=== PATIENT | male | born 1985 | race Caucasian/White ===

== ENCOUNTER 2020-06-11 21:10 | Inpatient (IN) | payer MEDICAID, SELFPAY ==
[2020-06-21 03:15] VITALS: BMI 19.9
[2020-06-21] MEDS: Enoxaparin Sodium 60 MG/0.6 ML SYRINGE SUBCUT (23:00)
[2020-06-22] VITALS (8 sets, daily range): BP systolic 121–166; BP diastolic 60–81; PULSE 9–114; RESP 18–93; TEMP 36.7–37; O2SAT 96–98
[2020-06-22] MEDS: ceFAZolin Sodium/Dextrose,Iso 2 GM/50 ML PIGGYBACK IV ×3 (05:10→21:46)
[2020-06-22] MEDS: Omeprazole 20 MG CAPSULE.DR PO ×2 (05:10→16:18)
[2020-06-22] MEDS: 0.9 % Sodium Chloride Flush 3 ML SYRINGE 2 ML IVFLUSH ×4 (05:12→20:26)
[2020-06-22] MEDS: Nicotine Polacrilex 2 MG GUM BUCCAL ×5 (05:20→20:17)
[2020-06-22] MEDS: traMADoL HCL 50 MG TABLET PO ×4 (05:20→22:28)
[2020-06-22 06:41] LABS: MANUAL DIFF FLAG NO
[2020-06-22 06:49] LABS: Basophils Percent Auto 0.3 % (0-2); Eosinophils Percent Auto 0.3 % (0-4); Hematocrit 33.4 % (42-52); Hemoglobin 10.7 g/dl (14.0-18.0); Imm Gran Abs Auto 0.07 X10*3/uL (0.00-0.03); Imm Gran Pct Auto 0.6 % (0.0-0.4); Lymphocytes Absolute Auto 1.7 X10*3/uL (1.2-4.9); Lymphocytes Percent Auto 14.4 % (20-40); Mean Corpuscular Hemoglobin 27.6 pg (27.0-33.0); Mean Corpuscular Volume 86.1 fL (80-98); Mean Platelet Volume 8.8 fL (9.4-12.4); Monocytes Absolute Auto 0.9 X10*3/uL (0.1-1.2); Monocytes Percent Auto 7.2 % (2-11); Neutrophils Absolute Auto 9.1 X10*3/uL (2.0-8.3); Neutrophils Percent Auto 77.2 % (45-73); Platelet Count 531 X10*3/uL (160-400); Red Blood Count 3.88 X10*6/uL (4.60-5.80); Red Cell Distribution Width 13.5 % (11.0-16.0); White Blood Count 11.7 X10*3/uL (4.8-10.8)
[2020-06-22] MEDS: Buprenorphine/Naloxone 8/2 mg FILM 1 FILM SUBLINGUAL ×2 (08:08→16:18)
[2020-06-22] MEDS: Amphetamine Mixed Salts 20 MG TABLET PO ×2 (08:08→12:35)
[2020-06-22] MEDS: buPROPion HCl XL 150 MG TAB.ER.24H PO (08:08)
[2020-06-22] MEDS: Lidocaine 4 % Patch ADH..PATCH 1 PATCH TRANSDERMA (08:08)
[2020-06-22] MEDS: Docusate Sodium 100 MG CAPSULE PO (08:08)
[2020-06-22] MEDS: Gabapentin 600 MG TABLET PO ×3 (08:08→20:17)
[2020-06-22] MEDS: Ketorolac Tromethamine 30 MG/ML VIAL IVPUSH (10:26)
[2020-06-22] MEDS: Enoxaparin Sodium 60 MG/0.6 ML SYRINGE SUBCUT ×2 (12:34→22:31)
--- NOTE | 2020-06-22 13:16 | HO.POSTANES ---
Post Anesthesia Evaluation Post Anesthesia Evaluation Vital Signs: Vital Signs Temp Pulse Resp BP Pulse Ox 06/22/20 12:00 98.2 F 97 18 136/76 97 06/22/20 08:00 98.0 F 107 H 20 134/81 96 06/22/20 04:00 98.1 F 106 H 18 121/77 96 Anesthesia: General LMA Mental Status: Awake Pain Control: Satisfactory Nausea/Vomiting: None Hydration: Adequate Anesthesia-Related Issues: No Anes. Related Issues
--- NOTE | 2020-06-22 15:07 | HO.PM.IMPN ---
Subjective Subjective Date of Service: 06/22/20 Interval History: patient seen and examined at bedside patient reported knee pain Constitutional Constitutional: Reports weakness Respiratory Respiratory: Reports no additional respiratory complaints Neurologic Neurologic: Reports weakness Physical Exam Vital Signs and I&O and Narrative: Vital Signs and I&O: Vital Signs Temp 98.2 F 06/22/20 12:00 Pulse 97 06/22/20 12:00 Resp 18 06/22/20 12:00 BP 136/76 06/22/20 12:00 Pulse Ox 97 06/22/20 12:00 Intake & Output 06/21/20 06/22/20 06/22/20 18:59 06:59 18:59 Intake Total 50 / 50 1200 / 1200 Output Total 200 / 200 2400 / 2400 Balance -150 / -150 -1200 / -1200 Urine Output (Aver age ml/kg/hr) 0.28 3.37 Intake: Intake, Oral [place] unt 1200 / 1200 Intake, IV Amoun t 50 / 50 0 / 0 ceFAZolin Sodi um/Dextrose,Iso 2 50 / 50 0 / 0 gm In 50 ml @ 100 mls/hr IV Q8H ERNA Rx#:[id number] Output: Output, Urine Am ount 200 / 200 2400 / 2400 Other: Breakfast % Eate n 100% Lunch % Eaten 100% Evening Snack % Eaten 100 Body Mass Index 19.9 Objective Data Current Medications Generic Name Dose Route Start Last Admin Trade Name Freq PRN Reason Stop Dose Admin Acetaminophen 650 mg 06/22/20 00:00 Acetaminophen 325 Mg Tablet PO Q8H PRN Pain, Moderate (Pain Scale 4-6 Amphetamine/Dextroamphetamine 20 mg 06/22/20 08:00 06/22/20 12:35 Amphetamine Mixed Salts 20 Mg Tablet PO 20 mg BID@0800,1400 ERNA Administration Buprenorphine/Naloxone 1 film 06/22/20 08:00 06/22/20 08:08 Buprenorphine/Naloxone 8/2 Mg Film SUBLINGUAL 1 film BID@0800,1700 ERNA Administration Bupropion HCl 150 mg 06/22/20 09:00 06/22/20 08:08 Bupropion Hcl Xl 150 Mg Tab.Er.24h PO 150 mg DAILY ERNA Administration Clonidine HCl 0.1 mg 06/22/20 21:00 Clonidine Hcl 0.1 Mg Tablet PO BEDTIME ERNA Docusate Sodium 100 mg 06/22/20 09:00 06/22/20 08:08 Docusate Sodium 100 Mg Capsule PO 100 mg DAILY ERNA Administration Enoxaparin Sodium 60 mg 06/22/20 00:00 06/22/20 12:34 Enoxaparin Sodium 60 Mg/0.6 Ml Syringe SUBCUT 60 mg Q12H ERNA Administration Gabapentin 600 mg 06/22/20 09:00 06/22/20 14:36 Gabapentin 600 Mg Tablet PO 600 mg TID [facility] Administration Cefazolin Sodium/Dextrose 2 gm in 50 mls @ 100 mls/hr 06/22/20 04:00 06/22/20 14:49 Ancef IV 100 mls/hr Q8H [facility] Infusion Lidocaine 1 patch 06/22/20 09:00 06/22/20 08:08 Lidocaine 4 % Patch Adh..Patch TRANSDERMA 1 patch DAILY ERNA Administration Protocol Magnesium Hydroxide 30 ml 06/22/20 00:00 Milk Of Magnesia 30 Ml Oral.Susp PO DAILY PRN Constipation Nicotine Polacrilex 2 mg 06/22/20 00:00 06/22/20 12:44 Nicotine Polacrilex 2 Mg Gum BUCCAL 2 mg Q2H PRN Administration Nicotine Cravings Omeprazole 20 mg 06/22/20 06:30 06/22/20 05:10 Omeprazole 20 Mg Capsule.Dr PO 20 mg BID@0630,1630 [facility] Administration Polyethylene Glycol 17 gm 06/22/20 09:00 06/22/20 10:25 Polyethylene Glycol 3350 17 Gm Powd.Pack PO Not Given DAILY [facility] Quetiapine Fumarate 200 mg 06/22/20 21:00 Quetiapine Fumarate 200 Mg Tablet PO BEDTIME [facility] Sodium Chloride 2 ml 06/22/20 00:00 06/22/20 14:36 0.9 % Sodium Chloride Flush 3 Ml Syringe IVFLUSH 2 ml QSHIFT [facility] Administration Tramadol HCl 50 mg 06/22/20 00:00 06/22/20 10:29 Tramadol Hcl 50 Mg Tablet PO 50 mg Q6H PRN Administration Pain, Moderate (Pain Scale 4-6 Labs CBC & Chem 7: 06/22/20 06:00 06/21/20 08:15 Labs: Laboratory Results - last 24 hr 06/19/20 06/19/20 06/21/20 05:52 05:52 08:15 MCV 86.2 MCH 27.0 MCHC 31.4 RDW RDW Coeff of [place] 14.2 Plt Count 567 H D MPV 8.3 L Immature Gran % (Auto) Neut % (Auto) Lymph % (Auto) [place] % (Auto) Eos % (Auto) Baso % (Auto) Neut # (Auto) Lymph # (Auto) [place] # (Auto) Eos # (Auto) Baso # (Auto) Abs Immat Gran (auto) Absolute Lymphs (auto) Absolute Monos (auto) Absolute Eos (auto) Absolute Basos (auto) Absolute Nucleated RBC 0.000 Nucleated RBC % (auto) 0.0 Absolute Neutrophils Smear Tech's Comments Bicarbonate 26 24 Anion Gap 11 L 13 Estimated Creat Clear 151.2 138.7 Est GFR (Non-Af Amer) > 60 > 60 Random Glucose 90 119 H Calcium 8.6 D 06/21/20 06/22/20 06/22/20 08:15 05:43 06:00 MCV 86.2 86.1 Not Rcvd MCH 27.6 27.6 Not Rcvd MCHC 32.0 32.0 Not Rcvd RDW 13.5 RDW Coeff of [place] 13.8 Not Rcvd Plt Count 609 H 531 H Not Rcvd MPV 8.6 L 8.8 L Not Rcvd Immature Gran % (Auto) 1.1 H 0.6 H Not Rcvd Neut % (Auto) 88.0 H 77.2 H Not Rcvd Lymph % (Auto) 6.5 L 14.4 L Not Rcvd [place] % (Auto) 3.9 7.2 Not Rcvd Eos % (Auto) 0.3 0.3 Not Rcvd Baso % (Auto) 0.2 0.3 Not Rcvd Neut # (Auto) 9.1 H Lymph # (Auto) 1.7 [place] # (Auto) 0.9 Eos # (Auto) 0.0 Baso # (Auto) 0.0 Abs Immat Gran (auto) 0.26 H 0.07 H Not Rcvd Absolute Lymphs (auto) 1.6 Not Rcvd Absolute Monos (auto) 1.0 Not Rcvd Absolute Eos (auto) 0.1 Not Rcvd Absolute Basos (auto) 0.1 Not Rcvd Absolute Nucleated RBC 0.000 0.000 Not Rcvd Nucleated RBC % (auto) 0.0 0.0 Not Rcvd Absolute Neutrophils 21.7 H Smear Tech's Comments VERIFIED Bicarbonate Anion Gap Estimated Creat Clear Est GFR (Non-Af Amer) Random Glucose Calcium
[2020-06-22] MEDS: Acetaminophen 325 MG TABLET 650 MG PO (16:16)
[2020-06-22] MEDS: cloNIDine HCL 0.1 MG TABLET PO (20:15)
[2020-06-22] MEDS: QUEtiapine Fumarate 200 MG TABLET PO (20:17)
[2020-06-22] MEDS: Ketorolac Tromethamine 15 MG/ML VIAL IV (21:45)
--- NOTE | 2020-06-22 21:59 | PM.PNORT ---
Subjective Subjective Interval history: patient seen and examined at bedside with Dr Cortez. patient reported knee pain, states he has been attempting to get out of bed to ambulate to the bathroom with walker but has diff with applying weight to the lower ext. and has diff lifting or bending the knee. <Lise Cisneros PA-C Last Filed: 06/22/20 22:04> Physical Exam Vital Signs and I&O and Narrative: Vital Signs and I&O: Vital Signs Temp 98.2 F 06/22/20 20:00 Pulse 94 06/22/20 20:15 Resp 20 06/22/20 20:00 BP 134/78 06/22/20 20:15 Pulse Ox 98 06/22/20 20:00 Intake & Output 06/22/20 06/22/20 06/23/20 06:59 18:59 06:59 Intake Total 50 / 50 1930 / 1930 Output Total 200 / 200 2900 / 2900 Balance -150 / -150 -970 / -970 Urine Output (Aver age ml/kg/hr) 0.28 4.07 Intake: Intake, Oral [place] unt 1879 / 1879 Intake, IV Amoun t 50 / 50 50 / 50 ceFAZolin Sodi um/Dextrose,Iso 2 50 / 50 50 / 50 gm In 50 ml @ 100 mls/hr IV Q8H [facility] Rx#:[id number] Output: Output, Urine Am ount 200 / 200 2900 / 2900 Other: Breakfast % Eate n 100% Lunch % Eaten 100% Evening Snack % Eaten 100 Urine Color Yellow Body Mass Index 19.9 <Lise iCsneros PA-C Last Filed: 06/22/20 22:04> Resp: Effort & Inspection: normal respiratory effort and able to speak in complete sentences <Lise Cisneros PA-C Last Filed: 06/22/20 22:04> Cardio: Peripheral pulses: Peripheral pulses 2+ throughout <Lise Cisneros PA-C Last Filed: 06/22/20 22:04> GI: Palpation (GI): Soft to palpation <Lise Cisneros PA-C Last Filed: 06/22/20 22:04> Extrem: Other: Left knee sutures intact. Minimal swelling no purulance. No warmth or erythema. PROM intact, diff with AROM. Calf supple non tender. <RoberJulianCarin Cisneros PA-C - Last Filed: 06/22/20 22:04> Progress Note: A&P Assessment and plan (1) Effusion, left knee: Status: Acute <RoberDhavalalexander Cisneros PA-C - Last Filed: 06/22/20 22:04> Assessment and Plan: Cont working on ROM of the knee, PT eval in place Cultures negative Dispo-planning per medical status <RoberJulianCarin Cisneros PA-C - Last Filed: 06/22/20 22:04> Fall Risk Details Current Medications: Current Medications Generic Name Dose Route Start Last Admin Trade Name Freq PRN Reason Stop Dose Admin Acetaminophen 650 mg 06/22/20 00:00 06/22/20 16:16 Acetaminophen 325 Mg Tablet PO 650 mg Q8H PRN Administration Pain, Moderate (Pain Scale 4-6 Amphetamine/Dextroamphetamine 20 mg 06/22/20 08:00 06/22/20 12:35 Amphetamine Mixed Salts 20 Mg Tablet PO 20 mg BID@0800,1400 ERNA Administration Buprenorphine/Naloxone 1 film 06/22/20 08:00 06/22/20 16:18 Buprenorphine/Naloxone 8/2 Mg Film SUBLINGUAL 1 film BID@0800,1700 E[facility] Administration Bupropion HCl 150 mg 06/22/20 09:00 06/22/20 08:08 Bupropion Hcl Xl 150 Mg Tab.Er.24h PO 150 mg DAILY E[facility] Administration Clonidine HCl 0.1 mg 06/22/20 21:00 06/22/20 20:15 Clonidine Hcl 0.1 Mg Tablet PO 0.1 mg BEDTIME [facility] Administration Docusate Sodium 100 mg 06/22/20 09:00 06/22/20 08:08 Docusate Sodium 100 Mg Capsule PO 100 mg DAILY E[facility] Administration Enoxaparin Sodium 60 mg 06/22/20 00:00 06/22/20 12:34 Enoxaparin Sodium 60 Mg/0.6 Ml Syringe SUBCUT 60 mg Q12H ERNA Administration Gabapentin 600 mg 06/22/20 09:00 06/22/20 20:17 Gabapentin 600 Mg Tablet PO 600 mg TID ERNA Administration Cefazolin Sodium/Dextrose 2 gm in 50 mls @ 100 mls/hr 06/22/20 04:00 06/22/20 21:46 Ancef IV 100 mls/hr Q8H E[facility] Administration Ketorolac Tromethamine 15 mg 06/22/20 20:00 06/22/20 21:45 Ketorolac Tromethamine 15 Mg/Ml Vial IV 15 mg Q6H [facility] Administration Lidocaine 1 patch 06/22/20 09:00 06/22/20 08:08 Lidocaine 4 % Patch Adh..Patch TRANSDERMA 1 patch DAILY [facility] Administration Protocol Magnesium Hydroxide 30 ml 06/22/20 00:00 Milk Of Magnesia 30 Ml Oral.Susp PO DAILY PRN Constipation Nicotine Polacrilex 2 mg 06/22/20 00:00 06/22/20 20:17 Nicotine Polacrilex 2 Mg Gum BUCCAL 2 mg Q2H PRN Administration Nicotine Cravings Omeprazole 20 mg 06/22/20 06:30 06/22/20 16:18 Omeprazole 20 Mg Capsule.Dr PO 20 mg BID@0630,1630 ERNA Administration Polyethylene Glycol 17 gm 06/22/20 09:00 06/22/20 10:25 Polyethylene Glycol 3350 17 Gm Powd.Pack PO Not Given DAILY [facility] Quetiapine Fumarate 200 mg 06/22/20 21:00 06/22/20 20:17 Quetiapine Fumarate 200 Mg Tablet PO 200 mg BEDTIME [facility] Administration Sodium Chloride 2 ml 06/22/20 00:00 06/22/20 20:26 0.9 % Sodium Chloride Flush 3 Ml Syringe IVFLUSH 2 ml QSHIFT [facility] Administration Tramadol HCl 50 mg 06/22/20 00:00 06/22/20 17:13 Tramadol Hcl 50 Mg Tablet PO 50 mg Q6H PRN Administration Pain, Moderate (Pain Scale 4-6 <Lise Cisneros PA-C - Last Filed: 06/22/20 22:04> Time Spent With Patient Time: Total time spent is greater than 50% in coordination of care (as documented) at patient's floor/unit and/or counseling patient: <SUSAN Schneider Last Filed: 06/22/20 22:04> Time with patient: 15 - 24 minutes <SUSAN Schneider Last Filed: 06/22/20 22:04> Progress Note: Quality VTE Deep Vein Thrombosis/Pulmonary Embolism Present on Admission: No <Lise Cisneros PA-C - Last Filed: 06/22/20 22:04>
[2020-06-22] MEDS: Morphine Sulfate 4 MG/ML CARTRIDGE IVPUSH (22:53)
[2020-06-23] VITALS (7 sets, daily range): BP systolic 133–158; BP diastolic 70–97; PULSE 97–120; RESP 18–25; TEMP 35.6–37.3; O2SAT 95–99
--- NOTE | 2020-06-23 | MR_ITS ---
EXAMINATION: MR KNEE WITHOUT CONTRAST, LEFT CLINICAL INFORMATION: Left knee effusion. COMPARISON: None TECHNIQUE: MRI of the knee without contrast was performed using routine sequences on a high-field scanner. There is motion artifact on multiple sequences. FINDINGS: MENISCI: Medial Meniscus: Difficult to evaluate due to motion artifact. Possible subtle inner margin undersurface tear of the posterior horn. Lateral Meniscus: Intact LIGAMENTS: Cruciate: Intact Collateral: The medial and lateral collateral ligaments are intact. There is a small defect in the lateral patellofemoral retinacular complex. There is some focal edema in the proximal lateral head of the gastrocnemius muscle and the popliteus muscle which may be reactive or mild strains. EXTENSOR MECHANISM: Intact ARTICULAR CARTILAGE/BONE: Patellofemoral Compartment: The cartilage is grossly intact. Medial Compartment: There is patchy mild cartilage irregularity and thinning in the weightbearing medial compartment. Lateral Compartment: The cartilage is grossly intact. JOINT FLUID AND BURSAE: There is diffuse distention of the joint with a severe synovial process. There is lobulated heterogeneous signal intensity demonstrating areas of low and high T1 and T2-weighted signal intensity. The regions of high T2 signal intensity, particularly identified on the T1-weighted images, may represent hemorrhage. There is focal extension of this process in the lateral subcutaneous tissues through the small defect in the lateral patellofemoral retinaculum. There is moderate diffuse subcutaneous edema, particularly anteriorly. IMPRESSION: 1. Diffuse severe synovial process which may be related to synovial hyperplasia from an underlying inflammatory arthropathy or a synovial neoplasm. There is some focal extension of this process through a small defect in the lateral patellofemoral retinaculum. High T1 and T2 signal intensity regions may represent hemorrhage. 2. Difficult evaluation due to motion artifact but there may be a subtle inner margin undersurface tear of the posterior horn of the medial meniscus. 3. Mild arthrosis in the weightbearing medial compartment.
--- NOTE | 2020-06-23 00:38 | PC.NURSE ---
Pt c/o 10/10 knife like pain to left knee with swelling and tingling of the toes. He reports that his swelling is worsening. Pt able to move toes and had positive equal pedal and posterior tibial pulses bilaterally. Hospitalist notified and 4mg Morphine Sulfate ordered/given. Hospitalist at bedside for evaluation. Surgeon contacted with photo of knee provided via [employer] connect. No new orders at this time. Pt now sleeping after morphine admin and in general appears more comfortable. Knee girth measured at 41.5cm.
[2020-06-23] MEDS: Ketorolac Tromethamine 15 MG/ML VIAL IV ×2 (03:02→07:30)
[2020-06-23] MEDS: ceFAZolin Sodium/Dextrose,Iso 2 GM/50 ML PIGGYBACK IV ×3 (03:03→19:40)
[2020-06-23] MEDS: Nicotine Polacrilex 2 MG GUM BUCCAL ×6 (03:05→22:14)
[2020-06-23] MEDS: traMADoL HCL 50 MG TABLET PO (03:05)
[2020-06-23] MEDS: polyethylene glycoL 3350 17 GM POWD.PACK PO (07:41)
[2020-06-23] MEDS: Docusate Sodium 100 MG CAPSULE PO (07:42)
[2020-06-23] MEDS: Amphetamine Mixed Salts 20 MG TABLET PO ×2 (07:42→13:32)
[2020-06-23] MEDS: Gabapentin 600 MG TABLET PO ×3 (07:42→21:25)
[2020-06-23] MEDS: buPROPion HCl XL 150 MG TAB.ER.24H PO (07:42)
[2020-06-23] MEDS: Lidocaine 4 % Patch ADH..PATCH 1 PATCH TRANSDERMA (07:53)
--- NOTE | 2020-06-23 08:29 | PM.PNORT ---
Subjective Subjective Interval history: patient seen and examined, he is sitting in chair, states he worked with PT yesterday and then he had increased pain at night. He continues to perseverate on pain. Denies cp, sob, palpitations. Physical Exam Vital Signs and I&O and Narrative: Vital Signs and I&O: Vital Signs Temp 96.1 F L 06/23/20 07:29 Pulse 109 H 06/23/20 07:29 Resp 18 06/23/20 07:29 BP 138/84 06/23/20 07:29 Pulse Ox 97 06/23/20 07:29 Intake & Output 06/22/20 06/23/20 06/23/20 18:59 06:59 18:59 Intake Total 193 / 2029 100 / 2030 Output Total 2900 / 3650 750 / 3650 Balance -970 / -1620 -650 / -1620 Urine Output (Aver age ml/kg/hr) 4.07 1.05 Intake: Intake, Oral [place] unt 1879 / 1879 Intake, IV Amoun t 50 / 150 100 / 150 ceFAZolin Sodi um/Dextrose,Iso 2 50 / 150 100 / 150 gm In 50 ml @ 100 mls/hr IV Q8H [facility] Rx#:[id number] Output: Output, Urine Am ount 2900 / 3650 750 / 3650 Other: Meal Refused No NPO No Breakfast % Eate n 100% Lunch % Eaten 100% Dinner % Eaten 75% Evening Snack % Eaten 100 Urine Urinal Urine Color Yellow Body Mass Index 19.9 Extrem: Other: sutures intact, no erythema or warmth, mild edema. calf supple non tender. Progress Note: A&P Assessment and plan (1) Effusion, left knee: Status: Acute Assessment and Plan: Continue with PT, ROM and quad strength, gait training Fall Risk Details Current Medications: Current Medications Generic Name Dose Route Start Last Admin Trade Name Freq PRN Reason Stop Dose Admin Acetaminophen 650 mg 06/22/20 00:00 06/22/20 16:16 Acetaminophen 325 Mg Tablet PO 650 mg Q8H PRN Administration Pain, Moderate (Pain Scale 4-6 Amphetamine/Dextroamphetamine 20 mg 06/22/20 08:00 06/23/20 07:42 Amphetamine Mixed Salts 20 Mg Tablet PO 20 mg BID@0800,1400 ERNA Administration Buprenorphine/Naloxone 1 film 06/22/20 08:00 06/23/20 07:48 Buprenorphine/Naloxone 8/2 Mg Film SUBLINGUAL Not Given BID@0800,1700 ERNA Bupropion HCl 150 mg 06/22/20 09:00 06/23/20 07:42 Bupropion Hcl Xl 150 Mg Tab.Er.24h PO 150 mg DAILY E[facility] Administration Clonidine HCl 0.1 mg 06/22/20 21:00 06/22/20 20:15 Clonidine Hcl 0.1 Mg Tablet PO 0.1 mg BEDTIME [facility] Administration Docusate Sodium 100 mg 06/22/20 09:00 06/23/20 07:42 Docusate Sodium 100 Mg Capsule PO 100 mg DAILY ERNA Administration Enoxaparin Sodium 60 mg 06/22/20 00:00 06/22/20 22:31 Enoxaparin Sodium 60 Mg/0.6 Ml Syringe SUBCUT 60 mg Q12H [facility] Administration Gabapentin 600 mg 06/22/20 09:00 06/23/20 07:42 Gabapentin 600 Mg Tablet PO 600 mg TID ERNA Administration Cefazolin Sodium/Dextrose 2 gm in 50 mls @ 100 mls/hr 06/22/20 04:00 06/23/20 03:40 Ancef IV Infused Q8H [facility] Infusion Ketorolac Tromethamine 15 mg 06/22/20 20:00 06/23/20 03:02 Ketorolac Tromethamine 15 Mg/Ml Vial IV 15 mg Q6H [facility] Administration Lidocaine 1 patch 06/22/20 09:00 06/23/20 07:53 Lidocaine 4 % Patch Adh..Patch TRANSDERMA 1 patch DAILY E[facility] Administration Protocol Magnesium Hydroxide 30 ml 06/22/20 00:00 Milk Of Magnesia 30 Ml Oral.Susp PO DAILY PRN Constipation Nicotine Polacrilex 2 mg 06/22/20 00:00 06/23/20 03:05 Nicotine Polacrilex 2 Mg Gum BUCCAL 2 mg Q2H PRN Administration Nicotine Cravings Omeprazole 20 mg 06/22/20 06:30 06/23/20 06:31 Omeprazole 20 Mg Capsule.Dr PO Not Given BID@0630,1630 ERNA Polyethylene Glycol 17 gm 06/22/20 09:00 06/23/20 07:41 Polyethylene Glycol 3350 17 Gm Powd.Pack PO 17 gm DAILY [facility] Administration Quetiapine Fumarate 200 mg 06/22/20 21:00 06/22/20 20:17 Quetiapine Fumarate 200 Mg Tablet PO 200 mg BEDTIME [facility] Administration Sodium Chloride 2 ml 06/22/20 00:00 06/22/20 20:26 0.9 % Sodium Chloride Flush 3 Ml Syringe IVFLUSH 2 ml QSHIFT [facility] Administration Tramadol HCl 50 mg 06/22/20 00:00 06/23/20 03:05 Tramadol Hcl 50 Mg Tablet PO 50 mg Q6H PRN Administration Pain, Moderate (Pain Scale 4-6 Time Spent With Patient Time: Total time spent is greater than 50% in coordination of care (as documented) at patient's floor/unit and/or counseling patient: Time with patient: 15 - 24 minutes Progress Note: Quality VTE Deep Vein Thrombosis/Pulmonary Embolism Present on Admission: No
[2020-06-23 09:54] LABS: MANUAL DIFF FLAG NO
[2020-06-23 10:04] LABS: Basophils Percent Auto 0.3 % (0-2); Eosinophils Percent Auto 0.3 % (0-4); Hematocrit 32.8 % (42-52); Hemoglobin 10.6 g/dl (14.0-18.0); Imm Gran Abs Auto 0.06 X10*3/uL (0.00-0.03); Imm Gran Pct Auto 0.5 % (0.0-0.4); Lymphocytes Absolute Auto 1.2 X10*3/uL (1.2-4.9); Lymphocytes Percent Auto 10.3 % (20-40); Mean Corpuscular HGB Conc 32.3 g/dl (31.0-36.0); Mean Corpuscular Hemoglobin 27.7 pg (27.0-33.0); Mean Corpuscular Volume 85.9 fL (80-98); Monocytes Absolute Auto 0.9 X10*3/uL (0.1-1.2); Monocytes Percent Auto 7.5 % (2-11); Neutrophils Absolute Auto 9.4 X10*3/uL (2.0-8.3); Neutrophils Percent Auto 81.1 % (45-73); Platelet Count 582 X10*3/uL (160-400); Red Blood Count 3.82 X10*6/uL (4.60-5.80); Red Cell Distribution Width 13.2 % (11.0-16.0); White Blood Count 11.5 X10*3/uL (4.8-10.8)
[2020-06-23] MEDS: 0.9 % Sodium Chloride Flush 3 ML SYRINGE 2 ML IVFLUSH ×2 (10:34→15:31)
[2020-06-23 10:39] LABS: Alanine Aminotransferase 21 U/L (0-40); Albumin Level 2.8 g/dL (3.5-5.0); Alkaline Phosphatase 97 U/L (39-117); Anion Gap 10 (12-20); Aspartate Amino Transferase 24 U/L (5-37); Bilirubin Total 0.2 mg/dL (0.0-1.0); Calcium 8.6 mg/dL (8.4-10.2); Carbon Dioxide 29 mmol/L (22-29); Chloride 98 mmol/L (96-108); Estimated Glomerular Filt Rate > 60; Glucose Random 110 mg/dL (60-115); Potassium 4.4 mmol/l (3.3-5.1); Sodium 133 mmol/L (135-145); Total Protein 8.2 g/dL (6.5-8.0)
[2020-06-23 10:40] LABS: Blood Urea Nitrogen 18 mg/dL (9-16)
[2020-06-23] MEDS: HYDROmorphone HCl 0.5 MG/0.5 ML SYRINGE IVPUSH ×2 (10:52→14:44)
[2020-06-23] MEDS: oxyCODONE HCl Immed Release 5 MG TABLET PO ×2 (12:17→20:07)
[2020-06-23] MEDS: Enoxaparin Sodium 60 MG/0.6 ML SYRINGE SUBCUT (12:21)
--- NOTE | 2020-06-23 14:31 | P.PNIM_ITS ---
Subjective Subjective Date of Service: 06/22/20 Interval History: patient seen and examined at bedside patient still reporting significant knee pain and swelling pain not controlled Constitutional Constitutional: Reports weakness Respiratory Respiratory: Reports no additional respiratory complaints Neurologic Neurologic: Reports weakness Physical Exam Vital Signs and I&O and Narrative: Vital Signs and I&O: Vital Signs Temp 98.2 F 06/23/20 11:53 Pulse 106 H 06/23/20 11:53 Resp 18 06/23/20 11:53 BP 149/81 H 06/23/20 11:53 Pulse Ox 95 06/23/20 11:53 Intake & Output 06/22/20 06/23/20 06/23/20 18:59 06:59 18:59 Intake Total 193 / 2029 100 / 2030 290 / 290 Output Total 2900 / 3650 750 / 3650 400 / 400 Balance -970 / -1620 -650 / -1620 -110 / -110 Urine Output (Aver age ml/kg/hr) 4.07 1.05 0.56 Intake: Intake, Oral [place] unt 1879 / 1879 240 / 240 Intake, IV Amoun t 50 / 150 100 / 150 50 / 50 ceFAZolin Sodi um/Dextrose,Iso 2 50 / 150 100 / 150 50 / 50 gm In 50 ml @ 100 mls/hr IV Q8H [facility] Rx#:[id number] Output: Output, Urine Am ount 2900 / 3650 750 / 3650 400 / 400 Other: Meal Refused No No NPO No No Breakfast % Eate n 100% 100% Lunch % Eaten 100% Dinner % Eaten 75% Evening Snack % Eaten 100 Urine Urinal Urinal Urine Color Yellow Yellow Body Mass Index 19.9 Objective Data Current Medications Generic Name Dose Route Start Last Admin Trade Name Freq PRN Reason Stop Dose Admin Acetaminophen 650 mg 06/22/20 00:00 06/22/20 16:16 Acetaminophen 325 Mg Tablet PO 650 mg Q8H PRN Administration Pain, Moderate (Pain Scale 4-6 Amphetamine/Dextroamphetamine 20 mg 06/22/20 08:00 06/23/20 13:32 Amphetamine Mixed Salts 20 Mg Tablet PO 20 mg BID@0800,1400 ERNA Administration Bupropion HCl 150 mg 06/22/20 09:00 06/23/20 07:42 Bupropion Hcl Xl 150 Mg Tab.Er.24h PO 150 mg DAILY ERNA Administration Clonidine HCl 0.1 mg 06/22/20 21:00 06/22/20 20:15 Clonidine Hcl 0.1 Mg Tablet PO 0.1 mg BEDTIME [facility] Administration Docusate Sodium 100 mg 06/22/20 09:00 06/23/20 07:42 Docusate Sodium 100 Mg Capsule PO 100 mg DAILY E[facility] Administration Enoxaparin Sodium 60 mg 06/22/20 00:00 06/23/20 12:21 Enoxaparin Sodium 60 Mg/0.6 Ml Syringe SUBCUT 60 mg Q12H E[facility] Administration Gabapentin 600 mg 06/22/20 09:00 06/23/20 13:32 Gabapentin 600 Mg Tablet PO 600 mg TID ERNA Administration Hydromorphone HCl 0.5 mg 06/23/20 10:41 06/23/20 10:52 Hydromorphone Hcl 0.5 Mg/0.5 Ml Syringe IVPUSH 0.5 mg Q4H PRN Administration Pain, Severe (Pain Scale 7-10) Cefazolin Sodium/Dextrose 2 gm in 50 mls @ 100 mls/hr 06/22/20 04:00 06/23/20 13:57 Ancef IV Infused Q8H [facility] Infusion Lidocaine 1 patch 06/22/20 09:00 06/23/20 07:53 Lidocaine 4 % Patch Adh..Patch TRANSDERMA 1 patch DAILY [facility] Administration Protocol Magnesium Hydroxide 30 ml 06/22/20 00:00 Milk Of Magnesia 30 Ml Oral.Susp PO DAILY PRN Constipation Nicotine Polacrilex 2 mg 06/22/20 00:00 06/23/20 13:32 Nicotine Polacrilex 2 Mg Gum BUCCAL 2 mg Q2H PRN Administration Nicotine Cravings Omeprazole 20 mg 06/22/20 06:30 06/23/20 06:31 Omeprazole 20 Mg Capsule.Dr PO Not Given BID@0630,1630 ERNA Oxycodone HCl 5 mg 06/23/20 10:42 06/23/20 12:17 Oxycodone Hcl Immed Release 5 Mg Tablet PO 5 mg Q4H PRN Administration Pain, Moderate (Pain Scale 4-6 Polyethylene Glycol 17 gm 06/22/20 09:00 06/23/20 07:41 Polyethylene Glycol 3350 17 Gm Powd.Pack PO 17 gm DAILY E[facility] Administration Quetiapine Fumarate 200 mg 06/22/20 21:00 06/22/20 20:17 Quetiapine Fumarate 200 Mg Tablet PO 200 mg BEDTIME E[facility] Administration Sodium Chloride 2 ml 06/22/20 00:00 06/23/20 10:34 0.9 % Sodium Chloride Flush 3 Ml Syringe IVFLUSH 2 ml QSHIFT E[facility] Administration Labs CBC & Chem 7: 06/23/20 09:35 06/23/20 09:35 Labs: Laboratory Results - last 24 hr 06/23/20 06/23/20 09:35 09:35 MCV 85.9 MCH 27.7 MCHC 32.3 RDW 13.2 Plt Count 582 H MPV 8.0 L Immature Gran % (Auto) 0.5 H Neut % (Auto) 81.1 H Lymph % (Auto) 10.3 L [place] % (Auto) 7.5 Eos % (Auto) 0.3 Baso % (Auto) 0.3 Neut # (Auto) 9.4 H Lymph # (Auto) 1.2 [place] # (Auto) 0.9 Eos # (Auto) 0.0 Baso # (Auto) 0.0 Abs Immat Gran (auto) 0.06 H Absolute Nucleated RBC 0.000 Nucleated RBC % (auto) 0.0 Anion Gap 10 L Estim Creat Clear Calc 142.0 Estimated GFR > 60 Random Glucose 110 Calcium 8.6 Total Bilirubin 0.2 AST 24 ALT 21 Alkaline Phosphatase 97 Total Protein 8.2 H Albumin 2.8 L Quality VTE Deep Vein Thrombosis/Pulmonary Embolism Present on Admission: No Assessment and Plan (1) Sepsis: Status: Acute (2) Septic pulmonary embolism: Status: Acute (3) Septic arthritis of knee: Status: Acute (4) Streptococcal bacteremia: Status: Acute Assessment and Plan: Sepsis secondary to strep bacteremia with IV drug use with septic arthritis and septic pulmonary emboli continue IV Kefzol D11 total duration 6 weeks id and orthopedic following following septic arthritis knee status post arthroscopic lavage on 06/20 Still significant knee pain and swelling plan for arthrocentesis again today continue IV antibiotics ortho following still complaining of knee pain and stiffness pain not controlled will start IV Dilaudid given significant pain and not able to participate in physical therapy will stop Toradol encouraged to work with PT IV drug abuse on suboxone discussed with Daphney colón to give Suboxone and continue IV narcotics for pain medication given significant pain and not controlled upper extremity DVT continue Lovenox DVT prophylaxis with Lovenox
--- NOTE | 2020-06-23 14:32 | MHC.CM.PN ---
JESSICA Alfaro for LT IV ABX via BLS
--- NOTE | 2020-06-23 14:32 | PC.NURSE ---
Pain management very difficult. knee pain 10/10 medicated with dilaudid and oxycodone. pt feels that he is going to withdraw from suboxone. Dr Gaviria made aware. Dr Harris also tried to reassure and educate pt.
[2020-06-23] MEDS: HYDROmorphone HCl 1 MG/ML SYRINGE IVPUSH ×2 (15:27→19:36)
[2020-06-23] MEDS: LORazepam 2 MG/ML VIAL 0.25 MG IVPUSH (15:42)
--- NOTE | 2020-06-23 16:43 | PM.PSYCN ---
History of Present Illness Chief Complaint: Severe Sepsis Secondary To Suspected Endocarditis Reason for Consult: Follow up addiction consult Requesting physician: Alfonso Gaviria Discussed with referring provider: Yes Sources of Information: patient interviewed and chart reviewed HPI Narrative: Pt seen in follow up. Previosuly seen by this physician underwriter for OUD and buprenorphine restarted to treat OUD as pt presented in withdrawal. re-eval requested as patient has been experiencing increasing pain related to recurrent fluid in his left knee thathas been drained several times. Morning dose of bup was held and patient was given Dilaudid. Past Psychiatric History: please see original consult note Medical Evaluation Reviewed: Yes Review of Systems Constitutional: Reports difficulty sleeping Comments: left knee pain Psychiatric: Reports anxiety Diagnostics Vital Signs (24Hr): Vital Signs - 24 hr 06/22/20 20:00 06/22/20 20:15 06/22/20 22:53 Temperature 98.6 F Pulse Rate 106 H 94 Respiratory Rate 18 20 Blood Pressure 136/70 134/78 Pulse Oximetry 97 06/23/20 00:00 06/23/20 03:17 06/23/20 07:29 Temperature 98.6 F 98.4 F 96.1 F L Pulse Rate 106 H 97 109 H Respiratory Rate 18 20 18 Blood Pressure 136/70 144/83 H 138/84 Pulse Oximetry 96 97 06/23/20 08:00 06/23/20 11:53 06/23/20 16:00 Temperature 96.1 F L 98.2 F 98.9 F Pulse Rate 109 H 106 H 110 H Respiratory Rate 18 18 22 H Blood Pressure 138/84 149/81 H 158/89 H Pulse Oximetry 96 95 99 Body Mass Index 19.9 Labs Results: 06/23/20 09:35 06/23/20 09:35 Labs: Laboratory Results - last 48 hr 06/19/20 06/19/20 06/21/20 05:52 05:52 08:15 WBC 11.1 H RBC 4.29 L Hgb 11.6 L Hct 37.0 L MCV 86.2 MCH 27.0 MCHC 31.4 RDW RDW Coeff of [place] 14.2 Plt Count 567 H D MPV 8.3 L Immature Gran % (Auto) Neut % (Auto) Lymph % (Auto) [place] % (Auto) Eos % (Auto) Baso % (Auto) Neut # (Auto) Lymph # (Auto) [place] # (Auto) Eos # (Auto) Baso # (Auto) Abs Immat Gran (auto) Absolute Lymphs (auto) Absolute Monos (auto) Absolute Eos (auto) Absolute Basos (auto) Absolute Nucleated RBC 0.000 Nucleated RBC % (auto) 0.0 Absolute Neutrophils Smear Tech's Comments Sodium 133 L 132 L Potassium 4.5 4.4 Chloride 101 99 Carbon Dioxide Bicarbonate 26 24 Anion Gap 11 L 13 BUN 11 15 Creatinine 0.57 0.64 Estimated Creat Clear 151.2 138.7 Estim Creat Clear Calc Estimated GFR Est GFR (Non-Af Amer) > 60 > 60 Random Glucose 90 119 H Calcium 8.6 D Total Bilirubin AST ALT Alkaline Phosphatase Total Protein Albumin 06/21/20 06/22/20 06/22/20 08:15 05:43 06:00 WBC 24.7 H 11.7 H Not Rcvd RBC 4.20 L 3.88 L Not Rcvd Hgb 11.6 L 10.7 L Not Rcvd Hct 36.2 L 33.4 L Not Rcvd MCV 86.2 86.1 Not Rcvd MCH 27.6 27.6 Not Rcvd MCHC 32.0 32.0 Not Rcvd RDW 13.5 RDW Coeff of [place] 13.8 Not Rcvd Plt Count 609 H 531 H Not Rcvd MPV 8.6 L 8.8 L Not Rcvd Immature Gran % (Auto) 1.1 H 0.6 H Not Rcvd Neut % (Auto) 88.0 H 77.2 H Not Rcvd Lymph % (Auto) 6.5 L 14.4 L Not Rcvd [place] % (Auto) 3.9 7.2 Not Rcvd Eos % (Auto) 0.3 0.3 Not Rcvd Baso % (Auto) 0.2 0.3 Not Rcvd Neut # (Auto) 9.1 H Lymph # (Auto) 1.7 [place] # (Auto) 0.9 Eos # (Auto) 0.0 Baso # (Auto) 0.0 Abs Immat Gran (auto) 0.26 H 0.07 H Not Rcvd Absolute Lymphs (auto) 1.6 Not Rcvd Absolute Monos (auto) 1.0 Not Rcvd Absolute Eos (auto) 0.1 Not Rcvd Absolute Basos (auto) 0.1 Not Rcvd Absolute Nucleated RBC 0.000 0.000 Not Rcvd Nucleated RBC % (auto) 0.0 0.0 Not Rcvd Absolute Neutrophils 21.7 H Smear Tech's Comments VERIFIED Sodium Potassium Chloride Carbon Dioxide Bicarbonate Anion Gap BUN Creatinine Estimated Creat Clear Estim Creat Clear Calc Estimated GFR Est GFR (Non-Af Amer) Random Glucose Calcium Total Bilirubin AST ALT Alkaline Phosphatase Total Protein Albumin 06/23/20 06/23/20 09:35 09:35 WBC 11.5 H RBC 3.82 L Hgb 10.6 L Hct 32.8 L MCV 85.9 MCH 27.7 MCHC 32.3 RDW 13.2 RDW Coeff of [place] Plt Count 582 H MPV 8.0 L Immature Gran % (Auto) 0.5 H Neut % (Auto) 81.1 H Lymph % (Auto) 10.3 L [place] % (Auto) 7.5 Eos % (Auto) 0.3 Baso % (Auto) 0.3 Neut # (Auto) 9.4 H Lymph # (Auto) 1.2 [place] # (Auto) 0.9 Eos # (Auto) 0.0 Baso # (Auto) 0.0 Abs Immat Gran (auto) 0.06 H Absolute Lymphs (auto) Absolute Monos (auto) Absolute Eos (auto) Absolute Basos (auto) Absolute Nucleated RBC 0.000 Nucleated RBC % (auto) 0.0 Absolute Neutrophils Smear Tech's Comments Sodium 133 L Potassium 4.4 Chloride 98 Carbon Dioxide 29 Bicarbonate Anion Gap 10 L BUN 18 H Creatinine 0.61 Estimated Creat Clear Estim Creat Clear Calc 142.0 Estimated GFR > 60 Est GFR (Non-Af Amer) Random Glucose 110 Calcium 8.6 Total Bilirubin 0.2 AST 24 ALT 21 Alkaline Phosphatase 97 Total Protein 8.2 H Albumin 2.8 L Mental Status Exam Mental Status Exam Patient Appearance: Appropriate Patient Orientation: Person, Place, Time and Situation Level of Consciousness: Awake, Appropriate and Alert Patient Behavior: Appropriate and Anxious Mood Description: Anxious Affect Description: Anxious Speech Pattern: Clear Thought Process: Intact and Goal Oriented Thought Content: positive for Intact and positive for Goal Oriented Judgement: Good Medications Medications Current Medications Generic Name Dose Route Start Last Admin Trade Name Freq PRN Reason Stop Dose Admin Acetaminophen 650 mg 06/22/20 00:00 06/22/20 16:16 Acetaminophen 325 Mg Tablet PO 650 mg Q8H PRN Administration Pain, Moderate (Pain Scale 4-6 Amphetamine/Dextroamphetamine 20 mg 06/22/20 08:00 06/23/20 13:32 Amphetamine Mixed Salts 20 Mg Tablet PO 20 mg BID@0800,1400 ERNA Administration Buprenorphine/Naloxone 1 film 06/23/20 21:00 Buprenorphine/Naloxone 8/2 Mg Film SUBLINGUAL BID ERNA Bupropion HCl 150 mg 06/22/20 09:00 06/23/20 07:42 Bupropion Hcl Xl 150 Mg Tab.Er.24h PO 150 mg DAILY ERNA Administration Clonidine HCl 0.1 mg 06/22/20 21:00 06/22/20 20:15 Clonidine Hcl 0.1 Mg Tablet PO 0.1 mg BEDTIME ERNA Administration Docusate Sodium 100 mg 06/22/20 09:00 06/23/20 07:42 Docusate Sodium 100 Mg Capsule PO 100 mg DAILY ERNA Administration Enoxaparin Sodium 60 mg 06/22/20 00:00 06/23/20 12:21 Enoxaparin Sodium 60 Mg/0.6 Ml Syringe SUBCUT 60 mg Q12H ERNA Administration Gabapentin 600 mg 06/22/20 09:00 06/23/20 13:32 Gabapentin 600 Mg Tablet PO 600 mg TID [facility] Administration Hydromorphone HCl 1 mg 06/23/20 14:53 06/23/20 15:27 Hydromorphone Hcl 1 Mg/Ml Syringe IVPUSH 1 mg Q4H PRN Administration Pain, Severe (Pain Scale 7-10) Cefazolin Sodium/Dextrose 2 gm in 50 mls @ 100 mls/hr 06/22/20 04:00 06/23/20 13:57 Ancef IV Infused Q8H [facility] Infusion Lidocaine 1 patch 06/22/20 09:00 06/23/20 07:53 Lidocaine 4 % Patch Adh..Patch TRANSDERMA 1 patch DAILY [facility] Administration Protocol Magnesium Hydroxide 30 ml 06/22/20 00:00 Milk Of Magnesia 30 Ml Oral.Susp PO DAILY PRN Constipation Nicotine Polacrilex 2 mg 06/22/20 00:00 06/23/20 15:44 Nicotine Polacrilex 2 Mg Gum BUCCAL 2 mg Q2H PRN Administration Nicotine Cravings Omeprazole 20 mg 06/22/20 06:30 06/23/20 06:31 Omeprazole 20 Mg Capsule.Dr PO Not Given BID@0630,1630 [facility] Oxycodone HCl 5 mg 06/23/20 10:42 06/23/20 12:17 Oxycodone Hcl Immed Release 5 Mg Tablet PO 5 mg Q4H PRN Administration Pain, Moderate (Pain Scale 4-6 Polyethylene Glycol 17 gm 06/22/20 09:00 06/23/20 07:41 Polyethylene Glycol 3350 17 Gm Powd.Pack PO 17 gm DAILY ERAN Administration Quetiapine Fumarate 200 mg 06/22/20 21:00 06/22/20 20:17 Quetiapine Fumarate 200 Mg Tablet PO 200 mg BEDTIME ERNA Administration Sodium Chloride 2 ml 06/22/20 00:00 06/23/20 15:31 0.9 % Sodium Chloride Flush 3 Ml Syringe IVFLUSH 2 ml QSHIFT ERNA Administration Allergies Allergies Allergy/AdvReac Type Severity Reaction Status Date / Time haloperidol [From HALDOL] Allergy Intermediate LOCK JAW Unverified 06/08/20 16:32 olanzapine [From ZYPREXA] AdvReac Unknown PT REPORTS Unverified 06/08/20 16:32 FEELS LIKE I AM ON AN ACID TRIP Assessment & Plan Assessment & Plan (1) Opioid use disorder: Status: Acute Code(s): F11.99 - Opioid use, unspecified with unspecified opioid-induced disorder Recommendations: Pt reluctant to restart suboxone after having missed this morning's dose and already receiving pain meds, attempted to reassure regarding low risk of precipitated withdrawal, but unsuccessful Can restart suboxone once he no longer requires opioid pain medications Please note that due to patient's existing opioid dependance he will likely require scheduled opioids and possibly higher doses based on baseline tolerance Greater than 50% of the session was spent on counseling and/or coordination of care Patient educated on: medication risk/benefits and therapeutic strategies
[2020-06-23] MEDS: Omeprazole 20 MG CAPSULE.DR PO (17:47)
[2020-06-23] MEDS: Milk of Magnesia 30 ML ORAL.SUSP PO (19:39)
[2020-06-23] MEDS: QUEtiapine Fumarate 200 MG TABLET PO (21:25)
[2020-06-23] MEDS: cloNIDine HCL 0.1 MG TABLET PO (21:25)
[2020-06-23] MEDS: HYDROmorphone HCl 2 MG/ML VIAL IVPUSH (22:01)
[2020-06-23] MEDS: LORazepam 2 MG/ML VIAL 0.5 MG IVPUSH (22:02)
[2020-06-24] VITALS (15 sets, daily range): BP systolic 128–152; BP diastolic 64–91; PULSE 110–151; RESP 17–20; TEMP 36.9–38.1; O2SAT 95–98
[2020-06-24] MEDS: 0.9 % Sodium Chloride Flush 3 ML SYRINGE 2 ML IVFLUSH ×4 (00:17→23:43)
[2020-06-24] MEDS: Nicotine Polacrilex 2 MG GUM BUCCAL ×5 (00:18→21:12)
[2020-06-24] MEDS: Enoxaparin Sodium 60 MG/0.6 ML SYRINGE SUBCUT ×3 (00:19→23:44)
[2020-06-24] MEDS: HYDROmorphone HCl 1 MG/ML SYRINGE IVPUSH ×5 (00:21→23:57)
[2020-06-24] MEDS: ceFAZolin Sodium/Dextrose,Iso 2 GM/50 ML PIGGYBACK IV ×3 (03:14→20:49)
[2020-06-24] MEDS: oxyCODONE HCl Immed Release 5 MG TABLET PO ×2 (03:15→11:18)
[2020-06-24] MEDS: Omeprazole 20 MG CAPSULE.DR PO ×2 (05:19→16:21)
[2020-06-24] MEDS: Amphetamine Mixed Salts 20 MG TABLET PO ×2 (09:09→12:31)
[2020-06-24] MEDS: buPROPion HCl XL 150 MG TAB.ER.24H PO (09:09)
[2020-06-24] MEDS: Lidocaine 4 % Patch ADH..PATCH 1 PATCH TRANSDERMA (09:09)
[2020-06-24] MEDS: Docusate Sodium 100 MG CAPSULE PO (09:09)
[2020-06-24] MEDS: polyethylene glycoL 3350 17 GM POWD.PACK PO (09:09)
[2020-06-24] MEDS: Gabapentin 600 MG TABLET PO ×3 (09:09→20:50)
[2020-06-24 10:26] LABS: Anion Gap 11 (12-20); Blood Urea Nitrogen 11 mg/dL (9-16); Calcium 8.4 mg/dL (8.4-10.2); Carbon Dioxide 27 mmol/L (22-29); Chloride 98 mmol/L (96-108); Creatinine Clr Calc Pharmacy 139.7; Estimated Glomerular Filt Rate > 60; Glucose Random 129 mg/dL (60-115); Potassium 4.4 mmol/l (3.3-5.1); Sodium 132 mmol/L (135-145)
--- NOTE | 2020-06-24 10:42 | P.PNOP_ITS ---
Subjective Subjective Interval history: patient seen and examined at bedside patient still reporting significant knee pain and swelling pain Physical Exam Vital Signs and I&O and Narrative: Vital Signs and I&O: Vital Signs Temp 98.4 F 06/24/20 08:00 Pulse 115 H 06/24/20 08:00 Resp 18 06/24/20 09:17 BP 134/75 06/24/20 08:00 Pulse Ox 97 06/24/20 08:00 Intake & Output 06/23/20 06/24/20 06/24/20 18:59 06:59 18:59 Intake Total 290 / 1100 810 / 1100 Output Total 400 / 2700 2300 / 2700 Balance -110 / -1600 -1490 / -1600 Urine Output (Aver age ml/kg/hr) 0.56 3.23 3.23 Intake: Intake, Oral Zackary unt 240 / 950 710 / 950 Intake, IV Amoun t 50 / 150 100 / 150 ceFAZolin Sodi um/Dextrose,Iso 2 50 / 150 100 / 150 gm In 50 ml @ 100 mls/hr IV Q8H [facility] Rx#:[id number] Output: Output, Urine Am ount 400 / 2700 2300 / 2700 Other: Meal Refused No NPO No Breakfast % Eate n 100% 100% Urine Urinal Urinal Urine Color Yellow Yellow Body Mass Index 19.9 Const: General: cooperative, healthy appearing and no acute distress Resp: Effort & Inspection: normal respiratory effort and able to speak in complete sentences Cardio: Rate: regular rate Peripheral pulses: Peripheral pulses 2+ throughout GI: Inspection: Yes normal to inspection Palpation (GI): Soft to palpation Skin: General skin exam: no rashes or lesions noted Extrem: Other: Left knee effusion noted with tenderness. extension intact with diff SLR. Progress Note: A&P Assessment and plan (1) Effusion, left knee: Status: Acute Assessment and Plan: cont PT pain mgmnt MRI done-no quad injury Fall Risk Details Current Medications: Current Medications Generic Name Dose Route Start Last Admin Trade Name Freq PRN Reason Stop Dose Admin Acetaminophen 650 mg 06/22/20 00:00 06/22/20 16:16 Acetaminophen 325 Mg Tablet PO 650 mg Q8H PRN Administration Pain, Moderate (Pain Scale 4-6 Amphetamine/Dextroamphetamine 20 mg 06/22/20 08:00 10/03/20 09:09 Amphetamine Mixed Salts 20 Mg Tablet PO 20 mg BID@0800,1400 ERNA Administration Bupropion HCl 150 mg 06/22/20 09:00 06/24/20 09:09 Bupropion Hcl Xl 150 Mg Tab.Er.24h PO 150 mg DAILY ERNA Administration Clonidine HCl 0.1 mg 06/22/20 21:00 06/23/20 21:25 Clonidine Hcl 0.1 Mg Tablet PO 0.1 mg BEDTIME ERNA Administration Docusate Sodium 100 mg 06/22/20 09:00 06/24/20 09:09 Docusate Sodium 100 Mg Capsule PO 100 mg DAILY ERNA Administration Enoxaparin Sodium 60 mg 06/22/20 00:00 06/24/20 00:19 Enoxaparin Sodium 60 Mg/0.6 Ml Syringe SUBCUT 60 mg Q12H ERNA Administration Gabapentin 600 mg 06/22/20 09:00 06/24/20 09:09 Gabapentin 600 Mg Tablet PO 600 mg TID ERNA Administration Hydromorphone HCl 1 mg 06/23/20 14:53 06/24/20 09:17 Hydromorphone Hcl 1 Mg/Ml Syringe IVPUSH 1 mg Q4H PRN Administration Pain, Severe (Pain Scale 7-10) Cefazolin Sodium/Dextrose 2 gm in 50 mls @ 100 mls/hr 06/22/20 04:00 06/24/20 03:51 Ancef IV Infused Q8H [facility] Infusion Lidocaine 1 patch 06/22/20 09:00 06/24/20 09:09 Lidocaine 4 % Patch Adh..Patch TRANSDERMA 1 patch DAILY ERNA Administration Protocol Magnesium Hydroxide 30 ml 06/22/20 00:00 06/23/20 19:39 Milk Of Magnesia 30 Ml Oral.Susp PO 30 ml DAILY PRN Administration Constipation Nicotine Polacrilex 2 mg 06/22/20 00:00 06/24/20 09:17 Nicotine Polacrilex 2 Mg Gum BUCCAL 2 mg Q2H PRN Administration Nicotine Cravings Omeprazole 20 mg 06/22/20 06:30 06/24/20 05:19 Omeprazole 20 Mg Capsule.Dr PO 20 mg BID@0630,1630 ERNA Administration Oxycodone HCl 5 mg 06/23/20 10:42 06/24/20 03:15 Oxycodone Hcl Immed Release 5 Mg Tablet PO 5 mg Q4H PRN Administration Pain, Moderate (Pain Scale 4-6 Polyethylene Glycol 17 gm 06/22/20 09:00 06/24/20 09:09 Polyethylene Glycol 3350 17 Gm Powd.Pack PO 17 gm DAILY ERNA Administration Quetiapine Fumarate 200 mg 06/22/20 21:00 06/23/20 21:25 Quetiapine Fumarate 200 Mg Tablet PO 200 mg BEDTIME ERNA Administration Sodium Chloride 2 ml 06/22/20 00:00 06/24/20 09:17 0.9 % Sodium Chloride Flush 3 Ml Syringe IVFLUSH 2 ml QSHIFT ERNA Administration Time Spent With Patient Time: Total time spent is greater than 50% in coordination of care (as documented) at patient's floor/unit and/or counseling patient: Time with patient: less than 15 minutes Progress Note: Quality VTE Deep Vein Thrombosis/Pulmonary Embolism Present on Admission: No
[2020-06-24] MEDS: LORazepam 2 MG/ML VIAL 0.5 MG IVPUSH ×2 (12:31→23:56)
--- NOTE | 2020-06-24 14:28 | HO.PM.IMPN ---
Subjective Subjective Date of Service: 06/22/20 Interval History: patient seen and examined at bedside patient still reporting knee pain with some improvement Constitutional Constitutional: Reports weakness Respiratory Respiratory: Reports no additional respiratory complaints Neurologic Neurologic: Reports weakness Physical Exam Vital Signs and I&O and Narrative: Vital Signs and I&O: Vital Signs Temp 98.9 F 06/24/20 11:34 Pulse 114 H 06/24/20 11:34 Resp 20 06/24/20 11:34 BP 135/91 H 06/24/20 11:34 Pulse Ox 96 06/24/20 11:34 Intake & Output 06/23/20 06/24/20 06/24/20 18:59 06:59 18:59 Intake Total 290 / 1100 810 / 1100 50 / 50 Output Total 400 / 2700 2300 / 2700 700 / 700 Balance -110 / -1600 -1490 / -1600 -650 / -650 Urine Output (Aver age ml/kg/hr) 0.56 3.23 0.98 Intake: Intake, Oral Zackary unt 240 / 950 710 / 950 Intake, IV Amoun t 50 / 150 100 / 150 50 / 50 ceFAZolin Sodi um/Dextrose,Iso 2 50 / 150 100 / 150 50 / 50 gm In 50 ml @ 100 mls/hr IV Q8H ERNA Rx#:[id number] Output: Output, Urine Am ount 400 / 2700 2300 / 2700 700 / 700 Other: Meal Refused No NPO No Breakfast % Eate n 100% 100% Lunch % Eaten 100% Urine Urinal Urinal Urine Color Yellow Yellow Body Mass Index 19.9 Const: General: cooperative Resp: Effort & Inspection: normal respiratory effort Cardio: Jugular venous distension: no JVD GI: Inspection: Yes normal to inspection Skin: Other: left knee swelling and erythema Objective Data Current Medications Generic Name Dose Route Start Last Admin Trade Name Freq PRN Reason Stop Dose Admin Acetaminophen 650 mg 06/22/20 00:00 06/22/20 16:16 Acetaminophen 325 Mg Tablet PO 650 mg Q8H PRN Administration Pain, Moderate (Pain Scale 4-6 Amphetamine/Dextroamphetamine 20 mg 06/22/20 08:00 06/24/20 12:31 Amphetamine Mixed Salts 20 Mg Tablet PO 20 mg BID@0800,1400 ERNA Administration Bupropion HCl 150 mg 06/22/20 09:00 06/24/20 09:09 Bupropion Hcl Xl 150 Mg Tab.Er.24h PO 150 mg DAILY ERNA Administration Clonidine HCl 0.1 mg 06/22/20 21:00 06/23/20 21:25 Clonidine Hcl 0.1 Mg Tablet PO 0.1 mg BEDTIME ERNA Administration Docusate Sodium 100 mg 06/22/20 09:00 06/24/20 09:09 Docusate Sodium 100 Mg Capsule PO 100 mg DAILY ERNA Administration Enoxaparin Sodium 60 mg 06/22/20 00:00 06/24/20 11:19 Enoxaparin Sodium 60 Mg/0.6 Ml Syringe SUBCUT 60 mg Q12H ERNA Administration Gabapentin 600 mg 06/22/20 09:00 06/24/20 12:31 Gabapentin 600 Mg Tablet PO 600 mg TID ERNA Administration Hydromorphone HCl 1 mg 06/23/20 14:53 06/24/20 09:17 Hydromorphone Hcl 1 Mg/Ml Syringe IVPUSH 1 mg Q4H PRN Administration Pain, Severe (Pain Scale 7-10) Cefazolin Sodium/Dextrose 2 gm in 50 mls @ 100 mls/hr 06/22/20 04:00 06/24/20 11:55 Ancef IV Infused Q8H [facility] Infusion Lidocaine 1 patch 06/22/20 09:00 06/24/20 09:09 Lidocaine 4 % Patch Adh..Patch TRANSDERMA 1 patch DAILY ERNA Administration Protocol Lorazepam 0.5 mg 06/24/20 11:39 Lorazepam 0.5 Mg Tablet PO Q6H PRN anxiety/restlessness Lorazepam 0.5 mg 06/24/20 11:40 06/24/20 12:31 Lorazepam 2 Mg/Ml Vial IVPUSH 0.5 mg Q6H PRN Administration Anxiety Magnesium Hydroxide 30 ml 06/22/20 00:00 06/23/20 19:39 Milk Of Magnesia 30 Ml Oral.Susp PO 30 ml DAILY PRN Administration Constipation Nicotine Polacrilex 2 mg 06/22/20 00:00 06/24/20 12:31 Nicotine Polacrilex 2 Mg Gum BUCCAL 2 mg Q2H PRN Administration Nicotine Cravings Omeprazole 20 mg 06/22/20 06:30 06/24/20 05:19 Omeprazole 20 Mg Capsule.Dr PO 20 mg BID@0630,1630 ERNA Administration Oxycodone HCl 10 mg 06/24/20 11:35 Oxycodone Hcl Immed Release 5 Mg Tablet PO Q4H PRN Pain, Moderate (Pain Scale 4-6 Polyethylene Glycol 17 gm 06/22/20 09:00 06/24/20 09:09 Polyethylene Glycol 3350 17 Gm Powd.Pack PO 17 gm DAILY ERNA Administration Quetiapine Fumarate 200 mg 06/22/20 21:00 06/23/20 21:25 Quetiapine Fumarate 200 Mg Tablet PO 200 mg BEDTIME ERNA Administration Sodium Chloride 2 ml 06/22/20 00:00 06/24/20 09:17 0.9 % Sodium Chloride Flush 3 Ml Syringe IVFLUSH 2 ml QSHIFT ERNA Administration Labs CBC & Chem 7: 06/23/20 09:35 06/24/20 09:13 Labs: Laboratory Results - last 24 hr 06/24/20 09:13 Anion Gap 11 L Estim Creat Clear Calc 139.7 Estimated GFR > 60 Random Glucose 129 H Calcium 8.4 Quality VTE Deep Vein Thrombosis/Pulmonary Embolism Present on Admission: No Assessment and Plan (1) Sepsis: Status: Acute (2) Septic pulmonary embolism: Status: Acute (3) Septic arthritis of knee: Status: Acute (4) Streptococcal bacteremia: Status: Acute Assessment and Plan: 34-year-old male with significant IV drug use admitted with sepsis found to have pulmonary septic emboli and left knee effusion, blood culture grew strep bacteremia, id recommended 6 weeks of Kefzol, hospital course was complicated by recurrent left knee effusion patient underwent arthrocentesis and arthroscopic lavage, currently requiring pain management Sepsis secondary to strep bacteremia with IV drug use with septic arthritis and septic pulmonary emboli 1 out of 2 1st set of blood culture grew strep pyogenes group a continue IV Kefzol D12 total duration 6 weeks id and orthopedic following following repeat blood culture negative for [address] PICC line before discharge septic arthritis knee status post arthrocentesis x3 status post arthroscopic lavage on 06/20 Still significant knee pain and swelling continue IV antibiotics ortho following continue IV Dilaudid will increase oxycodone encouraged to work with PT IV drug abuse was on suboxone discussed with Daphney colón to give Suboxone and continue IV narcotics for pain medication given significant pain and not controlled, but patient is refusing to take Suboxone with IV pain medication so will hold Suboxone and will restart once we were able to wean off pain medication upper extremity DVT continue Lovenox DVT prophylaxis with Lovenox
[2020-06-24] MEDS: oxyCODONE HCl Immed Release 5 MG TABLET 10 MG PO ×2 (15:34→21:10)
[2020-06-24] MEDS: QUEtiapine Fumarate 200 MG TABLET PO (20:50)
[2020-06-24] MEDS: cloNIDine HCL 0.1 MG TABLET PO (20:50)
[2020-06-25] VITALS (8 sets, daily range): BP systolic 127–150; BP diastolic 69–89; PULSE 75–121; RESP 16–20; TEMP 36.8–37.1; O2SAT 96–98
[2020-06-25] MEDS: ceFAZolin Sodium/Dextrose,Iso 2 GM/50 ML PIGGYBACK IV ×3 (03:33→20:29)
[2020-06-25] MEDS: Omeprazole 20 MG CAPSULE.DR PO ×2 (06:01→15:55)
[2020-06-25] MEDS: LORazepam 2 MG/ML VIAL 0.5 MG IVPUSH ×3 (06:02→17:59)
[2020-06-25] MEDS: HYDROmorphone HCl 1 MG/ML SYRINGE IVPUSH ×2 (06:02→13:02)
[2020-06-25 06:51] LABS: MANUAL DIFF FLAG NO
[2020-06-25 07:01] LABS: Basophils Percent Auto 0.2 % (0-2); Eosinophils Absolute Auto 0.1 X10*3/uL (0.0-0.4); Eosinophils Percent Auto 0.7 % (0-4); Hematocrit 29.8 % (42-52); Hemoglobin 9.7 g/dl (14.0-18.0); Imm Gran Abs Auto 0.04 X10*3/uL (0.00-0.03); Imm Gran Pct Auto 0.4 % (0.0-0.4); Lymphocytes Percent Auto 22.2 % (20-40); Mean Corpuscular HGB Conc 32.6 g/dl (31.0-36.0); Mean Corpuscular Hemoglobin 27.6 pg (27.0-33.0); Mean Corpuscular Volume 84.9 fL (80-98); Mean Platelet Volume 8.1 fL (9.4-12.4); Monocytes Percent Auto 10.5 % (2-11); Neutrophils Absolute Auto 6.1 X10*3/uL (2.0-8.3); Platelet Count 485 X10*3/uL (160-400); Red Blood Count 3.51 X10*6/uL (4.60-5.80); Red Cell Distribution Width 13.2 % (11.0-16.0); White Blood Count 9.2 X10*3/uL (4.8-10.8)
[2020-06-25 07:21] LABS: Anion Gap 11 (12-20); Blood Urea Nitrogen 12 mg/dL (9-16); Calcium 8.5 mg/dL (8.4-10.2); Carbon Dioxide 27 mmol/L (22-29); Chloride 98 mmol/L (96-108); Creatinine Clr Calc Pharmacy 139.7; Estimated Glomerular Filt Rate > 60; Glucose Random 119 mg/dL (60-115); Potassium 3.9 mmol/l (3.3-5.1); Sodium 132 mmol/L (135-145)
[2020-06-25] MEDS: 0.9 % Sodium Chloride Flush 3 ML SYRINGE 2 ML IVFLUSH ×3 (09:25→20:56)
[2020-06-25] MEDS: polyethylene glycoL 3350 17 GM POWD.PACK PO (09:26)
[2020-06-25] MEDS: Lidocaine 4 % Patch ADH..PATCH 1 PATCH TRANSDERMA (09:26)
[2020-06-25] MEDS: Amphetamine Mixed Salts 20 MG TABLET PO ×2 (09:27→13:01)
[2020-06-25] MEDS: Gabapentin 600 MG TABLET PO ×3 (09:27→20:30)
[2020-06-25] MEDS: buPROPion HCl XL 150 MG TAB.ER.24H PO (09:27)
[2020-06-25] MEDS: Docusate Sodium 100 MG CAPSULE PO ×3 (09:27→20:30)
[2020-06-25] MEDS: Nicotine Polacrilex 2 MG GUM BUCCAL ×4 (13:01→21:27)
[2020-06-25] MEDS: Enoxaparin Sodium 60 MG/0.6 ML SYRINGE SUBCUT ×2 (13:02→22:18)
--- NOTE | 2020-06-25 15:07 | P.PNIM_ITS ---
Subjective Subjective Interval History: patient seen and examined at bedside patient still reporting knee pain with some improvement Physical Exam Vital Signs and I&O and Narrative: Vital Signs and I&O: Vital Signs Temp 98.6 F 06/25/20 11:44 Pulse 75 06/25/20 11:44 Resp 20 06/25/20 13:02 BP 145/88 H 06/25/20 11:44 Pulse Ox 98 06/25/20 11:44 Intake & Output 06/24/20 06/25/20 06/25/20 18:59 06:59 18:59 Intake Total 290 / 1540 1250 / 1540 450 / 450 Output Total / 2003 1304 / 2003 800 / 800 Balance -410 / -464 -54 / -464 -350 / -350 Urine Output (Aver age ml/kg/hr) 0.98 1.82 1.12 Intake: Intake, Oral [place] unt 240 / 1390 1150 / 1390 400 / 400 Intake, IV Amoun t 50 / 150 100 / 150 50 / 50 ceFAZolin Sodi um/Dextrose,Iso 2 50 / 150 100 / 150 50 / 50 gm In 50 ml @ 100 mls/hr IV Q8H [facility] Rx#:[id number] Output: Output, Urine Am ount 700 / 2000 1300 / 2000 800 / 800 Output, Post Voi d Residual 4 / 4 Amount Other: Meal Refused No NPO No Breakfast % Eate n 100% 100% Lunch % Eaten 100% 100% Dinner % Eaten 100% Urine Urinal Urinal Urine Color Yellow Body Mass Index 19.9 Const: General: cooperative Resp: Effort & Inspection: normal respiratory effort Cardio: Jugular venous distension: no JVD GI: Inspection: Yes normal to inspection Skin: Other: left knee swelling and erythema Objective Data Current Medications Generic Name Dose Route Start Last Admin Trade Name Freq PRN Reason Stop Dose Admin Acetaminophen 650 mg 06/22/20 00:00 06/22/20 16:16 Acetaminophen 325 Mg Tablet PO 650 mg Q8H PRN Administration Pain, Moderate (Pain Scale 4-6 Amphetamine/Dextroamphetamine 20 mg 06/22/20 08:00 06/25/20 13:01 Amphetamine Mixed Salts 20 Mg Tablet PO 20 mg BID@0800,1400 ERNA Administration Bupropion HCl 150 mg 06/22/20 09:00 06/25/20 09:27 Bupropion Hcl Xl 150 Mg Tab.Er.24h PO 150 mg DAILY ERNA Administration Clonidine HCl 0.1 mg 06/22/20 21:00 06/24/20 20:50 Clonidine Hcl 0.1 Mg Tablet PO 0.1 mg BEDTIME ERNA Administration Docusate Sodium 100 mg 06/25/20 09:00 06/25/20 09:27 Docusate Sodium 100 Mg Capsule PO 100 mg BID ERNA Administration Enoxaparin Sodium 60 mg 06/22/20 00:00 06/25/20 13:02 Enoxaparin Sodium 60 Mg/0.6 Ml Syringe SUBCUT 60 mg Q12H [facility] Administration Gabapentin 600 mg 06/22/20 09:00 06/25/20 09:27 Gabapentin 600 Mg Tablet PO 600 mg TID ERNA Administration Hydromorphone HCl 1 mg 06/23/20 14:53 06/25/20 13:02 Hydromorphone Hcl 1 Mg/Ml Syringe IVPUSH 1 mg Q4H PRN Administration Pain, Severe (Pain Scale 7-10) Cefazolin Sodium/Dextrose 2 gm in 50 mls @ 100 mls/hr 06/22/20 04:00 06/25/20 13:36 Ancef IV Infused Q8H [facility] Infusion Lidocaine 1 patch 06/22/20 09:00 06/25/20 09:26 Lidocaine 4 % Patch Adh..Patch TRANSDERMA 1 patch DAILY E[facility] Administration Protocol Lorazepam 0.5 mg 06/24/20 11:39 Lorazepam 0.5 Mg Tablet PO Q6H PRN anxiety/restlessness Lorazepam 0.5 mg 06/24/20 11:40 06/25/20 13:03 Lorazepam 2 Mg/Ml Vial IVPUSH 0.5 mg Q6H PRN Administration Anxiety Magnesium Hydroxide 30 ml 06/22/20 00:00 06/23/20 19:39 Milk Of Magnesia 30 Ml Oral.Susp PO 30 ml DAILY PRN Administration Constipation Nicotine Polacrilex 2 mg 06/22/20 00:00 06/25/20 13:01 Nicotine Polacrilex 2 Mg Gum BUCCAL 2 mg Q2H PRN Administration Nicotine Cravings Omeprazole 20 mg 06/22/20 06:30 06/25/20 06:01 Omeprazole 20 Mg Capsule.Dr PO 20 mg BID@0630,1630 ERNA Administration Oxycodone HCl 10 mg 06/24/20 11:35 06/24/20 21:10 Oxycodone Hcl Immed Release 5 Mg Tablet PO 10 mg Q4H PRN Administration Pain, Moderate (Pain Scale 4-6 Polyethylene Glycol 17 gm 06/22/20 09:00 06/25/20 09:26 Polyethylene Glycol 3350 17 Gm Powd.Pack PO 17 gm DAILY ERNA Administration Quetiapine Fumarate 200 mg 06/22/20 21:00 06/24/20 20:50 Quetiapine Fumarate 200 Mg Tablet PO 200 mg BEDTIME ERNA Administration Sodium Chloride 2 ml 06/22/20 00:00 06/25/20 09:25 0.9 % Sodium Chloride Flush 3 Ml Syringe IVFLUSH 2 ml QSHIFT ERNA Administration Labs CBC & Chem 7: 06/25/20 06:17 06/25/20 06:17 Labs: Laboratory Results - last 24 hr 06/25/20 06/25/20 06:17 06:17 MCV 84.9 MCH 27.6 MCHC 32.6 RDW 13.2 Plt Count 485 H MPV 8.1 L Immature Gran % (Auto) 0.4 Neut % (Auto) 66.0 Lymph % (Auto) 22.2 [place] % (Auto) 10.5 Eos % (Auto) 0.7 Baso % (Auto) 0.2 Neut # (Auto) 6.1 Lymph # (Auto) 2.0 [place] # (Auto) 1.0 Eos # (Auto) 0.1 Baso # (Auto) 0.0 Abs Immat Gran (auto) 0.04 H Absolute Nucleated RBC 0.000 Nucleated RBC % (auto) 0.0 Anion Gap 11 L Estim Creat Clear Calc 139.7 Estimated GFR > 60 Random Glucose 119 H Calcium 8.5 Quality VTE Deep Vein Thrombosis/Pulmonary Embolism Present on Admission: No Assessment and Plan (1) Sepsis: Status: Acute (2) Septic pulmonary embolism: Status: Acute (3) Septic arthritis of knee: Status: Acute (4) Streptococcal bacteremia: Status: Acute Assessment and Plan: 34-year-old male with significant IV drug use admitted with sepsis found to have pulmonary septic emboli and left knee effusion, blood culture grew strep bacteremia, id recommended 6 weeks of Kefzol, hospital course was complicated by recurrent left knee effusion patient underwent arthrocentesis and arthroscopic lavage, currently requiring pain management Sepsis secondary to strep bacteremia with IV drug use with septic arthritis and septic pulmonary emboli 1 out of 2 1st set of blood culture grew strep pyogenes group a continue IV Kefzol D13 total duration 6 weeks id and orthopedic following following repeat blood culture negative for [address] PICC line before discharge septic arthritis knee status post arthrocentesis x3 status post arthroscopic lavage on 06/20 Still significant knee pain and swelling continue IV antibiotics ortho following continue IV Dilaudid oxycodone dose increased encouraged to work with PT orthopedic following , may need a follow-up with ortho if knee pain and swelling worsens further IV drug abuse was on suboxone discussed with Daphney colón to give Suboxone and continue IV narcotics for pain medication given significant pain and not controlled, but patient is refusing to take Suboxone with IV pain medication so will hold Suboxone and will restart once we were able to wean off pain medication upper extremity DVT continue Lovenox DVT prophylaxis with Lovenox plan for discharge to rehab with IV antibiotic once knee pain controlled ,
[2020-06-25] MEDS: oxyCODONE HCl Immed Release 5 MG TABLET 10 MG PO (16:27)
[2020-06-25] MEDS: Artificial Tears 15 ML DROPS 1 DROP EYE-BOTH (17:59)
[2020-06-25] MEDS: Milk of Magnesia 30 ML ORAL.SUSP PO (17:59)
[2020-06-25] MEDS: HYDROmorphone HCl 1 MG/ML SYRINGE 2 MG IVPUSH ×2 (18:00→22:16)
--- NOTE | 2020-06-25 18:21 | PM.PNORT ---
Subjective Subjective Interval history: patient seen and examined at bedside patient still reporting knee pain he is sitting up at the side of the bed Physical Exam Vital Signs and I&O and Narrative: Vital Signs and I&O: Vital Signs Temp 98.6 F 06/25/20 16:00 Pulse 119 H 06/25/20 16:00 Resp 18 06/25/20 16:00 BP 144/76 H 06/25/20 16:00 Pulse Ox 96 06/25/20 16:00 Intake & Output 06/24/20 06/25/20 06/25/20 18:59 06:59 18:59 Intake Total 290 / 1540 1250 / 1540 450 / 450 Output Total / 2003 1304 / 2003 1400 / 1400 Balance -410 / -464 -54 / -464 -950 / -950 Urine Output (Aver age ml/kg/hr) 0.98 1.82 1.96 Intake: Intake, Oral [place] unt 240 / 1390 1150 / 1390 400 / 400 Intake, IV Amoun t 50 / 150 100 / 150 50 / 50 ceFAZolin Sodi um/Dextrose,Iso 2 50 / 150 100 / 150 50 / 50 gm In 50 ml @ 100 mls/hr IV Q8H [facility] Rx#:[id number] Output: Output, Urine Am ount 700 / 1999 1300 / 2000 1400 / 1400 Output, Post Voi d Residual 4 / 4 Amount Other: Meal Refused No NPO No Breakfast % Eate n 100% 100% Lunch % Eaten 100% 100% Dinner % Eaten 100% 100% Urine Urinal Urinal Urine Color Yellow Body Mass Index 19.9 Const: General: cooperative, healthy appearing and no acute distress Resp: Effort & Inspection: normal respiratory effort and able to speak in complete sentences Cardio: Rate: regular rate Peripheral pulses: Peripheral pulses 2+ throughout GI: Inspection: Yes normal to inspection Palpation (GI): Soft to palpation Skin: General skin exam: no rashes or lesions noted Extrem: Other: Left knee , sutures intact. Mild effusion, no erythema. tenderness around the knee joint. ROm 0-30 Progress Note: A&P Assessment and plan (1) Effusion, left knee: Status: Acute Assessment and Plan: cont PT MRi neg for quad injury. Fall Risk Details Current Medications: Current Medications Generic Name Dose Route Start Last Admin Trade Name Freq PRN Reason Stop Dose Admin Acetaminophen 650 mg 06/22/20 00:00 06/22/20 16:16 Acetaminophen 325 Mg Tablet PO 650 mg Q8H PRN Administration Pain, Moderate (Pain Scale 4-6 Amphetamine/Dextroamphetamine 20 mg 06/22/20 08:00 06/25/20 13:01 Amphetamine Mixed Salts 20 Mg Tablet PO 20 mg BID@0800,1400 ERNA Administration Artificial Tears 1 drop 06/25/20 16:31 06/25/20 17:59 Artificial Tears 15 Ml Drops EYE-BOTH 1 drop Q4H PRN Administration Dry Eyes Bupropion HCl 150 mg 06/22/20 09:00 06/25/20 09:27 Bupropion Hcl Xl 150 Mg Tab.Er.24h PO 150 mg DAILY ERNA Administration Clonidine HCl 0.1 mg 06/22/20 21:00 06/24/20 20:50 Clonidine Hcl 0.1 Mg Tablet PO 0.1 mg BEDTIME ERNA Administration Docusate Sodium 100 mg 06/25/20 09:00 06/25/20 09:27 Docusate Sodium 100 Mg Capsule PO 100 mg BID ERNA Administration Enoxaparin Sodium 60 mg 06/22/20 00:00 06/25/20 13:02 Enoxaparin Sodium 60 Mg/0.6 Ml Syringe SUBCUT 60 mg Q12H ERNA Administration Gabapentin 600 mg 06/22/20 09:00 06/25/20 15:55 Gabapentin 600 Mg Tablet PO 600 mg TID ERNA Administration Hydromorphone HCl 2 mg 06/25/20 16:31 06/25/20 18:00 Hydromorphone Hcl 1 Mg/Ml Syringe IVPUSH 2 mg Q4H PRN Administration Pain, Severe (Pain Scale 7-10) Cefazolin Sodium/Dextrose 2 gm in 50 mls @ 100 mls/hr 06/22/20 04:00 06/25/20 13:36 Ancef IV Infused Q8H ERNA Infusion Lidocaine 1 patch 06/22/20 09:00 06/25/20 09:26 Lidocaine 4 % Patch Adh..Patch TRANSDERMA 1 patch DAILY ERNA Administration Protocol Lorazepam 0.5 mg 06/24/20 11:40 06/25/20 17:59 Lorazepam 2 Mg/Ml Vial IVPUSH 0.5 mg Q6H PRN Administration Anxiety Lorazepam 1 mg 06/25/20 16:30 Lorazepam 0.5 Mg Tablet PO Q6H PRN anxiety/restlessness Magnesium Hydroxide 30 ml 06/22/20 00:00 06/25/20 17:59 Milk Of Magnesia 30 Ml Oral.Susp PO 30 ml DAILY PRN Administration Constipation Nicotine Polacrilex 2 mg 06/22/20 00:00 06/25/20 16:27 Nicotine Polacrilex 2 Mg Gum BUCCAL 2 mg Q2H PRN Administration Nicotine Cravings Omeprazole 20 mg 06/22/20 06:30 06/25/20 15:55 Omeprazole 20 Mg Capsule. PO 20 mg BID@0630,1630 ERNA Administration Oxycodone HCl 10 mg 06/24/20 11:35 06/25/20 16:27 Oxycodone Hcl Immed Release 5 Mg Tablet PO 10 mg Q4H PRN Administration Pain, Moderate (Pain Scale 4-6 Polyethylene Glycol 17 gm 06/22/20 09:00 06/25/20 09:26 Polyethylene Glycol 3350 17 Gm Powd.Pack PO 17 gm DAILY ERNA Administration Quetiapine Fumarate 200 mg 06/22/20 21:00 06/24/20 20:50 Quetiapine Fumarate 200 Mg Tablet PO 200 mg BEDTIME ERNA Administration Sodium Chloride 2 ml 06/22/20 00:00 06/25/20 15:57 0.9 % Sodium Chloride Flush 3 Ml Syringe IVFLUSH 2 ml QSHIFT ERNA Administration Time Spent With Patient Time: Total time spent is greater than 50% in coordination of care (as documented) at patient's floor/unit and/or counseling patient: Time with patient: less than 15 minutes Progress Note: Quality VTE Deep Vein Thrombosis/Pulmonary Embolism Present on Admission: No
[2020-06-25] MEDS: Acetaminophen 325 MG TABLET 650 MG PO (20:28)
[2020-06-25] MEDS: QUEtiapine Fumarate 200 MG TABLET PO (20:30)
[2020-06-25] MEDS: cloNIDine HCL 0.1 MG TABLET PO (20:30)
[2020-06-25] MEDS: LORazepam 0.5 MG TABLET 1 MG PO (22:18)
[2020-06-26] VITALS (8 sets, daily range): BP systolic 115–133; BP diastolic 58–89; PULSE 106–115; RESP 12–19; TEMP 36.4–37.4; O2SAT 92–98
[2020-06-26] MEDS: HYDROmorphone HCl 1 MG/ML SYRINGE 2 MG IVPUSH ×4 (04:09→19:13)
[2020-06-26] MEDS: ceFAZolin Sodium/Dextrose,Iso 2 GM/50 ML PIGGYBACK IV ×3 (04:21→19:22)
[2020-06-26] MEDS: Nicotine Polacrilex 2 MG GUM BUCCAL ×6 (06:13→19:22)
[2020-06-26] MEDS: LORazepam 0.5 MG TABLET 1 MG PO ×3 (06:13→20:43)
[2020-06-26] MEDS: oxyCODONE HCl Immed Release 5 MG TABLET 10 MG PO ×4 (06:14→20:42)
--- NOTE | 2020-06-26 08:36 | PM.PNORT ---
Subjective Subjective Interval history: patient seen and examined at bedside patient still reporting knee pain although down to a 6. sleeping is improved. MRI obtained over weekend. showed large effusion with hematoma Physical Exam Vital Signs and I&O and Narrative: Vital Signs and I&O: Vital Signs Temp 98.3 F 06/26/20 08:07 Pulse 107 H 06/26/20 08:07 Resp 18 06/26/20 08:07 BP 125/78 06/26/20 08:07 Pulse Ox 98 06/26/20 08:07 Intake & Output 06/25/20 06/26/20 06/26/20 18:59 06:59 18:59 Intake Total 450 / 1150 700 / 1150 Output Total 1400 / 3100 1700 / 3100 Balance -950 / -1950 -1000 / -1950 Urine Output (Aver age ml/kg/hr) 1.96 2.38 Intake: Intake, Oral [place] unt 400 / 1000 600 / 1000 Intake, IV Amoun t 50 / 150 100 / 150 ceFAZolin Sodi um/Dextrose,Iso 2 50 / 150 100 / 150 gm In 50 ml @ 100 mls/hr IV Q8H [facility] Rx#:[id number] Output: Output, Urine Am ount 1400 / 3100 1700 / 3100 Other: Meal Refused No NPO No Breakfast % Eate n 100% Lunch % Eaten 100% Dinner % Eaten 100% Evening Snack % Eaten 100 Urine Urinal Urinal Urine Color Yellow Body Mass Index 19.9 Extrem: Other: left knee with large effusion. no erythema or discharge Progress Note: A&P Assessment and plan (1) Effusion, left knee: Status: Acute Assessment and Plan: Pain improved now that he is off suboxone. patient has persistent effusion with hematoma. I could not aspirate anything from it likely due to hematoma clotting. MRI without surpises. On last washout cartilage surface appeared healthy and no evidence of septic arthritis. I discussed another washout however just due to the large effusion and his history. I will discuss with medicine re blood thinners and likely OR tomorrow for arthroscopic lavage. Fall Risk Details Current Medications: Current Medications Generic Name Dose Route Start Last Admin Trade Name Freq PRN Reason Stop Dose Admin Acetaminophen 650 mg 06/22/20 00:00 06/25/20 20:28 Acetaminophen 325 Mg Tablet PO 650 mg Q8H PRN Administration Pain, Moderate (Pain Scale 4-6 Amphetamine/Dextroamphetamine 20 mg 06/22/20 08:00 06/25/20 13:01 Amphetamine Mixed Salts 20 Mg Tablet PO 20 mg BID@0800,1400 ERNA Administration Artificial Tears 1 drop 06/25/20 16:31 06/25/20 17:59 Artificial Tears 15 Ml Drops EYE-BOTH 1 drop Q4H PRN Administration Dry Eyes Bupropion HCl 150 mg 06/22/20 09:00 06/25/20 09:27 Bupropion Hcl Xl 150 Mg Tab.Er.24h PO 150 mg DAILY ERNA Administration Clonidine HCl 0.1 mg 06/22/20 21:00 06/25/20 20:30 Clonidine Hcl 0.1 Mg Tablet PO 0.1 mg BEDTIME ERNA Administration Docusate Sodium 100 mg 06/25/20 09:00 06/25/20 20:30 Docusate Sodium 100 Mg Capsule PO 100 mg BID ERNA Administration Enoxaparin Sodium 60 mg 06/22/20 00:00 06/25/20 22:18 Enoxaparin Sodium 60 Mg/0.6 Ml Syringe SUBCUT 60 mg Q12H ERNA Administration Gabapentin 600 mg 06/22/20 09:00 06/25/20 20:30 Gabapentin 600 Mg Tablet PO 600 mg TID ERNA Administration Hydromorphone HCl 2 mg 06/25/20 16:31 06/26/20 04:09 Hydromorphone Hcl 1 Mg/Ml Syringe IVPUSH 2 mg Q4H PRN Administration Pain, Severe (Pain Scale 7-10) Cefazolin Sodium/Dextrose 2 gm in 50 mls @ 100 mls/hr 06/22/20 04:00 06/26/20 04:55 Ancef IV Infused Q8H ERNA Infusion Lidocaine 1 patch 06/22/20 09:00 06/25/20 09:26 Lidocaine 4 % Patch Adh..Patch TRANSDERMA 1 patch DAILY ERNA Administration Protocol Lorazepam 0.5 mg 06/24/20 11:40 06/25/20 17:59 Lorazepam 2 Mg/Ml Vial IVPUSH 0.5 mg Q6H PRN Administration Anxiety Lorazepam 1 mg 06/25/20 16:30 06/26/20 06:13 Lorazepam 0.5 Mg Tablet PO 1 mg Q6H PRN Administration anxiety/restlessness Magnesium Hydroxide 30 ml 06/22/20 00:00 06/25/20 17:59 Milk Of Magnesia 30 Ml Oral.Susp PO 30 ml DAILY PRN Administration Constipation Nicotine Polacrilex 2 mg 06/22/20 00:00 06/26/20 06:13 Nicotine Polacrilex 2 Mg Gum BUCCAL 2 mg Q2H PRN Administration Nicotine Cravings Omeprazole 20 mg 06/22/20 06:30 06/26/20 05:54 Omeprazole 20 Mg Capsule.Dr PO Not Given BID@0630,1630 ERNA Oxycodone HCl 10 mg 06/24/20 11:35 06/26/20 06:14 Oxycodone Hcl Immed Release 5 Mg Tablet PO 10 mg Q4H PRN Administration Pain, Moderate (Pain Scale 4-6 Polyethylene Glycol 17 gm 06/22/20 09:00 06/25/20 09:26 Polyethylene Glycol 3350 17 Gm Powd.Pack PO 17 gm DAILY ERNA Administration Quetiapine Fumarate 200 mg 06/22/20 21:00 06/25/20 20:30 Quetiapine Fumarate 200 Mg Tablet PO 200 mg BEDTIME ERNA Administration Sodium Chloride 2 ml 06/22/20 00:00 06/25/20 20:56 0.9 % Sodium Chloride Flush 3 Ml Syringe IVFLUSH 2 ml QSHIFT ERNA Administration Time Spent With Patient Time: Total time spent is greater than 50% in coordination of care (as documented) at patient's floor/unit and/or counseling patient: Time with patient: less than 15 minutes Progress Note: Quality VTE Deep Vein Thrombosis/Pulmonary Embolism Present on Admission: No
[2020-06-26] MEDS: 0.9 % Sodium Chloride Flush 3 ML SYRINGE 2 ML IVFLUSH ×3 (08:47→20:45)
[2020-06-26] MEDS: Docusate Sodium 100 MG CAPSULE PO ×2 (08:47→20:42)
[2020-06-26] MEDS: Gabapentin 600 MG TABLET PO ×3 (08:48→20:42)
[2020-06-26] MEDS: Amphetamine Mixed Salts 20 MG TABLET PO ×2 (08:48→13:39)
[2020-06-26] MEDS: Lidocaine 4 % Patch ADH..PATCH 1 PATCH TRANSDERMA (08:48)
[2020-06-26] MEDS: buPROPion HCl XL 150 MG TAB.ER.24H PO (08:48)
[2020-06-26 10:04] LABS: MANUAL DIFF FLAG NO
[2020-06-26 10:15] LABS: Basophils Percent Auto 0.5 % (0-2); Eosinophils Absolute Auto 0.1 X10*3/uL (0.0-0.4); Eosinophils Percent Auto 0.7 % (0-4); Hematocrit 27.9 % (42-52); Hemoglobin 8.8 g/dl (14.0-18.0); Imm Gran Abs Auto 0.04 X10*3/uL (0.00-0.03); Imm Gran Pct Auto 0.5 % (0.0-0.4); Lymphocytes Absolute Auto 1.3 X10*3/uL (1.2-4.9); Lymphocytes Percent Auto 14.6 % (20-40); Mean Corpuscular HGB Conc 31.5 g/dl (31.0-36.0); Mean Corpuscular Hemoglobin 27.1 pg (27.0-33.0); Mean Corpuscular Volume 85.8 fL (80-98); Mean Platelet Volume 8.1 fL (9.4-12.4); Monocytes Absolute Auto 0.9 X10*3/uL (0.1-1.2); Monocytes Percent Auto 9.8 % (2-11); Neutrophils Absolute Auto 6.6 X10*3/uL (2.0-8.3); Neutrophils Percent Auto 73.9 % (45-73); Platelet Count 405 X10*3/uL (160-400); Red Blood Count 3.25 X10*6/uL (4.60-5.80); Red Cell Distribution Width 13.1 % (11.0-16.0); White Blood Count 8.9 X10*3/uL (4.8-10.8)
[2020-06-26 10:43] LABS: Anion Gap 11 (12-20); Blood Urea Nitrogen 13 mg/dL (9-16); Calcium 8.2 mg/dL (8.4-10.2); Carbon Dioxide 27 mmol/L (22-29); Chloride 98 mmol/L (96-108); Creatinine Clr Calc Pharmacy 137.5; Estimated Glomerular Filt Rate > 60; Glucose Fasting 99 mg/dL (60-99); Potassium 4.3 mmol/l (3.3-5.1); Sodium 132 mmol/L (135-145)
[2020-06-26] MEDS: Enoxaparin Sodium 60 MG/0.6 ML SYRINGE SUBCUT (11:11)
--- NOTE | 2020-06-26 11:38 | MHC.CM.PN ---
Patient will be going to the OR tomorrow for another wash out to Left knee. Patient is on IV Cefazolin, IV Dilaudid and IV ativan. 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 CM will continue to follow patient for discharge needs.
--- NOTE | 2020-06-26 12:02 | PM.IMPN ---
Subjective Subjective Date of Service: 06/26/20 Interval History: Seen and examined Knee pain but otherwise okay Constitutional Constitutional: Reports chills and Reports fever(s) Cardiovascular Cardiovascular: Denies chest pain and Denies dyspnea Respiratory Respiratory: Denies cough and Denies dyspnea Gastrointestinal Gastrointestinal: Denies abdominal pain, Denies diarrhea, Denies nausea and Denies vomiting Musculoskeletal Musculoskeletal: Reports arthralgias (knee, L) Physical Exam Vital Signs and I&O and Narrative: Vital Signs and I&O: Vital Signs Temp 98.6 F 06/26/20 11:50 Pulse 106 H 06/26/20 11:50 Resp 18 06/26/20 11:50 BP 115/70 06/26/20 11:50 Pulse Ox 97 06/26/20 11:50 Intake & Output 06/25/20 06/26/20 06/26/20 18:59 06:59 18:59 Intake Total 450 / 1150 700 / 1150 Output Total 1400 / 3100 1700 / 3100 Balance -950 / -1950 -1000 / -1950 Urine Output (Aver age ml/kg/hr) 1.96 2.38 Intake: Intake, Oral [place] unt 400 / 1000 600 / 1000 Intake, IV Amoun t 50 / 150 100 / 150 ceFAZolin Sodi um/Dextrose,Iso 2 50 / 150 100 / 150 gm In 50 ml @ 100 mls/hr IV Q8H COUNTS INCLUDE 234 BEDS AT [facility] Rx#:[id number] Output: Output, Urine Am ount 1400 / 3100 1700 / 3100 Other: Meal Refused No NPO No Breakfast % Eate n 100% Lunch % Eaten 100% Dinner % Eaten 100% Evening Snack % Eaten 100 Urine Urinal Urinal Urine Color Yellow Body Mass Index 19.9 Const: General: cooperative, healthy appearing and no acute distress Eyes: Pupils: Equal, round and reactive pupils present Neck: Neck: Yes supple Chest: Chest palpation & inspection: normal inspection of the chest Resp: Effort & Inspection: normal respiratory effort and able to speak in complete sentences Auscultation: clear to auscultation bilaterally Cardio: Jugular venous distension: no JVD Rhythm: regular rhythm Heart sounds: S1 normal heart sound present and S2 normal heart sound present GI: Inspection: Yes normal to inspection Palpation (GI): Soft to palpation Auscultation: normal bowel sounds Skin: General skin exam: no rashes or lesions noted Neuro: Cranial nerves: Yes Equal, round and reactive pupils present Motor exam (neuro): Other motor observations present ( no motor deficit) Extrem: Other: LLE -- Knee with swelling and tenderness Objective Data Current Medications Generic Name Dose Route Start Last Admin Trade Name Ericksonq PRN Reason Stop Dose Admin Acetaminophen 650 mg 06/22/20 00:00 06/25/20 20:28 Acetaminophen 325 Mg Tablet PO 650 mg Q8H PRN Administration Pain, Moderate (Pain Scale 4-6 Amphetamine/Dextroamphetamine 20 mg 06/22/20 08:00 06/26/20 08:48 Amphetamine Mixed Salts 20 Mg Tablet PO 20 mg BID@0800,1400 ERNA Administration Artificial Tears 1 drop 06/25/20 16:31 06/25/20 17:59 Artificial Tears 15 Ml Drops EYE-BOTH 1 drop Q4H PRN Administration Dry Eyes Bupropion HCl 150 mg 06/22/20 09:00 06/26/20 08:48 Bupropion Hcl Xl 150 Mg Tab.Er.24h PO 150 mg DAILY ERNA Administration Clonidine HCl 0.1 mg 06/22/20 21:00 06/25/20 20:30 Clonidine Hcl 0.1 Mg Tablet PO 0.1 mg BEDTIME ERNA Administration Docusate Sodium 100 mg 06/25/20 09:00 06/26/20 08:47 Docusate Sodium 100 Mg Capsule PO 100 mg BID ERNA Administration Gabapentin 600 mg 06/22/20 09:00 06/26/20 08:48 Gabapentin 600 Mg Tablet PO 600 mg TID ERNA Administration Hydromorphone HCl 2 mg 06/25/20 16:31 06/26/20 08:59 Hydromorphone Hcl 1 Mg/Ml Syringe IVPUSH 2 mg Q4H PRN Administration Pain, Severe (Pain Scale 7-10) Cefazolin Sodium/Dextrose 2 gm in 50 mls @ 100 mls/hr 06/22/20 04:00 06/26/20 11:13 Ancef IV 100 mls/hr Q8H ERNA Administration Lidocaine 1 patch 06/22/20 09:00 06/26/20 08:48 Lidocaine 4 % Patch Adh..Patch TRANSDERMA 1 patch DAILY ERNA Administration Protocol Lorazepam 0.5 mg 06/24/20 11:40 06/25/20 17:59 Lorazepam 2 Mg/Ml Vial IVPUSH 0.5 mg Q6H PRN Administration Anxiety Lorazepam 1 mg 06/25/20 16:30 06/26/20 06:13 Lorazepam 0.5 Mg Tablet PO 1 mg Q6H PRN Administration anxiety/restlessness Magnesium Hydroxide 30 ml 06/22/20 00:00 06/25/20 17:59 Milk Of Magnesia 30 Ml Oral.Susp PO 30 ml DAILY PRN Administration Constipation Nicotine Polacrilex 2 mg 06/22/20 00:00 06/26/20 11:29 Nicotine Polacrilex 2 Mg Gum BUCCAL 2 mg Q2H PRN Administration Nicotine Cravings Omeprazole 20 mg 06/22/20 06:30 06/26/20 05:54 Omeprazole 20 Mg Capsule.Dr PO Not Given BID@0630,1630 COUNTS INCLUDE 234 BEDS AT [facility] Oxycodone HCl 10 mg 06/24/20 11:35 06/26/20 11:28 Oxycodone Hcl Immed Release 5 Mg Tablet PO 10 mg Q4H PRN Administration Pain, Moderate (Pain Scale 4-6 Polyethylene Glycol 17 gm 06/22/20 09:00 06/26/20 08:48 Polyethylene Glycol 3350 17 Gm Powd.Pack PO Not Given DAILY COUNTS INCLUDE 234 BEDS AT [facility] Quetiapine Fumarate 200 mg 06/22/20 21:00 06/25/20 20:30 Quetiapine Fumarate 200 Mg Tablet PO 200 mg BEDTIME ERNA Administration Sodium Chloride 2 ml 06/22/20 00:00 06/26/20 08:47 0.9 % Sodium Chloride Flush 3 Ml Syringe IVFLUSH 2 ml QSHIFT ERNA Administration Labs CBC & Chem 7: 06/26/20 12:10 06/26/20 09:45 Labs: Laboratory Results - last 24 hr 06/26/20 06/26/20 09:45 09:45 MCV 85.8 MCH 27.1 MCHC 31.5 RDW 13.1 Plt Count 405 H MPV 8.1 L Immature Gran % (Auto) 0.5 H Neut % (Auto) 73.9 H Lymph % (Auto) 14.6 L [place] % (Auto) 9.8 Eos % (Auto) 0.7 Baso % (Auto) 0.5 Neut # (Auto) 6.6 Lymph # (Auto) 1.3 [place] # (Auto) 0.9 Eos # (Auto) 0.1 Baso # (Auto) 0.0 Abs Immat Gran (auto) 0.04 H Absolute Nucleated RBC 0.000 Nucleated RBC % (auto) 0.0 Anion Gap 11 L Estim Creat Clear Calc 137.5 Estimated GFR > 60 Fasting Glucose 99 Calcium 8.2 L Progress Note: A&P (1) Opioid use disorder: Status: Acute (2) Streptococcal bacteremia: Status: Acute (3) Septic arthritis of knee: Status: Acute (4) Septic pulmonary embolism: Status: Acute (5) Sepsis: Status: Acute (6) Effusion, left knee: Status: Acute Assessment and Plan: This is a 34-year-old male with a past medical history of IV substance abuse who presented to the hospital On 06/11/2020 and was admitted for severe sepsis secondary to bacteremia from intravenous drug use. His hospital course has been further complicated by left knee effusion with multiple arthrocentesis/washouts. He has undergone an MRI of the left knee on 06/23/2020 which shows possible hemarthrosis. 1. severe sepsis secondary to group a strep bacteremia repeat Blood cultures drawn on 06/13/2020 have been negative, plan is for antibiotics for 6 weeks ( end date 07/25/2020). continue IV Kefzol PICC closer to discharge Echo done on 06/13/2020 -- no mention of vegetations 2. left knee effusion Question infectious versus inflammatory Now appears to have developed possible hemarthrosis and plan is for washout tomorrow. Hold Lovenox this evening 3. left upper extremity DVT ultrasound completed on 06/15/2020. On Lovenox, received this morning dose. Will hold this evening dose in preparation for OR tomorrow. CTA done on admission poor quality but no large PE in the main, left or right pulmonary arteries. 4. Acute Anemia ? blood loss vs secondary to on going medical issues repeat h/h stable hold off on prbc tranfusion transfuse below 7 5. Hep C + outpatient f/u and treatment 6. Chronic opiate use was previously on suboxone, which has been stopped in the hospital (pt was refusing it secondary to his uncontrolled pain from L knee effusion) hold suboxone for now continue current narcotic regiment restart suboxone either upon d/c vs once pain control improved Full Code DVT pptx, lovenox Quality VTE Deep Vein Thrombosis/Pulmonary Embolism Present on Admission: No
[2020-06-26 12:34] LABS: Hemoglobin 9.5 g/dl (14.0-18.0)
--- NOTE | 2020-06-26 13:52 | PM.HEMONCCN ---
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 Subsequently he was diagnosed with sepsis secondary to Streptococcus pyogenes bacteremia related to his IV drug abuse. During his hospitalization he developed swelling and pain in his left knee, he was worked up for septic arthritis, which appears to be negative. He also developed cellulitis, abscess of left arm, subsequently diagnosed with DVT diagnosed on 06/15/2020, Doppler revealed thrombus in left axillary and basilic veins. He has a history of hepatitis-C related to IV drug abuse, he has not been treated for this thus far. On admission his hemoglobin was around 12.6 gram/dL, this has gradually come down to below 10 gram/dL. His abdominal pain has actually improved, he denies any hematemesis, hematochezia or melena. He also had leukocytosis and thrombocytosis which is gradually resolving. Review of Systems - Neurologic Reports weakness [facility] Medical History: Medical History (Last Updated 06/26/20 @ 14:08 by Umm Schmitz MD) Eye contusion Hepatitis C IV drug abuse Left upper extremity deep vein thrombosis Home Medications and Allergies Current Medications: Current Medications Generic Name Dose Route Start Last Admin Trade Name Freq PRN Reason Stop Dose Admin Acetaminophen 650 mg 06/22/20 00:00 06/25/20 20:28 Acetaminophen 325 Mg Tablet PO 650 mg Q8H PRN Administration Pain, Moderate (Pain Scale 4-6 Amphetamine/Dextroamphetamine 20 mg 06/22/20 08:00 06/26/20 13:39 Amphetamine Mixed Salts 20 Mg Tablet PO 20 mg BID@0800,1400 ERNA Administration Artificial Tears 1 drop 06/25/20 16:31 06/25/20 17:59 Artificial Tears 15 Ml Drops EYE-BOTH 1 drop Q4H PRN Administration Dry Eyes Bupropion HCl 150 mg 06/22/20 09:00 06/26/20 08:48 Bupropion Hcl Xl 150 Mg Tab.Er.24h PO 150 mg DAILY ERNA Administration Clonidine HCl 0.1 mg 06/22/20 21:00 06/25/20 20:30 Clonidine Hcl 0.1 Mg Tablet PO 0.1 mg BEDTIME ERNA Administration Docusate Sodium 100 mg 06/25/20 09:00 06/26/20 08:47 Docusate Sodium 100 Mg Capsule PO 100 mg BID ERNA Administration Gabapentin 600 mg 06/22/20 09:00 06/26/20 08:48 Gabapentin 600 Mg Tablet PO 600 mg TID ERNA Administration Hydromorphone HCl 2 mg 06/25/20 16:31 06/26/20 13:40 Hydromorphone Hcl 1 Mg/Ml Syringe IVPUSH 2 mg Q4H PRN Administration Pain, Severe (Pain Scale 7-10) Cefazolin Sodium/Dextrose 2 gm in 50 mls @ 100 mls/hr 06/22/20 04:00 06/26/20 12:07 Ancef IV Infused Q8H [facility] Infusion Lidocaine 1 patch 06/22/20 09:00 06/26/20 08:48 Lidocaine 4 % Patch Adh..Patch TRANSDERMA 1 patch DAILY ERNA Administration Protocol Lorazepam 0.5 mg 06/24/20 11:40 06/25/20 17:59 Lorazepam 2 Mg/Ml Vial IVPUSH 0.5 mg Q6H PRN Administration Anxiety Lorazepam 1 mg 06/25/20 16:30 06/26/20 13:39 Lorazepam 0.5 Mg Tablet PO 1 mg Q6H PRN Administration anxiety/restlessness Magnesium Hydroxide 30 ml 06/22/20 00:00 06/25/20 17:59 Milk Of Magnesia 30 Ml Oral.Susp PO 30 ml DAILY PRN Administration Constipation Nicotine Polacrilex 2 mg 06/22/20 00:00 06/26/20 11:29 Nicotine Polacrilex 2 Mg Gum BUCCAL 2 mg Q2H PRN Administration Nicotine Cravings Omeprazole 20 mg 06/22/20 06:30 06/26/20 05:54 Omeprazole 20 Mg Capsule.Dr PO Not Given BID@0630,1630 [facility] Oxycodone HCl 10 mg 06/24/20 11:35 06/26/20 11:28 Oxycodone Hcl Immed Release 5 Mg Tablet PO 10 mg Q4H PRN Administration Pain, Moderate (Pain Scale 4-6 Polyethylene Glycol 17 gm 06/22/20 09:00 06/26/20 08:48 Polyethylene Glycol 3350 17 Gm Powd.Pack PO Not Given DAILY ERNA Quetiapine Fumarate 200 mg 06/22/20 21:00 06/25/20 20:30 Quetiapine Fumarate 200 Mg Tablet PO 200 mg BEDTIME ERNA Administration Sodium Chloride 2 ml 06/22/20 00:00 06/26/20 08:47 0.9 % Sodium Chloride Flush 3 Ml Syringe IVFLUSH 2 ml QSHIFT ERNA Administration Home Medications Medication Instructions Recorded Confirmed Type amphetamine sulfate 20 mg PO BID@0800,1400 06/21/20 06/21/20 History buprenorphine-naloxone 1 film SUBLINGUAL DAILY 06/21/20 06/21/20 History bupropion HCl 150 mg PO QAM 06/21/20 06/21/20 History clonidine HCl 0.1 mg PO BEDTIME 06/21/20 06/21/20 History gabapentin 600 mg PO TID 06/21/20 06/21/20 History quetiapine 200 mg PO BEDTIME 06/21/20 06/21/20 History Allergies Allergy/AdvReac Type Severity Reaction Status Date / Time haloperidol [From HALDOL] Allergy Intermediate LOCK JAW Verified 06/26/20 00:43 olanzapine [From ZYPREXA] AdvReac Unknown PT REPORTS Verified 06/26/20 00:43 FEELS LIKE I AM ON AN ACID TRIP Physical Exam Vital signs: Vital Signs Temp 98.6 F 06/26/20 11:50 Pulse 106 H 06/26/20 11:50 Resp 18 06/26/20 11:50 BP 115/70 06/26/20 11:50 Pulse Ox 97 06/26/20 11:50 Intake & Output 06/25/20 06/26/20 06/26/20 18:59 06:59 18:59 Intake Total 450 / 1150 700 / 1150 50 / 50 Output Total 1400 / 3100 1700 / 3100 Balance -950 / -1950 -1000 / -1950 50 / 50 Urine Output (Average ml/kg/hr) 1.96 2.38 2.38 Intake: Intake, Oral Amount 400 / 1000 600 / 1000 Intake, IV Amount 50 / 150 100 / 150 50 / 50 ceFAZolin Sodium/Dextrose,Iso 2 50 / 150 100 / 150 50 / 50 gm In 50 ml @ 100 mls/hr IV Q8H ERNA Rx#:[id number] Output: Output, Urine Amount 1400 / 3100 1700 / 3100 Other: Meal Refused No NPO No Breakfast % Eaten 100% Lunch % Eaten 100% Dinner % Eaten 100% Evening Snack % Eaten 100 Urine Urinal Urinal Urine Color Yellow Weight 59.421 kg - Constitutional Present: no acute distress - Routine HEENT Exam Head: Present: normal inspection Eye: Present: conjunctival injection - Routine Respiratory Exam Absent: respiratory distress, rhonchi - Routine Cardiovascular Exam Cardiovascular: Present: S1, S2 - Routine Abdominal Exam Present: soft. Absent: organomegaly - Routine Extremities Exam Present: joint swelling, tenderness. Absent: calf tenderness - Detailed Lower Extremity Exam Hip: Left deformity, Left swelling, Left tenderness Hem/Onc Consult Result - Labs CBC & Chem 7: 06/26/20 12:10 06/26/20 09:45 Labs: Short CBC 06/26/20 06/26/20 Range/Units 09:45 12:10 WBC 8.9 (4.8-10.8) X10*3/uL Hgb 8.8 L 9.5 L (14.0-18.0) g/dl Hct 27.9 L (42-52) % Plt Count 405 H (160-400) X10*3/uL BMP 06/26/20 09:45 Sodium 132 L Potassium 4.3 Chloride 98 Carbon Dioxide 27 BUN 13 Creatinine 0.63 Calcium 8.2 L Assessment and Plan (1) Anemia Status: Acute (2) DVT (deep venous thrombosis) Status: Acute Qualifiers: DVT location: upper extremity This is a pleasant 34-year-old male with history of IV drug abuse, left upper extremity DVT diagnosed on in the setting of bacteremia. He has developed left knee swelling, septic arthritis ruled out, appears to have a hematoma. He has gradually worsening anemia which is probably related to chronic inflammation and underlying disease. He may have mild blood loss from hematoma but no obvious gastrointestinal blood losses. Hepatitis-C can also be associated with anemia, immune mediated hemolysis, hypersplenism can cause anemia/cytopenias. Submit iron studies, retic count, vitamin B12 and folic acid levels, liver function tests. He will require anticoagulation for 3 months for his upper extremity DVT which has occurred in the provoked setting. He does not need thrombophilia workup. Lovenox can be held today prior to his surgical procedure which is planned tomorrow. I thank you very much for this consultation.
[2020-06-26 14:59] LABS: Immature Retic Fraction 8.7 % (2.3-13.4); Retic HGB Equivalent 25.9 pg (30.0-35.0); Reticulocyte Percent 1.4 % (0.5-1.8); Reticulocytes Absolute 0.044 X10*6/uL (0.026-0.095)
[2020-06-26 15:19] LABS: Iron 12 mcg/dL (45-160); Percent Iron Saturation 6 % (15-50); Total Iron Binding Capacity 214 mcg/dL (228-428); Unsaturated Iron Binding 202 ug/dL
[2020-06-26 16:01] LABS: Folate 7.8 ng/mL (> or = 4.0); Vitamin B12 315 pg/mL (200-900)
[2020-06-26] MEDS: Omeprazole 20 MG CAPSULE.DR PO (16:13)
--- NOTE | 2020-06-26 20:22 | PC.NURSE ---
At 1900 pt reported to this RN he fell in the bathroom, fall unwitnessed. Pt stated he did not hit his head and fell on his side, pt now in bed. Dr Martinez notified. VSS. High fall risk measures put in place. Pt states he will now use call wild before ambulation.
[2020-06-26] MEDS: QUEtiapine Fumarate 200 MG TABLET PO (20:42)
[2020-06-26] MEDS: cloNIDine HCL 0.1 MG TABLET PO (20:43)
[2020-06-27] VITALS (31 sets, daily range): BP systolic 114–148; BP diastolic 60–87; PULSE 86–118; RESP 16–20; TEMP 36.1–38.1; O2SAT 96–100
[2020-06-27] MEDS: HYDROmorphone HCl 1 MG/ML SYRINGE 2 MG IVPUSH ×4 (01:20→19:50)
[2020-06-27] MEDS: Nicotine Polacrilex 2 MG GUM BUCCAL ×4 (01:32→22:11)
[2020-06-27] MEDS: ceFAZolin Sodium/Dextrose,Iso 2 GM/50 ML PIGGYBACK IV ×3 (03:07→22:01)
[2020-06-27 06:34] LABS: MANUAL DIFF FLAG NO
[2020-06-27 06:53] LABS: Basophils Percent Auto 0.5 % (0-2); Eosinophils Absolute Auto 0.1 X10*3/uL (0.0-0.4); Eosinophils Percent Auto 1.2 % (0-4); Hemoglobin 8.8 g/dl (14.0-18.0); Imm Gran Abs Auto 0.03 X10*3/uL (0.00-0.03); Imm Gran Pct Auto 0.4 % (0.0-0.4); Lymphocytes Absolute Auto 1.7 X10*3/uL (1.2-4.9); Lymphocytes Percent Auto 21.9 % (20-40); Mean Corpuscular HGB Conc 32.6 g/dl (31.0-36.0); Mean Corpuscular Hemoglobin 27.8 pg (27.0-33.0); Mean Corpuscular Volume 85.2 fL (80-98); Mean Platelet Volume 8.2 fL (9.4-12.4); Monocytes Absolute Auto 0.8 X10*3/uL (0.1-1.2); Monocytes Percent Auto 10.1 % (2-11); Neutrophils Percent Auto 65.9 % (45-73); Platelet Count 434 X10*3/uL (160-400); Red Blood Count 3.17 X10*6/uL (4.60-5.80); Red Cell Distribution Width 13.2 % (11.0-16.0); White Blood Count 7.6 X10*3/uL (4.8-10.8)
[2020-06-27 07:24] LABS: Anion Gap 10 (12-20); Blood Urea Nitrogen 12 mg/dL (9-16); Calcium 8.3 mg/dL (8.4-10.2); Carbon Dioxide 29 mmol/L (22-29); Chloride 99 mmol/L (96-108); Creatinine Clr Calc Pharmacy 154.7; Estimated Glomerular Filt Rate > 60; Glucose Fasting 93 mg/dL (60-99); Potassium 4.1 mmol/l (3.3-5.1); Sodium 134 mmol/L (135-145)
[2020-06-27] MEDS: 0.9 % Sodium Chloride Flush 3 ML SYRINGE 2 ML IVFLUSH ×3 (09:13→19:53)
--- NOTE | 2020-06-27 11:31 | HO.ANESPROP2 ---
HPI - Anesthesia Eval Consult details Narrative: 35 m for knee i&d PMFSH Past Medical History Medical History Eye contusion Hepatitis C IV drug abuse Left upper extremity deep vein thrombosis Social History Social History Smoking Status: Former smoker Smoked in Last 30 Days: No Use of substances other than those prescribed or required for medical reasons: Yes Substance Use Type Other:: pcp Substance Use Frequency: Daily Currently Displaying Signs/Symptoms of Drug Intoxication Withdrawal: No Advance Directives: No Advance Directives Information Provided: No Do you have thoughts of harming others: None Do you have a plan to hurt others: No Plan Meds Allergies Allergy/AdvReac Type Severity Reaction Status Date / Time haloperidol [From HALDOL] AdvReac Intermediate LOCK JAW Verified 06/26/20 17:37 olanzapine [From ZYPREXA] AdvReac Unknown PT REPORTS Verified 06/26/20 00:43 FEELS LIKE I AM ON AN ACID TRIP Home Medications Medication Instructions Recorded Confirmed Type amphetamine sulfate 20 mg PO BID@0800,1400 06/21/20 06/21/20 History buprenorphine-naloxone 1 film SUBLINGUAL DAILY 06/21/20 06/21/20 History bupropion HCl 150 mg PO QAM 06/21/20 06/21/20 History clonidine HCl 0.1 mg PO BEDTIME 06/21/20 06/21/20 History gabapentin 600 mg PO TID 06/21/20 06/21/20 History quetiapine 200 mg PO BEDTIME 06/21/20 06/21/20 History Exam Exam Date and Time: June 27, 2020 1131 Height,Weight and Vital Signs: Height 5 ft 8 in Weight 59.421 kg Last Vital Signs Temp 99.3 F 06/27/20 10:48 Pulse 99 06/27/20 10:48 Resp 16 06/27/20 10:48 BP 127/78 06/27/20 10:48 Pulse Ox 96 06/27/20 10:48 Pertinent Lab Results Pertinent Lab Results: Laboratory Tests 06/11/20 06/11/20 06/11/20 15:51 15:51 15:51 WBC RBC Hgb Hct MCV MCH MCHC RDW RDW Coeff of [place] Plt Count MPV Immature Gran % (Auto) Neut % (Auto) Lymph % (Auto) [place] % (Auto) Eos % (Auto) Baso % (Auto) Neut # (Auto) Lymph # (Auto) [place] # (Auto) Eos # (Auto) Baso # (Auto) Abs Immat Gran (auto) Absolute Lymphs (auto) Absolute Monos (auto) Absolute Eos (auto) Absolute Basos (auto) Absolute Nucleated RBC Nucleated RBC % (auto) Absolute Neutrophils Smear Tech's Comments Absolute Retic Percent Retic Immature Retic Fraction Retic Hgb Equivalent PT INR APTT PTT (Heparin Protocol) D-Dimer Hold Blue Top Sodium 135 Potassium 3.5 Chloride 92 L Carbon Dioxide Bicarbonate 29 Anion Gap 18 BUN 27 H D Creatinine 0.85 Estimated Creat Clear 101.3 Estim Creat Clear Calc Estimated GFR Est GFR (Non-Af Amer) > 60 Random Glucose 114 Fasting Glucose Lactic Acid Calcium Magnesium 2.6 Iron TIBC % Saturation Unsat Iron Binding Ferritin 551 H Total Bilirubin 0.6 Direct Bilirubin 0.4 AST 37 D ALT 48 H Alkaline Phosphatase 107 Creatine Kinase Troponin I High Sens < 3.5 C-Reactive Protein 41.85 H B-Natriuretic Peptide 24 Total Protein 9.1 H Albumin 4.2 Lipase 15 Vitamin B12 Folate Procalcitonin 3.17 Urine Color Urine Appearance Urine pH Ur Specific [place] Urine Protein Urine Glucose (UA) Urine Ketones Urine Blood Urine Nitrite Urine WBC (Auto) Urine RBC Urine WBC Ur Epithelial Cells Urine Bacteria Urine Casts Synovial Source Synovial WBC Synovial RBC Synovial Neutrophils Synovial Monocytes Stool Occult Blood Vancomycin Trough Urine Opiates Screen Ur Barbiturates Screen Phencyclidine Screen Ur Amphetamines Screen U Benzodiazepines Scrn Urine Cocaine Screen U Cannabinoids Screen Ethyl Alcohol Respiratory Panel [place] Adenovirus (PCR) B.pert (TEM-PCR) B.parapertussis DNA PCR C. pneumoniae DNA (PCR) Coronavirus (PCR) Coronavirus OC43 (PCR) Coronavirus HKU1 (PCR) Coronavirus 229E (PCR) Coronavirus NL63 (PCR) Hepatitis C Ab (EIA) Hep C Viral Load HIV 1&2 Antigen & Ab Human Metapneumovir PCR Influenza A (RT-PCR) Influenza B (RT-PCR) M. pneumoniae (PCR) Parainfluenza 1 (PCR) Parainfluenza 2 (PCR) Parainfluenza 3 (PCR) Parainfluenza 4 (PCR) RSV (RT-PCR) Entero/Rhino (PCR) SARS Virus RNA (RT-PCR) 06/11/20 06/11/20 06/11/20 15:51 15:51 15:51 WBC 32.0 H* RBC 5.78 Hgb 15.9 Hct 48.5 MCV 83.9 MCH 27.5 MCHC 32.8 RDW RDW Coeff of [place] 13.8 Plt Count 362 MPV 9.9 Immature Gran % (Auto) 0.8 H Neut % (Auto) 89.7 H Lymph % (Auto) 1.9 L [place] % (Auto) 6.9 Eos % (Auto) 0.3 Baso % (Auto) 0.4 Neut # (Auto) Lymph # (Auto) [place] # (Auto) Eos # (Auto) Baso # (Auto) Abs Immat Gran (auto) 0.24 H Absolute Lymphs (auto) 0.6 L Absolute Monos (auto) 2.2 H Absolute Eos (auto) 0.1 Absolute Basos (auto) 0.1 Absolute Nucleated RBC 0.000 Nucleated RBC % (auto) 0.0 Absolute Neutrophils 28.7 H Smear Tech's Comments VERIFIED Absolute Retic Percent Retic Immature Retic Fraction Retic Hgb Equivalent PT 16.5 H D INR 1.4 H APTT 39.2 H PTT (Heparin Protocol) D-Dimer 2650 Hold Blue Top SEE NOTE Sodium Potassium Chloride Carbon Dioxide Bicarbonate Anion Gap BUN Creatinine Estimated Creat Clear Estim Creat Clear Calc Estimated GFR Est GFR (Non-Af Amer) Random Glucose Fasting Glucose Lactic Acid Calcium Magnesium Iron TIBC % Saturation Unsat Iron Binding Ferritin Total Bilirubin Direct Bilirubin AST ALT Alkaline Phosphatase Creatine Kinase 263 H Troponin I High Sens C-Reactive Protein B-Natriuretic Peptide Total Protein Albumin Lipase Vitamin B12 Folate Procalcitonin Urine Color Urine Appearance Urine pH Ur Specific [place] Urine Protein Urine Glucose (UA) Urine Ketones Urine Blood Urine Nitrite Urine WBC (Auto) Urine RBC Urine WBC Ur Epithelial Cells Urine Bacteria Urine Casts Synovial Source Synovial WBC Synovial RBC Synovial Neutrophils Synovial Monocytes Stool Occult Blood Vancomycin Trough Urine Opiates Screen Ur Barbiturates Screen Phencyclidine Screen Ur Amphetamines Screen U Benzodiazepines Scrn Urine Cocaine Screen U Cannabinoids Screen Ethyl Alcohol Respiratory Panel [place] Adenovirus (PCR) B.pert (TEM-PCR) B.parapertussis DNA PCR C. pneumoniae DNA (PCR) Coronavirus (PCR) Coronavirus OC43 (PCR) Coronavirus HKU1 (PCR) Coronavirus 229E (PCR) Coronavirus NL63 (PCR) Hepatitis C Ab (EIA) Hep C Viral Load HIV 1&2 Antigen & Ab Human Metapneumovir PCR Influenza A (RT-PCR) Influenza B (RT-PCR) M. pneumoniae (PCR) Parainfluenza 1 (PCR) Parainfluenza 2 (PCR) Parainfluenza 3 (PCR) Parainfluenza 4 (PCR) RSV (RT-PCR) Entero/Rhino (PCR) SARS Virus RNA (RT-PCR) 06/11/20 06/11/20 06/11/20 15:51 16:42 16:50 WBC RBC Hgb Hct MCV MCH MCHC RDW RDW Coeff of [place] Plt Count MPV Immature Gran % (Auto) Neut % (Auto) Lymph % (Auto) [place] % (Auto) Eos % (Auto) Baso % (Auto) Neut # (Auto) Lymph # (Auto) [place] # (Auto) Eos # (Auto) Baso # (Auto) Abs Immat Gran (auto) Absolute Lymphs (auto) Absolute Monos (auto) Absolute Eos (auto) Absolute Basos (auto) Absolute Nucleated RBC Nucleated RBC % (auto) Absolute Neutrophils Smear Tech's Comments Absolute Retic Percent Retic Immature Retic Fraction Retic Hgb Equivalent PT INR APTT PTT (Heparin Protocol) D-Dimer Hold Blue Top Sodium Potassium Chloride Carbon Dioxide Bicarbonate Anion Gap BUN Creatinine Estimated Creat Clear Estim Creat Clear Calc Estimated GFR Est GFR (Non-Af Amer) Random Glucose Fasting Glucose Lactic Acid Cancelled 2.2 H* Calcium Magnesium Iron TIBC % Saturation Unsat Iron Binding Ferritin Total Bilirubin Direct Bilirubin AST ALT Alkaline Phosphatase Creatine Kinase Troponin I High Sens C-Reactive Protein B-Natriuretic Peptide Total Protein Albumin Lipase Vitamin B12 Folate Procalcitonin Urine Color Urine Appearance Urine pH Ur Specific [place] Urine Protein Urine Glucose (UA) Urine Ketones Urine Blood Urine Nitrite Urine WBC (Auto) Urine RBC Urine WBC Ur Epithelial Cells Urine Bacteria Urine Casts Synovial Source Synovial WBC Synovial RBC Synovial Neutrophils Synovial Monocytes Stool Occult Blood Vancomycin Trough Urine Opiates Screen Ur Barbiturates Screen Phencyclidine Screen Ur Amphetamines Screen U Benzodiazepines Scrn Urine Cocaine Screen U Cannabinoids Screen Ethyl Alcohol < 10 Respiratory Panel [place] Adenovirus (PCR) B.pert (TEM-PCR) B.parapertussis DNA PCR C. pneumoniae DNA (PCR) Coronavirus (PCR) Coronavirus OC43 (PCR) Coronavirus HKU1 (PCR) Coronavirus 229E (PCR) Coronavirus NL63 (PCR) Hepatitis C Ab (EIA) Hep C Viral Load HIV 1&2 Antigen & Ab Human Metapneumovir PCR Influenza A (RT-PCR) Influenza B (RT-PCR) M. pneumoniae (PCR) Parainfluenza 1 (PCR) Parainfluenza 2 (PCR) Parainfluenza 3 (PCR) Parainfluenza 4 (PCR) RSV (RT-PCR) Entero/Rhino (PCR) SARS Virus RNA (RT-PCR) 06/11/20 06/11/20 06/11/20 19:02 19:02 19:02 WBC RBC Hgb Hct MCV MCH MCHC RDW RDW Coeff of [place] Plt Count MPV Immature Gran % (Auto) Neut % (Auto) Lymph % (Auto) [place] % (Auto) Eos % (Auto) Baso % (Auto) Neut # (Auto) Lymph # (Auto) [place] # (Auto) Eos # (Auto) Baso # (Auto) Abs Immat Gran (auto) Absolute Lymphs (auto) Absolute Monos (auto) Absolute Eos (auto) Absolute Basos (auto) Absolute Nucleated RBC Nucleated RBC % (auto) Absolute Neutrophils Smear Tech's Comments Absolute Retic Percent Retic Immature Retic Fraction Retic Hgb Equivalent PT INR APTT PTT (Heparin Protocol) D-Dimer Hold Blue Top Sodium Potassium Chloride Carbon Dioxide Bicarbonate Anion Gap BUN Creatinine Estimated Creat Clear Estim Creat Clear Calc Estimated GFR Est GFR (Non-Af Amer) Random Glucose Fasting Glucose Lactic Acid 2.1 H* Calcium Magnesium Iron TIBC % Saturation Unsat Iron Binding Ferritin Total Bilirubin Direct Bilirubin AST ALT Alkaline Phosphatase Creatine Kinase Troponin I High Sens C-Reactive Protein B-Natriuretic Peptide Total Protein Albumin Lipase Vitamin B12 Folate Procalcitonin Urine Color YELLOW Urine Appearance CLEAR Urine pH 5.5 Ur Specific [place] 1.020 Urine Protein 2+ H Urine Glucose (UA) NEG Urine Ketones NEG Urine Blood 1+ H Urine Nitrite NEG Urine WBC (Auto) NEG Urine RBC 5-9 H Urine WBC 1-4 Ur Epithelial Cells NONE Urine Bacteria TRACE Urine Casts HYALINE 5-9 Synovial Source Synovial WBC Synovial RBC Synovial Neutrophils Synovial Monocytes Stool Occult Blood Vancomycin Trough Urine Opiates Screen POSITIVE H Ur Barbiturates Screen NOT DETECTED Phencyclidine Screen NOT DETECTED Ur Amphetamines Screen NOT DETECTED U Benzodiazepines Scrn NOT DETECTED Urine Cocaine Screen POSITIVE H U Cannabinoids Screen POSITIVE H Ethyl Alcohol Respiratory Panel [place] Adenovirus (PCR) B.pert (TEM-PCR) B.parapertussis DNA PCR C. pneumoniae DNA (PCR) Coronavirus (PCR) Coronavirus OC43 (PCR) Coronavirus HKU1 (PCR) Coronavirus 229E (PCR) Coronavirus NL63 (PCR) Hepatitis C Ab (EIA) Hep C Viral Load HIV 1&2 Antigen & Ab Human Metapneumovir PCR Influenza A (RT-PCR) Influenza B (RT-PCR) M. pneumoniae (PCR) Parainfluenza 1 (PCR) Parainfluenza 2 (PCR) Parainfluenza 3 (PCR) Parainfluenza 4 (PCR) RSV (RT-PCR) Entero/Rhino (PCR) SARS Virus RNA (RT-PCR) 06/11/20 06/11/20 06/12/20 19:02 21:59 06:09 WBC RBC Hgb Hct MCV MCH MCHC RDW RDW Coeff of [place] Plt Count MPV Immature Gran % (Auto) Neut % (Auto) Lymph % (Auto) [place] % (Auto) Eos % (Auto) Baso % (Auto) Neut # (Auto) Lymph # (Auto) [place] # (Auto) Eos # (Auto) Baso # (Auto) Abs Immat Gran (auto) Absolute Lymphs (auto) Absolute Monos (auto) Absolute Eos (auto) Absolute Basos (auto) Absolute Nucleated RBC Nucleated RBC % (auto) Absolute Neutrophils Smear Tech's Comments Absolute Retic Percent Retic Immature Retic Fraction Retic Hgb Equivalent PT INR APTT PTT (Heparin Protocol) D-Dimer Hold Blue Top Sodium 134 L Potassium 3.3 Chloride 100 Carbon Dioxide Bicarbonate 23 Anion Gap 14 BUN 20 H Creatinine 0.65 Estimated Creat Clear 132.2 Estim Creat Clear Calc Estimated GFR Est GFR (Non-Af Amer) > 60 Random Glucose Fasting Glucose 115 H D Lactic Acid 1.9 Calcium 8.2 L Magnesium Iron TIBC % Saturation Unsat Iron Binding Ferritin Total Bilirubin Direct Bilirubin AST ALT Alkaline Phosphatase Creatine Kinase Troponin I High Sens C-Reactive Protein B-Natriuretic Peptide Total Protein Albumin Lipase Vitamin B12 Folate Procalcitonin Urine Color Urine Appearance Urine pH Ur Specific [place] Urine Protein Urine Glucose (UA) Urine Ketones Urine Blood Urine Nitrite Urine WBC (Auto) Urine RBC Urine WBC Ur Epithelial Cells Urine Bacteria Urine Casts Synovial Source Synovial WBC Synovial RBC Synovial Neutrophils Synovial Monocytes Stool Occult Blood Vancomycin Trough Urine Opiates Screen Ur Barbiturates Screen Phencyclidine Screen Ur Amphetamines Screen U Benzodiazepines Scrn Urine Cocaine Screen U Cannabinoids Screen Ethyl Alcohol Respiratory Panel [place] Adenovirus (PCR) B.pert (TEM-PCR) B.parapertussis DNA PCR C. pneumoniae DNA (PCR) Coronavirus (PCR) Not Detected Coronavirus OC43 (PCR) Coronavirus HKU1 (PCR) Coronavirus 229E (PCR) Coronavirus NL63 (PCR) Hepatitis C Ab (EIA) Hep C Viral Load HIV 1&2 Antigen & Ab Human Metapneumovir PCR Influenza A (RT-PCR) Influenza B (RT-PCR) M. pneumoniae (PCR) Parainfluenza 1 (PCR) Parainfluenza 2 (PCR) Parainfluenza 3 (PCR) Parainfluenza 4 (PCR) RSV (RT-PCR) Entero/Rhino (PCR) SARS Virus RNA (RT-PCR) 06/12/20 06/12/20 06/12/20 06:09 06:09 07:20 WBC 27.7 H RBC 4.42 L D Hgb 12.6 L D Hct 37.3 L D MCV 84.4 MCH 28.5 MCHC 33.8 RDW RDW Coeff of [place] 13.7 Plt Count 325 MPV 9.4 Immature Gran % (Auto) 0.9 H Neut % (Auto) 89.0 H Lymph % (Auto) 3.4 L [place] % (Auto) 6.5 Eos % (Auto) 0.0 Baso % (Auto) 0.2 Neut # (Auto) Lymph # (Auto) [place] # (Auto) Eos # (Auto) Baso # (Auto) Abs Immat Gran (auto) 0.25 H Absolute Lymphs (auto) 0.9 L Absolute Monos (auto) 1.8 H Absolute Eos (auto) 0.0 Absolute Basos (auto) 0.1 Absolute Nucleated RBC 0.000 Nucleated RBC % (auto) 0.0 Absolute Neutrophils 24.7 H Smear Tech's Comments VERIFIED Absolute Retic Percent Retic Immature Retic Fraction Retic Hgb Equivalent PT INR APTT PTT (Heparin Protocol) D-Dimer Hold Blue Top Sodium Potassium Chloride Carbon Dioxide Bicarbonate Anion Gap BUN Creatinine Estimated Creat Clear Estim Creat Clear Calc Estimated GFR Est GFR (Non-Af Amer) Random Glucose Fasting Glucose Lactic Acid Calcium Magnesium Iron TIBC % Saturation Unsat Iron Binding Ferritin Total Bilirubin Direct Bilirubin AST ALT Alkaline Phosphatase Creatine Kinase Troponin I High Sens C-Reactive Protein B-Natriuretic Peptide Total Protein Albumin Lipase Vitamin B12 Folate Procalcitonin Urine Color Urine Appearance Urine pH Ur Specific [place] Urine Protein Urine Glucose (UA) Urine Ketones Urine Blood Urine Nitrite Urine WBC (Auto) Urine RBC Urine WBC Ur Epithelial Cells Urine Bacteria Urine Casts Synovial Source Synovial WBC Synovial RBC Synovial Neutrophils Synovial Monocytes Stool Occult Blood Vancomycin Trough Urine Opiates Screen Ur Barbiturates Screen Phencyclidine Screen Ur Amphetamines Screen U Benzodiazepines Scrn Urine Cocaine Screen U Cannabinoids Screen Ethyl Alcohol Respiratory Panel [place] SEE NOTE Adenovirus (PCR) NOT DETECTED B.pert (TEM-PCR) NOT DETECTED B.parapertussis DNA PCR NOT DETECTED C. pneumoniae DNA (PCR) NOT DETECTED Coronavirus (PCR) Coronavirus OC43 (PCR) NOT DETECTED Coronavirus HKU1 (PCR) NOT DETECTED Coronavirus 229E (PCR) NOT DETECTED Coronavirus NL63 (PCR) NOT DETECTED Hepatitis C Ab (EIA) REACTIVE H Hep C Viral Load HIV 1&2 Antigen & Ab NONREACTIVE Human Metapneumovir PCR NOT DETECTED Influenza A (RT-PCR) NOT DETECTED Influenza B (RT-PCR) NOT DETECTED M. pneumoniae (PCR) NOT DETECTED Parainfluenza 1 (PCR) NOT DETECTED Parainfluenza 2 (PCR) NOT DETECTED Parainfluenza 3 (PCR) NOT DETECTED Parainfluenza 4 (PCR) NOT DETECTED RSV (RT-PCR) NOT DETECTED Entero/Rhino (PCR) NOT DETECTED SARS Virus RNA (RT-PCR) NOT DETECTED 06/12/20 06/12/20 06/13/20 16:35 18:50 04:54 WBC RBC Hgb Hct MCV MCH MCHC RDW RDW Coeff of [place] Plt Count MPV Immature Gran % (Auto) Neut % (Auto) Lymph % (Auto) [place] % (Auto) Eos % (Auto) Baso % (Auto) Neut # (Auto) Lymph # (Auto) [place] # (Auto) Eos # (Auto) Baso # (Auto) Abs Immat Gran (auto) Absolute Lymphs (auto) Absolute Monos (auto) Absolute Eos (auto) Absolute Basos (auto) Absolute Nucleated RBC Nucleated RBC % (auto) Absolute Neutrophils Smear Tech's Comments Absolute Retic Percent Retic Immature Retic Fraction Retic Hgb Equivalent PT INR APTT PTT (Heparin Protocol) D-Dimer Hold Blue Top Sodium Potassium Chloride Carbon Dioxide Bicarbonate Anion Gap BUN Creatinine Estimated Creat Clear Estim Creat Clear Calc Estimated GFR Est GFR (Non-Af Amer) Random Glucose Fasting Glucose Lactic Acid Calcium Magnesium Iron TIBC % Saturation Unsat Iron Binding Ferritin Total Bilirubin Direct Bilirubin AST ALT Alkaline Phosphatase Creatine Kinase Troponin I High Sens C-Reactive Protein B-Natriuretic Peptide Total Protein Albumin Lipase Vitamin B12 Folate Procalcitonin Urine Color Urine Appearance Urine pH Ur Specific [place] Urine Protein Urine Glucose (UA) Urine Ketones Urine Blood Urine Nitrite Urine WBC (Auto) Urine RBC Urine WBC Ur Epithelial Cells Urine Bacteria Urine Casts Synovial Source Synovial WBC Synovial RBC Synovial Neutrophils Synovial Monocytes Stool Occult Blood POS H Vancomycin Trough 20.2 H Urine Opiates Screen Ur Barbiturates Screen Phencyclidine Screen Ur Amphetamines Screen U Benzodiazepines Scrn Urine Cocaine Screen U Cannabinoids Screen Ethyl Alcohol Respiratory Panel [place] Adenovirus (PCR) B.pert (TEM-PCR) B.parapertussis DNA PCR C. pneumoniae DNA (PCR) Coronavirus (PCR) Coronavirus OC43 (PCR) Coronavirus HKU1 (PCR) Coronavirus 229E (PCR) Coronavirus NL63 (PCR) Hepatitis C Ab (EIA) Hep C Viral Load 6.39 H HIV 1&2 Antigen & Ab Human Metapneumovir PCR Influenza A (RT-PCR) Influenza B (RT-PCR) M. pneumoniae (PCR) Parainfluenza 1 (PCR) Parainfluenza 2 (PCR) Parainfluenza 3 (PCR) Parainfluenza 4 (PCR) RSV (RT-PCR) Entero/Rhino (PCR) SARS Virus RNA (RT-PCR) 06/13/20 06/13/20 06/13/20 04:54 04:54 15:15 WBC 17.5 H RBC 4.25 L Hgb 11.7 L Hct 36.1 L MCV 84.9 MCH 27.5 MCHC 32.4 RDW RDW Coeff of [place] 14.0 Plt Count 192 D MPV 10.7 Immature Gran % (Auto) Neut % (Auto) Lymph % (Auto) [place] % (Auto) Eos % (Auto) Baso % (Auto) Neut # (Auto) Lymph # (Auto) [place] # (Auto) Eos # (Auto) Baso # (Auto) Abs Immat Gran (auto) Absolute Lymphs (auto) Absolute Monos (auto) Absolute Eos (auto) Absolute Basos (auto) Absolute Nucleated RBC 0.000 Nucleated RBC % (auto) 0.0 Absolute Neutrophils Smear Tech's Comments Absolute Retic Percent Retic Immature Retic Fraction Retic Hgb Equivalent PT INR APTT PTT (Heparin Protocol) D-Dimer Hold Blue Top Sodium 133 L Potassium 3.0 L Chloride 102 Carbon Dioxide Bicarbonate 22 Anion Gap 12 BUN 14 Creatinine 0.56 Estimated Creat Clear 153.5 Estim Creat Clear Calc Estimated GFR Est GFR (Non-Af Amer) > 60 Random Glucose Fasting Glucose 120 H Lactic Acid Calcium 8.0 L Magnesium Iron TIBC % Saturation Unsat Iron Binding Ferritin Total Bilirubin Direct Bilirubin AST ALT Alkaline Phosphatase Creatine Kinase Troponin I High Sens C-Reactive Protein B-Natriuretic Peptide Total Protein Albumin Lipase Vitamin B12 Folate Procalcitonin Urine Color Urine Appearance Urine pH Ur Specific [place] Urine Protein Urine Glucose (UA) Urine Ketones Urine Blood Urine Nitrite Urine WBC (Auto) Urine RBC Urine WBC Ur Epithelial Cells Urine Bacteria Urine Casts Synovial Source . Synovial WBC 19200.000 Synovial RBC < 0.002 Synovial Neutrophils 89 Synovial Monocytes 11 Stool Occult Blood Vancomycin Trough Urine Opiates Screen Ur Barbiturates Screen Phencyclidine Screen Ur Amphetamines Screen U Benzodiazepines Scrn Urine Cocaine Screen U Cannabinoids Screen Ethyl Alcohol Respiratory Panel [place] Adenovirus (PCR) B.pert (TEM-PCR) B.parapertussis DNA PCR C. pneumoniae DNA (PCR) Coronavirus (PCR) Coronavirus OC43 (PCR) Coronavirus HKU1 (PCR) Coronavirus 229E (PCR) Coronavirus NL63 (PCR) Hepatitis C Ab (EIA) Hep C Viral Load HIV 1&2 Antigen & Ab Human Metapneumovir PCR Influenza A (RT-PCR) Influenza B (RT-PCR) M. pneumoniae (PCR) Parainfluenza 1 (PCR) Parainfluenza 2 (PCR) Parainfluenza 3 (PCR) Parainfluenza 4 (PCR) RSV (RT-PCR) Entero/Rhino (PCR) SARS Virus RNA (RT-PCR) 06/14/20 06/14/20 06/15/20 05:56 05:56 05:30 WBC 11.9 H RBC 4.22 L Hgb 11.8 L Hct 36.5 L MCV 86.5 MCH 28.0 MCHC 32.3 RDW RDW Coeff of [place] 14.2 Plt Count 323 D MPV 9.4 Immature Gran % (Auto) Neut % (Auto) Lymph % (Auto) [place] % (Auto) Eos % (Auto) Baso % (Auto) Neut # (Auto) Lymph # (Auto) [place] # (Auto) Eos # (Auto) Baso # (Auto) Abs Immat Gran (auto) Absolute Lymphs (auto) Absolute Monos (auto) Absolute Eos (auto) Absolute Basos (auto) Absolute Nucleated RBC 0.000 Nucleated RBC % (auto) 0.0 Absolute Neutrophils Smear Tech's Comments Absolute Retic Percent Retic Immature Retic Fraction Retic Hgb Equivalent PT INR APTT PTT (Heparin Protocol) D-Dimer Hold Blue Top Sodium 138 137 Potassium 3.6 3.5 Chloride 109 H 107 Carbon Dioxide Bicarbonate 21 L 23 Anion Gap 12 11 L BUN 12 7 L Creatinine 0.53 0.55 Estimated Creat Clear 162.2 156.3 Estim Creat Clear Calc Estimated GFR Est GFR (Non-Af Amer) > 60 > 60 Random Glucose 89 Fasting Glucose 77 D Lactic Acid Calcium 7.9 L Magnesium Iron TIBC % Saturation Unsat Iron Binding Ferritin Total Bilirubin Direct Bilirubin AST ALT Alkaline Phosphatase Creatine Kinase Troponin I High Sens C-Reactive Protein B-Natriuretic Peptide Total Protein Albumin Lipase Vitamin B12 Folate Procalcitonin Urine Color Urine Appearance Urine pH Ur Specific [place] Urine Protein Urine Glucose (UA) Urine Ketones Urine Blood Urine Nitrite Urine WBC (Auto) Urine RBC Urine WBC Ur Epithelial Cells Urine Bacteria Urine Casts Synovial Source Synovial WBC Synovial RBC Synovial Neutrophils Synovial Monocytes Stool Occult Blood Vancomycin Trough Urine Opiates Screen Ur Barbiturates Screen Phencyclidine Screen Ur Amphetamines Screen U Benzodiazepines Scrn Urine Cocaine Screen U Cannabinoids Screen Ethyl Alcohol Respiratory Panel [place] Adenovirus (PCR) B.pert (TEM-PCR) B.parapertussis DNA PCR C. pneumoniae DNA (PCR) Coronavirus (PCR) Coronavirus OC43 (PCR) Coronavirus HKU1 (PCR) Coronavirus 229E (PCR) Coronavirus NL63 (PCR) Hepatitis C Ab (EIA) Hep C Viral Load HIV 1&2 Antigen & Ab Human Metapneumovir PCR Influenza A (RT-PCR) Influenza B (RT-PCR) M. pneumoniae (PCR) Parainfluenza 1 (PCR) Parainfluenza 2 (PCR) Parainfluenza 3 (PCR) Parainfluenza 4 (PCR) RSV (RT-PCR) Entero/Rhino (PCR) SARS Virus RNA (RT-PCR) 06/15/20 06/15/20 06/15/20 15:01 15:01 22:27 WBC RBC Hgb Hct MCV MCH MCHC RDW RDW Coeff of [place] Plt Count MPV Immature Gran % (Auto) Neut % (Auto) Lymph % (Auto) [place] % (Auto) Eos % (Auto) Baso % (Auto) Neut # (Auto) Lymph # (Auto) [place] # (Auto) Eos # (Auto) Baso # (Auto) Abs Immat Gran (auto) Absolute Lymphs (auto) Absolute Monos (auto) Absolute Eos (auto) Absolute Basos (auto) Absolute Nucleated RBC Nucleated RBC % (auto) Absolute Neutrophils Smear Tech's Comments Absolute Retic Percent Retic Immature Retic Fraction Retic Hgb Equivalent PT 14.9 H INR 1.3 H APTT 35.1 PTT (Heparin Protocol) 36.5 L D-Dimer Hold Blue Top Sodium Potassium Chloride Carbon Dioxide Bicarbonate Anion Gap BUN Creatinine Estimated Creat Clear Estim Creat Clear Calc Estimated GFR Est GFR (Non-Af Amer) Random Glucose Fasting Glucose Lactic Acid Calcium Magnesium Iron TIBC % Saturation Unsat Iron Binding Ferritin Total Bilirubin Direct Bilirubin AST ALT Alkaline Phosphatase Creatine Kinase Troponin I High Sens C-Reactive Protein B-Natriuretic Peptide Total Protein Albumin Lipase Vitamin B12 Folate Procalcitonin Urine Color Urine Appearance Urine pH Ur Specific [place] Urine Protein Urine Glucose (UA) Urine Ketones Urine Blood Urine Nitrite Urine WBC (Auto) Urine RBC Urine WBC Ur Epithelial Cells Urine Bacteria Urine Casts Synovial Source Synovial WBC Synovial RBC Synovial Neutrophils Synovial Monocytes Stool Occult Blood Vancomycin Trough Urine Opiates Screen Ur Barbiturates Screen Phencyclidine Screen Ur Amphetamines Screen U Benzodiazepines Scrn Urine Cocaine Screen U Cannabinoids Screen Ethyl Alcohol Respiratory Panel [place] Adenovirus (PCR) B.pert (TEM-PCR) B.parapertussis DNA PCR C. pneumoniae DNA (PCR) Coronavirus (PCR) Coronavirus OC43 (PCR) Coronavirus HKU1 (PCR) Coronavirus 229E (PCR) Coronavirus NL63 (PCR) Hepatitis C Ab (EIA) Hep C Viral Load HIV 1&2 Antigen & Ab Human Metapneumovir PCR Influenza A (RT-PCR) Influenza B (RT-PCR) M. pneumoniae (PCR) Parainfluenza 1 (PCR) Parainfluenza 2 (PCR) Parainfluenza 3 (PCR) Parainfluenza 4 (PCR) RSV (RT-PCR) Entero/Rhino (PCR) SARS Virus RNA (RT-PCR) 06/16/20 06/16/20 06/16/20 04:55 06:58 14:20 WBC RBC Hgb Hct MCV MCH MCHC RDW RDW Coeff of [place] Plt Count MPV Immature Gran % (Auto) Neut % (Auto) Lymph % (Auto) [place] % (Auto) Eos % (Auto) Baso % (Auto) Neut # (Auto) Lymph # (Auto) [place] # (Auto) Eos # (Auto) Baso # (Auto) Abs Immat Gran (auto) Absolute Lymphs (auto) Absolute Monos (auto) Absolute Eos (auto) Absolute Basos (auto) Absolute Nucleated RBC Nucleated RBC % (auto) Absolute Neutrophils Smear Tech's Comments Absolute Retic Percent Retic Immature Retic Fraction Retic Hgb Equivalent PT INR APTT PTT (Heparin Protocol) 39.5 L 38.3 L 37.9 L D-Dimer Hold Blue Top Sodium Potassium Chloride Carbon Dioxide Bicarbonate Anion Gap BUN Creatinine Estimated Creat Clear Estim Creat Clear Calc Estimated GFR Est GFR (Non-Af Amer) Random Glucose Fasting Glucose Lactic Acid Calcium Magnesium Iron TIBC % Saturation Unsat Iron Binding Ferritin Total Bilirubin Direct Bilirubin AST ALT Alkaline Phosphatase Creatine Kinase Troponin I High Sens C-Reactive Protein B-Natriuretic Peptide Total Protein Albumin Lipase Vitamin B12 Folate Procalcitonin Urine Color Urine Appearance Urine pH Ur Specific [place] Urine Protein Urine Glucose (UA) Urine Ketones Urine Blood Urine Nitrite Urine WBC (Auto) Urine RBC Urine WBC Ur Epithelial Cells Urine Bacteria Urine Casts Synovial Source Synovial WBC Synovial RBC Synovial Neutrophils Synovial Monocytes Stool Occult Blood Vancomycin Trough Urine Opiates Screen Ur Barbiturates Screen Phencyclidine Screen Ur Amphetamines Screen U Benzodiazepines Scrn Urine Cocaine Screen U Cannabinoids Screen Ethyl Alcohol Respiratory Panel [place] Adenovirus (PCR) B.pert (TEM-PCR) B.parapertussis DNA PCR C. pneumoniae DNA (PCR) Coronavirus (PCR) Coronavirus OC43 (PCR) Coronavirus HKU1 (PCR) Coronavirus 229E (PCR) Coronavirus NL63 (PCR) Hepatitis C Ab (EIA) Hep C Viral Load HIV 1&2 Antigen & Ab Human Metapneumovir PCR Influenza A (RT-PCR) Influenza B (RT-PCR) M. pneumoniae (PCR) Parainfluenza 1 (PCR) Parainfluenza 2 (PCR) Parainfluenza 3 (PCR) Parainfluenza 4 (PCR) RSV (RT-PCR) Entero/Rhino (PCR) SARS Virus RNA (RT-PCR) 06/16/20 06/17/20 06/17/20 21:05 03:52 03:52 WBC RBC Hgb Hct MCV MCH MCHC RDW RDW Coeff of [place] Plt Count MPV Immature Gran % (Auto) Neut % (Auto) Lymph % (Auto) [place] % (Auto) Eos % (Auto) Baso % (Auto) Neut # (Auto) Lymph # (Auto) [place] # (Auto) Eos # (Auto) Baso # (Auto) Abs Immat Gran (auto) Absolute Lymphs (auto) Absolute Monos (auto) Absolute Eos (auto) Absolute Basos (auto) Absolute Nucleated RBC Nucleated RBC % (auto) Absolute Neutrophils Smear Tech's Comments Absolute Retic Percent Retic Immature Retic Fraction Retic Hgb Equivalent PT INR APTT PTT (Heparin Protocol) 39.1 L 59.5 D D-Dimer Hold Blue Top Sodium 136 Potassium 3.8 Chloride 103 Carbon Dioxide Bicarbonate 25 Anion Gap 12 BUN 10 Creatinine 0.58 Estimated Creat Clear 157.6 Estim Creat Clear Calc Estimated GFR Est GFR (Non-Af Amer) > 60 Random Glucose 100 Fasting Glucose Lactic Acid Calcium Magnesium Iron TIBC % Saturation Unsat Iron Binding Ferritin Total Bilirubin Direct Bilirubin AST ALT Alkaline Phosphatase Creatine Kinase Troponin I High Sens C-Reactive Protein B-Natriuretic Peptide Total Protein Albumin Lipase Vitamin B12 Folate Procalcitonin Urine Color Urine Appearance Urine pH Ur Specific [place] Urine Protein Urine Glucose (UA) Urine Ketones Urine Blood Urine Nitrite Urine WBC (Auto) Urine RBC Urine WBC Ur Epithelial Cells Urine Bacteria Urine Casts Synovial Source Synovial WBC Synovial RBC Synovial Neutrophils Synovial Monocytes Stool Occult Blood Vancomycin Trough Urine Opiates Screen Ur Barbiturates Screen Phencyclidine Screen Ur Amphetamines Screen U Benzodiazepines Scrn Urine Cocaine Screen U Cannabinoids Screen Ethyl Alcohol Respiratory Panel [place] Adenovirus (PCR) B.pert (TEM-PCR) B.parapertussis DNA PCR C. pneumoniae DNA (PCR) Coronavirus (PCR) Coronavirus OC43 (PCR) Coronavirus HKU1 (PCR) Coronavirus 229E (PCR) Coronavirus NL63 (PCR) Hepatitis C Ab (EIA) Hep C Viral Load HIV 1&2 Antigen & Ab Human Metapneumovir PCR Influenza A (RT-PCR) Influenza B (RT-PCR) M. pneumoniae (PCR) Parainfluenza 1 (PCR) Parainfluenza 2 (PCR) Parainfluenza 3 (PCR) Parainfluenza 4 (PCR) RSV (RT-PCR) Entero/Rhino (PCR) SARS Virus RNA (RT-PCR) 06/17/20 06/18/20 06/19/20 10:37 07:46 05:52 WBC RBC Hgb 12.0 L Hct 37.3 L MCV MCH MCHC RDW RDW Coeff of [place] Plt Count MPV Immature Gran % (Auto) Neut % (Auto) Lymph % (Auto) [place] % (Auto) Eos % (Auto) Baso % (Auto) Neut # (Auto) Lymph # (Auto) [place] # (Auto) Eos # (Auto) Baso # (Auto) Abs Immat Gran (auto) Absolute Lymphs (auto) Absolute Monos (auto) Absolute Eos (auto) Absolute Basos (auto) Absolute Nucleated RBC Nucleated RBC % (auto) Absolute Neutrophils Smear Tech's Comments Absolute Retic Percent Retic Immature Retic Fraction Retic Hgb Equivalent PT INR APTT PTT (Heparin Protocol) 60.5 D-Dimer Hold Blue Top Sodium 133 L Potassium 4.5 Chloride 101 Carbon Dioxide Bicarbonate 26 Anion Gap 11 L BUN 11 Creatinine 0.57 Estimated Creat Clear 151.2 Estim Creat Clear Calc Estimated GFR Est GFR (Non-Af Amer) > 60 Random Glucose 90 Fasting Glucose Lactic Acid Calcium Magnesium Iron TIBC % Saturation Unsat Iron Binding Ferritin Total Bilirubin Direct Bilirubin AST ALT Alkaline Phosphatase Creatine Kinase Troponin I High Sens C-Reactive Protein B-Natriuretic Peptide Total Protein Albumin Lipase Vitamin B12 Folate Procalcitonin Urine Color Urine Appearance Urine pH Ur Specific [place] Urine Protein Urine Glucose (UA) Urine Ketones Urine Blood Urine Nitrite Urine WBC (Auto) Urine RBC Urine WBC Ur Epithelial Cells Urine Bacteria Urine Casts Synovial Source Synovial WBC Synovial RBC Synovial Neutrophils Synovial Monocytes Stool Occult Blood Vancomycin Trough Urine Opiates Screen Ur Barbiturates Screen Phencyclidine Screen Ur Amphetamines Screen U Benzodiazepines Scrn Urine Cocaine Screen U Cannabinoids Screen Ethyl Alcohol Respiratory Panel [place] Adenovirus (PCR) B.pert (TEM-PCR) B.parapertussis DNA PCR C. pneumoniae DNA (PCR) Coronavirus (PCR) Coronavirus OC43 (PCR) Coronavirus HKU1 (PCR) Coronavirus 229E (PCR) Coronavirus NL63 (PCR) Hepatitis C Ab (EIA) Hep C Viral Load HIV 1&2 Antigen & Ab Human Metapneumovir PCR Influenza A (RT-PCR) Influenza B (RT-PCR) M. pneumoniae (PCR) Parainfluenza 1 (PCR) Parainfluenza 2 (PCR) Parainfluenza 3 (PCR) Parainfluenza 4 (PCR) RSV (RT-PCR) Entero/Rhino (PCR) SARS Virus RNA (RT-PCR) 06/19/20 06/21/20 06/21/20 05:52 08:15 08:15 WBC 11.1 H 24.7 H RBC 4.29 L 4.20 L Hgb 11.6 L 11.6 L Hct 37.0 L 36.2 L MCV 86.2 86.2 MCH 27.0 27.6 MCHC 31.4 32.0 RDW RDW Coeff of [place] 14.2 13.8 Plt Count 567 H D 609 H MPV 8.3 L 8.6 L Immature Gran % (Auto) 1.1 H Neut % (Auto) 88.0 H Lymph % (Auto) 6.5 L [place] % (Auto) 3.9 Eos % (Auto) 0.3 Baso % (Auto) 0.2 Neut # (Auto) Lymph # (Auto) [place] # (Auto) Eos # (Auto) Baso # (Auto) Abs Immat Gran (auto) 0.26 H Absolute Lymphs (auto) 1.6 Absolute Monos (auto) 1.0 Absolute Eos (auto) 0.1 Absolute Basos (auto) 0.1 Absolute Nucleated RBC 0.000 0.000 Nucleated RBC % (auto) 0.0 0.0 Absolute Neutrophils 21.7 H Smear Tech's Comments VERIFIED Absolute Retic Percent Retic Immature Retic Fraction Retic Hgb Equivalent PT INR APTT PTT (Heparin Protocol) D-Dimer Hold Blue Top Sodium 132 L Potassium 4.4 Chloride 99 Carbon Dioxide Bicarbonate 24 Anion Gap 13 BUN 15 Creatinine 0.64 Estimated Creat Clear 138.7 Estim Creat Clear Calc Estimated GFR Est GFR (Non-Af Amer) > 60 Random Glucose 119 H Fasting Glucose Lactic Acid Calcium 8.6 D Magnesium Iron TIBC % Saturation Unsat Iron Binding Ferritin Total Bilirubin Direct Bilirubin AST ALT Alkaline Phosphatase Creatine Kinase Troponin I High Sens C-Reactive Protein B-Natriuretic Peptide Total Protein Albumin Lipase Vitamin B12 Folate Procalcitonin Urine Color Urine Appearance Urine pH Ur Specific [place] Urine Protein Urine Glucose (UA) Urine Ketones Urine Blood Urine Nitrite Urine WBC (Auto) Urine RBC Urine WBC Ur Epithelial Cells Urine Bacteria Urine Casts Synovial Source Synovial WBC Synovial RBC Synovial Neutrophils Synovial Monocytes Stool Occult Blood Vancomycin Trough Urine Opiates Screen Ur Barbiturates Screen Phencyclidine Screen Ur Amphetamines Screen U Benzodiazepines Scrn Urine Cocaine Screen U Cannabinoids Screen Ethyl Alcohol Respiratory Panel [place] Adenovirus (PCR) B.pert (TEM-PCR) B.parapertussis DNA PCR C. pneumoniae DNA (PCR) Coronavirus (PCR) Coronavirus OC43 (PCR) Coronavirus HKU1 (PCR) Coronavirus 229E (PCR) Coronavirus NL63 (PCR) Hepatitis C Ab (EIA) Hep C Viral Load HIV 1&2 Antigen & Ab Human Metapneumovir PCR Influenza A (RT-PCR) Influenza B (RT-PCR) M. pneumoniae (PCR) Parainfluenza 1 (PCR) Parainfluenza 2 (PCR) Parainfluenza 3 (PCR) Parainfluenza 4 (PCR) RSV (RT-PCR) Entero/Rhino (PCR) SARS Virus RNA (RT-PCR) 06/22/20 06/22/20 06/23/20 05:43 06:00 09:35 WBC 11.7 H Not Rcvd 11.5 H RBC 3.88 L Not Rcvd 3.82 L Hgb 10.7 L Not Rcvd 10.6 L Hct 33.4 L Not Rcvd 32.8 L MCV 86.1 Not Rcvd 85.9 MCH 27.6 Not Rcvd 27.7 MCHC 32.0 Not Rcvd 32.3 RDW 13.5 13.2 RDW Coeff of [place] Not Rcvd Plt Count 531 H Not Rcvd 582 H MPV 8.8 L Not Rcvd 8.0 L Immature Gran % (Auto) 0.6 H Not Rcvd 0.5 H Neut % (Auto) 77.2 H Not Rcvd 81.1 H Lymph % (Auto) 14.4 L Not Rcvd 10.3 L [place] % (Auto) 7.2 Not Rcvd 7.5 Eos % (Auto) 0.3 Not Rcvd 0.3 Baso % (Auto) 0.3 Not Rcvd 0.3 Neut # (Auto) 9.1 H 9.4 H Lymph # (Auto) 1.7 1.2 [place] # (Auto) 0.9 0.9 Eos # (Auto) 0.0 0.0 Baso # (Auto) 0.0 0.0 Abs Immat Gran (auto) 0.07 H Not Rcvd 0.06 H Absolute Lymphs (auto) Not Rcvd Absolute Monos (auto) Not Rcvd Absolute Eos (auto) Not Rcvd Absolute Basos (auto) Not Rcvd Absolute Nucleated RBC 0.000 Not Rcvd 0.000 Nucleated RBC % (auto) 0.0 Not Rcvd 0.0 Absolute Neutrophils Smear Tech's Comments Absolute Retic Percent Retic Immature Retic Fraction Retic Hgb Equivalent PT INR APTT PTT (Heparin Protocol) D-Dimer Hold Blue Top Sodium Potassium Chloride Carbon Dioxide Bicarbonate Anion Gap BUN Creatinine Estimated Creat Clear Estim Creat Clear Calc Estimated GFR Est GFR (Non-Af Amer) Random Glucose Fasting Glucose Lactic Acid Calcium Magnesium Iron TIBC % Saturation Unsat Iron Binding Ferritin Total Bilirubin Direct Bilirubin AST ALT Alkaline Phosphatase Creatine Kinase Troponin I High Sens C-Reactive Protein B-Natriuretic Peptide Total Protein Albumin Lipase Vitamin B12 Folate Procalcitonin Urine Color Urine Appearance Urine pH Ur Specific [place] Urine Protein Urine Glucose (UA) Urine Ketones Urine Blood Urine Nitrite Urine WBC (Auto) Urine RBC Urine WBC Ur Epithelial Cells Urine Bacteria Urine Casts Synovial Source Synovial WBC Synovial RBC Synovial Neutrophils Synovial Monocytes Stool Occult Blood Vancomycin Trough Urine Opiates Screen Ur Barbiturates Screen Phencyclidine Screen Ur Amphetamines Screen U Benzodiazepines Scrn Urine Cocaine Screen U Cannabinoids Screen Ethyl Alcohol Respiratory Panel [place] Adenovirus (PCR) B.pert (TEM-PCR) B.parapertussis DNA PCR C. pneumoniae DNA (PCR) Coronavirus (PCR) Coronavirus OC43 (PCR) Coronavirus HKU1 (PCR) Coronavirus 229E (PCR) Coronavirus NL63 (PCR) Hepatitis C Ab (EIA) Hep C Viral Load HIV 1&2 Antigen & Ab Human Metapneumovir PCR Influenza A (RT-PCR) Influenza B (RT-PCR) M. pneumoniae (PCR) Parainfluenza 1 (PCR) Parainfluenza 2 (PCR) Parainfluenza 3 (PCR) Parainfluenza 4 (PCR) RSV (RT-PCR) Entero/Rhino (PCR) SARS Virus RNA (RT-PCR) 06/23/20 06/24/20 06/25/20 09:35 09:13 06:17 WBC 9.2 RBC 3.51 L Hgb 9.7 L Hct 29.8 L MCV 84.9 MCH 27.6 MCHC 32.6 RDW 13.2 RDW Coeff of [place] Plt Count 485 H MPV 8.1 L Immature Gran % (Auto) 0.4 Neut % (Auto) 66.0 Lymph % (Auto) 22.2 [place] % (Auto) 10.5 Eos % (Auto) 0.7 Baso % (Auto) 0.2 Neut # (Auto) 6.1 Lymph # (Auto) 2.0 [place] # (Auto) 1.0 Eos # (Auto) 0.1 Baso # (Auto) 0.0 Abs Immat Gran (auto) 0.04 H Absolute Lymphs (auto) Absolute Monos (auto) Absolute Eos (auto) Absolute Basos (auto) Absolute Nucleated RBC 0.000 Nucleated RBC % (auto) 0.0 Absolute Neutrophils Smear Tech's Comments Absolute Retic Percent Retic Immature Retic Fraction Retic Hgb Equivalent PT INR APTT PTT (Heparin Protocol) D-Dimer Hold Blue Top Sodium 133 L 132 L Potassium 4.4 4.4 Chloride 98 98 Carbon Dioxide 29 27 Bicarbonate Anion Gap 10 L 11 L BUN 18 H 11 Creatinine 0.61 0.62 Estimated Creat Clear Estim Creat Clear Calc 142.0 139.7 Estimated GFR > 60 > 60 Est GFR (Non-Af Amer) Random Glucose 110 129 H Fasting Glucose Lactic Acid Calcium 8.6 8.4 Magnesium Iron TIBC % Saturation Unsat Iron Binding Ferritin Total Bilirubin 0.2 Direct Bilirubin AST 24 ALT 21 Alkaline Phosphatase 97 Creatine Kinase Troponin I High Sens C-Reactive Protein B-Natriuretic Peptide Total Protein 8.2 H Albumin 2.8 L Lipase Vitamin B12 Folate Procalcitonin Urine Color Urine Appearance Urine pH Ur Specific [place] Urine Protein Urine Glucose (UA) Urine Ketones Urine Blood Urine Nitrite Urine WBC (Auto) Urine RBC Urine WBC Ur Epithelial Cells Urine Bacteria Urine Casts Synovial Source Synovial WBC Synovial RBC Synovial Neutrophils Synovial Monocytes Stool Occult Blood Vancomycin Trough Urine Opiates Screen Ur Barbiturates Screen Phencyclidine Screen Ur Amphetamines Screen U Benzodiazepines Scrn Urine Cocaine Screen U Cannabinoids Screen Ethyl Alcohol Respiratory Panel [place] Adenovirus (PCR) B.pert (TEM-PCR) B.parapertussis DNA PCR C. pneumoniae DNA (PCR) Coronavirus (PCR) Coronavirus OC43 (PCR) Coronavirus HKU1 (PCR) Coronavirus 229E (PCR) Coronavirus NL63 (PCR) Hepatitis C Ab (EIA) Hep C Viral Load HIV 1&2 Antigen & Ab Human Metapneumovir PCR Influenza A (RT-PCR) Influenza B (RT-PCR) M. pneumoniae (PCR) Parainfluenza 1 (PCR) Parainfluenza 2 (PCR) Parainfluenza 3 (PCR) Parainfluenza 4 (PCR) RSV (RT-PCR) Entero/Rhino (PCR) SARS Virus RNA (RT-PCR) 06/25/20 06/26/20 06/26/20 06:17 08:57 08:57 WBC RBC Hgb Hct MCV MCH MCHC RDW RDW Coeff of [place] Plt Count MPV Immature Gran % (Auto) Neut % (Auto) Lymph % (Auto) [place] % (Auto) Eos % (Auto) Baso % (Auto) Neut # (Auto) Lymph # (Auto) [place] # (Auto) Eos # (Auto) Baso # (Auto) Abs Immat Gran (auto) Absolute Lymphs (auto) Absolute Monos (auto) Absolute Eos (auto) Absolute Basos (auto) Absolute Nucleated RBC Nucleated RBC % (auto) Absolute Neutrophils Smear Tech's Comments Absolute Retic 0.044 Percent Retic 1.4 Immature Retic Fraction 8.7 Retic Hgb Equivalent 25.9 L PT INR APTT PTT (Heparin Protocol) D-Dimer Hold Blue Top Sodium 132 L Potassium 3.9 Chloride 98 Carbon Dioxide 27 Bicarbonate Anion Gap 11 L BUN 12 Creatinine 0.62 Estimated Creat Clear Estim Creat Clear Calc 139.7 Estimated GFR > 60 Est GFR (Non-Af Amer) Random Glucose 119 H Fasting Glucose Lactic Acid Calcium 8.5 Magnesium Iron TIBC % Saturation Unsat Iron Binding Ferritin Total Bilirubin Direct Bilirubin AST ALT Alkaline Phosphatase Creatine Kinase Troponin I High Sens C-Reactive Protein B-Natriuretic Peptide Total Protein Albumin Lipase Vitamin B12 315 Folate 7.8 Procalcitonin Urine Color Urine Appearance Urine pH Ur Specific [place] Urine Protein Urine Glucose (UA) Urine Ketones Urine Blood Urine Nitrite Urine WBC (Auto) Urine RBC Urine WBC Ur Epithelial Cells Urine Bacteria Urine Casts Synovial Source Synovial WBC Synovial RBC Synovial Neutrophils Synovial Monocytes Stool Occult Blood Vancomycin Trough Urine Opiates Screen Ur Barbiturates Screen Phencyclidine Screen Ur Amphetamines Screen U Benzodiazepines Scrn Urine Cocaine Screen U Cannabinoids Screen Ethyl Alcohol Respiratory Panel [place] Adenovirus (PCR) B.pert (TEM-PCR) B.parapertussis DNA PCR C. pneumoniae DNA (PCR) Coronavirus (PCR) Coronavirus OC43 (PCR) Coronavirus HKU1 (PCR) Coronavirus 229E (PCR) Coronavirus NL63 (PCR) Hepatitis C Ab (EIA) Hep C Viral Load HIV 1&2 Antigen & Ab Human Metapneumovir PCR Influenza A (RT-PCR) Influenza B (RT-PCR) M. pneumoniae (PCR) Parainfluenza 1 (PCR) Parainfluenza 2 (PCR) Parainfluenza 3 (PCR) Parainfluenza 4 (PCR) RSV (RT-PCR) Entero/Rhino (PCR) SARS Virus RNA (RT-PCR) 06/26/20 06/26/20 06/26/20 08:57 09:45 09:45 WBC 8.9 RBC 3.25 L Hgb 8.8 L Hct 27.9 L MCV 85.8 MCH 27.1 MCHC 31.5 RDW 13.1 RDW Coeff of [place] Plt Count 405 H MPV 8.1 L Immature Gran % (Auto) 0.5 H Neut % (Auto) 73.9 H Lymph % (Auto) 14.6 L [place] % (Auto) 9.8 Eos % (Auto) 0.7 Baso % (Auto) 0.5 Neut # (Auto) 6.6 Lymph # (Auto) 1.3 [place] # (Auto) 0.9 Eos # (Auto) 0.1 Baso # (Auto) 0.0 Abs Immat Gran (auto) 0.04 H Absolute Lymphs (auto) Absolute Monos (auto) Absolute Eos (auto) Absolute Basos (auto) Absolute Nucleated RBC 0.000 Nucleated RBC % (auto) 0.0 Absolute Neutrophils Smear Tech's Comments Absolute Retic Percent Retic Immature Retic Fraction Retic Hgb Equivalent PT INR APTT PTT (Heparin Protocol) D-Dimer Hold Blue Top Sodium 132 L Potassium 4.3 Chloride 98 Carbon Dioxide 27 Bicarbonate Anion Gap 11 L BUN 13 Creatinine 0.63 Estimated Creat Clear Estim Creat Clear Calc 137.5 Estimated GFR > 60 Est GFR (Non-Af Amer) Random Glucose Fasting Glucose 99 Lactic Acid Calcium 8.2 L Magnesium Iron 12 L TIBC 214 L % Saturation 6 L Unsat Iron Binding 202 Ferritin Total Bilirubin Direct Bilirubin AST ALT Alkaline Phosphatase Creatine Kinase Troponin I High Sens C-Reactive Protein B-Natriuretic Peptide Total Protein Albumin Lipase Vitamin B12 Folate Procalcitonin Urine Color Urine Appearance Urine pH Ur Specific [place] Urine Protein Urine Glucose (UA) Urine Ketones Urine Blood Urine Nitrite Urine WBC (Auto) Urine RBC Urine WBC Ur Epithelial Cells Urine Bacteria Urine Casts Synovial Source Synovial WBC Synovial RBC Synovial Neutrophils Synovial Monocytes Stool Occult Blood Vancomycin Trough Urine Opiates Screen Ur Barbiturates Screen Phencyclidine Screen Ur Amphetamines Screen U Benzodiazepines Scrn Urine Cocaine Screen U Cannabinoids Screen Ethyl Alcohol Respiratory Panel [place] Adenovirus (PCR) B.pert (TEM-PCR) B.parapertussis DNA PCR C. pneumoniae DNA (PCR) Coronavirus (PCR) Coronavirus OC43 (PCR) Coronavirus HKU1 (PCR) Coronavirus 229E (PCR) Coronavirus NL63 (PCR) Hepatitis C Ab (EIA) Hep C Viral Load HIV 1&2 Antigen & Ab Human Metapneumovir PCR Influenza A (RT-PCR) Influenza B (RT-PCR) M. pneumoniae (PCR) Parainfluenza 1 (PCR) Parainfluenza 2 (PCR) Parainfluenza 3 (PCR) Parainfluenza 4 (PCR) RSV (RT-PCR) Entero/Rhino (PCR) SARS Virus RNA (RT-PCR) 06/26/20 06/27/20 06/27/20 12:10 05:39 05:39 WBC 7.6 RBC 3.17 L Hgb 9.5 L 8.8 L Hct 27.0 L MCV 85.2 MCH 27.8 MCHC 32.6 RDW 13.2 RDW Coeff of [place] Plt Count 434 H MPV 8.2 L Immature Gran % (Auto) 0.4 Neut % (Auto) 65.9 Lymph % (Auto) 21.9 [place] % (Auto) 10.1 Eos % (Auto) 1.2 Baso % (Auto) 0.5 Neut # (Auto) 5.0 Lymph # (Auto) 1.7 [place] # (Auto) 0.8 Eos # (Auto) 0.1 Baso # (Auto) 0.0 Abs Immat Gran (auto) 0.03 Absolute Lymphs (auto) Absolute Monos (auto) Absolute Eos (auto) Absolute Basos (auto) Absolute Nucleated RBC 0.000 Nucleated RBC % (auto) 0.0 Absolute Neutrophils Smear Tech's Comments Absolute Retic Percent Retic Immature Retic Fraction Retic Hgb Equivalent PT INR APTT PTT (Heparin Protocol) D-Dimer Hold Blue Top Sodium 134 L Potassium 4.1 Chloride 99 Carbon Dioxide 29 Bicarbonate Anion Gap 10 L BUN 12 Creatinine 0.56 Estimated Creat Clear Estim Creat Clear Calc 154.7 Estimated GFR > 60 Est GFR (Non-Af Amer) Random Glucose Fasting Glucose 93 Lactic Acid Calcium 8.3 L Magnesium Iron TIBC % Saturation Unsat Iron Binding Ferritin Total Bilirubin Direct Bilirubin AST ALT Alkaline Phosphatase Creatine Kinase Troponin I High Sens C-Reactive Protein B-Natriuretic Peptide Total Protein Albumin Lipase Vitamin B12 Folate Procalcitonin Urine Color Urine Appearance Urine pH Ur Specific [place] Urine Protein Urine Glucose (UA) Urine Ketones Urine Blood Urine Nitrite Urine WBC (Auto) Urine RBC Urine WBC Ur Epithelial Cells Urine Bacteria Urine Casts Synovial Source Synovial WBC Synovial RBC Synovial Neutrophils Synovial Monocytes Stool Occult Blood Vancomycin Trough Urine Opiates Screen Ur Barbiturates Screen Phencyclidine Screen Ur Amphetamines Screen U Benzodiazepines Scrn Urine Cocaine Screen U Cannabinoids Screen Ethyl Alcohol Respiratory Panel [place] Adenovirus (PCR) B.pert (TEM-PCR) B.parapertussis DNA PCR C. pneumoniae DNA (PCR) Coronavirus (PCR) Coronavirus OC43 (PCR) Coronavirus HKU1 (PCR) Coronavirus 229E (PCR) Coronavirus NL63 (PCR) Hepatitis C Ab (EIA) Hep C Viral Load HIV 1&2 Antigen & Ab Human Metapneumovir PCR Influenza A (RT-PCR) Influenza B (RT-PCR) M. pneumoniae (PCR) Parainfluenza 1 (PCR) Parainfluenza 2 (PCR) Parainfluenza 3 (PCR) Parainfluenza 4 (PCR) RSV (RT-PCR) Entero/Rhino (PCR) SARS Virus RNA (RT-PCR) Airway Mallampati Class: I TM Dist: >3cm Neck ROM: Full Loose/Missing/Broken Teeth: No Heart: rrr Lungs: no Assessment and Plan Assessment Anesthesia Assessment: Anesthesia Plan Discussed and Chart Reviewed Final Anesthetic Review NPO: Yes ASA Class: III Final Preanesthetic Review: No Changes in Pt Med Stat, Meds/Allgs Chart Reviewed, Consent Obtained/Reviewed and Anes Risks/Benef Reviewed Patient Risk: Low Procedure Risk: Low Anesthetic Plan Anesthetic Plan: GA Disposition: Standard PACU
--- NOTE | 2020-06-27 11:34 | MHC.SHP ---
Pre-Procedural Eval Section A The patient is an INPATIENT: Yes Changes since office visit: No Cold of Flu in the past 2 weeks, No New Medical Problems, No Changes in Medication and No Patient answered all questions The History & Physical has been completed within 30 days and I have reviewed it.: Yes Section B Chief Complaint: Severe Sepsis Secondary To Suspected Endocarditis Allergies: Allergies Allergy/AdvReac Type Severity Reaction Status Date / Time haloperidol [From HALDOL] AdvReac Intermediate LOCK JAW Verified 06/26/20 17:37 olanzapine [From ZYPREXA] AdvReac Unknown PT REPORTS Verified 06/26/20 00:43 FEELS LIKE I AM ON AN ACID TRIP Plan Patient has been examined and remains a candidate for the planned procedure
[2020-06-27] MEDS: Lactated Ringers 1,000 ML 50 ML IVCONT (11:47)
--- NOTE | 2020-06-27 13:09 | PM.OP ---
Brief Operative Note Date of procedure: 06/27/20 Pre-op diagnosis: left knee hematoma Post-op diagnosis: same Procedure: arthroscopic lavage left knee Implants: none Anesthesia: GETA and local Surgeon: Ricardo Cortez Estimated blood loss (mL): 0 Tourniquet time (min): 41 IV fluids (mL): 600 Urine output (mL): 0 Pathology: none sent Condition: stable Disposition: PACU
[2020-06-27] MEDS: HYDROmorphone HCl 0.5 MG/0.5 ML SYRINGE 1 MG IVPUSH ×2 (13:35→14:01)
--- NOTE | 2020-06-27 14:28 | P.PNIM_ITS ---
Subjective Subjective Interval History: Seen and examined Knee pain but otherwise okay Physical Exam Vital Signs and I&O and Narrative: Vital Signs and I&O: Vital Signs Temp 97 F 06/27/20 13:18 Pulse 97 06/27/20 13:28 Resp 18 06/27/20 14:01 BP 128/80 06/27/20 13:28 Pulse Ox 100 06/27/20 13:23 Intake & Output 06/26/20 06/27/20 06/27/20 18:59 06:59 18:59 Intake Total 890 / 1230 340 / 1230 Output Total 1200 / 1200 0 / 0 Balance 890 / 30 -860 / 30 0 / 0 Urine Output (Aver age ml/kg/hr) 1.68 0.00 Intake: Intake, Oral [place]ack[place] unt 840 / 1080 240 / 1080 Intake, IV Amoun t 50 / 150 100 / 150 ceFAZolin Sodi um/Dextrose,Iso 2 50 / 150 100 / 150 gm In 50 ml @ 100 mls/hr IV Q8H [facility] Rx#:[id number] Output: Output, Urine Am ount 1200 / 1200 0 / 0 Other: NPO Yes Yes Breakfast % Eate n 100% Lunch % Eaten 100% Dinner % Eaten 75% Urine Bathroom Urinal Urine Color Yellow Yellow Body Mass Index 19.9 Const: General: cooperative, healthy appearing and no acute distress Eyes: Pupils: Equal, round and reactive pupils present Neck: Neck: Yes supple Chest: Chest palpation & inspection: normal inspection of the chest Resp: Effort & Inspection: normal respiratory effort and able to speak in complete sentences Auscultation: clear to auscultation bilaterally Cardio: Jugular venous distension: no JVD Rhythm: regular rhythm Heart sounds: S1 normal heart sound present and S2 normal heart sound present GI: Inspection: Yes normal to inspection Palpation (GI): Soft to palpation Auscultation: normal bowel sounds Skin: General skin exam: no rashes or lesions noted Neuro: Cranial nerves: Yes Equal, round and reactive pupils present Motor exam (neuro): Other motor observations present ( no motor deficit) Extrem: Other: LLE -- Knee with swelling and tenderness Objective Data Current Medications Generic Name Dose Route Start Last Admin Trade Name Freq PRN Reason Stop Dose Admin Acetaminophen 650 mg 06/22/20 00:00 06/25/20 20:28 Acetaminophen 325 Mg Tablet PO 650 mg Q8H PRN Administration Pain, Moderate (Pain Scale 4-6 Amphetamine/Dextroamphetamine 20 mg 06/22/20 08:00 06/27/20 09:13 Amphetamine Mixed Salts 20 Mg Tablet PO Not Given BID@0800,1400 ERNA Artificial Tears 1 drop 06/25/20 16:31 06/25/20 17:59 Artificial Tears 15 Ml Drops EYE-BOTH 1 drop Q4H PRN Administration Dry Eyes Bupropion HCl 150 mg 06/22/20 09:00 06/27/20 09:13 Bupropion Hcl Xl 150 Mg Tab.Er.24h PO Not Given DAILY ERNA Clonidine HCl 0.1 mg 06/22/20 21:00 06/26/20 20:43 Clonidine Hcl 0.1 Mg Tablet PO 0.1 mg BEDTIME ERNA Administration Docusate Sodium 100 mg 06/25/20 09:00 06/27/20 09:13 Docusate Sodium 100 Mg Capsule PO Not Given BID ERNA Ferrous Sulfate 324 mg 06/27/20 08:00 06/27/20 09:13 Ferrous Sulfate 324 Mg Tablet.Dr PO Not Given BIDWM ERNA Gabapentin 600 mg 06/22/20 09:00 06/27/20 09:13 Gabapentin 600 Mg Tablet PO Not Given TID ERNA Hydromorphone HCl 2 mg 06/25/20 16:31 06/27/20 10:09 Hydromorphone Hcl 1 Mg/Ml Syringe IVPUSH 2 mg Q4H PRN Administration Pain, Severe (Pain Scale 7-10) Hydromorphone HCl 1 mg 06/27/20 13:04 06/27/20 14:01 Hydromorphone Hcl 0.5 Mg/0.5 Ml Syringe IVPUSH 1 mg Q10M PRN Administration Pain, Severe (Pain Scale 7-10) Cefazolin Sodium/Dextrose 2 gm in 50 mls @ 100 mls/hr 06/22/20 04:00 06/27/20 11:42 Ancef IV 100 mls/hr Q8H ERNA Administration Lactated Ringer's 1,000 mls @ 50 mls/hr 06/27/20 11:45 06/27/20 11:47 Lr IVCONT 50 mls/hr .Q20H ERNA Administration Lidocaine 1 patch 06/22/20 09:00 06/27/20 09:13 Lidocaine 4 % Patch Adh..Patch TRANSDERMA Not Given DAILY [facility] Protocol Lorazepam 0.5 mg 06/24/20 11:40 06/25/20 17:59 Lorazepam 2 Mg/Ml Vial IVPUSH 0.5 mg Q6H PRN Administration Anxiety Lorazepam 1 mg 06/25/20 16:30 06/26/20 20:43 Lorazepam 0.5 Mg Tablet PO 1 mg Q6H PRN Administration anxiety/restlessness Magnesium Hydroxide 30 ml 06/22/20 00:00 06/25/20 17:59 Milk Of Magnesia 30 Ml Oral.Susp PO 30 ml DAILY PRN Administration Constipation Nicotine Polacrilex 2 mg 06/22/20 00:00 06/27/20 01:32 Nicotine Polacrilex 2 Mg Gum BUCCAL 2 mg Q2H PRN Administration Nicotine Cravings Omeprazole 20 mg 06/22/20 06:30 06/27/20 05:17 Omeprazole 20 Mg Capsule.Dr PO Not Given BID@0630,1630 [facility] Oxycodone HCl 10 mg 06/24/20 11:35 06/26/20 20:42 Oxycodone Hcl Immed Release 5 Mg Tablet PO 10 mg Q4H PRN Administration Pain, Moderate (Pain Scale 4-6 Polyethylene Glycol 17 gm 06/22/20 09:00 06/27/20 09:13 Polyethylene Glycol 3350 17 Gm Powd.Pack PO Not Given DAILY [facility] Quetiapine Fumarate 200 mg 06/22/20 21:00 06/26/20 20:42 Quetiapine Fumarate 200 Mg Tablet PO 200 mg BEDTIME ERNA Administration Sodium Chloride 2 ml 06/22/20 00:00 06/27/20 09:13 0.9 % Sodium Chloride Flush 3 Ml Syringe IVFLUSH 2 ml QSHIFT ERNA Administration Labs CBC & Chem 7: 06/27/20 05:39 06/27/20 05:39 Labs: Laboratory Results - last 24 hr 06/26/20 06/26/20 06/26/20 08:57 08:57 08:57 MCV MCH MCHC RDW Plt Count MPV Immature Gran % (Auto) Neut % (Auto) Lymph % (Auto) [place] % (Auto) Eos % (Auto) Baso % (Auto) Neut # (Auto) Lymph # (Auto) [place] # (Auto) Eos # (Auto) Baso # (Auto) Abs Immat Gran (auto) Absolute Nucleated RBC Nucleated RBC % (auto) Absolute Retic 0.044 Percent Retic 1.4 Immature Retic Fraction 8.7 Retic Hgb Equivalent 25.9 L Anion Gap Estim Creat Clear Calc Estimated GFR Fasting Glucose Calcium Iron 12 L TIBC 214 L % Saturation 6 L Unsat Iron Binding 202 Vitamin B12 315 Folate 7.8 06/27/20 06/27/20 05:39 05:39 MCV 85.2 MCH 27.8 MCHC 32.6 RDW 13.2 Plt Count 434 H MPV 8.2 L Immature Gran % (Auto) 0.4 Neut % (Auto) 65.9 Lymph % (Auto) 21.9 [place] % (Auto) 10.1 Eos % (Auto) 1.2 Baso % (Auto) 0.5 Neut # (Auto) 5.0 Lymph # (Auto) 1.7 [place] # (Auto) 0.8 Eos # (Auto) 0.1 Baso # (Auto) 0.0 Abs Immat Gran (auto) 0.03 Absolute Nucleated RBC 0.000 Nucleated RBC % (auto) 0.0 Absolute Retic Percent Retic Immature Retic Fraction Retic Hgb Equivalent Anion Gap 10 L Estim Creat Clear Calc 154.7 Estimated GFR > 60 Fasting Glucose 93 Calcium 8.3 L Iron TIBC % Saturation Unsat Iron Binding Vitamin B12 Folate Progress Note: A&P (1) Opioid use disorder: Status: Acute (2) Streptococcal bacteremia: Status: Acute (3) Septic arthritis of knee: Status: Acute (4) Septic pulmonary embolism: Status: Acute (5) Sepsis: Status: Acute (6) Effusion, left knee: Status: Acute Assessment and Plan: This is a 34-year-old male with a past medical history of IV substance abuse who presented to the hospital On 06/11/2020 and was admitted for severe sepsis seco ndary to bacteremia from intravenous drug use. His hospital course has been further complicated by left knee effusion with multiple arthrocentesis/washouts. He has undergone an MRI of the left knee on 06/23/2020 which shows possible hemarthrosis. 1. severe sepsis secondary to group a strep bacteremia sepsis resolved repeat Blood cultures drawn on 06/13/2020 have been negative, plan is for ant ibiotics for 6 weeks ( end date 07/25/2020). continue IV Kefzol PICC closer to discharge Echo done on 06/13/2020 -- no mention of vegetations 2. left knee effusion Question infectious versus inflammatory s/p washout today -- 06/27/2020 3. left upper extremity DVT ultrasound completed on 06/15/2020. d/w ortho -- resume lovenox in about 24 hours post-op 4. Acute Anemia DELROY+chronic inflammation repeat h/h stable 5. Hep C + outpatient f/u and treatment 6. Chronic opiate use was previously on suboxone, which has been stopped in the hospital (pt was refusing it secondary to his uncontrolled pain from L knee effusion) hold suboxone for now continue current narcotic regiment restart suboxone either upon d/c vs once pain control improved Full Code DVT pptx, lovenox Quality VTE Deep Vein Thrombosis/Pulmonary Embolism Present on Admission: No
--- NOTE | 2020-06-27 15:01 | PC.NURSE ---
ORDERS RECEIVED FOR PATIENT TO BE TRANSFERRED OUT OF IMC TO MED SURG. REPORT GIVEN TO MEDSURG RN, NIDIA. BELONGINGS BROUGHT TO ROOM [id number] MEDR.
[2020-06-27] MEDS: oxyCODONE HCl Immed Release 5 MG TABLET 10 MG PO ×2 (16:58→21:59)
[2020-06-27] MEDS: Omeprazole 20 MG CAPSULE.DR PO (16:58)
[2020-06-27] MEDS: Gabapentin 600 MG TABLET PO ×2 (16:58→22:13)
[2020-06-27] MEDS: Ferrous Sulfate 324 MG TABLET.DR PO (16:59)
[2020-06-27] MEDS: LORazepam 0.5 MG TABLET 1 MG PO ×2 (17:05→23:06)
[2020-06-27] MEDS: QUEtiapine Fumarate 200 MG TABLET PO (21:58)
[2020-06-27] MEDS: cloNIDine HCL 0.1 MG TABLET PO (21:58)
[2020-06-27] MEDS: Docusate Sodium 100 MG CAPSULE PO (21:58)
[2020-06-28 03:55] VITALS: BP 125/66; PULSE 100; RESP 16; TEMP 37.3; O2SAT 96
[2020-06-28] MEDS: Omeprazole 20 MG CAPSULE.DR PO ×2 (05:40→16:07)
[2020-06-28] MEDS: ceFAZolin Sodium/Dextrose,Iso 2 GM/50 ML PIGGYBACK IV ×3 (05:40→19:16)
[2020-06-28 07:53] VITALS: BP 123/75; PULSE 94; RESP 18; TEMP 37.2; O2SAT 96
[2020-06-28] MEDS: Ferrous Sulfate 324 MG TABLET.DR PO ×2 (08:00→16:08)
[2020-06-28] MEDS: polyethylene glycoL 3350 17 GM POWD.PACK PO (08:00)
[2020-06-28] MEDS: oxyCODONE HCl Immed Release 5 MG TABLET 10 MG PO ×2 (08:00→13:00)
[2020-06-28] MEDS: Amphetamine Mixed Salts 20 MG TABLET PO ×2 (08:00→13:58)
[2020-06-28] MEDS: buPROPion HCl XL 150 MG TAB.ER.24H PO (08:00)
[2020-06-28] MEDS: Gabapentin 600 MG TABLET PO ×3 (08:01→20:42)
[2020-06-28] MEDS: LORazepam 0.5 MG TABLET 1 MG PO ×3 (08:01→23:31)
[2020-06-28] MEDS: Docusate Sodium 100 MG CAPSULE PO ×2 (08:01→20:42)
[2020-06-28] MEDS: 0.9 % Sodium Chloride Flush 3 ML SYRINGE 2 ML IVFLUSH ×3 (08:01→21:28)
[2020-06-28 08:35] LABS: MANUAL DIFF FLAG NO
[2020-06-28 08:51] LABS: Basophils Percent Auto 0.4 % (0-2); Eosinophils Absolute Auto 0.2 X10*3/uL (0.0-0.4); Eosinophils Percent Auto 2.3 % (0-4); Hematocrit 30.2 % (42-52); Hemoglobin 9.6 g/dl (14.0-18.0); Imm Gran Abs Auto 0.03 X10*3/uL (0.00-0.03); Imm Gran Pct Auto 0.4 % (0.0-0.4); Lymphocytes Absolute Auto 1.6 X10*3/uL (1.2-4.9); Lymphocytes Percent Auto 22.2 % (20-40); Mean Corpuscular HGB Conc 31.8 g/dl (31.0-36.0); Mean Corpuscular Volume 85.1 fL (80-98); Mean Platelet Volume 8.1 fL (9.4-12.4); Monocytes Absolute Auto 0.7 X10*3/uL (0.1-1.2); Monocytes Percent Auto 10.2 % (2-11); Neutrophils Absolute Auto 4.5 X10*3/uL (2.0-8.3); Neutrophils Percent Auto 64.5 % (45-73); Platelet Count 458 X10*3/uL (160-400); Red Blood Count 3.55 X10*6/uL (4.60-5.80); Red Cell Distribution Width 12.8 % (11.0-16.0)
--- NOTE | 2020-06-28 09:14 | MHC.CM.PN ---
dc plan is to [facility] for lt iv abx. ref . has been made. cm to cont. to follow.
[2020-06-28] MEDS: HYDROmorphone HCl 1 MG/ML SYRINGE 2 MG IVPUSH ×3 (09:31→23:31)
[2020-06-28] MEDS: Nicotine Polacrilex 2 MG GUM BUCCAL ×5 (09:36→23:31)
[2020-06-28 11:14] VITALS: BP 144/70; PULSE 118; RESP 18; TEMP 37.1; O2SAT 100
--- NOTE | 2020-06-28 13:34 | PM.IMPN ---
Subjective Subjective Date of Service: 06/28/20 Interval History: Seen and examined Knee pain slightly improved no fevers or chills Review of Systems General - no fevers or chills Cardiovascular - no chest pain Respiratory - no shortness of breath or cough Abdominal- no abdominal pain, nausea, vomiting, diarrhea Physical Exam Vital Signs and I&O and Narrative: Vital Signs and I&O: Vital Signs Temp 98.8 F 06/28/20 11:14 Pulse 118 H 06/28/20 11:14 Resp 18 06/28/20 11:14 BP 144/70 H 06/28/20 11:14 Pulse Ox 100 06/28/20 11:14 Intake & Output 06/27/20 06/28/20 06/28/20 18:59 06:59 18:59 Intake Total 50 / 750 700 / 750 530 / 530 Output Total 0 / 1800 1800 / 1800 450 / 450 Balance 50 / -1050 -1100 / -1050 80 / 80 Urine Output (Aver age ml/kg/hr) 0.00 2.52 0.63 Intake: Intake, Oral [place] unt 600 / 600 480 / 480 Intake, IV Amoun t 50 / 150 100 / 150 50 / 50 ceFAZolin Sodi um/Dextrose,Iso 2 50 / 150 100 / 150 50 / 50 gm In 50 ml @ 100 mls/hr IV Q8H [facility] Rx#:[id number] Lactated Ringe rs 1,000 ml @ 50 0 / 0 mls/hr IVCONT .Q20H [facility] Rx#: [id number] Output: Output, Urine Am ount 0 / 1800 1800 / 1800 450 / 450 Other: NPO Yes Breakfast % Eate n 100% Evening Snack % Eaten yes Number of Unmeas ured Voids 1 Urine Urinal Urine Color Yellow Body Mass Index 19.9 General - no acute distress, appears comfortable Cardiovascular - regular rate and rhythm, S1-S2 Lungs - normal respiratory effort, clear to auscultation bilaterally, no wheezing Abdomen - soft, nontender, no rebound regarding Extremities - L knee with compression dressing Neuro - awake and alert, no focal deficits Objective Data Current Medications Generic Name Dose Route Start Last Admin Trade Name Freq PRN Reason Stop Dose Admin Acetaminophen 650 mg 06/22/20 00:00 06/25/20 20:28 Acetaminophen 325 Mg Tablet PO 650 mg Q8H PRN Administration Pain, Moderate (Pain Scale 4-6 Amphetamine/Dextroamphetamine 20 mg 06/22/20 08:00 06/28/20 08:00 Amphetamine Mixed Salts 20 Mg Tablet PO 20 mg BID@0800,1400 ERNA Administration Artificial Tears 1 drop 06/25/20 16:31 06/25/20 17:59 Artificial Tears 15 Ml Drops EYE-BOTH 1 drop Q4H PRN Administration Dry Eyes Bupropion HCl 150 mg 06/22/20 09:00 06/28/20 08:00 Bupropion Hcl Xl 150 Mg Tab.Er.24h PO 150 mg DAILY ERNA Administration Clonidine HCl 0.1 mg 06/22/20 21:00 06/27/20 21:58 Clonidine Hcl 0.1 Mg Tablet PO 0.1 mg BEDTIME ERNA Administration Docusate Sodium 100 mg 06/25/20 09:00 06/28/20 08:01 Docusate Sodium 100 Mg Capsule PO 100 mg BID ERNA Administration Ferrous Sulfate 324 mg 06/27/20 08:00 06/28/20 08:00 Ferrous Sulfate 324 Mg Tablet. PO 324 mg BIDWM ERNA Administration Gabapentin 600 mg 06/22/20 09:00 06/28/20 08:01 Gabapentin 600 Mg Tablet PO 600 mg TID ERNA Administration Hydromorphone HCl 2 mg 06/25/20 16:31 06/28/20 09:31 Hydromorphone Hcl 1 Mg/Ml Syringe IVPUSH 2 mg Q4H PRN Administration Pain, Severe (Pain Scale 7-10) Cefazolin Sodium/Dextrose 2 gm in 50 mls @ 100 mls/hr 06/22/20 04:00 06/28/20 12:08 Ancef IV Infused Q8H ERNA Infusion Lidocaine 1 patch 06/22/20 09:00 06/28/20 08:01 Lidocaine 4 % Patch Adh..Patch TRANSDERMA Not Given DAILY [facility] Protocol Lorazepam 1 mg 06/25/20 16:30 06/28/20 08:01 Lorazepam 0.5 Mg Tablet PO 1 mg Q6H PRN Administration anxiety/restlessness Magnesium Hydroxide 30 ml 06/22/20 00:00 06/25/20 17:59 Milk Of Magnesia 30 Ml Oral.Susp PO 30 ml DAILY PRN Administration Constipation Nicotine Polacrilex 2 mg 06/22/20 00:00 06/28/20 13:00 Nicotine Polacrilex 2 Mg Gum BUCCAL 2 mg Q2H PRN Administration Nicotine Cravings Omeprazole 20 mg 06/22/20 06:30 06/28/20 05:40 Omeprazole 20 Mg Capsule. PO 20 mg BID@0630,6390 ERNA Administration Oxycodone HCl 10 mg 06/24/20 11:35 06/28/20 13:00 Oxycodone Hcl Immed Release 5 Mg Tablet PO 10 mg Q4H PRN Administration Pain, Moderate (Pain Scale 4-6 Polyethylene Glycol 17 gm 06/22/20 09:00 06/28/20 08:00 Polyethylene Glycol 3350 17 Gm Powd.Pack PO 17 gm DAILY ERNA Administration Quetiapine Fumarate 200 mg 06/22/20 21:00 06/27/20 21:58 Quetiapine Fumarate 200 Mg Tablet PO 200 mg BEDTIME ERNA Administration Sodium Chloride 2 ml 06/22/20 00:00 06/28/20 08:01 0.9 % Sodium Chloride Flush 3 Ml Syringe IVFLUSH 2 ml QSHIFT ERNA Administration Labs CBC & Chem 7: 06/28/20 08:30 06/27/20 05:39 Labs: Laboratory Results - last 24 hr 06/28/20 08:30 MCV 85.1 MCH 27.0 MCHC 31.8 RDW 12.8 Plt Count 458 H MPV 8.1 L Immature Gran % (Auto) 0.4 Neut % (Auto) 64.5 Lymph % (Auto) 22.2 [place] % (Auto) 10.2 Eos % (Auto) 2.3 Baso % (Auto) 0.4 Neut # (Auto) 4.5 Lymph # (Auto) 1.6 [place] # (Auto) 0.7 Eos # (Auto) 0.2 Baso # (Auto) 0.0 Abs Immat Gran (auto) 0.03 Absolute Nucleated RBC 0.000 Nucleated RBC % (auto) 0.0 Progress Note: A&P (1) Opioid use disorder: Status: Acute (2) Streptococcal bacteremia: Status: Acute (3) Septic arthritis of knee: Status: Acute (4) Septic pulmonary embolism: Status: Acute (5) Sepsis: Status: Acute (6) Effusion, left knee: Status: Acute Assessment and Plan: This is a 34-year-old male with a past medical history of IV substance abuse who presented to the hospital On 06/11/2020 and was admitted for severe sepsis secondary to bacteremia from intravenous drug use. His hospital course has been further complicated by left knee effusion with multiple arthrocentesis/washouts. He has undergone an MRI of the left knee on 06/23/2020 which shows possible hemarthrosis. 1. severe sepsis secondary to group a strep bacteremia sepsis resolved repeat Blood cultures drawn on 06/13/2020 have been negative, plan is for antibiotics for 6 weeks ( end date 07/25/2020). continue IV Kefzol PICC closer to discharge Echo done on 06/13/2020 -- no mention of vegetations 2. left knee effusion s/p washout (hematoma) ortho input appreciated 3. left upper extremity DVT restart lovenox 4. Acute blood loss anemia DELROY+chronic inflammation+hematoma h/h stable iron supplementation 5. Hep C + outpatient f/u and treatment 6. Chronic opiate use was previously on suboxone, which has been stopped in the hospital (pt was refusing it secondary to his uncontrolled pain from L knee effusion) hold suboxone for now continue current narcotic regimen -- taper IV dilaudid, use PO oxycodone Full Code DVT pptx, lovenox Quality VTE Deep Vein Thrombosis/Pulmonary Embolism Present on Admission: No
[2020-06-28 15:50] VITALS: BP 114/59; PULSE 110; RESP 16; TEMP 36.6; O2SAT 98
--- NOTE | 2020-06-28 16:06 | OP_ITS ---
SURGEON: Ricardo Cortez MD INDICATIONS: This is a 34-year-old gentleman, who had an arthroscopic lavage for large knee effusion, who developed swelling again after the surgery. Aspiration was negative and it was felt to be a large hematoma, but given his septic history, an arthroscopic lavage was indicated and he was taken to the OR to undergo the said procedure. PREOPERATIVE DIAGNOSIS: Left knee hematoma. POSTOPERATIVE DIAGNOSIS: Left knee hematoma. PROCEDURE PERFORMED: Arthroscopic lavage of left knee. ESTIMATED BLOOD LOSS: None. COMPLICATIONS: ANESTHESIA: General and local. ASSISTANTS: None. SPECIMENS: FLUIDS: 600. PROCEDURE IN DETAIL: The patient was brought to the operating room, placed supine on the arthroscopic table and prepped and draped in standard sterile fashion. Time-out was called to identify proper site, proper procedure, proper surgeon. IV antibiotics per weight was administered. I again tried to aspirate, there was nothing, but scant coagulated blood. I placed the tourniquet to 300 mmHg and then used the same portals from prior to initially place my blunt trocar into the patellofemoral joint. I then through the knee, trying to remove the hematoma and get some visualization. Once I was able to visualize, I placed a shaver through the superolateral portal and removed copious amounts of clot. Cautery was used to try to maintain some hemostasis and then I did the same in the medial and lateral compartments. The cartilage was in good shape. There was no evidence of abscess or unusual appearing cartilage surfaces or fluid collections. The only notable finding was florid hematoma. Once this was all removed, the knee was much less full and I removed the instrumentation. Closed with nylon and injected 20 mL of Marcaine with epinephrine in the soft tissues and in the knee joint itself. Once this was done, I placed an Alfred wrap around the knee and the patient was awakened from anesthesia, brought to recovery room in stable condition. There were no known complications. MD RACQUEL Rivera/ANGELO / [id number]
[2020-06-28] MEDS: Enoxaparin Sodium 60 MG/0.6 ML SYRINGE SUBCUT (16:08)
--- NOTE | 2020-06-28 17:16 | PC.NURSE ---
PT IS REFUSING BED ALARM , AND CAMERA , OUTREACH COORDINATOR AWARE .
[2020-06-28 19:30] VITALS: BP 152/72; PULSE 112; RESP 18; TEMP 37.1; O2SAT 100
[2020-06-28] MEDS: cloNIDine HCL 0.1 MG TABLET PO (20:42)
[2020-06-28] MEDS: QUEtiapine Fumarate 200 MG TABLET PO (20:42)
[2020-06-28 23:17] VITALS: BP 122/63; PULSE 114; RESP 20; TEMP 37; O2SAT 98
[2020-06-29] MEDS: ceFAZolin Sodium/Dextrose,Iso 2 GM/50 ML PIGGYBACK IV ×3 (03:45→19:38)
[2020-06-29 04:00] VITALS: BP 117/57; PULSE 103; RESP 19; TEMP 36.7; O2SAT 99
[2020-06-29] MEDS: Omeprazole 20 MG CAPSULE.DR PO ×2 (05:34→15:54)
[2020-06-29] MEDS: Gabapentin 600 MG TABLET PO ×3 (07:44→22:04)
[2020-06-29] MEDS: HYDROmorphone HCl 1 MG/ML SYRINGE 2 MG IVPUSH ×4 (07:44→22:05)
[2020-06-29] MEDS: Amphetamine Mixed Salts 20 MG TABLET PO ×2 (07:44→15:12)
[2020-06-29] MEDS: polyethylene glycoL 3350 17 GM POWD.PACK PO (07:45)
[2020-06-29] MEDS: Enoxaparin Sodium 60 MG/0.6 ML SYRINGE SUBCUT ×2 (07:45→17:43)
[2020-06-29] MEDS: Ferrous Sulfate 324 MG TABLET.DR PO ×2 (07:45→15:54)
[2020-06-29] MEDS: Docusate Sodium 100 MG CAPSULE PO ×2 (07:45→22:04)
[2020-06-29] MEDS: buPROPion HCl XL 150 MG TAB.ER.24H PO (07:45)
[2020-06-29] MEDS: 0.9 % Sodium Chloride Flush 3 ML SYRINGE 2 ML IVFLUSH ×3 (07:52→22:06)
[2020-06-29 08:00] VITALS: BP 122/62; PULSE 96; RESP 18; TEMP 36.8; O2SAT 97
[2020-06-29 08:49] LABS: MANUAL DIFF FLAG NO
[2020-06-29 08:55] LABS: Basophils Absolute Auto 0.1 X10*3/uL (0.0-0.2); Basophils Percent Auto 0.7 % (0-2); Eosinophils Absolute Auto 0.3 X10*3/uL (0.0-0.4); Eosinophils Percent Auto 3.7 % (0-4); Hematocrit 32.8 % (42-52); Hemoglobin 10.1 g/dl (14.0-18.0); Imm Gran Abs Auto 0.02 X10*3/uL (0.00-0.03); Imm Gran Pct Auto 0.3 % (0.0-0.4); Lymphocytes Absolute Auto 1.9 X10*3/uL (1.2-4.9); Lymphocytes Percent Auto 28.3 % (20-40); Mean Corpuscular HGB Conc 30.8 g/dl (31.0-36.0); Mean Corpuscular Hemoglobin 26.8 pg (27.0-33.0); Mean Platelet Volume 8.2 fL (9.4-12.4); Monocytes Absolute Auto 0.7 X10*3/uL (0.1-1.2); Monocytes Percent Auto 10.4 % (2-11); Neutrophils Absolute Auto 3.8 X10*3/uL (2.0-8.3); Neutrophils Percent Auto 56.6 % (45-73); Platelet Count 502 X10*3/uL (160-400); Red Blood Count 3.77 X10*6/uL (4.60-5.80); White Blood Count 6.7 X10*3/uL (4.8-10.8)
[2020-06-29] MEDS: Nicotine Polacrilex 2 MG GUM BUCCAL ×5 (09:17→22:05)
[2020-06-29] MEDS: LORazepam 0.5 MG TABLET 1 MG PO ×2 (09:18→19:39)
--- NOTE | 2020-06-29 09:22 | P.PNIM_ITS ---
Subjective Subjective Date of Service: 06/29/20 Interval History: seen and examined reports pain overall improved, but unhappy with current Regiment asking if he could be instead on his suboxone Review of Systems General - no fevers or chills Cardiovascular - no chest pain Respiratory - no shortness of breath or cough Abdominal- no abdominal pain, nausea, vomiting, diarrhea knee pain -- uncontrolled Physical Exam Vital Signs and I&O and Narrative: Vital Signs and I&O: Vital Signs Temp 98.2 F 06/29/20 08:00 Pulse 96 06/29/20 08:00 Resp 18 06/29/20 08:00 BP 122/62 06/29/20 08:00 Pulse Ox 97 06/29/20 08:00 Intake & Output 06/28/20 06/29/20 06/29/20 18:59 06:59 18:59 Intake Total 1690 / 1790 100 / 1790 Output Total 850 / 1750 900 / 1750 Balance 840 / 40 -800 / 40 Urine Output (Aver age ml/kg/hr) 1.19 1.26 Intake: Intake, Oral [place] unt 1640 / 1640 Intake, IV Amoun t 50 / 150 100 / 150 ceFAZolin Sodi um/Dextrose,Iso 2 50 / 150 100 / 150 gm In 50 ml @ 100 mls/hr IV Q8H [facility] Rx#:[id number] Output: Output, Urine Am ount 850 / 1750 900 / 1750 Other: Breakfast % Eate n 100% Lunch % Eaten 100% Dinner % Eaten 100% Number of Incont inent Voids 650 Urine Urinal Body Mass Index 19.9 General - no acute distress, appears comfortable Cardiovascular - regular rate and rhythm, S1-S2 Lungs - normal respiratory effort, clear to auscultation bilaterally, no wheezing Abdomen - soft, nontender, no rebound regarding Extremities - L knee with compression dressing Neuro - awake and alert, no focal deficits Eyes: Pupils: Equal, round and reactive pupils present Neuro: Cranial nerves: Yes Equal, round and reactive pupils present Motor exam (neuro): Other motor observations present ( no motor deficit) Objective Data Current Medications Generic Name Dose Route Start Last Admin Trade Name Freq PRN Reason Stop Dose Admin Acetaminophen 650 mg 06/22/20 00:00 06/25/20 20:28 Acetaminophen 325 Mg Tablet PO 650 mg Q8H PRN Administration Pain, Moderate (Pain Scale 4-6 Amphetamine/Dextroamphetamine 20 mg 06/22/20 08:00 06/29/20 07:44 Amphetamine Mixed Salts 20 Mg Tablet PO 20 mg BID@0800,1400 ERNA Administration Artificial Tears 1 drop 06/25/20 16:31 06/25/20 17:59 Artificial Tears 15 Ml Drops EYE-BOTH 1 drop Q4H PRN Administration Dry Eyes Bupropion HCl 150 mg 06/22/20 09:00 06/29/20 07:45 Bupropion Hcl Xl 150 Mg Tab.Er.24h PO 150 mg DAILY [facility] Administration Clonidine HCl 0.1 mg 06/22/20 21:00 06/28/20 20:42 Clonidine Hcl 0.1 Mg Tablet PO 0.1 mg BEDTIME ERNA Administration Docusate Sodium 100 mg 06/25/20 09:00 06/29/20 07:45 Docusate Sodium 100 Mg Capsule PO 100 mg BID ERNA Administration Enoxaparin Sodium 60 mg 06/28/20 18:00 06/29/20 07:45 Enoxaparin Sodium 60 Mg/0.6 Ml Syringe 1 mg/kg (60 mg) 60 mg SUBCUT Administration Q12H [facility] Ferrous Sulfate 324 mg 06/27/20 08:00 06/29/20 07:45 Ferrous Sulfate 324 Mg Tablet.Dr PO 324 mg BIDWM [facility] Administration Gabapentin 600 mg 06/22/20 09:00 06/29/20 07:44 Gabapentin 600 Mg Tablet PO 600 mg TID [facility] Administration Hydromorphone HCl 4 mg 06/28/20 16:00 06/29/20 09:18 Hydromorphone Hcl 4 Mg Tablet PO 4 mg Q6H [facility] Administration Hydromorphone HCl 2 mg 06/29/20 09:15 Hydromorphone Hcl 1 Mg/Ml Syringe IVPUSH Q4H PRN Pain, Severe (Pain Scale 7-10) Cefazolin Sodium/Dextrose 2 gm in 50 mls @ 100 mls/hr 06/22/20 04:00 06/29/20 04:28 Ancef IV Infused Q8H [facility] Infusion Lidocaine 1 patch 06/22/20 09:00 06/29/20 07:52 Lidocaine 4 % Patch Adh..Patch TRANSDERMA Not Given DAILY [facility] Protocol Lorazepam 1 mg 06/25/20 16:30 06/29/20 09:18 Lorazepam 0.5 Mg Tablet PO 1 mg Q6H PRN Administration anxiety/restlessness Magnesium Hydroxide 30 ml 06/22/20 00:00 06/25/20 17:59 Milk Of Magnesia 30 Ml Oral.Susp PO 30 ml DAILY PRN Administration Constipation Nicotine Polacrilex 2 mg 06/22/20 00:00 06/29/20 09:17 Nicotine Polacrilex 2 Mg Gum BUCCAL 2 mg Q2H PRN Administration Nicotine Cravings Omeprazole 20 mg 06/22/20 06:30 06/29/20 05:34 Omeprazole 20 Mg Capsule. PO 20 mg BID@0630,5500 ERNA Administration Polyethylene Glycol 17 gm 06/22/20 09:00 06/29/20 07:45 Polyethylene Glycol 3350 17 Gm Powd.Pack PO 17 gm DAILY ERNA Administration Quetiapine Fumarate 200 mg 06/22/20 21:00 06/28/20 20:42 Quetiapine Fumarate 200 Mg Tablet PO 200 mg BEDTIME ERNA Administration Sodium Chloride 2 ml 06/22/20 00:00 06/29/20 07:52 0.9 % Sodium Chloride Flush 3 Ml Syringe IVFLUSH 2 ml QSHIFT ERNA Administration Labs CBC & Chem 7: 06/29/20 08:40 06/27/20 05:39 Labs: Laboratory Results - last 24 hr 06/29/20 08:40 MCV 87.0 MCH 26.8 L MCHC 30.8 L RDW 13.0 Plt Count 502 H MPV 8.2 L Immature Gran % (Auto) 0.3 Neut % (Auto) 56.6 Lymph % (Auto) 28.3 [place] % (Auto) 10.4 Eos % (Auto) 3.7 Baso % (Auto) 0.7 Lymph # (Auto) 1.9 [place] # (Auto) 0.7 Eos # (Auto) 0.3 Baso # (Auto) 0.1 Abs Immat Gran (auto) 0.02 Absolute Neuts (auto) 3.8 Absolute Nucleated RBC 0.000 Nucleated RBC % (auto) 0.0 Progress Note: A&P (1) Opioid use disorder: Status: Acute (2) Streptococcal bacteremia: Status: Acute (3) Septic arthritis of knee: Status: Acute (4) Septic pulmonary embolism: Status: Acute (5) Sepsis: Status: Acute (6) Effusion, left knee: Status: Acute Assessment and Plan: This is a 34-year-old male with a past medical history of IV substance abuse who presented to the hospital On 06/11/2020 and was admitted for severe sepsis seco ndary to bacteremia from intravenous drug use. His hospital course has been further complicated by left knee effusion with multiple arthrocentesis/washouts. He has undergone an MRI of the left knee on 06/23/2020 which shows possible hemarthrosis. 1. severe sepsis secondary to group a strep bacteremia sepsis resolved repeat Blood cultures drawn on 06/13/2020 have been negative, plan is for ant ibiotics for 6 weeks ( end date 07/25/2020). continue IV Kefzol PICC closer to discharge Echo done on 06/13/2020 -- no mention of vegetations 2. left knee effusion s/p washout (hematoma) / drainage multiple times, last wash out 06/28/2020 ortho input appreciated pain remains uncontrolled -- will ask addiction medicine for input 3. left upper extremity DVT lovenox hematology input appreciated -- 3 months of OAC (diagnosed 06/15/2020) 4. Acute blood loss anemia DELROY+chronic inflammation+hematoma h/h stable iron supplementation 5. Hep C + outpatient f/u and treatment 6. Chronic opiate use was previously on suboxone, which has been stopped in the hospital (pt was refusing it secondary to his uncontrolled pain from L knee effusion) hold suboxone for now -- addiction medicine to see today continue current narcotic regimen -- taper IV dilaudid, use PO dilaudid Full Code DVT pptx, lovenox Quality VTE Deep Vein Thrombosis/Pulmonary Embolism Present on Admission: No
--- NOTE | 2020-06-29 13:03 | P.PICC_ITS ---
PICC Line Insertion NPICC Diagnosis: SEPSIS Indication: ASSISTED IV ANTIBIOTICS Pertinent Labs: REVIEWED Technique: Following informed consent including risks, benefits and alternatives and using sterile technique including cap and mask, sterile gown, glove and drape, the RIGHT arm was prepped and draped in the usual sterile fashion of full barrier technique with CHG. Following completion of [place] Protocol the skin and soft tissues were anesthetized with 1% Lidocaine plain. Using ultrasound guidance, BASILIC vein access was obtained BY THIS RN WITH SINGLE ATTEMPT, AFTER PRIOR RN ATTEMPTED TWICE BUT UNABLE TO ADVANCE GUIDE WIRE. Over an 0.018 wire through peel-away sheath, a SINGLE LUMEN 4 POLISH PICC line was positioned. Catheter length is 37 CM internal length, 0 CM (AT HUB) external length, for a total trimmed length of 37 CM. The procedure was performed in SPECIAL PROCEDURES ROOM 7. Tip verification was performed by Rajiv Hickey with Sherlock 3CG. Tip located in SVC. Ultrasound was used to document vein patency and for needle entry. A formal ultrasound picture and cardiac rhythm strip was recorded. Vascular Boiler/Chiller Operator has released the line for use and it is currently dressed with a StatLock, Tegaderm, and CHG disc. Verification has been performed for blood return and line patency. Arm Circumference: 26 CM Equipment: [employer] POWER PICC SOLO Catheter Type: SINGLE LUMEN 4 POLISH PICC Lot #: [id number]
[2020-06-29 13:07] VITALS: BP 129/79; PULSE 105; RESP 18; TEMP 36.9
[2020-06-29] MEDS: 0.9 % Sodium Chloride Flush 10 ML SYRINGE 5 ML IVFLUSH ×2 (15:14→22:10)
[2020-06-29 15:49] VITALS: BP 153/73; PULSE 110; RESP 22; TEMP 36.7; O2SAT 98
--- NOTE | 2020-06-29 16:37 | MHC.CM.PN ---
DC PLANNING PT COMPLETED A HCP TODAY NAMING HIS COUSIN, JANNA CARLSON ([phone]) HIS AGENT. PTS HCP AND CLINICAL UPDATES WERE SENT TO [facility]. [facility] ALSO NOTIFIED OF PLAN TO HAVE PICC PLACED TODAY AND LIKELY DC TOMORROW.
--- NOTE | 2020-06-29 17:51 | P.EN_ITS ---
Event Note Event Note: Addiction consult follow up: Pt reporting that he would like to transition back to suboxone from current pain meds, especially since he is [facility]. Supportive listening offered as patient quite anxious. QUesitons answered and collaborated on a plan: * No additional doses of Dilaudid after midnight. 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
--- NOTE | 2020-06-29 17:51 | PM.EVENT ---
Event Note Event Note: Addiction consult follow up: Pt reporting that he would like to transition back to suboxone from current pain meds, especially since he is likely [facility] the [facility]. Supportive listening offered as patient quite anxious. QUesitons answered and collaborated on a plan: No additional doses of Dilaudid after midnight. 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
[2020-06-29 19:32] VITALS: BP 144/69; PULSE 115; RESP 18; TEMP 36.8; O2SAT 99
[2020-06-29] MEDS: cloNIDine HCL 0.1 MG TABLET PO (22:03)
[2020-06-29] MEDS: QUEtiapine Fumarate 200 MG TABLET PO (22:04)
[2020-06-30] VITALS (11 sets, daily range): BP systolic 105–141; BP diastolic 57–83; PULSE 92–112; RESP 16–20; TEMP 36.1–36.7; O2SAT 96–100
[2020-06-30] MEDS: ceFAZolin Sodium/Dextrose,Iso 2 GM/50 ML PIGGYBACK IV ×3 (04:06→19:52)
[2020-06-30] MEDS: Enoxaparin Sodium 60 MG/0.6 ML SYRINGE SUBCUT ×2 (05:34→17:24)
[2020-06-30] MEDS: Omeprazole 20 MG CAPSULE.DR PO ×2 (05:34→15:43)
--- NOTE | 2020-06-30 08:17 | PM.PNORT ---
Subjective Subjective Interval history: left knee s/p irrigation and lavage improving with ROM Still has pain Physical Exam Vital Signs and I&O and Narrative: Vital Signs and I&O: Vital Signs Temp 97.9 F 06/30/20 08:00 Pulse 97 06/30/20 08:00 Resp 17 06/30/20 08:00 BP 119/69 06/30/20 08:00 Pulse Ox 98 06/30/20 08:00 Intake & Output 06/29/20 06/30/20 06/30/20 18:59 06:59 18:59 Intake Total 1250 / 1350 100 / 1350 Output Total 200 / 200 Balance 1250 / 1150 -100 / 1150 Urine Output (Aver age ml/kg/hr) 0.28 Intake: Intake, Oral [place] unt 1200 / 1200 Intake, IV Amoun t 50 / 150 100 / 150 ceFAZolin Sodi um/Dextrose,Iso 2 50 / 150 100 / 150 gm In 50 ml @ 100 mls/hr IV Q8H ERNA Rx#:[id number] Output: Output, Urine Am ount 200 / 200 Other: Breakfast % Eate n 100% Lunch % Eaten 100% Dinner % Eaten 100% Number of Unmeas ured Voids 3 Urine Urinal Urine Color Pale Yellow Body Mass Index 19.9 Extrem: Other: left knee no erythema, mild edema, ROM 0-30. He is able to initiate quad functon . calf supple non tender Progress Note: A&P Assessment and plan (1) Effusion, left knee: Status: Acute Assessment and Plan: continue PT Fall Risk Details Current Medications: Current Medications Generic Name Dose Route Start Last Admin Trade Name Juanjo PRN Reason Stop Dose Admin Acetaminophen 650 mg 06/22/20 00:00 06/25/20 20:28 Acetaminophen 325 Mg Tablet PO 650 mg Q8H PRN Administration Pain, Moderate (Pain Scale 4-6 Amphetamine/Dextroamphetamine 20 mg 06/22/20 08:00 06/29/20 15:12 Amphetamine Mixed Salts 20 Mg Tablet PO 20 mg BID@0800,1400 ERNA Administration Artificial Tears 1 drop 06/25/20 16:31 06/25/20 17:59 Artificial Tears 15 Ml Drops EYE-BOTH 1 drop Q4H PRN Administration Dry Eyes Bupropion HCl 150 mg 06/22/20 09:00 06/29/20 07:45 Bupropion Hcl Xl 150 Mg Tab.Er.24h PO 150 mg DAILY ERNA Administration Clonidine HCl 0.1 mg 06/22/20 21:00 06/29/20 22:03 Clonidine Hcl 0.1 Mg Tablet PO 0.1 mg BEDTIME ERNA Administration Docusate Sodium 100 mg 06/25/20 09:00 06/29/20 22:04 Docusate Sodium 100 Mg Capsule PO 100 mg BID ERNA Administration Enoxaparin Sodium 60 mg 06/28/20 18:00 06/30/20 05:34 Enoxaparin Sodium 60 Mg/0.6 Ml Syringe 1 mg/kg (60 mg) 60 mg SUBCUT Administration Q12H [facility] Ferrous Sulfate 324 mg 06/27/20 08:00 06/29/20 15:54 Ferrous Sulfate 324 Mg Tablet. PO 324 mg BIDWM ERNA Administration Gabapentin 600 mg 06/22/20 09:00 06/29/20 22:04 Gabapentin 600 Mg Tablet PO 600 mg TID ERNA Administration Cefazolin Sodium/Dextrose 2 gm in 50 mls @ 100 mls/hr 06/22/20 04:00 06/30/20 04:45 Ancef IV Infused Q8H [facility] Infusion Lidocaine 1 patch 06/22/20 09:00 06/29/20 07:52 Lidocaine 4 % Patch Adh..Patch TRANSDERMA Not Given DAILY [facility] Protocol Lorazepam 1 mg 06/25/20 16:30 06/29/20 19:39 Lorazepam 0.5 Mg Tablet PO 1 mg Q6H PRN Administration anxiety/restlessness Magnesium Hydroxide 30 ml 06/22/20 00:00 06/25/20 17:59 Milk Of Magnesia 30 Ml Oral.Susp PO 30 ml DAILY PRN Administration Constipation Nicotine Polacrilex 2 mg 06/22/20 00:00 06/29/20 22:05 Nicotine Polacrilex 2 Mg Gum BUCCAL 2 mg Q2H PRN Administration Nicotine Cravings Omeprazole 20 mg 06/22/20 06:30 06/30/20 05:34 Omeprazole 20 Mg Capsule. PO 20 mg BID@0630,1630 ERNA Administration Polyethylene Glycol 17 gm 06/22/20 09:00 06/29/20 07:45 Polyethylene Glycol 3350 17 Gm Powd.Pack PO 17 gm DAILY ERNA Administration Quetiapine Fumarate 200 mg 06/22/20 21:00 06/29/20 22:04 Quetiapine Fumarate 200 Mg Tablet PO 200 mg BEDTIME ERNA Administration Sodium Chloride 2 ml 06/22/20 00:00 06/29/20 22:06 0.9 % Sodium Chloride Flush 3 Ml Syringe IVFLUSH 2 ml QSHIFT ERNA Administration Sodium Chloride 5 ml 06/29/20 15:15 06/29/20 22:10 0.9 % Sodium Chloride Flush 10 Ml Syringe IVFLUSH 5 ml TID ERNA Administration Time Spent With Patient Time: Total time spent is greater than 50% in coordination of care (as documented) at patient's floor/unit and/or counseling patient: Time with patient: less than 15 minutes Progress Note: Quality VTE Deep Vein Thrombosis/Pulmonary Embolism Present on Admission: No
[2020-06-30 08:57] LABS: Hemoglobin 9.5 g/dl (14.0-18.0); Mean Corpuscular HGB Conc 31.7 g/dl (31.0-36.0); Mean Corpuscular Hemoglobin 27.1 pg (27.0-33.0); Mean Corpuscular Volume 85.5 fL (80-98); Mean Platelet Volume 8.1 fL (9.4-12.4); Platelet Count 513 X10*3/uL (160-400); Red Blood Count 3.51 X10*6/uL (4.60-5.80); Red Cell Distribution Width 12.9 % (11.0-16.0); White Blood Count 6.9 X10*3/uL (4.8-10.8)
[2020-06-30] MEDS: Ferrous Sulfate 324 MG TABLET.DR PO ×2 (09:44→17:24)
[2020-06-30] MEDS: Docusate Sodium 100 MG CAPSULE PO ×2 (09:44→20:27)
[2020-06-30] MEDS: buPROPion HCl XL 150 MG TAB.ER.24H PO (09:44)
[2020-06-30] MEDS: Amphetamine Mixed Salts 20 MG TABLET PO ×2 (09:45→14:49)
[2020-06-30] MEDS: Gabapentin 600 MG TABLET PO ×3 (09:45→20:27)
[2020-06-30] MEDS: 0.9 % Sodium Chloride Flush 3 ML SYRINGE 2 ML IVFLUSH ×2 (09:45→15:42)
[2020-06-30] MEDS: 0.9 % Sodium Chloride Flush 10 ML SYRINGE 5 ML IVFLUSH ×3 (09:46→20:27)
[2020-06-30] MEDS: polyethylene glycoL 3350 17 GM POWD.PACK PO (09:47)
[2020-06-30] MEDS: Buprenorphine/Naloxone 4/1 mg FILM 1 FILM SUBLINGUAL (11:40)
[2020-06-30] MEDS: Nicotine Polacrilex 2 MG GUM BUCCAL ×4 (12:30→20:27)
[2020-06-30] MEDS: LORazepam 0.5 MG TABLET 1 MG PO ×2 (12:30→19:02)
[2020-06-30] MEDS: Acetaminophen 325 MG TABLET 650 MG PO (12:33)
--- NOTE | 2020-06-30 13:44 | P.PNIM_ITS ---
Subjective Subjective Date of Service: 06/30/20 Interval History: seen and examined this morning. no Dilaudid since midnight, was ready for Suboxone Took a dose of Suboxone and by this afternoon felt that his pain was not controlled and as such requested to go back on his Dilaudid. Doing well otherwise Review of Systems General - no fevers or chills Cardiovascular - no chest pain Respiratory - no shortness of breath or cough Abdominal- no abdominal pain, nausea, vomiting, diarrhea knee pain+ Physical Exam Vital Signs and I&O and Narrative: Vital Signs and I&O: Vital Signs Temp 97.7 F 06/30/20 11:25 Pulse 105 H 06/30/20 11:25 Resp 19 06/30/20 11:25 BP 117/74 06/30/20 11:25 Pulse Ox 100 06/30/20 11:25 Intake & Output 06/29/20 06/30/20 06/30/20 18:59 06:59 18:59 Intake Total 1250 / 1350 100 / 1350 50 / 50 Output Total 200 / 200 Balance 1250 / 1150 -100 / 1150 50 / 50 Urine Output (Aver age ml/kg/hr) 0.28 0.28 Intake: Intake, Oral [place] unt 1200 / 1200 Intake, IV Amoun t 50 / 150 100 / 150 50 / 50 ceFAZolin Sodi um/Dextrose,Iso 2 50 / 150 100 / 150 50 / 50 gm In 50 ml @ 100 mls/hr IV Q8H [facility] Rx#:[id number] Output: Output, Urine Am ount 200 / 200 Other: Breakfast % Eate n 100% Lunch % Eaten 100% Dinner % Eaten 100% Number of Unmeas ured Voids 3 Urine Urinal Urine Color Pale Yellow Body Mass Index 19.9 General - no acute distress, appears comfortable Cardiovascular - regular rate and rhythm, S1-S2 Lungs - normal respiratory effort, clear to auscultation bilaterally, no wheezing Abdomen - soft, nontender, no rebound regarding Extremities - L knee with compression dressing Neuro - awake and alert, no focal deficits Objective Data Current Medications Generic Name Dose Route Start Last Admin Trade Name Freq PRN Reason Stop Dose Admin Acetaminophen 650 mg 06/22/20 00:00 06/30/20 12:33 Acetaminophen 325 Mg Tablet PO 650 mg Q8H PRN Administration Pain, Moderate (Pain Scale 4-6 Amphetamine/Dextroamphetamine 20 mg 06/22/20 08:00 06/30/20 09:45 Amphetamine Mixed Salts 20 Mg Tablet PO 20 mg BID@0800,1400 ERNA Administration Artificial Tears 1 drop 06/25/20 16:31 06/25/20 17:59 Artificial Tears 15 Ml Drops EYE-BOTH 1 drop Q4H PRN Administration Dry Eyes Bupropion HCl 150 mg 06/22/20 09:00 06/30/20 09:44 Bupropion Hcl Xl 150 Mg Tab.Er.24h PO 150 mg DAILY ERNA Administration Clonidine HCl 0.1 mg 06/22/20 21:00 06/29/20 22:03 Clonidine Hcl 0.1 Mg Tablet PO 0.1 mg BEDTIME ERNA Administration Docusate Sodium 100 mg 06/25/20 09:00 06/30/20 09:44 Docusate Sodium 100 Mg Capsule PO 100 mg BID ERNA Administration Enoxaparin Sodium 60 mg 06/28/20 18:00 06/30/20 05:34 Enoxaparin Sodium 60 Mg/0.6 Ml Syringe 1 mg/kg (60 mg) 60 mg SUBCUT Administration Q12H [facility] Ferrous Sulfate 324 mg 06/27/20 08:00 06/30/20 09:44 Ferrous Sulfate 324 Mg Tablet.Dr PO 324 mg BIDWM [facility] Administration Gabapentin 600 mg 06/22/20 09:00 06/30/20 09:45 Gabapentin 600 Mg Tablet PO 600 mg TID [facility] Administration Cefazolin Sodium/Dextrose 2 gm in 50 mls @ 100 mls/hr 06/22/20 04:00 06/30/20 12:45 Ancef IV Infused Q8H [facility] Infusion Lidocaine 1 patch 06/22/20 09:00 06/30/20 09:49 Lidocaine 4 % Patch Adh..Patch TRANSDERMA Not Given DAILY [facility] Protocol Lorazepam 1 mg 06/25/20 16:30 06/30/20 12:30 Lorazepam 0.5 Mg Tablet PO 1 mg Q6H PRN Administration anxiety/restlessness Magnesium Hydroxide 30 ml 06/22/20 00:00 06/25/20 17:59 Milk Of Magnesia 30 Ml Oral.Susp PO 30 ml DAILY PRN Administration Constipation Nicotine Polacrilex 2 mg 06/22/20 00:00 06/30/20 12:30 Nicotine Polacrilex 2 Mg Gum BUCCAL 2 mg Q2H PRN Administration Nicotine Cravings Omeprazole 20 mg 06/22/20 06:30 06/30/20 05:34 Omeprazole 20 Mg Capsule. PO 20 mg BID@0630,1630 ERNA Administration Polyethylene Glycol 17 gm 06/22/20 09:00 06/30/20 09:47 Polyethylene Glycol 3350 17 Gm Powd.Pack PO 17 gm DAILY E[facility] Administration Quetiapine Fumarate 200 mg 06/22/20 21:00 06/29/20 22:04 Quetiapine Fumarate 200 Mg Tablet PO 200 mg BEDTIME ERNA Administration Sodium Chloride 2 ml 06/22/20 00:00 06/30/20 09:45 0.9 % Sodium Chloride Flush 3 Ml Syringe IVFLUSH 2 ml QSHIFT ERNA Administration Sodium Chloride 5 ml 06/29/20 15:15 06/30/20 09:46 0.9 % Sodium Chloride Flush 10 Ml Syringe IVFLUSH 5 ml TID ERNA Administration Labs CBC & Chem 7: 06/30/20 08:28 06/27/20 05:39 Labs: Laboratory Results - last 24 hr 06/30/20 08:28 MCV 85.5 MCH 27.1 MCHC 31.7 RDW 12.9 Plt Count 513 H MPV 8.1 L Absolute Nucleated RBC 0.000 Nucleated RBC % (auto) 0.0 Progress Note: A&P (1) Opioid use disorder: Status: Acute (2) Streptococcal bacteremia: Status: Acute (3) Septic arthritis of knee: Status: Acute (4) Septic pulmonary embolism: Status: Acute (5) Sepsis: Status: Acute (6) Effusion, left knee: Status: Acute Assessment and Plan: This is a 34-year-old male with a past medical history of IV substance abuse who presented to the hospital On 06/11/2020 and was admitted for severe sepsis secondary to bacteremia from intravenous drug use. His hospital course has been further complicated by left knee effusion with multiple arthrocentesis/washouts. He has undergone an MRI of the left knee on 06/23/2020 which shows possible hemarthrosis. 1. severe sepsis secondary to group a strep bacteremia sepsis resolved repeat Blood cultures drawn on 06/13/2020 have been negative, plan is for antibiotics for 6 weeks ( end date 07/25/2020). continue IV Kefzol PICC closer to discharge Echo done on 06/13/2020 -- no mention of vegetations 2. left knee effusion s/p washout (hematoma) / drainage multiple times, last wash out 06/28/2020 ortho input appreciated trial of suboxone failed -- switched back to po dilaudid 3. left upper extremity DVT lovenox hematology input appreciated -- 3 months of OAC (diagnosed 06/15/2020) 4. Acute blood loss anemia DELROY+chronic inflammation+hematoma h/h stable iron supplementation 5. Hep C + outpatient f/u and treatment 6. Chronic opiate use on dilaudid for pain, will continue Full Code DVT pptx, lovenox dispo: to SNF, once pain controlled, racquel ready by tomorrow Quality VTE Deep Vein Thrombosis/Pulmonary Embolism Present on Admission: No
--- NOTE | 2020-06-30 15:06 | P.EN_ITS ---
Event Note Event Note: Addiction follow up: Pt started on suboxone this morning, recieved one 4mg dose. Declined additional dosing. Reporting worsening pain in his knee and fear that suboxone will not be enough to control the pain. This functional tester typewriters spoke to patient who was extremely anxious, but redirectable and open to discussion. Acknowledged patient's concern regarding pain control, attempted to educate regarding possibility of improved pain management once appropriate dose of suboxone was reached, but he declined and expressed desire to return to schedule pain medications as he previously had been receiving. Discussed with hospitalist. Suboxone rx to be d/c
--- NOTE | 2020-06-30 15:32 | MHC.CM.PN ---
[facility]. MESSAGE LEFT FOR [place], COVERING LIAISON AT [phone] [facility] IS REPORTEDLY ACCEPTING PATIENTS WHO ARE PRESCRIBED SUBOXONE AND METHADONE. REFERRAL PLACED FOR POSSIBLE BED OFFER PER CONVERSATION WITH HOSPITALIST, PATIENT WILL NOW NOT BE ON SUBOXONE. CASE MANAGEMENT FOLLOWING
[2020-06-30] MEDS: HYDROmorphone HCl 2 MG/ML VIAL IVPUSH (15:43)
--- NOTE | 2020-06-30 16:14 | MHC.CM.PN ---
PATIENT AWARE THAT [facility] HAS NNOT RESPONDED TO REQUESTS FOR CONFIRMATION OF BED OFFER. HE PREFERS TO GO TO [facility], FAMILY IS NEARBY HE UNDERSTANDS THAT THIS MAY NOT BE AN OPTION, AND A REFERRAL IS NOW PLACED TO [facility]. LIAISON FOR FACILITY IS REVIEWING. IF [facility] DOES OFFER, THIS IS PATIENT'S FIRST CHOICE.
[2020-06-30] MEDS: QUEtiapine Fumarate 200 MG TABLET PO (20:27)
[2020-06-30] MEDS: cloNIDine HCL 0.1 MG TABLET PO (20:27)
[2020-07-01] VITALS (9 sets, daily range): BP systolic 95–137; BP diastolic 48–75; PULSE 96–113; RESP 16–19; TEMP 35.9–36.8; O2SAT 98–99
[2020-07-01] MEDS: Nicotine Polacrilex 2 MG GUM BUCCAL ×4 (00:31→20:41)
[2020-07-01] MEDS: LORazepam 0.5 MG TABLET 1 MG PO ×3 (00:32→20:11)
[2020-07-01] MEDS: Omeprazole 20 MG CAPSULE.DR PO ×2 (04:43→17:08)
[2020-07-01] MEDS: Enoxaparin Sodium 60 MG/0.6 ML SYRINGE SUBCUT ×2 (04:43→17:08)
[2020-07-01] MEDS: ceFAZolin Sodium/Dextrose,Iso 2 GM/50 ML PIGGYBACK IV ×3 (04:44→20:08)
[2020-07-01] MEDS: Gabapentin 600 MG TABLET PO ×3 (09:03→20:11)
[2020-07-01] MEDS: Docusate Sodium 100 MG CAPSULE PO ×2 (09:03→20:11)
[2020-07-01] MEDS: buPROPion HCl XL 150 MG TAB.ER.24H PO (09:03)
[2020-07-01] MEDS: polyethylene glycoL 3350 17 GM POWD.PACK PO (09:03)
[2020-07-01] MEDS: Lidocaine 4 % Patch ADH..PATCH 1 PATCH TRANSDERMA (09:03)
[2020-07-01] MEDS: Ferrous Sulfate 324 MG TABLET.DR PO ×2 (09:03→17:08)
[2020-07-01] MEDS: Amphetamine Mixed Salts 20 MG TABLET PO ×2 (09:04→14:32)
[2020-07-01] MEDS: 0.9 % Sodium Chloride Flush 10 ML SYRINGE 5 ML IVFLUSH ×3 (09:04→20:41)
[2020-07-01 11:29] LABS: Hematocrit 29.2 % (42-52); Hemoglobin 9.1 g/dl (14.0-18.0); Mean Corpuscular HGB Conc 31.2 g/dl (31.0-36.0); Mean Corpuscular Hemoglobin 27.1 pg (27.0-33.0); Mean Corpuscular Volume 86.9 fL (80-98); Mean Platelet Volume 8.1 fL (9.4-12.4); Platelet Count 503 X10*3/uL (160-400); Red Blood Count 3.36 X10*6/uL (4.60-5.80); White Blood Count 7.8 X10*3/uL (4.8-10.8)
--- NOTE | 2020-07-01 15:20 | MHC.CM.PN ---
CM unable to reach [facility] since 06/27/20 regarding this pts admission. CM contacted building and off duty liaison December this morning and received a return message from Karine this afternoon. She reports they can take the pt today as long as he has a suboxone RX. CM referred her to the event note attached to the referral indicating the pt will not be on suboxone at DC. Pt will DC on pain meds and per CM notes, his PCP will follow up with him at the facility regarding any MAT. CM informed pt that [facility] was offering a bed. Pt requested he stay until tomorrow so that he could see the orthopedic surgeon. CM assured pt any necessary follow up would occur outpatient and that the facility would ensure he get to his appts. CM currently awaiting confirmation from [facility] that they can take the pt this evening now that they are aware he will not DC on suboxone.
--- NOTE | 2020-07-01 16:11 | MHC.CM.PN ---
CM again has left several messages for [facility] electronic funds transfer coordinator with no response. Tiki at [facility] still holding a bed where pt can DC to tomorrow if [facility] is still unavailable
--- NOTE | 2020-07-01 16:13 | MHC.CM.PN ---
CONG attempted to contact [facility] admissions liaison multiple times to coordinate a DC time. This far she has not responded. Pt likely unable to DC today as no bed is confirmed. If CM can reach [facility] liaison tomorrow, his preference would be to go there. If [facility] is still unresponsive, [facility] liaison indicated they have a bed as long as pts pain appears in control. CONG will follow up first thing Friday morning
[2020-07-01] MEDS: 0.9 % Sodium Chloride Flush 3 ML SYRINGE 2 ML IVFLUSH (17:07)
--- NOTE | 2020-07-01 17:38 | HO.PM.IMPN ---
Subjective Subjective Date of Service: 07/01/20 Interval History: seen and examined pain control okay this AM no other complaints Review of Systems General - no fevers or chills Cardiovascular - no chest pain Respiratory - no shortness of breath or cough Abdominal- no abdominal pain, nausea, vomiting, diarrhea Physical Exam Vital Signs: Vital Signs: Vital Signs Temp Pulse Resp BP Pulse Ox 07/01/20 15:19 97.8 F 111 H 18 114/67 99 07/01/20 11:17 98.2 F 102 H 133/66 99 07/01/20 07:56 96.7 F L 98 19 119/59 L 98 07/01/20 03:57 97 F 98 16 95/48 L 98 06/30/20 23:30 97.1 F 95 18 105/57 L 98 06/30/20 20:27 105 H 118/62 06/30/20 19:50 98 F 105 H 118/62 100 Body Mass Index 19.9 General - no acute distress, appears comfortable Cardiovascular - regular rate and rhythm, S1-S2 Lungs - normal respiratory effort, clear to auscultation bilaterally, no wheezing Abdomen - soft, nontender, no rebound regarding Extremities - L knee with compression dressing Neuro - awake and alert, no focal deficits Objective Data Current Medications Generic Name Dose Route Start Last Admin Trade Name Freq PRN Reason Stop Dose Admin Acetaminophen 650 mg 06/22/20 00:00 06/30/20 12:33 Acetaminophen 325 Mg Tablet PO 650 mg Q8H PRN Administration Pain, Moderate (Pain Scale 4-6 Amphetamine/Dextroamphetamine 20 mg 06/22/20 08:00 07/01/20 14:32 Amphetamine Mixed Salts 20 Mg Tablet PO 20 mg BID@0800,1400 ERNA Administration Artificial Tears 1 drop 06/25/20 16:31 06/25/20 17:59 Artificial Tears 15 Ml Drops EYE-BOTH 1 drop Q4H PRN Administration Dry Eyes Bupropion HCl 150 mg 06/22/20 09:00 07/01/20 09:03 Bupropion Hcl Xl 150 Mg Tab.Er.24h PO 150 mg DAILY ERNA Administration Clonidine HCl 0.1 mg 06/22/20 21:00 06/30/20 20:27 Clonidine Hcl 0.1 Mg Tablet PO 0.1 mg BEDTIME ERNA Administration Docusate Sodium 100 mg 06/25/20 09:00 07/01/20 09:03 Docusate Sodium 100 Mg Capsule PO 100 mg BID ERNA Administration Enoxaparin Sodium 60 mg 06/28/20 18:00 07/01/20 17:08 Enoxaparin Sodium 60 Mg/0.6 Ml Syringe 1 mg/kg (60 mg) 60 mg SUBCUT Administration Q12H [facility] Ferrous Sulfate 324 mg 06/27/20 08:00 07/01/20 17:08 Ferrous Sulfate 324 Mg Tablet. PO 324 mg BIDWM ERNA Administration Gabapentin 600 mg 06/22/20 09:00 07/01/20 14:31 Gabapentin 600 Mg Tablet PO 600 mg TID ERNA Administration Hydromorphone HCl 4 mg 06/30/20 20:00 07/01/20 17:07 Hydromorphone Hcl 4 Mg Tablet PO 4 mg Q4H [facility] Administration Cefazolin Sodium/Dextrose 2 gm in 50 mls @ 100 mls/hr 06/22/20 04:00 07/01/20 14:01 Ancef IV Infused Q8H [facility] Infusion Lidocaine 1 patch 06/22/20 09:00 07/01/20 09:03 Lidocaine 4 % Patch Adh..Patch TRANSDERMA 1 patch DAILY ERNA Administration Protocol Lorazepam 1 mg 06/25/20 16:30 07/01/20 11:53 Lorazepam 0.5 Mg Tablet PO 1 mg Q6H PRN Administration anxiety/restlessness Magnesium Hydroxide 30 ml 06/22/20 00:00 06/25/20 17:59 Milk Of Magnesia 30 Ml Oral.Susp PO 30 ml DAILY PRN Administration Constipation Nicotine Polacrilex 2 mg 06/22/20 00:00 07/01/20 17:08 Nicotine Polacrilex 2 Mg Gum BUCCAL 2 mg Q2H PRN Administration Nicotine Cravings Omeprazole 20 mg 06/22/20 06:30 07/01/20 17:08 Omeprazole 20 Mg Capsule. PO 20 mg BID@0630,1630 ERAN Administration Polyethylene Glycol 17 gm 06/22/20 09:00 07/01/20 09:03 Polyethylene Glycol 3350 17 Gm Powd.Pack PO 17 gm DAILY ERNA Administration Quetiapine Fumarate 200 mg 06/22/20 21:00 06/30/20 20:27 Quetiapine Fumarate 200 Mg Tablet PO 200 mg BEDTIME ERNA Administration Sodium Chloride 2 ml 06/22/20 00:00 07/01/20 17:07 0.9 % Sodium Chloride Flush 3 Ml Syringe IVFLUSH 2 ml QSHIFT ERNA Administration Sodium Chloride 5 ml 06/29/20 15:15 07/01/20 14:32 0.9 % Sodium Chloride Flush 10 Ml Syringe IVFLUSH 5 ml TID ERNA Administration Labs CBC & Chem 7: 07/01/20 11:17 06/27/20 05:39 Quality VTE Deep Vein Thrombosis/Pulmonary Embolism Present on Admission: No Assessment and Plan (1) Opioid use disorder: Status: Acute (2) Streptococcal bacteremia: Status: Acute (3) Septic arthritis of knee: Status: Acute (4) Septic pulmonary embolism: Status: Acute (5) Sepsis: Status: Acute (6) Effusion, left knee: Status: Acute Assessment and Plan: This is a 34-year-old male with a past medical history of IV substance abuse who presented to the hospital On 06/11/2020 and was admitted for severe sepsis secondary to bacteremia from intravenous drug use. His hospital course has been further complicated by left knee effusion with multiple arthrocentesis/washouts. He has undergone an MRI of the left knee on 06/23/2020 which shows possible hemarthrosis. 1. severe sepsis secondary to group a strep bacteremia sepsis resolved repeat Blood cultures drawn on 06/13/2020 have been negative, plan is for antibiotics for 6 weeks ( end date 07/25/2020). continue IV Kefzol PICC closer to discharge Echo done on 06/13/2020 -- no mention of vegetations 2. left knee effusion s/p washout (hematoma) / drainage multiple times, last wash out 06/28/2020 ortho input appreciated -- okay for discharge from ortho perspective 3. left upper extremity DVT lovenox hematology input appreciated -- 3 months of OAC (diagnosed 06/15/2020) 4. Acute blood loss anemia DELROY+chronic inflammation+hematoma h/h stable iron supplementation 5. Hep C + outpatient f/u and treatment 6. Chronic opiate use on dilaudid for pain, will continue Full Code DVT pptx, victor m dispo:to SNF once bed available
[2020-07-01] MEDS: cloNIDine HCL 0.1 MG TABLET PO (20:11)
[2020-07-01] MEDS: QUEtiapine Fumarate 200 MG TABLET PO (20:11)
[2020-07-02 04:00] VITALS: BP 118/56; PULSE 98; RESP 18; TEMP 36.4; O2SAT 98
[2020-07-02] MEDS: Omeprazole 20 MG CAPSULE.DR PO (05:09)
[2020-07-02] MEDS: ceFAZolin Sodium/Dextrose,Iso 2 GM/50 ML PIGGYBACK IV ×2 (05:10→11:45)
[2020-07-02] MEDS: Enoxaparin Sodium 60 MG/0.6 ML SYRINGE SUBCUT (05:10)
[2020-07-02] MEDS: Nicotine Polacrilex 2 MG GUM BUCCAL ×2 (05:17→10:39)
[2020-07-02] MEDS: LORazepam 0.5 MG TABLET 1 MG PO ×2 (05:17→11:45)
[2020-07-02 07:01] VITALS: BP 131/68; PULSE 105; RESP 18; TEMP 36.6; O2SAT 99
[2020-07-02] MEDS: Gabapentin 600 MG TABLET PO (08:21)
[2020-07-02] MEDS: Lidocaine 4 % Patch ADH..PATCH 1 PATCH TRANSDERMA (08:21)
[2020-07-02] MEDS: Amphetamine Mixed Salts 20 MG TABLET PO (08:21)
[2020-07-02] MEDS: Docusate Sodium 100 MG CAPSULE PO (08:22)
[2020-07-02] MEDS: Ferrous Sulfate 324 MG TABLET.DR PO (08:22)
[2020-07-02] MEDS: buPROPion HCl XL 150 MG TAB.ER.24H PO (08:22)
--- NOTE | 2020-07-02 08:52 | MHC.CM.PN ---
PATIENT WILL TRANSPORT TO [facility] FOR 11:00 [facility]IA [facility]. RN AND UNIT AWARE OF PLAN.
[2020-07-02 11:13] VITALS: BP 149/87; PULSE 95; RESP 18; TEMP 36.6; O2SAT 100
--- NOTE | 2020-07-02 11:47 | PM.DS ---
DS: Providers Provider Date of admission: 06/11/20 21:10 Primary care physician: Unknown Physician DS: Diagnosis Discharge Diagnosis (1) Severe sepsis: Status: Inactive (2) Streptococcal bacteremia: Status: Acute (3) Septic arthritis of knee: Status: Acute (4) Effusion, left knee: Status: Acute (5) Septic pulmonary embolism: Status: Acute (6) Opioid use disorder: Status: Acute (7) DVT (deep venous thrombosis): Status: Acute DS: Summary Hospital Course Hospital Course: From the admission HPI: 34 y/o male with strong hx of IVDA who presented from home c/o malaise per 2 days. Per history provided by the patient, for the past 2 days has been having generalized pain, chills, cough, difficulty breathing and has felt unwell . On presentation to the ED patient is found to be tachycardic, tachypneic, afebrile, saturating well on room air, lactate of 2.2, Utox positive for cocaine, opiates and cannabinoids, WBC Of 32, BUN elevated to 27, Ferritin of 551, CRP of 41.85. CTA chest/abdomen nondiagnostic for PE per radiologist report but lobar or segmental PE are not excluded, bilateral patchy opacities with associated cavitation concerning for septic emboli. Moderate dilation of stomach and small duodenum which might represent SMA vs ileus. No evidence of obstruction is evident and patient is able to tolerate PO at present per ED. Patient was given a total of 3 liter os NS, as well as Vancomycin and Zosyn for broadcoverage. Decision for admission given. Patient seen and examined at the bedside, laying down in bed in no acute distress. ROS as above otherwise negative. Physical exam positive for cachectic young male, anxious, rest of the exam unremarkable. Patient reports having poor appetite in the past days but is able to take anything PO at present. Hospital Course Patient presented with sepsis due to bacteremia from IVDU. He was initially initiated on broad spectrum IV anbitiocs which were ultimately tailored to IV Kefzol once his blood cultures finalized to group A Strep. Infectious disease consultation was sought and they recommended 6 weeks of IV Kefzol after the 1st negative cultures, end date of 07/25/2020. Patient's hospital course was further complicated by left knee swelling which required multiple drainages and to washout in the OR. Cultures from this fluid were negative and fluid analysis was inflammatory versus infectious. This left knee swelling was further complicated by hemarthrosis Which was secondary to patient being on Lovenox ( See reason for Lovenox below). Patient needs to follow-up with the orthopedic department at [facility] in about 1 week. patient also was diagnosed with with an upper extremity DVT presumed secondary to substance abuse. He was initiated on Lovenox and hematology was consulted who recommended At least 3 months of anticoagulation. ( DVT diagnosed 06/15/2020). lastly, patient's hospitalization was even further complicated by pain. Complicating matters was the fact that patient was on Suboxone for chronic opiate dependence. Initially, IV and oral narcotics in combination with Suboxone were attempted but this resulted in inadequate pain control. His Suboxone was discontinued and instead he was treated with IV Dilaudid / p.o. Dilaudid. fortunately as his clinical course is improved, his pain improved as well and he will be discharged on p.o. Dilaudid. as his pain further improves, this can be tapered and his Suboxone be initiated ( his primary care provider can be involved in this process.) patient has been educated and strongly encouraged complete cessation of his substance abuse. Time Spent with Patient Time attestation: Total time spent providing and/or coordinating discharge services: Quality: VTE Deep Vein Thrombosis/Pulmonary Embolism Present on Admission: No Physical Exam Vital Signs: Vital Signs: Vital Signs Temp Pulse Resp BP Pulse Ox 07/02/20 11:13 97.8 F 132 H 18 149/87 H 100 07/02/20 07:01 98 F 105 H 18 131/68 99 07/02/20 04:00 97.5 F 98 18 118/56 L 98 07/01/20 23:56 96.8 F 96 16 122/49 L 98 07/01/20 20:11 113 H 137/75 07/01/20 19:22 113 H 18 137/75 99 07/01/20 15:19 97.8 F 111 H 18 114/67 99 Body Mass Index 19.9 Discharge Plan Discharge Patient Disposition: er SNF Referrals: [facility] [Outside] Lise Cisneros PA-C [Physician Steno Typist] - (follow up with orthopedics in 1 week) Physician,Unknown [Primary Care Provider] - Discharge Medications: New lidocaine [Lidocaine Pain Relief] 4 % Adhesive Patch,Medicated 1 patch transdermal DAILY Qty: 1 RF: 0 polyethylene glycol 3350 17 gram Powder In Packet 17 g PO DAILY Qty: 1 RF: 0 nicotine (polacrilex) 2 mg Gum 2 mg buccal Q2H PRN (Reason: Nicotine Cravings) Qty: 1 RF: 0 lorazepam 0.5 mg Tablet 1 mg PO Q6H PRN (Reason: Anxiety/Restlessness) Qty: 30 RF: 0 docusate sodium 100 mg Capsule 100 mg PO BID Qty: 1 RF: 0 omeprazole 20 mg Capsule,Delayed Release(Dr/Ec) 20 mg PO BID@0630,1630 Qty: 1 RF: 0 hydromorphone 4 mg Tablet 4 mg PO Q4H PRN (Reason: Pain (Scale Score 7-10)) Qty: 30 RF: 0 enoxaparin 60 mg/0.6 mL Syringe 60 mg subcut Q12H Qty: 1 RF: 0 ferrous sulfate 324 mg (65 mg iron) Tablet,Delayed Release (Dr/Ec) 324 mg PO BIDWM Qty: 1 RF: 0 cefazolin in dextrose (iso-os) 2 gram/50 mL Piggyback 2 g IV Q8H Qty: 1 RF: 0 Continued clonidine HCl 0.1 mg Tablet 0.1 mg PO BEDTIME RF: 0 gabapentin 600 mg Tablet 600 mg PO TID RF: 0 quetiapine 200 mg Tablet 200 mg PO BEDTIME RF: 0 bupropion HCl 150 mg Tablet Extended Release 24 Hr 150 mg PO QAM RF: 0 amphetamine sulfate 20 mg Tablet,Disintegrating 20 mg PO BID@0800,1400 Qty: 10 RF: 0 Discontinued buprenorphine-naloxone 8-2 mg Film 1 film SUBLINGUAL DAILY RF: 0 Discharge Orders: Discharge Order (Routine); Ordered 07/02/20 Ordered By: Javed Cooper Diet: advance to your usual diet Activity on Discharge: As tolerated Activity Restrictions/Additional Instructions: WBAT left lower extremity Physical Therapy ROM, quad strength, Isometric quad exercises, SLR Follow up with Orthopedics in 1 week for suture removal Visit Report Forms: Patient Portal Discharge page Care Plan Goals: Finish antibiotics Follow up with orthopedics on 1 week Health Concerns: bacteremia knee effusion substance abuse Plan of Treatment: Go to rehab and finish antibiotic course. Work on physical therapy
--- NOTE | 2020-07-02 14:47 | PC.NURSE ---
patient states he does not want to go to rehab, states his wish to leave [facility]. md in to see patient. patient states that he understands risks of leaving [facility]. picc to be removed by nursing pot lining supervisor.
--- NOTE | 2020-07-02 14:57 | PC.NURSE ---
picc removed from right upper arm. length 37 cm. patient tolerated. sat 100% no sob. no bleeding. observed by jake pimentel ground operations supervisor.
--- NOTE | 2020-07-02 14:57 | MHC.CM.PN ---
CHANGE OF PLANS. PATIENT VERBALIZES DISCONTENT THAT HE HAS NOT HAD ANOTHER COVID SWAB. MD AGREED TO ORDER. PATIENT MADE AWARE THAT HE WILL BE ON ISOLATION FOR 2 WEEKS AT [facility] WITH NO FACE TO FACE VISITORS. PATIENT ASKED IF HE IS ABLE TO GO OUTSIDE ONCE AT FACILITY, TO WHICH THE ANSWER IS NO, DUE TO COVID REGULATIONS AND PRECAUTIONS. PATIENT STATES THAT HIS BROTHER AND FAMILY HAVE VISITED IN THE PAST, AND HE NOW EXPRESSES A DESIRE TO LEAVE AMA DESPITE MULTIPLE RN, PROVIDER, AND CASE MANAGEMENT ATTEMPTS, PATIENT IS REFUSING TO DISCHARGE TO [facility] AND SIGNED OUT AMA. RN, UNIT. [facility], AND [facility] MADE AWARE.
--- NOTE | 2020-07-02 19:21 | P.EN_ITS ---
Event Note Event Note: informed by executive secretary social welfare and nursing staff that the patient wanted to leave against medical advice. Patient seen and examined bedside. The plan was for the patient to go to [facility] facility to complete his course of antibiotics for his bacteremia. He reported that he wanted to leave AMA. Informed him that leaving AMA could lead to worsening infection, worsening of his DVT to potentially pulmonary embolism, worsening of his knee effusion and even loss of limb, worsening of his infection and ultimately . patient is competant. AAOx3 and fully understands and accepts the risks. still decides to sign out AMA
== END 2020-07-02 15:04 | disposition left against medical advice (07) | DRG 720 ==
LOC: HO.IMC 06-27 11:30 → HO.S3 06-27 14:17
PROVIDERS: Internal Medicine; Orthopaedic Surgery; Admitting Provider Internal Medicine; Emergency Provider Nurse Practitioner Family; Visit Provider Family Medicine
PROC: 3E1U48Z Irrigation of Joints using Irrigating Substance, Percutaneous Endoscopic Approach (ICD-10-PCS; CPT 29870; principal; 2020-06-27 11:30)
DX: A40.0 Sepsis due to streptococcus, group A (principal); I26.90 Septic pulmonary embolism without acute cor pulmonale; R65.20 Severe sepsis without septic shock; K55.8 Other vascular disorders of intestine; I82.622 Acute embolism and thrombosis of deep veins of left upper extremity; F20.9 Schizophrenia, unspecified; R45.851 Suicidal ideations; M25.462 Effusion, left knee; D62 Acute posthemorrhagic anemia; B19.20 Unspecified viral hepatitis C without hepatic coma; F11.23 Opioid dependence with withdrawal; Z20.828 Contact with and (suspected) exposure to other viral communicable diseases; Z59.0 Homelessness; M25.062 Hemarthrosis, left knee; T45.515A Adverse effect of anticoagulants, initial encounter; Y92.239 Unspecified place in hospital as the place of occurrence of the external cause; Z79.899 Other long term (current) drug therapy
CPT/HCPCS: 0202U; 36415; 36573; 51701; 51798; 71045; 71250; 71275; 72148; 73560; 73721; 74176; 76705; 80048; 80051; 80053; 80076; 80202; 80307; 80320; 81001; 82272; 82550; 82565; 82607; 82728; 82746; 82947; 83540; 83605; 83690; 83735; 83880; 84145; 84484; 84520; 85014; 85018; 85025; 85027; 85045; 85379; 85610; 85730; 86140; 86803; 87040; 87070; 87186; 87205; 87389; 87522; 89051; 89060; 93005; 93306; 93971; 94640; 96361; 96374; 96375; 97110; 97162; 97530; 99285; C1751; C1894; J0571; J0573; J0574; J0690; J0696; J1170; J1200; J1650; J1885; J2060; J2250; J2270; J2405; J2543; J2765; J3010; J3370; Q9967; U0003

== ENCOUNTER 2020-07-02 22:05 | Emergency (ER) | payer MEDICAID, SELFPAY ==
[2020-07-02 22:28] VITALS: BP 118/70; PULSE 115; RESP 22; TEMP 37.1; O2SAT 99; BMI 22.8
[2020-07-02 22:51] VITALS: BP 127/79; PULSE 115; RESP 19; TEMP 37.1; O2SAT 100
--- NOTE | 2020-07-02 22:53 | ED_ITS ---
HPI - General Adult General Chief complaint: General Medical Stated complaint: KNEE SWELLING Time Seen by Provider: 07/02/20 22:39 Source: patient Mode of arrival: EMS Limitations: no limitations History of Present Illness HPI narrative: 19-year-old male requesting IV antibiotics. Patient left AMA from this hospital this morning after being diagnosed with septic pulmonary embolism, bacteremia to be transferred to rehab for long-term antibiotics. Patient states got an argument with the staff and decided to leave. Patient returning now because he knows if he does not get IV antibiotics he can get worse. Patient states since leaving the hospital he has had no fevers no chills no trauma denies new pain Onset (ago): day(s) ( 1 day) Related Data Home Medications Medication Instructions Recorded Confirmed bupropion HCl 150 mg PO QAM 06/21/20 07/03/20 clonidine HCl 0.1 mg PO BEDTIME 06/21/20 07/03/20 gabapentin 600 mg PO TID 06/21/20 07/03/20 quetiapine 200 mg PO BEDTIME 06/21/20 07/03/20 Previous Rx's Medication Instructions Recorded amphetamine sulfate 20 mg PO BID@0800,1400 #10 tab 07/02/20 docusate sodium 100 mg PO BID #1 cap 07/02/20 ferrous sulfate 324 mg PO BIDWM #1 tab 07/02/20 lorazepam 1 mg PO Q6H PRN #30 tab 07/02/20 nicotine (polacrilex) 2 mg BUCCAL Q2H PRN #1 ea 07/02/20 omeprazole 20 mg PO BID@0630,1630 #1 cap 07/02/20 polyethylene glycol 3350 17 g PO DAILY #1 ea 07/02/20 Allergies Allergy/AdvReac Type Severity Reaction Status Date / Time haloperidol [From HALDOL] AdvReac Intermediate LOCK JAW Verified 06/26/20 17:37 olanzapine [From ZYPREXA] AdvReac Unknown PT REPORTS Verified 06/26/20 00:43 FEELS LIKE I AM ON AN ACID TRIP Review of Systems Review of Systems: Constitutional : No Weight loss, No Fever, No Chills, No Night Sweats, No Fatigue, No Malaise ENT/Mouth : No Hearing loss, No Ear Pain, No Nasal Congestion, No Sinus Pain, No Hoarseness, No sore throat, No Rhinorrhea, No Swallowing Difficulty Eyes: No Eye Pain, No Swelling, No Redness, No Foreign Body, No Discharge, No Vision Changes Cardiovascular : No Chest Pain, No SOB, No Dyspnea on Exertion, No Orthopnea, No Edema, No Palpitations Respiratory : No Cough, No Sputum, No Wheezing, No Smoke Exposure, No Dyspnea Gastrointestinal : No Nausea, No Vomiting, No Diarrhea, No Constipation, No abdominal Pain, No Hematochezia, No Melena Genitourinary : no irregular bleeding, No Dysuria, No Urinary Frequency, No Hematuria, No Urinary Incontinence, No Urgency, No Flank Pain, No Urinary Flow Changes, No Hesitancy Musculoskeletal : mild left knee pain Skin : No Skin Lesions, No rash Neuro : No Weakness, No Numbness, No Paresthesias, No Loss of Consciousness, No Dizziness, No Headache Psych : No Anxiety/Panic, No Depression, No SI/HI/AH/VH, No Social Issues, Heme/Lymph: No Bruising, No Bleeding,No Lymphadenopathy Endocrine : No Polyuria, No Polydipsia, No Temperature Intolerance [facility] Past Medical History Medical History (Updated 07/02/20 @ 22:57 by Luisito Martinez DO) DVT (deep venous thrombosis) Eye contusion Hepatitis C IV drug abuse Left upper extremity deep vein thrombosis Severe sepsis Surgical History (Updated 07/02/20 @ 22:55 by Luisito Martinez DO) History of left knee surgery Social History Social History Alcohol intake: current Alcohol intake frequency: 3 or more drinks per day Alcohol type: beer Smoking Status: Current every day smoker Use of substances other than those prescribed or required for medical reasons: Yes Substance Use Type: Crack/Cocaine, Marijuana and Unknown Last Used Substance: Hours (ago) Any prior treatment program specific to substance use: No Advance Directives: No Advance Directives Information Provided: No Physical Exam Vital Signs: Vital Signs: Vital Signs Temp Pulse Resp BP Pulse Ox 07/03/20 06:00 97.9 F 91 18 121/72 98 07/03/20 04:00 89 18 125/69 98 07/03/20 02:50 105 H 16 129/72 98 07/02/20 22:51 98.8 F 115 H 19 127/79 100 07/02/20 22:28 98.8 F 115 H 22 H 118/70 99 Body Mass Index 22.8 vital signs noted Appearance: Alert. Oriented X3. No acute distress. Eyes: Pupils equal, round and reactive to light. ENT: Pharynx normal. Neck: Normal inspection. Neck supple. No lymph nodes noted. No crepitus CVS: Normal heart rate and rhythm. Pulses normal. Normal S1 and S2 Respiratory: No respiratory distress. Breath sounds normal. No Wheezing. No rales Abdomen: Soft and nontender. No rigidity. No distention. good BS x4 Skin: Skin warm and dry. Normal skin color. Normal skin turgor. Extremities: mild left lower extremity edema. Neurovascular intact to all extremities. No Lacerations. No Rash Neuro: Oriented X 3. No motor deficit. No sensory deficit. Moving all extermities. No slurred speech. Medical Decision Making Medical Records Medical records reviewed: Yes I reviewed the patient's medical records. Medical records narrative: patient left AMA this morning in which was to be transferred to rehab secondary to septic pulmonary emboli bacteremia. Was on 2 g cefazolin Q 8 hours, and Lovenox 60 mg q.12. will give those now patient will need to stay in the emergency department to see case management for disposition Lab Data Result diagrams: 07/02/20 23:56 07/02/20 23:56 Labs: Lab Results 07/02/20 07/02/20 07/02/20 Range/Units 23:56 23:56 23:56 WBC 9.6 (4.8-10.8) X10*3/uL RBC 3.47 L (4.60-5.80) X10*6/uL Hgb 9.4 L (14.0-18.0) g/dl Hct 29.4 L (42-52) % MCV 84.7 (80-98) fL MCH 27.1 (27.0-33.0) pg MCHC 32.0 (31.0-36.0) g/dl RDW 12.9 (11.0-16.0) % Plt Count 591 H (160-400) X10*3/uL MPV 7.9 L (9.4-12.4) fL Immature Gran % (Auto) 0.7 H (0.0-0.4) % Neut % (Auto) 69.4 (45-73) % Lymph % (Auto) 19.1 L (20-40) % [place] % (Auto) 8.6 (2-11) % Eos % (Auto) 1.9 (0-4) % Baso % (Auto) 0.3 (0-2) % Lymph # (Auto) 1.8 (1.2-4.9) X10*3/uL [place] # (Auto) 0.8 (0.1-1.2) X10*3/uL Eos # (Auto) 0.2 (0.0-0.4) X10*3/uL Baso # (Auto) 0.0 (0.0-0.2) X10*3/uL Abs Immat Gran (auto) 0.07 H (0.00-0.03) X10*3/uL Absolute Neuts (auto) 6.7 (2.0-8.3) X10*3/uL Absolute Nucleated RBC 0.000 (0.0-0.012) X10*3/uL Nucleated RBC % (auto) 0.0 (0.0-0.2) /100WBC Sodium 134 L (135-145) mmol/L Potassium 4.2 (3.3-5.1) mmol/l Chloride 99 (96-108) mmol/L Carbon Dioxide 29 (22-29) mmol/L Anion Gap 10 L (12-20) BUN 12 (9-16) mg/dL Creatinine 0.58 (0.5-1.4) mg/dL Estim Creat Clear Calc 171.0 Estimated GFR > 60 Random Glucose 90 (60-115) mg/dL Lactic Acid 0.6 (0.5-2.0) mmol/L Calcium 9.2 (8.4-10.2) mg/dL Discharge Plan Discharge Clinical Impression: Bacteremia Chronic septic pulmonary embolism Qualifiers: Acute cor pulmonale presence: unspecified Qualified Code(s): I26.90 - Septic pulmonary embolism without acute cor pulmonale Prescriptions: No Action clonidine HCl 0.1 mg Tablet 0.1 mg PO BEDTIME RF: 0 gabapentin 600 mg Tablet 600 mg PO TID RF: 0 quetiapine 200 mg Tablet 200 mg PO BEDTIME RF: 0 bupropion HCl 150 mg Tablet Extended Release 24 Hr 150 mg PO QAM RF: 0 polyethylene glycol 3350 17 gram Powder In Packet 17 g PO DAILY Qty: 1 RF: 0 nicotine (polacrilex) 2 mg Gum 2 mg buccal Q2H PRN (Reason: Nicotine Cravings) Qty: 1 RF: 0 lorazepam 0.5 mg Tablet 1 mg PO Q6H PRN (Reason: Anxiety/Restlessness) Qty: 30 RF: 0 docusate sodium 100 mg Capsule 100 mg PO BID Qty: 1 RF: 0 omeprazole 20 mg Capsule,Delayed Release(Dr/Ec) 20 mg PO BID@0630,1630 Qty: 1 RF: 0 ferrous sulfate 324 mg (65 mg iron) Tablet,Delayed Release (Dr/Ec) 324 mg PO BIDWM Qty: 1 RF: 0 amphetamine sulfate 20 mg Tablet,Disintegrating 20 mg PO BID@0800,1400 Qty: 10 RF: 0
[2020-07-03] VITALS (8 sets, daily range): BP systolic 114–134; BP diastolic 54–72; PULSE 89–105; RESP 16–18; TEMP 36.6–36.8; O2SAT 96–98
[2020-07-03 00:09] LABS: Basophils Percent Auto 0.3 % (0-2); Eosinophils Absolute Auto 0.2 X10*3/uL (0.0-0.4); Eosinophils Percent Auto 1.9 % (0-4); Hematocrit 29.4 % (42-52); Hemoglobin 9.4 g/dl (14.0-18.0); Imm Gran Abs Auto 0.07 X10*3/uL (0.00-0.03); Imm Gran Pct Auto 0.7 % (0.0-0.4); Lymphocytes Absolute Auto 1.8 X10*3/uL (1.2-4.9); Lymphocytes Percent Auto 19.1 % (20-40); MANUAL DIFF FLAG NO; Mean Corpuscular Hemoglobin 27.1 pg (27.0-33.0); Mean Corpuscular Volume 84.7 fL (80-98); Mean Platelet Volume 7.9 fL (9.4-12.4); Monocytes Absolute Auto 0.8 X10*3/uL (0.1-1.2); Monocytes Percent Auto 8.6 % (2-11); Neutrophils Absolute Auto 6.7 X10*3/uL (2.0-8.3); Neutrophils Percent Auto 69.4 % (45-73); Platelet Count 591 X10*3/uL (160-400); Red Blood Count 3.47 X10*6/uL (4.60-5.80); Red Cell Distribution Width 12.9 % (11.0-16.0); White Blood Count 9.6 X10*3/uL (4.8-10.8)
[2020-07-03 00:33] LABS: Lactic Acid 0.6 mmol/L (0.5-2.0)
[2020-07-03] MEDS: ceFAZolin Sodium/Dextrose,Iso 2 GM/50 ML PIGGYBACK IV ×3 (00:35→17:55)
[2020-07-03] MEDS: Enoxaparin Sodium 60 MG/0.6 ML SYRINGE SUBCUT ×3 (00:35→20:12)
[2020-07-03 00:36] LABS: Anion Gap 10 (12-20); Blood Urea Nitrogen 12 mg/dL (9-16); Calcium 9.2 mg/dL (8.4-10.2); Carbon Dioxide 29 mmol/L (22-29); Chloride 99 mmol/L (96-108); Estimated Glomerular Filt Rate > 60; Glucose Random 90 mg/dL (60-115); Potassium 4.2 mmol/l (3.3-5.1); Sodium 134 mmol/L (135-145)
[2020-07-03] MEDS: oxyCODONE HCl Immed Release 5 MG TABLET PO ×3 (02:58→16:58)
[2020-07-03] MEDS: LORazepam 1 MG TABLET PO (02:58)
--- NOTE | 2020-07-03 11:37 | PC.NURSE ---
patient a&ox3, pt c/o lt knee pain 05/01, pt requesting extra pillow to raise lt knee, will continue to monitor.
--- NOTE | 2020-07-03 14:38 | PC.NURSE ---
report given to [facility] to reinier
--- NOTE | 2020-07-03 14:58 | MHC.CM.ED ---
Received case management consult overnight. Patient was supposed to go to [facility]. Patient decided to leave AMA. PICC was pulled last night. Patient returned to ER for IV antibiotics. Nhung of Case Management spoke with patient. Patient agreeable to going to [facility]. [facility] was willing to accept patient. However, PICC is unable to be placed today. Anticipate patient will stay in ER overnight. When PICC can be placed on Friday, patient will then discharge to [facility]. Continue to monitor for d/c needs.
--- NOTE | 2020-07-03 16:37 | PC.NURSE ---
patient states he still has 8/10 pain, patient states he feels as if hes withdrawing, vitals are stable, pt requesting additional pain meds as he isnt due for the oxycodone also would like ativan for anxiety, will notify provider, pt also asking for a regular hospital bed as he is uncomfortable in the stretcher.
--- NOTE | 2020-07-03 18:23 | PC.NURSE ---
patient a&ox3, patients bed was swapped from stretcher to hospital bed for comfort, iv antibotics started per order, pt currently eating dinner will do vitals when done and continue to monitor.
[2020-07-03] MEDS: LORazepam 1 MG TABLET 2 MG PO (20:12)
[2020-07-03] MEDS: Gabapentin 600 MG TABLET PO (20:27)
[2020-07-03] MEDS: cloNIDine HCL 0.1 MG TABLET PO (20:27)
[2020-07-03] MEDS: Omeprazole 20 MG CAPSULE.DR PO (20:27)
--- NOTE | 2020-07-03 20:29 | PC.NURSE ---
patient medicated per orders, also given some food as he was hungry
--- NOTE | 2020-07-04 00:13 | PC.NURSE ---
pt sleeping and repositions self
[2020-07-04 00:46] VITALS: BP 136/75; PULSE 86; RESP 16; O2SAT 98
[2020-07-04] MEDS: ceFAZolin Sodium/Dextrose,Iso 2 GM/50 ML PIGGYBACK IV ×2 (01:02→12:08)
[2020-07-04] MEDS: oxyCODONE HCl Immed Release 5 MG TABLET PO ×3 (01:02→14:10)
[2020-07-04 02:00] VITALS: BP 134/76; PULSE 86; RESP 16; O2SAT 99
[2020-07-04 02:07] VITALS: BP 134/76; PULSE 84; RESP 16
[2020-07-04 08:17] VITALS: BP 83/65; PULSE 95; RESP 18; TEMP 36.7; O2SAT 96
[2020-07-04] MEDS: 0.9 % Sodium Chloride 2,041.17 ML 2041.17 ML IVCONT (08:36)
[2020-07-04 08:49] VITALS: BP 121/73; PULSE 89; RESP 16; TEMP 36.9; O2SAT 98
--- NOTE | 2020-07-04 08:57 | PC.NURSE ---
Laxmi from IR called and spoke with this RN. Laxmi stated that IR does not want to place a new PICC line in this pt because he got upset and pulled his last one out . Laxmi further stated that the patient asked two of our nurses what would happen if I used drugs through it . This RN spoke with Dr. Osborn about IR's concerns. Dr. Osborn sts she is more than happy to get involved but the patient needs the PICC line. Laxmi sts she will have to speak with her director before they can proceed with the procedure. MD sylvester.
--- NOTE | 2020-07-04 09:45 | PC.NURSE ---
kitchen called for breakfast
--- NOTE | 2020-07-04 09:53 | MHC.CM.ED ---
IR RN CALLED AND ASKED FOR ED RN. PATIENT WILL BE TRANSPORTED FOR PICC SHORTLY. CASE MANAGEMENT FOLLOWING FOR POSSIBLE TRANSFER TO [facility]
--- NOTE | 2020-07-04 09:54 | PC.NURSE ---
PT VOIDED/EMPTIED 900ML OF YELLOW URINE IN URINAL
--- NOTE | 2020-07-04 09:57 | PC.NURSE ---
PT to IR room 7 for PICC line per Sophie in IR
--- NOTE | 2020-07-04 12:04 | PC.NURSE ---
Pt returned from IR.
[2020-07-04 12:06] VITALS: BP 105/61; PULSE 96; RESP 16; TEMP 36.8
[2020-07-04] MEDS: Enoxaparin Sodium 60 MG/0.6 ML SYRINGE SUBCUT (12:13)
--- NOTE | 2020-07-04 12:27 | PC.NURSE ---
per Laxmi in IR. IR was unable to place PICC line. MD sylvester
--- NOTE | 2020-07-04 12:33 | HO.PICC ---
PICC Line Insertion NPICC-ABORT PICC LINE Diagnosis: [SEPTIC KNEE] Indication: [FDC ANTIBX] Pertinent Labs: [REVIEWED] Technique: Following informed consent including risks, benefits and alternatives and using sterile technique including cap and mask, sterile gown, glove and drape, the [RIGHT ARM] arm was prepped and draped in the usual sterile fashion of full barrier technique with CHG. Following completion of [place] Protocol the skin and soft tissues were anesthetized with 1% Lidocaine plain. Using ultrasound guidance, [RIGHT BASILIC] vein access was obtained mutiple times by Laxmi Arreola RN and was unable to wire the picc line Marnie Chris URRUTIA accessed once but pt moved and pt stated I'm done with this and rehab can put in a peripheral IV . Arm Circumference: [28.5cm] Equipment: [BARD POWER PICC SOLO] Catheter Type: [4FR SINGLE LUMEN PICC] Lot #: [[id number]]
--- NOTE | 2020-07-04 13:33 | PC.NURSE ---
This RN spoke w/Rudy in the kitchen. Lunch tray is ordered for pt
--- NOTE | 2020-07-04 13:48 | PC.NURSE ---
pt eating lunch .Per CM pt going to [employer] at 1500 today. Pt made aware.
--- NOTE | 2020-07-04 14:31 | MHC.CM.ED ---
PATIENT TO TRANSFER TO [facility] FOR 15:00 VIA [facility] TRANSPORT. [facility] REPORTS BEING ABLE TO ACCOMMODATE PATIENT ON PERIPHERAL, AND PATIENT REFUSED PICC INSERTION DURING PROCEDURE. RN, UNIT, AND PATIENT AWARE OF PLAN. WANG FAXED TO [facility] @ [phone] PER CONVERSATION WITH [facility] SCREEN UNIT
[2020-07-05 16:03] LABS: SARS COV2 PCR INHOUSE NEGATIVE (Negative)
== END 2020-07-05 05:54 | disposition skilled nursing facility (03) ==
PROVIDERS: Physician Assistant; Emergency Provider Emergency Medicine
DX: I26.90 Septic pulmonary embolism without acute cor pulmonale (principal); R60.0 Localized edema; Z20.828 Contact with and (suspected) exposure to other viral communicable diseases; Z86.718 Personal history of other venous thrombosis and embolism; B19.20 Unspecified viral hepatitis C without hepatic coma; F17.200 Nicotine dependence, unspecified, uncomplicated; F14.90 Cocaine use, unspecified, uncomplicated; F12.90 Cannabis use, unspecified, uncomplicated; Z79.899 Other long term (current) drug therapy
CPT/HCPCS: 36415; 36573; 80048; 83605; 85025; 87040; 87635; 96361; 96365; 96372; 99284; 99285; C1751; J0690; J1650

== ENCOUNTER 2020-07-04 18:32 | Emergency (ER) | payer MEDICAID, SELFPAY ==
--- NOTE | 2020-07-04 19:25 | ED.GENADULT ---
HPI - General Adult General Chief complaint: General Medical Stated complaint: IV Insertation Time Seen by Provider: 07/04/20 19:12 Source: patient Mode of arrival: EMS Limitations: no limitations History of Present Illness HPI narrative: patient with IVDA heroin use with septic arthritis with strep pyogenes bacteremia supposed to continue IV 6 weeks of Kefzol left AMAOn 07/02 came back to the ER and sent to half-way today to [facility] around 03:00 pm and sent him back because they do not have any IV access and they cannot draw the blood patient need IV Kefzol till 07/25 per ID for bacteremia Related Data Home Medications Medication Instructions Recorded Confirmed bupropion HCl 150 mg PO QAM 06/21/20 07/04/20 clonidine HCl 0.1 mg PO BEDTIME 06/21/20 07/04/20 gabapentin 600 mg PO TID 06/21/20 07/04/20 quetiapine 200 mg PO BEDTIME 06/21/20 07/04/20 cefazolin in dextrose (iso-os) 100 ml IV Q8H 07/04/20 07/04/20 enoxaparin 60 mg SUBCUT Q12H 07/04/20 07/04/20 hydromorphone 4 mg PO Q4H PRN 07/04/20 07/04/20 lidocaine 1 patch TOPICAL DAILY 07/04/20 07/04/20 Previous Rx's Medication Instructions Recorded amphetamine sulfate 20 mg PO BID@0800,1400 #10 tab 07/02/20 docusate sodium 100 mg PO BID #1 cap 07/02/20 ferrous sulfate 324 mg PO BIDWM #1 tab 07/02/20 lorazepam 1 mg PO Q6H PRN #30 tab 07/02/20 nicotine (polacrilex) 2 mg BUCCAL Q2H PRN #1 ea 07/02/20 omeprazole 20 mg PO BID@0630,1630 #1 cap 07/02/20 polyethylene glycol 3350 17 g PO DAILY #1 ea 07/02/20 Allergies Allergy/AdvReac Type Severity Reaction Status Date / Time haloperidol [From HALDOL] AdvReac Intermediate LOCK JAW Verified 06/26/20 17:37 olanzapine [From ZYPREXA] AdvReac Unknown PT REPORTS Verified 06/26/20 00:43 FEELS LIKE I AM ON AN ACID TRIP Review of Systems Review of Systems: REVIEW OF SYSTEMS: Pertinent positives and negatives are stated above in the history. GEN: no fevers, chills, fatigue HEENT: no nasal congestion, sore throat, ear pain NEURO: no headache, dizziness, focal weakness PULM: no cough, shortness of breath CV: no chest pain, palpitations, LE edema ABD: no abdominal pain, nausea, vomiting, diarrhea : no dysuria, urgency, frequency SKIN: no rash ROS otherwise negative x 10 [facility] Past Medical History Medical History DVT (deep venous thrombosis) Eye contusion Hepatitis C IV drug abuse Left upper extremity deep vein thrombosis Severe sepsis Surgical History History of left knee surgery Social History Social History Alcohol intake: current Alcohol intake frequency: 3 or more drinks per day Alcohol type: hard liquor Smoking Status: Current every day smoker Use of substances other than those prescribed or required for medical reasons: Yes Substance Use Type: Crack/Cocaine, Heroin and Opiates Substance Use Frequency: Chronic Longstanding Last Used Substance: Weeks (ago) Any prior treatment program specific to substance use: No Advance Directives: No Advance Directives Information Provided: Yes Physical Exam Vital Signs: Vital Signs: Vital Signs Temp Pulse Resp BP Pulse Ox 07/05/20 00:18 84 123/84 07/04/20 20:13 15 07/04/20 20:00 98 F 88 15 116/62 99 07/04/20 19:28 98 F 88 18 118/62 99 Body Mass Index 22.8 Appearance: Alert. Oriented X3. No acute distress. anxious Eyes: Pupils equal, round and reactive to light. ENT: Pharynx normal. Neck: Normal inspection. Neck supple. CVS: Normal heart rate and rhythm. Pulses normal. Respiratory: No respiratory distress. Breath sounds normal. Abdomen: Soft and nontender. Skin: Skin warm and dry. Normal skin color. Normal skin turgor. Extremities: No lower extremity edema. Good range of movement left knee tender with Alfred wrap Neuro: Oriented X 3. No motor deficit. No sensory deficit. Course Course Course Narrative: patient with bacteremia strep pathogen ease with septic left knee needs Kefzol 2 g every 8 hours for 6 weeks ending on 07/25. Patient unable to get PICC line yesterday and in the half-way they were unable to place IV or blood draw. Will get transition social worker consult again tomorrow for placement where he can have IV access with IV antibiotics patient cannot get PICC line on the left arm because of DVT and right arm they tried and were not successful Reevaluation(s) Reevaluation #1: patient signed out to Dr. Flores Medical Decision Making Lab Data Result diagrams: 07/04/20 19:51 07/04/20 19:51 Labs: Lab Results 07/04/20 07/04/20 Range/Units 19:51 19:51 WBC 10.3 (4.8-10.8) X10*3/uL RBC 3.88 L (4.60-5.80) X10*6/uL Hgb 10.5 L (14.0-18.0) g/dl Hct 33.3 L (42-52) % MCV 85.8 (80-98) fL MCH 27.1 (27.0-33.0) pg MCHC 31.5 (31.0-36.0) g/dl RDW 13.2 (11.0-16.0) % Plt Count 740 H D (160-400) X10*3/uL MPV 7.9 L (9.4-12.4) fL Immature Gran % (Auto) 0.5 H (0.0-0.4) % Neut % (Auto) 67.2 (45-73) % Lymph % (Auto) 19.9 L (20-40) % [place] % (Auto) 10.4 (2-11) % Eos % (Auto) 1.8 (0-4) % Baso % (Auto) 0.2 (0-2) % Lymph # (Auto) 2.0 (1.2-4.9) X10*3/uL [place] # (Auto) 1.1 (0.1-1.2) X10*3/uL Eos # (Auto) 0.2 (0.0-0.4) X10*3/uL Baso # (Auto) 0.0 (0.0-0.2) X10*3/uL Abs Immat Gran (auto) 0.05 H (0.00-0.03) X10*3/uL Absolute Neuts (auto) 6.9 (2.0-8.3) X10*3/uL Absolute Nucleated RBC 0.000 (0.0-0.012) X10*3/uL Nucleated RBC % (auto) 0.0 (0.0-0.2) /100WBC Sodium 134 L (135-145) mmol/L Potassium 4.0 (3.3-5.1) mmol/l Chloride 101 (96-108) mmol/L Carbon Dioxide 26 (22-29) mmol/L Anion Gap 11 L (12-20) BUN 11 (9-16) mg/dL Creatinine 0.60 (0.5-1.4) mg/dL Estim Creat Clear Calc 166.1 Estimated GFR > 60 Random Glucose 95 (60-115) mg/dL Calcium 8.5 (8.4-10.2) mg/dL Discharge Plan Discharge Prescriptions: No Action clonidine HCl 0.1 mg Tablet 0.1 mg PO BEDTIME RF: 0 gabapentin 600 mg Tablet 600 mg PO TID RF: 0 quetiapine 200 mg Tablet 200 mg PO BEDTIME RF: 0 bupropion HCl 150 mg Tablet Extended Release 24 Hr 150 mg PO QAM RF: 0 polyethylene glycol 3350 17 gram Powder In Packet 17 g PO DAILY Qty: 1 RF: 0 nicotine (polacrilex) 2 mg Gum 2 mg buccal Q2H PRN (Reason: Nicotine Cravings) Qty: 1 RF: 0 lorazepam 0.5 mg Tablet 1 mg PO Q6H PRN (Reason: Anxiety/Restlessness) Qty: 30 RF: 0 docusate sodium 100 mg Capsule 100 mg PO BID Qty: 1 RF: 0 omeprazole 20 mg Capsule,Delayed Release(Dr/Ec) 20 mg PO BID@0630,1630 Qty: 1 RF: 0 ferrous sulfate 324 mg (65 mg iron) Tablet,Delayed Release (Dr/Ec) 324 mg PO BIDWM Qty: 1 RF: 0 amphetamine sulfate 20 mg Tablet,Disintegrating 20 mg PO BID@0800,1400 Qty: 10 RF: 0 lidocaine 4 % Adhesive Patch,Medicated 1 patch TOPICAL DAILY RF: 0 hydromorphone 4 mg Tablet 4 mg PO Q4H PRN (Reason: Pain (Scale Score 7-10)) RF: 0 enoxaparin 60 mg/0.6 mL Syringe 60 mg SUBCUT Q12H RF: 0 cefazolin in dextrose (iso-os) 2 gram/100 mL Piggyback 100 ml IV Q8H RF: 0
[2020-07-04 19:28] VITALS: BP 118/62; PULSE 88; RESP 18; TEMP 36.6; O2SAT 99; BMI 22.8
[2020-07-04] MEDS: LORazepam 1 MG TABLET PO (19:56)
[2020-07-04 20:00] VITALS: BP 116/62; PULSE 88; RESP 15; TEMP 36.6; O2SAT 99
[2020-07-04 20:01] LABS: MANUAL DIFF FLAG NO
[2020-07-04 20:03] LABS: Basophils Percent Auto 0.2 % (0-2); Eosinophils Absolute Auto 0.2 X10*3/uL (0.0-0.4); Eosinophils Percent Auto 1.8 % (0-4); Hematocrit 33.3 % (42-52); Hemoglobin 10.5 g/dl (14.0-18.0); Imm Gran Abs Auto 0.05 X10*3/uL (0.00-0.03); Imm Gran Pct Auto 0.5 % (0.0-0.4); Lymphocytes Percent Auto 19.9 % (20-40); Mean Corpuscular HGB Conc 31.5 g/dl (31.0-36.0); Mean Corpuscular Hemoglobin 27.1 pg (27.0-33.0); Mean Corpuscular Volume 85.8 fL (80-98); Mean Platelet Volume 7.9 fL (9.4-12.4); Monocytes Absolute Auto 1.1 X10*3/uL (0.1-1.2); Monocytes Percent Auto 10.4 % (2-11); Neutrophils Absolute Auto 6.9 X10*3/uL (2.0-8.3); Neutrophils Percent Auto 67.2 % (45-73); Platelet Count 740 X10*3/uL (160-400); Red Blood Count 3.88 X10*6/uL (4.60-5.80); Red Cell Distribution Width 13.2 % (11.0-16.0); White Blood Count 10.3 X10*3/uL (4.8-10.8)
[2020-07-04 20:13] VITALS: RESP 15
[2020-07-04] MEDS: HYDROmorphone HCl 1 MG/ML SYRINGE IVPUSH (20:13)
[2020-07-04] MEDS: ceFAZolin Sodium 2 GM in 0.9 % Sodium Chloride 100 ML IV (20:14)
[2020-07-04 20:23] LABS: Anion Gap 11 (12-20); Blood Urea Nitrogen 11 mg/dL (9-16); Calcium 8.5 mg/dL (8.4-10.2); Carbon Dioxide 26 mmol/L (22-29); Chloride 101 mmol/L (96-108); Creatinine Clr Calc Pharmacy 166.1; Estimated Glomerular Filt Rate > 60; Glucose Random 95 mg/dL (60-115); Sodium 134 mmol/L (135-145)
[2020-07-05] VITALS: RESP 15
[2020-07-05] MEDS: Enoxaparin Sodium 60 MG/0.6 ML SYRINGE SUBCUT ×2 (00:17→14:02)
[2020-07-05 00:18] VITALS: BP 123/84; PULSE 84
[2020-07-05] MEDS: Docusate Sodium 100 MG CAPSULE PO ×2 (00:18→09:44)
[2020-07-05] MEDS: cloNIDine HCL 0.1 MG TABLET PO (00:18)
[2020-07-05] MEDS: buPROPion HCl XL 150 MG TAB.ER.24H PO ×2 (00:19→09:45)
[2020-07-05] MEDS: Gabapentin 600 MG TABLET PO ×2 (00:19→09:43)
[2020-07-05] MEDS: HYDROmorphone HCl 2 MG/ML VIAL IVPUSH (00:20)
[2020-07-05] MEDS: QUEtiapine Fumarate 200 MG TABLET PO (00:20)
[2020-07-05] MEDS: ceFAZolin Sodium 2 GM in 0.9 % Sodium Chloride 100 ML IV (03:45)
[2020-07-05 04:00] VITALS: RESP 15
[2020-07-05] MEDS: polyethylene glycoL 3350 17 GM POWD.PACK PO (09:43)
[2020-07-05] MEDS: Ferrous Sulfate 324 MG TABLET.DR PO (09:43)
[2020-07-05 10:08] VITALS: BP 130/71; PULSE 90; RESP 18; TEMP 36.7; O2SAT 98
--- NOTE | 2020-07-05 10:31 | MHC.CM.ED ---
Received case management consult overnight. Patient was discharged to [facility] last night with a peripheral IV. Nurse at the facility removed the IV, not knowing patient needed it for IV antibiotics. Patient returned to ER for IV placement. Referral made to [facility] to see if they can accept patient again. [facility] liaison is going to discuss with the building. Continue to monitor for d/c needs.
--- NOTE | 2020-07-05 12:30 | PC.NURSE ---
PT AT INTERVENTIONAL RADIOLOGY FOR INSERTION OF MIDLINE
[2020-07-05 12:50] VITALS: BP 123/74; PULSE 82; RESP 14; TEMP 36.5; O2SAT 98
[2020-07-05] MEDS: Amphetamine Mixed Salts 20 MG TABLET PO (12:55)
--- NOTE | 2020-07-05 13:06 | HO.MIDLINE_ITS ---
PICC Line Insertion MIDLINE INSERTION Diagnosis: septic arthritis Indication: remote computer terminal operator antibiotics Pertinent Labs: reviewed Technique: Following informed consent including risks, benefits and alternatives and using sterile technique including cap and mask, sterile gown, glove and drape, the RIGHT arm was prepped and draped in the usual sterile fashion with CHG. Using ultrasound guidance, RIGHT BASILIC vein access was obtained IN SINGLE ATTEMPT BY THIS RN. A 20G, 10 CM SINGLE LUMEN NON-PASV POWERGLIDE PRO MIDLINE catheter was positioned. The procedure was performed in IR ULTRASOUND ROOM. Vascular Preparer Making Department has released the line for use and it is currently dressed with a StatLock, Tegaderm, and CHG BIOPATCH disc. Verification has been performed for blood return and line patency. Arm Circumference: 26.5 CM Equipment: BARD POWERGLIDE PRO MIDLINE CATHETER Catheter Type: 20G, 10CM POWERGLIDE PRO MIDLINE SINGLE LUMEN Lot #: [id number]
--- NOTE | 2020-07-05 13:07 | MHC.CM.ED ---
Midline has been inserted by interventional radiology. [facility] is not able to offer a bed. Referral broadcasted to all facilities within 20 miles that are able to distribute Suboxone. [facility] are not able to offer a bed. [facility] is reviewing to see if they can offer a bed. Continue to monitor for d/c needs.
[2020-07-05] MEDS: Nicotine Polacrilex 2 MG GUM BUCCAL (13:59)
[2020-07-05] MEDS: LORazepam 0.5 MG TABLET 1 MG PO (13:59)
--- NOTE | 2020-07-05 14:12 | MHC.CM.ED ---
[facility] is able to offer a bed. Patient can leave here at 330pm. Patient feels [facility] is a little far, but understands [facility] will not accept him back. [facility] booked for 330pm. [facility] with chart. T/w spoke with Ning at [facility] in regards to MDS. [facility] is pending. Continue to monitor for d/c needs.
--- NOTE | 2020-07-05 15:17 | PC.NURSE ---
attempted to call [employer] for nurse to nurse report; sent to nurses station by hair blender, placed on hold and no pecan picker by rn x 5 minutes.
== END 2020-07-05 16:11 | disposition skilled nursing facility (03) ==
PROVIDERS: Emergency Provider Internal Medicine; PCP Family Medicine
DX: R78.81 Bacteremia (principal); A40.0 Sepsis due to streptococcus, group A; M17.12 Unilateral primary osteoarthritis, left knee; F11.10 Opioid abuse, uncomplicated; Z86.718 Personal history of other venous thrombosis and embolism; Z79.899 Other long term (current) drug therapy
CPT/HCPCS: 36410; 36415; 80048; 85025; 87635; 96365; 96366; 96372; 96375; 96376; 99284; 99285; J1170; J1650

== ENCOUNTER → 2020-07-14 10:05 | Outpatient (BNVA) | payer OTHER, SELFPAY | PROVIDERS: PCP Family Medicine; Visit Provider Physician Assistant | DX: M25.462 Effusion, left knee (principal); Z96.652 Presence of left artificial knee joint | CPT/HCPCS: 99202; 99212 ==

== ENCOUNTER 2020-12-12 00:10 | Emergency (ER) | payer MEDICAID, SELFPAY ==
--- NOTE | ~2020-12-12 | XR_ITS ---
EXAMINATION: LEFT KNEE 3 VIEWS CLINICAL INFORMATION: Left knee pain. COMPARISON: 06/23/2020. TECHNIQUE: AP, lateral, oblique views of the left knee were obtained. FINDINGS: There are no fractures or dislocations. There is a moderate to large knee joint effusion. There is no significant soft tissue swelling. XR/XR knee LT 4V IMPRESSION: Moderate to large knee joint effusion. No demonstrable fracture.
[2020-12-12 00:13] VITALS: BP 139/70; PULSE 107; RESP 18; TEMP 36.8; O2SAT 96; BMI 22.8
--- NOTE | 2020-12-12 01:48 | ED.LOWEXIN ---
HPI - Extremity Injury (Lower) General Chief Complaint: Extremity Injury, Lower Stated Complaint: Knee pain Time Seen by Provider: 12/12/20 00:28 Source: patient Mode of arrival: ambulatory Limitations: no limitations History of Present Illness HPI Narrative: Patient presents to ED for left knee pain. Patient states this morning he got up this morning to use the bathroom and his left knee gave out & heard a click which caused him to fall to the ground and onto his left knees. Patient denies any fever, chills, chest pain or shortness of breath. Related Data Home Medications Medication Instructions Recorded Confirmed bupropion HCl 150 mg PO QAM 06/21/20 07/04/20 clonidine HCl 0.1 mg PO BEDTIME 06/21/20 07/04/20 gabapentin 600 mg PO TID 06/21/20 07/04/20 quetiapine 200 mg PO BEDTIME 06/21/20 07/04/20 cefazolin in dextrose (iso-os) 100 ml IV Q8H 07/04/20 07/04/20 enoxaparin 60 mg SUBCUT Q12H 07/04/20 07/04/20 hydromorphone 4 mg PO Q4H PRN 07/04/20 07/04/20 lidocaine 1 patch TOPICAL DAILY 07/04/20 07/04/20 Previous Rx's Medication Instructions Recorded amphetamine sulfate 20 mg PO BID@0800,1400 #10 tab 07/02/20 docusate sodium 100 mg PO BID #1 cap 07/02/20 ferrous sulfate 324 mg PO BIDWM #1 tab 07/02/20 lorazepam 1 mg PO Q6H PRN #30 tab 07/02/20 nicotine (polacrilex) 2 mg BUCCAL Q2H PRN #1 ea 07/02/20 omeprazole 20 mg PO BID@0630,1630 #1 cap 07/02/20 polyethylene glycol 3350 17 g PO DAILY #1 ea 07/02/20 naproxen 500 mg PO BID PRN #20 tab 12/12/20 Allergies Allergy/AdvReac Type Severity Reaction Status Date / Time haloperidol [From HALDOL] AdvReac Intermediate LOCK JAW Verified 12/12/20 00:18 olanzapine [From ZYPREXA] AdvReac Unknown PT REPORTS Verified 12/12/20 00:18 FEELS LIKE I AM ON AN ACID TRIP Review of Systems Review of Systems: Yes all other systems are reviewed and are negative Constitutional: Constitutional: Reports as per HPI, Reports no additional constitutional complaints and Reports anorexia Eyes: Eyes: Reports as per HPI and Reports no additional eye complaints ENT: Reports system reviewed and no additional complaints, except as documented and Reports as per HPI Cardiovascular: Cardiovascular: Reports as per HPI and Reports no additional cardiovascular complaints Respiratory: Respiratory: Reports as per HPI and Reports no additional respiratory complaints Gastrointestinal: Gastrointestinal: Reports as per HPI and Reports no additional gastrointestinal complaints Genitourinary: Genitourinary: Reports no additional male genitourinary complaints and Reports as per HPI Musculoskeletal: Musculoskeletal: Reports no additional musculoskeletal complaints and Reports as per HPI Comments: Left knee pain Neurologic: Reports system reviewed and no additional complaints, except as documented and Reports as per HPI Psychiatric: Psychiatric: Reports no additional psychiatric complaints and Reports as per HPI [facility] Past Medical History Medical History (Updated 12/12/20 @ 02:01 by KORI Yin) DVT (deep venous thrombosis) Endocarditis Eye contusion Hepatitis C IV drug abuse Left upper extremity deep vein thrombosis Severe sepsis Surgical History History of left knee surgery Social History Social History Alcohol intake: current Alcohol intake frequency: 3 or more drinks per day Alcohol type: hard liquor Smoking Status: Current every day smoker Substance Use Type: Crack/Cocaine, Heroin and Opiates Advance Directives: No Advance Directives Information Provided: No Physical Exam Vital Signs: Vital Signs: Last Vital Signs Temp 98.3 F 12/12/20 00:13 Pulse 107 H 12/12/20 00:13 Resp 18 12/12/20 00:13 BP 139/70 12/12/20 00:13 Pulse Ox 96 12/12/20 00:13 Body Mass Index 22.8 Const: General: cooperative, healthy appearing, comfortable, no acute distress, well developed, alert, awake and Physically active Orientation/consciousness: patient oriented x3 HENMT: Head: Yes normal to inspection, Yes No palpable skull fracture present, Yes normocephalic, Yes atraumatic and No abrasion Eyes: General: appearance normal, both eyes and all related structures Neck: Neck: Yes normal visual inspection, Yes full ROM, Yes no lymphadenopathy, Yes no meningeal signs, Yes trachea midline, Yes supple and No tender Chest: Chest palpation & inspection: normal inspection of the chest and normal palpation of entire chest wall Resp: Effort & Inspection: normal respiratory effort and able to speak in complete sentences Auscultation: clear to auscultation bilaterally Cardio: Jugular venous distension: no JVD Heart sounds: S1 normal heart sound present GI: Inspection: Yes normal to inspection and No abdominal wall ecchymosis Palpation (GI): Soft to palpation, not firm, nontender, no guarding and not rigid : General: No CVA tenderness and Yes no CVA tenderness Back/Spine/Pelvis: Back: no CVA tenderness, No CVA tenderness and No back tenderness Skin: General skin exam: no rashes or lesions noted and elasticity normal Neuro: General: patient oriented x3, no meningeal signs and CN's II-XI intact bilaterally Cranial nerves: Yes CN's II-XII intact bilaterally Extrem: Other: Left knee; positive for swelling. Negative for redness. Negative for warmth. Patient has complete range of motion of knee. Patient able to ambulate on his own without any help and ambulates on his own and able to bear weight. Rest of lower extremity negative for any redness, swelling, or deformity. I observed patient walking to the bathroom on his own without any aid Psych: Appearance: grossly normal, well kempt and not disheveled Course Course Course Narrative: History physical exam does not indicate septic knee. Patient does not have a fever. Physical exam does not indicate septic knee. This swelling knee effusion sounds trauma induced. Will discuss case with attending, Dr. Lopez Reevaluation(s) Reevaluation #1: Case was discussed with Dr. Flores due to patient's history of septic emboli. Patient was admitted last June and developed knee swelling which was drained by orthopedic and patient was found to have left knee hematoma as cause of swelling of knee. The cultures were negative for bacteria at that time. Patient states he has had knee swelling after that ever since and resolves with conservative treatment. Dr. Flores agrees patient presently not presenting as septic be and arthrocentesis not indicated. Patient will have conservative management such as Alfred wrap and pain meds. Patient informed if he has fever, chills, redness, warmth of the knee, decrease mobility or increased swelling should come to the ED for arthrocentesis to rule out septic joint. Patient does not need crutches, but he asked for them due to patient stated he has a long walk home. MDM - Extremity Injury (Lower) MDM Narrative Medical decision making narrative: Left knee Discharge Plan Discharge Clinical Impression: Effusion, left knee, Left knee sprain Patient Disposition: Home, Self-Care Instructions: Knee Sprain (ED), Swollen Knee Joint (ED) Additional Instructions: Return to the ED immediately for increased knee swelling, redness, warmth, inability to bend knee, inability to walk, fever, chills, chest pain, shortness of breath, or any other concerning symptoms. Prescriptions: New naproxen 500 mg tablet 500 mg PO BID PRN (Reason: pain) Qty: 20 RF: 0 No Action clonidine HCl 0.1 mg Tablet 0.1 mg PO BEDTIME RF: 0 gabapentin 600 mg Tablet 600 mg PO TID RF: 0 quetiapine 200 mg Tablet 200 mg PO BEDTIME RF: 0 bupropion HCl 150 mg Tablet Extended Release 24 Hr 150 mg PO QAM RF: 0 polyethylene glycol 3350 17 gram Powder In Packet 17 g PO DAILY Qty: 1 RF: 0 nicotine (polacrilex) 2 mg Gum 2 mg buccal Q2H PRN (Reason: Nicotine Cravings) Qty: 1 RF: 0 lorazepam 0.5 mg Tablet 1 mg PO Q6H PRN (Reason: Anxiety/Restlessness) Qty: 30 RF: 0 docusate sodium 100 mg Capsule 100 mg PO BID Qty: 1 RF: 0 omeprazole 20 mg Capsule,Delayed Release(Dr/Ec) 20 mg PO BID@0630,1630 Qty: 1 RF: 0 ferrous sulfate 324 mg (65 mg iron) Tablet,Delayed Release (Dr/Ec) 324 mg PO BIDWM Qty: 1 RF: 0 amphetamine sulfate 20 mg Tablet,Disintegrating 20 mg PO BID@0800,1400 Qty: 10 RF: 0 lidocaine 4 % Adhesive Patch,Medicated 1 patch TOPICAL DAILY RF: 0 hydromorphone 4 mg Tablet 4 mg PO Q4H PRN (Reason: Pain (Scale Score 7-10)) RF: 0 enoxaparin 60 mg/0.6 mL Syringe 60 mg SUBCUT Q12H RF: 0 cefazolin in dextrose (iso-os) 2 gram/100 mL Piggyback 100 ml IV Q8H RF: 0 Referrals: Ricardo Cortez MD [Physician] - 2 days (Left knee effusion. Knee sprain) Interventions: ED Discharge Assessment Last Done: 12/12/20 02:21 Print Language: Icelandic
[2020-12-12] MEDS: Ibuprofen 800 MG TABLET PO (03:07)
== END 2020-12-12 03:09 | disposition home or self-care (01) ==
PROVIDERS: Emergency Provider Internal Medicine; PCP Family Medicine
DX: S83.92XA Sprain of unspecified site of left knee, initial encounter (principal); M25.562 Pain in left knee; M25.462 Effusion, left knee; F11.90 Opioid use, unspecified, uncomplicated; F14.90 Cocaine use, unspecified, uncomplicated; W01.0XXA Fall on same level from slipping, tripping and stumbling without subsequent striking against object, initial encounter; Y93.9 Activity, unspecified; Y92.002 Bathroom of unspecified non-institutional (private) residence as the place of occurrence of the external cause; F17.200 Nicotine dependence, unspecified, uncomplicated; Z71.6 Tobacco abuse counseling; Z79.899 Other long term (current) drug therapy
CPT/HCPCS: 73564; 99283

== ENCOUNTER 2021-01-28 15:17 | Emergency (ER) | payer MEDICAID, SELFPAY ==
[2021-01-28 15:24] VITALS: BP 121/78; BP 131/76; PULSE 101; RESP 20; TEMP 36.2; O2SAT 95; O2SAT 97; BMI 22.7
--- NOTE | 2021-01-28 15:37 | PC.NURSE ---
belongings taken by security to [facility] room.
[2021-01-28 16:00] VITALS: RESP 18
[2021-01-28] MEDS: Albuterol Sulfate 90 MCG 8 GM INHALER 1 PUFF INHALE (16:09)
--- NOTE | 2021-01-28 16:16 | ED_ITS ---
HPI - Alcohol General Chief Complaint: ETOH/Substance Use Stated Complaint: ETOH Time Seen by Provider: 01/28/21 15:33 Source: patient and EMS Mode of arrival: EMS Limitations: no limitations History of Present Illness HPI narrative: Patient comes to emergency room, states that he does not remember how he got here. According to EMS, police department found the patient, called EMS, heroin back for visible at the patient's side. Patient reports that he used marijuana, heroin, speed ball, PCP, alcohol throughout the day today. Patient states he feels jittery, also complaining of shortness of breath secondary to his asthma acting up. Patient states that he has been using his pump every 4 hours, seems that the weather and the pollen worsen his symptoms. Patient requesting albuterol Related Data Home Medications Medication Instructions Recorded Confirmed bupropion HCl 150 mg PO QAM 06/21/20 07/04/20 clonidine HCl 0.1 mg PO BEDTIME 06/21/20 07/04/20 gabapentin 600 mg PO TID 06/21/20 07/04/20 quetiapine 200 mg PO BEDTIME 06/21/20 07/04/20 cefazolin in dextrose (iso-os) 100 ml IV Q8H 07/04/20 07/04/20 enoxaparin 60 mg SUBCUT Q12H 07/04/20 07/04/20 hydromorphone 4 mg PO Q4H PRN 07/04/20 07/04/20 lidocaine 1 patch TOPICAL DAILY 07/04/20 07/04/20 Previous Rx's Medication Instructions Recorded amphetamine sulfate 20 mg PO BID@0800,1400 #10 tab 07/02/20 docusate sodium 100 mg PO BID #1 cap 07/02/20 ferrous sulfate 324 mg PO BIDWM #1 tab 07/02/20 lorazepam 1 mg PO Q6H PRN #30 tab 07/02/20 nicotine (polacrilex) 2 mg BUCCAL Q2H PRN #1 ea 07/02/20 omeprazole 20 mg PO BID@0630,1630 #1 cap 07/02/20 polyethylene glycol 3350 17 g PO DAILY #1 ea 07/02/20 naproxen 500 mg PO BID PRN #20 tab 12/12/20 prednisone 50 mg PO DAILY #4 tab 01/28/21 Allergies Allergy/AdvReac Type Severity Reaction Status Date / Time haloperidol [From HALDOL] AdvReac Intermediate LOCK JAW Verified 12/12/20 00:18 olanzapine [From ZYPREXA] AdvReac Unknown PT REPORTS Verified 12/12/20 00:18 FEELS LIKE I AM ON AN ACID TRIP Review of Systems Review of Systems: Constitutional : No Weight loss, No Fever, No Chills, No Night Sweats, No Fatigue, No Malaise ENT/Mouth : No Hearing loss, No Ear Pain, No Nasal Congestion, No Sinus Pain, No Hoarseness, No sore throat, No Rhinorrhea, No Swallowing Difficulty Eyes: No Eye Pain, No Swelling, itchiness in both eyes, No Redness, No Foreign Body, No Discharge, No Vision Changes Cardiovascular : No Chest Pain, No SOB, No Dyspnea on Exertion, No Orthopnea, No Edema, No Palpitations Respiratory : No Cough, No Sputum, feeling short of breath secondary to asthma, No Smoke Exposure, No Dyspnea Gastrointestinal : No Nausea, No Vomiting, No Diarrhea, No Constipation, No abdominal Pain, No Hematochezia, No Melena Genitourinary : no irregular bleeding, No Dysuria, No Urinary Frequency, No Hematuria, No Urinary Incontinence, No Urgency, No Flank Pain, No Urinary Flow Changes, No Hesitancy Musculoskeletal : No joint pain, No Myalgias, No Joint Swelling Skin : No Skin Lesions, No rash Neuro : No Weakness, No Numbness, No Paresthesias, No Loss of Consciousness, No Dizziness, No Headache Psych : Feeling anxious, No Depression, No SI/HI/AH/VH, No Social Issues, Heme/Lymph: No Bruising, No Bleeding,No Lymphadenopathy Endocrine : No Polyuria, No Polydipsia, No Temperature Intolerance FOR[facility], [facility] Past Medical History Medical History DVT (deep venous thrombosis) Endocarditis Eye contusion Hepatitis C IV drug abuse Left upper extremity deep vein thrombosis Severe sepsis Surgical History History of left knee surgery Social History Social History Alcohol intake: current Alcohol intake frequency: 0-2 drinks per day Alcohol type: hard liquor Smoking Status: Current every day smoker Smoked in Last 30 Days: Yes Use of substances other than those prescribed or required for medical reasons: Yes Substance Use Type: Amphetamines, Crack/Cocaine, Heroin, IV Drugs, Marijuana, Other and Prescription Drugs Substance Use Frequency: Chronic Longstanding Advance Directives: No Advance Directives Information Provided: No Physical Exam Vital Signs: Vital Signs: Last Vital Signs Temp 97.2 F 01/28/21 15:24 Pulse 101 H 01/28/21 15:24 Resp 18 01/28/21 16:00 BP 131/76 01/28/21 15:24 Pulse Ox 95 01/28/21 15:24 Body Mass Index 22.7 Appearance: Alert. Oriented X3. No acute distress. Anxious, rapid speech, unable to sit still, pacing around the hallway Eyes: Pupils equal, round and reactive to light. ENT: Pharynx normal. Neck: Normal inspection. Neck supple. No lymph nodes noted. No crepitus CVS: Normal heart rate and rhythm. Pulses normal. Normal S1 and S2 Respiratory: No respiratory distress. Breath sounds normal. Occasional bilateral Wheezing, good air movement, speaking in full sentences. No rales Abdomen: Soft and nontender. No rigidity. No distention. good BS x4 Skin: Skin warm and dry. Normal skin color. Normal skin turgor. Extremities: No lower extremity edema. No lower extremity edema. No Lacerations. No Rash Neuro: Oriented X 3. No motor deficit. No sensory deficit. Moving all extermities. No slurred speech. Course Course Course Narrative: Patient refused EKG, patient refused any further blood work or imaging. I discussed with the patient that I am concerned that he has history septic pulmonary embolisms, DVTs. Patient states that after his inhaler he does not feel short of breath anymore. Patient declined any further workup. Patient states that he feels well. Discharge Plan Discharge Clinical Impression: Substance abuse Asthma Qualifiers: Asthma severity: unspecified severity Asthma persistence: unspecified Asthma complication type: unspecified Qualified Code(s): J45.909 - Unspecified asthma, uncomplicated Patient Disposition: Home, Self-Care Instructions: Asthma (ED), Polysubstance Abuse (ED) Additional Instructions: Please follow-up with your primary care physician tomorrow. If you have any worsening or new symptoms, please return to the emergency room or call 911 Prescriptions: New prednisone 50 mg tablet 50 mg PO DAILY Qty: 4 RF: 0 No Action clonidine HCl 0.1 mg Tablet 0.1 mg PO BEDTIME RF: 0 gabapentin 600 mg Tablet 600 mg PO TID RF: 0 quetiapine 200 mg Tablet 200 mg PO BEDTIME RF: 0 bupropion HCl 150 mg Tablet Extended Release 24 Hr 150 mg PO QAM RF: 0 polyethylene glycol 3350 17 gram Powder In Packet 17 g PO DAILY Qty: 1 RF: 0 nicotine (polacrilex) 2 mg Gum 2 mg buccal Q2H PRN (Reason: Nicotine Cravings) Qty: 1 RF: 0 lorazepam 0.5 mg Tablet 1 mg PO Q6H PRN (Reason: Anxiety/Restlessness) Qty: 30 RF: 0 docusate sodium 100 mg Capsule 100 mg PO BID Qty: 1 RF: 0 omeprazole 20 mg Capsule,Delayed Release(Dr/Ec) 20 mg PO BID@0630,1630 Qty: 1 RF: 0 ferrous sulfate 324 mg (65 mg iron) Tablet,Delayed Release (Dr/Ec) 324 mg PO BIDWM Qty: 1 RF: 0 amphetamine sulfate 20 mg Tablet,Disintegrating 20 mg PO BID@0800,1400 Qty: 10 RF: 0 lidocaine 4 % Adhesive Patch,Medicated 1 patch TOPICAL DAILY RF: 0 hydromorphone 4 mg Tablet 4 mg PO Q4H PRN (Reason: Pain (Scale Score 7-10)) RF: 0 enoxaparin 60 mg/0.6 mL Syringe 60 mg SUBCUT Q12H RF: 0 cefazolin in dextrose (iso-os) 2 gram/100 mL Piggyback 100 ml IV Q8H RF: 0 naproxen 500 mg tablet 500 mg PO BID PRN (Reason: pain) Qty: 20 RF: 0
[2021-01-28] MEDS: predniSONE 20 MG TABLET 60 MG PO (16:30)
--- NOTE | 2021-01-28 16:33 | PC.NURSE ---
pt has been observed walking to different bathrooms to take what appears to be baths. Pt is notified that he must wait for staff to escort him to and from the rest room. Pt is hyper animated in conversation and requesting detox and support services at this time. Pt reports improvement in sob after prednisone and albuterol inhaler. monitoring at this time.
--- NOTE | 2021-01-28 16:43 | MHC.RECOVSUP ---
Recovery Support note: Patient is a 35 year old Polish speaking male who presented to [facility] ED after police found him under the influence and called EMS. Patient reports to have used multiple substances including heroin, cocaine and PCP. This underwriter met with patient to discuss substance use and treatment options. Patient was hyperverbal however remained engaged in consultation. Patient reports this is a tough time of year for him as it is around the time of his mother's birthday and she two days before he was released [facility] [place] [facility]. Patient reports he has been staying with his brother in [place] and that his brother is sober. Patient reports he was previously at a [facility] however left to see his father. Patient reports his father that night and that he was the one to discover the body. Patient reports he section 35'd himself and spent 90 days at [facility] and found it helpful. Patient was previously on Suboxone however required knee surgery and was put on dilaudid. Patient reports he started using the dilaudid more than it was prescribed and that he started using heroin again. Patient reports he uses heroin due to his knee pain and that he has plans to get on methadone. Patient reports he has a primary care doctor who is supportive and is helping him get established with a methadone clinic. Patient reports he was going to go to the clinic in [place] for an intake tomorrow however he states they would start dosing him the following week. Discussed the [facility] in [place] and how they may be able to start dosing patient sooner and that they accept walk-ins. Patient reports this would be more convenient for him and that he would rather go there. Provided patient with information regarding walk-in times and the address for that clinic. Patient reports he has a [employer] and has been in contact with him. Encouraged patient to continue to reach out for support. Provided patient with the contact information for this underwriter in the event that he has additional questions or concerns. Patient declines detox referrals at this time. Patient reports he is already a member at [facility].
--- NOTE | 2021-01-28 16:53 | PC.NURSE ---
pt remains hyper animated in conversation. pt has spilled multiple drinks and continues to ambulate in hallway. Per patient FUCK you guys, i hate that you're all so disrespectful I want to leave. Pt educated that he must be medically cleared.
--- NOTE | 2021-01-28 17:02 | PC.NURSE ---
Pt continuing refuse ekg. Pt educated to purpose. elma had too many in my life. I don't care .
--- NOTE | 2021-01-28 17:06 | PC.NURSE ---
pt reports improvement in sob. Pt requesting to go home. Md notified and will reevaluate.
== END 2021-01-28 17:27 | disposition home or self-care (01) ==
PROVIDERS: Emergency Provider Emergency Medicine; PCP Family Medicine
DX: J45.909 Unspecified asthma, uncomplicated (principal); F11.10 Opioid abuse, uncomplicated; F12.10 Cannabis abuse, uncomplicated; F14.10 Cocaine abuse, uncomplicated; F17.200 Nicotine dependence, unspecified, uncomplicated; Z71.51 Drug abuse counseling and surveillance of drug abuser; Z71.6 Tobacco abuse counseling; Z79.899 Other long term (current) drug therapy
CPT/HCPCS: 99285

== ENCOUNTER 2021-02-28 04:34 | Inpatient (IN) | payer OTHER, MEDICAID, SELFPAY ==
[2021-02-28] VITALS (7 sets, daily range): BP systolic 119–129; BP diastolic 79–83; PULSE 77–85; RESP 16–20; TEMP 36.5; O2SAT 97–100; BMI 21.2
--- NOTE | 2021-02-28 06:22 | ED.PSYCH ---
HPI - Psych General Chief Complaint: Psychiatric Symptoms Time Seen by Provider: 02/28/21 06:22 History of Present Illness HPI Narrative: PLEASE SEE THE DOWN TIME NOTE Related Data Home Medications Medication Instructions Recorded Confirmed bupropion HCl 150 mg PO QAM 06/21/20 07/04/20 clonidine HCl 0.1 mg PO BEDTIME 06/21/20 07/04/20 gabapentin 600 mg PO TID 06/21/20 07/04/20 quetiapine 200 mg PO BEDTIME 06/21/20 07/04/20 cefazolin in dextrose (iso-os) 100 ml IV Q8H 07/04/20 07/04/20 enoxaparin 60 mg SUBCUT Q12H 07/04/20 07/04/20 hydromorphone 4 mg PO Q4H PRN 07/04/20 07/04/20 lidocaine 1 patch TOPICAL DAILY 07/04/20 07/04/20 bupropion HCl 100 mg tablet,12 hr 100 mg PO BEDTIME 07/14/20 sustained-release clonidine (PF) 5,000 mcg/10 mL EPIDURAL 07/14/20 epidural solution dextroamphetamine-amphetamine 5 mg 5 mg PO DAILY 07/14/20 tablet gabapentin 100 mg capsule 100 mg PO BEDTIME 07/14/20 hydromorphone 2 mg tablet 2 mg PO Q6H 07/14/20 lorazepam 1 mg tablet 1 mg PO BEDTIME PRN 07/14/20 quetiapine 25 mg tablet 25 mg PO BEDTIME 07/14/20 Previous Rx's Medication Instructions Recorded amphetamine sulfate 20 mg PO BID@0800,1400 #10 tab 07/02/20 docusate sodium 100 mg PO BID #1 cap 07/02/20 ferrous sulfate 324 mg PO BIDWM #1 tab 07/02/20 lorazepam 1 mg PO Q6H PRN #30 tab 07/02/20 nicotine (polacrilex) 2 mg BUCCAL Q2H PRN #1 ea 07/02/20 omeprazole 20 mg PO BID@0630,1630 #1 cap 07/02/20 polyethylene glycol 3350 17 g PO DAILY #1 ea 07/02/20 naproxen 500 mg PO BID PRN #20 tab 12/12/20 prednisone 50 mg PO DAILY #4 tab 01/28/21 Allergies Allergy/AdvReac Type Severity Reaction Status Date / Time haloperidol [From HALDOL] AdvReac Intermediate LOCK JAW Verified 02/07/21 14:42 olanzapine [From ZYPREXA] AdvReac Unknown PT REPORTS Verified 02/07/21 14:42 FEELS LIKE I AM ON AN ACID TRIP PMFSH Past Medical History Medical History DVT (deep venous thrombosis) Endocarditis Eye contusion Hepatitis C IV drug abuse Left upper extremity deep vein thrombosis Severe sepsis Surgical History History of left knee surgery Social History Social History (System 02/07/21 @ 14:42 by Rosa Isela Khan) Alcohol intake: never Patient Tobacco Use Status: Current everyday Tobacco user Smoked in Last 30 Days: Yes Use of substances other than those prescribed or required for medical reasons: Yes Substance Use Type: Crack/Cocaine Advance Directives: No Advance Directives Information Provided: No Physical Exam Vital Signs: Vital Signs: Last Vital Signs Resp 16 02/28/21 06:00 Discharge Plan Discharge Prescriptions: No Action clonidine HCl 0.1 mg Tablet 0.1 mg PO BEDTIME RF: 0 gabapentin 600 mg Tablet 600 mg PO TID RF: 0 quetiapine 200 mg Tablet 200 mg PO BEDTIME RF: 0 bupropion HCl 150 mg Tablet Extended Release 24 Hr 150 mg PO QAM RF: 0 polyethylene glycol 3350 17 gram Powder In Packet 17 g PO DAILY Qty: 1 RF: 0 nicotine (polacrilex) 2 mg Gum 2 mg buccal Q2H PRN (Reason: Nicotine Cravings) Qty: 1 RF: 0 lorazepam 0.5 mg Tablet 1 mg PO Q6H PRN (Reason: Anxiety/Restlessness) Qty: 30 RF: 0 docusate sodium 100 mg Capsule 100 mg PO BID Qty: 1 RF: 0 omeprazole 20 mg Capsule,Delayed Release(Dr/Ec) 20 mg PO BID@0630,1630 Qty: 1 RF: 0 ferrous sulfate 324 mg (65 mg iron) Tablet,Delayed Release (Dr/Ec) 324 mg PO BIDWM Qty: 1 RF: 0 amphetamine sulfate 20 mg Tablet,Disintegrating 20 mg PO BID@0800,1400 Qty: 10 RF: 0 lidocaine 4 % Adhesive Patch,Medicated 1 patch TOPICAL DAILY RF: 0 hydromorphone 4 mg Tablet 4 mg PO Q4H PRN (Reason: Pain (Scale Score 7-10)) RF: 0 enoxaparin 60 mg/0.6 mL Syringe 60 mg SUBCUT Q12H RF: 0 cefazolin in dextrose (iso-os) 2 gram/100 mL Piggyback 100 ml IV Q8H RF: 0 naproxen 500 mg tablet 500 mg PO BID PRN (Reason: pain) Qty: 20 RF: 0 prednisone 50 mg tablet 50 mg PO DAILY Qty: 4 RF: 0
--- NOTE | 2021-02-28 06:29 | PC.NURSE ---
TRIAGE COMPLETED DURING DOWN TIME. PATIENT IS COMING TO THE ER TODAY FOR DEPRESSION AND SI. VAGUE PLAN I DON'T KNOW, ANY WAY I COULD STATING THAT HE DID NOT ACT IN ANYWAY TO HURT HIMSELF TONIGHT IF I DID THAN I WOULD NOT BE HERE . PATIENT SEEN BY PROVIDER DAVID. LAB SENT FOR KENDRICK. PLAN OF CARE FOR BHN CONSULT. PATIENT RESTING COMFORTABLY ON BED, NO DISTRESS NOTED.
[2021-02-28 06:35] LABS: Barbiturates, Urine Not Detected (Not Detect); Opiate Screen Urine Not Detected (Not Detect)
[2021-02-28 06:36] LABS: Amphetamine Screen Urine Not Detected (Not Detect); Benzodiazepines Screen Urine Not Detected (Not Detect); Cannabinoid Screen Urine POSITIVE (Not Detect); Cocaine Screen Urine POSITIVE (Not Detect); Phencyclidine Screen Urine Not Detected (Not Detect)
--- NOTE | 2021-02-28 07:23 | PC.NURSE ---
info sent to [facility]
[2021-02-28] MEDS: LORazepam 1 MG TABLET PO (09:59)
--- NOTE | 2021-02-28 10:00 | PC.NURSE ---
pt medicated with 1mg ativan for anxiety. pt was hitting his head on the desk. easily redirectable.
--- NOTE | 2021-02-28 10:12 | PC.NURSE ---
plan for td from care team to eval pt.
[2021-02-28] MEDS: Nicotine Polacrilex 2 MG GUM BUCCAL ×4 (11:56→21:00)
[2021-02-28] MEDS: buPROPion HCl XL 150 MG TAB.ER.24H PO (11:56)
[2021-02-28] MEDS: Lidocaine 4 % Patch ADH..PATCH 1 PATCH TRANSDERMA (11:56)
[2021-02-28] MEDS: cloNIDine HCL 0.1 MG TABLET PO ×2 (15:17→21:00)
[2021-02-28] MEDS: Gabapentin 600 MG TABLET PO ×2 (15:18→21:07)
[2021-02-28] MEDS: Amphetamine Mixed Salts 10 MG TABLET 30 MG PO (15:18)
--- NOTE | 2021-02-28 20:02 | PC.NURSE ---
pt requesting Ativan for increased anxiety. Pt also requesting Toradol for knee pain. Pt has PO Toradol pending in MAR with note that says PT OWN MEDS pt states he did not bring in any of his own meds. Pharmacy contacted regarding Toradol order. Per Pharmacy hospital does not stock PO Toradol and stated an alternative med or IM Toradol would need to be ordered. MLP ([place]) notified.
[2021-02-28] MEDS: QUEtiapine Fumarate 200 MG TABLET PO (20:59)
[2021-03-01 06:31] VITALS: BP 131/84; PULSE 72; RESP 16; TEMP 36.8; O2SAT 99
--- NOTE | 2021-03-01 07:21 | PC.NURSE ---
ATE BKFST. SLEEPING AT PRESENT
[2021-03-01 08:24] VITALS: BP 157/74; PULSE 89; RESP 18; TEMP 36.9; O2SAT 99
[2021-03-01] MEDS: buPROPion HCl XL 150 MG TAB.ER.24H PO (08:27)
[2021-03-01] MEDS: Gabapentin 600 MG TABLET PO ×3 (08:27→21:14)
[2021-03-01] MEDS: Lidocaine 4 % Patch ADH..PATCH 1 PATCH TRANSDERMA (08:27)
[2021-03-01] MEDS: QUEtiapine Fumarate 50 MG TABLET PO (08:27)
[2021-03-01 08:28] VITALS: BP 157/74; PULSE 89
[2021-03-01] MEDS: cloNIDine HCL 0.1 MG TABLET PO ×2 (08:28→21:14)
[2021-03-01] MEDS: Amphetamine Mixed Salts 10 MG TABLET 30 MG PO ×2 (08:35→14:14)
--- NOTE | 2021-03-01 09:08 | ECG_ITS ---
Test Reason : MED CLEARNCE Blood Pressure : / mmHG Vent. Rate : 081 BPM Atrial Rate : 081 BPM P-R Int : 130 ms QRS Dur : 086 ms QT Int : 384 ms P-R-T Axes : 028 011 023 degrees QTc Int : 446 ms Normal sinus rhythm Nonspecific T wave abnormality Abnormal ECG When compared with ECG of 11-JUN-2020 15:45, T wave inversion no longer evident in Lateral leads Referred By: Evita Tamayo Electronically Signed By:JONES HURST MD
[2021-03-01] MEDS: Nicotine Polacrilex 2 MG GUM BUCCAL (09:23)
[2021-03-01 10:12] LABS: MANUAL DIFF FLAG NO
[2021-03-01 10:13] LABS: Basophils Percent Auto 0.5 % (0-2); Eosinophils Absolute Auto 0.1 X10*3/uL (0.0-0.4); Eosinophils Percent Auto 0.9 % (0-4); Hematocrit 44.7 % (42-52); Hemoglobin 14.5 g/dl (14.0-18.0); Imm Gran Abs Auto 0.02 X10*3/uL (0.00-0.03); Imm Gran Pct Auto 0.3 % (0.0-0.4); Lymphocytes Absolute Auto 1.6 X10*3/uL (1.2-4.9); Lymphocytes Percent Auto 20.8 % (20-40); Mean Corpuscular HGB Conc 32.4 g/dl (31.0-36.0); Mean Corpuscular Hemoglobin 27.9 pg (27.0-33.0); Mean Corpuscular Volume 86.1 fL (80-98); Mean Platelet Volume 8.5 fL (9.4-12.4); Monocytes Absolute Auto 0.6 X10*3/uL (0.1-1.2); Monocytes Percent Auto 8.1 % (2-11); Neutrophils Absolute Auto 5.3 X10*3/uL (2.0-8.3); Neutrophils Percent Auto 69.4 % (45-73); Platelet Count 367 X10*3/uL (160-400); Red Blood Count 5.19 X10*6/uL (4.60-5.80); Red Cell Distribution Width 13.6 % (11.0-16.0); White Blood Count 7.6 X10*3/uL (4.8-10.8)
[2021-03-01 10:20] LABS: INTERNATIONAL NORM RATIO 0.9 (0.9-1.1); Prothrombin Time 11.2 SEC (10.8-13.0)
[2021-03-01 10:31] LABS: Ethanol < 10 mg/dL
[2021-03-01 10:35] LABS: Alanine Aminotransferase 8 U/L (0-40); Albumin Level 4.1 g/dL (3.5-5.0); Alkaline Phosphatase 111 U/L (39-117); Anion Gap 12 (12-20); Aspartate Amino Transferase 12 U/L (5-37); Bilirubin Total 0.2 mg/dL (0.0-1.0); Blood Urea Nitrogen 17 mg/dL (9-16); Calcium 9.9 mg/dL (8.4-10.2); Carbon Dioxide 23 mmol/L (22-29); Chloride 108 mmol/L (96-108); Creatinine Clr Calc Pharmacy 118.1; Estimated Glomerular Filt Rate > 60; Glucose Random 86 mg/dL (60-115); Potassium 3.6 mmol/L (3.3-5.1); Sodium 139 mmol/L (135-145); Total Protein 7.6 g/dL (6.5-8.0)
[2021-03-01 10:36] LABS: COVID-19 Test Negative (Negative); IDNOW Serial# 08D9AD1C
--- NOTE | 2021-03-01 10:52 | PC.NURSE ---
VISITED WITH SISTER. REMAINS A BEDSEARCH. CALM AND COOPERATIVE
[2021-03-01] MEDS: Nicotine Polacrilex 2 MG GUM 4 MG BUCCAL ×3 (12:20→19:18)
[2021-03-01] MEDS: LORazepam 1 MG TABLET PO (12:44)
[2021-03-01 18:35] VITALS: BP 139/77; PULSE 98; TEMP 36.8
[2021-03-01 18:40] VITALS: BMI 20.9
[2021-03-01] MEDS: LORazepam 1 MG TABLET 2 MG PO (19:18)
[2021-03-01 21:14] VITALS: BP 137/83; PULSE 107
[2021-03-01] MEDS: QUEtiapine Fumarate 200 MG TABLET PO (21:16)
[2021-03-02] MEDS: buPROPion HCl XL 150 MG TAB.ER.24H PO (08:34)
[2021-03-02] MEDS: Folic Acid 1 MG TABLET PO (08:35)
[2021-03-02] MEDS: Thiamine HCL 100 MG TABLET PO (08:35)
[2021-03-02] MEDS: Gabapentin 600 MG TABLET PO ×3 (08:35→21:09)
[2021-03-02 09:05] LABS: Estimated Average Glucose 105 mg/dL; Hemoglobin A1c % 5.3 %
[2021-03-02] MEDS: Amphetamine Mixed Salts 10 MG TABLET 30 MG PO ×2 (09:16→14:20)
[2021-03-02 09:18] LABS: Cholesterol 137 mg/dL; HDL Cholesterol 53 mg/dL; LDL Cholesterol Calculated 73 mg/dl; Magnesium 1.9 mg/dL (1.6-2.6); Triglycerides 58 mg/dL
[2021-03-02] MEDS: Nicotine Polacrilex 2 MG GUM 4 MG BUCCAL ×4 (09:41→21:12)
[2021-03-02 09:48] LABS: Folate 6.8 ng/mL (> or = 4.0); Vitamin B12 333 pg/mL (200-900)
[2021-03-02 09:56] VITALS: PULSE 101
[2021-03-02] MEDS: NaPROXEN 500 MG TABLET PO (10:01)
[2021-03-02] MEDS: LORazepam 1 MG TABLET PO ×2 (10:04→18:57)
[2021-03-02] MEDS: Lidocaine 4 % Patch ADH..PATCH 1 PATCH TRANSDERMA (10:07)
[2021-03-02] MEDS: Fluticasone Propionate 250 MCG BLST.W.DEV 2 PUFF INHALE (13:00)
[2021-03-02] MEDS: Albuterol Sulfate 90 MCG 8 GM INHALER 2 PUFF INHALE ×2 (13:03→18:50)
[2021-03-02 16:00] VITALS: PULSE 107
--- NOTE | 2021-03-02 16:24 | P.HPPS_ITS ---
HPI Chief Complaint: SI Sources of Information: patient interviewed, chart reviewed and crisis/core team assessment reviewed HPI Subjective Notes: Steward Warning and Conditional Voluntary Healthcare Proxy: No Guardianship: No Medical Problems Affecting Mental Status: No Narrative: 35 yo male, hx of opioid and cocaine use disorders, ADHD, Bipolar Disorder-depressed with psychotic features, presents with SI, increase in depressive sx and anxiety. Pt reports he is homeless after a recent dispute with his brother. He had a relapse on heroin approx 8 weeks ago and stopped med regime on 02/23. He reports having a Vivitrol injection on 02/22 and felt as if he was detoxing after the injection as he had used days prior and believes Fentanyl was still in his system. Pt asks for re-establishing medications and admission to [facility]. 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 Parents are . Mom in 2011 a few days before pt was relased from incarceration. Pt found his father in 2019. Substance History: Long hx-ETOH began age 14, Heroin at 26, IV use for the past 2 months. Hx Sect XXXV and >10 treatment interventions. DOC-Heroin, Cocaine. Vivitrol given 02/22/21. Trauma History: Found his father after his in 2019. Diagnostics Vital Signs (24Hr): Vital Signs - 24 hr 03/01/21 18:35 03/01/21 21:14 Temperature 98.3 F Pulse Rate 98 107 H Blood Pressure 139/77 137/83 Body Mass Index 20.9 Labs Results: 03/01/21 10:07 03/01/21 10:06 Labs: Laboratory Results - last 48 hr 03/01/21 03/01/21 03/01/21 10:06 10:06 10:06 WBC RBC Hgb Hct MCV MCH MCHC RDW Plt Count MPV Immature Gran % (Auto) Neut % (Auto) Lymph % (Auto) [place] % (Auto) Eos % (Auto) Baso % (Auto) Lymph # (Auto) [place] # (Auto) Eos # (Auto) Baso # (Auto) Abs Immat Gran (auto) Absolute Neuts (auto) Absolute Nucleated RBC Nucleated RBC % (auto) PT INR Sodium 139 Potassium 3.6 Chloride 108 Carbon Dioxide 23 Anion Gap 12 BUN 17 H D Creatinine 0.75 Estim Creat Clear Calc 118.1 Estimated GFR > 60 Random Glucose 86 Estimat Average Glucose Hemoglobin A1c % Calcium 9.9 D Magnesium Total Bilirubin 0.2 AST 12 D ALT 8 Alkaline Phosphatase 111 Total Protein 7.6 Albumin 4.1 D Triglycerides Cholesterol LDL Cholesterol, Calc HDL Cholesterol Vitamin B12 Folate TSH Free T4 Ethyl Alcohol < 10 COVID-19 (MARILYN) Negative COVID-19 Clin Com See Note 03/01/21 03/01/21 03/02/21 10:07 10:07 07:59 WBC 7.6 RBC 5.19 D Hgb 14.5 D Hct 44.7 D MCV 86.1 MCH 27.9 MCHC 32.4 RDW 13.6 Plt Count 367 D MPV 8.5 L Immature Gran % (Auto) 0.3 Neut % (Auto) 69.4 Lymph % (Auto) 20.8 [place] % (Auto) 8.1 Eos % (Auto) 0.9 Baso % (Auto) 0.5 Lymph # (Auto) 1.6 [place] # (Auto) 0.6 Eos # (Auto) 0.1 Baso # (Auto) 0.0 Abs Immat Gran (auto) 0.02 Absolute Neuts (auto) 5.3 Absolute Nucleated RBC 0.000 Nucleated RBC % (auto) 0.0 PT 11.2 INR 0.9 Sodium Potassium Chloride Carbon Dioxide Anion Gap BUN Creatinine Estim Creat Clear Calc Estimated GFR Random Glucose Estimat Average Glucose 105 Hemoglobin A1c % 5.3 Calcium Magnesium Total Bilirubin AST ALT Alkaline Phosphatase Total Protein Albumin Triglycerides Cholesterol LDL Cholesterol, Calc HDL Cholesterol Vitamin B12 Folate TSH Free T4 Ethyl Alcohol COVID-19 (MARILYN) COVID-19 Clin Com 03/02/21 03/02/21 07:59 07:59 WBC RBC Hgb Hct MCV MCH MCHC RDW Plt Count MPV Immature Gran % (Auto) Neut % (Auto) Lymph % (Auto) [place] % (Auto) Eos % (Auto) Baso % (Auto) Lymph # (Auto) [place] # (Auto) Eos # (Auto) Baso # (Auto) Abs Immat Gran (auto) Absolute Neuts (auto) Absolute Nucleated RBC Nucleated RBC % (auto) PT INR Sodium Potassium Chloride Carbon Dioxide Anion Gap BUN Creatinine Estim Creat Clear Calc Estimated GFR Random Glucose Estimat Average Glucose Hemoglobin A1c % Calcium Magnesium 1.9 Total Bilirubin AST ALT Alkaline Phosphatase Total Protein Albumin Triglycerides 58 Cholesterol 137 LDL Cholesterol, Calc 73 HDL Cholesterol 53 Vitamin B12 333 Folate 6.8 TSH 1.00 Free T4 1.00 Ethyl Alcohol COVID-19 (MARILYN) COVID-19 Clin Com Meds/Allergies Meds Home Medications Acetaminophen (Acetaminophen 325 Mg Tablet) 650 mg PO Q6H PRN PRN Reason: Headache/Pain Mild Scale (1-3) Al Hydroxide/Mg Hydroxide (Magnesium Hydrox/Alum Hydrox 30 Ml Oral.Susp) 30 ml PO Q6H PRN PRN Reason: Heartburn/Nausea Albuterol Sulfate (Albuterol Sulfate 90 Mcg 8 Gm Inhaler) 2 puff INHALE RQID [facility] Last Admin: 03/02/21 13:03 Dose: 2 puff Documented by: Amphetamine/Dextroamphetamine (Amphetamine Mixed Salts 10 Mg Tablet) 30 mg PO BID@08,14 [facility] Last Admin: 03/02/21 14:20 Dose: 30 mg Documented by: Bupropion HCl (Bupropion Hcl Xl 300 Mg Tab.Er.24h) 300 mg PO DAILY [facility] Clonidine HCl (Clonidine Hcl 0.1 Mg Tablet) 0.1 mg PO TID [facility]; Protocol Last Admin: 03/02/21 14:22 Dose: Not Given Documented by: Clonidine HCl (Clonidine Hcl 0.1 Mg Tablet) 0.1 mg PO TID PRN; Protocol PRN Reason: Opiate Withdrawal Fluticasone Propionate (Fluticasone Propionate 250 Mcg Blst.W.Dev) 2 puff INHALE RBID [facility] Last Admin: 03/02/21 13:00 Dose: 2 puff Documented by: Folic Acid (Folic Acid 1 Mg Tablet) 1 mg PO DAILY [facility] Stop: 03/05/21 08:59 Last Admin: 03/02/21 08:35 Dose: 1 mg Documented by: Gabapentin (Gabapentin 600 Mg Tablet) 600 mg PO TID [facility] Last Admin: 03/02/21 14:20 Dose: 600 mg Documented by: Hydroxyzine HCl (Hydroxyzine Hcl 25 Mg Tablet) 25 mg PO BEDTIME PRN PRN Reason: Anxiety Lidocaine (Lidocaine 4 % Patch Adh..Patch) 1 patch TRANSDERMA DAILY [facility]; Protocol Last Admin: 03/02/21 10:07 Dose: 1 patch Documented by: Lorazepam (Lorazepam 1 Mg Tablet) 1 mg PO Q4H PRN PRN Reason: Breakthrough alcohol withdrawa Stop: 03/05/21 18:51 Last Admin: 03/02/21 10:04 Dose: 1 mg Documented by: Magnesium Hydroxide (Milk Of Magnesia 30 Ml Oral.Susp) 30 ml PO DAILY PRN PRN Reason: Constipation Naproxen (Naproxen 500 Mg Tablet) 500 mg PO Q12H PRN PRN Reason: pain Last Admin: 03/02/21 10:01 Dose: 500 mg Documented by: Nicotine Polacrilex (Nicotine Polacrilex 2 Mg Gum) 4 mg BUCCAL Q2H PRN PRN Reason: Nicotine Cravings Last Admin: 03/02/21 13:02 Dose: 4 mg Documented by: Quetiapine Fumarate (Quetiapine Fumarate 50 Mg Tablet) 50 mg PO DAILY [facility] Last Admin: 03/02/21 09:17 Dose: Not Given Documented by: Quetiapine Fumarate (Quetiapine Fumarate 100 Mg Tablet) 100 mg PO BEDTIME ERNA Thiamine HCl (Thiamine Hcl 100 Mg Tablet) 100 mg PO DAILY ERNA Stop: 03/05/21 08:59 Last Admin: 03/02/21 08:35 Dose: 100 mg Documented by: Trazodone HCl (Trazodone Hcl 50 Mg Tablet) 50 mg PO BEDTIME PRN PRN Reason: Insomnia Allergies Allergies Allergy/AdvReac Type Severity Reaction Status Date / Time haloperidol [From HALDOL] AdvReac Intermediate LOCK JAW Verified 02/07/21 14:42 olanzapine [From ZYPREXA] AdvReac Unknown PT REPORTS Verified 02/07/21 14:42 FEELS LIKE I AM ON AN ACID TRIP Mental Status Exam Mental Status Exam Patient Appearance: Fatigued and Appropriate Patient Orientation: Person, Place, Time and Situation Level of Consciousness: Awake and Alert Patient Behavior: Appropriate, Talkative and Cooperative Mood Description: Labile Affect Description: Labile Patient Cognition Impaired: No Ability to Follow Directions: Good Speech Pattern: Spontaneous Speech Memory Description: Episodic Impaired Hallucinations: None Delusions: Not Present Thought Process: Distracted and Rumination Thought Content: positive for Perseveration and positive for Suicidal Ideation Depressive Symptoms: Increased Anxiety, Insomnia, Diff. Making Decisions, Increased Irritability, Feelings of Worthlessness, Hopelessness, Feelings of Guilt, Unhappiness, Increased Fatigue, Thoughts of /Suicide, Loss of Energy and Difficulty Concentrating Judgement: Fair Assessment & Plan Assessment & Plan (1) Opioid use disorder: Status: Acute Code(s): F11.99 - Opioid use, unspecified with unspecified opioid-induced disorder (2) ADHD: Status: Acute Code(s): F90.9 - Attention-deficit hyperactivity disorder, unspecified type (3) Mood disorder: Status: Acute Code(s): F39 - Unspecified mood [affective] disorder Assessment and Plan: 35 yo male presents with depression, irritability, SI. Off medications for appr ox 6 days. Hx of lability, substance use. Plan: Re-Establish regime Increase Wellbutrin to 300 mg daily Decrease Seroquel to 100 mg hs. Titrate as tolerated back to 200 mg hs. Collateral Contacts Pt is interested in [facility] admission upon discharge Patient educated on: therapeutic strategies Informed Consent: further education needed Reason for continued inpatient stay Substantial Risk for: harm to self, inability to function and rapid decompensation
[2021-03-02 18:50] VITALS: BP 152/94; PULSE 107; TEMP 37.1
[2021-03-02] MEDS: QUEtiapine Fumarate 100 MG TABLET PO (21:09)
[2021-03-02] MEDS: Loperamide HCl 2 MG CAPSULE 4 MG PO (21:09)
[2021-03-03 06:00] VITALS: BP 156/91; PULSE 98; RESP 16; TEMP 36.6; O2SAT 97
[2021-03-03 08:00] VITALS: PULSE 88
[2021-03-03] MEDS: QUEtiapine Fumarate 50 MG TABLET PO (08:49)
[2021-03-03] MEDS: Amphetamine Mixed Salts 10 MG TABLET 30 MG PO ×2 (08:51→14:05)
[2021-03-03] MEDS: Lidocaine 4 % Patch ADH..PATCH 1 PATCH TRANSDERMA (08:51)
[2021-03-03] MEDS: LORazepam 1 MG TABLET PO (08:53)
[2021-03-03] MEDS: Thiamine HCL 100 MG TABLET PO (08:55)
[2021-03-03] MEDS: Folic Acid 1 MG TABLET PO (08:55)
[2021-03-03] MEDS: buPROPion HCl XL 300 MG TAB.ER.24H PO (08:56)
[2021-03-03] MEDS: Gabapentin 600 MG TABLET PO ×3 (08:59→20:25)
--- NOTE | 2021-03-03 09:26 | HO.PSYCHPN ---
Subjective Subjective Date of Service: 03/03/21 Reason For Visit: SI Interim History: pt reports he's alright. denies any SI; says he continues to deal with anxiety, but does not want medication changes other than to to make seroquel and clonidine into prns. Pt shared that he struggles with emotional reactivity, getting easily angered by things, which he soon did after talking when his lunch tray had the wrong food; to this end however, pt did not want to talk about medication options but said he'd work through it on his own. pt did mention that he used to be on Gabapentin 800mg tid (currently on 600mg TID) but agrees to discuss with primary provider on friday Mental Status Exam Mental Status Exam Narrative: Patient Appearance: tank top, neatly groomed Patient Orientation: Person, Place, Time and Situation Level of Consciousness: Awake and Alert Patient Behavior: Appropriate, Talkative and Cooperative Mood Description: anxious, irritable Affect Description: Labile Patient Cognition Impaired: No Ability to Follow Directions: Good Speech Pattern: Spontaneous Speech Memory Description: Episodic Impaired Hallucinations: None Delusions: Not Present Thought Process: linear and goal oriented Thought Content: denies any SI or HI. Depressive Symptoms: Increased Anxiety, Insomnia, Diff. Making Decisions, Increased Irritability, Feelings of Worthlessness, Hopelessness, Feelings of Guilt, Unhappiness, Increased Fatigue, Thoughts of /Suicide, Loss of Energy and Difficulty Concentrating Judgement: Fair Diagnostics Vital Signs (24Hr): Vital Signs - 24 hr 03/02/21 18:50 03/03/21 06:00 Temperature 98.7 F 98 F Pulse Rate 107 H 98 Respiratory Rate 16 Blood Pressure 152/94 H 156/91 H Pulse Oximetry 97 Body Mass Index 20.9 Labs Results: 03/01/21 10:07 03/01/21 10:06 Labs: Laboratory Results - last 48 hr 03/01/21 03/01/21 03/01/21 10:06 10:06 10:06 WBC RBC Hgb Hct MCV MCH MCHC RDW Plt Count MPV Immature Gran % (Auto) Neut % (Auto) Lymph % (Auto) [place] % (Auto) Eos % (Auto) Baso % (Auto) Lymph # (Auto) [place] # (Auto) Eos # (Auto) Baso # (Auto) Abs Immat Gran (auto) Absolute Neuts (auto) Absolute Nucleated RBC Nucleated RBC % (auto) PT INR Sodium 139 Potassium 3.6 Chloride 108 Carbon Dioxide 23 Anion Gap 12 BUN 17 H D Creatinine 0.75 Estim Creat Clear Calc 118.1 Estimated GFR > 60 Random Glucose 86 Estimat Average Glucose Hemoglobin A1c % Calcium 9.9 D Magnesium Total Bilirubin 0.2 AST 12 D ALT 8 Alkaline Phosphatase 111 Total Protein 7.6 Albumin 4.1 D Triglycerides Cholesterol LDL Cholesterol, Calc HDL Cholesterol Vitamin B12 Folate TSH Free T4 Ethyl Alcohol < 10 COVID-19 ([facility]) Negative COVID-19 Clin Com See Note 03/01/21 03/01/21 03/02/21 10:07 10:07 07:59 WBC 7.6 RBC 5.19 D Hgb 14.5 D Hct 44.7 D MCV 86.1 MCH 27.9 MCHC 32.4 RDW 13.6 Plt Count 367 D MPV 8.5 L Immature Gran % (Auto) 0.3 Neut % (Auto) 69.4 Lymph % (Auto) 20.8 [place] % (Auto) 8.1 Eos % (Auto) 0.9 Baso % (Auto) 0.5 Lymph # (Auto) 1.6 [place] # (Auto) 0.6 Eos # (Auto) 0.1 Baso # (Auto) 0.0 Abs Immat Gran (auto) 0.02 Absolute Neuts (auto) 5.3 Absolute Nucleated RBC 0.000 Nucleated RBC % (auto) 0.0 PT 11.2 INR 0.9 Sodium Potassium Chloride Carbon Dioxide Anion Gap BUN Creatinine Estim Creat Clear Calc Estimated GFR Random Glucose Estimat Average Glucose 105 Hemoglobin A1c % 5.3 Calcium Magnesium Total Bilirubin AST ALT Alkaline Phosphatase Total Protein Albumin Triglycerides Cholesterol LDL Cholesterol, Calc HDL Cholesterol Vitamin B12 Folate TSH Free T4 Ethyl Alcohol COVID-19 (MARILYN) COVID-19 [place] 03/02/21 03/02/21 07:59 07:59 WBC RBC Hgb Hct MCV MCH MCHC RDW Plt Count MPV Immature Gran % (Auto) Neut % (Auto) Lymph % (Auto) [place] % (Auto) Eos % (Auto) Baso % (Auto) Lymph # (Auto) [place] # (Auto) Eos # (Auto) Baso # (Auto) Abs Immat Gran (auto) Absolute Neuts (auto) Absolute Nucleated RBC Nucleated RBC % (auto) PT INR Sodium Potassium Chloride Carbon Dioxide Anion Gap BUN Creatinine Estim Creat Clear Calc Estimated GFR Random Glucose Estimat Average Glucose Hemoglobin A1c % Calcium Magnesium 1.9 Total Bilirubin AST ALT Alkaline Phosphatase Total Protein Albumin Triglycerides 58 Cholesterol 137 LDL Cholesterol, Calc 73 HDL Cholesterol 53 Vitamin B12 333 Folate 6.8 TSH 1.00 Free T4 1.00 Ethyl Alcohol COVID-19 ([facility]ILY[facility]) COVID-19 Clin Com Medications Medications Current Medications Generic Name Dose Route Start Last Admin Trade Name Freq PRN Reason Stop Dose Admin Acetaminophen 650 mg 03/01/21 15:51 Acetaminophen 325 Mg Tablet PO Q6H PRN Headache/Pain Mild Scale (1-3) Al Hydroxide/Mg Hydroxide 30 ml 03/01/21 15:51 Magnesium Hydrox/Alum Hydrox 30 Ml Oral.Susp PO Q6H PRN Heartburn/Nausea Albuterol Sulfate 2 puff 03/01/21 17:00 03/03/21 08:56 Albuterol Sulfate 90 Mcg 8 Gm Inhaler INHALE Not Given RQID ERNA Amphetamine/Dextroamphetamine 30 mg 03/02/21 08:00 03/03/21 08:51 Amphetamine Mixed Salts 10 Mg Tablet PO 30 mg BID@08,14 ERNA Administration Bupropion HCl 300 mg 03/03/21 09:00 03/03/21 08:56 Bupropion Hcl Xl 300 Mg Tab.Er.24h PO 300 mg DAILY ERNA Administration Clonidine HCl 0.1 mg 02/28/21 15:00 03/03/21 08:58 Clonidine Hcl 0.1 Mg Tablet PO Not Given TID ERNA Protocol Clonidine HCl 0.1 mg 03/01/21 18:52 Clonidine Hcl 0.1 Mg Tablet PO TID PRN Opiate Withdrawal Protocol Fluticasone Propionate 2 puff 03/01/21 20:00 03/03/21 08:56 Fluticasone Propionate 250 Mcg Blst.W.Dev INHALE Not Given RBID ERNA Folic Acid 1 mg 03/02/21 09:00 03/03/21 08:55 Folic Acid 1 Mg Tablet PO 03/05/21 08:59 1 mg DAILY ERNA Administration Gabapentin 600 mg 02/28/21 15:00 03/03/21 08:59 Gabapentin 600 Mg Tablet PO 600 mg TID ERNA Administration Hydroxyzine HCl 25 mg 03/01/21 15:51 Hydroxyzine Hcl 25 Mg Tablet PO BEDTIME PRN Anxiety Lidocaine 1 patch 02/28/21 11:45 03/03/21 08:51 Lidocaine 4 % Patch Adh..Patch TRANSDERMA 1 patch DAILY ERNA Administration Protocol Loperamide HCl 2 mg 03/02/21 19:46 Loperamide Hcl 2 Mg Capsule PO Q4H PRN Diarrhea Lorazepam 1 mg 03/01/21 18:52 03/03/21 08:53 Lorazepam 1 Mg Tablet PO 03/05/21 18:51 1 mg Q4H PRN Administration Breakthrough alcohol withdrawa Magnesium Hydroxide 30 ml 03/01/21 15:51 Milk Of Magnesia 30 Ml Oral.Susp PO DAILY PRN Constipation Naproxen 500 mg 03/01/21 08:54 03/02/21 10:01 Naproxen 500 Mg Tablet PO 500 mg Q12H PRN Administration pain Nicotine Polacrilex 4 mg 03/01/21 12:16 03/02/21 21:12 Nicotine Polacrilex 2 Mg Gum BUCCAL 4 mg Q2H PRN Administration Nicotine Cravings Quetiapine Fumarate 50 mg 02/28/21 11:45 03/03/21 08:49 Quetiapine Fumarate 50 Mg Tablet PO 50 mg DAILY ERNA Administration Quetiapine Fumarate 100 mg 03/02/21 21:00 03/02/21 21:09 Quetiapine Fumarate 100 Mg Tablet PO 100 mg BEDTIME ERNA Administration Thiamine HCl 100 mg 03/02/21 09:00 03/03/21 08:55 Thiamine Hcl 100 Mg Tablet PO 03/05/21 08:59 100 mg DAILY RENA Administration Trazodone HCl 50 mg 03/01/21 15:51 Trazodone Hcl 50 Mg Tablet PO BEDTIME PRN Insomnia Allergies Allergies Allergy/AdvReac Type Severity Reaction Status Date / Time haloperidol [From HALDOL] AdvReac Intermediate LOCK JAW Verified 02/07/21 14:42 olanzapine [From ZYPREXA] AdvReac Unknown PT REPORTS Verified 02/07/21 14:42 FEELS LIKE I AM ON AN ACID TRIP Assessment & Plan Assessment & Plan (1) Opioid use disorder: Status: Acute Code(s): F11.99 - Opioid use, unspecified with unspecified opioid-induced disorder (2) ADHD: Status: Acute Code(s): F90.9 - Attention-deficit hyperactivity disorder, unspecified type (3) Mood disorder: Status: Acute Code(s): F39 - Unspecified mood [affective] disorder Assessment and Plan: 35 yo male presents with depression, irritability, SI. Off medications for approx 6 days. Hx of lability, substance use. Plan: Over weekend: -made daytime seroquel prn -made clonidine into a prn Re-Establish regime Increase Wellbutrin to 300 mg daily Decrease Seroquel to 100 mg hs. Titrate as tolerated back to 200 mg hs. Collateral Contacts Pt is interested in [facility] admission upon discharge Greater than 50% of the session was spent on counseling and/or coordination of care Reason for contiued inpatient stay Substantial Risk for: med/psych decompensation
[2021-03-03] MEDS: Albuterol Sulfate 90 MCG 8 GM INHALER 2 PUFF INHALE ×2 (12:53→17:37)
[2021-03-03 13:54] VITALS: BMI 21.9
[2021-03-03] MEDS: Nicotine Polacrilex 2 MG GUM 4 MG BUCCAL ×3 (14:00→19:06)
--- NOTE | 2021-03-03 15:53 | PM.IMCN ---
History of Present Illness Data of Consult Service Date: 03/03/21 Primary Care Provider: Raquel Gao MD HPI Reason for consult: dysuria 35M c/o dysuria, had sexual encounter with woman who's other partner reported testing positive for chlamydia. patient has no discharge, but does have burning. Review of Systems Review of Systems: Yes all other systems are reviewed and are negative PMFSH Medical History ADHD DVT (deep venous thrombosis) Endocarditis Eye contusion Hepatitis C IV drug abuse Left upper extremity deep vein thrombosis Mood disorder Severe sepsis Family history: reviewed and not pertinent Surgical History History of left knee surgery S/P left knee arthroscopy Social History Household Members: None Housing: Homeless Do you presently have visiting nurse or other home services: No Alcohol intake: never Patient Tobacco Use Status: Current everyday Tobacco user Tobacco use type: Cigarette Cigarette Packs Per Day: 1.5 Cigarettes Per Day: 30.0 Smoked in Last 30 Days: Yes e-Cigarette/Vaping Use: Never Used Patient Interested in Nicotine Replacement: Yes Patient Given Instructions on How to Stop Smoking: No Second Hand Smoke Exposure: Yes Use of substances other than those prescribed or required for medical reasons: Yes Substance Use Type: Crack/Cocaine, Heroin and Marijuana Substance Use Frequency: Chronic Longstanding Last Used Substance: Just Prior to Admission Currently Displaying Signs/Symptoms of Drug Intoxication Withdrawal: No Any prior treatment program specific to substance use: Yes Have you been hit, kicked, punched, or otherwise hurt by someone within the past year? If so, by whom?: No Do you feel safe in your current relationship?: No Current Relationship Is there a partner from a previous relationship who is making you feel unsafe now?: No Are you made to feel afraid or neglected: No Spiritual Healthcare Practices: none noted Adventist Healthcare Practices: none noted Cultural Healthcare Practices: none noted Advance Directives: No Advance Directives Information Provided: No Healthcare Proxy: No Guardian: No Do you have thoughts of harming others: None Do you have a plan to hurt others: No Plan Recently lost weight without trying: Yes How much weight loss: 34pounds or more Eating poorly because of decreased appetite: Yes Nutrition screen score: 7 Nutrition Risks: No Nutritional Risk Poor oral hygiene: No service: No Sexual orientation: Straight/Heterosexual Meds Allergies Allergy/AdvReac Type Severity Reaction Status Date / Time haloperidol [From HALDOL] AdvReac Intermediate LOCK JAW Verified 02/07/21 14:42 olanzapine [From ZYPREXA] AdvReac Unknown PT REPORTS Verified 02/07/21 14:42 FEELS LIKE I AM ON AN ACID TRIP Active Medications: Current Medications Generic Name Dose Route Start Last Admin Trade Name Freq PRN Reason Stop Dose Admin Acetaminophen 650 mg 03/01/21 15:51 Acetaminophen 325 Mg Tablet PO Q6H PRN Headache/Pain Mild Scale (1-3) Al Hydroxide/Mg Hydroxide 30 ml 03/01/21 15:51 Magnesium Hydrox/Alum Hydrox 30 Ml Oral.Susp PO Q6H PRN Heartburn/Nausea Albuterol Sulfate 2 puff 03/01/21 17:00 03/03/21 12:53 Albuterol Sulfate 90 Mcg 8 Gm Inhaler INHALE 2 puff RQID ERNA Administration Amphetamine/Dextroamphetamine 30 mg 03/02/21 08:00 03/03/21 14:05 Amphetamine Mixed Salts 10 Mg Tablet PO 30 mg BID@08,14 ERNA Administration Bupropion HCl 300 mg 03/03/21 09:00 03/03/21 08:56 Bupropion Hcl Xl 300 Mg Tab.Er.24h PO 300 mg DAILY ERNA Administration Clonidine HCl 0.1 mg 03/03/21 09:35 Clonidine Hcl 0.1 Mg Tablet PO TID PRN mild anxiety Protocol Fluticasone Propionate 2 puff 03/01/21 20:00 03/03/21 08:56 Fluticasone Propionate 250 Mcg Blst.W.Dev INHALE Not Given RBID ERNA Folic Acid 1 mg 03/02/21 09:00 03/03/21 08:55 Folic Acid 1 Mg Tablet PO 03/05/21 08:59 1 mg DAILY ERNA Administration Gabapentin 600 mg 02/28/21 15:00 03/03/21 14:05 Gabapentin 600 Mg Tablet PO 600 mg TID ERNA Administration Hydroxyzine HCl 25 mg 03/01/21 15:51 Hydroxyzine Hcl 25 Mg Tablet PO BEDTIME PRN Anxiety Lidocaine 1 patch 02/28/21 11:45 03/03/21 08:51 Lidocaine 4 % Patch Adh..Patch TRANSDERMA 1 patch DAILY ERNA Administration Protocol Loperamide HCl 2 mg 03/02/21 19:46 Loperamide Hcl 2 Mg Capsule PO Q4H PRN Diarrhea Magnesium Hydroxide 30 ml 03/01/21 15:51 Milk Of Magnesia 30 Ml Oral.Susp PO DAILY PRN Constipation Nicotine Polacrilex 4 mg 03/01/21 12:16 03/03/21 14:00 Nicotine Polacrilex 2 Mg Gum BUCCAL 4 mg Q2H PRN Administration Nicotine Cravings Quetiapine Fumarate 100 mg 03/02/21 21:00 03/02/21 21:09 Quetiapine Fumarate 100 Mg Tablet PO 100 mg BEDTIME ERNA Administration Thiamine HCl 100 mg 03/02/21 09:00 03/03/21 08:55 Thiamine Hcl 100 Mg Tablet PO 03/05/21 08:59 100 mg DAILY ERNA Administration Trazodone HCl 50 mg 03/01/21 15:51 Trazodone Hcl 50 Mg Tablet PO BEDTIME PRN Insomnia Home Medications Medication Instructions Recorded Confirmed Last Taken Type bupropion HCl 150 mg PO QAM 06/21/20 02/28/21 Unknown History clonidine HCl 0.1 mg PO TID 06/21/20 02/28/21 Unknown History gabapentin 600 mg PO TID 06/21/20 02/28/21 Unknown History quetiapine 200 mg PO BEDTIME 06/21/20 02/28/21 Unknown History lidocaine 1 patch TOPICAL DAILY 07/04/20 02/28/21 Unknown History lorazepam 1 mg tablet 1 mg PO Q6H PRN 07/14/20 02/28/21 Unknown History dextroamphetamine-amphetamine 30 mg PO BID@08,14 02/28/21 02/28/21 Unknown History ketorolac 10 mg PO TID PRN 02/28/21 02/28/21 Unknown History quetiapine 1 tab PO DAILY 02/28/21 02/28/21 Unknown History albuterol sulfate [ProAir HFA] 2 puff INHALATION QID 03/01/21 03/01/21 Unknown History fluticasone propionate [Flovent 2 puff INHALATION BID 03/01/21 03/01/21 Unknown History HFA] Physical Exam Vital Signs and Narrative: Vital Signs: Last Vital Signs Temp 98 F 03/03/21 06:00 Pulse 98 03/03/21 06:00 Resp 16 03/03/21 06:00 BP 156/91 H 03/03/21 06:00 Pulse Ox 97 03/03/21 06:00 Body Mass Index 21.9 General: AO X 3, no acute distress Resp: CTA bilateral CVS: S1,S2,RRR GI: soft, non tender, non distended Neuro: motor grossly intact Psych: appropriate affect Results Labs CBC and Chem 7: 03/01/21 10:07 03/01/21 10:06 Assessment and Plan (1) Dysuria: Status: Acute 35M concerned about chlamydia exposure dysuria with chlamydia exposure check urine GC and chlamydia urine PCR
[2021-03-03 16:00] VITALS: PULSE 93
[2021-03-03 16:30] VITALS: BP 144/73; PULSE 93; TEMP 37.1
[2021-03-03] MEDS: Ketorolac Tromethamine 30 MG/ML VIAL IM (16:42)
[2021-03-03] MEDS: hydrOXYzine HCL 25 MG TABLET PO (19:06)
[2021-03-03] MEDS: QUEtiapine Fumarate 100 MG TABLET PO (20:25)
[2021-03-04 06:10] VITALS: BP 138/74; PULSE 85; RESP 18; TEMP 36.6; O2SAT 98
[2021-03-04 08:00] VITALS: PULSE 85
[2021-03-04] MEDS: Amphetamine Mixed Salts 10 MG TABLET 30 MG PO ×2 (08:12→14:56)
[2021-03-04] MEDS: Nicotine Polacrilex 2 MG GUM 4 MG BUCCAL ×6 (08:12→20:32)
[2021-03-04] MEDS: Folic Acid 1 MG TABLET PO (08:12)
[2021-03-04] MEDS: buPROPion HCl XL 300 MG TAB.ER.24H PO (08:12)
[2021-03-04] MEDS: Lidocaine 4 % Patch ADH..PATCH 1 PATCH TRANSDERMA (08:14)
[2021-03-04] MEDS: Albuterol Sulfate 90 MCG 8 GM INHALER 2 PUFF INHALE ×2 (08:34→12:52)
[2021-03-04] MEDS: Gabapentin 600 MG TABLET PO ×3 (08:35→20:31)
[2021-03-04] MEDS: Thiamine HCL 100 MG TABLET PO (08:35)
--- NOTE | 2021-03-04 10:09 | P.PNPSI_ITS ---
Subjective Subjective Date of Service: 03/04/21 Reason For Visit: SI Interim History: says grace pierre reports depression and anxiety have mostly resolved and that he's back on track. denies SI pt reports that his left knee is hurting from chronic knee pain and ticket writer gave dose of toradol; will repeat today at patients request. Pt says he'll follow up with PCP. reports sleeping good Mental Status Exam Mental Status Exam Narrative: Patient Appearance: tank top, neatly groomed Patient Orientation: Person, Place, Time and Situation Level of Consciousness: Awake and Alert Patient Behavior: Appropriate, Talkative and Cooperative Mood Description: anxious, irritable Affect Description: Labile Patient Cognition Impaired: No Ability to Follow Directions: Good Speech Pattern: Spontaneous Speech Memory Description: Episodic Impaired Hallucinations: None Delusions: Not Present Thought Process: linear and goal oriented Thought Content: denies any SI or HI. Judgement: Fair Diagnostics Vital Signs (24Hr): Vital Signs - 24 hr 03/03/21 16:30 03/04/21 06:10 Temperature 98.7 F 98 F Pulse Rate 93 85 Respiratory Rate 18 Blood Pressure 144/73 H 138/74 Pulse Oximetry 98 Body Mass Index 21.9 Labs Results: 03/01/21 10:07 03/01/21 10:06 Medications Medications Current Medications Generic Name Dose Route Start Last Admin Trade Name Juanjo PRN Reason Stop Dose Admin Acetaminophen 650 mg 03/01/21 15:51 Acetaminophen 325 Mg Tablet PO Q6H PRN Headache/Pain Mild Scale (1-3) Al Hydroxide/Mg Hydroxide 30 ml 03/01/21 15:51 Magnesium Hydrox/Alum Hydrox 30 Ml Oral.Susp PO Q6H PRN Heartburn/Nausea Albuterol Sulfate 2 puff 03/01/21 17:00 03/04/21 08:34 Albuterol Sulfate 90 Mcg 8 Gm Inhaler INHALE 2 puff RQID ERNA Administration Amphetamine/Dextroamphetamine 30 mg 03/02/21 08:00 03/04/21 08:12 Amphetamine Mixed Salts 10 Mg Tablet PO 30 mg BID@08,14 ERNA Administration Bupropion HCl 300 mg 03/03/21 09:00 03/04/21 08:12 Bupropion Hcl Xl 300 Mg Tab.Er.24h PO 300 mg DAILY ERNA Administration Clonidine HCl 0.1 mg 03/03/21 09:35 Clonidine Hcl 0.1 Mg Tablet PO TID PRN mild anxiety Protocol Fluticasone Propionate 2 puff 03/01/21 20:00 03/04/21 08:34 Fluticasone Propionate 250 Mcg Blst.W.Dev INHALE Not Given RBID ERNA Folic Acid 1 mg 03/02/21 09:00 03/04/21 08:12 Folic Acid 1 Mg Tablet PO 03/05/21 08:59 1 mg DAILY ERNA Administration Gabapentin 600 mg 02/28/21 15:00 03/04/21 08:35 Gabapentin 600 Mg Tablet PO 600 mg TID ERNA Administration Hydroxyzine HCl 25 mg 03/01/21 15:51 03/03/21 19:06 Hydroxyzine Hcl 25 Mg Tablet PO 25 mg BEDTIME PRN Administration Anxiety Lidocaine 1 patch 02/28/21 11:45 03/04/21 08:14 Lidocaine 4 % Patch Adh..Patch TRANSDERMA 1 patch DAILY ERNA Administration Protocol Loperamide HCl 2 mg 03/02/21 19:46 Loperamide Hcl 2 Mg Capsule PO Q4H PRN Diarrhea Magnesium Hydroxide 30 ml 03/01/21 15:51 Milk Of Magnesia 30 Ml Oral.Susp PO DAILY PRN Constipation Multi-Ingred Cream/Lotion/Oil/Oint 1 appl 03/03/21 23:25 Mineral Oil/Petrolatum,White 106 Gm Tube TOPICAL TID PRN dry skin Nicotine Polacrilex 4 mg 03/01/21 12:16 03/04/21 08:12 Nicotine Polacrilex 2 Mg Gum BUCCAL 4 mg Q2H PRN Administration Nicotine Cravings Quetiapine Fumarate 100 mg 03/02/21 21:00 03/03/21 20:25 Quetiapine Fumarate 100 Mg Tablet PO 100 mg BEDTIME ERNA Administration Thiamine HCl 100 mg 03/02/21 09:00 03/04/21 08:35 Thiamine Hcl 100 Mg Tablet PO 03/05/21 08:59 100 mg DAILY ERNA Administration Trazodone HCl 50 mg 03/01/21 15:51 Trazodone Hcl 50 Mg Tablet PO BEDTIME PRN Insomnia Allergies Allergies Allergy/AdvReac Type Severity Reaction Status Date / Time haloperidol [From HALDOL] AdvReac Intermediate LOCK JAW Verified 02/07/21 14:42 olanzapine [From ZYPREXA] AdvReac Unknown PT REPORTS Verified 02/07/21 14:42 FEELS LIKE I AM ON AN ACID TRIP Assessment & Plan Assessment & Plan (1) Opioid use disorder: Status: Acute Code(s): F11.99 - Opioid use, unspecified with unspecified opioid-induced disorder (2) ADHD: Status: Acute Code(s): F90.9 - Attention-deficit hyperactivity disorder, unspecified type (3) Mood disorder: Status: Acute Code(s): F39 - Unspecified mood [affective] disorder Assessment and Plan: 35 yo male presents with depression, irritability, SI. Off medications for approx 6 days. Hx of lability, substance use. Plan: Over weekend: -made daytime seroquel prn -made clonidine into a prn -reports depression/si resolved -wants Gabapentin increased to home dose to 800mg TID (currently at 600mg); defer to primary team Re-Establish regime Increased Wellbutrin to 300 mg daily Decrease Seroquel to 100 mg hs. Titrate as tolerated back to 200 mg hs. Collateral Contacts Pt is interested in [facility] admission upon discharge Greater than 50% of the session was spent on counseling and/or coordination of care Reason for contiued inpatient stay Substantial Risk for: stable for discharge
[2021-03-04 13:21] LABS: CT PCR NOT DETECTED (Not Detect.); NG PCR NOT DETECTED (Not Detect.)
[2021-03-04] MEDS: Ketorolac Tromethamine 30 MG/ML VIAL IM (16:06)
[2021-03-04 16:10] VITALS: BP 141/84; PULSE 98; TEMP 36.6
[2021-03-04] MEDS: Loperamide HCl 2 MG CAPSULE PO (16:22)
[2021-03-04] MEDS: hydrOXYzine HCL 25 MG TABLET PO (19:29)
[2021-03-04] MEDS: QUEtiapine Fumarate 100 MG TABLET PO (20:31)
[2021-03-05 06:00] VITALS: BP 128/72; PULSE 79; RESP 18; TEMP 36.6; O2SAT 98
[2021-03-05] MEDS: Gabapentin 600 MG TABLET PO (09:09)
[2021-03-05] MEDS: buPROPion HCl XL 300 MG TAB.ER.24H PO (09:09)
[2021-03-05] MEDS: Amphetamine Mixed Salts 10 MG TABLET 30 MG PO ×2 (09:09→14:11)
[2021-03-05] MEDS: Lidocaine 4 % Patch ADH..PATCH 1 PATCH TRANSDERMA (09:24)
[2021-03-05] MEDS: Nicotine Polacrilex 2 MG GUM 4 MG BUCCAL ×4 (09:36→22:01)
[2021-03-05] MEDS: Gabapentin 400 MG CAPSULE 800 MG PO ×2 (14:11→21:57)
[2021-03-05] MEDS: hydrOXYzine HCL 25 MG TABLET PO ×2 (14:11→21:57)
--- NOTE | 2021-03-05 14:35 | MHC.RECOVRN ---
35 year old male presented to [facility] ED on 02/28 due to depression and SI with vague plan. Pt subsequently admitted to .? T/w met with pt in 508 after consult placed to Addiction Medicine to discuss methadone treatment. Pt reports receiving Vivitrol on 02/22 after having used opiates on 02/21. Pt states within 15 minutes or so I felt awful. Chills, restless legs. It made me depressed. Since pt was feeling withdrawal?symptoms, pt used 1 bundle heroin, IV, as well as cocaine, IV, on 02/22. Pt reports current withdrawal symptoms, including hot/cold and waking up in the morning drenched in sweat. Pt would like to transition to methadone, however, pt is aware that Vivitrol works as an opioid gabe. Pt reports withdrawal symptoms have improved since the first few days after receiving the injection.? Pt reports that while at [facility], Ativan has helped symptoms but it is no longer being prescribed.?Pt does have clonidine and hydroxyzine ordered prn.? Pt is looking to be placed at the [facility] after dc from . Pt reports calling this morning and leaving a message with Selina, however, could not provide return call information.? Case discussed with Daphney Mcgovern APRN, as well as Liat Rinaldi NP.?
--- NOTE | 2021-03-05 16:22 | PM.EVENT ---
Event Note Date of Service: 03/05/21 Event Note: Discussed case with provider, Leonor Crook. Made the following suggestions: If patient is asking for methadone, could do either the following: Check recent ECG for QTC. The Vivitrol was administered approximately 10 days ago. It will continue to cause an opioid blockade for at least 10 more days. The concern is Would need to overcome the blockade, which would require daily monitoring. One option would be to give a taper of methadone, such as 30mg day 1, 20mg day 2, and 10mg day 3. This would offer at least some relief of ongoing withdrawal symptoms. Another option would be to initiate methadone at a low dose, such as 30mg, and continue daily. Once he is outpatient and connected with a clinic, they could continue to titrate up or down the methadone as needed, as the effects of Vivitrol wane down. Thanks, Liat Harrell, [employer]
--- NOTE | 2021-03-05 16:57 | P.PNPSI_ITS ---
Subjective Subjective Date of Service: 03/05/21 Reason For Visit: SI Subjective Notes: Conditional Voluntary Healthcare Proxy: No Guardianship: No Medical Problems Affecting Mental Status: No Interim History: Pt reporting knee pain-received Toradol IM x 2 over the weekend (recommendation is no more that 5 doses/5 days). Gabapentin increase to 800 mg tid as previously taken, seroquel decreased, cloniding is prn. Addiction consult completed and appreciated. Pt wanting to return to Methadone. Recommendations are for repeat EKG, pt has 10 days of Vivitrol efficacy to complete and suggestion is for [facility] to begin dosing as pt may need loading then tapering to work with Vivitrol washout. Pt continues to look for CSS, hoping for admit to [facility]. Believes medications are back on track. Denies SI,HI. No sx psychosis, Depressive sx -12/30. Discussed conflict with brother and broth er's use of opiates. Pt wishing brother would enter into treatment with him. Medication Compliance: Yes Side effects from medications: No Attending Groups: Yes Review of Systems Musculoskeletal: Reports other (knee pain) Psychiatric: Reports anxiety, Reports depression, Reports irritability and Reports suicidal ideation (denies) Mental Status Exam Mental Status Exam Patient Appearance: Appropriate Patient Orientation: Person, Place, Time and Situation Level of Consciousness: Awake, Appropriate and Alert Patient Behavior: Appropriate, Talkative and Cooperative Mood Description: Constricted Affect Description: Constricted Patient Cognition Impaired: No Ability to Follow Directions: Good Speech Pattern: Clear, Appropriate, Spontaneous Speech and Coherent Memory Description: Episodic Impaired Hallucinations: None Delusions: Not Present Thought Process: Intact and Goal Oriented Thought Content: positive for Intact and positive for Logical Depressive Symptoms: Increased Anxiety and Thoughts of /Suicide (denies) Judgement: Fair Diagnostics Vital Signs (24Hr): Vital Signs - 24 hr 03/05/21 06:00 Temperature 97.8 F Pulse Rate 79 Respiratory Rate 18 Blood Pressure 128/72 Pulse Oximetry 98 Body Mass Index 21.9 Labs Results: 03/01/21 10:07 03/01/21 10:06 Labs: Laboratory Results - last 48 hr 03/03/21 20:30 Chlam trachomat DNA PCR NOT DETECTED N.gonorrhoeae DNA (PCR) NOT DETECTED Medications Medications Current Medications Generic Name Dose Route Start Last Admin Trade Name Freq PRN Reason Stop Dose Admin Acetaminophen 650 mg 03/01/21 15:51 Acetaminophen 325 Mg Tablet PO Q6H PRN Headache/Pain Mild Scale (1-3) Al Hydroxide/Mg Hydroxide 30 ml 03/01/21 15:51 Magnesium Hydrox/Alum Hydrox 30 Ml Oral.Susp PO Q6H PRN Heartburn/Nausea Albuterol Sulfate 2 puff 03/01/21 17:00 03/05/21 12:24 Albuterol Sulfate 90 Mcg 8 Gm Inhaler INHALE Not Given RQID [facility] Amphetamine/Dextroamphetamine 30 mg 03/02/21 08:00 03/05/21 14:11 Amphetamine Mixed Salts 10 Mg Tablet PO 30 mg BID@08,14 ERNA Administration Bupropion HCl 300 mg 03/03/21 09:00 03/05/21 09:09 Bupropion Hcl Xl 300 Mg Tab.Er.24h PO 300 mg DAILY ERNA Administration Clonidine HCl 0.1 mg 03/03/21 09:35 Clonidine Hcl 0.1 Mg Tablet PO TID PRN mild anxiety Protocol Fluticasone Propionate 2 puff 03/01/21 20:00 03/05/21 09:08 Fluticasone Propionate 250 Mcg Blst.W.Dev INHALE Not Given RBID [facility] Gabapentin 800 mg 03/05/21 15:00 03/05/21 14:11 Gabapentin 400 Mg Capsule PO 800 mg TID [facility] Administration Hydroxyzine HCl 25 mg 03/05/21 11:31 03/05/21 14:11 Hydroxyzine Hcl 25 Mg Tablet PO 25 mg BID PRN Administration Anxiety Lidocaine 1 patch 02/28/21 11:45 03/05/21 09:24 Lidocaine 4 % Patch Adh..Patch TRANSDERMA 1 patch DAILY ERNA Administration Protocol Loperamide HCl 2 mg 03/02/21 19:46 03/04/21 16:22 Loperamide Hcl 2 Mg Capsule PO 2 mg Q4H PRN Administration Diarrhea Magnesium Hydroxide 30 ml 03/01/21 15:51 Milk Of Magnesia 30 Ml Oral.Susp PO DAILY PRN Constipation Multi-Ingred Cream/Lotion/Oil/Oint 1 appl 03/03/21 23:25 Mineral Oil/Petrolatum,White 106 Gm Tube TOPICAL TID PRN dry skin Nicotine Polacrilex 4 mg 03/01/21 12:16 03/05/21 14:14 Nicotine Polacrilex 2 Mg Gum BUCCAL 4 mg Q2H PRN Administration Nicotine Cravings Quetiapine Fumarate 100 mg 03/02/21 21:00 03/04/21 20:31 Quetiapine Fumarate 100 Mg Tablet PO 100 mg BEDTIME ERNA Administration Trazodone HCl 50 mg 03/01/21 15:51 Trazodone Hcl 50 Mg Tablet PO BEDTIME PRN Insomnia Allergies Allergies Allergy/AdvReac Type Severity Reaction Status Date / Time haloperidol [From HALDOL] AdvReac Intermediate LOCK JAW Verified 02/07/21 14:42 olanzapine [From ZYPREXA] AdvReac Unknown PT REPORTS Verified 02/07/21 14:42 FEELS LIKE I AM ON AN ACID TRIP Assessment & Plan Assessment & Plan (1) Opioid use disorder: Status: Acute Code(s): F11.99 - Opioid use, unspecified with unspecified opioid-induced disorder (2) ADHD: Status: Acute Code(s): F90.9 - Attention-deficit hyperactivity disorder, unspecified type (3) Mood disorder: Status: Acute Code(s): F39 - Unspecified mood [affective] disorder Assessment and Plan: 35 yo male presents with depression, irritability, SI. Off medications for approx 6 days. Hx of lability, substance use. Plan: -reports depression/si resolved Gabapentin increased to home dose to 800mg TID (currently at 600mg); defer to primary team Pt is interested in [facility] admission upon discharge Addiction consult completed. Pt would like to return to Methadone. Has 10 days of Vivitrol left. Greater than 50% of the session was spent on counseling and/or coordination of care Reason for contiued inpatient stay Substantial Risk for: harm to self, inability to function, rapid decompensation and med/psych decompensation
[2021-03-05 17:00] VITALS: BP 135/75; PULSE 98; TEMP 36.8
[2021-03-05] MEDS: QUEtiapine Fumarate 100 MG TABLET PO (21:57)
[2021-03-06 06:00] VITALS: BP 122/72; PULSE 80; RESP 18; TEMP 36.3; O2SAT 98
[2021-03-06] MEDS: Mineral Oil/Petrolatum,White 106 GM Tube 1 APPL TOPICAL (09:24)
[2021-03-06] MEDS: Gabapentin 400 MG CAPSULE 800 MG PO ×2 (09:24→14:37)
[2021-03-06] MEDS: buPROPion HCl XL 300 MG TAB.ER.24H PO (09:24)
[2021-03-06] MEDS: Lidocaine 4 % Patch ADH..PATCH 1 PATCH TRANSDERMA (09:25)
[2021-03-06] MEDS: Amphetamine Mixed Salts 10 MG TABLET 30 MG PO ×2 (09:29→14:36)
[2021-03-06] MEDS: hydrOXYzine HCL 25 MG TABLET PO (11:05)
[2021-03-06] MEDS: Nicotine Polacrilex 2 MG GUM 4 MG BUCCAL ×2 (11:05→16:26)
--- NOTE | 2021-03-06 19:09 | HO.PSYCHPN ---
Subjective Subjective Date of Service: 03/06/21 Reason For Visit: SI Subjective Notes: 3 Day Healthcare Proxy: No Guardianship: No Medical Problems Affecting Mental Status: No Interim History: Pt is tolerating medications and feels prepared for discharge. Will meet with [facility] and Dr. Gao on 03/08. Three day notice to Medication Compliance: Yes Side effects from medications: No Attending Groups: Intermittent Review of Systems Psychiatric: Reports no additional psychiatric complaints Mental Status Exam Mental Status Exam Patient Appearance: Appropriate Patient Orientation: Person, Place, Time and Situation Level of Consciousness: Alert Patient Behavior: Appropriate Mood Description: Constricted Affect Description: Constricted Patient Cognition Impaired: No Ability to Follow Directions: Good Speech Pattern: Spontaneous Speech Memory Description: Intact Hallucinations: None Delusions: Not Present Thought Process: Intact Thought Content: positive for Intact Judgement: Good Diagnostics Vital Signs (24Hr): Vital Signs - 24 hr 03/06/21 06:00 Temperature 97.4 F Pulse Rate 80 Respiratory Rate 18 Blood Pressure 122/72 Pulse Oximetry 98 Body Mass Index 21.9 Labs Results: 03/01/21 10:07 03/01/21 10:06 Medications Allergies Allergies Allergy/AdvReac Type Severity Reaction Status Date / Time haloperidol [From HALDOL] AdvReac Intermediate LOCK JAW Verified 02/07/21 14:42 olanzapine [From ZYPREXA] AdvReac Unknown PT REPORTS Verified 02/07/21 14:42 FEELS LIKE I AM ON AN ACID TRIP Assessment & Plan Assessment & Plan (1) Opioid use disorder: Status: Acute Code(s): F11.99 - Opioid use, unspecified with unspecified opioid-induced disorder (2) ADHD: Status: Acute Code(s): F90.9 - Attention-deficit hyperactivity disorder, unspecified type (3) Mood disorder: Status: Acute Code(s): F39 - Unspecified mood [affective] disorder Assessment and Plan: 35 yo male presents with depression, irritability, SI. Off medications for approx 6 days. Hx of lability, substance use. Plan: -reports depression/si resolved. Discharge today. Gabapentin increased to home dose to 800mg TID (currently at 600mg); defer to primary team. Addiction consult completed. Pt would like to return to Methadone. Has 10 days of Vivitrol left. He will discuss this with Dr. Gao in their appt on 03/08/21. Greater than 50% of the session was spent on counseling and/or coordination of care Reason for contiued inpatient stay Substantial Risk for: stable for discharge
--- NOTE | 2021-03-07 08:46 | P.DS_ITS ---
DS: Providers Provider Date of Service: 03/06/21 <Kaylynn Crook TRAVELING CRANE OPERATOR - Last Filed: 03/26/21 09:13> Date of admission: 03/01/21 15:48 <Kaylynn Crook TRAVELING CRANE OPERATOR - Last Filed: 03/26/21 09:13> Date of discharge: 03/06/21 <Kaylynn Crook, TRAVELING CRANE OPERATOR - Last Filed: 03/26/21 09:13> Primary care physician: Raquel Gao MD <Kaylynn Crook, TRAVELING CRANE OPERATOR - Last Filed: 03/26/21 09:13> Admitting clinician: Kaylynn Croko <Kalyynn Crook, TRAVELING CRANE OPERATOR - Last Filed: 03/26/21 09:13> Attending physician on admission: Jeff Brewer <Kaylynn Crook, TRAVELING CRANE OPERATOR - Last Filed: 03/26/21 09:13> Consults: 03/02/21 18:03 Consult to Hospitalist Routine Consulting Provider: Hospitalist Reason For Exam: STD evaluation 03/05/21 12:23 Addiction Medicine Routine Consulting Provider: Daphney Mcgovern Reason for consultation: Pt would like to discuss methadone treatment. Has provider been notified: Yes <Kaylynn Crook, TRAVELING CRANE OPERATOR - Last Filed: 03/26/21 09:13> Attending physician on discharge: Jeff Brewer <Kaylynn Crook, TRAVELING CRANE OPERATOR - Last Filed: 03/26/21 09:13> Discharging clinician: Kaylynn Crook <Kaylynn Crook, TRAVELING CRANE OPERATOR - Last Filed: 03/26/21 09:13> DS: Diagnosis Discharge Diagnosis (1) Opioid use disorder: Status: Acute <Kaylynn Crook APRN - Last Filed: 03/26/21 09:13> Problem details: Heroin relapse ~8 weeks. Vivitrol Injection last week, he believes precipitating withdrawal sx. <Kaylynn Crook TRAVELING CRANE OPERATOR - Last Filed: 03/26/21 09:13> (2) ADHD: Status: Acute <Kaylynn Sola, TRAVELING CRANE OPERATOR - Last Filed: 03/26/21 09:13> (3) Mood disorder: Status: Acute <Kaylynn M EULALIO Crook - Last Filed: 03/26/21 09:13> Problem details: 35 yo male, recently homeless after a dispute with his brother, had a relapse on heroin ~8 weeks ago and stopped med regime ~6 days ago (02/23). Pt reports an increase in depressive sx with SI. He believes he is experiencing detox sx as he had a Vivitrol injection after using ~8days ago (believes Fentanyl is still in his system) <Kaylynn Crook APRN - Last Filed: 03/26/21 09:13> DS: Medications Discharge Medications Home Medications: Previous Rx's Medication Instructions Recorded albuterol sulfate [Ventolin HFA] 2 puff INHALATION RQID #1 g 03/06/21 bupropion HCl 300 mg PO DAILY #7 tab 03/06/21 dextroamphetamine-amphetamine 30 mg PO BID #14 tab 03/06/21 fluticasone propionate [Flovent 2 puff INHALATION RBID #1 ea 03/06/21 Diskus] gabapentin 800 mg PO TID #21 cap 03/06/21 hydroxyzine HCl 25 mg PO BID PRN #14 tab 03/06/21 lidocaine [Lidocaine Pain Relief] 1 patch TRANSDERMAL DAILY #7 ea 03/06/21 quetiapine 100 mg PO BEDTIME #7 tab 03/06/21 trazodone 50 mg PO BEDTIME PRN #7 tab 03/06/21 <Kaylynn Crook APRN - Last Filed: 03/26/21 09:13> Discharge Plan Discharge Anticipated Discharge Date/Time: 03/06/21 18:42 <Kaylynn Crook APRN - Last Filed: 03/26/21 09:13> Patient Disposition: Xfer Other <Kaylynn Crook APRN - Last Filed: 03/26/21 09:13> Discharge Diagnosis: Opiate Use Disorder Mood Disorder ADHD Recurrent Major Depression with hx of psychosis <Kaylynn Crook APRN - Last Filed: 07/05/21 09:13> Opiate Use Disorder Mood Disorder ADHD Recurrent Major Depression with hx of psychosis <Jeff Brewer MD - Last Filed: 03/29/21 17:49> Referrals: Raquel Gao MD [Primary Care Provider] - 1 Week (, March 08, 2021 11:15 a.m. Pt will follow up with PCP and will make own appointment. ) <Kaylynn Crook APRN - Last Filed: 03/26/21 09:13> Discharge Medications: New lidocaine [Lidocaine Pain Relief] 4 % Adhesive Patch,Medicated 1 patch transdermal DAILY Qty: 7 RF: 0 trazodone 50 mg Tablet 50 mg PO BEDTIME PRN (Reason: Insomnia) Qty: 7 RF: 0 gabapentin 400 mg Capsule 800 mg PO TID Qty: 21 RF: 0 quetiapine 100 mg Tablet 100 mg PO BEDTIME Qty: 7 RF: 0 hydroxyzine HCl 25 mg Tablet 25 mg PO BID PRN (Reason: Anxiety) Qty: 14 RF: 0 albuterol sulfate [Ventolin HFA] 90 mcg/actuation Hfa Aerosol Inhaler 2 puff inhalation RQID Qty: 1 RF: 0 Flovent Diskus 250 mcg/actuation Blister With Device 2 puff inhalation RBID Qty: 1 RF: 0 bupropion HCl 300 mg Tablet Extended Release 24 Hr 300 mg PO DAILY Qty: 7 RF: 0 dextroamphetamine-amphetamine 30 mg tablet 30 mg PO BID Qty: 14 RF: 0 Discontinued clonidine HCl 0.1 mg Tablet 0.1 mg PO TID RF: 0 gabapentin 600 mg Tablet 600 mg PO TID RF: 0 quetiapine 200 mg Tablet 200 mg PO BEDTIME RF: 0 bupropion HCl 150 mg Tablet Extended Release 24 Hr 150 mg PO QAM RF: 0 nicotine (polacrilex) 2 mg Gum 2 mg buccal Q2H PRN (Reason: Nicotine Cravings) Qty: 1 RF: 0 lidocaine 4 % Adhesive Patch,Medicated 1 patch TOPICAL DAILY RF: 0 dextroamphetamine-amphetamine 30 mg tablet 30 mg PO BID@08,14 RF: 0 quetiapine 50 mg tablet 1 tab PO DAILY RF: 0 ketorolac 10 mg Tablet 10 mg PO TID PRN (Reason: Pain, Moderate) RF: 0 Flovent HFA 220 mcg/actuation HFA aerosol inhaler 2 puff inhalation BID RF: 0 albuterol sulfate [ProAir HFA] 90 mcg/actuation HFA aerosol inhaler 2 puff inhalation QID RF: 0 lorazepam [Ativan] 1 mg tablet 1 mg PO Q6H PRN (Reason: Anxiety) RF: 0 <Kaylynn Crook APRN - Last Filed: 03/26/21 09:13> Discharge Orders: Discharge Order (Routine); Ordered 03/06/21 Ordered By: Kaylynn Crook <Kaylynn Crook APRN - Last Filed: 03/26/21 09:13> Diet: advance to usual diet <Kaylynn Crook APRN - Last Filed: 03/26/21 09:13> advance to usual diet <Jeff Brewer MD - Last Filed: 03/29/21 17:49> Activity on Discharge: As tolerated <Kaylynn Crook APRN - Last Filed: 03/26/21 09:13> As tolerated <Jeff Brewer MD - Last Filed: 03/29/21 17:49> Stand Alone Forms: Patient Portal Discharge page, Community Support <Kaylynn Crook APRN - Last Filed: 03/26/21 09:13> Care Plan Goals: Mood Stabilization Remain sober <Kaylynn Crook APRN - Last Filed: 03/26/21 09:13> Health Concerns: Mood Disorder Opiate Use Disorder Depression <Kaylynn Crook APRN - Last Filed: 03/26/21 09:13> Plan of Treatment: Attend appt with [facility] on February at 11:15 am. [facility]. Take medications as directed. We have re-established your regime with some dosing changes you have requested. You have signed a three day notice of intent to leave. You have declined referrals to psychiatry and therapy and will follow up with [facility] You report you will live with your sister, Griselda and look for a Sober House from there. You provided her contact number as [phone] however she is not answering this number. <Kaylynn Crook APRN Last Filed: 03/26/21 09:13> Assessment: alert, oriented, non psychotic, mood and affect are calm. Denies SI, HI. <Kaylynn Crook APRN Last Filed: 03/26/21 09:13> Discharge Date/Time: 03/06/21 18:19 [facility] Last Filed: 03/26/21 09:13> Mental Status Exam Mental Status Exam Patient Appearance: Appropriate <[facility] Last Filed: 03/26/21 09:13> Patient Orientation: Person, Place, Time and Situation <Kaylynn Crook APRN Last Filed: 03/26/21 09:13> Level of Consciousness: Alert <[facility] Last Filed: 03/26/21 09:13> Patient Behavior: Appropriate <[facility] Last Filed: 03/26/21 09:13> Mood Description: Constricted <[facility] Last Filed: 03/26/21 09:13> Affect Description: Constricted <Kalyynn Crook APRN Last Filed: 03/26/21 09:13> Patient Cognition Impaired: No <[facility] Last Filed: 03/26/21 09:13> Ability to Follow Directions: Good <Kaylynn Crook APRN Last Filed: 03/26/21 09:13> Speech Pattern: Spontaneous Speech <[facility] Last Filed: 03/26/21 09:13> Memory Description: Intact <Kaylynn Crook TRAVELING CRANE OPERATOR - Last Filed: 03/26/21 09:13> Hallucinations: None <[facility] Last Filed: 03/26/21 09:13> Delusions: Not Present <Kaylynn Solalexander TRAVELING CRANE OPERATOR - Last Filed: 03/26/21 09:13> Thought Process: Intact <Kaylynn Crook, TRAVELING CRANE OPERATOR - Last Filed: 03/26/21 09:13> Thought Content: positive for Intact <Kaylynn Crook, TRAVELING CRANE OPERATOR - Last Filed: 03/26/21 09:13> Judgement: Good <Kaylynn Crook, TRAVELING CRANE OPERATOR - Last Filed: 03/26/21 09:13> Data Data Completed and Pending Completed studies during hospitalization [Text1]: 03/01/21 03/01/21 03/01/21 10:06 10:06 10:06 WBC RBC Hgb Hct MCV MCH MCHC RDW Plt Count MPV Immature Gran % (Auto) Neut % (Auto) Lymph % (Auto) Coles % (Auto) Eos % (Auto) Baso % (Auto) Lymph # (Auto) Coles # (Auto) Eos # (Auto) Baso # (Auto) Abs Immat Gran (auto) Absolute Neuts (auto) Absolute Nucleated RBC Nucleated RBC % (auto) PT INR Sodium 139 Potassium 3.6 Chloride 108 Carbon Dioxide 23 Anion Gap 12 BUN 17 H D Creatinine 0.75 Estim Creat Clear Calc 118.1 Estimated GFR > 60 Random Glucose 86 Estimat Average Glucose Hemoglobin A1c % Calcium 9.9 D Magnesium Total Bilirubin 0.2 AST 12 D ALT 8 Alkaline Phosphatase 111 Total Protein 7.6 Albumin 4.1 D Triglycerides Cholesterol LDL Cholesterol, Calc HDL Cholesterol Vitamin B12 Folate TSH Free T4 Ethyl Alcohol < 10 Chlam trachomat DNA PCR COVID-19 ([facility]) Negative COVID-19 Clin Com See Note N.gonorrhoeae DNA (PCR) 03/01/21 03/01/21 03/02/21 10:07 10:07 07:59 WBC 7.6 RBC 5.19 D Hgb 14.5 D Hct 44.7 D MCV 86.1 MCH 27.9 MCHC 32.4 RDW 13.6 Plt Count 367 D MPV 8.5 L Immature Gran % (Auto) 0.3 Neut % (Auto) 69.4 Lymph % (Auto) 20.8 Coles % (Auto) 8.1 Eos % (Auto) 0.9 Baso % (Auto) 0.5 Lymph # (Auto) 1.6 Coles # (Auto) 0.6 Eos # (Auto) 0.1 Baso # (Auto) 0.0 Abs Immat Gran (auto) 0.02 Absolute Neuts (auto) 5.3 Absolute Nucleated RBC 0.000 Nucleated RBC % (auto) 0.0 PT 11.2 INR 0.9 Sodium Potassium Chloride Carbon Dioxide Anion Gap BUN Creatinine Estim Creat Clear Calc Estimated GFR Random Glucose Estimat Average Glucose 105 Hemoglobin A1c % 5.3 Calcium Magnesium Total Bilirubin AST ALT Alkaline Phosphatase Total Protein Albumin Triglycerides Cholesterol LDL Cholesterol, Calc HDL Cholesterol Vitamin B12 Folate TSH Free T4 Ethyl Alcohol Chlam trachomat DNA PCR COVID-19 ([facility]) COVID-19 Clin Com N.gonorrhoeae DNA (PCR) 03/02/21 03/02/21 03/03/21 07:59 07:59 20:30 WBC RBC Hgb Hct MCV MCH MCHC RDW Plt Count MPV Immature Gran % (Auto) Neut % (Auto) Lymph % (Auto) Coles % (Auto) Eos % (Auto) Baso % (Auto) Lymph # (Auto) Coles # (Auto) Eos # (Auto) Baso # (Auto) Abs Immat Gran (auto) Absolute Neuts (auto) Absolute Nucleated RBC Nucleated RBC % (auto) PT INR Sodium Potassium Chloride Carbon Dioxide Anion Gap BUN Creatinine Estim Creat Clear Calc Estimated GFR Random Glucose Estimat Average Glucose Hemoglobin A1c % Calcium Magnesium 1.9 Total Bilirubin AST ALT Alkaline Phosphatase Total Protein Albumin Triglycerides 58 Cholesterol 137 LDL Cholesterol, Calc 73 HDL Cholesterol 53 Vitamin B12 333 Folate 6.8 TSH 1.00 Free T4 1.00 Ethyl Alcohol Chlam trachomat DNA PCR NOT DETECTED COVID-19 ([facility]) COVID-19 Clin Com N.gonorrhoeae DNA (PCR) NOT DETECTED <Kaylynn Crook, TRAVELING CRANE OPERATOR - Last Filed: 03/26/21 09:13> DS: Summary Hospital Course Hospital Course: Pt admitted on a conditional voluntary status. He was discharged on a three day notice. Medication regime prior to admission was re-established. Seroquel was decreased as previous dosage levels were too sedating. Symptoms resolved when previous regime was re-established. Pt received a Vivitrol injection prior to admit on 02/22 which he believes precipitated withdrawal. He requested Methadone transition, however, a ten day period still needed to be observed before pt could tolerate Methadone due to Vivitrol mechanism of action, as a result we were not able to transition. Pt made arrangements to live with his sister, Griselda upon discharge. He declined psychiatric referrals, stating he would work with [facility] team beginning with his appointment on 03/08 with his primary care physician Dr. Nguyen. <Kaylynn Crook APRN - Last Filed: 03/26/21 09:13> Time spent discussing smoking cessation with patient: 3 to 10 minutes <Kaylynn Crook APRN - Last Filed: 03/26/21 09:13> Status at Discharge Cognitive/behavioral status at discharge: alert, non-suicidal, non-homicidal, non-psychotic, mood constricted. <Kaylynn Crook APRN - Last Filed: 03/26/21 09:13> Functional status at discharge: independent ambulation <Kaylynn Crook APRN - Last Filed: 03/26/21 09:13> Overall status at discharge: patient is back to baseline <Kaylynn Crook APRN - Last Filed: 03/26/21 09:13> Time Spent with Patient Time attestation: Total time spent providing and/or coordinating discharge services:35 <Kaylynn Crook APRN - Last Filed: 03/26/21 09:13>
== END 2021-03-06 18:19 | disposition other institution (70) | DRG 753 ==
LOC: HO.ED 11:01 → HO.PM5 03-01 15:52
PROVIDERS: Internal Medicine; Physician Assistant Medical; Admitting Provider Clinical Nurse Specialist Psychiatric/Mental Health, Adult; Emergency Provider Student in an Organized Health Care Education/Training Program; PCP Family Medicine; Visit Provider Clinical Nurse Specialist Psychiatric/Mental Health, Adult
DX: F39 Unspecified mood [affective] disorder (principal); R45.851 Suicidal ideations; F11.10 Opioid abuse, uncomplicated; F17.210 Nicotine dependence, cigarettes, uncomplicated; F90.9 Attention-deficit hyperactivity disorder, unspecified type; Z71.6 Tobacco abuse counseling; Z20.822 Contact with and (suspected) exposure to COVID-19; Z59.0 Homelessness; Z79.51 Long term (current) use of inhaled steroids; Z79.899 Other long term (current) drug therapy
CPT/HCPCS: 36415; 80053; 80061; 80307; 82077; 82607; 82746; 83036; 83735; 84439; 84443; 85025; 85610; 87491; 87591; 87635; 93005; 99285; J1885

== ENCOUNTER 2021-04-02 19:17 | Emergency (ER) | payer MEDICAID, SELFPAY ==
[2021-04-02 20:04] VITALS: BP 117/61; PULSE 61; RESP 20; TEMP 36.5; O2SAT 100; BMI 22.8
== END 2021-04-02 21:01 | disposition left against medical advice (07) ==
PROVIDERS: Emergency Provider Emergency Medicine; PCP Family Medicine
DX: M79.601 Pain in right arm (principal)
CPT/HCPCS: 99282

== ENCOUNTER 2021-04-29 18:31 | Emergency (ER) | payer MEDICAID, SELFPAY ==
[2021-04-29 18:59] VITALS: BP 129/77; PULSE 71; RESP 16; TEMP 36.9; O2SAT 95; BMI 26.5
--- NOTE | 2021-04-29 19:07 | ED_ITS ---
HPI - Psych General Chief Complaint: Psychiatric Symptoms Stated Complaint: depression Time Seen by Provider: 04/30/21 00:13 Source: patient Mode of arrival: ambulatory Limitations: no limitations History of Present Illness HPI Narrative: 35-year-old male with past medical history of opioid abuse disorder, anemia, DVT, ADHD, and major depression with psychotic features presents for crisis evaluation. Stated that he tried overdose on heroin earlier today but a bystander gave him Narcan. Has not been on his medications for about 5 weeks, and states that he is unable to handle his emotions. Patient is suicidal with a plan to overdose. MD complaint: suicidal ideation, feels depressed and substance abuse Onset (ago): week(s) Duration: constant History of same: Yes Relieving factors: none Exacerbating factors: drug use Context: recent drug abuse, not taking psychiatric medications and significant life stressor Associated psychiatric symptoms: depression and suicidal ideation Associated symptoms: denies other symptoms Treatments prior to arrival: none If self harm: admits thoughts of self harm, has plan and intentional overdose Related Data Previous Rx's Medication Instructions Recorded albuterol sulfate 90 mcg/actuation 2 puff INHALATION RQID #1 g 03/06/21 aerosol inhaler (Ventolin HFA) bupropion HCl 300 mg 24 hr tablet, 300 mg PO DAILY #7 tab 03/06/21 extended release dextroamphetamine-amphetamine 30 30 mg PO BID #14 tab 03/06/21 mg tablet fluticasone propionate 250 2 puff INHALATION RBID #1 ea 03/06/21 mcg/actuation blister powder for inhalation (Flovent Diskus) gabapentin 400 mg capsule 800 mg PO TID #21 cap 03/06/21 hydroxyzine HCl 25 mg tablet 25 mg PO BID PRN #14 tab 03/06/21 lidocaine 4 % topical patch 1 patch TRANSDERMAL DAILY #7 ea 03/06/21 (Lidocaine Pain Relief) quetiapine 100 mg tablet 100 mg PO BEDTIME #7 tab 03/06/21 trazodone 50 mg tablet 50 mg PO BEDTIME PRN #7 tab 03/06/21 Allergies Allergy/AdvReac Type Severity Reaction Status Date / Time haloperidol [From HALDOL] AdvReac Intermediate LOCK JAW Verified 02/07/21 14:42 olanzapine [From ZYPREXA] AdvReac Unknown PT REPORTS Verified 02/07/21 14:42 FEELS LIKE I AM ON AN ACID TRIP Review of Systems Review of Systems: Constitutional: No Fever, No Chills ENT/Mouth: No Ear Pain, No Nasal Congestion, No sore throat Eyes: No Eye Pain, No Swelling, No Redness Cardiovascular: No Chest Pain, No SOB Respiratory: No Cough, No Sputum, No Dyspnea Gastrointestinal: No Nausea, No Vomiting, No Diarrhea, No Hematochezia, No Melena Genitourinary: No Dysuria, No Urinary Frequency, No Hematuria Musculoskeletal: No Myalgias Skin: No Skin Lesions, No rash Neuro: No Weakness, No Numbness, No Paresthesias, No Dizziness, No Headache Psych: positive Anxiety, positive Depression, positive SI with plan, positive overdose attempt, positive substance abuse Heme/Lymph: No Lymphadenopathy Endocrine: No Polyuria, No Polydipsia Yes all other systems are reviewed and are negative [facility] Past Medical History Attestation statement: The following information was validated with the patient. Source: old records reviewed Medical History ADHD DVT (deep venous thrombosis) Endocarditis Eye contusion Hepatitis C IV drug abuse Left upper extremity deep vein thrombosis Mood disorder Severe sepsis Surgical History History of left knee surgery S/P left knee arthroscopy Social History Social History Household Members: None Housing: Homeless Do you presently have visiting nurse or other home services: No Alcohol intake: never Patient Tobacco Use Status: Current everyday Tobacco user Tobacco use type: Cigarette Cigarette Packs Per Day: 1.5 Cigarettes Per Day: 30.0 e-Cigarette/Vaping Use: Never Used Second Hand Smoke Exposure: Yes Use of substances other than those prescribed or required for medical reasons: Yes Substance Use Type: Heroin Advance Directives: No Advance Directives Information Provided: No service: No Sexual orientation: Straight/Heterosexual Physical Exam Vital Signs: Vital Signs: Last Vital Signs Temp 98.4 F 04/29/21 18:59 Pulse 71 04/29/21 18:59 Resp 16 04/29/21 18:59 BP 129/77 04/29/21 18:59 Pulse Ox 95 04/29/21 18:59 Body Mass Index 26.5 Appearance: Alert. Oriented X3. Moderate emotional and psychiatric distress. Eyes: Pupils equal, round and reactive to light. Sclera nonicteric ENT: Pharynx normal. Moist mucous membranes Neck: Normal inspection. Neck supple. CVS: Normal heart rate and rhythm. Pulses normal. Respiratory: No respiratory distress. Breath sounds normal. Abdomen: Soft and nontender. Skin: Skin warm and dry. Normal skin color. Normal skin turgor. Extremities: No lower extremity edema. Moves all extremities against resistance. Neuro: No motor deficit. No sensory deficit. Cranial nerves 2-12 intact. Course Course Course Narrative: 35-year-old male presents for suicidal ideation and intent to overdose. Patient intentionally took too much heroin and stated that there was a bystander I gave him Narcan which resuscitated him. Patient is asking for help, states that all he thinks about his dying, and is unable to cope. Plan care is for labs, KENDRICK, urinalysis, psychiatric evaluation and BHN consult. Patient will be Section 12. Physician observation started at this time. MDM - Psych Differential Diagnosis Differential diagnosis: Likely acute psychosis, suicidal ideation, depression, drug-induced psychotic disorder, acute anxiety and substance abuse Medical Records Attestation: I reviewed the patient's medical records. Lab Data Attestation: I reviewed the patient's lab results. Result diagrams: 04/29/21 19:25 Labs: Lab Results 04/29/21 04/29/21 04/29/21 Range/Units 19:25 19:25 20:03 WBC 7.6 (4.8-10.8) X10*3/uL RBC 4.50 L (4.60-5.80) X10*6/uL Hgb 12.4 L (14.0-18.0) g/dl Hct 38.5 L (42-52) % MCV 85.6 (80-98) fL MCH 27.6 (27.0-33.0) pg MCHC 32.2 (31.0-36.0) g/dl RDW 12.7 (11.0-16.0) % Plt Count 313 (160-400) X10*3/uL MPV 8.3 L (9.4-12.4) fL Immature Gran % (Auto) 0.3 (0.0-0.4) % Neut % (Auto) 76.7 H (45-73) % Lymph % (Auto) 14.0 L (20-40) % [place] % (Auto) 6.9 (2-11) % Eos % (Auto) 1.4 (0-4) % Baso % (Auto) 0.7 (0-2) % Lymph # (Auto) 1.1 L (1.2-4.9) X10*3/uL [place] # (Auto) 0.5 (0.1-1.2) X10*3/uL Eos # (Auto) 0.1 (0.0-0.4) X10*3/uL Baso # (Auto) 0.1 (0.0-0.2) X10*3/uL Abs Immat Gran (auto) 0.02 (0.00-0.03) X10*3/uL Absolute Neuts (auto) 5.9 (2.0-8.3) X10*3/uL Absolute Nucleated RBC 0.000 (0.0-0.012) X10*3/uL Nucleated RBC % (auto) 0.0 (0.0-0.2) /100WBC Ethyl Alcohol < 10 mg/dL Coronavirus (PCR) NEGATIVE (Negative) Influenza Type A (PCR) NEGATIVE (Negative) Influenza Type B (PCR) NEGATIVE (Negative) RSV RNA Qual (PCR) NEGATIVE (Negative) Discharge Plan Discharge Clinical Impression: Major depression with psychotic features, Opioid use disorder, Suicidal ideation Prescriptions: No Action lidocaine [Lidocaine Pain Relief] 4 % Adhesive Patch,Medicated 1 patch transdermal DAILY Qty: 7 RF: 0 trazodone 50 mg Tablet 50 mg PO BEDTIME PRN (Reason: Insomnia) Qty: 7 RF: 0 gabapentin 400 mg Capsule 800 mg PO TID Qty: 21 RF: 0 quetiapine 100 mg Tablet 100 mg PO BEDTIME Qty: 7 RF: 0 hydroxyzine HCl 25 mg Tablet 25 mg PO BID PRN (Reason: Anxiety) Qty: 14 RF: 0 albuterol sulfate [Ventolin HFA] 90 mcg/actuation Hfa Aerosol Inhaler 2 puff inhalation RQID Qty: 1 RF: 0 Flovent Diskus 250 mcg/actuation Blister With Device 2 puff inhalation RBID Qty: 1 RF: 0 bupropion HCl 300 mg Tablet Extended Release 24 Hr 300 mg PO DAILY Qty: 7 RF: 0 dextroamphetamine-amphetamine 30 mg tablet 30 mg PO BID Qty: 14 RF: 0
[2021-04-29 19:29] LABS: MANUAL DIFF FLAG NO
[2021-04-29 19:32] LABS: Basophils Absolute Auto 0.1 X10*3/uL (0.0-0.2); Basophils Percent Auto 0.7 % (0-2); Eosinophils Absolute Auto 0.1 X10*3/uL (0.0-0.4); Eosinophils Percent Auto 1.4 % (0-4); Hematocrit 38.5 % (42-52); Hemoglobin 12.4 g/dl (14.0-18.0); Imm Gran Abs Auto 0.02 X10*3/uL (0.00-0.03); Imm Gran Pct Auto 0.3 % (0.0-0.4); Lymphocytes Absolute Auto 1.1 X10*3/uL (1.2-4.9); Mean Corpuscular HGB Conc 32.2 g/dl (31.0-36.0); Mean Corpuscular Hemoglobin 27.6 pg (27.0-33.0); Mean Corpuscular Volume 85.6 fL (80-98); Mean Platelet Volume 8.3 fL (9.4-12.4); Monocytes Absolute Auto 0.5 X10*3/uL (0.1-1.2); Monocytes Percent Auto 6.9 % (2-11); Neutrophils Absolute Auto 5.9 X10*3/uL (2.0-8.3); Neutrophils Percent Auto 76.7 % (45-73); Platelet Count 313 X10*3/uL (160-400); Red Cell Distribution Width 12.7 % (11.0-16.0); White Blood Count 7.6 X10*3/uL (4.8-10.8)
[2021-04-29 19:59] LABS: Ethanol < 10 mg/dL
[2021-04-29 20:53] LABS: Influenza A PCR NEGATIVE (Negative); Influenza B PCR NEGATIVE (Negative); Resp Syncy Virus RNA Qual PCR NEGATIVE (Negative); SARS COV2 PCR INHOUSE NEGATIVE (Negative)
--- NOTE | 2021-04-30 00:45 | PC.NURSE ---
Patient just woke up, provided urine sample, N referral completed via smart-sheet, Shari overnight BHN nutrient management specialist confirmed receipt of referral, no distress observed/reported, will continue to monitor.
[2021-04-30 01:12] LABS: Amphetamine Screen Urine Not Detected (Not Detect); Barbiturates, Urine Not Detected (Not Detect); Benzodiazepines Screen Urine Not Detected (Not Detect); Cannabinoid Screen Urine Not Detected (Not Detect); Cocaine Screen Urine POSITIVE (Not Detect); Opiate Screen Urine POSITIVE (Not Detect); Phencyclidine Screen Urine Not Detected (Not Detect)
--- NOTE | 2021-04-30 02:31 | PC.NURSE ---
Patient just got assessed by the N, disposition is section 12 inpatient bed search, no distress observed/reported, will continue to monitor.
--- NOTE | 2021-04-30 06:14 | PC.NURSE ---
Patient slept through the night, no distress observed/reported, behavior appropriate, asymptomatic of withdrawal at this time, disposition is section 12 inpatient bed search, appetite good, VSS, will continue to monitor.
[2021-04-30 06:23] VITALS: BP 119/71; PULSE 58; RESP 15; TEMP 37.1; O2SAT 97
--- NOTE | 2021-04-30 07:26 | PC.NURSE ---
patient appears at rest at present, respirations even and unlabored, appears in no distress
[2021-04-30 08:48] VITALS: BP 132/86; PULSE 62; RESP 17; TEMP 37.2; O2SAT 97
--- NOTE | 2021-04-30 09:27 | ECG_ITS ---
Test Reason : MED CLEARANCE Blood Pressure : / mmHG Vent. Rate : 060 BPM Atrial Rate : 060 BPM P-R Int : 134 ms QRS Dur : 082 ms QT Int : 408 ms P-R-T Axes : -05 015 024 degrees QTc Int : 408 ms Normal sinus rhythm with intermittent Unusual P axis, possible ectopic atrial rhythm Borderline ECG When compared with ECG of 01-MAR-2021 11:30, Unusual P axis, possible ectopic atrial rhythm is new Referred By: Evita Tamayo Electronically Signed By:JONES HURST MD
[2021-04-30 10:27] LABS: Alanine Aminotransferase 78 U/L (0-40); Alkaline Phosphatase 87 U/L (39-117); Anion Gap 12 (12-20); Aspartate Amino Transferase 68 U/L (5-37); Bilirubin Total 0.4 mg/dL (0.0-1.0); Blood Urea Nitrogen 10 mg/dL (9-16); Calcium 9.6 mg/dL (8.4-10.2); Carbon Dioxide 28 mmol/L (22-29); Chloride 102 mmol/L (96-108); Creatinine Clr Calc Pharmacy 106.7; Estimated Glomerular Filt Rate > 60; Glucose Random 100 mg/dL (60-115); Magnesium 2.1 mg/dL (1.6-2.6); Potassium 4.7 mmol/L (3.3-5.1); Sodium 137 mmol/L (135-145); Total Protein 7.8 g/dL (6.5-8.0)
[2021-04-30 12:04] LABS: Appearance Urine CLEAR; Color Urine YELLOW; Glucose Urine UA NEG (NEG); Leukocyte Esterase Urine NEG (NEG); Nitrite Urine NEG (NEG); PH 6.5 (5.0-8.0); Specific Gravity - Urine <= 1.005 (1.005-1.025); Urine Blood NEG (NEG); Urine Ketones NEG (NEG); Urine Protein NEG (NEG-TRACE)
[2021-04-30 13:34] VITALS: BP 126/68; PULSE 61; RESP 16
[2021-04-30 14:58] VITALS: BP 126/68; PULSE 61
[2021-04-30] MEDS: cloNIDine HCL 0.2 MG TABLET PO (14:58)
[2021-04-30] MEDS: Cyclobenzaprine HCl 10 MG TABLET PO (14:58)
--- NOTE | 2021-04-30 17:20 | PM.PSYCN ---
History of Present Illness Date of Service: 04/30/21 Chief Complaint: depression Reason for Consult: recommend medications Requesting physician: Evita Tamayo Discussed with referring provider: Yes HPI Narrative: expert medical writer asked to make medication recommendations. Currently patient does not want to take home psychiatric medications. Will thus not restart at this time. 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 Parents are . Mom in 2011 a few days before pt was relased from incarceration. Pt found his father in 2019. Trauma History: Found his father after his in 2019. Diagnostics Vital Signs (24Hr): Vital Signs - 24 hr 04/29/21 18:59 04/30/21 06:23 04/30/21 08:48 Temperature 98.4 F 98.8 F 98.9 F Pulse Rate 71 58 62 Respiratory Rate 16 15 17 Blood Pressure 129/77 119/71 132/86 Pulse Oximetry 95 97 97 04/30/21 13:34 04/30/21 14:58 Temperature Pulse Rate 61 61 Respiratory Rate 16 Blood Pressure 126/68 126/68 Pulse Oximetry Body Mass Index 26.5 Labs Results: 04/29/21 19:25 04/30/21 09:57 Labs: Laboratory Results - last 48 hr 04/29/21 04/29/21 04/29/21 19:25 19:25 20:03 WBC 7.6 RBC 4.50 L Hgb 12.4 L Hct 38.5 L MCV 85.6 MCH 27.6 MCHC 32.2 RDW 12.7 Plt Count 313 MPV 8.3 L Immature Gran % (Auto) 0.3 Neut % (Auto) 76.7 H Lymph % (Auto) 14.0 L [place] % (Auto) 6.9 Eos % (Auto) 1.4 Baso % (Auto) 0.7 Lymph # (Auto) 1.1 L [place] # (Auto) 0.5 Eos # (Auto) 0.1 Baso # (Auto) 0.1 Abs Immat Gran (auto) 0.02 Absolute Neuts (auto) 5.9 Absolute Nucleated RBC 0.000 Nucleated RBC % (auto) 0.0 Sodium Potassium Chloride Carbon Dioxide Anion Gap BUN Creatinine Estim Creat Clear Calc Estimated GFR Random Glucose Calcium Magnesium Total Bilirubin AST ALT Alkaline Phosphatase Total Protein Albumin Urine Color Urine Appearance Urine pH Ur Specific [place] Urine Protein Urine Glucose (UA) Urine Ketones Urine Blood Urine Nitrite Ur Leukocyte Esterase Urine Opiates Screen Ur Barbiturates Screen Ur Phencyclidine Scrn Ur Amphetamines Screen U Benzodiazepines Scrn Urine Cocaine Screen U Marijuana (THC) Screen Ethyl Alcohol < 10 Coronavirus (PCR) NEGATIVE Influenza Type A (PCR) NEGATIVE Influenza Type B (PCR) NEGATIVE RSV RNA Qual (PCR) NEGATIVE 04/30/21 04/30/21 04/30/21 00:28 00:36 09:57 WBC RBC Hgb Hct MCV MCH MCHC RDW Plt Count MPV Immature Gran % (Auto) Neut % (Auto) Lymph % (Auto) [place] % (Auto) Eos % (Auto) Baso % (Auto) Lymph # (Auto) [place] # (Auto) Eos # (Auto) Baso # (Auto) Abs Immat Gran (auto) Absolute Neuts (auto) Absolute Nucleated RBC Nucleated RBC % (auto) Sodium 137 Potassium 4.7 D Chloride 102 Carbon Dioxide 28 Anion Gap 12 BUN 10 Creatinine 0.77 Estim Creat Clear Calc 106.7 Estimated GFR > 60 Random Glucose 100 Calcium 9.6 Magnesium 2.1 Total Bilirubin 0.4 AST 68 H ALT 78 H Alkaline Phosphatase 87 D Total Protein 7.8 Albumin 4.0 Urine Color YELLOW Urine Appearance CLEAR Urine pH 6.5 Ur Specific [place] <= 1.005 Urine Protein NEG Urine Glucose (UA) NEG Urine Ketones NEG Urine Blood NEG Urine Nitrite NEG Ur Leukocyte Esterase NEG Urine Opiates Screen POSITIVE H Ur Barbiturates Screen Not Detected Ur Phencyclidine Scrn Not Detected Ur Amphetamines Screen Not Detected U Benzodiazepines Scrn Not Detected Urine Cocaine Screen POSITIVE H U Marijuana (THC) Screen Not Detected Ethyl Alcohol Coronavirus (PCR) Influenza Type A (PCR) Influenza Type B (PCR) RSV RNA Qual (PCR) Medications Allergies Allergies Allergy/AdvReac Type Severity Reaction Status Date / Time haloperidol [From HALDOL] AdvReac Intermediate LOCK JAW Verified 02/07/21 14:42 olanzapine [From ZYPREXA] AdvReac Unknown PT REPORTS Verified 02/07/21 14:42 FEELS LIKE I AM ON AN ACID TRIP Assessment & Plan Greater than 50% of the session was spent on counseling and/or coordination of care
== END 2021-04-30 16:34 ==
PROVIDERS: Nurse Practitioner Family; Physician Assistant Medical; Emergency Provider Internal Medicine; PCP Family Medicine
DX: F32.3 Major depressive disorder, single episode, severe with psychotic features (principal); F11.20 Opioid dependence, uncomplicated; R45.851 Suicidal ideations; F19.10 Other psychoactive substance abuse, uncomplicated; F41.9 Anxiety disorder, unspecified; F17.210 Nicotine dependence, cigarettes, uncomplicated; Z91.14 Patient's other noncompliance with medication regimen; Z91.5 Personal history of self-harm; Z20.822 Contact with and (suspected) exposure to COVID-19
CPT/HCPCS: 0241U; 36415; 80053; 80307; 81003; 82077; 83735; 85025; 93005; 99285

== ENCOUNTER 2021-07-19 21:18 | Inpatient (IN) | payer MEDICAID, OTHER, SELFPAY ==
--- NOTE | ~2021-07-19 | CT_ITS ---
EXAMINATION: NONCONTRAST HEAD CT NONCONTRAST MAXILLOFACIAL CT NONCONTRAST CERVICAL SPINE CT INDICATION INFORMATION: Fall COMPARISON: 12/23/2017 TECHNIQUE: Separate noncontrast CT examinations of the head, maxillofacial bones, and cervical spine were performed. Coronal and sagittal images were created for each examination at the technologist workstation. DOSE LOWERING TECHNIQUES: This CT examination was performed using dose optimization techniques as appropriate, variously including the following: - Automated exposure control - Adjustment of mA and/or kV according to patient size (this includes techniques or standardized protocols for targeted exams were dose is matched to indication/reason for exam; i.e. extremities or head) - Use of iterative reconstruction technique DLP: 1510 mGy-cm FINDINGS: Partially limited evaluation throughout the exam due to motion artifact. Head: There is no evidence of acute intracranial hemorrhage or territorial infarction. No abnormal mass-effect or midline shift is seen. Diez to white matter differentiation is well preserved. No extra-axial fluid collections are identified. The ventricles are normal in size. There is no abnormal attenuation within the brain parenchyma. The osseous structures and soft tissues are normal. The mastoid air cells are well aerated. Maxillofacial: No acute maxillofacial fractures are seen. Right-sided supraorbital soft tissue swelling is noted. The frontal, maxillary, ethmoid, and sphenoid sinuses are well aerated. The mandibular condyles are well-seated in the condylar fossa. The orbits demonstrate a normal appearance bilaterally. The globes are intact, and there are no suspicious findings to suggest retrobulbar hemorrhage. Cervical spine: There is anatomic alignment of the vertebral bodies and posterior elements. There is degenerative change at the atlantodens articulation. Vertebral body heights are maintained. There is redemonstrated fusion of cervical vertebrae C5-C7. Additional fused vertebrae are seen in the partially visualized upper thoracic spine. There is bilateral facet arthropathy, left-sided greater than right. No evidence of acute fracture. No prevertebral soft tissue swelling. Visualized portions of the lung apices are unremarkable. The thyroid gland is unremarkable. CT/CT cervical spine wo con IMPRESSION: 1. Limited evaluation in some regions due to patient motion artifact. 2. No acute intracranial findings identified. 3. No facial fracture identified. Right supraorbital soft tissue swelling. 4. No acute findings identified in the cervical spine. Chronic and degenerative changes as noted above.
--- NOTE | ~2021-07-19 | XR_ITS ---
EXAMINATION: XR CHEST CLINICAL INFORMATION: Overdose. Vomiting. COMPARISON: CT chest dated 06/21/2020. TECHNIQUE: Frontal view of the chest was obtained. FINDINGS: Possible trace right-sided pleural effusion versus pleural thickening. No airspace consolidation. No pneumothorax. Unremarkable cardiomediastinal silhouette. XR/XR chest 1V IMPRESSION: 1. Trace right-sided pleural effusion versus pleural thickening. 2. No focal airspace consolidation.
[2021-07-19 21:27] VITALS: BP 144/79; PULSE 92; RESP 20; TEMP 36.8; O2SAT 97; BMI 25.0
--- NOTE | 2021-07-19 21:28 | ECG_ITS ---
Test Reason : OVERDOSE Blood Pressure : / mmHG Vent. Rate : 082 BPM Atrial Rate : 082 BPM P-R Int : 142 ms QRS Dur : 082 ms QT Int : 394 ms P-R-T Axes : 026 003 006 degrees QTc Int : 460 ms Normal sinus rhythm Minimal voltage criteria for LVH, may be normal variant ( R in aVL ) Nonspecific T wave abnormality Anterior leads Abnormal ECG T wave inversion now evident in Anterior leads p-waves is no longer inverted Inferior leads Referred By: Jennifer Osborn Electronically Signed By:LEODAN GANN MD
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
--- NOTE | 2021-07-19 21:45 | PC.NURSE ---
PT TO ROOM #8 WITH S/I WITH A PLAN TO OD ON HEROIN TONIGHT. PT STATES I FELL PT HAS MULTIPLE LACERATIONS AND SCRATCHES ON FACE. NO ACTIVE BLEEDING AT THIS TIME. PT ALERT, RESPIRATIONS EASY, N/L. SKIN W/D. AT BEDSIDE WITH PT.
[2021-07-19] MEDS: ondansetron HCL 4 MG/2 ML VIAL IVPUSH (21:47)
[2021-07-19] MEDS: LORazepam 2 MG/ML VIAL 1 MG IVPUSH (21:48)
[2021-07-19] MEDS: Diphth,Pertus(ACell),Tet Adult 0.5 ML SYRINGE IM (21:49)
[2021-07-19] MEDS: 0.9 % Sodium Chloride 1,000 ML 999 ML IVCONT (21:50)
[2021-07-19 22:45] LABS: MANUAL DIFF FLAG NO
[2021-07-19 22:46] LABS: Basophils Percent Auto 0.6 % (0-2); Eosinophils Absolute Auto 0.1 X10*3/uL (0.0-0.4); Hematocrit 37.6 % (42-52); Hemoglobin 12.6 g/dl (14.0-18.0); Imm Gran Abs Auto 0.01 X10*3/uL (0.00-0.03); Imm Gran Pct Auto 0.1 % (0.0-0.4); Lymphocytes Absolute Auto 1.2 X10*3/uL (1.2-4.9); Lymphocytes Percent Auto 16.6 % (20-40); Mean Corpuscular HGB Conc 33.5 g/dl (31.0-36.0); Mean Corpuscular Hemoglobin 28.5 pg (27.0-33.0); Mean Corpuscular Volume 85.1 fL (80-98); Mean Platelet Volume 8.6 fL (9.4-12.4); Monocytes Absolute Auto 0.8 X10*3/uL (0.1-1.2); Neutrophils Absolute Auto 4.9 X10*3/uL (2.0-8.3); Neutrophils Percent Auto 70.7 % (45-73); Platelet Count 221 X10*3/uL (160-400); Red Blood Count 4.42 X10*6/uL (4.60-5.80); Red Cell Distribution Width 13.6 % (11.0-16.0)
[2021-07-19 22:48] LABS: COVID-19 Test Negative (Negative); IDNOW Serial# 9DD0AD1C
[2021-07-19 23:00] LABS: Ethanol < 10 mg/dL
[2021-07-19 23:11] LABS: Alanine Aminotransferase 93 U/L (0-40); Albumin Level 4.1 g/dL (3.5-5.0); Alkaline Phosphatase 74 U/L (39-117); Anion Gap 13 (12-20); Aspartate Amino Transferase 70 U/L (5-37); Bilirubin Direct 0.2 mg/dL (0.0-0.5); Bilirubin Total 0.4 mg/dL (0.0-1.0); Blood Urea Nitrogen 10 mg/dL (9-16); Carbon Dioxide 25 mmol/L (22-29); Chloride 105 mmol/L (96-108); Creatinine Clr Calc Pharmacy 122.4; Estimated Glomerular Filt Rate > 60; Glucose Random 90 mg/dL (60-115); Magnesium 1.8 mg/dL (1.6-2.6); Potassium 3.3 mmol/L (3.3-5.1); Sodium 140 mmol/L (135-145); Total Protein 7.3 g/dL (6.5-8.0)
--- NOTE | 2021-07-19 23:18 | PC.NURSE ---
PT SLEEPING, WAKES TO VOICE. RESPIRATIONS EASY, N/L.
[2021-07-19 23:19] VITALS: BP 108/53; PULSE 95; RESP 16; O2SAT 97
[2021-07-19 23:24] LABS: Acetaminophen LAB < 1 mcg/mL (<30); Salicylate < 5.0 mg/dL (15-30)
[2021-07-19] MEDS: 0.9 % Sodium Chloride 1,000 ML 999 ML IV (23:48)
[2021-07-20] VITALS (7 sets, daily range): BP systolic 125–139; BP diastolic 70–83; PULSE 63–86; RESP 15–18; TEMP 36.6–37.2; O2SAT 93–98
--- NOTE | 2021-07-20 02:34 | PC.NURSE ---
pt remains on 1:1 obs with sitter at bedside with pt. pt wakes to voice, respirations easy, n/l. skin w/d.
[2021-07-20] MEDS: Ibuprofen 600 MG TABLET PO (03:55)
--- NOTE | 2021-07-20 04:06 | PC.NURSE ---
pt requesting facial pain rating 10/10. pt refusing ice pack. MD aware and ordered Motrin PO for pain. will continue to monitor pt.
--- NOTE | 2021-07-20 04:13 | PC.NURSE ---
ice pack given to pt.
--- NOTE | 2021-07-20 04:29 | PC.NURSE ---
Ice pack to face, pt's right eye bruised and swollen shut. Pt states my parents and I have no kids and no one to live for pt states im either going to climb up a tree with a rope and jump off or i will continue to use Heroin and hopefully I will OD on Heroin, Kimber OD on Heroin 36 times before today. pt tearful at this time. pt denies wanting food to eat but drinking ice water at this time. Pt denies nausea/vomiting. NS x 2L infused w/o difficulty. site intact. Pt requesting HL to be removed. pt awaiting for further orders.
[2021-07-20 05:21] LABS: Amphetamine Screen Urine Not Detected (Not Detect); Barbiturates, Urine Not Detected (Not Detect); Benzodiazepines Screen Urine Not Detected (Not Detect); Cannabinoid Screen Urine POSITIVE (Not Detect); Cocaine Screen Urine POSITIVE (Not Detect); Fentanyl, urine POSITIVE (Not Detect); Opiate Screen Urine POSITIVE (Not Detect); Phencyclidine Screen Urine Not Detected (Not Detect)
--- NOTE | 2021-07-20 05:32 | PC.NURSE ---
Patient just transferred from main ED, ambulated indecently, medically cleared after OD heroin, got narcaned in the field by EMS, right eye bruised from fall per patient, patient was recently d/c after completing his [address] order, VSS, behavior non concerning, will continue to monitor.
--- NOTE | 2021-07-20 07:55 | PC.NURSE ---
This sign writer letterer or painter called pharmacy regarding pt's meds, per pharmacy the provider needs to order meds. Provider KORI Blue was notified by this sign writer letterer or painter. Awaiting provider to order pt's meds. Pt alert and oriented, pt given breakfast. pt currently laying in bed with his eyes closed. Will continue to monitor.
[2021-07-20] MEDS: Gabapentin 400 MG CAPSULE 800 MG PO ×3 (08:24→19:53)
--- NOTE | 2021-07-20 08:27 | PC.NURSE ---
Meds given as documented, pt took meds without difficulty, vss. Claire from Care Team in with pt.
--- NOTE | 2021-07-20 08:42 | PC.NURSE ---
pt up to restroom, used phone, back to room laying in bed with eyes closed, will continue to monitor.
[2021-07-20] MEDS: buPROPion HCL 100 MG TABLET PO (10:00)
--- NOTE | 2021-07-20 10:13 | PC.NURSE ---
med given as documented. pt denies pain, no complaints. pt laying in bed with eyes closed. Dakotah from Care Team recommended inpatient bed for pt. will continue to monitor.
--- NOTE | 2021-07-20 13:35 | PC.NURSE ---
Pt out of room to use restroom, he requested crayons and remote to change the tv channel in his room. Lunch given. No complaints. No incidents noted/reported. Will continue to monitor.
[2021-07-20] MEDS: Acetaminophen 325 MG TABLET 650 MG PO (15:18)
--- NOTE | 2021-07-20 15:30 | PC.NURSE ---
pt c/o headache 05/01, Tylenol given as documented. pt in room laying in bed with eyes closed. Will continue to monitor.
--- NOTE | 2021-07-20 16:50 | PC.NURSE ---
[place], staff pharmacist hospital Nurse on M5 called for [id number] report. Pt to be transported to unit between 1730 and 1800. Pt aware.
--- NOTE | 2021-07-20 17:46 | PC.NURSE ---
pt transported to by RENAN Dickey and security. pt alert and oriented, vss.
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
[2021-07-20] MEDS: Nicotine Polacrilex 2 MG GUM 4 MG BUCCAL (19:54)
[2021-07-20] MEDS: QUEtiapine Fumarate 200 MG TABLET PO (20:11)
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
[2021-07-21 06:00] VITALS: BP 136/72; PULSE 56; RESP 18; TEMP 37; O2SAT 98
[2021-07-21] MEDS: buPROPion HCl XL 300 MG TAB.ER.24H PO (08:35)
[2021-07-21] MEDS: Gabapentin 400 MG CAPSULE 800 MG PO ×3 (08:36→20:14)
--- NOTE | 2021-07-21 09:44 | P.PNPSI_ITS ---
Subjective Subjective Date of Service: 07/21/21 Reason For Visit: mdd psychotic features Interim History: Depressed. Minimizes facial injuries I fell down . High risk using behaviors. Agrees to Suboxone induction. Review of Systems Review of Systems CVS: No c/o chest pain, palpitations, no SOB DIETETIC ASSISTANT: He c/o headache, was given motrin and tylenol. No dizziness. GI: At this time, no c/o Nausea, Vomiting, diarrhea, constipation or heartburn- will add zofran PRN in case. Mental Status Exam Mental Status Exam Narrative: A&O. In hospital attire, facial lacerations, R eye hematoma, R ear bandaged. Good eye contact, attentive. No Tics or Tremors. No abnormal involuntary movements. Calm, cooperative, engaged. Non-pressured speech, spontaneous with regular rate and rhythm, normal volume and prosody. No prolonged speech latency or dysarthria. Mood is ?depressed,? affect is dysphoric. Endorses SI but currently denies plan or intent. Denies SIB/HI upon inquiry. Denies A/VH or delusional thought content. Thoughts are coherent, organized. No known cognitive or memory impairment. Insight/ Judgment fair and adequate. Diagnostics Vital Signs (24Hr): Vital Signs - 24 hr 07/20/21 17:28 07/20/21 18:00 07/21/21 06:00 Temperature 98 F 98.9 F 98.6 F Pulse Rate 72 63 56 Respiratory Rate 15 18 Blood Pressure 134/76 139/83 136/72 Pulse Oximetry 96 98 Body Mass Index 25.0 Labs Results: 07/19/21 22:38 07/19/21 22:38 Labs: Laboratory Results - last 48 hr 07/19/21 07/19/21 07/19/21 22:29 22:38 22:38 WBC 7.0 RBC 4.42 L Hgb 12.6 L Hct 37.6 L MCV 85.1 MCH 28.5 MCHC 33.5 RDW 13.6 Plt Count 221 D MPV 8.6 L Immature Gran % (Auto) 0.1 Neut % (Auto) 70.7 Lymph % (Auto) 16.6 L Sandoval % (Auto) 11.0 Eos % (Auto) 1.0 Baso % (Auto) 0.6 Lymph # (Auto) 1.2 Sandoval # (Auto) 0.8 Eos # (Auto) 0.1 Baso # (Auto) 0.0 Abs Immat Gran (auto) 0.01 Absolute Neuts (auto) 4.9 Absolute Nucleated RBC 0.000 Nucleated RBC % (auto) 0.0 Sodium 140 Potassium 3.3 D Chloride 105 Carbon Dioxide 25 Anion Gap 13 BUN 10 Creatinine 0.78 Estim Creat Clear Calc 122.4 Estimated GFR > 60 Random Glucose 90 Calcium 9.0 D Magnesium 1.8 Total Bilirubin 0.4 Direct Bilirubin 0.2 AST 70 H ALT 93 H Alkaline Phosphatase 74 Total Creatine Kinase 973 H Total Protein 7.3 Albumin 4.1 Salicylates < 5.0 L Urine Opiates Screen Urine Fentanyl Screen Acetaminophen < 1 Ur Barbiturates Screen Ur Phencyclidine Scrn Ur Amphetamines Screen U Benzodiazepines Scrn Urine Cocaine Screen U Marijuana (THC) Screen Ethyl Alcohol COVID-19 (MARILYN) Negative COVID-19 Clin Com See Note 07/19/21 07/20/21 22:38 04:55 WBC RBC Hgb Hct MCV MCH MCHC RDW Plt Count MPV Immature Gran % (Auto) Neut % (Auto) Lymph % (Auto) Sandoval % (Auto) Eos % (Auto) Baso % (Auto) Lymph # (Auto) Sandoval # (Auto) Eos # (Auto) Baso # (Auto) Abs Immat Gran (auto) Absolute Neuts (auto) Absolute Nucleated RBC Nucleated RBC % (auto) Sodium Potassium Chloride Carbon Dioxide Anion Gap BUN Creatinine Estim Creat Clear Calc Estimated GFR Random Glucose Calcium Magnesium Total Bilirubin Direct Bilirubin AST ALT Alkaline Phosphatase Total Creatine Kinase Total Protein Albumin Salicylates Urine Opiates Screen POSITIVE H Urine Fentanyl Screen POSITIVE H Acetaminophen Ur Barbiturates Screen Not Detected Ur Phencyclidine Scrn Not Detected Ur Amphetamines Screen Not Detected U Benzodiazepines Scrn Not Detected Urine Cocaine Screen POSITIVE H U Marijuana (THC) Screen POSITIVE H Ethyl Alcohol < 10 COVID-19 (MARILYN) COVID-19 Clin Com Imaging Radiology Impressions: ITS Impressions Face CT 07/19/21 21:27 IMPRESSION: 1. Limited evaluation in some regions due to patient motion artifact. 2. No acute intracranial findings identified. 3. No facial fracture identified. Right supraorbital soft tissue swelling. 4. No acute findings identified in the cervical spine. Chronic and degenerative changes as noted above. Cervical Spine CT 07/19/21 21:28 IMPRESSION: 1. Limited evaluation in some regions due to patient motion artifact. 2. No acute intracranial findings identified. 3. No facial fracture identified. Right supraorbital soft tissue swelling. 4. No acute findings identified in the cervical spine. Chronic and degenerative changes as noted above. Head CT 07/19/21 21:28 IMPRESSION: 1. Limited evaluation in some regions due to patient motion artifact. 2. No acute intracranial findings identified. 3. No facial fracture identified. Right supraorbital soft tissue swelling. 4. No acute findings identified in the cervical spine. Chronic and degenerative changes as noted above. Chest X-Ray 07/19/21 21:29 IMPRESSION: 1. Trace right-sided pleural effusion versus pleural thickening. 2. No focal airspace consolidation. Medications Medications Current Medications Acetaminophen (Acetaminophen 325 Mg Tablet) 650 mg PO Q6H PRN PRN Reason: Headache/Pain Mild Scale (1-3) Al Hydroxide/Mg Hydroxide (Magnesium Hydrox/Alum Hydrox 30 Ml Oral.Susp) 30 ml PO Q6H PRN PRN Reason: Heartburn/Nausea Albuterol Sulfate (Albuterol Sulfate 90 Mcg 8 Gm Inhaler) 2 puff INHALE RQ6H PRN PRN Reason: asthma Bupropion HCl (Bupropion Hcl Xl 300 Mg Tab.Er.24h) 300 mg PO DAILY [facility] Last Admin: 07/21/21 08:35 Dose: 300 mg Documented by: Clonidine HCl (Clonidine Hcl 0.1 Mg Tablet) 0.1 mg PO TID PRN; Protocol PRN Reason: hyperarousal, withdrawal Fluticasone Propionate (Fluticasone Propionate 250 Mcg Blst.W.Dev) 2 puff INHALE RBID [facility] Last Admin: 07/21/21 09:18 Dose: Not Given Documented by: Gabapentin (Gabapentin 400 Mg Capsule) 800 mg PO TID [facility] Last Admin: 07/21/21 08:36 Dose: 800 mg Documented by: Hydroxyzine HCl (Hydroxyzine Hcl 25 Mg Tablet) 25 mg PO BID PRN PRN Reason: Anxiety Ibuprofen (Ibuprofen 800 Mg Tablet) 800 mg PO Q8H PRN PRN Reason: mod-severe pain Magnesium Hydroxide (Milk Of Magnesia 30 Ml Oral.Susp) 30 ml PO DAILY PRN PRN Reason: Constipation Nicotine Polacrilex (Nicotine Polacrilex 2 Mg Gum) 4 mg BUCCAL Q2H PRN PRN Reason: Nicotine Cravings Last Admin: 07/20/21 19:54 Dose: 4 mg Documented by: Ondansetron HCl (Ondansetron Odt 4 Mg Tab.Rapdis) 4 mg TRANSLINGU Q8H PRN PRN Reason: nausea Quetiapine Fumarate (Quetiapine Fumarate 200 Mg Tablet) 200 mg PO BEDTIME [facility] Last Admin: 07/20/21 20:11 Dose: 200 mg Documented by: Allergies Allergies Allergy/AdvReac Type Severity Reaction Status Date / Time haloperidol [From HALDOL] AdvReac Intermediate LOCK JAW Verified 07/19/21 21:31 olanzapine [From ZYPREXA] AdvReac Unknown PT REPORTS Verified 07/19/21 21:31 FEELS LIKE I AM ON AN ACID TRIP Assessment & Plan Assessment & Plan (1) MDD (major depressive disorder), recurrent episode, moderate: Status: Acute Code(s): F33.1 - Major depressive disorder, recurrent, moderate (2) ADHD (attention deficit hyperactivity disorder): Status: Acute Code(s): F90.9 - Attention-deficit hyperactivity disorder, unspecified type (3) Opioid use disorder, severe, dependence: Status: Acute Code(s): F11.20 - Opioid dependence, uncomplicated Assessment and Plan: Moses is a 35 yo male who carries a dx of ADHD, Opioid Use DO, and MDD recurrent. He arrived to [facility] ED on 07/19/21 after being found unresponsive outside with facial trauma, intentionally OD on heroin as a suicide attempt. No current MAT, would like to restart suboxone. He is not quite in withdrawal yet, says he is starting to get the yawns. Plan: Pt reports positive benefit on med regimen from [facility] on M5 in 02/2021. He was recently discharged from section 35 but has had difficulty filling script for suboxone and adderall. States has been adherent on gabapentin 800 mg TID, bupropion XL 300 mg daily, seroquel 200 mg QHS, and hydroxyzine 25 mg BID, will continue. Pt reports he does not want to take trazodone, does not like the effect. Asks to restart adderall 30 mg BID, will defer to primary treatment t eam. Will start comfort meds of clonidine 0.1 mg TID PRN, zofran PRN. Monitor response to medications. Monitor for safety in the milieu. Discharge on stabilization. Patient seen. Chart reviewed. Discussed with team. Obtain collateral contact info?as needed 07/21: Add suboxone and Adderall. COWS noted I spent minutes with the patient and/or on the patient floor today, greater than?50% of which was spent counseling/coordinating care. Reason for contiued inpatient stay Substantial Risk for: harm to self and med/psych decompensation
[2021-07-21 11:21] VITALS: PULSE 75
[2021-07-21] MEDS: Buprenorphine/Naloxone 4/1 mg FILM 1 FILM SUBLINGUAL ×2 (12:17→13:34)
[2021-07-21] MEDS: Dextroamphetamine Sulfate 5 MG TABLET 20 MG PO (13:33)
[2021-07-21] MEDS: Acetaminophen 325 MG TABLET 650 MG PO ×2 (13:33→20:14)
[2021-07-21] MEDS: Nicotine 21 MG PATCH.TD24 TRANSDERMA (13:33)
[2021-07-21 14:15] VITALS: PULSE 92
[2021-07-21] MEDS: Nicotine Polacrilex 2 MG GUM 4 MG BUCCAL ×3 (14:33→19:34)
[2021-07-21] MEDS: Ibuprofen 800 MG TABLET PO (16:54)
[2021-07-21] MEDS: hydrOXYzine HCL 25 MG TABLET PO ×2 (16:54→22:27)
[2021-07-21 20:00] VITALS: BP 135/86; PULSE 91; TEMP 36.9
[2021-07-21] MEDS: Fluticasone Propionate 250 MCG BLST.W.DEV 2 PUFF INHALE (20:06)
[2021-07-21] MEDS: QUEtiapine Fumarate 200 MG TABLET PO (20:14)
[2021-07-22] MEDS: Nicotine Polacrilex 2 MG GUM 4 MG BUCCAL ×5 (05:32→19:59)
[2021-07-22 06:00] VITALS: BP 133/88; PULSE 81; TEMP 36.2; O2SAT 100
[2021-07-22] MEDS: buPROPion HCl XL 300 MG TAB.ER.24H PO (07:58)
[2021-07-22] MEDS: Gabapentin 400 MG CAPSULE 800 MG PO ×3 (07:58→20:00)
[2021-07-22] MEDS: Dextroamphetamine Sulfate 5 MG TABLET 20 MG PO ×2 (07:58→13:38)
[2021-07-22] MEDS: Nicotine 21 MG PATCH.TD24 TRANSDERMA (07:58)
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
[2021-07-22] MEDS: Buprenorphine/Naloxone 8/2 mg FILM 1 FILM SUBLINGUAL (09:28)
[2021-07-22 16:10] VITALS: BP 135/76; PULSE 74; TEMP 36.9
[2021-07-22] MEDS: Ibuprofen 800 MG TABLET PO (16:48)
[2021-07-22 16:57] VITALS: BP 135/76; PULSE 74
[2021-07-22] MEDS: cloNIDine HCL 0.1 MG TABLET PO (16:57)
[2021-07-22] MEDS: Acetaminophen 325 MG TABLET 650 MG PO (20:00)
[2021-07-22] MEDS: QUEtiapine Fumarate 200 MG TABLET PO (20:01)
[2021-07-22] MEDS: Fluticasone Propionate 250 MCG BLST.W.DEV 2 PUFF INHALE (20:59)
[2021-07-23 06:00] VITALS: BP 117/71; PULSE 52; RESP 18; TEMP 36.3; O2SAT 98
[2021-07-23] MEDS: Nicotine 21 MG PATCH.TD24 TRANSDERMA (08:24)
[2021-07-23] MEDS: Dextroamphetamine Sulfate 5 MG TABLET 20 MG PO ×2 (08:25→13:05)
[2021-07-23] MEDS: Gabapentin 400 MG CAPSULE 800 MG PO ×3 (08:25→21:41)
[2021-07-23] MEDS: buPROPion HCl XL 300 MG TAB.ER.24H PO (08:26)
[2021-07-23] MEDS: Fluticasone Propionate 250 MCG BLST.W.DEV 2 PUFF INHALE (08:38)
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
[2021-07-23] MEDS: Buprenorphine/Naloxone 8/2 mg FILM 1 FILM SUBLINGUAL (09:29)
[2021-07-23] MEDS: Nicotine Polacrilex 2 MG GUM 4 MG BUCCAL ×5 (10:42→21:42)
--- NOTE | 2021-07-23 12:00 | MHC.RECOVRN ---
Met with pt to f/u after consult placed to Addiction Medicine for pt to restart Suboxone. Pt has already been ordered 8/2mg film in the morning and 4/1 mg film in the afternoon. Pt reports having been on bup while [facility] (pt [facility] self). Pt dc on 07/12 and facility did not send Suboxone script to pharmacy. Pt states I went a couple days but then I started using. Prior to arrival at [facility], pt reports injecting 20 bags which resulted in overdose. Pt initially inquired about methadone while inpatient at [facility] but was told [facility] didn't do that. Pt was agreeable to restart Suboxone. Pt has hx of methadone, 85 mg at [facility], and is contemplating returning to methadone due to chronic knee pain as well as OUD. Pt reports feeling w/d symptoms in the evening, including hot/cold flashes. Discussed MOUD and educated pt regarding ability to transition to methadone or adjust Suboxone dose while inpatient. Pt would like time to decide. Pt provided with information and resources. Will f/u later today. Discussed with Daphney Mcgovern APRN.
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
[2021-07-23] MEDS: Ferrous Sulfate 324 MG TABLET.DR PO (13:23)
[2021-07-23] MEDS: Buprenorphine/Naloxone 4/1 mg FILM 1 FILM SUBLINGUAL (13:23)
[2021-07-23] MEDS: Acetaminophen 325 MG TABLET 650 MG PO (15:20)
[2021-07-23] MEDS: Hydrocortisone 1 % Cream 28.35 GM TUBE 1 APPL TOPICAL (16:51)
[2021-07-23 18:00] VITALS: BP 155/86; PULSE 77; TEMP 35.9; O2SAT 100
--- NOTE | 2021-07-23 20:42 | P.EN_ITS ---
Event Note Date of Service: 07/23/21 Event Note: Addiction Brief note: Patient seen by recovery support RN earlier and reported he wanted to transition from suboxone to methadone Currently at 12mg Suboxone QD. Previously on methadone outpatient Interview brief as patient somewhat irritable Plan: -patient undecided regarding transition. Advised him that if he decided he wanted to transition to methadone, then he could decline AM suboxone dose and this job specification writer will follow up and start methadone shortly after.
[2021-07-23] MEDS: QUEtiapine Fumarate 300 MG TABLET PO (21:42)
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
[2021-07-24 06:00] VITALS: BP 123/69; PULSE 118; TEMP 36; O2SAT 99
[2021-07-24] MEDS: Gabapentin 400 MG CAPSULE 800 MG PO ×3 (08:07→20:18)
[2021-07-24] MEDS: Nicotine 21 MG PATCH.TD24 TRANSDERMA (08:07)
[2021-07-24] MEDS: Buprenorphine/Naloxone 8/2 mg FILM 1 FILM SUBLINGUAL ×2 (08:07→16:34)
[2021-07-24] MEDS: Multivitamin TABLET 1 TAB PO (08:07)
[2021-07-24] MEDS: buPROPion HCl XL 300 MG TAB.ER.24H PO (08:07)
[2021-07-24] MEDS: Ferrous Sulfate 324 MG TABLET.DR PO (08:07)
[2021-07-24] MEDS: Hydrocortisone 1 % Cream 28.35 GM TUBE 1 APPL TOPICAL (08:09)
[2021-07-24 08:57] LABS: Cholesterol 147 mg/dL; HDL Cholesterol 43 mg/dL; LDL Cholesterol Calculated 55 mg/dl; Triglycerides 245 mg/dL
[2021-07-24] MEDS: Dextroamphetamine Sulfate 5 MG TABLET 20 MG PO (08:58)
[2021-07-24] MEDS: Nicotine Polacrilex 2 MG GUM 4 MG BUCCAL ×3 (09:01→17:43)
[2021-07-24 09:18] LABS: Thyroid Stimulating Hormone 1.94 uIU/mL (0.32-4.0)
[2021-07-24 09:27] LABS: Estimated Average Glucose 103 mg/dL; Hemoglobin A1c % 5.2 %
[2021-07-24 09:32] LABS: Folate 12.8 ng/mL (> or = 4.0); Vitamin B12 635 pg/mL (200-900)
[2021-07-24] MEDS: Dextroamphetamine Sulfate 5 MG TABLET 30 MG PO (13:52)
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
[2021-07-24] MEDS: QUEtiapine Fumarate 300 MG TABLET PO (20:18)
[2021-07-24] MEDS: Fluticasone Propionate 250 MCG BLST.W.DEV 2 PUFF INHALE (20:25)
[2021-07-25] MEDS: Nicotine 21 MG PATCH.TD24 TRANSDERMA (08:34)
[2021-07-25] MEDS: buPROPion HCl XL 300 MG TAB.ER.24H PO (08:35)
[2021-07-25] MEDS: Multivitamin TABLET 1 TAB PO (08:35)
[2021-07-25] MEDS: Ferrous Sulfate 324 MG TABLET.DR PO (08:35)
[2021-07-25] MEDS: Gabapentin 400 MG CAPSULE 800 MG PO ×3 (08:35→21:11)
[2021-07-25 09:14] VITALS: BP 111/68; PULSE 65; TEMP 36.4; O2SAT 96
[2021-07-25] MEDS: Dextroamphetamine Sulfate 5 MG TABLET 30 MG PO ×2 (09:39→13:22)
[2021-07-25] MEDS: Buprenorphine/Naloxone 8/2 mg FILM 1 FILM SUBLINGUAL ×2 (09:39→16:21)
[2021-07-25] MEDS: Nicotine Polacrilex 2 MG GUM 4 MG BUCCAL ×5 (10:18→23:21)
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
[2021-07-25] MEDS: QUEtiapine Fumarate 300 MG TABLET PO (21:09)
[2021-07-25 21:10] VITALS: BP 138/82; PULSE 105; TEMP 36.9
[2021-07-25] MEDS: Prazosin HCL 1 MG CAPSULE PO (21:10)
[2021-07-25] MEDS: Albuterol Sulfate 90 MCG 8 GM INHALER 2 PUFF INHALE (21:14)
[2021-07-26 06:00] VITALS: BP 114/66; PULSE 76; RESP 18; TEMP 37.1; O2SAT 97
[2021-07-26] MEDS: buPROPion HCl XL 150 MG TAB.ER.24H PO (09:42)
[2021-07-26] MEDS: Nicotine 21 MG PATCH.TD24 TRANSDERMA (09:42)
[2021-07-26] MEDS: Multivitamin TABLET 1 TAB PO (09:42)
[2021-07-26] MEDS: Gabapentin 400 MG CAPSULE 800 MG PO ×3 (09:42→20:36)
[2021-07-26] MEDS: Ferrous Sulfate 324 MG TABLET.DR PO (09:42)
[2021-07-26] MEDS: Dextroamphetamine Sulfate 5 MG TABLET 30 MG PO ×2 (09:52→13:52)
[2021-07-26] MEDS: Buprenorphine/Naloxone 8/2 mg FILM 1 FILM SUBLINGUAL ×2 (09:57→16:13)
[2021-07-26] MEDS: Nicotine Polacrilex 2 MG GUM 4 MG BUCCAL ×4 (13:53→22:33)
[2021-07-26 16:10] VITALS: BP 124/76; PULSE 104; TEMP 36.6
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
[2021-07-26] MEDS: QUEtiapine Fumarate 300 MG TABLET PO (20:41)
[2021-07-26 20:42] VITALS: BP 139/79; PULSE 106
[2021-07-26] MEDS: Prazosin HCL 1 MG CAPSULE PO (20:42)
[2021-07-27 06:00] VITALS: BP 120/59; PULSE 76; RESP 18; TEMP 36.7; O2SAT 97
[2021-07-27] MEDS: Ferrous Sulfate 324 MG TABLET.DR PO (09:56)
[2021-07-27] MEDS: Multivitamin TABLET 1 TAB PO (09:56)
[2021-07-27] MEDS: buPROPion HCl XL 150 MG TAB.ER.24H PO (09:57)
[2021-07-27] MEDS: Gabapentin 400 MG CAPSULE 800 MG PO ×3 (09:57→19:58)
[2021-07-27] MEDS: Nicotine 21 MG PATCH.TD24 TRANSDERMA (09:57)
[2021-07-27] MEDS: Dextroamphetamine Sulfate 5 MG TABLET 30 MG PO ×2 (10:27→13:33)
[2021-07-27] MEDS: Buprenorphine/Naloxone 8/2 mg FILM 1 FILM SUBLINGUAL ×2 (10:28→17:07)
[2021-07-27] MEDS: Nicotine Polacrilex 2 MG GUM 4 MG BUCCAL ×3 (12:04→18:29)
[2021-07-27 18:00] VITALS: BP 135/82; PULSE 91; RESP 16; TEMP 35.9; O2SAT 99
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
[2021-07-27 19:57] VITALS: BP 109/86; PULSE 78
[2021-07-27] MEDS: Prazosin HCL 1 MG CAPSULE PO (19:57)
[2021-07-27] MEDS: QUEtiapine Fumarate 300 MG TABLET PO (19:58)
[2021-07-27] MEDS: Fluticasone Propionate 250 MCG BLST.W.DEV 2 PUFF INHALE (20:19)
[2021-07-28 06:00] VITALS: BP 113/59; PULSE 81; RESP 18; TEMP 36.3; O2SAT 97
[2021-07-28] MEDS: buPROPion HCl XL 150 MG TAB.ER.24H PO (09:25)
[2021-07-28] MEDS: Dextroamphetamine Sulfate 5 MG TABLET 30 MG PO ×2 (09:25→13:20)
[2021-07-28] MEDS: Gabapentin 400 MG CAPSULE 800 MG PO ×3 (09:25→20:18)
[2021-07-28] MEDS: Multivitamin TABLET 1 TAB PO (09:25)
[2021-07-28] MEDS: Nicotine 21 MG PATCH.TD24 TRANSDERMA (09:25)
[2021-07-28] MEDS: Ferrous Sulfate 324 MG TABLET.DR PO (09:25)
[2021-07-28] MEDS: Buprenorphine/Naloxone 8/2 mg FILM 1 FILM SUBLINGUAL ×2 (09:26→16:43)
[2021-07-28] MEDS: Nicotine Polacrilex 2 MG GUM 4 MG BUCCAL ×4 (12:26→21:21)
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
[2021-07-28] MEDS: hydrOXYzine HCL 25 MG TABLET PO (19:58)
[2021-07-28] MEDS: Fluticasone Propionate 250 MCG BLST.W.DEV 2 PUFF INHALE (20:12)
[2021-07-28 20:19] VITALS: BP 126/86; PULSE 96
[2021-07-28] MEDS: QUEtiapine Fumarate 300 MG TABLET PO (20:19)
[2021-07-28] MEDS: Prazosin HCL 1 MG CAPSULE PO (20:19)
[2021-07-29 06:00] VITALS: BP 115/63; PULSE 73; RESP 18; TEMP 36.6; O2SAT 97
[2021-07-29] MEDS: Dextroamphetamine Sulfate 5 MG TABLET 30 MG PO ×2 (09:00→13:24)
[2021-07-29] MEDS: Multivitamin TABLET 1 TAB PO (09:01)
[2021-07-29] MEDS: Gabapentin 400 MG CAPSULE 800 MG PO ×3 (09:01→20:49)
[2021-07-29] MEDS: Nicotine 21 MG PATCH.TD24 TRANSDERMA (09:01)
[2021-07-29] MEDS: Ferrous Sulfate 324 MG TABLET.DR PO (09:01)
[2021-07-29] MEDS: buPROPion HCl XL 150 MG TAB.ER.24H PO (09:22)
[2021-07-29] MEDS: Buprenorphine/Naloxone 8/2 mg FILM 1 FILM SUBLINGUAL ×2 (09:46→15:59)
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
[2021-07-29] MEDS: Nicotine Polacrilex 2 MG GUM 4 MG BUCCAL ×4 (13:24→20:49)
[2021-07-29 16:41] VITALS: BP 136/77; PULSE 90; RESP 16; TEMP 36.6; O2SAT 100
[2021-07-29] MEDS: Fluticasone Propionate 250 MCG BLST.W.DEV 2 PUFF INHALE (20:44)
[2021-07-29 20:47] VITALS: BP 127/77; PULSE 85
[2021-07-29 20:49] VITALS: BP 127/77; PULSE 85
[2021-07-29] MEDS: Prazosin HCL 1 MG CAPSULE PO (20:49)
[2021-07-29] MEDS: QUEtiapine Fumarate 300 MG TABLET PO (20:49)
[2021-07-30 06:00] VITALS: BP 112/56; PULSE 83; RESP 18; TEMP 36.2; O2SAT 98
[2021-07-30] MEDS: Fluticasone Propionate 250 MCG BLST.W.DEV 2 PUFF INHALE ×2 (09:55→21:45)
[2021-07-30] MEDS: Dextroamphetamine Sulfate 5 MG TABLET 30 MG PO ×2 (09:56→14:13)
[2021-07-30] MEDS: Gabapentin 400 MG CAPSULE 800 MG PO ×3 (09:58→20:37)
[2021-07-30] MEDS: buPROPion HCl XL 150 MG TAB.ER.24H PO (09:58)
[2021-07-30] MEDS: Multivitamin TABLET 1 TAB PO (09:59)
[2021-07-30] MEDS: Ferrous Sulfate 324 MG TABLET.DR PO (09:59)
[2021-07-30] MEDS: Nicotine 21 MG PATCH.TD24 TRANSDERMA (10:00)
[2021-07-30] MEDS: Buprenorphine/Naloxone 8/2 mg FILM 1 FILM SUBLINGUAL ×2 (10:49→16:00)
[2021-07-30] MEDS: Nicotine Polacrilex 2 MG GUM 4 MG BUCCAL ×4 (11:34→20:40)
[2021-07-30 16:00] VITALS: BP 145/65; PULSE 94; TEMP 36.5
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
[2021-07-30 20:35] VITALS: BP 135/80; PULSE 87
[2021-07-30 20:37] VITALS: BP 135/80; PULSE 87
[2021-07-30] MEDS: QUEtiapine Fumarate 300 MG TABLET PO (20:37)
[2021-07-30] MEDS: Prazosin HCL 1 MG CAPSULE PO (20:37)
[2021-07-30] MEDS: hydrOXYzine HCL 25 MG TABLET PO (20:37)
[2021-07-31 06:00] VITALS: BP 115/57; PULSE 69; RESP 18; TEMP 36.2; O2SAT 95
[2021-07-31] MEDS: buPROPion HCl XL 150 MG TAB.ER.24H PO (09:07)
[2021-07-31] MEDS: Multivitamin TABLET 1 TAB PO (09:07)
[2021-07-31] MEDS: Dextroamphetamine Sulfate 5 MG TABLET 30 MG PO ×2 (09:07→13:06)
[2021-07-31] MEDS: Ferrous Sulfate 324 MG TABLET.DR PO (09:07)
[2021-07-31] MEDS: Nicotine 21 MG PATCH.TD24 TRANSDERMA (09:08)
[2021-07-31] MEDS: Gabapentin 400 MG CAPSULE 800 MG PO (09:08)
[2021-07-31] MEDS: Nicotine Polacrilex 2 MG GUM 4 MG BUCCAL ×2 (10:18→13:06)
[2021-07-31] MEDS: Buprenorphine/Naloxone 8/2 mg FILM 1 FILM SUBLINGUAL (10:18)
--- NOTE | 2021-07-31 20:45 | PM.PSYDC ---
DS: Providers Provider Date of Service: 07/31/21 Date of admission: 07/20/21 17:03 Date of discharge: 07/31/21 Primary care physician: Unknown Physician Admitting clinician: Mariela Ulloa Attending physician on admission: Jeff Brewer Consults: 07/20/21 19:32 Addiction Medicine Routine Consulting Provider: Daphney Mcgovern Reason for consultation: re-start suboxone, used 07/19 20:00 07/23/21 10:17 Consult to Hospitalist Routine Consulting Provider: Hospitalist Reason For Exam: R ear 07/23/21 10:49 Consult to General Surgery Routine Consulting Provider: Junior Carpenter Reason for consultation: R Ear Attending physician on discharge: Jeff Brewer Discharging clinician: Kaylynn Crook DS: Diagnosis Discharge Diagnosis (1) MDD (major depressive disorder), recurrent episode, moderate: Status: Acute (2) ADHD (attention deficit hyperactivity disorder): Status: Acute (3) Opioid use disorder, severe, dependence: Status: Acute DS: Medications Discharge Medications Home Medications: Previous Rx's Medication Instructions Recorded albuterol sulfate 90 mcg/actuation 2 puff INHALATION RQ6H PRN #10 g 07/31/21 aerosol inhaler (Ventolin HFA) buprenorphine 8 mg-naloxone 2 mg 1 film BUCCAL 0900,1600 #7 ea 07/31/21 sublingual film (Suboxone) buprenorphine 8 mg-naloxone 2 mg 1 film SUBLINGUAL 0900,1600 #7 ea 07/31/21 sublingual film (Suboxone) bupropion HCl 100 mg tablet,12 hr 1 tab PO QAM #14 tab 07/31/21 sustained-release dextroamphetamine 30 mg tablet 30 mg PO BID #28 tab 07/31/21 (Zenzedi) ferrous sulfate 324 mg (65 mg 324 mg PO DAILY #30 tab 07/31/21 iron) tablet,delayed release fluticasone propionate 250 2 puff INHALATION RBID #1 ea 07/31/21 mcg/actuation blister powder for inhalation (Flovent Diskus) gabapentin 400 mg capsule 800 mg PO TID #42 cap 07/31/21 multivitamin (Daily-Grecia) 1 tab PO DAILY #30 tab 07/31/21 nicotine 21 mg/24 hr daily 21 mg TRANSDERMAL DAILY #30 ea 07/31/21 transdermal patch polyvinyl alcohol 1.4 % eye drops 2 drp OPHTHALMIC (EYE) Q4H PRN #10 07/31/21 (Artificial Tears (polyvinyl ml alcohol)) prazosin 1 mg capsule 1 mg PO BEDTIME #14 cap 07/31/21 quetiapine 300 mg tablet 300 mg PO BEDTIME #7 tab 07/31/21 Mental Status Exam Mental Status Exam Patient Appearance: Appropriate Patient Orientation: Person, Place, Time and Situation Level of Consciousness: Alert Patient Behavior: Talkative and Good Eye Contact Mood Description: Constricted Affect Description: Constricted Patient Cognition Impaired: No Ability to Follow Directions: Good Speech Pattern: Spontaneous Speech Memory Description: Episodic Impaired Hallucinations: None Delusions: Not Present Thought Process: Distracted Thought Content: positive for [place] and positive for Suicidal Ideation (denies) Depressive Symptoms: Increased Irritability and Thoughts of /Suicide (denies) Judgement: Fair Data Imaging Diagnostic Imaging Impressions Face CT 07/19/21 21:27 IMPRESSION: 1. Limited evaluation in some regions due to patient motion artifact. 2. No acute intracranial findings identified. 3. No facial fracture identified. Right supraorbital soft tissue swelling. 4. No acute findings identified in the cervical spine. Chronic and degenerative changes as noted above. Cervical Spine CT 07/19/21 21:28 IMPRESSION: 1. Limited evaluation in some regions due to patient motion artifact. 2. No acute intracranial findings identified. 3. No facial fracture identified. Right supraorbital soft tissue swelling. 4. No acute findings identified in the cervical spine. Chronic and degenerative changes as noted above. Head CT 07/19/21 21:28 IMPRESSION: 1. Limited evaluation in some regions due to patient motion artifact. 2. No acute intracranial findings identified. 3. No facial fracture identified. Right supraorbital soft tissue swelling. 4. No acute findings identified in the cervical spine. Chronic and degenerative changes as noted above. Chest X-Ray 07/19/21 21:29 IMPRESSION: 1. Trace right-sided pleural effusion versus pleural thickening. 2. No focal airspace consolidation. DS: Summary Hospital Course Hospital Course: Admission to adult psychiatry to address symptoms of recurrent severe major depression, and opiate use disorder-severe, currently on Suboxone. Pt reports this is OD# [id number], requiring Narcan [employer]. Pt reports recent discharge after Section XXX[place]. Reports upon discharge from incarceration he was unable to get prescriptions so attempted to use substances to self medicate. Regime re-established during hospitalization. Pt had wanted admit to [facility] however was rejected due to suicidality-being told he needs 30-60 days of stability prior to an admission. Care plan, medication regime and out patient plan of care prior to admission were reviewed. Education was provided regarding management of symptoms, medications and side effects. Nursing and social services manager worked extensively with patient on collateral contacts, plan of care, education regarding management of symptoms, medications and discharge planning. Time spent discussing smoking cessation with patient: 3 to 10 minutes Status at Discharge Cognitive/behavioral status at discharge: non-psychotic, non-suicidal Functional status at discharge: independent ambulation Overall status at discharge: patient is progressing back to baseline Time Spent with Patient Time attestation: Total time spent providing and/or coordinating discharge services: 35 Time spent: Greater than 30 minutes Discharge Plan Discharge Patient Disposition: Home, Self-Care Discharge Diagnosis: Recurrent Major Depression-Severe ADHD Opiate Use Disorder-Severe, Dependence. Suboxone Prescribed Referrals: [facility] [Other] - 08/07/21 10:00 am Raquel Gao MD [Physician] - 1 Week Discharge Medications: New prazosin 1 mg Capsule 1 mg PO BEDTIME Qty: 14 RF: 0 nicotine 21 mg/24 hr Patch 24 Hour 21 mg transdermal DAILY Qty: 30 RF: 0 albuterol sulfate [Ventolin HFA] 90 mcg/actuation Hfa Aerosol Inhaler 2 puff inhalation RQ6H PRN (Reason: asthma) Qty: 10 RF: 0 ferrous sulfate 324 mg (65 mg iron) Tablet,Delayed Release (Dr/Ec) 324 mg PO DAILY Qty: 30 RF: 0 multivitamin [Daily-Grecia] Tablet 1 tab PO DAILY Qty: 30 RF: 0 quetiapine 300 mg Tablet 300 mg PO BEDTIME Qty: 7 RF: 1 polyvinyl alcohol [Artificial Tears (polyvin alc)] 1.4 % Drops 2 drp ophthalmic (eye) Q4H PRN (Reason: Dry Eyes) Qty: 10 RF: 0 Flovent Diskus 250 mcg/actuation Blister With Device 2 puff inhalation RBID Qty: 1 RF: 0 dextroamphetamine [Zenzedi] 30 mg tablet 30 mg PO BID Qty: 28 RF: 0 Continued gabapentin 400 mg Capsule 800 mg PO TID Qty: 42 RF: 1 bupropion HCl 100 mg tablet sustained-release 12 hr 1 tab PO QAM Qty: 14 RF: 0 Discontinued hydroxyzine HCl 25 mg Tablet 25 mg PO BID PRN (Reason: Anxiety) Qty: 14 RF: 0 quetiapine 100 mg tablet 1 tab PO BEDTIME RF: 0 No Action buprenorphine-naloxone [Suboxone] 8-2 mg Film 1 film sublingual 0900,1600 Qty: 3 RF: 0 Discharge Orders: Discharge Order (Routine); Ordered 07/31/21 Ordered By: Kaylynn Crook Diet: advance to usual diet Activity on Discharge: As tolerated Stand Alone Forms: Patient Portal Discharge page Care Plan Goals: Mood Stabilization Sobriety Health Concerns: Recurrent Major Depression ADHD Opiate Use Asdjkxab-Moozgiwrgw-Rnfyaebv prescribed Plan of Treatment: Attend all appointments Take medications as directed Suboxone will be sent to [facility] on 07/31/21 and 08/03/21 prior to your appointment with [facility] on 08/07/21. Refills for meds will be at [facility]. prior to your appointment with Dr. Nguyen. If you have problems or questions with medications please call [phone]. Dr. Nguyen will meet with you in the [place] Office on 08/14/21 at 11:30 a.m. Assessment: Alert, non-suicidal, non-psychotic. Discussed discharge with pt's sister Griselda, , who reports she will provide housing for Moses until he is assigned public housing which has been arranged with [facility]. Discharge Date/Time: 07/31/21 14:35
--- NOTE | 2021-08-01 17:43 | P.EN_ITS ---
Event Note Date of Service: 08/01/21 Event Note: Team reports pt came to the unit today to report that he was unable to fill Suboxone Rx. Call to [facility] pharmacy who report pt did not bring his prescription into be filled, however, electronic Rx for Adderall requires [facility]. This was completed today and sent to [facility]. Messages left for pt at [phone] and [phone] to discuss details of the problem so a resolution could be obtained. No return call by [id number].
--- NOTE | 2021-08-01 17:43 | PM.EVENT ---
Event Note Date of Service: 08/01/21 Event Note: Team reports pt came to the unit today to report that he was unable to fill Suboxone Rx. Call to [facility] pharmacy who report pt did not bring his prescription into be filled, however, electronic Rx for Adderall requires [facility]. This was completed today and sent to [facility]. Messages left for pt at [phone] and [phone] to discuss details of the problem so a resolution could be obtained. No return call by [id number].
== END 2021-07-31 14:35 | disposition home or self-care (01) | DRG 751 ==
LOC: HO.ED 07-20 04:39 → HO.PM5 07-20 17:09
PROVIDERS: Clinical Nurse Specialist Psychiatric/Mental Health, Adult; Admitting Provider Registered Nurse; Emergency Provider Emergency Medicine; Visit Provider Registered Nurse
DX: F33.1 Major depressive disorder, recurrent, moderate (principal); R45.851 Suicidal ideations; F11.20 Opioid dependence, uncomplicated; F17.210 Nicotine dependence, cigarettes, uncomplicated; F90.9 Attention-deficit hyperactivity disorder, unspecified type; S00.411A Abrasion of right ear, initial encounter; S00.81XA Abrasion of other part of head, initial encounter; X58.XXXA Exposure to other specified factors, initial encounter; Y92.9 Unspecified place or not applicable; Y99.9 Unspecified external cause status; Z91.51 Personal history of suicidal behavior; Z20.822 Contact with and (suspected) exposure to COVID-19; Z71.6 Tobacco abuse counseling; Z79.51 Long term (current) use of inhaled steroids; Z79.899 Other long term (current) drug therapy
CPT/HCPCS: 36415; 70450; 70486; 71045; 72125; 80048; 80061; 80076; 80143; 80179; 80307; 82077; 82550; 82607; 82746; 83036; 83735; 84443; 85025; 87635; 90471; 90715; 93005; 96361; 96374; 96375; 99285; 99291; J2060; J2405

== ENCOUNTER 2021-08-04 14:16 | Emergency (ER) | payer MEDICAID, SELFPAY ==
[2021-08-04 15:01] VITALS: BP 109/67; PULSE 89; RESP 18; TEMP 36.8; O2SAT 95; BMI 25.8
--- NOTE | 2021-08-04 16:13 | ED_ITS ---
HPI - General Adult General Chief complaint: General Medical Stated complaint: MEDICATION Time Seen by Provider: 08/04/21 14:23 Source: patient Mode of arrival: ambulatory Limitations: no limitations History of Present Illness HPI narrative: Patient is here today inquiring refill on his Suboxone and his Adderall. Patient was recently [facility] from [facility] and does not have a appointment with his psychiatrist told the of this month. Patient reports that he was supposed to get amphetamines sulfate 30 mg twice a day and he got a different prescription. He was supposed to also get Suboxone 04/23 does to take i t 1 film twice a day. Patient denies any SI or HI. Patient denies any other concerning symptoms. Will send him home with 10 day supply. Patient will follow-up with her psychiatrist next week. If he will have trouble feeling his script. Related Data Previous Rx's Medication Instructions Recorded albuterol sulfate 90 mcg/actuation 2 puff INHALATION RQ6H PRN #10 g 07/31/21 aerosol inhaler (Ventolin HFA) buprenorphine 8 mg-naloxone 2 mg 1 film BUCCAL 0900,1600 #7 ea 07/31/21 sublingual film (Suboxone) buprenorphine 8 mg-naloxone 2 mg 1 film SUBLINGUAL 0900,1600 #7 ea 07/31/21 sublingual film (Suboxone) bupropion HCl 100 mg tablet,12 hr 1 tab PO QAM #14 tab 07/31/21 sustained-release dextroamphetamine 30 mg tablet 30 mg PO BID #28 tab 07/31/21 (Zenzedi) ferrous sulfate 324 mg (65 mg 324 mg PO DAILY #30 tab 07/31/21 iron) tablet,delayed release fluticasone propionate 250 2 puff INHALATION RBID #1 ea 07/31/21 mcg/actuation blister powder for inhalation (Flovent Diskus) gabapentin 400 mg capsule 800 mg PO TID #42 cap 07/31/21 multivitamin (Daily-Grecia) 1 tab PO DAILY #30 tab 07/31/21 nicotine 21 mg/24 hr daily 21 mg TRANSDERMAL DAILY #30 ea 07/31/21 transdermal patch polyvinyl alcohol 1.4 % eye drops 2 drp OPHTHALMIC (EYE) Q4H PRN #10 07/31/21 (Artificial Tears (polyvinyl ml alcohol)) prazosin 1 mg capsule 1 mg PO BEDTIME #14 cap 07/31/21 quetiapine 300 mg tablet 300 mg PO BEDTIME #7 tab 07/31/21 amphetamine sulfate 10 mg tablet 30 mg PO BID #60 tab 08/04/21 amphetamine sulfate 15 mg 15 mg PO BID #40 tab 08/04/21 disintegrating tablet buprenorphine 8 mg-naloxone 2 mg 1 film BUCCAL BID@0900,1700 #20 ea 08/04/21 sublingual film (Suboxone) buprenorphine 8 mg-naloxone 2 mg 1 film BUCCAL BID@0900,1700 #30 ea 08/04/21 sublingual film (Suboxone) Allergies Allergy/AdvReac Type Severity Reaction Status Date / Time haloperidol [From HALDOL] AdvReac Intermediate LOCK JAW Verified 08/04/21 15:01 olanzapine [From ZYPREXA] AdvReac Unknown PT REPORTS Verified 08/04/21 15:01 FEELS LIKE I AM ON AN ACID TRIP Review of Systems Review of Systems: Constitutional : No Weight loss, No Fever, No Chills, No Night Sweats, No Fatigue, No Malaise ENT/Mouth : No Hearing loss, No Ear Pain, No Nasal Congestion, No Sinus Pain, No Hoarseness, No sore throat, No Rhinorrhea, No Swallowing Difficulty Eyes: No Eye Pain, No Swelling, No Redness, No Foreign Body, No Discharge, No Vision Changes Cardiovascular : No Chest Pain, No SOB, No Dyspnea on Exertion, No Orthopnea, No Edema, No Palpitations Respiratory : No Cough, No Sputum, No Wheezing, No Smoke Exposure, No Dyspnea Gastrointestinal : No Nausea, No Vomiting, No Diarrhea, No Constipation, No abdominal Pain, No Hematochezia, No Melena Genitourinary : no irregular bleeding, No Dysuria, No Urinary Frequency, No Hematuria, No Urinary Incontinence, No Urgency, No Flank Pain, No Urinary Flow Changes, No Hesitancy Musculoskeletal : No joint pain, No Myalgias, No Joint Swelling Skin : No Skin Lesions, No rash Neuro : No Weakness, No Numbness, No Paresthesias, No Loss of Consciousness, No Dizziness, No Headache Psych : No Anxiety/Panic, No Depression, No SI/HI/AH/VH, No Social Issues, Yes all other systems are reviewed and are negative [facility] Past Medical History Medical History (Updated 08/04/21 @ 16:27 by ASAF Castillo-BC) ADHD DVT (deep venous thrombosis) Endocarditis Eye contusion Hepatitis C IV drug abuse Left upper extremity deep vein thrombosis Mood disorder Multiple abrasions Opiate abuse, continuous Severe sepsis Surgical History History of left knee surgery S/P left knee arthroscopy Social History Social History Household Members: None Housing: House Do you presently have visiting nurse or other home services: No Alcohol intake: never Patient Tobacco Use Status: Current everyday Tobacco user Tobacco use type: Cigarette Cigarette Packs Per Day: 1 Cigarettes Per Day: 20.0 Years Smoked: 15 e-Cigarette/Vaping Use: Never Used Second Hand Smoke Exposure: Yes Substance Use Type: Crack/Cocaine, Marijuana and Opiates Advance Directives: No Advance Directives Information Provided: No service: No Sexual orientation: Straight/Heterosexual Physical Exam Vital Signs: Vital Signs: Last Vital Signs Temp 98.3 F 08/04/21 15:01 Pulse 89 08/04/21 15:01 Resp 18 08/04/21 15:01 BP 109/67 08/04/21 15:01 Pulse Ox 95 08/04/21 15:01 Body Mass Index 25.8 Const: General: healthy appearing, no acute distress and well developed Nutritional Appearance: well nourished Orientation/consciousness: patient oriented x3 HENMT: Head: Yes normal to inspection, Yes normocephalic and Yes atraumatic Face and sinus: Yes normal facial exam Mouth: Normal oral and palatal mucosa present Throat: Yes posterior oropharynx normal, Yes tonsils normal and Yes uvula midline Eyes: General: appearance normal, both eyes and all related structures Neck: Neck: Yes normal visual inspection, Yes full ROM and Yes trachea midline Thyroid: Thyroid normal Resp: Effort & Inspection: normal respiratory effort, able to speak in complete sentences, no tracheal deviation and symmetric chest movement Auscultation: clear to auscultation bilaterally Cardio: Jugular venous distension: no JVD Rate: regular rate Rhythm: regular rhythm Heart sounds: S1 normal heart sound present, S2 normal heart sound present, no gallops and no murmurs GI: Inspection: Yes normal to inspection and No distended Palpation (GI): Soft to palpation, not firm, nontender and No hepatosplenomegaly present Auscultation: normal bowel sounds : General: Yes no CVA tenderness Back/Spine/Pelvis: Back: no CVA tenderness Skin: General skin exam: elasticity normal, turgor normal and dry skin Neuro: General: patient oriented x3 Psych: Appearance: grossly normal Mental Status: mental status grossly normal Speech and movement: Normal speech and movement present Affect: normal affect Attitude: cooperative Thought process: Normal thought pr ocess present Thought content: Normal thought content present Insight: Good insight present (Psych) Judgement: Good judgement present (Psych) Discharge Plan Discharge Clinical Impression: Medication refill Patient Disposition: Home, Self-Care Instructions: Medicine Refill (ED) Additional Instructions: You were given scripts for your Adderall and your Suboxone. Please follow-up with your psychiatrist who prescribes that medications to you. Please return to emergency department if you have any concerning symptoms. Prescriptions: New buprenorphine-naloxone [Suboxone] 8-2 mg film 1 film buccal BID@0900,1700 Qty: 30 RF: 0 amphetamine sulfate 15 mg tablet,disintegrating 15 mg PO BID Qty: 40 RF: 0 buprenorphine-naloxone [Suboxone] 8-2 mg film 1 film buccal BID@0900,1700 Qty: 20 RF: 0 amphetamine sulfate 10 mg tablet 30 mg PO BID Qty: 60 RF: 0 No Action prazosin 1 mg Capsule 1 mg PO BEDTIME Qty: 14 RF: 0 nicotine 21 mg/24 hr Patch 24 Hour 21 mg transdermal DAILY Qty: 30 RF: 0 albuterol sulfate [Ventolin HFA] 90 mcg/actuation Hfa Aerosol Inhaler 2 puff inhalation RQ6H PRN (Reason: asthma) Qty: 10 RF: 0 ferrous sulfate 324 mg (65 mg iron) Tablet,Delayed Release (Dr/Ec) 324 mg PO DAILY Qty: 30 RF: 0 buprenorphine-naloxone [Suboxone] 8-2 mg Film 1 film sublingual 0900,1600 Qty: 7 RF: 0 multivitamin [Daily-Grecia] Tablet 1 tab PO DAILY Qty: 30 RF: 0 quetiapine 300 mg Tablet 300 mg PO BEDTIME Qty: 7 RF: 1 polyvinyl alcohol [Artificial Tears (polyvin alc)] 1.4 % Drops 2 drp ophthalmic (eye) Q4H PRN (Reason: Dry Eyes) Qty: 10 RF: 0 Flovent Diskus 250 mcg/actuation Blister With Device 2 puff inhalation RBID Qty: 1 RF: 0 dextroamphetamine [Zenzedi] 30 mg tablet 30 mg PO BID Qty: 28 RF: 0 gabapentin 400 mg Capsule 800 mg PO TID Qty: 42 RF: 1 bupropion HCl 100 mg tablet sustained-release 12 hr 1 tab PO QAM Qty: 14 RF: 0 buprenorphine-naloxone [Suboxone] 8-2 mg film 1 film buccal 0900,1600 Qty: 7 RF: 0 Interventions: ED Discharge Assessment Last Done: 08/04/21 16:28 Discharge Date/Time: 08/04/21 16:29
== END 2021-08-04 16:29 | disposition home or self-care (01) ==
PROVIDERS: Emergency Provider Internal Medicine; PCP Family Medicine
DX: Z76.0 Encounter for issue of repeat prescription (principal); F17.210 Nicotine dependence, cigarettes, uncomplicated; Z71.6 Tobacco abuse counseling; Z79.899 Other long term (current) drug therapy
CPT/HCPCS: 99283

== ENCOUNTER 2021-08-06 21:12 | Emergency (ER) | payer MEDICAID, SELFPAY ==
--- NOTE | 2021-08-06 21:17 | PC.NURSE ---
called pt to triage- he didnt answer, went to bathroom and called pt and he was in the bathroom.
[2021-08-06 21:28] VITALS: BP 138/81; PULSE 95; RESP 18; TEMP 36.8; O2SAT 95; BMI 24.3
--- NOTE | 2021-08-06 21:41 | ED_ITS ---
HPI - Psych General Chief Complaint: Psychiatric Symptoms Stated Complaint: SI Time Seen by Provider: 08/06/21 21:40 Source: patient Mode of arrival: ambulatory Limitations: no limitations History of Present Illness MD complaint: suicidal ideation, feels depressed and substance abuse Onset (ago): day(s) (3) Duration: constant and getting worse History of same: Yes Relieving factors: none Exacerbating factors: drug use Context: recent drug abuse and other (states he cannot get his suboxone filled and he's now using and now one is helping him) Associated psychiatric symptoms: depression and suicidal ideation Associated symptoms: denies other symptoms Treatments prior to arrival: none If self harm: admits thoughts of self harm Related Data Previous Rx's Medication Instructions Recorded albuterol sulfate 90 mcg/actuation 2 puff INHALATION RQ6H PRN #10 g 07/31/21 aerosol inhaler (Ventolin HFA) bupropion HCl 100 mg tablet,12 hr 1 tab PO QAM #14 tab 07/31/21 sustained-release dextroamphetamine 30 mg tablet 30 mg PO BID #28 tab 07/31/21 (Zenzedi) ferrous sulfate 324 mg (65 mg 324 mg PO DAILY #30 tab 07/31/21 iron) tablet,delayed release fluticasone propionate 250 2 puff INHALATION RBID #1 ea 07/31/21 mcg/actuation blister powder for inhalation (Flovent Diskus) gabapentin 400 mg capsule 800 mg PO TID #42 cap 07/31/21 multivitamin (Daily-Grecia) 1 tab PO DAILY #30 tab 07/31/21 nicotine 21 mg/24 hr daily 21 mg TRANSDERMAL DAILY #30 ea 07/31/21 transdermal patch polyvinyl alcohol 1.4 % eye drops 2 drp OPHTHALMIC (EYE) Q4H PRN #10 07/31/21 (Artificial Tears (polyvinyl ml alcohol)) prazosin 1 mg capsule 1 mg PO BEDTIME #14 cap 07/31/21 quetiapine 300 mg tablet 300 mg PO BEDTIME #7 tab 07/31/21 buprenorphine 8 mg-naloxone 2 mg 1 film SUBLINGUAL 0900,1600 #3 ea 08/06/21 sublingual film (Suboxone) Allergies Allergy/AdvReac Type Severity Reaction Status Date / Time haloperidol [From HALDOL] AdvReac Intermediate LOCK JAW Verified 08/06/21 21:28 olanzapine [From ZYPREXA] AdvReac Unknown PT REPORTS Verified 08/06/21 21:28 FEELS LIKE I AM ON AN ACID TRIP Review of Systems Review of Systems: Constitutional : No Fever, No Chills ENT/Mouth : No Ear Pain, No Nasal Congestion, No sore throat Eyes: No Eye Pain, No Swelling, No Redness Cardiovascular : No Chest Pain, No SOB Respiratory : No Cough, No Sputum, No Dyspnea Gastrointestinal : No Nausea, No Vomiting, No Diarrhea, No Hematochezia, No Melena Genitourinary : No Dysuria, No Urinary Frequency, No Hematuria Musculoskeletal : No Myalgias Skin : No Skin Lesions, No rash Neuro : No Weakness, No Numbness, No Paresthesias, No Dizziness, No Headache Psych : positive Anxiety, positive Depression, positive SI no HI Heme/Lymph: No Lymphadenopathy Endocrine : No Polyuria, No Polydipsia All other systems reviewed and are negative [facility] Past Medical History Medical History (Updated 08/06/21 @ 22:28 by Jennifer Osborn DO) ADHD DVT (deep venous thrombosis) Endocarditis Eye contusion Hepatitis C IV drug abuse Left upper extremity deep vein thrombosis Mood disorder Multiple abrasions Opiate abuse, continuous Severe sepsis Surgical History History of left knee surgery S/P left knee arthroscopy Social History Social History Household Members: None Housing: House Do you presently have visiting nurse or other home services: No Alcohol intake: never Patient Tobacco Use Status: Current everyday Tobacco user Tobacco use type: Cigarette Cigarette Packs Per Day: 1 Cigarettes Per Day: 20.0 Years Smoked: 15 e-Cigarette/Vaping Use: Never Used Second Hand Smoke Exposure: Yes Substance Use Type: Crack/Cocaine, Marijuana and Opiates Advance Directives: No Advance Directives Information Provided: Yes service: No Sexual orientation: Straight/Heterosexual Physical Exam Vital Signs: Vital Signs: Last Vital Signs Temp 98.2 F 08/06/21 21:28 Pulse 95 08/06/21 21:28 Resp 18 08/06/21 21:28 BP 138/81 08/06/21 21:28 Pulse Ox 95 08/06/21 21:28 Body Mass Index 24.3 Appearance: Alert. Oriented X3. No acute distress. Eyes: Pupils equal, round and reactive to light. ENT: Pharynx normal. Neck: Normal inspection. Neck supple. CVS: Normal heart rate and rhythm. Pulses normal. Respiratory: No respiratory distress. Breath sounds normal. Abdomen: Soft and nontender. Skin: Skin warm and dry. Normal skin color. Normal skin turgor. Extremities: No lower extremity edema. No calf ttp Neuro: Oriented X 3. No motor deficit. No sensory deficit. Cn 2-12 intact Psych: agitated, depressed, upset Course Course Course Narrative: Physician observation started at 1027pm. Patient placed in physician observation because he needed for time for recovery team and possibly CARE team to help with assistance prior to his suboxone clinic appointment tomorrow. At the time observation was started the patient's vitals were stable, patient is alert and oriented but slightly agitated, Neuro: nonfocal, CV RRR, Lungs clear MDM - Psych MDM Narrative Medical decision making narrative: 35 yo male with mental health and substance abuse issues here with c/o SI and substance abuse due to issues with not getting his suboxone Rx - care team notes he has intake appointment in clinic tomorrow and that he can be held here if possible until appointment in the suboxone clinic Lab Data Labs: Lab Results 08/06/21 Range/Units 21:54 COVID-19 (MARILYN) Negative (Negative) COVID-19 Clin Com See Note Discharge Plan Discharge Clinical Impression: Opiate abuse, continuous Instructions: Opioid Use Disorder (ED) Prescriptions: No Action prazosin 1 mg Capsule 1 mg PO BEDTIME Qty: 14 RF: 0 nicotine 21 mg/24 hr Patch 24 Hour 21 mg transdermal DAILY Qty: 30 RF: 0 albuterol sulfate [Ventolin HFA] 90 mcg/actuation Hfa Aerosol Inhaler 2 puff inhalation RQ6H PRN (Reason: asthma) Qty: 10 RF: 0 ferrous sulfate 324 mg (65 mg iron) Tablet,Delayed Release (Dr/Ec) 324 mg PO DAILY Qty: 30 RF: 0 multivitamin [Daily-Grecia] Tablet 1 tab PO DAILY Qty: 30 RF: 0 quetiapine 300 mg Tablet 300 mg PO BEDTIME Qty: 7 RF: 1 polyvinyl alcohol [Artificial Tears (polyvin alc)] 1.4 % Drops 2 drp ophthalmic (eye) Q4H PRN (Reason: Dry Eyes) Qty: 10 RF: 0 Flovent Diskus 250 mcg/actuation Blister With Device 2 puff inhalation RBID Qty: 1 RF: 0 dextroamphetamine [Zenzedi] 30 mg tablet 30 mg PO BID Qty: 28 RF: 0 gabapentin 400 mg Capsule 800 mg PO TID Qty: 42 RF: 1 bupropion HCl 100 mg tablet sustained-release 12 hr 1 tab PO QAM Qty: 14 RF: 0 buprenorphine-naloxone [Suboxone] 8-2 mg Film 1 film sublingual 0900,1600 Qty: 3 RF: 0
[2021-08-06 22:15] LABS: COVID-19 Test Negative (Negative)
--- NOTE | 2021-08-06 22:38 | MHC.CARE ---
Pt will not be referred to [facility] for crisis eval. He was discharged from last week, stabilized, and he reported that when he went to fill his suboxone script that he was told that the paper script he had wasn't valid. He relapsed and used heroin in response to this and presented to the ED this evening stating that he wants a . Pt has an appointment with the hospital's suboxone clinic ([facility]) at 10am on Tuesday 08/07. He used just prior to ED arrival so this marketing underwriter will meet with him later tonight for a risk assessment with tentative plan that for discharge from ED to his appointment in the morning.
[2021-08-06 23:13] LABS: Amphetamine Screen Urine Not Detected (Not Detect); Barbiturates, Urine Not Detected (Not Detect); Benzodiazepines Screen Urine Not Detected (Not Detect); Cannabinoid Screen Urine POSITIVE (Not Detect); Cocaine Screen Urine POSITIVE (Not Detect); Fentanyl, urine POSITIVE (Not Detect); Opiate Screen Urine POSITIVE (Not Detect); Phencyclidine Screen Urine Not Detected (Not Detect)
[2021-08-06 23:25] VITALS: BP 141/75; PULSE 84; RESP 17; TEMP 36.7; O2SAT 98
[2021-08-06] MEDS: QUEtiapine Fumarate 300 MG TABLET PO (23:27)
[2021-08-06] MEDS: Nicotine Polacrilex 2 MG GUM BUCCAL (23:27)
--- NOTE | 2021-08-06 23:53 | HO.SUDE ---
CARE team met with pt to complete SUDE. Tox screen positive for opiates, fentanyl, cocaine, and marijuana. Pt reported that he hadn't use heroin since his intentional overdose prior to his inpt psych admission on 07/20/21, but used just before he came to the ED tonight after several days of struggling to fill his suboxone script. He has also been unable to fill his adderall script. He reported that he has hardly slept in 5 days and had been feeling terrible, and after running around to several pharmacies trying to fill his adderall script today, unsuccessfully, he asked his sister to drop him off at the ED and he used a bundle of heroin before walking in. He said part of me hoped I was going to overdose, I'm just so done with this when speaking about his frustration with being unable to access the treatment and care he needs to sustain recovery. He has a long history of opiate and cocaine use and has served two Section 35 commitments, most recently this fall and in 2017. He has been admitted to detox numerous times and has been on both methadone and suboxone maintenance programs. Prior to his recent psych discharge he had hoped to be accepted to the [facility] CSS program, however he stated that he was denied because of his recent suicide attempt (this is per pt report- unsure if accurate). At this time pt is asking for detox placement, preferably [facility] in [place]. He's hoping to complete detox and then transfer to a CSS from there. CARE/recovery team will work on detox placement in the morning.
--- NOTE | 2021-08-07 05:32 | PC.NURSE ---
Patient slept through the night, no distress observed/reported, behavior appropriate, medication compliant, patient was evaluated by care team, disposition is detox bed search, VSS, will continue to monitor.
--- NOTE | 2021-08-07 07:21 | PC.NURSE ---
patient appears to remain asleep at present respirations are even and unabored patient appears in no distress
--- NOTE | 2021-08-07 11:08 | MHC.CARE ---
Pt is a 35 y/o Faroese speaking, male who is previously known to the CARE Team through prior admissions and assessments.? Today, pt is being screened by the CARE Team for crisis prior to a bed search being conducted for a Detox bed. Pt is alert and oriented x4 and is assessed for crisis in his room in the behavioral health pod of the ED.? Pt is dressed in hospital attire, appears neat, and appears his stated age.? He is engaged in the assessment and is help seeking, wanting a detox program for his substance use.? His speech and eye contact are within normal limits.? Appetite and sleep reported as ?good?.? His affect is variable.? Pt comments on his mood as needing detox.? He denies AVH, SI, HI, , and self-harm urges.? He does not appear to be delusional or experiencing symptoms of psychosis. Insight, judgement, memory, concentration, impulse control all appear uncompromised. Pt appears safe to go to detox.
--- NOTE | 2021-08-07 11:48 | PC.NURSE ---
t/w attempted to have client sign dc paperwork wheres my meds t/w stated to patient he should approach regular provider about meds. you guys have to give me my meds seemingly made self harming threats in response to not his preferred reponse. conveyed information to care team who attmepted to assist me since patient had raised his voice to my response.
--- NOTE | 2021-08-07 12:18 | MHC.RECOVSUP ---
? Reason for consult:Recovery Support o Current location:ED1 o Identified substance use concern: Heroine - Withdrawal - Seeking ATS (detox) - Support ? Intervention: o ATS bed search started/completed/in process o Harm reduction discussion ? Plan: o Bed search in progress to o Patient to follow up with [facility] after discharge ? Additional information:Patient was agreeable to ANYWHERE in the state. I was able to obtain a BED at [facility]. When patient was notified, he refused to go there. he stated: he needed his meds and that he had to go home first. I notified the nurse and the provider. Patient was upset. Patient was discharged.
--- NOTE | 2021-08-07 13:13 | MHC.CARE ---
Pt presented to ED after not being able to fill MAT scripts.? Pt had been referred to the [facility] [place] and an appointment was established for 10:00AM today to secure suboxone.? Pt refused the appointment. Recovery Team met with pt and secured a detox bed.? CARE Team screened pt for risk (See Note) and it was determined there was none.? Recovery team met with pt to make him aware of the bed that was secured at detox.? Pt refused to go.? CARE Team made aware. CARE Team meets with pt to discuss the reasons why he declined detox after requesting it.? Pt stated that he has no medications as his prescriptions were not filled.? CARE Team contacts [facility] who stated that pt?s insurance would no longer cover his Aderol.? Pt does have prescriptions at the pharmacy waiting for him for suboxone.? CARE Team returns to pt?s room and attempts to engage in problem solving with the pt who stated that he is now feeling unsafe.? CARE Team inquires as to why pt is now feeling unsafe when he recently expressed he felt safe.? Pt stated he always feels unsafe, but would not answer why he stated he felt safe when asked earlier, prior to going to detox.? CARE Team again attempts to engage pt in trouble shooting, suggesting the possibility of getting suboxone at this facility, contacting his insurance company to determine the reasons for his aderol being discontinued.? Pt stated that he has none of his belongings, they are at his sister?s house and he has no access to the home when she is not there.? It was suggested that his belongings could be dropped off with him after she returns.? Pt declined to participate further. All information was presented to CARE seo coordinator Elaina COTTO and ED provider Mariana Duran.? Pt will be discharged. CARE Team, discusses disposition with pt.? Pt offered a ride to the Living Room and later a ride to his sister?s house.? Pt declined.? Pt was advised he could remain in the waiting area of the ED and CARE Team would provide a ride to his sister?s house after 4:00PM (When she is home from work).? Pt declined.? Pt offered the [facility] [place] again, pt declined.?
== END 2021-08-07 12:16 | disposition home or self-care (01) ==
PROVIDERS: Emergency Provider Emergency Medicine
DX: F11.20 Opioid dependence, uncomplicated (principal); Z20.822 Contact with and (suspected) exposure to COVID-19
CPT/HCPCS: 36415; 80307; 87635; 99284

== ENCOUNTER 2021-08-11 18:41 | Emergency (ER) | payer MEDICAID, SELFPAY ==
[2021-08-11 18:48] VITALS: PULSE 93; RESP 20; O2SAT 100; BMI 24.2
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
[2021-08-11] MEDS: 0.9 % Sodium Chloride 1,000 ML 999 ML IV (20:13)
[2021-08-11] MEDS: ondansetron HCL 4 MG/2 ML VIAL IVPUSH (20:16)
[2021-08-11 20:17] LABS: Basophils Percent Auto 0.3 % (0-2); Eosinophils Absolute Auto 0.1 X10*3/uL (0.0-0.4); Eosinophils Percent Auto 1.1 % (0-4); Hematocrit 37.6 % (42.0-52.0); Hemoglobin 12.7 g/dl (14.0-18.0); Imm Gran Abs Auto 0.02 X10*3/uL (0.00-0.03); Imm Gran Pct Auto 0.2 % (0.0-0.4); Lymphocytes Absolute Auto 1.1 X10*3/uL (1.2-4.9); Lymphocytes Percent Auto 12.3 % (20-40); MANUAL DIFF FLAG NO; Mean Corpuscular HGB Conc 33.8 g/dl (31.0-36.0); Mean Corpuscular Hemoglobin 28.9 pg (27.0-33.0); Mean Corpuscular Volume 85.6 fL (80.0-98.0); Mean Platelet Volume 8.8 fL (9.4-12.4); Monocytes Absolute Auto 0.8 X10*3/uL (0.1-1.2); Monocytes Percent Auto 8.9 % (2-11); Neutrophils Absolute Auto 7.1 x10*3/uL (2.0-8.3); Neutrophils Percent Auto 77.2 % (45-73); Platelet Count 244 X10*3/uL (160-400); Red Blood Count 4.39 X10*6/uL (4.60-5.80); Red Cell Distribution Width 13.8 % (11.0-16.0); White Blood Count 9.2 X10*3/uL (4.8-10.8)
--- NOTE | 2021-08-11 20:19 | PC.NURSE ---
iv placed to right hand, labs drawn to lab. NS up and running w/o difficulty. site intact.
[2021-08-11 20:34] LABS: Ethanol < 10 mg/dL
[2021-08-11 20:39] LABS: Alanine Aminotransferase 42 U/L (0-40); Albumin Level 4.1 g/dL (3.5-5.0); Alkaline Phosphatase 73 U/L (39-117); Anion Gap 12 (12-20); Aspartate Amino Transferase 35 U/L (5-37); Bilirubin Total 0.4 mg/dL (0.0-1.0); Blood Urea Nitrogen 11 mg/dL (9-16); Calcium 9.2 mg/dL (8.4-10.2); Carbon Dioxide 27 mmol/L (22-29); Chloride 104 mmol/L (96-108); Creatinine Clr Calc Pharmacy 115.1; Estimated Glomerular Filt Rate > 60; Glucose Random 105 mg/dL (60-115); Potassium 3.4 mmol/L (3.3-5.1); Sodium 140 mmol/L (135-145); Total Protein 7.4 g/dL (6.5-8.0)
[2021-08-12] VITALS: RESP 16
[2021-08-12 02:00] VITALS: RESP 18; O2SAT 97
--- NOTE | 2021-08-12 03:25 | PC.NURSE ---
SMARTSHEET DONE AT THIS TIME. NS INFUSED W/O DIFFICULTY. PT REMAINS SLEEPING, WAKES TO VOICE. RESPIRATIONS EASY, N/L. PT AWAITING DISPO. WILL CONTINUE TO MONITOR PT.
--- NOTE | 2021-08-12 03:46 | PC.NURSE ---
SPOKE WITH [facility] AND THEY WILL COME HERE TO EVAL PT AROUND 1000 AM TODAY.
[2021-08-12 04:00] VITALS: PULSE 80; RESP 18; O2SAT 98
[2021-08-12 06:00] VITALS: BP 119/74; PULSE 84; RESP 18; TEMP 36.9; O2SAT 97
--- NOTE | 2021-08-12 06:06 | PC.NURSE ---
pt woke up concerned about his belongings. pt given sandwich and boris shanae to drink. Pt awaiting BHN for eval. pt remains calm and cooperative in ED.
--- NOTE | 2021-08-12 09:02 | PC.NURSE ---
BHN at bedside
--- NOTE | 2021-08-12 10:13 | PC.NURSE ---
section 12 bedsearch
[2021-08-12 11:28] VITALS: RESP 17
--- NOTE | 2021-08-12 13:06 | PC.NURSE ---
patient currently sleeping, rr 18, will continue to monitor.
--- NOTE | 2021-08-12 14:23 | PC.NURSE ---
report called to pod
[2021-08-13 00:51] VITALS: RESP 18
[2021-08-13 00:54] LABS: COVID-19 Test Negative (Negative); IDNOW Serial# 9DD0AD1C
[2021-08-13 01:27] LABS: Appearance Urine HAZY; Color Urine YELLOW; Glucose Urine UA NEG (NEG); Leukocyte Esterase Urine NEG (NEG); Nitrite Urine NEG (NEG); Specific Gravity - Urine 1.015 (1.005-1.025); Urine Blood NEG (NEG); Urine Ketones NEG (NEG); Urine Protein NEG (NEG-TRACE)
[2021-08-13 01:28] LABS: Bacteria Urine 1+ /LPF; Squamous Epithelial Cell Urine 1+ /LPF
[2021-08-13 01:29] LABS: Amorphous Sediment Urine 2+ /LPF
[2021-08-13 01:37] LABS: Amphetamine Screen Urine Not Detected (Not Detect); Barbiturates, Urine Not Detected (Not Detect); Benzodiazepines Screen Urine Not Detected (Not Detect); Cannabinoid Screen Urine POSITIVE (Not Detect); Cocaine Screen Urine POSITIVE (Not Detect); Fentanyl, urine POSITIVE (Not Detect); Opiate Screen Urine Not Detected (Not Detect); Phencyclidine Screen Urine Not Detected (Not Detect)
--- NOTE | 2021-08-13 05:43 | PC.NURSE ---
Patient slept through the night, no distress observed/reported, patient reported that he doesn't want to go inpatient, he wants help with detox, patient disposition is section 12 inpatient bed search, VSS, behavior appropriate, med rec completed/pending provider's approval, will continue to monitor.
[2021-08-13 06:18] VITALS: BP 128/65; PULSE 64; RESP 18; TEMP 36.7; O2SAT 92
--- NOTE | 2021-08-13 07:58 | PC.NURSE ---
patient appears to remain at rest at present respirations are even and unlabored patient appears in no distress
--- NOTE | 2021-08-13 13:32 | MHC.CARE ---
CARE Team meets with pt at Pod RN's request. Pt presented to the ED after a fetanyl overdose, and was subsequently seen by [facility] crisis after endorsing that this overdose was intentional. Initial disposition was for IPLOC. Pt known to the CARE Team, and was d/c last week with recommendation that pt admit to an ATS program. Today, pt is alert and oriented. He states that he is feeling much better and would like to be discharged to his sister's home in [place], [place]. Pt states that the overdose was not intentional and denies remembering stating that it was. He reports that he did not use more then usual, and was trying to get high. he stated if I was trying to kill myself, I would have used all of the bags I had and goes on to report that he only used a couple of bags and had several bags left over. CARE Team offers to support pt in connecting with MAT, however, pt states that he can do this on his own with his PCP who prescribes his suboxone. Pt denies wanting support connecting with substance use treatment today. CARE Team speaks with Dr. Nayak, who agrees that pt can be discharged to his sister's home. CARE Team recommends that pt be given narcan at discharge. CARE Team speaks with Nicholas, head of security who reports that there are no substances in pt's belongings.
== END 2021-08-13 13:24 | disposition home or self-care (01) ==
PROVIDERS: Emergency Provider Emergency Medicine
DX: T40.2X2A Poisoning by other opioids, intentional self-harm, initial encounter (principal); F11.10 Opioid abuse, uncomplicated; Y92.488 Other paved roadways as the place of occurrence of the external cause; Z20.822 Contact with and (suspected) exposure to COVID-19
CPT/HCPCS: 36415; 80053; 80307; 81001; 82077; 85025; 87635; 96361; 96374; 99284; J2405

== ENCOUNTER 2021-11-12 20:53 | Inpatient (IN) | payer MEDICAID, OTHER, SELFPAY ==
--- NOTE | ~2021-11-12 | CT_ITS ---
EXAMINATION: NONCONTRAST HEAD CT NONCONTRAST CERVICAL SPINE CT INDICATION INFORMATION: Fall. Head injury. COMPARISON: 07/19/2021 TECHNIQUE: Separate noncontrast CT examinations of the head and cervical spine were performed. Coronal and sagittal images were created for each examination at the technologist workstation. This CT examination was performed using dose optimization techniques as appropriate, variously including the following: *Automated exposure control *Adjustment of mA and/or kV according to patient size (this includes techniques or standardized protocols for targeted exams where dose is matched to indication/reason for exam; i.e. extremities or head) *Use of iterative reconstruction technique DLP: 1023 mGy-cm FINDINGS: Head: There is no evidence of acute intracranial hemorrhage or territorial infarction. No abnormal mass effect or midline shift is seen. Diez to white matter differentiation is well preserved. No extra-axial fluid collections are identified. No hydrocephalus. No significant volume loss. There is no abnormal attenuation within the brain parenchyma. No acute osseous or soft tissue abnormality. The mastoid air cells and visualized portions of the paranasal sinuses are well aerated. 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 There is also fused appearance of T1 and T2. This results in levoscoliosis centered at C7-T1.. The atlantoaxial and atlantooccipital articulations are intact. Vertebral body heights are maintained. Mild facet arthropathy at the upper cervical spine. Small endplate osteophytes as well. No evidence of acute fracture. No prevertebral soft tissue swelling. Visualized portions of the lung apices are unremarkable. The thyroid gland is unremarkable. CT/CT cervical spine wo con IMPRESSION: 1. No acute intracranial finding. 2. No fracture or malalignment of the cervical spine. 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
--- NOTE | ~2021-11-12 | XR_ITS ---
EXAMINATION: XR HIP, LEFT CLINICAL INFORMATION: Fall with hip pain COMPARISON: None TECHNIQUE: Two views of the left hip. Frontal view of the pelvis. FINDINGS: No fracture or dislocation. The hips are well aligned. Joint spaces are maintained. The pelvic rim is intact. The sacroiliac joints and pubic symphysis are intact. Normal bowel gas pattern. XR/XR hip LT 1V IMPRESSION: Unremarkable appearance of the left hip/pelvis.
[2021-11-12 20:59] VITALS: BP 129/76; PULSE 120; RESP 20; TEMP 36.8; O2SAT 97; BMI 23.5
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
[2021-11-12 23:06] LABS: COVID-19 Test Negative (Negative); IDNOW Serial# 55D5AD1C
[2021-11-12 23:11] LABS: Ethanol < 10 mg/dL
--- NOTE | 2021-11-13 | ECG_ITS ---
Test Reason : MEDCLEARANCE Blood Pressure : / mmHG Vent. Rate : 054 BPM Atrial Rate : 054 BPM P-R Int : 132 ms QRS Dur : 088 ms QT Int : 462 ms P-R-T Axes : -29 004 013 degrees QTc Int : 438 ms Sinus bradycardia Minimal voltage criteria for LVH, may be normal variant ( Sokolow-Lee ) T wave abnormality, consider anterior ischemia Abnormal ECG When compared with ECG of 19-JUL-2021 21:49, Vent. rate has decreased BY 28 BPM Inverted T waves have replaced nonspecific T wave abnormality in Anterior leads Referred By: Mary Deshpande Electronically Signed By:MIHIR PAGAN
[2021-11-13 00:38] VITALS: BP 99/45; PULSE 61; RESP 16; O2SAT 97
--- NOTE | 2021-11-13 08:22 | PHA.MEDREC ---
MED REC COMPLETE, Patient has been without his medications for a few days Pharmacy Consult ? Medication Reconciliation Pharmacy has completed the medication reconciliation.
[2021-11-13 09:33] VITALS: BP 115/58; PULSE 79; RESP 16; O2SAT 98
[2021-11-13 13:23] LABS: Amphetamine Screen Urine Not Detected (Not Detect); Barbiturates, Urine Not Detected (Not Detect); Benzodiazepines Screen Urine Not Detected (Not Detect); Cannabinoid Screen Urine POSITIVE (Not Detect); Cocaine Screen Urine POSITIVE (Not Detect); Fentanyl, urine POSITIVE (Not Detect); Opiate Screen Urine Not Detected (Not Detect); Phencyclidine Screen Urine Not Detected (Not Detect)
[2021-11-13 17:58] VITALS: BP 128/83; PULSE 74; RESP 16; O2SAT 97
[2021-11-13 19:10] VITALS: BP 125/67; PULSE 73; RESP 19; O2SAT 96
--- NOTE | 2021-11-13 19:15 | PC.NURSE ---
Tech notified this RN that pt is requesting meds. This RN to bedside. Pt aaox4, resting calmly on stretcher, states I need my suboxone. Pt VS assessed, stable on RA. Pt COWs assessed as charted, indicates mild withdrawal sx. During assessment, pt begins moaning, states I can't do this man. Pt begins pacing around room. Pt then returns to stretcher and rests quietly. This RN informs pt that assessment findings and pt's requests will be relayed to provider. While this RN at bedside assessing pt, MHA from pod arrives and states that pt is going to be transferred to pod. Pt transferred to pod with security and tech.
[2021-11-13] MEDS: Magnesium Hydrox/Alum Hydrox 30 ML ORAL.SUSP PO (23:12)
[2021-11-13] MEDS: hydrOXYzine HCL 25 MG TABLET PO (23:12)
[2021-11-13 23:20] VITALS: BP 140/71; PULSE 51; RESP 17; TEMP 36.8; O2SAT 98
[2021-11-13 23:25] VITALS: BMI 21.9
--- NOTE | 2021-11-13 23:27 | PC.ADMIT ---
Pt. admitted to M3 from [facility] ED on 11/13/2021 at 2255 due to SI and opioid use disorder. Pt. signed a CV. He presented with an anxious mood and affect. Tox screen positive for fentanyl, cocaine and marijuana. Pt. reports feeling nauseous. No vomiting. Medicated with hydroxyzine 25mg for anxiety and maalox 30ml for nausea at 2312. Admission VS: 140/71, HR51, RR17, 98% on RA, T98.2. C/o back pain 03/31. Pt. requesting suboxone, but is aware that he will not be receiving it tonight. EKG obtained in ED showed sinus tonny 54bpm, T wave abnormality. Pt. refused to complete admission assessments and safety tool. Pt. refused to sign legals. He was polite, but reported, I can't right now. I feel like I'm going to throw up and I just need to rest. Pt. denied SI at this time. He also denied HI, AH and VH. Pt. reports feeling safe and contracts for safety.
[2021-11-14 10:57] VITALS: RESP 18
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
[2021-11-14] MEDS: Ondansetron ODT 4 MG TAB.RAPDIS TRANSLINGU (13:04)
[2021-11-14] MEDS: methADONE HCl 20 MG/2 ML ORAL.CONC 30 MG PO (13:49)
[2021-11-14] MEDS: LORazepam 1 MG TABLET PO ×2 (16:29→20:52)
[2021-11-14] MEDS: Cyclobenzaprine HCl 10 MG TABLET PO ×2 (16:29→22:32)
[2021-11-14] MEDS: Famotidine 20 MG TABLET PO ×2 (16:29→20:52)
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
[2021-11-14] MEDS: Promethazine HCL 25 MG TABLET PO (17:58)
[2021-11-14] MEDS: hydrOXYzine HCL 25 MG TABLET PO (20:52)
[2021-11-14] MEDS: Ondansetron ODT 4 MG TAB.RAPDIS 8 MG TRANSLINGU (20:52)
[2021-11-14 22:29] VITALS: BP 127/89; PULSE 88; TEMP 36.7; O2SAT 97
[2021-11-14] MEDS: cloNIDine HCL 0.1 MG TABLET PO (22:32)
[2021-11-14] MEDS: QUEtiapine Fumarate 50 MG TABLET PO (22:32)
[2021-11-15 07:00] VITALS: BMI 19.7
[2021-11-15 09:20] VITALS: BP 130/81; PULSE 107; RESP 18; TEMP 36.9; O2SAT 97
[2021-11-15] MEDS: LORazepam 1 MG TABLET PO ×3 (09:26→22:02)
[2021-11-15] MEDS: Ondansetron ODT 4 MG TAB.RAPDIS 8 MG TRANSLINGU ×2 (09:26→15:26)
[2021-11-15] MEDS: methADONE HCl 20 MG/2 ML ORAL.CONC 30 MG PO (09:52)
[2021-11-15] MEDS: lamoTRIgine 100 MG TABLET PO (10:47)
[2021-11-15] MEDS: Gabapentin 600 MG TABLET PO ×3 (10:47→22:03)
[2021-11-15] MEDS: Cyclobenzaprine HCl 10 MG TABLET PO ×2 (11:37→22:02)
[2021-11-15] MEDS: Promethazine HCL 25 MG TABLET PO (11:37)
[2021-11-15 12:08] VITALS: BP 131/86; PULSE 94; RESP 18; O2SAT 96
--- NOTE | 2021-11-15 13:21 | PC.NURSE ---
On arrival, patient recently vomited, reported generalized aching, nausea. Given Zofran, ativan for persistent N/V. Patient reported no further vomiting, given methadone as ordered. At this time, no further report of vomiting, continues with nausea.
[2021-11-15 14:08] VITALS: PULSE 119
[2021-11-15 14:15] VITALS: BP 123/86; PULSE 119; RESP 18; O2SAT 96
--- NOTE | 2021-11-15 15:02 | P.PNADD_ITS ---
Subjective Subjective Date of Service: 11/15/21 Reason For Visit: si Guardianship: No Medical Problems Affecting Mental Status: No Interim History: Patient continues to display symptoms of opioid withdrawals, including generalized body aches, chills, diaphoresis, restless legs, with c/o N&V. EKG dated 11/13/2021 shows QTC of 483. Patient was lying in bed wrapped up in covers, shivering when I approached him. He was alert and oriented, reports that he continues to experience withdrawal symptoms. Reports that he has been up unable to eat almost anything in the past several days as well. Cows score of 11 earlier this afternoon by RN, but appears to possibly be higher at this time. Medication Compliance: Yes Side effects from medications: No Review of Systems Medical Review of Systems: unchanged Mental Status Exam Mental Status Exam Patient Appearance: Disheveled and Unkempt Patient Orientation: Person, Place, Time and Situation Level of Consciousness: Awake, Appropriate and Alert Patient Behavior: Appropriate and Cooperative Mood Description: Appropriate Affect Description: Appropriate and Anxious Diagnostics Vital Signs (24Hr): Vital Signs - 24 hr 11/14/21 22:29 11/15/21 09:20 11/15/21 12:08 Temperature 98.0 F 98.4 F Pulse Rate 88 107 H 94 Respiratory Rate 18 18 Blood Pressure 127/89 130/81 131/86 Pulse Oximetry 97 97 96 11/15/21 14:15 Temperature Pulse Rate 119 H Respiratory Rate 18 Blood Pressure 123/86 Pulse Oximetry 96 BMI result Body Mass Index 19.7 Medications Medications Current Medications Acetaminophen (Acetaminophen 325 Mg Tablet) 650 mg PO Q6H PRN PRN Reason: Headache/Pain Mild Scale (1-3) Al Hydroxide/Mg Hydroxide (Magnesium Hydrox/Alum Hydrox 30 Ml Oral.Susp) 30 ml PO Q6H PRN PRN Reason: Heartburn/Nausea Last Admin: 11/13/21 23:12 Dose: 30 ml Documented by: Bupropion HCl (Bupropion Hcl Xl 150 Mg Tab.Er.24h) 150 mg PO DAILY ERNA Last Admin: 11/15/21 11:24 Dose: Not Given Documented by: Clonidine HCl (Clonidine Hcl 0.1 Mg Tablet) 0.1 mg PO Q6H PRN; Protocol PRN Reason: opioid withdrawal/anxiety Last Admin: 11/14/21 22:32 Dose: 0.1 mg Documented by: Cyclobenzaprine HCl (Cyclobenzaprine Hcl 10 Mg Tablet) 10 mg PO Q6H PRN PRN Reason: Muscle Spasm Last Admin: 11/15/21 11:37 Dose: 10 mg Documented by: Famotidine (Famotidine 20 Mg Tablet) 20 mg PO BID [facility] Last Admin: 11/15/21 11:24 Dose: Not Given Documented by: Gabapentin (Gabapentin 600 Mg Tablet) 600 mg PO TID [facility] Last Admin: 11/15/21 14:14 Dose: 600 mg Documented by: Hydroxyzine HCl (Hydroxyzine Hcl 25 Mg Tablet) 25 mg PO Q6H PRN PRN Reason: Anxiety Last Admin: 11/14/21 20:52 Dose: 25 mg Documented by: Lamotrigine (Lamotrigine 100 Mg Tablet) 100 mg PO DAILY [facility] Last Admin: 11/15/21 10:47 Dose: 100 mg Documented by: Loperamide HCl (Loperamide Hcl 2 Mg Capsule) 2 mg PO Q6H PRN PRN Reason: loose stools Lorazepam (Lorazepam 1 Mg Tablet) 1 mg PO Q4H PRN PRN Reason: Anxiety Last Admin: 11/15/21 14:14 Dose: 1 mg Documented by: Magnesium Hydroxide (Milk Of Magnesia 30 Ml Oral.Susp) 30 ml PO DAILY PRN PRN Reason: Constipation Ondansetron HCl (Ondansetron Odt 4 Mg Tab.Rapdis) 8 mg TRANSLINGU Q6H PRN PRN Reason: Nausea Last Admin: 11/15/21 09:26 Dose: 8 mg Documented by: Prazosin HCl (Prazosin Hcl 1 Mg Capsule) 1 mg PO BEDTIME [facility]; Protocol Last Admin: 11/14/21 23:15 Dose: Not Given Documented by: Promethazine HCl (Promethazine Hcl 25 Mg Tablet) 25 mg PO Q4H PRN PRN Reason: Vomiting Last Admin: 11/15/21 11:37 Dose: 25 mg Documented by: Quetiapine Fumarate (Quetiapine Fumarate 50 Mg Tablet) 50 mg PO Q6H PRN PRN Reason: anxiety/agitation Last Admin: 11/14/21 22:32 Dose: 50 mg Documented by: Quetiapine Fumarate (Quetiapine Fumarate 50 Mg Tablet) 50 mg PO BEDTIME [facility] Last Admin: 11/14/21 23:15 Dose: Not Given Documented by: Trazodone HCl (Trazodone Hcl 50 Mg Tablet) 50 mg PO BEDTIME PRN PRN Reason: Insomnia Allergies Allergies Allergy/AdvReac Type Severity Reaction Status Date / Time haloperidol [From HALDOL] AdvReac Intermediate LOCK JAW Verified 11/12/21 20:59 olanzapine [From ZYPREXA] AdvReac Unknown PT REPORTS Verified 11/12/21 20:59 FEELS LIKE I AM ON AN ACID TRIP Assessment & Plan Assessment & Plan (1) Opioid use disorder, severe, dependence: Status: Acute Code(s): F11.20 - Opioid dependence, uncomplicated Assessment and Plan: Continues with opioid withdrawal symptoms present, including body aches, chills, diaphoresis, restless legs, nausea and vomiting. Plan 11/15/2021: 1. Add methadone 5mg one time dose, now. 2. Increase methadone to 35 mg daily, start tomorrow a.m.. 3. Continue to of assess for opioid withdrawal symptoms. 1. Start methadone 30 mg today. 2. Start loperamide 2 mg q.6 hours p.r.n. for loose stools. 3. Continue other comfort/withdrawal medications as prescribed. 4. Addiction service will follow this patient along with you. This information has been conveyed to provider Marii Ward NP, via secure electronic messaging system. Thank you for this consultation. I spent minutes with the patient and/or on the patient floor today, greater than?50% of which was spent counseling/coordinating care.
[2021-11-15] MEDS: methADONE HCl 20 MG/2 ML ORAL.CONC 5 MG PO (15:17)
--- NOTE | 2021-11-15 15:37 | P.PNPSI_ITS ---
Subjective Subjective Date of Service: 11/15/21 Reason For Visit: si Interim History: Patient seen and discussed with team. Per cruise staff member, pt has been vomiting, in withdrawal, continues on COWs and received methadone increase, restless, laying down in bed. Patient evaluated this today and upon interview he is too sedated to participate fully in interview, says he has withdrawal sx of feeling achy, hot, cold, nauseous. Was seen by digital imaging specialist today to continue titrating metha done.? Medication Compliance: Yes Side effects from medications: No Attending Groups: No Review of Systems Acute medical concerns: No Medical Review of Systems: unchanged Mental Status Exam Mental Status Exam Narrative: Thin male, in NAD. Ambulated about room, gait slow/steady. No abnormal movements, no tics/tremors, no overt signs of opioid withdrawals noted. Patient Appearance:?Disheveled and Appropriate Patient Orientation:?Person, Place, Time and Situation Level of Consciousness:?Appropriate Patient Behavior:?Appropriate and Cooperative Mood Description:?Appropriate Affect Description:?Depressed and Anxious Patient Cognition Impaired:?No Ability to Follow Directions:?Good Speech Pattern:?Clear, Appropriate and Coherent Memory Description:?Intact Hallucinations:?None Delusions:?Not Present Thought Process:?Intact Thought Content:?positive for Intact Depressive Symptoms:?Increased Anxiety Judgement:?Fair Diagnostics Vital Signs (24Hr): Vital Signs - 24 hr 11/14/21 22:29 11/15/21 09:20 11/15/21 12:08 Temperature 98.0 F 98.4 F Pulse Rate 88 107 H 94 Respiratory Rate 18 18 Blood Pressure 127/89 130/81 131/86 Pulse Oximetry 97 97 96 11/15/21 14:15 Temperature Pulse Rate 119 H Respiratory Rate 18 Blood Pressure 123/86 Pulse Oximetry 96 BMI result Body Mass Index 19.7 Labs Results: 11/16/21 01:52 11/17/21 08:23 Medications Medications Current Medications Acetaminophen (Acetaminophen 325 Mg Tablet) 650 mg PO Q6H PRN PRN Reason: Headache/Pain Mild Scale (1-3) Al Hydroxide/Mg Hydroxide (Magnesium Hydrox/Alum Hydrox 30 Ml Oral.Susp) 30 ml PO Q6H PRN PRN Reason: Heartburn/Nausea Last Admin: 11/13/21 23:12 Dose: 30 ml Documented by: Bupropion HCl (Bupropion Hcl Xl 150 Mg Tab.Er.24h) 150 mg PO DAILY [facility] Last Admin: 11/15/21 11:24 Dose: Not Given Documented by: Clonidine HCl (Clonidine Hcl 0.1 Mg Tablet) 0.1 mg PO Q6H PRN; Protocol PRN Reason: opioid withdrawal/anxiety Last Admin: 11/14/21 22:32 Dose: 0.1 mg Documented by: Cyclobenzaprine HCl (Cyclobenzaprine Hcl 10 Mg Tablet) 10 mg PO Q6H PRN PRN Reason: Muscle Spasm Last Admin: 11/15/21 11:37 Dose: 10 mg Documented by: Famotidine (Famotidine 20 Mg Tablet) 20 mg PO BID [facility] Last Admin: 11/15/21 11:24 Dose: Not Given Documented by: Gabapentin (Gabapentin 600 Mg Tablet) 600 mg PO TID [facility] Last Admin: 11/15/21 14:14 Dose: 600 mg Documented by: Hydroxyzine HCl (Hydroxyzine Hcl 25 Mg Tablet) 25 mg PO Q6H PRN PRN Reason: Anxiety Last Admin: 11/14/21 20:52 Dose: 25 mg Documented by: Lamotrigine (Lamotrigine 100 Mg Tablet) 100 mg PO DAILY [facility] Last Admin: 11/15/21 10:47 Dose: 100 mg Documented by: Loperamide HCl (Loperamide Hcl 2 Mg Capsule) 2 mg PO Q6H PRN PRN Reason: loose stools Lorazepam (Lorazepam 1 Mg Tablet) 1 mg PO Q4H PRN PRN Reason: Anxiety Last Admin: 11/15/21 14:14 Dose: 1 mg Documented by: Magnesium Hydroxide (Milk Of Magnesia 30 Ml Oral.Susp) 30 ml PO DAILY PRN PRN Reason: Constipation Methadone HCl (Methadone Hcl 20 Mg/2 Ml Oral.Conc) 35 mg PO DAILY [facility] Ondansetron HCl (Ondansetron Odt 4 Mg Tab.Rapdis) 8 mg TRANSLINGU Q6H PRN PRN Reason: Nausea Last Admin: 11/15/21 15:26 Dose: 8 mg Documented by: Prazosin HCl (Prazosin Hcl 1 Mg Capsule) 1 mg PO BEDTIME [facility]; Protocol Last Admin: 11/14/21 23:15 Dose: Not Given Documented by: Promethazine HCl (Promethazine Hcl 25 Mg Tablet) 25 mg PO Q4H PRN PRN Reason: Vomiting Last Admin: 11/15/21 11:37 Dose: 25 mg Documented by: Quetiapine Fumarate (Quetiapine Fumarate 50 Mg Tablet) 50 mg PO Q6H PRN PRN Reason: anxiety/agitation Last Admin: 11/14/21 22:32 Dose: 50 mg Documented by: Quetiapine Fumarate (Quetiapine Fumarate 50 Mg Tablet) 50 mg PO BEDTIME [facility] Last Admin: 11/14/21 23:15 Dose: Not Given Documented by: Trazodone HCl (Trazodone Hcl 50 Mg Tablet) 50 mg PO BEDTIME PRN PRN Reason: Insomnia Allergies Allergies Allergy/AdvReac Type Severity Reaction Status Date / Time haloperidol [From HALDOL] AdvReac Intermediate LOCK JAW Verified 11/12/21 20:59 olanzapine [From ZYPREXA] AdvReac Unknown PT REPORTS Verified 11/12/21 20:59 FEELS LIKE I AM ON AN ACID TRIP Assessment & Plan Assessment & Plan (1) Opioid use disorder, severe, dependence: Status: Acute Code(s): F11.20 - Opioid dependence, uncomplicated Assessment and Plan: Continues with opioid withdrawal symptoms present, including body aches, chills, diaphoresis, restless legs, nausea and vomiting. Plan Mr. Howard is a 35 year-old male with extensive hx of opioid use disorder, MDD, who self presented to [facility] ED reporting increase depression, suicidal thoughts with plan to hand himself. Pt positive for opiods/fentanyl. He reports he wants to start methadone MAT. We discussed risks, benefits and alternative treatment options. Pt reports wellbutrin was beneficial for mood and would like to restart it. PLAN 1. admit to [facility]3, CV 15 minutes checks 2. start wellbutrin XR 150mg po daily 3. addiction consult to start methadone as MAT or taper 4. comfort meds for opioid withdrawal 5. Aftercare planning. 11/16: Pt was seen by digital imaging specialist for comfort meds, methadone titration. In active withdrawal, encourage fluids. I spent minutes with the patient and/or on the patient floor today, greater than?50% of which was spent counseling/coordinating care. Patient educated on: substance abuse Reason for contiued inpatient stay Substantial Risk for: rapid decompensation and med/psych decompensation
--- NOTE | 2021-11-15 19:08 | PC.NURSE ---
Patient reporting AH and VH- reports this is not something he typically experiences. Provider Artemio sylvester. Patient offered seroquel, but declined it at this time.
[2021-11-15 21:54] VITALS: BP 115/69; PULSE 103; TEMP 37.1; O2SAT 95
[2021-11-15] MEDS: hydrOXYzine HCL 25 MG TABLET PO (22:02)
[2021-11-15] MEDS: QUEtiapine Fumarate 50 MG TABLET PO (22:02)
[2021-11-15] MEDS: Famotidine 20 MG TABLET PO (22:02)
[2021-11-15] MEDS: Prazosin HCL 1 MG CAPSULE PO (22:03)
[2021-11-15] MEDS: Nicotine Polacrilex 2 MG GUM 4 MG BUCCAL (22:23)
[2021-11-16 00:53] LABS: Glucose, Whole Blood 139 mg/dL (60-115)
--- NOTE | 2021-11-16 01:19 | P.EN_ITS ---
Event Note Date of Service: 11/16/21 Event Note: A rapid response was called on the patient as he had a fall in the bathroom. Patient was standing, urinating when all of a sudden he lost consciousness and slammed to the floor hitting his face. His roommate called for help. On my arrival patient is lying on his back, with clear laceration of the bridge of his nose, some bleeding from the nose, awake alert, reports that he lost consciousness for few seconds and was not confused and regaining his consciousne ss. He denies any chest pain, no palpitations, but feels dizzy. Patient reports that because he is heavily withdrawing from opioids he has not been eating or drinking well and has been vomiting. At this time will obtain CT head and cervical spine, will obtain orthostatic vitals, if positive will transfuse with IV fluids. syncope likely vasovagal due to dehydration.
[2021-11-16 01:57] LABS: MANUAL DIFF FLAG NO
[2021-11-16 01:58] LABS: Basophils Absolute Auto 0.1 X10*3/uL (0.0-0.2); Basophils Percent Auto 0.5 % (0-2); Eosinophils Absolute Auto 0.1 X10*3/uL (0.0-0.4); Eosinophils Percent Auto 0.8 % (0-4); Hematocrit 48.2 % (42.0-52.0); Imm Gran Abs Auto 0.02 X10*3/uL (0.00-0.03); Imm Gran Pct Auto 0.2 % (0.0-0.4); Lymphocytes Absolute Auto 2.3 X10*3/uL (1.2-4.9); Lymphocytes Percent Auto 21.2 % (20-40); Mean Corpuscular HGB Conc 33.2 g/dl (31.0-36.0); Mean Corpuscular Hemoglobin 27.1 pg (27.0-33.0); Mean Corpuscular Volume 81.7 fL (80.0-98.0); Monocytes Absolute Auto 1.2 X10*3/uL (0.1-1.2); Monocytes Percent Auto 11.6 % (2-11); Neutrophils Percent Auto 65.7 % (45-73); Platelet Count 323 X10*3/uL (160-400); Red Cell Distribution Width 13.6 % (11.0-16.0); White Blood Count 10.7 X10*3/uL (4.8-10.8)
[2021-11-16 02:15] LABS: Lactic Acid 1.9 mmol/L (0.5-2.0)
[2021-11-16] MEDS: Lactated Ringers 1,000 ML 1000 ML IV ×2 (02:15→03:28)
[2021-11-16 02:18] LABS: Anion Gap 20 (12-20); Blood Urea Nitrogen 55 mg/dL (9-16); Calcium 9.6 mg/dL (8.4-10.2); Carbon Dioxide 26 mmol/L (22-29); Chloride 87 mmol/L (96-108); Estimated Glomerular Filt Rate 34; Glucose Random 139 mg/dL (60-115); Potassium 3.3 mmol/L (3.3-5.1); Sodium 130 mmol/L (135-145)
[2021-11-16 02:26] LABS: Troponin-I High Sensitivity 32.8 ng/L (<3.5-35.0)
[2021-11-16 05:25] VITALS: BP 84/53; PULSE 116; RESP 18; TEMP 36.7; O2SAT 98
[2021-11-16 06:22] VITALS: BP 116/70; PULSE 72; TEMP 36.6; O2SAT 97
--- NOTE | 2021-11-16 07:18 | PC.NURSE ---
At approximately 2345, Pt in 326-2 came to the Nurse's station stating my roommate fell in the bathroom . Upon this writers arrival, pt was on the bathroom on the floor on his left side, pt stated he went to urinate and did not know what happened. Pt was Ox4, Seemed to hallucinate at times. VS were 98.7T, 100%, 109HR, 108/61BP,18RR and a blood glucose of 139. Pt was oriented to person, place and time. Stated that his left hip was hurting and his left side of head. Upon assessment of face, blood was on the left side of nose and left sabianism area. Rapid Response was called. Pt was taken to have Head CT and cervical spine CT scan which came back negative as well as an xray of the left hip that also came back negative. Doctor and Psychiatrist are aware of event. Upon return from xray, Orthostats were done @ 0130 and were as follows; lying - 89/52, HR94 / sitting - 84/53, HR116 / Standing - unable to obtain due to pt increasing agitation. Labs were drawn and pt was ordered 2000mls of LR to be given over 2 hours. Pt IV access was removed per doctor. During this process of removing, he pushed this writer editor away and kneeled at the foot of the bed and urinated a SIGNIFICANT amount onto the floor. ES called to clean. Monitored for rest of morning resting comfortably, VS was placed on 1:1 d/t IV and unsteady gate. VS now WNL @ 0616.
[2021-11-16] MEDS: methADONE HCl 20 MG/2 ML ORAL.CONC 35 MG PO (09:36)
[2021-11-16] MEDS: Famotidine 20 MG TABLET PO ×2 (09:37→20:21)
[2021-11-16] MEDS: Gabapentin 600 MG TABLET PO ×3 (09:37→20:22)
[2021-11-16] MEDS: buPROPion HCl XL 150 MG TAB.ER.24H PO (09:37)
[2021-11-16] MEDS: LORazepam 1 MG TABLET PO ×3 (10:56→20:22)
--- NOTE | 2021-11-16 13:34 | P.PNPSI_ITS ---
Subjective Subjective Date of Service: 11/16/21 Reason For Visit: si Subjective Notes: Conditional Voluntary Interim History: Pt had unwitnessed fall, roommate called RN, pt on the floor. CMP- showed KEVIN, low Sodium, d/t dehydration. He received IV Fluid. Pt today more alert. Pt reports feeling better physically\. He denies nausea, vomiting. Pt reports neuropathic pain. Sweating. On methadone which he wants to continue as MAT. Pt asks for adderall which was prescribed by PCP- we discussed risks/benefit of misuse/abuse as pt continues to work on recovery. Pt reports her PCP from [facility] working on housing. He declines referrals for CSS, hopes he can find apartment soon and transition there. CMP follow up scheduled for tomorrow. Medication Compliance: Yes Side effects from medications: No Review of Systems Review of Systems A full review of systems was completed and was negative with the exception of pertinent positives noted in history of the presenting illness (HPI). Constitutional: Reports no additional constitutional complaints Diagnostics Vital Signs (24Hr): Vital Signs - 24 hr 11/15/21 21:54 11/16/21 05:25 11/16/21 06:22 Temperature 98.7 F 98.1 F 97.9 F Pulse Rate 103 H 116 H 72 Respiratory Rate 18 Blood Pressure 115/69 84/53 L 116/70 Pulse Oximetry 95 98 97 BMI result Body Mass Index 19.7 Labs Results: 11/16/21 01:52 11/16/21 01:53 Labs: Laboratory Results - last 48 hr 11/16/21 11/16/21 11/16/21 00:07 01:52 01:53 WBC 10.7 RBC 5.90 H D Hgb 16.0 D Hct 48.2 D MCV 81.7 MCH 27.1 MCHC 33.2 RDW 13.6 Plt Count 323 D MPV 9.0 L Immature Gran % (Auto) 0.2 Neut % (Auto) 65.7 Lymph % (Auto) 21.2 [place] % (Auto) 11.6 H Eos % (Auto) 0.8 Baso % (Auto) 0.5 Lymph # (Auto) 2.3 [place] # (Auto) 1.2 Eos # (Auto) 0.1 Baso # (Auto) 0.1 Abs Immat Gran (auto) 0.02 Absolute Neuts (auto) 7.0 Absolute Nucleated RBC 0.000 Nucleated RBC % (auto) 0.0 Sodium 130 L Potassium 3.3 Chloride 87 L Carbon Dioxide 26 Anion Gap 20 BUN 55 H Creatinine 2.23 H Estim Creat Clear Calc 37.0 Estimated GFR 34 POC Glucose 139 H Random Glucose 139 H Lactic Acid Calcium 9.6 Troponin I High Sens 11/16/21 11/16/21 01:53 01:53 WBC RBC Hgb Hct MCV MCH MCHC RDW Plt Count MPV Immature Gran % (Auto) Neut % (Auto) Lymph % (Auto) [place] % (Auto) Eos % (Auto) Baso % (Auto) Lymph # (Auto) [place] # (Auto) Eos # (Auto) Baso # (Auto) Abs Immat Gran (auto) Absolute Neuts (auto) Absolute Nucleated RBC Nucleated RBC % (auto) Sodium Potassium Chloride Carbon Dioxide Anion Gap BUN Creatinine Estim Creat Clear Calc Estimated GFR POC Glucose Random Glucose Lactic Acid 1.9 Calcium Troponin I High Sens 32.8 Imaging Radiology Impressions: ITS Impressions Cervical Spine CT 11/16/21 00:30 IMPRESSION: 1. No acute intracranial finding. 2. No fracture or malalignment of the cervical spine. 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 Head CT 11/16/21 00:30 IMPRESSION: 1. No acute intracranial finding. 2. No fracture or malalignment of the cervical spine. 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 Hip X-Ray 11/16/21 01:15 IMPRESSION: Unremarkable appearance of the left hip/pelvis. Medications Medications Current Medications Acetaminophen (Acetaminophen 325 Mg Tablet) 650 mg PO Q6H PRN PRN Reason: Headache/Pain Mild Scale (1-3) Al Hydroxide/Mg Hydroxide (Magnesium Hydrox/Alum Hydrox 30 Ml Oral.Susp) 30 ml PO Q6H PRN PRN Reason: Heartburn/Nausea Last Admin: 11/13/21 23:12 Dose: 30 ml Documented by: Bupropion HCl (Bupropion Hcl Xl 150 Mg Tab.Er.24h) 150 mg PO DAILY [facility] Last Admin: 11/16/21 09:37 Dose: 150 mg Documented by: Clonidine HCl (Clonidine Hcl 0.1 Mg Tablet) 0.1 mg PO Q6H PRN; Protocol PRN Reason: opioid withdrawal/anxiety Last Admin: 11/14/21 22:32 Dose: 0.1 mg Documented by: Cyclobenzaprine HCl (Cyclobenzaprine Hcl 10 Mg Tablet) 10 mg PO Q6H PRN PRN Reason: Muscle Spasm Last Admin: 11/15/21 22:02 Dose: 10 mg Documented by: Famotidine (Famotidine 20 Mg Tablet) 20 mg PO BID [facility] Last Admin: 11/16/21 09:37 Dose: 20 mg Documented by: Gabapentin (Gabapentin 600 Mg Tablet) 600 mg PO TID [facility] Last Admin: 11/16/21 14:45 Dose: 600 mg Documented by: Hydroxyzine HCl (Hydroxyzine Hcl 25 Mg Tablet) 25 mg PO Q6H PRN PRN Reason: Anxiety Last Admin: 11/15/21 22:02 Dose: 25 mg Documented by: Lamotrigine (Lamotrigine 100 Mg Tablet) 100 mg PO DAILY [facility] Last Admin: 11/16/21 09:46 Dose: Not Given Documented by: Loperamide HCl (Loperamide Hcl 2 Mg Capsule) 2 mg PO Q6H PRN PRN Reason: loose stools Lorazepam (Lorazepam 1 Mg Tablet) 1 mg PO Q4H PRN PRN Reason: Anxiety Last Admin: 11/16/21 14:45 Dose: 1 mg Documented by: Magnesium Hydroxide (Milk Of Magnesia 30 Ml Oral.Susp) 30 ml PO DAILY PRN PRN Reason: Constipation Methadone HCl (Methadone Hcl 20 Mg/2 Ml Oral.Conc) 35 mg PO DAILY [facility] Last Admin: 11/16/21 09:36 Dose: 35 mg Documented by: Nicotine Polacrilex (Nicotine Polacrilex 2 Mg Gum) 4 mg BUCCAL Q2H PRN PRN Reason: smoking cravings Last Admin: 11/16/21 14:51 Dose: 4 mg Documented by: Ondansetron HCl (Ondansetron Odt 4 Mg Tab.Rapdis) 8 mg TRANSLINGU Q6H PRN PRN Reason: Nausea Last Admin: 11/15/21 15:26 Dose: 8 mg Documented by: Prazosin HCl (Prazosin Hcl 1 Mg Capsule) 1 mg PO BEDTIME [facility]; Protocol Last Admin: 11/15/21 22:03 Dose: 1 mg Documented by: Promethazine HCl (Promethazine Hcl 25 Mg Tablet) 25 mg PO Q4H PRN PRN Reason: Vomiting Last Admin: 11/15/21 11:37 Dose: 25 mg Documented by: Quetiapine Fumarate (Quetiapine Fumarate 50 Mg Tablet) 50 mg PO Q6H PRN PRN Reason: anxiety/agitation Last Admin: 11/14/21 22:32 Dose: 50 mg Documented by: Quetiapine Fumarate (Quetiapine Fumarate 50 Mg Tablet) 50 mg PO BEDTIME [facility] Last Admin: 11/15/21 22:02 Dose: 50 mg Documented by: Trazodone HCl (Trazodone Hcl 50 Mg Tablet) 50 mg PO BEDTIME PRN PRN Reason: Insomnia Allergies Allergies Allergy/AdvReac Type Severity Reaction Status Date / Time haloperidol [From HALDOL] AdvReac Intermediate LOCK JAW Verified 11/12/21 20:59 olanzapine [From ZYPREXA] AdvReac Unknown PT REPORTS Verified 11/12/21 20:59 FEELS LIKE I AM ON AN ACID TRIP Assessment & Plan Assessment & Plan (1) Opioid use disorder, severe, dependence: Status: Acute Code(s): F11.20 - Opioid dependence, uncomplicated Assessment and Plan: Continues with opioid withdrawal symptoms present, including body aches, chills, diaphoresis, restless legs, nausea and vomiting. Plan PLAN: CV, 15 minutes checks for safety. Continue current medications KEVIN- dehydration, follow up CMP for 11/17/21 Less opioid withdrawal s/s We discussed no adderall given risk of misuse/abuse of medication as pt continued to work on recovery. 1. continue methadone 35 mg today. 2. Continue other comfort/withdrawal medications as prescribed. 3. Addiction service will follow this patient along. I spent minutes with the patient and/or on the patient floor today, greater than?50% of which was spent counseling/coordinating care. Reason for contiued inpatient stay Substantial Risk for: harm to self and inability to function
[2021-11-16] MEDS: Nicotine Polacrilex 2 MG GUM 4 MG BUCCAL ×3 (14:51→20:25)
--- NOTE | 2021-11-16 16:27 | P.PNADD_ITS ---
Subjective Subjective Date of Service: 11/16/21 Reason For Visit: si Guardianship: No Medical Problems Affecting Mental Status: No Interim History: Horace continues with active opioid withdrawal symptoms, including hot/cold flashes, N&V, generalized body aches. He had fallen last night, and received 2000ml LR. He reports he has only today been able to start eating or drink fluids, without vomiting. He is willing to work with recovery / addiction team, and would like to continue with upwards titration of methadone in order to manage withdrawals and cravings. Medication Compliance: Yes Side effects from medications: No Review of Systems Acute medical concerns: No Medical Review of Systems: unchanged Review of Systems Review of Systems Yes all other systems are reviewed and are negative Constitutional: Reports no additional constitutional complaints Mental Status Exam Mental Status Exam Narrative: Continues with opioid withdrawal symptoms, including restlessness, runny nose, watery eyes, yawning. Patient Appearance: Fatigued, Disheveled and Unkempt Patient Orientation: Person, Place, Time and Situation Level of Consciousness: Appropriate Patient Behavior: Appropriate and Cooperative Mood Description: Anxious Affect Description: Anxious Diagnostics Vital Signs (24Hr): Vital Signs - 24 hr 11/15/21 21:54 11/16/21 05:25 11/16/21 06:22 Temperature 98.7 F 98.1 F 97.9 F Pulse Rate 103 H 116 H 72 Respiratory Rate 18 Blood Pressure 115/69 84/53 L 116/70 Pulse Oximetry 95 98 97 BMI result Body Mass Index 19.7 Labs Results: 11/16/21 01:52 11/16/21 01:53 Labs: Laboratory Results - last 48 hr 11/16/21 11/16/21 11/16/21 00:07 01:52 01:53 WBC 10.7 RBC 5.90 H D Hgb 16.0 D Hct 48.2 D MCV 81.7 MCH 27.1 MCHC 33.2 RDW 13.6 Plt Count 323 D MPV 9.0 L Immature Gran % (Auto) 0.2 Neut % (Auto) 65.7 Lymph % (Auto) 21.2 [place] % (Auto) 11.6 H Eos % (Auto) 0.8 Baso % (Auto) 0.5 Lymph # (Auto) 2.3 [place] # (Auto) 1.2 Eos # (Auto) 0.1 Baso # (Auto) 0.1 Abs Immat Gran (auto) 0.02 Absolute Neuts (auto) 7.0 Absolute Nucleated RBC 0.000 Nucleated RBC % (auto) 0.0 Sodium 130 L Potassium 3.3 Chloride 87 L Carbon Dioxide 26 Anion Gap 20 BUN 55 H Creatinine 2.23 H Estim Creat Clear Calc 37.0 Estimated GFR 34 POC Glucose 139 H Random Glucose 139 H Lactic Acid Calcium 9.6 Troponin I High Sens 11/16/21 11/16/21 01:53 01:53 WBC RBC Hgb Hct MCV MCH MCHC RDW Plt Count MPV Immature Gran % (Auto) Neut % (Auto) Lymph % (Auto) [place] % (Auto) Eos % (Auto) Baso % (Auto) Lymph # (Auto) [place] # (Auto) Eos # (Auto) Baso # (Auto) Abs Immat Gran (auto) Absolute Neuts (auto) Absolute Nucleated RBC Nucleated RBC % (auto) Sodium Potassium Chloride Carbon Dioxide Anion Gap BUN Creatinine Estim Creat Clear Calc Estimated GFR POC Glucose Random Glucose Lactic Acid 1.9 Calcium Troponin I High Sens 32.8 Imaging Radiology Impressions: ITS Impressions Cervical Spine CT 11/16/21 00:30 IMPRESSION: 1. No acute intracranial finding. 2. No fracture or malalignment of the cervical spine. 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 Head CT 11/16/21 00:30 IMPRESSION: 1. No acute intracranial finding. 2. No fracture or malalignment of the cervical spine. 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 Hip X-Ray 11/16/21 01:15 IMPRESSION: Unremarkable appearance of the left hip/pelvis. Medications Medications Current Medications Acetaminophen (Acetaminophen 325 Mg Tablet) 650 mg PO Q6H PRN PRN Reason: Headache/Pain Mild Scale (1-3) Al Hydroxide/Mg Hydroxide (Magnesium Hydrox/Alum Hydrox 30 Ml Oral.Susp) 30 ml PO Q6H PRN PRN Reason: Heartburn/Nausea Last Admin: 11/13/21 23:12 Dose: 30 ml Documented by: Bupropion HCl (Bupropion Hcl Xl 150 Mg Tab.Er.24h) 150 mg PO DAILY [facility] Last Admin: 11/16/21 09:37 Dose: 150 mg Documented by: Clonidine HCl (Clonidine Hcl 0.1 Mg Tablet) 0.1 mg PO Q6H PRN; Protocol PRN Reason: opioid withdrawal/anxiety Last Admin: 11/14/21 22:32 Dose: 0.1 mg Documented by: Cyclobenzaprine HCl (Cyclobenzaprine Hcl 10 Mg Tablet) 10 mg PO Q6H PRN PRN Reason: Muscle Spasm Last Admin: 11/15/21 22:02 Dose: 10 mg Documented by: Famotidine (Famotidine 20 Mg Tablet) 20 mg PO BID [facility] Last Admin: 11/16/21 09:37 Dose: 20 mg Documented by: Gabapentin (Gabapentin 600 Mg Tablet) 600 mg PO TID [facility] Last Admin: 11/16/21 14:45 Dose: 600 mg Documented by: Hydroxyzine HCl (Hydroxyzine Hcl 25 Mg Tablet) 25 mg PO Q6H PRN PRN Reason: Anxiety Last Admin: 11/15/21 22:02 Dose: 25 mg Documented by: Lamotrigine (Lamotrigine 100 Mg Tablet) 100 mg PO DAILY [facility] Last Admin: 11/16/21 09:46 Dose: Not Given Documented by: Loperamide HCl (Loperamide Hcl 2 Mg Capsule) 2 mg PO Q6H PRN PRN Reason: loose stools Lorazepam (Lorazepam 1 Mg Tablet) 1 mg PO Q4H PRN PRN Reason: Anxiety Last Admin: 11/16/21 14:45 Dose: 1 mg Documented by: Magnesium Hydroxide (Milk Of Magnesia 30 Ml Oral.Susp) 30 ml PO DAILY PRN PRN Reason: Constipation Methadone HCl (Methadone Hcl 20 Mg/2 Ml Oral.Conc) 35 mg PO DAILY [facility] Last Admin: 11/16/21 09:36 Dose: 35 mg Documented by: Methadone HCl (Methadone Hcl 20 Mg/2 Ml Oral.Conc) 5 mg PO ONCE PRN PRN Reason: Opiate Withdrawal Nicotine Polacrilex (Nicotine Polacrilex 2 Mg Gum) 4 mg BUCCAL Q2H PRN PRN Reason: smoking cravings Last Admin: 11/16/21 14:51 Dose: 4 mg Documented by: Ondansetron HCl (Ondansetron Odt 4 Mg Tab.Rapdis) 8 mg TRANSLINGU Q6H PRN PRN Reason: Nausea Last Admin: 11/15/21 15:26 Dose: 8 mg Documented by: Prazosin HCl (Prazosin Hcl 1 Mg Capsule) 1 mg PO BEDTIME [facility]; Protocol Last Admin: 11/15/21 22:03 Dose: 1 mg Documented by: Promethazine HCl (Promethazine Hcl 25 Mg Tablet) 25 mg PO Q4H PRN PRN Reason: Vomiting Last Admin: 11/15/21 11:37 Dose: 25 mg Documented by: Quetiapine Fumarate (Quetiapine Fumarate 50 Mg Tablet) 50 mg PO Q6H PRN PRN Reason: anxiety/agitation Last Admin: 11/14/21 22:32 Dose: 50 mg Documented by: Quetiapine Fumarate (Quetiapine Fumarate 50 Mg Tablet) 50 mg PO BEDTIME [facility] Last Admin: 11/15/21 22:02 Dose: 50 mg Documented by: Trazodone HCl (Trazodone Hcl 50 Mg Tablet) 50 mg PO BEDTIME PRN PRN Reason: Insomnia Allergies Allergies Allergy/AdvReac Type Severity Reaction Status Date / Time haloperidol [From HALDOL] AdvReac Intermediate LOCK JAW Verified 11/12/21 20:59 olanzapine [From ZYPREXA] AdvReac Unknown PT REPORTS Verified 11/12/21 20:59 FEELS LIKE I AM ON AN ACID TRIP Assessment & Plan Assessment & Plan (1) Opioid use disorder, severe, dependence: Status: Acute Code(s): F11.20 - Opioid dependence, uncomplicated Assessment and Plan: Continues with opioid withdrawals and cravings, although reports symptoms are starting to lessen, states he has been able to eat today without as much N&V. Plan Addiction service plan: 1. add one methadone 5mg dose this evening, as a prn, for withdrawal management. 2. Follow-up with patient over weekend to assess withdrawals. PLAN: CV, 15 minutes checks for safety. Continue current medications KEVIN- dehydration, follow up CMP for 11/17/21 Less opioid withdrawal s/s We discussed no adderall given risk of misuse/abuse of medication as pt continued to work on recovery. 1. continue methadone 35 mg today. 2. Continue other comfort/withdrawal medications as prescribed. 3. Addiction service will follow this patient along. I spent minutes with the patient and/or on the patient floor today, greater than?50% of which was spent counseling/coordinating care.
[2021-11-16] MEDS: methADONE HCl 20 MG/2 ML ORAL.CONC 5 MG PO (16:37)
[2021-11-16] MEDS: Cyclobenzaprine HCl 10 MG TABLET PO (16:37)
[2021-11-16] MEDS: hydrOXYzine HCL 25 MG TABLET PO (18:22)
[2021-11-16] MEDS: QUEtiapine Fumarate 50 MG TABLET PO (20:21)
[2021-11-16] MEDS: Prazosin HCL 1 MG CAPSULE PO (20:22)
[2021-11-16 21:46] VITALS: BP 129/67; PULSE 99; RESP 18; TEMP 36.8; O2SAT 98
[2021-11-17 06:00] VITALS: BP 112/75; PULSE 86; RESP 16; TEMP 37
[2021-11-17] MEDS: methADONE HCl 20 MG/2 ML ORAL.CONC 35 MG PO (08:16)
[2021-11-17] MEDS: buPROPion HCl XL 150 MG TAB.ER.24H PO (08:17)
[2021-11-17] MEDS: Gabapentin 600 MG TABLET PO ×3 (08:17→21:34)
[2021-11-17] MEDS: Famotidine 20 MG TABLET PO ×2 (08:18→21:35)
[2021-11-17] MEDS: lamoTRIgine 100 MG TABLET PO (08:18)
[2021-11-17] MEDS: Nicotine Polacrilex 2 MG GUM 4 MG BUCCAL ×4 (08:25→21:35)
[2021-11-17] MEDS: LORazepam 1 MG TABLET PO ×2 (08:25→21:35)
[2021-11-17 09:14] LABS: Alanine Aminotransferase 158 U/L (0-40); Albumin Level 3.8 g/dL (3.5-5.0); Alkaline Phosphatase 110 U/L (39-117); Anion Gap 10 (12-20); Aspartate Amino Transferase 96 U/L (5-37); Bilirubin Total 0.4 mg/dL (0.0-1.0); Blood Urea Nitrogen 16 mg/dL (9-16); Calcium 9.2 mg/dL (8.4-10.2); Carbon Dioxide 30 mmol/L (22-29); Chloride 97 mmol/L (96-108); Creatinine Clr Calc Pharmacy 121.4; Estimated Glomerular Filt Rate > 60; Glucose Random 84 mg/dL (60-115); Potassium 3.2 mmol/L (3.3-5.1); Sodium 134 mmol/L (135-145); Total Protein 7.3 g/dL (6.5-8.0)
--- NOTE | 2021-11-17 10:27 | P.PNPSI_ITS ---
Subjective Subjective Date of Service: 11/17/21 Reason For Visit: si Subjective Notes: Conditional Voluntary Medical Problems Affecting Mental Status: No Interim History: Patient was seen and discussed in rounds today. He has been having some unsteady gait and fell 2 nights ago. He states that his Adderall was not started. He has been on 30 mg b.i.d. which was verified at [facility] [place]. He denies any other complaints or side effects. Eating and sleeping adequately. No SI. The staff had mentioned that he may have access to guns which is something that may need to be verified before discharge. Adderall was put in place. No other changes were made Medication Compliance: Yes Review of Systems Review of Systems Yes all other systems are reviewed and are negative Mental Status Exam Mental Status Exam Narrative: Patient was seen today. He is alert, oriented and pleasant. Normal speech. Good eye contact. Affect is appropriate and varied. No signs of psychosis. No SI. Cognitively intact. Judgment is intact Diagnostics Vital Signs (24Hr): Vital Signs - 24 hr 11/16/21 21:46 11/17/21 06:00 Temperature 98.3 F 98.6 F Pulse Rate 99 86 Respiratory Rate 18 16 Blood Pressure 129/67 112/75 Pulse Oximetry 98 BMI result Body Mass Index 19.7 Labs Results: 11/16/21 01:52 11/17/21 08:23 Labs: Laboratory Results - last 48 hr 11/16/21 11/16/21 11/16/21 00:07 01:52 01:53 WBC 10.7 RBC 5.90 H D Hgb 16.0 D Hct 48.2 D MCV 81.7 MCH 27.1 MCHC 33.2 RDW 13.6 Plt Count 323 D MPV 9.0 L Immature Gran % (Auto) 0.2 Neut % (Auto) 65.7 Lymph % (Auto) 21.2 [place] % (Auto) 11.6 H Eos % (Auto) 0.8 Baso % (Auto) 0.5 Lymph # (Auto) 2.3 [place] # (Auto) 1.2 Eos # (Auto) 0.1 Baso # (Auto) 0.1 Abs Immat Gran (auto) 0.02 Absolute Neuts (auto) 7.0 Absolute Nucleated RBC 0.000 Nucleated RBC % (auto) 0.0 Sodium 130 L Potassium 3.3 Chloride 87 L Carbon Dioxide 26 Anion Gap 20 BUN 55 H Creatinine 2.23 H Estim Creat Clear Calc 37.0 Estimated GFR 34 POC Glucose 139 H Random Glucose 139 H Lactic Acid Calcium 9.6 Total Bilirubin AST ALT Alkaline Phosphatase Troponin I High Sens Total Protein Albumin 11/16/21 11/16/21 11/17/21 01:53 01:53 08:23 WBC RBC Hgb Hct MCV MCH MCHC RDW Plt Count MPV Immature Gran % (Auto) Neut % (Auto) Lymph % (Auto) [place] % (Auto) Eos % (Auto) Baso % (Auto) Lymph # (Auto) [place] # (Auto) Eos # (Auto) Baso # (Auto) Abs Immat Gran (auto) Absolute Neuts (auto) Absolute Nucleated RBC Nucleated RBC % (auto) Sodium 134 L Potassium 3.2 L Chloride 97 Carbon Dioxide 30 H Anion Gap 10 L BUN 16 D Creatinine 0.68 Estim Creat Clear Calc 121.4 Estimated GFR > 60 POC Glucose Random Glucose 84 D Lactic Acid 1.9 Calcium 9.2 Total Bilirubin 0.4 AST 96 H ALT 158 H Alkaline Phosphatase 110 D Troponin I High Sens 32.8 Total Protein 7.3 Albumin 3.8 Imaging Radiology Impressions: ITS Impressions Cervical Spine CT 11/16/21 00:30 IMPRESSION: 1. No acute intracranial finding. 2. No fracture or malalignment of the cervical spine. 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 Head CT 11/16/21 00:30 IMPRESSION: 1. No acute intracranial finding. 2. No fracture or malalignment of the cervical spine. 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 Hip X-Ray 11/16/21 01:15 IMPRESSION: Unremarkable appearance of the left hip/pelvis. Medications Medications Current Medications Acetaminophen (Acetaminophen 325 Mg Tablet) 650 mg PO Q6H PRN PRN Reason: Headache/Pain Mild Scale (1-3) Al Hydroxide/Mg Hydroxide (Magnesium Hydrox/Alum Hydrox 30 Ml Oral.Susp) 30 ml PO Q6H PRN PRN Reason: Heartburn/Nausea Last Admin: 11/13/21 23:12 Dose: 30 ml Documented by: Bupropion HCl (Bupropion Hcl Xl 150 Mg Tab.Er.24h) 150 mg PO DAILY ERNA Last Admin: 11/17/21 08:17 Dose: 150 mg Documented by: Clonidine HCl (Clonidine Hcl 0.1 Mg Tablet) 0.1 mg PO Q6H PRN; Protocol PRN Reason: opioid withdrawal/anxiety Last Admin: 11/14/21 22:32 Dose: 0.1 mg Documented by: Cyclobenzaprine HCl (Cyclobenzaprine Hcl 10 Mg Tablet) 10 mg PO Q6H PRN PRN Reason: Muscle Spasm Last Admin: 11/16/21 16:37 Dose: 10 mg Documented by: Famotidine (Famotidine 20 Mg Tablet) 20 mg PO BID [facility] Last Admin: 11/17/21 08:18 Dose: 20 mg Documented by: Gabapentin (Gabapentin 600 Mg Tablet) 600 mg PO TID [facility] Last Admin: 11/17/21 08:17 Dose: 600 mg Documented by: Hydroxyzine HCl (Hydroxyzine Hcl 25 Mg Tablet) 25 mg PO Q6H PRN PRN Reason: Anxiety Last Admin: 11/16/21 18:22 Dose: 25 mg Documented by: Lamotrigine (Lamotrigine 100 Mg Tablet) 100 mg PO DAILY [facility] Last Admin: 11/17/21 08:18 Dose: 100 mg Documented by: Loperamide HCl (Loperamide Hcl 2 Mg Capsule) 2 mg PO Q6H PRN PRN Reason: loose stools Lorazepam (Lorazepam 1 Mg Tablet) 1 mg PO Q4H PRN PRN Reason: Anxiety Last Admin: 11/17/21 08:25 Dose: 1 mg Documented by: Magnesium Hydroxide (Milk Of Magnesia 30 Ml Oral.Susp) 30 ml PO DAILY PRN PRN Reason: Constipation Methadone HCl (Methadone Hcl 20 Mg/2 Ml Oral.Conc) 35 mg PO DAILY [facility] Last Admin: 11/17/21 08:16 Dose: 35 mg Documented by: Methadone HCl (Methadone Hcl 20 Mg/2 Ml Oral.Conc) 5 mg PO ONCE PRN PRN Reason: Opiate Withdrawal Last Admin: 11/16/21 16:37 Dose: 5 mg Documented by: Nicotine Polacrilex (Nicotine Polacrilex 2 Mg Gum) 4 mg BUCCAL Q2H PRN PRN Reason: smoking cravings Last Admin: 11/17/21 08:25 Dose: 4 mg Documented by: Ondansetron HCl (Ondansetron Odt 4 Mg Tab.Rapdis) 8 mg TRANSLINGU Q6H PRN PRN Reason: Nausea Last Admin: 02/24/22 15:26 Dose: 8 mg Documented by: Prazosin HCl (Prazosin Hcl 1 Mg Capsule) 1 mg PO BEDTIME ERNA; Protocol Last Admin: 11/16/21 20:22 Dose: 1 mg Documented by: Promethazine HCl (Promethazine Hcl 25 Mg Tablet) 25 mg PO Q4H PRN PRN Reason: Vomiting Last Admin: 11/15/21 11:37 Dose: 25 mg Documented by: Quetiapine Fumarate (Quetiapine Fumarate 50 Mg Tablet) 50 mg PO Q6H PRN PRN Reason: anxiety/agitation Last Admin: 11/14/21 22:32 Dose: 50 mg Documented by: Quetiapine Fumarate (Quetiapine Fumarate 50 Mg Tablet) 50 mg PO BEDTIME ERNA Last Admin: 11/16/21 20:21 Dose: 50 mg Documented by: Trazodone HCl (Trazodone Hcl 50 Mg Tablet) 50 mg PO BEDTIME PRN PRN Reason: Insomnia Allergies Allergies Allergy/AdvReac Type Severity Reaction Status Date / Time haloperidol [From HALDOL] AdvReac Intermediate LOCK JAW Verified 11/12/21 20:59 olanzapine [From ZYPREXA] AdvReac Unknown PT REPORTS Verified 11/12/21 20:59 FEELS LIKE I AM ON AN ACID TRIP Assessment & Plan Assessment & Plan (1) Opioid use disorder, severe, dependence: Status: Acute Code(s): F11.20 - Opioid dependence, uncomplicated Assessment and Plan: Continues with opioid withdrawals and cravings, although reports symptoms are starting to lessen, states he has been able to eat today without as much N&V. Plan Addiction service plan: 1. add one methadone 5mg dose this evening, as a prn, for withdrawal management. 2. Follow-up with patient over weekend to assess withdrawals. PLAN: CV, 15 minutes checks for safety. Continue current medications KEVIN- dehydration, follow up CMP for 11/17/21 Less opioid withdrawal s/s We discussed no adderall given risk of misuse/abuse of medication as pt continued to work on recovery. 1. continue methadone 35 mg today. 2. Continue other comfort/withdrawal medications as prescribed. 3. Addiction service will follow this patient along. 11/17: Continue current regimen and plan. Adderall 30 mg b.i.d. was put in place I spent minutes with the patient and/or on the patient floor today, greater than?50% of which was spent counseling/coordinating care. Patient educated on: medication risk/benefits Reason for contiued inpatient stay Substantial Risk for: other
[2021-11-17] MEDS: methADONE HCl 20 MG/2 ML ORAL.CONC 5 MG PO (12:08)
[2021-11-17] MEDS: hydrOXYzine HCL 25 MG TABLET PO (12:08)
[2021-11-17] MEDS: Amphetamine Mixed Salts 20 MG TABLET 30 MG PO (15:38)
[2021-11-17 18:00] VITALS: BP 135/83; PULSE 101; RESP 14; TEMP 36.4; O2SAT 96
[2021-11-17] MEDS: Prazosin HCL 1 MG CAPSULE PO (21:34)
[2021-11-17] MEDS: QUEtiapine Fumarate 50 MG TABLET PO (21:34)
[2021-11-17] MEDS: Cyclobenzaprine HCl 10 MG TABLET PO (21:35)
[2021-11-17] MEDS: Albuterol Sulfate 90 MCG 8 GM INHALER 2 PUFF INHALE (23:42)
[2021-11-17] MEDS: Artificial Tears 15 ML DROPS 2 DROP EYE-BOTH (23:42)
[2021-11-18 06:00] VITALS: BP 123/77; PULSE 77; RESP 16; TEMP 36.4; O2SAT 99
--- NOTE | 2021-11-18 08:33 | P.PNPSI_ITS ---
Subjective Subjective Date of Service: 11/18/21 Reason For Visit: si Subjective Notes: Conditional Voluntary Medical Problems Affecting Mental Status: Yes (fall risk) Interim History: Patient was seen and discussed in rounds today. He is on 5 minute checks put so we took him off one-to-one level observation last night because he is doing much better. He is eating and sleeping adequately. No episodes of dizziness. He is talkative, restless at times. No complaints or side effects. No changes were made today. Is happy that his Adderall was put in place Medication Compliance: Yes Side effects from medications: No Review of Systems Review of Systems Yes all other systems are reviewed and are negative Mental Status Exam Mental Status Exam Narrative: Patient was seen today. He is alert, oriented and pleasant. Normal speech. Good eye contact. Affect is appropriate and varied. No signs of psychosis. No SI. Cognitively intact. Judgment is intact Diagnostics Vital Signs (24Hr): Vital Signs - 24 hr 11/17/21 18:00 Temperature 97.6 F Pulse Rate 101 H Respiratory Rate 14 Blood Pressure 135/83 Pulse Oximetry 96 BMI result Body Mass Index 19.7 Labs Results: 11/16/21 01:52 11/17/21 08:23 Labs: Laboratory Results - last 48 hr 11/17/21 08:23 Sodium 134 L Potassium 3.2 L Chloride 97 Carbon Dioxide 30 H Anion Gap 10 L BUN 16 D Creatinine 0.68 Estim Creat Clear Calc 121.4 Estimated GFR > 60 Random Glucose 84 D Calcium 9.2 Total Bilirubin 0.4 AST 96 H ALT 158 H Alkaline Phosphatase 110 D Total Protein 7.3 Albumin 3.8 Imaging Radiology Impressions: ITS Impressions Cervical Spine CT 11/16/21 00:30 IMPRESSION: 1. No acute intracranial finding. 2. No fracture or malalignment of the cervical spine. 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 Head CT 11/16/21 00:30 IMPRESSION: 1. No acute intracranial finding. 2. No fracture or malalignment of the cervical spine. 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 Hip X-Ray 11/16/21 01:15 IMPRESSION: Unremarkable appearance of the left hip/pelvis. Medications Medications Current Medications Acetaminophen (Acetaminophen 325 Mg Tablet) 650 mg PO Q6H PRN PRN Reason: Headache/Pain Mild Scale (1-3) Al Hydroxide/Mg Hydroxide (Magnesium Hydrox/Alum Hydrox 30 Ml Oral.Susp) 30 ml PO Q6H PRN PRN Reason: Heartburn/Nausea Last Admin: 11/13/21 23:12 Dose: 30 ml Documented by: Albuterol Sulfate (Albuterol Sulfate 90 Mcg 8 Gm Inhaler) 2 puff INHALE Q2H PRN PRN Reason: Shortness of Breath Last Admin: 11/17/21 23:42 Dose: 2 puff Documented by: Amphetamine/Dextroamphetamine (Amphetamine Mixed Salts 20 Mg Tablet) 30 mg PO BID@0900,1400 [facility] Last Admin: 11/17/21 15:38 Dose: 30 mg Documented by: Artificial Tears (Artificial Tears 15 Ml Drops) 2 drop EYE-BOTH Q4H PRN PRN Reason: Dry Eyes Last Admin: 11/17/21 23:42 Dose: 2 drop Documented by: Bupropion HCl (Bupropion Hcl Xl 150 Mg Tab.Er.24h) 150 mg PO DAILY [facility] Last Admin: 11/17/21 08:17 Dose: 150 mg Documented by: Clonidine HCl (Clonidine Hcl 0.1 Mg Tablet) 0.1 mg PO Q6H PRN; Protocol PRN Reason: opioid withdrawal/anxiety Last Admin: 11/14/21 22:32 Dose: 0.1 mg Documented by: Cyclobenzaprine HCl (Cyclobenzaprine Hcl 10 Mg Tablet) 10 mg PO Q6H PRN PRN Reason: Muscle Spasm Last Admin: 11/17/21 21:35 Dose: 10 mg Documented by: Famotidine (Famotidine 20 Mg Tablet) 20 mg PO BID [facility] Last Admin: 11/17/21 21:35 Dose: 20 mg Documented by: Gabapentin (Gabapentin 600 Mg Tablet) 600 mg PO TID [facility] Last Admin: 11/17/21 21:34 Dose: 600 mg Documented by: Hydroxyzine HCl (Hydroxyzine Hcl 25 Mg Tablet) 25 mg PO Q6H PRN PRN Reason: Anxiety Last Admin: 11/17/21 12:08 Dose: 25 mg Documented by: Lamotrigine (Lamotrigine 100 Mg Tablet) 100 mg PO DAILY [facility] Last Admin: 11/17/21 08:18 Dose: 100 mg Documented by: Loperamide HCl (Loperamide Hcl 2 Mg Capsule) 2 mg PO Q6H PRN PRN Reason: loose stools Lorazepam (Lorazepam 1 Mg Tablet) 1 mg PO Q4H PRN PRN Reason: Anxiety Last Admin: 11/17/21 21:35 Dose: 1 mg Documented by: Magnesium Hydroxide (Milk Of Magnesia 30 Ml Oral.Susp) 30 ml PO DAILY PRN PRN Reason: Constipation Methadone HCl (Methadone Hcl 20 Mg/2 Ml Oral.Conc) 35 mg PO DAILY ERNA Last Admin: 11/17/21 08:16 Dose: 35 mg Documented by: Methadone HCl (Methadone Hcl 20 Mg/2 Ml Oral.Conc) 5 mg PO DAILY PRN PRN Reason: Opiate Withdrawal Last Admin: 11/17/21 12:08 Dose: 5 mg Documented by: Nicotine Polacrilex (Nicotine Polacrilex 2 Mg Gum) 4 mg BUCCAL Q2H PRN PRN Reason: smoking cravings Last Admin: 11/17/21 21:35 Dose: 4 mg Documented by: Ondansetron HCl (Ondansetron Odt 4 Mg Tab.Rapdis) 8 mg TRANSLINGU Q6H PRN PRN Reason: Nausea Last Admin: 11/15/21 15:26 Dose: 8 mg Documented by: Prazosin HCl (Prazosin Hcl 1 Mg Capsule) 1 mg PO BEDTIME ERNA; Protocol Last Admin: 11/17/21 21:34 Dose: 1 mg Documented by: Promethazine HCl (Promethazine Hcl 25 Mg Tablet) 25 mg PO Q4H PRN PRN Reason: Vomiting Last Admin: 11/15/21 11:37 Dose: 25 mg Documented by: Quetiapine Fumarate (Quetiapine Fumarate 50 Mg Tablet) 50 mg PO Q6H PRN PRN Reason: anxiety/agitation Last Admin: 11/14/21 22:32 Dose: 50 mg Documented by: Quetiapine Fumarate (Quetiapine Fumarate 50 Mg Tablet) 50 mg PO BEDTIME ERNA Last Admin: 11/17/21 21:34 Dose: 50 mg Documented by: Trazodone HCl (Trazodone Hcl 50 Mg Tablet) 50 mg PO BEDTIME PRN PRN Reason: Insomnia Allergies Allergies Allergy/AdvReac Type Severity Reaction Status Date / Time haloperidol [From HALDOL] AdvReac Intermediate LOCK JAW Verified 11/12/21 20:59 olanzapine [From ZYPREXA] AdvReac Unknown PT REPORTS Verified 11/12/21 20:59 FEELS LIKE I AM ON AN ACID TRIP Assessment & Plan Assessment & Plan (1) Opioid use disorder, severe, dependence: Status: Acute Code(s): F11.20 - Opioid dependence, uncomplicated Assessment and Plan: Continues with opioid withdrawals and cravings, although reports symptoms are starting to lessen, states he has been able to eat today without as much N&V. Plan Addiction service plan: 1. add one methadone 5mg dose this evening, as a prn, for withdrawal management. 2. Follow-up with patient over weekend to assess withdrawals. PLAN: CV, 15 minutes checks for safety. Continue current medications KEVIN- dehydration, follow up CMP for 11/17/21 Less opioid withdrawal s/s We discussed no adderall given risk of misuse/abuse of medication as pt continued to work on recovery. 1. continue methadone 35 mg today. 2. Continue other comfort/withdrawal medications as prescribed. 3. Addiction service will follow this patient along. 11/17: Continue current regimen and plan. Adderall 30 mg b.i.d. was put in place 11/18: Continue current regimen and plans I spent minutes with the patient and/or on the patient floor today, greater than?50% of which was spent counseling/coordinating care. Reason for contiued inpatient stay Substantial Risk for: other
[2021-11-18] MEDS: Amphetamine Mixed Salts 20 MG TABLET 30 MG PO ×2 (09:30→14:18)
[2021-11-18] MEDS: buPROPion HCl XL 150 MG TAB.ER.24H PO (09:31)
[2021-11-18] MEDS: Gabapentin 600 MG TABLET PO ×3 (09:32→21:27)
[2021-11-18] MEDS: Famotidine 20 MG TABLET PO ×2 (09:32→21:27)
[2021-11-18] MEDS: lamoTRIgine 100 MG TABLET PO (09:32)
[2021-11-18] MEDS: methADONE HCl 20 MG/2 ML ORAL.CONC 5 MG PO ×2 (09:45→14:16)
[2021-11-18] MEDS: methADONE HCl 20 MG/2 ML ORAL.CONC 35 MG PO (09:45)
[2021-11-18] MEDS: Nicotine Polacrilex 2 MG GUM 4 MG BUCCAL ×4 (10:22→23:02)
--- NOTE | 2021-11-18 13:09 | HO.ADDICTPRO ---
Subjective Subjective Date of Service: 11/17/21 Reason For Visit: si Subjective Notes: Conditional Voluntary Guardianship: No Medical Problems Affecting Mental Status: Yes (fall risk) Interim History: Met with patient to discuss withdrawal and craving symptom management, including methadone dose titration, as well as follow-up plans regarding methadone clinic referral once he nears discharge. He would prefer to be referred to clinic in [place], as that is where he plans to live upon discharge. He has received methadone 80mg as a stable dose while engaged in clinic in the past. Withdrawals currently managed, continues with some cravings. Asking for small dose increase to help prevent relapse upon discharge. Review of Systems Review of Systems Yes all other systems are reviewed and are negative Constitutional: Reports no additional constitutional complaints Mental Status Exam Mental Status Exam Narrative: Thin male, in NAD. Ambulated about room, gait slow/steady. No abnormal movements, no tics/tremors, no overt signs of opioid withdrawals noted. Patient Appearance: Disheveled and Appropriate Patient Orientation: Person, Place, Time and Situation Level of Consciousness: Appropriate Patient Behavior: Appropriate and Cooperative Mood Description: Appropriate Affect Description: Depressed and Anxious Patient Cognition Impaired: No Ability to Follow Directions: Good Speech Pattern: Clear, Appropriate and Coherent Memory Description: Intact Hallucinations: None Delusions: Not Present Thought Process: Intact Thought Content: positive for Intact Depressive Symptoms: Increased Anxiety Judgement: Fair Diagnostics Vital Signs (24Hr): Vital Signs - 24 hr 11/17/21 18:00 11/18/21 06:00 Temperature 97.6 F 97.5 F Pulse Rate 101 H 77 Respiratory Rate 14 16 Blood Pressure 135/83 123/77 Pulse Oximetry 96 99 BMI result Body Mass Index 19.7 Labs Results: 11/16/21 01:52 11/17/21 08:23 Labs: Laboratory Results - last 48 hr 11/17/21 08:23 Sodium 134 L Potassium 3.2 L Chloride 97 Carbon Dioxide 30 H Anion Gap 10 L BUN 16 D Creatinine 0.68 Estim Creat Clear Calc 121.4 Estimated GFR > 60 Random Glucose 84 D Calcium 9.2 Total Bilirubin 0.4 AST 96 H ALT 158 H Alkaline Phosphatase 110 D Total Protein 7.3 Albumin 3.8 Imaging Radiology Impressions: ITS Impressions Cervical Spine CT 11/16/21 00:30 IMPRESSION: 1. No acute intracranial finding. 2. No fracture or malalignment of the cervical spine. 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 Head CT 11/16/21 00:30 IMPRESSION: 1. No acute intracranial finding. 2. No fracture or malalignment of the cervical spine. 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 Hip X-Ray 11/16/21 01:15 IMPRESSION: Unremarkable appearance of the left hip/pelvis. Medications Medications Current Medications Acetaminophen (Acetaminophen 325 Mg Tablet) 650 mg PO Q6H PRN PRN Reason: Headache/Pain Mild Scale (1-3) Al Hydroxide/Mg Hydroxide (Magnesium Hydrox/Alum Hydrox 30 Ml Oral.Susp) 30 ml PO Q6H PRN PRN Reason: Heartburn/Nausea Last Admin: 11/13/21 23:12 Dose: 30 ml Documented by: Albuterol Sulfate (Albuterol Sulfate 90 Mcg 8 Gm Inhaler) 2 puff INHALE Q2H PRN PRN Reason: Shortness of Breath Last Admin: 11/17/21 23:42 Dose: 2 puff Documented by: Amphetamine/Dextroamphetamine (Amphetamine Mixed Salts 20 Mg Tablet) 30 mg PO BID@0900,1400 [facility] Last Admin: 11/18/21 09:30 Dose: 30 mg Documented by: Artificial Tears (Artificial Tears 15 Ml Drops) 2 drop EYE-BOTH Q4H PRN PRN Reason: Dry Eyes Last Admin: 11/17/21 23:42 Dose: 2 drop Documented by: Bupropion HCl (Bupropion Hcl Xl 150 Mg Tab.Er.24h) 150 mg PO DAILY [facility] Last Admin: 11/18/21 09:31 Dose: 150 mg Documented by: Clonidine HCl (Clonidine Hcl 0.1 Mg Tablet) 0.1 mg PO Q6H PRN; Protocol PRN Reason: opioid withdrawal/anxiety Last Admin: 11/14/21 22:32 Dose: 0.1 mg Documented by: Cyclobenzaprine HCl (Cyclobenzaprine Hcl 10 Mg Tablet) 10 mg PO Q6H PRN PRN Reason: Muscle Spasm Last Admin: 11/17/21 21:35 Dose: 10 mg Documented by: Famotidine (Famotidine 20 Mg Tablet) 20 mg PO BID [facility] Last Admin: 11/18/21 09:32 Dose: 20 mg Documented by: Gabapentin (Gabapentin 600 Mg Tablet) 600 mg PO TID [facility] Last Admin: 11/18/21 09:32 Dose: 600 mg Documented by: Hydroxyzine HCl (Hydroxyzine Hcl 25 Mg Tablet) 25 mg PO Q6H PRN PRN Reason: Anxiety Last Admin: 11/17/21 12:08 Dose: 25 mg Documented by: Lamotrigine (Lamotrigine 100 Mg Tablet) 100 mg PO DAILY [facility] Last Admin: 11/18/21 09:32 Dose: 100 mg Documented by: Loperamide HCl (Loperamide Hcl 2 Mg Capsule) 2 mg PO Q6H PRN PRN Reason: loose stools Lorazepam (Lorazepam 1 Mg Tablet) 1 mg PO Q4H PRN PRN Reason: Anxiety Last Admin: 11/17/21 21:35 Dose: 1 mg Documented by: Magnesium Hydroxide (Milk Of Magnesia 30 Ml Oral.Susp) 30 ml PO DAILY PRN PRN Reason: Constipation Methadone HCl (Methadone Hcl 20 Mg/2 Ml Oral.Conc) 35 mg PO DAILY [facility] Last Admin: 11/18/21 09:45 Dose: 35 mg Documented by: Methadone HCl (Methadone Hcl 20 Mg/2 Ml Oral.Conc) 5 mg PO DAILY PRN PRN Reason: Opiate Withdrawal Last Admin: 11/18/21 09:45 Dose: 5 mg Documented by: Nicotine Polacrilex (Nicotine Polacrilex 2 Mg Gum) 4 mg BUCCAL Q2H PRN PRN Reason: smoking cravings Last Admin: 11/18/21 10:22 Dose: 4 mg Documented by: Ondansetron HCl (Ondansetron Odt 4 Mg Tab.Rapdis) 8 mg TRANSLINGU Q6H PRN PRN Reason: Nausea Last Admin: 11/15/21 15:26 Dose: 8 mg Documented by: Prazosin HCl (Prazosin Hcl 1 Mg Capsule) 1 mg PO BEDTIME [facility]; Protocol Last Admin: 11/17/21 21:34 Dose: 1 mg Documented by: Promethazine HCl (Promethazine Hcl 25 Mg Tablet) 25 mg PO Q4H PRN PRN Reason: Vomiting Last Admin: 11/15/21 11:37 Dose: 25 mg Documented by: Quetiapine Fumarate (Quetiapine Fumarate 50 Mg Tablet) 50 mg PO Q6H PRN PRN Reason: anxiety/agitation Last Admin: 11/14/21 22:32 Dose: 50 mg Documented by: Quetiapine Fumarate (Quetiapine Fumarate 50 Mg Tablet) 50 mg PO BEDTIME [facility] Last Admin: 11/17/21 21:34 Dose: 50 mg Documented by: Trazodone HCl (Trazodone Hcl 50 Mg Tablet) 50 mg PO BEDTIME PRN PRN Reason: Insomnia Allergies Allergies Allergy/AdvReac Type Severity Reaction Status Date / Time haloperidol [From HALDOL] AdvReac Intermediate LOCK JAW Verified 11/12/21 20:59 olanzapine [From ZYPREXA] AdvReac Unknown PT REPORTS Verified 11/12/21 20:59 FEELS LIKE I AM ON AN ACID TRIP Assessment & Plan Assessment & Plan (1) Opioid use disorder, severe, dependence: Status: Acute Code(s): F11.20 - Opioid dependence, uncomplicated Assessment and Plan: Met with patient to discuss withdrawal and craving symptom management, including methadone dose titration, as well as follow-up plans regarding methadone clinic referral once he nears discharge. He would prefer to be referred to clinic in [place], as that is where he plans to live upon discharge. He has received methadone 80mg as a stable dose while engaged in clinic in the past. Withdrawals currently managed, continues with some cravings. Asking for small dose increase to help prevent relapse upon discharge. Plan Addiction service plan 11/17/27 - 11/18/27: 1. Add methadone 5mg one time dose this evening prn. 2. D/c daily methadone prn dose. 3. Increase methadone daily dose to 45mg, start 11/19/21. 4. Addiction team staff to meet with patient regarding referral to methadone clinic, [facility]. Friday11/16/21 Addiction service plan: 1. add one methadone 5mg dose this evening, as a prn, for withdrawal management. 2. Follow-up with patient over weekend to assess withdrawals. PLAN: CV, 15 minutes checks for safety. Continue current medications KEVIN- dehydration, follow up CMP for 11/17/21 Less opioid withdrawal s/s We discussed no adderall given risk of misuse/abuse of medication as pt continued to work on recovery. 1. continue methadone 35 mg today. 2. Continue other comfort/withdrawal medications as prescribed. 3. Addiction service will follow this patient along. 11/17: Continue current regimen and plan. Adderall 30 mg b.i.d. was put in place 11/18: Continue current regimen and plans I spent minutes with the patient and/or on the patient floor today, greater than?50% of which was spent counseling/coordinating care. Education Patient educated on: diagnosis, medication risk/benefits, substance abuse and therapeutic strategies Informed Consent: understands
[2021-11-18] MEDS: Cyclobenzaprine HCl 10 MG TABLET PO (14:17)
[2021-11-18] MEDS: LORazepam 1 MG TABLET PO ×2 (14:17→19:45)
--- NOTE | 2021-11-18 14:50 | MHC.RECOVSUP ---
Recovery Support note: This junior copywriter met with patient to discuss withdrawal symptoms and recovery support. Patient reports he feels crampy and achy but that the methadone has been helping to minimize his withdrawal symptoms. Patient reports he has not had any cravings or dreams of using since he started methadone. Patient reports he has done well with methadone in the past and discussed issues he has had with Suboxone. Patient is optimistic that he will receive section 8 housing in the near future. Patient stated I'm sick of using. Patient reported to this junior copywriter that his sister needs his license number and he asked that I reach out to her to provide it. Patient only has DTA ID scanned into the medical record. Message left for sister (Griselda [phone]). Discussed case with Denise COUCH.
[2021-11-18 21:18] VITALS: BP 134/92; PULSE 98; RESP 16; TEMP 36.7; O2SAT 99
[2021-11-18] MEDS: Prazosin HCL 1 MG CAPSULE PO (21:27)
[2021-11-18] MEDS: QUEtiapine Fumarate 50 MG TABLET PO (21:27)
[2021-11-19 09:27] VITALS: BP 118/65; PULSE 110; RESP 18; TEMP 36.7; O2SAT 98
[2021-11-19] MEDS: methADONE HCl 20 MG/2 ML ORAL.CONC 45 MG PO (10:36)
[2021-11-19] MEDS: Amphetamine Mixed Salts 20 MG TABLET 30 MG PO ×2 (10:37→14:13)
[2021-11-19] MEDS: Gabapentin 600 MG TABLET PO ×3 (10:38→21:33)
[2021-11-19] MEDS: Famotidine 20 MG TABLET PO ×2 (10:39→21:33)
[2021-11-19] MEDS: buPROPion HCl XL 150 MG TAB.ER.24H PO (10:39)
[2021-11-19] MEDS: lamoTRIgine 100 MG TABLET PO (10:39)
--- NOTE | 2021-11-19 11:13 | P.PNPSI_ITS ---
Subjective Subjective Date of Service: 11/19/21 Reason For Visit: si Subjective Notes: Conditional Voluntary Interim History: Pt reports feeling better physically, no episodes of nausea or vomiting over the weekend, Pt reports eating better. CMP- improved kidney function and hyponatremia. Pt reports sleeping better too. He reports mood is better, less depressed, hopeful. He denies SI/HI. He hopes to get apartment through his PCP. Pt declines CSS at this moment if apartment is available. Per nursing, no behavioral concerns. Medication Compliance: Yes Side effects from medications: No Review of Systems Review of Systems A full review of systems was completed and was negative with the exception of pertinent positives noted in history of the presenting illness (HPI). Yes all other systems are reviewed and are negative Constitutional: Reports no additional constitutional complaints Mental Status Exam Mental Status Exam Narrative: Appearance: thin, casually groomed, good hygiene in NAD Behavior: cooperative Psychomotor: no agitation or retardation noted Speech: clear, normal rate/rhythm/volume, spontaneous TP: linear TC: no signs of psychosis, future oriented looking forward to find own housing. Mood: better Affect: brighter, non labile AH/VH: none HI/SI: denies Insight/judgment: fair x 2. Memory/cog: alert, oriented x 3. grossly intact to conversational testing. Diagnostics Vital Signs (24Hr): Vital Signs - 24 hr 11/18/21 21:18 11/19/21 09:27 Temperature 98.0 F 98.0 F Pulse Rate 98 110 H Respiratory Rate 16 18 Blood Pressure 134/92 H 118/65 Pulse Oximetry 99 98 BMI result Body Mass Index 19.7 Labs Results: 11/16/21 01:52 11/17/21 08:23 Imaging Radiology Impressions: ITS Impressions Cervical Spine CT 11/16/21 00:30 IMPRESSION: 1. No acute intracranial finding. 2. No fracture or malalignment of the cervical spine. 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 Head CT 11/16/21 00:30 IMPRESSION: 1. No acute intracranial finding. 2. No fracture or malalignment of the cervical spine. 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 Hip X-Ray 11/16/21 01:15 IMPRESSION: Unremarkable appearance of the left hip/pelvis. Medications Medications Current Medications Acetaminophen (Acetaminophen 325 Mg Tablet) 650 mg PO Q6H PRN PRN Reason: Headache/Pain Mild Scale (1-3) Al Hydroxide/Mg Hydroxide (Magnesium Hydrox/Alum Hydrox 30 Ml Oral.Susp) 30 ml PO Q6H PRN PRN Reason: Heartburn/Nausea Last Admin: 11/13/21 23:12 Dose: 30 ml Documented by: Albuterol Sulfate (Albuterol Sulfate 90 Mcg 8 Gm Inhaler) 2 puff INHALE Q2H PRN PRN Reason: Shortness of Breath Last Admin: 11/17/21 23:42 Dose: 2 puff Documented by: Amphetamine/Dextroamphetamine (Amphetamine Mixed Salts 20 Mg Tablet) 30 mg PO BID@0900,1400 [facility] Last Admin: 11/19/21 10:37 Dose: 30 mg Documented by: Artificial Tears (Artificial Tears 15 Ml Drops) 2 drop EYE-BOTH Q4H PRN PRN Reason: Dry Eyes Last Admin: 11/17/21 23:42 Dose: 2 drop Documented by: Bupropion HCl (Bupropion Hcl Xl 150 Mg Tab.Er.24h) 150 mg PO DAILY [facility] Last Admin: 11/19/21 10:39 Dose: 150 mg Documented by: Clonidine HCl (Clonidine Hcl 0.1 Mg Tablet) 0.1 mg PO Q6H PRN; Protocol PRN Reason: opioid withdrawal/anxiety Last Admin: 11/14/21 22:32 Dose: 0.1 mg Documented by: Cyclobenzaprine HCl (Cyclobenzaprine Hcl 10 Mg Tablet) 10 mg PO Q6H PRN PRN Reason: Muscle Spasm Last Admin: 11/18/21 14:17 Dose: 10 mg Documented by: Famotidine (Famotidine 20 Mg Tablet) 20 mg PO BID [facility] Last Admin: 11/19/21 10:39 Dose: 20 mg Documented by: Gabapentin (Gabapentin 600 Mg Tablet) 600 mg PO TID [facility] Last Admin: 11/19/21 10:38 Dose: 600 mg Documented by: Hydroxyzine HCl (Hydroxyzine Hcl 25 Mg Tablet) 25 mg PO Q6H PRN PRN Reason: Anxiety Last Admin: 11/17/21 12:08 Dose: 25 mg Documented by: Lamotrigine (Lamotrigine 100 Mg Tablet) 100 mg PO DAILY [facility] Last Admin: 11/19/21 10:39 Dose: 100 mg Documented by: Loperamide HCl (Loperamide Hcl 2 Mg Capsule) 2 mg PO Q6H PRN PRN Reason: loose stools Lorazepam (Lorazepam 1 Mg Tablet) 1 mg PO Q4H PRN PRN Reason: Anxiety Last Admin: 11/18/21 19:45 Dose: 1 mg Documented by: Magnesium Hydroxide (Milk Of Magnesia 30 Ml Oral.Susp) 30 ml PO DAILY PRN PRN Reason: Constipation Methadone HCl (Methadone Hcl 20 Mg/2 Ml Oral.Conc) 45 mg PO DAILY [facility] Last Admin: 11/19/21 10:36 Dose: 45 mg Documented by: Methadone HCl (Methadone Hcl 20 Mg/2 Ml Oral.Conc) 5 mg PO ONCE PRN PRN Reason: withdrawals.cravings Last Admin: 11/18/21 14:16 Dose: 5 mg Documented by: Nicotine Polacrilex (Nicotine Polacrilex 2 Mg Gum) 4 mg BUCCAL Q2H PRN PRN Reason: smoking cravings Last Admin: 11/18/21 23:02 Dose: 4 mg Documented by: Ondansetron HCl (Ondansetron Odt 4 Mg Tab.Rapdis) 8 mg TRANSLINGU Q6H PRN PRN Reason: Nausea Last Admin: 11/15/21 15:26 Dose: 8 mg Documented by: Prazosin HCl (Prazosin Hcl 1 Mg Capsule) 1 mg PO BEDTIME ERNA; Protocol Last Admin: 11/18/21 21:27 Dose: 1 mg Documented by: Promethazine HCl (Promethazine Hcl 25 Mg Tablet) 25 mg PO Q4H PRN PRN Reason: Vomiting Last Admin: 11/15/21 11:37 Dose: 25 mg Documented by: Quetiapine Fumarate (Quetiapine Fumarate 50 Mg Tablet) 50 mg PO Q6H PRN PRN Reason: anxiety/agitation Last Admin: 11/14/21 22:32 Dose: 50 mg Documented by: Quetiapine Fumarate (Quetiapine Fumarate 50 Mg Tablet) 50 mg PO BEDTIME ERNA Last Admin: 11/18/21 21:27 Dose: 50 mg Documented by: Trazodone HCl (Trazodone Hcl 50 Mg Tablet) 50 mg PO BEDTIME PRN PRN Reason: Insomnia Allergies Allergies Allergy/AdvReac Type Severity Reaction Status Date / Time haloperidol [From HALDOL] AdvReac Intermediate LOCK JAW Verified 11/12/21 20:59 olanzapine [From ZYPREXA] AdvReac Unknown PT REPORTS Verified 11/12/21 20:59 FEELS LIKE I AM ON AN ACID TRIP Assessment & Plan Assessment & Plan (1) Opioid use disorder, severe, dependence: Status: Acute Code(s): F11.20 - Opioid dependence, uncomplicated Assessment and Plan: Continues with opioid withdrawal symptoms present, including body aches, chills, diaphoresis, restless legs, nausea and vomiting. Plan Mr. Howard is a 35 year-old male with extensive hx of opioid use disorder, MDD, who self presented to [facility] ED reporting increase depression, suicidal thoughts with plan to hand himself. Pt positive for opiods/fentanyl. He reports he wants to start methadone MAT. We discussed risks, benefits and alternative treatment options. Pt reports wellbutrin was beneficial for mood and would like to restart it. PLAN 1. admit to M3, CV 15 minutes checks 2. increase wellbutrin XR 300mg po daily on 11/19 3. addiction consult to start methadone as MAT or taper 4. comfort meds for opioid withdrawal- much improved 5. Aftercare planning. 11/16: Pt was seen by employee communications specialist for comfort meds, methadone titration. In active withdrawal, encourage fluids. I spent minutes with the patient and/or on the patient floor today, greater than?50% of which was spent counseling/coordinating care. Reason for contiued inpatient stay Substantial Risk for: harm to self
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
[2021-11-19] MEDS: LORazepam 1 MG TABLET PO ×2 (13:04→21:33)
[2021-11-19] MEDS: Cyclobenzaprine HCl 10 MG TABLET PO ×2 (13:05→21:33)
[2021-11-19] MEDS: Nicotine Polacrilex 2 MG GUM 4 MG BUCCAL ×4 (13:07→21:33)
[2021-11-19 21:31] VITALS: BP 134/82; PULSE 99; TEMP 36.9; O2SAT 100
[2021-11-19] MEDS: Prazosin HCL 1 MG CAPSULE PO (21:32)
[2021-11-19] MEDS: QUEtiapine Fumarate 50 MG TABLET PO (21:32)
[2021-11-20 08:50] VITALS: BP 114/56; PULSE 85; RESP 20; TEMP 36.8; O2SAT 97
--- NOTE | 2021-11-20 08:53 | PM.PSYDC ---
DS: Providers Provider Date of Service: 11/20/21 Date of admission: 11/13/21 20:17 Primary care physician: Unknown Physician DS: Diagnosis Discharge Diagnosis (1) MDD (major depressive disorder), recurrent episode, moderate: Status: Acute (2) Opioid use disorder, severe, dependence: Status: Acute DS: Medications Discharge Medications Home Medications: Home Medications Medication Instructions Recorded Confirmed albuterol sulfate 90 mcg/actuation 2 puff INHALATION Q4H PRN 11/13/21 11/13/21 aerosol inhaler gabapentin 600 mg tablet 600 mg PO TID 11/13/21 11/13/21 lamotrigine 100 mg tablet 100 mg PO DAILY 11/13/21 11/13/21 prazosin 1 mg capsule 1 mg PO BEDTIME 11/13/21 11/13/21 quetiapine 50 mg tablet (Seroquel) 50 mg PO BEDTIME 11/13/21 11/13/21 Previous Rx's Medication Instructions Recorded bupropion HCl 150 mg 24 hr tablet, 150 mg PO DAILY #0 tab 11/20/21 extended release famotidine 20 mg tablet 20 mg PO BID #30 tab 11/20/21 methadone 10 mg/mL oral 50 mg (5 mL) PO DAILY #0 ml 11/20/21 concentrate (Methadose) Mental Status Exam Mental Status Exam Narrative: Appearance: thin, casually groomed, good hygiene in NAD Behavior: cooperative Psychomotor: no agitation or retardation noted Speech: clear, normal rate/rhythm/volume, spontaneous TP: linear TC: no signs of psychosis, future oriented looking forward to find own housing. Mood: better Affect: brighter, non labile AH/VH: none HI/SI: denies Insight/judgment: fair x 2. Memory/cog: alert, oriented x 3. grossly intact to conversational testing. Data Data Completed and Pending Completed studies during hospitalization [Text1]: 11/13/21 11/16/21 11/16/21 13:03 00:07 01:52 WBC 10.7 RBC 5.90 H D Hgb 16.0 D Hct 48.2 D MCV 81.7 MCH 27.1 MCHC 33.2 RDW 13.6 Plt Count 323 D MPV 9.0 L Immature Gran % (Auto) 0.2 Neut % (Auto) 65.7 Lymph % (Auto) 21.2 [place] % (Auto) 11.6 H Eos % (Auto) 0.8 Baso % (Auto) 0.5 Lymph # (Auto) 2.3 [place] # (Auto) 1.2 Eos # (Auto) 0.1 Baso # (Auto) 0.1 Abs Immat Gran (auto) 0.02 Absolute Neuts (auto) 7.0 Absolute Nucleated RBC 0.000 Nucleated RBC % (auto) 0.0 Sodium Potassium Chloride Carbon Dioxide Anion Gap BUN Creatinine Estim Creat Clear Calc Estimated GFR POC Glucose 139 H Random Glucose Lactic Acid Calcium Total Bilirubin AST ALT Alkaline Phosphatase Troponin I High Sens Total Protein Albumin Urine Opiates Screen Not Detected Urine Fentanyl Screen POSITIVE H Ur Barbiturates Screen Not Detected Ur Phencyclidine Scrn Not Detected Ur Amphetamines Screen Not Detected U Benzodiazepines Scrn Not Detected Urine Cocaine Screen POSITIVE H U Marijuana (THC) Screen POSITIVE H 11/16/21 11/16/21 11/16/21 01:53 01:53 01:53 WBC RBC Hgb Hct MCV MCH MCHC RDW Plt Count MPV Immature Gran % (Auto) Neut % (Auto) Lymph % (Auto) [place] % (Auto) Eos % (Auto) Baso % (Auto) Lymph # (Auto) [place] # (Auto) Eos # (Auto) Baso # (Auto) Abs Immat Gran (auto) Absolute Neuts (auto) Absolute Nucleated RBC Nucleated RBC % (auto) Sodium 130 L Potassium 3.3 Chloride 87 L Carbon Dioxide 26 Anion Gap 20 BUN 55 H Creatinine 2.23 H Estim Creat Clear Calc 37.0 Estimated GFR 34 POC Glucose Random Glucose 139 H Lactic Acid 1.9 Calcium 9.6 Total Bilirubin AST ALT Alkaline Phosphatase Troponin I High Sens 32.8 Total Protein Albumin Urine Opiates Screen Urine Fentanyl Screen Ur Barbiturates Screen Ur Phencyclidine Scrn Ur Amphetamines Screen U Benzodiazepines Scrn Urine Cocaine Screen U Marijuana (THC) Screen 11/17/21 08:23 WBC RBC Hgb Hct MCV MCH MCHC RDW Plt Count MPV Immature Gran % (Auto) Neut % (Auto) Lymph % (Auto) [place] % (Auto) Eos % (Auto) Baso % (Auto) Lymph # (Auto) [place] # (Auto) Eos # (Auto) Baso # (Auto) Abs Immat Gran (auto) Absolute Neuts (auto) Absolute Nucleated RBC Nucleated RBC % (auto) Sodium 134 L Potassium 3.2 L Chloride 97 Carbon Dioxide 30 H Anion Gap 10 L BUN 16 D Creatinine 0.68 Estim Creat Clear Calc 121.4 Estimated GFR > 60 POC Glucose Random Glucose 84 D Lactic Acid Calcium 9.2 Total Bilirubin 0.4 AST 96 H ALT 158 H Alkaline Phosphatase 110 D Troponin I High Sens Total Protein 7.3 Albumin 3.8 Urine Opiates Screen Urine Fentanyl Screen Ur Barbiturates Screen Ur Phencyclidine Scrn Ur Amphetamines Screen U Benzodiazepines Scrn Urine Cocaine Screen U Marijuana (THC) Screen Imaging Diagnostic Imaging Impressions Cervical Spine CT 11/16/21 00:30 IMPRESSION: 1. No acute intracranial finding. 2. No fracture or malalignment of the cervical spine. 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 Head CT 11/16/21 00:30 IMPRESSION: 1. No acute intracranial finding. 2. No fracture or malalignment of the cervical spine. 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 Hip X-Ray 11/16/21 01:15 IMPRESSION: Unremarkable appearance of the left hip/pelvis. DS: Summary Hospital Course Hospital Course: Mr. Howard is a 35 year-old male with hx of opioid use disorder who self presented [place] [facility] [place] reporting increased depressed mood, suicidal ideation with plan to hang himself. In the ED his utox is positive for fentanyl, opioid, cocaine. On the unit, Mr. Howard presents with physiological symptoms of opioid withdrawal including nausea, vomiting, sweating, abdominal cramps, muscle cramps. Pt given combination of comfort meds including zofran, loperamide, tylenol. Pt asks to be started on methadone. He states he does not want to be on suboxone anyone. He endorses depressed mood, anhedonia. He reports feeling overwhelmed with multiple stressors including lack of stable housing and limited social supports. He denies VH/AH. He reports his PCP through [facility] has been prescribing some of his psych medications including adderall. Pt reports using about one bag daily of fentanyl/heroin. He denies drinking alcohol. Past Psychiatric History: -Pt has an extensive hx of inpt hospitalizations, ATS, EATS, CSS, CCS, CSP, Recovery programs, and was section 35 on 09/01/17 and recently discharged from a section 35. He has a hx of multiple overdoses (over 30x).? -Psych prescriber is Dr. Rqauel Gao - of in 2013 by hanging Past med trials: Haloperidol (adverse rxn), Olanzapine (adverse rxn) Medical Evaluation Reviewed: Yes HOSPITAL COURSE On the unit, Mr. Howard was admitted on a CV and placed on 15 minutes checks for safety. Pt had difficult opioid withdrawal symptoms with significant GI symptoms, excessive vomiting that cause dehydration, dizziness and almost syncope and pt needed IV fluids. However, once s/s of withdrawal resolved, pt presented with brighter affect. He reported being motivated to continue treatment for both substance use and psychiatric treatment. After discussing risks, benefits and alternative treatment option, pt was continued on wellbutrin which pt reports has been helpful for depression. Pt reports he has been prescribed by his PCP Adderall, we discussed risks of misuse or abuse as pt continues working on recovery. Mr. Howard's affect gradually presented brighter. He reported less symptoms of depression. He denied SI/HI throughout this admission. He was sleeping and eating better once vomiting subsided. He was attending assigned groups. He stepped down to long term secured by [facility]. He works closely with staff from [facility] who are helping pt find housing and continue dual dx treatment. There were no incidences of disruptive behaviors nor use of restraints. Status at Discharge Cognitive/behavioral status at discharge: Mr. Howard presents with bright, non labile affect. Future oriented in that he is looking forward to continue OP psych and substance use treatment. He did not appear internally preoccupied. No VH/AH. No delusions reported or noted. No signs of aggression towards self or others. Pt was given narcan at time of discharge. Functional status at discharge: independent ambulation Overall status at discharge: patient is progressing back to baseline Time Spent with Patient Time attestation: Total time spent providing and/or coordinating discharge services: Time spent: Greater than 30 minutes Discharge Plan Discharge Patient Disposition: Home, Self-Care Discharge Diagnosis: Mdd, recurrent, moderate OPioid Use disorder [facility]) [Other] - 11/21/21 7:00 am (Bring last dose letter) [facility]quel Gao [Other] - 11/20/21 (PCP will prescribe medications and assist with long term placement) [facility] [Physician] - 1 Week Discharge Medications: New famotidine 20 mg Tablet 20 mg PO BID Qty: 30 0RF methadone [Methadose] 10 mg/mL Concentrate 50 mg PO DAILY Qty: 0 0RF bupropion HCl 150 mg Tablet Extended Release 24 Hr 150 mg PO DAILY Qty: 0 0RF Continued gabapentin 600 mg Tablet 600 mg PO TID 0RF prazosin 1 mg Capsule 1 mg PO BEDTIME 0RF lamotrigine 100 mg Tablet 100 mg PO DAILY 0RF quetiapine [Seroquel] 50 mg Tablet 50 mg PO BEDTIME 0RF albuterol sulfate 90 mcg/actuation Hfa Aerosol Inhaler 2 puff INHALATION Q4H PRN (Reason: Respiratory Distress) 0RF Discontinued buprenorphine-naloxone [Suboxone] 8-2 mg Film 1 film sublingual BID 0RF dextroamphetamine-amphetamine 30 mg tablet 1 tab PO BID 0RF bupropion HCl 150 mg Tablet Sustained-Release 12 Hr 150 mg PO DAILY 0RF Discharge Orders: Discharge Order (Routine); Ordered 11/20/21 Ordered By: Marii Ward Diet: advance to usual diet Activity on Discharge: As tolerated Stand Alone Forms: Patient Portal Discharge page, Community Support Care Plan Goals: Maintain mood No SI/HI Harm reduction: given narcan to take home Health Concerns: Follow up with PCP Plan of Treatment: 1. take medications as prescribed 2. Go to nearest ED or call 911 in event of emergency Assessment: Pt with bright affect, non labile. No signs of psychosis. No signs of aggression towards self or others. Future oriented in that he is looking forward to continue treatment through PCP office. No signs of psychosis. Given Narcan on discharge. Discharge Date/Time: 11/20/21 13:06
[2021-11-20] MEDS: methADONE HCl 20 MG/2 ML ORAL.CONC 50 MG PO (09:11)
[2021-11-20] MEDS: Famotidine 20 MG TABLET PO (09:12)
[2021-11-20] MEDS: lamoTRIgine 100 MG TABLET PO (09:12)
[2021-11-20] MEDS: Gabapentin 600 MG TABLET PO (09:12)
[2021-11-20] MEDS: buPROPion HCl XL 150 MG TAB.ER.24H PO (09:12)
--- NOTE | 2021-11-20 09:12 | MHC.RECOVRN ---
Pt has been accepted to [facility] in [place] and is requested to present at 7AM on 11/21. BRITNI and RN aware.
[2021-11-20] MEDS: Naloxone HCl Nasal TAKE HOME 4 MG SPRAY NOSTRILALT (09:13)
[2021-11-20] MEDS: Amphetamine Mixed Salts 20 MG TABLET 30 MG PO (09:35)
[2021-11-20] MEDS: Nicotine Polacrilex 2 MG GUM 4 MG BUCCAL (10:21)
--- NOTE | 2021-11-20 10:31 | PC.NURSE ---
Met w/ patient w/ discharge information. Patient appeared anxious, irritable. Stated he could not have medications faxed to [place]. Provider notified and met w/ patient. Patient discharge canceled, patient reports he is not yet ready to leave.
--- NOTE | 2021-11-20 12:26 | PC.NURSE ---
Late entry: plan reviewed w/ SW and provider - patient to be discharged today, pt's PCP has arranged for aftercare and will meet w/ pt today. Patient aware, states he is safe to be discharged.
== END 2021-11-20 13:06 | disposition home or self-care (01) | DRG 751 ==
LOC: HO.ED 11-13 19:13 → HO.PADLT16 11-13 22:22
PROVIDERS: Internal Medicine; Admitting Provider Social Worker; Emergency Provider Student in an Organized Health Care Education/Training Program; Visit Provider Social Worker
DX: F33.1 Major depressive disorder, recurrent, moderate (principal); N17.9 Acute kidney failure, unspecified; E86.0 Dehydration; R45.851 Suicidal ideations; F11.23 Opioid dependence with withdrawal; F17.210 Nicotine dependence, cigarettes, uncomplicated; Z20.822 Contact with and (suspected) exposure to COVID-19; Z71.6 Tobacco abuse counseling; Z79.899 Other long term (current) drug therapy
CPT/HCPCS: 36415; 70450; 72125; 73501; 80048; 80053; 80307; 82077; 82947; 83605; 84484; 85025; 87635; 93005; 99285

== ENCOUNTER 2022-07-09 18:37 | Inpatient (IN) | payer MEDICAID, SELFPAY ==
--- NOTE | ~2022-07-09 | CT_ITS ---
EXAMINATION: CT ANKLE, RIGHT WITH CONTRAST CLINICAL INFORMATION: Swelling, pain, fever. COMPARISON: Radiograph 07/09/2022 TECHNIQUE: Multidetector volumetric imaging of the right ankle performed after administration of 85 mL of Omnipaque 350 IV contrast. Coronal and sagittal reformatted images are obtained and reviewed. This CT examination was performed using dose optimization techniques as appropriate, variously including the following: *Automated exposure control *Adjustment of mA and/or kV according to patient size (this includes techniques or standardized protocols for targeted exams where dose is matched to indication/reason for exam; i.e. extremities or head) *Use of iterative reconstruction technique DLP: 178 mGy-cm FINDINGS: No fracture. Appropriate alignment at the ankle mortise. Degenerative changes along the mortise with osteophyte formation. There are no osseous erosions. There is diffuse soft tissue swelling circumferentially at the ankle. Fluid is noted tracking along the tibialis posterior and flexor digitorum longus tendons. There is also some calcification along the flexor digitorum within the tendon sheath. Thickening of the tibialis posterior tendon. There is also thickening of the flexor hallucis longus tendon focally. The extensor tendons are unremarkable. The peroneal tendons are unremarkable. There is no drainable fluid collection. CT/CT ankle RT w IV con IMPRESSION: 1. Diffuse soft tissue swelling of the ankle. No drainable fluid collection. 2. Thickening of the tibialis posterior and flexor digitorum longus tendons with fluid tracking along the tendon sheaths. This could be associated with tenosynovitis. There is also thickening of the flexor hallucis longus tendon focally. This could be tendinosis. 3. Degenerative changes of the ankle mortise.
--- NOTE | ~2022-07-09 | XR_ITS ---
EXAMINATION: XR CHEST CLINICAL INFORMATION: Chest pain and leg pain COMPARISON: 07/19/2021 TECHNIQUE: 2 views of the chest were obtained. FINDINGS: The heart and pulmonary vessels appear normal. No CHF or consolidations are seen. Slight deformity of the right hemidiaphragm with blunting laterally is unchanged when compared to the prior and represents probable chronic pleural thickening but a trace pleural effusion cannot be excluded. XR/XR chest 2V IMPRESSION: No acute intrathoracic disease.
--- NOTE | ~2022-07-09 | XR_ITS ---
EXAMINATION: XR ANKLE, RIGHT CLINICAL INFORMATION: Swelling and pain COMPARISON: None TECHNIQUE: AP, lateral, and mortise views of the right ankle. FINDINGS: No acute fracture or dislocation. Soft tissue swelling about the ankle most pronounced overlying the lateral malleolus. Ankle joint space is maintained. Small marginal osteophytes consistent with mild osteoarthritis. Small well-corticated bone fragment adjacent to the lateral talar process consistent with remote injury. Similar finding adjacent to the medial malleolus. XR/XR ankle RT 2V IMPRESSION: 1. No acute fracture or dislocation. 2. Soft tissue swelling about the ankle. 3. Mild tibiotalar joint osteoarthritis.
--- NOTE | ~2022-07-09 | NM_ITS ---
PULMONARY PERFUSION ONLY STUDY: CLINICAL INDICATION: Chest pain. PROCEDURE: Following the intravenous administration of 4.0 millicuries technetium 99m MAA, images of the chest were obtained in multiple projections using a gamma scintiphotographic camera. The radiotracer was injected through left hand superficial vein. COMPARISON: Chest radiograph done on 07/09/2022. FINDINGS: Chest radiograph shows bilateral clear lung bermudez. PERFUSION IMAGES: No segmental perfusion defects or other perfusion abnormalities are noted. NM/NM pul perfusion IMPRESSION: Based on perfusion only modified PIOPED 2 criteria, pulmonary thromboembolism is considered absent.
--- NOTE | ~2022-07-09 | CT_ITS ---
EXAMINATION: CT ANGIOGRAM OF THE CHEST WITH AND WITHOUT CONTRAST (CT PULMONARY ANGIOGRAM FOR PE) CLINICAL INFORMATION: Pleuritic chest pain. IV drug abuser COMPARISON: Chest radiograph earlier today and CT chest 06/11/2020 TECHNIQUE: Prior to contrast administration, noncontrast localization images were obtained. Subsequently, multidetector volumetric imaging was performed from the thoracic inlet to below the diaphragms following the administration of 65 mL Omnipaque 350 intravenous contrast. No contrast reaction reported Sagittal, coronal, and MIP oblique sagittal reformatted images were obtained on the CT workstation, uploaded to PACS, and reviewed. This CT examination was performed using dose optimization techniques as appropriate, variously including the following: *Automated exposure control *Adjustment of mA and/or kV according to patient size (this includes techniques or standardized protocols for targeted exams where dose is matched to indication/reason for exam; i.e. extremities or head) *Use of iterative reconstruction technique Total exam dose-length product 238 mGy-cm FINDINGS: QUALITY OF STUDY/CONTRAST BOLUS: Suboptimal. PULMONARY ARTERIES: No central or large segmental pulmonary emboli. Because of the quality of the bolus, the exam is limited. THORACIC AORTA: No aneurysm or dissection. LUNG: No focal consolidation, nodules or masses. PLEURA: No pleural effusion or pneumothorax. MEDIASTINUM: Normal heart size. No pericardial effusion. No hilar or mediastinal lymphadenopathy. No evidence of septal bowing or right heart strain. CHEST WALL/AXILLA: No axillary or internal mammary lymphadenopathy. OSSEOUS STRUCTURES: No acute or suspicious osseous abnormality. UPPER ABDOMEN: Spleen is enlarged measuring at least 16 cm in greatest dimension. I suspect that the liver is enlarged as well No reflux of contrast into the hepatic veins to suggest elevated right heart pressures. CT/CT angio chest PE protocol IMPRESSION: No evidence of pulmonary emboli in this limited study secondary to poor bolus. Incidentally noted splenomegaly. VTE: Negative but limited
--- NOTE | ~2022-07-09 | US_ITS ---
EXAMINATION: US VENOUS ULTRASOUND WITH DOPPLER LOWER EXTREMITY, BILATERAL CLINICAL INFORMATION: Bilateral lower extremity swelling COMPARISON: None TECHNIQUE: Ultrasound of the deep veins is performed from the hip to the calf with compression sonography and color and pulse Doppler assessment. Spectral analysis with color-flow imaging is performed. FINDINGS: RIGHT: There is normal venous compression and respiratory variation and augmented flow. The visualized common femoral vein, superficial femoral vein, profunda femoral vein, popliteal vein, and the trifurcation region shows no evidence of deep venous thrombosis. There is no significant popliteal fossa cyst. LEFT: There is normal venous compression and respiratory variation and augmented flow. The visualized common femoral vein, superficial femoral vein, profunda femoral vein, popliteal vein, and the trifurcation region shows no evidence of deep venous thrombosis. There is no significant popliteal fossa cyst. Bilateral benign-appearing lymph nodes. If the patient's symptoms persist, followup ultrasound in 5 days 7 days might be of value to exclude proximal propagation from a non-visualized calf vein. US/US venous duplex LE BI IMPRESSION: No DVT demonstrated in the bilateral lower extremities.
[2022-07-09 20:26] VITALS: BP 138/67; PULSE 94; RESP 16; TEMP 39.4; O2SAT 98; BMI 21.1
--- NOTE | 2022-07-09 20:32 | ECG_ITS ---
Test Reason : PAIN WITH INSPIRATION Blood Pressure : / mmHG Vent. Rate : 086 BPM Atrial Rate : 086 BPM P-R Int : 126 ms QRS Dur : 074 ms QT Int : 324 ms P-R-T Axes : 014 011 -01 degrees QTc Int : 387 ms Normal sinus rhythm Minimal voltage criteria for LVH, may be normal variant ( Sokolow-Lee ) T wave abnormality, consider anterior ischemia Abnormal ECG When compared with ECG of 13-NOV-2021 22:39, Vent. rate has increased BY 32 BPM Nonspecific T wave abnormality, worse in Lateral leads T wave amplitude has decreased in Inferior leads Referred By: Generic ED Physician Electronically Signed By:LEODAN GANN MD
[2022-07-09 20:58] LABS: Basophils Percent Auto 0.1 % (0-2); Eosinophils Percent Auto 0.1 % (0-4); Hematocrit 38.6 % (42.0-52.0); Hemoglobin 12.5 g/dl (14.0-18.0); Imm Gran Abs Auto 0.08 X10*3/uL (0.00-0.03); Imm Gran Pct Auto 0.4 % (0.0-0.4); Lymphocytes Absolute Auto 0.6 X10*3/uL (1.2-4.9); Lymphocytes Percent Auto 2.7 % (20-40); MANUAL DIFF FLAG SCAN; Mean Corpuscular HGB Conc 32.4 g/dl (31.0-36.0); Mean Corpuscular Hemoglobin 26.9 pg (27.0-33.0); Mean Corpuscular Volume 83.2 fL (80.0-98.0); Mean Platelet Volume 8.7 fL (9.4-12.4); Monocytes Absolute Auto 1.5 X10*3/uL (0.1-1.2); Monocytes Percent Auto 7.1 % (2-11); Neutrophils Absolute Auto 19.1 x10*3/uL (2.0-8.3); Neutrophils Percent Auto 89.6 % (45-73); Platelet Count 266 X10*3/uL (160-400); Red Blood Count 4.64 X10*6/uL (4.60-5.80); Red Cell Distribution Width 13.7 % (11.0-16.0); SCAN SMEAR FLAG 1; White Blood Count 21.3 X10*3/uL (4.8-10.8)
--- NOTE | 2022-07-09 20:58 | ED.FEVER ---
HPI - Fever General Chief Complaint: Extremity Problem Stated Complaint: swollen ankle (cellulitis ?) Time Seen by Provider: 07/09/22 20:45 Source: patient Mode of arrival: ambulatory Limitations: no limitations History of Present Illness HPI Narrative: 36 yo male with history of IVDA who has had endocarditis/bacteremia in the past, ADHD, mood disorder who presents with complaints of right-sided pleuritic chest pain with fever x 2 days no palpitations, cough, shortness of breath. Patient also reporting pain to the right and left calf and the right ankle with swelling, redness. Patient is using IV heroin and cocaine daily-1 bundle. Patient has been injecting in his legs. Patient also reports suicidal ideation and reports he intentionally OD'd 3 days ago. Feeling depressed Related Data Home Medications Medication Instructions Recorded Confirmed albuterol sulfate 90 mcg/actuation 2 puff inhalation Q4H PRN 11/13/21 07/09/22 aerosol inhaler Respiratory Distress prazosin 1 mg capsule 2 mg PO BEDTIME 11/13/21 07/09/22 cariprazine 3 mg capsule (Vraylar) 3 mg PO DAILY 07/09/22 07/09/22 clonidine HCl 0.1 mg tablet 0.1 mg PO DAILY 07/09/22 07/09/22 dextroamphetamine-amphetamine 30 1 tab PO BID 07/09/22 07/09/22 mg tablet gabapentin 800 mg tablet 800 mg PO TID 07/09/22 07/09/22 Allergies Allergy/AdvReac Type Severity Reaction Status Date / Time haloperidol [From HALDOL] AdvReac Intermediate LOCK JAW Verified 11/12/21 20:59 olanzapine [From ZYPREXA] AdvReac Unknown PT REPORTS Verified 11/12/21 20:59 FEELS LIKE I AM ON AN ACID TRIP Review of Systems Review of Systems: Yes all other systems are reviewed and are negative Constitutional: Constitutional: Reports no additional constitutional complaints, Denies body ache(s), Denies chills, Reports fever(s), Denies headache(s) and Denies weakness Eyes: Eyes: Reports no additional eye complaints and Denies change in vision ENT: Reports system reviewed and no additional complaints, except as documented, Denies dizziness, Denies headache(s), Denies nasal congestion, Denies nasal discharge and Denies neck pain Cardiovascular: Cardiovascular: Reports no additional cardiovascular complaints, Reports chest pain, Reports leg edema and Denies dyspnea Respiratory: Respiratory: Reports no additional respiratory complaints, Denies cough and Denies dyspnea Gastrointestinal: Gastrointestinal: Reports no additional gastrointestinal complaints, Denies abdominal pain, Denies diarrhea, Denies nausea and Denies vomiting Genitourinary: Genitourinary: Denies urinary incontinence Musculoskeletal: Musculoskeletal: Reports no additional musculoskeletal complaints, Denies back pain, Denies arthralgias, Denies joint swelling, Denies neck pain, Denies numbness and Denies tingling Integumentary/Breasts: Skin/Breast: Reports system reviewed and no additional complaints, except as docu, Reports swelling, Reports erythema and Denies rash Neurologic: Reports system reviewed and no additional complaints, except as documented, Denies Abnormal speech present, Denies dizziness, Denies headache(s), Denies numbness, Denies tingling and Denies weakness PMFSH Past Medical History Attestation statement: The following information was validated with the patient. Source: old records reviewed and nursing notes reviewed Medical History Abrasion of face ADHD DVT (deep venous thrombosis) Endocarditis Eye contusion Head injury Hepatitis C Heroin overdose IV drug abuse Left upper extremity deep vein thrombosis Mood disorder Multiple abrasions Opiate abuse, continuous Severe sepsis Suicide attempt Surgical History History of left knee surgery S/P left knee arthroscopy Social History Social History Household Members: None Housing: Homeless Do you presently have visiting nurse or other home services: No Alcohol intake: never Patient Tobacco Use Status: Current everyday Tobacco user Tobacco use type: Cigarette Cigarette Packs Per Day: 1 Cigarettes Per Day: 20.0 Years Smoked: 15 e-Cigarette/Vaping Use: Never Used Second Hand Smoke Exposure: No Substance Use Type: Crack/Cocaine, Heroin and Opiates Advance Directives: No Advance Directives Information Provided: No service: No Sexual orientation: Straight/Heterosexual Physical Exam Vital Signs: Vital Signs: Last Vital Signs Temp 98.1 F 07/09/22 23:04 Pulse 76 07/09/22 23:04 Resp 14 07/09/22 23:04 BP 127/81 07/09/22 23:04 Pulse Ox 99 07/09/22 23:04 O2 Del Method 07/09/22 23:04 BMI result Body Mass Index 21.1 Const: General: alert and poor hygiene Nutritional Appearance: thin Orientation/consciousness: patient oriented x3 Limitations: no limitations HEENT: Head: Yes normal to inspection Ears: hearing grossly normal bilaterally General nose exam: Normal external nose present Face and sinus: Yes normal facial exam Mouth: Normal oral and palatal mucosa present Throat: Yes posterior oropharynx normal Eyes: General: appearance normal, both eyes and all related structures Pupils: Equal, round and reactive pupils present Neck: Neck: Yes normal visual inspection, Yes full ROM, Yes no lymphadenopathy and Yes no meningeal signs Chest: Chest palpation & inspection: normal inspection of the chest Resp: Effort & Inspection: normal respiratory effort Auscultation: clear to auscultation bilaterally Cardio: Rate: regular rate Rhythm: regular rhythm Peripheral pulses: Peripheral pulses 2+ throughout GI: Inspection: Yes normal to inspection Palpation (GI): Soft to palpation and nontender Auscultation: normal bowel sounds Back/Spine/Pelvis: Thoracic/Lumbar Spine: thoracic and lumbar spine normal to inspection Skin: General skin exam: no rashes or lesions noted Neuro: General: patient oriented x3, no meningeal signs, no focal motor deficits and normal sensation to monofilament Cranial nerves: Yes Equal, round and reactive pupils present Cognition (Neuro): normal cognition Speech: No Abnormal speech present Gait exam (Neuro): Normal gait present Motor exam (neuro): 5/5 motor strength present throughout Extrem: Other: To the left calf there is redness, swelling and discomfort. Neurovascular intact distally. To the right calf there is some tenderness. There is no swelling or redness. There are some injection sites noted along the medial knee with some local phlebitis. To the right ankle there is swelling and warmth. There is no redness. Patient is able to flex and extend the foot although it is painful. Palpable pulses General: Yes normal to inspection Course Course Course Narrative: 0000-spoke to Dr. Carrillo from Medicine who accepted admission pending CTA of chest. She did evaluate the patient. She was concerned that the patient may have a septic right ankle or underlying abscess due to the swelling and discomfort the patient is having. Bilateral venous ultrasounds are negative. X-ray of the right ankle shows no acute fracture dislocation with soft tissue swelling around the ankle. On physical exam patient does have swelling and tenderness. He does have range of motion although it is quite painful. +warmth. There is no redness. Doubt septic joint. However, after further discussion with medicine they would like a CT of the ankle with contrast. Patient did receive contrast for a CTA and after further discussion plan is for patient to receive IV fluids and to have the CT in the morning during admission. Reevaluation(s) Reevaluation #1: 0050-CTA of chest negative for pulmonary embolism, or pneumonia. ? Ankle as source of fever. Also considered endocarditis, bacteremia. No back pain to suggest epidural abscess. No headache, neck pain, meningeal signs suggest meningitis. Medicine will accept patient MDM - Fever MDM Narrative Medical decision making narrative: 36 yo male with history of IVDA here with complaints of pleuritic CP, fever, bilateral calf pain, right ankle swelling and pain. On arrival patient has fever 103. Concern for septic emboli, PNA, endocarditis, DVT, septic joint, cellulitis. Will need labs including blood cultures and lactic acid, EKG, CTA of chest, bilateral venous ultrasound, right ankle x-ray, COVID screen. At this time infection is suspected. Antibiotics ordered. Of note, patient is also suicidal. Section 12 signed and placed on chart. Nursing and charge nurse aware. Placed on 1;1 Medical Records Attestation: I reviewed the patient's medical records. Lab Data Attestation: I reviewed the patient's lab results. Result diagrams: 07/09/22 20:41 07/09/22 20:41 Labs: Lab Results 07/09/22 07/09/22 07/09/22 Range/Units 20:41 20:41 20:41 WBC 21.3 H (4.8-10.8) X10*3/uL RBC 4.64 D (4.60-5.80) X10*6/uL Hgb 12.5 L D (14.0-18.0) g/dl Hct 38.6 L (42.0-52.0) % MCV 83.2 (80.0-98.0) fL MCH 26.9 L (27.0-33.0) pg MCHC 32.4 (31.0-36.0) g/dl RDW 13.7 (11.0-16.0) % Plt Count 266 (160-400) X10*3/uL MPV 8.7 L (9.4-12.4) fL Immature Gran % (Auto) 0.4 (0.0-0.4) % Neut % (Auto) 89.6 H (45-73) % Lymph % (Auto) 2.7 L (20-40) % [place] % (Auto) 7.1 (2-11) % Eos % (Auto) 0.1 (0-4) % Baso % (Auto) 0.1 (0-2) % Lymph # (Auto) 0.6 L (1.2-4.9) X10*3/uL [place] # (Auto) 1.5 H (0.1-1.2) X10*3/uL Eos # (Auto) 0.0 (0.0-0.4) X10*3/uL Baso # (Auto) 0.0 (0.0-0.2) X10*3/uL Abs Immat Gran (auto) 0.08 H (0.00-0.03) X10*3/uL Absolute Neuts (auto) 19.1 H (2.0-8.3) x10*3/uL Absolute Nucleated RBC 0.000 (0.0-0.012) X10*3/uL Nucleated RBC % (auto) 0.0 (0.0-0.2) /100WBC Smear Tech's Comments VERIFIED ESR (0-15) MM/HR PT (10.0-13.1) SEC INR (0.9-1.1) D-Dimer High Sensitivty NG/ML Sodium 130 L (135-145) mmol/L Potassium 3.8 (3.3-5.1) mmol/L Chloride 93 L (96-108) mmol/L Carbon Dioxide 23 (22-29) mmol/L Anion Gap 18 (12-20) BUN 9 (9-16) mg/dL Creatinine 0.77 (0.5-1.4) mg/dL Estim Creat Clear Calc 113.7 Estimated GFR > 60 Random Glucose 100 (60-115) mg/dL Lactic Acid 0.9 (0.5-2.0) mmol/L Calcium 9.5 (8.4-10.2) mg/dL Magnesium (1.6-2.6) mg/dL Total Bilirubin 1.4 H (0.0-1.0) mg/dL Direct Bilirubin 0.5 (0.0-0.5) mg/dL AST 39 H D (5-37) U/L ALT 46 H (0-40) U/L Alkaline Phosphatase 94 (39-117) U/L Troponin I High Sens (<3.5-35.0) ng/L C-Reactive Protein (< or = 0.50) mg/dL Total Protein 8.6 H (6.5-8.0) g/dL Albumin 4.2 (3.5-5.0) g/dL Ethyl Alcohol mg/dL COVID-19 (MARILYN) (Negative) COVID-19 Clin Com 07/09/22 07/09/22 07/09/22 Range/Units 21:51 21:51 21:51 WBC (4.8-10.8) X10*3/uL RBC (4.60-5.80) X10*6/uL Hgb (14.0-18.0) g/dl Hct (42.0-52.0) % MCV (80.0-98.0) fL MCH (27.0-33.0) pg MCHC (31.0-36.0) g/dl RDW (11.0-16.0) % Plt Count (160-400) X10*3/uL MPV (9.4-12.4) fL Immature Gran % (Auto) (0.0-0.4) % Neut % (Auto) (45-73) % Lymph % (Auto) (20-40) % [place] % (Auto) (2-11) % Eos % (Auto) (0-4) % Baso % (Auto) (0-2) % Lymph # (Auto) (1.2-4.9) X10*3/uL [place] # (Auto) (0.1-1.2) X10*3/uL Eos # (Auto) (0.0-0.4) X10*3/uL Baso # (Auto) (0.0-0.2) X10*3/uL Abs Immat Gran (auto) (0.00-0.03) X10*3/uL Absolute Neuts (auto) (2.0-8.3) x10*3/uL Absolute Nucleated RBC (0.0-0.012) X10*3/uL Nucleated RBC % (auto) (0.0-0.2) /100WBC Smear Tech's Comments ESR 28 H (0-15) MM/HR PT (10.0-13.1) SEC INR (0.9-1.1) D-Dimer High Sensitivty NG/ML Sodium (135-145) mmol/L Potassium (3.3-5.1) mmol/L Chloride (96-108) mmol/L Carbon Dioxide (22-29) mmol/L Anion Gap (12-20) BUN (9-16) mg/dL Creatinine (0.5-1.4) mg/dL Estim Creat Clear Calc Estimated GFR Random Glucose (60-115) mg/dL Lactic Acid (0.5-2.0) mmol/L Calcium (8.4-10.2) mg/dL Magnesium 1.5 L (1.6-2.6) mg/dL Total Bilirubin (0.0-1.0) mg/dL Direct Bilirubin (0.0-0.5) mg/dL AST (5-37) U/L ALT (0-40) U/L Alkaline Phosphatase (39-117) U/L Troponin I High Sens < 3.5 D (<3.5-35.0) ng/L C-Reactive Protein 13.16 H (< or = 0.50) mg/dL Total Protein (6.5-8.0) g/dL Albumin (3.5-5.0) g/dL Ethyl Alcohol mg/dL COVID-19 (MARILYN) (Negative) COVID-19 Clin Com 07/09/22 07/09/22 07/09/22 Range/Units 21:51 21:51 21:52 WBC (4.8-10.8) X10*3/uL RBC (4.60-5.80) X10*6/uL Hgb (14.0-18.0) g/dl Hct (42.0-52.0) % MCV (80.0-98.0) fL MCH (27.0-33.0) pg MCHC (31.0-36.0) g/dl RDW (11.0-16.0) % Plt Count (160-400) X10*3/uL MPV (9.4-12.4) fL Immature Gran % (Auto) (0.0-0.4) % Neut % (Auto) (45-73) % Lymph % (Auto) (20-40) % [place] % (Auto) (2-11) % Eos % (Auto) (0-4) % Baso % (Auto) (0-2) % Lymph # (Auto) (1.2-4.9) X10*3/uL [place] # (Auto) (0.1-1.2) X10*3/uL Eos # (Auto) (0.0-0.4) X10*3/uL Baso # (Auto) (0.0-0.2) X10*3/uL Abs Immat Gran (auto) (0.00-0.03) X10*3/uL Absolute Neuts (auto) (2.0-8.3) x10*3/uL Absolute Nucleated RBC (0.0-0.012) X10*3/uL Nucleated RBC % (auto) (0.0-0.2) /100WBC Smear Tech's Comments ESR (0-15) MM/HR PT 16.7 H (10.0-13.1) SEC INR 1.4 H (0.9-1.1) D-Dimer High Sensitivty 533 NG/ML Sodium (135-145) mmol/L Potassium (3.3-5.1) mmol/L Chloride (96-108) mmol/L Carbon Dioxide (22-29) mmol/L Anion Gap (12-20) BUN (9-16) mg/dL Creatinine (0.5-1.4) mg/dL Estim Creat Clear Calc Estimated GFR Random Glucose (60-115) mg/dL Lactic Acid (0.5-2.0) mmol/L Calcium (8.4-10.2) mg/dL Magnesium (1.6-2.6) mg/dL Total Bilirubin (0.0-1.0) mg/dL Direct Bilirubin (0.0-0.5) mg/dL AST (5-37) U/L ALT (0-40) U/L Alkaline Phosphatase (39-117) U/L Troponin I High Sens (<3.5-35.0) ng/L C-Reactive Protein (< or = 0.50) mg/dL Total Protein (6.5-8.0) g/dL Albumin (3.5-5.0) g/dL Ethyl Alcohol < 10 mg/dL COVID-19 (MARILYN) Negative (Negative) COVID-19 Clin Com See Note Imaging Data ankle x-ray: Attestation: I personally reviewed and interpreted this imaging study as follows: Radiologist's impression: welling and pain? COMPARISON: None? TECHNIQUE: AP, lateral, and mortise views of the right ankle. FINDINGS: No acute fracture or dislocation. Soft tissue swelling about the ankle most pronounced overlying the lateral malleolus. Ankle joint space is maintained. Small marginal osteophytes consistent with mild osteoarthritis. Small well-corticated bone fragment adjacent to the lateral talar process consistent with remote injury. Similar finding adjacent to the medial malleolus.? XR/XR ankle RT 2V IMPRESSION: 1.? No acute fracture or dislocation. 2.? Soft tissue swelling about the ankle. 3.? Mild tibiotalar joint osteoarthritis. ? Venous US: Attestation: I personally reviewed and interpreted this imaging study as follows: Radiologist's impression: [place] [address] Ultrasound Report Signed Patient: Moses Howard MR#: [id number] : 1985 Acct:[id number] Age/Sex: 36 / M ADM Date: 07/09/22 Loc: HO.ED Attending Dr: Ordering Physician: Lisy Aponte NP Date of Service: 07/09/22 Procedure(s): US venous duplex LE BI Accession Number(s): [id number] cc: Lisy Aponte NP~ EXAMINATION:? US VENOUS ULTRASOUND WITH DOPPLER LOWER EXTREMITY, BILATERAL CLINICAL INFORMATION:? Bilateral lower extremity swelling COMPARISON:? None TECHNIQUE: Ultrasound of the deep veins is performed from the hip to the calf with compression sonography and color and pulse Doppler assessment. Spectral analysis with color-flow imaging is performed. FINDINGS: RIGHT: There is normal venous compression and respiratory variation and augmented flow. The visualized common femoral vein, superficial femoral vein, profunda femoral vein, popliteal vein, and the trifurcation region shows no evidence of deep venous thrombosis. ? There is no significant popliteal fossa cyst. LEFT: There is normal venous compression and respiratory variation and augmented flow. The visualized common femoral vein, superficial femoral vein, profunda femoral vein, popliteal vein, and the trifurcation region shows no evidence of deep venous thrombosis. ? There is no significant popliteal fossa cyst. Bilateral benign-appearing lymph nodes. If the patient's symptoms persist, followup ultrasound in 5 days 7 days might be of value to exclude proximal propagation from a non-visualized calf vein. US/US venous duplex LE BI IMPRESSION: No DVT demonstrated in the bilateral lower extremities. CT scan - chest: Attestation: I personally reviewed and interpreted this imaging study as follows: Radiologist's impression: [address] [address] [address] Scan Report Signed Patient: Moses Howard MR#: [id number] : 1985 Acct:[id number] Age/Sex: 36 / M ADM Date: 07/09/22 Loc: .ED Attending Dr: Ordering Physician: Lisy Aponte NP Date of Service: 07/09/22 Procedure(s): CT angio chest PE protocol Accession Number(s): [id number] cc: Lisy Aponte NP~ EXAMINATION: CT ANGIOGRAM OF THE CHEST WITH AND WITHOUT CONTRAST (CT PULMONARY ANGIOGRAM FOR PE) CLINICAL INFORMATION: Pleuritic chest pain. IV drug abuser COMPARISON: Chest radiograph earlier today and CT chest 06/11/2020? TECHNIQUE: Prior to contrast administration, noncontrast localization images were obtained. ? Subsequently, multidetector volumetric imaging was performed from the thoracic inlet to below the diaphragms following the administration of 65 mL Omnipaque 350 intravenous contrast. No contrast reaction reported Sagittal, coronal, and MIP oblique sagittal reformatted images were obtained on the CT workstation, uploaded to PACS, and reviewed. This CT examination was performed using dose optimization techniques as appropriate, variously including the following: *Automated exposure control *Adjustment of mA and/or kV according to patient size (this includes techniques or standardized protocols for targeted exams where dose is matched to indication/reason for exam; i.e. extremities or head) *Use of iterative reconstruction technique Total exam dose-length product 238 mGy-cm FINDINGS: QUALITY OF STUDY/CONTRAST BOLUS: Suboptimal. PULMONARY ARTERIES: No central or large segmental pulmonary emboli. Because of the quality of the bolus, the exam is limited. THORACIC AORTA: No aneurysm or dissection. LUNG: No focal consolidation, nodules or masses. PLEURA: No pleural effusion or pneumothorax. MEDIASTINUM: Normal heart size.? No pericardial effusion.? No hilar or mediastinal lymphadenopathy.? No evidence of septal bowing or right heart strain. CHEST WALL/AXILLA: No axillary or internal mammary lymphadenopathy. OSSEOUS STRUCTURES: No acute or suspicious osseous abnormality.? UPPER ABDOMEN: Spleen is enlarged measuring at least 16 cm in greatest dimension. I suspect that the liver is enlarged as well? No reflux of contrast into the hepatic veins to suggest elevated right heart pressures. CT/CT angio chest PE protocol IMPRESSION: No evidence of pulmonary emboli in this limited study secondary to poor bolus. Incidentally noted splenomegaly. ? VTE: Negative but limited ECG Data ECG #1: Attestation: I personally reviewed and interpreted this ECG as follows: ECG interpretation date: 07/09/22 ECG interpretation time: 20:39 Interpretation: Normal sinus rhythm with a rate 86, normal DC, normal QRS, T-wave inversions in leads V3 and V4. Discharge Plan Discharge Clinical Impression: Fever, Leukocytosis, Acute hyponatremia, Hypomagnesemia, Chest pain, Right ankle swelling Patient Disposition: Admitted As Inpatient
[2022-07-09 21:02] VITALS: BP 158/80; PULSE 100; RESP 21; TEMP 38.1; O2SAT 99
[2022-07-09 21:13] LABS: Lactic Acid 0.9 mmol/L (0.5-2.0)
[2022-07-09] MEDS: Ketorolac Tromethamine 30 MG/ML VIAL IVPUSH (21:15)
[2022-07-09] MEDS: Acetaminophen 325 MG TABLET 975 MG PO (21:15)
[2022-07-09] MEDS: Piperacillin Sodium/Tazobactam 3.375 GM in 0.9 % Sodium Chloride 50 ML IV (21:15)
[2022-07-09 21:17] LABS: Anion Gap 18 (12-20); Blood Urea Nitrogen 9 mg/dL (9-16); Calcium 9.5 mg/dL (8.4-10.2); Carbon Dioxide 23 mmol/L (22-29); Chloride 93 mmol/L (96-108); Creatinine Clr Calc Pharmacy 113.7; Estimated Glomerular Filt Rate > 60; Glucose Random 100 mg/dL (60-115); Potassium 3.8 mmol/L (3.3-5.1); Sodium 130 mmol/L (135-145)
--- NOTE | 2022-07-09 21:21 | PHA.MEDREC ---
PATIENT HAS BEEN OFF ALL MEDS FOR ABOUT A MONTH, WAS PREVIOUSLY ON METHADONE Pharmacy Consult ? Medication Reconciliation Pharmacy has completed the medication reconciliation.
[2022-07-09 21:23] LABS: SLIDE REVIEW VERIFIED
[2022-07-09] MEDS: 0.9 % Sodium Chloride 1,000 ML 999 ML IV (21:35)
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
--- OUTSIDE RECORDS SUMMARY | 2022-07-09 21:52 | XMS_ITS | Continuity of Care Document ---
:1985 Author Organization [employer] Address [address] [place] [address]- Care Team Providers Name Role Phone Murray TAFOYA, Raquel Dillard Primary [facility] Phys[id number] Date(s): 04/21/20 - 04/22/[address] [address]- [facility] Discharge Disposition: A-D/C Home Attending Physician: Jovany Joy MD Admitting Physician: Jovany Joy MD Referring Physician: Not on Staff, Referring MD Allergies, Adverse Reactions, Alerts Substance Reaction Severity Status NKA Active Immunizations Not Given Vaccine Date Status Refusal Reason pneumococcal 23-valent vaccine 07/12/16 Not Given P atient Refuses Medications amphetamine-dextroamphetamine 20 mg oral tablet 1 tablet = 20 mg, By Mouth, 2 times a day, PRN as needed Start Date: 04/21/20 Status: OrderedbuPROPion 200 mg/12 hours (SR) oral tablet, extended [...] Print Requisition Start Date: 09/01/17 Status: Orderedgabapentin 600 mg oral tablet 1 tablet = 600 mg, By Mouth, 3 times a day, Maintenance, 04/21/20 17:40:00 EDT, Tablet Start Date: 04/21/20 Status: OrderedhydrOXYzine pamoate 25 mg oral capsule 1 capsule = 25 mg, By Mouth, Daily at bedtime Start Date: 04/21/20 Status: OrderedQUEtiapine 300 mg oral tablet 1 tablet = 300 mg, By Mouth, Daily in AM Start Date: 04/21/20 Status: OrderedQUEtiapine 50 mg oral tablet 1 tablet = 50 mg, By Mouth, Daily at bedtime Start Date: 04/21/20 Status: OrderedSuboxone 8 mg-2 mg sublingual film DISSOLVE 1 FILM UNDER THE TONGUE TWICE DAILY Start Date: 04/21/20 Status: OrderedZofran ODT 4 mg oral tablet, [...] 2011, many Active fights/LOC)(Confirmed) Hep C(Confirmed) Active Results Radiology Reports Exam Date Time Procedure Performing Provider Status 04/21/20 8:54 AM Chest 2 Views Frontal and Lat Mayte Nj; Geovany (Verified) Notes:(Chest 2 Views Frontal and Lat) Reason For Exam: sobRESULT: Chest 2 Views Frontal and Lat Chest 2 Views Frontal and Lat Refer to EMR; Reason: sob; Clinical Question(s): Other:; Hx of Present Illness: Pt states for the past year he relapsed, with multiple ODs some intentional, this A.M. PT injected 20 bags of heroin, 1 gram of cocaine, and consumed 6 alcoholic beverages, he states that this past Friday he intentionally overdosed and was narcanned; COMPARISON: Multiple prior chest radiographs, most recently October 09, 2016, and prior chest CT dated September 11, 2012. FINDINGS: LINES AND TUBES: None. LUNGS AND PLEURA: Clear lungs. Normal pulmonary vascularity. No pleural effusion. No pneumothorax. HEART, MEDIASTINUM AND MICHAEL: Heart is normal in size. Normal mediastinal and hilar contour. BONES AND SOFT TISSUES: No acute abnormality. 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 IMPRESSION: No acute abnormality. WSN: [id number] Ordering Physician: Claudia Craft Dictated By: Kin Edwards MD Dictated Date/Time: 04/21/20 8:59 am Reviewed By: Kin Edwards MD Signed By: Kin Edwards MD Signed Date/Time: 04/21/20 8:59 am Transcribed By: VINEET Transcribed Date/Time: 04/21/20 8:55 am Vital Signs Most recent to oldest 1 2 3 [Reference Range]: Oxygen Saturation [94-100 %] 100 % 100 % 99 % (04/22/20 6:59 AM) (04/21/20 10:52 PM) (04/21/20 3:4 0 PM) Pulse Rate [55-90 bpm] 54 bpm 58 bpm 63 bpm *L* (04/21/20 10:52 PM) (04/21/20 3:40 PM) (04/22/20 6:59 AM) Blood Pressure [90-138/55-84 mm 119/60 mm Hg 113/60 mm Hg 116/56 mm Hg Hg] (04/22/20 6:59 AM) (04/21/20 10:52 PM) (04/21/20 3:4 0 PM) Respiratory Rate [16-30 br/min] 16 br/min 16 br/min 16 br/min (04/22/20 6:59 AM) (04/21/20 10:52 PM) (04/21/20 3:4 0 PM) Temperature [96.8-100.4 DegF] 97.6 DegF 97.6 DegF 98 .3 DegF (04/22/20 6:59 AM) (04/21/20 10:52 PM) (04/21/20 3:4 0 PM) Mode of Delivery (Oxygen) Room air Room air Room a ir (04/22/20 6:59 AM) (04/21/20 10:52 PM) (04/21/20 3:4 0 PM) Blood pressure sites Arm, right Arm, right Arm, right (04/22/20 6:59 AM) (04/21/20 10:52 PM) (04/21/20 3:4 0 PM) Temperature Route Oral Oral Oral (04/22/20 6:59 AM) (04/21/20 10:52 PM) (04/21/20 3:4 0 PM) Social History Social History Type Response Smoking Status Current every day smoker entered on: 07/07/18 Sex
[2022-07-09] MEDS: vancomycin HCL 1,500 MG in 0.9 % Sodium Chloride 500 ML 333.33 MG IV (22:01)
[2022-07-09 22:15] LABS: Ethanol < 10 mg/dL
[2022-07-09 22:17] LABS: C Reactive Protein 13.16 mg/dL (< or = 0.50); Magnesium 1.5 mg/dL (1.6-2.6)
[2022-07-09 22:20] LABS: INTERNATIONAL NORM RATIO 1.4 (0.9-1.1); Prothrombin Time 16.7 SEC (10.0-13.1)
[2022-07-09 22:21] LABS: Troponin-I High Sensitivity < 3.5 ng/L (<3.5-35.0)
[2022-07-09 22:22] LABS: D Dimer High Sensitivity 533 NG/ML
[2022-07-09 22:26] LABS: COVID-19 Test Negative (Negative); IDNOW Serial# 55D5AD1C
[2022-07-09 22:59] LABS: Erythrocyte Sedimentation Rate 28 MM/HR (0-15)
[2022-07-09 23:04] VITALS: BP 127/81; PULSE 76; RESP 14; TEMP 36.7; O2SAT 99
[2022-07-09 23:29] LABS: Alanine Aminotransferase 46 U/L (0-40); Albumin Level 4.2 g/dL (3.5-5.0); Alkaline Phosphatase 94 U/L (39-117); Aspartate Amino Transferase 39 U/L (5-37); Bilirubin Direct 0.5 mg/dL (0.0-0.5); Bilirubin Total 1.4 mg/dL (0.0-1.0); Total Protein 8.6 g/dL (6.5-8.0)
[2022-07-09] MEDS: Magnesium Sulfate/H2O 2 GM/50 ML PIGGYBACK IV (23:56)
[2022-07-10] VITALS (7 sets, daily range): BP systolic 97–143; BP diastolic 51–78; PULSE 68–90; RESP 13–18; TEMP 36.9–37.6; O2SAT 96–99
[2022-07-10] MEDS: iohexoL 350 MG/ML 100 ML INFUS..BTL 65 ML IV (00:08)
--- NOTE | 2022-07-10 01:03 | PM.IMHP ---
History of Present Illness Date of Service: 07/10/22 Chief Complaint: leg pain, fever 36-year-old male with past medical history of IV drug use, history of endocarditis, history of septic pulmonary embolism, history of septic arthritis of the knee, history of DVT, depression, ADHD, presents to the hospital with complaints of significant pain in legs, as well as swelling of his right ankle for the past 2 days. Patient reports that he has had poor oral intake, nausea, chills for the past 1 week. He reports his symptoms worsening, up until last night when he tried to go to the bathroom but he had significant pain in his leg and therefore his legs almost gave out under him. He reports low appetite, a fever of 103 at home, has significant diaphoresis, and pleuritic chest pain in the right lower chest. Nonradiating. The pain in the ankle is 9/10, going of his right leg, he has track perez along the medial calf area of both lower legs, he is also complaining of pain in his left calf region. She is also complaining of being suicidal and having suicidal thoughts. All other review of systems negative except as mentioned On arrival to the ED patient's vitals are significant for a temperature of 103 degrees, heart rate of 100, respiratory rate of 21 Labs are significant for the VC count of 21, hemoglobin 12.5, hematocrit 38.6, PT of 16.7, INR of 1.4, sodium 130, magnesium of 1.5, total bili of 1.4, AST of the 39, ALT of 46, CRP of 13.16, ESR of 28, UA negative, UDS positive for opioids and fentanyl as well as cocaine Venous duplex of both lower extremities shows no DVT demonstrated in the bilateral lower extremities Chest CT angiogram shows no evidence of pulmonary emboli in this limited study secondary to poor bolus Right ankle x-ray shows no acute fracture dislocation And chest x-ray shows no acute intrathoracic disease Patient started on IV antibiotics will be admitted for further management Review of Systems Review of Systems: Yes all other systems are reviewed and are negative [facility] Medical History Abrasion of face ADHD DVT (deep venous thrombosis) Endocarditis Eye contusion Head injury Hepatitis C Heroin overdose IV drug abuse Left upper extremity deep vein thrombosis Mood disorder Multiple abrasions Opiate abuse, continuous Severe sepsis Suicide attempt Surgical History History of left knee surgery S/P left knee arthroscopy Social History Household Members: None Housing: Homeless Do you presently have visiting nurse or other home services: No Alcohol intake: never Patient Tobacco Use Status: Current everyday Tobacco user Tobacco use type: Cigarette Cigarette Packs Per Day: 1 Cigarettes Per Day: 20.0 Years Smoked: 15 e-Cigarette/Vaping Use: Never Used Second Hand Smoke Exposure: No Substance Use Type: Crack/Cocaine, Heroin and Opiates Advance Directives: No Advance Directives Information Provided: No service: No Sexual orientation: Straight/Heterosexual Meds Allergies Allergy/AdvReac Type Severity Reaction Status Date / Time haloperidol [From HALDOL] AdvReac Intermediate LOCK JAW Verified 11/12/21 20:59 olanzapine [From ZYPREXA] AdvReac Unknown PT REPORTS Verified 11/12/21 20:59 FEELS LIKE I AM ON AN ACID TRIP Active Medications: Current Medications Pharmacy Consult (Consult Rx Perform Med Rec) 1 each MISCELLANE ONCE PRN PRN Reason: Consult order Home Medications Medication Instructions Recorded Confirmed Last Taken Type albuterol sulfate 90 mcg/actuation 2 puff inhalation Q4H PRN 11/13/21 07/09/22 Unknown History aerosol inhaler Respiratory Distress prazosin 1 mg capsule 2 mg PO BEDTIME 11/13/21 07/09/22 Unknown History cariprazine 3 mg capsule (Vraylar) 3 mg PO DAILY 07/09/22 07/09/22 Unknown History clonidine HCl 0.1 mg tablet 0.1 mg PO DAILY 07/09/22 07/09/22 Unknown History dextroamphetamine-amphetamine 30 1 tab PO BID 07/09/22 07/09/22 Unknown History mg tablet gabapentin 800 mg tablet 800 mg PO TID 07/09/22 07/09/22 Unknown History Physical Exam Vital Signs and Narrative: Vital Signs: Last Vital Signs Temp 98.1 F 07/09/22 23:04 Pulse 76 07/09/22 23:04 Resp 14 07/09/22 23:04 BP 127/81 07/09/22 23:04 Pulse Ox 99 07/09/22 23:04 O2 Del Method 07/09/22 23:04 BMI result Body Mass Index 21.1 Const: General: cooperative and no acute distress Orientation/consciousness: patient oriented x3 Eyes: General: appearance normal, both eyes and all related structures Resp: Effort & Inspection: normal respiratory effort Auscultation: clear to auscultation bilaterally Cardio: Rate: regular rate Rhythm: regular rhythm GI: Palpation (GI): Soft to palpation Auscultation: normal bowel sounds Skin: Other: Has multiple track perez along the lower extremities, no evidence of cellulitis at this time Neuro: General: patient oriented x3 Cognition (Neuro): normal cognition Extrem: Other: There is evidence right lateral malleolus swelling, very tender to touch, no warmth, no erythema noted Results Labs CBC and Chem 7: 07/09/22 20:41 07/09/22 20:41 Labs: Laboratory Results - last 24 hr 07/09/22 07/09/22 07/09/22 20:41 20:41 20:41 MCV 83.2 MCH 26.9 L MCHC 32.4 RDW 13.7 Plt Count 266 MPV 8.7 L Immature Gran % (Auto) 0.4 Neut % (Auto) 89.6 H Lymph % (Auto) 2.7 L Dewitt % (Auto) 7.1 Eos % (Auto) 0.1 Baso % (Auto) 0.1 Lymph # (Auto) 0.6 L Dewitt # (Auto) 1.5 H Eos # (Auto) 0.0 Baso # (Auto) 0.0 Abs Immat Gran (auto) 0.08 H Absolute Neuts (auto) 19.1 H Absolute Nucleated RBC 0.000 Nucleated RBC % (auto) 0.0 Smear Tech's Comments VERIFIED ESR PT INR D-Dimer High Sensitivty Anion Gap 18 Estim Creat Clear Calc 113.7 Estimated GFR > 60 Random Glucose 100 Lactic Acid 0.9 Calcium 9.5 Magnesium Total Bilirubin 1.4 H Direct Bilirubin 0.5 AST 39 H D ALT 46 H Alkaline Phosphatase 94 Troponin I High Sens C-Reactive Protein Total Protein 8.6 H Albumin 4.2 Ethyl Alcohol COVID-19 (MARILYN) COVID-19 Clin Com 07/09/22 07/09/22 07/09/22 21:51 21:51 21:51 MCV MCH MCHC RDW Plt Count MPV Immature Gran % (Auto) Neut % (Auto) Lymph % (Auto) Dewitt % (Auto) Eos % (Auto) Baso % (Auto) Lymph # (Auto) Dewitt # (Auto) Eos # (Auto) Baso # (Auto) Abs Immat Gran (auto) Absolute Neuts (auto) Absolute Nucleated RBC Nucleated RBC % (auto) Smear Tech's Comments ESR 28 H PT INR D-Dimer High Sensitivty Anion Gap Estim Creat Clear Calc Estimated GFR Random Glucose Lactic Acid Calcium Magnesium 1.5 L Total Bilirubin Direct Bilirubin AST ALT Alkaline Phosphatase Troponin I High Sens < 3.5 D C-Reactive Protein 13.16 H Total Protein Albumin Ethyl Alcohol COVID-19 (MARILYN) COVID-19 Clin Com 07/09/22 07/09/22 07/09/22 21:51 21:51 21:52 MCV MCH MCHC RDW Plt Count MPV Immature Gran % (Auto) Neut % (Auto) Lymph % (Auto) Dewitt % (Auto) Eos % (Auto) Baso % (Auto) Lymph # (Auto) Dewitt # (Auto) Eos # (Auto) Baso # (Auto) Abs Immat Gran (auto) Absolute Neuts (auto) Absolute Nucleated RBC Nucleated RBC % (auto) Smear Tech's Comments ESR PT 16.7 H INR 1.4 H D-Dimer High Sensitivty 533 Anion Gap Estim Creat Clear Calc Estimated GFR Random Glucose Lactic Acid Calcium Magnesium Total Bilirubin Direct Bilirubin AST ALT Alkaline Phosphatase Troponin I High Sens C-Reactive Protein Total Protein Albumin Ethyl Alcohol < 10 COVID-19 (MARILYN) Negative COVID-19 Clin Com See Note Imaging Radiologist's Impressions: Impressions Chest X-Ray 07/09/22 21:30 IMPRESSION: No acute intrathoracic disease. Ankle X-Ray 07/09/22 21:33 IMPRESSION: 1. No acute fracture or dislocation. 2. Soft tissue swelling about the ankle. 3. Mild tibiotalar joint osteoarthritis. Venous Duplex 07/09/22 22:15 IMPRESSION: No DVT demonstrated in the bilateral lower extremities. Chest CTA 07/10/22 00:05 IMPRESSION: No evidence of pulmonary emboli in this limited study secondary to poor bolus. Incidentally noted splenomegaly. VTE: Negative but limited Assessment and Plan (1) Sepsis: Status: Acute (2) Pleuritic chest pain: Status: Acute (3) Suicidal ideation: Status: Acute (4) Right ankle swelling: Status: Acute (5) Fever: Status: Acute (6) Leukocytosis: Status: Acute (7) Acute hyponatremia: Status: Acute (8) Hypomagnesemia: Status: Acute Plan 36-year-old male with past medical history of IV drug use presents to the hospital with right ankle pain, and various symptoms including fever, chills, nausea, poor oral intake found to have sepsis # Sepsis - possibly septic arthritis versus endocarditis versus septic emboli - has fever, leukocytosis - no definite source at this time - CT angiogram of the chest showed no evidence of embolic disease although very poor study, therefore will obtain V/Q scan - has a significant swelling of the right ankle with a history of septic arthritis of the knee - at this time will treat with IV antibiotics - cultures obtained - infectious disease consulted # swollen right ankle - possibly septic arthritis - has elevated ESR and CRP - x-ray negative - pending CT scan - orthopedic consulted # pleuritic chest pain - possibly secondary to septic emboli - CT angiogram poor study - V/Q scan ordered - will monitor on telemetry # acute hyponatremia - unclear etiology at this time, patient appears euvolemic - sodium of 130 - will treat with IV fluid NS - follow sodium # suicidal ideation - sitter at bedside - psychiatry consulted # IV drug use - care team consulted # hypomagnesemia, - repleted - follow Mag level # depression, ADHD - continue home medications DVT prophylaxis: Lovenox Pt will require a minimum 2 night hospital stay for management of sepsis with IV antibiotics Quality Stroke Does the patient have a stroke diagnosis?: No VTE Prior VTE?: No VTE Risk Level:: Medical - moderate - high VTE Device Contraindication: Treatment Not Indicated VTE Drug Contraindication: N/A - Med Ordered
[2022-07-10] MEDS: Enoxaparin Sodium 40 MG/0.4 ML SYRINGE SUBCUT (01:35)
[2022-07-10] MEDS: 0.9 % Sodium Chloride 1,000 ML 100 ML IVCONT ×2 (01:35→11:08)
[2022-07-10 03:49] LABS: Appearance Urine Clear; Color Urine Yellow; Glucose Urine UA Negative (Negative); Leukocyte Esterase Urine Negative (Negative); Nitrite Urine Negative (Negative); PH 5.5 (5.0-9.0); Specific Gravity - Urine 1.015 (1.005-1.025); UMIC TRIGGER UACC YES; Urine Blood Trace (Negative); Urine Ketones Negative (Negative); Urine Protein Negative (Neg-Trace)
[2022-07-10 03:51] LABS: Bacteria Urine None Seen (None Seen); Hyaline Casts Urine 0-2 /LPF (0-2); RBC Urine 0-2 /HPF (0-2); Squamous Epithelial Cell Urine 0-2 /HPF (0-2); WBC Urine 0-5 /HPF (0-5)
[2022-07-10 03:59] LABS: Amphetamine Screen Urine Not Detected (Not Detect); Barbiturates, Urine Not Detected (Not Detect); Benzodiazepines Screen Urine Not Detected (Not Detect); Cannabinoid Screen Urine Not Detected (Not Detect); Cocaine Screen Urine POSITIVE (Not Detect); Fentanyl, urine POSITIVE (Not Detect); Opiate Screen Urine POSITIVE (Not Detect); Phencyclidine Screen Urine Not Detected (Not Detect)
[2022-07-10] MEDS: Piperacillin Sodium/Tazobactam 3.375 GM in 0.9 % Sodium Chloride 50 ML IV ×3 (05:43→18:19)
[2022-07-10] MEDS: Morphine Sulfate 4 MG/ML CARTRIDGE IVPUSH ×2 (05:44→10:21)
[2022-07-10 06:59] LABS: MANUAL DIFF FLAG NO
[2022-07-10 07:02] LABS: Basophils Percent Auto 0.1 % (0-2); Hematocrit 35.1 % (42.0-52.0); Hemoglobin 11.3 g/dl (14.0-18.0); Imm Gran Abs Auto 0.05 X10*3/uL (0.00-0.03); Imm Gran Pct Auto 0.3 % (0.0-0.4); Lymphocytes Absolute Auto 0.7 X10*3/uL (1.2-4.9); Mean Corpuscular HGB Conc 32.2 g/dl (31.0-36.0); Mean Corpuscular Volume 83.8 fL (80.0-98.0); Mean Platelet Volume 9.9 fL (9.4-12.4); Monocytes Absolute Auto 1.4 X10*3/uL (0.1-1.2); Monocytes Percent Auto 9.8 % (2-11); Neutrophils Absolute Auto 12.1 x10*3/uL (2.0-8.3); Neutrophils Percent Auto 84.8 % (45-73); Platelet Count 203 X10*3/uL (160-400); Red Blood Count 4.19 X10*6/uL (4.60-5.80); Red Cell Distribution Width 13.8 % (11.0-16.0); White Blood Count 14.3 X10*3/uL (4.8-10.8)
[2022-07-10 07:31] LABS: Anion Gap 14 (12-20); Blood Urea Nitrogen 15 mg/dL (9-16); Calcium 8.7 mg/dL (8.4-10.2); Carbon Dioxide 23 mmol/L (22-29); Chloride 105 mmol/L (96-108); Estimated Glomerular Filt Rate > 60; Glucose Random 106 mg/dL (60-115); Magnesium 2.1 mg/dL (1.6-2.6); Potassium 3.7 mmol/L (3.3-5.1); Sodium 138 mmol/L (135-145)
--- NOTE | 2022-07-10 07:52 | PM.CNOR ---
History of Present Illness HPI Consult date: 07/10/22 Chief complaint: Sepsis, IVDU, ECG changes. Narrative: 36-year-old male with past medical history of IV drug use, history of endocarditis, history of septic pulmonary embolism, history of DVT, depression, ADHD, presents to the hospital with complaints of significant pain in the left calf and the right ankle with right ankle swelling for the past 2 days.? He reports his symptoms worsening and last night he attempted to ambulate to the the bathroom but he had significant pain in his left calf and right ankle causing him to fall. The pain in the ankle is 9/10, going of his right leg, he has track perez along the medial calf area of both lower legs extending to the medial aspect of the thighs bilaterally. Review of Systems Review of Systems: Yes all other systems are reviewed and are negative PMFSH Past Medical History Medical History (Updated 07/13/22 @ 18:05 by Kashmir Dennis MD) Abrasion of face ADHD DVT (deep venous thrombosis) Endocarditis Eye contusion Head injury Hepatitis C Heroin overdose IV drug abuse Left upper extremity deep vein thrombosis Mood disorder Multiple abrasions Opiate abuse, continuous Pulmonary emboli Severe sepsis Suicide attempt Surgical History Surgical History History of left knee surgery Hx of eye surgery S/P left knee arthroscopy Social History Social History Household Members: None Housing: Other Housing Other:: hotel everyday Do you presently have visiting nurse or other home services: No Alcohol intake: never Patient Tobacco Use Status: Current everyday Tobacco user Tobacco use type: Cigarette Cigarette Packs Per Day: 1 Cigarettes Per Day: 30 Years Smoked: 15 e-Cigarette/Vaping Use: Never Used Second Hand Smoke Exposure: No Substance Use Type: Crack/Cocaine and IV Drugs service: No Current occupational status: unemployed Sexual orientation: Straight/Heterosexual Meds Allergies Allergy/AdvReac Type Severity Reaction Status Date / Time haloperidol [From HALDOL] AdvReac Intermediate LOCK JAW Verified 07/11/22 11:54 olanzapine [From ZYPREXA] AdvReac Unknown PT REPORTS Verified 07/11/22 11:54 FEELS LIKE I AM ON AN ACID TRIP Active Medications: Current Medications Acetaminophen (Acetaminophen 325 Mg Tablet) 650 mg PO Q6H PRN PRN Reason: Pain, Mild (Pain Scale 1-3) Albuterol Sulfate (Albuterol Sulfate 90 Mcg 8 Gm Inhaler) 2 puff INHALE Q4H PRN PRN Reason: Respiratory Distress Amphetamine/Dextroamphetamine (Amphetamine Mixed Salts 10 Mg Tablet) 30 mg PO BID [facility] Cariprazine (Cariprazine Hcl 3 Mg Capsule) 3 mg PO DAILY [facility] Clonidine HCl (Clonidine Hcl 0.1 Mg Tablet) 0.1 mg PO DAILY [facility]; Protocol Docusate Sodium (Docusate Sodium 100 Mg Capsule) 100 mg PO DAILY PRN PRN Reason: Constipation Enoxaparin Sodium (Enoxaparin Sodium 40 Mg/0.4 Ml Syringe) 40 mg SUBCUT Q24H [facility] Last Admin: 07/10/22 01:35 Dose: 40 mg Gabapentin (Gabapentin 400 Mg Capsule) 800 mg PO TID [facility] Piperacillin Sod/Tazobactam (Sod 3.375 gm/ Sodium Chloride) 50 mls @ 100 mls/hr IV Q6H [facility] Last Infusion: 07/10/22 06:17 Dose: Infused Sodium Chloride (Ns) 1,000 mls @ 100 mls/hr IVCONT .Q10H [facility] Last Admin: 07/10/22 01:35 Dose: 100 mls/hr Vancomycin HCl 1,250 mg/ (Sodium Chloride) 250 mls @ 166.667 mls/hr IV Q12H [facility] Morphine Sulfate (Morphine Sulfate 4 Mg/Ml Cartridge) 4 mg IVPUSH Q4H PRN; Protocol PRN Reason: Pain, Severe (Pain Scale 7-10) Last Admin: 07/10/22 05:44 Dose: 4 mg Ondansetron HCl (Ondansetron Hcl 4 Mg/2 Ml Vial) 4 mg IVPUSH Q8H PRN PRN Reason: Nausea and Vomiting Pharmacy Consult (Consult Rx Perform Med Rec) 1 each MISCELLANE ONCE PRN PRN Reason: Consult order Pharmacy Consult (Consult Rx Vancomycin Dosing) 1 each MISCELLANE DAILY PRN PRN Reason: Consult order Prazosin HCl (Prazosin Hcl 1 Mg Capsule) 2 mg PO BEDTIME [facility]; Protocol Sodium Chloride (0.9 % Sodium Chloride Flush 3 Ml Syringe) 3 ml IVFLUSH QSHIFT [facility] Home Medications Medication Instructions Recorded Confirmed Last Taken Type albuterol sulfate 90 mcg/actuation 2 puff inhalation Q4H PRN 11/13/21 07/09/22 Unknown History aerosol inhaler Respiratory Distress prazosin 1 mg capsule 2 mg PO BEDTIME 11/13/21 07/09/22 Unknown History cariprazine 3 mg capsule (Vraylar) 3 mg PO DAILY 07/09/22 07/09/22 Unknown History clonidine HCl 0.1 mg tablet 0.1 mg PO DAILY 07/09/22 07/09/22 Unknown History dextroamphetamine-amphetamine 30 1 tab PO BID 07/09/22 07/09/22 Unknown History mg tablet gabapentin 800 mg tablet 800 mg PO TID 07/09/22 07/09/22 Unknown History Physical Exam Vital Signs: Vital Signs: Last Vital Signs Temp 98.4 F 07/10/22 05:27 Pulse 87 07/10/22 05:27 Resp 14 07/10/22 05:27 BP 143/78 H 07/10/22 05:27 Pulse Ox 99 07/10/22 05:27 O2 Del Method 07/10/22 05:27 BMI result Body Mass Index 21.1 Const: General: cooperative, healthy appearing and no acute distress Resp: Effort & Inspection: normal respiratory effort and able to speak in complete sentences Cardio: Rate: regular rate Peripheral pulses: Peripheral pulses 2+ throughout GI: Palpation (GI): Soft to palpation Skin: Lesions: no lesions Rashes: no rashes Extrem: Other: Right ankle lateral malleolar edema. No erythema, warmth, or ecchymosis. Able to slightly dorsiflex and plantarflex but is quite limited due to pain. Sensation reportedly intact. Pedal pulse intact. Track eprez noted bilateral lower extremities extending from the calves to the medial aspect of the thighs bilaterally. Results Labs Result Diagrams: 07/14/22 06:44 07/16/22 06:10 Labs: Abnormal lab results 07/09/22 07/09/22 07/09/22 Range/Units 20:41 20:41 21:51 WBC 21.3 H (4.8-10.8) X10*3/uL RBC (4.60-5.80) X10*6/uL Hgb 12.5 L D (14.0-18.0) g/dl Hct 38.6 L (42.0-52.0) % MCH 26.9 L (27.0-33.0) pg MPV 8.7 L (9.4-12.4) fL Neut % (Auto) 89.6 H (45-73) % Lymph % (Auto) 2.7 L (20-40) % Lymph # (Auto) 0.6 L (1.2-4.9) X10*3/uL [place] # (Auto) 1.5 H (0.1-1.2) X10*3/uL Abs Immat Gran (auto) 0.08 H (0.00-0.03) X10*3/uL Absolute Neuts (auto) 19.1 H (2.0-8.3) x10*3/uL ESR 28 H (0-15) MM/HR PT (10.0-13.1) SEC INR (0.9-1.1) Sodium 130 L (135-145) mmol/L Chloride 93 L (96-108) mmol/L Magnesium (1.6-2.6) mg/dL Total Bilirubin 1.4 H (0.0-1.0) mg/dL AST 39 H D (5-37) U/L ALT 46 H (0-40) U/L C-Reactive Protein (< or = 0.50) mg/dL Total Protein 8.6 H (6.5-8.0) g/dL Urine Blood (Negative) Urine Opiates Screen (Not Detect) Urine Fentanyl Screen (Not Detect) Urine Cocaine Screen (Not Detect) 07/09/22 07/09/22 07/10/22 Range/Units 21:51 21:51 03:36 WBC (4.8-10.8) X10*3/uL RBC (4.60-5.80) X10*6/uL Hgb (14.0-18.0) g/dl Hct (42.0-52.0) % MCH (27.0-33.0) pg MPV (9.4-12.4) fL Neut % (Auto) (45-73) % Lymph % (Auto) (20-40) % Lymph # (Auto) (1.2-4.9) X10*3/uL [place] # (Auto) (0.1-1.2) X10*3/uL Abs Immat Gran (auto) (0.00-0.03) X10*3/uL Absolute Neuts (auto) (2.0-8.3) x10*3/uL ESR (0-15) MM/HR PT 16.7 H (10.0-13.1) SEC INR 1.4 H (0.9-1.1) Sodium (135-145) mmol/L Chloride (96-108) mmol/L Magnesium 1.5 L (1.6-2.6) mg/dL Total Bilirubin (0.0-1.0) mg/dL AST (5-37) U/L ALT (0-40) U/L C-Reactive Protein 13.16 H (< or = 0.50) mg/dL Total Protein (6.5-8.0) g/dL Urine Blood Trace H (Negative) Urine Opiates Screen (Not Detect) Urine Fentanyl Screen (Not Detect) Urine Cocaine Screen (Not Detect) 07/10/22 07/10/22 Range/Units 03:36 06:37 WBC 14.3 H (4.8-10.8) X10*3/uL RBC 4.19 L (4.60-5.80) X10*6/uL Hgb 11.3 L (14.0-18.0) g/dl Hct 35.1 L (42.0-52.0) % MCH (27.0-33.0) pg MPV (9.4-12.4) fL Neut % (Auto) 84.8 H (45-73) % Lymph % (Auto) 5.0 L (20-40) % Lymph # (Auto) 0.7 L (1.2-4.9) X10*3/uL [place] # (Auto) 1.4 H (0.1-1.2) X10*3/uL Abs Immat Gran (auto) 0.05 H (0.00-0.03) X10*3/uL Absolute Neuts (auto) 12.1 H (2.0-8.3) x10*3/uL ESR (0-15) MM/HR PT (10.0-13.1) SEC INR (0.9-1.1) Sodium (135-145) mmol/L Chloride (96-108) mmol/L Magnesium (1.6-2.6) mg/dL Total Bilirubin (0.0-1.0) mg/dL AST (5-37) U/L ALT (0-40) U/L C-Reactive Protein (< or = 0.50) mg/dL Total Protein (6.5-8.0) g/dL Urine Blood (Negative) Urine Opiates Screen POSITIVE H (Not Detect) Urine Fentanyl Screen POSITIVE H (Not Detect) Urine Cocaine Screen POSITIVE H (Not Detect) H & H 07/09/22 07/10/22 Range/Units 20:41 06:37 Hgb 12.5 L D 11.3 L (14.0-18.0) g/dl Hct 38.6 L 35.1 L (42.0-52.0) % Coagulation 07/09/22 Range/Units 21:51 INR 1.4 H (0.9-1.1) All other labs normal. Assessment and Plan (1) Right ankle effusion: Status: Acute Case discussed with Dr. Cortez who was also available to see the patient with me Bedside Right ankle aspiration performed About 3cc of cloudy aspirate was obtained and sent to the lab for analysis. X-rays reviewed of the right ankle are negative for any acute fracture or dislocation Continue IV abx per medicine Pending joint fluid analysis Procedures Date of Service Date of Service: 07/10/22
--- NOTE | 2022-07-10 07:57 | PC.NURSE ---
Pt to [facility]
[2022-07-10] MEDS: Amphetamine Mixed Salts 10 MG TABLET 30 MG PO ×2 (08:34→16:04)
[2022-07-10] MEDS: cloNIDine HCL 0.1 MG TABLET PO (08:34)
[2022-07-10] MEDS: Gabapentin 400 MG CAPSULE 800 MG PO ×3 (08:35→22:34)
[2022-07-10] MEDS: Cariprazine HCl 3 MG CAPSULE PO (08:36)
[2022-07-10] MEDS: vancomycin HCL 1,250 MG in 0.9 % Sodium Chloride 250 ML 166.67 MG IV ×2 (10:20→22:35)
[2022-07-10] MEDS: Acetaminophen 325 MG TABLET 650 MG PO ×2 (10:21→20:14)
--- NOTE | 2022-07-10 10:25 | PHA.PROG ---
Admission Date/Time: July 10, 2022 01:01 Indication:Sepsis Weight in k.235 kg Adjusted body weight in K.15 kg [place] body weight in K.1 kg Obesity Dosing Indication % IBW: N/A Serum Creatinine - Last 168 Hours 07/09/22 07/10/22 07/10/22 20:41 06:36 06:37 Creatinine 0.77 0.73 Cancelled Estimated CrCl and GFR - Last 168 Hours 07/09/22 07/10/22 07/10/22 20:41 06:36 06:37 Estim Creat Clear Calc 113.7 120.0 Cancelled Estimated GFR > 60 > 60 Cancelled Vancomycin Loading Dose: 1500 mg (24.49 mg/kg) Current Vancomycin Dosing Regimen: 1250 mg Q12H Date and Time for next Vancomycin Level to be drawn: 07/11 @ 0800 Pharmacist Comments on Vancomycin Plan: Patient received vanco 1500 mg loading dose in the ED 07/09 @ 2200. Maintenance dose vancomycin 1250 mg Q12H is scheduled to start 07/10 @ 1000. Expected AUC 556 with a trough of 15.8. Trough is schedule for prior to the 4th dose Pharmacy to monitor renal function daily Vancomycin dosing will take advantage of [employer] as a clinical decision support tool that uses Bayesian modeling to calculate individual patient's pharmacokinetic parameters and forecast the patient's drug concentration time course with the target goal AUC 24 range of 400 - 600 mg/L/hr.
[2022-07-10] MEDS: HYDROmorphone HCl 1 MG/ML SYRINGE IVPUSH ×3 (10:48→20:16)
--- NOTE | 2022-07-10 11:43 | MHC.RECOVRN ---
This senior medical writer met w/ pt, pt alert, laying in bed. Pt reports was on Suboxone approximately one month ago. Pt expressed interest in starting Methadone. Pt reports last use, last night, 3 bags heroin IV. Pt reports is starting to feel withdrawal symptoms, hot/cold sweats, goose flesh. Provider aware. Pt request to f/u later due to not sleeping in 3 days, pt states is really tired.
[2022-07-10] MEDS: iohexoL 350 MG/ML 100 ML INFUS..BTL IV (11:50)
[2022-07-10] MEDS: methADONE HCl 20 MG/2 ML ORAL.CONC PO (12:09)
--- NOTE | 2022-07-10 12:28 | PM.EVENT ---
Event Note Date of Service: 07/10/22 Event Note: Day team follow up S Seen and examined. Reports he was clean but started using 1 month ago after issues obtaining is suboxone. Now wishes to get clean again, requesting addiction medicine consult for methadone. reports current dose of morphine is not controlling his ankle pain O vitals -- last documented and statble gen - appears ill; sweating cvs - s1s2 lungs - clear abd - soft nt ext - RLE TTP and edema; ROM limited secondary to pain a/p 36 yo M who was clean up until 1 month ago and started using IV now presenting with stigmata of IVDU including bacteremia and possible septic arthritis of the R ankle continue antibiotics, escalate pain control to IV dilaudid, ortho f/u appreciated -- joint aspirated and sent for studies addiction medicine consult for OUD -- appears to be withdrawing despite IV opiates for pain control remainder per H&P documented this AM
[2022-07-10 12:31] LABS: MN% 15.7 %; PMN% 84.3 %
[2022-07-10 12:33] LABS: RBC Synovial Fluid 0.023 X10*6/uL
[2022-07-10 12:43] LABS: Lymphocytes Synovial Fluid 2 %; Monocytes Synovial Fluid 12 %; Neutrophils Synovial Fluid 86 %
[2022-07-10 12:44] LABS: BF Shift QC OK YES; Man Diluent Bkgrd OK YES
--- NOTE | 2022-07-10 13:19 | MHC.CM.PN ---
Patient is homeless and has a history of IVDA. Per ROUNDS discussion, stated it is likely Patient will need LT IVABT in a SNF. CM will follow. PCP is Dr. Raquel Gao.
[2022-07-10] MEDS: Lactated Ringers 1,000 ML 100 ML IVCONT ×2 (13:25→22:36)
--- NOTE | 2022-07-10 15:29 | PC.NURSE ---
skyla w jomar SHEIKH pt ate 100% of his lunch at approx 1300 per gear technician.
[2022-07-10] MEDS: ceFAZolin Sodium/Dextrose,Iso 2 GM/50 ML PIGGYBACK IV (16:06)
--- NOTE | 2022-07-10 18:24 | PC.NURSE ---
pt a&ox3, vss, medicated per provider order, LR running at 100ml/hr, pt reports increased tolerance of pain w dilaudid. pt NPO at midnight.
--- NOTE | 2022-07-10 19:45 | PC.NURSE ---
RN-RN report called into [facility]. RN looking into sitter and will communicate when they are ready for pt.
[2022-07-10] MEDS: methADONE HCl 20 MG/2 ML ORAL.CONC 10 MG PO (20:15)
--- NOTE | 2022-07-10 21:35 | P.PNADD_ITS ---
Subjective Subjective Date of Service: 07/10/22 Reason For Visit: Sepsis, IVDU Interim History: Patient with history of OUD, known to this show card writer via previous admissions, currently medically admitted with sepsis. Reporting withdrawal sx. Most recently on subxone, however recurrence of use and has been using 2-3 bundles heroin/fentnayl daily. Requesting to start methadone. Administered 20mg earlier in the day with good effect. Patient reporting chills, body aches and nausea. Appearing ill and tired when seen by this show card writer. Requesting to continue titrating methadone dose. Review of Systems Acute medical concerns: Yes Medical Review of Systems: unchanged Mental Status Exam Mental Status Exam Patient Appearance: Fatigued Patient Orientation: Person, Place, Time and Situation Level of Consciousness: Awake, Appropriate and Lethargic Patient Behavior: Appropriate and Cooperative Mood Description: Calm Affect Description: Calm Diagnostics Vital Signs (24Hr): Vital Signs - 24 hr 07/09/22 23:04 07/10/22 01:37 07/10/22 05:27 Temperature 98.1 F 98.6 F 98.4 F Pulse Rate 76 68 87 Respiratory Rate 14 14 14 Blood Pressure 127/81 97/51 L 143/78 H Pulse Oximetry 99 97 99 Oxygen Delivery Method Room Air Room Air Room Air 07/10/22 09:40 07/10/22 13:40 07/10/22 18:15 Temperature 98.5 F 99.2 F Pulse Rate 82 70 79 Respiratory Rate 13 17 18 Blood Pressure 110/58 L 119/62 127/76 Pulse Oximetry 98 99 99 Oxygen Delivery Method Room Air Room Air Room Air BMI result Body Mass Index 21.1 Labs Results: 07/10/22 06:37 07/10/22 06:36 Labs: Laboratory Results - last 48 hr 07/09/22 07/09/22 07/09/22 20:41 20:41 20:41 WBC 21.3 H RBC 4.64 D Hgb 12.5 L D Hct 38.6 L MCV 83.2 MCH 26.9 L MCHC 32.4 RDW 13.7 Plt Count 266 MPV 8.7 L Immature Gran % (Auto) 0.4 Neut % (Auto) 89.6 H Lymph % (Auto) 2.7 L [place] % (Auto) 7.1 Eos % (Auto) 0.1 Baso % (Auto) 0.1 Lymph # (Auto) 0.6 L [place] # (Auto) 1.5 H Eos # (Auto) 0.0 Baso # (Auto) 0.0 Abs Immat Gran (auto) 0.08 H Absolute Neuts (auto) 19.1 H Absolute Nucleated RBC 0.000 Nucleated RBC % (auto) 0.0 Smear Tech's Comments VERIFIED ESR PT INR D-Dimer High Sensitivty Sodium 130 L Potassium 3.8 Chloride 93 L Carbon Dioxide 23 Anion Gap 18 BUN 9 Creatinine 0.77 Estim Creat Clear Calc 113.7 Estimated GFR > 60 Random Glucose 100 Lactic Acid 0.9 Calcium 9.5 Magnesium Total Bilirubin 1.4 H Direct Bilirubin 0.5 AST 39 H D ALT 46 H Alkaline Phosphatase 94 Troponin I High Sens C-Reactive Protein Total Protein 8.6 H Albumin 4.2 Urine Color Urine Appearance Urine pH Ur Specific [place] Urine Protein Urine Glucose (UA) Urine Ketones Urine Blood Urine Nitrite Ur Leukocyte Esterase Urine RBC Urine WBC Ur Squamous Epith Cells Urine Bacteria Hyaline Casts Synovial Source Synovial WBC Synovial RBC Synovial Neutrophils Synovial Lymphocytes Synovial Monocytes Urine Opiates Screen Urine Fentanyl Screen Ur Barbiturates Screen Ur Phencyclidine Scrn Ur Amphetamines Screen U Benzodiazepines Scrn Urine Cocaine Screen U Marijuana (THC) Screen Ethyl Alcohol COVID-19 (MARILY[facility]) COVID-19 Clin Com 07/09/22 07/09/22 07/09/22 21:51 21:51 21:51 WBC RBC Hgb Hct MCV MCH MCHC RDW Plt Count MPV Immature Gran % (Auto) Neut % (Auto) Lymph % (Auto) [place] % (Auto) Eos % (Auto) Baso % (Auto) Lymph # (Auto) [place] # (Auto) Eos # (Auto) Baso # (Auto) Abs Immat Gran (auto) Absolute Neuts (auto) Absolute Nucleated RBC Nucleated RBC % (auto) Smear Tech's Comments ESR 28 H PT INR D-Dimer High Sensitivty Sodium Potassium Chloride Carbon Dioxide Anion Gap BUN Creatinine Estim Creat Clear Calc Estimated GFR Random Glucose Lactic Acid Calcium Magnesium 1.5 L Total Bilirubin Direct Bilirubin AST ALT Alkaline Phosphatase Troponin I High Sens < 3.5 D C-Reactive Protein 13.16 H Total Protein Albumin Urine Color Urine Appearance Urine pH Ur Specific [place] Urine Protein Urine Glucose (UA) Urine Ketones Urine Blood Urine Nitrite Ur Leukocyte Esterase Urine RBC Urine WBC Ur Squamous Epith Cells Urine Bacteria Hyaline Casts Synovial Source Synovial WBC Synovial RBC Synovial Neutrophils Synovial Lymphocytes Synovial Monocytes Urine Opiates Screen Urine Fentanyl Screen Ur Barbiturates Screen Ur Phencyclidine Scrn Ur Amphetamines Screen U Benzodiazepines Scrn Urine Cocaine Screen U Marijuana (THC) Screen Ethyl Alcohol COVID-19 (MARILYN) COVID-19 Clin Com 07/09/22 07/09/22 07/09/22 21:51 21:51 21:52 WBC RBC Hgb Hct MCV MCH MCHC RDW Plt Count MPV Immature Gran % (Auto) Neut % (Auto) Lymph % (Auto) [place] % (Auto) Eos % (Auto) Baso % (Auto) Lymph # (Auto) [place] # (Auto) Eos # (Auto) Baso # (Auto) Abs Immat Gran (auto) Absolute Neuts (auto) Absolute Nucleated RBC Nucleated RBC % (auto) Smear Tech's Comments ESR PT 16.7 H INR 1.4 H D-Dimer High Sensitivty 533 Sodium Potassium Chloride Carbon Dioxide Anion Gap BUN Creatinine Estim Creat Clear Calc Estimated GFR Random Glucose Lactic Acid Calcium Magnesium Total Bilirubin Direct Bilirubin AST ALT Alkaline Phosphatase Troponin I High Sens C-Reactive Protein Total Protein Albumin Urine Color Urine Appearance Urine pH Ur Specific [place] Urine Protein Urine Glucose (UA) Urine Ketones Urine Blood Urine Nitrite Ur Leukocyte Esterase Urine RBC Urine WBC Ur Squamous Epith Cells Urine Bacteria Hyaline Casts Synovial Source Synovial WBC Synovial RBC Synovial Neutrophils Synovial Lymphocytes Synovial Monocytes Urine Opiates Screen Urine Fentanyl Screen Ur Barbiturates Screen Ur Phencyclidine Scrn Ur Amphetamines Screen U Benzodiazepines Scrn Urine Cocaine Screen U Marijuana (THC) Screen Ethyl Alcohol < 10 COVID-19 (MARILYN) Negative COVID-19 Clin Com See Note 07/10/22 07/10/22 07/10/22 03:36 03:36 06:36 WBC RBC Hgb Hct MCV MCH MCHC RDW Plt Count MPV Immature Gran % (Auto) Neut % (Auto) Lymph % (Auto) [place] % (Auto) Eos % (Auto) Baso % (Auto) Lymph # (Auto) [place] # (Auto) Eos # (Auto) Baso # (Auto) Abs Immat Gran (auto) Absolute Neuts (auto) Absolute Nucleated RBC Nucleated RBC % (auto) Smear Tech's Comments ESR PT INR D-Dimer High Sensitivty Sodium 138 Potassium 3.7 Chloride 105 Carbon Dioxide 23 Anion Gap 14 BUN 15 D Creatinine 0.73 Estim Creat Clear Calc 120.0 Estimated GFR > 60 Random Glucose 106 Lactic Acid Calcium 8.7 D Magnesium 2.1 Total Bilirubin Direct Bilirubin AST ALT Alkaline Phosphatase Troponin I High Sens C-Reactive Protein Total Protein Albumin Urine Color Yellow Urine Appearance Clear Urine pH 5.5 Ur Specific [place] 1.015 Urine Protein Negative Urine Glucose (UA) Negative Urine Ketones Negative Urine Blood Trace H Urine Nitrite Negative Ur Leukocyte Esterase Negative Urine RBC 0-2 Urine WBC 0-5 Ur Squamous Epith Cells 0-2 Urine Bacteria None Seen Hyaline Casts 0-2 Synovial Source Synovial WBC Synovial RBC Synovial Neutrophils Synovial Lymphocytes Synovial Monocytes Urine Opiates Screen POSITIVE H Urine Fentanyl Screen POSITIVE H Ur Barbiturates Screen Not Detected Ur Phencyclidine Scrn Not Detected Ur Amphetamines Screen Not Detected U Benzodiazepines Scrn Not Detected Urine Cocaine Screen POSITIVE H U Marijuana (THC) Screen Not Detected Ethyl Alcohol COVID-19 (MARILYN) COVID-19 Clin Com 07/10/22 07/10/22 07/10/22 06:37 06:37 11:05 WBC 14.3 H RBC 4.19 L Hgb 11.3 L Hct 35.1 L MCV 83.8 MCH 27.0 MCHC 32.2 RDW 13.8 Plt Count 203 MPV 9.9 Immature Gran % (Auto) 0.3 Neut % (Auto) 84.8 H Lymph % (Auto) 5.0 L [place] % (Auto) 9.8 Eos % (Auto) 0.0 Baso % (Auto) 0.1 Lymph # (Auto) 0.7 L [place] # (Auto) 1.4 H Eos # (Auto) 0.0 Baso # (Auto) 0.0 Abs Immat Gran (auto) 0.05 H Absolute Neuts (auto) 12.1 H Absolute Nucleated RBC 0.000 Nucleated RBC % (auto) 0.0 Smear Tech's Comments ESR PT INR D-Dimer High Sensitivty Sodium Cancelled Potassium Cancelled Chloride Cancelled Carbon Dioxide Cancelled Anion Gap Cancelled BUN Cancelled Creatinine Cancelled Estim Creat Clear Calc Cancelled Estimated GFR Cancelled Random Glucose Cancelled Lactic Acid Calcium Cancelled Magnesium Total Bilirubin Direct Bilirubin AST ALT Alkaline Phosphatase Troponin I High Sens C-Reactive Protein Total Protein Albumin Urine Color Urine Appearance Urine pH Ur Specific [place] Urine Protein Urine Glucose (UA) Urine Ketones Urine Blood Urine Nitrite Ur Leukocyte Esterase Urine RBC Urine WBC Ur Squamous Epith Cells Urine Bacteria Hyaline Casts Synovial Source ankle Synovial WBC 234.880 Synovial RBC 0.023 Synovial Neutrophils 86 Synovial Lymphocytes 2 Synovial Monocytes 12 Urine Opiates Screen Urine Fentanyl Screen Ur Barbiturates Screen Ur Phencyclidine Scrn Ur Amphetamines Screen U Benzodiazepines Scrn Urine Cocaine Screen U Marijuana (THC) Screen Ethyl Alcohol COVID-19 (MARILYN) COVID-19 Clin Com Imaging Radiology Impressions: ITS Impressions Chest X-Ray 07/09/22 21:30 IMPRESSION: No acute intrathoracic disease. Ankle X-Ray 07/09/22 21:33 IMPRESSION: 1. No acute fracture or dislocation. 2. Soft tissue swelling about the ankle. 3. Mild tibiotalar joint osteoarthritis. Venous Duplex 07/09/22 22:15 IMPRESSION: No DVT demonstrated in the bilateral lower extremities. Chest CTA 07/10/22 00:05 IMPRESSION: No evidence of pulmonary emboli in this limited study secondary to poor bolus. Incidentally noted splenomegaly. VTE: Negative but limited Pulmonary Perfusion Imaging 07/10/22 08:23 IMPRESSION: Based on perfusion only modified PIOPED 2 criteria, pulmonary thromboembolism is considered absent. Ankle CT 07/10/22 12:02 IMPRESSION: 1. Diffuse soft tissue swelling of the ankle. No drainable fluid collection. 2. Thickening of the tibialis posterior and flexor digitorum longus tendons with fluid tracking along the tendon sheaths. This could be associated with tenosynovitis. There is also thickening of the flexor hallucis longus tendon focally. This could be tendinosis. 3. Degenerative changes of the ankle mortise. Medications Medications Current Medications Acetaminophen (Acetaminophen 325 Mg Tablet) 650 mg PO Q6H PRN PRN Reason: Pain, Mild (Pain Scale 1-3) Last Admin: 07/10/22 20:14 Dose: 650 mg Albuterol Sulfate (Albuterol Sulfate 90 Mcg 8 Gm Inhaler) 2 puff INHALE Q4H PRN PRN Reason: Respiratory Distress Amphetamine/Dextroamphetamine (Amphetamine Mixed Salts 10 Mg Tablet) 30 mg PO BID@0800,1400 [facility] Last Admin: 07/10/22 16:04 Dose: 30 mg Cariprazine (Cariprazine Hcl 3 Mg Capsule) 3 mg PO DAILY [facility] Last Admin: 07/10/22 08:36 Dose: 3 mg Clonidine HCl (Clonidine Hcl 0.1 Mg Tablet) 0.1 mg PO DAILY [facility]; Protocol Last Admin: 07/10/22 08:34 Dose: 0.1 mg Docusate Sodium (Docusate Sodium 100 Mg Capsule) 100 mg PO DAILY PRN PRN Reason: Constipation Enoxaparin Sodium (Enoxaparin Sodium 40 Mg/0.4 Ml Syringe) 40 mg SUBCUT Q24H [facility] Last Admin: 07/10/22 01:35 Dose: 40 mg Gabapentin (Gabapentin 400 Mg Capsule) 800 mg PO TID [facility] Last Admin: 07/10/22 15:38 Dose: 800 mg Hydromorphone HCl (Hydromorphone Hcl 1 Mg/Ml Syringe) 1 mg IVPUSH Q4H PRN; Protocol PRN Reason: Pain, Severe (Pain Scale 7-10) Last Admin: 07/10/22 20:16 Dose: 1 mg Piperacillin Sod/Tazobactam (Sod 3.375 gm/ Sodium Chloride) 50 mls @ 100 mls/hr IV Q6H [facility] Last Infusion: 07/10/22 19:12 Dose: Infused Vancomycin HCl 1,250 mg/ (Sodium Chloride) 250 mls @ 166.667 mls/hr IV Q12H [facility] Last Infusion: 07/10/22 11:37 Dose: Infused Lactated Ringer's (Lr) 1,000 mls @ 100 mls/hr IVCONT .Q10H [facility] Stop: 07/11/22 08:44 Last Admin: 07/10/22 13:25 Dose: 100 mls/hr Methadone HCl (Methadone Hcl 20 Mg/2 Ml Oral.Conc) 40 mg PO DAILY [facility] Ondansetron HCl (Ondansetron Hcl 4 Mg/2 Ml Vial) 4 mg IVPUSH Q8H PRN PRN Reason: Nausea and Vomiting Pharmacy Consult (Consult Rx Perform Med Rec) 1 each MISCELLANE ONCE PRN PRN Reason: Consult order Pharmacy Consult (Consult Rx Vancomycin Dosing) 1 each MISCELLANE DAILY PRN PRN Reason: Consult order Prazosin HCl (Prazosin Hcl 1 Mg Capsule) 2 mg PO BEDTIME [facility]; Protocol Sodium Chloride (0.9 % Sodium Chloride Flush 3 Ml Syringe) 3 ml IVFLUSH QSHIFT [facility] Last Admin: 07/10/22 15:39 Dose: Not Given Allergies Allergies Allergy/AdvReac Type Severity Reaction Status Date / Time haloperidol [From HALDOL] AdvReac Intermediate LOCK JAW Verified 11/12/21 20:59 olanzapine [From ZYPREXA] AdvReac Unknown PT REPORTS Verified 11/12/21 20:59 FEELS LIKE I AM ON AN ACID TRIP Assessment & Plan Assessment & Plan (1) Opioid use disorder, severe, dependence: Status: Acute Code(s): F11.20 - Opioid dependence, uncomplicated Assessment and Plan: * methadone 10mg this evening --total of 30mg * methadone 40mg in AM * will continue to follow I spent __20____ minutes with the patient and/or on the patient floor today, greater than?50% of which was spent counseling/coordinating care.
[2022-07-10] MEDS: Prazosin HCL 1 MG CAPSULE 2 MG PO (22:34)
[2022-07-11] VITALS (19 sets, daily range): BP systolic 100–139; BP diastolic 58–76; PULSE 55–89; RESP 14–20; TEMP 36.7–37.9; O2SAT 96–98
[2022-07-11] MEDS: HYDROmorphone HCl 1 MG/ML SYRINGE IVPUSH ×7 (00:26→21:03)
[2022-07-11] MEDS: Enoxaparin Sodium 40 MG/0.4 ML SYRINGE SUBCUT (00:27)
[2022-07-11] MEDS: Piperacillin Sodium/Tazobactam 3.375 GM in 0.9 % Sodium Chloride 50 ML IV ×4 (00:28→17:49)
[2022-07-11] MEDS: Acetaminophen 325 MG TABLET 650 MG PO (06:53)
--- NOTE | 2022-07-11 07:00 | CA_ITS ---
Transthoracic Echocardiogram Patient (Last, First, Middle): Moses Howard Tyler Gender: Male Date of : 1985 Age: 36 Procedure Date: 07/11/2022 Procedure Type: Transthoracic Echocardiogram Location: [facility] [place] Height: 170.18 cm Weight: 61.24 kg BSA: 1.71 m2 Heart Rate: 61 bpm BP: 143 / 78 mmHg Distribution Associate: SB Referring MD: Bairon Carrillo MD Symptoms: IVDU, febrile Study Quality: Adequate ECG Rhythm: Sinus Conclusions: - Normal biventricular function. - No obvious vegetation noted on the visualized valves. Findings Left Ventricle Normal left ventricular size, thickness, systolic function, and wall motion. The visually estimated ejection fraction is between 60-65%. Diastolic function is normal for age. Right Ventricle Normal right ventricular cavity size and systolic function. Atria The left atrium is normal in size. The right atrium is likely dilated. Aortic Valve Normal aortic valve structure and function. There is no aortic valve stenosis. There is no aortic valve regurgitation. Mitral Valve The mitral valve appears normal. There is trace mitral valve regurgitation. There is no mitral valve stenosis. Pulmonic Valve The pulmonic valve is likely normal. Tricuspid Valve Normal tricuspid valve structure. There is trace tricuspid valve regurgitation. Normal right atrial pressure. There is no evidence of pulmonary hypertension. Great Vessels All visible segments of the aorta are normal in size. The visualized portions of the pulmonary artery and branches are normal. Venous The inferior vena cava is normal in size and collapses greater than 50% with inspiration. Pericardium/Pleural There is no evidence of pericardial effusion. Prior Study Comparison No significant change compared to prior study dated: 06/13/2020. Recommendations, Care & Conclusions Consider a NETTIE if clinically appropriate. Measurements 2D Linear Measurements IVSd: 0.85 0.6-0.9/0.6-1.0 cm LVIDd: 4.94 3.9-5.3/4.2-5.9 cm LVIDd Index: 2.89 2.4-3.2/2.2-3.1 cm/m2 LVIDs: 3.46 2.0-3.6 cm LVPWd: 1.06 0.7-1.1 cm LA Diam: 3.80 2.7-3.8/3.0-4.0 cm LAIDs Index: 2.22 1.5-2.3 cm/m2 LV Mass: 208.46 67-162/88-224 g LV Mass Index: 121.91 43-95/49-115 g/m2 LVOT Diam: 2.20 3.0+(-)1.3 cm 2D Systolic Function EF 4C: 69.80 >55% EF 2C: 66.20 >55% EF BiP: 66.10 >55% Mitral Valve MV Pk E: 0.84 MV PK A: 0.51 MV Decel Time: 244.00 E/A: 1.60 E'Lateral: 10.20 E'Medial: 8.92 E/E' Med: 9.40 E/E' Lat: 8.20 PHT: 71.00 MVA PHT: 3.10 Decel [place]: 3.44 Aortic Valve AoV Pk Jerrod: 1.53 AoV Pk Grad: 9.00 LVOT LVOT Pk Jerrod: 1.37 LVOT Mn Jerrod: 0.98 LVOT VTI: 0.29 LVOT Pk Grad: 8.00 LVOT Mn Grad: 4.00 LVOT Diam: 2.20 LVOT Area: 3.80 Diastolic Function MV Pk E: 0.84 MV Pk A: 0.51 E/A: 1.60 E'Medial: 8.92 E/E' Med: 9.40 E' Laterial: 10.20 E/E' Lat: 8.20 Right Ventricle TAPSE (mm): 21.20 TVS' Jerrod: 14.10 Tricuspid Valve TR Pk Jerrod: 1.63 TR Pk Grad: 11.00 RA Press: 15.00 RVSP: 26.00 Great Vessels Aorta Sinus of Valsalva: 3.30 2.0-3.5 cm Ao Asc: 2.90 2.1-3.4 cm Pulmonary Veins Pulm Vein S/D 1.20 Pulmonary Valve PV Pk Jerrod: 1.04 Peak PV Grad: 4.00 Updated in Other Vendor System with Status of Final Kashmir Dennis MD electronically signed on 07/11/2022 10:15:59 PM with status of Final
[2022-07-11] MEDS: Amphetamine Mixed Salts 10 MG TABLET 30 MG PO ×2 (08:23→15:10)
[2022-07-11] MEDS: methADONE HCl 20 MG/2 ML ORAL.CONC 40 MG PO (08:23)
[2022-07-11] MEDS: Gabapentin 400 MG CAPSULE 800 MG PO ×3 (08:24→21:02)
[2022-07-11] MEDS: cloNIDine HCL 0.1 MG TABLET PO (08:24)
[2022-07-11] MEDS: Cariprazine HCl 3 MG CAPSULE PO (08:24)
[2022-07-11] MEDS: 0.9 % Sodium Chloride Flush 3 ML SYRINGE IVFLUSH ×2 (08:25→15:12)
[2022-07-11 10:11] LABS: Hematocrit 31.9 % (42.0-52.0); Hemoglobin 10.2 g/dl (14.0-18.0); Mean Corpuscular Hemoglobin 26.8 pg (27.0-33.0); Mean Corpuscular Volume 83.9 fL (80.0-98.0); Mean Platelet Volume 9.4 fL (9.4-12.4); Platelet Count 211 X10*3/uL (160-400); Red Cell Distribution Width 13.7 % (11.0-16.0); White Blood Count 11.3 X10*3/uL (4.8-10.8)
[2022-07-11 10:27] LABS: Anion Gap 14 (12-20); Blood Urea Nitrogen 9 mg/dL (9-16); Calcium 8.8 mg/dL (8.4-10.2); Carbon Dioxide 23 mmol/L (22-29); Chloride 103 mmol/L (96-108); Creatinine Clr Calc Pharmacy 128.8; Estimated Glomerular Filt Rate > 60; Glucose Random 97 mg/dL (60-115); Potassium 3.7 mmol/L (3.3-5.1); Sodium 136 mmol/L (135-145)
[2022-07-11 10:29] LABS: Creatinine Clr Calc Pharmacy 130.7; Estimated Glomerular Filt Rate > 60
[2022-07-11 10:36] LABS: Vancomycin Trough 4.9 mcg/mL (10.0-20.0)
--- NOTE | 2022-07-11 11:15 | HE.PHANOTE ---
Based on trough of 4.9 and SCr 0.68 dose adjusted to 1250 q8, next trough 07/12 at 1000 with expected auc 537 and trough 13
[2022-07-11] MEDS: vancomycin HCL 1,250 MG in 0.9 % Sodium Chloride 250 ML 166.67 MG IV ×2 (11:31→21:04)
--- NOTE | 2022-07-11 12:01 | HO.PM.IMPN ---
Subjective Subjective Date of Service: 07/11/22 Interval History: seen and examined this morning follow up for bacteremia, septic ankle joint reporting pain in right ankle, feeling feverish Review of Systems Review of Systems: Yes all other systems are reviewed and are negative Constitutional Constitutional: Denies chills and Reports fever(s) Cardiovascular Cardiovascular: Denies chest pain, Denies palpitations and Denies dyspnea Respiratory Respiratory: Denies cough and Denies dyspnea Gastrointestinal Gastrointestinal: Denies abdominal pain, Denies nausea and Denies vomiting Endocrine Endocrine: Denies palpitations Physical Exam Vital Signs: Vital Signs: Last Vital Signs Temp 99.0 F 07/11/22 11:13 Pulse 72 07/11/22 11:13 Resp 20 07/11/22 11:13 BP 116/66 07/11/22 11:13 Pulse Ox 98 07/11/22 11:13 O2 Del Method 07/11/22 11:13 BMI result Body Mass Index 21.1 Const: General: alert and awake Nutritional Appearance: thin Orientation/consciousness: patient oriented x3 Resp: Effort & Inspection: normal respiratory effort and able to speak in complete sentences Cardio: Rate: regular rate Heart sounds: S1 normal heart sound present and S2 normal heart sound present GI: Inspection: No distended Palpation (GI): Soft to palpation Skin: Other: right ankle erythema, swelling, tenderness to palpation; decreased ROM at ankle joint Neuro: General: patient oriented x3 and CN's II-XI intact bilaterally Objective Data Active Medications Acetaminophen (Acetaminophen 325 Mg Tablet) 650 mg PO Q6H PRN PRN Reason: Pain, Mild (Pain Scale 1-3) Last Admin: 07/11/22 06:53 Dose: 650 mg Documented By: MAVERICK Albuterol Sulfate (Albuterol Sulfate 90 Mcg 8 Gm Inhaler) 2 puff INHALE Q4H PRN PRN Reason: Respiratory Distress Amphetamine/Dextroamphetamine (Amphetamine Mixed Salts 10 Mg Tablet) 30 mg PO BID@0800,1400 [facility] Last Admin: 07/11/22 08:23 Dose: 30 mg Documented By: AFSANEH Cariprazine (Cariprazine Hcl 3 Mg Capsule) 3 mg PO DAILY [facility] Last Admin: 07/11/22 08:24 Dose: 3 mg Documented By: AFSANEH Clonidine HCl (Clonidine Hcl 0.1 Mg Tablet) 0.1 mg PO DAILY [facility]; Protocol Last Admin: 07/11/22 08:24 Dose: 0.1 mg Documented By: AFSANEH Docusate Sodium (Docusate Sodium 100 Mg Capsule) 100 mg PO DAILY PRN PRN Reason: Constipation Enoxaparin Sodium (Enoxaparin Sodium 40 Mg/0.4 Ml Syringe) 40 mg SUBCUT Q24H [facility] Last Admin: 07/11/22 00:27 Dose: 40 mg Documented By: MAVERICK Gabapentin (Gabapentin 400 Mg Capsule) 800 mg PO TID [facility] Last Admin: 07/11/22 08:24 Dose: 800 mg Documented By: AFSANEH Hydromorphone HCl (Hydromorphone Hcl 1 Mg/Ml Syringe) 1 mg IVPUSH Q4H PRN; Protocol PRN Reason: Pain, Severe (Pain Scale 7-10) Last Admin: 07/11/22 08:37 Dose: 1 mg Documented By: AFSANEH Piperacillin Sod/Tazobactam (Sod 3.375 gm/ Sodium Chloride) 50 mls @ 100 mls/hr IV Q6H [facility] Last Infusion: 07/11/22 11:44 Dose: 0 mls/hr Documented By: AFSANEH Vancomycin HCl 1,250 mg/ (Sodium Chloride) 250 mls @ 166.667 mls/hr IV Q8H [facility] Last Admin: 07/11/22 11:31 Dose: 166.67 mls/hr Documented By: AFSANEH Methadone HCl (Methadone Hcl 20 Mg/2 Ml Oral.Conc) 40 mg PO DAILY [facility] Last Admin: 07/11/22 08:23 Dose: 40 mg Documented By: AFSANEH Ondansetron HCl (Ondansetron Hcl 4 Mg/2 Ml Vial) 4 mg IVPUSH Q8H PRN PRN Reason: Nausea and Vomiting Pharmacy Consult (Consult Rx Perform Med Rec) 1 each MISCELLANE ONCE PRN PRN Reason: Consult order Pharmacy Consult (Consult Rx Vancomycin Dosing) 1 each MISCELLANE DAILY PRN PRN Reason: Consult order Prazosin HCl (Prazosin Hcl 1 Mg Capsule) 2 mg PO BEDTIME [facility]; Protocol Last Admin: 07/10/22 22:34 Dose: 2 mg Documented By: MAVERICK Sodium Chloride (0.9 % Sodium Chloride Flush 3 Ml Syringe) 3 ml IVFLUSH QSHIFT [facility] Last Admin: 07/11/22 08:25 Dose: 3 ml Documented By: AFSANEH Labs CBC & Chem 7: 07/11/22 09:22 07/11/22 09:22 Labs: Laboratory Results - last 24 hr 07/10/22 07/11/22 07/11/22 11:05 09:15 09:22 MCV MCH MCHC RDW Plt Count MPV Absolute Nucleated RBC Nucleated RBC % (auto) Anion Gap Estim Creat Clear Calc 130.7 Estimated GFR > 60 Random Glucose Calcium Synovial WBC 234.880 Synovial RBC 0.023 Synovial Neutrophils 86 Synovial Lymphocytes 2 Synovial Monocytes 12 Vancomycin Trough 4.9 L 07/11/22 07/11/22 09:22 09:22 MCV 83.9 MCH 26.8 L MCHC 32.0 RDW 13.7 Plt Count 211 MPV 9.4 Absolute Nucleated RBC 0.000 Nucleated RBC % (auto) 0.0 Anion Gap 14 Estim Creat Clear Calc 128.8 Estimated GFR > 60 Random Glucose 97 Calcium 8.8 Synovial WBC Synovial RBC Synovial Neutrophils Synovial Lymphocytes Synovial Monocytes Vancomycin Trough Microbiology Microbiology Results: Microbiology 07/10/22 11:05 Gram Stain - Final Ankle Aspirate - Aspirate Anaerobic Culture - Preliminary Culture in progress. Gross Specimen Examination - Final Fluid Crystals - Final Joint Fluid Culture - Preliminary Culture in progress. 07/09/22 21:18 Blood Culture - Preliminary Blood - Venous Streptococcus pyogenes (Grp A) 07/09/22 20:41 Blood Culture - Preliminary Blood - Venous Streptococcus pyogenes (Grp A) Assessment and Plan (1) Right ankle effusion: Status: Acute (2) Streptococcal bacteremia: Status: Acute Plan 36-year-old male with past medical history of IV drug use presents to the hospital with right ankle pain, and various symptoms including fever, chills, nausea, poor oral intake found to have sepsis Sepsis secondary to right ankle septic arthritis s/p joint aspiration by ortho - plan for wash out today leukocytosis trending down, still with intermittent low grade fever -continue IV abx - infectious disease consulted - ortho following Strep pyogenes bacteremia Likely secondary to septic arthritis -follow sensitivites, continue IV vanco/zosyn -repeat blood cultures pending -ID consult pending -echo pending pleuritic chest pain CT angiogram poor study; V/Q negative trop negative acute hyponatremia Resolved suicidal ideation - sitter at bedside - psychiatry consulted OUD Addiction medicine following, has been started on methadone hypomagnesemia, - repleted - follow Mag level depression, ADHD - continue home medications DVT prophylaxis: Sonia attending - dr. ohara Patient requires ongoing inpatient hospitalization for management of bacteremia/septic joint Quality Stroke Does the patient have a stroke diagnosis?: No VTE Prior VTE?: No VTE Risk Level:: Medical - moderate - high VTE Device Contraindication: Treatment Not Indicated VTE Drug Contraindication: N/A - Med Ordered
--- NOTE | 2022-07-11 12:15 | PC.NURSE ---
Report received from overnight RN. Pt reports some relief from pain medication but still experiencing 8/10 pain in R ankle. 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 Pt brought down for procedure today at 1145. Report called to RENAN.
--- NOTE | 2022-07-11 12:29 | P.CONAN_ITS ---
[facility] Active Problems Active Problems: All Active Problems (Updated 07/11/22 @ 11:54 by Berenice Muñiz RN) Septic pulmonary embolism (Acute) Septic arthritis of knee (Acute) Streptococcal bacteremia (Acute) Effusion, left knee (Acute) Anemia (Acute) DVT (deep venous thrombosis) (Acute) Effusion, left knee (Acute) Major depression with psychotic features (Acute) MDD (major depressive disorder), recurrent episode, moderate (Acute) ADHD (attention deficit hyperactivity disorder) (Acute) Opioid use disorder, severe, dependence (Acute) Suicidal ideation (Acute) Fever (Acute) Leukocytosis (Acute) Acute hyponatremia (Acute) Hypomagnesemia (Acute) Chest pain (Acute) Right ankle swelling (Acute) Sepsis (Acute) Pleuritic chest pain (Acute) Right ankle effusion (Acute) Mood disorder (Acute) ADHD (Acute) Past Medical History Medical History (Updated 07/11/22 @ 11:54 by Berenice Muñiz RN) Abrasion of face ADHD DVT (deep venous thrombosis) Endocarditis Eye contusion Head injury Hepatitis C Heroin overdose IV drug abuse Left upper extremity deep vein thrombosis Mood disorder Multiple abrasions Opiate abuse, continuous Pulmonary emboli Severe sepsis Suicide attempt Family History Family history of problems with anesthesia: No Surgical History Surgical History (Updated 07/11/22 @ 11:54 by Berenice Muñiz RN) History of left knee surgery Hx of eye surgery S/P left knee arthroscopy History of Problems with Anesthesia: No Social History Social History Household Members: None Housing: Other Housing Other:: hotel everyday Do you presently have visiting nurse or other home services: No Alcohol intake: never Patient Tobacco Use Status: Current everyday Tobacco user Tobacco use type: Cigarette Cigarette Packs Per Day: 1 Cigarettes Per Day: 30 Years Smoked: 15 e-Cigarette/Vaping Use: Never Used Second Hand Smoke Exposure: No Substance Use Type: Crack/Cocaine and IV Drugs service: No Current occupational status: unemployed Sexual orientation: Straight/Heterosexual Meds Allergies Allergy/AdvReac Type Severity Reaction Status Date / Time haloperidol [From HALDOL] AdvReac Intermediate LOCK JAW Verified 07/11/22 11:54 olanzapine [From ZYPREXA] AdvReac Unknown PT REPORTS Verified 07/11/22 11:54 FEELS LIKE I AM ON AN ACID TRIP Active Medications: Current Medications Acetaminophen (Acetaminophen 325 Mg Tablet) 650 mg PO Q6H PRN PRN Reason: Pain, Mild (Pain Scale 1-3) Last Admin: 07/11/22 06:53 Dose: 650 mg Albuterol Sulfate (Albuterol Sulfate 90 Mcg 8 Gm Inhaler) 2 puff INHALE Q4H PRN PRN Reason: Respiratory Distress Amphetamine/Dextroamphetamine (Amphetamine Mixed Salts 10 Mg Tablet) 30 mg PO BID@0800,1400 [facility] Last Admin: 07/11/22 08:23 Dose: 30 mg Cariprazine (Cariprazine Hcl 3 Mg Capsule) 3 mg PO DAILY [facility] Last Admin: 07/11/22 08:24 Dose: 3 mg Clonidine HCl (Clonidine Hcl 0.1 Mg Tablet) 0.1 mg PO DAILY [facility]; Protocol Last Admin: 07/11/22 08:24 Dose: 0.1 mg Docusate Sodium (Docusate Sodium 100 Mg Capsule) 100 mg PO DAILY PRN PRN Reason: Constipation Enoxaparin Sodium (Enoxaparin Sodium 40 Mg/0.4 Ml Syringe) 40 mg SUBCUT Q24H [facility] Last Admin: 07/11/22 00:27 Dose: 40 mg Gabapentin (Gabapentin 400 Mg Capsule) 800 mg PO TID [facility] Last Admin: 07/11/22 08:24 Dose: 800 mg Hydromorphone HCl (Hydromorphone Hcl 1 Mg/Ml Syringe) 1 mg IVPUSH Q4H PRN; Protocol PRN Reason: Pain, Severe (Pain Scale 7-10) Last Admin: 07/11/22 08:37 Dose: 1 mg Piperacillin Sod/Tazobactam (Sod 3.375 gm/ Sodium Chloride) 50 mls @ 100 mls/hr IV Q6H [facility] Last Infusion: 07/11/22 11:44 Dose: Infused Vancomycin HCl 1,250 mg/ (Sodium Chloride) 250 mls @ 166.667 mls/hr IV Q8H [facility] Last Admin: 07/11/22 11:31 Dose: 166.67 mls/hr Methadone HCl (Methadone Hcl 20 Mg/2 Ml Oral.Conc) 40 mg PO DAILY [facility] Last Admin: 07/11/22 08:23 Dose: 40 mg Ondansetron HCl (Ondansetron Hcl 4 Mg/2 Ml Vial) 4 mg IVPUSH Q8H PRN PRN Reason: Nausea and Vomiting Pharmacy Consult (Consult Rx Perform Med Rec) 1 each MISCELLANE ONCE PRN PRN Reason: Consult order Pharmacy Consult (Consult Rx Vancomycin Dosing) 1 each MISCELLANE DAILY PRN PRN Reason: Consult order Prazosin HCl (Prazosin Hcl 1 Mg Capsule) 2 mg PO BEDTIME [facility]; Protocol Last Admin: 07/10/22 22:34 Dose: 2 mg Sodium Chloride (0.9 % Sodium Chloride Flush 3 Ml Syringe) 3 ml IVFLUSH QSHIFT [facility] Last Admin: 07/11/22 08:25 Dose: 3 ml Home Medications Medication Instructions Recorded Confirmed Last Taken Type albuterol sulfate 90 mcg/actuation 2 puff inhalation Q4H PRN 11/13/21 07/09/22 Unknown History aerosol inhaler Respiratory Distress prazosin 1 mg capsule 2 mg PO BEDTIME 11/13/21 07/09/22 Unknown History cariprazine 3 mg capsule (Vraylar) 3 mg PO DAILY 07/09/22 07/09/22 Unknown History clonidine HCl 0.1 mg tablet 0.1 mg PO DAILY 07/09/22 07/09/22 Unknown History dextroamphetamine-amphetamine 30 1 tab PO BID 07/09/22 07/09/22 Unknown History mg tablet gabapentin 800 mg tablet 800 mg PO TID 07/09/22 07/09/22 Unknown History Exam Exam Date and Time: July 11, 2022 1229 Height,Weight and Vital Signs: Height 5 ft 7 in Weight 61.235 kg Last Vital Signs Temp 99.1 F 07/11/22 12:00 Pulse 62 07/11/22 12:00 Resp 15 07/11/22 12:00 BP 112/64 07/11/22 12:00 Pulse Ox 98 07/11/22 12:00 O2 Del Method 07/11/22 12:00 Pertinent Lab Results Pertinent Lab Results: Laboratory Tests 07/09/22 07/09/22 07/09/22 20:41 20:41 20:41 WBC 21.3 H RBC 4.64 D Hgb 12.5 L D Hct 38.6 L MCV 83.2 MCH 26.9 L MCHC 32.4 RDW 13.7 Plt Count 266 MPV 8.7 L Immature Gran % (Auto) 0.4 Neut % (Auto) 89.6 H Lymph % (Auto) 2.7 L [place] % (Auto) 7.1 Eos % (Auto) 0.1 Baso % (Auto) 0.1 Lymph # (Auto) 0.6 L [place] # (Auto) 1.5 H Eos # (Auto) 0.0 Baso # (Auto) 0.0 Abs Immat Gran (auto) 0.08 H Absolute Neuts (auto) 19.1 H Absolute Nucleated RBC 0.000 Nucleated RBC % (auto) 0.0 Smear Tech's Comments VERIFIED ESR PT INR D-Dimer High Sensitivty Sodium 130 L Potassium 3.8 Chloride 93 L Carbon Dioxide 23 Anion Gap 18 BUN 9 Creatinine 0.77 Estim Creat Clear Calc 113.7 Estimated GFR > 60 Random Glucose 100 Lactic Acid 0.9 Calcium 9.5 Magnesium Total Bilirubin 1.4 H Direct Bilirubin 0.5 AST 39 H D ALT 46 H Alkaline Phosphatase 94 Troponin I High Sens C-Reactive Protein Total Protein 8.6 H Albumin 4.2 Urine Color Urine Appearance Urine pH Ur Specific [place] Urine Protein Urine Glucose (UA) Urine Ketones Urine Blood Urine Nitrite Ur Leukocyte Esterase Urine RBC Urine WBC Ur Squamous Epith Cells Urine Bacteria Hyaline Casts Synovial Source Synovial WBC Synovial RBC Synovial Neutrophils Synovial Lymphocytes Synovial Monocytes Vancomycin Trough Urine Opiates Screen Urine Fentanyl Screen Ur Barbiturates Screen Ur Phencyclidine Scrn Ur Amphetamines Screen U Benzodiazepines Scrn Urine Cocaine Screen U Marijuana (THC) Screen Ethyl Alcohol COVID-19 ([facility]) COVID-19 Clin Com 07/09/22 07/09/22 07/09/22 21:51 21:51 21:51 WBC RBC Hgb Hct MCV MCH MCHC RDW Plt Count MPV Immature Gran % (Auto) Neut % (Auto) Lymph % (Auto) [place] % (Auto) Eos % (Auto) Baso % (Auto) Lymph # (Auto) [place] # (Auto) Eos # (Auto) Baso # (Auto) Abs Immat Gran (auto) Absolute Neuts (auto) Absolute Nucleated RBC Nucleated RBC % (auto) Smear Tech's Comments ESR 28 H PT INR D-Dimer High Sensitivty Sodium Potassium Chloride Carbon Dioxide Anion Gap BUN Creatinine Estim Creat Clear Calc Estimated GFR Random Glucose Lactic Acid Calcium Magnesium 1.5 L Total Bilirubin Direct Bilirubin AST ALT Alkaline Phosphatase Troponin I High Sens < 3.5 D C-Reactive Protein 13.16 H Total Protein Albumin Urine Color Urine Appearance Urine pH Ur Specific [place] Urine Protein Urine Glucose (UA) Urine Ketones Urine Blood Urine Nitrite Ur Leukocyte Esterase Urine RBC Urine WBC Ur Squamous Epith Cells Urine Bacteria Hyaline Casts Synovial Source Synovial WBC Synovial RBC Synovial Neutrophils Synovial Lymphocytes Synovial Monocytes Vancomycin Trough Urine Opiates Screen Urine Fentanyl Screen Ur Barbiturates Screen Ur Phencyclidine Scrn Ur Amphetamines Screen U Benzodiazepines Scrn Urine Cocaine Screen U Marijuana (THC) Screen Ethyl Alcohol COVID-19 ([facility]) COVID-19 Clin Com 07/09/22 07/09/22 07/09/22 21:51 21:51 21:52 WBC RBC Hgb Hct MCV MCH MCHC RDW Plt Count MPV Immature Gran % (Auto) Neut % (Auto) Lymph % (Auto) [place] % (Auto) Eos % (Auto) Baso % (Auto) Lymph # (Auto) [place] # (Auto) Eos # (Auto) Baso # (Auto) Abs Immat Gran (auto) Absolute Neuts (auto) Absolute Nucleated RBC Nucleated RBC % (auto) Smear Tech's Comments ESR PT 16.7 H INR 1.4 H D-Dimer High Sensitivty 533 Sodium Potassium Chloride Carbon Dioxide Anion Gap BUN Creatinine Estim Creat Clear Calc Estimated GFR Random Glucose Lactic Acid Calcium Magnesium Total Bilirubin Direct Bilirubin AST ALT Alkaline Phosphatase Troponin I High Sens C-Reactive Protein Total Protein Albumin Urine Color Urine Appearance Urine pH Ur Specific [place] Urine Protein Urine Glucose (UA) Urine Ketones Urine Blood Urine Nitrite Ur Leukocyte Esterase Urine RBC Urine WBC Ur Squamous Epith Cells Urine Bacteria Hyaline Casts Synovial Source Synovial WBC Synovial RBC Synovial Neutrophils Synovial Lymphocytes Synovial Monocytes Vancomycin Trough Urine Opiates Screen Urine Fentanyl Screen Ur Barbiturates Screen Ur Phencyclidine Scrn Ur Amphetamines Screen U Benzodiazepines Scrn Urine Cocaine Screen U Marijuana (THC) Screen Ethyl Alcohol < 10 COVID-19 ([facility]) Negative COVID-19 Clin Com See Note 07/10/22 07/10/22 07/10/22 03:36 03:36 06:36 WBC RBC Hgb Hct MCV MCH MCHC RDW Plt Count MPV Immature Gran % (Auto) Neut % (Auto) Lymph % (Auto) [place] % (Auto) Eos % (Auto) Baso % (Auto) Lymph # (Auto) [place] # (Auto) Eos # (Auto) Baso # (Auto) Abs Immat Gran (auto) Absolute Neuts (auto) Absolute Nucleated RBC Nucleated RBC % (auto) Smear Tech's Comments ESR PT INR D-Dimer High Sensitivty Sodium 138 Potassium 3.7 Chloride 105 Carbon Dioxide 23 Anion Gap 14 BUN 15 D Creatinine 0.73 Estim Creat Clear Calc 120.0 Estimated GFR > 60 Random Glucose 106 Lactic Acid Calcium 8.7 D Magnesium 2.1 Total Bilirubin Direct Bilirubin AST ALT Alkaline Phosphatase Troponin I High Sens C-Reactive Protein Total Protein Albumin Urine Color Yellow Urine Appearance Clear Urine pH 5.5 Ur Specific [place] 1.015 Urine Protein Negative Urine Glucose (UA) Negative Urine Ketones Negative Urine Blood Trace H Urine Nitrite Negative Ur Leukocyte Esterase Negative Urine RBC 0-2 Urine WBC 0-5 Ur Squamous Epith Cells 0-2 Urine Bacteria None Seen Hyaline Casts 0-2 Synovial Source Synovial WBC Synovial RBC Synovial Neutrophils Synovial Lymphocytes Synovial Monocytes Vancomycin Trough Urine Opiates Screen POSITIVE H Urine Fentanyl Screen POSITIVE H Ur Barbiturates Screen Not Detected Ur Phencyclidine Scrn Not Detected Ur Amphetamines Screen Not Detected U Benzodiazepines Scrn Not Detected Urine Cocaine Screen POSITIVE H U Marijuana (THC) Screen Not Detected Ethyl Alcohol COVID-19 ([facility]) COVID-19 Clin Com 07/10/22 07/10/22 07/10/22 06:37 06:37 11:05 WBC 14.3 H RBC 4.19 L Hgb 11.3 L Hct 35.1 L MCV 83.8 MCH 27.0 MCHC 32.2 RDW 13.8 Plt Count 203 MPV 9.9 Immature Gran % (Auto) 0.3 Neut % (Auto) 84.8 H Lymph % (Auto) 5.0 L [place] % (Auto) 9.8 Eos % (Auto) 0.0 Baso % (Auto) 0.1 Lymph # (Auto) 0.7 L [place] # (Auto) 1.4 H Eos # (Auto) 0.0 Baso # (Auto) 0.0 Abs Immat Gran (auto) 0.05 H Absolute Neuts (auto) 12.1 H Absolute Nucleated RBC 0.000 Nucleated RBC % (auto) 0.0 Smear Tech's Comments ESR PT INR D-Dimer High Sensitivty Sodium Cancelled Potassium Cancelled Chloride Cancelled Carbon Dioxide Cancelled Anion Gap Cancelled BUN Cancelled Creatinine Cancelled Estim Creat Clear Calc Cancelled Estimated GFR Cancelled Random Glucose Cancelled Lactic Acid Calcium Cancelled Magnesium Total Bilirubin Direct Bilirubin AST ALT Alkaline Phosphatase Troponin I High Sens C-Reactive Protein Total Protein Albumin Urine Color Urine Appearance Urine pH Ur Specific [place] Urine Protein Urine Glucose (UA) Urine Ketones Urine Blood Urine Nitrite Ur Leukocyte Esterase Urine RBC Urine WBC Ur Squamous Epith Cells Urine Bacteria Hyaline Casts Synovial Source ankle Synovial WBC 234.880 Synovial RBC 0.023 Synovial Neutrophils 86 Synovial Lymphocytes 2 Synovial Monocytes 12 Vancomycin Trough Urine Opiates Screen Urine Fentanyl Screen Ur Barbiturates Screen Ur Phencyclidine Scrn Ur Amphetamines Screen U Benzodiazepines Scrn Urine Cocaine Screen U Marijuana (THC) Screen Ethyl Alcohol COVID-19 ([facility]) COVID-19 [place] 07/11/22 07/11/22 07/11/22 09:15 09:22 09:22 WBC 11.3 H RBC 3.80 L Hgb 10.2 L Hct 31.9 L MCV 83.9 MCH 26.8 L MCHC 32.0 RDW 13.7 Plt Count 211 MPV 9.4 Immature Gran % (Auto) Neut % (Auto) Lymph % (Auto) [place] % (Auto) Eos % (Auto) Baso % (Auto) Lymph # (Auto) [place] # (Auto) Eos # (Auto) Baso # (Auto) Abs Immat Gran (auto) Absolute Neuts (auto) Absolute Nucleated RBC 0.000 Nucleated RBC % (auto) 0.0 Smear Tech's Comments ESR PT INR D-Dimer High Sensitivty Sodium Potassium Chloride Carbon Dioxide Anion Gap BUN Creatinine 0.67 Estim Creat Clear Calc 130.7 Estimated GFR > 60 Random Glucose Lactic Acid Calcium Magnesium Total Bilirubin Direct Bilirubin AST ALT Alkaline Phosphatase Troponin I High Sens C-Reactive Protein Total Protein Albumin Urine Color Urine Appearance Urine pH Ur Specific [place] Urine Protein Urine Glucose (UA) Urine Ketones Urine Blood Urine Nitrite Ur Leukocyte Esterase Urine RBC Urine WBC Ur Squamous Epith Cells Urine Bacteria Hyaline Casts Synovial Source Synovial WBC Synovial RBC Synovial Neutrophils Synovial Lymphocytes Synovial Monocytes Vancomycin Trough 4.9 L Urine Opiates Screen Urine Fentanyl Screen Ur Barbiturates Screen Ur Phencyclidine Scrn Ur Amphetamines Screen U Benzodiazepines Scrn Urine Cocaine Screen U Marijuana (THC) Screen Ethyl Alcohol COVID-19 ([facility]) COVID-[employer] Com 07/11/22 09:22 WBC RBC Hgb Hct MCV MCH MCHC RDW Plt Count MPV Immature Gran % (Auto) Neut % (Auto) Lymph % (Auto) [place] % (Auto) Eos % (Auto) Baso % (Auto) Lymph # (Auto) [place] # (Auto) Eos # (Auto) Baso # (Auto) Abs Immat Gran (auto) Absolute Neuts (auto) Absolute Nucleated RBC Nucleated RBC % (auto) Smear Tech's Comments ESR PT INR D-Dimer High Sensitivty Sodium 136 Potassium 3.7 Chloride 103 Carbon Dioxide 23 Anion Gap 14 BUN 9 Creatinine 0.68 Estim Creat Clear Calc 128.8 Estimated GFR > 60 Random Glucose 97 Lactic Acid Calcium 8.8 Magnesium Total Bilirubin Direct Bilirubin AST ALT Alkaline Phosphatase Troponin I High Sens C-Reactive Protein Total Protein Albumin Urine Color Urine Appearance Urine pH Ur Specific [place] Urine Protein Urine Glucose (UA) Urine Ketones Urine Blood Urine Nitrite Ur Leukocyte Esterase Urine RBC Urine WBC Ur Squamous Epith Cells Urine Bacteria Hyaline Casts Synovial Source Synovial WBC Synovial RBC Synovial Neutrophils Synovial Lymphocytes Synovial Monocytes Vancomycin Trough Urine Opiates Screen Urine Fentanyl Screen Ur Barbiturates Screen Ur Phencyclidine Scrn Ur Amphetamines Screen U Benzodiazepines Scrn Urine Cocaine Screen U Marijuana (THC) Screen Ethyl Alcohol COVID-19 ([facility]) COVID-19 Clin Com Airway Mallampati Class: II TM Dist: >3cm Neck ROM: Full Assessment and Plan Assessment Anesthesia Assessment: Anesthesia Plan Discussed and Chart Reviewed Final Anesthetic Review Family History of Problems with Anesthesia: No History of Problems with Anesthesia: No NPO: Yes ASA Class: III and Emergency Final Preanesthetic Review: No Changes in Pt Med Stat, Meds/Allgs Chart Reviewed, Consent Obtained/Reviewed and Anes Risks/Benef Reviewed Patient Risk: Intermediate Procedure Risk: Intermediate Anesthetic Plan Anesthetic Plan: GA Disposition: Standard PACU
--- NOTE | 2022-07-11 12:37 | PC.NURSE ---
md gonzáles aware of the patients positive cocaine urine
--- NOTE | 2022-07-11 13:13 | MHC.CLN ---
PT REPORTS 34# WT LOSS ON NURSING ADMISSION ASSESSMENT CURRENT WT 61.2KG PREVIOUS WT HX REVEALS: 63.5KG (11/13/21) 4% NON-SIGNIFICANT WT LOSS X 6 MONTHS 72.6KG (07/19/21) -16% NON-SIGNIFICANT WT LOSS X 1 YEAR PT WITH IVDA AND MAY BE CONTRIBUTOR TO WT FLUCTUATIONS PT IS CURRENTLY NPO WHEN DIET TO ADVANCE; RECOMMEND ADDING ENSURE BID TO INCREASE KCALS SUPP TO PROVIDE 700KCALS, 40G PROTEIN MONITOR PO INTAKE CLOSELY
--- NOTE | 2022-07-11 14:13 | P.BOP_ITS ---
Brief Operative Note Date of Service: 07/11/22 Pre-op diagnosis: septic right ankle Post-op diagnosis: same Procedure: incision and drainage right ankle Surgeon: Ricardo Cortez MD Anesthesia: GETA and regional Was an [employer] Applications Developer used for this Procedure?: Yes [employer] Applications Developer: Ricardo Cortez Estimated blood loss (mL): 5 Tourniquet time (min): 40 IV fluids (mL): 800 Pathology: none sent Condition: stable Disposition: PACU
--- NOTE | 2022-07-11 16:35 | P.PNADD_ITS ---
Subjective Subjective Date of Service: 07/11/22 Reason For Visit: Sepsis, IVDU Interim History: Patient seen in follow up. Awake, alert, engaged in interview. Tolerating methadone dose. Would like to continue titrating. Mild withdrawal sx reported Has surgery on ankle today--soreness/throbbing. Review of Systems Constitutional: Reports as per HPI and Reports no additional constitutional complaints Mental Status Exam Mental Status Exam Patient Appearance: Appropriate Patient Orientation: Person, Place, Time and Situation Level of Consciousness: Awake and Appropriate Patient Behavior: Appropriate and Cooperative Mood Description: Calm Judgement: Fair Diagnostics Vital Signs (24Hr): Vital Signs - 24 hr 07/10/22 18:15 07/10/22 20:00 07/10/22 23:49 Temperature 99.2 F 99.7 F 98.6 F Pulse Rate 79 77 90 Respiratory Rate 18 18 18 Blood Pressure 127/76 130/72 131/73 Pulse Oximetry 99 98 96 Oxygen Delivery Method Room Air Room Air Room Air Oxygen Flow Rate 07/11/22 02:34 07/11/22 03:21 07/11/22 04:25 Temperature 100.2 F Pulse Rate 85 Respiratory Rate 20 20 20 Blood Pressure 133/73 Pulse Oximetry 96 Oxygen Delivery Method Room Air Oxygen Flow Rate 07/11/22 07:16 07/11/22 08:00 07/11/22 09:22 Temperature 98.5 F Pulse Rate 89 Respiratory Rate 18 20 19 Blood Pressure 139/68 Pulse Oximetry 96 Oxygen Delivery Method Room Air Oxygen Flow Rate 07/11/22 11:13 07/11/22 12:00 07/11/22 14:09 Temperature 99.0 F 99.1 F 98.7 F Pulse Rate 72 62 61 Respiratory Rate 20 15 16 Blood Pressure 116/66 112/64 100/58 L Pulse Oximetry 98 98 98 Oxygen Delivery Method Room Air Room Air Nasal Cannula Oxygen Flow Rate 2 07/11/22 14:14 07/11/22 14:19 07/11/22 14:24 Temperature Pulse Rate 61 58 59 Respiratory Rate 14 15 15 Blood Pressure 103/63 105/62 104/62 Pulse Oximetry 97 98 97 Oxygen Delivery Method Nasal Cannula Nasal Cannula Nasal Cannula Oxygen Flow Rate 2 2 2 07/11/22 14:39 07/11/22 14:47 07/11/22 15:00 Temperature 98.2 F 98.3 F Pulse Rate 66 59 55 Respiratory Rate 16 16 18 Blood Pressure 114/73 122/76 117/66 Pulse Oximetry 97 96 96 Oxygen Delivery Method Room Air Room Air Room Air Oxygen Flow Rate BMI result Body Mass Index 21.1 Labs Results: 07/11/22 09:22 07/11/22 09:22 Labs: Laboratory Results - last 48 hr 07/09/22 07/09/22 07/09/22 20:41 20:41 20:41 WBC 21.3 H RBC 4.64 D Hgb 12.5 L D Hct 38.6 L MCV 83.2 MCH 26.9 L MCHC 32.4 RDW 13.7 Plt Count 266 MPV 8.7 L Immature Gran % (Auto) 0.4 Neut % (Auto) 89.6 H Lymph % (Auto) 2.7 L Noble % (Auto) 7.1 Eos % (Auto) 0.1 Baso % (Auto) 0.1 Lymph # (Auto) 0.6 L Noble # (Auto) 1.5 H Eos # (Auto) 0.0 Baso # (Auto) 0.0 Abs Immat Gran (auto) 0.08 H Absolute Neuts (auto) 19.1 H Absolute Nucleated RBC 0.000 Nucleated RBC % (auto) 0.0 Smear Tech's Comments VERIFIED ESR PT INR D-Dimer High Sensitivty Sodium 130 L Potassium 3.8 Chloride 93 L Carbon Dioxide 23 Anion Gap 18 BUN 9 Creatinine 0.77 Estim Creat Clear Calc 113.7 Estimated GFR > 60 Random Glucose 100 Lactic Acid 0.9 Calcium 9.5 Magnesium Total Bilirubin 1.4 H Direct Bilirubin 0.5 AST 39 H D ALT 46 H Alkaline Phosphatase 94 Troponin I High Sens C-Reactive Protein Total Protein 8.6 H Albumin 4.2 Urine Color Urine Appearance Urine pH Ur Specific Otis Urine Protein Urine Glucose (UA) Urine Ketones Urine Blood Urine Nitrite Ur Leukocyte Esterase Urine RBC Urine WBC Ur Squamous Epith Cells Urine Bacteria Hyaline Casts Synovial Source Synovial WBC Synovial RBC Synovial Neutrophils Synovial Lymphocytes Synovial Monocytes Vancomycin Trough Urine Opiates Screen Urine Fentanyl Screen Ur Barbiturates Screen Ur Phencyclidine Scrn Ur Amphetamines Screen U Benzodiazepines Scrn Urine Cocaine Screen U Marijuana (THC) Screen Ethyl Alcohol COVID-19 ([facility]) COVID-19 Clin Com 07/09/22 07/09/22 07/09/22 21:51 21:51 21:51 WBC RBC Hgb Hct MCV MCH MCHC RDW Plt Count MPV Immature Gran % (Auto) Neut % (Auto) Lymph % (Auto) Noble % (Auto) Eos % (Auto) Baso % (Auto) Lymph # (Auto) Noble # (Auto) Eos # (Auto) Baso # (Auto) Abs Immat Gran (auto) Absolute Neuts (auto) Absolute Nucleated RBC Nucleated RBC % (auto) Smear Tech's Comments ESR 28 H PT INR D-Dimer High Sensitivty Sodium Potassium Chloride Carbon Dioxide Anion Gap BUN Creatinine Estim Creat Clear Calc Estimated GFR Random Glucose Lactic Acid Calcium Magnesium 1.5 L Total Bilirubin Direct Bilirubin AST ALT Alkaline Phosphatase Troponin I High Sens < 3.5 D C-Reactive Protein 13.16 H Total Protein Albumin Urine Color Urine Appearance Urine pH Ur Specific Otis Urine Protein Urine Glucose (UA) Urine Ketones Urine Blood Urine Nitrite Ur Leukocyte Esterase Urine RBC Urine WBC Ur Squamous Epith Cells Urine Bacteria Hyaline Casts Synovial Source Synovial WBC Synovial RBC Synovial Neutrophils Synovial Lymphocytes Synovial Monocytes Vancomycin Trough Urine Opiates Screen Urine Fentanyl Screen Ur Barbiturates Screen Ur Phencyclidine Scrn Ur Amphetamines Screen U Benzodiazepines Scrn Urine Cocaine Screen U Marijuana (THC) Screen Ethyl Alcohol COVID-19 ([facility]) COVID-19 Clin Com 07/09/22 07/09/22 07/09/22 21:51 21:51 21:52 WBC RBC Hgb Hct MCV MCH MCHC RDW Plt Count MPV Immature Gran % (Auto) Neut % (Auto) Lymph % (Auto) Noble % (Auto) Eos % (Auto) Baso % (Auto) Lymph # (Auto) Noble # (Auto) Eos # (Auto) Baso # (Auto) Abs Immat Gran (auto) Absolute Neuts (auto) Absolute Nucleated RBC Nucleated RBC % (auto) Smear Tech's Comments ESR PT 16.7 H INR 1.4 H D-Dimer High Sensitivty 533 Sodium Potassium Chloride Carbon Dioxide Anion Gap BUN Creatinine Estim Creat Clear Calc Estimated GFR Random Glucose Lactic Acid Calcium Magnesium Total Bilirubin Direct Bilirubin AST ALT Alkaline Phosphatase Troponin I High Sens C-Reactive Protein Total Protein Albumin Urine Color Urine Appearance Urine pH Ur Specific Otis Urine Protein Urine Glucose (UA) Urine Ketones Urine Blood Urine Nitrite Ur Leukocyte Esterase Urine RBC Urine WBC Ur Squamous Epith Cells Urine Bacteria Hyaline Casts Synovial Source Synovial WBC Synovial RBC Synovial Neutrophils Synovial Lymphocytes Synovial Monocytes Vancomycin Trough Urine Opiates Screen Urine Fentanyl Screen Ur Barbiturates Screen Ur Phencyclidine Scrn Ur Amphetamines Screen U Benzodiazepines Scrn Urine Cocaine Screen U Marijuana (THC) Screen Ethyl Alcohol < 10 COVID-19 ([facility]) Negative COVID-19 Clin Com See Note 07/10/22 07/10/22 07/10/22 03:36 03:36 06:36 WBC RBC Hgb Hct MCV MCH MCHC RDW Plt Count MPV Immature Gran % (Auto) Neut % (Auto) Lymph % (Auto) Noble % (Auto) Eos % (Auto) Baso % (Auto) Lymph # (Auto) Noble # (Auto) Eos # (Auto) Baso # (Auto) Abs Immat Gran (auto) Absolute Neuts (auto) Absolute Nucleated RBC Nucleated RBC % (auto) Smear Tech's Comments ESR PT INR D-Dimer High Sensitivty Sodium 138 Potassium 3.7 Chloride 105 Carbon Dioxide 23 Anion Gap 14 BUN 15 D Creatinine 0.73 Estim Creat Clear Calc 120.0 Estimated GFR > 60 Random Glucose 106 Lactic Acid Calcium 8.7 D Magnesium 2.1 Total Bilirubin Direct Bilirubin AST ALT Alkaline Phosphatase Troponin I High Sens C-Reactive Protein Total Protein Albumin Urine Color Yellow Urine Appearance Clear Urine pH 5.5 Ur Specific Otis 1.015 Urine Protein Negative Urine Glucose (UA) Negative Urine Ketones Negative Urine Blood Trace H Urine Nitrite Negative Ur Leukocyte Esterase Negative Urine RBC 0-2 Urine WBC 0-5 Ur Squamous Epith Cells 0-2 Urine Bacteria None Seen Hyaline Casts 0-2 Synovial Source Synovial WBC Synovial RBC Synovial Neutrophils Synovial Lymphocytes Synovial Monocytes Vancomycin Trough Urine Opiates Screen POSITIVE H Urine Fentanyl Screen POSITIVE H Ur Barbiturates Screen Not Detected Ur Phencyclidine Scrn Not Detected Ur Amphetamines Screen Not Detected U Benzodiazepines Scrn Not Detected Urine Cocaine Screen POSITIVE H U Marijuana (THC) Screen Not Detected Ethyl Alcohol COVID-19 ([facility]) COVID-19 [employer] Com 07/10/22 07/10/22 07/10/22 06:37 06:37 11:05 WBC 14.3 H RBC 4.19 L Hgb 11.3 L Hct 35.1 L MCV 83.8 MCH 27.0 MCHC 32.2 RDW 13.8 Plt Count 203 MPV 9.9 Immature Gran % (Auto) 0.3 Neut % (Auto) 84.8 H Lymph % (Auto) 5.0 L Noble % (Auto) 9.8 Eos % (Auto) 0.0 Baso % (Auto) 0.1 Lymph # (Auto) 0.7 L Noble # (Auto) 1.4 H Eos # (Auto) 0.0 Baso # (Auto) 0.0 Abs Immat Gran (auto) 0.05 H Absolute Neuts (auto) 12.1 H Absolute Nucleated RBC 0.000 Nucleated RBC % (auto) 0.0 Smear Tech's Comments ESR PT INR D-Dimer High Sensitivty Sodium Cancelled Potassium Cancelled Chloride Cancelled Carbon Dioxide Cancelled Anion Gap Cancelled BUN Cancelled Creatinine Cancelled Estim Creat Clear Calc Cancelled Estimated GFR Cancelled Random Glucose Cancelled Lactic Acid Calcium Cancelled Magnesium Total Bilirubin Direct Bilirubin AST ALT Alkaline Phosphatase Troponin I High Sens C-Reactive Protein Total Protein Albumin Urine Color Urine Appearance Urine pH Ur Specific Otis Urine Protein Urine Glucose (UA) Urine Ketones Urine Blood Urine Nitrite Ur Leukocyte Esterase Urine RBC Urine WBC Ur Squamous Epith Cells Urine Bacteria Hyaline Casts Synovial Source ankle Synovial WBC 234.880 Synovial RBC 0.023 Synovial Neutrophils 86 Synovial Lymphocytes 2 Synovial Monocytes 12 Vancomycin Trough Urine Opiates Screen Urine Fentanyl Screen Ur Barbiturates Screen Ur Phencyclidine Scrn Ur Amphetamines Screen U Benzodiazepines Scrn Urine Cocaine Screen U Marijuana (THC) Screen Ethyl Alcohol COVID-19 ([facility]) COVID-19 Clin Com 07/11/22 07/11/22 07/11/22 09:15 09:22 09:22 WBC 11.3 H RBC 3.80 L Hgb 10.2 L Hct 31.9 L MCV 83.9 MCH 26.8 L MCHC 32.0 RDW 13.7 Plt Count 211 MPV 9.4 Immature Gran % (Auto) Neut % (Auto) Lymph % (Auto) Noble % (Auto) Eos % (Auto) Baso % (Auto) Lymph # (Auto) Noble # (Auto) Eos # (Auto) Baso # (Auto) Abs Immat Gran (auto) Absolute Neuts (auto) Absolute Nucleated RBC 0.000 Nucleated RBC % (auto) 0.0 Smear Tech's Comments ESR PT INR D-Dimer High Sensitivty Sodium Potassium Chloride Carbon Dioxide Anion Gap BUN Creatinine 0.67 Estim Creat Clear Calc 130.7 Estimated GFR > 60 Random Glucose Lactic Acid Calcium Magnesium Total Bilirubin Direct Bilirubin AST ALT Alkaline Phosphatase Troponin I High Sens C-Reactive Protein Total Protein Albumin Urine Color Urine Appearance Urine pH Ur Specific Ot[place] Urine Protein Urine Glucose (UA) Urine Ketones Urine Blood Urine Nitrite Ur Leukocyte Esterase Urine RBC Urine WBC Ur Squamous Epith Cells Urine Bacteria Hyaline Casts Synovial Source Synovial WBC Synovial RBC Synovial Neutrophils Synovial Lymphocytes Synovial Monocytes Vancomycin Trough 4.9 L Urine Opiates Screen Urine Fentanyl Screen Ur Barbiturates Screen Ur Phencyclidine Scrn Ur Amphetamines Screen U Benzodiazepines Scrn Urine Cocaine Screen U Marijuana (THC) Screen Ethyl Alcohol COVID-19 ([facility]) COVID-19 Clin Com 07/11/22 09:22 WBC RBC Hgb Hct MCV MCH MCHC RDW Plt Count MPV Immature Gran % (Auto) Neut % (Auto) Lymph % (Auto) Noble % (Auto) Eos % (Auto) Baso % (Auto) Lymph # (Auto) Noble # (Auto) Eos # (Auto) Baso # (Auto) Abs Immat Gran (auto) Absolute Neuts (auto) Absolute Nucleated RBC Nucleated RBC % (auto) Smear Tech's Comments ESR PT INR D-Dimer High Sensitivty Sodium 136 Potassium 3.7 Chloride 103 Carbon Dioxide 23 Anion Gap 14 BUN 9 Creatinine 0.68 Estim Creat Clear Calc 128.8 Estimated GFR > 60 Random Glucose 97 Lactic Acid Calcium 8.8 Magnesium Total Bilirubin Direct Bilirubin AST ALT Alkaline Phosphatase Troponin I High Sens C-Reactive Protein Total Protein Albumin Urine Color Urine Appearance Urine pH Ur Specific Ot[place] Urine Protein Urine Glucose (UA) Urine Ketones Urine Blood Urine Nitrite Ur Leukocyte Esterase Urine RBC Urine WBC Ur Squamous Epith Cells Urine Bacteria Hyaline Casts Synovial Source Synovial WBC Synovial RBC Synovial Neutrophils Synovial Lymphocytes Synovial Monocytes Vancomycin Trough Urine Opiates Screen Urine Fentanyl Screen Ur Barbiturates Screen Ur Phencyclidine Scrn Ur Amphetamines Screen U Benzodiazepines Scrn Urine Cocaine Screen U Marijuana (THC) Screen Ethyl Alcohol COVID-19 ([facility]) COVID-19 Clin Com Imaging Radiology Impressions: ITS Impressions Chest X-Ray 07/09/22 21:30 IMPRESSION: No acute intrathoracic disease. Ankle X-Ray 07/09/22 21:33 IMPRESSION: 1. No acute fracture or dislocation. 2. Soft tissue swelling about the ankle. 3. Mild tibiotalar joint osteoarthritis. Venous Duplex 07/09/22 22:15 IMPRESSION: No DVT demonstrated in the bilateral lower extremities. Chest CTA 07/10/22 00:05 IMPRESSION: No evidence of pulmonary emboli in this limited study secondary to poor bolus. Incidentally noted splenomegaly. VTE: Negative but limited Pulmonary Perfusion Imaging 07/10/22 08:23 IMPRESSION: Based on perfusion only modified PIOPED 2 criteria, pulmonary thromboembolism is considered absent. Ankle CT 07/10/22 12:02 IMPRESSION: 1. Diffuse soft tissue swelling of the ankle. No drainable fluid collection. 2. Thickening of the tibialis posterior and flexor digitorum longus tendons with fluid tracking along the tendon sheaths. This could be associated with tenosynovitis. There is also thickening of the flexor hallucis longus tendon focally. This could be tendinosis. 3. Degenerative changes of the ankle mortise. Medications Medications Current Medications Acetaminophen (Acetaminophen 325 Mg Tablet) 650 mg PO Q6H PRN PRN Reason: Pain, Mild (Pain Scale 1-3) Last Admin: 07/11/22 06:53 Dose: 650 mg Albuterol Sulfate (Albuterol Sulfate 90 Mcg 8 Gm Inhaler) 2 puff INHALE Q4H PRN PRN Reason: Respiratory Distress Amphetamine/Dextroamphetamine (Amphetamine Mixed Salts 10 Mg Tablet) 30 mg PO BID@0800,1400 [facility] Last Admin: 07/11/22 15:10 Dose: 30 mg Cariprazine (Cariprazine Hcl 3 Mg Capsule) 3 mg PO DAILY [facility] Last Admin: 07/11/22 08:24 Dose: 3 mg Clonidine HCl (Clonidine Hcl 0.1 Mg Tablet) 0.1 mg PO DAILY [facility]; Protocol Last Admin: 07/11/22 08:24 Dose: 0.1 mg Docusate Sodium (Docusate Sodium 100 Mg Capsule) 100 mg PO DAILY PRN PRN Reason: Constipation Enoxaparin Sodium (Enoxaparin Sodium 40 Mg/0.4 Ml Syringe) 40 mg SUBCUT Q24H [facility] Last Admin: 07/11/22 00:27 Dose: 40 mg Gabapentin (Gabapentin 400 Mg Capsule) 800 mg PO TID [facility] Last Admin: 07/11/22 15:10 Dose: 800 mg Hydromorphone HCl (Hydromorphone Hcl 1 Mg/Ml Syringe) 1 mg IVPUSH Q4H PRN; Protocol PRN Reason: Pain, Severe (Pain Scale 7-10) Last Admin: 07/11/22 08:37 Dose: 1 mg Hydromorphone HCl (Hydromorphone Hcl 0.5 Mg/0.5 Ml Syringe) 0.5 mg IVPUSH Q5M PRN; Protocol PRN Reason: Pain, Severe (Pain Scale 7-10) Piperacillin Sod/Tazobactam (Sod 3.375 gm/ Sodium Chloride) 50 mls @ 100 mls/hr IV Q6H [facility] Last Infusion: 07/11/22 11:44 Dose: Infused Vancomycin HCl 1,250 mg/ (Sodium Chloride) 250 mls @ 166.667 mls/hr IV Q8H [facility] Last Infusion: 07/11/22 15:13 Dose: Infused Methadone HCl (Methadone Hcl 20 Mg/2 Ml Oral.Conc) 40 mg PO DAILY [facility] Last Admin: 07/11/22 08:23 Dose: 40 mg Ondansetron HCl (Ondansetron Hcl 4 Mg/2 Ml Vial) 4 mg IVPUSH Q8H PRN PRN Reason: Nausea and Vomiting Ondansetron HCl (Ondansetron Hcl 4 Mg/2 Ml Vial) 4 mg IVPUSH ONCE PRN PRN Reason: Nausea and Vomiting Oxycodone HCl (Oxycodone Hcl Immed Release 5 Mg Tablet) 10 mg PO ONCE PRN PRN Reason: Pain, Severe (Pain Scale 7-10) Pharmacy Consult (Consult Rx Perform Med Rec) 1 each MISCELLANE ONCE PRN PRN Reason: Consult order Pharmacy Consult (Consult Rx Vancomycin Dosing) 1 each MISCELLANE DAILY PRN PRN Reason: Consult order Prazosin HCl (Prazosin Hcl 1 Mg Capsule) 2 mg PO BEDTIME [facility]; Protocol Last Admin: 07/10/22 22:34 Dose: 2 mg Sodium Chloride (0.9 % Sodium Chloride Flush 3 Ml Syringe) 3 ml IVFLUSH QSHIFT [facility] Last Admin: 07/11/22 15:12 Dose: 3 ml Allergies Allergies Allergy/AdvReac Type Severity Reaction Status Date / Time haloperidol [From HALDOL] AdvReac Intermediate LOCK [place]AW Verified 07/11/22 11:54 olanzapine [From ZYPREXA] AdvReac Unknown PT REPORTS Verified 07/11/22 11:54 FEELS LIKE I AM ON AN ACID TRIP Assessment & Plan Assessment & Plan (1) Opioid use disorder, severe, dependence: Status: Acute Code(s): F11.20 - Opioid dependence, uncomplicated Assessment and Plan: * methadone 50mgtomorrow * will continue to follow I spent ___20___ minutes with the patient and/or on the patient floor today, greater than?50% of which was spent counseling/coordinating care.
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
[2022-07-11] MEDS: Nicotine 21 MG PATCH.TD24 TRANSDERMA (17:48)
[2022-07-11] MEDS: Prazosin HCL 1 MG CAPSULE 2 MG PO (21:00)
[2022-07-11] MEDS: busPIRone HCl 5 MG TABLET 15 MG PO (21:01)
[2022-07-11] MEDS: QUEtiapine Fumarate 300 MG TABLET PO (21:03)
[2022-07-12] VITALS (7 sets, daily range): BP systolic 125–149; BP diastolic 63–85; PULSE 72–102; RESP 16–22; TEMP 37.1–37.4; O2SAT 98–99
--- NOTE | 2022-07-12 | ECG_ITS ---
Test Reason : check qt Blood Pressure : / mmHG Vent. Rate : 076 BPM Atrial Rate : 076 BPM P-R Int : 124 ms QRS Dur : 086 ms QT Int : 416 ms P-R-T Axes : 029 -03 023 degrees QTc Int : 468 ms Normal sinus rhythm Minimal voltage criteria for LVH, may be normal variant ( R in aVL ) T wave abnormality, consider anterolateral ischemia Abnormal ECG When compared with ECG of 09-JUL-2022 20:39, T wave inversion more evident in Anterior leads Referred By: Pamela Das Electronically Signed By:LEODAN GANN MD
[2022-07-12] MEDS: Piperacillin Sodium/Tazobactam 3.375 GM in 0.9 % Sodium Chloride 50 ML IV ×3 (00:19→11:09)
[2022-07-12] MEDS: Enoxaparin Sodium 40 MG/0.4 ML SYRINGE SUBCUT (00:19)
[2022-07-12] MEDS: HYDROmorphone HCl 1 MG/ML SYRINGE IVPUSH ×4 (02:46→20:29)
[2022-07-12] MEDS: vancomycin HCL 1,250 MG in 0.9 % Sodium Chloride 250 ML 166.67 MG IV (03:32)
[2022-07-12 06:55] LABS: Hematocrit 33.3 % (42.0-52.0); Hemoglobin 10.7 g/dl (14.0-18.0); Mean Corpuscular HGB Conc 32.1 g/dl (31.0-36.0); Mean Corpuscular Hemoglobin 27.2 pg (27.0-33.0); Mean Corpuscular Volume 84.7 fL (80.0-98.0); Mean Platelet Volume 9.1 fL (9.4-12.4); Platelet Count 282 X10*3/uL (160-400); Red Blood Count 3.93 X10*6/uL (4.60-5.80); Red Cell Distribution Width 13.5 % (11.0-16.0); White Blood Count 14.4 X10*3/uL (4.8-10.8)
[2022-07-12 07:32] LABS: Anion Gap 15 (12-20); Blood Urea Nitrogen 13 mg/dL (9-16); Calcium 8.6 mg/dL (8.4-10.2); Carbon Dioxide 22 mmol/L (22-29); Chloride 108 mmol/L (96-108); Creatinine Clr Calc Pharmacy 128.8; Estimated Glomerular Filt Rate > 60; Glucose Random 166 mg/dL (60-115); Potassium 3.6 mmol/L (3.3-5.1); Sodium 141 mmol/L (135-145)
--- NOTE | 2022-07-12 08:23 | PM.PNORT ---
Subjective Subjective Date of Service: 07/12/22 Interval history: POD1 s/p right ankle irrigation and debridement. Patient is resting comfortably in bed. Pain appears to be well managed. No overnight events. No additional complaints. Physical Exam Vital Signs: Vital Signs: Last Vital Signs Temp 99.2 F 07/12/22 07:58 Pulse 72 07/12/22 07:58 Resp 18 07/12/22 07:58 BP 125/71 07/12/22 07:58 Pulse Ox 98 07/12/22 07:58 O2 Del Method 07/12/22 07:58 O2 Flow Rate 2 07/11/22 14:24 BMI result Body Mass Index 21.1 Const: General: cooperative, healthy appearing and no acute distress Resp: Effort & Inspection: normal respiratory effort and able to speak in complete sentences Cardio: Rate: regular rate Peripheral pulses: Peripheral pulses 2+ throughout GI: Palpation (GI): Soft to palpation Skin: Lesions: no lesions Rashes: no rashes Extrem: Other: Right ankle splint is c/d/i. Drain intact with no drainage in the bulb. Able to move all digits. Sensation intact. Procedures Date of Service Date of Service: 07/12/22 Progress Note: A&P Assessment and plan (1) Opioid use disorder, severe, dependence: Status: Acute (2) Right ankle swelling: Status: Acute (3) Sepsis: Status: Acute (4) Right ankle effusion: Status: Acute (5) Septic arthritis of right ankle: Status: Acute Assessment and Plan: Continue pain mgmnt Keep right ankle splint clean, dry, and intact Do not empty the drain bulb Elevate right ankle WBAT IV abx per medicine/ID recommendation Plan for drain pull later today/tomorrow morning Dispo planning-Pain mgmnt Time Spent With Patient Time: Total time spent is greater than 50% in coordination of care (as documented) at patient's floor/unit and/or counseling patient: Quality Stroke Does the patient have a stroke diagnosis?: No VTE Prior VTE?: No VTE Risk Level:: Medical - moderate - high VTE Device Contraindication: Treatment Not Indicated VTE Drug Contraindication: N/A - Med Ordered
[2022-07-12] MEDS: Amphetamine Mixed Salts 10 MG TABLET 30 MG PO ×2 (09:33→13:59)
[2022-07-12] MEDS: busPIRone HCl 5 MG TABLET 15 MG PO ×2 (09:33→20:27)
[2022-07-12] MEDS: methADONE HCl 20 MG/2 ML ORAL.CONC 50 MG PO (09:33)
[2022-07-12] MEDS: Cariprazine HCl 3 MG CAPSULE PO (09:33)
[2022-07-12] MEDS: Gabapentin 400 MG CAPSULE 800 MG PO ×3 (09:33→20:27)
[2022-07-12] MEDS: Nicotine 21 MG PATCH.TD24 TRANSDERMA (09:34)
[2022-07-12] MEDS: cloNIDine HCL 0.1 MG TABLET PO (09:34)
[2022-07-12] MEDS: 0.9 % Sodium Chloride Flush 3 ML SYRINGE IVFLUSH ×3 (09:39→20:30)
[2022-07-12 10:33] LABS: Vancomycin Trough 12.2 mcg/mL (10.0-20.0)
--- NOTE | 2022-07-12 10:51 | HE.PHANOTE ---
RACIEL SPAIN CONTINUE CURRENT DOSE; NEXT TROUGH 07/13 @1000
--- NOTE | 2022-07-12 11:08 | MHC.CM.PN ---
Per CARE TEAM/EM, If Patient does not go to SNF for LT IVABT, he is interested in CSS. CM will follow
--- NOTE | 2022-07-12 11:55 | P.PNIM_ITS ---
Subjective Subjective Date of Service: 07/12/22 Interval History: Seen and examined this morning Follow-up for bacteremia, septic arthritis of right ankle Status post irrigation and debridement in the OR 07/12 still with pain in the right ankle no fever or chills Review of Systems Review of Systems: Yes all other systems are reviewed and are negative Constitutional Constitutional: Denies chills and Denies fever(s) Cardiovascular Cardiovascular: Denies palpitations and Denies dyspnea Respiratory Respiratory: Denies cough, Reports pain on inspiration and Denies dyspnea Endocrine Endocrine: Denies palpitations Physical Exam Vital Signs: Vital Signs: Last Vital Signs Temp 99.2 F 07/12/22 07:58 Pulse 72 07/12/22 07:58 Resp 22 H 07/12/22 11:05 BP 125/71 07/12/22 07:58 Pulse Ox 98 07/12/22 07:58 O2 Del Method 07/12/22 07:58 O2 Flow Rate 2 07/11/22 14:24 BMI result Body Mass Index 21.1 Const: General: alert and awake Nutritional Appearance: thin Orientation/consciousness: patient oriented x3 Resp: Effort & Inspection: normal respiratory effort and able to speak in complete sentences Cardio: Rate: regular rate Heart sounds: S1 normal heart sound present and S2 normal heart sound present GI: Inspection: No distended Palpation (GI): Soft to palpation Skin: Other: right ankle erythema, swelling, tenderness to palpation; decreased ROM at ankle joint Neuro: General: patient oriented x3 and CN's II-XI intact bilaterally Extrem: Other: right foot/leg splinted; LEAH drain with no output Objective Data Active Medications Acetaminophen (Acetaminophen 325 Mg Tablet) 650 mg PO Q6H PRN PRN Reason: Pain, Mild (Pain Scale 1-3) Last Admin: 07/11/22 06:53 Dose: 650 mg Documented By: MAVERICK Albuterol Sulfate (Albuterol Sulfate 90 Mcg 8 Gm Inhaler) 2 puff INHALE Q4H PRN PRN Reason: Respiratory Distress Amphetamine/Dextroamphetamine (Amphetamine Mixed Salts 10 Mg Tablet) 30 mg PO BID@0800,1400 [facility] Last Admin: 07/12/22 09:33 Dose: 30 mg Documented By: YAMILET Buspirone HCl (Buspirone Hcl 5 Mg Tablet) 15 mg PO BID [facility] Last Admin: 07/12/22 09:33 Dose: 15 mg Documented By: YAMILET Buspirone HCl (Buspirone Hcl 5 Mg Tablet) 15 mg PO DAILY PRN PRN Reason: anxiety Cariprazine (Cariprazine Hcl 3 Mg Capsule) 3 mg PO DAILY [facility] Last Admin: 07/12/22 09:33 Dose: 3 mg Documented By: YAMILET Clonidine HCl (Clonidine Hcl 0.1 Mg Tablet) 0.1 mg PO DAILY [facility]; Protocol Last Admin: 07/12/22 09:34 Dose: 0.1 mg Documented By: YAMILET Docusate Sodium (Docusate Sodium 100 Mg Capsule) 100 mg PO DAILY PRN PRN Reason: Constipation Enoxaparin Sodium (Enoxaparin Sodium 40 Mg/0.4 Ml Syringe) 40 mg SUBCUT Q24H [facility] Last Admin: 07/12/22 00:19 Dose: 40 mg Documented By: MAVERICK Gabapentin (Gabapentin 400 Mg Capsule) 800 mg PO TID [facility] Last Admin: 07/12/22 09:33 Dose: 800 mg Documented By: YAMILET Hydromorphone HCl (Hydromorphone Hcl 1 Mg/Ml Syringe) 1 mg IVPUSH Q4H PRN; Protocol PRN Reason: Pain, Severe (Pain Scale 7-10) Last Admin: 07/12/22 11:05 Dose: 1 mg Documented By: YAMILET Piperacillin Sod/Tazobactam (Sod 3.375 gm/ Sodium Chloride) 50 mls @ 100 mls/hr IV Q6H [facility] Last Admin: 07/12/22 11:09 Dose: 100 mls/hr Documented By: YAMILET Vancomycin HCl 1,250 mg/ (Sodium Chloride) 250 mls @ 166.667 mls/hr IV Q8H [facility] Last Infusion: 07/12/22 05:22 Dose: 0 mls/hr Documented By: MAVERICK Methadone HCl (Methadone Hcl 20 Mg/2 Ml Oral.Conc) 50 mg PO DAILY [facility] Last Admin: 07/12/22 09:33 Dose: 50 mg Documented By: YAMILET Nicotine (Nicotine 21 Mg Patch.Td24) 21 mg TRANSDERMA DAILY [facility] Last Admin: 07/12/22 09:34 Dose: 21 mg Documented By: YAMILET Nicotine Polacrilex (Nicotine Polacrilex 2 Mg Gum) 2 mg BUCCAL Q2H PRN PRN Reason: Nicotine Cravings Ondansetron HCl (Ondansetron Hcl 4 Mg/2 Ml Vial) 4 mg IVPUSH Q8H PRN PRN Reason: Nausea and Vomiting Ondansetron HCl (Ondansetron Hcl 4 Mg/2 Ml Vial) 4 mg IVPUSH ONCE PRN PRN Reason: Nausea and Vomiting Oxycodone HCl (Oxycodone Hcl Immed Release 5 Mg Tablet) 10 mg PO ONCE PRN PRN Reason: Pain, Severe (Pain Scale 7-10) Oxycodone HCl (Oxycodone Hcl Immed Release 5 Mg Tablet) 5 mg PO Q6H PRN PRN Reason: Pain, Moderate (Pain Scale 4-6 Pharmacy Consult (Consult Rx Perform Med Rec) 1 each MISCELLANE ONCE PRN PRN Reason: Consult order Pharmacy Consult (Consult Rx Vancomycin Dosing) 1 each MISCELLANE DAILY PRN PRN Reason: Consult order Prazosin HCl (Prazosin Hcl 1 Mg Capsule) 2 mg PO BEDTIME [facility]; Protocol Last Admin: 07/11/22 21:00 Dose: 2 mg Documented By: MAVERICK Quetiapine Fumarate (Quetiapine Fumarate 300 Mg Tablet) 300 mg PO BEDTIME [facility] Last Admin: 07/11/22 21:03 Dose: 300 mg Documented By: MAVERICK Sodium Chloride (0.9 % Sodium Chloride Flush 3 Ml Syringe) 3 ml IVFLUSH QSHIFT [facility] Last Admin: 07/12/22 09:39 Dose: 3 ml Documented By: YAMILET Labs CBC & Chem 7: 07/12/22 06:26 07/12/22 06:26 Labs: Laboratory Results - last 24 hr 07/12/22 07/12/22 07/12/22 06:26 06:26 09:59 MCV 84.7 MCH 27.2 MCHC 32.1 RDW 13.5 Plt Count 282 D MPV 9.1 L Absolute Nucleated RBC 0.000 Nucleated RBC % (auto) 0.0 Anion Gap 15 Estim Creat Clear Calc 128.8 Estimated GFR > 60 Random Glucose 166 H D Calcium 8.6 Vancomycin Trough 12.2 Microbiology Microbiology Results: Microbiology 07/10/22 11:05 Gram Stain - Final Ankle Aspirate - Aspirate Anaerobic Culture - Preliminary Culture in progress. Gross Specimen Examination - Final Fluid Crystals - Final Joint Fluid Culture - Preliminary Streptococcus pyogenes (Grp A) 07/09/22 21:18 Blood Culture - Final Blood - Venous Streptococcus pyogenes (Grp A) 07/09/22 20:41 Blood Culture - Final Blood - Venous Streptococcus pyogenes (Grp A) Assessment and Plan (1) Septic arthritis of right ankle: Status: Acute (2) Streptococcal bacteremia: Status: Acute Plan 36-year-old male with past medical history of IV drug use presents to the hospital with right ankle pain, and various symptoms including fever, chills, nausea, poor oral intake found to have sepsis Sepsis secondary to septic arthritis of right ankle s/p joint aspiration by ortho - aspirate growing strep pyogenes s/p I&D in OR 07/11 increase in leukocytosis likely reactive from surgery - will change to IV ceftriaxone - infectious disease consulted - ortho following Strep pyogenes bacteremia Likely secondary to septic arthritis echo done 07/11 negative for vegetation -will transition from Vanc/zosyn to IV ceftraixone -repeat blood cultures pending -ID consult pending pleuritic chest pain CT angiogram poor study; V/Q negative for PE trop negative ekg with some twave inversions - appears on previous EKG, but more prominent on repeat -cardiology consult pending acute hyponatremia Resolved suicidal ideation psychiatry consulted - meets criteria for inpatient psych at this time, will need Care Team Eval when medically cleared for now continue 1:1 sitter for safety -was started on seroquel, buspirone and on vraylar at baseline - will discuss with psych as QT increasing, still under 500 at this time OUD Addiction medicine following, has been started on methadone QTC increasing - will discuss with psych about possible med adjustment hypomagnesemia improved with replacement - follow Mag level depression, ADHD - continue home medications Tobacco dependence smoking cessation advised -NRT DVT prophylaxis: Sonia attending - dr. ohara Patient requires ongoing inpatient hospitalization for management of bacterem ia/septic joint Quality Stroke Does the patient have a stroke diagnosis?: No VTE Prior VTE?: No VTE Risk Level:: Medical - moderate - high VTE Device Contraindication: Treatment Not Indicated VTE Drug Contraindication: N/A - Med Ordered
--- NOTE | 2022-07-12 12:42 | PM.EVENT ---
Event Note Date of Service: 07/12/22 Event Note: No drainage in the bulb. Incision site is clean, dry, and intact. No drainage. Able to move all digits. Drain pulled at bedside. Patient tolerated the procedure well. Incision site dressed. Alfred wrap applied. Splint applied to assist with immobilization. Encouraged to come out of the splint to work on ankle ROM.
[2022-07-12] MEDS: cefTRIAXone sodium 2 GM in 0.9 % Sodium Chloride 50 ML IV (13:17)
--- NOTE | 2022-07-12 13:39 | MHC.RECOVRN ---
This ticket writer met w/ pt, pt alert, laying in bed. Pt reports is feeling withdrawal symptoms, runny nose, cold/hot sweats, restless legs. Will f/u w/ Provider.
[2022-07-12] MEDS: Magnesium Sulfate/H2O 2 GM/50 ML PIGGYBACK IV (13:56)
--- NOTE | 2022-07-12 14:04 | HO.POSTANES ---
Post Anesthesia Evaluation Post Anesthesia Evaluation Vital Signs: Vital Signs Temp Pulse Resp BP Pulse Ox O2 Del Method 07/12/22 12:00 99.4 F 95 18 131/69 99 Room Air 07/12/22 11:05 22 H 07/12/22 07:58 99.2 F 72 18 125/71 98 Room Air 07/12/22 02:46 20 Anesthesia: General Mental Status: Awake Pain Control: Satisfactory Nausea/Vomiting: None Hydration: Adequate Anesthesia-Related Issues: No Anes. Related Issues
[2022-07-12] MEDS: methADONE HCl 20 MG/2 ML ORAL.CONC 5 MG PO (15:50)
--- NOTE | 2022-07-12 16:53 | ECG_ITS ---
Test Reason : check qtc Blood Pressure : / mmHG Vent. Rate : 062 BPM Atrial Rate : 069 BPM P-R Int : 136 ms QRS Dur : 092 ms QT Int : 422 ms P-R-T Axes : 000 002 005 degrees QTc Int : 428 ms Sinus rhythm with marked sinus arrhythmia Minimal voltage criteria for LVH, may be normal variant ( R in aVL ) T wave abnormality, consider anterior ischemia Abnormal ECG When compared with ECG of 12-JUL-2022 10:41, Sinus Arrhythmia is new Referred By: Pamela Das Electronically Signed By:LEODAN GANN MD
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
[2022-07-12] MEDS: Prazosin HCL 1 MG CAPSULE 2 MG PO (20:28)
[2022-07-12] MEDS: oxyCODONE HCl Immed Release 5 MG TABLET PO (22:49)
[2022-07-13] VITALS (9 sets, daily range): BP systolic 116–138; BP diastolic 64–80; PULSE 63–93; RESP 12–20; TEMP 36.3–37.1; O2SAT 94–100
[2022-07-13] MEDS: Enoxaparin Sodium 40 MG/0.4 ML SYRINGE SUBCUT (01:01)
[2022-07-13] MEDS: HYDROmorphone HCl 1 MG/ML SYRINGE IVPUSH ×3 (01:02→17:37)
[2022-07-13 07:13] LABS: Hematocrit 32.9 % (42.0-52.0); Hemoglobin 10.2 g/dl (14.0-18.0); Mean Corpuscular Hemoglobin 26.8 pg (27.0-33.0); Mean Corpuscular Volume 86.4 fL (80.0-98.0); Mean Platelet Volume 11.6 fL (9.4-12.4); Platelet Count 138 X10*3/uL (160-400); Red Blood Count 3.81 X10*6/uL (4.60-5.80); Red Cell Distribution Width 13.9 % (11.0-16.0); White Blood Count 8.5 X10*3/uL (4.8-10.8)
[2022-07-13 08:23] LABS: Anion Gap 15 (12-20); Blood Urea Nitrogen 15 mg/dL (9-16); Calcium 8.7 mg/dL (8.4-10.2); Carbon Dioxide 23 mmol/L (22-29); Chloride 107 mmol/L (96-108); Estimated Glomerular Filt Rate > 60; Glucose Random 82 mg/dL (60-115); Sodium 141 mmol/L (135-145)
--- NOTE | 2022-07-13 08:44 | ECG_ITS ---
Test Reason : check qtc Blood Pressure : / mmHG Vent. Rate : 071 BPM Atrial Rate : 071 BPM P-R Int : 136 ms QRS Dur : 084 ms QT Int : 386 ms P-R-T Axes : 087 056 055 degrees QTc Int : 419 ms Normal sinus rhythm ST & T wave abnormality, consider anterior ischemia Abnormal ECG When compared with ECG of 12-JUL-2022 17:15, Nonspecific T wave abnormality no longer evident in Inferior leads Referred By: Pamela Das Electronically Signed By:LEODAN GANN MD
[2022-07-13 08:46] LABS: Potassium 4.4 mmol/L (3.3-5.1)
[2022-07-13 09:05] LABS: Magnesium 1.6 mg/dL (1.6-2.6)
[2022-07-13] MEDS: Gabapentin 400 MG CAPSULE 800 MG PO ×3 (10:07→21:00)
[2022-07-13] MEDS: cloNIDine HCL 0.1 MG TABLET PO (10:07)
[2022-07-13] MEDS: methADONE HCl 20 MG/2 ML ORAL.CONC 50 MG PO (10:07)
[2022-07-13] MEDS: Nicotine 21 MG PATCH.TD24 TRANSDERMA (10:08)
[2022-07-13] MEDS: busPIRone HCl 5 MG TABLET 15 MG PO ×2 (10:08→21:03)
[2022-07-13] MEDS: 0.9 % Sodium Chloride Flush 3 ML SYRINGE IVFLUSH ×3 (10:09→21:04)
[2022-07-13 10:44] LABS: Vancomycin Random < 3.0 mcg/mL (15-20)
[2022-07-13] MEDS: cefTRIAXone sodium 2 GM in 0.9 % Sodium Chloride 50 ML IV (12:05)
[2022-07-13] MEDS: oxyCODONE HCl Immed Release 5 MG TABLET PO (12:10)
--- NOTE | 2022-07-13 15:27 | PM.CNCAR ---
History of Present Illness History of Present Illness Date of Service: 07/13/22 Requesting physician: Pamela Das Chief complaint: Sepsis, IVDU, ECG changes. Narrative: 36-year-old gentleman with polysubstance abuse presenting with septic arthritis of the right ankle. He is positive for multiple drugs including cocaine. He has no chest pain or shortness of breath. Previously his EKG had nonspecific T-wave changes. EKG on this admission showing precordial T-wave inversions. He underwent echocardiography did not show any wall motion abnormalities. He is not giving any clinical story consistent with ischemia. He was started on methadone which led to QT prolongation. So far he is completely asymptomatic with these ECG changes. [facility] Past Medical History Medical History (Updated 07/13/22 @ 18:05 by Kashmir Dennis MD) Abrasion of face ADHD DVT (deep venous thrombosis) Endocarditis Eye contusion Head injury Hepatitis C Heroin overdose IV drug abuse Left upper extremity deep vein thrombosis Mood disorder Multiple abrasions Opiate abuse, continuous Pulmonary emboli Severe sepsis Suicide attempt Surgical History Surgical History History of left knee surgery Hx of eye surgery S/P left knee arthroscopy Social History Social History Household Members: None Housing: Other Housing Other:: hotel everyday Do you presently have visiting nurse or other home services: No Alcohol intake: never Patient Tobacco Use Status: Current everyday Tobacco user Tobacco use type: Cigarette Cigarette Packs Per Day: 1 Cigarettes Per Day: 30 Years Smoked: 15 e-Cigarette/Vaping Use: Never Used Second Hand Smoke Exposure: No Substance Use Type: Crack/Cocaine and IV Drugs service: No Current occupational status: unemployed Sexual orientation: Straight/Heterosexual Meds Allergies Allergy/AdvReac Type Severity Reaction Status Date / Time haloperidol [From HALDOL] AdvReac Intermediate LOCK JAW Verified 07/11/22 11:54 olanzapine [From ZYPREXA] AdvReac Unknown PT REPORTS Verified 07/11/22 11:54 FEELS LIKE I AM ON AN ACID TRIP Active Medications: Current Medications Acetaminophen (Acetaminophen 325 Mg Tablet) 650 mg PO Q6H PRN PRN Reason: Pain, Mild (Pain Scale 1-3) Last Admin: 07/11/22 06:53 Dose: 650 mg Albuterol Sulfate (Albuterol Sulfate 90 Mcg 8 Gm Inhaler) 2 puff INHALE Q4H PRN PRN Reason: Respiratory Distress Amphetamine/Dextroamphetamine (Amphetamine Mixed Salts 10 Mg Tablet) 30 mg PO BID@0800,1400 [facility] Last Admin: 07/13/22 10:15 Dose: Not Given Buspirone HCl (Buspirone Hcl 5 Mg Tablet) 15 mg PO BID [facility] Last Admin: 07/13/22 10:08 Dose: 15 mg Buspirone HCl (Buspirone Hcl 5 Mg Tablet) 15 mg PO DAILY PRN PRN Reason: anxiety Clonidine HCl (Clonidine Hcl 0.1 Mg Tablet) 0.1 mg PO DAILY [facility]; Protocol Last Admin: 07/13/22 10:07 Dose: 0.1 mg Docusate Sodium (Docusate Sodium 100 Mg Capsule) 100 mg PO DAILY PRN PRN Reason: Constipation Enoxaparin Sodium (Enoxaparin Sodium 40 Mg/0.4 Ml Syringe) 40 mg SUBCUT Q24H [facility] Last Admin: 07/13/22 01:01 Dose: 40 mg Gabapentin (Gabapentin 400 Mg Capsule) 800 mg PO TID [facility] Last Admin: 07/13/22 10:07 Dose: 800 mg Hydromorphone HCl (Hydromorphone Hcl 1 Mg/Ml Syringe) 1 mg IVPUSH Q4H PRN; Protocol PRN Reason: Pain, Severe (Pain Scale 7-10) Last Admin: 07/13/22 10:06 Dose: 1 mg Ceftriaxone Sodium 2 gm/ (Sodium Chloride) 50 mls @ 100 mls/hr IV Q24H [facility] Last Infusion: 07/13/22 13:34 Dose: Infused Methadone HCl (Methadone Hcl 20 Mg/2 Ml Oral.Conc) 50 mg PO DAILY [facility] Last Admin: 07/13/22 10:07 Dose: 50 mg Nicotine (Nicotine 21 Mg Patch.Td24) 21 mg TRANSDERMA DAILY [facility] Last Admin: 07/13/22 10:08 Dose: 21 mg Nicotine Polacrilex (Nicotine Polacrilex 2 Mg Gum) 2 mg BUCCAL Q2H PRN PRN Reason: Nicotine Cravings Ondansetron HCl (Ondansetron Hcl 4 Mg/2 Ml Vial) 4 mg IVPUSH Q8H PRN PRN Reason: Nausea and Vomiting Ondansetron HCl (Ondansetron Hcl 4 Mg/2 Ml Vial) 4 mg IVPUSH ONCE PRN PRN Reason: Nausea and Vomiting Oxycodone HCl (Oxycodone Hcl Immed Release 5 Mg Tablet) 10 mg PO ONCE PRN PRN Reason: Pain, Severe (Pain Scale 7-10) Oxycodone HCl (Oxycodone Hcl Immed Release 5 Mg Tablet) 10 mg PO Q6H PRN PRN Reason: Pain, Moderate (Pain Scale 4-6 Pharmacy Consult (Consult Rx Perform Med Rec) 1 each MISCELLANE ONCE PRN PRN Reason: Consult order Pharmacy Consult (Consult Rx Vancomycin Dosing) 1 each MISCELLANE DAILY PRN PRN Reason: Consult order Prazosin HCl (Prazosin Hcl 1 Mg Capsule) 2 mg PO BEDTIME [facility]; Protocol Last Admin: 07/12/22 20:28 Dose: 2 mg Quetiapine Fumarate (Quetiapine Fumarate 300 Mg Tablet) 300 mg PO BEDTIME [facility] Last Admin: 07/11/22 21:03 Dose: 300 mg Sodium Chloride (0.9 % Sodium Chloride Flush 3 Ml Syringe) 3 ml IVFLUSH QSHIFT [facility] Last Admin: 07/13/22 10:09 Dose: 3 ml Home Medications Medication Instructions Recorded Confirmed Last Taken Type albuterol sulfate 90 mcg/actuation 2 puff inhalation Q4H PRN 11/13/21 07/09/22 Unknown History aerosol inhaler Respiratory Distress prazosin 1 mg capsule 2 mg PO BEDTIME 11/13/21 07/09/22 Unknown History cariprazine 3 mg capsule (Vraylar) 3 mg PO DAILY 07/09/22 07/09/22 Unknown History clonidine HCl 0.1 mg tablet 0.1 mg PO DAILY 07/09/22 07/09/22 Unknown History dextroamphetamine-amphetamine 30 1 tab PO BID 07/09/22 07/09/22 Unknown History mg tablet gabapentin 800 mg tablet 800 mg PO TID 07/09/22 07/09/22 Unknown History Physical Exam Vital Signs: Vital Signs: Last Vital Signs Temp 97.4 F 07/13/22 15:03 Pulse 93 07/13/22 15:03 Resp 18 07/13/22 15:03 BP 123/78 07/13/22 15:03 Pulse Ox 100 07/13/22 15:03 O2 Del Method 07/13/22 15:03 O2 Flow Rate 2 07/11/22 14:24 BMI result Body Mass Index 21.1 GENERAL APPEARANCE: in no acute distress, pleasant. NECK: no carotid bruit, no jugular venous distention. SKIN: no suspicious lesions, warm and dry. HEART: no murmurs, regular rate and rhythm. LUNGS: clear to auscultation bilaterally. ABDOMEN: soft, nontender. EXTREMITIES: no edema. Ankle in crepe bandage. PERIPHERAL PULSES: equal. NEUROLOGIC: No gross deficits, AAO X 3 Objective Labs and Meds Result diagrams: 07/13/22 06:54 07/13/22 06:54 Lab results: Laboratory Results - last 24 hr 07/13/22 07/13/22 07/13/22 06:54 06:54 10:08 WBC 8.5 RBC 3.81 L Hgb 10.2 L Hct 32.9 L MCV 86.4 MCH 26.8 L MCHC 31.0 RDW 13.9 Plt Count 138 L D MPV 11.6 Absolute Nucleated RBC 0.000 Nucleated RBC % (auto) 0.0 Sodium 141 Potassium 4.4 D Chloride 107 Carbon Dioxide 23 Anion Gap 15 BUN 15 Creatinine 0.60 Estim Creat Clear Calc 146.0 Estimated GFR > 60 Random Glucose 82 D Calcium 8.7 Magnesium 1.6 Random Vancomycin < 3.0 L Assessment and Plan (1) Anterior T wave inversion: Status: Acute Plan [age] year gentleman with anterior T-wave inversions. He has no chest discomfort shortness of breath. Differential include ischemia which is very unlikely. Pulmonary embolism has been ruled out. I do not think the changes are consistent with ARVD. I think these changes have evolved slowly over long time because his T-waves were abnormal even on previous EKGs. I think currently does not need any further workup for this. If he has any chest discomfort shortness of breath then we will do further workup. Monitor QT interval closely specially if he is going to receive medications like Seroquel. Monitor electrolytes closely 2. Thank you for allowing me to participate in the care of your patient. Please feel free to contact me if you have any questions. Procedures Date of Service Date of Service: 07/13/22
--- NOTE | 2022-07-13 16:01 | P.PNIM_ITS ---
Subjective Subjective Date of Service: 07/13/22 Interval History: Seen and examined this morning Follow-up for bacteremia, right ankle septic arthritis Still complaining of constant throbbing pain at right ankle. No fever, no chills Review of Systems Review of Systems: Yes all other systems are reviewed and are negative Constitutional Constitutional: Denies chills and Denies fever(s) Cardiovascular Cardiovascular: Denies chest pain, Denies palpitations and Denies dyspnea Respiratory Respiratory: Denies cough and Denies dyspnea Endocrine Endocrine: Denies palpitations Physical Exam Vital Signs: Vital Signs: Last Vital Signs Temp 97.4 F 07/13/22 15:03 Pulse 93 07/13/22 15:03 Resp 18 07/13/22 15:03 BP 123/78 07/13/22 15:03 Pulse Ox 100 07/13/22 15:03 O2 Del Method 07/13/22 15:03 O2 Flow Rate 2 07/11/22 14:24 BMI result Body Mass Index 21.1 Const: General: alert and awake Nutritional Appearance: thin Orientation/consciousness: patient oriented x3 Resp: Effort & Inspection: normal respiratory effort and able to speak in c omplete sentences Cardio: Rate: regular rate Heart sounds: S1 normal heart sound present and S2 normal heart sound present GI: Inspection: No distended Palpation (GI): Soft to palpation Skin: Other: right ankle erythema, swelling, tenderness to palpation; decreased ROM at ankle joint Neuro: General: patient oriented x3 and CN's II-XI intact bilaterally Extrem: Other: right foot/leg splinted; LEAH drain with no output Objective Data Active Medications Acetaminophen (Acetaminophen 325 Mg Tablet) 650 mg PO Q6H PRN PRN Reason: Pain, Mild (Pain Scale 1-3) Last Admin: 07/11/22 06:53 Dose: 650 mg Documented By: MAVERICK Albuterol Sulfate (Albuterol Sulfate 90 Mcg 8 Gm Inhaler) 2 puff INHALE Q4H PRN PRN Reason: Respiratory Distress Amphetamine/Dextroamphetamine (Amphetamine Mixed Salts 10 Mg Tablet) 30 mg PO BID@0800,1400 [facility] Last Admin: 07/13/22 10:15 Dose: Not Given Documented By: JENNIFER Non-Admin Reason: Patient Refused Buspirone HCl (Buspirone Hcl 5 Mg Tablet) 15 mg PO BID [facility] Last Admin: 07/13/22 10:08 Dose: 15 mg Documented By: JENNIFER Buspirone HCl (Buspirone Hcl 5 Mg Tablet) 15 mg PO DAILY PRN PRN Reason: anxiety Clonidine HCl (Clonidine Hcl 0.1 Mg Tablet) 0.1 mg PO DAILY [facility]; Protocol Last Admin: 07/13/22 10:07 Dose: 0.1 mg Documented By: JENNIFER Docusate Sodium (Docusate Sodium 100 Mg Capsule) 100 mg PO DAILY PRN PRN Reason: Constipation Enoxaparin Sodium (Enoxaparin Sodium 40 Mg/0.4 Ml Syringe) 40 mg SUBCUT Q24H [facility] Last Admin: 07/13/22 01:01 Dose: 40 mg Documented By: SILVINA Gabapentin (Gabapentin 400 Mg Capsule) 800 mg PO TID [facility] Last Admin: 07/13/22 10:07 Dose: 800 mg Documented By: JENNIFER Hydromorphone HCl (Hydromorphone Hcl 1 Mg/Ml Syringe) 1 mg IVPUSH Q4H PRN; Protocol PRN Reason: Pain, Severe (Pain Scale 7-10) Last Admin: 07/13/22 10:06 Dose: 1 mg Documented By: JENNIFER Ceftriaxone Sodium 2 gm/ (Sodium Chloride) 50 mls @ 100 mls/hr IV Q24H [facility] Last Infusion: 07/13/22 13:34 Dose: 0 mls/hr Documented By: JENNIFER Methadone HCl (Methadone Hcl 20 Mg/2 Ml Oral.Conc) 50 mg PO DAILY [facility] Last Admin: 07/13/22 10:07 Dose: 50 mg Documented By: JENNIFER Nicotine (Nicotine 21 Mg Patch.Td24) 21 mg TRANSDERMA DAILY [facility] Last Admin: 07/13/22 10:08 Dose: 21 mg Documented By: EJNNIFER Nicotine Polacrilex (Nicotine Polacrilex 2 Mg Gum) 2 mg BUCCAL Q2H PRN PRN Reason: Nicotine Cravings Ondansetron HCl (Ondansetron Hcl 4 Mg/2 Ml Vial) 4 mg IVPUSH Q8H PRN PRN Reason: Nausea and Vomiting Ondansetron HCl (Ondansetron Hcl 4 Mg/2 Ml Vial) 4 mg IVPUSH ONCE PRN PRN Reason: Nausea and Vomiting Oxycodone HCl (Oxycodone Hcl Immed Release 5 Mg Tablet) 10 mg PO ONCE PRN PRN Reason: Pain, Severe (Pain Scale 7-10) Oxycodone HCl (Oxycodone Hcl Immed Release 5 Mg Tablet) 10 mg PO Q6H PRN PRN Reason: Pain, Moderate (Pain Scale 4-6 Pharmacy Consult (Consult Rx Perform Med Rec) 1 each MISCELLANE ONCE PRN PRN Reason: Consult order Pharmacy Consult (Consult Rx Vancomycin Dosing) 1 each MISCELLANE DAILY PRN PRN Reason: Consult order Prazosin HCl (Prazosin Hcl 1 Mg Capsule) 2 mg PO BEDTIME [facility]; Protocol Last Admin: 07/12/22 20:28 Dose: 2 mg Documented By: SILVINA Quetiapine Fumarate (Quetiapine Fumarate 300 Mg Tablet) 300 mg PO BEDTIME [facility] Last Admin: 07/11/22 21:03 Dose: 300 mg Documented By: MAVERICK Sodium Chloride (0.9 % Sodium Chloride Flush 3 Ml Syringe) 3 ml IVFLUSH QSHIFT [facility] Last Admin: 07/13/22 10:09 Dose: 3 ml Documented By: JENNIFER Labs CBC & Chem 7: 07/13/22 06:54 07/13/22 06:54 Labs: Laboratory Results - last 24 hr 07/13/22 07/13/22 07/13/22 06:54 06:54 10:08 MCV 86.4 MCH 26.8 L MCHC 31.0 RDW 13.9 Plt Count 138 L D MPV 11.6 Absolute Nucleated RBC 0.000 Nucleated RBC % (auto) 0.0 Anion Gap 15 Estim Creat Clear Calc 146.0 Estimated GFR > 60 Random Glucose 82 D Calcium 8.7 Magnesium 1.6 Random Vancomycin < 3.0 L Microbiology Microbiology Results: Microbiology 07/11/22 09:22 Blood Culture - Preliminary Blood - Venous No growth after 48 hours. 07/11/22 09:15 Blood Culture - Preliminary Blood - Venous No growth after 48 hours. 07/10/22 11:05 Gram Stain - Final Ankle Aspirate - Aspirate Anaerobic Culture - Preliminary Culture in progress. Gross Specimen Examination - Final Fluid Crystals - Final Joint Fluid Culture - Final Streptococcus pyogenes (Grp A) Assessment and Plan (1) Septic arthritis of right ankle: Status: Acute (2) Streptococcal bacteremia: Status: Acute Plan 36-year-old male with past medical history of IV drug use presents to the hospital with right ankle pain, and various symptoms including fever, chills, nausea, poor oral intake found to have sepsis Sepsis secondary to septic arthritis of right ankle s/p joint aspiration by ortho - aspirate growing strep pyogenes s/p I&D in [place] 07/11 Leukocytosis resolved - continue IV ceftriaxone - infectious disease consulted - ortho following Strep pyogenes bacteremia Likely secondary to septic arthritis echo done 07/11 negative for vegetation -will transition from Vanc/zosyn to IV ceftraixone -repeat blood cultures negative -ID consult pending pleuritic chest pain CT angiogram poor study; V/Q negative for PE trop negative ekg with some twave inversions - appears on previous EKG, but more prominent on repeat -seen by Cardiology, recommends daily EKGs to monitor QTC but no further workup indicated acute hyponatremia Resolved suicidal ideation psychiatry consulted - will need Care Team Eval when medically cleared for now continue 1:1 sitter for safety -christine d/c per psych OUD Addiction medicine following, has been started on methadone repeat EKG shows Qtc under 500 hypomagnesemia improved with replacement - follow Mag level depression, ADHD - continue home medications Tobacco dependence smoking cessation advised -NRT DVT prophylaxis: Sonia attending - dr. Kramer Patient requires ongoing inpatient hospitalization for management of bacteremia/septic joint Quality Stroke Does the patient have a stroke diagnosis?: No VTE Prior VTE?: No VTE Risk Level:: Medical - moderate - high VTE Device Contraindication: Treatment Not Indicated VTE Drug Contraindication: N/A - Med Ordered
--- NOTE | 2022-07-13 16:33 | MHC.RECOVSUP ---
Recovery Support note: This automobile and property underwriter met with patient to discuss withdrawal symptoms. Patient was sleeping but woke easily. Patient reported a poor night sleep and that he is trying to rest and that he feels pretty shitty in regards to withdrawal symptoms. Patient appeared sweaty and congested. Updated Denise COUCH.
[2022-07-13] MEDS: Amphetamine Mixed Salts 10 MG TABLET 30 MG PO (17:38)
[2022-07-13] MEDS: Prazosin HCL 1 MG CAPSULE 2 MG PO (21:00)
[2022-07-13] MEDS: QUEtiapine Fumarate 300 MG TABLET PO (21:03)
[2022-07-13] MEDS: oxyCODONE HCl Immed Release 5 MG TABLET 10 MG PO (21:03)
[2022-07-14] MEDS: Enoxaparin Sodium 40 MG/0.4 ML SYRINGE SUBCUT (01:51)
[2022-07-14 02:57] VITALS: BP 116/57; PULSE 97; RESP 18; TEMP 36.8; O2SAT 97
[2022-07-14] MEDS: HYDROmorphone HCl 1 MG/ML SYRINGE IVPUSH ×4 (02:59→22:29)
--- NOTE | 2022-07-14 07:00 | ECG_ITS ---
Test Reason : QTC Blood Pressure : / mmHG Vent. Rate : 086 BPM Atrial Rate : 086 BPM P-R Int : 132 ms QRS Dur : 074 ms QT Int : 334 ms P-R-T Axes : -21 003 010 degrees QTc Int : 399 ms Normal sinus rhythm Minimal voltage criteria for LVH, may be normal variant ( R in aVL ) Nonspecific T wave abnormality Abnormal ECG Nonspecific T wave abnormality now evident in Inferior leads T wave inversion no longer evident in Anterior leads Referred By: Pamela Das Electronically Signed By:LEODAN GANN MD
[2022-07-14 07:23] LABS: Hematocrit 36.3 % (42.0-52.0); Hemoglobin 11.4 g/dl (14.0-18.0); Mean Corpuscular HGB Conc 31.4 g/dl (31.0-36.0); Mean Corpuscular Hemoglobin 26.6 pg (27.0-33.0); Mean Corpuscular Volume 84.6 fL (80.0-98.0); Mean Platelet Volume 8.5 fL (9.4-12.4); Platelet Count 366 X10*3/uL (160-400); Red Blood Count 4.29 X10*6/uL (4.60-5.80); Red Cell Distribution Width 13.9 % (11.0-16.0); White Blood Count 8.1 X10*3/uL (4.8-10.8)
[2022-07-14 07:31] VITALS: BP 120/62; PULSE 86; RESP 20; O2SAT 97
[2022-07-14 07:42] LABS: Anion Gap 16 (12-20); Blood Urea Nitrogen 16 mg/dL (9-16); Carbon Dioxide 25 mmol/L (22-29); Chloride 102 mmol/L (96-108); Creatinine Clr Calc Pharmacy 132.7; Estimated Glomerular Filt Rate > 60; Glucose Random 79 mg/dL (60-115); Potassium 4.4 mmol/L (3.3-5.1); Sodium 139 mmol/L (135-145)
[2022-07-14] MEDS: oxyCODONE HCl Immed Release 5 MG TABLET 10 MG PO ×2 (09:28→16:13)
[2022-07-14] MEDS: methADONE HCl 20 MG/2 ML ORAL.CONC 50 MG PO (09:29)
[2022-07-14] MEDS: Amphetamine Mixed Salts 10 MG TABLET 30 MG PO ×2 (09:30→15:04)
[2022-07-14] MEDS: 0.9 % Sodium Chloride Flush 3 ML SYRINGE IVFLUSH ×3 (09:30→20:54)
[2022-07-14] MEDS: busPIRone HCl 5 MG TABLET 15 MG PO ×2 (09:30→20:54)
[2022-07-14] MEDS: Nicotine 21 MG PATCH.TD24 TRANSDERMA (09:31)
[2022-07-14] MEDS: cloNIDine HCL 0.1 MG TABLET PO (09:31)
[2022-07-14] MEDS: Gabapentin 400 MG CAPSULE 800 MG PO ×3 (09:31→20:53)
[2022-07-14 10:44] VITALS: BP 127/66; PULSE 98; RESP 20; TEMP 36.6; O2SAT 98
--- NOTE | 2022-07-14 11:15 | HO.PM.IMPN ---
Subjective Subjective Date of Service: 07/14/22 Interval History: seen and examined this morning follow up for bacteremia, right ankle septic arthritis having right ankle pain no fever, no chills Review of Systems Review of Systems: Yes all other systems are reviewed and are negative Constitutional Constitutional: Denies chills and Denies fever(s) Cardiovascular Cardiovascular: Denies chest pain, Denies palpitations and Denies dyspnea Respiratory Respiratory: Denies cough and Denies dyspnea Gastrointestinal Gastrointestinal: Denies abdominal pain, Denies nausea and Denies vomiting Endocrine Endocrine: Denies palpitations Physical Exam Vital Signs: Vital Signs: Last Vital Signs Temp 97.9 F 07/14/22 10:44 Pulse 98 07/14/22 10:44 Resp 20 07/14/22 10:44 BP 127/66 07/14/22 10:44 Pulse Ox 98 07/14/22 10:44 O2 Del Method 07/14/22 10:44 O2 Flow Rate 2 07/11/22 14:24 BMI result Body Mass Index 21.1 Const: General: alert and awake Nutritional Appearance: thin Orientation/consciousness: patient oriented x3 Resp: Effort & Inspection: normal respiratory effort and able to speak in complete sentences Auscultation: clear to auscultation bilaterally Cardio: Rate: regular rate Heart sounds: S1 normal heart sound present and S2 normal heart sound present GI: Inspection: No distended Palpation (GI): Soft to palpation and nontender Neuro: General: patient oriented x3 and CN's II-XI intact bilaterally Extrem: Other: right foot/leg splinted; LEAH drain removed; toes warm/well purfused Objective Data Active Medications Acetaminophen (Acetaminophen 325 Mg Tablet) 650 mg PO Q6H PRN PRN Reason: Pain, Mild (Pain Scale 1-3) Last Admin: 07/11/22 06:53 Dose: 650 mg Documented By: MAVERICK Albuterol Sulfate (Albuterol Sulfate 90 Mcg 8 Gm Inhaler) 2 puff INHALE Q4H PRN PRN Reason: Respiratory Distress Amphetamine/Dextroamphetamine (Amphetamine Mixed Salts 10 Mg Tablet) 30 mg PO BID@0800,1400 [facility] Last Admin: 07/14/22 09:30 Dose: 30 mg Documented By: GEETA Buspirone HCl (Buspirone Hcl 5 Mg Tablet) 15 mg PO BID [facility] Last Admin: 07/14/22 09:30 Dose: 15 mg Documented By: GEETA Buspirone HCl (Buspirone Hcl 5 Mg Tablet) 15 mg PO DAILY PRN PRN Reason: anxiety Clonidine HCl (Clonidine Hcl 0.1 Mg Tablet) 0.1 mg PO DAILY [facility]; Protocol Last Admin: 07/14/22 09:31 Dose: 0.1 mg Documented By: GEETA Docusate Sodium (Docusate Sodium 100 Mg Capsule) 100 mg PO DAILY PRN PRN Reason: Constipation Enoxaparin Sodium (Enoxaparin Sodium 40 Mg/0.4 Ml Syringe) 40 mg SUBCUT Q24H [facility] Last Admin: 07/14/22 01:51 Dose: 40 mg Documented By: SILVINA Gabapentin (Gabapentin 400 Mg Capsule) 800 mg PO TID [facility] Last Admin: 07/14/22 09:31 Dose: 800 mg Documented By: GEETA Hydromorphone HCl (Hydromorphone Hcl 1 Mg/Ml Syringe) 1 mg IVPUSH Q4H PRN; Protocol PRN Reason: Pain, Severe (Pain Scale 7-10) Last Admin: 07/14/22 09:29 Dose: 1 mg Documented By: GEETA Ceftriaxone Sodium 2 gm/ (Sodium Chloride) 50 mls @ 100 mls/hr IV Q24H [facility] Last Infusion: 07/13/22 13:34 Dose: 0 mls/hr Documented By: JENNIFER Methadone HCl (Methadone Hcl 20 Mg/2 Ml Oral.Conc) 50 mg PO DAILY [facility] Last Admin: 07/14/22 09:29 Dose: 50 mg Documented By: GEETA Nicotine (Nicotine 21 Mg Patch.Td24) 21 mg TRANSDERMA DAILY [facility] Last Admin: 07/14/22 09:31 Dose: 21 mg Documented By: GEETA Nicotine Polacrilex (Nicotine Polacrilex 2 Mg Gum) 2 mg BUCCAL Q2H PRN PRN Reason: Nicotine Cravings Ondansetron HCl (Ondansetron Hcl 4 Mg/2 Ml Vial) 4 mg IVPUSH Q8H PRN PRN Reason: Nausea and Vomiting Ondansetron HCl (Ondansetron Hcl 4 Mg/2 Ml Vial) 4 mg IVPUSH ONCE PRN PRN Reason: Nausea and Vomiting Oxycodone HCl (Oxycodone Hcl Immed Release 5 Mg Tablet) 10 mg PO ONCE PRN PRN Reason: Pain, Severe (Pain Scale 7-10) Oxycodone HCl (Oxycodone Hcl Immed Release 5 Mg Tablet) 10 mg PO Q6H PRN PRN Reason: Pain, Moderate (Pain Scale 4-6 Last Admin: 07/14/22 09:28 Dose: 10 mg Documented By: GEETA Pharmacy Consult (Consult Rx Perform Med Rec) 1 each MISCELLANE ONCE PRN PRN Reason: Consult order Pharmacy Consult (Consult Rx Vancomycin Dosing) 1 each MISCELLANE DAILY PRN PRN Reason: Consult order Prazosin HCl (Prazosin Hcl 1 Mg Capsule) 2 mg PO BEDTIME [facility]; Protocol Last Admin: 07/13/22 21:00 Dose: 2 mg Documented By: SILVINA Quetiapine Fumarate (Quetiapine Fumarate 300 Mg Tablet) 300 mg PO BEDTIME [facility] Last Admin: 07/13/22 21:03 Dose: 300 mg Documented By: SILVINA Sodium Chloride (0.9 % Sodium Chloride Flush 3 Ml Syringe) 3 ml IVFLUSH QSHIFT [facility] Last Admin: 07/14/22 09:30 Dose: 3 ml Documented By: GEETA Labs CBC & Chem 7: 07/14/22 06:44 07/14/22 06:44 Labs: Laboratory Results - last 24 hr 07/14/22 07/14/22 06:44 06:44 MCV 84.6 MCH 26.6 L MCHC 31.4 RDW 13.9 Plt Count 366 D MPV 8.5 L Absolute Nucleated RBC 0.000 Nucleated RBC % (auto) 0.0 Anion Gap 16 Estim Creat Clear Calc 132.7 Estimated GFR > 60 Random Glucose 79 Calcium 9.0 Microbiology Microbiology Results: Microbiology 07/11/22 09:22 Blood Culture - Preliminary Blood - Venous No growth after 48 hours. 07/11/22 09:15 Blood Culture - Preliminary Blood - Venous No growth after 48 hours. 07/10/22 11:05 Gram Stain - Final Ankle Aspirate - Aspirate Anaerobic Culture - Preliminary Culture in progress. Gross Specimen Examination - Final Fluid Crystals - Final Joint Fluid Culture - Final Streptococcus pyogenes (Grp A) Assessment and Plan (1) Anterior T wave inversion: Status: Acute (2) Septic arthritis of right ankle: Status: Acute (3) Streptococcal bacteremia: Status: Acute Plan 36-year-old male with past medical history of IV drug use presents to the hospital with right ankle pain, and various symptoms including fever, chills, nausea, poor oral intake found to have sepsis Sepsis secondary to septic arthritis of right ankle s/p joint aspiration by ortho - aspirate growing strep pyogenes s/p I&D in [place] 07/11 Leukocytosis resolved - continue IV ceftriaxone - infectious disease consulted - per verbal discussion plan for 14 days abx, can transition to po ceftin 500 bid upon discharge. if any osteo wound need longer course of IV abx (none seen on imaging) - ortho following Strep pyogenes bacteremia Likely secondary to septic arthritis echo done 07/11 negative for vegetation -will transition from Vanc/zosyn to IV ceftraixone, day 5 of antibiotics -repeat blood cultures negative to date -ID consult pending pleuritic chest pain CT angiogram poor study; V/Q negative for PE trop negative ekg with some twave inversions - appears on previous EKG, but more prominent on repeat echo showed no WMA -seen by Cardiology, recommends daily EKGs to monitor QTC but no further workup indicated acute hyponatremia Resolved suicidal ideation psychiatry consulted - will need Care Team Eval when medically cleared for now continue 1:1 sitter for safety -christine d/c per psych OUD Addiction medicine following, has been started on methadone repeat EKG shows Qtc under 500 hypomagnesemia improved with replacement - follow Mag level depression, ADHD - continue home medications Tobacco dependence smoking cessation advised -NRT DVT prophylaxis: Lovenox attending - dr. Oreilly Patient requires ongoing inpatient hospitalization for management of bacteremia/septic joint, SI Quality Stroke Does the patient have a stroke diagnosis?: No VTE Prior VTE?: No VTE Risk Level:: Medical - moderate - high VTE Device Contraindication: Treatment Not Indicated VTE Drug Contraindication: N/A - Med Ordered
[2022-07-14] MEDS: Magnesium Sulfate/H2O 2 GM/50 ML PIGGYBACK IV (12:23)
[2022-07-14] MEDS: cefTRIAXone sodium 2 GM in 0.9 % Sodium Chloride 50 ML IV (15:04)
[2022-07-14 15:31] VITALS: BP 120/60; PULSE 82; RESP 18; TEMP 36.7; O2SAT 98
[2022-07-14 19:22] VITALS: BP 113/59; PULSE 87; RESP 18; TEMP 36.4; O2SAT 98
[2022-07-14] MEDS: Prazosin HCL 1 MG CAPSULE 2 MG PO (20:53)
[2022-07-14] MEDS: QUEtiapine Fumarate 300 MG TABLET PO (20:53)
[2022-07-15] VITALS: BP 107/59; PULSE 94; RESP 18; TEMP 36.7; O2SAT 96
[2022-07-15] MEDS: Enoxaparin Sodium 40 MG/0.4 ML SYRINGE SUBCUT ×2 (00:29→23:18)
[2022-07-15 03:43] VITALS: BP 144/85; PULSE 101; RESP 20; TEMP 36.9; O2SAT 96
[2022-07-15] MEDS: oxyCODONE HCl Immed Release 5 MG TABLET 10 MG PO ×4 (03:54→21:43)
[2022-07-15 06:36] LABS: Anion Gap 17 (12-20); Blood Urea Nitrogen 17 mg/dL (9-16); Calcium 9.1 mg/dL (8.4-10.2); Carbon Dioxide 24 mmol/L (22-29); Chloride 100 mmol/L (96-108); Creatinine Clr Calc Pharmacy 130.7; Estimated Glomerular Filt Rate > 60; Glucose Random 93 mg/dL (60-115); Magnesium 2.3 mg/dL (1.6-2.6); Potassium 4.7 mmol/L (3.3-5.1); Sodium 136 mmol/L (135-145)
--- NOTE | 2022-07-15 07:30 | PM.PNORT ---
Subjective Subjective Date of Service: 07/15/22 Interval history: POD4 s/p right ankle irrigation and debridement. Patient is resting comfortably in bed. Pain appears to be well managed. No overnight events. No additional complaints. Physical Exam Vital Signs: Vital Signs: Last Vital Signs Temp 98.5 F 07/15/22 03:43 Pulse 101 H 07/15/22 03:43 Resp 20 07/15/22 03:43 BP 144/85 H 07/15/22 03:43 Pulse Ox 96 07/15/22 03:43 O2 Del Method 07/15/22 03:43 O2 Flow Rate 2 07/11/22 14:24 BMI result Body Mass Index 21.1 Const: General: cooperative, healthy appearing and no acute distress Resp: Effort & Inspection: normal respiratory effort and able to speak in complete sentences Cardio: Rate: regular rate Peripheral pulses: Peripheral pulses 2+ throughout GI: Palpation (GI): Soft to palpation Skin: Lesions: no lesions Rashes: no rashes Extrem: Other: Right ankle splint is c/d/i. Incision site is c/d/i. Sutures intact. Able to move all digits. Able to dorsiflex and plantarflex with pain. Sensation intact. Pedal pulse intact. Procedures Date of Service Date of Service: 07/15/22 Progress Note: A&P Assessment and plan (1) Opioid use disorder, severe, dependence: Status: Acute (2) Right ankle swelling: Status: Acute (3) Sepsis: Status: Acute (4) Right ankle effusion: Status: Acute (5) Septic arthritis of right ankle: Status: Acute Assessment and Plan: Continue pain mgmnt Elevate right ankle Continue P.T. - ROM, WBAT IV abx per medicine/ID recommendation Dispo planning-Pain mgmnt awaiting ID consult Time Spent With Patient Time: Total time spent is greater than 50% in coordination of care (as documented) at patient's floor/unit and/or counseling patient: Quality Stroke Does the patient have a stroke diagnosis?: No VTE Prior VTE?: No VTE Risk Level:: Medical - moderate - high VTE Device Contraindication: Treatment Not Indicated VTE Drug Contraindication: N/A - Med Ordered
[2022-07-15] MEDS: 0.9 % Sodium Chloride Flush 3 ML SYRINGE IVFLUSH (08:51)
[2022-07-15] MEDS: HYDROmorphone HCl 1 MG/ML SYRINGE IVPUSH ×2 (08:51→18:38)
[2022-07-15] MEDS: busPIRone HCl 5 MG TABLET 15 MG PO ×2 (08:52→21:44)
[2022-07-15] MEDS: Gabapentin 400 MG CAPSULE 800 MG PO ×3 (08:52→21:44)
[2022-07-15] MEDS: Amphetamine Mixed Salts 10 MG TABLET 30 MG PO ×2 (08:52→13:54)
[2022-07-15] MEDS: cloNIDine HCL 0.1 MG TABLET PO (08:53)
[2022-07-15] MEDS: Nicotine 21 MG PATCH.TD24 TRANSDERMA (08:53)
[2022-07-15] MEDS: methADONE HCl 20 MG/2 ML ORAL.CONC 50 MG PO (09:01)
--- NOTE | 2022-07-15 10:49 | P.PNIM_ITS ---
Subjective Subjective Date of Service: 07/15/22 Interval History: Follow up for bacteremia, right ankle septic arthritis having right ankle pain still no fever, no chills Review of Systems Review of Systems: Yes all other systems are reviewed and are negative Constitutional Constitutional: Denies chills and Denies fever(s) Cardiovascular Cardiovascular: Denies chest pain, Denies palpitations and Denies dyspnea Respiratory Respiratory: Denies cough and Denies dyspnea Gastrointestinal Gastrointestinal: Denies abdominal pain, Denies nausea and Denies vomiting Endocrine Endocrine: Denies palpitations Physical Exam Vital Signs: Vital Signs: Last Vital Signs Temp 98.5 F 07/15/22 03:43 Pulse 101 H 07/15/22 03:43 Resp 20 07/15/22 03:43 BP 144/85 H 07/15/22 03:43 Pulse Ox 96 07/15/22 03:43 O2 Del Method 07/15/22 03:43 O2 Flow Rate 2 07/11/22 14:24 BMI result Body Mass Index 21.1 Appearing in no acute distress lung sounds are clear to auscultation heart regular rate rhythm, clear S1, S2 positive bowel sounds, abdomen is soft, nontender neuro patient is alert x3, no focal deficits Objective Data Active Medications Acetaminophen (Acetaminophen 325 Mg Tablet) 650 mg PO Q6H PRN PRN Reason: Pain, Mild (Pain Scale 1-3) Last Admin: 07/11/22 06:53 Dose: 650 mg Documented By: MAVERICK Albuterol Sulfate (Albuterol Sulfate 90 Mcg 8 Gm Inhaler) 2 puff INHALE Q4H PRN PRN Reason: Respiratory Distress Amphetamine/Dextroamphetamine (Amphetamine Mixed Salts 10 Mg Tablet) 30 mg PO BID@0800,1400 [facility] Last Admin: 07/15/22 08:52 Dose: 30 mg Documented By: CHIKIS Buspirone HCl (Buspirone Hcl 5 Mg Tablet) 15 mg PO BID [facility] Last Admin: 07/15/22 08:52 Dose: 15 mg Documented By: CHIKIS Buspirone HCl (Buspirone Hcl 5 Mg Tablet) 15 mg PO DAILY PRN PRN Reason: anxiety Clonidine HCl (Clonidine Hcl 0.1 Mg Tablet) 0.1 mg PO DAILY [facility]; Protocol Last Admin: 07/15/22 08:53 Dose: 0.1 mg Documented By: CHIKIS Docusate Sodium (Docusate Sodium 100 Mg Capsule) 100 mg PO DAILY PRN PRN Reason: Constipation Enoxaparin Sodium (Enoxaparin Sodium 40 Mg/0.4 Ml Syringe) 40 mg SUBCUT Q24H [facility] Last Admin: 07/15/22 00:29 Dose: 40 mg Documented By: JUAN Gabapentin (Gabapentin 400 Mg Capsule) 800 mg PO TID [facility] Last Admin: 07/15/22 08:52 Dose: 800 mg Documented By: CHIKIS Ceftriaxone Sodium 2 gm/ (Sodium Chloride) 50 mls @ 100 mls/hr IV Q24H [facility] Last Infusion: 07/14/22 16:09 Dose: 0 mls/hr Documented By: GEETA Methadone HCl (Methadone Hcl 20 Mg/2 Ml Oral.Conc) 50 mg PO DAILY [facility] Last Admin: 07/15/22 09:01 Dose: 50 mg Documented By: CHIKIS Nicotine (Nicotine 21 Mg Patch.Td24) 21 mg TRANSDERMA DAILY [facility] Last Admin: 07/15/22 08:53 Dose: 21 mg Documented By: CHIKIS Nicotine Polacrilex (Nicotine Polacrilex 2 Mg Gum) 2 mg BUCCAL Q2H PRN PRN Reason: Nicotine Cravings Ondansetron HCl (Ondansetron Hcl 4 Mg/2 Ml Vial) 4 mg IVPUSH Q8H PRN PRN Reason: Nausea and Vomiting Ondansetron HCl (Ondansetron Hcl 4 Mg/2 Ml Vial) 4 mg IVPUSH ONCE PRN PRN Reason: Nausea and Vomiting Oxycodone HCl (Oxycodone Hcl Immed Release 5 Mg Tablet) 10 mg PO ONCE PRN PRN Reason: Pain, Severe (Pain Scale 7-10) Oxycodone HCl (Oxycodone Hcl Immed Release 5 Mg Tablet) 10 mg PO Q6H PRN PRN Reason: Pain, Moderate (Pain Scale 4-6 Last Admin: 07/15/22 10:46 Dose: 10 mg Documented By: CHIKIS Pharmacy Consult (Consult Rx Perform Med Rec) 1 each MISCELLANE ONCE PRN PRN Reason: Consult order Pharmacy Consult (Consult Rx Vancomycin Dosing) 1 each MISCELLANE DAILY PRN PRN Reason: Consult order Prazosin HCl (Prazosin Hcl 1 Mg Capsule) 2 mg PO BEDTIME [facility]; Protocol Last Admin: 07/14/22 20:53 Dose: 2 mg Documented By: JUAN Quetiapine Fumarate (Quetiapine Fumarate 300 Mg Tablet) 300 mg PO BEDTIME [facility] Last Admin: 07/14/22 20:53 Dose: 300 mg Documented By: JUAN Sodium Chloride (0.9 % Sodium Chloride Flush 3 Ml Syringe) 3 ml IVFLUSH QSHIFT [facility] Last Admin: 07/15/22 08:51 Dose: 3 ml Documented By: CHIKIS Labs CBC & Chem 7: 07/14/22 06:44 07/15/22 06:12 Labs: Laboratory Results - last 24 hr 07/15/22 06:12 Anion Gap 17 Estim Creat Clear Calc 130.7 Estimated GFR > 60 Random Glucose 93 Calcium 9.1 Magnesium 2.3 Microbiology Microbiology Results: Microbiology 07/10/22 11:05 Gram Stain - Final Ankle Aspirate - Aspirate Anaerobic Culture - Final Gross Specimen Examination - Final Fluid Crystals - Final Joint Fluid Culture - Final Streptococcus pyogenes (Grp A) Assessment and Plan (1) Anterior T wave inversion: Status: Acute (2) Septic arthritis of right ankle: Status: Acute (3) Streptococcal bacteremia: Status: Acute Plan 36-year-old male with past medical history of IV drug use presents to the hospital with right ankle pain, and various symptoms including fever, chills, nausea, poor oral intake found to have sepsis Sepsis secondary to septic arthritis of right ankle s/p joint aspiration by ortho - aspirate growing strep pyogenes s/p I&D in OR 07/11 Leukocytosis resolved continue IV ceftriaxone per ID plan for 14 days abx, can transition to po ceftin 500 bid upon discharge. if any osteo wound need longer course of IV abx (none seen on imaging) ortho following Strep pyogenes bacteremia Likely secondary to septic arthritis echo done 07/11 negative for vegetation Transitioned from vanco and Zosyn to Rocephin repeat blood cultures negative to date ID consult pending pleuritic chest pain CT angiogram poor study; V/Q negative for PE trop negative ekg with some twave inversions - appears on previous EKG, but more prominent on repeat echo showed no WMA seen by Cardiology, recommends daily EKGs to monitor QTC but no further workup indicated acute hyponatremia Resolved suicidal ideation psychiatry consulted - will need Care Team Eval when medically cleared for now continue 1:1 sitter for safety OUD Addiction medicine following, has been started on methadone repeat EKG shows Qtc under 500 hypomagnesemia improved with replacement follow Mag level depression, ADHD continue home medications Tobacco dependence smoking cessation advised NRT DVT prophylaxis: Sonia attending - dr. Cooper Patient requires ongoing inpatient hospitalization for management of bacteremia/septic joint, SI Quality Stroke Does the patient have a stroke diagnosis?: No VTE Prior VTE?: No VTE Risk Level:: Medical - moderate - high VTE Device Contraindication: Treatment Not Indicated VTE Drug Contraindication: N/A - Med Ordered
[2022-07-15] MEDS: cefTRIAXone sodium 2 GM in 0.9 % Sodium Chloride 50 ML IV (10:52)
--- NOTE | 2022-07-15 11:36 | MHC.CM.PN ---
Per ROUNDS discussion, Patient is not yet medically cleared for dc (ID Consult pending, Ortho input needed, Pain in (R) Ankle); CM will follow for dc planning pending ID recs.
[2022-07-15] MEDS: methADONE HCl 20 MG/2 ML ORAL.CONC 5 MG PO (15:21)
[2022-07-15 15:57] VITALS: BP 123/66; PULSE 90; RESP 16; TEMP 36.4; O2SAT 99
--- NOTE | 2022-07-15 15:58 | MHC.RECOVRN ---
This mortgage underwriter met w/ pt, pt alert, sitting up in bed, watching t.v. Pt reporting cold sweats, really intense sweats. Pt states sweats were so intense, pt had to change the sheets on the bed. Pt reports every evening between 5-7pm, pt has hot/cold sweats, gooseflesh. Pt states was receiving 8mg BUP from Dr. Nguyen. Pt reports was doing well for a while, stable on Suboxone. Pt reports there was an issue at pharmacy w/ Suboxone refill for 5 days, pt then used after the 5 days without Suboxone. Pt reports reoccurrence for past 3 weeks up until being hospitalized. Pt reports heroin use daily 3 bundles. T/W and pt discussed Sublocade injection education. Provider aware of pts withdrawal symptoms, ordered 5mg PRN MTD dose for today.
[2022-07-15 19:56] VITALS: BP 122/66; PULSE 93; RESP 16; TEMP 36; O2SAT 98
[2022-07-15] MEDS: QUEtiapine Fumarate 300 MG TABLET PO (21:43)
[2022-07-15] MEDS: Prazosin HCL 1 MG CAPSULE 2 MG PO (21:43)
[2022-07-15 23:53] VITALS: BP 135/61; PULSE 102; RESP 14; TEMP 36.9; O2SAT 96
[2022-07-16] MEDS: 0.9 % Sodium Chloride Flush 3 ML SYRINGE IVFLUSH ×2 (00:41→08:26)
[2022-07-16 02:57] VITALS: BP 125/61; PULSE 87; RESP 14; TEMP 37.1; O2SAT 98
[2022-07-16] MEDS: HYDROmorphone HCl 1 MG/ML SYRINGE IVPUSH ×4 (03:00→20:44)
[2022-07-16 07:32] LABS: Creatinine Clr Calc Pharmacy 134.7; Estimated Glomerular Filt Rate > 60
[2022-07-16 08:00] VITALS: BP 112/60; PULSE 87; RESP 20; TEMP 36.9; O2SAT 97
[2022-07-16] MEDS: methADONE HCl 20 MG/2 ML ORAL.CONC 50 MG PO (08:26)
[2022-07-16] MEDS: Amphetamine Mixed Salts 10 MG TABLET 30 MG PO ×2 (08:27→14:28)
[2022-07-16] MEDS: cloNIDine HCL 0.1 MG TABLET PO (08:27)
[2022-07-16] MEDS: busPIRone HCl 5 MG TABLET 15 MG PO ×2 (08:27→20:43)
[2022-07-16] MEDS: Nicotine 21 MG PATCH.TD24 TRANSDERMA (08:28)
[2022-07-16] MEDS: Gabapentin 400 MG CAPSULE 800 MG PO ×3 (08:28→20:43)
[2022-07-16] MEDS: cefTRIAXone sodium 2 GM in 0.9 % Sodium Chloride 50 ML IV (11:12)
[2022-07-16] MEDS: methADONE HCl 20 MG/2 ML ORAL.CONC 10 MG PO (11:12)
[2022-07-16] MEDS: oxyCODONE HCl Immed Release 5 MG TABLET 10 MG PO ×2 (11:12→18:09)
[2022-07-16 11:24] VITALS: BP 112/64; PULSE 94; RESP 20; TEMP 36.4; O2SAT 97
--- NOTE | 2022-07-16 12:32 | MHC.RECOVRN ---
Met with pt in 459 to follow up regarding methadone titration and discharge plans. Pt laying in bed, lights off, awake, alert, easily engages in conversation. Pt familiar with t/w from previous consultations. Pt appears uncomfortable, diaphoretic, restless. Pt requesting methadone dose increase, reports additional 5 mg on 07/15 wasn't enough. Pt states When I was on 100 mg I was good. Pt reports pain in right ankle and stated it took 16 hours for it to get this bad prior to admission. In regards to dc planning, pt declines STR if needed as well as CSS placement. Pt states I just want to go home. Discussed with Daphney Mcgovern APRN.
--- NOTE | 2022-07-16 12:48 | P.CNID_ITS ---
History of Present Illness Data of Consult Service Date: 07/15/22 Requesting physician: Temitope Malik Primary Care Provider: Raquel Gao MD HPI Reason for consult: sepsis ,septic joint Group A strep He presents with right ankle discomfort and swelling. He feels chilled. 07/09 Group A strep blood and ankle. Bacteremia has cleared. Review of Systems Review of Systems: Yes all other systems are reviewed and are negative PMFSH Past Medical History Medical History Abrasion of face ADHD DVT (deep venous thrombosis) Endocarditis Eye contusion Head injury Hepatitis C Heroin overdose IV drug abuse Left upper extremity deep vein thrombosis Mood disorder Multiple abrasions Opiate abuse, continuous Pulmonary emboli Severe sepsis Suicide attempt Family History Family history: reviewed and not pertinent Surgical History Surgical History History of left knee surgery Hx of eye surgery S/P left knee arthroscopy Social History Social History Household Members: None Housing: Other Housing Other:: hotel everyday Do you presently have visiting nurse or other home services: No Alcohol intake: never Patient Tobacco Use Status: Current everyday Tobacco user Tobacco use type: Cigarette Cigarette Packs Per Day: 1 Cigarettes Per Day: 30 Years Smoked: 15 e-Cigarette/Vaping Use: Never Used Second Hand Smoke Exposure: No Substance Use Type: Crack/Cocaine and IV Drugs service: No Current occupational status: unemployed Sexual orientation: Straight/Heterosexual Meds Allergies Allergy/AdvReac Type Severity Reaction Status Date / Time haloperidol [From HALDOL] AdvReac Intermediate LOCK JAW Verified 07/11/22 11:54 olanzapine [From ZYPREXA] AdvReac Unknown PT REPORTS Verified 07/11/22 11:54 FEELS LIKE I AM ON AN ACID TRIP Active Medications: Current Medications Acetaminophen (Acetaminophen 325 Mg Tablet) 650 mg PO Q6H PRN PRN Reason: Pain, Mild (Pain Scale 1-3) Last Admin: 07/11/22 06:53 Dose: 650 mg Albuterol Sulfate (Albuterol Sulfate 90 Mcg 8 Gm Inhaler) 2 puff INHALE Q4H PRN PRN Reason: Respiratory Distress Amphetamine/Dextroamphetamine (Amphetamine Mixed Salts 10 Mg Tablet) 30 mg PO BID@0800,1400 [facility] Last Admin: 07/16/22 08:27 Dose: 30 mg Buspirone HCl (Buspirone Hcl 5 Mg Tablet) 15 mg PO BID [facility] Last Admin: 07/16/22 08:27 Dose: 15 mg Buspirone HCl (Buspirone Hcl 5 Mg Tablet) 15 mg PO DAILY PRN PRN Reason: anxiety Clonidine HCl (Clonidine Hcl 0.1 Mg Tablet) 0.1 mg PO DAILY [facility]; Protocol Last Admin: 07/16/22 08:27 Dose: 0.1 mg Docusate Sodium (Docusate Sodium 100 Mg Capsule) 100 mg PO DAILY PRN PRN Reason: Constipation Enoxaparin Sodium (Enoxaparin Sodium 40 Mg/0.4 Ml Syringe) 40 mg SUBCUT Q24H [facility] Last Admin: 07/15/22 23:18 Dose: 40 mg Gabapentin (Gabapentin 400 Mg Capsule) 800 mg PO TID [facility] Last Admin: 07/16/22 08:28 Dose: 800 mg Hydromorphone HCl (Hydromorphone Hcl 1 Mg/Ml Syringe) 1 mg IVPUSH Q4H PRN; Protocol PRN Reason: Pain, Severe (Pain Scale 7-10) Last Admin: 07/16/22 08:26 Dose: 1 mg Ceftriaxone Sodium 2 gm/ (Sodium Chloride) 50 mls @ 100 mls/hr IV Q24H [facility] Last Infusion: 07/16/22 11:59 Dose: Infused Methadone HCl (Methadone Hcl 20 Mg/2 Ml Oral.Conc) 65 mg PO DAILY [facility] Nicotine (Nicotine 21 Mg Patch.Td24) 21 mg TRANSDERMA DAILY [facility] Last Admin: 07/16/22 08:28 Dose: 21 mg Nicotine Polacrilex (Nicotine Polacrilex 2 Mg Gum) 2 mg BUCCAL Q2H PRN PRN Reason: Nicotine Cravings Ondansetron HCl (Ondansetron Hcl 4 Mg/2 Ml Vial) 4 mg IVPUSH Q8H PRN PRN Reason: Nausea and Vomiting Ondansetron HCl (Ondansetron Hcl 4 Mg/2 Ml Vial) 4 mg IVPUSH ONCE PRN PRN Reason: Nausea and Vomiting Oxycodone HCl (Oxycodone Hcl Immed Release 5 Mg Tablet) 10 mg PO Q6H PRN PRN Reason: Pain, Moderate (Pain Scale 4-6 Last Admin: 07/16/22 11:12 Dose: 10 mg Pharmacy Consult (Consult Rx Perform Med Rec) 1 each MISCELLANE ONCE PRN PRN Reason: Consult order Pharmacy Consult (Consult Rx Vancomycin Dosing) 1 each MISCELLANE DAILY PRN PRN Reason: Consult order Prazosin HCl (Prazosin Hcl 1 Mg Capsule) 2 mg PO BEDTIME [facility]; Protocol Last Admin: 07/15/22 21:43 Dose: 2 mg Quetiapine Fumarate (Quetiapine Fumarate 300 Mg Tablet) 300 mg PO BEDTIME [facility] Last Admin: 07/15/22 21:43 Dose: 300 mg Sodium Chloride (0.9 % Sodium Chloride Flush 3 Ml Syringe) 3 ml IVFLUSH QSHIFT [facility] Last Admin: 07/16/22 08:26 Dose: 3 ml Home Medications Medication Instructions Recorded Confirmed Last Taken Type albuterol sulfate 90 mcg/actuation 2 puff inhalation Q4H PRN 11/13/21 07/09/22 Unknown History aerosol inhaler Respiratory Distress prazosin 1 mg capsule 2 mg PO BEDTIME 11/13/21 07/09/22 Unknown History cariprazine 3 mg capsule (Vraylar) 3 mg PO DAILY 07/09/22 07/09/22 Unknown History clonidine HCl 0.1 mg tablet 0.1 mg PO DAILY 07/09/22 07/09/22 Unknown History dextroamphetamine-amphetamine 30 1 tab PO BID 07/09/22 07/09/22 Unknown History mg tablet gabapentin 800 mg tablet 800 mg PO TID 07/09/22 07/09/22 Unknown History Physical Exam Vital Signs: Vital Signs: Last Vital Signs Temp 97.6 F 07/16/22 11:24 Pulse 94 07/16/22 11:24 Resp 20 07/16/22 11:24 BP 112/64 07/16/22 11:24 Pulse Ox 97 07/16/22 11:24 O2 Del Method 07/16/22 11:24 O2 Flow Rate 2 07/11/22 14:24 BMI result Body Mass Index 21.1 Const: General: cooperative HEENT: Head: Yes normal to inspection Face and sinus: Yes normal facial exam Mouth: Normal oral and palatal mucosa present Teeth and gingiva: dentition normal Eyes: General: appearance normal, both eyes and all related structures Pu pils: Equal, round and reactive pupils present Resp: Effort & Inspection: normal respiratory effort Cardio: Rate: regular rate Rhythm: regular rhythm GI: Palpation (GI): Soft to palpation and nontender : General: Yes no CVA tenderness Back/Spine/Pelvis: Back: no CVA tenderness Skin: General skin exam: no rashes or lesions noted Neuro: General: moves all extremities Cranial nerves: Yes Equal, round and reactive pupils present Extrem: Other: some mild swelling ankle Psych: Appearance: grossly normal Results Labs CBC & Chem 7: 07/14/22 06:44 07/16/22 06:10 Labs: BMP 07/16/22 06:10 Creatinine 0.65 Microbiology Microbiology Results: Microbiology 07/11/22 09:15 Blood - Venous Blood Culture - Final No growth after 5 days. 07/11/22 09: Blood - Venous Blood Culture - Final No growth after 5 days. 07/10/22 11:05 Ankle Aspirate - Aspirate Gram Stain - Final 07/10/22 11:05 Ankle Aspirate - Aspirate Anaerobic Culture - Final 07/10/22 11:05 Ankle Aspirate - Aspirate Gross Specimen Examination - Final 07/10/22 11:05 Ankle Aspirate - Aspirate Fluid Crystals - Final 07/10/22 11:05 Ankle Aspirate - Aspirate Joint Fluid Culture - Final Streptococcus pyogenes (Grp A) 07/09/22 21:18 Blood - Venous Blood Culture - Final Streptococcus pyogenes (Grp A) 07/09/22 20:41 Blood - Venous Blood Culture - Final Streptococcus pyogenes (Grp A) Assessment and Plan (1) Septic arthritis of right ankle: Status: Acute He is feeling better and has received 8 days IV antibiotics and is now on Ceftriaxone Plan May switch to po Amoxicillin 500 mg po tid for three weeks Alternatively could give IV Ceftriaxone daily and restart IV daily Adherence with either above regimen concerning due to IVDU and needs close followup PCP as outpatient or me.
--- NOTE | 2022-07-16 13:16 | W.PM.OPN ---
Operative Note Operative Note Date of Service: 07/11/22 Narrative: Date of Service: 07/11/22 Pre-op diagnosis: septic right ankle Post-op diagnosis: same Procedure: incision and drainage right ankle Surgeon: Ricardo Cortez MD Anesthesia: GETA and regional Was an Passenger Service Representative used for this Procedure?: Yes Passenger Service Representative: Ricardo Cortez Estimated blood loss (mL): 5 Tourniquet time (min): 40 IV fluids (mL): 800 Pathology: none sent Condition: stable Disposition: PACU Procedure in detail: Patient was brought to the operating room and placed supine on the operative table. All bony prominences were well padded and a time-out was called to identify proper site proper procedure proper surgeon. IV antibiotics per weight were administered. I began by insufflating the tourniquet without exsanguination to 300 mm Hg. I then made a anteriorl incision over the fibula. The superficial peropneal n. was identified and then the EHL and medial extensors were identified. The tibial artery was retracted medially with the EHL and TA and a retinacular salima incision was made exposing the distal tibia. Periosteal elevation was taken down to the ankle joint and a longitudinal incision was made over the joint. About 5 ml of purulent fluid was expressed. I was able to visualize the joint and I irrigated with 6 liters of warm saline and used a rongeur and currette to remove and synovial tissue. the cartilage appeared grossly intact and healthy. Once I had irrigated copiously I placed a small drain and closed the skin with a running nylon.
--- NOTE | 2022-07-16 15:33 | P.PNIM_ITS ---
Subjective Subjective Date of Service: 07/16/22 Interval History: Follow up for bacteremia, right ankle septic arthritis having right ankle pain no fever, no chills Review of Systems Review of Systems: Yes all other systems are reviewed and are negative Constitutional Constitutional: Denies chills and Denies fever(s) Cardiovascular Cardiovascular: Denies chest pain, Denies palpitations and Denies dyspnea Respiratory Respiratory: Denies cough and Denies dyspnea Gastrointestinal Gastrointestinal: Denies abdominal pain, Denies nausea and Denies vomiting Endocrine Endocrine: Denies palpitations Physical Exam Vital Signs: Vital Signs: Last Vital Signs Temp 97.6 F 07/16/22 11:24 Pulse 94 07/16/22 11:24 Resp 20 07/16/22 11:24 BP 112/64 07/16/22 11:24 Pulse Ox 97 07/16/22 11:24 O2 Del Method 07/16/22 11:24 O2 Flow Rate 2 07/11/22 14:24 BMI result Body Mass Index 21.1 Appearing in no acute distress lung sounds are clear to auscultation heart regular rate rhythm, clear S1, S2 positive bowel sounds, abdomen is soft, nontender neuro patient is alert x3, no focal deficits Objective Data Active Medications Acetaminophen (Acetaminophen 325 Mg Tablet) 650 mg PO Q6H PRN PRN Reason: Pain, Mild (Pain Scale 1-3) Last Admin: 07/11/22 06:53 Dose: 650 mg Documented By: MAVERICK Albuterol Sulfate (Albuterol Sulfate 90 Mcg 8 Gm Inhaler) 2 puff INHALE Q4H PRN PRN Reason: Respiratory Distress Amphetamine/Dextroamphetamine (Amphetamine Mixed Salts 10 Mg Tablet) 30 mg PO BID@0800,1400 [facility] Last Admin: 07/16/22 14:28 Dose: 30 mg Documented By: CHIKIS Buspirone HCl (Buspirone Hcl 5 Mg Tablet) 15 mg PO BID [facility] Last Admin: 07/16/22 08:27 Dose: 15 mg Documented By: CHIKIS Buspirone HCl (Buspirone Hcl 5 Mg Tablet) 15 mg PO DAILY PRN PRN Reason: anxiety Clonidine HCl (Clonidine Hcl 0.1 Mg Tablet) 0.1 mg PO DAILY [facility]; Protocol Last Admin: 07/16/22 08:27 Dose: 0.1 mg Documented By: CHIKIS Docusate Sodium (Docusate Sodium 100 Mg Capsule) 100 mg PO DAILY PRN PRN Reason: Constipation Enoxaparin Sodium (Enoxaparin Sodium 40 Mg/0.4 Ml Syringe) 40 mg SUBCUT Q24H [facility] Last Admin: 07/15/22 23:18 Dose: 40 mg Documented By: LUIS MIGUEL Gabapentin (Gabapentin 400 Mg Capsule) 800 mg PO TID [facility] Last Admin: 07/16/22 14:28 Dose: 800 mg Documented By: CHIKIS Hydromorphone HCl (Hydromorphone Hcl 1 Mg/Ml Syringe) 1 mg IVPUSH Q4H PRN; Protocol PRN Reason: Pain, Severe (Pain Scale 7-10) Last Admin: 07/16/22 14:27 Dose: 1 mg Documented By: CHIKIS Ceftriaxone Sodium 2 gm/ (Sodium Chloride) 50 mls @ 100 mls/hr IV Q24H [facility] Last Infusion: 07/16/22 11:59 Dose: 0 mls/hr Documented By: CHIKIS Methadone HCl (Methadone Hcl 20 Mg/2 Ml Oral.Conc) 65 mg PO DAILY [facility] Nicotine (Nicotine 21 Mg Patch.Td24) 21 mg TRANSDERMA DAILY [facility] Last Admin: 07/16/22 08:28 Dose: 21 mg Documented By: CHIKIS Nicotine Polacrilex (Nicotine Polacrilex 2 Mg Gum) 2 mg BUCCAL Q2H PRN PRN Reason: Nicotine Cravings Ondansetron HCl (Ondansetron Hcl 4 Mg/2 Ml Vial) 4 mg IVPUSH Q8H PRN PRN Reason: Nausea and Vomiting Ondansetron HCl (Ondansetron Hcl 4 Mg/2 Ml Vial) 4 mg IVPUSH ONCE PRN PRN Reason: Nausea and Vomiting Oxycodone HCl (Oxycodone Hcl Immed Release 5 Mg Tablet) 10 mg PO Q6H PRN PRN Reason: Pain, Moderate (Pain Scale 4-6 Last Admin: 07/16/22 11:12 Dose: 10 mg Documented By: CHIKIS Pharmacy Consult (Consult Rx Perform Med Rec) 1 each MISCELLANE ONCE PRN PRN Reason: Consult order Pharmacy Consult (Consult Rx Vancomycin Dosing) 1 each MISCELLANE DAILY PRN PRN Reason: Consult order Prazosin HCl (Prazosin Hcl 1 Mg Capsule) 2 mg PO BEDTIME [facility]; Protocol Last Admin: 07/15/22 21:43 Dose: 2 mg Documented By: LUIS MIGUEL Quetiapine Fumarate (Quetiapine Fumarate 300 Mg Tablet) 300 mg PO BEDTIME [facility] Last Admin: 07/15/22 21:43 Dose: 300 mg Documented By: LUIS MIGUEL Sodium Chloride (0.9 % Sodium Chloride Flush 3 Ml Syringe) 3 ml IVFLUSH QSHIFT [facility] Last Admin: 07/16/22 08:26 Dose: 3 ml Documented By: CHIKIS Labs CBC & Chem 7: 07/14/22 06:44 07/16/22 06:10 Labs: Laboratory Results - last 24 hr 07/16/22 06:10 Estim Creat Clear Calc 134.7 Estimated GFR > 60 Microbiology Microbiology Results: Microbiology 07/11/22 09:15 Blood Culture - Final Blood - Venous No growth after 5 days. 07/11/22 09:22 Blood Culture - Final Blood - Venous No growth after 5 days. Assessment and Plan (1) Anterior T wave inversion: Status: Acute (2) Septic arthritis of right ankle: Status: Acute (3) Streptococcal bacteremia: Status: Acute Plan 36-year-old male with past medical history of IV drug use presents to the hospital with right ankle pain, and various symptoms including fever, chills, nausea, poor oral intake found to have sepsis Sepsis secondary to septic arthritis of right ankle s/p joint aspiration by ortho - aspirate growing strep pyogenes s/p I&D in OR 07/11 Leukocytosis resolved continue IV ceftriaxone per ID plan for transition to amoxicillin 500 bid for 3 weeks upon discharge s/p OR for I&D today by ortho Strep pyogenes bacteremia Likely secondary to septic arthritis echo done 07/11 negative for vegetation Transitioned from vanco and Zosyn to Rocephin repeat blood cultures negative to date ID following pleuritic chest pain CT angiogram poor study; V/Q negative for PE trop negative ekg with some twave inversions - appears on previous EKG, but more prominent on repeat echo showed no WMA seen by Cardiology, recommends daily EKGs to monitor QTC but no further workup indicated acute hyponatremia Resolved suicidal ideation. No longer present sitter dc'd continue camera psychiatry consulted - will need Care Team Eval when medically cleared OUD Addiction medicine following, has been started on methadone repeat EKG shows Qtc under 500 hypomagnesemia improved with replacement follow Mag level depression, ADHD continue home medications Tobacco dependence smoking cessation advised NRT DVT prophylaxis: Lovenox attending - dr. Kenneth CAL[facility]ILLO [facility] Patient requires ongoing inpatient hospitalization for management of bacteremia /septic joint, SI Quality Stroke Does the patient have a stroke diagnosis?: No VTE Prior VTE?: No VTE Risk Level:: Medical - moderate - high VTE Device Contraindication: Treatment Not Indicated VTE Drug Contraindication: N/A - Med Ordered
[2022-07-16 16:00] VITALS: BP 116/58; PULSE 87; RESP 16; TEMP 36.7; O2SAT 98
--- NOTE | 2022-07-16 18:01 | PM.PNORT ---
Subjective Subjective Date of Service: 07/16/22 Interval history: POD4 5 s/p right ankle irrigation and debridement. Patient is resting comfortably in bed. Pain appears to be well managed. No overnight events. No additional complaints. Physical Exam Vital Signs: Vital Signs: Last Vital Signs Temp 98.1 F 07/16/22 16:00 Pulse 87 07/16/22 16:00 Resp 16 07/16/22 16:00 BP 116/58 L 07/16/22 16:00 Pulse Ox 98 07/16/22 16:00 O2 Del Method 07/16/22 16:00 O2 Flow Rate 2 07/11/22 14:24 BMI result Body Mass Index 21.1 Const: General: cooperative, healthy appearing and no acute distress Resp: Effort & Inspection: normal respiratory effort and able to speak in complete sentences Cardio: Rate: regular rate Peripheral pulses: Peripheral pulses 2+ throughout GI: Palpation (GI): Soft to palpation Skin: Lesions: no lesions Rashes: no rashes Extrem: Other: Right ankle splint is c/d/i. Incision site is c/d/i. Sutures intact. Able to move all digits. Able to dorsiflex and plantarflex with pain. Sensation intact. Pedal pulse intact. Procedures Date of Service Date of Service: 07/16/22 Progress Note: A&P Assessment and plan (1) Opioid use disorder, severe, dependence: Status: Acute (2) Right ankle swelling: Status: Acute (3) Sepsis: Status: Acute (4) Right ankle effusion: Status: Acute (5) Septic arthritis of right ankle: Status: Acute Assessment and Plan: Continue pain mgmnt Elevate right ankle Continue P.T. - ROM, WBAT IV abx per medicine/ID recommendation Dispo planning-Pain mgmnt Follow up with ortho 7-10 days post op for suture removal ID recs: May switch to po Amoxicillin 500 mg po tid for three weeks Alternatively could give IV Ceftriaxone daily and restart IV daily Adherence with either above regimen concerning due to IVDU and needs close followup PCP as outpatient or me. Time Spent With Patient Time: Total time spent is greater than 50% in coordination of care (as documented) at patient's floor/unit and/or counseling patient: Quality Stroke Does the patient have a stroke diagnosis?: No VTE Prior VTE?: No VTE Risk Level:: Medical - moderate - high VTE Device Contraindication: Treatment Not Indicated VTE Drug Contraindication: N/A - Med Ordered
[2022-07-16 19:37] VITALS: BP 116/64; PULSE 91; RESP 16; TEMP 36.9; O2SAT 97
[2022-07-16] MEDS: QUEtiapine Fumarate 300 MG TABLET PO (20:44)
[2022-07-16] MEDS: Prazosin HCL 1 MG CAPSULE 2 MG PO (20:44)
[2022-07-16 23:22] VITALS: BP 113/57; PULSE 89; RESP 18; TEMP 36.7; O2SAT 100
[2022-07-17] MEDS: HYDROmorphone HCl 1 MG/ML SYRINGE IVPUSH ×2 (00:54→09:51)
[2022-07-17] MEDS: Enoxaparin Sodium 40 MG/0.4 ML SYRINGE SUBCUT (00:54)
[2022-07-17 03:27] VITALS: BP 125/77; PULSE 94; RESP 18; TEMP 36.4; O2SAT 98
[2022-07-17] MEDS: 0.9 % Sodium Chloride Flush 3 ML SYRINGE IVFLUSH ×4 (04:06→20:32)
[2022-07-17 07:55] VITALS: BP 129/70; PULSE 94; RESP 18; TEMP 36.9; O2SAT 97
[2022-07-17 08:19] LABS: Anion Gap 16 (12-20); Blood Urea Nitrogen 20 mg/dL (9-16); Calcium 9.1 mg/dL (8.4-10.2); Carbon Dioxide 26 mmol/L (22-29); Chloride 101 mmol/L (96-108); Creatinine Clr Calc Pharmacy 143.6; Estimated Glomerular Filt Rate > 60; Glucose Random 85 mg/dL (60-115); Potassium 4.6 mmol/L (3.3-5.1); Sodium 138 mmol/L (135-145)
[2022-07-17 08:21] LABS: Creatinine Clr Calc Pharmacy 141.2; Estimated Glomerular Filt Rate > 60
[2022-07-17 09:30] VITALS: BP 129/70; PULSE 94; O2SAT 97
[2022-07-17] MEDS: busPIRone HCl 5 MG TABLET 15 MG PO ×2 (09:50→20:31)
[2022-07-17] MEDS: Amphetamine Mixed Salts 10 MG TABLET 30 MG PO ×2 (09:50→14:56)
[2022-07-17] MEDS: Gabapentin 400 MG CAPSULE 800 MG PO ×3 (09:51→20:31)
[2022-07-17] MEDS: methADONE HCl 20 MG/2 ML ORAL.CONC 65 MG PO (09:51)
[2022-07-17] MEDS: Nicotine 21 MG PATCH.TD24 TRANSDERMA (09:51)
[2022-07-17] MEDS: cloNIDine HCL 0.1 MG TABLET PO (09:51)
[2022-07-17 11:27] VITALS: BP 118/60; PULSE 87; RESP 18; TEMP 36.7; O2SAT 98
[2022-07-17] MEDS: cefTRIAXone sodium 2 GM in 0.9 % Sodium Chloride 50 ML IV (12:42)
--- NOTE | 2022-07-17 14:48 | MHC.RECOVRN ---
Met with pt to check in. Upon entering room, pt sitting in bed, awake, alert, watching TV. Reports feeling better with methadone dose increase, still reports diaphoresis. Per CM, pt to discharge tomorrow. Pt states I'm ready to go but I can't walk. Continues to report ankle pain. Pt plans to return to [facility] and continue methadone with [facility]. Pt must receive last dose letter at discharge. Denies questions or conerns at this time. Discussed with Daphney Mcgovern APRN.
[2022-07-17] MEDS: oxyCODONE HCl Immed Release 5 MG TABLET 10 MG PO (14:55)
--- NOTE | 2022-07-17 15:49 | MHC.CM.PN ---
per rounds pt to return to [place] [id number] and will get his methadone from [facility]
[2022-07-17 16:00] VITALS: BP 115/60; PULSE 88; RESP 16; TEMP 37.2; O2SAT 98
--- NOTE | 2022-07-17 17:36 | P.PNIM_ITS ---
Subjective Subjective Date of Service: 07/18/22 Interval History: Complaining of right ankle pain with difficulty in ambulation, denies fever chills, denies headache dizziness, no diarrhea, requesting for pain medications on oxycodone, IV Dilaudid and methadone. Review of Systems CVS no chest pain Respiratory no shortness of breath no chest pain GI no nausea, no vomiting, no diarrhea. Review of Systems: Yes all other systems are reviewed and are negative Physical Exam Vital Signs: Vital Signs: Last Vital Signs Temp 98.9 F 07/17/22 16:00 Pulse 88 07/17/22 16:00 Resp 16 07/17/22 16:00 BP 115/60 07/17/22 16:00 Pulse Ox 98 07/17/22 16:00 O2 Del Method 07/17/22 16:00 O2 Flow Rate 2 07/11/22 14:24 BMI result Body Mass Index 21.1 Const: Other: General awake alert, diaphoretic, in no acute distress. Neck supple no JVD. CVS regular rate rhythm, Respiratory lungs clear to auscultation, no respiratory distress, no wheeze, no rhonchi. Gastrointestinal abdomen soft, nontender, bowel sounds audible, no guarding , no rigidity. Extremities right ankle incision dry and clean surrounding erythema, swelling and tenderness to palpation able to do flexion extension limited due to pain Neuro nonfocal , speech clear. Psych appropriate affect Objective Data Active Medications Acetaminophen (Acetaminophen 325 Mg Tablet) 650 mg PO Q6H PRN PRN Reason: Pain, Mild (Pain Scale 1-3) Last Admin: 07/11/22 06:53 Dose: 650 mg Documented By: MAVERICK Albuterol Sulfate (Albuterol Sulfate 90 Mcg 8 Gm Inhaler) 2 puff INHALE Q4H PRN PRN Reason: Respiratory Distress Amphetamine/Dextroamphetamine (Amphetamine Mixed Salts 10 Mg Tablet) 30 mg PO BID@0800,1400 [facility] Last Admin: 07/17/22 14:56 Dose: 30 mg Documented By: JENNIFER Buspirone HCl (Buspirone Hcl 5 Mg Tablet) 15 mg PO BID [facility] Last Admin: 07/17/22 09:50 Dose: 15 mg Documented By: JENNIFER Buspirone HCl (Buspirone Hcl 5 Mg Tablet) 15 mg PO DAILY PRN PRN Reason: anxiety Clonidine HCl (Clonidine Hcl 0.1 Mg Tablet) 0.1 mg PO DAILY [facility]; Protocol Last Admin: 07/17/22 09:51 Dose: 0.1 mg Documented By: JENNIFER Docusate Sodium (Docusate Sodium 100 Mg Capsule) 100 mg PO DAILY PRN PRN Reason: Constipation Enoxaparin Sodium (Enoxaparin Sodium 40 Mg/0.4 Ml Syringe) 40 mg SUBCUT Q24H [facility] Last Admin: 07/17/22 00:54 Dose: 40 mg Documented By: LUIS MIGUEL Gabapentin (Gabapentin 400 Mg Capsule) 800 mg PO TID [facility] Last Admin: 07/17/22 14:55 Dose: 800 mg Documented By: JENNIFER Hydromorphone HCl (Hydromorphone Hcl 1 Mg/Ml Syringe) 1 mg IVPUSH Q4H PRN; Protocol PRN Reason: Pain, Severe (Pain Scale 7-10) Last Admin: 07/17/22 09:51 Dose: 1 mg Documented By: JENNIFER Ceftriaxone Sodium 2 gm/ (Sodium Chloride) 50 mls @ 100 mls/hr IV Q24H [facility] Last Infusion: 07/17/22 14:03 Dose: 0 mls/hr Documented By: JENNIFER Methadone HCl (Methadone Hcl 20 Mg/2 Ml Oral.Conc) 65 mg PO DAILY [facility] Last Admin: 07/17/22 09:51 Dose: 65 mg Documented By: JENNIFER Nicotine (Nicotine 21 Mg Patch.Td24) 21 mg TRANSDERMA DAILY [facility] Last Admin: 07/17/22 09:51 Dose: 21 mg Documented By: JENNIFER Nicotine Polacrilex (Nicotine Polacrilex 2 Mg Gum) 2 mg BUCCAL Q2H PRN PRN Reason: Nicotine Cravings Ondansetron HCl (Ondansetron Hcl 4 Mg/2 Ml Vial) 4 mg IVPUSH Q8H PRN PRN Reason: Nausea and Vomiting Ondansetron HCl (Ondansetron Hcl 4 Mg/2 Ml Vial) 4 mg IVPUSH ONCE PRN PRN Reason: Nausea and Vomiting Oxycodone HCl (Oxycodone Hcl Immed Release 5 Mg Tablet) 10 mg PO Q6H PRN PRN Reason: Pain, Moderate (Pain Scale 4-6 Last Admin: 07/17/22 14:55 Dose: 10 mg Documented By: JENNIFER Pharmacy Consult (Consult Rx Perform Med Rec) 1 each MISCELLANE ONCE PRN PRN Reason: Consult order Pharmacy Consult (Consult Rx Vancomycin Dosing) 1 each MISCELLANE DAILY PRN PRN Reason: Consult order Prazosin HCl (Prazosin Hcl 1 Mg Capsule) 2 mg PO BEDTIME [facility]; Protocol Last Admin: 07/16/22 20:44 Dose: 2 mg Documented By: LUIS MIGUEL Quetiapine Fumarate (Quetiapine Fumarate 300 Mg Tablet) 300 mg PO BEDTIME [facility] Last Admin: 07/16/22 20:44 Dose: 300 mg Documented By: LUIS MIGUEL Sodium Chloride (0.9 % Sodium Chloride Flush 3 Ml Syringe) 3 ml IVFLUSH QSHIFT [facility] Last Admin: 07/17/22 14:57 Dose: 3 ml Documented By: JENNIFER Labs CBC & Chem 7: 07/14/22 06:44 07/17/22 06:45 Labs: Laboratory Results - last 24 hr 07/17/22 07/17/22 06:45 06:45 Anion Gap 16 Estim Creat Clear Calc 143.6 141.2 Estimated GFR > 60 > 60 Random Glucose 85 Calcium 9.1 Assessment and Plan (1) Anterior T wave inversion: Status: Acute (2) Streptococcal bacteremia: Status: Acute Plan 36-year-old male with past medical history of IV drug use presents to the hospital with right ankle pain, and various symptoms including fever, chills, nausea, poor oral intake found to have sepsis Sepsis secondary to septic arthritis of right ankle s/p joint aspiration by ortho - aspirate grew strep pyogenes s/p I&D in OR 07/11 Leukocytosis resolved on IV ceftriaxone per ID plan for transition to amoxicillin 500 bid for 3 weeks upon discharge On high-dose narcotics continue to gradually wean Strep pyogenes bacteremia Likely secondary to septic arthritis echo done 07/11 negative for vegetation Transitioned from vanco and Zosyn to Rocephin repeat blood cultures negative to date pleuritic chest pain CT angiogram poor study; V/Q negative for PE trop negative ekg with some t wave inversions - appears on previous EKG, but more prominent on repeat echo showed no WMA seen by Cardiology, recommends daily EKGs to monitor QTC , QTC normalized no further workup indicated acute hyponatremia Resolved suicidal ideation. No longer present rosanne [facility]ton psychiatry consulted - will need Care Team Eval when medically cleared OUD Addiction medicine following, has been started on methadone repeat EKG shows is stable Qtc hypomagnesemia improved with replacement depression, ADHD Seen by Psychiatry placed on Seroquel 300 mg at bedtime and BuSpar b.i.d. and as needed Tobacco dependence smoking cessation advised NRT DVT prophylaxis: Lovenox DISPO discharged home PT recommends forward wheel walker Patient requires ongoing inpatient hospitalization for management of bacteremia/septic joint, SI Quality Stroke Does the patient have a stroke diagnosis?: No VTE Prior VTE?: No VTE Risk Level:: Medical - moderate - high VTE Device Contraindication: Treatment Not Indicated VTE Drug Contraindication: N/A - Med Ordered
[2022-07-17 19:17] VITALS: BP 115/58; PULSE 96; RESP 16; TEMP 36.2; O2SAT 97
[2022-07-17] MEDS: Prazosin HCL 1 MG CAPSULE 2 MG PO (20:30)
[2022-07-17] MEDS: QUEtiapine Fumarate 300 MG TABLET PO (20:31)
[2022-07-17] MEDS: HYDROmorphone HCl 1 MG/ML SYRINGE 0.5 MG IVPUSH (20:32)
[2022-07-18] VITALS: BP 116/58; PULSE 84; RESP 18; TEMP 36.4; O2SAT 95
[2022-07-18] MEDS: HYDROmorphone HCl 1 MG/ML SYRINGE 0.5 MG IVPUSH (01:17)
[2022-07-18] MEDS: Enoxaparin Sodium 40 MG/0.4 ML SYRINGE SUBCUT (01:17)
[2022-07-18 04:00] VITALS: BP 104/57; PULSE 95; RESP 18; TEMP 36.4; O2SAT 98
[2022-07-18 07:50] VITALS: BP 120/61; PULSE 85; RESP 18; TEMP 36.9; O2SAT 97
[2022-07-18] MEDS: Amphetamine Mixed Salts 10 MG TABLET 30 MG PO ×2 (08:13→13:58)
[2022-07-18] MEDS: methADONE HCl 20 MG/2 ML ORAL.CONC 65 MG PO (08:14)
[2022-07-18] MEDS: cloNIDine HCL 0.1 MG TABLET PO (08:14)
[2022-07-18] MEDS: busPIRone HCl 5 MG TABLET 15 MG PO (08:14)
[2022-07-18] MEDS: 0.9 % Sodium Chloride Flush 3 ML SYRINGE IVFLUSH (08:14)
[2022-07-18] MEDS: Gabapentin 400 MG CAPSULE 800 MG PO ×2 (08:14→14:00)
[2022-07-18] MEDS: Nicotine 21 MG PATCH.TD24 TRANSDERMA (08:16)
--- NOTE | 2022-07-18 11:55 | MHC.CM.PN ---
Per ROUNDS discussion, Patient will be medically cleared for dc to home today self care. CM met with Patient at bedside and per Patient's request, CM provided Patient with 2 bus passes (Patient states that he has his own place in [place]).
[2022-07-18] MEDS: Amoxicillin 500 MG CAPSULE PO (11:58)
[2022-07-18] MEDS: Acetaminophen 325 MG TABLET 650 MG PO (12:06)
--- NOTE | 2022-07-18 12:44 | MHC.RECOVSUP ---
Recovery Support note: Last dose letter provided to patient At the request of CARE Team, this lead technical writer discussed with patient the circumstances that led up to his relapse. Education provided regarding methadone maintenance and withdrawal symptoms. Patient reports no questions at this time. Recovery Support Team available as needed.
--- NOTE | 2022-07-18 12:49 | MHC.CARE ---
Pt is a 36 y/o Estonian speaking, single, male who is previously known to the CARE Team through prior ED visits and inpatient stays.? On 07/09/22, pt presented to the ED with complaints of chest pain and fever for 2 days, cough, shortness of breath, ??Right ankle and left calf pain, recent relapse on heroin, SI, and an intentional overdose on or around 07/06/22.? Patient reports using IV heroin and cocaine daily, approximately 1 bundle.? Patient has been injecting in his legs. PT was admitted to the medical floors for medical concerns related to his foot. Pt has been medically cleared and is being assessed by the CARE Team to determine appropriate treatment recommendations. Pt has a hx of inpt hospitalizations, substance use, substance use treatment, SI and attempts.? Past documented hx of Bipolar I disorder, Opioid use disorder, substance use, and suicide attempts. Pt is alert and oriented x4 and is assessed in his room on the Intermediate Care Unit. He is lying in his bed, dressed in hospital attire, and is observed having an immobilized right foot.? He appears his stated age.?? His eye contact and speech are unremarkable.? He is engaged in the assessment, and demonstrates a broad affect.? He is forward thinking, discusses his plans, and is optimistic about his future,, discussing a desire to get a stable job after he secures permanent housing.? Pt denies SI, HI, and self-harm urges.? He reports that there was a mix up with his suboxone and he was off it for approximately 4 ore 5 days during which time he grew increasingly sick.? He stated he ?Tried to tough it out? but could not endure being sick any longer and used.? He stated he used not to get high but to stop being sick.? After using (He reports being clean for approximately a month), he felt bad, fell into a depression and began to develop suicidal thoughts.? He reports an intentional overdose days before he presented to the ED and stated someone had administered Narcan.? He denies AVH and does not appear to be delusional or experiencing sx of psychosis.? He reports being on methadone now and feeling ?Good?. Pt does not appear to be at risk at this time.? This case was discussed with Care Dehairer Elaina Cronin [facility]. Dr. Fallon was advised of the outcome of the Risk assessment. Recovery Team was asked to provide education regarding options should pt run out of his MAT medications again.
--- NOTE | 2022-07-18 13:11 | MHC.RECOVRN ---
Met with pt to follow up regarding recovery resources and supports. Pt plans to see sister after discharge, return to [place] [id number], and present to [facility] tomorrow morning. Provided with last dose letter. Pt declines other services at this time.
--- NOTE | 2022-07-18 13:57 | PM.DS ---
DS: Providers Provider Date of Service: 07/18/22 Date of admission: 07/10/22 01:01 Primary care physician: Raquel Gao MD Consults: 07/10/22 00:59 Consult to Infectious Diseases Routine Consulting Provider: Mable Tapia Reason for consultation: IVDU, sepsis Has provider been notified: No Consult to Orthopedics Routine Consulting Provider: Ricardo Cortez Reason for consultation: swollen ankle Has provider been notified: No 07/10/22 06:31 Consult to Psychiatry Routine Consulting Provider: Psych Covering Reason for consultation: Suicidal Has provider been notified: No 07/10/22 10:28 Addiction Medicine Stat Consulting Provider: Daphney Mcgovern Reason for consultation: OUD -- requesting methadone, known to you from previous admission 07/12/22 12:00 Consult to Cardiology Routine Consulting Provider: Kashmir Dennis Reason for consultation: abnormal EKG Has provider been notified: No 07/18/22 11:07 Consult to Care Team Stat Comment: Reason for consultation: stable for dc DS: Diagnosis Discharge Diagnosis (1) Anterior T wave inversion: Status: Acute (2) Streptococcal bacteremia: Status: Acute DS: Summary Hospital Course Hospital Course: History of presenting illness Date of Service: 07/10/22 Chief Complaint: leg pain, fever 36-year-old male with past medical history of IV drug use, history of endocarditis, history of septic pulmonary embolism, history of septic arthritis of the knee, history of DVT, depression, ADHD, presents to the hospital with complaints of significant pain in legs, as well as swelling of his right ankle for the past 2 days.? Patient reports that he has had poor oral intake, nausea, chills for the past 1 week.? He reports his symptoms worsening, up until last night when he tried to go to the bathroom but he had significant pain in his leg and therefore his legs almost gave out under him.? He reports low appetite, a fever of 103 at home, has significant diaphoresis, and pleuritic chest pain in the right lower chest.? Nonradiating.? The pain in the ankle is 9/10, going of his right leg, he has track perez along the medial calf area of both lower legs, he is also complaining of pain in his left calf region.? She is also complaining of being suicidal and having suicidal thoughts. All other review of systems negative except as mentioned On arrival to the ED patient's vitals are significant for a temperature of 103 degrees, heart rate of 100, respiratory rate of 21 Labs are significant for the VC count of 21, hemoglobin 12.5, hematocrit 38.6, PT of 16.7, INR of 1.4, sodium 130, magnesium of 1.5, total bili of 1.4, AST of the 39, ALT of 46, CRP of 13.16, ESR of 28, UA negative, UDS positive for opioids and fentanyl as well as cocaine Venous duplex of both lower extremities shows no DVT demonstrated in the bilateral lower extremities Chest CT angiogram shows no evidence of pulmonary emboli in this limited study secondary to poor bolus Right ankle x-ray shows no acute fracture dislocation And chest x-ray shows no acute intrathoracic disease Patient started on IV antibiotics will be admitted for further management. Hospital course 36-year-old male with past medical history of IV drug use presents to the hospital with right ankle pain, and various symptoms including fever, chills, nausea, poor oral intake found to have sepsis Sepsis secondary to septic arthritis of right ankle, patient underwent joint aspiration by ortho on 07/11 aspirate grew strep pyogenes, patient treated with IV ceftriaxone, repeat blood cultures normalized patient seen by infectious disease she recommended amoxicillin 500 mg t.i.d. for 3 weeks, leukocytosis resolved patient is now being discharged home with outpatient follow-up with Orthopedic surgery Strep pyogenes bacteremia Likely secondary to septic arthritis, echo done 07/11 negative for vegetation, repeat blood cultures are negative antibiotic as above pleuritic chest pain resolved patient underwent extensive workup CT angiogram poor study; V/Q negative for PE, trop negative,ekg with some t wave inversions - appears on previous EKG, but more prominent on repeat echo showed no WMA, seen by Cardiology, they recommended no further workup acute hyponatremia Resolved suicidal ideation depression, ADHD. Seen by Psychiatry placed on Seroquel 300 mg at bedtime and BuSpar b.i.d. and as needed, seen by care team they cleared patient for discharge OUD Seen by Addiction Team been started on methadone and is recommended outpatient follow-up at methadone clinic hypomagnesemia repleted and improved Tobacco dependence smoking cessation advised recommend to continue nicotine patch Time Spent with Patient Time attestation: Total time spent providing and/or coordinating discharge services: Discharge coordination time: Greater than 30 minutes Quality: Safe Use of Opioids Does Pt have an Active Cancer Diagnosis on the Problem List?: No Quality: Stroke Does the patient have a stroke diagnosis?: No Physical Exam Vital Signs: Vital Signs: Last Vital Signs Temp 98.5 F 07/18/22 07:50 Pulse 85 07/18/22 07:50 Resp 18 07/18/22 07:50 BP 120/61 07/18/22 07:50 Pulse Ox 97 07/18/22 07:50 O2 Del Method 07/18/22 07:50 O2 Flow Rate 2 07/11/22 14:24 BMI result Body Mass Index 21.1 Const: Other: General awake alert, diaphoretic, in no acute distress.? Neck supple no JVD. CVS? regular rate rhythm, Respiratory lungs clear to auscultation, no respiratory distress, no wheeze, no rhonchi. Gastrointestinal abdomen soft, nontender, bowel sounds audible, no guarding , no rigidity. Extremities right ankle incision dry and clean surrounding erythema, swelling and tenderness to palpation able to do flexion extension limited due to pain Neuro nonfocal , speech clear. Psych appropriate affect DS: Data Data Completed and Pending Completed studies during hospitalization [Text1]: Procedures Detoxification Services for Substance Abuse Treatment (11/13/21) Drainage of Left Knee Joint, Percutaneous Approach (06/11/20) Insertion of Infusion Device into Superior Vena Cava, Percutaneous Approach (06/11/20) Irrigation of Joints using Irrigating Substance, Percutaneous Endoscopic Approach (06/11/20) Ultrasonography of Superior Vena Cava, Guidance (06/11/20) Discharge Plan Discharge Anticipated Discharge Date/Time: 07/18/22 11:00 Patient Disposition: Home, Self-Care Discharge Diagnosis: Sepsis secondary to right ankle septic arthritis strep pyogenes bacteremia Hyponatremia Substance abuse Referrals: Raquel Gao MD [Primary Care Provider] - 1 Week Discharge Medications: New nicotine 21 mg/24 hr Patch 24 Hour 21 mg transdermal DAILY Qty: 30 0RF amoxicillin 500 mg Capsule 500 mg PO Q8H Qty: 62 0RF buspirone 5 mg Tablet 15 mg PO BID Qty: 60 0RF quetiapine 300 mg Tablet 300 mg PO BEDTIME Qty: 30 0RF oxycodone 5 mg tablet 5 mg PO Q6H PRN (Reason: pain, severe) Qty: 30 0RF Rx Instructions: Partial Fill upon patient request. (DME) walker Misc See Rx Instructions .Route Qty: 1 0RF Rx Instructions: As directed Continued prazosin 1 mg Capsule 2 mg PO BEDTIME albuterol sulfate 90 mcg/actuation Hfa Aerosol Inhaler 2 puff INHALATION Q4H PRN (Reason: Respiratory Distress) dextroamphetamine-amphetamine 30 mg tablet 1 tab PO BID gabapentin 800 mg Tablet 800 mg PO TID clonidine HCl 0.1 mg Tablet 0.1 mg PO DAILY Discontinued Vraylar 3 mg Capsule 3 mg PO DAILY Discharge Orders: Discharge Order (Routine); Ordered 07/18/22 Ordered By: Wilbert Fallon Diet: Advance to usual diet Activity on Discharge: walker Stand Alone Forms: Patient Portal Discharge page Care Plan Goals: Right ankle septic arthritis/bacteremia take by mouth amoxicillin 1 tablet 3 times a day for 3 weeks take oxycodone as needed for severe pain Follow-up at methadone clinic Health Concerns: Continue all medications as prescribed continue outpatient follow-up with primary psychiatrist and primary care physician Plan of Treatment: Outpatient follow-up with orthopedic surgeon Dr. Cortez call for appointment in 7-10 days for suture removal, use walker for ambulation weight-bearing as tolerated Assessment: As above Discharge Date/Time: 07/18/22 15:19
== END 2022-07-18 15:19 | disposition home or self-care (01) | DRG 710 ==
LOC: HO.ED 07-10 00:51 → HO.EDOVER 07-10 01:05 → HO.IMC 07-10 16:58
PROVIDERS: Emergency Medicine; Nurse Practitioner Acute Care; Nurse Practitioner Family; Orthopaedic Surgery; Physician Assistant Medical; Admitting Provider Internal Medicine; Emergency Provider Internal Medicine; PCP Family Medicine; Visit Provider Hospitalist
PROC: 0S9F0ZZ Drainage of Right Ankle Joint, Open Approach (ICD-10-PCS; principal; 2022-07-11 12:30)
DX: A41.9 Sepsis, unspecified organism (principal); M00.271 Other streptococcal arthritis, right ankle and foot; R45.851 Suicidal ideations; E87.1 Hypo-osmolality and hyponatremia; F33.1 Major depressive disorder, recurrent, moderate; F17.210 Nicotine dependence, cigarettes, uncomplicated; F90.9 Attention-deficit hyperactivity disorder, unspecified type; E83.42 Hypomagnesemia; F11.20 Opioid dependence, uncomplicated; R78.81 Bacteremia; B95.0 Streptococcus, group A, as the cause of diseases classified elsewhere; Z20.822 Contact with and (suspected) exposure to COVID-19; Z71.6 Tobacco abuse counseling; Z86.718 Personal history of other venous thrombosis and embolism; Z86.711 Personal history of pulmonary embolism; Z59.01 Sheltered homelessness; Z91.51 Personal history of suicidal behavior; Z88.8 Allergy status to other drugs, medicaments and biological substances; Z79.899 Other long term (current) drug therapy
CPT/HCPCS: 36415; 71046; 71275; 73600; 73701; 78580; 80048; 80076; 80202; 80307; 81001; 82077; 82565; 83605; 83735; 84484; 85025; 85027; 85379; 85610; 85652; 86140; 87040; 87070; 87073; 87077; 87147; 87186; 87205; 87635; 89051; 89060; 93005; 93306; 93970; 97116; 97161; 99285; A9540; J0690; J0696; J1100; J1170; J1650; J1885; J2250; J2270; J2405; J2543; J2795; J3010; J3370; J3475; Q9967

== ENCOUNTER 2022-07-31 00:44 | Inpatient (IN) | payer MEDICAID, SELFPAY ==
--- NOTE | ~2022-07-31 | MR_ITS ---
EXAMINATION: MR ANKLE WITHOUT AND WITH CONTRAST, RIGHT CLINICAL INFORMATION: Osteomyelitis. COMPARISON: Most recent right ankle radiographs dated 07/31/[address] dated 07/10/2022. TECHNIQUE: MRI of the ankle was performed before and after the intravenous administration of 6 mL gadolinium on a high-field scanner. FINDINGS: BONE AND ARTICULAR CARTILAGE: Patchy increased T2 and decreased T1 signal within the distal tibia, talus, and calcaneus adjacent to the tibiotalar and posterior subtalar joints. These areas demonstrate postcontrast enhancement with periosteal reaction and adjacent soft tissue edema. No talar osteochondral lesion. No concerning lytic or blastic osseous lesion. Small plantar calcaneal spur. ACHILLES TENDON: Intact. OTHER TENDONS: Fluid within the peroneal longus, peroneal brevis, posterior tibialis, and flexor digitorum longus tendon sheaths consistent with mild tenosynovitis. No transverse tendon tear or tendon retraction. LIGAMENTS: Attenuation of the anterior talofibular ligament consistent with a remote injury. No evidence of acute ligament injury. JOINT FLUID AND SOFT TISSUES: Moderate tibiotalar and posterior subtalar joint effusions with prominent synovial enhancement and adjacent soft tissue edema. Circumferential subcutaneous edema. PLANTAR FASCIA: Intact. SINUS TARSI AND TARSAL TUNNEL: Patent. MR/MR ankle RT wo/w con IMPRESSION: 1. Patchy marrow edema within the distal tibia, talus, and calcaneus adjacent to the tibiotalar and posterior subtalar joints with associated joint effusions and prominent synovial enhancement. Findings are concerning for an acute infectious or inflammatory arthropathy. Septic arthritis could be considered in the appropriate clinical setting. 2. Circumferential subcutaneous edema. 3. Mild tenosynovitis of the peroneal longus, peroneal brevis, posterior tibialis, and flexor digitorum longus tendons. No transverse tendon tear or tendon retraction. 4. Remote anterior talofibular ligament injury. No evidence of acute ligament injury.
--- NOTE | ~2022-07-31 | XR_ITS ---
EXAMINATION: XR ANKLE, RIGHT CLINICAL INFORMATION: Pain. Evaluate for infection. COMPARISON: CT right ankle 07/10/2022. X-ray right ankle 07/09/2022. TECHNIQUE: AP, lateral, and mortise views of the right ankle. FINDINGS: No acute fracture or subluxation. Small marginal osteophytes are noted consistent with mild osteoarthritis. Small well-corticated bone fragment adjacent to the lateral talar process consistent with remote injury. Similar findings adjacent to the medial malleolus. Query minimal developing osteopenia and cortical irregularity on the distal fibula. Increase soft tissue thickening circumferentially around the ankle when compared to 07/09/2022. XR/XR ankle RT min 3V IMPRESSION: 1. Query minimal developing osteopenia and cortical irregularity on the distal fibula, raising the possibility of early osteomyelitis. If indicated, consider further evaluation with an MR of the right ankle. 2. Increase soft tissue thickening around the ankle when compared to 07/09/2022.
[2022-07-31 01:09] VITALS: BP 130/75; PULSE 102; RESP 18; TEMP 36.8; O2SAT 98; BMI 20.3
--- NOTE | 2022-07-31 01:53 | PC.NURSE ---
In talking with RN patient states if it wasn't for his family he would blow my brains out Patient expressing that he just doesn't care anymore. [employer] tech assisted in changing patient over to scrubs. belongings placed in locker in POD. Right foot, red, swollen, hot, painful, skin taught. old sutures in place. Pt walks but does so with a limp and clearly uncomfortable.
[2022-07-31 02:23] LABS: COVID-19 Test Negative (Negative)
[2022-07-31 02:27] LABS: Amphetamine Screen Urine Not Detected (Not Detect); Barbiturates, Urine Not Detected (Not Detect); Benzodiazepines Screen Urine Not Detected (Not Detect); Cannabinoid Screen Urine POSITIVE (Not Detect); Cocaine Screen Urine POSITIVE (Not Detect); Fentanyl, urine POSITIVE (Not Detect); Opiate Screen Urine POSITIVE (Not Detect); Phencyclidine Screen Urine Not Detected (Not Detect)
[2022-07-31 03:01] LABS: Basophils Percent Auto 0.5 % (0-2); Eosinophils Absolute Auto 0.1 X10*3/uL (0.0-0.4); Eosinophils Percent Auto 1.7 % (0-4); Hematocrit 34.3 % (42.0-52.0); Hemoglobin 10.8 g/dl (14.0-18.0); Imm Gran Abs Auto 0.01 X10*3/uL (0.00-0.03); Imm Gran Pct Auto 0.2 % (0.0-0.4); Lymphocytes Absolute Auto 0.9 X10*3/uL (1.2-4.9); Lymphocytes Percent Auto 13.4 % (20-40); MANUAL DIFF FLAG NO; Mean Corpuscular HGB Conc 31.5 g/dl (31.0-36.0); Mean Corpuscular Hemoglobin 26.4 pg (27.0-33.0); Mean Corpuscular Volume 83.9 fL (80.0-98.0); Mean Platelet Volume 8.1 fL (9.4-12.4); Monocytes Absolute Auto 0.5 X10*3/uL (0.1-1.2); Neutrophils Absolute Auto 5.1 x10*3/uL (2.0-8.3); Neutrophils Percent Auto 77.2 % (45-73); Platelet Count 282 X10*3/uL (160-400); Red Blood Count 4.09 X10*6/uL (4.60-5.80); Red Cell Distribution Width 13.2 % (11.0-16.0); White Blood Count 6.6 X10*3/uL (4.8-10.8)
[2022-07-31 03:19] LABS: Anion Gap 13 (12-20); Blood Urea Nitrogen 15 mg/dL (9-16); Calcium 8.9 mg/dL (8.4-10.2); Carbon Dioxide 26 mmol/L (22-29); Chloride 102 mmol/L (96-108); Estimated Glomerular Filt Rate > 60; Glucose Random 75 mg/dL (60-115); Potassium 3.9 mmol/L (3.3-5.1); Sodium 137 mmol/L (135-145)
--- NOTE | 2022-07-31 04:04 | ED.GENADULT ---
HPI - General Adult General Chief complaint: Psychiatric Symptoms Stated complaint: ?Personal Time Seen by Provider: 07/31/22 02:18 Source: patient Mode of arrival: ambulatory Limitations: no limitations History of Present Illness HPI narrative: 36-year-old male history of IV drug abuse complicated with endocarditis and septic arthritis due to self IV shooting, 2 weeks ago patient injected himself in the right ankle area presented with right ankle infection that required orthopedic I&D for septic arthritis patient was hospitalized and discharged on amoxicillin stated that it was delayed taking outpatient amoxicillin, returned today for increased swelling of the right ankle with more pain and redness but no discharge, no fever, no chills. Patient is living in the [facility]. Related Data Home Medications Medication Instructions Recorded Confirmed albuterol sulfate 90 mcg/actuation 2 puff inhalation Q4H PRN 11/13/21 07/09/22 aerosol inhaler Respiratory Distress prazosin 1 mg capsule 2 mg PO BEDTIME 11/13/21 07/09/22 clonidine HCl 0.1 mg tablet 0.1 mg PO DAILY 07/09/22 07/09/22 dextroamphetamine-amphetamine 30 1 tab PO BID 07/09/22 07/09/22 mg tablet gabapentin 800 mg tablet 800 mg PO TID 07/09/22 07/09/22 Previous Rx's Medication Instructions Recorded amoxicillin 500 mg capsule 500 mg PO Q8H #62 caps 07/18/22 buspirone 5 mg tablet 15 mg PO BID #60 tabs 07/18/22 nicotine 21 mg/24 hr daily 21 mg transdermal DAILY #30 ea 07/18/22 transdermal patch oxycodone 5 mg tablet 5 mg PO Q6H PRN pain, severe #30 07/18/22 tabs quetiapine 300 mg tablet 300 mg PO BEDTIME #30 tabs 07/18/22 walker #1 ea 07/18/22 Allergies Allergy/AdvReac Type Severity Reaction Status Date / Time haloperidol [From HALDOL] AdvReac Intermediate LOCK JAW Verified 07/31/22 01:56 olanzapine [From ZYPREXA] AdvReac Unknown PT REPORTS Verified 07/31/22 01:56 FEELS LIKE I AM ON AN ACID TRIP Review of Systems Review of Systems: All other systems are reviewed and are negative Constitutional: Reports as per HPI and Reports no additional constitutional complaints Eyes: Reports as per HPI and Reports no additional eye complaints Reports system reviewed and no additional complaints, except as documented Cardiovascular: Reports as per HPI and Reports no additional cardiovascular complaints Respiratory: Reports as per HPI and Reports no additional respiratory complaints Gastrointestinal: Reports as per HPI and Reports no additional gastrointestinal complaints Genitourinary: Reports no additional female genitourinary complaints Musculoskeletal: Reports no additional musculoskeletal complaints Skin/Breast: Reports system reviewed and no additional complaints, except as docu Psychiatric: Reports no additional psychiatric complaints Endocrine: Reports no additional endocrine complaints Hematologic/Lymphatic: Reports no additional hematologic/lymphatic complaints Allergic/Immunologic: Reports no additional allergic/immunologic complaints Reports system reviewed and no additional complaints, except as documented and Reports Abnormal speech present PMFSH Past Medical History Medical History Abrasion of face ADHD ADHD (attention deficit hyperactivity disorder) Anterior T wave inversion DVT (deep venous thrombosis) Endocarditis Eye contusion Head injury Hepatitis C Heroin overdose IV drug abuse Left upper extremity deep vein thrombosis MDD (major depressive disorder), recurrent episode, moderate Mood disorder Multiple abrasions Opiate abuse, continuous Pulmonary emboli Severe sepsis Suicide attempt Surgical History History of left knee surgery Hx of eye surgery S/P left knee arthroscopy Social History Social History Household Members: None Housing: Other Housing Other:: hotel everyday Do you presently have visiting nurse or other home services: No Alcohol intake: never Patient Tobacco Use Status: Current everyday Tobacco user Tobacco use type: Cigarette Cigarette Packs Per Day: 1 Cigarettes Per Day: 30 Years Smoked: 15 e-Cigarette/Vaping Use: Never Used Second Hand Smoke Exposure: No Substance Use Type: Crack/Cocaine and IV Drugs Advance Directives: No Advance Directives Information Provided: No service: No Current occupational status: unemployed Sexual orientation: Straight/Heterosexual Physical Exam ED Vital Signs: Vital Signs - 24 hr 07/31/22 01:09 Temperature 98.2 F Pulse Rate 102 H Respiratory Rate 18 Blood Pressure 130/75 Pulse Oximetry 98 Oxygen Delivery Method Room Air BMI result Body Mass Index 20.3 vital signs have been reviewed as appeared to be correct. Blood pressure normal. Heart rate elevated. Respiration rate normal. Temperature normal. Oxygen saturation normal. Appearance: Alert. Oriented X3. No acute distress. Head: Normal external exam. Normocephalic. Atraumatic. No Browning signs noted. No raccoon eyes noted Eyes: PERRLA. EOMI. Conjunctiva and sclera normal. Eyelids normal. ENT: TM's Normal. Pharynx normal. Uvula midline. Moist mucous membranes. No trismus noted. No drooling noted. No muffled voice noted. Neck: Normal inspection. Neck supple. FROM. No adenopathy. Thyroid Normal. No meningeal signs. No neck mass noted. CVS: Normal heart rate and rhythm. Heart sound normal. No murmurs noted. Pulses normal throughout. Respiratory: No respiratory distress. Painless inspiration. Breath sounds normal. No wheezes/rales/rhonchi noted. Chest nontender. No accessory muscle usage noted or decreased air movement noted. Abdomen: Soft and nontender. Bowel sounds normal in all 4 quadrants. No distention noted. No organomegaly noted. No visible injury noted. Back: No CVA tenderness. Full range of motion noted. Skin: Skin warm and dry. Normal skin color. Normal skin turgor. No rashes/lesions/lacerations noted. Extremities: right ankle exam: Slight redness and hotness on the right ankle with swelling, surgical incision was erythema around the incision, suture is intact, no drainage from the incision. Neuro: Oriented X 3. Cranial nerve exam: II-XII are grossly intact No motor deficit. No sensory deficit. Reflexes normal. Course Course Course Narrative: 36-year-old male with history of IV drug abuse recently hospitalized for right ankle I and D for septic arthritis of the right ankle, patient was discharged on amoxicillin patient was not compliant with the medication as an outpatient ( patient live in [facility] has no transportation with delayed to pharmacy picking tech his medication from pharmacy ) return today for worsening of the right ankle pain and swelling, x-ray is suspicion for osteomyelitis. Will admit the patient, IV vancomycin and Zosyn, will need inpatient MRI. Medical Decision Making Lab Data Lab results reviewed: Yes I reviewed the patient's lab results. Result diagrams: 07/31/22 02:57 07/31/22 02:57 Labs: Lab Results 07/31/22 07/31/22 07/31/22 Range/Units 02:06 02:06 02:57 WBC 6.6 (4.8-10.8) X10*3/uL RBC 4.09 L (4.60-5.80) X10*6/uL Hgb 10.8 L (14.0-18.0) g/dl Hct 34.3 L (42.0-52.0) % MCV 83.9 (80.0-98.0) fL MCH 26.4 L (27.0-33.0) pg MCHC 31.5 (31.0-36.0) g/dl RDW 13.2 (11.0-16.0) % Plt Count 282 (160-400) X10*3/uL MPV 8.1 L (9.4-12.4) fL Immature Gran % (Auto) 0.2 (0.0-0.4) % Neut % (Auto) 77.2 H (45-73) % Lymph % (Auto) 13.4 L (20-40) % Jessamine % (Auto) 7.0 (2-11) % Eos % (Auto) 1.7 (0-4) % Baso % (Auto) 0.5 (0-2) % Lymph # (Auto) 0.9 L (1.2-4.9) X10*3/uL Jess[place] # (Auto) 0.5 (0.1-1.2) X10*3/uL Eos # (Auto) 0.1 (0.0-0.4) X10*3/uL Baso # (Auto) 0.0 (0.0-0.2) X10*3/uL Abs Immat Gran (auto) 0.01 (0.00-0.03) X10*3/uL Absolute Neuts (auto) 5.1 (2.0-8.3) x10*3/uL Absolute Nucleated RBC 0.000 (0.0-0.012) X10*3/uL Nucleated RBC % (auto) 0.0 (0.0-0.2) /100WBC Sodium (135-145) mmol/L Potassium (3.3-5.1) mmol/L Chloride (96-108) mmol/L Carbon Dioxide (22-29) mmol/L Anion Gap (12-20) BUN (9-16) mg/dL Creatinine (0.5-1.4) mg/dL Estim Creat Clear Calc Estimated GFR Random Glucose (60-115) mg/dL Calcium (8.4-10.2) mg/dL Urine Opiates Screen POSITIVE H (Not Detect) Urine Fentanyl Screen POSITIVE H (Not Detect) Ur Barbiturates Screen Not Detected (Not Detect) Ur Phencyclidine Scrn Not Detected (Not Detect) Ur Amphetamines Screen Not Detected (Not Detect) U Benzodiazepines Scrn Not Detected (Not Detect) Urine Cocaine Screen POSITIVE H (Not Detect) U Marijuana (THC) Screen POSITIVE H (Not Detect) COVID-19 (MARILY[facility]) Negative (Negative) COVID-19 Clin Com See Note 07/31/22 Range/Units 02:57 WBC (4.8-10.8) X10*3/uL RBC (4.60-5.80) X10*6/uL Hgb (14.0-18.0) g/dl Hct (42.0-52.0) % MCV (80.0-98.0) fL MCH (27.0-33.0) pg MCHC (31.0-36.0) g/dl RDW (11.0-16.0) % Plt Count (160-400) X10*3/uL MPV (9.4-12.4) fL Immature Gran % (Auto) (0.0-0.4) % Neut % (Auto) (45-73) % Lymph % (Auto) (20-40) % Jessamine % (Auto) (2-11) % Eos % (Auto) (0-4) % Baso % (Auto) (0-2) % Lymph # (Auto) (1.2-4.9) X10*3/uL Jessamine # (Auto) (0.1-1.2) X10*3/uL Eos # (Auto) (0.0-0.4) X10*3/uL Baso # (Auto) (0.0-0.2) X10*3/uL Abs Immat Gran (auto) (0.00-0.03) X10*3/uL Absolute Neuts (auto) (2.0-8.3) x10*3/uL Absolute Nucleated RBC (0.0-0.012) X10*3/uL Nucleated RBC % (auto) (0.0-0.2) /100WBC Sodium 137 (135-145) mmol/L Potassium 3.9 (3.3-5.1) mmol/L Chloride 102 (96-108) mmol/L Carbon Dioxide 26 (22-29) mmol/L Anion Gap 13 (12-20) BUN 15 (9-16) mg/dL Creatinine 0.68 (0.5-1.4) mg/dL Estim Creat Clear Calc 124.0 Estimated GFR > 60 Random Glucose 75 (60-115) mg/dL Calcium 8.9 (8.4-10.2) mg/dL Urine Opiates Screen (Not Detect) Urine Fentanyl Screen (Not Detect) Ur Barbiturates Screen (Not Detect) Ur Phencyclidine Scrn (Not Detect) Ur Amphetamines Screen (Not Detect) U Benzodiazepines Scrn (Not Detect) Urine Cocaine Screen (Not Detect) U Marijuana (THC) Screen (Not Detect) COVID-19 ([facility]ILY[facility]) (Negative) COVID-19 Clin Com Imaging Data Right ankle x-ray: Attestation: I personally reviewed and interpreted this imaging study as follows: Radiologist's impression: 1.? Query minimal developing osteopenia and cortical irregularity on the distal fibula, raising the possibility of early osteomyelitis. If indicated, consider further evaluation with an MR of the right ankle. 2.? Increase soft tissue thickening around the ankle when compared to 07/09/2022. ? Discharge Plan Discharge Clinical Impression: Ankle osteomyelitis, right Patient Disposition: Admitted As Inpatient
--- NOTE | 2022-07-31 04:37 | P.HPHOSP_ITS ---
History of Present Illness Date of Service: 07/31/22 Chief Complaint: Ankle pain and swelling This is a 36-year-old with pertinent history of IV drug use, history of endocarditis and septic pulmonary embolism, history of septic arthritis of the knee, history of mood disorder with ADHD and depression who presents to the emergency department for evaluation of right ankle pain and swelling. Patient was recently admitted and discharged on 07/18 with septic arthritis of the right ankle. He underwent joint aspiration by Ortho on 07/11 and was discharged on p.o. antibiotics. Patient states he did not take his p.o. antibiotic for 4-5 days after discharge due to limited transportation as he could not get to the pharmacy. Patient states since discharge, he has had worsening right ankle pain which has been constant, progressive and without any relieving factors. Also associated swelling, redness and tenderness. He denies fever, chills, nausea, vomiting, chest discomfort, palpitations, shortness of breath, abdominal pain, changes in urinary or bowel habits. in the emergency department, ankle x-ray was concerning for osteomyelitis Review of Systems Constitutional: Constitutional: Reports chills Cardiovascular: Cardiovascular: Reports no additional cardiovascular complaints Respiratory: Respiratory: Reports no additional respiratory complaints Gastrointestinal: Gastrointestinal: Reports no additional gastrointestinal complaints Genitourinary: Genitourinary: Reports no additional male genitourinary complaints Musculoskeletal: Musculoskeletal: Reports arthralgias and Reports joint swelling [facility] Medical History Abrasion of face ADHD ADHD (attention deficit hyperactivity disorder) Anterior T wave inversion DVT (deep venous thrombosis) Endocarditis Eye contusion Head injury Hepatitis C Heroin overdose IV drug abuse Left upper extremity deep vein thrombosis MDD (major depressive disorder), recurrent episode, moderate Mood disorder Multiple abrasions Opiate abuse, continuous Pulmonary emboli Severe sepsis Suicide attempt Surgical History History of left knee surgery Hx of eye surgery S/P left knee arthroscopy Social History Household Members: None Housing: Other Housing Other:: hotel everyday Do you presently have visiting nurse or other home services: No Alcohol intake: never Patient Tobacco Use Status: Current everyday Tobacco user Tobacco use type: Cigarette Cigarette Packs Per Day: 1 Cigarettes Per Day: 30 Years Smoked: 15 e-Cigarette/Vaping Use: Never Used Second Hand Smoke Exposure: No Substance Use Type: Crack/Cocaine and IV Drugs Advance Directives: No Advance Directives Information Provided: No service: No Current occupational status: unemployed Sexual orientation: Straight/Heterosexual Meds Allergies Allergy/AdvReac Type Severity Reaction Status Date / Time haloperidol [From HALDOL] AdvReac Intermediate LOCK JAW Verified 07/31/22 01:56 olanzapine [From ZYPREXA] AdvReac Unknown PT REPORTS Verified 07/31/22 01:56 FEELS LIKE I AM ON AN ACID TRIP Active Medications: Current Medications Acetaminophen (Acetaminophen 325 Mg Tablet) 650 mg PO Q6H PRN PRN Reason: Pain, Mild (Pain Scale 1-3) Vancomycin HCl 1,000 mg/ (Sodium Chloride) 270 mls @ 270 mls/hr IV ONCE ONE Stop: 07/31/22 04:55 Melatonin (Melatonin 3 Mg Tablet) 6 mg PO BEDTIME PRN PRN Reason: Insomnia Morphine Sulfate (Morphine Sulfate 4 Mg/Ml Cartridge) 4 mg IVPUSH Q4H PRN; Protocol PRN Reason: Pain, Severe (Pain Scale 7-10) Ondansetron HCl (Ondansetron Hcl 4 Mg/2 Ml Vial) 4 mg IVPUSH Q8H PRN PRN Reason: Nausea and Vomiting Pharmacy Consult (Consult Rx Vancomycin Dosing) 1 each MISCELLANE DAILY PRN PRN Reason: Consult order Pharmacy Consult (Consult Rx Perform Med Rec) 1 each MISCELLANE ONCE PRN PRN Reason: Consult order Sodium Chloride (0.9 % Sodium Chloride Flush 3 Ml Syringe) 3 ml IVFLUSH [facility] Medications Medication Instructions Recorded Confirmed Last Taken Type albuterol sulfate 90 mcg/actuation 2 puff inhalation Q4H PRN 11/13/21 07/09/22 Unknown History aerosol inhaler Respiratory Distress prazosin 1 mg capsule 2 mg PO BEDTIME 11/13/21 07/09/22 Unknown History clonidine HCl 0.1 mg tablet 0.1 mg PO DAILY 07/09/22 07/09/22 Unknown History dextroamphetamine-amphetamine 30 1 tab PO BID 07/09/22 07/09/22 Unknown History mg tablet gabapentin 800 mg tablet 800 mg PO TID 07/09/22 07/09/22 Unknown History Physical Exam Vital Signs and Narrative: Vital Signs: Last Vital Signs Temp 98.2 F 07/31/22 01:09 Pulse 102 H 07/31/22 01:09 Resp 18 07/31/22 01:09 BP 130/75 07/31/22 01:09 Pulse Ox 98 07/31/22 01:09 O2 Del Method 07/31/22 01:09 BMI result Body Mass Index 20.3 Middle-aged male lying in bed in no distress Neck supple, no JVD Tachycardic with regular rhythm, S1-S2 heard Regular breath sounds bilaterally, no wheezing or crackles appreciated Abdomen soft nontender, no guarding, no rigidity Patient is awake, alert and oriented to self, place, time and person ; no focal motor deficit Msk: ankle swelling with swelling, tenderness and erythema ; no drainage Psych: Normal mood No pedal edema Results Labs CBC and Chem 7: 07/31/22 02:57 07/31/22 02:57 Labs: Laboratory Results - last 24 hr 07/31/22 07/31/22 07/31/22 02:06 02:06 02:57 MCV 83.9 MCH 26.4 L MCHC 31.5 RDW 13.2 Plt Count 282 MPV 8.1 L Immature Gran % (Auto) 0.2 Neut % (Auto) 77.2 H Lymph % (Auto) 13.4 L [place] % (Auto) 7.0 Eos % (Auto) 1.7 Baso % (Auto) 0.5 Lymph # (Auto) 0.9 L [place] # (Auto) 0.5 Eos # (Auto) 0.1 Baso # (Auto) 0.0 Abs Immat Gran (auto) 0.01 Absolute Neuts (auto) 5.1 Absolute Nucleated RBC 0.000 Nucleated RBC % (auto) 0.0 Anion Gap Estim Creat Clear Calc Estimated GFR Random Glucose Calcium Urine Opiates Screen POSITIVE H Urine Fentanyl Screen POSITIVE H Ur Barbiturates Screen Not Detected Ur Phencyclidine Scrn Not Detected Ur Amphetamines Screen Not Detected U Benzodiazepines Scrn Not Detected Urine Cocaine Screen POSITIVE H U Marijuana (THC) Screen POSITIVE H COVID-19 (MARILYN) Negative COVID-19 Clin Com See Note 07/31/22 02:57 MCV MCH MCHC RDW Plt Count MPV Immature Gran % (Auto) Neut % (Auto) Lymph % (Auto) [place] % (Auto) Eos % (Auto) Baso % (Auto) Lymph # (Auto) [place] # (Auto) Eos # (Auto) Baso # (Auto) Abs Immat Gran (auto) Absolute Neuts (auto) Absolute Nucleated RBC Nucleated RBC % (auto) Anion Gap 13 Estim Creat Clear Calc 124.0 Estimated GFR > 60 Random Glucose 75 Calcium 8.9 Urine Opiates Screen Urine Fentanyl Screen Ur Barbiturates Screen Ur Phencyclidine Scrn Ur Amphetamines Screen U Benzodiazepines Scrn Urine Cocaine Screen U Marijuana (THC) Screen COVID-19 (MARILYN) COVID-19 Clin Com Imaging Radiologist's Impressions: Impressions Ankle X-Ray 07/31/22 02:45 IMPRESSION: 1. Query minimal developing osteopenia and cortical irregularity on the distal fibula, raising the possibility of early osteomyelitis. If indicated, consider further evaluation with an MR of the right ankle. 2. Increase soft tissue thickening around the ankle when compared to 07/09/2022. Assessment and Plan (1) Ankle osteomyelitis, right: Status: Acute (2) Anemia: Status: Acute (3) Opioid use disorder, severe, dependence: Status: Acute (4) Mood disorder: Status: Acute (5) ADHD: Status: Acute (6) Cocaine use: Status: Acute Plan This is a 36-year-old with pertinent history of IV drug use, history of end ocarditis and septic pulmonary embolism, history of septic arthritis of the knee, history of mood disorder with ADHD and depression who presents to the emergency department for evaluation of right ankle pain and swelling. #. Ankle swelling with imaging concerrn for acute right ankle osteomyelitis - patient received broad-spectrum IV antibiotics in the ER. Currently not septic, will hold antibiotics for higher yield bone culture. Consulting orthopedics and Infectious Disease. Obtaining MRI to further delineate the anatomy #. Mood disorder - continue home p.o. medications. No suicidal or homicidal ideation at the time of admission #. cocaine use disorder - monitor for withdrawal. Addiction Team and care team consult placed #. tobacco use disorder - smoking cessation advised. Nicotine patch will be provided in the hospital #. opioid use disorder with severe dependence - addiction team and care team consult as above #. Chronic normocytic anemia -hb above transfusion threshold Med rec pending DVT prophylaxis: Hold anticoagulation until orthopedic surgery evaluation full code NPO until orthopedic surgery evaluation Admit as inpatient and will require two night minimum hospital stay for IV antibiotics. Orthopedic surgery and infectious disease eval pending Quality Stroke Does the patient have a stroke diagnosis?: No VTE Prior VTE?: No VTE Risk Level:: Medical - moderate - high VTE Device Contraindication: Treatment Not Indicated VTE Drug Contraindication: Treatment Not Indicated
[2022-07-31 05:04] LABS: Lactic Acid 0.5 mmol/L (0.5-2.0)
[2022-07-31] MEDS: Piperacillin Sodium/Tazobactam 3.375 GM in 0.9 % Sodium Chloride 50 ML IV ×3 (05:37→19:03)
[2022-07-31] MEDS: vancomycin HCL 1,000 MG in 0.9 % Sodium Chloride 250 ML 270 MG IV (06:10)
[2022-07-31 07:42] VITALS: BP 136/66; PULSE 72; RESP 24; TEMP 36.8; O2SAT 97
--- NOTE | 2022-07-31 07:53 | P.CONOP_ITS ---
History of Present Illness HPI Consult date: 07/31/22 Chief complaint: Ankle pain Narrative: Mr. Howard is a 36-year-old male who presented to the emergency department yesterday evening for increased swelling in the right ankle. Patient status post right ankle I+D on 07/11/[address] Cortez. He was discharged on 07/18/2022 with oral antibiotics however it is unclear the patient is actually taking them as prescribed or not. Reportedly still has sutures in place. Denies any increase in pain. Ambulating in the hallway during rounds. Review of Systems Review of Systems: Yes all other systems are reviewed and are negative [facility] Past Medical History Medical History Abrasion of face ADHD ADHD (attention deficit hyperactivity disorder) Anterior T wave inversion DVT (deep venous thrombosis) Endocarditis Eye contusion Head injury Hepatitis C Heroin overdose IV drug abuse Left upper extremity deep vein thrombosis MDD (major depressive disorder), recurrent episode, moderate Mood disorder Multiple abrasions Opiate abuse, continuous Pulmonary emboli Severe sepsis Suicide attempt Surgical History Surgical History History of left knee surgery Hx of eye surgery S/P left knee arthroscopy Social History Social History Household Members: None Housing: Other Housing Other:: hotel everyday Do you presently have visiting nurse or other home services: No Alcohol intake: never Patient Tobacco Use Status: Current everyday Tobacco user Tobacco use type: Cigarette Cigarette Packs Per Day: 1 Cigarettes Per Day: 30 Years Smoked: 15 e-Cigarette/Vaping Use: Never Used Second Hand Smoke Exposure: No Substance Use Type: Crack/Cocaine and IV Drugs Advance Directives: No Advance Directives Information Provided: No service: No Current occupational status: unemployed Sexual orientation: Straight/Heterosexual Meds Allergies Allergy/AdvReac Type Severity Reaction Status Date / Time haloperidol [From HALDOL] AdvReac Intermediate LOCK JAW Verified 07/31/22 01:56 olanzapine [From ZYPREXA] AdvReac Unknown PT REPORTS Verified 07/31/22 01:56 FEELS LIKE I AM ON AN ACID TRIP Active Medications: Current Medications Acetaminophen (Acetaminophen 325 Mg Tablet) 650 mg PO Q6H PRN PRN Reason: Pain, Mild (Pain Scale 1-3) Melatonin (Melatonin 3 Mg Tablet) 6 mg PO BEDTIME PRN PRN Reason: Insomnia Nicotine (Nicotine 14 Mg Patch.Td24) 14 mg TRANSDERMA DAILY [facility] Last Admin: 07/31/22 05:39 Dose: Not Given Ondansetron HCl (Ondansetron Hcl 4 Mg/2 Ml Vial) 4 mg IVPUSH Q8H PRN PRN Reason: Nausea and Vomiting Pharmacy Consult (Consult Rx Perform Med Rec) 1 each MISCELLANE ONCE PRN PRN Reason: Consult order Sodium Chloride (0.9 % Sodium Chloride Flush 3 Ml Syringe) 3 ml IVFLUSH QSHIFT [facility] Home Medications Medication Instructions Recorded Confirmed Last Taken Type albuterol sulfate 90 mcg/actuation 2 puff inhalation Q4H PRN 11/13/21 07/31/22 Unknown History aerosol inhaler Respiratory Distress prazosin 1 mg capsule 2 mg PO BEDTIME 11/13/21 07/31/22 Unknown History clonidine HCl 0.1 mg tablet 0.1 mg PO DAILY PRN Anxiety 07/09/22 07/31/22 Unknown History dextroamphetamine-amphetamine 30 30 mg PO BID 07/09/22 07/31/22 Unknown History mg tablet gabapentin 800 mg tablet 800 mg PO TID 07/09/22 07/31/22 Unknown History Physical Exam Vital Signs: Vital Signs: Last Vital Signs Temp 98.2 F 07/31/22 07:42 Pulse 72 07/31/22 07:42 Resp 24 H 07/31/22 07:42 BP 136/66 07/31/22 07:42 Pulse Ox 97 07/31/22 07:42 O2 Del Method 07/31/22 07:42 BMI result Body Mass Index 20.3 Const: General: cooperative, healthy appearing and no acute distress Resp: Effort & Inspection: normal respiratory effort and able to speak in complete sentences Cardio: Rate: regular rate Peripheral pulses: Peripheral pulses 2+ throughout GI: Palpation (GI): Soft to palpation Skin: Lesions: no lesions Rashes: no rashes Extrem: Other: Right ankle sutures intact. No erythema. Mild tenderness to palpation of the medial and lateral malleolus. Able to dorsiflex and plantar flex. Sensation intact. No open areas. No areas of drainage. Patient ambulating in the hallway. NVI. Results Labs Result Diagrams: 07/31/22 11:48 07/31/22 11:48 Labs: Abnormal lab results 07/31/22 07/31/22 Range/Units 02:06 02:57 RBC 4.09 L (4.60-5.80) X10*6/uL Hgb 10.8 L (14.0-18.0) g/dl Hct 34.3 L (42.0-52.0) % MCH 26.4 L (27.0-33.0) pg MPV 8.1 L (9.4-12.4) fL Neut % (Auto) 77.2 H (45-73) % Lymph % (Auto) 13.4 L (20-40) % Lymph # (Auto) 0.9 L (1.2-4.9) X10*3/uL Urine Opiates Screen POSITIVE H (Not Detect) Urine Fentanyl Screen POSITIVE H (Not Detect) Urine Cocaine Screen POSITIVE H (Not Detect) U Marijuana (THC) Screen POSITIVE H (Not Detect) H & H 07/31/22 Range/Units 02:57 Hgb 10.8 L (14.0-18.0) g/dl Hct 34.3 L (42.0-52.0) % All other labs normal. Assessment and Plan (1) Septic arthritis of right ankle: Status: Acute - Continue abx - Pain management - Physical therapy for ROM - Patient is ambulating in the ED at the tie of consult - unlikely septic joint at this time. - Dr. Cortez spoke with Dr. Oreilly directly in regards to plan (2) Right ankle swelling: Status: Acute Procedures Date of Service Date of Service: 07/31/22
--- NOTE | 2022-07-31 08:42 | PHA.MEDREC ---
Pharmacy Consult ? Medication Reconciliation Pharmacy has completed the medication reconciliation. SPOKE WITH PT, HE MY LEAVE AMA
--- NOTE | 2022-07-31 10:07 | MHC.CARE ---
Pt is a 36 y/o Occitan speaking, single, male who is previously known to the CARE Team through prior ED visits and inpatient stays.? Today, pt presented to the ED with complaints of for increased swelling of the right ankle with more pain and redness.? Pt was discharged from this facility with a prescription for amoxicillin which he delayed taking.? During a conversation with his ED RN, pt stated that if it wasn't for his family he would blow my brains out .? ?Pt expressed that he no longer cares. ?CARE Team has been requested to consult for risk as pt has expressed he wishes to leave AMA.? ?Pt is being assessed by the CARE Team to determine risk. ?Pt has a hx of inpt hospitalizations, substance use, substance use treatment, SI and attempts.? Past documented hx of Bipolar I disorder, Opioid use disorder, substance use, and suicide attempts. Pt is alert and oriented x4 and is assessed in his room in the Main ED.? He is lying in his bed, dressed in hospital attire, and is observed with a bunched up blanket over his face.? He appears his stated age.?? His eye contact is unremarkable; his speech was soft and barely audible.? He is moderately engaged in the assessment, and appears guarded.? Pt denies SI, HI, and self-harm urges.? He reports feeling poorly about his substance use as he was in recovery prior and had been sober during his hospital stay in June.? Pt could not express why he made the statement he did. He denies AVH and does not appear to be delusional or experiencing sx of psychosis.? Pt does not appear to be at risk at this time.? He expressed an interest in speaking with the Recovery team and the provider caring for him, both were notified.? This case was discussed with Care Excavating Machine Operator Elaina Cronin [facility]. Dr. Oreilly was advised of the outcome of the Risk assessment.
--- NOTE | 2022-07-31 10:21 | MHC.RECOVRN ---
Briefly met with pt in 13H prior to pt being transported to MRI. Pt appears to be in withdrawal, reporting body aches, upset stomach, diaphoresis. Pt had last received 65 mg methadone on 07/18 while admitted here, pt did not continue with methadone at [facility] as planned. Discussed with Daphney Mcgovern APRN.
[2022-07-31] MEDS: Nicotine 14 MG PATCH.TD24 TRANSDERMA (11:10)
[2022-07-31] MEDS: methADONE HCl 20 MG/2 ML ORAL.CONC 40 MG PO (11:10)
[2022-07-31] MEDS: 0.9 % Sodium Chloride Flush 3 ML SYRINGE IVFLUSH ×2 (11:10→23:50)
--- NOTE | 2022-07-31 11:16 | PC.NURSE ---
medicated as ordered, this morning the pt stated he wanted to leave AMA, denies si/hi, seen by CARE team and cleared, pt is now rethinking leaving, wants to eat, NPO at this time but requesting confirmation from hospitalist/ortho, pt has been pleasant and cooperative all morning
[2022-07-31 11:25] VITALS: BP 126/74; PULSE 66; RESP 20; TEMP 36.6; O2SAT 98
--- NOTE | 2022-07-31 11:41 | MHC.CM.PN ---
Attempted to meet with patient in regards to discharge planning. Nursing care being provided by staff. Will attempt to meet again. Continue to monitor for d/c needs.
--- NOTE | 2022-07-31 11:51 | PHA.PROG ---
Admission Date/Time: July 31, 2022 04:32 Indication: Weight in k.967 kg Adjusted body weight in K.247 Bynum body weight in K.1 Obesity Dosing Indication % IBW: Serum Creatinine - Last 168 Hours 07/31/22 02:57 Creatinine 0.68 Estimated CrCl and GFR - Last 168 Hours 07/31/22 02:57 Estim Creat Clear Calc 124.0 Estimated GFR > 60 Vancomycin Loading Dose: 1000 MG Current Vancomycin Dosing Regimen: 1250 MG Q12 Vancomycin Monitoring using AUC goal of 400 - 600 range with trough as surrogate marker: Using dose of 1250 mg q12 based on expected AUC of 540 and previous dosing during last stay here. Date and Time for next Vancomycin Level to be drawn: 08/01 1400 Pharmacist Comments on Vancomycin Plan: Patient was here at the end of June and was therapeutic at 1250 q8. Renal function is good so starting at 1250 q12 and will get trough before 4th dose to reassess. Vancomycin dosing will take advantage of [employer] as a clinical decision support tool that uses Bayesian modeling to calculate individual patient's pharmacokinetic parameters and forecast the patient's drug concentration time course with the target goal AUC 24 range of 400 - 600 mg/L/hr.
[2022-07-31 12:04] LABS: MANUAL DIFF FLAG NO
[2022-07-31 12:05] LABS: Basophils Percent Auto 0.5 % (0-2); Eosinophils Absolute Auto 0.1 X10*3/uL (0.0-0.4); Eosinophils Percent Auto 1.8 % (0-4); Hematocrit 36.1 % (42.0-52.0); Hemoglobin 11.4 g/dl (14.0-18.0); Imm Gran Abs Auto 0.01 X10*3/uL (0.00-0.03); Imm Gran Pct Auto 0.2 % (0.0-0.4); Lymphocytes Absolute Auto 0.9 X10*3/uL (1.2-4.9); Lymphocytes Percent Auto 16.5 % (20-40); Mean Corpuscular HGB Conc 31.6 g/dl (31.0-36.0); Mean Corpuscular Hemoglobin 26.6 pg (27.0-33.0); Mean Corpuscular Volume 84.1 fL (80.0-98.0); Mean Platelet Volume 8.6 fL (9.4-12.4); Monocytes Absolute Auto 0.5 X10*3/uL (0.1-1.2); Monocytes Percent Auto 8.6 % (2-11); Neutrophils Percent Auto 72.4 % (45-73); Platelet Count 308 X10*3/uL (160-400); Red Blood Count 4.29 X10*6/uL (4.60-5.80); Red Cell Distribution Width 13.2 % (11.0-16.0); White Blood Count 5.5 X10*3/uL (4.8-10.8)
--- NOTE | 2022-07-31 12:06 | MHC.CM.PN ---
Received voicemail from [facility] requesting a return telephone call. Left voicemail at [phone] requesting return telephone call.
[2022-07-31 12:36] LABS: Alanine Aminotransferase 49 U/L (0-40); Albumin Level 3.3 g/dL (3.5-5.0); Alkaline Phosphatase 87 U/L (39-117); Anion Gap 14 (12-20); Aspartate Amino Transferase 50 U/L (5-37); Bilirubin Total 0.7 mg/dL (0.0-1.0); Blood Urea Nitrogen 12 mg/dL (9-16); Carbon Dioxide 24 mmol/L (22-29); Chloride 102 mmol/L (96-108); Creatinine Clr Calc Pharmacy 127.8; Estimated Glomerular Filt Rate > 60; Glucose Random 99 mg/dL (60-115); Potassium 3.8 mmol/L (3.3-5.1); Sodium 136 mmol/L (135-145); Total Protein 7.3 g/dL (6.5-8.0)
[2022-07-31] MEDS: vancomycin HCL 1,250 MG in 0.9 % Sodium Chloride 250 ML 166.67 MG IV (13:35)
--- NOTE | 2022-07-31 15:10 | P.PNADD_ITS ---
Subjective Subjective Date of Service: 07/31/22 Reason For Visit: Ankle pain Interim History: Patient currently admitted with question of osteomyelitis to right ankle. Known to this quality analyst/technical writer and ACS via previous admissions. Recently discharged from [facility] – [place]. Started on methadone during last admission and at discharge dose was 65mg. Per patient he did not follow up with OTP, so last dose of methadone was on 07/18. Patient appearing uncomfortable, reporting withdrawal sx. Reporting pain as we ll. Review of Systems Constitutional: Reports as per HPI, Reports chills and Reports malaise Mental Status Exam Mental Status Exam Patient Appearance: Unkempt (thin) Level of Consciousness: Awake and Alert Mood Description: Anxious Affect Description: Anxious Patient Cognition Impaired: No Thought Process: Intact Thought Content: positive for Intact Judgement: Fair Diagnostics Vital Signs (24Hr): Vital Signs - 24 hr 07/31/22 01:09 07/31/22 07:42 07/31/22 11:25 Temperature 98.2 F 98.2 F 97.9 F Pulse Rate 102 H 72 66 Respiratory Rate 18 24 H 20 Blood Pressure 130/75 136/66 126/74 Pulse Oximetry 98 97 98 Oxygen Delivery Method Room Air Room Air Room Air BMI result Body Mass Index 20.3 Labs Results: 07/31/22 11:48 07/31/22 11:48 Labs: Laboratory Results - last 48 hr 07/31/22 07/31/22 07/31/22 02:06 02:06 02:57 WBC 6.6 RBC 4.09 L Hgb 10.8 L Hct 34.3 L MCV 83.9 MCH 26.4 L MCHC 31.5 RDW 13.2 Plt Count 282 MPV 8.1 L Immature Gran % (Auto) 0.2 Neut % (Auto) 77.2 H Lymph % (Auto) 13.4 L [place] % (Auto) 7.0 Eos % (Auto) 1.7 Baso % (Auto) 0.5 Lymph # (Auto) 0.9 L [place] # (Auto) 0.5 Eos # (Auto) 0.1 Baso # (Auto) 0.0 Abs Immat Gran (auto) 0.01 Absolute Neuts (auto) 5.1 Absolute Nucleated RBC 0.000 Nucleated RBC % (auto) 0.0 Sodium Potassium Chloride Carbon Dioxide Anion Gap BUN Creatinine Estim Creat Clear Calc Estimated GFR Random Glucose Lactic Acid Calcium Total Bilirubin AST ALT Alkaline Phosphatase Total Protein Albumin Urine Opiates Screen POSITIVE H Urine Fentanyl Screen POSITIVE H Ur Barbiturates Screen Not Detected Ur Phencyclidine Scrn Not Detected Ur Amphetamines Screen Not Detected U Benzodiazepines Scrn Not Detected Urine Cocaine Screen POSITIVE H U Marijuana (THC) Screen POSITIVE H COVID-19 (MARILYN) Negative COVID-19 Clin Com See Note 07/31/22 07/31/22 07/31/22 02:57 04:37 11:48 WBC 5.5 RBC 4.29 L Hgb 11.4 L Hct 36.1 L MCV 84.1 MCH 26.6 L MCHC 31.6 RDW 13.2 Plt Count 308 MPV 8.6 L Immature Gran % (Auto) 0.2 Neut % (Auto) 72.4 Lymph % (Auto) 16.5 L [place] % (Auto) 8.6 Eos % (Auto) 1.8 Baso % (Auto) 0.5 Lymph # (Auto) 0.9 L [place] # (Auto) 0.5 Eos # (Auto) 0.1 Baso # (Auto) 0.0 Abs Immat Gran (auto) 0.01 Absolute Neuts (auto) 4.0 Absolute Nucleated RBC 0.000 Nucleated RBC % (auto) 0.0 Sodium 137 Potassium 3.9 Chloride 102 Carbon Dioxide 26 Anion Gap 13 BUN 15 Creatinine 0.68 Estim Creat Clear Calc 124.0 Estimated GFR > 60 Random Glucose 75 Lactic Acid 0.5 Calcium 8.9 Total Bilirubin AST ALT Alkaline Phosphatase Total Protein Albumin Urine Opiates Screen Urine Fentanyl Screen Ur Barbiturates Screen Ur Phencyclidine Scrn Ur Amphetamines Screen U Benzodiazepines Scrn Urine Cocaine Screen U Marijuana (THC) Screen COVID-19 (MARILYN) COVID-19 Clin Com 07/31/22 11:48 WBC RBC Hgb Hct MCV MCH MCHC RDW Plt Count MPV Immature Gran % (Auto) Neut % (Auto) Lymph % (Auto) [place] % (Auto) Eos % (Auto) Baso % (Auto) Lymph # (Auto) [place] # (Auto) Eos # (Auto) Baso # (Auto) Abs Immat Gran (auto) Absolute Neuts (auto) Absolute Nucleated RBC Nucleated RBC % (auto) Sodium 136 Potassium 3.8 Chloride 102 Carbon Dioxide 24 Anion Gap 14 BUN 12 Creatinine 0.66 Estim Creat Clear Calc 127.8 Estimated GFR > 60 Random Glucose 99 Lactic Acid Calcium 9.0 Total Bilirubin 0.7 AST 50 H ALT 49 H Alkaline Phosphatase 87 Total Protein 7.3 Albumin 3.3 L Urine Opiates Screen Urine Fentanyl Screen Ur Barbiturates Screen Ur Phencyclidine Scrn Ur Amphetamines Screen U Benzodiazepines Scrn Urine Cocaine Screen U Marijuana (THC) Screen COVID-19 (MARILYN) COVID-19 Clin Com Imaging Radiology Impressions: ITS Impressions Ankle X-Ray 07/31/22 02:45 IMPRESSION: 1. Query minimal developing osteopenia and cortical irregularity on the distal fibula, raising the possibility of early osteomyelitis. If indicated, consider further evaluation with an MR of the right ankle. 2. Increase soft tissue thickening around the ankle when compared to 07/09/2022. Ankle MRI 07/31/22 11:00 IMPRESSION: 1. Patchy marrow edema within the distal tibia, talus, and calcaneus adjacent to the tibiotalar and posterior subtalar joints with associated joint effusions and prominent synovial enhancement. Findings are concerning for an acute infectious or inflammatory arthropathy. Septic arthritis could be considered in the appropriate clinical setting. 2. Circumferential subcutaneous edema. 3. Mild tenosynovitis of the peroneal longus, peroneal brevis, posterior tibialis, and flexor digitorum longus tendons. No transverse tendon tear or tendon retraction. 4. Remote anterior talofibular ligament injury. No evidence of acute ligament injury. Medications Medications Current Medications Acetaminophen (Acetaminophen 325 Mg Tablet) 650 mg PO Q6H PRN PRN Reason: Pain, Mild (Pain Scale 1-3) Piperacillin Sod/Tazobactam (Sod 3.375 gm/ Sodium Chloride) 50 mls @ 100 mls/hr IV Q6H [facility] Last Admin: 07/31/22 11:13 Dose: 100 mls/hr Vancomycin HCl 1,250 mg/ (Sodium Chloride) 250 mls @ 166.667 mls/hr IV Q12H [facility] Last Admin: 07/31/22 13:35 Dose: 166.67 mls/hr Melatonin (Melatonin 3 Mg Tablet) 6 mg PO BEDTIME PRN PRN Reason: Insomnia Methadone HCl (Methadone Hcl 20 Mg/2 Ml Oral.Conc) 40 mg PO DAILY [facility] Last Admin: 07/31/22 11:10 Dose: 40 mg Nicotine (Nicotine 14 Mg Patch.Td24) 14 mg TRANSDERMA DAILY [facility] Last Admin: 07/31/22 11:10 Dose: 14 mg Ondansetron HCl (Ondansetron Hcl 4 Mg/2 Ml Vial) 4 mg IVPUSH Q8H PRN PRN Reason: Nausea and Vomiting Oxycodone HCl (Oxycodone Hcl Immed Release 5 Mg Tablet) 5 mg PO Q4H PRN PRN Reason: Pain, Moderate (Pain Scale 4-6 Pharmacy Consult (Consult Rx Perform Med Rec) 1 each MISCELLANE ONCE PRN PRN Reason: Consult order Pharmacy Consult (Consult Rx Vancomycin Dosing) 1 each MISCELLANE DAILY PRN PRN Reason: Consult order Sodium Chloride (0.9 % Sodium Chloride Flush 3 Ml Syringe) 3 ml IVFLUSH QSHIFT [facility] Last Admin: 07/31/22 11:10 Dose: 3 ml Allergies Allergies Allergy/AdvReac Type Severity Reaction Status Date / Time haloperidol [From HALDOL] AdvReac Intermediate LOCK JAW Verified 07/31/22 01:56 olanzapine [From ZYPREXA] AdvReac Unknown PT REPORTS Verified 07/31/22 01:56 FEELS LIKE I AM ON AN ACID TRIP Assessment & Plan Assessment & Plan (1) Opioid use disorder, severe, dependence: Status: Acute Code(s): F11.20 - Opioid dependence, uncomplicated Assessment and Plan: * methadone 40mg X1 * methadone 50mg tomorrow * will likely require higher doses of pain medications given opioid tolerance * will continue to follow * discussed case with attending provider I spent ___35___ minutes with the patient and/or on the patient floor today, g reater than?50% of which was spent counseling/coordinating care.
--- NOTE | 2022-07-31 15:23 | HO.PM.IMPN ---
Subjective Subjective Date of Service: 07/31/22 Interval History: Initially patient requesting to sign out AMA; history of suicide attempts and ideation in past. Seen by care team ... No SI. Agrees to stay for IV antibiotics. Denies pain with ambulation Review of Systems Denies fever chills Denies shortness of breath Denies nausea vomiting diarrhea Denies chest pain Physical Exam Vital Signs: Vital Signs: Last Vital Signs Temp 97.9 F 07/31/22 11:25 Pulse 66 07/31/22 11:25 Resp 20 07/31/22 11:25 BP 126/74 07/31/22 11:25 Pulse Ox 98 07/31/22 11:25 O2 Del Method 07/31/22 11:25 BMI result Body Mass Index 20.3 Const: Other: No acute distress Resp: Other: No S4; positive S1-S2; no S3 murmurs rubs or gallops Cardio: Other: No S4; positive S1-S2; no S3 murmurs rubs or gallops GI: Other: Soft nontender nondistended normoactive bowel sounds Extrem: Other: Suture line clean dry and intact. Mild pain to bimalleolar palpation. Full movement without pain. Ambulates without discomfort Objective Data Active Medications Acetaminophen (Acetaminophen 325 Mg Tablet) 650 mg PO Q6H PRN PRN Reason: Pain, Mild (Pain Scale 1-3) Piperacillin Sod/Tazobactam (Sod 3.375 gm/ Sodium Chloride) 50 mls @ 100 mls/hr IV Q6H [facility] Last Admin: 07/31/22 11:13 Dose: 100 mls/hr Documented By: NANCI Vancomycin HCl 1,250 mg/ (Sodium Chloride) 250 mls @ 166.667 mls/hr IV Q12H [facility] Last Admin: 07/31/22 13:35 Dose: 166.67 mls/hr Documented By: NANCI Melatonin (Melatonin 3 Mg Tablet) 6 mg PO BEDTIME PRN PRN Reason: Insomnia Methadone HCl (Methadone Hcl 20 Mg/2 Ml Oral.Conc) 40 mg PO DAILY [facility] Last Admin: 07/31/22 11:10 Dose: 40 mg Documented By: NANCI Nicotine (Nicotine 14 Mg Patch.Td24) 14 mg TRANSDERMA DAILY [facility] Last Admin: 07/31/22 11:10 Dose: 14 mg Documented By: NANCI Ondansetron HCl (Ondansetron Hcl 4 Mg/2 Ml Vial) 4 mg IVPUSH Q8H PRN PRN Reason: Nausea and Vomiting Oxycodone HCl (Oxycodone Hcl Immed Release 5 Mg Tablet) 5 mg PO Q4H PRN PRN Reason: Pain, Moderate (Pain Scale 4-6 Pharmacy Consult (Consult Rx Perform Med Rec) 1 each MISCELLANE ONCE PRN PRN Reason: Consult order Pharmacy Consult (Consult Rx Vancomycin Dosing) 1 each MISCELLANE DAILY PRN PRN Reason: Consult order Sodium Chloride (0.9 % Sodium Chloride Flush 3 Ml Syringe) 3 ml IVFLUSH QSHIFT [facility] Last Admin: 07/31/22 11:10 Dose: 3 ml Documented By: NANCI Labs CBC & Chem 7: 07/31/22 11:48 07/31/22 11:48 Labs: Laboratory Results - last 24 hr 07/31/22 07/31/22 07/31/22 02:06 02:06 02:57 MCV 83.9 MCH 26.4 L MCHC 31.5 RDW 13.2 Plt Count 282 MPV 8.1 L Immature Gran % (Auto) 0.2 Neut % (Auto) 77.2 H Lymph % (Auto) 13.4 L [place] % (Auto) 7.0 Eos % (Auto) 1.7 Baso % (Auto) 0.5 Lymph # (Auto) 0.9 L [facility] # (Auto) 0.5 Eos # (Auto) 0.1 Baso # (Auto) 0.0 Abs Immat Gran (auto) 0.01 Absolute Neuts (auto) 5.1 Absolute Nucleated RBC 0.000 Nucleated RBC % (auto) 0.0 Anion Gap Estim Creat Clear Calc Estimated GFR Random Glucose Lactic Acid Calcium Total Bilirubin AST ALT Alkaline Phosphatase Total Protein Albumin Urine Opiates Screen POSITIVE H Urine Fentanyl Screen POSITIVE H Ur Barbiturates Screen Not Detected Ur Phencyclidine Scrn Not Detected Ur Amphetamines Screen Not Detected U Benzodiazepines Scrn Not Detected Urine Cocaine Screen POSITIVE H U Marijuana (THC) Screen POSITIVE H COVID-19 (MARILYN) Negative COVID-19 Clin Com See Note 07/31/22 07/31/22 07/31/22 02:57 04:37 11:48 MCV 84.1 MCH 26.6 L MCHC 31.6 RDW 13.2 Plt Count 308 MPV 8.6 L Immature Gran % (Auto) 0.2 Neut % (Auto) 72.4 Lymph % (Auto) 16.5 L [facility] % (Auto) 8.6 Eos % (Auto) 1.8 Baso % (Auto) 0.5 Lymph # (Auto) 0.9 L [facility] # (Auto) 0.5 Eos # (Auto) 0.1 Baso # (Auto) 0.0 Abs Immat Gran (auto) 0.01 Absolute Neuts (auto) 4.0 Absolute Nucleated RBC 0.000 Nucleated RBC % (auto) 0.0 Anion Gap 13 Estim Creat Clear Calc 124.0 Estimated GFR > 60 Random Glucose 75 Lactic Acid 0.5 Calcium 8.9 Total Bilirubin AST ALT Alkaline Phosphatase Total Protein Albumin Urine Opiates Screen Urine Fentanyl Screen Ur Barbiturates Screen Ur Phencyclidine Scrn Ur Amphetamines Screen U Benzodiazepines Scrn Urine Cocaine Screen U Marijuana (THC) Screen COVID-19 (MARILYN) COVID-19 [place] Com 07/31/22 11:48 MCV MCH MCHC RDW Plt Count MPV Immature Gran % (Auto) Neut % (Auto) Lymph % (Auto) [facility] % (Auto) Eos % (Auto) Baso % (Auto) Lymph # (Auto) [facility] # (Auto) Eos # (Auto) Baso # (Auto) Abs Immat Gran (auto) Absolute Neuts (auto) Absolute Nucleated RBC Nucleated RBC % (auto) Anion Gap 14 Estim Creat Clear Calc 127.8 Estimated GFR > 60 Random Glucose 99 Lactic Acid Calcium 9.0 Total Bilirubin 0.7 AST 50 H ALT 49 H Alkaline Phosphatase 87 Total Protein 7.3 Albumin 3.3 L Urine Opiates Screen Urine Fentanyl Screen Ur Barbiturates Screen Ur Phencyclidine Scrn Ur Amphetamines Screen U Benzodiazepines Scrn Urine Cocaine Screen U Marijuana (THC) Screen COVID-19 (MARILYN) COVID-19 Clin Com Assessment and Plan (1) Septic arthritis of right ankle: Status: Acute (2) Anemia: Status: Acute (3) Opioid use disorder, severe, dependence: Status: Acute Plan This is a 36-year-old with pertinent history of IV drug use, history of endocarditis and septic pulmonary embolism, history of septic arthritis of the knee, history of mood disorder with ADHD and depression who presents to the emergency department for evaluation of right ankle pain and swelling. 1. Septic arthritis right ankle -continue vancomycin/Zosyn -MRI consistent with septic arthritis or inflammatory arthritis; no evidence of osteomyelitis -will discuss with ID 2. Polysubstance abuse -appreciate addiction medicine input -appropriate to increase oxycodone given acute pain 3.Chronic normocytic anemia -follow clinically Lovenox Full code Will require ongoing hospitalization for IV antibiotics to treat a septic right ankle joint Quality Stroke Does the patient have a stroke diagnosis?: No VTE Prior VTE?: No VTE Risk Level:: Medical - moderate - high VTE Device Contraindication: Treatment Not Indicated VTE Drug Contraindication: Treatment Not Indicated
[2022-07-31 16:00] VITALS: BP 110/64; PULSE 60; RESP 16; TEMP 36.9; O2SAT 98
--- NOTE | 2022-07-31 16:38 | PC.NURSE ---
pt sleeping, vss, RR even and unlabored, no new orders at this time.
[2022-07-31] MEDS: oxyCODONE HCl Immed Release 5 MG TABLET PO (19:13)
[2022-07-31] MEDS: Acetaminophen 325 MG TABLET 650 MG PO (19:14)
[2022-07-31 19:49] VITALS: BP 104/55; PULSE 59; RESP 16; TEMP 36.8; O2SAT 87
--- NOTE | 2022-07-31 19:56 | PC.NURSE ---
pt a&ox3, vss, ate 50% of dinner and turkey sandwich, reporting 8/10 pain in R foot, medicated per provider order. no new orders at this time.
--- NOTE | 2022-07-31 22:58 | P.CNID_ITS ---
History of Present Illness Data of Consult Service Date: 07/31/22 Requesting physician: Isidro Oreilly Primary Care Provider: Raquel Gao MD HPI Reason for consult: right osteomyelitis He has right ankle pain for a week and redness and swelling. He had antibiotics in past and foot surgery He is on Vancomycin and Zosyn Review of Systems Review of Systems: Yes all other systems are reviewed and are negative PMFSH Past Medical History Medical History Abrasion of face ADHD ADHD (attention deficit hyperactivity disorder) Anterior T wave inversion DVT (deep venous thrombosis) Endocarditis Eye contusion Head injury Hepatitis C Heroin overdose IV drug abuse Left upper extremity deep vein thrombosis MDD (major depressive disorder), recurrent episode, moderate Mood disorder Multiple abrasions Opiate abuse, continuous Pulmonary emboli Severe sepsis Suicide attempt Family History Family history: reviewed and not pertinent Surgical History Surgical History History of left knee surgery Hx of eye surgery S/P left knee arthroscopy Social History Social History Household Members: None Housing: Other Housing Other:: hotel everyday Do you presently have visiting nurse or other home services: No Alcohol intake: never Patient Tobacco Use Status: Current everyday Tobacco user Tobacco use type: Cigarette Cigarette Packs Per Day: 1 Cigarettes Per Day: 30 Years Smoked: 15 e-Cigarette/Vaping Use: Never Used Second Hand Smoke Exposure: No Substance Use Type: Crack/Cocaine and IV Drugs Advance Directives: No Advance Directives Information Provided: No service: No Current occupational status: unemployed Sexual orientation: Straight/Heterosexual Meds Allergies Allergy/AdvReac Type Severity Reaction Status Date / Time haloperidol [From HALDOL] AdvReac Intermediate LOCK JAW Verified 07/31/22 01:56 olanzapine [From ZYPREXA] AdvReac Unknown PT REPORTS Verified 07/31/22 01:56 FEELS LIKE I AM ON AN ACID TRIP Active Medications: Current Medications Acetaminophen (Acetaminophen 325 Mg Tablet) 650 mg PO Q6H PRN PRN Reason: Pain, Mild (Pain Scale 1-3) Last Admin: 07/31/22 19:14 Dose: 650 mg Piperacillin Sod/Tazobactam (Sod 3.375 gm/ Sodium Chloride) 50 mls @ 100 mls/hr IV Q6H [facility] Last Infusion: 07/31/22 19:55 Dose: Infused Vancomycin HCl 1,250 mg/ (Sodium Chloride) 250 mls @ 166.667 mls/hr IV Q12H [facility] Last Infusion: 07/31/22 19:03 Dose: Infused Melatonin (Melatonin 3 Mg Tablet) 6 mg PO BEDTIME PRN PRN Reason: Insomnia Methadone HCl (Methadone Hcl 20 Mg/2 Ml Oral.Conc) 50 mg PO DAILY [facility] Nicotine (Nicotine 14 Mg Patch.Td24) 14 mg TRANSDERMA DAILY [facility] Last Admin: 07/31/22 11:10 Dose: 14 mg Ondansetron HCl (Ondansetron Hcl 4 Mg/2 Ml Vial) 4 mg IVPUSH Q8H PRN PRN Reason: Nausea and Vomiting Oxycodone HCl (Oxycodone Hcl Immed Release 5 Mg Tablet) 5 mg PO Q4H PRN PRN Reason: Pain, Moderate (Pain Scale 4-6 Last Admin: 07/31/22 19:13 Dose: 5 mg Pharmacy Consult (Consult Rx Perform Med Rec) 1 each MISCELLANE ONCE PRN PRN Reason: Consult order Pharmacy Consult (Consult Rx Vancomycin Dosing) 1 each MISCELLANE DAILY PRN PRN Reason: Consult order Sodium Chloride (0.9 % Sodium Chloride Flush 3 Ml Syringe) 3 ml IVFLUSH QSHIFT [facility] Last Admin: 07/31/22 16:46 Dose: Not Given Home Medications Medication Instructions Recorded Confirmed Last Taken Type albuterol sulfate 90 mcg/actuation 2 puff inhalation Q4H PRN 11/13/21 07/31/22 Unknown History aerosol inhaler Respiratory Distress prazosin 1 mg capsule 2 mg PO BEDTIME 11/13/21 07/31/22 Unknown History clonidine HCl 0.1 mg tablet 0.1 mg PO DAILY PRN Anxiety 07/09/22 07/31/22 Unknown History dextroamphetamine-amphetamine 30 30 mg PO BID 07/09/22 07/31/22 Unknown History mg tablet gabapentin 800 mg tablet 800 mg PO TID 07/09/22 07/31/22 Unknown History Physical Exam Vital Signs: Vital Signs: Last Vital Signs Temp 98.2 F 07/31/22 19:49 Pulse 59 07/31/22 19:49 Resp 16 07/31/22 19:49 BP 104/55 L 07/31/22 19:49 Pulse Ox 87 L 07/31/22 19:49 O2 Del Method 07/31/22 19:49 BMI result Body Mass Index 20.3 Const: General: cooperative HEENT: Head: Yes normal to inspection Face and sinus: Yes normal facial exam Mouth: Normal oral and palatal mucosa present Teeth and gingiva: dentition normal Eyes: General: appearance normal, both eyes and all related structures Pupils: Equal, round and reactive pupils present Resp: Effort & Inspection: normal respiratory effort Cardio: Rate: regular rate Rhythm: regular rhythm GI: Palpation (GI): Soft to palpation and nontender : General: Yes no CVA tenderness Back/Spine/Pelvis: Back: no CVA tenderness Skin: General skin exam: no rashes or lesions noted Neuro: General: moves all extremities Cranial nerves: Yes Equal, round and reactive pupils present Extrem: Other: mild redness on bending ankle lateral malleolus scab and sutures foot clear General: Yes normal to inspection Psych: Appearance: grossly normal Results Labs CBC & Chem 7: 07/31/22 11:48 07/31/22 11:48 Labs: Short CBC 07/31/22 07/31/22 Range/Units 02:57 11:48 WBC 6.6 5.5 (4.8-10.8) X10*3/uL Hgb 10.8 L 11.4 L (14.0-18.0) g/dl Hct 34.3 L 36.1 L (42.0-52.0) % Plt Count 282 308 (160-400) X10*3/uL BMP 07/31/22 07/31/22 02:57 11:48 Sodium 137 136 Potassium 3.9 3.8 Chloride 102 102 Carbon Dioxide 26 24 BUN 15 12 Creatinine 0.68 0.66 Calcium 8.9 9.0 Liver Function 07/31/22 Range/Units 11:48 Total Bilirubin 0.7 (0.0-1.0) mg/dL AST 50 H (5-37) U/L ALT 49 H (0-40) U/L Alkaline Phosphatase 87 (39-117) U/L Albumin 3.3 L (3.5-5.0) g/dL Assessment and Plan (1) Ankle osteomyelitis, right: Status: Acute (2) Septic arthritis of right ankle: Status: Acute He has possible infection ankle joint He has blood cultures pending There is positive staph aureus and gram negative Plan Continue Vancomycin and Zosyn Await cultures especially from ankle joint. May need mcfp IV antiibiotics
[2022-07-31 23:04] VITALS: BP 129/67; PULSE 52; RESP 22; TEMP 36.5; O2SAT 100
[2022-08-01] VITALS (8 sets, daily range): BP systolic 104–131; BP diastolic 49–70; PULSE 52–76; RESP 10–18; TEMP 36.3–36.9; O2SAT 94–99; BMI 21.9
--- NOTE | 2022-08-01 | ECG_ITS ---
Test Reason : bradycardia Blood Pressure : / mmHG Vent. Rate : 061 BPM Atrial Rate : 061 BPM P-R Int : 144 ms QRS Dur : 080 ms QT Int : 454 ms P-R-T Axes : 029 -01 006 degrees QTc Int : 457 ms Normal sinus rhythm Minimal voltage criteria for LVH, may be normal variant ( R in aVL ) Nonspecific T wave abnormality Abnormal ECG When compared with ECG of 14-JUL-2022 08:47, QT has lengthened Referred By: Elijah Vallecillo Electronically Signed By:LEODAN GANN MD
[2022-08-01] MEDS: Piperacillin Sodium/Tazobactam 3.375 GM in 0.9 % Sodium Chloride 50 ML IV ×5 (01:08→22:01)
[2022-08-01] MEDS: busPIRone HCl 5 MG TABLET 15 MG PO ×3 (01:09→19:59)
[2022-08-01] MEDS: QUEtiapine Fumarate 300 MG TABLET PO ×2 (01:09→19:59)
[2022-08-01] MEDS: Gabapentin 400 MG CAPSULE 800 MG PO ×4 (01:10→19:59)
[2022-08-01] MEDS: oxyCODONE HCl Immed Release 5 MG TABLET PO ×2 (01:10→04:13)
--- NOTE | 2022-08-01 01:10 | PC.NURSE ---
Pt resting HR 42. EKG done, MD Vallecillo notified. Pt cleared for night time meds.
--- NOTE | 2022-08-01 03:11 | PC.NURSE ---
This RN notified MD Vallecillo of pt low HR and sent a strip of monitor. Pt BP stable at 124/57 pt reports no new symptoms at this time.
[2022-08-01 04:38] LABS: Anion Gap 13 (12-20); Blood Urea Nitrogen 12 mg/dL (9-16); Calcium 9.2 mg/dL (8.4-10.2); Carbon Dioxide 25 mmol/L (22-29); Chloride 110 mmol/L (96-108); Creatinine Clr Calc Pharmacy 113.9; Estimated Glomerular Filt Rate > 60; Glucose Random 88 mg/dL (60-115); Potassium 4.4 mmol/L (3.3-5.1); Sodium 144 mmol/L (135-145)
[2022-08-01] MEDS: vancomycin HCL 1,250 MG in 0.9 % Sodium Chloride 250 ML 166.7 MG IV (06:01)
--- NOTE | 2022-08-01 06:41 | HE.PHANOTE ---
RE VANCO 3RD DOSE GIVEN LATE DUE TO MAR DOCUMENTING ERROR (BAG WAS STARTED @1400 BUT DIDNT STOP UNTIL 5 HOURS LATER) SO RN STARTED NEXT BAG ABOUT 4 HOURS LATE. RETIMED TROUGH AND NEXT DOSE; LEVEL DUE 08/01 @1600. PIPPA
[2022-08-01 10:00] LABS: Estimated Glomerular Filt Rate > 60
--- NOTE | 2022-08-01 11:11 | PC.NURSE ---
0930- Patient noted to be very drowsy. Awakes to stimuli but falls right back to sleep. AM meds held. Dr. Oreilly made aware. No new orders at this time.
--- NOTE | 2022-08-01 14:57 | P.PNIM_ITS ---
Subjective Subjective Date of Service: 08/01/22 Interval History: No acute issues overnight. Seeking detox Review of Systems Denies fever chills Denies shortness of breath Denies nausea vomiting diarrhea Denies chest pain Physical Exam Vital Signs: Vital Signs: Last Vital Signs Temp 98.4 F 08/01/22 07:08 Pulse 68 08/01/22 07:08 Resp 10 L 08/01/22 07:08 BP 117/68 08/01/22 07:08 Pulse Ox 98 08/01/22 07:08 O2 Del Method 08/01/22 07:08 BMI result Body Mass Index 20.3 Const: Other: No acute distress Resp: Other: No S4; positive S1-S2; no S3 murmurs rubs or gallops Cardio: Other: No S4; positive S1-S2; no S3 murmurs rubs or gallops GI: Other: Soft nontender nondistended normoactive bowel sounds Extrem: Other: Suture line clean dry and intact. Mild pain to bimalleolar palpation. Full movement without pain. Ambulates without discomfort Objective Data Active Medications Acetaminophen (Acetaminophen 325 Mg Tablet) 650 mg PO Q6H PRN PRN Reason: Pain, Mild (Pain Scale 1-3) Last Admin: 07/31/22 19:14 Dose: 650 mg Documented By: AIME Buspirone HCl (Buspirone Hcl 5 Mg Tablet) 15 mg PO BID [facility] Last Admin: 08/01/22 11:53 Dose: 15 mg Documented By: MANE Comments: Pt is awake enough for 0900 meds Gabapentin (Gabapentin 400 Mg Capsule) 800 mg PO TID [facility] Last Admin: 08/01/22 11:53 Dose: 800 mg Documented By: MANE Comments: Pt is awake enough for 0900 meds Piperacillin Sod/Tazobactam (Sod 3.375 gm/ Sodium Chloride) 50 mls @ 100 mls/hr IV Q6H [facility] Last Infusion: 08/01/22 13:32 Dose: 0 mls/hr Documented By: MANE Vancomycin HCl 1,250 mg/ (Sodium Chloride) 250 mls @ 166.667 mls/hr IV Q12H [facility] Melatonin (Melatonin 3 Mg Tablet) 6 mg PO BEDTIME PRN PRN Reason: Insomnia Methadone HCl (Methadone Hcl 20 Mg/2 Ml Oral.Conc) 50 mg PO DAILY [facility] Last Admin: 08/01/22 10:48 Dose: Not Given Documented By: PATRICK Non-Admin Reason: Patient too drowsy Nicotine (Nicotine 14 Mg Patch.Td24) 14 mg TRANSDERMA DAILY [facility] Last Admin: 08/01/22 10:47 Dose: Not Given Documented By: PATRICK Non-Admin Reason: Med Not Available Ondansetron HCl (Ondansetron Hcl 4 Mg/2 Ml Vial) 4 mg IVPUSH Q8H PRN PRN Reason: Nausea and Vomiting Oxycodone HCl (Oxycodone Hcl Immed Release 5 Mg Tablet) 5 mg PO Q4H PRN PRN Reason: Pain, Moderate (Pain Scale 4-6 Last Admin: 08/01/22 04:13 Dose: 5 mg Documented By: KINGA Pharmacy Consult (Consult Rx Perform Med Rec) 1 each MISCELLANE ONCE PRN PRN Reason: Consult order Pharmacy Consult (Consult Rx Vancomycin Dosing) 1 each MISCELLANE DAILY PRN PRN Reason: Consult order Quetiapine Fumarate (Quetiapine Fumarate 300 Mg Tablet) 300 mg PO BEDTIME [facility] Last Admin: 08/01/22 01:09 Dose: 300 mg Documented By: KINGA Sodium Chloride (0.9 % Sodium Chloride Flush 3 Ml Syringe) 3 ml IVFLUSH QSHIFT [facility] Last Admin: 08/01/22 11:25 Dose: Not Given Documented By: MANE Non-Admin Reason: Headache Labs CBC & Chem 7: 07/31/22 11:48 08/01/22 09:16 Labs: Laboratory Results - last 24 hr 08/01/22 08/01/22 04:02 09:16 Anion Gap 13 Estim Creat Clear Calc 113.9 124.0 Estimated GFR > 60 > 60 Random Glucose 88 Calcium 9.2 Microbiology Microbiology Results: Microbiology 07/31/22 04:37 Blood Culture - Preliminary Blood - Venous No growth after 24 hours. 07/31/22 04:37 Blood Culture - Preliminary Blood - Venous No growth after 24 hours. Assessment and Plan (1) Septic arthritis of right ankle: Status: Acute (2) Opioid use disorder, severe, dependence: Status: Acute Plan This is a 36-year-old with pertinent history of IV drug use, history of endocarditis and septic pulmonary embolism, history of septic arthritis of the knee, history of mood disorder with ADHD and depression who presents to the emergency department for evaluation of right ankle pain and swelling. 1. Septic arthritis right ankle -continue vancomycin/Zosyn -MRI consistent with septic arthritis or inflammatory arthritis; no evidence of osteomyelitis -will discuss with ID... Strep pyogenes ease in both blood and ankle culture 2. Polysubstance abuse -appreciate addiction medicine input -appropriate to increase oxycodone given acute pain -seeking detox 3.Chronic normocytic anemia -follow clinically Lovenox Full code Will require ongoing hospitalization for IV antibiotics to treat a septic right ankle joint Quality Stroke Does the patient have a stroke diagnosis?: No VTE Prior VTE?: No VTE Risk Level:: Medical - moderate - high VTE Device Contraindication: Treatment Not Indicated VTE Drug Contraindication: Treatment Not Indicated
[2022-08-01 17:01] LABS: Vancomycin Trough 9.4 mcg/mL (10.0-20.0)
[2022-08-01] MEDS: vancomycin HCL 1,500 MG in 0.9 % Sodium Chloride 500 ML 333.33 MG IV (19:58)
[2022-08-01] MEDS: methADONE HCl 20 MG/2 ML ORAL.CONC 50 MG PO (19:59)
[2022-08-01] MEDS: 0.9 % Sodium Chloride Flush 3 ML SYRINGE IVFLUSH (19:59)
[2022-08-02 02:53] VITALS: BP 109/56; PULSE 57; RESP 16; TEMP 36.3; O2SAT 98
[2022-08-02] MEDS: Piperacillin Sodium/Tazobactam 3.375 GM in 0.9 % Sodium Chloride 50 ML IV ×2 (05:31→11:08)
[2022-08-02 06:11] LABS: MANUAL DIFF FLAG NO
[2022-08-02 06:21] LABS: Basophils Percent Auto 0.8 % (0-2); Eosinophils Absolute Auto 0.1 X10*3/uL (0.0-0.4); Eosinophils Percent Auto 2.5 % (0-4); Hematocrit 38.4 % (42.0-52.0); Hemoglobin 11.7 g/dl (14.0-18.0); Imm Gran Abs Auto 0.01 X10*3/uL (0.00-0.03); Imm Gran Pct Auto 0.2 % (0.0-0.4); Lymphocytes Absolute Auto 1.8 X10*3/uL (1.2-4.9); Lymphocytes Percent Auto 34.4 % (20-40); Mean Corpuscular HGB Conc 30.5 g/dl (31.0-36.0); Mean Corpuscular Hemoglobin 25.9 pg (27.0-33.0); Mean Corpuscular Volume 85.1 fL (80.0-98.0); Mean Platelet Volume 9.4 fL (9.4-12.4); Monocytes Absolute Auto 0.5 X10*3/uL (0.1-1.2); Monocytes Percent Auto 9.5 % (2-11); Neutrophils Absolute Auto 2.8 x10*3/uL (2.0-8.3); Neutrophils Percent Auto 52.6 % (45-73); Platelet Count 294 X10*3/uL (160-400); Red Blood Count 4.51 X10*6/uL (4.60-5.80); Red Cell Distribution Width 13.5 % (11.0-16.0); White Blood Count 5.2 X10*3/uL (4.8-10.8)
[2022-08-02 06:39] LABS: Creatinine Clr Calc Pharmacy 131.6; Estimated Glomerular Filt Rate > 60
[2022-08-02 06:40] LABS: Anion Gap 16 (12-20); Blood Urea Nitrogen 14 mg/dL (9-16); Calcium 9.2 mg/dL (8.4-10.2); Carbon Dioxide 20 mmol/L (22-29); Chloride 108 mmol/L (96-108); Creatinine Clr Calc Pharmacy 126.1; Estimated Glomerular Filt Rate > 60; Glucose Random 80 mg/dL (60-115); Potassium 4.5 mmol/L (3.3-5.1); Sodium 139 mmol/L (135-145)
--- NOTE | 2022-08-02 07:22 | HE.PHANOTE ---
RACIEL SPAIN CONTINUE CURRENT DOSE, NEXT TROUGH DUE 08/03 @0600 PIPPA
--- NOTE | 2022-08-02 07:40 | PM.DS ---
DS: Providers Provider Date of Service: 08/02/22 Date of admission: 07/31/22 04:32 Date of discharge: 08/02/22 Primary care physician: Raquel Gao MD Consults: 07/31/22 04:35 Consult to Infectious Diseases Routine Consulting Provider: Mable Tapia Reason for consultation: ankle osteomyelitis Has provider been notified: No Consult to Orthopedics Routine Consulting Provider: Ricardo Cortez Reason for consultation: ankle osteomyelitis Has provider been notified: No 07/31/22 04:48 Addiction Medicine Routine Consulting Provider: Addiction Covering Reason for consultation: cocaine use Consult to Care Team Routine Comment: Reason for consultation: cocaine use 07/31/22 08:11 Consult to Care Team Stat Comment: Reason for consultation: Hx suicidal ideation...last DS: Diagnosis Discharge Diagnosis (1) Septic arthritis of right ankle: Status: Acute (2) Opioid use disorder, severe, dependence: Status: Acute DS: Summary Hospital Course Hospital Course: 36-year-old with pertinent history of IV drug use, history of endocarditis and septic pulmonary embolism, history of septic arthritis of the knee, history of mood disorder with ADHD and depression who presents to the emergency department for evaluation of right ankle pain and swelling.? Patient was recently admitted and discharged on 07/18 with septic arthritis of the right ankle.? He underwent joint aspiration by Ortho on 07/11 and was discharged on p.o. antibiotics.? Patient states he did not take his p.o. antibiotic for 4-5 days after discharge due to limited transportation as he could not get to the pharmacy.? Patient states since discharge, he has had worsening right ankle pain which has been constant, progressive and without any relieving factors.? Also associated swelling, redness and tenderness. He denies fever, chills, nausea, vomiting, chest discomfort, palpitations, shortness of breath, abdominal pain, changes in urinary or bowel habits. Orthopedics was consulted; fell changes in MRI were due to past aspiration and cleaning of joint on 07/11/2022. They also noted the patient was ambulatory while in the hospital which spoke against a true septic joint. While in the hospital, he received vancomycin and Zosyn pending and ID consult. Id reviewed cultures an MRI and felt Ceftin 500 b.i.d. x3 weeks was adequate based on culture findings. At the time of discharge patient is essentially pain-free and ambulatory on that joint. He was also followed by Addiction Medicine who managed his methadone and who dictated his oxycodone for pain. At this point in time he is medically stable for transfer to [facility] this a.m. Time Spent with Patient Time attestation: Total time spent providing and/or coordinating discharge services: Discharge coordination time: Greater than 30 minutes Quality: Safe Use of Opioids Does Pt have an Active Cancer Diagnosis on the Problem List?: No Quality: Stroke Does the patient have a stroke diagnosis?: No Physical Exam Vital Signs: Vital Signs: Last Vital Signs Temp 97.3 F 08/02/22 02:53 Pulse 57 08/02/22 02:53 Resp 16 08/02/22 02:53 BP 109/56 L 08/02/22 02:53 Pulse Ox 98 08/02/22 02:53 O2 Del Method 08/02/22 02:53 BMI result Body Mass Index 21.9 Const: Other: No acute distress Resp: Other: No S4; positive S1-S2; no S3 murmurs rubs or gallops Cardio: Other: No S4; positive S1-S2; no S3 murmurs rubs or gallops GI: Other: Soft nontender nondistended normoactive bowel sounds Extrem: Other: Suture line clean dry and intact. Mild pain to bimalleolar palpation. Full movement without pain. Ambulates without discomfort DS: Data Data Completed and Pending Completed studies during hospitalization [Text1]: Procedures Detoxification Services for Substance Abuse Treatment (11/13/21) Drainage of Left Knee Joint, Percutaneous Approach (06/11/20) Drainage of Right Ankle Joint, Open Approach (07/10/22) Drainage of Right Ankle Joint, Percutaneous Approach (07/10/22) Excision of Right Ankle Joint, Open Approach (07/10/22) Insertion of Infusion Device into Superior Vena Cava, Percutaneous Approach (06/11/20) Irrigation of Joints using Irrigating Substance, Percutaneous Endoscopic Approach (06/11/20) Ultrasonography of Superior Vena Cava, Guidance (06/11/20) Labs on day of discharge: Laboratory Results - last 24 hr 08/01/22 08/01/22 08/02/22 09:16 16:21 05:23 WBC RBC Hgb Hct MCV MCH MCHC RDW Plt Count MPV Immature Gran % (Auto) Neut % (Auto) Lymph % (Auto) [place] % (Auto) Eos % (Auto) Baso % (Auto) Lymph # (Auto) [place] # (Auto) Eos # (Auto) Baso # (Auto) Abs Immat Gran (auto) Absolute Neuts (auto) Absolute Nucleated RBC Nucleated RBC % (auto) Sodium Potassium Chloride Carbon Dioxide Anion Gap BUN Creatinine 0.68 0.69 Estim Creat Clear Calc 124.0 131.6 Estimated GFR > 60 > 60 Random Glucose Calcium Vancomycin Trough 9.4 L 08/02/22 08/02/22 05:23 05:23 WBC 5.2 RBC 4.51 L Hgb 11.7 L Hct 38.4 L MCV 85.1 MCH 25.9 L MCHC 30.5 L RDW 13.5 Plt Count 294 MPV 9.4 Immature Gran % (Auto) 0.2 Neut % (Auto) 52.6 Lymph % (Auto) 34.4 [place] % (Auto) 9.5 Eos % (Auto) 2.5 Baso % (Auto) 0.8 Lymph # (Auto) 1.8 [place] # (Auto) 0.5 Eos # (Auto) 0.1 Baso # (Auto) 0.0 Abs Immat Gran (auto) 0.01 Absolute Neuts (auto) 2.8 Absolute Nucleated RBC 0.000 Nucleated RBC % (auto) 0.0 Sodium 139 Potassium 4.5 Chloride 108 Carbon Dioxide 20 L Anion Gap 16 BUN 14 Creatinine 0.72 Estim Creat Clear Calc 126.1 Estimated GFR > 60 Random Glucose 80 Calcium 9.2 Vancomycin Trough Preliminary micro results at discharge 07/31/22 04:37 Blood Culture - Preliminary Blood - Venous No growth after 48 hours. 07/31/22 04:37 Blood Culture - Preliminary Blood - Venous No growth after 48 hours. Discharge Plan Discharge Anticipated Discharge Date/Time: 08/02/22 07:31 Patient Disposition: Xfer Inpatient Rehab Fac Discharge Diagnosis: septic arthritis right ankle Referrals: Raquel Gao MD [Primary Care Provider] - 1 Week Discharge Medications: New quetiapine 300 mg Tablet 300 mg PO BEDTIME Qty: 30 0RF oxycodone 5 mg Tablet 5 mg PO Q4H PRN (Reason: Pain, Moderate (Pain Scale 4-6) Qty: 20 0RF Rx Instructions: Partial Fill upon patient request. cefuroxime axetil 500 mg tablet 500 mg PO BID 21 Days Qty: 42 0RF Continued nicotine 21 mg/24 hr Patch 24 Hour 21 mg transdermal DAILY Qty: 30 0RF buspirone 5 mg Tablet 15 mg PO BID Qty: 60 0RF quetiapine 300 mg Tablet 300 mg PO BEDTIME Qty: 30 0RF clonidine HCl 0.1 mg Tablet 0.1 mg PO DAILY PRN (Reason: Anxiety) Qty: 30 0RF prazosin 1 mg Capsule 2 mg PO BEDTIME Qty: 30 0RF dextroamphetamine-amphetamine 30 mg tablet 30 mg PO BID Qty: 60 0RF gabapentin 800 mg Tablet 800 mg PO TID Qty: 90 0RF albuterol sulfate 90 mcg/actuation Hfa Aerosol Inhaler 2 puff INHALATION Q4H PRN (Reason: Respiratory Distress) Qty: 1 0RF Discontinued amoxicillin 500 mg Capsule 500 mg PO Q8H Qty: 62 0RF No Action (DME) salvador Chandra See Rx Instructions .Route Qty: 1 0RF Rx Instructions: As directed Discharge Orders: Discharge Order (Routine); Ordered 08/02/22 Ordered By: Isidro Oreilly Diet: Advance to usual diet Stand Alone Forms: Patient Portal Discharge page Care Plan Goals: Continue Ceftin 500 mg b.i.d. x3 weeks Health Concerns: Continue all meds as ordered Plan of Treatment: As per receiving facility Assessment: See discharge summary
[2022-08-02 07:45] VITALS: BP 110/67; PULSE 48; RESP 15; TEMP 36.6; O2SAT 97
[2022-08-02] MEDS: vancomycin HCL 1,500 MG in 0.9 % Sodium Chloride 500 ML 333.33 MG IV (08:16)
[2022-08-02] MEDS: Nicotine 14 MG PATCH.TD24 TRANSDERMA (08:16)
[2022-08-02] MEDS: 0.9 % Sodium Chloride Flush 3 ML SYRINGE IVFLUSH (08:16)
[2022-08-02] MEDS: methADONE HCl 20 MG/2 ML ORAL.CONC 50 MG PO (08:17)
[2022-08-02] MEDS: busPIRone HCl 5 MG TABLET 15 MG PO (08:17)
[2022-08-02] MEDS: Gabapentin 400 MG CAPSULE 800 MG PO (08:17)
--- NOTE | 2022-08-02 08:21 | PM.PNORT ---
Subjective Subjective Date of Service: 08/02/22 Interval history: POD 17 s/p right ankle irrigation and debridement. Patient is resting comfortably in bed. Pain appears to be well managed. No overnight events. No additional complaints. Physical Exam Vital Signs: Vital Signs: Last Vital Signs Temp 97.8 F 08/02/22 07:45 Pulse 48 L 08/02/22 07:45 Resp 15 08/02/22 07:45 BP 110/67 08/02/22 07:45 Pulse Ox 97 08/02/22 07:45 O2 Del Method 08/02/22 07:45 BMI result Body Mass Index 21.9 Const: General: cooperative, healthy appearing and no acute distress Resp: Effort & Inspection: normal respiratory effort and able to speak in complete sentences Cardio: Rate: regular rate Peripheral pulses: Peripheral pulses 2+ throughout GI: Palpation (GI): Soft to palpation Skin: Lesions: no lesions Rashes: no rashes Extrem: Other: Right ankle sutures intact. No erythema. Mild tenderness to palpation of the medial and lateral malleolus. Able to dorsiflex and plantar flex. Sensation intact. No open areas. No areas of drainage. Patient ambulating in the hallway. NVI. Procedures Date of Service Date of Service: 08/02/22 Progress Note: A&P Assessment and plan (1) Ankle osteomyelitis, right: Status: Acute (2) Septic arthritis of right ankle: Status: Acute Plan Sutures removed today he will continue to work on ROM and increase activities as tolerated follow up with ortho prn . Time Spent With Patient Time: Total time spent is greater than 50% in coordination of care (as documented) at patient's floor/unit and/or counseling patient: Quality Stroke Does the patient have a stroke diagnosis?: No VTE Prior VTE?: No VTE Risk Level:: Medical - moderate - high VTE Device Contraindication: Treatment Not Indicated VTE Drug Contraindication: Treatment Not Indicated
--- NOTE | 2022-08-02 10:09 | MHC.CM.PN ---
PER TRANSPORTATION CONSULTANT, PT WILL BE GOING TO [facility] THIS AFTERNOON VIA [facility]
[2022-08-02 11:33] VITALS: BP 112/60; PULSE 57; RESP 18; TEMP 36.6; O2SAT 98
[2022-08-02] MEDS: oxyCODONE HCl Immed Release 5 MG TABLET PO (12:01)
--- NOTE | 2022-08-02 12:51 | MHC.RECOVRN ---
Met with pt to f/u regarding discharge planning. Pt wishes to continue AMINTA tx at [facility]. Pt has been accepted for a 2:15PM admission time and will be transported via Ly[employer]. Pt informed of the following- [facility] will not dispense oxycodone [facility] will not continue 50 mg methadone. Pt will be put on COWS until an appt can be secured at the [facility]. The pt may be held at 30 mg throughout the weekend. Pt will not receive gabapentin or dextroamphetamine-amphetamine until the prescriptions can be filled at [facility] and delivered, which may not be until Friday. Pt will make follow up with ortho while at [facility]. Pt agreeable to all. Pt denies questions or concerns at this time. Discussed with RN.
== END 2022-08-02 13:26 | DRG 344 ==
LOC: HO.ED 04:04 → HO.EDOVER 04:56 → HO.S3 08-01 18:24
PROVIDERS: Admitting Provider Student in an Organized Health Care Education/Training Program; Emergency Provider Emergency Medicine; PCP Family Medicine; Visit Provider Hospitalist
DX: M00.9 Pyogenic arthritis, unspecified (principal); F33.9 Major depressive disorder, recurrent, unspecified; M86.9 Osteomyelitis, unspecified; D64.9 Anemia, unspecified; F11.20 Opioid dependence, uncomplicated; F90.9 Attention-deficit hyperactivity disorder, unspecified type; F14.10 Cocaine abuse, uncomplicated; F17.210 Nicotine dependence, cigarettes, uncomplicated; Z20.822 Contact with and (suspected) exposure to COVID-19; Z71.6 Tobacco abuse counseling; Z86.711 Personal history of pulmonary embolism; Z91.51 Personal history of suicidal behavior; Z88.8 Allergy status to other drugs, medicaments and biological substances; Z79.899 Other long term (current) drug therapy
CPT/HCPCS: 36415; 73610; 73723; 80048; 80053; 80202; 80307; 82565; 83605; 85025; 87040; 87635; 93005; 97161; 99285; A9585; J2543; J3370

== ENCOUNTER 2022-09-12 15:08 | Inpatient (IN) | payer OTHER, SELFPAY ==
--- NOTE | ~2022-09-12 | XR_ITS ---
EXAMINATION: BILATERAL ANKLE: CLINICAL INFORMATION: Osteomyelitis. COMPARISON: None TECHNIQUE: 3 views each ankle. FINDINGS: Right ankle: There is bimalleolar soft tissue swelling. There are small bone fragment seen at the tip of medial and lateral malleoli likely subacute to old. No acute fracture of dislocation suspected. The ankle mortise and subtalar joints are normal. Left ankle: The ankle mortise and subtalar joints are normal. No visible acute fracture, dislocation or subluxation seen. The soft tissues are normal. XR/XR ankle RT min 3V IMPRESSION: 1. Bimalleolar soft tissue swelling right ankle. There are small bone fragment along the tip of medial and lateral malleoli likely subacute to old. No visible acute fracture or dislocation seen. 2. Unremarkable left ankle exam..
--- NOTE | ~2022-09-12 | XR_ITS ---
EXAMINATION: BILATERAL ANKLE: CLINICAL INFORMATION: Osteomyelitis. COMPARISON: None TECHNIQUE: 3 views each ankle. FINDINGS: Right ankle: There is bimalleolar soft tissue swelling. There are small bone fragment seen at the tip of medial and lateral malleoli likely subacute to old. No acute fracture of dislocation suspected. The ankle mortise and subtalar joints are normal. tissues are normal.
[2022-09-12 15:16] VITALS: BP 144/98; BP 146/82; PULSE 116; PULSE 98; RESP 22; O2SAT 98; BMI 21.9
--- NOTE | 2022-09-12 15:29 | PC.NURSE ---
Pt comes in by ambulance, reports that he was bitten by a rattlesnake in multiple locations after stepping on a rattlesnake nest in [facility]. Pt is acting very erratic, not easily re-directable. Pt reports that he has hx of drug abuse but has not taken anything today. he reports that he started methadone today. VSS, pt is currently resting on stretcher
[2022-09-12 15:53] VITALS: PULSE 110; RESP 19; TEMP 37.1; O2SAT 97
[2022-09-12 17:42] LABS: MANUAL DIFF FLAG NO
[2022-09-12 17:43] LABS: Basophils Percent Auto 0.1 % (0-2); Hematocrit 35.8 % (42.0-52.0); Hemoglobin 11.5 g/dl (14.0-18.0); Imm Gran Abs Auto 0.02 X10*3/uL (0.00-0.03); Imm Gran Pct Auto 0.3 % (0.0-0.4); Lymphocytes Absolute Auto 0.9 X10*3/uL (1.2-4.9); Lymphocytes Percent Auto 12.3 % (20-40); Mean Corpuscular HGB Conc 32.1 g/dl (31.0-36.0); Mean Corpuscular Volume 80.8 fL (80.0-98.0); Mean Platelet Volume 8.8 fL (9.4-12.4); Monocytes Absolute Auto 0.6 X10*3/uL (0.1-1.2); Monocytes Percent Auto 7.7 % (2-11); Neutrophils Percent Auto 79.6 % (45-73); Platelet Count 267 X10*3/uL (160-400); Red Blood Count 4.43 X10*6/uL (4.60-5.80); Red Cell Distribution Width 13.3 % (11.0-16.0); White Blood Count 7.5 X10*3/uL (4.8-10.8)
[2022-09-12 18:19] LABS: Alanine Aminotransferase 38 U/L (0-40); Albumin Level 3.8 g/dL (3.5-5.0); Alkaline Phosphatase 89 U/L (39-117); Anion Gap 16 (12-20); Aspartate Amino Transferase 49 U/L (5-37); Bilirubin Direct 0.2 mg/dL (0.0-0.5); Bilirubin Total 0.3 mg/dL (0.0-1.0); Blood Urea Nitrogen 14 mg/dL (9-16); Carbon Dioxide 25 mmol/L (22-29); Chloride 98 mmol/L (96-108); Creatinine Clr Calc Pharmacy 129.1; Estimated Glomerular Filt Rate > 60; Glucose Random 87 mg/dL (60-115); Magnesium 2.1 mg/dL (1.6-2.6); Potassium 3.7 mmol/L (3.3-5.1); Sodium 135 mmol/L (135-145); Total Protein 7.4 g/dL (6.5-8.0)
--- NOTE | 2022-09-12 18:25 | PC.NURSE ---
[facility] transfer sheet has been sent over
[2022-09-12 18:26] VITALS: PULSE 94; RESP 16; O2SAT 98
--- NOTE | 2022-09-12 18:27 | ED.GENADULT ---
HPI - General Adult General Chief complaint: General Medical Stated complaint: Visual hallucinations per EMS Time Seen by Provider: 09/12/22 15:49 Source: patient and EMS Mode of arrival: EMS Limitations: no limitations History of Present Illness HPI narrative: Patient comes to the emergency room by ambulance. Patient states that he was found on the street, told police department that he got bitten by snakes in multiple locations in his legs. Patient states that he he saws 20+rattle snakes that crawled up his pants and bit him in the ankles. Patient convinced that he was bitten, patient has no bite wounds, erythema or any skin issues. Patient even states that he pulled the snakes out of his pants and choked the rattles snake. Patient keeps saying that he is not mentally ill, that he is not crazy and he is not delusional. Of note, patient known to use cocaine and does have history of mental illness according to EMS Related Data Previous Rx's Medication Instructions Recorded cephalexin 500 mg capsule 500 mg PO TID 7 days #21 caps 02/23/22 doxycycline monohydrate 100 mg 100 mg PO BID 7 days #14 tabs 02/23/22 tablet Allergies Allergy/AdvReac Type Severity Reaction Status Date / Time haloperidol [From Haldol] Allergy Unknown Unknown Verified 02/23/22 01:07 Review of Systems Review of Systems: Constitutional : No Weight loss, No Fever, No Chills, No Night Sweats, No Fatigue, No Malaise ENT/Mouth : No Hearing loss, No Ear Pain, No Nasal Congestion, No Sinus Pain, No Hoarseness, No sore throat, No Rhinorrhea, No Swallowing Difficulty Eyes: No Eye Pain, No Swelling, No Redness, No Foreign Body, No Discharge, No Vision Changes Cardiovascular : No Chest Pain, No SOB, No Dyspnea on Exertion, No Orthopnea, No Edema, No Palpitations Respiratory : No Cough, No Sputum, No Wheezing, No Smoke Exposure, No Dyspnea Gastrointestinal : No Nausea, No Vomiting, No Diarrhea, No Constipation, No abdominal Pain, No Hematochezia, No Melena Genitourinary : no irregular bleeding, No Dysuria, No Urinary Frequency, No Hematuria, No Urinary Incontinence, No Urgency, No Flank Pain, No Urinary Flow Changes, No Hesitancy Musculoskeletal : No joint pain, No Myalgias, No Joint Swelling Skin : Complaining of ?multiple snake bites? to the ankles although there are no visible wounds Neuro : No Weakness, No Numbness, No Paresthesias, No Loss of Consciousness, No Dizziness, No Headache Psych : No Anxiety/Panic, No Depression, No SI/HI/AH/VH, No Social Issues, Heme/Lymph: No Bruising, No Bleeding,No Lymphadenopathy Endocrine : No Polyuria, No Polydipsia, No Temperature Intolerance PMF Past Medical History Medical History Cellulitis Hepatitis C Opiate abuse, continuous Social History Social History Patient Tobacco Use Status: Current someday Tobacco user Substance Use Type: Heroin Advance Directives: No Advance Directives Information Provided: No Physical Exam ED Vital Signs: Vital Signs - 24 hr 09/12/22 15:16 09/12/22 15:53 09/12/22 18:26 Temperature 98.7 F Pulse Rate 116 H 110 H 94 Respiratory Rate 22 H 19 16 Blood Pressure 146/82 H Pulse Oximetry 98 97 98 Oxygen Delivery Method Room Air Room Air Room Air BMI result Body Mass Index 21.9 Const Other: Appearance: Alert. Oriented X3. No acute distress. Eyes: Pupils equal, round and reactive to light. ENT: Pharynx normal. Neck: Normal inspection. Neck supple. No lymph nodes noted. No crepitus CVS: Normal heart rate and rhythm. Pulses normal. Normal S1 and S2 Respiratory: No respiratory distress. Breath sounds normal. No Wheezing. No rales Abdomen: Soft and nontender. No rigidity. No distention. Skin: Skin warm and dry. Normal skin color. Normal skin turgor. Extremities: No lower extremity edema. No Lacerations. No Rash Neuro: Oriented X 3. No motor deficit. No sensory deficit. Moving all extremities. No slurred speech. CN 2 through 12 grossly intact Psych: Anxious, convinced that he got bitten by multiple snakes Course Course Course Narrative: I discussed with the patient that it is approximately 20 degrees outside, and it is unlikely that 20+ rattle snakes were crawaling around [place] Patient's labs do not suggest any hematologic abnormality. Patient is delusional. Behavioral health network consult pending. Physician observation started at 19:40 Pt agreeable to inpatient bedsearch, pt is not on a section 12. Pt was not accepted by respite because of the large amount that pt uses. If patient wants to leave before admission, he may do so, as he is not suicidal or homicidal. Voluntary admission pending Sign-out given to Dr. Rowan Medical Decision Making Lab Data Result Diagrams: 09/12/22 17:36 09/12/22 17:36 Labs: Lab Results 09/12/22 09/12/22 09/12/22 Range/Units 17:36 17:36 18:13 WBC 7.5 (4.8-10.8) X10*3/uL RBC 4.43 L (4.60-5.80) X10*6/uL Hgb 11.5 L (14.0-18.0) g/dl Hct 35.8 L (42.0-52.0) % MCV 80.8 (80.0-98.0) fL MCH 26.0 L (27.0-33.0) pg MCHC 32.1 (31.0-36.0) g/dl RDW 13.3 (11.0-16.0) % Plt Count 267 (160-400) X10*3/uL MPV 8.8 L (9.4-12.4) fL Immature Gran % (Auto) 0.3 (0.0-0.4) % Neut % (Auto) 79.6 H (45-73) % Lymph % (Auto) 12.3 L (20-40) % Gilliam % (Auto) 7.7 (2-11) % Eos % (Auto) 0.0 (0-4) % Baso % (Auto) 0.1 (0-2) % Lymph # (Auto) 0.9 L (1.2-4.9) X10*3/uL Gilliam # (Auto) 0.6 (0.1-1.2) X10*3/uL Eos # (Auto) 0.0 (0.0-0.4) X10*3/uL Baso # (Auto) 0.0 (0.0-0.2) X10*3/uL Abs Immat Gran (auto) 0.02 (0.00-0.03) X10*3/uL Absolute Neuts (auto) 6.0 (2.0-8.3) x10*3/uL Absolute Nucleated RBC 0.000 (0.0-0.012) X10*3/uL Nucleated RBC % (auto) 0.0 (0.0-0.2) /100WBC PT (10.0-13.1) SEC INR (0.9-1.1) Sodium 135 (135-145) mmol/L Potassium 3.7 (3.3-5.1) mmol/L Chloride 98 (96-108) mmol/L Carbon Dioxide 25 (22-29) mmol/L Anion Gap 16 (12-20) BUN 14 (9-16) mg/dL Creatinine 0.71 (0.5-1.4) mg/dL Estim Creat Clear Calc 129.1 Estimated GFR > 60 Random Glucose 87 (60-115) mg/dL Lactic Acid 0.8 (0.5-2.0) mmol/L Calcium 9.0 (8.4-10.2) mg/dL Magnesium 2.1 (1.6-2.6) mg/dL Total Bilirubin 0.3 (0.0-1.0) mg/dL Direct Bilirubin 0.2 (0.0-0.5) mg/dL AST 49 H (5-37) U/L ALT 38 (0-40) U/L Alkaline Phosphatase 89 (39-117) U/L Troponin I High Sens (<3.5-35.0) ng/L Total Protein 7.4 (6.5-8.0) g/dL Albumin 3.8 (3.5-5.0) g/dL Urine Color Urine Appearance Urine pH (5.0-9.0) Ur Specific [place] (1.005-1.025) Urine Protein (Neg-Trace) mg/dL Urine Glucose (UA) (Negative) mg/dL Urine Ketones (Negative) mg/dL Urine Blood (Negative) Urine Nitrite (Negative) Ur Leukocyte Esterase (Negative) Urine RBC (0-2) /HPF Urine WBC (0-5) /HPF Ur Squamous Epith Cells (0-2) /HPF Urine Bacteria (None Seen) Hyaline Casts (0-2) /LPF Urine Opiates Screen (Not Detect) Urine Fentanyl Screen (Not Detect) Ur Barbiturates Screen (Not Detect) Ur Phencyclidine Scrn (Not Detect) Ur Amphetamines Screen (Not Detect) U Benzodiazepines Scrn (Not Detect) Urine Cocaine Screen (Not Detect) U Marijuana (THC) Screen (Not Detect) Ethyl Alcohol mg/dL COVID-19 (MARILYN) (Negative) COVID-19 Clin Com 09/12/22 09/12/22 09/12/22 Range/Units 18:13 18:13 18:14 WBC (4.8-10.8) X10*3/uL RBC (4.60-5.80) X10*6/uL Hgb (14.0-18.0) g/dl Hct (42.0-52.0) % MCV (80.0-98.0) fL MCH (27.0-33.0) pg MCHC (31.0-36.0) g/dl RDW (11.0-16.0) % Plt Count (160-400) X10*3/uL MPV (9.4-12.4) fL Immature Gran % (Auto) (0.0-0.4) % Neut % (Auto) (45-73) % Lymph % (Auto) (20-40) % Gilliam % (Auto) (2-11) % Eos % (Auto) (0-4) % Baso % (Auto) (0-2) % Lymph # (Auto) (1.2-4.9) X10*3/uL Gilliam # (Auto) (0.1-1.2) X10*3/uL Eos # (Auto) (0.0-0.4) X10*3/uL Baso # (Auto) (0.0-0.2) X10*3/uL Abs Immat Gran (auto) (0.00-0.03) X10*3/uL Absolute Neuts (auto) (2.0-8.3) x10*3/uL Absolute Nucleated RBC (0.0-0.012) X10*3/uL Nucleated RBC % (auto) (0.0-0.2) /100WBC PT 12.0 (10.0-13.1) SEC INR 1.0 (0.9-1.1) Sodium (135-145) mmol/L Potassium (3.3-5.1) mmol/L Chloride (96-108) mmol/L Carbon Dioxide (22-29) mmol/L Anion Gap (12-20) BUN (9-16) mg/dL Creatinine (0.5-1.4) mg/dL Estim Creat Clear Calc Estimated GFR Random Glucose (60-115) mg/dL Lactic Acid (0.5-2.0) mmol/L Calcium (8.4-10.2) mg/dL Magnesium (1.6-2.6) mg/dL Total Bilirubin (0.0-1.0) mg/dL Direct Bilirubin (0.0-0.5) mg/dL AST (5-37) U/L ALT (0-40) U/L Alkaline Phosphatase (39-117) U/L Troponin I High Sens < 3.5 (<3.5-35.0) ng/L Total Protein (6.5-8.0) g/dL Albumin (3.5-5.0) g/dL Urine Color Urine Appearance Urine pH (5.0-9.0) Ur Specific [place] (1.005-1.025) Urine Protein (Neg-Trace) mg/dL Urine Glucose (UA) (Negative) mg/dL Urine Ketones (Negative) mg/dL Urine Blood (Negative) Urine Nitrite (Negative) Ur Leukocyte Esterase (Negative) Urine RBC (0-2) /HPF Urine WBC (0-5) /HPF Ur Squamous Epith Cells (0-2) /HPF Urine Bacteria (None Seen) Hyaline Casts (0-2) /LPF Urine Opiates Screen (Not Detect) Urine Fentanyl Screen (Not Detect) Ur Barbiturates Screen (Not Detect) Ur Phencyclidine Scrn (Not Detect) Ur Amphetamines Screen (Not Detect) U Benzodiazepines Scrn (Not Detect) Urine Cocaine Screen (Not Detect) U Marijuana (THC) Screen (Not Detect) Ethyl Alcohol < 10 mg/dL COVID-19 (MARILYN) (Negative) COVID-19 Clin Com 09/12/22 09/12/22 09/12/22 Range/Units 18:14 18:38 18:38 WBC (4.8-10.8) X10*3/uL RBC (4.60-5.80) X10*6/uL Hgb (14.0-18.0) g/dl Hct (42.0-52.0) % MCV (80.0-98.0) fL MCH (27.0-33.0) pg MCHC (31.0-36.0) g/dl RDW (11.0-16.0) % Plt Count (160-400) X10*3/uL MPV (9.4-12.4) fL Immature Gran % (Auto) (0.0-0.4) % Neut % (Auto) (45-73) % Lymph % (Auto) (20-40) % Gilliam % (Auto) (2-11) % Eos % (Auto) (0-4) % Baso % (Auto) (0-2) % Lymph # (Auto) (1.2-4.9) X10*3/uL Gilliam # (Auto) (0.1-1.2) X10*3/uL Eos # (Auto) (0.0-0.4) X10*3/uL Baso # (Auto) (0.0-0.2) X10*3/uL Abs Immat Gran (auto) (0.00-0.03) X10*3/uL Absolute Neuts (auto) (2.0-8.3) x10*3/uL Absolute Nucleated RBC (0.0-0.012) X10*3/uL Nucleated RBC % (auto) (0.0-0.2) /100WBC PT (10.0-13.1) SEC INR (0.9-1.1) Sodium (135-145) mmol/L Potassium (3.3-5.1) mmol/L Chloride (96-108) mmol/L Carbon Dioxide (22-29) mmol/L Anion Gap (12-20) BUN (9-16) mg/dL Creatinine (0.5-1.4) mg/dL Estim Creat Clear Calc Estimated GFR Random Glucose (60-115) mg/dL Lactic Acid (0.5-2.0) mmol/L Calcium (8.4-10.2) mg/dL Magnesium (1.6-2.6) mg/dL Total Bilirubin (0.0-1.0) mg/dL Direct Bilirubin (0.0-0.5) mg/dL AST (5-37) U/L ALT (0-40) U/L Alkaline Phosphatase (39-117) U/L Troponin I High Sens (<3.5-35.0) ng/L Total Protein (6.5-8.0) g/dL Albumin (3.5-5.0) g/dL Urine Color Yellow Urine Appearance Clear Urine pH 6.0 (5.0-9.0) Ur Specific [place] 1.020 (1.005-1.025) Urine Protein 30 (1+) H (Neg-Trace) mg/dL Urine Glucose (UA) Negative (Negative) mg/dL Urine Ketones Trace (Negative) mg/dL Urine Blood Negative (Negative) Urine Nitrite Negative (Negative) Ur Leukocyte Esterase Negative (Negative) Urine RBC 0-2 (0-2) /HPF Urine WBC 0-5 (0-5) /HPF Ur Squamous Epith Cells 3-5 (0-2) /HPF Urine Bacteria None Seen (None Seen) Hyaline Casts 3-5 (0-2) /LPF Urine Opiates Screen POSITIVE H (Not Detect) Urine Fentanyl Screen POSITIVE H (Not Detect) Ur Barbiturates Screen Not Detected (Not Detect) Ur Phencyclidine Scrn Not Detected (Not Detect) Ur Amphetamines Screen Not Detected (Not Detect) U Benzodiazepines Scrn Not Detected (Not Detect) Urine Cocaine Screen POSITIVE H (Not Detect) U Marijuana (THC) Screen POSITIVE H (Not Detect) Ethyl Alcohol mg/dL COVID-19 (MARILYN) Negative (Negative) COVID-19 Clin Com See Note Discharge Plan Discharge Clinical Impression: Delusional disorder, Active substance abuse Patient Disposition: Still a Patient Prescriptions: No Action cephalexin 500 mg capsule 500 mg PO TID 7 Days Qty: 21 0RF doxycycline monohydrate 100 mg tablet 100 mg PO BID 7 Days Qty: 14 0RF
[2022-09-12 18:35] LABS: Lactic Acid 0.8 mmol/L (0.5-2.0)
[2022-09-12 18:37] LABS: Ethanol < 10 mg/dL
[2022-09-12 18:43] LABS: COVID-19 Test Negative (Negative); IDNOW Serial# 55D5AD1C
[2022-09-12 18:46] LABS: Troponin-I High Sensitivity < 3.5 ng/L (<3.5-35.0)
[2022-09-12 18:51] LABS: Appearance Urine Clear; Color Urine Yellow; Glucose Urine UA Negative (Negative); Leukocyte Esterase Urine Negative (Negative); Nitrite Urine Negative (Negative); UMIC TRIGGER UACC YES; Urine Blood Negative (Negative); Urine Ketones Trace mg/dL (Negative); Urine Protein 30 (1+) mg/dL (Neg-Trace)
[2022-09-12 18:56] LABS: Bacteria Urine None Seen (None Seen); RBC Urine 0-2 /HPF (0-2); WBC Urine 0-5 /HPF (0-5)
[2022-09-12 18:58] LABS: Amphetamine Screen Urine Not Detected (Not Detect); Barbiturates, Urine Not Detected (Not Detect); Benzodiazepines Screen Urine Not Detected (Not Detect); Cannabinoid Screen Urine POSITIVE (Not Detect); Cocaine Screen Urine POSITIVE (Not Detect); Fentanyl, urine POSITIVE (Not Detect); Opiate Screen Urine POSITIVE (Not Detect); Phencyclidine Screen Urine Not Detected (Not Detect)
--- NOTE | 2022-09-12 20:08 | PC.NURSE ---
Pt continues to rest on stretcher in hallway. Pt reports 2/10 pain in left ankle. Reports I shot up there recently and now it hurts Dr. Flores aware, no new orders at this time. Pt ate sandwich and drank boris shanae. Awaiting [facility] consult
--- NOTE | 2022-09-12 23:25 | MHC.CARE ---
LUIS en route to see pt
--- NOTE | 2022-09-13 00:39 | PC.NURSE ---
pt was evaluated by [facility], will stay for voluntary admission. Pt agreeable to this plan at this time
[2022-09-13 00:46] VITALS: BP 119/76; PULSE 73; RESP 18; TEMP 36.4; O2SAT 96
--- NOTE | 2022-09-13 06:23 | PC.NURSE ---
Addendum entered by Max Owens RN 09/13/22 06:30: Patient's med rec completed/patient is not on any home medication at this time. Original Note: Patient was transferred to ED POD at 0200, belonging list completed, change management specialist completed, patient had been sleeping since 0200, no distress observed/reported, behavior non concerning, med rec completed/pending provider's approval, disposition per [facility] is voluntary inpatient bed search, if patient seek discharge can be discharged per care team, patient ambulates independently, asymptomatic of withdrawal at this time, vss, will continue to monitor.
[2022-09-13 06:39] VITALS: BP 132/78; PULSE 54; RESP 16; TEMP 37.4; O2SAT 97
--- NOTE | 2022-09-13 10:45 | PC.NURSE ---
Contact made to [facility] in [place] for methadone verfication. per pt he takes 60mg of methadone PO D. [facility] does not have record of patient.
--- NOTE | 2022-09-13 14:01 | MHC.RECOVRN ---
Met with pt in [facility] after request from RN and confusion regarding pts methadone dose. Pt very familiar with t/w from previous consults. Upon arrival to [facility], pt had been registered under brother's name (Giovanni Howard). When RN reached out to [facility], they did not have a record of pt due to the incorrect name. Pt does have [facility] ID in belongings. Pt reports using heroin, 50 bags daily as well as cocaine, last use yesterday [employer]. Pt reports presenting to [facility] yesterday, 09/12, to initiate care. Pt reports receiving 40 mg methadone with the plan to increase to 60 mg today. Message has been left with [facility] after hours mailbox, awaiting return call. Discussed with Daphney Mcgovern APRN, as well as Liat Hahn NP. Plan to order 30 mg methadone now. RN and provider aware.
--- NOTE | 2022-09-13 14:31 | MHC.CARE ---
CARE Team met with Pt on the request of Dr. Garcia regarding disposition. Pt reports he has been off of his medication for the past 2 weeks. Pt endorse current SI and has hx of attempts and gestures. Pt reports he feels he is not able to maintain his safety in lower levels of care and at risk to harm himself if he is discharged. He report he has been complaint with methadone treatment. Pt has a prior admission in October of 2021 at [facility]. CARE Team supports [facility] admission determined by [facility] Crisis. Dr. Garcia notified.
[2022-09-13] MEDS: methADONE HCl 20 MG/2 ML ORAL.CONC 30 MG PO (15:15)
[2022-09-13 18:38] VITALS: BP 130/86; PULSE 72; TEMP 36.7; O2SAT 97
[2022-09-13 21:56] VITALS: BP 131/72; PULSE 63; RESP 18; TEMP 36.6; O2SAT 98
[2022-09-13] MEDS: Prazosin HCL 1 MG CAPSULE 2 MG PO (21:57)
[2022-09-13] MEDS: Gabapentin 400 MG CAPSULE 800 MG PO (21:57)
--- NOTE | 2022-09-14 01:32 | PC.ADMIT ---
Pt is a 36 yo male admitted to the unit after referral from [facility] through [facility]. Pt arrived on unit at 1838. Legal status is CV. Pt denies current medical issues. Pt has a long hx of substance abuse. Utox screening came back positive for opiates, fentanyl, THC and cocaine. Pt is known to [facility], having several [facility] on both behavioral units as well as the medical units d/t substance abuse ad overdoses. Pt was approached by law enforcement officers d/t his erratic behaviors. Pt told [employer] that he stepped on a rattlesnake nest and that they crawled up his pant leg and he had been bitten many times. Pt was brought to [facility] for evaluation. Pt usually presents here with unintentional opioid overdoses, this VH was inconsistent with his historical presentation. Pt denied any life stressors or changes but did report an increase in depressive sx around his chronic drug use. Pt presents on the unit as disheveled but A&O. Pt also reports struggling with his sleep. Provider weatherization field technician Jose notified of admission and orders were obtained. Pt placed on 15 min safety checks and reports that he currently feels safe in the hospital.
[2022-09-14 08:45] VITALS: BP 124/73; PULSE 52; RESP 18; TEMP 36.3; O2SAT 98
--- NOTE | 2022-09-14 08:54 | HE.PHANOTE ---
RE: methadone Received methadone verification form for 40mg daily last dose 09/12/22
[2022-09-14] MEDS: Amphetamine Mixed Salts 10 MG TABLET 30 MG PO ×2 (09:12→14:35)
[2022-09-14] MEDS: Gabapentin 400 MG CAPSULE 800 MG PO ×3 (09:13→20:29)
[2022-09-14] MEDS: Nicotine 21 MG PATCH.TD24 TRANSDERMA (09:14)
--- NOTE | 2022-09-14 11:39 | PC.NURSE ---
Late entry: Verified Methadone dosage with [facility], and provider. Also reviewed current comfort medications w/ provider.
[2022-09-14 11:47] VITALS: BP 144/97; PULSE 101; RESP 18; O2SAT 96
[2022-09-14] MEDS: hydrOXYzine HCL 50 MG TABLET PO (11:53)
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
--- NOTE | 2022-09-14 15:28 | PC.NURSE ---
Report given to RENAN Ziegler
[2022-09-14 17:04] LABS: MANUAL DIFF FLAG NO
[2022-09-14 17:05] LABS: Basophils Percent Auto 0.2 % (0-2); Eosinophils Percent Auto 0.9 % (0-4); Hematocrit 43.6 % (42.0-52.0); Hemoglobin 13.6 g/dl (14.0-18.0); Imm Gran Abs Auto 0.01 X10*3/uL (0.00-0.03); Imm Gran Pct Auto 0.2 % (0.0-0.4); Lymphocytes Absolute Auto 2.2 X10*3/uL (1.2-4.9); Mean Corpuscular HGB Conc 31.2 g/dl (31.0-36.0); Mean Corpuscular Hemoglobin 25.8 pg (27.0-33.0); Mean Corpuscular Volume 82.6 fL (80.0-98.0); Mean Platelet Volume 8.8 fL (9.4-12.4); Monocytes Absolute Auto 0.5 X10*3/uL (0.1-1.2); Monocytes Percent Auto 11.3 % (2-11); Neutrophils Absolute Auto 1.5 x10*3/uL (2.0-8.3); Neutrophils Percent Auto 35.4 % (45-73); Platelet Count 282 X10*3/uL (160-400); Red Blood Count 5.28 X10*6/uL (4.60-5.80); Red Cell Distribution Width 13.9 % (11.0-16.0); SCAN SMEAR FLAG 1; White Blood Count 4.2 X10*3/uL (4.8-10.8)
[2022-09-14 17:25] LABS: C Reactive Protein 1.13 mg/dL (< or = 0.50)
[2022-09-14] MEDS: Nicotine Polacrilex 2 MG GUM 4 MG BUCCAL ×2 (18:40→20:30)
[2022-09-14 18:47] LABS: Erythrocyte Sedimentation Rate 30 MM/HR (0-15)
[2022-09-14] MEDS: polyethylene glycoL 3350 17 GM POWD.PACK PO (20:28)
[2022-09-14] MEDS: Prazosin HCL 1 MG CAPSULE 2 MG PO (20:29)
[2022-09-14] MEDS: busPIRone HCl 5 MG TABLET 15 MG PO (20:29)
[2022-09-14 20:34] VITALS: BP 139/77; PULSE 61; RESP 16; TEMP 36.6; O2SAT 100
--- NOTE | 2022-09-14 20:49 | ECG_ITS ---
Test Reason : cp Blood Pressure : / mmHG Vent. Rate : 048 BPM Atrial Rate : 048 BPM P-R Int : 118 ms QRS Dur : 094 ms QT Int : 464 ms P-R-T Axes : -43 -02 007 degrees QTc Int : 414 ms Unusual P axis, possible ectopic atrial bradycardia Moderate voltage criteria for LVH, may be normal variant ( R in aVL , Sokolow-Lee ) Nonspecific T wave abnormality Abnormal ECG When compared with ECG of 12-SEP-2022 15:52, Ectopic atrial rhythm has replaced Sinus rhythm Vent. rate has decreased BY 55 BPM QT has shortened Referred By: Blake Garcia Electronically Signed By:JONES HURST MD
[2022-09-15] MEDS: Nicotine Polacrilex 2 MG GUM 4 MG BUCCAL ×3 (06:27→14:33)
--- NOTE | 2022-09-15 08:00 | ECG_ITS ---
Test Reason : prolonged qtc, methadone inc Blood Pressure : / mmHG Vent. Rate : 078 BPM Atrial Rate : 078 BPM P-R Int : 136 ms QRS Dur : 078 ms QT Int : 376 ms P-R-T Axes : 031 007 033 degrees QTc Int : 428 ms Normal sinus rhythm Nonspecific T wave abnormality Abnormal ECG No previous ECGs available Referred By: Mariela Ulloa Electronically Signed By:Kashmir Dennis
[2022-09-15 08:16] VITALS: BP 126/77; PULSE 58; TEMP 36.6; O2SAT 97
[2022-09-15] MEDS: Gabapentin 400 MG CAPSULE 800 MG PO ×3 (08:27→20:57)
[2022-09-15] MEDS: Amphetamine Mixed Salts 10 MG TABLET 30 MG PO ×2 (08:28→14:31)
[2022-09-15] MEDS: busPIRone HCl 5 MG TABLET 15 MG PO ×2 (08:28→20:57)
[2022-09-15] MEDS: buPROPion HCl XL 150 MG TAB.ER.24H PO (08:29)
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
[2022-09-15] MEDS: Prazosin HCL 1 MG CAPSULE 2 MG PO (20:57)
[2022-09-15] MEDS: QUEtiapine Fumarate 200 MG TABLET PO (20:58)
[2022-09-15] MEDS: Ibuprofen 600 MG TABLET PO (20:58)
[2022-09-15] MEDS: Cyclobenzaprine HCl 10 MG TABLET PO (20:59)
[2022-09-15 21:02] VITALS: BP 128/66; PULSE 65; RESP 16; TEMP 36.7; O2SAT 99
[2022-09-16 09:45] VITALS: BP 127/72; PULSE 83; TEMP 36.6; O2SAT 100
[2022-09-16] MEDS: Gabapentin 400 MG CAPSULE 800 MG PO ×3 (09:52→21:28)
[2022-09-16] MEDS: Amphetamine Mixed Salts 10 MG TABLET 30 MG PO ×2 (09:52→14:30)
[2022-09-16] MEDS: buPROPion HCl XL 150 MG TAB.ER.24H PO (09:52)
[2022-09-16] MEDS: busPIRone HCl 5 MG TABLET 15 MG PO ×2 (09:52→21:28)
[2022-09-16] MEDS: Cyclobenzaprine HCl 10 MG TABLET PO ×2 (12:34→21:28)
[2022-09-16] MEDS: Nicotine Polacrilex 2 MG GUM 4 MG BUCCAL ×2 (12:35→19:03)
--- NOTE | 2022-09-16 13:22 | HO.PSYCHPN ---
Subjective Subjective Date of Service: 09/16/22 Reason For Visit: VH/SI Interim History: Discussed with team. Spoke with pt, says he thinks he saw a ghost in his room, saw a dark shadow right behind him. Says this is not the first time that's happened. [place] like the whole room got dark. Otherwise, says he is alright. Still complains of sleep but attributes this to his roommate's snoring. Still, he was able to get more than 4 hours on increased seroquel. Has not had EKG yet but will obtain to monitor QTc. Asks for seroquel to be increased to 300 mg HS. Still wants to go up on methadone. Says he is getting cravings and he feels so uncomfortable when he gets those cravings. Feels safe. Mental Status Exam Mental Status Exam Narrative: A&O. Thin, tattooed, unkempt. Good eye contact, attentive. No Tics or Tremors. No abnormal involuntary movements. Calm, cooperative, engaged. Non-pressured speech, spontaneous with regular rate and rhythm, normal volume and prosody. No prolonged speech latency or dysarthria. Mood is ?better,? affect is euthymic. Endorses passive SI without plan or intent. Denies SIB/HI upon inquiry. Denies A/VH or delusional thought content. Thoughts are coherent, organized. No known cognitive or memory impairment. Insight/ Judgment fair and adequate. Diagnostics Vital Signs (24Hr): Vital Signs - 24 hr 09/15/22 21:02 09/16/22 09:45 Temperature 98.1 F 97.9 F Pulse Rate 65 83 Respiratory Rate 16 Blood Pressure 128/66 127/72 Pulse Oximetry 99 100 Oxygen Delivery Method Room Air Room Air BMI result Body Mass Index 21.9 Labs Results: 09/14/22 16:59 09/12/22 17:36 Labs: Laboratory Results - last 48 hr 09/14/22 09/14/22 09/14/22 16:58 16:59 16:59 WBC 4.2 L RBC 5.28 Hgb 13.6 L Hct 43.6 D MCV 82.6 MCH 25.8 L MCHC 31.2 RDW 13.9 Plt Count 282 MPV 8.8 L Immature Gran % (Auto) 0.2 Neut % (Auto) 35.4 L Lymph % (Auto) 52.0 H Archer % (Auto) 11.3 H Eos % (Auto) 0.9 Baso % (Auto) 0.2 Lymph # (Auto) 2.2 Archer # (Auto) 0.5 Eos # (Auto) 0.0 Baso # (Auto) 0.0 Abs Immat Gran (auto) 0.01 Absolute Neuts (auto) 1.5 L Absolute Nucleated RBC 0.000 Nucleated RBC % (auto) 0.0 ESR 30 H C-Reactive Protein 1.13 H Imaging Radiology Impressions: ITS Impressions Chest X-Ray 09/12/22 16:27 IMPRESSION: -Non-specific blunting right lateral costophrenic angle with lateral tenting diaphragm, which may suggest small subpulmonic effusion. -Mild coarsening bronchiolar markings. No hyperinflation. No lobar or segmental airspace consolidation. Ankle X-Ray 09/14/22 16:13 IMPRESSION: 1. Bimalleolar soft tissue swelling right ankle. There are small bone fragment along the tip of medial and lateral malleoli likely subacute to old. No visible acute fracture or dislocation seen. 2. Unremarkable left ankle exam.. Ankle X-Ray 09/14/22 16:13 IMPRESSION: 1. Bimalleolar soft tissue swelling right ankle. There are small bone fragment along the tip of medial and lateral malleoli likely subacute to old. No visible acute fracture or dislocation seen. 2. Unremarkable left ankle exam.. Medications Medications Current Medications Acetaminophen (Acetaminophen 325 Mg Tablet) 650 mg PO Q6H PRN PRN Reason: Headache/Pain Mild Scale (1-3) Al Hydroxide/Mg Hydroxide (Magnesium Hydrox/Alum Hydrox 30 Ml Oral.Susp) 30 ml PO Q6H PRN PRN Reason: Heartburn/Nausea Albuterol Sulfate (Albuterol Sulfate 90 Mcg 8 Gm Inhaler) 2 puff INHALE Q4H PRN PRN Reason: Wheezing Amphetamine/Dextroamphetamine (Amphetamine Mixed Salts 10 Mg Tablet) 30 mg PO BID@0800,1400 [facility] Last Admin: 09/16/22 09:52 Dose: 30 mg Bupropion HCl (Bupropion Hcl Xl 150 Mg Tab.Er.24h) 150 mg PO DAILY [facility] Last Admin: 09/16/22 09:52 Dose: 150 mg Buspirone HCl (Buspirone Hcl 5 Mg Tablet) 15 mg PO BID [facility] Last Admin: 09/16/22 09:52 Dose: 15 mg Clonidine HCl (Clonidine Hcl 0.1 Mg Tablet) 0.1 mg PO TID PRN; Protocol PRN Reason: anxiety Last Admin: 09/14/22 11:52 Dose: 0.1 mg Cyclobenzaprine HCl (Cyclobenzaprine Hcl 10 Mg Tablet) 10 mg PO BID PRN PRN Reason: muscle spasm Last Admin: 09/16/22 12:34 Dose: 10 mg Gabapentin (Gabapentin 400 Mg Capsule) 800 mg PO TID [facility] Last Admin: 09/16/22 09:52 Dose: 800 mg Hydrocortisone (Hydrocortisone 1 % Cream 28.35 Gm Tube) 1 appl TOPICAL BID PRN PRN Reason: eczema Last Admin: 09/14/22 16:59 Dose: 1 appl Hydroxyzine HCl (Hydroxyzine Hcl 50 Mg Tablet) 50 mg PO Q6H PRN PRN Reason: Anxiety Last Admin: 09/14/22 11:53 Dose: 50 mg Ibuprofen (Ibuprofen 600 Mg Tablet) 600 mg PO Q6H PRN PRN Reason: pain, moderate Last Admin: 09/15/22 20:58 Dose: 600 mg Loperamide HCl (Loperamide Hcl 2 Mg Capsule) 4 mg PO Q4H PRN PRN Reason: diarrhea Magnesium Hydroxide (Milk Of Magnesia 30 Ml Oral.Susp) 30 ml PO DAILY PRN PRN Reason: Constipation Methadone HCl (Methadone Hcl 20 Mg/2 Ml Oral.Conc) 55 mg PO DAILY [facility] Last Admin: 09/16/22 09:53 Dose: 55 mg Nicotine (Nicotine 21 Mg Patch.Td24) 21 mg TRANSDERMA DAILY [facility] Last Admin: 09/16/22 09:54 Dose: Not Given Nicotine Polacrilex (Nicotine Polacrilex 2 Mg Gum) 4 mg BUCCAL Q2H PRN PRN Reason: Nicotine Cravings Last Admin: 09/16/22 12:35 Dose: 4 mg Ondansetron HCl (Ondansetron Odt 4 Mg Tab.Rapdis) 4 mg TRANSLINGU Q8H PRN PRN Reason: nausea Polyethylene Glycol (Polyethylene Glycol 3350 17 Gm Powd.Pack) 17 gm PO BID PRN PRN Reason: constipation Last Admin: 09/14/22 20:28 Dose: 17 gm Prazosin HCl (Prazosin Hcl 1 Mg Capsule) 2 mg PO BEDTIME [facility]; Protocol Last Admin: 09/15/22 20:57 Dose: 2 mg Quetiapine Fumarate (Quetiapine Fumarate 200 Mg Tablet) 200 mg PO BEDTIME [facility] Last Admin: 09/15/22 20:58 Dose: 200 mg Allergies Allergies Allergy/AdvReac Type Severity Reaction Status Date / Time haloperidol [From HALDOL] AdvReac Intermediate LOCK JAW Verified 07/31/22 01:56 olanzapine [From ZYPREXA] AdvReac Unknown PT REPORTS Verified 07/31/22 01:56 FEELS LIKE I AM ON AN ACID TRIP Assessment & Plan Assessment & Plan (1) Major depression with psychotic features: Status: Acute Code(s): F32.3 - Major depressive disorder, single episode, severe with psychotic features (2) Opioid use disorder, severe, dependence: Status: Acute Code(s): F11.20 - Opioid dependence, uncomplicated (3) ADHD: Status: Acute Code(s): F90.9 - Attention-deficit hyperactivity disorder, unspecified type Plan Moses is a 36 yo male who carries a dx of ADHD, Opioid Use DO, and MDD recurrent. He arrived to [facility] on 09/12/22 due to being found by [place] PD acting erratically. He told PD and ED providers that he ?stepped on a ratFlexiantsnack nest? and had been bitten repeatedly in the ankles. Per ED note, there are no bite perez, erythema, and skin is intact. Pt has not been sleeping adequately and reported increasing depression in the context of chronic relapsing. Utox positive for opiates, fentanyl, cocaine, and cannabis. He has since cleared of his psychotic sx and endorses sx of worsening depression, passive SI. He is advocating for an increase in his methadone dose. Has long hx of chronic relapsing since adolescence and neglect of self care in the context of polysubstance abuse. He has hx of trauma and incarceration. Plan: 09/14: Pt known to psych service. Will increase methadone to 50 mg, obtain updated EKG, addiction consult placed. Monitor QTc. Will re-start seroquel at 100 mg HS for mood stability, sleep, and anxiety and again monitor QTc. Will re-start buspar 15 mg BID for anxiety. Will re-start wellbutrin XL 150 mg QAM for sx of depression. Added comfort meds, COWs. 09/15: Methadone increased to 55 mg by network operations specialist, will re-check EKG. Increase seroquel to 200 mg HS. 09/16: Increase seroquel to 300 mg HS, recheck EKG. Q15 min safety checks, CV Monitor response to medications. Monitor for safety in the milieu. Discharge on stabilization. Patient seen. Chart reviewed. Discussed with team. Obtain collateral contact info?as needed Patient educated on: medication risk/benefits and therapeutic strategies Reason for contiued inpatient stay Substantial Risk for: med/psych decompensation Time Spent With Patient Time: Total time managing care of this patient today ____ minutes.
[2022-09-16] MEDS: hydrOXYzine HCL 50 MG TABLET PO ×2 (14:31→21:28)
[2022-09-16] MEDS: Acetaminophen 325 MG TABLET 650 MG PO (19:03)
[2022-09-16 20:30] VITALS: BP 126/68; PULSE 88; RESP 16; TEMP 36.8; O2SAT 98
[2022-09-16] MEDS: QUEtiapine Fumarate 300 MG TABLET PO (21:28)
[2022-09-16] MEDS: Prazosin HCL 1 MG CAPSULE 2 MG PO (21:28)
[2022-09-17 09:50] VITALS: BP 127/62; PULSE 88; TEMP 36.7; O2SAT 99
[2022-09-17] MEDS: methADONE HCl 20 MG/2 ML ORAL.CONC 65 MG PO (09:58)
[2022-09-17] MEDS: Gabapentin 400 MG CAPSULE 800 MG PO ×3 (09:59→21:12)
[2022-09-17] MEDS: Amphetamine Mixed Salts 10 MG TABLET 30 MG PO ×2 (09:59→15:09)
[2022-09-17] MEDS: busPIRone HCl 5 MG TABLET 15 MG PO ×2 (10:00→21:13)
[2022-09-17] MEDS: buPROPion HCl XL 150 MG TAB.ER.24H PO (10:00)
[2022-09-17] MEDS: Nicotine Polacrilex 2 MG GUM 4 MG BUCCAL ×3 (12:06→20:10)
--- NOTE | 2022-09-17 13:24 | P.PNPSI_ITS ---
Subjective Subjective Date of Service: 09/17/22 Reason For Visit: VH/SI Interim History: calm, cooperative. feeling not depressed, and OK. able to concentrate, has a level mood. denies SI/VH past couple of days. denies HI. met with BRITNI and , discussed dispo options, reviewed recent Hx. planning to DC in the next coupld of days. Mental Status Exam Mental Status Exam Narrative: A&O. Thin, tattooed, unkempt. Good eye contact, attentive. No Tics or Tremors. No abnormal involuntary movements. Calm, cooperative, engaged. Non-pressured speech, spontaneous with regular rate and rhythm, normal volume and prosody. No prolonged speech latency or dysarthria. Mood is ?not depressed, OK,? affect is euthymic. denies SI/HI/AVH. Thoughts are coherent, organized. No known cognitive or memory impairment. Insight/ Judgment fair and adequate. Diagnostics Vital Signs (24Hr): Vital Signs - 24 hr 09/16/22 20:30 09/17/22 09:50 Temperature 98.3 F 98.1 F Pulse Rate 88 88 Respiratory Rate 16 Blood Pressure 126/68 127/62 Pulse Oximetry 98 99 Oxygen Delivery Method Room Air Room Air BMI result Body Mass Index 21.9 Labs Results: 09/14/22 16:59 09/12/22 17:36 Imaging Radiology Impressions: ITS Impressions Chest X-Ray 09/12/22 16:27 IMPRESSION: -Non-specific blunting right lateral costophrenic angle with lateral tenting diaphragm, which may suggest small subpulmonic effusion. -Mild coarsening bronchiolar markings. No hyperinflation. No lobar or segmental airspace consolidation. Ankle X-Ray 09/14/22 16:13 IMPRESSION: 1. Bimalleolar soft tissue swelling right ankle. There are small bone fragment along the tip of medial and lateral malleoli likely subacute to old. No visible acute fracture or dislocation seen. 2. Unremarkable left ankle exam.. Ankle X-Ray 09/14/22 16:13 IMPRESSION: 1. Bimalleolar soft tissue swelling right ankle. There are small bone fragment along the tip of medial and lateral malleoli likely subacute to old. No visible acute fracture or dislocation seen. 2. Unremarkable left ankle exam.. Medications Medications Current Medications Acetaminophen (Acetaminophen 325 Mg Tablet) 650 mg PO Q6H PRN PRN Reason: Headache/Pain Mild Scale (1-3) Last Admin: 09/16/22 19:03 Dose: 650 mg Al Hydroxide/Mg Hydroxide (Magnesium Hydrox/Alum Hydrox 30 Ml Oral.Susp) 30 ml PO Q6H PRN PRN Reason: Heartburn/Nausea Albuterol Sulfate (Albuterol Sulfate 90 Mcg 8 Gm Inhaler) 2 puff INHALE Q4H PRN PRN Reason: Wheezing Amphetamine/Dextroamphetamine (Amphetamine Mixed Salts 10 Mg Tablet) 30 mg PO BID@0800,1400 [facility] Last Admin: 09/17/22 09:59 Dose: 30 mg Bupropion HCl (Bupropion Hcl Xl 150 Mg Tab.Er.24h) 150 mg PO DAILY [facility] Last Admin: 09/17/22 10:00 Dose: 150 mg Buspirone HCl (Buspirone Hcl 5 Mg Tablet) 15 mg PO BID [facility] Last Admin: 09/17/22 10:00 Dose: 15 mg Clonidine HCl (Clonidine Hcl 0.1 Mg Tablet) 0.1 mg PO TID PRN; Protocol PRN Reason: anxiety Last Admin: 09/14/22 11:52 Dose: 0.1 mg Cyclobenzaprine HCl (Cyclobenzaprine Hcl 10 Mg Tablet) 10 mg PO BID PRN PRN Reason: muscle spasm Last Admin: 09/16/22 21:28 Dose: 10 mg Gabapentin (Gabapentin 400 Mg Capsule) 800 mg PO TID [facility] Last Admin: 09/17/22 09:59 Dose: 800 mg Hydrocortisone (Hydrocortisone 1 % Cream 28.35 Gm Tube) 1 appl TOPICAL BID PRN PRN Reason: eczema Last Admin: 09/14/22 16:59 Dose: 1 appl Hydroxyzine HCl (Hydroxyzine Hcl 50 Mg Tablet) 50 mg PO Q6H PRN PRN Reason: Anxiety Last Admin: 09/16/22 21:28 Dose: 50 mg Ibuprofen (Ibuprofen 600 Mg Tablet) 600 mg PO Q6H PRN PRN Reason: pain, moderate Last Admin: 09/15/22 20:58 Dose: 600 mg Loperamide HCl (Loperamide Hcl 2 Mg Capsule) 4 mg PO Q4H PRN PRN Reason: diarrhea Magnesium Hydroxide (Milk Of Magnesia 30 Ml Oral.Susp) 30 ml PO DAILY PRN PRN Reason: Constipation Methadone HCl (Methadone Hcl 20 Mg/2 Ml Oral.Conc) 65 mg PO DAILY [facility] Last Admin: 09/17/22 09:58 Dose: 65 mg Nicotine (Nicotine 21 Mg Patch.Td24) 21 mg TRANSDERMA DAILY [facility] Last Admin: 09/17/22 10:02 Dose: Not Given Nicotine Polacrilex (Nicotine Polacrilex 2 Mg Gum) 4 mg BUCCAL Q2H PRN PRN Reason: Nicotine Cravings Last Admin: 09/17/22 12:06 Dose: 4 mg Ondansetron HCl (Ondansetron Odt 4 Mg Tab.Rapdis) 4 mg TRANSLINGU Q8H PRN PRN Reason: nausea Polyethylene Glycol (Polyethylene Glycol 3350 17 Gm Powd.Pack) 17 gm PO BID PRN PRN Reason: constipation Last Admin: 09/14/22 20:28 Dose: 17 gm Prazosin HCl (Prazosin Hcl 1 Mg Capsule) 2 mg PO BEDTIME [facility]; Protocol Last Admin: 09/16/22 21:28 Dose: 2 mg Quetiapine Fumarate (Quetiapine Fumarate 300 Mg Tablet) 300 mg PO BEDTIME [facility] Last Admin: 09/16/22 21:28 Dose: 300 mg Allergies Allergies Allergy/AdvReac Type Severity Reaction Status Date / Time haloperidol [From HALDOL] AdvReac Intermediate LOCK JAW Verified 07/31/22 01:56 olanzapine [From ZYPREXA] AdvReac Unknown PT REPORTS Verified 07/31/22 01:56 FEELS LIKE I AM ON AN ACID TRIP Assessment & Plan Assessment & Plan (1) Cocaine use: Status: Acute Code(s): F14.90 - Cocaine use, unspecified, uncomplicated (2) Opioid use disorder, severe, dependence: Status: Acute Code(s): F11.20 - Opioid dependence, uncomplicated (3) ADHD: Status: Acute Code(s): F90.9 - Attention-deficit hyperactivity disorder, unspecified type (4) Mood disorder: Status: Acute Code(s): F39 - Unspecified mood [affective] disorder (5) Brief situational non-psychotic disorder: Status: Acute Code(s): F48.8 - Other specified nonpsychotic mental disorders Plan Moses is a 36 yo male who carries a dx of ADHD, Opioid Use DO, and MDD recurrent. He arrived to [facility] on 09/12/22 due to being found by [place] PD acting erratically. He told PD and ED providers that he ?stepped on a rattlesnack nest? and had been bitten repeatedly in the ankles. Per ED note, there are no bite perez, erythema, and skin is intact. Pt has not been sleeping adequately and reported increasing depression in the context of chronic relapsing. Utox positive for opiates, fentanyl, cocaine, and cannabis. He has since cleared of his psychotic sx and endorses sx of worsening depression, passive SI. He is advocating for an increase in his methadone dose. Has long hx of chronic relapsing since adolescence and neglect of self care in the context of polysubstance abuse. He has hx of trauma and incarceration. Plan: 09/14: Pt known to psych service. Will increase methadone to 50 mg, obtain updated EKG, addiction consult placed. Monitor QTc. Will re-start seroquel at 100 mg HS for mood stability, sleep, and anxiety and again monitor QTc. Will re- start buspar 15 mg BID for anxiety. Will re-start wellbutrin XL 150 mg QAM for sx of depression. Added comfort meds, COWs. 09/15: Methadone increased to 55 mg by financial retirement plan specialist, will re-check EKG. Increase seroquel to 200 mg HS. 09/16: Increase seroquel to 300 mg HS, recheck EKG. 09/17: improved, stable, no changes to Tx plan. planning for DC later this week. Reason for contiued inpatient stay Substantial Risk for: rapid decompensation Time Spent With Patient Time: Total time managing care of this patient today _25___ minutes.
[2022-09-17] MEDS: Cyclobenzaprine HCl 10 MG TABLET PO ×2 (15:11→21:12)
--- NOTE | 2022-09-17 15:40 | P.PNADD_ITS ---
Subjective Subjective Date of Service: 09/17/22 Reason For Visit: VH/SI Interim History: Patient seen in follow up. Well known to this curriculum writer and the [facility] via previous admissions. Started on methadone 30mg on 09/13 and dose titration by this curriculum writer. Today received methadone 65mg Patient seen on M3. Awake, alert, pleasant and engaged in interview. Reports feeling much better than I was . Most withdrawal sx have resolved, still having some chills and piloerection. Review of Systems Constitutional: Reports as per HPI Mental Status Exam Mental Status Exam Patient Appearance: Well Grooomed and Appropriate Level of Consciousness: Awake and Appropriate Patient Behavior: Appropriate, Talkative and Cooperative Diagnostics Vital Signs (24Hr): Vital Signs - 24 hr 09/16/22 20:30 09/17/22 09:50 Temperature 98.3 F 98.1 F Pulse Rate 88 88 Respiratory Rate 16 Blood Pressure 126/68 127/62 Pulse Oximetry 98 99 Oxygen Delivery Method Room Air Room Air BMI result Body Mass Index 21.9 Labs Results: 09/14/22 16:59 09/12/22 17:36 Imaging Radiology Impressions: ITS Impressions Chest X-Ray 09/12/22 16:27 IMPRESSION: -Non-specific blunting right lateral costophrenic angle with lateral tenting diaphragm, which may suggest small subpulmonic effusion. -Mild coarsening bronchiolar markings. No hyperinflation. No lobar or segmental airspace consolidation. Ankle X-Ray 09/14/22 16:13 IMPRESSION: 1. Bimalleolar soft tissue swelling right ankle. There are small bone fragment along the tip of medial and lateral malleoli likely subacute to old. No visible acute fracture or dislocation seen. 2. Unremarkable left ankle exam.. Ankle X-Ray 09/14/22 16:13 IMPRESSION: 1. Bimalleolar soft tissue swelling right ankle. There are small bone fragment along the tip of medial and lateral malleoli likely subacute to old. No visible acute fracture or dislocation seen. 2. Unremarkable left ankle exam.. Medications Medications Current Medications Acetaminophen (Acetaminophen 325 Mg Tablet) 650 mg PO Q6H PRN PRN Reason: Headache/Pain Mild Scale (1-3) Last Admin: 09/16/22 19:03 Dose: 650 mg Al Hydroxide/Mg Hydroxide (Magnesium Hydrox/Alum Hydrox 30 Ml Oral.Susp) 30 ml PO Q6H PRN PRN Reason: Heartburn/Nausea Albuterol Sulfate (Albuterol Sulfate 90 Mcg 8 Gm Inhaler) 2 puff INHALE Q4H PRN PRN Reason: Wheezing Amphetamine/Dextroamphetamine (Amphetamine Mixed Salts 10 Mg Tablet) 30 mg PO BID@0800,1400 [facility] Last Admin: 09/17/22 15:09 Dose: 30 mg Bupropion HCl (Bupropion Hcl Xl 150 Mg Tab.Er.24h) 150 mg PO DAILY [facility] Last Admin: 09/17/22 10:00 Dose: 150 mg Buspirone HCl (Buspirone Hcl 5 Mg Tablet) 15 mg PO BID [facility] Last Admin: 09/17/22 10:00 Dose: 15 mg Clonidine HCl (Clonidine Hcl 0.1 Mg Tablet) 0.1 mg PO TID PRN; Protocol PRN Reason: anxiety Last Admin: 09/14/22 11:52 Dose: 0.1 mg Cyclobenzaprine HCl (Cyclobenzaprine Hcl 10 Mg Tablet) 10 mg PO BID PRN PRN Reason: muscle spasm Last Admin: 09/17/22 15:11 Dose: 10 mg Gabapentin (Gabapentin 400 Mg Capsule) 800 mg PO TID [facility] Last Admin: 09/17/22 15:08 Dose: 800 mg Hydrocortisone (Hydrocortisone 1 % Cream 28.35 Gm Tube) 1 appl TOPICAL BID PRN PRN Reason: eczema Last Admin: 09/14/22 16:59 Dose: 1 appl Hydroxyzine HCl (Hydroxyzine Hcl 50 Mg Tablet) 50 mg PO Q6H PRN PRN Reason: Anxiety Last Admin: 09/16/22 21:28 Dose: 50 mg Ibuprofen (Ibuprofen 600 Mg Tablet) 600 mg PO Q6H PRN PRN Reason: pain, moderate Last Admin: 09/15/22 20:58 Dose: 600 mg Loperamide HCl (Loperamide Hcl 2 Mg Capsule) 4 mg PO Q4H PRN PRN Reason: diarrhea Magnesium Hydroxide (Milk Of Magnesia 30 Ml Oral.Susp) 30 ml PO DAILY PRN PRN Reason: Constipation Methadone HCl (Methadone Hcl 20 Mg/2 Ml Oral.Conc) 65 mg PO DAILY [facility] Last Admin: 09/17/22 09:58 Dose: 65 mg Nicotine (Nicotine 21 Mg Patch.Td24) 21 mg TRANSDERMA DAILY [facility] Last Admin: 09/17/22 10:02 Dose: Not Given Nicotine Polacrilex (Nicotine Polacrilex 2 Mg Gum) 4 mg BUCCAL Q2H PRN PRN Reason: Nicotine Cravings Last Admin: 09/17/22 15:11 Dose: 4 mg Ondansetron HCl (Ondansetron Odt 4 Mg Tab.Rapdis) 4 mg TRANSLINGU Q8H PRN PRN Reason: nausea Polyethylene Glycol (Polyethylene Glycol 3350 17 Gm Powd.Pack) 17 gm PO BID PRN PRN Reason: constipation Last Admin: 09/14/22 20:28 Dose: 17 gm Prazosin HCl (Prazosin Hcl 1 Mg Capsule) 2 mg PO BEDTIME [facility]; Protocol Last Admin: 09/16/22 21:28 Dose: 2 mg Quetiapine Fumarate (Quetiapine Fumarate 300 Mg Tablet) 300 mg PO BEDTIME [facility] Last Admin: 09/16/22 21:28 Dose: 300 mg Allergies Allergies Allergy/AdvReac Type Severity Reaction Status Date / Time haloperidol [From HALDOL] AdvReac Intermediate LOCK JAW Verified 07/31/22 01:56 olanzapine [From ZYPREXA] AdvReac Unknown PT REPORTS Verified 07/31/22 01:56 FEELS LIKE I AM ON AN ACID TRIP Assessment & Plan Assessment & Plan (1) Opioid use disorder, severe, dependence: Status: Acute Code(s): F11.20 - Opioid dependence, uncomplicated Assessment and Plan: * continue suboxone at current dose * increase 09/19 to 70mg Total time managing care of this patient today __20__ minutes.
[2022-09-17 20:15] VITALS: BP 136/74; PULSE 89; RESP 16; TEMP 36.6; O2SAT 99
[2022-09-17] MEDS: QUEtiapine Fumarate 300 MG TABLET PO (21:12)
[2022-09-17] MEDS: Prazosin HCL 1 MG CAPSULE 2 MG PO (21:13)
--- NOTE | 2022-09-17 21:40 | MHC.RECOVSUP ---
? Reason for consult:OPI o? Current location:326-2? o? Identified substance use concern:? -? Support ? Intervention: o? Community resources provided o? Harm reduction discussion ? Plan: o? Follow up tomorrow? ? Additional information:[facility] met with pt and provided him with recovery resources including [facility] contact information. Rc also discussed harm reduction and the benefits of working a program, and having a refinery operator light ends recovery. Please follow up tomorrow.
[2022-09-18 08:45] VITALS: BP 119/68; PULSE 60; RESP 16; TEMP 36.2; O2SAT 98
[2022-09-18] MEDS: busPIRone HCl 5 MG TABLET 15 MG PO ×2 (08:49→20:53)
[2022-09-18] MEDS: methADONE HCl 20 MG/2 ML ORAL.CONC 65 MG PO (08:49)
[2022-09-18] MEDS: Amphetamine Mixed Salts 10 MG TABLET 30 MG PO ×2 (08:49→14:16)
[2022-09-18] MEDS: buPROPion HCl XL 150 MG TAB.ER.24H PO (08:49)
[2022-09-18] MEDS: Gabapentin 400 MG CAPSULE 800 MG PO ×3 (08:49→20:52)
[2022-09-18] MEDS: Nicotine Polacrilex 2 MG GUM 4 MG BUCCAL ×4 (09:43→20:52)
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
--- NOTE | 2022-09-18 16:32 | MHC.RECOVRN ---
This marketing underwriter met w/ pt, pt was resting in bed, lights off. This marketing underwriter f/u w/ patient about methadone. Pt reports cold sweats/chills, pt interested in increase. Provider aware.
[2022-09-18] MEDS: Prazosin HCL 1 MG CAPSULE 2 MG PO (20:52)
[2022-09-18] MEDS: Acetaminophen 325 MG TABLET 650 MG PO (20:52)
[2022-09-18] MEDS: hydrOXYzine HCL 50 MG TABLET PO (20:53)
[2022-09-18] MEDS: Cyclobenzaprine HCl 10 MG TABLET PO (20:53)
[2022-09-18] MEDS: QUEtiapine Fumarate 300 MG TABLET PO (20:55)
[2022-09-18 21:00] VITALS: BP 128/68; PULSE 84; RESP 16; TEMP 36.4; O2SAT 96
[2022-09-19 07:00] VITALS: BMI 23.5
[2022-09-19 09:45] VITALS: BP 134/72; PULSE 93; RESP 18; TEMP 36.6; O2SAT 97
[2022-09-19] MEDS: Gabapentin 400 MG CAPSULE 800 MG PO ×3 (09:51→21:23)
[2022-09-19] MEDS: buPROPion HCl XL 150 MG TAB.ER.24H PO (09:51)
[2022-09-19] MEDS: busPIRone HCl 5 MG TABLET 15 MG PO ×2 (09:51→21:23)
[2022-09-19] MEDS: Amphetamine Mixed Salts 10 MG TABLET 30 MG PO ×2 (09:52→15:16)
[2022-09-19] MEDS: methADONE HCl 20 MG/2 ML ORAL.CONC 65 MG PO (09:53)
[2022-09-19] MEDS: Nicotine 21 MG PATCH.TD24 TRANSDERMA (09:54)
[2022-09-19] MEDS: methADONE HCl 20 MG/2 ML ORAL.CONC 5 MG PO (11:37)
[2022-09-19] MEDS: Nicotine Polacrilex 2 MG GUM 4 MG BUCCAL ×3 (11:37→21:23)
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
[2022-09-19] MEDS: polyethylene glycoL 3350 17 GM POWD.PACK PO (15:39)
--- NOTE | 2022-09-19 16:24 | PC.NURSE ---
RENAN Murillo, assumed care of patient.
[2022-09-19] MEDS: Cyclobenzaprine HCl 10 MG TABLET PO (18:10)
[2022-09-19 21:22] VITALS: BP 138/76; PULSE 91; RESP 16; TEMP 36.6; O2SAT 97
[2022-09-19] MEDS: Prazosin HCL 1 MG CAPSULE 2 MG PO (21:23)
[2022-09-19] MEDS: QUEtiapine Fumarate 300 MG TABLET PO (21:23)
[2022-09-19] MEDS: Ibuprofen 600 MG TABLET PO (21:29)
[2022-09-20] MEDS: busPIRone HCl 5 MG TABLET 15 MG PO (07:54)
[2022-09-20] MEDS: buPROPion HCl XL 150 MG TAB.ER.24H PO (07:54)
[2022-09-20] MEDS: Gabapentin 400 MG CAPSULE 800 MG PO (07:54)
[2022-09-20] MEDS: methADONE HCl 20 MG/2 ML ORAL.CONC 70 MG PO (07:55)
[2022-09-20] MEDS: Amphetamine Mixed Salts 10 MG TABLET 30 MG PO (07:55)
[2022-09-20] MEDS: Nicotine Polacrilex 2 MG GUM 4 MG BUCCAL ×2 (07:59→10:30)
[2022-09-20 08:12] VITALS: BP 116/65; PULSE 79; RESP 20; TEMP 36.4; O2SAT 97
--- NOTE | 2022-09-20 08:22 | PC.NURSE ---
Patient is alert, oriented x3, reports he is ready but 'nervouse' for discharge. Denies any medical concerns, denies SI/HI, denies AH/VH. Patient reports he plans to leave after breakfast to go to court. No belongings on unit to review, patient aware all belongings are in decon.
[2022-09-20] MEDS: Cyclobenzaprine HCl 10 MG TABLET PO (10:29)
--- NOTE | 2022-09-20 10:52 | PC.NURSE ---
Patient alert, oriented, affect even. Lyft ride ordered for pt to transport to court. Patient aware, in agreement w plan. No concerns reported.
== END 2022-09-20 10:53 | disposition home or self-care (01) | DRG 751 ==
LOC: HO.ED 09-13 14:03 → HO.PADLT16 09-13 15:33
PROVIDERS: Registered Nurse; Admitting Provider Psychiatry & Neurology Psychiatry; Emergency Provider Emergency Medicine; PCP Family Medicine; Visit Provider Psychiatry & Neurology Psychiatry
DX: F33.3 Major depressive disorder, recurrent, severe with psychotic symptoms (principal); R45.851 Suicidal ideations; F39 Unspecified mood [affective] disorder; F11.20 Opioid dependence, uncomplicated; F17.210 Nicotine dependence, cigarettes, uncomplicated; F90.9 Attention-deficit hyperactivity disorder, unspecified type; F14.90 Cocaine use, unspecified, uncomplicated; Z91.51 Personal history of suicidal behavior; Z20.822 Contact with and (suspected) exposure to COVID-19; Z88.8 Allergy status to other drugs, medicaments and biological substances; Z79.899 Other long term (current) drug therapy
CPT/HCPCS: 36415; 71045; 73610; 80048; 80076; 80307; 81001; 82077; 83605; 83735; 84484; 85025; 85610; 85652; 86140; 87040; 87635; 93005; 99285

== ENCOUNTER 2023-08-29 17:05 | Inpatient (IN) | payer MEDICAID, OTHER, SELFPAY ==
[2023-08-29 17:17] VITALS: BP 168/102; PULSE 108; O2SAT 96
--- NOTE | 2023-08-29 17:18 | ED_ITS ---
HPI - General Adult General Chief complaint: Psychiatric Symptoms Stated complaint: PSYCH CRISIS, USED COCAINE AND MARAJUANA Time Seen by Provider: 08/29/23 17:18 Source: patient and EMS Mode of arrival: EMS Limitations: no limitations History of Present Illness HPI narrative: Patient is a 37 year old assigned male at with a history of substance abuse and delusional disorder presenting to the emergency department today after using PCP, cocaine, weed, heroin, and feeling delusional. Patient states that he used drugs and feels like he is having worsening delusions. Patient denies any dizziness, lightheadedness, abdominal pain, nausea, vomiting, fever, chills, blurry vision, double vision, loss of vision, chest pain, difficulty breathing, shortness of breath, back pain, night sweats, pain with urination, increased urinary frequency, increased urinary urgency, blood in his urine or stool, syncope or a near syncopal episode, recent trauma or falls, bowel incontinence, bladder incontinence, bowel retention, bladder retention, or any other complaints at this time. Relieving factors: none Exacerbating factors: none Associated symptoms: denies other symptoms Treatments prior to arrival: none Related Data Home Medications Medication Instructions Recorded Confirmed buspirone 30 mg tablet 30 mg PO TID 08/29/23 08/29/23 clonidine HCl 0.1 mg tablet 1 tab PO BID anxiety 08/29/23 08/29/23 quetiapine 25 mg tablet 25 mg PO BID PRN anxiety 08/29/23 08/29/23 quetiapine 300 mg tablet 200 mg PO BEDTIME 08/29/23 08/29/23 zolpidem 10 mg tablet 10 mg PO BEDTIME PRN insomnia 08/29/23 08/29/23 Previous Rx's Medication Instructions Recorded albuterol sulfate 90 mcg/actuation 2 puff inhalation Q4H PRN Wheezing 09/19/22 aerosol inhaler (Ventolin HFA) 30 days #1 inhaler dextroamphetamine-amphetamine 30 1 tab PO BID 30 days #60 tabs 09/19/22 mg tablet gabapentin 800 mg tablet 1 tab PO TID 30 days #90 tabs 09/19/22 methadone 10 mg/mL oral 70 mg (7 mL) PO DAILY #0 mL 09/19/22 concentrate (Methadose) nicotine 21 mg/24 hr daily 1 patch transdermal DAILY 28 days 09/19/22 transdermal patch #28 ea prazosin 1 mg capsule 2 cap PO BEDTIME 30 days #60 caps 09/19/22 Allergies Allergy/AdvReac Type Severity Reaction Status Date / Time haloperidol [From HALDOL] AdvReac Intermediate LOCK JAW Verified 07/31/22 01:56 olanzapine [From ZYPREXA] AdvReac Unknown PT REPORTS Verified 07/31/22 01:56 FEELS LIKE I AM ON AN ACID TRIP Review of Systems 2 Constitutional: Constitutional: Reports no additional constitutional complaints, Denies chills, Denies fever(s) and Denies night sweats Eyes: Eyes: Reports no additional eye complaints, Denies blurry vision, Denies change in vision, Denies diplopia, Denies eye discharge, Denies loss of vision and Denies eye pain ENT: Denies dizziness Cardiovascular: Cardiovascular: Reports no additional cardiovascular complaints, Denies chest pain, Denies lightheadedness, Denies Loss of Consciousness and Denies dyspnea Respiratory: Respiratory: Reports no additional respiratory complaints and Denies dyspnea Gastrointestinal: Gastrointestinal: Reports no additional gastrointestinal complaints, Denies abdominal pain, Denies melena, Denies hematochezia, Denies change in bowel habits and Denies change in stool character Genitourinary: Genitourinary: Reports no additional male genitourinary complaints, Denies hematuria, Denies oliguria, Denies difficulty urinating, Denies dysuria, Denies urinary frequency, Denies urinary hesitancy, Denies urinary incontinence and Denies urinary urgency Musculoskeletal: Musculoskeletal: Reports no additional musculoskeletal complaints, Denies numbness and Denies tingling Neurologic: Denies dizziness, Denies loss of vision, Denies numbness and Denies tingling Psychiatric: Psychiatric: Reports paranoia Endocrine: Endocrine: Reports no additional endocrine complaints Hematologic/Lymphatic: Hematologic/Lymphatic: Reports no additional hematologic/lymphatic complaints Allergic/Immunologic: Allergic/Immunologic: Reports no additional allergic/immunologic complaints PMFSH Past Medical History Attestation statement: The following information was validated with the patient. Source: old records reviewed and nursing notes reviewed Medical History Cellulitis Hepatitis C Opiate abuse, continuous Anterior T wave inversion Pulmonary emboli Multiple abrasions ADHD (attention deficit hyperactivity disorder) MDD (major depressive disorder), recurrent episode, moderate Head injury Suicide attempt Abrasion of face Heroin overdose Opiate abuse, continuous Mood disorder ADHD Major depression with psychotic features Endocarditis DVT (deep venous thrombosis) Severe sepsis Anemia Eye contusion Left upper extremity deep vein thrombosis Hepatitis C IV drug abuse Surgical History Hx of eye surgery S/P left knee arthroscopy History of left knee surgery Social History Social History Household Members: None Housing: Apartment Housing Other:: hotel everyday Do you presently have visiting nurse or other home services: No Unable to assess alcohol history related to: Unknown Alcohol intake: current Alcohol intake frequency: a few times a week Alcohol type: hard liquor Comment: 1:1 sitter Patient Tobacco Use Status: Current everyday Tobacco user Tobacco use type: Cigarette Cigarette Packs Per Day: 0.5 Cigarettes Per Day: 10.0 Years Smoked: 15 Smoked in Last 30 Days: Yes e-Cigarette/Vaping Use: Never Used Second Hand Smoke Exposure: No Use of substances other than those prescribed or required for medical reasons: Yes Substance Use Type: Crack/Cocaine, Heroin, Marijuana and Opiates Advance Directives: No Advance Directives Information Provided: No service: No Current occupational status: unemployed Sexual orientation: Straight/Heterosexual Physical Exam ED Vital Signs: Vital Signs - 24 hr 08/29/23 17:23 Temperature 99 F Pulse Rate 103 H Respiratory Rate 20 Blood Pressure 140/91 H Pulse Oximetry 96 Oxygen Delivery Method Room Air BMI result Body Mass Index 25.8 Const General: cooperative, no acute distress, alert and awake Nutritional Appearance: well nourished Orientation/consciousness: patient oriented x3 Limitations: no limitations HENMT Head: Yes normal to inspection and Yes atraumatic Ears: hearing grossly normal bilaterally and external ears normal General nose exam: Normal external nose present, no nasal discharge noted and no epistaxis Face and sinus: Yes normal facial exam, No abrasion and No laceration Mouth: Normal oral and palatal mucosa present, no drooling and no muffled voice Eyes General: appearance normal, both eyes and all related structures Periorbital: periorbital findings normal Eyelids: Yes eyelids normal Conjunctivae: conjunctivae normal Pupils: Equal, round and reactive pupils present EOM: EOMs intact bilaterally Neck Neck: Yes normal visual inspection, Yes full ROM and Yes no lymphadenopathy Chest Chest palpation & inspection: normal inspection of the chest Resp Effort & Inspection: normal respiratory effort and able to speak in complete sentences GI Inspection: Yes normal to inspection Neuro General: patient oriented x3 and moves all extremities Cranial nerves: Yes Equal, round and reactive pupils present Cognition (Neuro): normal cognition Motor exam (neuro): 5/5 motor strength present throughout Sensory Exam: Normal double simultaneous stimulation for sensation Coordination: [id number] test normal Extrem General: Yes normal to inspection, Yes full ROM and Yes capillary refill normal Psych Thought process: Circumstantial thought process present Thought content: delusions Medical Decision Making Medical Decision Making MDM Narrative: Patient is a 37 year old assigned male at with a history of substance abuse and delusional disorder presenting to the emergency department today after substance use and feeling more delusional. Patient's physical exam was as noted in the physical exam portion of this note. Patient's blood work showed a decreased potassium of 2.9, PO potassium ordered. Patient's urine showed is pending. Patient's EKG is pending. Patient is awaiting CARE team evaluation. Will sign out to evening ADELA. Differential Diagnosis Differential Diagnoses: The differential diagnosis associated with the presentation includes Psychosis Substance use Substance abuse Admission/Observation Consideration of admission/observation: Escalation of care including admission/observation considered Decision to admit patient will be made after labs, UA, EKG and CARE evaluation. Lab Data 08/29/23 17:58 08/29/23 17:58 Labs: Lab Results 08/29/23 Range/Units 17:58 WBC 9.9 (4.8-10.8) X10*3/uL RBC 5.22 (4.60-5.80) X10*6/uL Hgb 13.9 L (14.0-18.0) g/dl Hct 42.7 (42.0-52.0) % MCV 81.8 (80.0-98.0) fL MCH 26.6 L (27.0-33.0) pg MCHC 32.6 (31.0-36.0) g/dl RDW 13.9 (11.0-16.0) % Plt Count 343 (160-400) X10*3/uL MPV 9.3 L (9.4-12.4) fL Immature Gran % (Auto) 0.2 (0.0-0.4) % Neut % (Auto) 78.6 H (45-73) % Lymph % (Auto) 11.8 L (20-40) % [place] % (Auto) 8.5 (2-11) % Eos % (Auto) 0.4 (0-4) % Baso % (Auto) 0.5 (0-2) % Lymph # (Auto) 1.2 (1.2-4.9) X10*3/uL [place] # (Auto) 0.8 (0.1-1.2) X10*3/uL Eos # (Auto) 0.0 (0.0-0.4) X10*3/uL Baso # (Auto) 0.1 (0.0-0.2) X10*3/uL Abs Immat Gran (auto) 0.02 (0.00-0.03) X10*3/uL Absolute Neuts (auto) 7.8 (2.0-8.3) x10*3/uL Absolute Nucleated RBC 0.000 (0.0-0.012) X10*3/uL Nucleated RBC % (auto) 0.0 (0.0-0.2) /100WBC Sodium 142 (135-145) mmol/L Potassium 2.9 L D (3.3-5.1) mmol/L Chloride 102 (96-108) mmol/L Carbon Dioxide 27 (22-29) mmol/L Anion Gap 16 (12-20) BUN 11 (9-16) mg/dL Creatinine 0.92 (0.5-1.4) mg/dL Estim Creat Clear Calc 105.3 Estimated GFR > 60 Random Glucose 78 (60-115) mg/dL Calcium 10.6 H D (8.4-10.2) mg/dL Total Bilirubin 0.5 (0.0-1.0) mg/dL AST 42 H (5-37) U/L ALT 42 H (0-40) U/L Alkaline Phosphatase 110 (39-117) U/L Total Protein 9.0 H (6.5-8.0) g/dL Albumin 4.6 (3.5-5.0) g/dL Salicylates < 5.0 L (15-30) mg/dL Acetaminophen < 3 (<30) mcg/mL Ethyl Alcohol < 10 mg/dL Independent Historian Clinical information obtained from an independent historian. History obtained from or confirmed by: EMS (EMS provided additional history and confirmed the history provided by the patient.) Discharge Plan Discharge Clinical Impression: Delusional disorder, Active substance abuse Patient Disposition: Still a Patient Prescriptions: No Action methadone [Methadose] 10 mg/mL Concentrate 70 mg PO DAILY Qty: 0 0RF Rx Instructions: Partial Fill upon patient request. prazosin 1 mg capsule 2 cap PO BEDTIME 30 Days Qty: 60 0RF dextroamphetamine-amphetamine 30 mg tablet 1 tab PO BID 30 Days Qty: 60 0RF gabapentin 800 mg tablet 1 tab PO TID 30 Days Qty: 90 0RF nicotine 21 mg/24 hr patch 24 hour 1 patch transdermal DAILY 28 Days Qty: 28 0RF albuterol sulfate [Ventolin HFA] 90 mcg/actuation HFA aerosol inhaler 2 puff INHALATION Q4H PRN (Reason: Wheezing) 30 Days Qty: 1 0RF clonidine HCl 0.1 mg tablet 1 tab PO BID buspirone 30 mg tablet 30 mg PO TID quetiapine 25 mg tablet 25 mg PO BID PRN (Reason: anxiety) zolpidem 10 mg tablet 10 mg PO BEDTIME PRN (Reason: insomnia) quetiapine 300 mg tablet 200 mg PO BEDTIME Interventions: [place]-Suicide Risk Severity Scale Last Done: 08/29/23 17:27
[2023-08-29 17:23] VITALS: BP 140/91; PULSE 103; RESP 20; TEMP 37.2; O2SAT 96; BMI 25.8
--- NOTE | 2023-08-29 17:38 | ECG_ITS ---
Test Reason : QT INTERVAL Blood Pressure : / mmHG Vent. Rate : 058 BPM Atrial Rate : 058 BPM P-R Int : 128 ms QRS Dur : 080 ms QT Int : 448 ms P-R-T Axes : 005 009 031 degrees QTc Int : 439 ms Sinus bradycardia Otherwise normal ECG When compared with ECG of 16-SEP-2022 21:00, Nonspecific T wave abnormality no longer evident in Lateral leads Referred By: Ondina Huertas Electronically Signed By:Kashmir Dennis
--- NOTE | 2023-08-29 18:15 | PC.NURSE ---
Meds rec completed with patient, states gets methadone at [facility]
[2023-08-29 18:19] LABS: MANUAL DIFF FLAG NO
[2023-08-29 18:23] LABS: Basophils Absolute Auto 0.1 X10*3/uL (0.0-0.2); Basophils Percent Auto 0.5 % (0-2); Eosinophils Percent Auto 0.4 % (0-4); Hematocrit 42.7 % (42.0-52.0); Hemoglobin 13.9 g/dl (14.0-18.0); Imm Gran Abs Auto 0.02 X10*3/uL (0.00-0.03); Imm Gran Pct Auto 0.2 % (0.0-0.4); Lymphocytes Absolute Auto 1.2 X10*3/uL (1.2-4.9); Lymphocytes Percent Auto 11.8 % (20-40); Mean Corpuscular HGB Conc 32.6 g/dl (31.0-36.0); Mean Corpuscular Hemoglobin 26.6 pg (27.0-33.0); Mean Corpuscular Volume 81.8 fL (80.0-98.0); Mean Platelet Volume 9.3 fL (9.4-12.4); Monocytes Absolute Auto 0.8 X10*3/uL (0.1-1.2); Monocytes Percent Auto 8.5 % (2-11); Neutrophils Absolute Auto 7.8 x10*3/uL (2.0-8.3); Neutrophils Percent Auto 78.6 % (45-73); Platelet Count 343 X10*3/uL (160-400); Red Blood Count 5.22 X10*6/uL (4.60-5.80); Red Cell Distribution Width 13.9 % (11.0-16.0); White Blood Count 9.9 X10*3/uL (4.8-10.8)
[2023-08-29 18:46] LABS: Alanine Aminotransferase 42 U/L (0-40); Albumin Level 4.6 g/dL (3.5-5.0); Alkaline Phosphatase 110 U/L (39-117); Anion Gap 16 (12-20); Aspartate Amino Transferase 42 U/L (5-37); Bilirubin Total 0.5 mg/dL (0.0-1.0); Blood Urea Nitrogen 11 mg/dL (9-16); Calcium 10.6 mg/dL (8.4-10.2); Carbon Dioxide 27 mmol/L (22-29); Chloride 102 mmol/L (96-108); Creatinine Clr Calc Pharmacy 105.3; Estimated Glomerular Filt Rate > 60; Ethanol < 10 mg/dL; Glucose Random 78 mg/dL (60-115); Potassium 2.9 mmol/L (3.3-5.1); Sodium 142 mmol/L (135-145)
[2023-08-29 18:48] LABS: Acetaminophen LAB < 3 mcg/mL (<30); Salicylate < 5.0 mg/dL (15-30)
--- NOTE | 2023-08-29 18:48 | PHA.MEDREC ---
Pharmacy Consult ? Medication Reconciliation Pharmacy has reviewed the medication reconciliation completed by Latia. Nory Millan, Carlos AD
[2023-08-29 19:04] LABS: COVID-19 Test Negative (Negative); IDNOW Serial# 08D9AD1C
--- NOTE | 2023-08-29 19:09 | PC.NURSE ---
patient appears to remain at rest at present respirations are even and unlabored patient appears in no distress
[2023-08-29] MEDS: Potassium Chloride Packet 20 MEQ PACKET 40 MEQ PO (19:49)
[2023-08-29] MEDS: LORazepam 1 MG TABLET PO (23:26)
[2023-08-29] MEDS: cloNIDine HCL 0.1 MG TABLET PO (23:38)
[2023-08-29] MEDS: Gabapentin 400 MG CAPSULE 800 MG PO (23:38)
[2023-08-29] MEDS: QUEtiapine Fumarate 200 MG TABLET PO (23:39)
[2023-08-29] MEDS: Prazosin HCL 1 MG CAPSULE 2 MG PO (23:39)
--- NOTE | 2023-08-30 00:57 | MHC.EDTECH ---
EKG unable to be obtained as pt continued to refuse. when approached about the EKG on multiple occasions the pt responded I don't need that shit, I'm not here for my heart but you should know that. rn made aware.
[2023-08-30 00:59] VITALS: BP 138/89; PULSE 100; RESP 18; TEMP 37.2; O2SAT 97
--- NOTE | 2023-08-30 09:05 | HE.PHANOTE ---
METHADONE DOSE CONFIRMATION LAST DOSE OF 65 MG FROM [facility] ON 08/28
[2023-08-30 10:06] VITALS: BP 126/67; PULSE 75; RESP 17; TEMP 36.9; O2SAT 94
[2023-08-30] MEDS: busPIRone HCl 10 MG TABLET 30 MG PO (14:34)
[2023-08-30] MEDS: methADONE HCl 20 MG/2 ML ORAL.CONC 60 MG PO (14:35)
[2023-08-30] MEDS: Gabapentin 400 MG CAPSULE 800 MG PO (14:35)
--- NOTE | 2023-08-30 15:16 | PC.NURSE ---
Moses was in bed resting this morning and was difficult to wake up. Moses refused an EKG and still has not provided a urine sample despite being asked multiple times. He did use the bathroom once this morning but left the urine cup at his bedside and did not provide a sample. Staff will attempt to collect sample next time he uses the facilities. Morning medications not given and PT appeared very sedated VS WNL. OOB at lunchtime and ate 100% lunch and snacks. Medications given including 60mg Methadone PO. No behavioral concerns. Staff to continue to monitor.
--- NOTE | 2023-08-30 19:09 | PC.NURSE ---
patient appears to remain asleep at present respirations are even and unlabored patient appears in no distress
[2023-08-31 06:27] VITALS: RESP 18
[2023-08-31 12:54] LABS: Appearance Urine Clear; Color Urine Yellow; Glucose Urine UA Negative (Negative); Leukocyte Esterase Urine Trace (Negative); Nitrite Urine Negative (Negative); UMIC TRIGGER UACC YES; Urine Blood Negative (Negative); Urine Ketones Negative (Negative); Urine Protein Negative (Neg-Trace)
[2023-08-31 12:59] LABS: Bacteria Urine None Seen (None Seen); Hyaline Casts Urine 0-2 /LPF (0-2); RBC Urine 0-2 /HPF (0-2); Squamous Epithelial Cell Urine 0-2 /HPF (0-2); WBC Urine 0-5 /HPF (0-5)
[2023-08-31 13:03] LABS: Amphetamine Screen Urine Not Detected (Not Detect); Barbiturates, Urine Not Detected (Not Detect); Benzodiazepines Screen Urine Not Detected (Not Detect); Cannabinoid Screen Urine POSITIVE (Not Detect); Cocaine Screen Urine POSITIVE (Not Detect); Fentanyl, urine POSITIVE (Not Detect); Opiate Screen Urine POSITIVE (Not Detect); Phencyclidine Screen Urine Not Detected (Not Detect)
--- NOTE | 2023-08-31 17:35 | PC.NURSE ---
Moses has been in his bed resting all day. Up only to eat and use the bathroom. No behavioral concerns. No medications given as he did not get up. Urine was finally collected and resulted. Pre accepted for inpatient unit tomorrow.
[2023-08-31 18:43] VITALS: BP 121/71; PULSE 63; TEMP 37.3; O2SAT 99
[2023-08-31] MEDS: methADONE HCl 20 MG/2 ML ORAL.CONC 60 MG PO (19:51)
[2023-08-31] MEDS: busPIRone HCl 10 MG TABLET 30 MG PO (20:02)
[2023-08-31] MEDS: Prazosin HCL 1 MG CAPSULE 2 MG PO (20:02)
[2023-08-31] MEDS: cloNIDine HCL 0.1 MG TABLET PO (20:02)
[2023-08-31] MEDS: Gabapentin 400 MG CAPSULE 800 MG PO (20:02)
[2023-08-31] MEDS: QUEtiapine Fumarate 200 MG TABLET PO (20:02)
--- NOTE | 2023-08-31 20:10 | PC.NURSE ---
Pt resting at the bedside. Calm and cooperative. No apparent distress noted. Denies SI/HI. Denies pain. Medicated as per per MAR. Tolerated well.
[2023-08-31 22:00] VITALS: RESP 14
--- NOTE | 2023-09-01 00:20 | PC.NURSE ---
Pt sleeping at the bedside. No apparent distress noted. Breaths are even regular and unlabored with equal chest rises. Monitoring is ongoing.
[2023-09-01 05:16] VITALS: BP 118/57; PULSE 77; RESP 17; TEMP 36.9; O2SAT 94
--- NOTE | 2023-09-01 07:39 | PC.NURSE ---
PT SLEEPING. AWAITING BED ON PSYCH UNIT.
[2023-09-01] MEDS: Potassium Chloride Packet 20 MEQ PACKET 40 MEQ PO (09:50)
[2023-09-01] MEDS: Gabapentin 400 MG CAPSULE 800 MG PO ×3 (09:51→21:38)
[2023-09-01] MEDS: Nicotine 21 MG PATCH.TD24 TRANSDERMA (09:51)
[2023-09-01] MEDS: busPIRone HCl 10 MG TABLET 30 MG PO ×3 (09:51→21:39)
[2023-09-01] MEDS: cloNIDine HCL 0.1 MG TABLET PO ×2 (09:51→21:39)
--- NOTE | 2023-09-01 09:59 | PC.NURSE ---
pt resting in bed, awake and alert. medicated per nov.
[2023-09-01 10:04] VITALS: BP 110/66; PULSE 56; RESP 18; O2SAT 97
[2023-09-01 14:09] LABS: Anion Gap 12 (12-20); Carbon Dioxide 25 mmol/L (22-29); Chloride 109 mmol/L (96-108); Potassium 4.5 mmol/L (3.3-5.1); Sodium 141 mmol/L (135-145)
[2023-09-01] MEDS: methADONE HCl 20 MG/2 ML ORAL.CONC 60 MG PO (17:28)
[2023-09-01 18:00] VITALS: BP 118/72; PULSE 92; RESP 20; TEMP 36.8; O2SAT 97
[2023-09-01] MEDS: Nicotine Polacrilex 2 MG GUM 4 MG BUCCAL (19:54)
[2023-09-01] MEDS: QUEtiapine Fumarate 200 MG TABLET PO (21:39)
[2023-09-01] MEDS: Zolpidem Tartrate 5 MG TABLET 10 MG PO (21:39)
[2023-09-01] MEDS: Prazosin HCL 1 MG CAPSULE 2 MG PO (21:39)
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
[2023-09-02 08:33] LABS: Estimated Average Glucose 108 mg/dL; Hemoglobin A1C 126.0947 umol/L; Hemoglobin A1c % 5.4 % (<6.0)
[2023-09-02 08:39] LABS: Cholesterol 114 mg/dL (<200); HDL Cholesterol 31 mg/dL (>40); LDL Cholesterol Calculated 71 mg/dL (<100); Triglycerides 63 mg/dL (<150)
[2023-09-02 09:15] VITALS: BP 95/45; PULSE 65; RESP 16; TEMP 36.7; O2SAT 96
[2023-09-02] MEDS: methADONE HCl 20 MG/2 ML ORAL.CONC 60 MG PO (09:22)
[2023-09-02] MEDS: busPIRone HCl 10 MG TABLET 30 MG PO ×3 (09:22→20:52)
[2023-09-02] MEDS: Gabapentin 400 MG CAPSULE 800 MG PO ×3 (09:22→20:52)
[2023-09-02] MEDS: Nicotine 21 MG PATCH.TD24 TRANSDERMA (09:23)
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
[2023-09-02] MEDS: buPROPion HCl XL 150 MG TAB.ER.24H PO (11:21)
[2023-09-02] MEDS: methADONE HCl 20 MG/2 ML ORAL.CONC 5 MG PO (11:24)
[2023-09-02] MEDS: hydrOXYzine HCL 25 MG TABLET PO ×2 (13:19→20:54)
[2023-09-02] MEDS: Nicotine Polacrilex 2 MG GUM 4 MG BUCCAL ×3 (13:19→20:54)
[2023-09-02 18:00] VITALS: BP 110/74; PULSE 66; TEMP 37; O2SAT 100
[2023-09-02] MEDS: Hydrocortisone 1 % Cream 28.35 GM TUBE 1 APPL TOPICAL (20:20)
[2023-09-02] MEDS: QUEtiapine Fumarate 200 MG TABLET PO (20:52)
[2023-09-02] MEDS: Prazosin HCL 1 MG CAPSULE 2 MG PO (20:52)
[2023-09-02] MEDS: cloNIDine HCL 0.1 MG TABLET PO (20:52)
[2023-09-02] MEDS: QUEtiapine Fumarate 25 MG TABLET PO (20:54)
[2023-09-02] MEDS: Zolpidem Tartrate 5 MG TABLET 10 MG PO (20:54)
[2023-09-03] MEDS: Nicotine Polacrilex 2 MG GUM 4 MG BUCCAL ×6 (00:52→23:28)
[2023-09-03] MEDS: methADONE HCl 20 MG/2 ML ORAL.CONC 65 MG PO (07:59)
[2023-09-03] MEDS: Gabapentin 400 MG CAPSULE 800 MG PO ×3 (07:59→20:58)
[2023-09-03] MEDS: buPROPion HCl XL 150 MG TAB.ER.24H PO (08:00)
[2023-09-03] MEDS: cloNIDine HCL 0.1 MG TABLET PO ×2 (08:00→20:59)
[2023-09-03] MEDS: busPIRone HCl 10 MG TABLET 30 MG PO ×3 (08:00→20:58)
[2023-09-03] MEDS: Nicotine 21 MG PATCH.TD24 TRANSDERMA (08:01)
[2023-09-03 08:04] VITALS: BP 107/63; PULSE 63; RESP 16; TEMP 36.1; O2SAT 96
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
[2023-09-03] MEDS: hydrOXYzine HCL 25 MG TABLET PO (13:21)
[2023-09-03 17:10] VITALS: BP 95/63; PULSE 64; RESP 16; TEMP 36.9; O2SAT 100
[2023-09-03] MEDS: Zolpidem Tartrate 5 MG TABLET PO (20:58)
[2023-09-03] MEDS: Prazosin HCL 1 MG CAPSULE 2 MG PO (20:58)
[2023-09-03] MEDS: QUEtiapine Fumarate 50 MG TABLET 250 MG PO (20:58)
[2023-09-03 21:03] VITALS: BP 125/65; PULSE 70; RESP 16; O2SAT 98
[2023-09-04] MEDS: buPROPion HCl XL 150 MG TAB.ER.24H PO (09:20)
[2023-09-04] MEDS: Gabapentin 400 MG CAPSULE 800 MG PO ×3 (09:20→20:32)
[2023-09-04] MEDS: busPIRone HCl 10 MG TABLET 30 MG PO ×3 (09:20→20:33)
[2023-09-04] MEDS: cloNIDine HCL 0.1 MG TABLET PO ×2 (09:20→20:33)
[2023-09-04] MEDS: methADONE HCl 20 MG/2 ML ORAL.CONC 70 MG PO (09:20)
[2023-09-04] MEDS: Nicotine 21 MG PATCH.TD24 TRANSDERMA (09:22)
[2023-09-04 09:25] VITALS: BP 106/57; PULSE 58; RESP 16; TEMP 37.1; O2SAT 96
--- NOTE | 2023-09-04 09:44 | HO.PSYCHPN ---
Subjective Subjective Date of Service: 09/04/23 Reason For Visit: delusions Interim History: met with patient; discussed with team Patient reports feeling better. No SI; he is out in the milieu, in the day room with brighter affect. Patient said he did have trouble sleeping last night with reduced Ambien. Discussed how going forward Ambien is not recommended and he agreed to see if he could find other medications that would help him sleep. Remeron he reports causes restless leg; however he like the idea of again trying amitriptyline, which he said he has been on before and found it helpful. Patient hoping very much to get into a program so he can stay sober Mental Status Exam Mental Status Exam Narrative: Pt is alert and oriented; behavior is cooperative, and calm; patient is not in distress; tattooed; dressed in casual attire, adequate hygiene; mood is described as ok...little better and affect congruent, brighter; eye contact appropriate; Speech is normal rate, volume and prosody and not pressured; some psychomotor retardation present; thought process is organized and goal directed; Thought content is on treatment, aftercare options, sobriety; otherwise pertinent to relevant topics and without any delusional content, paranoid ideations or grandiosity; no SI; no HI. Mood congruent AH resolved. Patients insight and judgment fair. Diagnostics Vital Signs (24Hr): Vital Signs - 24 hr 09/03/23 17:10 09/03/23 21:03 09/04/23 09:25 Temperature 98.4 F 98.7 F Pulse Rate 64 70 58 Respiratory Rate 16 16 16 Blood Pressure 95/63 125/65 106/57 L Pulse Oximetry 100 98 96 Oxygen Delivery Method Room Air Room Air Room Air BMI result Body Mass Index 25.8 Labs 08/29/23 17:58 09/01/23 13:46 Medications Medications Current Medications Acetaminophen (Acetaminophen 325 Mg Tablet) 650 mg PO Q6H PRN PRN Reason: Headache/Pain Mild Scale (1-3) Al Hydroxide/Mg Hydroxide (Magnesium Hydrox/Alum Hydrox 30 Ml Oral.Susp) 30 ml PO Q6H PRN PRN Reason: Heartburn/Nausea Bupropion HCl (Bupropion Hcl Xl 150 Mg Tab.Er.24h) 150 mg PO DAILY [facility] Last Admin: 09/04/23 09:20 Dose: 150 mg Buspirone HCl (Buspirone Hcl 10 Mg Tablet) 30 mg PO TID [facility] Last Admin: 09/04/23 09:20 Dose: 30 mg Clonidine HCl (Clonidine Hcl 0.1 Mg Tablet) 0.1 mg PO BID [facility]; Protocol Last Admin: 09/04/23 09:20 Dose: 0.1 mg Clonidine HCl (Clonidine Hcl 0.1 Mg Tablet) 0.1 mg PO Q4H PRN; Protocol PRN Reason: withdrawal symptoms/anxiety Cyclobenzaprine HCl (Cyclobenzaprine Hcl 10 Mg Tablet) 10 mg PO TID PRN PRN Reason: Muscle cramps Dicyclomine HCl (Dicyclomine Hcl 10 Mg Capsule) 10 mg PO TID PRN PRN Reason: stomach cramps Gabapentin (Gabapentin 400 Mg Capsule) 800 mg PO TID [facility] Last Admin: 09/04/23 09:20 Dose: 800 mg Hydrocortisone (Hydrocortisone 1 % Cream 28.35 Gm Tube) 1 appl TOPICAL BID PRN; Protocol PRN Reason: rash; face Last Admin: 09/02/23 20:20 Dose: 1 appl Hydroxyzine HCl (Hydroxyzine Hcl 25 Mg Tablet) 25 mg PO Q6H PRN PRN Reason: Anxiety Last Admin: 09/03/23 13:21 Dose: 25 mg Loperamide HCl (Loperamide Hcl 2 Mg Capsule) 2 mg PO Q6H PRN PRN Reason: Loose Stool Magnesium Hydroxide (Milk Of Magnesia 30 Ml Oral.Susp) 30 ml PO DAILY PRN PRN Reason: Constipation Methadone HCl (Methadone Hcl 20 Mg/2 Ml Oral.Conc) 70 mg PO DAILY [facility] Last Admin: 09/04/23 09:20 Dose: 70 mg Nicotine (Nicotine 21 Mg Patch.Td24) 21 mg TRANSDERMA DAILY [facility] Last Admin: 09/04/23 09:22 Dose: 21 mg Nicotine Polacrilex (Nicotine Polacrilex 2 Mg Gum) 4 mg BUCCAL Q2H PRN PRN Reason: Nicotine Cravings Last Admin: 09/03/23 23:28 Dose: 4 mg Olanzapine (Olanzapine 5 Mg Tablet) 5 mg PO TID PRN PRN Reason: agitation Prazosin HCl (Prazosin Hcl 1 Mg Capsule) 2 mg PO BEDTIME [facility]; Protocol Last Admin: 09/03/23 20:58 Dose: 2 mg Quetiapine Fumarate (Quetiapine Fumarate 25 Mg Tablet) 25 mg PO BID PRN PRN Reason: anxiety Last Admin: 09/02/23 20:54 Dose: 25 mg Quetiapine Fumarate (Quetiapine Fumarate 50 Mg Tablet) 250 mg PO BEDTIME [facility] Last Admin: 09/03/23 20:58 Dose: 250 mg Zolpidem Tartrate (Zolpidem Tartrate 5 Mg Tablet) 5 mg PO BEDTIME PRN PRN Reason: insomnia Last Admin: 09/03/23 20:58 Dose: 5 mg Allergies Allergies Allergy/AdvReac Type Severity Reaction Status Date / Time haloperidol [From HALDOL] AdvReac Intermediate LOCK JAW Verified 07/31/22 01:56 olanzapine [From ZYPREXA] AdvReac Unknown PT REPORTS Verified 07/31/22 01:56 FEELS LIKE I AM ON AN ACID TRIP Assessment & Plan Assessment & Plan (1) Opioid use disorder, severe, dependence: Status: Acute Code(s): F11.20 - Opioid dependence, uncomplicated (2) MDD (major depressive disorder), recurrent episode, moderate: Status: Acute Code(s): F33.1 - Major depressive disorder, recurrent, moderate (3) ADHD (attention deficit hyperactivity disorder): Status: Acute Code(s): F90.9 - Attention-deficit hyperactivity disorder, unspecified type Plan Pt is a 37 yo male with hx of MDD, IV Opioid dependence and polysubstance abuse, hx of endocarditis, DVT who presents for depression, SI and AH in face of polysubstance abuse and medication non-adherence. Pt reports he was recently discharged from [facility] after 10 day stay; he soon relapsed on opioids and intermittently cocaine/PCP and stopped taking meds. Pt reports he was feeling suicidal; he overdosed 2 times on heroin, saying he was not intended to commit suicide but did not really care if he lived or not. He says he was having AH which he says started only after he up for a few days due to substance abuse and has now resolved. Pt reports other psychosocial stressors contributing to mood decomp, including his friend, boss and roommates 1 month ago. Pt wants to get back on medications including Wellbutrin which was on backorder post recent discharge; he also wants to get into a program to help with sobriety. Currently SI and AVH resolved. Diagnosis: Will diagnosed with MDD with psychotic symptoms since AH only present when he has been abusing substances resulting in him going without sleep and when depressed/stressed; have to further review with patient, only episode of delusional thinking he endorses is specifically while intoxicated. Hospital course: 09/03 Patient reports that he is doing much better and denies withdrawal symptoms. He thinks going up to methadone 70 is probably enough for now. Patient asks if he can get back on Adderall, saying he has been on it for 10 years and it is very helpful for him with impulsivity and focus. Review of [place] [facility] shows that patient has been getting this regularly. He shares some history of trauma when he found his father on the bathroom floor, likely from heart attack and that he had subsequent nightmares from that though prazosin has been very helpful. Shadowgraph Operator asked about worries about being followed and patient said that about 2 days before he was admitted to the ED, he did think people were following him, that there were 20 cars driving by that seemed to be signaling each other; he was then on the street and 2 policemen came up to him and asked him if he had a gun and then took him to the emergency room. On further inquiry Patient denies having any other paranoid delusional concerns, reiterated that it was only these 2 days, during which time while patient was significantly intoxicated on PCP and possibly meth 09/04 Patient reports feeling better. No SI; he is out in the milieu, in the day room with brighter affect. Patient said he did have trouble sleeping last night with reduced Ambien. Discussed how going forward Ambien is not recommended and he agreed to see if he could find other medications that would help him sleep. Remeron he reports causes restless leg; however he like the idea of again trying amitriptyline, which he said he has been on before and found it helpful. Patient hoping very much to get into a program so he can stay sober PLAN: CV Q 15 minute checks Restart Adderal xl 30mg daily; normally he takes an IR in afternoon START amitriptyline 20 mg q.h.s. for both insomnia and anxiety/depression BuSpar 30 mg t.i.d. clonidine 0.1 mg b.i.d. gabapentin 800 mg t.i.d. prazosin 2 mg q.h.s. Wellbutrin XL 150 mg daily Seroquel 200 mg q.h.s. Increased Methadone 70 mg daily; patient was getting this dose prior to coming to the ED; feels he needs to be around 100 mg to stay stable; will titrate per his request Patient is also currently prescribed Ambien 10 mg as an outpatient as well as Adderall; both of these medications are somewhat problematic given substance abuse history, however he has remained on and continues to be prescribed them by outpatient provider Patient educated on: diagnosis, medication risk/benefits and substance abuse Informed Consent: understands Reason for continued inpatient stay Substantial Risk for: stable for discharge Time Spent With Patient Time: Total time managing care of this patient today ____ minutes.
[2023-09-04 10:27] VITALS: BMI 27.5
[2023-09-04] MEDS: Dextroamphetamine/Amphetamine XR 5 MG CAP.ER.24H 15 MG PO (12:01)
[2023-09-04] MEDS: Nicotine Polacrilex 2 MG GUM 4 MG BUCCAL ×5 (12:03→20:39)
[2023-09-04 16:55] VITALS: BP 114/58; PULSE 71; RESP 16; TEMP 36.9; O2SAT 98
[2023-09-04] MEDS: QUEtiapine Fumarate 50 MG TABLET 250 MG PO (20:33)
[2023-09-04] MEDS: Prazosin HCL 1 MG CAPSULE 2 MG PO (20:33)
[2023-09-04] MEDS: Amitriptyline HCl 10 MG TABLET 20 MG PO (20:34)
[2023-09-05] MEDS: cloNIDine HCL 0.1 MG TABLET PO ×2 (08:14→20:32)
[2023-09-05] MEDS: methADONE HCl 20 MG/2 ML ORAL.CONC 70 MG PO (08:14)
[2023-09-05] MEDS: busPIRone HCl 10 MG TABLET 30 MG PO ×3 (08:14→20:31)
[2023-09-05] MEDS: Gabapentin 400 MG CAPSULE 800 MG PO ×3 (08:14→20:29)
[2023-09-05] MEDS: buPROPion HCl XL 150 MG TAB.ER.24H PO (08:14)
[2023-09-05] MEDS: Dextroamphetamine/Amphetamine XR 10 MG CAP.ER.24H 30 MG PO (08:14)
[2023-09-05] MEDS: Nicotine 21 MG PATCH.TD24 TRANSDERMA (08:17)
[2023-09-05 08:20] VITALS: BP 103/56; PULSE 60; RESP 18; TEMP 36.6; O2SAT 97
[2023-09-05] MEDS: Nicotine Polacrilex 2 MG GUM 4 MG BUCCAL ×4 (11:06→20:34)
--- NOTE | 2023-09-05 11:55 | P.PNPSI_ITS ---
Subjective Subjective Date of Service: 09/05/23 Reason For Visit: delusions Interim History: Met with patient; discussed with team Mood is better; no SI and no AVH. Says he actually slept pretty well last night and did not need the Ambien. He agrees to have it removed. Patient is hopeful to get into a program. Feels that the Adderall is very helpful. Out in the milieu much more often and going to groups. He thinks he would be helpful to increase methadone to 75 mg, feeling some anxiety about in the afternoons. Mental Status Exam Mental Status Exam Narrative: Pt is alert and oriented; behavior is cooperative, and calm; patient is not in distress; tattooed; dressed in casual attire, adequate hygiene; mood is described as good and affect congruent, brighter; eye contact avoidant; Speech is normal rate, volume and prosody and not pressured; some psychomotor retardation present; thought process is organized and goal directed; Thought content is on treatment, aftercare options, sobriety; otherwise pertinent to relevant topics and without any delusional content, paranoid ideations or grandiosity; no SI; no HI. Mood congruent AH resolved. Patients insight and judgment fair. Diagnostics Vital Signs (24Hr): Vital Signs - 24 hr 09/04/23 16:55 09/05/23 08:20 Temperature 98.4 F 97.9 F Pulse Rate 71 60 Respiratory Rate 16 18 Blood Pressure 114/58 L 103/56 L Pulse Oximetry 98 97 Oxygen Delivery Method Room Air Room Air BMI result Body Mass Index 27.5 Labs 08/29/23 17:58 09/01/23 13:46 Medications Medications Current Medications Acetaminophen (Acetaminophen 325 Mg Tablet) 650 mg PO Q6H PRN PRN Reason: Headache/Pain Mild Scale (1-3) Al Hydroxide/Mg Hydroxide (Magnesium Hydrox/Alum Hydrox 30 Ml Oral.Susp) 30 ml PO Q6H PRN PRN Reason: Heartburn/Nausea Amitriptyline HCl (Amitriptyline Hcl 10 Mg Tablet) 20 mg PO BEDTIME [facility] Last Admin: 09/04/23 20:34 Dose: 20 mg Amphetamine/Dextroamphetamine (Dextroamphetamine/Amphetamine Xr 10 Mg Cap.Er.24h) 30 mg PO DAILY [facility] Last Admin: 09/05/23 08:14 Dose: 30 mg Bupropion HCl (Bupropion Hcl Xl 150 Mg Tab.Er.24h) 150 mg PO DAILY [facility] Last Admin: 09/05/23 08:14 Dose: 150 mg Buspirone HCl (Buspirone Hcl 10 Mg Tablet) 30 mg PO TID [facility] Last Admin: 09/05/23 08:14 Dose: 30 mg Clonidine HCl (Clonidine Hcl 0.1 Mg Tablet) 0.1 mg PO BID [facility]; Protocol Last Admin: 09/05/23 08:14 Dose: 0.1 mg Clonidine HCl (Clonidine Hcl 0.1 Mg Tablet) 0.1 mg PO Q4H PRN; Protocol PRN Reason: withdrawal symptoms/anxiety Cyclobenzaprine HCl (Cyclobenzaprine Hcl 10 Mg Tablet) 10 mg PO TID PRN PRN Reason: Muscle cramps Dicyclomine HCl (Dicyclomine Hcl 10 Mg Capsule) 10 mg PO TID PRN PRN Reason: stomach cramps Gabapentin (Gabapentin 400 Mg Capsule) 800 mg PO TID [facility] Last Admin: 09/05/23 08:14 Dose: 800 mg Hydrocortisone (Hydrocortisone 1 % Cream 28.35 Gm Tube) 1 appl TOPICAL BID PRN; Protocol PRN Reason: rash; face Last Admin: 09/02/23 20:20 Dose: 1 appl Hydroxyzine HCl (Hydroxyzine Hcl 25 Mg Tablet) 25 mg PO Q6H PRN PRN Reason: Anxiety Last Admin: 09/03/23 13:21 Dose: 25 mg Loperamide HCl (Loperamide Hcl 2 Mg Capsule) 2 mg PO Q6H PRN PRN Reason: Loose Stool Magnesium Hydroxide (Milk Of Magnesia 30 Ml Oral.Susp) 30 ml PO DAILY PRN PRN Reason: Constipation Methadone HCl (Methadone Hcl 20 Mg/2 Ml Oral.Conc) 70 mg PO DAILY [facility] Last Admin: 09/05/23 08:14 Dose: 70 mg Nicotine (Nicotine 21 Mg Patch.Td24) 21 mg TRANSDERMA DAILY [facility] Last Admin: 09/05/23 08:17 Dose: 21 mg Nicotine Polacrilex (Nicotine Polacrilex 2 Mg Gum) 4 mg BUCCAL Q2H PRN PRN Reason: Nicotine Cravings Last Admin: 09/05/23 11:06 Dose: 4 mg Olanzapine (Olanzapine 5 Mg Tablet) 5 mg PO TID PRN PRN Reason: agitation Prazosin HCl (Prazosin Hcl 1 Mg Capsule) 2 mg PO BEDTIME [facility]; Protocol Last Admin: 09/04/23 20:33 Dose: 2 mg Quetiapine Fumarate (Quetiapine Fumarate 25 Mg Tablet) 25 mg PO BID PRN PRN Reason: anxiety Last Admin: 09/02/23 20:54 Dose: 25 mg Quetiapine Fumarate (Quetiapine Fumarate 50 Mg Tablet) 250 mg PO BEDTIME [facility] Last Admin: 09/04/23 20:33 Dose: 250 mg Zolpidem Tartrate (Zolpidem Tartrate 5 Mg Tablet) 5 mg PO BEDTIME PRN PRN Reason: insomnia Last Admin: 09/03/23 20:58 Dose: 5 mg Allergies Allergies Allergy/AdvReac Type Severity Reaction Status Date / Time haloperidol [From HALDOL] AdvReac Intermediate LOCK JAW Verified 07/31/22 01:56 olanzapine [From ZYPREXA] AdvReac Unknown PT REPORTS Verified 07/31/22 01:56 FEELS LIKE I AM ON AN ACID TRIP Assessment & Plan Assessment & Plan (1) Opioid use disorder, severe, dependence: Status: Acute Code(s): F11.20 - Opioid dependence, uncomplicated (2) MDD (major depressive disorder), recurrent episode, moderate: Status: Acute Code(s): F33.1 - Major depressive disorder, recurrent, moderate (3) ADHD (attention deficit hyperactivity disorder): Status: Acute Code(s): F90.9 - Attention-deficit hyperactivity disorder, unspecified type Plan Pt is a 37 yo male with hx of MDD, IV Opioid dependence and polysubstance abuse, hx of endocarditis, DVT who presents for depression, SI and AH in face of polysubstance abuse and medication non-adherence. Pt reports he was recently discharged from [facility] after 10 day stay; he soon relapsed on opioids and intermittently cocaine/PCP and stopped taking meds. Pt reports he was feeling suicidal; he overdosed 2 times on heroin, saying he was not intended to commit suicide but did not really care if he lived or not. He says he was having AH which he says started only after he up for a few days due to substance abuse and has now resolved. Pt reports other psychosocial stressors contributing to mood decomp, including his friend, boss and roommates 1 month ago. Pt wants to get back on medications including Wellbutrin which was on backorder post recent discharge; he also wants to get into a program to help with sobriety. Currently SI and AVH resolved. Diagnosis: Will diagnosed with MDD with psychotic symptoms since AH only present when he has been abusing substances resulting in him going without sleep and when depressed/stressed; have to further review with patient, only episode of delusional thinking he endorses is specifically while intoxicated. Hospital course: 09/03 Patient reports that he is doing much better and denies withdrawal symptoms. He thinks going up to methadone 70 is probably enough for now. Patient asks if he can get back on Adderall, saying he has been on it for 10 years and it is very helpful for him with impulsivity and focus. Review of [place] [facility] shows that patient has been getting this regularly. He shares some history of trauma when he found his father on the bathroom floor, likely from heart attack and that he had subsequent nightmares from that though prazosin has been very helpful. Community Engagement Specialist asked about worries about being followed and patient said that about 2 days before he was admitted to the ED, he did think people were following him, that there were 20 cars driving by that seemed to be signaling each other; he was then on the street and 2 policemen came up to him and asked him if he had a gun and then took him to the emergency room. On further inquiry Patient denies having any other paranoid delusional concerns, reiterated that it was only these 2 days, during which time while patient was significantly intoxicated on PCP and possibly meth 09/04 Patient reports feeling better. No SI; he is out in the milieu, in the day room with brighter affect. Patient said he did have trouble sleeping last night with reduced Ambien. Discussed how going forward Ambien is not recommended and he agreed to see if he could find other medications that would help him sleep. Remeron he reports causes restless leg; however he like the idea of again trying amitriptyline, which he said he has been on before and found it helpful. Patient hoping very much to get into a program so he can stay sober 09/05 patient stabilizing; continue current treatment plan PLAN: CV Q 15 minute checks Continue Adderal xl 30mg daily; normally he takes an IR in afternoon Continue amitriptyline 20 mg q.h.s. for both insomnia and anxiety/depression BuSpar 30 mg t.i.d. clonidine 0.1 mg b.i.d. gabapentin 800 mg t.i.d. prazosin 2 mg q.h.s. Wellbutrin XL 150 mg daily Seroquel 200 mg q.h.s. Increased Methadone 75 mg daily; patient was getting this dose prior to coming to the ED; feels he needs to be around 100 mg to stay stable; will titrate per his request Will BRYANNA Shaw; patient said he is sleeping okay without it Patient educated on: diagnosis, medication risk/benefits and substance abuse Informed Consent: understands Reason for continued inpatient stay Substantial Risk for: stable for discharge Time Spent With Patient Time: Total time managing care of this patient today ____ minutes.
[2023-09-05 16:15] VITALS: BP 110/52; PULSE 90; RESP 20; TEMP 36.8; O2SAT 98
[2023-09-05] MEDS: QUEtiapine Fumarate 50 MG TABLET 250 MG PO (20:28)
[2023-09-05] MEDS: Amitriptyline HCl 10 MG TABLET 20 MG PO (20:31)
[2023-09-05] MEDS: Prazosin HCL 1 MG CAPSULE 2 MG PO (20:31)
[2023-09-06 06:00] VITALS: RESP 18
[2023-09-06] MEDS: buPROPion HCl XL 150 MG TAB.ER.24H PO (08:42)
[2023-09-06] MEDS: busPIRone HCl 10 MG TABLET 30 MG PO ×3 (08:42→21:18)
[2023-09-06] MEDS: Dextroamphetamine/Amphetamine XR 10 MG CAP.ER.24H 30 MG PO (08:42)
[2023-09-06] MEDS: Nicotine 21 MG PATCH.TD24 TRANSDERMA (08:42)
--- NOTE | 2023-09-06 08:42 | P.PNPSI_ITS ---
Subjective Subjective Date of Service: 09/06/23 Reason For Visit: delusions Interim History: met with patient; discussed with team Patient reports that he is still somewhat depressed but his anxiety is significantly better. He remains sleeping well even without zolpidem however is a little irritated about his roommate who was up much of the night and making noise. Discussed this and patient says he is able to tolerate and understands that that is what communal living as like. Patient continues to attend groups and is engaged in treatment. Continues to be with good behavioral and impulse control Mental Status Exam Mental Status Exam Narrative: Pt is alert and oriented; behavior is cooperative, and calm; patient is not in distress; tattooed; dressed in casual attire, adequate hygiene; mood is described as good and affect congruent, brighter; eye contact avoidant; Speech is normal rate, volume and prosody and not pressured; some psychomotor retardation present; thought process is organized and goal directed; Thought content is on treatment, aftercare options, sobriety; otherwise pertinent to relevant topics and without any delusional content, paranoid ideations or grandiosity; no SI; no HI. Mood congruent AH resolved. Patients insight and judgment fair. Diagnostics Vital Signs (24Hr): Vital Signs - 24 hr 09/05/23 16:15 Temperature 98.2 F Pulse Rate 90 Respiratory Rate 20 Blood Pressure 110/52 L Pulse Oximetry 98 Oxygen Delivery Method Room Air BMI result Body Mass Index 27.5 Labs 08/29/23 17:58 09/01/23 13:46 Medications Medications Current Medications Acetaminophen (Acetaminophen 325 Mg Tablet) 650 mg PO Q6H PRN PRN Reason: Headache/Pain Mild Scale (1-3) Al Hydroxide/Mg Hydroxide (Magnesium Hydrox/Alum Hydrox 30 Ml Oral.Susp) 30 ml PO Q6H PRN PRN Reason: Heartburn/Nausea Amitriptyline HCl (Amitriptyline Hcl 10 Mg Tablet) 20 mg PO BEDTIME ERNA Last Admin: 09/05/23 20:31 Dose: 20 mg Amphetamine/Dextroamphetamine (Dextroamphetamine/Amphetamine Xr 10 Mg Cap.Er.24h) 30 mg PO DAILY ERNA Last Admin: 09/05/23 08:14 Dose: 30 mg Bupropion HCl (Bupropion Hcl Xl 150 Mg Tab.Er.24h) 150 mg PO DAILY ERNA Last Admin: 09/05/23 08:14 Dose: 150 mg Buspirone HCl (Buspirone Hcl 10 Mg Tablet) 30 mg PO TID [facility] Last Admin: 09/05/23 20:31 Dose: 30 mg Clonidine HCl (Clonidine Hcl 0.1 Mg Tablet) 0.1 mg PO BID [facility]; Protocol Last Admin: 09/05/23 20:32 Dose: 0.1 mg Clonidine HCl (Clonidine Hcl 0.1 Mg Tablet) 0.1 mg PO Q4H PRN; Protocol PRN Reason: withdrawal symptoms/anxiety Cyclobenzaprine HCl (Cyclobenzaprine Hcl 10 Mg Tablet) 10 mg PO TID PRN PRN Reason: Muscle cramps Dicyclomine HCl (Dicyclomine Hcl 10 Mg Capsule) 10 mg PO TID PRN PRN Reason: stomach cramps Gabapentin (Gabapentin 400 Mg Capsule) 800 mg PO TID [facility] Last Admin: 09/05/23 20:29 Dose: 800 mg Hydrocortisone (Hydrocortisone 1 % Cream 28.35 Gm Tube) 1 appl TOPICAL BID PRN; Protocol PRN Reason: rash; face Last Admin: 09/02/23 20:20 Dose: 1 appl Hydroxyzine HCl (Hydroxyzine Hcl 25 Mg Tablet) 25 mg PO Q6H PRN PRN Reason: Anxiety Last Admin: 09/03/23 13:21 Dose: 25 mg Loperamide HCl (Loperamide Hcl 2 Mg Capsule) 2 mg PO Q6H PRN PRN Reason: Loose Stool Magnesium Hydroxide (Milk Of Magnesia 30 Ml Oral.Susp) 30 ml PO DAILY PRN PRN Reason: Constipation Methadone HCl (Methadone Hcl 20 Mg/2 Ml Oral.Conc) 75 mg PO DAILY [facility] Nicotine (Nicotine 21 Mg Patch.Td24) 21 mg TRANSDERMA DAILY [facility] Last Admin: 09/05/23 08:17 Dose: 21 mg Nicotine Polacrilex (Nicotine Polacrilex 2 Mg Gum) 4 mg BUCCAL Q2H PRN PRN Reason: Nicotine Cravings Last Admin: 09/05/23 20:34 Dose: 4 mg Olanzapine (Olanzapine 5 Mg Tablet) 5 mg PO TID PRN PRN Reason: agitation Prazosin HCl (Prazosin Hcl 1 Mg Capsule) 2 mg PO BEDTIME [facility]; Protocol Last Admin: 09/05/23 20:31 Dose: 2 mg Quetiapine Fumarate (Quetiapine Fumarate 25 Mg Tablet) 25 mg PO BID PRN PRN Reason: anxiety Last Admin: 09/02/23 20:54 Dose: 25 mg Quetiapine Fumarate (Quetiapine Fumarate 50 Mg Tablet) 250 mg PO BEDTIME ERNA Last Admin: 09/05/23 20:28 Dose: 250 mg Allergies Allergies Allergy/AdvReac Type Severity Reaction Status Date / Time haloperidol [From HALDOL] AdvReac Intermediate LOCK JAW Verified 07/31/22 01:56 olanzapine [From ZYPREXA] AdvReac Unknown PT REPORTS Verified 07/31/22 01:56 FEELS LIKE I AM ON AN ACID TRIP Assessment & Plan Assessment & Plan (1) Opioid use disorder, severe, dependence: Status: Acute Code(s): F11.20 - Opioid dependence, uncomplicated (2) MDD (major depressive disorder), recurrent episode, moderate: Status: Acute Code(s): F33.1 - Major depressive disorder, recurrent, moderate (3) ADHD (attention deficit hyperactivity disorder): Status: Acute Code(s): F90.9 - Attention-deficit hyperactivity disorder, unspecified type Plan Pt is a 37 yo male with hx of MDD, IV Opioid dependence and polysubstance abuse, hx of endocarditis, DVT who presents for depression, SI and AH in face of polysubstance abuse and medication non-adherence. Pt reports he was recently discharged from [facility] after 10 day stay; he soon relapsed on opioids and intermittently cocaine/PCP and stopped taking meds. Pt reports he was feeling suicidal; he overdosed 2 times on heroin, saying he was not intended to commit suicide but did not really care if he lived or not. He says he was having AH which he says started only after he up for a few days due to substance abuse and has now resolved. Pt reports other psychosocial stressors contributing to mood decomp, including his friend, boss and roommates 1 month ago. Pt wants to get back on medications including Wellbutrin which was on backorder post recent discharge; he also wants to get into a program to help with sobriety. Currently SI and AVH resolved. Diagnosis: Will diagnosed with MDD with psychotic symptoms since AH only present when he has been abusing substances resulting in him going without sleep and when depressed/stressed; have to further review with patient, only episode of delusional thinking he endorses is specifically while intoxicated. Hospital course: 09/03 Patient reports that he is doing much better and denies withdrawal symptoms. He thinks going up to methadone 70 is probably enough for now. Patient asks if he can get back on Adderall, saying he has been on it for 10 years and it is very helpful for him with impulsivity and focus. Review of [place] [facility] shows that patient has been getting this regularly. He shares some history of trauma when he found his father on the bathroom floor, likely from heart attack and that he had subsequent nightmares from that though prazosin has been very helpful. [employer] Operator asked about worries about being followed and patient said that about 2 days before he was admitted to the ED, he did think people were following him, that there were 20 cars driving by that seemed to be signaling each other; he was then on the street and 2 policemen came up to him and asked him if he had a gun and then took him to the emergency room. On further inquiry Patient denies having any other paranoid delusional concerns, reiterated that it was only these 2 days, during which time while patient was significantly intoxicated on PCP and possibly meth 09/04 Patient reports feeling better. No SI; he is out in the milieu, in the day room with brighter affect. Patient said he did have trouble sleeping last night with reduced Ambien. Discussed how going forward Ambien is not recommended and he agreed to see if he could find other medications that would help him sleep. Remeron he reports causes restless leg; however he like the idea of again trying amitriptyline, which he said he has been on before and found it helpful. Patient hoping very much to get into a program so he can stay sober 09/05 patient stabilizing; continue current treatment plan 09/06 remains in good behavioral and impulse control, attending groups and engage in treatment; continue current plan PLAN: CV Q 15 minute checks Continue Adderal xl 30mg daily; normally he takes an IR in afternoon Continue amitriptyline 20 mg q.h.s. for both insomnia and anxiety/depression BuSpar 30 mg t.i.d. clonidine 0.1 mg b.i.d. gabapentin 800 mg t.i.d. prazosin 2 mg q.h.s. Wellbutrin XL 150 mg daily Seroquel 200 mg q.h.s. Continue Methadone 75 mg daily; patient was getting this dose prior to coming to the ED; feels he needs to be around 100 mg to stay stable; will titrate per his request Will BRYANNA Shaw; patient said he is sleeping okay without it Patient educated on: diagnosis, medication risk/benefits and therapeutic strategies Informed Consent: understands Reason for continued inpatient stay Substantial Risk for: stable for discharge Time Spent With Patient Time: Total time managing care of this patient today ____ minutes.
[2023-09-06] MEDS: methADONE HCl 20 MG/2 ML ORAL.CONC 75 MG PO (08:43)
[2023-09-06] MEDS: Gabapentin 400 MG CAPSULE 800 MG PO ×3 (08:43→21:19)
[2023-09-06] MEDS: Nicotine Polacrilex 2 MG GUM 4 MG BUCCAL ×4 (11:21→19:26)
[2023-09-06 21:00] VITALS: BP 123/67; PULSE 83; TEMP 36.6; O2SAT 98
[2023-09-06] MEDS: Prazosin HCL 1 MG CAPSULE 2 MG PO (21:18)
[2023-09-06] MEDS: cloNIDine HCL 0.1 MG TABLET PO (21:18)
[2023-09-06] MEDS: QUEtiapine Fumarate 50 MG TABLET 250 MG PO (21:19)
[2023-09-06] MEDS: Amitriptyline HCl 10 MG TABLET 20 MG PO (21:20)
[2023-09-07 08:20] VITALS: BP 122/77; PULSE 78; RESP 18; TEMP 36.7; O2SAT 97
[2023-09-07] MEDS: Nicotine 21 MG PATCH.TD24 TRANSDERMA (08:31)
[2023-09-07] MEDS: buPROPion HCl XL 150 MG TAB.ER.24H PO (08:32)
[2023-09-07] MEDS: busPIRone HCl 10 MG TABLET 30 MG PO ×3 (08:32→21:11)
[2023-09-07] MEDS: methADONE HCl 20 MG/2 ML ORAL.CONC 75 MG PO (08:32)
[2023-09-07] MEDS: Gabapentin 400 MG CAPSULE 800 MG PO ×3 (08:32→21:12)
[2023-09-07] MEDS: Dextroamphetamine/Amphetamine XR 10 MG CAP.ER.24H 30 MG PO (08:32)
--- NOTE | 2023-09-07 09:58 | HO.PSYCHPN ---
Subjective Subjective Date of Service: 09/07/23 Reason For Visit: delusions Interim History: met with patient; discussed with team Patient says he is doing well; sleeping well; no complaints no requests. Hoping to get into a program soon Mental Status Exam Mental Status Exam Narrative: Pt is alert and oriented; behavior is cooperative, and calm; patient is not in distress; tattooed; dressed in casual attire, adequate hygiene; mood is described as good and affect congruent, brighter; eye contact avoidant; Speech is normal rate, volume and prosody and not pressured; some psychomotor retardation present; thought process is organized and goal directed; Thought content is on treatment, aftercare options, sobriety; otherwise pertinent to relevant topics and without any delusional content, paranoid ideations or grandiosity; no SI; no HI. Mood congruent AH resolved. Patients insight and judgment fair. Diagnostics Vital Signs (24Hr): Vital Signs - 24 hr 09/06/23 21:00 09/07/23 08:20 Temperature 97.8 F 98.1 F Pulse Rate 83 78 Respiratory Rate 18 Blood Pressure 123/67 122/77 Pulse Oximetry 98 97 Oxygen Delivery Method Room Air Room Air BMI result Body Mass Index 27.5 Labs 08/29/23 17:58 09/01/23 13:46 Medications Medications Current Medications Acetaminophen (Acetaminophen 325 Mg Tablet) 650 mg PO Q6H PRN PRN Reason: Headache/Pain Mild Scale (1-3) Al Hydroxide/Mg Hydroxide (Magnesium Hydrox/Alum Hydrox 30 Ml Oral.Susp) 30 ml PO Q6H PRN PRN Reason: Heartburn/Nausea Amitriptyline HCl (Amitriptyline Hcl 10 Mg Tablet) 20 mg PO BEDTIME [facility] Last Admin: 09/06/23 21:20 Dose: 20 mg Amphetamine/Dextroamphetamine (Dextroamphetamine/Amphetamine Xr 10 Mg Cap.Er.24h) 30 mg PO DAILY [facility] Last Admin: 09/07/23 08:32 Dose: 30 mg Bupropion HCl (Bupropion Hcl Xl 150 Mg Tab.Er.24h) 150 mg PO DAILY [facility] Last Admin: 09/07/23 08:32 Dose: 150 mg Buspirone HCl (Buspirone Hcl 10 Mg Tablet) 30 mg PO TID [facility] Last Admin: 09/07/23 08:32 Dose: 30 mg Clonidine HCl (Clonidine Hcl 0.1 Mg Tablet) 0.1 mg PO BID [facility]; Protocol Last Admin: 09/07/23 08:33 Dose: Not Given Clonidine HCl (Clonidine Hcl 0.1 Mg Tablet) 0.1 mg PO Q4H PRN; Protocol PRN Reason: withdrawal symptoms/anxiety Cyclobenzaprine HCl (Cyclobenzaprine Hcl 10 Mg Tablet) 10 mg PO TID PRN PRN Reason: Muscle cramps Dicyclomine HCl (Dicyclomine Hcl 10 Mg Capsule) 10 mg PO TID PRN PRN Reason: stomach cramps Gabapentin (Gabapentin 400 Mg Capsule) 800 mg PO TID E[facility] Last Admin: 09/07/23 08:32 Dose: 800 mg Hydrocortisone (Hydrocortisone 1 % Cream 28.35 Gm Tube) 1 appl TOPICAL BID PRN; Protocol PRN Reason: rash; face Last Admin: 09/02/23 20:20 Dose: 1 appl Hydroxyzine HCl (Hydroxyzine Hcl 25 Mg Tablet) 25 mg PO Q6H PRN PRN Reason: Anxiety Last Admin: 09/03/23 13:21 Dose: 25 mg Loperamide HCl (Loperamide Hcl 2 Mg Capsule) 2 mg PO Q6H PRN PRN Reason: Loose Stool Magnesium Hydroxide (Milk Of Magnesia 30 Ml Oral.Susp) 30 ml PO DAILY PRN PRN Reason: Constipation Methadone HCl (Methadone Hcl 20 Mg/2 Ml Oral.Conc) 75 mg PO DAILY [facility] Last Admin: 09/07/23 08:32 Dose: 75 mg Nicotine (Nicotine 21 Mg Patch.Td24) 21 mg TRANSDERMA DAILY [facility] Last Admin: 09/07/23 08:31 Dose: 21 mg Nicotine Polacrilex (Nicotine Polacrilex 2 Mg Gum) 4 mg BUCCAL Q2H PRN PRN Reason: Nicotine Cravings Last Admin: 09/06/23 19:26 Dose: 4 mg Olanzapine (Olanzapine 5 Mg Tablet) 5 mg PO TID PRN PRN Reason: agitation Prazosin HCl (Prazosin Hcl 1 Mg Capsule) 2 mg PO BEDTIME [facility]; Protocol Last Admin: 09/06/23 21:18 Dose: 2 mg Quetiapine Fumarate (Quetiapine Fumarate 25 Mg Tablet) 25 mg PO BID PRN PRN Reason: anxiety Last Admin: 09/02/23 20:54 Dose: 25 mg Quetiapine Fumarate (Quetiapine Fumarate 50 Mg Tablet) 250 mg PO BEDTIME [facility] Last Admin: 09/06/23 21:19 Dose: 250 mg Allergies Allergies Allergy/AdvReac Type Severity Reaction Status Date / Time haloperidol [From HALDOL] AdvReac Intermediate LOCK JAW Verified 07/31/22 01:56 olanzapine [From ZYPREXA] AdvReac Unknown PT REPORTS Verified 07/31/22 01:56 FEELS LIKE I AM ON AN ACID TRIP Assessment & Plan Assessment & Plan (1) Opioid use disorder, severe, dependence: Status: Acute Code(s): F11.20 - Opioid dependence, uncomplicated (2) MDD (major depressive disorder), recurrent episode, moderate: Status: Acute Code(s): F33.1 - Major depressive disorder, recurrent, moderate (3) ADHD (attention deficit hyperactivity disorder): Status: Acute Code(s): F90.9 - Attention-deficit hyperactivity disorder, unspecified type Plan Pt is a 37 yo male with hx of MDD, IV Opioid dependence and polysubstance abuse, hx of endocarditis, DVT who presents for depression, SI and AH in face of polysubstance abuse and medication non-adherence. Pt reports he was recently discharged from [facility] after 10 day stay; he soon relapsed on opioids and intermittently cocaine/PCP and stopped taking meds. Pt reports he was feeling suicidal; he overdosed 2 times on heroin, saying he was not intended to commit suicide but did not really care if he lived or not. He says he was having AH which he says started only after he up for a few days due to substance abuse and has now resolved. Pt reports other psychosocial stressors contributing to mood decomp, including his friend, boss and roommates 1 month ago. Pt wants to get back on medications including Wellbutrin which was on backorder post recent discharge; he also wants to get into a program to help with sobriety. Currently SI and AVH resolved. Diagnosis: Will diagnosed with MDD with psychotic symptoms since AH only present when he has been abusing substances resulting in him going without sleep and when depressed/stressed; have to further review with patient, only episode of delusional thinking he endorses is specifically while intoxicated. Hospital course: 09/03 Patient reports that he is doing much better and denies withdrawal symptoms. He thinks going up to methadone 70 is probably enough for now. Patient asks if he can get back on Adderall, saying he has been on it for 10 years and it is very helpful for him with impulsivity and focus. Review of [place] shows that patient has been getting this regularly. He shares some history of trauma when he found his father on the bathroom floor, likely from heart attack and that he had subsequent nightmares from that though prazosin has been very helpful. Channel Worker asked about worries about being followed and patient said that about 2 days before he was admitted to the ED, he did think people were following him, that there were 20 cars driving by that seemed to be signaling each other; he was then on the street and 2 policemen came up to him and asked him if he had a gun and then took him to the emergency room. On further inquiry Patient denies having any other paranoid delusional concerns, reiterated that it was only these 2 days, during which time while patient was significantly intoxicated on PCP and possibly meth 09/04 Patient reports feeling better. No SI; he is out in the milieu, in the day room with brighter affect. Patient said he did have trouble sleeping last night with reduced Ambien. Discussed how going forward Ambien is not recommended and he agreed to see if he could find other medications that would help him sleep. Remeron he reports causes restless leg; however he like the idea of again trying amitriptyline, which he said he has been on before and found it helpful. Patient hoping very much to get into a program so he can stay sober 09/05 patient stabilizing; continue current treatment plan 09/06 remains in good behavioral and impulse control, attending groups and engage in treatment; continue current plan 09/07 remains in good behavioral and impulse control; engaged in treatment; hoping to get into program PLAN: CV Q 15 minute checks Continue Adderal xl 30mg daily; normally he takes an IR in afternoon Continue amitriptyline 20 mg q.h.s. for both insomnia and anxiety/depression BuSpar 30 mg t.i.d. clonidine 0.1 mg b.i.d. gabapentin 800 mg t.i.d. prazosin 2 mg q.h.s. Wellbutrin XL 150 mg daily Seroquel 200 mg q.h.s. Continue Methadone 75 mg daily; patient was getting this dose prior to coming to the ED; feels he needs to be around 100 mg to stay stable; will titrate per his request Will BRYANNA Shaw; patient said he is sleeping okay without it Patient educated on: diagnosis Informed Consent: understands Reason for continued inpatient stay Substantial Risk for: stable for discharge Time Spent With Patient Time: Total time managing care of this patient today ____ minutes.
[2023-09-07] MEDS: Nicotine Polacrilex 2 MG GUM 4 MG BUCCAL ×4 (12:52→21:14)
[2023-09-07 18:00] VITALS: BP 125/73; PULSE 80; RESP 17; TEMP 36.9; O2SAT 99
[2023-09-07] MEDS: hydrOXYzine HCL 25 MG TABLET PO (18:33)
[2023-09-07 21:04] VITALS: BP 124/71; PULSE 86; TEMP 36.4; O2SAT 96
[2023-09-07] MEDS: Amitriptyline HCl 10 MG TABLET 20 MG PO (21:11)
[2023-09-07] MEDS: QUEtiapine Fumarate 50 MG TABLET 250 MG PO (21:12)
[2023-09-07] MEDS: cloNIDine HCL 0.1 MG TABLET PO (21:12)
[2023-09-07] MEDS: Prazosin HCL 1 MG CAPSULE 2 MG PO (21:13)
[2023-09-08 08:05] VITALS: BP 118/67; PULSE 63; RESP 18; TEMP 36.7; O2SAT 98
[2023-09-08] MEDS: busPIRone HCl 10 MG TABLET 30 MG PO ×3 (08:36→21:28)
[2023-09-08] MEDS: methADONE HCl 20 MG/2 ML ORAL.CONC 75 MG PO (08:36)
[2023-09-08] MEDS: Dextroamphetamine/Amphetamine XR 10 MG CAP.ER.24H 30 MG PO (08:36)
[2023-09-08] MEDS: buPROPion HCl XL 150 MG TAB.ER.24H PO (08:36)
[2023-09-08] MEDS: Nicotine 21 MG PATCH.TD24 TRANSDERMA (08:36)
[2023-09-08] MEDS: Gabapentin 400 MG CAPSULE 800 MG PO ×3 (08:36→21:29)
--- NOTE | 2023-09-08 09:27 | P.PNPSI_ITS ---
Subjective Subjective Date of Service: 09/08/23 Reason For Visit: delusions Interim History: met with patient; discussed with team Doing well; no complaints no request. Sleeping. Engage in treatment and with good behavioral and impulse control Mental Status Exam Mental Status Exam Narrative: Pt is alert and oriented; behavior is cooperative, and calm; patient is not in distress; tattooed; dressed in casual attire, adequate hygiene; mood is described as good and affect congruent, brighter; eye contact avoidant; Speech is normal rate, volume and prosody and not pressured; some psychomotor retardation present; thought process is organized and goal directed; Thought content is on treatment, aftercare options, sobriety; otherwise pertinent to relevant topics and without any delusional content, paranoid ideations or grandiosity; no SI; no HI. Mood congruent AH resolved. Patients insight and judgment fair. Diagnostics Vital Signs (24Hr): Vital Signs - 24 hr 09/07/23 18:00 09/07/23 21:04 Temperature 98.4 F 97.6 F Pulse Rate 80 86 Respiratory Rate 17 Blood Pressure 125/73 124/71 Pulse Oximetry 99 96 Oxygen Delivery Method Room Air Room Air BMI result Body Mass Index 27.5 Labs 08/29/23 17:58 09/01/23 13:46 Medications Medications Current Medications Acetaminophen (Acetaminophen 325 Mg Tablet) 650 mg PO Q6H PRN PRN Reason: Headache/Pain Mild Scale (1-3) Al Hydroxide/Mg Hydroxide (Magnesium Hydrox/Alum Hydrox 30 Ml Oral.Susp) 30 ml PO Q6H PRN PRN Reason: Heartburn/Nausea Amitriptyline HCl (Amitriptyline Hcl 10 Mg Tablet) 20 mg PO BEDTIME [facility] Last Admin: 09/07/23 21:11 Dose: 20 mg Amphetamine/Dextroamphetamine (Dextroamphetamine/Amphetamine Xr 10 Mg Cap.Er.24h) 30 mg PO DAILY [facility] Last Admin: 09/08/23 08:36 Dose: 30 mg Bupropion HCl (Bupropion Hcl Xl 150 Mg Tab.Er.24h) 150 mg PO DAILY [facility] Last Admin: 09/08/23 08:36 Dose: 150 mg Buspirone HCl (Buspirone Hcl 10 Mg Tablet) 30 mg PO TID [facility] Last Admin: 09/08/23 08:36 Dose: 30 mg Clonidine HCl (Clonidine Hcl 0.1 Mg Tablet) 0.1 mg PO BID [facility]; Protocol Last Admin: 09/07/23 21:12 Dose: 0.1 mg Clonidine HCl (Clonidine Hcl 0.1 Mg Tablet) 0.1 mg PO Q4H PRN; Protocol PRN Reason: withdrawal symptoms/anxiety Cyclobenzaprine HCl (Cyclobenzaprine Hcl 10 Mg Tablet) 10 mg PO TID PRN PRN Reason: Muscle cramps Dicyclomine HCl (Dicyclomine Hcl 10 Mg Capsule) 10 mg PO TID PRN PRN Reason: stomach cramps Gabapentin (Gabapentin 400 Mg Capsule) 800 mg PO TID [facility] Last Admin: 09/08/23 08:36 Dose: 800 mg Hydrocortisone (Hydrocortisone 1 % Cream 28.35 Gm Tube) 1 appl TOPICAL BID PRN; Protocol PRN Reason: rash; face Last Admin: 09/02/23 20:20 Dose: 1 appl Hydroxyzine HCl (Hydroxyzine Hcl 25 Mg Tablet) 25 mg PO Q6H PRN PRN Reason: Anxiety Last Admin: 09/07/23 18:33 Dose: 25 mg Loperamide HCl (Loperamide Hcl 2 Mg Capsule) 2 mg PO Q6H PRN PRN Reason: Loose Stool Magnesium Hydroxide (Milk Of Magnesia 30 Ml Oral.Susp) 30 ml PO DAILY PRN PRN Reason: Constipation Methadone HCl (Methadone Hcl 20 Mg/2 Ml Oral.Conc) 75 mg PO DAILY [facility] Last Admin: 09/08/23 08:36 Dose: 75 mg Nicotine (Nicotine 21 Mg Patch.Td24) 21 mg TRANSDERMA DAILY [facility] Last Admin: 09/08/23 08:36 Dose: 21 mg Nicotine Polacrilex (Nicotine Polacrilex 2 Mg Gum) 4 mg BUCCAL Q2H PRN PRN Reason: Nicotine Cravings Last Admin: 09/07/23 21:14 Dose: 4 mg Olanzapine (Olanzapine 5 Mg Tablet) 5 mg PO TID PRN PRN Reason: agitation Prazosin HCl (Prazosin Hcl 1 Mg Capsule) 2 mg PO BEDTIME [facility]; Protocol Last Admin: 09/07/23 21:13 Dose: 2 mg Quetiapine Fumarate (Quetiapine Fumarate 25 Mg Tablet) 25 mg PO BID PRN PRN Reason: anxiety Last Admin: 09/02/23 20:54 Dose: 25 mg Quetiapine Fumarate (Quetiapine Fumarate 50 Mg Tablet) 250 mg PO BEDTIME [facility] Last Admin: 09/07/23 21:12 Dose: 250 mg Allergies Allergies Allergy/AdvReac Type Severity Reaction Status Date / Time haloperidol [From HALDOL] AdvReac Intermediate LOCK JAW Verified 07/31/22 01:56 olanzapine [From ZYPREXA] AdvReac Unknown PT REPORTS Verified 07/31/22 01:56 FEELS LIKE I AM ON AN ACID TRIP Assessment & Plan Assessment & Plan (1) Opioid use disorder, severe, dependence: Status: Acute Code(s): F11.20 - Opioid dependence, uncomplicated (2) MDD (major depressive disorder), recurrent episode, moderate: Status: Acute Code(s): F33.1 - Major depressive disorder, recurrent, moderate (3) ADHD (attention deficit hyperactivity disorder): Status: Acute Code(s): F90.9 - Attention-deficit hyperactivity disorder, unspecified type Plan Pt is a 37 yo male with hx of MDD, IV Opioid dependence and polysubstance abuse, hx of endocarditis, DVT who presents for depression, SI and AH in face of polysubstance abuse and medication non-adherence. Pt reports he was recently discharged from [facility] after 10 day stay; he soon relapsed on opioids and intermittently cocaine/PCP and stopped taking meds. Pt reports he was feeling suicidal; he overdosed 2 times on heroin, saying he was not intended to commit suicide but did not really care if he lived or not. He says he was having AH which he says started only after he up for a few days due to substance abuse and has now resolved. Pt reports other psychosocial stressors contributing to mood decomp, including his friend, boss and roommates 1 month ago. Pt wants to get back on medications including Wellbutrin which was on backorder post recent discharge; he also wants to get into a program to help with sobriety. Currently SI and AVH resolved. Diagnosis: Will diagnosed with MDD with psychotic symptoms since AH only present when he has been abusing substances resulting in him going without sleep and when depressed/stressed; have to further review with patient, only episode of delusional thinking he endorses is specifically while intoxicated. Hospital course: 09/03 Patient reports that he is doing much better and denies withdrawal symptoms. He thinks going up to methadone 70 is probably enough for now. Patient asks if he can get back on Adderall, saying he has been on it for 10 years and it is very helpful for him with impulsivity and focus. Review of [place] [facility] shows that patient has been getting this regularly. He shares some history of trauma when he found his father on the bathroom floor, likely from heart attack and that he had subsequent nightmares from that though prazosin has been very helpful. Fireperson asked about worries about being followed and patient said that about 2 days before he was admitted to the ED, he did think people were following him, that there were 20 cars driving by that seemed to be signaling each other; he was then on the street and 2 policemen came up to him and asked him if he had a gun and then took him to the emergency room. On further inquiry Patient denies having any other paranoid delusional concerns, reiterated that it was only these 2 days, during which time while patient was significantly intoxicated on PCP and possibly meth 09/04 Patient reports feeling better. No SI; he is out in the milieu, in the day room with brighter affect. Patient said he did have trouble sleeping last night with reduced Ambien. Discussed how going forward Ambien is not recommended and he agreed to see if he could find other medications that would help him sleep. Remeron he reports causes restless leg; however he like the idea of again trying amitriptyline, which he said he has been on before and found it helpful. Patient hoping very much to get into a program so he can stay sober 09/05 patient stabilizing; continue current treatment plan 09/06 remains in good behavioral and impulse control, attending groups and engage in treatment; continue current plan 09/07 remains in good behavioral and impulse control; engaged in treatment; hoping to get into program PLAN: CV Q 15 minute checks Continue Adderal xl 30mg daily; normally he takes an IR in afternoon Continue amitriptyline 20 mg q.h.s. for both insomnia and anxiety/depression BuSpar 30 mg t.i.d. clonidine 0.1 mg b.i.d. gabapentin 800 mg t.i.d. prazosin 2 mg q.h.s. Wellbutrin XL 150 mg daily Seroquel 200 mg q.h.s. Continue Methadone 75 mg daily; patient was getting this dose prior to coming to the ED; feels he needs to be around 100 mg to stay stable; will titrate per his request Will DC Ambien; patient said he is sleeping okay without it Patient educated on: diagnosis Informed Consent: understands Reason for continued inpatient stay Substantial Risk for: stable for discharge Time Spent With Patient Time: Total time managing care of this patient today ____ minutes.
[2023-09-08] MEDS: Nicotine Polacrilex 2 MG GUM 4 MG BUCCAL ×4 (10:44→22:06)
[2023-09-08 16:25] VITALS: BP 131/65; PULSE 66; RESP 16; TEMP 36.8; O2SAT 96
[2023-09-08 21:15] VITALS: BP 122/58; PULSE 88; RESP 16; TEMP 36.9; O2SAT 97
[2023-09-08] MEDS: Amitriptyline HCl 10 MG TABLET 20 MG PO (21:28)
[2023-09-08] MEDS: cloNIDine HCL 0.1 MG TABLET PO (21:28)
[2023-09-08] MEDS: Prazosin HCL 1 MG CAPSULE 2 MG PO (21:29)
[2023-09-08] MEDS: QUEtiapine Fumarate 50 MG TABLET 250 MG PO (21:30)
[2023-09-09 08:00] VITALS: BP 116/64; PULSE 63; RESP 18; TEMP 36.9; O2SAT 98
[2023-09-09] MEDS: Nicotine 21 MG PATCH.TD24 TRANSDERMA (09:26)
[2023-09-09] MEDS: cloNIDine HCL 0.1 MG TABLET PO ×2 (09:26→21:30)
--- NOTE | 2023-09-09 09:26 | P.PNPSI_ITS ---
Subjective Subjective Date of Service: 09/09/23 Reason For Visit: delusions Interim History: met with patient; discussed with team Patient remains stable, optimistic and grateful he has gotten into a program which starts tomorrow. No complaints, no requests. Feels ready to go and that medications are appropriate. Mental Status Exam Mental Status Exam Narrative: Pt is alert and oriented; behavior is cooperative, and calm; patient is not in distress; tattooed; dressed in casual attire, adequate hygiene; mood is described as good and affect congruent, brighter; eye contact avoidant; Speech is normal rate, volume and prosody and not pressured; some psychomotor retardation present; thought process is organized and goal directed; Thought content is on treatment, aftercare options, sobriety; otherwise pertinent to relevant topics and without any delusional content, paranoid ideations or grandiosity; no SI; no HI. Mood congruent AH resolved. Patients insight and judgment fair. Diagnostics Vital Signs (24Hr): Vital Signs - 24 hr 09/08/23 16:25 09/08/23 21:15 Temperature 98.3 F 98.4 F Pulse Rate 66 88 Respiratory Rate 16 16 Blood Pressure 131/65 122/58 L Pulse Oximetry 96 97 Oxygen Delivery Method Room Air Room Air BMI result Body Mass Index 27.5 Labs 08/29/23 17:58 09/01/23 13:46 Medications Medications Current Medications Acetaminophen (Acetaminophen 325 Mg Tablet) 650 mg PO Q6H PRN PRN Reason: Headache/Pain Mild Scale (1-3) Al Hydroxide/Mg Hydroxide (Magnesium Hydrox/Alum Hydrox 30 Ml Oral.Susp) 30 ml PO Q6H PRN PRN Reason: Heartburn/Nausea Amitriptyline HCl (Amitriptyline Hcl 10 Mg Tablet) 20 mg PO BEDTIME [facility] Last Admin: 09/08/23 21:28 Dose: 20 mg Amphetamine/Dextroamphetamine (Dextroamphetamine/Amphetamine Xr 10 Mg Cap.Er.24h) 30 mg PO DAILY [facility] Last Admin: 09/08/23 08:36 Dose: 30 mg Bupropion HCl (Bupropion Hcl Xl 150 Mg Tab.Er.24h) 150 mg PO DAILY [facility] Last Admin: 09/08/23 08:36 Dose: 150 mg Buspirone HCl (Buspirone Hcl 10 Mg Tablet) 30 mg PO TID [facility] Last Admin: 09/08/23 21:28 Dose: 30 mg Clonidine HCl (Clonidine Hcl 0.1 Mg Tablet) 0.1 mg PO BID [facility]; Protocol Last Admin: 09/08/23 21:28 Dose: 0.1 mg Clonidine HCl (Clonidine Hcl 0.1 Mg Tablet) 0.1 mg PO Q4H PRN; Protocol PRN Reason: withdrawal symptoms/anxiety Cyclobenzaprine HCl (Cyclobenzaprine Hcl 10 Mg Tablet) 10 mg PO TID PRN PRN Reason: Muscle cramps Dicyclomine HCl (Dicyclomine Hcl 10 Mg Capsule) 10 mg PO TID PRN PRN Reason: stomach cramps Gabapentin (Gabapentin 400 Mg Capsule) 800 mg PO TID [facility] Last Admin: 09/08/23 21:29 Dose: 800 mg Hydrocortisone (Hydrocortisone 1 % Cream 28.35 Gm Tube) 1 appl TOPICAL BID PRN; Protocol PRN Reason: rash; face Last Admin: 09/02/23 20:20 Dose: 1 appl Hydroxyzine HCl (Hydroxyzine Hcl 25 Mg Tablet) 25 mg PO Q6H PRN PRN Reason: Anxiety Last Admin: 09/07/23 18:33 Dose: 25 mg Loperamide HCl (Loperamide Hcl 2 Mg Capsule) 2 mg PO Q6H PRN PRN Reason: Loose Stool Magnesium Hydroxide (Milk Of Magnesia 30 Ml Oral.Susp) 30 ml PO DAILY PRN PRN Reason: Constipation Methadone HCl (Methadone Hcl 20 Mg/2 Ml Oral.Conc) 75 mg PO DAILY [facility] Last Admin: 09/08/23 08:36 Dose: 75 mg Nicotine (Nicotine 21 Mg Patch.Td24) 21 mg TRANSDERMA DAILY [facility] Last Admin: 09/08/23 08:36 Dose: 21 mg Nicotine Polacrilex (Nicotine Polacrilex 2 Mg Gum) 4 mg BUCCAL Q2H PRN PRN Reason: Nicotine Cravings Last Admin: 09/08/23 22:06 Dose: 4 mg Olanzapine (Olanzapine 5 Mg Tablet) 5 mg PO TID PRN PRN Reason: agitation Prazosin HCl (Prazosin Hcl 1 Mg Capsule) 2 mg PO BEDTIME [facility]; Protocol Last Admin: 09/08/23 21:29 Dose: 2 mg Quetiapine Fumarate (Quetiapine Fumarate 25 Mg Tablet) 25 mg PO BID PRN PRN Reason: anxiety Last Admin: 09/02/23 20:54 Dose: 25 mg Quetiapine Fumarate (Quetiapine Fumarate 50 Mg Tablet) 250 mg PO BEDTIME [facility] Last Admin: 09/08/23 21:30 Dose: 250 mg Allergies Allergies Allergy/AdvReac Type Severity Reaction Status Date / Time haloperidol [From HALDOL] AdvReac Intermediate LOCK JAW Verified 07/31/22 01:56 olanzapine [From ZYPREXA] AdvReac Unknown PT REPORTS Verified 07/31/22 01:56 FEELS LIKE I AM ON AN ACID TRIP Assessment & Plan Assessment & Plan (1) Opioid use disorder, severe, dependence: Status: Acute Code(s): F11.20 - Opioid dependence, uncomplicated (2) MDD (major depressive disorder), recurrent episode, moderate: Status: Acute Code(s): F33.1 - Major depressive disorder, recurrent, moderate (3) ADHD (attention deficit hyperactivity disorder): Status: Acute Code(s): F90.9 - Attention-deficit hyperactivity disorder, unspecified type Plan Pt is a 37 yo male with hx of MDD, IV Opioid dependence and polysubstance abuse, hx of endocarditis, DVT who presents for depression, SI and AH in face of polysubstance abuse and medication non-adherence. Pt reports he was recently discharged from [facility] after 10 day stay; he soon relapsed on opioids and intermittently cocaine/PCP and stopped taking meds. Pt reports he was feeling suicidal; he overdosed 2 times on heroin, saying he was not intended to commit suicide but did not really care if he lived or not. He says he was having AH which he says started only after he up for a few days due to substance abuse and has now resolved. Pt reports other psychosocial stressors contributing to mood decomp, including his friend, boss and roommates 1 month ago. Pt wants to get back on medications including Wellbutrin which was on backorder post recent discharge; he also wants to get into a program to help with sobriety. Currently SI and AVH resolved. Diagnosis: Will diagnosed with MDD with psychotic symptoms since AH only present when he has been abusing substances resulting in him going without sleep and when depressed/stressed; have to further review with patient, only episode of delusional thinking he endorses is specifically while intoxicated. Hospital course: 09/03 Patient reports that he is doing much better and denies withdrawal symptoms. He thinks going up to methadone 70 is probably enough for now. Patient asks if he can get back on Adderall, saying he has been on it for 10 years and it is very helpful for him with impulsivity and focus. Review of [place] shows that patient has been getting this regularly. He shares some history of trauma when he found his father on the bathroom floor, likely from heart attack and that he had subsequent nightmares from that though prazosin has been very helpful. [employer] Consultant asked about worries about being followed and patient said that about 2 days before he was admitted to the ED, he did think people were following him, that there were 20 cars driving by that seemed to be signaling each other; he was then on the street and 2 policemen came up to him and asked him if he had a gun and then took him to the emergency room. On further inquiry Patient denies having any other paranoid delusional concerns, reiterated that it was only these 2 days, during which time while patient was significantly intoxicated on PCP and possibly meth 09/04 Patient reports feeling better. No SI; he is out in the milieu, in the day room with brighter affect. Patient said he did have trouble sleeping last night with reduced Ambien. Discussed how going forward Ambien is not recommended and he agreed to see if he could find other medications that would help him sleep. Remeron he reports causes restless leg; however he like the idea of again trying amitriptyline, which he said he has been on before and found it helpful. Patient hoping very much to get into a program so he can stay sober 09/05 patient stabilizing; continue current treatment plan 09/06 remains in good behavioral and impulse control, attending groups and engage in treatment; continue current plan 09/07 remains in good behavioral and impulse control; engaged in treatment; hoping to get into program 09/09 remains stable, ready for discharge and looking forward to going to program tomorrow. Patient has returned to baseline and remains without any SI or AVH, eating and sleeping well; he has remained in good behavioral and impulse control throughout his time in the unit. Patient is discharging to a safe, therapeutic environment for continued treatment. He is not in imminent risk for harm to self or others and appropriate to continue treatment in the community. PLAN: CV Q 15 minute checks Continue Adderal xl 30mg daily; normally he takes an IR in afternoon Continue amitriptyline 20 mg q.h.s. for both insomnia and anxiety/depression BuSpar 30 mg t.i.d. clonidine 0.1 mg b.i.d. gabapentin 800 mg t.i.d. prazosin 2 mg q.h.s. Wellbutrin XL 150 mg daily Seroquel 200 mg q.h.s. Continue Methadone 75 mg daily; patient was getting this dose prior to coming to the ED; feels he needs to be around 100 mg to stay stable; will titrate per his request Will BRYANNA Shaw; patient said he is sleeping okay without it Patient educated on: diagnosis, medication risk/benefits and substance abuse Informed Consent: understands Reason for continued inpatient stay Substantial Risk for: stable for discharge Time Spent With Patient Time: Total time managing care of this patient today ____ minutes.
[2023-09-09] MEDS: Dextroamphetamine/Amphetamine XR 10 MG CAP.ER.24H 30 MG PO (09:27)
[2023-09-09] MEDS: Nicotine Polacrilex 2 MG GUM 4 MG BUCCAL ×5 (09:27→21:31)
[2023-09-09] MEDS: methADONE HCl 20 MG/2 ML ORAL.CONC 75 MG PO (09:27)
[2023-09-09] MEDS: buPROPion HCl XL 150 MG TAB.ER.24H PO (09:27)
[2023-09-09] MEDS: Gabapentin 400 MG CAPSULE 800 MG PO ×3 (09:27→21:30)
[2023-09-09] MEDS: busPIRone HCl 10 MG TABLET 30 MG PO ×3 (09:27→21:31)
--- NOTE | 2023-09-09 17:08 | PM.PSYDC ---
DS: Providers Provider Date of Service: 09/10/23 Date of admission: 09/01/23 15:12 Date of discharge: 09/10/23 Primary care physician: Raquel Gao MD Attending physician on admission: Phuc Dougherty Attending physician on discharge: Phuc Dougherty DS: Diagnosis Discharge Diagnosis (1) Opioid use disorder, severe, dependence: Status: Acute (2) MDD (major depressive disorder), recurrent episode, moderate: Status: Acute (3) ADHD (attention deficit hyperactivity disorder): Status: Acute DS: Medications Discharge Medications Home Medications: Previous Rx's Medication Instructions Recorded amitriptyline 25 mg tablet 25 mg PO BEDTIME 30 days #30 tabs 09/09/23 bupropion HCl 150 mg 24 hr tablet, 150 mg PO DAILY 30 days #30 tabs 09/09/23 extended release buspirone 30 mg tablet 30 mg PO TID 30 days #90 tabs 09/09/23 clonidine HCl 0.1 mg tablet 0.1 mg PO BID anxiety 30 days #60 09/09/23 tabs dextroamphetamine-amphetamine ER 30 mg PO DAILY 30 days #30 caps 09/09/23 30 mg 24hr capsule,extend release gabapentin 800 mg tablet 800 mg PO TID 30 days #90 tabs 09/09/23 hydroxyzine HCl 25 mg tablet 25 mg PO Q6H PRN Anxiety 30 days 09/09/23 #90 tabs methadone 10 mg/mL oral 75 mg (7.5 mL) PO DAILY #0 mL 09/09/23 concentrate (Methadose) nicotine (polacrilex) 4 mg gum 4 mg buccal Q2H 30 days #100 ea 09/09/23 nicotine 21 mg/24 hr daily 1 patch transdermal DAILY 28 days 09/09/23 transdermal patch #28 ea prazosin 2 mg capsule 2 mg PO BEDTIME 30 days #30 caps 09/09/23 quetiapine 200 mg tablet 200 mg PO BEDTIME 30 days #30 tabs 09/09/23 quetiapine 25 mg tablet 25 mg PO BID PRN anxiety 30 days 09/09/23 #60 tabs Mental Status Exam Mental Status Exam Narrative: Pt is alert and oriented; behavior is cooperative, and calm; patient is not in distress; tattooed; dressed in casual attire, adequate hygiene; mood is described as good and affect congruent, brighter; eye contact avoidant; Speech is normal rate, volume and prosody and not pressured; some psychomotor retardation present; thought process is organized and goal directed; Thought content is on treatment, aftercare options, sobriety; otherwise pertinent to relevant topics and without any delusional content, paranoid ideations or grandiosity; no SI; no HI. Mood congruent AH resolved. Patients insight and judgment fair. DS: Summary Hospital Course Hospital Course: Pt is a 37 yo male with hx of MDD, IV Opioid dependence and polysubstance abuse, hx of endocarditis, DVT who presents for depression, SI and AH in face of polysubstance abuse and medication non-adherence. Pt reports he was recently discharged from [facility] after 10 day stay; he soon relapsed on opioids and intermittently cocaine/PCP and stopped taking meds. Pt reports he was feeling suicidal; he overdosed 2 times on heroin, saying he was not intended to commit suicide but did not really care if he lived or not. He says he was having AH which he says started only after he up for a few days due to substance abuse and has now resolved. Pt reports other psychosocial stressors contributing to mood decomp, including his friend, boss and roommates 1 month ago. Pt wants to get back on medications including Wellbutrin which was on backorder post recent discharge; he also wants to get into a program to help with sobriety. Currently SI and AVH resolved. Diagnosis: Will diagnosed with MDD with psychotic symptoms since AH only present when he has been abusing substances resulting in him going without sleep and when depressed/stressed; have to further review with patient, only episode of delusional thinking he endorses is specifically while intoxicated. Hospital course: Calm, cooperative on admission; no SI and symptoms subsiding. Wants to continue on home medication regimen. 09/03 Patient reports that he is doing much better and denies withdrawal symptoms. He thinks going up to methadone 70 is probably enough for now. Patient asks if he can get back on Adderall, saying he has been on it for 10 years and it is very helpful for him with impulsivity and focus. Review of [facility] shows that patient has been getting this regularly. He shares some history of trauma when he found his father on the bathroom floor, likely from heart attack and that he had subsequent nightmares from that though prazosin has been very helpful. Cullet Washer asked about worries about being followed and patient said that about 2 days before he was admitted to the ED, he did think people were following him, that there were 20 cars driving by that seemed to be signaling each other; he was then on the street and 2 policemen came up to him and asked him if he had a gun and then took him to the emergency room. On further inquiry Patient denies having any other paranoid delusional concerns, reiterated that it was only these 2 days, during which time while patient was significantly intoxicated on PCP and possibly meth 09/04 Patient reports feeling better. No SI; he is out in the milieu, in the day room with brighter affect. Patient said he did have trouble sleeping last night with reduced Ambien. Discussed how going forward Ambien is not recommended and he agreed to see if he could find other medications that would help him sleep. Remeron he reports causes restless leg; however he like the idea of again trying amitriptyline, which he said he has been on before and found it helpful. Patient hoping very much to get into a program so he can stay sober 09/05 throughout rest of admission: remains in good behavioral and impulse control, attending groups and engage in treatment; continue current plan 09/09 patient accepted into a program and is looking forward to discharging tomorrow. Patient has returned to baseline and remains without any SI or AVH, eating and sleeping well; he has remained in good behavioral and impulse control throughout his time in the unit. Patient is discharging to a safe, therapeutic environment for continued treatment. He is not in imminent risk for harm to self or others and appropriate to continue treatment in the community. Medications: Patient started on amitriptyline q.h.s. to good effect; had been on this before Ambien discontinued as patient was able to sleep without Otherwise home medications continued Time spent discussing smoking cessation with patient: 3 to 10 minutes Status at Discharge Functional status at discharge: independent ambulation Overall status at discharge: patient is back to baseline Time Spent with Patient Time attestation: Total time managing care of this patient today ____ minutes. Time spent: Less than 30 minutes Discharge Plan Discharge Anticipated Discharge Date/Time: 09/10/23 11:00 Patient Disposition: [facility]pc Discharge Diagnosis: MDD, recurrent, severe with psychotic features, in full remission Referrals: Raquel Gao MD [Primary Care Provider] - 10/08/23 10:30 am (in office) Discharge Medications: New nicotine (polacrilex) 4 mg gum 4 mg buccal Q2H 30 Days Qty: 100 0RF bupropion HCl 150 mg Tablet Extended Release 24 Hr 150 mg PO DAILY 30 Days Qty: 30 0RF methadone [Methadose] 10 mg/mL Concentrate 75 mg PO DAILY Qty: 0 0RF Rx Instructions: Partial Fill upon patient request. hydroxyzine HCl 25 mg Tablet 25 mg PO Q6H PRN (Reason: Anxiety) 30 Days Qty: 90 0RF dextroamphetamine-amphetamine 30 mg capsule,extended release 24hr 30 mg PO DAILY 30 Days Qty: 30 0RF Rx Instructions: Partial Fill upon patient request. amitriptyline 25 mg tablet 25 mg PO BEDTIME 30 Days Qty: 30 0RF quetiapine [Seroquel] 300 mg tablet 300 mg PO BEDTIME 30 Days Qty: 30 0RF clonidine HCl 0.1 mg tablet 0.1 mg PO Q4H PRN (Reason: anxiety/insomnia) 30 Days Qty: 90 0RF Continued quetiapine 25 mg tablet 25 mg PO BID PRN (Reason: anxiety) 30 Days Qty: 60 0RF buspirone 30 mg tablet 30 mg PO TID 30 Days Qty: 90 0RF nicotine 21 mg/24 hr patch 24 hour 1 patch transdermal DAILY 28 Days Qty: 28 0RF Changed gabapentin 800 mg tablet 800 mg PO TID 30 Days Qty: 90 0RF prazosin 2 mg capsule 2 mg PO BEDTIME 30 Days Qty: 30 0RF Discontinued clonidine HCl 0.1 mg tablet 1 tab PO BID zolpidem 10 mg tablet 10 mg PO BEDTIME PRN (Reason: insomnia) quetiapine 300 mg tablet 200 mg PO BEDTIME methadone [Methadose] 10 mg/mL concentrate 65 mg PO DAILY Rx Instructions: Last Dose Confirmed at [facility] with Delma Mann. Discharge Orders: Discharge Order (Routine); Ordered 09/10/23 Ordered By: Phuc Dougherty Diet: Regular diet Activity on Discharge: As tolerated Stand Alone Forms: Patient Portal Discharge page, Community Support Care Plan Goals: Maintain mood and safe behaviors Take medications as prescribed Continue to pursue sobriety Practice coping skills Continue with outpatient providers and reach out to them as needed Health Concerns: Mood stability and behaviors Sobriety Plan of Treatment: Follow up with your PCP, psychiatric provider and other outpatient providers regarding above concerns Take medications as prescribed Assessment: Risk assessment at time of discharge:? Patient was interviewed prior to discharge and found to be fully oriented and without any SI or HI. Patient has improved insight and judgment and wants to continue treatment. Patient is not in imminent risk of harm to self or others and has a safety plan that includes presenting to the closest ER or calling 911 if feeling unsafe.? Patient has been observed closely by nursing and unit staff throughout admission; patient has not engaged in any behaviors that suggest dangerousness to self or others and has demonstrated appropriate behaviors and impulse control Discharge Date/Time: 09/10/23 10:36
[2023-09-09 21:26] VITALS: BP 128/70; PULSE 78; RESP 16; TEMP 37; O2SAT 96
[2023-09-09] MEDS: QUEtiapine Fumarate 50 MG TABLET 250 MG PO (21:30)
[2023-09-09] MEDS: Prazosin HCL 1 MG CAPSULE 2 MG PO (21:30)
[2023-09-09] MEDS: hydrOXYzine HCL 25 MG TABLET PO (21:30)
[2023-09-09] MEDS: Amitriptyline HCl 10 MG TABLET 20 MG PO (21:30)
[2023-09-10 08:20] VITALS: BP 109/59; PULSE 77; RESP 18; TEMP 36.4; O2SAT 96
[2023-09-10] MEDS: methADONE HCl 20 MG/2 ML ORAL.CONC 75 MG PO (08:47)
[2023-09-10] MEDS: Dextroamphetamine/Amphetamine XR 10 MG CAP.ER.24H 30 MG PO (08:47)
[2023-09-10] MEDS: cloNIDine HCL 0.1 MG TABLET PO (08:48)
[2023-09-10] MEDS: buPROPion HCl XL 150 MG TAB.ER.24H PO (08:48)
[2023-09-10] MEDS: Gabapentin 400 MG CAPSULE 800 MG PO (08:48)
[2023-09-10] MEDS: busPIRone HCl 10 MG TABLET 30 MG PO (08:48)
[2023-09-10] MEDS: Nicotine 21 MG PATCH.TD24 TRANSDERMA (08:49)
== END 2023-09-10 10:36 | disposition home or self-care (01) | DRG 751 ==
LOC: HO.ED 18:28 → HO.PM5 09-01 16:06
PROVIDERS: Physician Assistant Medical; Admitting Provider Psychiatry & Neurology Psychiatry; Emergency Provider Emergency Medicine; PCP Family Medicine; Visit Provider Psychiatry & Neurology Psychiatry
DX: F33.1 Major depressive disorder, recurrent, moderate (principal); R45.851 Suicidal ideations; Z91.148 Patient's other noncompliance with medication regimen for other reason; F11.20 Opioid dependence, uncomplicated; E87.6 Hypokalemia; F17.210 Nicotine dependence, cigarettes, uncomplicated; F90.9 Attention-deficit hyperactivity disorder, unspecified type; Z20.822 Contact with and (suspected) exposure to COVID-19; Z91.51 Personal history of suicidal behavior; Z59.01 Sheltered homelessness; Z71.6 Tobacco abuse counseling; Z79.899 Other long term (current) drug therapy
CPT/HCPCS: 36415; 80051; 80053; 80061; 80143; 80179; 80307; 81001; 83036; 85025; 87635; 93005; 99285; S9485

== ENCOUNTER → 2023-08-29 17:38 | Outpatient (BNV) | payer OTHER, SELFPAY | PROVIDERS: Emergency Provider Emergency Medicine; PCP Family Medicine; Visit Provider Internal Medicine Cardiovascular Disease | DX: R00.1 Bradycardia, unspecified (principal) | CPT/HCPCS: 93010 ==

== ENCOUNTER → 2023-09-01 15:12 | Outpatient (BNV) | payer OTHER, SELFPAY | PROVIDERS: Admitting Provider Psychiatry & Neurology Psychiatry; Emergency Provider Emergency Medicine; PCP Family Medicine; Visit Provider Psychiatry & Neurology Psychiatry | DX: F33.1 Major depressive disorder, recurrent, moderate (principal); F11.20 Opioid dependence, uncomplicated; F90.9 Attention-deficit hyperactivity disorder, unspecified type | CPT/HCPCS: 99231; 99232 ==

== ENCOUNTER 2023-10-25 07:50 | Inpatient (IN) | payer MEDICAID, SELFPAY ==
[2023-10-25] VITALS (12 sets, daily range): BP systolic 105–152; BP diastolic 63–80; PULSE 71–121; RESP 7–22; TEMP 36.2–38.3; O2SAT 83–98; BMI 34.5
--- NOTE | ~2023-10-25 | CT_ITS ---
EXAMINATION: CT ANGIOGRAM OF THE CHEST WITH AND WITHOUT CONTRAST (CT PULMONARY ANGIOGRAM FOR PE) CLINICAL INFORMATION: Chest pain, hypoxia, tachycardia. Septic pulmonary embolism. COMPARISON: Most recent chest radiograph done earlier the same day and CTA chest dated 07/09/2022. TECHNIQUE: Prior to contrast administration, noncontrast localization images were obtained. Subsequently, multidetector volumetric imaging was performed from the thoracic inlet to below the diaphragms following the administration of 65 mL Omnipaque 350 intravenous contrast. No contrast reaction reported Sagittal, coronal, and MIP oblique sagittal reformatted images were obtained on the CT workstation, uploaded to PACS, and reviewed. This CT examination was performed using dose optimization techniques as appropriate, variously including the following: *Automated exposure control *Adjustment of mA and/or kV according to patient size (this includes techniques or standardized protocols for targeted exams where dose is matched to indication/reason for exam; i.e. extremities or head) *Use of iterative reconstruction technique Total exam dose-length product 359 mGy-cm FINDINGS: QUALITY OF STUDY/CONTRAST BOLUS: Suboptimal. PULMONARY ARTERIES: No large central or segmental pulmonary embolism. Evaluation for a more peripheral embolism somewhat limited secondary to contrast bolus timing. THORACIC AORTA: No thoracic aortic dilatation or dissection. Scattered atherosclerotic calcifications. LUNG: Diffuse, patchy and somewhat nodular ground-glass opacities throughout the entirety of the right lung with a few scattered left lower lobe foci. Findings are new when compared to the CTA chest dated 07/09/2022. No large, confluent consolidation. No large mass or nodule. The central airways are patent. PLEURA: No pleural effusion or pneumothorax. MEDIASTINUM: Normal heart size. No pericardial effusion. No hilar or mediastinal lymphadenopathy. No evidence of septal bowing or right heart strain. CORONARY ARTERY CALCIFICATION: None visualized on this study. CHEST WALL/AXILLA: No axillary or internal mammary lymphadenopathy. OSSEOUS STRUCTURES: No acute osseous abnormality. No concerning lytic or blastic osseous lesion. Redemonstration of multiple vertebral body anomalies. UPPER ABDOMEN: Unremarkable. No reflux of contrast into the hepatic veins to suggest elevated right heart pressures. CT/CT angio chest PE protocol IMPRESSION: 1. No large central or segmental pulmonary embolism. Evaluation for a more peripheral embolism somewhat limited secondary to contrast bolus timing. 2. Diffuse, patchy and somewhat nodular ground-glass opacities throughout the right lung with a few scattered left lower lobe foci. Findings are new when compared to the CT chest dated 07/09/2022. Findings likely represent a multifocal infectious or inflammatory process. No large, confluent consolidation. 3. No significant lymphadenopathy. VTE: Negative.
--- NOTE | ~2023-10-25 | XR_ITS ---
EXAMINATION: XR CHEST CLINICAL INFORMATION: Shortness of breath COMPARISON: CT angiogram chest from 07/09/2022, chest radiograph from 07/09/2022 TECHNIQUE: Frontal view of the chest was obtained. FINDINGS: Patchy radiopacity involving the right mid to lower lung bermudez may reflect developing infectious/inflammatory etiology. Mild bronchial thickening. No pneumothorax. Trachea is midline. Cardiac mediastinal silhouette is not enlarged. No large pleural effusion. Osseous structures are intact. Soft tissues are unremarkable. XR/XR chest 1V IMPRESSION: 1. Patchy radiopacity involving the right mid to lower lung bermudez may reflect developing infectious/inflammatory etiology. 2. Mild bronchial thickening.
--- NOTE | 2023-10-25 08:05 | ECG_ITS ---
Test Reason : SHORTNESS OF BREATH Blood Pressure : / mmHG Vent. Rate : 116 BPM Atrial Rate : 116 BPM P-R Int : 136 ms QRS Dur : 074 ms QT Int : 298 ms P-R-T Axes : 035 -06 019 degrees QTc Int : 414 ms Sinus tachycardia Minimal voltage criteria for LVH, may be normal variant ( R in aVL ) Nonspecific T wave abnormality Abnormal ECG When compared with ECG of 31-AUG-2023 15:03, Vent. rate has increased BY 58 BPM Non-specific change in ST segment in Anterior leads Nonspecific T wave abnormality now evident in Lateral leads Referred By: Generic ED Physician Electronically Signed By:JONES HURST MD
--- NOTE | 2023-10-25 08:15 | ED_ITS ---
HPI - General Adult General Chief complaint: General Medical Stated complaint: FLU LIKE SYMPTOMS Time Seen by Provider: 10/25/23 08:12 Source: patient and RN notes reviewed Mode of arrival: ambulatory Limitations: no limitations History of Present Illness HPI narrative: This is a 37-year-old male, with a history of endocarditis, IVDA last used 2 months ago, eptic pulmonary emboli, and delusional disorder, presenting to the emergency department with complaints of body aches, cough, chills, nausea, and vomiting since last night. Patient reports that he is currently living in a retirement house who have been testing positive for COVID and RSV. Patient states that last night he developed chest tightness, which is intermittent, reports that it lasts for several minutes and resolves on its own. He denies any abdominal pain, nausea, vomiting or diarrhea. Denies any urinary retention or incontinence. He has a former smoker quit 2 months ago, states that he still uses a vape, last vaped yesterday. No other complaints or concerns at this time. MD complaint: Cough, body aches Onset (ago): day(s) Relieving factors: none Exacerbating factors: none Associated symptoms: chest pain, cough, diaphoresis and fever/chills Treatments prior to arrival: none Related Data Previous Rx's Medication Instructions Recorded amitriptyline 25 mg tablet 25 mg PO BEDTIME 30 days #30 tabs 09/09/23 bupropion HCl 150 mg 24 hr tablet, 150 mg PO DAILY 30 days #30 tabs 09/09/23 extended release buspirone 30 mg tablet 30 mg PO TID 30 days #90 tabs 09/09/23 dextroamphetamine-amphetamine ER 30 mg PO DAILY 30 days #30 caps 09/09/23 30 mg 24hr capsule,extend release gabapentin 800 mg tablet 800 mg PO TID 30 days #90 tabs 09/09/23 hydroxyzine HCl 25 mg tablet 25 mg PO Q6H PRN Anxiety 30 days 09/09/23 #90 tabs methadone 10 mg/mL oral 75 mg (7.5 mL) PO DAILY #0 mL 09/09/23 concentrate (Methadose) nicotine (polacrilex) 4 mg gum 4 mg buccal Q2H 30 days #100 ea 09/09/23 nicotine 21 mg/24 hr daily 1 patch transdermal DAILY 28 days 09/09/23 transdermal patch #28 ea prazosin 2 mg capsule 2 mg PO BEDTIME 30 days #30 caps 09/09/23 quetiapine 25 mg tablet 25 mg PO BID PRN anxiety 30 days 09/09/23 #60 tabs clonidine HCl 0.1 mg tablet 0.1 mg PO Q4H PRN anxiety/insomnia 09/10/23 30 days #90 tabs quetiapine 300 mg tablet (Seroquel) 300 mg PO BEDTIME 30 days #30 tabs 09/10/23 Allergies Allergy/AdvReac Type Severity Reaction Status Date / Time haloperidol [From HALDOL] AdvReac Intermediate LOCK JAW Verified 07/31/22 01:56 olanzapine [From ZYPREXA] AdvReac Unknown PT REPORTS Verified 07/31/22 01:56 FEELS LIKE I AM ON AN ACID TRIP Review of Systems 2 Review of Systems: Yes all other systems are reviewed and are negative Constitutional: Constitutional: Reports as per [facility] Past Medical History Attestation statement: The following information was validated with the patient. Medical History Delusional disorder ADHD (attention deficit hyperactivity disorder) MDD (major depressive disorder), recurrent episode, moderate Cellulitis Hepatitis C Opiate abuse, continuous Anterior T wave inversion Pulmonary emboli Multiple abrasions Head injury Suicide attempt Abrasion of face Heroin overdose Opiate abuse, continuous Mood disorder ADHD Major depression with psychotic features Endocarditis DVT (deep venous thrombosis) Severe sepsis Anemia Eye contusion Left upper extremity deep vein thrombosis Hepatitis C IV drug abuse Surgical History Hx of eye surgery S/P left knee arthroscopy History of left knee surgery Social History Social History Household Members: Family Household Members Other:: aunt Housing: House Housing Other:: hotel everyday Do you presently have visiting nurse or other home services: No Unable to assess alcohol history related to: Unknown Alcohol intake: current Alcohol intake frequency: a few times a week Alcohol type: hard liquor Comment: 1:1 sitter Patient Tobacco Use Status: Current everyday Tobacco user Tobacco use type: Cigarette Cigarette Packs Per Day: 1.5 Cigarettes Per Day: 30 Years Smoked: 23 Smoked in Last 30 Days: No e-Cigarette/Vaping Use: Former Use Second Hand Smoke Exposure: No Use of substances other than those prescribed or required for medical reasons: No Substance Use Type: Crack/Cocaine, Heroin and Marijuana Advance Directives: No Advance Directives Information Provided: No service: No Current occupational status: unemployed Sexual orientation: Straight/Heterosexual Physical Exam ED Vital Signs: Vital Signs - 24 hr 10/25/23 08:08 10/25/23 09:25 10/25/23 10:12 Temperature 101 F H 99.0 F Pulse Rate 121 H 103 H 97 Respiratory Rate 22 H 11 L 21 H Blood Pressure 136/65 118/73 Pulse Oximetry 87 L 95 Oxygen Delivery Method Room Air Nasal Cannula Oxygen Flow Rate 2 10/25/23 10:29 10/25/23 10:59 10/25/23 11:16 Temperature 98.9 F 99.1 F 97.4 F Pulse Rate 92 88 92 Respiratory Rate 9 L 7 L 12 Blood Pressure 127/80 128/69 123/68 Pulse Oximetry 92 93 96 Oxygen Delivery Method Nasal Cannula Nasal Cannula Nasal Cannula Oxygen Flow Rate 2 2 3 10/25/23 11:32 10/25/23 14:24 10/25/23 15:18 Temperature 97.4 F 98.4 F Pulse Rate 96 76 Respiratory Rate 12 17 Blood Pressure 126/63 106/67 Pulse Oximetry 94 97 83 L Oxygen Delivery Method Nasal Cannula Nasal Cannula Room Air Oxygen Flow Rate 3 3 BMI result Body Mass Index 34.5 Const General: cooperative, comfortable and no acute distress Orientation/consciousness: patient oriented x3 Limitations: no limitations [facility] Head: Yes normal to inspection, Yes normocephalic and Yes atraumatic Ears: hearing grossly normal bilaterally and TM's normal bilaterally General nose exam: Normal external nose present Face and sinus: Yes normal facial exam Mouth: Normal oral and palatal mucosa present, oropharynx normal and moist mucous membranes Throat: Yes posterior oropharynx normal, Yes tonsils normal and Yes uvula midline Eyes General: appearance normal, both eyes and all related structures Eyelids: Yes eyelids normal Conjunctivae: conjunctivae normal Sclerae: sclerae normal Pupils: Equal, round and reactive pupils present EOM: EOMs intact bilaterally Neck Neck: Yes normal visual inspection, Yes full ROM and Yes no lymphadenopathy Lymphatic: no lymphadenopathy noted Chest Chest palpation & inspection: normal inspection of the chest Resp Other: Lungs with crackles noted at bilateral lung bases, wheeze noted to the left upper lung bermudez. Effort & Inspection: normal respiratory effort and able to speak in complete sentences Cardio Rate: regular rate Rhythm: regular rhythm Heart sounds: S1 normal heart sound present and S2 normal heart sound present GI Other: Abdomen is soft, nontender, nondistended Inspection: Yes normal to inspection Skin General skin exam: no rashes or lesions noted Trauma: no lacerations or abrasions Wounds: no wounds Neuro General: patient oriented x3 and moves all extremities Cranial nerves: Yes Equal, round and reactive pupils present Extrem Other: No lower extremity edema, no calf tenderness General: Yes normal to inspection Right upper extremity: normal to inspection Left upper extremity: normal to inspection Right lower extremity: normal to inspection Left lower extremity: normal to inspection Course Reevaluation(s) Reevaluation #1: Patient with no leukocytosis, normocytic anemia noted at 11.2/34.8 which appears to be chronic for him. Lactic 1.2. BUN slightly elevated at 19. Creatinine 0.73, mild hyperglycemia 124, slight elevation in liver transaminases around his baseline. Patient re-evaluated, Lungs are coarse with expiratory wheeze. I explained to patient that he would benefit from an updraft. He is currently refusing at this time. Chest x-ray returns revealing Patchy radiopacity involving the right mid to lower lung bermudez may reflect developing infectious/inflammatory etiology. Time: 09:27 Reevaluation #2: Given hx of septic pulmonary emboli, pt tachycardia and hypoxia, will obtain CT of the chest for r/o PE. Lungs improved after receiving updraft. Time: 10:08 Reevaluation #3: CTA returns, revealing no evidence of pulmonary embolism however there is diffuse, patchy and somewhat nodular ground-glass opacities throughout the right lung with few scattered left lobe foci. No large confluent consolidation. Likely multifocal infectious or inflammatory process. [facility] full respiratory panel unremarkable. Patient has been on oxygen via nasal cannula. Removed oxygen, patient's saturation dipped to 83% on room air. Given hypoxia, he needs to be admitted to the hospitalist for further evaluation and treatment. Patient will be medicated with Azithromycin and doxycycline. Transfer of care initiated. Medications Administered Discontinued Medications Generic Name Dose Route Start Last Admin Trade Name Freq PRN Reason Stop Dose Admin Acetaminophen 650 mg 10/25/23 08:38 10/25/23 09:01 Acetaminophen 325 Mg Tablet PO 10/25/23 08:39 650 mg ONCE ONE Administration Albuterol/Ipratropium 3 ml 10/25/23 10:09 10/25/23 10:11 Albuterol/Iprat 2.5/0.5mg 3 Ml Ampul.Neb INHALE 10/25/23 10:10 3 ml ONCE ONE Administration Sodium Chloride 1,983 mls @ 1,983 mls/hr 10/25/23 08:25 10/25/23 11:05 Ns IV 10/25/23 09:24 Infused .Q1H STA Infusion Iohexol 100 ml 10/25/23 12:21 10/25/23 12:22 Iohexol 350 Mg/Ml 100 Ml Infus..Btl IV 10/25/23 12:22 65 ml ONCE ONE Administration Medical Decision Making Medical Decision Making [facility] Narrative: This is a 37-year-old male, with a past medical history of presenting to the emergency department for evaluation of body aches, fevers, and cough x2 days. On arrival, patient tachycardic at 121 respiration rate 22, oral temperature 101? orally and oxygen saturation 87% on room air, placed on 2 L nasal cannula, now saturating at 96%. Lungs with rales noted in bilateral lung bermudez. Differential diagnoses include viral syndrome, pneumonia, COVID, bronchitis. Given vital signs presentation, he is meeting SIRS criteria, therefore sepsis alert was placed. I am holding off on antibiotics at this time as I believe that patient's presentation is viral. Nurse at bedside obtaining labs, EKG, blood culture, lactic acid, and starting IV fluids. Differential Diagnosis Differential Diagnoses: The differential diagnosis associated with the presentation includes See above Lab Data [facility] Lab Attestation statement: I reviewed the patient's lab results. 10/25/23 08:30 10/25/23 08:30 Labs: Lab Results 10/25/23 10/25/23 10/25/23 Range/Units 08:30 09:03 11:28 WBC 8.6 (4.8-10.8) X10*3/uL RBC 4.15 L D (4.60-5.80) X10*6/uL Hgb 11.2 L (14.0-18.0) g/dl Hct 34.8 L (42.0-52.0) % MCV 83.9 (80.0-98.0) fL MCH 27.0 (27.0-33.0) pg MCHC 32.2 (31.0-36.0) g/dl RDW 14.3 (11.0-16.0) % Plt Count 213 D (160-400) X10*3/uL MPV 8.7 L (9.4-12.4) fL Immature Gran % (Auto) 0.4 (0.0-0.4) % Neut % (Auto) 84.3 H (45-73) % Lymph % (Auto) 7.1 L (20-40) % [place] % (Auto) 6.7 (2-11) % Eos % (Auto) 1.3 (0-4) % Baso % (Auto) 0.2 (0-2) % Lymph # (Auto) 0.6 L (1.2-4.9) X10*3/uL [place] # (Auto) 0.6 (0.1-1.2) X10*3/uL Eos # (Auto) 0.1 (0.0-0.4) X10*3/uL Baso # (Auto) 0.0 (0.0-0.2) X10*3/uL Abs Immat Gran (auto) 0.03 (0.00-0.03) X10*3/uL Absolute Neuts (auto) 7.2 (2.0-8.3) x10*3/uL Absolute Nucleated RBC 0.000 (0.0-0.012) X10*3/uL Nucleated RBC % (auto) 0.0 (0.0-0.2) /100WBC Sodium 141 (135-145) mmol/L Potassium 3.9 (3.3-5.1) mmol/L Chloride 105 (96-108) mmol/L Carbon Dioxide 28 (22-29) mmol/L Anion Gap 12 (12-20) BUN 19 H (9-16) mg/dL Creatinine 0.73 (0.5-1.4) mg/dL Estim Creat Clear Calc 154.4 Estimated GFR > 60 Random Glucose 124 H (60-115) mg/dL Lactic Acid 1.2 (0.5-2.0) mmol/L Calcium 8.7 D (8.4-10.2) mg/dL Total Bilirubin 0.3 (0.0-1.0) mg/dL Direct Bilirubin 0.2 (0.0-0.5) mg/dL AST 38 H (5-37) U/L ALT 55 H (0-40) U/L Alkaline Phosphatase 101 (39-117) U/L Troponin I High Sens < 2.7 (<3.5-35.0) ng/L Total Protein 7.4 (6.5-8.0) g/dL Albumin 3.7 (3.5-5.0) g/dL Lipase 8 (8-78) U/L Urine Color Yellow Urine Appearance Cloudy Urine pH >= 9.0 (5.0-9.0) Ur Specific [place] 1.015 (1.005-1.025) Urine Protein Negative (Neg-Trace) mg/dL Urine Glucose (UA) Negative (Negative) mg/dL Urine Ketones Negative (Negative) mg/dL Urine Blood Negative (Negative) Urine Nitrite Negative (Negative) Ur Leukocyte Esterase Negative (Negative) Urine Opiates Screen Not Detected (Not Detect) Urine Fentanyl Screen Not Detected (Not Detect) Ur Barbiturates Screen Not Detected (Not Detect) Ur Phencyclidine Scrn Not Detected (Not Detect) Ur Amphetamines Screen POSITIVE H (Not Detect) U Benzodiazepines Scrn Not Detected (Not Detect) Urine Cocaine Screen Not Detected (Not Detect) U Marijuana (THC) Screen Not Detected (Not Detect) Respiratory Panel [place] See Note Adenovirus (Rapid PCR) Not Detected (Not Detect.) B.pert (TEM-PCR) Not Detected (Not Detect.) B.parapertussis DNA PCR Not Detected (Not Detect.) C. pneumoniae DNA (PCR) Not Detected (Not Detect.) Coronavirus OC43 (PCR) Not Detected (Not Detect.) Coronavirus HKU1 (PCR) Not Detected (Not Detect.) Coronavirus 229E (PCR) Not Detected (Not Detect.) COVID-19 (MARILYN) Negative (Negative) COVID-19 Clin Com See Note Coronavirus NL63 (PCR) Not Detected (Not Detect.) Human Metapneumovir PCR Not Detected (Not Detect.) Influenza Type A (MARIIA) Negative (Negative) Influenza A (RT-PCR) Not Detected (Not Detect.) Influenza Type B (MARIIA) Negative (Negative) Influenza B (RT-PCR) Not Detected (Not Detect.) Influenza A & B Note See Note M. pneumoniae (PCR) Not Detected (Not Detect.) Parainfluenza 1 (PCR) Not Detected (Not Detect.) Parainfluenza 2 (PCR) Not Detected (Not Detect.) Parainfluenza 3 (PCR) Not Detected (Not Detect.) Parainfluenza 4 (PCR) Not Detected (Not Detect.) RSV (PCR) Not Detected (Not Detect.) Entero/Rhino (PCR) Not Detected (Not Detect.) SARS-CoV-2 RNA (RT-PCR) Not Detected (Not Detect.) Independent Interpretation I performed an independent interpretation of an: EKG Interpretation: EKG sinus tachycardia at a ventricular rate of 116, AR interval 136, QTC 414, no ST elevation or depression noted. Radiology Impression Discussion of test interpretation with radiology: I have reviewed the radiologist's reading. Radiologist Impression: EXAMINATION: CT ANGIOGRAM OF THE CHEST WITH AND WITHOUT CONTRAST (CT PULMONARY ANGIOGRAM FOR PE) CLINICAL INFORMATION: Chest pain, hypoxia, tachycardia. Septic pulmonary embolism. COMPARISON: Most recent chest radiograph done earlier the same day and CTA chest dated 07/09/2022. TECHNIQUE: Prior to contrast administration, noncontrast localization images were obtained. Subsequently, multidetector volumetric imaging was performed from the thoracic inlet to below the diaphragms following the administration of 65 mL Omnipaque 350 intravenous contrast. No contrast reaction reported Sagittal, coronal, and MIP oblique sagittal reformatted images were obtained on the CT workstation, uploaded to PACS, and reviewed. This CT examination was performed using dose optimization techniques as appropriate, variously including the following: *Automated exposure control *Adjustment of mA and/or kV according to patient size (this includes techniques or standardized protocols for targeted exams where dose is matched to indication/reason for exam; i.e. extremities or head) *Use of iterative reconstruction technique Total exam dose-length product 359 mGy-cm FINDINGS: QUALITY OF STUDY/CONTRAST BOLUS: Suboptimal. PULMONARY ARTERIES: No large central or segmental pulmonary embolism. Evaluation for a more peripheral embolism somewhat limited secondary to contrast bolus timing. THORACIC AORTA: No thoracic aortic dilatation or dissection. Scattered atherosclerotic calcifications. LUNG: Diffuse, patchy and somewhat nodular ground-glass opacities throughout the entirety of the right lung with a few scattered left lower lobe foci. Findings are new when compared to the CTA chest dated 07/09/2022. No large, confluent consolidation. No large mass or nodule. The central airways are patent. PLEURA: No pleural effusion or pneumothorax. MEDIASTINUM: Normal heart size. No pericardial effusion. No hilar or mediastinal lymphadenopathy. No evidence of septal bowing or right heart strain. CORONARY ARTERY CALCIFICATION: None visualized on this study. CHEST WALL/AXILLA: No axillary or internal mammary lymphadenopathy. OSSEOUS STRUCTURES: No acute osseous abnormality. No concerning lytic or blastic osseous lesion. Redemonstration of multiple vertebral body anomalies. UPPER ABDOMEN: Unremarkable. No reflux of contrast into the hepatic veins to suggest elevated right heart pressures. CT/CT angio chest PE protocol IMPRESSION: 1. No large central or segmental pulmonary embolism. Evaluation for a more peripheral embolism somewhat limited secondary to contrast bolus timing. 2. Diffuse, patchy and somewhat nodular ground-glass opacities throughout the right lung with a few scattered left lower lobe foci. Findings are new when compared to the CT chest dated 07/09/2022. Findings likely represent a multifocal infectious or inflammatory process. No large, confluent consolidation. 3. No significant lymphadenopathy. VTE: Negative. Dictated By: Tigre Smith MD EXAMINATION: XR CHEST CLINICAL INFORMATION: Shortness of breath COMPARISON: CT angiogram chest from 07/09/2022, chest radiograph from 07/09/2022 TECHNIQUE: Frontal view of the chest was obtained. FINDINGS: Patchy radiopacity involving the right mid to lower lung bermudez may reflect developing infectious/inflammatory etiology. Mild bronchial thickening. No pneumothorax. Trachea is midline. Cardiac mediastinal silhouette is not enlarged. No large pleural effusion. Osseous structures are intact. Soft tissues are unremarkable. XR/XR chest 1V IMPRESSION: 1. Patchy radiopacity involving the right mid to lower lung bermudez may reflect developing infectious/inflammatory etiology. 2. Mild bronchial thickening. Dictated By: Citlaly Nguyen MD Prescription Management I considered prescription management with: Antiviral and Antibiotic Chronic Conditions Patient?s care impacted by: Other (Septic pulmonary embolism, endocarditis, IV drug abuse) Social Determinants Patient?s care significantly limited by Social Determinants of Health including: Alcoholism and drug addiction in family Critical Care Time Critical Care Time Critical Care Time: Yes Total Critical Care Time: 60 Attestation: I have personally provided critical care time exclusive of time spent on separately billable procedures. Time includes review of lab data, radiology results, discussion with consultants, and monitoring for potential decompensation. Intervention performed as documented. Discharge Plan Discharge Clinical Impression: Hypoxia, Pneumonia Patient Disposition: Admitted As Inpatient
[2023-10-25] MEDS: 0.9 % Sodium Chloride 1,983 ML 1983 ML IV (08:35)
[2023-10-25 08:40] LABS: MANUAL DIFF FLAG NO
[2023-10-25 08:44] LABS: Basophils Percent Auto 0.2 % (0-2); Eosinophils Absolute Auto 0.1 X10*3/uL (0.0-0.4); Eosinophils Percent Auto 1.3 % (0-4); Hematocrit 34.8 % (42.0-52.0); Hemoglobin 11.2 g/dl (14.0-18.0); Imm Gran Abs Auto 0.03 X10*3/uL (0.00-0.03); Imm Gran Pct Auto 0.4 % (0.0-0.4); Lymphocytes Absolute Auto 0.6 X10*3/uL (1.2-4.9); Lymphocytes Percent Auto 7.1 % (20-40); Mean Corpuscular HGB Conc 32.2 g/dl (31.0-36.0); Mean Corpuscular Volume 83.9 fL (80.0-98.0); Mean Platelet Volume 8.7 fL (9.4-12.4); Monocytes Absolute Auto 0.6 X10*3/uL (0.1-1.2); Monocytes Percent Auto 6.7 % (2-11); Neutrophils Absolute Auto 7.2 x10*3/uL (2.0-8.3); Neutrophils Percent Auto 84.3 % (45-73); Platelet Count 213 X10*3/uL (160-400); Red Blood Count 4.15 X10*6/uL (4.60-5.80); Red Cell Distribution Width 14.3 % (11.0-16.0); White Blood Count 8.6 X10*3/uL (4.8-10.8)
[2023-10-25 08:57] LABS: Lactic Acid 1.2 mmol/L (0.5-2.0)
[2023-10-25 08:59] LABS: COVID-19 Test Negative (Negative); IDNOW Serial# 08D9AD1C
[2023-10-25] MEDS: Acetaminophen 325 MG TABLET 650 MG PO (09:01)
[2023-10-25 09:02] LABS: Alanine Aminotransferase 55 U/L (0-40); Albumin Level 3.7 g/dL (3.5-5.0); Alkaline Phosphatase 101 U/L (39-117); Anion Gap 12 (12-20); Aspartate Amino Transferase 38 U/L (5-37); Bilirubin Direct 0.2 mg/dL (0.0-0.5); Bilirubin Total 0.3 mg/dL (0.0-1.0); Blood Urea Nitrogen 19 mg/dL (9-16); Calcium 8.7 mg/dL (8.4-10.2); Carbon Dioxide 28 mmol/L (22-29); Chloride 105 mmol/L (96-108); Creatinine Clr Calc Pharmacy 154.4; Estimated Glomerular Filt Rate > 60; Glucose Random 124 mg/dL (60-115); Lipase 8 U/L (8-78); Potassium 3.9 mmol/L (3.3-5.1); Sodium 141 mmol/L (135-145); Total Protein 7.4 g/dL (6.5-8.0)
[2023-10-25 09:04] LABS: IDNOW Serial# 152EDE1D; Influenza A Negative (Negative); Influenza B2 Negative (Negative)
[2023-10-25 09:10] LABS: Appearance Urine Cloudy; Color Urine Yellow; Glucose Urine UA Negative (Negative); Leukocyte Esterase Urine Negative (Negative); Nitrite Urine Negative (Negative); PH >= 9.0 (5.0-9.0); Specific Gravity - Urine 1.015 (1.005-1.025); Urine Blood Negative (Negative); Urine Ketones Negative (Negative); Urine Protein Negative (Neg-Trace)
[2023-10-25 09:18] LABS: Amphetamine Screen Urine POSITIVE (Not Detect); Barbiturates, Urine Not Detected (Not Detect); Benzodiazepines Screen Urine Not Detected (Not Detect); Cannabinoid Screen Urine Not Detected (Not Detect); Cocaine Screen Urine Not Detected (Not Detect); Fentanyl, urine Not Detected (Not Detect); Opiate Screen Urine Not Detected (Not Detect); Phencyclidine Screen Urine Not Detected (Not Detect)
--- NOTE | 2023-10-25 10:00 | PC.NURSE ---
PT IS A/O X 4 NO SOB/LORENZO NOTED SPEAKS IN FULL SENTENCES. LUNGS - EXP WHEEZING PT REEFUSED NEB TX AT THIS TIME PER MLP (SHERRI). PT STATES THAT HE HAS A HX OF ENDOCARDITIS. PT HAS 2+SWELLING TO R FOOT. MLP (SHERRI) AWARE. WILL CONTINUE TO MONITOR.
[2023-10-25] MEDS: Albuterol/Iprat 2.5/0.5MG 3 ML AMPUL.NEB INHALE (10:11)
[2023-10-25 10:27] LABS: Troponin-I High Sensitivity < 2.7 ng/L (<3.5-35.0)
[2023-10-25] MEDS: iohexoL 350 MG/ML 100 ML INFUS..BTL IV (12:22)
[2023-10-25 12:53] LABS: Adenovirus PCR Not Detected (Not Detect.); Bordetella parapertussis PCR Not Detected (Not Detect.); Bordetella pertussis PCR Not Detected (Not Detect.); Chlamydia pneumoniae PCR Not Detected (Not Detect.); Coronavirus 229E PCR Not Detected (Not Detect.); Coronavirus HKU1 PCR Not Detected (Not Detect.); Coronavirus NL63 PCR Not Detected (Not Detect.); Coronavirus OC43 PCR Not Detected (Not Detect.); Human metapneumovirus PCR Not Detected (Not Detect.); Influenza A PCR Not Detected (Not Detect.); Influenza B PCR Not Detected (Not Detect.); Mycoplasma pneumoniae PCR Not Detected (Not Detect.); Parainfluenza 1 PCR Not Detected (Not Detect.); Parainfluenza 2 PCR Not Detected (Not Detect.); Parainfluenza 3 PCR Not Detected (Not Detect.); Parainfluenza 4 PCR Not Detected (Not Detect.); RSV PCR Not Detected (Not Detect.); Rhino/Enterovirus PCR Not Detected (Not Detect.)
[2023-10-25 13:31] LABS: SARS-CoV-2 PCR Not Detected (Not Detect.)
[2023-10-25] MEDS: Doxycycline Monohydrate 100 MG CAPSULE PO (16:25)
[2023-10-25] MEDS: cefTRIAXone sodium 1 GM in 0.9 % Sodium Chloride 50 ML IV (16:25)
--- NOTE | 2023-10-25 16:28 | P.HPHOSP_ITS ---
History of Present Illness Date of Service: 10/25/23 Attending physician on admission: Janey Christopher Chief Complaint: sob, cough 37 year old male with history of IVDA, opioid dependence on methadone, adhd, mood disorder, hx septic emboli, asthma, hx endocarditis (strep bacteremia 06/2022) presented to the ED from [facility] for evaluation of flu like symptoms. Reports has had sob, stabbing pleuritic chest pain, productive cough with yellow sputum production as well as lightheadedness for several days. Reports sick contacts at the [place] with flu and covid. Reports subjective fevers. No sore throat, congestion, abd pain, n/v/d, syncope, palpitations, or chest pressure. On arrival, febrile to 101, tachycardic to 121, tachypneic to 22 and hypoxic to 83% on RA, placed on 2L supplemental O2 maintaining oximetry 96%. No leukocytosis. Renal function and eletrolytes normal. Lactic acid 1.2. AST 38/ALT 55. Trop below detectable limits, BNP 82. PCT pending. CTA chest negative for PE but shows multifocal groundglass opacities. In the ED given duoneb, ceftriaxone, doxycycline, and tylenol. Review of Systems 2 Review of Systems: General: No fevers, malaise, unintentional weight loss HEENT: No blurred vision, diplopia. No sore throat, nasal congestion, rhinorrhea, sinus pain, ear pain Cardiovascular: +chest pain. No palpitations, or leg edema Respiratory: +sob, +cough. No wheezing GI: No abdominal pain, nausea, vomiting, diarrhea, constipation, melena, hematochezia : No dysuria, hematuria, increased urinary frequency, decreased urinary output MSK: No myalgia, back pain Neuro: No headaches, weakness, paresthesias Skin: No rashes or lesions PMFSH Medical History Delusional disorder ADHD (attention deficit hyperactivity disorder) MDD (major depressive disorder), recurrent episode, moderate Cellulitis Hepatitis C Opiate abuse, continuous Anterior T wave inversion Pulmonary emboli Multiple abrasions Head injury Suicide attempt Abrasion of face Heroin overdose Opiate abuse, continuous Mood disorder ADHD Major depression with psychotic features Endocarditis DVT (deep venous thrombosis) Severe sepsis Anemia Eye contusion Left upper extremity deep vein thrombosis Hepatitis C IV drug abuse Surgical History Hx of eye surgery S/P left knee arthroscopy History of left knee surgery Social History Household Members: Family Household Members Other:: aunt Housing: House Housing Other:: hotel everyday Do you presently have visiting nurse or other home services: No Unable to assess alcohol history related to: Unknown Alcohol intake: current Alcohol intake frequency: a few times a week Alcohol type: hard liquor Comment: 1:1 sitter Patient Tobacco Use Status: Current everyday Tobacco user Tobacco use type: Cigarette Cigarette Packs Per Day: 1.5 Cigarettes Per Day: 30 Years Smoked: 23 Smoked in Last 30 Days: No e-Cigarette/Vaping Use: Former Use Second Hand Smoke Exposure: No Use of substances other than those prescribed or required for medical reasons: No Substance Use Type: Crack/Cocaine, Heroin and Marijuana Advance Directives: No Advance Directives Information Provided: No service: No Current occupational status: unemployed Sexual orientation: Straight/Heterosexual Meds Allergies Allergy/AdvReac Type Severity Reaction Status Date / Time haloperidol [From HALDOL] AdvReac Intermediate LOCK JAW Verified 07/31/22 01:56 olanzapine [From ZYPREXA] AdvReac Unknown PT REPORTS Verified 07/31/22 01:56 FEELS LIKE I AM ON AN ACID TRIP Home Medications Medication Instructions Recorded Confirmed Last Taken Type albuterol sulfate 90 mcg/actuation 2 puff inhalation Q4H PRN 10/25/23 10/25/23 Unknown History aerosol inhaler (Ventolin HFA) Shortness Of Breath Or Wheezing dextroamphetamine-amphetamine 30 1 tab PO DAILY@1400 10/25/23 10/25/23 Unknown History mg tablet dextroamphetamine-amphetamine ER 30 mg PO DAILY@0800 10/25/23 10/25/23 Unknown History 30 mg 24hr capsule,extend release docusate sodium 100 mg capsule 100 mg PO BID PRN Constipation 10/25/23 10/25/23 Unknown History methadone 10 mg/mL oral 85 mg PO DAILY 10/25/23 10/24/23 History concentrate (Methadose) nicotine (polacrilex) 4 mg gum 4 mg buccal Q2H PRN Nicotine 10/25/23 10/25/23 Unknown History Cravings omeprazole 20 mg capsule,delayed 20 mg PO BID heartburn 10/25/23 10/25/23 Unknown History release zolpidem 10 mg tablet 10 mg PO BEDTIME 10/25/23 10/25/23 Unknown History Physical Exam 2 Vital Signs and Narrative: Vital Signs: Last Vital Signs Temp 98.4 F 10/25/23 14:24 Pulse 76 10/25/23 14:24 Resp 17 10/25/23 14:24 BP 106/67 10/25/23 14:24 Pulse Ox 83 L 10/25/23 15:18 O2 Del Method Room Air 10/25/23 15:18 O2 Flow Rate 3 10/25/23 14:24 BMI result Body Mass Index 34.5 Constitutional - Awake and Alert, No apparent distress Eyes - PERRLA, EOMI Cardiovascular - S1S2, RRR, No edema Respiratory - Normal lung expansion, Normal respiratory effort, No respiratory distress on 2L supplemental O2, diminished lower lobes, otherwise cta Gastrointestinal - NT / ND; +BS; No rebound or guarding Extremities - no calf tenderness bilaterally, no swelling Skin - Warm/Dry Neurological - Alert & oriented x3 Psychological - Appropriate affect Results Labs 10/25/23 08:30 10/25/23 08:30 Labs: Laboratory Results - last 24 hr 10/25/23 10/25/23 10/25/23 08:30 09:03 11:28 MCV 83.9 MCH 27.0 MCHC 32.2 RDW 14.3 Plt Count 213 D MPV 8.7 L Immature Gran % (Auto) 0.4 Neut % (Auto) 84.3 H Lymph % (Auto) 7.1 L Carbon % (Auto) 6.7 Eos % (Auto) 1.3 Baso % (Auto) 0.2 Lymph # (Auto) 0.6 L Carbon # (Auto) 0.6 Eos # (Auto) 0.1 Baso # (Auto) 0.0 Abs Immat Gran (auto) 0.03 Absolute Neuts (auto) 7.2 Absolute Nucleated RBC 0.000 Nucleated RBC % (auto) 0.0 Anion Gap 12 Estim Creat Clear Calc 154.4 Estimated GFR > 60 Random Glucose 124 H Lactic Acid 1.2 Calcium 8.7 D Total Bilirubin 0.3 Direct Bilirubin 0.2 AST 38 H ALT 55 H Alkaline Phosphatase 101 Total Protein 7.4 Albumin 3.7 Lipase 8 Urine Color Yellow Urine Appearance Cloudy Urine pH >= 9.0 Ur Specific Van 1.015 Urine Protein Negative Urine Glucose (UA) Negative Urine Ketones Negative Urine Blood Negative Urine Nitrite Negative Ur Leukocyte Esterase Negative Urine Opiates Screen Not Detected Urine Fentanyl Screen Not Detected Ur Barbiturates Screen Not Detected Ur Phencyclidine Scrn Not Detected Ur Amphetamines Screen POSITIVE H U Benzodiazepines Scrn Not Detected Urine Cocaine Screen Not Detected U Marijuana (THC) Screen Not Detected Respiratory Panel Swanson See Note Adenovirus (Rapid PCR) Not Detected B.pert (TEM-PCR) Not Detected B.parapertussis DNA PCR Not Detected C. pneumoniae DNA (PCR) Not Detected Coronavirus OC43 (PCR) Not Detected Coronavirus HKU1 (PCR) Not Detected Coronavirus 229E (PCR) Not Detected COVID-19 (MARILYN) Negative COVID-19 Clin Com See Note Coronavirus NL63 (PCR) Not Detected Human Metapneumovir PCR Not Detected Influenza Type A (MARIIA) Negative Influenza A (RT-PCR) Not Detected Influenza Type B (MARIIA) Negative Influenza B (RT-PCR) Not Detected Influenza A & B Note See Note M. pneumoniae (PCR) Not Detected Parainfluenza 1 (PCR) Not Detected Parainfluenza 2 (PCR) Not Detected Parainfluenza 3 (PCR) Not Detected Parainfluenza 4 (PCR) Not Detected RSV (PCR) Not Detected Entero/Rhino (PCR) Not Detected SARS-CoV-2 RNA (RT-PCR) Not Detected Imaging Radiologist's Impressions: Impressions Chest X-Ray 10/25/23 08:44 IMPRESSION: 1. Patchy radiopacity involving the right mid to lower lung bermudez may reflect developing infectious/inflammatory etiology. 2. Mild bronchial thickening. Chest CTA 10/25/23 12:33 IMPRESSION: 1. No large central or segmental pulmonary embolism. Evaluation for a more peripheral embolism somewhat limited secondary to contrast bolus timing. 2. Diffuse, patchy and somewhat nodular ground-glass opacities throughout the right lung with a few scattered left lower lobe foci. Findings are new when compared to the CT chest dated 07/09/2022. Findings likely represent a multifocal infectious or inflammatory process. No large, confluent consolidation. 3. No significant lymphadenopathy. VTE: Negative. Assessment and Plan (1) Pneumonia: Status: Acute (2) Hypoxia: Status: Acute Plan 37 year old male with history of IVDA, opioid dependence on methadone, adhd, mood disorder, hx septic emboli, asthma, hx endocarditis (strep bacteremia 06/2022) admitted for further management of acute hypoxemic respiratory failure due to multifocal pneumonia. #Acute hypoxemic respiratory failure due to multifocal pneumonia -IV ceftriaxone 1g and IV doxycycline 100mg BID (initiated 10/25) -Strep pneumoni ag, legionella ag, sputum culture, and MRSA nasal swab ordered -Check HIV ab given hx IVDA -symptomatic management -Follow CBC, cultures -continue supplemental O2 to maintain oximetry >92%, wean as tolerated -duonebs prn #Sepsis- resolved on admission -due to above #Transaminitis -chronic mild elevation -check hiv, hep c viral load given recent hx ivda #Mild intermittent asthma -no acute exacerbation -nebs prn as above #Opioid dependence -continue methadone #Unspecified mood disorder -continue home meds #Chronic normocytic anemia -h/h baseline, above transfusion threshold DVt prophylaxis- lovenox Full code Pt requries inpt stay at least 2 midnights for management of acute hypoxemic respiratory failure due to multifocal pneumonia requiring IV abx and supplemental o2 Quality Stroke Does the patient have a stroke diagnosis?: No VTE Prior VTE?: No VTE Risk Level:: Medical - moderate - high VTE Device Contraindication: Treatment Not Indicated VTE Drug Contraindication: N/A - Med Ordered
[2023-10-25 16:31] LABS: B Type Natriuretic Peptide 82 pg/mL (<100)
--- NOTE | 2023-10-25 16:42 | PHA.MEDREC ---
Pharmacy Consult ? Medication Reconciliation Pharmacy has completed the medication reconciliation. Spoke with patient to confirm medications and also confirmed with PDMP. He reports a methadone dose of 85 mg last taken yesterday at [facility].
[2023-10-25] MEDS: guaiFENesin 200 MG/10 ML 10 ML LIQUID PO ×2 (16:45→22:10)
[2023-10-25] MEDS: Enoxaparin Sodium 40 MG/0.4 ML SYRINGE SUBCUT (16:45)
[2023-10-25 17:36] LABS: Procalcitonin 1.09 ng/mL
[2023-10-25] MEDS: Prazosin HCL 1 MG CAPSULE 2 MG PO (22:10)
[2023-10-25] MEDS: Amitriptyline HCl 25 MG TABLET PO (22:10)
[2023-10-25] MEDS: Zolpidem Tartrate 5 MG TABLET 10 MG PO (22:11)
[2023-10-25] MEDS: busPIRone HCl 10 MG TABLET 30 MG PO (22:12)
[2023-10-25] MEDS: Gabapentin 400 MG CAPSULE 800 MG PO (22:12)
[2023-10-25] MEDS: QUEtiapine Fumarate 300 MG TABLET PO (22:13)
[2023-10-25] MEDS: 0.9 % Sodium Chloride Flush 3 ML SYRINGE IVFLUSH (22:14)
[2023-10-26 04:00] VITALS: BP 140/70; PULSE 80; RESP 17; TEMP 36.8; O2SAT 96
[2023-10-26] MEDS: Doxycycline Hyclate 100 MG in 0.9 % Sodium Chloride 250 ML 166.67 MG IV ×2 (05:36→17:10)
[2023-10-26] MEDS: Omeprazole 20 MG CAPSULE.DR PO ×2 (05:37→15:57)
[2023-10-26] MEDS: guaiFENesin 200 MG/10 ML 10 ML LIQUID PO ×4 (05:37→21:51)
--- NOTE | 2023-10-26 05:45 | PC.NURSE ---
Patient has specimen cup for urine and sputum at the bedside for my shift. States this morning that he prefers to urinate in the urinal instead. I explained that he needs to clean with the towlette provided and provide a specimen into the cup which is sterile.
[2023-10-26] MEDS: Albuterol/Iprat 2.5/0.5MG 3 ML AMPUL.NEB INHALE (06:13)
[2023-10-26 06:15] VITALS: PULSE 92; RESP 18; O2SAT 92
[2023-10-26 06:48] LABS: MANUAL DIFF FLAG NO
[2023-10-26 07:09] LABS: Basophils Percent Auto 0.3 % (0-2); Eosinophils Absolute Auto 0.4 X10*3/uL (0.0-0.4); Eosinophils Percent Auto 5.7 % (0-4); Hematocrit 34.6 % (42.0-52.0); Imm Gran Abs Auto 0.02 X10*3/uL (0.00-0.03); Imm Gran Pct Auto 0.3 % (0.0-0.4); Lymphocytes Absolute Auto 1.5 X10*3/uL (1.2-4.9); Lymphocytes Percent Auto 22.8 % (20-40); Mean Corpuscular HGB Conc 31.8 g/dl (31.0-36.0); Mean Corpuscular Hemoglobin 27.6 pg (27.0-33.0); Mean Corpuscular Volume 86.9 fL (80.0-98.0); Monocytes Absolute Auto 0.4 X10*3/uL (0.1-1.2); Monocytes Percent Auto 6.9 % (2-11); Neutrophils Absolute Auto 4.1 x10*3/uL (2.0-8.3); Platelet Count 219 X10*3/uL (160-400); Red Blood Count 3.98 X10*6/uL (4.60-5.80); Red Cell Distribution Width 14.6 % (11.0-16.0); White Blood Count 6.4 X10*3/uL (4.8-10.8)
[2023-10-26 07:17] LABS: Anion Gap 11 (12-20); Blood Urea Nitrogen 11 mg/dL (9-16); Carbon Dioxide 28 mmol/L (22-29); Chloride 106 mmol/L (96-108); Creatinine Clr Calc Pharmacy 161.2; Estimated Glomerular Filt Rate > 60; Glucose Random 92 mg/dL (60-115); Potassium 3.5 mmol/L (3.3-5.1); Sodium 141 mmol/L (135-145)
[2023-10-26 07:55] VITALS: BP 135/74; PULSE 86; RESP 18; TEMP 36.9; O2SAT 90
--- NOTE | 2023-10-26 08:02 | PC.NURSE ---
85mg Methadone, verify from [facility], form faxed to pharmacy, placed in pt chart.
--- NOTE | 2023-10-26 08:05 | HE.PHANOTE ---
re methadone PATIENT GETS 85 MG METHADONE FROM [facility], LAST DOSES WITH 85 MG ON 10/24/23 @836AM
[2023-10-26] MEDS: buPROPion HCl XL 150 MG TAB.ER.24H PO (08:47)
[2023-10-26] MEDS: Dextroamphetamine/Amphetamine XR 10 MG CAP.ER.24H 30 MG PO (08:47)
[2023-10-26] MEDS: Nicotine 21 MG PATCH.TD24 TRANSDERMA (08:47)
[2023-10-26] MEDS: Gabapentin 400 MG CAPSULE 800 MG PO ×3 (08:47→21:51)
[2023-10-26] MEDS: busPIRone HCl 10 MG TABLET 30 MG PO ×3 (08:47→21:51)
[2023-10-26] MEDS: 0.9 % Sodium Chloride Flush 3 ML SYRINGE IVFLUSH ×3 (08:48→21:51)
--- NOTE | 2023-10-26 09:00 | PC.NURSE ---
Pt educated about collecting samples for the lab, states understanding for Sputum and Urine.
[2023-10-26] MEDS: methADONE HCl 20 MG/2 ML ORAL.CONC 85 MG PO (10:06)
[2023-10-26 10:46] LABS: MRSA Nasal PCR POSITIVE (Negative); SA Nasal PCR POSITIVE (Negative)
--- NOTE | 2023-10-26 10:53 | P.PNIM_ITS ---
Subjective Subjective Date of Service: 10/26/23 Interval History: Complaining cough productive of clear phlegm and shortness of breath, tolerating diet refusing to provide sample of sputum and urine, no fevers, no chills, no acute issues overnight.. Review of Systems All other system reviewed and negative. Physical Exam 2 Vital Signs: Vital Signs: Last Vital Signs Temp 98.5 F 10/26/23 07:55 Pulse 86 10/26/23 07:55 Resp 18 10/26/23 07:55 BP 135/74 10/26/23 07:55 Pulse Ox 90 L 10/26/23 07:55 O2 Del Method Room Air 10/26/23 07:55 O2 Flow Rate 3 10/26/23 04:00 BMI result Body Mass Index 34.5 Const: Other: General resting comfortably in no acute distress. Anicteric sclera Neck supple no JVD. CVS regular rate rhythm, Respiratory lungs clear to auscultation, no respiratory distress, no wheeze, no rhonchi. Gastrointestinal abdomen soft, non tender, bowel sounds audible, no guarding , no rigidity. Extremities no edema. Neuro nonfocal , alert oriented x3, speech clear. Skin no rash Psych appropriate affect Objective Data Active Medications Albuterol/Ipratropium (Albuterol/Iprat 2.5/0.5mg 3 Ml Ampul.Neb) 3 ml INHALE RQ4H WHILE AWAKE PRN PRN Reason: Shortness of Breath/Wheezing Last Admin: 10/26/23 06:13 Dose: 3 ml Documented By: BRENDA Amitriptyline HCl (Amitriptyline Hcl 25 Mg Tablet) 25 mg PO BEDTIME [facility] Last Admin: 10/25/23 22:10 Dose: 25 mg Documented By: BEST Amphetamine/Dextroamphetamine (Dextroamphetamine/Amphetamine Xr 10 Mg Cap.Er.24h) 30 mg PO DAILY@0800 [facility] Last Admin: 10/26/23 08:47 Dose: 30 mg Documented By: MIGUELINA Amphetamine/Dextroamphetamine (Amphetamine Mixed Salts 10 Mg Tablet) 30 mg PO DAILY@1400 [facility] Benzonatate (Benzonatate 100 Mg Capsule) 100 mg PO TID PRN PRN Reason: Cough Bupropion HCl (Bupropion Hcl Xl 150 Mg Tab.Er.24h) 150 mg PO DAILY [facility] Last Admin: 10/26/23 08:47 Dose: 150 mg Documented By: MIGUELINA Buspirone HCl (Buspirone Hcl 10 Mg Tablet) 30 mg PO TID [facility] Last Admin: 10/26/23 08:47 Dose: 30 mg Documented By: MIGUELINA Clonidine HCl (Clonidine Hcl 0.1 Mg Tablet) 0.1 mg PO Q4H PRN; Protocol PRN Reason: anxiety/insomnia Docusate Sodium (Docusate Sodium 100 Mg Capsule) 100 mg PO BID PRN PRN Reason: Constipation Enoxaparin Sodium (Enoxaparin Sodium 40 Mg/0.4 Ml Syringe) 40 mg SUBCUT Q24H [facility] Last Admin: 10/25/23 16:45 Dose: 40 mg Documented By: NATALIIA Gabapentin (Gabapentin 400 Mg Capsule) 800 mg PO TID [facility] Last Admin: 10/26/23 08:47 Dose: 800 mg Documented By: MIGUELINA Guaifenesin (Guaifenesin 200 Mg/10 Ml 10 Ml Liquid) 10 ml PO Q6H [facility] Last Admin: 10/26/23 10:06 Dose: 10 ml Documented By: MIGUELINA Hydroxyzine HCl (Hydroxyzine Hcl 25 Mg Tablet) 25 mg PO Q6H PRN PRN Reason: Anxiety Ceftriaxone Sodium 1 gm/ (Sodium Chloride) 50 mls @ 100 mls/hr IV Q24H [facility] Doxycycline Hyclate 100 mg/ (Sodium Chloride) 250 mls @ 166.67 mls/hr IV Q12H [facility] Last Infusion: 10/26/23 07:41 Dose: Infused Documented By: MIGUELINA Methadone HCl (Methadone Hcl 20 Mg/2 Ml Oral.Conc) 85 mg PO DAILY [facility] Last Admin: 10/26/23 10:06 Dose: 85 mg Documented By: MIGUELINA Nicotine (Nicotine 21 Mg Patch.Td24) 21 mg TRANSDERMA DAILY [facility] Last Admin: 10/26/23 08:47 Dose: 21 mg Documented By: MIGUELINA Nicotine Polacrilex (Nicotine Polacrilex 2 Mg Gum) 4 mg BUCCAL Q2H PRN PRN Reason: Nicotine Cravings Omeprazole (Omeprazole 20 Mg Capsule.Dr) 20 mg PO BID@0630,1630 [facility] Last Admin: 10/26/23 05:37 Dose: 20 mg Documented By: HO.MENM Ondansetron HCl (Ondansetron Hcl 4 Mg/2 Ml Vial) 4 mg IVPUSH Q8H PRN PRN Reason: Nausea and Vomiting Prazosin HCl (Prazosin Hcl 1 Mg Capsule) 2 mg PO BEDTIME [facility]; Protocol Last Admin: 10/25/23 22:10 Dose: 2 mg Documented By: BEST Quetiapine Fumarate (Quetiapine Fumarate 25 Mg Tablet) 25 mg PO BID PRN PRN Reason: anxiety Quetiapine Fumarate (Quetiapine Fumarate 300 Mg Tablet) 300 mg PO BEDTIME [facility] Last Admin: 10/25/23 22:13 Dose: 300 mg Documented By: BEST Senna (Sennosides 8.6 Mg Tablet) 17.2 mg PO BEDTIME PRN PRN Reason: Constipation Sodium Chloride (0.9 % Sodium Chloride Flush 3 Ml Syringe) 3 ml IVFLUSH QSHIFT [facility] Last Admin: 10/26/23 08:48 Dose: 3 ml Documented By: MIGUELINA Zolpidem Tartrate (Zolpidem Tartrate 5 Mg Tablet) 10 mg PO BEDTIME [facility] Last Admin: 10/25/23 22:11 Dose: 10 mg Documented By: BEST Comments: Labs 10/26/23 06:05 10/26/23 06:05 Labs: Laboratory Results - last 24 hr 10/25/23 10/25/23 10/25/23 08:30 11:28 16:04 MCV MCH MCHC RDW Plt Count MPV Immature Gran % (Auto) Neut % (Auto) Lymph % (Auto) Kerr % (Auto) Eos % (Auto) Baso % (Auto) Lymph # (Auto) Kerr # (Auto) Eos # (Auto) Baso # (Auto) Abs Immat Gran (auto) Absolute Neuts (auto) Absolute Nucleated RBC Nucleated RBC % (auto) Anion Gap Estim Creat Clear Calc Estimated GFR Random Glucose Calcium B-Natriuretic Peptide 82 Procalcitonin 1.09 Nasal Screen MRSA (PCR) Nasal S. aureus Screen Nasal MRSA/S.aureus Interp Respiratory Panel Swanson See Note Adenovirus (Rapid PCR) Not Detected B.pert (TEM-PCR) Not Detected B.parapertussis DNA PCR Not Detected C. pneumoniae DNA (PCR) Not Detected Coronavirus OC43 (PCR) Not Detected Coronavirus HKU1 (PCR) Not Detected Coronavirus 229E (PCR) Not Detected Coronavirus NL63 (PCR) Not Detected Human Metapneumovir PCR Not Detected Influenza A (RT-PCR) Not Detected Influenza B (RT-PCR) Not Detected M. pneumoniae (PCR) Not Detected Parainfluenza 1 (PCR) Not Detected Parainfluenza 2 (PCR) Not Detected Parainfluenza 3 (PCR) Not Detected Parainfluenza 4 (PCR) Not Detected RSV (PCR) Not Detected Entero/Rhino (PCR) Not Detected SARS-CoV-2 RNA (RT-PCR) Not Detected 10/25/23 10/26/23 22:30 06:05 MCV 86.9 MCH 27.6 MCHC 31.8 RDW 14.6 Plt Count 219 MPV 9.0 L Immature Gran % (Auto) 0.3 Neut % (Auto) 64.0 Lymph % (Auto) 22.8 Kerr % (Auto) 6.9 Eos % (Auto) 5.7 H Baso % (Auto) 0.3 Lymph # (Auto) 1.5 Kerr # (Auto) 0.4 Eos # (Auto) 0.4 Baso # (Auto) 0.0 Abs Immat Gran (auto) 0.02 Absolute Neuts (auto) 4.1 Absolute Nucleated RBC 0.000 Nucleated RBC % (auto) 0.0 Anion Gap 11 L Estim Creat Clear Calc 161.2 Estimated GFR > 60 Random Glucose 92 Calcium 9.0 B-Natriuretic Peptide Procalcitonin Nasal Screen MRSA (PCR) POSITIVE A Nasal S. aureus Screen POSITIVE A Nasal MRSA/S.aureus Interp SEE NOTE Respiratory Panel Swanson Adenovirus (Rapid PCR) B.pert (TEM-PCR) B.parapertussis DNA PCR C. pneumoniae DNA (PCR) Coronavirus OC43 (PCR) Coronavirus HKU1 (PCR) Coronavirus 229E (PCR) Coronavirus NL63 (PCR) Human Metapneumovir PCR Influenza A (RT-PCR) Influenza B (RT-PCR) M. pneumoniae (PCR) Parainfluenza 1 (PCR) Parainfluenza 2 (PCR) Parainfluenza 3 (PCR) Parainfluenza 4 (PCR) RSV (PCR) Entero/Rhino (PCR) SARS-CoV-2 RNA (RT-PCR) Microbiology Microbiology Results: Microbiology 10/25/23 08:30 Blood Culture - Preliminary Blood - Venous No growth after 24 hours. Assessment and Plan (1) Septic arthritis of right ankle: Status: Acute (2) Opioid use disorder, severe, dependence: Status: Acute Plan 37 year old male with history of IVDA, opioid dependence on methadone, adhd, mood disorder, hx septic emboli, asthma, hx endocarditis (strep bacteremia 06/2022) admitted for further management of acute hypoxemic respiratory failure due to multifocal pneumonia. #Acute hypoxemic respiratory failure due to multifocal pneumonia -complaining of persistent shortness of breath and cough -CTA chest showed no PE, showed diffuse patchy/nodular ground-glass opacities throughout right lung with few scattered left lower lobe foci, new since CT chest 07/09/2022. -respiratory viral panel negative -on IV ceftriaxone 1g and IV doxycycline 100mg BID (initiated 10/25) -Strep pneumoni ag, legionella ag, sputum culture ordered but not collected patient refused to provide sputum sample,ch.+ MRSA nasal swab -HIV ab pending -normal WBC, blood cultures pending -continue supplemental O2 to maintain oximetry >92%, wean as tolerated -continue duonebs prn -encourage incentive spirometry, recommend out of bed to chair and ambulation #Sepsis- resolved ,due to above #Transaminitis -chronic mild elevation - hiv, hep c viral load pending #Mild intermittent asthma -no acute exacerbation -nebs prn as above #Opioid dependence -continue methadone #Unspecified mood disorder -continue home meds #Chronic normocytic anemia -h/h baseline, above transfusion threshold DVt prophylaxis- lovenox Full code Pt requries inpt stay for management of acute hypoxemic respiratory failure due to multifocal pneumonia requiring IV abx and supplemental o2 Quality Stroke Does the patient have a stroke diagnosis?: No VTE Prior VTE?: No VTE Risk Level:: Medical - moderate - high VTE Device Contraindication: Treatment Not Indicated VTE Drug Contraindication: N/A - Med Ordered
[2023-10-26] MEDS: Amphetamine Mixed Salts 10 MG TABLET 30 MG PO (15:03)
[2023-10-26 15:34] VITALS: BP 132/74; PULSE 85; RESP 18; TEMP 36.1; O2SAT 97
[2023-10-26] MEDS: Acetaminophen 325 MG TABLET 650 MG PO (15:57)
[2023-10-26] MEDS: cefTRIAXone sodium 1 GM in 0.9 % Sodium Chloride 50 ML IV (15:57)
--- NOTE | 2023-10-26 16:18 | MHC.CM.PN ---
PT REPORTS HE IS CURRENTLY IN A [facility] RUN BY [facility] AT [address] [place] [address] [place] HE REPORTS HE CAN RETURN THERE AT DC HE SAYS HE IS WAITING FOR A BED TO OPEN AT A [facility] [place] PT DECLINES A RESOURCE BOOKLET AND SAYS HE HAS EVERYTHING HE NEEDS PT HAS A HCP ON FILE PCP: RODOLFO BEE DCP: RETURN TO TSS VIA PROGRAM STAFF
[2023-10-26] MEDS: Enoxaparin Sodium 40 MG/0.4 ML SYRINGE SUBCUT (17:00)
[2023-10-26 19:44] VITALS: BP 126/63; PULSE 89; RESP 17; TEMP 37.1; O2SAT 98
[2023-10-26] MEDS: QUEtiapine Fumarate 300 MG TABLET PO (21:51)
[2023-10-26] MEDS: Amitriptyline HCl 25 MG TABLET PO (21:51)
[2023-10-26] MEDS: Zolpidem Tartrate 5 MG TABLET 10 MG PO (21:51)
[2023-10-26] MEDS: Prazosin HCL 1 MG CAPSULE 2 MG PO (21:51)
[2023-10-27 03:22] VITALS: BP 125/64; PULSE 81; RESP 16; TEMP 36; O2SAT 97
[2023-10-27] MEDS: Doxycycline Hyclate 100 MG in 0.9 % Sodium Chloride 250 ML 166.67 MG IV ×2 (05:40→20:35)
[2023-10-27] MEDS: Omeprazole 20 MG CAPSULE.DR PO ×2 (05:40→17:42)
[2023-10-27] MEDS: guaiFENesin 200 MG/10 ML 10 ML LIQUID PO ×4 (05:40→22:37)
[2023-10-27 07:28] VITALS: BP 128/72; PULSE 75; RESP 18; TEMP 36.4; O2SAT 98
[2023-10-27] MEDS: Dextroamphetamine/Amphetamine XR 10 MG CAP.ER.24H 30 MG PO (08:25)
[2023-10-27] MEDS: busPIRone HCl 10 MG TABLET 30 MG PO ×3 (08:25→20:34)
[2023-10-27] MEDS: methADONE HCl 20 MG/2 ML ORAL.CONC 85 MG PO (08:25)
[2023-10-27] MEDS: Gabapentin 400 MG CAPSULE 800 MG PO ×3 (08:25→20:34)
[2023-10-27] MEDS: buPROPion HCl XL 150 MG TAB.ER.24H PO (08:25)
[2023-10-27] MEDS: Nicotine 21 MG PATCH.TD24 TRANSDERMA (08:26)
[2023-10-27] MEDS: 0.9 % Sodium Chloride Flush 3 ML SYRINGE IVFLUSH ×3 (08:26→20:03)
[2023-10-27 08:27] LABS: HIV AB/AG Nonreactive (Nonreactive); HIV Num 1 0.06 S/CO (0.00-0.99)
[2023-10-27] MEDS: hydrOXYzine HCL 25 MG TABLET PO ×2 (08:33→20:35)
--- NOTE | 2023-10-27 12:16 | HO.PM.IMPN ---
Subjective Subjective Date of Service: 10/27/23 Interval History: Feeling better this morning, still complaining of dizziness and shortness of breath with ambulation, coughing up blood tinged sputum, denies fever, no chills. Review of Systems All other system reviewed and negative. Physical Exam Vital Signs: Vital Signs: Last Vital Signs Temp 97.6 F 10/27/23 07:28 Pulse 75 10/27/23 07:28 Resp 18 10/27/23 07:28 BP 128/72 10/27/23 07:28 Pulse Ox 98 10/27/23 07:28 O2 Del Method Nasal Cannula 10/27/23 07:28 O2 Flow Rate 2 10/27/23 07:28 BMI result Body Mass Index 34.5 Const: Other: General resting comfortably in no acute distress. Anicteric sclera Neck supple no JVD. CVS regular rate rhythm, Respiratory lungs coarse BS , no respiratory distress, no wheeze, no rhonchi. Gastrointestinal abdomen soft, non tender, bowel sounds audible, no guarding , no rigidity. Extremities no edema. Neuro nonfocal , alert oriented x3, speech clear. Skin no rash Psych appropriate affect Objective Data Active Medications Acetaminophen (Acetaminophen 325 Mg Tablet) 650 mg PO Q6H PRN PRN Reason: Pain, Mild (Pain Scale 1-3) Last Admin: 10/26/23 15:57 Dose: 650 mg Documented By: MIGUELINA Albuterol/Ipratropium (Albuterol/Iprat 2.5/0.5mg 3 Ml Ampul.Neb) 3 ml INHALE RQ4H WHILE AWAKE PRN PRN Reason: Shortness of Breath/Wheezing Last Admin: 10/26/23 06:13 Dose: 3 ml Documented By: BRENDA Amitriptyline HCl (Amitriptyline Hcl 25 Mg Tablet) 25 mg PO BEDTIME [facility] Last Admin: 10/26/23 21:51 Dose: 25 mg Documented By: MATTHEW Amphetamine/Dextroamphetamine (Dextroamphetamine/Amphetamine Xr 10 Mg Cap.Er.24h) 30 mg PO DAILY@0800 [facility] Last Admin: 10/27/23 08:25 Dose: 30 mg Documented By: FLOYD Amphetamine/Dextroamphetamine (Amphetamine Mixed Salts 10 Mg Tablet) 30 mg PO DAILY@1400 [facility] Last Admin: 10/26/23 15:03 Dose: 30 mg Documented By: MIGUELINA Benzonatate (Benzonatate 100 Mg Capsule) 100 mg PO TID PRN PRN Reason: Cough Bupropion HCl (Bupropion Hcl Xl 150 Mg Tab.Er.24h) 150 mg PO DAILY [facility] Last Admin: 10/27/23 08:25 Dose: 150 mg Documented By: FLOYD Buspirone HCl (Buspirone Hcl 10 Mg Tablet) 30 mg PO TID [facility] Last Admin: 10/27/23 08:25 Dose: 30 mg Documented By: FLOYD Clonidine HCl (Clonidine Hcl 0.1 Mg Tablet) 0.1 mg PO Q4H PRN; Protocol PRN Reason: anxiety/insomnia Docusate Sodium (Docusate Sodium 100 Mg Capsule) 100 mg PO BID PRN PRN Reason: Constipation Enoxaparin Sodium (Enoxaparin Sodium 40 Mg/0.4 Ml Syringe) 40 mg SUBCUT Q24H [facility] Last Admin: 10/26/23 17:00 Dose: 40 mg Documented By: MIGUELINA Gabapentin (Gabapentin 400 Mg Capsule) 800 mg PO TID [facility] Last Admin: 10/27/23 08:25 Dose: 800 mg Documented By: FLOYD Guaifenesin (Guaifenesin 200 Mg/10 Ml 10 Ml Liquid) 10 ml PO Q6H [facility] Last Admin: 10/27/23 11:07 Dose: 10 ml Documented By: FLOYD Hydroxyzine HCl (Hydroxyzine Hcl 25 Mg Tablet) 25 mg PO Q6H PRN PRN Reason: Anxiety Last Admin: 10/27/23 08:33 Dose: 25 mg Documented By: FLOYD Ceftriaxone Sodium 1 gm/ (Sodium Chloride) 50 mls @ 100 mls/hr IV Q24H [facility] Last Infusion: 10/26/23 17:00 Dose: Infused Documented By: MIGUELINA Doxycycline Hyclate 100 mg/ (Sodium Chloride) 250 mls @ 166.67 mls/hr IV Q12H [facility] Last Infusion: 10/27/23 07:10 Dose: Infused Documented By: FLOYD Methadone HCl (Methadone Hcl 20 Mg/2 Ml Oral.Conc) 85 mg PO DAILY [facility] Last Admin: 10/27/23 08:25 Dose: 85 mg Documented By: FLOYD Nicotine (Nicotine 21 Mg Patch.Td24) 21 mg TRANSDERMA DAILY [facility] Last Admin: 10/27/23 08:26 Dose: 21 mg Documented By: FLOYD Nicotine Polacrilex (Nicotine Polacrilex 2 Mg Gum) 4 mg BUCCAL Q2H PRN PRN Reason: Nicotine Cravings Omeprazole (Omeprazole 20 Mg Capsule.) 20 mg PO BID@0630,1630 [facility] Last Admin: 10/27/23 05:40 Dose: 20 mg Documented By: MATTHEW Ondansetron HCl (Ondansetron Hcl 4 Mg/2 Ml Vial) 4 mg IVPUSH Q8H PRN PRN Reason: Nausea and Vomiting Prazosin HCl (Prazosin Hcl 1 Mg Capsule) 2 mg PO BEDTIME [facility]; Protocol Last Admin: 10/26/23 21:51 Dose: 2 mg Documented By: MATTHEW Quetiapine Fumarate (Quetiapine Fumarate 25 Mg Tablet) 25 mg PO BID PRN PRN Reason: anxiety Quetiapine Fumarate (Quetiapine Fumarate 300 Mg Tablet) 300 mg PO BEDTIME [facility] Last Admin: 10/26/23 21:51 Dose: 300 mg Documented By: MATTHEW Senna (Sennosides 8.6 Mg Tablet) 17.2 mg PO BEDTIME PRN PRN Reason: Constipation Sodium Chloride (0.9 % Sodium Chloride Flush 3 Ml Syringe) 3 ml IVFLUSH QSHIFT [facility] Last Admin: 10/27/23 08:26 Dose: 3 ml Documented By: FLOYD Triamcinolone Acetonide (Triamcinolone Acet 0.025 % Cream 15 Gm Tube) 1 appl TOPICAL DAILY [facility]; Protocol Zolpidem Tartrate (Zolpidem Tartrate 5 Mg Tablet) 10 mg PO BEDTIME [facility] Last Admin: 10/26/23 21:51 Dose: 10 mg Documented By: MATTHEW Labs 10/26/23 06:05 10/26/23 06:05 Labs: Laboratory Results - last 24 hr 10/25/23 16:53 HIV 1&2 Ab/P24 Ag 4thGn Nonreactive Microbiology Microbiology Results: Microbiology 10/25/23 08:54 Blood Culture - Preliminary Blood - Venous No growth after 48 hours. 10/25/23 08:30 Blood Culture - Preliminary Blood - Venous No growth after 48 hours. 10/26/23 16:27 Gram Stain - Final Sputum - Expectorated Sputum Culture - Final Assessment and Plan (1) Septic arthritis of right ankle: Status: Acute (2) Opioid use disorder, severe, dependence: Status: Acute Plan 37 year old male with history of IVDA, opioid dependence on methadone, adhd, mood disorder, hx septic emboli, asthma, hx endocarditis (strep bacteremia 06/2022) admitted for further management of acute hypoxemic respiratory failure due to multifocal pneumonia. #Acute hypoxemic respiratory failure due to multifocal pneumonia -overall better but persistent shortness of breath and cough -CTA chest showed no PE, showed diffuse patchy/nodular ground-glass opacities throughout right lung with few scattered left lower lobe foci, new since CT chest 07/09/2022. -respiratory viral panel negative -on IV ceftriaxone 1g and IV doxycycline 100mg BID (initiated 10/25) -sputum culture pending ,ch.+ MRSA nasal swab -HIV ab and hepatitis-C viral load pending -normal WBC, blood cultures negative -continue supplemental O2 to maintain oximetry >92%, wean as tolerated -continue duonebs prn -encourage incentive spirometry, recommend out of bed to chair and ambulation as tolerated #Sepsis- resolved ,due to above #Transaminitis -chronic mild elevation - hiv, hep c viral load pending #Mild intermittent asthma -no acute exacerbation -nebs prn as above #Opioid dependence -continue methadone #Unspecified mood disorder -continue home meds #Chronic normocytic anemia -h/h baseline, above transfusion threshold # facial rash likely dermatitis placed on low potency steroid cream DVt prophylaxis- lovenox Full code Pt requries inpt stay for management of acute hypoxemic respiratory failure due to multifocal pneumonia requiring IV abx and supplemental o2 Quality Stroke Does the patient have a stroke diagnosis?: No VTE Prior VTE?: No VTE Risk Level:: Medical - moderate - high VTE Device Contraindication: Treatment Not Indicated VTE Drug Contraindication: N/A - Med Ordered
[2023-10-27] MEDS: Triamcinolone Acet 0.025 % Cream 15 GM TUBE 1 APPL TOPICAL (12:41)
--- NOTE | 2023-10-27 13:30 | MHC.CM.PN ---
Per MD rounds no discharge today. Patient requires supplemental oxygen and IV ABX. DP return to [facility], Staff will provide transportation.
[2023-10-27] MEDS: Amphetamine Mixed Salts 10 MG TABLET 30 MG PO (14:05)
[2023-10-27 15:27] VITALS: BP 134/73; PULSE 84; RESP 16; TEMP 36.7; O2SAT 98
[2023-10-27] MEDS: Enoxaparin Sodium 40 MG/0.4 ML SYRINGE SUBCUT (17:42)
--- NOTE | 2023-10-27 18:42 | PC.NURSE ---
IV access lost this afternoon; attempts to place additional catheters unsuccessful. Nurse day habilitation supervisor notified; awaiting provider to come to bedside for US guided IV placement
[2023-10-27 19:58] VITALS: BP 125/69; PULSE 86; RESP 18; TEMP 36.7; O2SAT 95
[2023-10-27] MEDS: cefTRIAXone sodium 1 GM in 0.9 % Sodium Chloride 50 ML IV (20:02)
[2023-10-27] MEDS: QUEtiapine Fumarate 300 MG TABLET PO (20:34)
[2023-10-27] MEDS: Amitriptyline HCl 25 MG TABLET PO (20:34)
[2023-10-27] MEDS: Prazosin HCL 1 MG CAPSULE 2 MG PO (20:34)
[2023-10-27] MEDS: Zolpidem Tartrate 5 MG TABLET 10 MG PO (20:34)
[2023-10-27] MEDS: Benzonatate 100 MG CAPSULE PO (20:35)
[2023-10-28 03:42] VITALS: BP 136/82; PULSE 72; RESP 18; TEMP 37; O2SAT 96
[2023-10-28] MEDS: Omeprazole 20 MG CAPSULE.DR PO ×2 (05:40→15:47)
[2023-10-28] MEDS: guaiFENesin 200 MG/10 ML 10 ML LIQUID PO ×4 (05:40→22:06)
[2023-10-28 06:49] VITALS: BP 118/73; PULSE 70; RESP 17; TEMP 36.6; O2SAT 96
[2023-10-28] MEDS: Dextroamphetamine/Amphetamine XR 10 MG CAP.ER.24H 30 MG PO (08:31)
[2023-10-28] MEDS: methADONE HCl 20 MG/2 ML ORAL.CONC 85 MG PO (08:31)
[2023-10-28] MEDS: 0.9 % Sodium Chloride Flush 3 ML SYRINGE IVFLUSH ×3 (08:31→19:54)
[2023-10-28] MEDS: Gabapentin 400 MG CAPSULE 800 MG PO ×3 (08:31→20:30)
[2023-10-28] MEDS: buPROPion HCl XL 150 MG TAB.ER.24H PO (08:31)
[2023-10-28] MEDS: busPIRone HCl 10 MG TABLET 30 MG PO ×3 (08:31→20:30)
[2023-10-28] MEDS: Benzonatate 100 MG CAPSULE PO ×2 (08:31→20:30)
[2023-10-28] MEDS: Nicotine 21 MG PATCH.TD24 TRANSDERMA (08:31)
[2023-10-28] MEDS: Doxycycline Hyclate 100 MG in 0.9 % Sodium Chloride 250 ML 166.67 MG IV ×2 (08:32→20:29)
--- NOTE | 2023-10-28 11:33 | MHC.CM.PN ---
Patient was planned for discharge today. He does not have a bed today. The [facility] will accept the [facility] tomorrow. Staff will provide transportation.
--- NOTE | 2023-10-28 11:43 | MHC.RECOVRN ---
CM notified t/w there was difficulty with pt being accepted back to [facility]. T/w spoke with Sheila Cameron who confirmed pt is able to return to [facility] tomorrow, will be picked up at 11AM. CM and pt aware.
--- NOTE | 2023-10-28 13:08 | P.PNIM_ITS ---
Subjective Subjective Date of Service: 10/28/23 Interval History: Feeling tired this morning did not sleep well last night, shortness of breath and cough is better, denies lightheadedness or dizziness, no fever, no chills, tolerating diet, stable oxygenation. Review of Systems All other system reviewed and negative Physical Exam 2 Vital Signs: Vital Signs: Last Vital Signs Temp 98 F 10/28/23 06:49 Pulse 70 10/28/23 06:49 Resp 17 10/28/23 06:49 BP 118/73 10/28/23 06:49 Pulse Ox 96 10/28/23 06:49 O2 Del Method Room Air 10/28/23 06:49 O2 Flow Rate 2 10/27/23 19:58 BMI result Body Mass Index 34.5 Const: Other: General resting comfortably in no acute distress. Anicteric sclera Neck supple no JVD. CVS regular rate rhythm, Respiratory lungs coarse BS , no respiratory distress, no wheeze, no rhonchi. Gastrointestinal abdomen soft, non tender, bowel sounds audible, no guarding , no rigidity. Extremities no edema. Neuro nonfocal , awake, alert oriented x3, speech clear. Skin no rash Psych appropriate affect Objective Data Active Medications Acetaminophen (Acetaminophen 325 Mg Tablet) 650 mg PO Q6H PRN PRN Reason: Pain, Mild (Pain Scale 1-3) Last Admin: 10/26/23 15:57 Dose: 650 mg Documented By: MIGUELINA Albuterol/Ipratropium (Albuterol/Iprat 2.5/0.5mg 3 Ml Ampul.Neb) 3 ml INHALE RQ4H WHILE AWAKE PRN PRN Reason: Shortness of Breath/Wheezing Last Admin: 10/26/23 06:13 Dose: 3 ml Documented By: BRENDA Amitriptyline HCl (Amitriptyline Hcl 25 Mg Tablet) 25 mg PO BEDTIME [facility] Last Admin: 10/27/23 20:34 Dose: 25 mg Documented By: CASTILM Amphetamine/Dextroamphetamine (Dextroamphetamine/Amphetamine Xr 10 Mg Cap.Er.24h) 30 mg PO DAILY@0800 [facility] Last Admin: 10/28/23 08:31 Dose: 30 mg Documented By: COTEMA Amphetamine/Dextroamphetamine (Amphetamine Mixed Salts 10 Mg Tablet) 30 mg PO DAILY@1400 [facility] Last Admin: 10/27/23 14:05 Dose: 30 mg Documented By: FLOYD Benzonatate (Benzonatate 100 Mg Capsule) 100 mg PO TID PRN PRN Reason: Cough Last Admin: 10/28/23 08:31 Dose: 100 mg Documented By: COTEMA Bupropion HCl (Bupropion Hcl Xl 150 Mg Tab.Er.24h) 150 mg PO DAILY [facility] Last Admin: 10/28/23 08:31 Dose: 150 mg Documented By: COTEMA Buspirone HCl (Buspirone Hcl 10 Mg Tablet) 30 mg PO TID [facility] Last Admin: 10/28/23 08:31 Dose: 30 mg Documented By: COTEMA Clonidine HCl (Clonidine Hcl 0.1 Mg Tablet) 0.1 mg PO Q4H PRN; Protocol PRN Reason: anxiety/insomnia Docusate Sodium (Docusate Sodium 100 Mg Capsule) 100 mg PO BID PRN PRN Reason: Constipation Enoxaparin Sodium (Enoxaparin Sodium 40 Mg/0.4 Ml Syringe) 40 mg SUBCUT Q24H [facility] Last Admin: 10/27/23 17:42 Dose: 40 mg Documented By: FLOYD Gabapentin (Gabapentin 400 Mg Capsule) 800 mg PO TID [facility] Last Admin: 10/28/23 08:31 Dose: 800 mg Documented By: WANDYEMA Guaifenesin (Guaifenesin 200 Mg/10 Ml 10 Ml Liquid) 10 ml PO Q6H [facility] Last Admin: 10/28/23 10:08 Dose: 10 ml Documented By: COTEMA Hydroxyzine HCl (Hydroxyzine Hcl 25 Mg Tablet) 25 mg PO Q6H PRN PRN Reason: Anxiety Last Admin: 10/27/23 20:35 Dose: 25 mg Documented By: CASTILM Ceftriaxone Sodium 1 gm/ (Sodium Chloride) 50 mls @ 100 mls/hr IV Q24H [facility] Last Infusion: 10/27/23 20:48 Dose: Infused Documented By: CASTILM Doxycycline Hyclate 100 mg/ (Sodium Chloride) 250 mls @ 166.67 mls/hr IV Q12H [facility] Last Infusion: 10/28/23 10:08 Dose: Infused Documented By: COTEMA Methadone HCl (Methadone Hcl 20 Mg/2 Ml Oral.Conc) 85 mg PO DAILY [facility] Last Admin: 10/28/23 08:31 Dose: 85 mg Documented By: SUZANNE Nicotine (Nicotine 21 Mg Patch.Td24) 21 mg TRANSDERMA DAILY [facility] Last Admin: 10/28/23 08:31 Dose: 21 mg Documented By: SUZANNE Nicotine Polacrilex (Nicotine Polacrilex 2 Mg Gum) 4 mg BUCCAL Q2H PRN PRN Reason: Nicotine Cravings Omeprazole (Omeprazole 20 Mg Capsule.) 20 mg PO BID@0630,1630 [facility] Last Admin: 10/28/23 05:40 Dose: 20 mg Documented By: TONI Ondansetron HCl (Ondansetron Hcl 4 Mg/2 Ml Vial) 4 mg IVPUSH Q8H PRN PRN Reason: Nausea and Vomiting Prazosin HCl (Prazosin Hcl 1 Mg Capsule) 2 mg PO BEDTIME [facility]; Protocol Last Admin: 10/27/23 20:34 Dose: 2 mg Documented By: TONI Quetiapine Fumarate (Quetiapine Fumarate 25 Mg Tablet) 25 mg PO BID PRN PRN Reason: anxiety Quetiapine Fumarate (Quetiapine Fumarate 300 Mg Tablet) 300 mg PO BEDTIME [facility] Last Admin: 10/27/23 20:34 Dose: 300 mg Documented By: TONI Senna (Sennosides 8.6 Mg Tablet) 17.2 mg PO BEDTIME PRN PRN Reason: Constipation Sodium Chloride (0.9 % Sodium Chloride Flush 3 Ml Syringe) 3 ml IVFLUSH QSHIFT [facility] Last Admin: 10/28/23 08:31 Dose: 3 ml Documented By: SUZANNE Triamcinolone Acetonide (Triamcinolone Acet 0.025 % Cream 15 Gm Tube) 1 appl TOPICAL DAILY [facility]; Protocol Last Admin: 10/28/23 08:52 Dose: Not Given Documented By: COTANNA Non-Admin Reason: Patient Refused Zolpidem Tartrate (Zolpidem Tartrate 5 Mg Tablet) 10 mg PO BEDTIME [facility] Last Admin: 10/27/23 20:34 Dose: 10 mg Documented By: TONI Labs 10/26/23 06:05 10/26/23 06:05 Microbiology Microbiology Results: Microbiology 10/25/23 08:54 Blood Culture - Preliminary Blood - Venous No growth after 48 hours. 10/25/23 08:30 Blood Culture - Preliminary Blood - Venous No growth after 48 hours. 10/26/23 16:27 Gram Stain - Final Sputum - Expectorated Sputum Culture - Final Assessment and Plan (1) Septic arthritis of right ankle: Status: Acute (2) Opioid use disorder, severe, dependence: Status: Acute Plan 37 year old male with history of IVDA, opioid dependence on methadone, adhd, mood disorder, hx septic emboli, asthma, hx endocarditis (strep bacteremia 06/2022) admitted for further management of acute hypoxemic respiratory failure due to multifocal pneumonia. #Acute hypoxemic respiratory failure due to multifocal pneumonia -shortness of breath and cough improving -CTA chest showed no PE, showed diffuse patchy/nodular ground-glass opacities throughout right lung with few scattered left lower lobe foci, new since CT chest 07/09/2022. -respiratory viral panel negative -on IV ceftriaxone 1g and IV doxycycline 100mg BID (initiated 10/25) -sputum culture pending ,ch.+ MRSA nasal swab -HIV nonreactive and hepatitis-C viral load pending -normal WBC, blood cultures negative -oxygenation stable DC oxygen recommend ambulation -continue duonebs prn #Sepsis- resolved ,due to above #Transaminitis -chronic mild elevation - hiv, nonreactive, hep c viral load pending. #Mild intermittent asthma -no acute exacerbation -nebs prn as above #Opioid dependence -continue methadone #Unspecified mood disorder -continue home meds #Chronic normocytic anemia -h/h baseline, above transfusion threshold # facial rash likely dermatitis improved continue low potency steroid cream DVt prophylaxis- lovenox Full code Pt requries inpt stay for management of acute hypoxemic respiratory failure due to multifocal pneumonia requiring IV abx and waiting for safe disposition. Quality Stroke Does the patient have a stroke diagnosis?: No VTE Prior VTE?: No VTE Risk Level:: Medical - moderate - high VTE Device Contraindication: Treatment Not Indicated VTE Drug Contraindication: N/A - Med Ordered
[2023-10-28 15:28] VITALS: BP 151/86; PULSE 68; RESP 18; TEMP 36.6; O2SAT 97
[2023-10-28 15:29] LABS: HCV Log PCR 7.15 Log IU/mL (NOT DETECTED)
[2023-10-28] MEDS: Amphetamine Mixed Salts 10 MG TABLET 30 MG PO (15:46)
[2023-10-28 16:20] VITALS: PULSE 72; RESP 18; O2SAT 98
[2023-10-28] MEDS: Albuterol/Iprat 2.5/0.5MG 3 ML AMPUL.NEB INHALE (16:20)
[2023-10-28] MEDS: Enoxaparin Sodium 40 MG/0.4 ML SYRINGE SUBCUT (17:22)
[2023-10-28 19:28] VITALS: BP 137/76; PULSE 84; RESP 18; TEMP 36.9; O2SAT 93
[2023-10-28] MEDS: cefTRIAXone sodium 1 GM in 0.9 % Sodium Chloride 50 ML IV (19:54)
[2023-10-28] MEDS: Nicotine Polacrilex 2 MG GUM 4 MG BUCCAL ×2 (20:02→23:36)
[2023-10-28] MEDS: Zolpidem Tartrate 5 MG TABLET 10 MG PO (20:30)
[2023-10-28] MEDS: Prazosin HCL 1 MG CAPSULE 2 MG PO (20:30)
[2023-10-28] MEDS: QUEtiapine Fumarate 300 MG TABLET PO (20:31)
[2023-10-28] MEDS: Amitriptyline HCl 25 MG TABLET PO (20:31)
[2023-10-28] MEDS: hydrOXYzine HCL 25 MG TABLET PO (23:36)
[2023-10-29 04:00] VITALS: BP 126/65; PULSE 71; RESP 16; TEMP 36.3; O2SAT 93
[2023-10-29] MEDS: Omeprazole 20 MG CAPSULE.DR PO (05:36)
[2023-10-29] MEDS: guaiFENesin 200 MG/10 ML 10 ML LIQUID PO ×2 (05:36→10:31)
[2023-10-29 06:56] VITALS: BP 127/66; PULSE 78; RESP 17; TEMP 36; O2SAT 96
[2023-10-29] MEDS: Doxycycline Hyclate 100 MG in 0.9 % Sodium Chloride 250 ML 166.67 MG IV (07:43)
[2023-10-29] MEDS: Nicotine 21 MG PATCH.TD24 TRANSDERMA (07:45)
[2023-10-29] MEDS: 0.9 % Sodium Chloride Flush 3 ML SYRINGE IVFLUSH (07:45)
[2023-10-29] MEDS: Nicotine Polacrilex 2 MG GUM 4 MG BUCCAL (07:46)
[2023-10-29] MEDS: methADONE HCl 20 MG/2 ML ORAL.CONC 85 MG PO (07:46)
[2023-10-29] MEDS: Gabapentin 400 MG CAPSULE 800 MG PO (07:47)
[2023-10-29] MEDS: Dextroamphetamine/Amphetamine XR 10 MG CAP.ER.24H 30 MG PO (07:47)
[2023-10-29] MEDS: buPROPion HCl XL 150 MG TAB.ER.24H PO (07:48)
[2023-10-29] MEDS: Benzonatate 100 MG CAPSULE PO (07:48)
[2023-10-29] MEDS: busPIRone HCl 10 MG TABLET 30 MG PO (07:48)
[2023-10-29] MEDS: Doxycycline Monohydrate 100 MG CAPSULE PO (09:13)
[2023-10-29] MEDS: cefuroxime axetiL 500 MG TABLET PO (09:13)
--- NOTE | 2023-10-29 10:19 | P.DS_ITS ---
DS: Providers Provider Date of Service: 10/29/23 Date of admission: 10/25/23 16:24 Primary care physician: Raquel Gao MD DS: Diagnosis Discharge Diagnosis (1) Septic arthritis of right ankle: Status: Acute (2) Opioid use disorder, severe, dependence: Status: Acute DS: Summary Hospital Course Hospital Course: History of presenting illness: Date of Service: 10/25/23 Attending physician on admission: Janey Christopher Chief Complaint: sob, cough 37 year old male with history of IVDA, opioid dependence on methadone, adhd, mood disorder, hx septic emboli, asthma, hx endocarditis (strep bacteremia 06/2022) presented to the ED from [facility] for evaluation of flu like symptoms. Reports has had sob, stabbing pleuritic chest pain, productive cough with yellow sputum production as well as lightheadedness for several days. Reports sick contacts at the house with flu and covid. Reports subjective fevers. No sore throat, congestion, abd pain, n/v/d, syncope, palpitations, or chest pressure. On arrival, febrile to 101, tachycardic to 121, tachypneic to 22 and hypoxic to 83% on RA, placed on 2L supplemental O2 maintaining oximetry 96%. No leukocytosis. Renal function and eletrolytes normal. Lactic acid 1.2. AST 38/ALT 55. Trop below detectable limits, BNP 82. PCT pending. CTA chest negative for PE but shows multifocal groundglass opacities. In the ED given duoneb, ceftriaxone, doxycycline, and tylenol. Hospital course: 37 year old male with history of IVDA, opioid dependence on methadone, adhd, mood disorder, hx septic emboli, asthma, hx endocarditis (strep bacteremia 06/2022) admitted for further management of acute hypoxemic respiratory failure due to multifocal pneumonia. #Acute hypoxemic respiratory failure due to multifocal pneumonia admitted to medical floor CTA chest showed no PE showed diffuse patchy/nodular ground-glass opacities throughout right lung with few scattered left lower lobe foci, new since CT chest 07/09/2022,respiratory viral panel negative, HIV nonreactive, treated with IV ceftriaxone 1g and IV doxycycline updraft treatment and and cough patient responded well to above treatment oxygenation has normalized, blood cultures x2 are negative WBC remains normal therefore being discharged home on by mouth antibiotics recommended to completely abstain from smoking take cough medication as needed. #Sepsis- resolved was due to pneumonia. #Transaminitis noted to have chronic mild elevation HIV is nonreactive, hepatitis viral load is pending needs to be followed by PCP #Mild intermittent asthma -no acute exacerbation noted continue as needed inhalers #Opioid dependence -continue methadone #Unspecified mood disorder -continue home meds #Chronic normocytic anemia -h/h baseline, above transfusion threshold # facial rash likely dermatitis resolved with steroid cream. Time Attestation Discharge coordination time: Greater than 30 minutes Quality: Safe Use of Opioids Does Pt have an Active Cancer Diagnosis on the Problem List?: No Quality: Stroke Does the patient have a stroke diagnosis?: No Physical Exam Vital Signs: Vital Signs: Last Vital Signs Temp 96.8 F 10/29/23 06:56 Pulse 78 10/29/23 06:56 Resp 17 10/29/23 06:56 BP 127/66 10/29/23 06:56 Pulse Ox 96 10/29/23 06:56 O2 Del Method Room Air 10/29/23 06:56 O2 Flow Rate 2 10/27/23 19:58 BMI result Body Mass Index 34.5 Const: Other: General resting comfortably in no acute distress. Anicteric sclera Neck supple no JVD. CVS regular rate rhythm, Respiratory lungs clear to auscultation , no respiratory distress, no wheeze, no rhonchi. Gastrointestinal abdomen soft, non tender, bowel sounds audible, no guarding , no rigidity. Extremities no edema. Neuro nonfocal , awake, alert oriented x3, speech clear. Skin no rash Facial rash resolved Psych appropriate affect DS: Data Data Completed and Pending Completed studies during hospitalization [Text1]: Procedures Detoxification Services for Substance Abuse Treatment (11/13/21) Drainage of Left Knee Joint, Percutaneous Approach (06/11/20) Drainage of Right Ankle Joint, Open Approach (07/10/22) Drainage of Right Ankle Joint, Percutaneous Approach (07/10/22) Excision of Right Ankle Joint, Open Approach (07/10/22) Insertion of Infusion Device into Superior Vena Cava, Percutaneous Approach (06/11/20) Irrigation of Joints using Irrigating Substance, Percutaneous Endoscopic Approach (06/11/20) Ultrasonography of Superior Vena Cava, Guidance (06/11/20) Labs on day of discharge: Laboratory Results - last 24 hr 10/25/23 16:53 Hep C Viral Load [id number] H Hep C Viral Load Log 7.15 H Preliminary micro results at discharge 10/25/23 08:54 Blood Culture - Preliminary Blood - Venous No growth after 48 hours. 10/25/23 08:30 Blood Culture - Preliminary Blood - Venous No growth after 48 hours. Discharge Plan Discharge Anticipated Discharge Date/Time: 10/29/23 10:10 Patient Disposition: Home, Self-Care Discharge Diagnosis: Acute hypoxic respiratory failure due to multifocal pneumonia Sepsis Transaminitis Opioid use disorder Referrals: Raquel Gao MD [Primary Care Provider] - 1 Week Discharge Medications: New nicotine (polacrilex) 2 mg Gum 4 mg buccal Q2H PRN (Reason: Nicotine Cravings) Qty: 100 0RF doxycycline monohydrate 100 mg Capsule 100 mg PO BID Qty: 6 0RF cefuroxime axetil 500 mg Tablet 500 mg PO BID Qty: 6 0RF dextromethorphan-guaifenesin [Robitussin Cough-Chest Benito DM] 5-100 mg/5 mL liquid 10 ml PO Q6H PRN (Reason: cough) Qty: 500 0RF Continued dextroamphetamine-amphetamine 30 mg tablet 1 tab PO DAILY@1400 docusate sodium 100 mg capsule 100 mg PO BID PRN (Reason: Constipation) omeprazole 20 mg capsule,delayed release(DR/EC) 20 mg PO BID zolpidem 10 mg tablet 10 mg PO BEDTIME albuterol sulfate [Ventolin HFA] 90 mcg/actuation HFA aerosol inhaler 2 puff inhalation Q4H PRN (Reason: Shortness Of Breath Or Wheezing) methadone [Methadose] 10 mg/mL concentrate 85 mg PO DAILY Rx Instructions: Partial Fill upon patient request. dextroamphetamine-amphetamine 30 mg capsule,extended release 24hr 30 mg PO DAILY@0800 Rx Instructions: Partial Fill upon patient request. bupropion HCl 150 mg Tablet Extended Release 24 Hr 150 mg PO DAILY 30 Days Qty: 30 0RF hydroxyzine HCl 25 mg Tablet 25 mg PO Q6H PRN (Reason: Anxiety) 30 Days Qty: 90 0RF quetiapine 25 mg tablet 25 mg PO BID PRN (Reason: anxiety) 30 Days Qty: 60 0RF gabapentin 800 mg tablet 800 mg PO TID 30 Days Qty: 90 0RF buspirone 30 mg tablet 30 mg PO TID 30 Days Qty: 90 0RF nicotine 21 mg/24 hr patch 24 hour 1 patch transdermal DAILY 28 Days Qty: 28 0RF prazosin 2 mg capsule 2 mg PO BEDTIME 30 Days Qty: 30 0RF amitriptyline 25 mg tablet 25 mg PO BEDTIME 30 Days Qty: 30 0RF quetiapine [Seroquel] 300 mg tablet 300 mg PO BEDTIME 30 Days Qty: 30 0RF clonidine HCl 0.1 mg tablet 0.1 mg PO Q4H PRN (Reason: anxiety/insomnia) 30 Days Qty: 90 0RF Discontinued nicotine (polacrilex) 4 mg gum 4 mg buccal Q2H PRN (Reason: Nicotine Cravings) Discharge Orders: Discharge Order (Routine); Ordered 10/29/23 Ordered By: Wilbert Fallon Diet: Advance to usual diet Activity on Discharge: As tolerated Stand Alone Forms: Patient Portal Discharge page Care Plan Goals: Take Ceftin and doxycycline 1 tablet twice daily for 3 more days Take cough syrup as needed Use albuterol MDI for shortness of breath and chest tightness Strongly recommend to abstain from smoking , on nicotine patch and Nicorette gum as needed Health Concerns: Continue all home medication Plan of Treatment: Follow-up with primary care physician Assessment: As above
--- NOTE | 2023-10-29 10:44 | MHC.CM.PN ---
Patient is discharged back to [facility]. Staff provides transport home.
== END 2023-10-29 10:45 | disposition home or self-care (01) | DRG 720 ==
LOC: HO.ED 15:49 → HO.EDOVER 16:32 → HO.S3 18:26
PROVIDERS: Physician Assistant Medical; Admitting Provider Physician Assistant; Emergency Provider Student in an Organized Health Care Education/Training Program; PCP Family Medicine; Visit Provider Hospitalist
DX: A41.9 Sepsis, unspecified organism (principal); J96.01 Acute respiratory failure with hypoxia; J18.9 Pneumonia, unspecified organism; F11.20 Opioid dependence, uncomplicated; R04.2 Hemoptysis; J45.20 Mild intermittent asthma, uncomplicated; L30.9 Dermatitis, unspecified; F39 Unspecified mood [affective] disorder; F90.9 Attention-deficit hyperactivity disorder, unspecified type; F17.210 Nicotine dependence, cigarettes, uncomplicated; Z71.6 Tobacco abuse counseling; D64.9 Anemia, unspecified; Z20.822 Contact with and (suspected) exposure to COVID-19; Z79.899 Other long term (current) drug therapy
CPT/HCPCS: 36415; 71045; 71275; 80048; 80076; 80307; 81003; 83605; 83690; 83880; 84145; 84484; 85025; 87040; 87070; 87205; 87389; 87502; 87522; 87633; 87635; 87640; 87641; 93005; 94640; 99285; J0696; J1650; Q9967

== ENCOUNTER → 2023-10-25 08:05 | Outpatient (BNV) | payer MEDICAID, SELFPAY | PROVIDERS: Admitting Provider Physician Assistant; Emergency Provider Student in an Organized Health Care Education/Training Program; PCP Family Medicine; Visit Provider Internal Medicine Cardiovascular Disease | DX: R94.31 Abnormal electrocardiogram [ECG] [EKG] (principal) | CPT/HCPCS: 93010 ==

== ENCOUNTER → 2023-10-25 16:24 | Outpatient (BNV) | payer MEDICAID, SELFPAY | PROVIDERS: Admitting Provider Physician Assistant; Emergency Provider Student in an Organized Health Care Education/Training Program; PCP Family Medicine; Visit Provider Physician Assistant | DX: J96.01 Acute respiratory failure with hypoxia (principal); J18.9 Pneumonia, unspecified organism; M00.9 Pyogenic arthritis, unspecified; F11.20 Opioid dependence, uncomplicated | CPT/HCPCS: 99223; 99233; 99239 ==

== ENCOUNTER 2024-10-09 15:01 | Inpatient (IN) | payer MEDICAID, SELFPAY ==
[2024-10-09] VITALS (8 sets, daily range): BP systolic 120–134; BP diastolic 72–87; PULSE 82–110; RESP 14–18; TEMP 36.6–37.2; O2SAT 92–98; BMI 32.9
--- NOTE | ~2024-10-09 | XR_ITS ---
CLINICAL HISTORY: cough 1 view chest x-ray Comparison: CT/REG/SR - CT ANGIO CHEST PE PROTOCOL - 10/25/23 12:11 EST CR/SR - XR CHEST 1V - 10/25/23 08:36 EST Findings: Lungs are well inflated. Cardiac silhouette is within normal limits. There areas of subtle interstitial prominence within the perihilar and basilar regions bilaterally. No dense area of consolidation. No pleural effusion. Dysmorphic appearance of the left 1st rib as before. IMPRESSION: Subtle areas of interstitial prominence can be seen with bronchitis/bronchiolitis or mild pneumonitis. This document has been electronically signed by: Luc Anderson MD on 10/09/2024 16:13:23
--- NOTE | ~2024-10-09 | CT_ITS ---
CLINICAL HISTORY: tachycardia hx of DVT, dyspnea CT angiography chest with contrast. 3D Postprocessing. Comparison: CT - CT ANGIO CHEST PE PROTOCOL - 10/09/24 20:[address]/REG/SR - CT ANGIO CHEST PE PROTOCOL - 10/25/23 12:11 EST Findings: The heart size is normal. RV/LV ratio is normal. Unremarkable thoracic aorta and great vessels. No aneurysm. No pulmonary artery filling defects. The visualized thyroid and mediastinum are unremarkable. No consolidation or effusion. The upper abdomen is unremarkable. The bones are intact. IMPRESSION: 1. No pulmonary embolus. This document has been electronically signed by: Juan Ramirez MD on 10/09/2024 20:40:30
--- NOTE | 2024-10-09 15:11 | ECG_ITS ---
Test Reason : OVERDOSED/SI Blood Pressure : */* mmHG Vent. Rate : 95 BPM Atrial Rate : 95 BPM P-R Int : 150 ms QRS Dur : 86 ms QT Int : 458 ms P-R-T Axes : 106 -8 0 degrees QTcB Int : 575 ms Normal sinus rhythm Minimal voltage criteria for LVH, may be normal variant ( R in aVL ) Borderline ECG When compared with ECG of 25-Oct-2023 08:09, Nonspecific T wave abnormality no longer evident in Anterolateral leads Referred By: Jeanine Osborn Electronically Signed By: Kashmir Dennis
--- NOTE | 2024-10-09 15:20 | PC.NURSE ---
Pt. changed over and belongings secured per security officers. 1:1 at bedside at this time.
[2024-10-09] MEDS: Albuterol/Iprat 2.5/0.5MG 3 ML AMPUL.NEB INHALE (15:30)
[2024-10-09 15:39] LABS: MANUAL DIFF FLAG NO
[2024-10-09 15:43] LABS: Basophils Absolute Auto 0.1 X10*3/uL (0.0-0.2); Basophils Percent Auto 0.4 % (0-2); Hematocrit 44.4 % (42.0-52.0); Hemoglobin 14.8 g/dl (14.0-18.0); Imm Gran Abs Auto 0.04 X10*3/uL (0.00-0.03); Imm Gran Pct Auto 0.3 % (0.0-0.4); Lymphocytes Absolute Auto 1.1 X10*3/uL (1.2-4.9); Lymphocytes Percent Auto 9.1 % (20-40); Mean Corpuscular HGB Conc 33.3 g/dl (31.0-36.0); Mean Corpuscular Hemoglobin 28.2 pg (27.0-33.0); Mean Corpuscular Volume 84.7 fL (80.0-98.0); Mean Platelet Volume 9.2 fL (9.4-12.4); Monocytes Absolute Auto 0.8 X10*3/uL (0.1-1.2); Monocytes Percent Auto 7.2 % (2-11); Neutrophils Absolute Auto 9.6 x10*3/uL (2.0-8.3); Platelet Count 252 X10*3/uL (160-400); Red Blood Count 5.24 X10*6/uL (4.60-5.80); Red Cell Distribution Width 13.2 % (11.0-16.0); White Blood Count 11.6 X10*3/uL (4.8-10.8)
[2024-10-09 15:53] LABS: Ethanol 10 mg/dL
[2024-10-09 15:58] LABS: Alanine Aminotransferase 113 U/L (0-40); Albumin Level 4.4 g/dL (3.5-5.0); Anion Gap 17 (12-20); Aspartate Amino Transferase 484 U/L (5-37); Bilirubin Direct 0.2 mg/dL (0.0-0.5); Bilirubin Total 0.6 mg/dL (0.0-1.0); Blood Urea Nitrogen 22 mg/dL (9-16); Calcium 9.9 mg/dL (8.4-10.2); Carbon Dioxide 21 mmol/L (22-29); Chloride 104 mmol/L (96-108); Creatinine Clr Calc Pharmacy 141.6; Estimated Glomerular Filt Rate > 60; Glucose Random 89 mg/dL (60-115); Lipase 5 U/L (8-78); Magnesium 2.2 mg/dL (1.6-2.6); Potassium 3.5 mmol/L (3.3-5.1); Sodium 138 mmol/L (135-145)
[2024-10-09 16:01] LABS: B Type Natriuretic Peptide 187 pg/mL (<100)
[2024-10-09 16:03] LABS: Alkaline Phosphatase 97 U/L (39-117)
--- NOTE | 2024-10-09 16:03 | ED_ITS ---
HPI - Psych General Chief Complaint: Psychiatric Symptoms Stated Complaint: SI Time Seen by Provider: 10/09/24 15:07 Source: patient, EMS and old records reviewed Mode of arrival: EMS Limitations: no limitations History of Present Illness ED Provider: ELVA HPI Narrative: 38 yo male with PMH of IVDA, opiate abuse on methadone was not dosed today, mood disorder, septic emboli, asthma, endocarditis strep bacteremia 06/2002, pneumonia, elevated LFTs, who just was let out of [place] skilled nursing yesterday with a program he was suppposed to go in fell through. He became upset and hopeless. He used yesterday. Today he woke up and just wanted it to end and he injected 10 bags of heroin. He was in an alley when this happened. He woke up with a unknown female who told him he received 4 doses of intranasal narcan. He states he still has SI. He denies any chest pain and states his asthma is acting up. He reports SI MD complaint: suicidal ideation, feels depressed and substance abuse Onset (ago): hour(s) (few) Duration: constant History of same: Yes Relieving factors: none Exacerbating factors: drug use Context: recent drug abuse Associated psychiatric symptoms: depression and suicidal ideation Associated symptoms: shortness of breath Treatments prior to arrival: other If self harm: admits thoughts of self harm, has plan, has acted on plan and intentional overdose Related Data Home Medications ?Medication ?Instructions ?Recorded ?Confirmed albuterol sulfate 90 mcg/actuation 2 puff inhalation Q4H PRN 10/25/23 10/25/23 aerosol inhaler (Ventolin HFA) Shortness Of Breath Or Wheezing dextroamphetamine-amphetamine 30 1 tab PO DAILY@1400 10/25/23 10/25/23 mg tablet dextroamphetamine-amphetamine ER 30 mg PO DAILY@0800 10/25/23 10/25/23 30 mg 24hr capsule,extend release docusate sodium 100 mg capsule 100 mg PO BID PRN Constipation 10/25/23 10/25/23 methadone 10 mg/mL oral 85 mg PO DAILY 10/25/23 10/26/23 concentrate (Methadose) omeprazole 20 mg capsule,delayed 20 mg PO BID heartburn 10/25/23 10/25/23 release zolpidem 10 mg tablet 10 mg PO BEDTIME 10/25/23 10/25/23 Previous Rx's ?Medication ?Instructions ?Recorded amitriptyline 25 mg tablet 25 mg PO BEDTIME 30 days #30 tabs 09/09/23 bupropion HCl 150 mg 24 hr tablet, 150 mg PO DAILY 30 days #30 tabs 09/09/23 extended release buspirone 30 mg tablet 30 mg PO TID 30 days #90 tabs 09/09/23 gabapentin 800 mg tablet 800 mg PO TID 30 days #90 tabs 09/09/23 hydroxyzine HCl 25 mg tablet 25 mg PO Q6H PRN Anxiety 30 days 09/09/23 #90 tabs nicotine 21 mg/24 hr daily 1 patch transdermal DAILY 28 days 09/09/23 transdermal patch #28 ea prazosin 2 mg capsule 2 mg PO BEDTIME 30 days #30 caps 09/09/23 quetiapine 25 mg tablet 25 mg PO BID PRN anxiety 30 days 09/09/23 #60 tabs clonidine HCl 0.1 mg tablet 0.1 mg PO Q4H PRN anxiety/insomnia 09/10/23 30 days #90 tabs quetiapine 300 mg tablet (Seroquel) 300 mg PO BEDTIME 30 days #30 tabs 09/10/23 cefuroxime axetil 500 mg tablet 500 mg PO BID #6 tabs 10/29/23 dextromethorphan-guaifenesin 5 10 ml PO Q6H PRN cough #500 mL 10/29/23 mg-100 mg/5 mL oral liquid (Robitussin Cough-Chest Congestion DM) doxycycline monohydrate 100 mg 100 mg PO BID #6 caps 10/29/23 capsule nicotine (polacrilex) 2 mg gum 4 mg buccal Q2H PRN Nicotine 10/29/23 Cravings #100 ea Allergies Allergy/AdvReac Type Severity Reaction Status Date / Time haloperidol [From HALDOL] AdvReac Intermediate LOCK JAW Verified 10/09/24 15:16 olanzapine [From ZYPREXA] AdvReac Unknown PT REPORTS Verified 10/09/24 15:16 FEELS LIKE I AM ON AN ACID TRIP Review of Systems 2 Review of Systems: Constitutional : No Fever, No Chills ENT/Mouth : No Hoarseness, No sore throat, No Rhinorrhea Eyes: No Redness, No Discharge, No Vision Changes Cardiovascular : No Chest Pain, positive SOB, positive Dyspnea on Exertion, No Edema Respiratory : positive Cough, No Sputum, positive Wheezing, Gastrointestinal : No Nausea, No Vomiting, No Diarrhea, No abdominal Pain Genitourinary : No Dysuria, No Hematuria Musculoskeletal : No joint pain, No Myalgias Skin : No rash Neuro : No Weakness, No Numbness, No Headache Psych : pos anxiety, depression, pos SI Heme/Lymph: No Bruising, No Bleeding Endocrine : No Polyuria, No Polydipsia All other systems reviewed and are negative PMFSH Past Medical History Attestation statement: The following information was validated with the patient. Source: old records reviewed Medical History Septic arthritis of right ankle Opioid use disorder, severe, dependence Delusional disorder ADHD (attention deficit hyperactivity disorder) MDD (major depressive disorder), recurrent episode, moderate Cellulitis Hepatitis C Opiate abuse, continuous Anterior T wave inversion Pulmonary emboli Multiple abrasions Head injury Suicide attempt Abrasion of face Heroin overdose Opiate abuse, continuous Mood disorder ADHD Major depression with psychotic features Endocarditis DVT (deep venous thrombosis) Severe sepsis Anemia Eye contusion Left upper extremity deep vein thrombosis Hepatitis C IV drug abuse Surgical History Hx of eye surgery S/P left knee arthroscopy History of left knee surgery Social History Social History Household Members: Other Household Members Other:: aunt Housing: Other Housing Other:: hotel everyday Do you presently have visiting nurse or other home services: No (in program) Unable to assess alcohol history related to: Unknown Alcohol intake: current Alcohol intake frequency: a few times a week Alcohol type: hard liquor Comment: 1:1 sitter Patient Tobacco Use Status: Never used Tobacco Tobacco use type: Cigarette Cigarette Packs Per Day: 1.5 Cigarettes Per Day: 30 Years Smoked: 23 Smoked in Last 30 Days: No e-Cigarette/Vaping Use: Former Use Second Hand Smoke Exposure: No Use of substances other than those prescribed or required for medical reasons: Yes Substance Use Type: Crack/Cocaine and Heroin Substance Use Frequency: Daily Advance Directives: No Advance Directives Information Provided: No Do you have a plan to hurt others: No Plan service: No Current occupational status: unemployed Sexual orientation: Straight/Heterosexual Physical Exam 2 Vital Signs: Vital Signs: Last Vital Signs Temp 97.9 F 10/09/24 17:45 Pulse 82 10/09/24 17:45 Resp 16 10/09/24 17:45 BP 125/80 10/09/24 17:45 Pulse Ox 95 10/09/24 17:45 O2 Del Method Room Air 10/09/24 17:45 BMI result Body Mass Index 32.9 Appearance: Alert. Oriented X3. No acute distress. Eyes: Pupils equal, round and reactive to light. ENT: Pharynx normal. Neck: Normal inspection. Neck supple. CVS: Normal heart rate and rhythm. Pulses normal. Respiratory: No respiratory distress. Breath sounds diminished. Abdomen: Soft and nontender. Skin: Skin warm and dry. Normal skin color. Normal skin turgor. Extremities: No lower extremity edema. No calf ttp Neuro: Oriented X 3. No motor deficit. No sensory deficit. CN2-12 intact Course Course Course Narrative: started on 2L IVF and 200cc/hr CTA pending signed out to [facility] will need admission Reevaluation(s) Reevaluation #1: no signs of compartment syndrome Reevaluation #2: signed out to Dr. Qureshi pending CT scan and admission Medications Administered Generic Name Dose Route Start Last Admin Trade Name Freq PRN Reason Stop Dose Admin Sodium Chloride 1,000 mls @ 999 mls/hr 10/09/24 18:02 10/09/24 18:21 Ns IV 10/09/24 19:02 999 mls/hr .Q1H1M ONE Administration Sodium Chloride 1,000 mls @ 999 mls/hr 10/09/24 18:02 10/09/24 18:21 Ns IV 10/09/24 19:02 999 mls/hr .Q1H1M ONE Administration Discontinued Medications Generic Name Dose Route Start Last Admin Trade Name Freq PRN Reason Stop Dose Admin Albuterol/Ipratropium 3 ml 10/09/24 15:19 10/09/24 15:30 Albuterol/Iprat 2.5/0.5mg 3 Ml Ampul.Neb INHALE 10/09/24 15:20 3 ml ONCE ONE Administration Ceftriaxone Sodium 2 gm 10/09/24 16:18 10/09/24 16:47 Ceftriaxone Sodium 2 Gm Vial IVPUSH 10/09/24 16:19 2 gm ONCE ONE Administration Magnesium Sulfate 2 gm in 50 mls @ 25 mls/hr 10/09/24 16:25 10/09/24 16:47 Magnesium Sulfate/H2o IV 10/09/24 18:24 25 mls/hr ONCE ONE Administration Medical Decision Making Medical Decision Making [facility] Narrative: 38 yo male with PMH of IVDA, opiate abuse on methadone was not dosed today, mood disorder, septic emboli, asthma, endocarditis strep bacteremia 06/2002, pneumonia, elevated LFTs now here post overdose and c/o dyspnea from asthma no CP/SOB prior to his overdose. At this time basic labs, EKG, troponin, BNP, CTA for PE given history and elevated troponin. Obtain labs and cultures - trend troponin given it is likely demand ischemia. Pending workup may need admission. Differential Diagnosis Differential Diagnoses: The differential diagnosis associated with the presentation includes VTE, overdose, trop leak due to hypoxia, IVDA Admission/Observation Consideration of admission/observation: Escalation of care including admission/observation considered given rhabdo needs admission Consult Healthcare Provider Management of the patient was discussed with: Strap Maker Dr. Dennis aware states this is typical of overdose no further meds needed Lab Data [facility] Lab Attestation statement: I reviewed the patient's lab results. 10/09/24 15:34 10/09/24 15:34 Labs: Lab Results 10/09/24 10/09/24 10/09/24 Range/Units 15:34 16:27 17:16 WBC 11.6 H (4.8-10.8) X10*3/uL RBC 5.24 D (4.60-5.80) X10*6/uL Hgb 14.8 D (14.0-18.0) g/dl Hct 44.4 D (42.0-52.0) % MCV 84.7 (80.0-98.0) fL MCH 28.2 (27.0-33.0) pg MCHC 33.3 (31.0-36.0) g/dl RDW 13.2 (11.0-16.0) % Plt Count 252 (160-400) X10*3/uL MPV 9.2 L (9.4-12.4) fL Immature Gran % (Auto) 0.3 (0.0-0.4) % Neut % (Auto) 83.0 H (45-73) % Lymph % (Auto) 9.1 L (20-40) % [place] % (Auto) 7.2 (2-11) % Eos % (Auto) 0.0 (0-4) % Baso % (Auto) 0.4 (0-2) % Lymph # (Auto) 1.1 L (1.2-4.9) X10*3/uL [place] # (Auto) 0.8 (0.1-1.2) X10*3/uL Eos # (Auto) 0.0 (0.0-0.4) X10*3/uL Baso # (Auto) 0.1 (0.0-0.2) X10*3/uL Abs Immat Gran (auto) 0.04 H (0.00-0.03) X10*3/uL Absolute Neuts (auto) 9.6 H (2.0-8.3) x10*3/uL Absolute Nucleated RBC 0.000 (0.0-0.012) X10*3/uL Nucleated RBC % (auto) 0.0 (0.0-0.2) /100WBC Sodium 138 (135-145) mmol/L Potassium 3.5 (3.3-5.1) mmol/L Chloride 104 (96-108) mmol/L Carbon Dioxide 21 L (22-29) mmol/L Anion Gap 17 (12-20) BUN 22 H (9-16) mg/dL Creatinine 0.77 (0.5-1.4) mg/dL Estim Creat Clear Calc 141.6 Estimated GFR > 60 Random Glucose 89 (60-115) mg/dL Lactic Acid 1.4 (0.5-2.0) mmol/L Calcium 9.9 D (8.4-10.2) mg/dL Magnesium 2.2 (1.6-2.6) mg/dL Total Bilirubin 0.6 (0.0-1.0) mg/dL Direct Bilirubin 0.2 (0.0-0.5) mg/dL AST 484 H (5-37) U/L ALT 113 H (0-40) U/L Alkaline Phosphatase 97 (39-117) U/L Total Creatine Kinase 95906 H (38-174) U/L Troponin I High Sens 135.1 H* D 132.7 H* (<3.5-35.0) ng/L B-Natriuretic Peptide 187 H (<100) pg/mL Total Protein 9.0 H (6.5-8.0) g/dL Albumin 4.4 (3.5-5.0) g/dL Lipase 5 L (8-78) U/L Salicylates < 5.0 L (15-30) mg/dL Acetaminophen < 3 (<30) mcg/mL Ethyl Alcohol 10 mg/dL Influenza Type A (PCR) NEGATIVE (Negative) Influenza Type B (PCR) NEGATIVE (Negative) RSV RNA Qual (PCR) NEGATIVE (Negative) SARS-CoV-2 RNA (RT-PCR) NEGATIVE (Negative) Independent Interpretation I performed an independent interpretation of an: EKG, Plain X-Ray (no pneumonia) and CT Scan Interpretation: Rate: 95 Rhythm: NSR [place]: left, LVH Normal P waves. Normal CARMEN. Normal QRS complex. ST T wave : no AG, nonspecific ST T wave changes qTC: 575 prior studies: no acute ischemia The study has been interpreted contemporaneously by me. . Radiology Impression Discussion of test interpretation with radiology: I have reviewed the radiologist's reading. Independent Historian Clinical information obtained from an independent historian. History obtained from or confirmed by: EMS External Record Review External record reviewed: Inpatient record and Outpatient record Procedures Procedure Narrative Procedure Narrative: bedside ECHO done no effusion noted, no obvious GWMA noted apical subxiphoid parasternal views Critical Care Time Critical Care Time Critical Care Time: Yes Total Critical Care Time: 60 Attestation: repeat labs, IVF x 2L, review of records, repeat assessments I attest to this time spent taking care of the patient Discharge Plan Discharge Clinical Impression: Elevated liver function tests, Elevated troponin Intentional overdose Qualifiers: Encounter type: initial encounter Qualified Code(s): T50.902A - Poisoning by unspecified drugs, medicaments and biological substances, intentional self-harm, initial encounter Rhabdomyolysis Qualifiers: Rhabdomyolysis type: non-traumatic Qualified Code(s): M62.82 - Rhabdomyolysis Patient Disposition: Admitted As Inpatient Interventions: [place]-Suicide Risk Severity Scale Last Done: 10/09/24 15:20 Print Language: Serbian
[2024-10-09 16:06] LABS: Troponin-I High Sensitivity 135.1 ng/L (<3.5-35.0)
[2024-10-09 16:22] LABS: Influenza A PCR NEGATIVE (Negative); Influenza B PCR NEGATIVE (Negative); Resp Syncy Virus RNA Qual PCR NEGATIVE (Negative); SARS COV2 PCR INHOUSE NEGATIVE (Negative)
[2024-10-09] MEDS: cefTRIAXone sodium 2 GM VIAL IVPUSH (16:47)
[2024-10-09] MEDS: Magnesium Sulfate/H2O 2 GM/50 ML PIGGYBACK IV (16:47)
[2024-10-09 16:53] LABS: Lactic Acid 1.4 mmol/L (0.5-2.0)
[2024-10-09 17:30] LABS: Acetaminophen LAB < 3 mcg/mL (<30); Salicylate < 5.0 mg/dL (15-30)
[2024-10-09 17:48] LABS: Troponin-I High Sensitivity 132.7 ng/L (<3.5-35.0)
[2024-10-09] MEDS: 0.9 % Sodium Chloride 1,000 ML 999 ML IV ×2 (18:21)
[2024-10-09] MEDS: 0.9 % Sodium Chloride 1,000 ML 200 ML IVCONT (19:42)
--- NOTE | 2024-10-09 19:44 | PC.NURSE ---
this rn assumed care of pt, pt a&ox4, respirations even and unlabored. pt denies pain at this time, iv fluids administering at this time, vss. 1:1 sitter at bedside.
[2024-10-09] MEDS: iohexoL 350 MG/ML 100 ML INFUS..BTL 65 ML IV (20:15)
[2024-10-09 20:37] LABS: Alanine Aminotransferase 83 U/L (0-40); Albumin Level 3.4 g/dL (3.5-5.0); Alkaline Phosphatase 73 U/L (39-117); Aspartate Amino Transferase 341 U/L (5-37); Bilirubin Direct 0.1 mg/dL (0.0-0.5); Bilirubin Total 0.3 mg/dL (0.0-1.0); Total Protein 6.8 g/dL (6.5-8.0)
--- NOTE | 2024-10-09 21:20 | P.HPHOSP_ITS ---
History of Present Illness Date of Service: 10/09/24 Chief Complaint: Overdose This has a 38-year-old male with pertinent history of polysubstance IVDU, history of endocarditis and septic pulmonary embolism, history of septic arthritis of the knee, mood disorder, tobacco use disorder, asthma not on home oxygen who was brought to the emergency department after intentional opiate overdose. Patient was just out of [place] skilled nursing yesterday. States he was supposed to be with the program but that did not go through. He felt depressed, upset and hopeless. Patient states he wanted to end his life on the day of presentation and injected 10 bags of heroin. He woke up in an alley when an unknown female told him that he was given 4 doses of intranasal Narcan. Continues to have suicidal ideation as he feels depressed. No fever, chills, chest pain, palpitations, shortness of breath, abdominal pain, changes in urinary or bowel habits In the emergency department, serum creatinine kinase and troponin found to be elevated. CTA negative for PE Review of Systems 2 Constitutional: Constitutional: Reports fatigue, Reports malaise and Reports weakness Cardiovascular: Cardiovascular: Reports no additional cardiovascular complaints Respiratory: Respiratory: Reports no additional respiratory complaints Gastrointestinal: Gastrointestinal: Reports no additional gastrointestinal complaints Genitourinary: Genitourinary: Reports no additional male genitourinary complaints Neurologic: Reports weakness Psychiatric: Psychiatric: Reports depression and Reports suicidal ideation Endocrine: Endocrine: Reports fatigue PMFSH Medical History Septic arthritis of right ankle Opioid use disorder, severe, dependence Delusional disorder ADHD (attention deficit hyperactivity disorder) MDD (major depressive disorder), recurrent episode, moderate Cellulitis Hepatitis C Opiate abuse, continuous Anterior T wave inversion Pulmonary emboli Multiple abrasions Head injury Suicide attempt Abrasion of face Heroin overdose Opiate abuse, continuous Mood disorder ADHD Major depression with psychotic features Endocarditis DVT (deep venous thrombosis) Severe sepsis Anemia Eye contusion Left upper extremity deep vein thrombosis Hepatitis C IV drug abuse Surgical History Hx of eye surgery S/P left knee arthroscopy History of left knee surgery Social History Household Members: Other Household Members Other:: aunt Housing: Other Housing Other:: hotel everyday Do you presently have visiting nurse or other home services: No (in program) Unable to assess alcohol history related to: Unknown Alcohol intake: current Alcohol intake frequency: a few times a week Alcohol type: hard liquor Comment: 1:1 sitter Patient Tobacco Use Status: Never used Tobacco Tobacco use type: Cigarette Cigarette Packs Per Day: 1.5 Cigarettes Per Day: 30 Years Smoked: 23 Smoked in Last 30 Days: No e-Cigarette/Vaping Use: Former Use Second Hand Smoke Exposure: No Use of substances other than those prescribed or required for medical reasons: Yes Substance Use Type: Crack/Cocaine and Heroin Substance Use Frequency: Daily Advance Directives: No Advance Directives Information Provided: No Do you have a plan to hurt others: No Plan service: No Current occupational status: unemployed Sexual orientation: Straight/Heterosexual Meds Allergies Allergy/AdvReac Type Severity Reaction Status Date / Time haloperidol [From HALDOL] AdvReac Intermediate LOCK JAW Verified 10/09/24 15:16 olanzapine [From ZYPREXA] AdvReac Unknown PT REPORTS Verified 10/09/24 15:16 FEELS LIKE I AM ON AN ACID TRIP Active Medications: Current Medications Sodium Chloride (Ns) 1,000 mls @ 200 mls/hr IVCONT .Q5H ERNA Stop: 10/09/24 23:14 Last Admin: 10/09/24 19:42 Dose: 200 mls/hr Potassium Chloride (Potassium Chloride/H20) 10 meq in 100 mls @ 100 mls/hr IV Q1H ERNA Stop: 10/10/24 01:29 Home Medications ?Medication ?Instructions ?Recorded ?Confirmed ?Last Taken ?Type albuterol sulfate 90 mcg/actuation 2 puff inhalation Q4H PRN 10/25/23 10/25/23 Unknown History aerosol inhaler (Ventolin HFA) Shortness Of Breath Or Wheezing dextroamphetamine-amphetamine 30 1 tab PO DAILY@1400 10/25/23 10/25/23 Unknown History mg tablet dextroamphetamine-amphetamine ER 30 mg PO DAILY@0800 10/25/23 10/25/23 Unknown History 30 mg 24hr capsule,extend release docusate sodium 100 mg capsule 100 mg PO BID PRN Constipation 10/25/23 10/25/23 Unknown History methadone 10 mg/mL oral 85 mg PO DAILY 10/25/23 10/26/23 10/24/23 History concentrate (Methadose) omeprazole 20 mg capsule,delayed 20 mg PO BID heartburn 10/25/23 10/25/23 Unknown History release zolpidem 10 mg tablet 10 mg PO BEDTIME 10/25/23 10/25/23 Unknown History Physical Exam 2 Vital Signs and Narrative: Vital Signs: Last Vital Signs Temp 98.5 F 10/09/24 19:42 Pulse 82 10/09/24 19:42 Resp 17 10/09/24 19:42 BP 134/72 10/09/24 19:42 Pulse Ox 95 10/09/24 19:42 O2 Del Method Room Air 10/09/24 19:42 BMI result Body Mass Index 32.9 Middle-aged male lying in bed in no distress Neck supple, no JVD Regular rate and rhythm, S1-S2 heard Regular breath sounds bilaterally, no wheezing or crackles appreciated Abdomen soft nontender, no guarding, no rigidity Patient is awake, alert and oriented to self, place, time and person ; no focal motor deficit Psych: Normal mood No pedal edema Results Labs 10/09/24 15:34 10/09/24 15:34 Labs: Laboratory Results - last 24 hr 10/09/24 10/09/24 10/09/24 15:34 16:27 17:16 MCV 84.7 MCH 28.2 MCHC 33.3 RDW 13.2 Plt Count 252 MPV 9.2 L Immature Gran % (Auto) 0.3 Neut % (Auto) 83.0 H Lymph % (Auto) 9.1 L [place] % (Auto) 7.2 Eos % (Auto) 0.0 Baso % (Auto) 0.4 Lymph # (Auto) 1.1 L [place] # (Auto) 0.8 Eos # (Auto) 0.0 Baso # (Auto) 0.1 Abs Immat Gran (auto) 0.04 H Absolute Neuts (auto) 9.6 H Absolute Nucleated RBC 0.000 Nucleated RBC % (auto) 0.0 Anion Gap 17 Estim Creat Clear Calc 141.6 Estimated GFR > 60 Random Glucose 89 Lactic Acid 1.4 Calcium 9.9 D Magnesium 2.2 Total Bilirubin 0.6 Direct Bilirubin 0.2 AST 484 H ALT 113 H Alkaline Phosphatase 97 Total Creatine Kinase 97698 H Troponin I High Sens 135.1 H* D 132.7 H* B-Natriuretic Peptide 187 H Total Protein 9.0 H Albumin 4.4 Lipase 5 L Salicylates < 5.0 L Acetaminophen < 3 Ethyl Alcohol 10 Influenza Type A (PCR) NEGATIVE Influenza Type B (PCR) NEGATIVE RSV RNA Qual (PCR) NEGATIVE SARS-CoV-2 RNA (RT-PCR) NEGATIVE 10/09/24 20:18 MCV MCH MCHC RDW Plt Count MPV Immature Gran % (Auto) Neut % (Auto) Lymph % (Auto) [place] % (Auto) Eos % (Auto) Baso % (Auto) Lymph # (Auto) [place] # (Auto) Eos # (Auto) Baso # (Auto) Abs Immat Gran (auto) Absolute Neuts (auto) Absolute Nucleated RBC Nucleated RBC % (auto) Anion Gap Estim Creat Clear Calc Estimated GFR Random Glucose Lactic Acid Calcium Magnesium Total Bilirubin 0.3 Direct Bilirubin 0.1 AST 341 H ALT 83 H Alkaline Phosphatase 73 Total Creatine Kinase Troponin I High Sens B-Natriuretic Peptide Total Protein 6.8 Albumin 3.4 L Lipase Salicylates Acetaminophen Ethyl Alcohol Influenza Type A (PCR) Influenza Type B (PCR) RSV RNA Qual (PCR) SARS-CoV-2 RNA (RT-PCR) Assessment and Plan (1) Rhabdomyolysis: Qualifiers: Rhabdomyolysis type: non-traumatic Qualified Code(s): M62.82 - Rhabdomyolysis Status: Acute (2) Elevated troponin: Status: Acute (3) Intentional overdose: Qualifiers: Encounter type: initial encounter Qualified Code(s): T50.902A - Poisoning by unspecified drugs, medicaments and biological substances, intentional self-harm, initial encounter Status: Acute (4) Suicide attempt: Status: Acute (5) Acute encephalopathy: Status: Acute Plan This has a 38-year-old male with pertinent history of polysubstance IVDU, history of endocarditis and septic pulmonary embolism, history of septic arthritis of the knee, mood disorder, tobacco use disorder, asthma not on home oxygen who was brought to the emergency department after intentional opiate overdose. #. Acute toxic encephalopathy due to intentional overdose of heroin as suicidal attempt: Resolved with intranasal Narcan. Consulted sitter. CARE team once medically clear #. Acute rhabdomyolysis, nontraumatic nonexertional: In the setting of toxins. Will admit patient and continue IV crystalloid resuscitation. Monitor CPK and kidney function closely #. Elevated troponin: Given 1 dose of therapeutic Lovenox in the ER. Trend troponin and consulting Cardiology. #. Prolonged QTC: Giving IV potassium. Repeat EKG in a.m.. Keep potassium above 4 and magnesium above 2 #. Polysubstance use disorder: Monitor for withdrawal. Consulting Addiction Team #. Elevated transaminases in the setting of rhabdo #. Mood disorder: Psych to optimize #. Tobacco use disorder: NRT Med rec pending DVT prophylaxis: Lovenox Full code Admit as inpatient and will require two night minimum hospital stay for management of acute rhabdo, evaluation for elevated troponin, close cardiac monitoring (as above), which is not possible in a lesser acute setting. Specialist consult pending Quality Stroke Does the patient have a stroke diagnosis?: No VTE Prior VTE?: No VTE Risk Level:: Medical - moderate - high VTE Device Contraindication: Treatment Not Indicated VTE Drug Contraindication: N/A - Med Ordered
[2024-10-09] MEDS: Lactated Ringers 1,000 ML 150 ML IVCONT (21:44)
[2024-10-09] MEDS: Potassium Chloride/H20 10 MEQ/100 ML PIGGYBACK 100 MEQ IV ×3 (21:44→23:56)
[2024-10-09] MEDS: Enoxaparin Sodium 100 MG/ML SYRINGE SUBCUT (21:48)
--- NOTE | 2024-10-09 21:59 | PC.NURSE ---
per provider, stop normal saline and start LR at this time. pt denies pain, at bedside.
[2024-10-10] VITALS (10 sets, daily range): BP systolic 113–156; BP diastolic 69–98; PULSE 69–85; RESP 11–20; TEMP 36.4–37; O2SAT 92–98
--- NOTE | 2024-10-10 | PC.NURSE ---
pt voided in urinal at this time, pt urine discarded prior to urine sample obtained. pt reports he is unable to urinate again at this time.
[2024-10-10] MEDS: Potassium Chloride/H20 10 MEQ/100 ML PIGGYBACK 100 MEQ IV (01:28)
[2024-10-10 05:00] LABS: Hematocrit 38.5 % (42.0-52.0); Hemoglobin 12.7 g/dl (14.0-18.0); Mean Corpuscular Hemoglobin 28.6 pg (27.0-33.0); Mean Corpuscular Volume 86.7 fL (80.0-98.0); Mean Platelet Volume 10.9 fL (9.4-12.4); PLT CLUMP 1; Red Blood Count 4.44 X10*6/uL (4.60-5.80); Red Cell Distribution Width 13.2 % (11.0-16.0)
[2024-10-10 05:16] LABS: Platelet Count 128 X10*3/uL (160-400); White Blood Count 6.6 X10*3/uL (4.8-10.8)
[2024-10-10 05:28] LABS: Anion Gap 13 (12-20); Blood Urea Nitrogen 17 mg/dL (9-16); Calcium 8.2 mg/dL (8.4-10.2); Carbon Dioxide 20 mmol/L (22-29); Chloride 108 mmol/L (96-108); Creatinine Clr Calc Pharmacy 175.9; Estimated Glomerular Filt Rate > 60; Glucose Random 72 mg/dL (60-115); Magnesium 2.3 mg/dL (1.6-2.6); Sodium 137 mmol/L (135-145)
--- NOTE | 2024-10-10 06:25 | PC.NURSE ---
pt noted to be throwing up and agitated at this time, pt COWS = 7. dr.vali sylvester.
[2024-10-10] MEDS: LORazepam 2 MG/ML VIAL 1 MG IVPUSH (06:37)
[2024-10-10] MEDS: ondansetron HCL 4 MG/2 ML VIAL IVPUSH (06:37)
--- NOTE | 2024-10-10 06:39 | PC.NURSE ---
pt medicated per mar, pt resting in stretcher.
[2024-10-10] MEDS: Lactated Ringers 1,000 ML 150 ML IVCONT ×3 (07:41→20:42)
--- NOTE | 2024-10-10 07:50 | PC.NURSE ---
assumed care of patient at 0700, patient resting quietly in room ED 8, has sitter for safety. patient has LR running 150ml/hr. patient is awake, alert and oriented x3. patient ate approx 50% of breakfast. resp even and unlabored, skin dry and intact. patient shows no signs of acute distress. noted to be in normal sinus rhythm on tele monitor. patient states he feels less nauseas after zofran admin on prev shift.
--- NOTE | 2024-10-10 08:00 | ECG_ITS ---
Test Reason : QTC Blood Pressure : */* mmHG Vent. Rate : 87 BPM Atrial Rate : 87 BPM P-R Int : 144 ms QRS Dur : 80 ms QT Int : 386 ms P-R-T Axes : 35 -7 8 degrees QTcB Int : 464 ms Normal sinus rhythm Normal ECG Referred By: Frannie Vallecillo Electronically Signed By: Kashmir Dennis
--- NOTE | 2024-10-10 09:15 | HO.PM.IMPN ---
Subjective Subjective Date of Service: 10/10/24 Review of Systems Follow up overdose, Rhabdo no NVD Feeling out of it Physical Exam Vital Signs: Vital Signs: Last Vital Signs Temp 97.6 F 10/10/24 07:39 Pulse 85 10/10/24 07:39 Resp 20 10/10/24 07:39 BP 113/81 10/10/24 07:39 Pulse Ox 93 10/10/24 07:39 O2 Del Method Room Air 10/10/24 07:39 BMI result Body Mass Index 32.9 Appearing in no acute distress lung sounds are clear to auscultation heart regular rate rhythm, clear S1, S2 positive bowel sounds, abdomen is soft, nontender neuro patient is alert x3, no focal deficits Objective Data Active Medications Acetaminophen (Acetaminophen 325 Mg Tablet) 650 mg PO Q6H PRN PRN Reason: Pain, Mild 1-3,fever,headache Albuterol/Ipratropium (Albuterol/Iprat 2.5/0.5mg 3 Ml Ampul.Neb) 3 ml INHALE Q4H PRN PRN Reason: Shortness of Breath/Wheezing Calcium Carbonate (Calcium Carbonate 750 Mg Tab.Chew) 750 mg PO Q4H PRN PRN Reason: Heartburn Enoxaparin Sodium (Enoxaparin Sodium 40 Mg/0.4 Ml Syringe) 40 mg SUBCUT Q24H [facility] Lactated Ringer's (Lr) 1,000 mls @ 150 mls/hr IVCONT .Q6H40M [facility] Last Admin: 10/10/24 07:41 Dose: 150 mls/hr Documented By: ADDISON Magnesium Hydroxide (Milk Of Magnesia 30 Ml Oral.Susp) 30 ml PO DAILY PRN PRN Reason: Constipation Melatonin (Melatonin 3 Mg Tablet) 6 mg PO BEDTIME PRN PRN Reason: Insomnia Nicotine Polacrilex (Nicotine Polacrilex 2 Mg Gum) 2 mg BUCCAL Q2H PRN PRN Reason: Nicotine Cravings Ondansetron HCl (Ondansetron Hcl 4 Mg/2 Ml Vial) 4 mg IVPUSH Q8H PRN PRN Reason: Nausea and Vomiting Last Admin: 10/10/24 06:37 Dose: 4 mg Documented By: HAYLIE Sodium Chloride (0.9 % Sodium Chloride Flush 3 Ml Syringe) 3 ml IVFLUSH QSHIFT [facility] Last Admin: 10/10/24 07:42 Dose: Not Given Documented By: ADDISON Non-Admin Reason: IV Running Labs 10/10/24 04:15 10/10/24 04:15 Labs: Laboratory Results - last 24 hr 10/09/24 10/09/24 10/09/24 15:34 16:27 17:16 MCV 84.7 MCH 28.2 MCHC 33.3 RDW 13.2 Plt Count 252 MPV 9.2 L Immature Gran % (Auto) 0.3 Neut % (Auto) 83.0 H Lymph % (Auto) 9.1 L [place] % (Auto) 7.2 Eos % (Auto) 0.0 Baso % (Auto) 0.4 Lymph # (Auto) 1.1 L [place] # (Auto) 0.8 Eos # (Auto) 0.0 Baso # (Auto) 0.1 Abs Immat Gran (auto) 0.04 H Absolute Neuts (auto) 9.6 H Absolute Nucleated RBC 0.000 Nucleated RBC % (auto) 0.0 Anion Gap 17 Estim Creat Clear Calc 141.6 Estimated GFR > 60 Random Glucose 89 Lactic Acid 1.4 Calcium 9.9 D Magnesium 2.2 Total Bilirubin 0.6 Direct Bilirubin 0.2 AST 484 H ALT 113 H Alkaline Phosphatase 97 Total Creatine Kinase 99437 H Troponin I High Sens 135.1 H* D 132.7 H* B-Natriuretic Peptide 187 H Total Protein 9.0 H Albumin 4.4 Lipase 5 L Salicylates < 5.0 L Acetaminophen < 3 Ethyl Alcohol 10 Influenza Type A (PCR) NEGATIVE Influenza Type B (PCR) NEGATIVE RSV RNA Qual (PCR) NEGATIVE SARS-CoV-2 RNA (RT-PCR) NEGATIVE 10/09/24 10/10/24 20:18 04:15 MCV 86.7 MCH 28.6 MCHC 33.0 RDW 13.2 Plt Count 128 L D MPV 10.9 Immature Gran % (Auto) Neut % (Auto) Lymph % (Auto) [place] % (Auto) Eos % (Auto) Baso % (Auto) Lymph # (Auto) [place] # (Auto) Eos # (Auto) Baso # (Auto) Abs Immat Gran (auto) Absolute Neuts (auto) Absolute Nucleated RBC 0.000 Nucleated RBC % (auto) 0.0 Anion Gap 13 Estim Creat Clear Calc 175.9 Estimated GFR > 60 Random Glucose 72 Lactic Acid Calcium 8.2 L D Magnesium 2.3 Total Bilirubin 0.3 Direct Bilirubin 0.1 AST 341 H ALT 83 H Alkaline Phosphatase 73 Total Creatine Kinase 9865 H Troponin I High Sens B-Natriuretic Peptide Total Protein 6.8 Albumin 3.4 L Lipase Salicylates Acetaminophen Ethyl Alcohol Influenza Type A (PCR) Influenza Type B (PCR) RSV RNA Qual (PCR) SARS-CoV-2 RNA (RT-PCR) Assessment and Plan (1) Suicide attempt: Status: Acute Plan 38-year-old male with pertinent history of polysubstance IVDU, history of endocarditis and septic pulmonary embolism, history of septic arthritis of the knee, mood disorder, tobacco use disorder, asthma not on home oxygen who was brought to the emergency department after intentional opiate overdose. Acute toxic encephalopathy due to intentional overdose of heroin as suicidal attempt Resolved with intranasal Narcan. Consulted sitter. CARE team once medically clear Acute rhabdomyolysis, nontraumatic nonexertional In the setting of toxins. CPK 9865 normal renal function continue IV crystalloid resuscitation. Elevated troponin Given 1 dose of therapeutic Lovenox in the ER. Trend troponin and consulting Cardiology. Prolonged QTC Giving IV potassium. Keep potassium above 4 and magnesium above 2 Polysubstance use disorde Monitor for withdrawal. Consulting Addiction Team Elevated transaminases in the setting of rhabdo Mood disorder Psych to optimize Tobacco use disorder NRT DVT prophylaxis: Sonia Attending Dr. Ash Full code Quality Stroke Does the patient have a stroke diagnosis?: No VTE Prior VTE?: No VTE Risk Level:: Medical - moderate - high VTE Device Contraindication: Treatment Not Indicated VTE Drug Contraindication: N/A - Med Ordered
--- NOTE | 2024-10-10 09:23 | MHC.CM.PN ---
Patient was just released from [facility] on 10/08/2024. Patient is here with an intentional overdose/Suicide attempt and will benefit from a Care Team Consult to assist with disposition. CM has initiated and will follow for dc planning. PCP is Dr. Raquel Gao and HCP is
[2024-10-10 11:58] LABS: Troponin-I High Sensitivity 45.4 ng/L (<3.5-35.0)
--- NOTE | 2024-10-10 11:59 | HE.PHANOTE ---
Re Methadone Received verification from nursing. Pt was receiving methadone from [facility], and was sent to [facility] in [place] afterwards. Last dose was 175mg on 10/08/2024.
--- NOTE | 2024-10-10 13:05 | PHA.MEDREC ---
Addendum entered by Allison Horta RPh 10/10/24 13:43: reviewed by [facility] Original Note: Pharmacy Consult ? Medication Reconciliation Pharmacy has completed the medication reconciliation. Patient reports he was sent home with blister packs from the senior living. Called nurses station at the senior living - . She reports the patient did not have any discharge order for medications from a doctor or mental health program on file. She does not know what he was sent home with. She gave me a list of what he was taking while he was at the facility but a lot of them he regularly refused. She emphasized this list should not determine what the doctor here orders. I only entered on his home list what he normally took based off of what the nurse said, provider is aware. Will have [facility] follow up with [facility] tomorrow morning to see if they have any information on his prescriptions [[id number]]. Refused most of the time: Hydroxyzine 25 mg daily - he did not take Hydroxyzine 100 mg at bedtime - refused all the time Benztropine 1 mg at bedtime - refused Bupropion 150 mg bid - never took Took regularly/sometimes Amitriptyline 25 mg at bedtime - sometimes took Quetiapine 200 mg - took regularly Docusate 100 mg bid - took most of the time (i entered in as prn) Famotidine 20 mg bid - took most of the time Methadone 175 mg daily - always took Prazosin 4 mg at bedtime - always took gabapentin 800 mg tid - always took buspirone 30 mg tid - took most of the time
--- NOTE | 2024-10-10 13:16 | P.CONCA_ITS ---
History of Present Illness History of Present Illness Date of Service: 10/10/24 Requesting physician: Temitope Malik Chief complaint: overdose, + troponin Narrative: 38-year-old with background history of substance abuse presenting with heroin overdose. He got out of [place] [facility] and tried to commit suicide by intentional overdose of heroin. Apparently was in an alley and he was given 3 Narcan and then regained consciousness. He is still suicidal. He has been experiencing sharp stabbing sensation in the left-sided chest for over 2 months. His high sensitive troponin levels were 135, 130-145. CPK is 9865. BNP 187. He is currently pain-free. Other labs EKG and imaging reviewed. [facility] Past Medical History Medical History Septic arthritis of right ankle Opioid use disorder, severe, dependence Delusional disorder ADHD (attention deficit hyperactivity disorder) MDD (major depressive disorder), recurrent episode, moderate Cellulitis Hepatitis C Opiate abuse, continuous Anterior T wave inversion Pulmonary emboli Multiple abrasions Head injury Suicide attempt Abrasion of face Heroin overdose Opiate abuse, continuous Mood disorder ADHD Major depression with psychotic features Endocarditis DVT (deep venous thrombosis) Severe sepsis Anemia Eye contusion Left upper extremity deep vein thrombosis Hepatitis C IV drug abuse Surgical History Surgical History Hx of eye surgery S/P left knee arthroscopy History of left knee surgery Social History Social History Household Members: Other Household Members Other:: aunt Housing: Other Housing Other:: hotel everyday Do you presently have visiting nurse or other home services: No (in program) Unable to assess alcohol history related to: Unknown Alcohol intake: current Alcohol intake frequency: a few times a week Alcohol type: hard liquor Comment: 1:1 sitter Patient Tobacco Use Status: Current everyday Tobacco user Tobacco use type: Cigarette Cigarette Packs Per Day: 1.5 Cigarettes Per Day: 30 Years Smoked: 23 Smoked in Last 30 Days: No e-Cigarette/Vaping Use: Former Use Second Hand Smoke Exposure: No Use of substances other than those prescribed or required for medical reasons: Yes Substance Use Type: Crack/Cocaine and Heroin Substance Use Frequency: Daily Advance Directives: No Advance Directives Information Provided: No Do you have a plan to hurt others: No Plan Nutrition Risks: No Nutritional Risk service: No Current occupational status: unemployed Sexual orientation: Straight/Heterosexual Meds Allergies Allergy/AdvReac Type Severity Reaction Status Date / Time haloperidol [From HALDOL] AdvReac Intermediate LOCK JAW Verified 10/09/24 15:16 olanzapine [From ZYPREXA] AdvReac Unknown PT REPORTS Verified 10/09/24 15:16 FEELS LIKE I AM ON AN ACID TRIP Active Medications: Current Medications Acetaminophen (Acetaminophen 325 Mg Tablet) 650 mg PO Q6H PRN PRN Reason: Pain, Mild 1-3,fever,headache Albuterol/Ipratropium (Albuterol/Iprat 2.5/0.5mg 3 Ml Ampul.Neb) 3 ml INHALE Q4H PRN PRN Reason: Shortness of Breath/Wheezing Calcium Carbonate (Calcium Carbonate 750 Mg Tab.Chew) 750 mg PO Q4H PRN PRN Reason: Heartburn Enoxaparin Sodium (Enoxaparin Sodium 40 Mg/0.4 Ml Syringe) 40 mg SUBCUT Q24H [facility] Lactated Ringer's (Lr) 1,000 mls @ 150 mls/hr IVCONT .Q6H40M [facility] Last Admin: 10/10/24 07:41 Dose: 150 mls/hr Magnesium Hydroxide (Milk Of Magnesia 30 Ml Oral.Susp) 30 ml PO DAILY PRN PRN Reason: Constipation Melatonin (Melatonin 3 Mg Tablet) 6 mg PO BEDTIME PRN PRN Reason: Insomnia Nicotine Polacrilex (Nicotine Polacrilex 2 Mg Gum) 2 mg BUCCAL Q2H PRN PRN Reason: Nicotine Cravings Ondansetron HCl (Ondansetron Hcl 4 Mg/2 Ml Vial) 4 mg IVPUSH Q8H PRN PRN Reason: Nausea and Vomiting Last Admin: 10/10/24 06:37 Dose: 4 mg Sodium Chloride (0.9 % Sodium Chloride Flush 3 Ml Syringe) 3 ml IVFLUSH QSHIFT [facility] Last Admin: 10/10/24 07:42 Dose: Not Given Home Medications ?Medication ?Instructions ?Recorded ?Confirmed ?Last Taken ?Type docusate sodium 100 mg capsule 100 mg PO BID PRN Constipation 10/25/23 10/10/24 Unknown History methadone 10 mg/mL oral 175 mg PO DAILY 10/25/23 10/10/24 10/08/24 History concentrate (Methadose) famotidine 20 mg tablet 20 mg PO BID 10/10/24 10/10/24 Unknown History prazosin 2 mg capsule 4 mg PO BEDTIME 10/10/24 10/10/24 Unknown History quetiapine 200 mg tablet (Seroquel) 200 mg PO BEDTIME 10/10/24 10/10/24 Unknown History Physical Exam 2 Vital Signs: Vital Signs: Last Vital Signs Temp 97.6 F 10/10/24 07:39 Pulse 85 10/10/24 07:39 Resp 20 10/10/24 07:39 BP 113/81 10/10/24 07:39 Pulse Ox 93 10/10/24 07:39 O2 Del Method Room Air 10/10/24 07:39 BMI result Body Mass Index 32.9 GENERAL APPEARANCE: in no acute distress, pleasant. NECK: no carotid bruit, no jugular venous distention. SKIN: no suspicious lesions, warm and dry. HEART: no murmurs, regular rate and rhythm. LUNGS: clear to auscultation bilaterally. ABDOMEN: soft, nontender. EXTREMITIES: no edema. PERIPHERAL PULSES: equal. NEUROLOGIC: No gross deficits, AAO X 3 Objective Labs and Meds 10/10/24 04:15 10/10/24 04:15 Lab results: Laboratory Results - last 24 hr 10/09/24 10/09/24 10/09/24 15:34 16:27 17:16 WBC 11.6 H RBC 5.24 D Hgb 14.8 D Hct 44.4 D MCV 84.7 MCH 28.2 MCHC 33.3 RDW 13.2 Plt Count 252 MPV 9.2 L Immature Gran % (Auto) 0.3 Neut % (Auto) 83.0 H Lymph % (Auto) 9.1 L [place] % (Auto) 7.2 Eos % (Auto) 0.0 Baso % (Auto) 0.4 Lymph # (Auto) 1.1 L [place] # (Auto) 0.8 Eos # (Auto) 0.0 Baso # (Auto) 0.1 Abs Immat Gran (auto) 0.04 H Absolute Neuts (auto) 9.6 H Absolute Nucleated RBC 0.000 Nucleated RBC % (auto) 0.0 Sodium 138 Potassium 3.5 Chloride 104 Carbon Dioxide 21 L Anion Gap 17 BUN 22 H Creatinine 0.77 Estim Creat Clear Calc 141.6 Estimated GFR > 60 Random Glucose 89 Lactic Acid 1.4 Calcium 9.9 D Magnesium 2.2 Total Bilirubin 0.6 Direct Bilirubin 0.2 AST 484 H ALT 113 H Alkaline Phosphatase 97 Total Creatine Kinase 86666 H Troponin I High Sens 135.1 H* D 132.7 H* B-Natriuretic Peptide 187 H Total Protein 9.0 H Albumin 4.4 Lipase 5 L Salicylates < 5.0 L Acetaminophen < 3 Ethyl Alcohol 10 Influenza Type A (PCR) NEGATIVE Influenza Type B (PCR) NEGATIVE RSV RNA Qual (PCR) NEGATIVE SARS-CoV-2 RNA (RT-PCR) NEGATIVE 10/09/24 10/10/24 10/10/24 20:18 04:15 11:17 WBC 6.6 RBC 4.44 L Hgb 12.7 L Hct 38.5 L MCV 86.7 MCH 28.6 MCHC 33.0 RDW 13.2 Plt Count 128 L D MPV 10.9 Immature Gran % (Auto) Neut % (Auto) Lymph % (Auto) [place] % (Auto) Eos % (Auto) Baso % (Auto) Lymph # (Auto) [place] # (Auto) Eos # (Auto) Baso # (Auto) Abs Immat Gran (auto) Absolute Neuts (auto) Absolute Nucleated RBC 0.000 Nucleated RBC % (auto) 0.0 Sodium 137 Potassium 4.0 Chloride 108 Carbon Dioxide 20 L Anion Gap 13 BUN 17 H Creatinine 0.62 Estim Creat Clear Calc 175.9 Estimated GFR > 60 Random Glucose 72 Lactic Acid Calcium 8.2 L D Magnesium 2.3 Total Bilirubin 0.3 Direct Bilirubin 0.1 AST 341 H ALT 83 H Alkaline Phosphatase 73 Total Creatine Kinase 9865 H Troponin I High Sens 45.4 H D B-Natriuretic Peptide Total Protein 6.8 Albumin 3.4 L Lipase Salicylates Acetaminophen Ethyl Alcohol Influenza Type A (PCR) Influenza Type B (PCR) RSV RNA Qual (PCR) SARS-CoV-2 RNA (RT-PCR) Assessment and Plan (1) Intentional overdose: Qualifiers: Encounter type: initial encounter Qualified Code(s): T50.902A - Poisoning by unspecified drugs, medicaments and biological substances, intentional self-harm, initial encounter Status: Acute (2) Elevated troponin: Status: Acute Plan 38-year-old with intentional heroin overdose and suicide ideation. He has mildly elevated troponin levels. He apparently was found in an alley and was given Narcan 3 times. No clear hypoxia here but quite possible that he was hypoxic at that time. He probably had mild type 2 injury. Atypical chest pain history previously. He is actively suicidal and was need psych evaluation. For elevated CPK and mild rhabdomyolysis-hydration and reassess. No further cardiovascular workup is required currently. Do not recommend heparin. Thank you for allowing me to participate in the care of your patient. Please feel free to contact me if you have any questions. Procedures Date of Service Date of Service: 10/10/24
--- NOTE | 2024-10-10 13:30 | PC.NURSE ---
patient has been resting through out the day, resp even and unlabored, patient shows no signs of acute distress. patient is easily arousable, alert and oriented x4. patient has LR running 150ml/hr, patient is normal sinus on tele monitor. sat up and ate half of peanut butter jelly sandwich for lunch, appetite is poor.
--- NOTE | 2024-10-10 13:37 | HO.ADDICT_ITS ---
History of Present Illness Date of Service: 10/10/24 Chief Complaint: overdose, + troponin Reason for Consult: restarting methadone with prolomged QTc Sources of Information: patient interviewed and chart reviewed HPI Narrative: Patient is a 38 year old male who presented to [facility] following reported intentional opiate overdose requiring narcan Patient known to t/w and ACS via previous admissions and consults for active substance use Patient seen in room 8 of main ED. He is medically admitted due to rhabdo Initial QTc 575--methadone held Labs reviewed He is awake, alert, guarded. He reports that he was released from [facility] on Sunday 10/08 and this also when he received his last dose of methadone 175mg This was verified by RN and faxed to pharmacy He states he is starting to feel sick, and would like his dose of methadone Per chart review, patient reported using large amount of fentanyl IV in an attempt to overdose, and woke to someone telling he had 4 doses of narcan administered Unclear how long he was out for or where He presents as well kempt, anxious, with poor eye contact Past Psychiatric History: -Pt has an extensive hx of inpt hospitalizations, ATS, EATS, CSS, CCS, CSP, Recovery programs, and was section 35 on 09/01/17 and recently discharged from a section 35. He has a hx of multiple overdoses (over 30x). -Psych prescriber is Dr. Raquel Gao -Hx of multiple SAs (in 2012 by hanging, hx of intentional OD on heroin) Past med trials: Haloperidol (adverse rxn), Olanzapine (adverse rxn), seroquel 300 mg HS (says he has been on this for yrs with good effect), buspar (beneficial), wellbutrin XL 150 mg (beneficial), vraylar (RLS) -patient reports section 35 and then admission to the [facility] program around Sep 2022, during which time he was sober for 8 months Review of Systems Constitutional: Reports as per HPI Diagnostics Vital Signs (24Hr): Vital Signs - 24 hr 10/09/24 15:15 10/09/24 15:18 10/09/24 15:30 Temperature 98.3 F 98.3 F Pulse Rate 99 99 99 Respiratory Rate 18 14 14 Blood Pressure 120/87 120/87 Pulse Oximetry 94 93 Oxygen Delivery Method Room Air Room Air 10/09/24 15:58 10/09/24 16:54 10/09/24 17:45 Temperature 98.9 F 97.9 F Pulse Rate 92 90 82 Respiratory Rate 15 15 16 Blood Pressure 125/80 120/80 125/80 Pulse Oximetry 95 97 95 Oxygen Delivery Method Room Air Room Air Room Air 10/09/24 19:42 10/10/24 01:54 10/10/24 05:35 Temperature 98.5 F 97.7 F 97.7 F Pulse Rate 82 79 77 Respiratory Rate 17 18 15 Blood Pressure 134/72 156/81 H 132/77 Pulse Oximetry 95 98 95 Oxygen Delivery Method Room Air Room Air Room Air 10/10/24 07:21 10/10/24 07:39 10/10/24 13:29 Temperature 97.6 F 97.8 F Pulse Rate 82 85 80 Respiratory Rate 11 L 20 20 Blood Pressure 148/96 H 113/81 118/85 Pulse Oximetry 96 93 92 Oxygen Delivery Method Room Air Room Air Room Air BMI result Body Mass Index 32.9 Labs 10/10/24 04:15 10/10/24 04:15 Labs: Laboratory Results - last 48 hr 10/09/24 10/09/24 10/09/24 15:34 16:27 17:16 WBC 11.6 H RBC 5.24 D Hgb 14.8 D Hct 44.4 D MCV 84.7 MCH 28.2 MCHC 33.3 RDW 13.2 Plt Count 252 MPV 9.2 L Immature Gran % (Auto) 0.3 Neut % (Auto) 83.0 H Lymph % (Auto) 9.1 L [place] % (Auto) 7.2 Eos % (Auto) 0.0 Baso % (Auto) 0.4 Lymph # (Auto) 1.1 L [place] # (Auto) 0.8 Eos # (Auto) 0.0 Baso # (Auto) 0.1 Abs Immat Gran (auto) 0.04 H Absolute Neuts (auto) 9.6 H Absolute Nucleated RBC 0.000 Nucleated RBC % (auto) 0.0 Sodium 138 Potassium 3.5 Chloride 104 Carbon Dioxide 21 L Anion Gap 17 BUN 22 H Creatinine 0.77 Estim Creat Clear Calc 141.6 Estimated GFR > 60 Random Glucose 89 Lactic Acid 1.4 Calcium 9.9 D Magnesium 2.2 Total Bilirubin 0.6 Direct Bilirubin 0.2 AST 484 H ALT 113 H Alkaline Phosphatase 97 Total Creatine Kinase 54036 H Troponin I High Sens 135.1 H* D 132.7 H* B-Natriuretic Peptide 187 H Total Protein 9.0 H Albumin 4.4 Lipase 5 L Salicylates < 5.0 L Acetaminophen < 3 Ethyl Alcohol 10 Influenza Type A (PCR) NEGATIVE Influenza Type B (PCR) NEGATIVE RSV RNA Qual (PCR) NEGATIVE SARS-CoV-2 RNA (RT-PCR) NEGATIVE 10/09/24 10/10/24 10/10/24 20:18 04:15 11:17 WBC 6.6 RBC 4.44 L Hgb 12.7 L Hct 38.5 L MCV 86.7 MCH 28.6 MCHC 33.0 RDW 13.2 Plt Count 128 L D MPV 10.9 Immature Gran % (Auto) Neut % (Auto) Lymph % (Auto) [place] % (Auto) Eos % (Auto) Baso % (Auto) Lymph # (Auto) [place] # (Auto) Eos # (Auto) Baso # (Auto) Abs Immat Gran (auto) Absolute Neuts (auto) Absolute Nucleated RBC 0.000 Nucleated RBC % (auto) 0.0 Sodium 137 Potassium 4.0 Chloride 108 Carbon Dioxide 20 L Anion Gap 13 BUN 17 H Creatinine 0.62 Estim Creat Clear Calc 175.9 Estimated GFR > 60 Random Glucose 72 Lactic Acid Calcium 8.2 L D Magnesium 2.3 Total Bilirubin 0.3 Direct Bilirubin 0.1 AST 341 H ALT 83 H Alkaline Phosphatase 73 Total Creatine Kinase 9865 H Troponin I High Sens 45.4 H D B-Natriuretic Peptide Total Protein 6.8 Albumin 3.4 L Lipase Salicylates Acetaminophen Ethyl Alcohol Influenza Type A (PCR) Influenza Type B (PCR) RSV RNA Qual (PCR) SARS-CoV-2 RNA (RT-PCR) Mental Status Exam Mental Status Exam Patient Appearance: Well Grooomed Patient Orientation: Person, Place, Time and Situation Level of Consciousness: Awake, Appropriate and Alert Patient Behavior: Guarded Mood Description: Anxious and Blunted Affect Description: Blunted Medications Medications Current Medications Acetaminophen (Acetaminophen 325 Mg Tablet) 650 mg PO Q6H PRN PRN Reason: Pain, Mild 1-3,fever,headache Albuterol/Ipratropium (Albuterol/Iprat 2.5/0.5mg 3 Ml Ampul.Neb) 3 ml INHALE Q4H PRN PRN Reason: Shortness of Breath/Wheezing Calcium Carbonate (Calcium Carbonate 750 Mg Tab.Chew) 750 mg PO Q4H PRN PRN Reason: Heartburn Enoxaparin Sodium (Enoxaparin Sodium 40 Mg/0.4 Ml Syringe) 40 mg SUBCUT Q24H [facility] Lactated Ringer's (Lr) 1,000 mls @ 150 mls/hr IVCONT .Q6H40M [facility] Last Admin: 10/10/24 07:41 Dose: 150 mls/hr Magnesium Hydroxide (Milk Of Magnesia 30 Ml Oral.Susp) 30 ml PO DAILY PRN PRN Reason: Constipation Melatonin (Melatonin 3 Mg Tablet) 6 mg PO BEDTIME PRN PRN Reason: Insomnia Nicotine Polacrilex (Nicotine Polacrilex 2 Mg Gum) 2 mg BUCCAL Q2H PRN PRN Reason: Nicotine Cravings Ondansetron HCl (Ondansetron Hcl 4 Mg/2 Ml Vial) 4 mg IVPUSH Q8H PRN PRN Reason: Nausea and Vomiting Last Admin: 10/10/24 06:37 Dose: 4 mg Sodium Chloride (0.9 % Sodium Chloride Flush 3 Ml Syringe) 3 ml IVFLUSH QSHIFT [facility] Last Admin: 10/10/24 07:42 Dose: Not Given Allergies Allergies Allergy/AdvReac Type Severity Reaction Status Date / Time haloperidol [From HALDOL] AdvReac Intermediate LOCK JAW Verified 10/09/24 15:16 olanzapine [From ZYPREXA] AdvReac Unknown PT REPORTS Verified 10/09/24 15:16 FEELS LIKE I AM ON AN ACID TRIP Assessment & Plan Assessment & Plan (1) Opioid use disorder, severe, dependence: Status: Acute Code(s): F11.20 - Opioid dependence, uncomplicated Assessment and Plan: * QTc has shortened to 464 and mental status WNL * restart methadone at home dose * will follow up as appropriate--patient awaiting medical clearance for CARE consult and dispo Total time managing care of this patient today ____ minutes. PMFSH Past Medical History Medical History Opioid use disorder, severe, dependence Septic arthritis of right ankle Delusional disorder ADHD (attention deficit hyperactivity disorder) MDD (major depressive disorder), recurrent episode, moderate Cellulitis Hepatitis C Opiate abuse, continuous Anterior T wave inversion Pulmonary emboli Multiple abrasions Head injury Suicide attempt Abrasion of face Heroin overdose Opiate abuse, continuous Mood disorder ADHD Major depression with psychotic features Endocarditis DVT (deep venous thrombosis) Severe sepsis Anemia Eye contusion Left upper extremity deep vein thrombosis Hepatitis C IV drug abuse Surgical History Surgical History Hx of eye surgery S/P left knee arthroscopy History of left knee surgery Social History Social History Household Members: Other Household Members Other:: aunt Housing: Other Housing Other:: hotel everyday Do you presently have visiting nurse or other home services: No (in program) Unable to assess alcohol history related to: Unknown Alcohol intake: current Alcohol intake frequency: a few times a week Alcohol type: hard liquor Comment: 1:1 sitter Patient Tobacco Use Status: Current everyday Tobacco user Tobacco use type: Cigarette Cigarette Packs Per Day: 1.5 Cigarettes Per Day: 30 Years Smoked: 23 Smoked in Last 30 Days: No e-Cigarette/Vaping Use: Former Use Second Hand Smoke Exposure: No Use of substances other than those prescribed or required for medical reasons: Yes Substance Use Type: Crack/Cocaine and Heroin Substance Use Frequency: Daily Advance Directives: No Advance Directives Information Provided: No Do you have a plan to hurt others: No Plan Nutrition Risks: No Nutritional Risk service: No Current occupational status: unemployed Sexual orientation: Straight/Heterosexual
[2024-10-10] MEDS: methADONE HCl 20 MG/2 ML ORAL.CONC 175 MG PO (14:55)
[2024-10-10] MEDS: 0.9 % Sodium Chloride Flush 3 ML SYRINGE IVFLUSH (15:01)
--- NOTE | 2024-10-10 17:13 | MHC.EDTECH ---
This pct assumed care of Patient at 1500 ,vitals taken ,Patient urine sample collected and sent to lab ,900 ml urine empty from urinal ,Patient awake ,watching television ,1 :1 sitter at bedside .
[2024-10-10 17:29] LABS: Amphetamine Screen Urine Not Detected (Not Detect); Barbiturates, Urine Not Detected (Not Detect); Benzodiazepines Screen Urine Not Detected (Not Detect); Buprenorphine Scr Not Detected (Not Detect); Cannabinoid Screen Urine Not Detected (Not Detect); Cocaine Screen Urine POSITIVE (Not Detect); Fentanyl, urine POSITIVE (Not Detect); Methadone Screen, Urine Positive (Not Detect); Opiate Screen Urine Not Detected (Not Detect); Oxycodone Screen Urine Not Detected (Not Detect); Phencyclidine Screen Urine Not Detected (Not Detect)
[2024-10-10] MEDS: Enoxaparin Sodium 40 MG/0.4 ML SYRINGE SUBCUT (21:20)
[2024-10-10] MEDS: Calcium Carbonate 750 MG TAB.CHEW PO (23:26)
[2024-10-10] MEDS: busPIRone HCl 10 MG TABLET 30 MG PO (23:57)
[2024-10-10] MEDS: Prazosin HCL 1 MG CAPSULE 4 MG PO (23:57)
[2024-10-10] MEDS: Amitriptyline HCl 25 MG TABLET PO (23:57)
[2024-10-10] MEDS: QUEtiapine Fumarate 200 MG TABLET PO (23:57)
[2024-10-10] MEDS: Gabapentin 400 MG CAPSULE 800 MG PO (23:57)
[2024-10-10] MEDS: Famotidine 20 MG TABLET PO (23:57)
[2024-10-11] VITALS (10 sets, daily range): BP systolic 97–150; BP diastolic 61–84; PULSE 64–81; RESP 10–20; TEMP 36.2–37.1; O2SAT 94–96
[2024-10-11] MEDS: Lactated Ringers 1,000 ML 150 ML IVCONT ×4 (03:25→22:01)
--- NOTE | 2024-10-11 07:00 | CA_ITS ---
Transthoracic Echocardiogram Patient (Last, First, Middle): Moses Howard Tyler Gender: Male Date of : 1985 Age: 38 Procedure Date: 10/11/2024 Procedure Type: Transthoracic Echocardiogram Location: ER Height: 170.18 cm Weight: 95.26 kg BSA: 2.06 m2 Heart Rate: 82 bpm BP: 127 / 74 mmHg Pen Maker: DOROTHY Referring MD: Frannie Vallecillo MD Supervisor Microbiology Technologists: Gamaliel Vera MD Symptoms: elevated troponin Study Quality: Adequate ECG Rhythm: Sinus Conclusions: - Normal study Findings Left Ventricle Normal left ventricular size, thickness, and systolic function. The visually estimated ejection fraction is between 60-65%. Spectral Doppler is indicative of a normal filling pattern. Right Ventricle Normal right ventricular cavity size and systolic function. Atria Both atria are normal in size. There is no evidence of interatrial shunt. Aortic Valve Normal aortic valve structure and function. There is no aortic valve stenosis. There is no aortic valve regurgitation. Mitral Valve Normal mitral valve structure and function. There is trace mitral valve regurgitation. There is no mitral valve stenosis. Pulmonic Valve The pulmonic valve is likely normal. Tricuspid Valve Normal tricuspid valve structure. Tricuspid regurgitation envelope is inadequate for calculation of right ventricular systolic pressure. Normal right atrial pressure. Great Vessels All visible segments of the aorta are normal in size. The pulmonary artery was not well visualized. Venous The inferior vena cava is normal in size and collapses greater than 50% with inspiration. Pericardium/Pleural There is no evidence of pericardial effusion. Measurements 2D Linear Measurements IVSd: 0.86 0.6-0.9/0.6-1.0 cm LVIDd: 5.25 3.9-5.3/4.2-5.9 cm LVIDd Index: 2.55 2.4-3.2/2.2-3.1 cm/m2 LVIDs: 3.73 2.0-3.6 cm LVPWd: 1.08 0.7-1.1 cm LA Diam: 3.80 2.7-3.8/3.0-4.0 cm LAIDs Index: 1.84 1.5-2.3 cm/m2 LV Mass: 235.59 67-162/88-224 g LV Mass Index: 114.36 43-95/49-115 g/m2 LVOT Diam: 2.30 3.0+(-)1.3 cm 2D Systolic Function EF 4C: 67.60 >55% EF 2C: 55.50 >55% EF BiP: 62.50 >55% Mitral Valve MV Pk E: 0.73 MV PK A: 0.63 MV Decel Time: 258.00 E/A: 1.20 E'Lateral: 13.30 E'Medial: 9.03 E/E' Med: 8.10 E/E' Lat: 5.50 PHT: 75.00 MVA PHT: 2.93 Decel [place]: 2.84 Aortic Valve AoV Pk Jerrod: 1.48 AoV Mn Jerrod: 1.02 AoV VTI: 0.27 AoV Pk Grad: 9.00 Aov Mn Grad: 5.00 SONIDO Cont.VTI: 3.37 LVOT LVOT Pk Jerrod: 1.09 LVOT Mn Jerrod: 0.73 LVOT VTI: 0.22 LVOT Pk Grad: 5.00 LVOT Mn Grad: 2.00 LVOT Diam: 2.30 LVOT Area: 4.15 Diastolic Function MV Pk E: 0.73 MV Pk A: 0.63 E/A: 1.20 E'Medial: 9.03 E/E' Med: 8.10 E' Laterial: 13.30 E/E' Lat: 5.50 Right Ventricle TAPSE (mm): 28.20 TVS' Jerrod: 17.10 Tricuspid Valve RA Press: 3.00 Great Vessels Aorta Sinus of Valsalva: 3.57 2.0-3.[address] [place]: 2.97 1.7-3.4 cm Ao Asc: 3.30 2.1-3.4 cm Updated in Other Vendor System with Status of Final Gamaliel Vera MD electronically signed on 10/11/2024 12:31:02 PM with status of Final
[2024-10-11] MEDS: busPIRone HCl 10 MG TABLET 30 MG PO ×3 (08:30→22:05)
[2024-10-11] MEDS: methADONE HCl 20 MG/2 ML ORAL.CONC 175 MG PO (08:31)
[2024-10-11] MEDS: Gabapentin 400 MG CAPSULE 800 MG PO ×3 (08:31→22:05)
[2024-10-11] MEDS: Famotidine 20 MG TABLET PO ×2 (08:31→22:04)
[2024-10-11] MEDS: 0.9 % Sodium Chloride Flush 3 ML SYRINGE IVFLUSH ×2 (08:36→22:13)
--- NOTE | 2024-10-11 09:05 | PC.NURSE ---
this RN resumed care of pt @ 0645. a&ox4. vss and up to date. nsr on the vehicle monitor technician. pt medicated per provider order. pt currently denies any SI/HI - stating, i just feel depressed. updated COWS = 3. pt on RA w/o difficulty. no sob/wob noted. respirations even/unlabored. pt pending bed assignment at this time. 1:1 sitter remains present. plan of care ongoing. call wild placed within reach.
--- NOTE | 2024-10-11 09:39 | PC.NURSE ---
echocardiogram being completed at this time.
--- NOTE | 2024-10-11 14:51 | HO.PM.IMPN ---
Subjective Subjective Date of Service: 10/11/24 Review of Systems Follow up overdose, Rhabdo no NVD Feeling out of it Physical Exam Vital Signs: Vital Signs: Last Vital Signs Temp 97.8 F 10/11/24 13:39 Pulse 77 10/11/24 13:39 Resp 18 10/11/24 13:39 BP 142/83 H 10/11/24 13:39 Pulse Ox 94 10/11/24 13:39 O2 Del Method Room Air 10/11/24 13:39 BMI result Body Mass Index 32.9 Appearing in no acute distress lung sounds are clear to auscultation heart regular rate rhythm, clear S1, S2 positive bowel sounds, abdomen is soft, nontender neuro patient is alert x3, no focal deficits Objective Data Active Medications Acetaminophen (Acetaminophen 325 Mg Tablet) 650 mg PO Q6H PRN PRN Reason: Pain, Mild 1-3,fever,headache Albuterol/Ipratropium (Albuterol/Iprat 2.5/0.5mg 3 Ml Ampul.Neb) 3 ml INHALE Q4H PRN PRN Reason: Shortness of Breath/Wheezing Amitriptyline HCl (Amitriptyline Hcl 25 Mg Tablet) 25 mg PO BEDTIME [facility] Last Admin: 10/10/24 23:57 Dose: 25 mg Documented By: NATHALY Buspirone HCl (Buspirone Hcl 10 Mg Tablet) 30 mg PO TID [facility] Last Admin: 10/11/24 08:30 Dose: 30 mg Documented By: SHANNAN Calcium Carbonate (Calcium Carbonate 750 Mg Tab.Chew) 750 mg PO Q4H PRN PRN Reason: Heartburn Last Admin: 10/10/24 23:26 Dose: 750 mg Documented By: NATHALY Docusate Sodium (Docusate Sodium 100 Mg Capsule) 100 mg PO BID PRN PRN Reason: Constipation Enoxaparin Sodium (Enoxaparin Sodium 40 Mg/0.4 Ml Syringe) 40 mg SUBCUT Q24H [facility] Last Admin: 10/10/24 21:20 Dose: 40 mg Documented By: CAITLYN Famotidine (Famotidine 20 Mg Tablet) 20 mg PO BID [facility] Last Admin: 10/11/24 08:31 Dose: 20 mg Documented By: SHANNAN Gabapentin (Gabapentin 400 Mg Capsule) 800 mg PO TID [facility] Last Admin: 10/11/24 08:31 Dose: 800 mg Documented By: SHANNAN Lactated Ringer's (Lr) 1,000 mls @ 150 mls/hr IVCONT .Q6H40M [facility] Last Admin: 10/11/24 13:42 Dose: 150 mls/hr Documented By: SHANNAN Magnesium Hydroxide (Milk Of Magnesia 30 Ml Oral.Susp) 30 ml PO DAILY PRN PRN Reason: Constipation Melatonin (Melatonin 3 Mg Tablet) 6 mg PO BEDTIME PRN PRN Reason: Insomnia Methadone HCl (Methadone Hcl 20 Mg/2 Ml Oral.Conc) 175 mg PO DAILY@0800 [facility] Last Admin: 10/11/24 08:31 Dose: 175 mg Documented By: SHANNAN Co-signed By: ELÍAS Nicotine Polacrilex (Nicotine Polacrilex 2 Mg Gum) 2 mg BUCCAL Q2H PRN PRN Reason: Nicotine Cravings Ondansetron HCl (Ondansetron Hcl 4 Mg/2 Ml Vial) 4 mg IVPUSH Q8H PRN PRN Reason: Nausea and Vomiting Last Admin: 10/10/24 06:37 Dose: 4 mg Documented By: HAYLIE Prazosin HCl (Prazosin Hcl 1 Mg Capsule) 4 mg PO BEDTIME [facility]; Protocol Last Admin: 10/10/24 23:57 Dose: 4 mg Documented By: NATHALY Quetiapine Fumarate (Quetiapine Fumarate 200 Mg Tablet) 200 mg PO BEDTIME [facility] Last Admin: 10/10/24 23:57 Dose: 200 mg Documented By: NATHALY Sodium Chloride (0.9 % Sodium Chloride Flush 3 Ml Syringe) 3 ml IVFLUSH QSHIFT [facility] Last Admin: 10/11/24 08:36 Dose: 3 ml Documented By: SHANNAN Labs 10/10/24 04:15 10/10/24 04:15 Labs: Laboratory Results - last 24 hr 10/10/24 17:08 Urine Opiates Screen Not Detected Ur Buprenorphine Scrn Not Detected Ur Oxycodone Screen Not Detected Urine Methadone Screen Positive H Urine Fentanyl Screen POSITIVE H Ur Barbiturates Screen Not Detected Ur Phencyclidine Scrn Not Detected Ur Amphetamines Screen Not Detected U Benzodiazepines Scrn Not Detected Urine Cocaine Screen POSITIVE H U Marijuana (THC) Screen Not Detected Microbiology Microbiology Results: Microbiology 10/09/24 16:26 Blood Culture - Preliminary Blood - Venous No growth after 24 hours. 10/09/24 16:28 Blood Culture - Preliminary Blood - Venous No growth after 24 hours. Assessment and Plan (1) Suicide attempt: Status: Acute Plan 38-year-old male with pertinent history of polysubstance IVDU, history of endocarditis and septic pulmonary embolism, history of septic arthritis of the knee, mood disorder, tobacco use disorder, asthma not on home oxygen who was brought to the emergency department after intentional opiate overdose. Acute toxic encephalopathy due to intentional overdose of heroin as suicidal attempt Resolved with intranasal Narcan. Consulted sitter. CARE team once medically clear Acute rhabdomyolysis, nontraumatic nonexertional In the setting of toxins. CPK 9865 normal renal function continue IV crystalloid resuscitation. Elevated troponin Given 1 dose of therapeutic Lovenox in the ER. Trend troponin and consulting Cardiology. Prolonged QTC Giving IV potassium. Keep potassium above 4 and magnesium above 2 Polysubstance use disorde Monitor for withdrawal. Consulting Addiction Team Elevated transaminases in the setting of rhabdo Mood disorder Psych to optimize Tobacco use disorder NRT DVT prophylaxis: Sonia Attending Dr. Cooper Full code Quality Stroke Does the patient have a stroke diagnosis?: No VTE Prior VTE?: No VTE Risk Level:: Medical - moderate - high VTE Device Contraindication: Treatment Not Indicated VTE Drug Contraindication: N/A - Med Ordered
[2024-10-11 16:42] LABS: Anion Gap 10 (12-20); Blood Urea Nitrogen 10 mg/dL (9-16); Calcium 8.8 mg/dL (8.4-10.2); Carbon Dioxide 28 mmol/L (22-29); Chloride 106 mmol/L (96-108); Creatinine Clr Calc Pharmacy 143.5; Estimated Glomerular Filt Rate > 60; Glucose Random 90 mg/dL (60-115); Potassium 3.8 mmol/L (3.3-5.1); Sodium 140 mmol/L (135-145)
[2024-10-11] MEDS: Amitriptyline HCl 25 MG TABLET PO (22:04)
[2024-10-11] MEDS: QUEtiapine Fumarate 200 MG TABLET PO (22:05)
[2024-10-11] MEDS: Prazosin HCL 1 MG CAPSULE 4 MG PO (22:06)
[2024-10-11] MEDS: Enoxaparin Sodium 40 MG/0.4 ML SYRINGE SUBCUT (22:12)
[2024-10-11] MEDS: Nicotine Polacrilex 2 MG GUM BUCCAL (22:19)
[2024-10-11] MEDS: Zolpidem Tartrate 5 MG TABLET 10 MG PO (23:23)
[2024-10-12 04:00] VITALS: BP 128/78; PULSE 70; TEMP 36.6; O2SAT 93
[2024-10-12 07:43] LABS: Anion Gap 10 (12-20); Blood Urea Nitrogen 11 mg/dL (9-16); Carbon Dioxide 29 mmol/L (22-29); Chloride 107 mmol/L (96-108); Creatinine Clr Calc Pharmacy 151.5; Estimated Glomerular Filt Rate > 60; Glucose Random 117 mg/dL (60-115); Potassium 3.8 mmol/L (3.3-5.1); Sodium 142 mmol/L (135-145)
[2024-10-12] MEDS: Gabapentin 400 MG CAPSULE 800 MG PO ×3 (07:46→21:26)
[2024-10-12] MEDS: methADONE HCl 20 MG/2 ML ORAL.CONC 175 MG PO (07:46)
[2024-10-12] MEDS: Famotidine 20 MG TABLET PO ×2 (07:46→21:25)
[2024-10-12] MEDS: busPIRone HCl 10 MG TABLET 30 MG PO ×3 (07:46→21:25)
[2024-10-12] MEDS: 0.9 % Sodium Chloride Flush 3 ML SYRINGE IVFLUSH ×2 (07:47→15:01)
[2024-10-12] MEDS: 0.9 % Sodium Chloride 1,000 ML 125 ML IVCONT ×3 (07:52→23:07)
[2024-10-12 07:55] VITALS: BP 142/77; PULSE 72; RESP 20; TEMP 36.3; O2SAT 97
--- NOTE | 2024-10-12 09:15 | MHC.CARE ---
Pt meets the criteria for IPLOC secondary to an intentional OD on illicit substances. Section 12a will be placed in chart. Provider in agreement.
--- NOTE | 2024-10-12 10:48 | HO.PM.IMPN ---
Subjective Subjective Date of Service: 10/12/24 Review of Systems Follow up overdose, Rhabdo no NVD Feeling out of it Physical Exam Vital Signs: Vital Signs: Last Vital Signs Temp 97.3 F 10/12/24 07:55 Pulse 72 10/12/24 07:55 Resp 20 10/12/24 07:55 BP 142/77 H 10/12/24 07:55 Pulse Ox 97 10/12/24 07:55 O2 Del Method Room Air 10/12/24 07:55 BMI result Body Mass Index 32.9 Appearing in no acute distress lung sounds are clear to auscultation heart regular rate rhythm, clear S1, S2 positive bowel sounds, abdomen is soft, nontender neuro patient is alert x3, no focal deficits Objective Data Active Medications Acetaminophen (Acetaminophen 325 Mg Tablet) 650 mg PO Q6H PRN PRN Reason: Pain, Mild 1-3,fever,headache Albuterol/Ipratropium (Albuterol/Iprat 2.5/0.5mg 3 Ml Ampul.Neb) 3 ml INHALE Q4H PRN PRN Reason: Shortness of Breath/Wheezing Amitriptyline HCl (Amitriptyline Hcl 25 Mg Tablet) 25 mg PO BEDTIME [facility] Last Admin: 10/11/24 22:04 Dose: 25 mg Documented By: RADHA Buspirone HCl (Buspirone Hcl 10 Mg Tablet) 30 mg PO TID [facility] Last Admin: 10/12/24 07:46 Dose: 30 mg Documented By: JUAN MANUEL Calcium Carbonate (Calcium Carbonate 750 Mg Tab.Chew) 750 mg PO Q4H PRN PRN Reason: Heartburn Last Admin: 10/10/24 23:26 Dose: 750 mg Documented By: NATHALY Docusate Sodium (Docusate Sodium 100 Mg Capsule) 100 mg PO BID PRN PRN Reason: Constipation Enoxaparin Sodium (Enoxaparin Sodium 40 Mg/0.4 Ml Syringe) 40 mg SUBCUT Q24H [facility] Last Admin: 10/11/24 22:12 Dose: 40 mg Documented By: RADHA Famotidine (Famotidine 20 Mg Tablet) 20 mg PO BID [facility] Last Admin: 10/12/24 07:46 Dose: 20 mg Documented By: JUAN MANUEL Gabapentin (Gabapentin 400 Mg Capsule) 800 mg PO TID [facility] Last Admin: 10/12/24 07:46 Dose: 800 mg Documented By: JUAN MANUEL Sodium Chloride (Ns) 1,000 mls @ 125 mls/hr IVCONT .Q8H [facility] Last Admin: 10/12/24 07:52 Dose: 125 mls/hr Documented By: JUAN MANUEL Influenza Virus Vaccine (Flu Vacc [id number](6mos Up)/Pf 0.5 Ml Syringe) 0.5 ml IM .ONCE ONE Stop: 10/13/24 08:01 Magnesium Hydroxide (Milk Of Magnesia 30 Ml Oral.Susp) 30 ml PO DAILY PRN PRN Reason: Constipation Melatonin (Melatonin 3 Mg Tablet) 6 mg PO BEDTIME PRN PRN Reason: Insomnia Methadone HCl (Methadone Hcl 20 Mg/2 Ml Oral.Conc) 175 mg PO DAILY@0800 [facility] Last Admin: 10/12/24 07:46 Dose: 175 mg Documented By: JUAN MANUEL Co-signed By: NAOMI Nicotine Polacrilex (Nicotine Polacrilex 2 Mg Gum) 2 mg BUCCAL Q2H PRN PRN Reason: Nicotine Cravings Last Admin: 10/11/24 22:19 Dose: 2 mg Documented By: RADHA Comments: Nicotene gum Ondansetron HCl (Ondansetron Hcl 4 Mg/2 Ml Vial) 4 mg IVPUSH Q8H PRN PRN Reason: Nausea and Vomiting Last Admin: 10/10/24 06:37 Dose: 4 mg Documented By: HAYLIE Prazosin HCl (Prazosin Hcl 1 Mg Capsule) 4 mg PO BEDTIME [facility]; Protocol Last Admin: 10/11/24 22:06 Dose: 4 mg Documented By: RADHA Quetiapine Fumarate (Quetiapine Fumarate 200 Mg Tablet) 200 mg PO BEDTIME [facility] Last Admin: 10/11/24 22:05 Dose: 200 mg Documented By: RADHA Sodium Chloride (0.9 % Sodium Chloride Flush 3 Ml Syringe) 3 ml IVFLUSH QSHIFT [facility] Last Admin: 10/12/24 07:47 Dose: 3 ml Documented By: JUAN MANUEL Zolpidem Tartrate (Zolpidem Tartrate 5 Mg Tablet) 10 mg PO BEDTIME PRN PRN Reason: Insomnia Last Admin: 01/20/25 23:23 Dose: 10 mg Documented By: RADHA Comments: requested for insomnia Labs 10/10/24 04:15 10/12/24 06:37 Labs: Laboratory Results - last 24 hr 10/11/24 10/12/24 15:59 06:37 Hold Purple Top SEE NOTE Anion Gap 10 L 10 L Estim Creat Clear Calc 143.5 151.5 Estimated GFR > 60 > 60 Random Glucose 90 117 H Calcium 8.8 D 9.0 Total Creatine Kinase 2731 H 1755 H Microbiology Microbiology Results: Microbiology 10/09/24 16:28 Blood Culture - Preliminary Blood - Venous No growth after 48 hours. 10/09/24 16:26 Blood Culture - Preliminary Blood - Venous No growth after 48 hours. Assessment and Plan (1) Suicide attempt: Status: Acute Plan 38-year-old male with pertinent history of polysubstance IVDU, history of endocarditis and septic pulmonary embolism, history of septic arthritis of the knee, mood disorder, tobacco use disorder, asthma not on home oxygen who was brought to the emergency department after intentional opiate overdose. Acute toxic encephalopathy due to intentional overdose of heroin as suicidal attempt Resolved with intranasal Narcan. sitter. CARE team> plan for IPLOC Acute rhabdomyolysis, nontraumatic nonexertional. Resolved In the setting of toxins. CPK peaked at 9865 normal renal function s/p IV crystalloid resuscitation. Elevated troponin likely secondary to rhando Given 1 dose of therapeutic Lovenox in the ER. no cardiology intervention needed Prolonged QTC Giving IV potassium. Keep potassium above 4 and magnesium above 2 Polysubstance use disorde Monitor for withdrawal. Consulting Addiction Team Elevated transaminases in the setting of rhabdo Mood disorder Psych to optimize Tobacco use disorder NRT DVT prophylaxis: Lovenox Attending Dr. Cooper Full code Quality Stroke Does the patient have a stroke diagnosis?: No VTE Prior VTE?: No VTE Risk Level:: Medical - moderate - high VTE Device Contraindication: Treatment Not Indicated VTE Drug Contraindication: N/A - Med Ordered
--- NOTE | 2024-10-12 11:16 | HO.SUDE ---
Please see CARE Team assessment for clinical information. Met with pt for recovery follow up. Pt currently receiving 175 mg methadone daily. Pt had been in [facility] x 11 months, released 10/08/24. Pt reports upon release discharge plans did not work out. Pt reports he had been planning to admit to [facility] or an apartment that pt was connected to through PCP. Both of these plans fell through. Pt reports many family stressors with aunt, sister, and brother who is possibly incarcerated (can not get a hold of him). Pt reports a culmination of these events led to a suicide attempt with 10 bags heroin/fentanyl, IV. Pt reports a history of 42 unintentional overdoses, 7 intentional overdoses. Pt has been to many [facility] treatment programs including [facility] admissions x 25, [facility] x 10-15, TSS 4-5, as well as admittance to [facility], [facility], and [facility]. Pt reports strong family history of AMINTA. Last screened for HIV within the year, results negative. Pt unsure of HCV status. Reports he has been treated for it in the past. Currently, pt plans to be admitted inpatient psyhciatrically and continue treatment. Denies questions or concerns for t/w. Discussed with Daphney Mcgovern APRN.
[2024-10-12 11:26] VITALS: BP 138/69; PULSE 73; RESP 20; TEMP 36.8; O2SAT 94
[2024-10-12] MEDS: Nicotine Polacrilex 2 MG GUM BUCCAL ×2 (15:05→19:48)
[2024-10-12 15:12] VITALS: BP 131/78; PULSE 66; RESP 18; TEMP 36.8; O2SAT 94
[2024-10-12 19:45] VITALS: BP 133/85; PULSE 58; RESP 20; TEMP 36.7; O2SAT 95
[2024-10-12] MEDS: Prazosin HCL 1 MG CAPSULE 4 MG PO (21:26)
[2024-10-12] MEDS: Amitriptyline HCl 25 MG TABLET PO (21:26)
[2024-10-12] MEDS: Enoxaparin Sodium 40 MG/0.4 ML SYRINGE SUBCUT (21:26)
[2024-10-12] MEDS: QUEtiapine Fumarate 200 MG TABLET PO (21:26)
[2024-10-12] MEDS: Zolpidem Tartrate 5 MG TABLET 10 MG PO (22:43)
[2024-10-13] VITALS: BP 143/83; PULSE 75; RESP 18; TEMP 36.2; O2SAT 96
[2024-10-13 03:46] VITALS: BP 132/72; PULSE 64; RESP 18; TEMP 36.6; O2SAT 96
[2024-10-13] MEDS: 0.9 % Sodium Chloride 1,000 ML 125 ML IVCONT (06:34)
[2024-10-13 06:53] VITALS: BP 140/79; PULSE 63; RESP 18; TEMP 36.3; O2SAT 95
[2024-10-13] MEDS: 0.9 % Sodium Chloride Flush 3 ML SYRINGE IVFLUSH (07:47)
[2024-10-13] MEDS: busPIRone HCl 10 MG TABLET 30 MG PO ×2 (07:47→15:02)
[2024-10-13] MEDS: Famotidine 20 MG TABLET PO (07:48)
[2024-10-13] MEDS: Gabapentin 400 MG CAPSULE 800 MG PO ×2 (07:48→15:03)
[2024-10-13] MEDS: methADONE HCl 20 MG/2 ML ORAL.CONC 175 MG PO (07:49)
[2024-10-13] MEDS: Nicotine Polacrilex 2 MG GUM BUCCAL (08:30)
--- NOTE | 2024-10-13 08:32 | HO.PM.IMPN ---
Subjective Subjective Date of Service: 10/13/24 Review of Systems Follow up overdose, Rhabdo no NVD Plan for IPLOC Physical Exam Vital Signs: Vital Signs: Last Vital Signs Temp 97.3 F 10/13/24 06:53 Pulse 63 10/13/24 06:53 Resp 18 10/13/24 06:53 BP 140/79 H 10/13/24 06:53 Pulse Ox 95 10/13/24 06:53 O2 Del Method Room Air 10/13/24 06:53 BMI result Body Mass Index 32.9 Appearing in no acute distress lung sounds are clear to auscultation heart regular rate rhythm, clear S1, S2 positive bowel sounds, abdomen is soft, nontender neuro patient is alert x3, no focal deficits Objective Data Active Medications Acetaminophen (Acetaminophen 325 Mg Tablet) 650 mg PO Q6H PRN PRN Reason: Pain, Mild 1-3,fever,headache Albuterol/Ipratropium (Albuterol/Iprat 2.5/0.5mg 3 Ml Ampul.Neb) 3 ml INHALE Q4H PRN PRN Reason: Shortness of Breath/Wheezing Amitriptyline HCl (Amitriptyline Hcl 25 Mg Tablet) 25 mg PO BEDTIME [facility] Last Admin: 10/12/24 21:26 Dose: 25 mg Documented By: TEODORO Buspirone HCl (Buspirone Hcl 10 Mg Tablet) 30 mg PO TID [facility] Last Admin: 10/13/24 07:47 Dose: 30 mg Documented By: NAOMI Calcium Carbonate (Calcium Carbonate 750 Mg Tab.Chew) 750 mg PO Q4H PRN PRN Reason: Heartburn Last Admin: 10/10/24 23:26 Dose: 750 mg Documented By: NATHALY Docusate Sodium (Docusate Sodium 100 Mg Capsule) 100 mg PO BID PRN PRN Reason: Constipation Enoxaparin Sodium (Enoxaparin Sodium 40 Mg/0.4 Ml Syringe) 40 mg SUBCUT Q24H [facility] Last Admin: 10/12/24 21:26 Dose: 40 mg Documented By: TEODORO Famotidine (Famotidine 20 Mg Tablet) 20 mg PO BID [facility] Last Admin: 10/13/24 07:48 Dose: 20 mg Documented By: NAOMI Gabapentin (Gabapentin 400 Mg Capsule) 800 mg PO TID [facility] Last Admin: 10/13/24 07:48 Dose: 800 mg Documented By: NAOMI Sodium Chloride (Ns) 1,000 mls @ 125 mls/hr IVCONT .Q8H [facility] Last Admin: 10/13/24 06:34 Dose: 125 mls/hr Documented By: TEODORO Magnesium Hydroxide (Milk Of Magnesia 30 Ml Oral.Susp) 30 ml PO DAILY PRN PRN Reason: Constipation Melatonin (Melatonin 3 Mg Tablet) 6 mg PO BEDTIME PRN PRN Reason: Insomnia Methadone HCl (Methadone Hcl 20 Mg/2 Ml Oral.Conc) 175 mg PO DAILY@0800 [facility] Last Admin: 10/13/24 07:49 Dose: 175 mg Documented By: NAOMI Co-signed By: ALESIA Nicotine Polacrilex (Nicotine Polacrilex 2 Mg Gum) 2 mg BUCCAL Q2H PRN PRN Reason: Nicotine Cravings Last Admin: 10/12/24 19:48 Dose: 2 mg Documented By: TEODORO Ondansetron HCl (Ondansetron Hcl 4 Mg/2 Ml Vial) 4 mg IVPUSH Q8H PRN PRN Reason: Nausea and Vomiting Last Admin: 10/10/24 06:37 Dose: 4 mg Documented By: HAYLIE Prazosin HCl (Prazosin Hcl 1 Mg Capsule) 4 mg PO BEDTIME [facility]; Protocol Last Admin: 10/12/24 21:26 Dose: 4 mg Documented By: TEODORO Quetiapine Fumarate (Quetiapine Fumarate 200 Mg Tablet) 200 mg PO BEDTIME [facility] Last Admin: 10/12/24 21:26 Dose: 200 mg Documented By: TEODORO Sodium Chloride (0.9 % Sodium Chloride Flush 3 Ml Syringe) 3 ml IVFLUSH QSHIFT [facility] Last Admin: 10/13/24 07:47 Dose: 3 ml Documented By: NAOMI Zolpidem Tartrate (Zolpidem Tartrate 5 Mg Tablet) 10 mg PO BEDTIME PRN PRN Reason: Insomnia Last Admin: 10/12/24 22:43 Dose: 10 mg Documented By: TEODORO Labs 10/10/24 04:15 10/12/24 06:37 Assessment and Plan (1) Suicide attempt: Status: Acute Plan 38-year-old male with pertinent history of polysubstance IVDU, history of endocarditis and septic pulmonary embolism, history of septic arthritis of the knee, mood disorder, tobacco use disorder, asthma not on home oxygen who was brought to the emergency department after intentional opiate overdose. Acute toxic encephalopathy due to intentional overdose of heroin as suicidal attempt Resolved with intranasal Narcan. sitter. CARE team> plan for IPLOC Acute rhabdomyolysis, nontraumatic nonexertional. Resolved In the setting of toxins. CPK peaked at 9865 normal renal function s/p IV crystalloid resuscitation. Elevated troponin likely secondary to rhando Given 1 dose of therapeutic Lovenox in the ER. no cardiology intervention needed Prolonged QTC Giving IV potassium. Keep potassium above 4 and magnesium above 2 Polysubstance use disorde Monitor for withdrawal. Consulting Addiction Team Elevated transaminases in the setting of rhabdo Mood disorder Psych to optimize Tobacco use disorder NRT DVT prophylaxis: Lovenox Attending Dr. Cooper Full code Quality Stroke Does the patient have a stroke diagnosis?: No VTE Prior VTE?: No VTE Risk Level:: Medical - moderate - high VTE Device Contraindication: Treatment Not Indicated VTE Drug Contraindication: N/A - Med Ordered
[2024-10-13 10:52] VITALS: BP 140/83; PULSE 82; RESP 18; TEMP 36.5; O2SAT 95
--- NOTE | 2024-10-13 10:57 | MHC.CM.PN ---
Per ROUNDS discussion, Patient is medically cleared for dc pending the location of an IPLOC bed. CM will follow.
--- NOTE | 2024-10-13 12:41 | P.DS_ITS ---
DS: Providers Provider Date of Service: 10/13/24 Date of admission: 10/09/24 21:19 Date of discharge: 10/13/24 Primary care physician: Raquel Gao MD Consults: 10/09/24 21:24 Consult to Cardiology Routine Consulting Provider: [facility] Reason for consultation: elevated troponin Has provider been notified: Yes 10/09/24 21:26 Addiction Medicine Routine Consulting Provider: Addiction Covering Reason for consultation: Opioid use disorder 10/09/24 21:30 Consult for Sitter Routine Reason for consultation: SI 10/09/24 23:38 Consult to Psychiatry Routine Consulting Provider: [facility] Reason for consultation: Optimize antidepressants, SI 10/12/24 07:47 Consult to Care Team Routine Comment: Reason for consultation: medically clear DS: Diagnosis Discharge Diagnosis (1) Suicide attempt: Status: Acute DS: Summary Hospital Course Hospital Course: History and physical as per admitting provider. This has a 38-year-old male with pertinent history of polysubstance IVDU, history of endocarditis and septic pulmonary embolism, history of septic arthritis of the knee, mood disorder, tobacco use disorder, asthma not on home oxygen who was brought to the emergency department after intentional opiate overdose. Patient was just out of [facility] yesterday. States he was supposed to be with the program but that did not go through. He felt depressed, upset and hopeless. Patient states he wanted to end his life on the day of presentation and injected 10 bags of heroin. He woke up in an alley when an unknown female told him that he was given 4 doses of intranasal Narcan. Continues to have suicidal ideation as he feels depressed. No fever, chills, chest pain, palpitations, shortness of breath, abdominal pain, changes in urinary or bowel habits In the emergency department, serum creatinine kinase and troponin found to be elevated. CTA negative for PE. 38-year-old man admitted for acute toxic encephalopathy secondary to intentional overdose of heroin as suicidal attempt. Resolved with intra and nasal Narcan on seen. Patient was also noted to have acute rhabdomyolysis, CPK peaked at 9865, down to normal limits at this time after IV crystalloid resuscitation. Renal function rib pain normal during the hospitalization. He was noted to have elevated troponin likely secondary to the rhabdomyolysis he was given 1 dose of therapeutic Lovenox in the ER, seen by Cardiology who did not think he required any cardiac intervention. He was noted to have prolonged QTC, he was given IV potassium and potassium has remained normal. The transaminitis was also likely secondary to rhabdomyolysis. At this time plan for patient will be to transfer to for psychiatric care. Polysubstance abuse. No withdrawal during hospitalization Mental health. Psychiatric treatment at discharge. Tobacco use. Nicotine replacement therapy as needed Time Attestation Discharge Coordination Time (in mins): 40 Quality: Safe Use of Opioids Does Pt have an Active Cancer Diagnosis on the Problem List?: No Quality: Stroke Does the patient have a stroke diagnosis?: No Physical Exam Vital Signs: Vital Signs: Last Vital Signs Temp 97.7 F 10/13/24 10:52 Pulse 82 10/13/24 10:52 Resp 18 10/13/24 10:52 BP 140/83 H 10/13/24 10:52 Pulse Ox 95 10/13/24 10:52 O2 Del Method Room Air 10/13/24 10:52 BMI result Body Mass Index 32.9 Appearing in no acute distress head is normocephalic atraumatic eyes pupils are PERRLA sclera is anicteric mouth throat mucous membranes are intact and moist neck is supple no lymphadenopathy, no JVD noted lung sounds are clear to auscultation heart regular rate rhythm, clear S1, S2 positive bowel sounds, abdomen is soft, nontender neuro patient is alert x3, no focal deficits DS: Data Data Completed and Pending Completed studies during hospitalization [Text1]: Procedures Detoxification Services for Substance Abuse Treatment (11/13/21) Drainage of Left Knee Joint, Percutaneous Approach (06/11/20) Drainage of Right Ankle Joint, Open Approach (07/10/22) Drainage of Right Ankle Joint, Percutaneous Approach (07/10/22) Excision of Right Ankle Joint, Open Approach (07/10/22) Insertion of Infusion Device into Superior Vena Cava, Percutaneous Approach (06/11/20) Irrigation of Joints using Irrigating Substance, Percutaneous Endoscopic Approach (06/11/20) Ultrasonography of Superior Vena Cava, Guidance (06/11/20) Labs on day of discharge: Preliminary micro results at discharge 10/09/24 16:28 Blood Culture - Preliminary Blood - Venous No growth after 48 hours. 10/09/24 16:26 Blood Culture - Preliminary Blood - Venous No growth after 48 hours. Discharge Plan Discharge Anticipated Discharge Date/Time: 10/13/24 12:38 Patient Disposition: Xfer Psychiatric Hosp Discharge Diagnosis: Intentional overdose Referrals: Raquel Gao MD [Primary Care Provider] - 1 Week Discharge Medications: Continued docusate sodium 100 mg capsule 100 mg PO BID PRN (Reason: Constipation) methadone [Methadose] 10 mg/mL concentrate 175 mg PO DAILY Rx Instructions: Partial Fill upon patient request. quetiapine [Seroquel] 200 mg Tablet 200 mg PO BEDTIME famotidine 20 mg Tablet 20 mg PO BID prazosin 2 mg Capsule 4 mg PO BEDTIME gabapentin 800 mg tablet 800 mg PO TID 30 Days Qty: 90 0RF buspirone 30 mg tablet 30 mg PO TID 30 Days Qty: 90 0RF amitriptyline 25 mg tablet 25 mg PO BEDTIME 30 Days Qty: 30 0RF Discharge Orders: Discharge Order (Routine); Ordered 10/13/24 Ordered By: Temitope Malik Diet: Advance to usual diet Activity on Discharge: As tolerated Stand Alone Forms: Patient Portal Discharge page Print Language: Frisian Care Plan Goals: Transfer to psychiatric floor for mental health care Health Concerns: Intentional overdose Plan of Treatment: Follow up with primary care provider as needed Assessment: See discharge summary
== END 2024-10-13 15:07 | DRG 817 ==
LOC: HO.ED 18:33 → HO.EDOVER 21:23 → HO.IMC 10-11 14:17
PROVIDERS: Emergency Medicine; Admitting Provider Student in an Organized Health Care Education/Training Program; Emergency Provider Internal Medicine; PCP Family Medicine; Visit Provider Nurse Practitioner Acute Care
DX: T40.1X2A Poisoning by heroin, intentional self-harm, initial encounter (principal); G92.8 Other toxic encephalopathy; M62.82 Rhabdomyolysis; R94.31 Abnormal electrocardiogram [ECG] [EKG]; F19.10 Other psychoactive substance abuse, uncomplicated; F11.20 Opioid dependence, uncomplicated; F17.210 Nicotine dependence, cigarettes, uncomplicated; Z71.6 Tobacco abuse counseling; Z20.822 Contact with and (suspected) exposure to COVID-19; Z79.899 Other long term (current) drug therapy
CPT/HCPCS: 0241U; 36415; 71045; 71275; 80048; 80076; 80143; 80179; 80307; 82550; 83605; 83690; 83735; 83880; 84484; 85025; 85027; 87040; 93005; 93306; 94640; 99285; J0696; J1650; J2060; J2405; J3475; J3480; J7120; Q9957; Q9967; S9485

== ENCOUNTER → 2024-10-09 15:11 | Outpatient (BNV) | payer MEDICAID, SELFPAY | PROVIDERS: Emergency Provider Emergency Medicine; PCP Family Medicine; Visit Provider Radiology Diagnostic Radiology | DX: R00.0 Tachycardia, unspecified (principal); R06.09 Other forms of dyspnea; R05.9 Cough, unspecified | CPT/HCPCS: 71045; 71275 ==

== ENCOUNTER 2024-10-09 21:19 | Outpatient (BNV) | payer MEDICAID, SELFPAY | END 2024-10-11 07:00 | PROVIDERS: Admitting Provider Student in an Organized Health Care Education/Training Program; Emergency Provider Internal Medicine; PCP Family Medicine; Visit Provider Internal Medicine Cardiovascular Disease | DX: I34.0 Nonrheumatic mitral (valve) insufficiency (principal) | CPT/HCPCS: 93306 ==

== ENCOUNTER 2024-10-09 21:19 | Outpatient (BNV) | payer MEDICAID, SELFPAY | END 2024-10-10 08:00 | PROVIDERS: Admitting Provider Student in an Organized Health Care Education/Training Program; Emergency Provider Internal Medicine; PCP Family Medicine; Visit Provider Internal Medicine Cardiovascular Disease | DX: M62.82 Rhabdomyolysis (principal); I45.81 Long QT syndrome | CPT/HCPCS: 93010 ==

== ENCOUNTER → 2024-10-09 21:19 | Outpatient (BNV) | payer MEDICAID, SELFPAY | PROVIDERS: Admitting Provider Student in an Organized Health Care Education/Training Program; Emergency Provider Internal Medicine; PCP Family Medicine; Visit Provider Nurse Practitioner Psychiatric/Mental Health | DX: F11.20 Opioid dependence, uncomplicated (principal) | CPT/HCPCS: 99221 ==

== ENCOUNTER → 2024-10-09 21:19 | Outpatient (BNV) | payer MEDICAID, SELFPAY | PROVIDERS: Admitting Provider Student in an Organized Health Care Education/Training Program; Emergency Provider Internal Medicine; PCP Family Medicine; Visit Provider Student in an Organized Health Care Education/Training Program | DX: T14.91XA Suicide attempt, initial encounter (principal) | CPT/HCPCS: 99223; 99232 ==

== ENCOUNTER → 2024-10-09 21:19 | Outpatient (BNV) | payer MEDICAID, SELFPAY | PROVIDERS: Admitting Provider Student in an Organized Health Care Education/Training Program; Emergency Provider Internal Medicine; PCP Family Medicine; Visit Provider Internal Medicine Cardiovascular Disease | DX: T50.902A Poisoning by unspecified drugs, medicaments and biological substances, intentional self-harm, initial encounter (principal); R79.89 Other specified abnormal findings of blood chemistry | CPT/HCPCS: 93010; 99222 ==

== ENCOUNTER 2024-10-13 15:57 | Outpatient (BNV) | payer MEDICAID, SELFPAY | END 2024-10-14 15:30 | PROVIDERS: Admitting Provider Psychiatry & Neurology Psychiatry; Visit Provider Radiology Diagnostic Radiology | DX: M19.071 Primary osteoarthritis, right ankle and foot (principal); M25.471 Effusion, right ankle | CPT/HCPCS: 73610 ==

== ENCOUNTER 2024-10-13 15:57 | Outpatient (BNV) | payer MEDICAID, SELFPAY | END 2024-10-20 10:15 | PROVIDERS: Admitting Provider Psychiatry & Neurology Psychiatry; Visit Provider Internal Medicine | DX: I42.2 Other hypertrophic cardiomyopathy (principal); I45.81 Long QT syndrome; R00.0 Tachycardia, unspecified | CPT/HCPCS: 93010 ==

== ENCOUNTER 2024-10-13 15:57 | Outpatient (BNV) | payer MEDICAID, SELFPAY | END 2024-10-20 09:10 | PROVIDERS: Admitting Provider Psychiatry & Neurology Psychiatry; Visit Provider Radiology Diagnostic Radiology | DX: R91.8 Other nonspecific abnormal finding of lung field (principal); R07.82 Intercostal pain | CPT/HCPCS: 71046; 71250 ==

== ENCOUNTER 2024-10-13 15:57 | Outpatient (BNV) | payer MEDICAID, SELFPAY | END 2024-10-16 20:10 | PROVIDERS: Admitting Provider Psychiatry & Neurology Psychiatry; Visit Provider Radiology Diagnostic Radiology | DX: K56.41 Fecal impaction (principal) | CPT/HCPCS: 74018 ==

== ENCOUNTER 2024-10-13 15:57 | Inpatient (IN) | payer OTHER, SELFPAY ==
--- NOTE | ~2024-10-13 | CT_ITS ---
EXAMINATION: CT CHEST WITHOUT CONTRAST CLINICAL INFORMATION: Evaluate for pulmonary hemorrhage versus multifocal pneumonia. COMPARISON: CTA chest 10/09/2024 TECHNIQUE: Multidetector volumetric CT imaging of the chest was done. Axial MIP volume rendering provided. Sagittal and coronal reformatted images were obtained. This CT examination was performed using dose optimization techniques as appropriate, variously including the following: *Automated exposure control *Adjustment of mA and/or kV according to patient size (this includes techniques or standardized protocols for targeted exams where dose is matched to indication/reason for exam; i.e. extremities or head) *Use of iterative reconstruction technique DLP: 209 mGy/cm. FINDINGS: BONE DRIER: Well-inflated lungs. LUNGS: The lungs are well-inflated. There is reticular nodular and is ill-defined opacities throughout the right upper, middle and lower lobe . There is groundglass opacities as well toward the right lung. Relatively the left lung is clear. MEDIASTINUM: Size and the great vessels are normal caliber. Thyroid lobes are symmetric and normal. The central tracheal and bronchial airway is widely patent. No bronchiectasis or debris seen especially in the right lung CORONARY ARTERY CALCIFICATION: None visualized on this study. PLEURA: There is no pleural effusion, thickening or calcification. AXILLA: No lymphadenopathy. UPPER ABDOMEN: Visualized liver, spleen, pancreas and bilateral adrenal glands are unremarkable. OSSEOUS STRUCTURES: There is vertebral body fusion involving T12, L1 and L2 vertebra. There is likely L1 hemivertebral body. CT/CT chest wo IV con IMPRESSION: There is a interval significant abnormality involving the entire right lung. Differential diagnosis includes interstitial pneumonitis, edema, parenchymal infiltrates or combination. The left lung is clear. No abnormal mediastinal or axillary lymphadenopathy. Fleischner guidelines were followed. Electronically signed by: Rodriguez Rees MD 10/20/2024 01:21 PM [facility]
--- NOTE | ~2024-10-13 | XR_ITS ---
EXAMINATION: XR ANKLE, RIGHT CLINICAL INFORMATION: edema, pain, difficulty walking COMPARISON: 09/14/2022. MRI right ankle 07/31/2022. TECHNIQUE: AP, lateral, and mortise views of the right ankle. FINDINGS: No definite acute fracture or dislocation. There is asymmetric appearance to the ankle mortise with medial widening and lateral narrowing. Findings suggest ankle instability. There is sclerosis of the lateral talar dome with mild irregularity, suggesting possible osteochondral lesion. AVN is not excluded. There is spurring abutting the lateral malleolus, and complete joint space loss between the lateral process of the talus and the articular fibular head, with subchondral sclerosis, cystic changes, and spurring. There are moderate tibiotalar joint degenerative changes with prominent marginal osteophytes most notable anteriorly. There is mild spurring of the posterior talar process. There is subchondral sclerosis abutting the posterior facet of the subtalar joint, involving the calcaneus and talus. Suspect a pes planus deformity. There is diffuse soft tissue edema and swelling surrounding the ankle joint, with a probable ankle joint effusion seen on the lateral projection. XR/XR ankle RT min 3V IMPRESSION: 1. No acute fracture or dislocation. 2. Asymmetric ankle mortise with medial widening and lateral narrowing, suggesting instability. This has progressed significantly. There is a possible osteochondral lesion versus focus of AVN involving the lateral talar dome. 3. Progressive moderate tibiotalar and fibulotalar joint degenerative arthropathy, with complete loss of the fibulotalar joint space as detailed. 4. Subchondral sclerosis abutting the posterior facet subtalar joint. 5. Diffuse soft tissue swelling with ankle joint effusion. Electronically signed by: Narinder Sarabia MD 10/14/2024 04:02 PM [facility]
--- NOTE | ~2024-10-13 | XR_ITS ---
EXAMINATION: XR CHEST CLINICAL INFORMATION: O2 Sat 90, pain r rib COMPARISON: October 09, 2024 TECHNIQUE: 2 views of the chest were obtained. FINDINGS: Indistinct margins in the perihilar regions and prominence of the interstitial markings. No hyperinflation. No pleural effusion. No pneumothorax. Cardiomediastinal silhouette is normal in size. Mild multilevel thoracic spondylosis. XR/XR chest 2V IMPRESSION: Pulmonary edema versus multifocal pneumonia versus pneumonitis versus pulmonary hemorrhage among other etiologies. Electronically signed by: Esa Anders MD 10/20/2024 09:54 AM EST
--- NOTE | ~2024-10-13 | XR_ITS ---
CLINICAL HISTORY: Reports no BM in 12 days 1 view abdomen Comparison: None Findings: No pneumoperitoneum or pneumatosis. No abnormal calcifications. No acute fractures. IMPRESSION: Moderately severe fecal retention within the colon. Desiccated appearance of fecal material within the distal colon suggesting constipation. This document has been electronically signed by: Dolores Lopez MD on 10/17/2024 15:17:21
[2024-10-13 04:45] VITALS: BP 137/95; PULSE 72; TEMP 36.4; O2SAT 95
[2024-10-13 16:45] VITALS: BMI 37.5
--- OUTSIDE RECORDS SUMMARY | 2024-10-13 18:18 | XMS_ITS | Clinical Summary ---
Author Organization [facility] it Address [address] [place] [address] Care Team Providers Care Medical Registrar Name Role Phone Unavailable Primary Care Provider Unavailabl e Social History Tobacco Use Types Packs/Day Years Used Date Smoking Tobacco: Never Assessed Sex and Gender Information Value Date Recorded Sex Assigned at Not on file Gender Identity Not on file Sexual Orientation Not on file Plan of Treatment Health Maintenance Due Date Last Done Comments DTaP,Tdap,and Td Vaccines (1 - Tdap) 12/09/2003 Hepatitis B Vaccines (1 of 3 - 19+ 3-dose series) 12/09/2003 Cholesterol Screening (Lipid Panel) 08/20/2022 Depression Screening 08/20/2022 HIV Screening 08/20/2022 Hepatitis C Screening 08/20/2022 Social Influencers of Health Screening 08/20/2022 COVID-19 Vaccine ( - 2023-2 5 season) 2024 Influenza Vaccine (#1) 2024 HIB Vaccines Aged Out No longer eligi ble based on patient's age to complete this topic HPV Vaccines Aged Out No longer eligi ble based on patient's age to complete this topic Hepatitis A Vaccines Aged Out No long er eligible based on patient's age to complete this topic IPV Vaccines Aged Out No longer eligi ble based on patient's age to complete this topic MMR Vaccines Aged Out No longer eligi ble based on patient's age to complete this topic Meningococcal ACWY Vaccine Aged Out N o longer eligible based on patient's age to complete this topic Pneumococcal Vaccine: Pediat rics (0 to 5 Years) and At-Risk Patients (6 to 64 Years) Aged Out No longer eligible b ased on patient's age to complete this topic RSV Immunization Patients Un romain 20 months Aged Out No longer eligible b ased on patient's age to complete this topic Varicella Vaccines Aged Out No longer eligible based on patient's age to complete this topic
--- OUTSIDE RECORDS SUMMARY | 2024-10-13 18:19 | XMS_ITS | Encounter Summary ---
Author Organization [employer] Address [address] [place] [address] [address] [place] [address] Care Team Providers Care Degreasing Solution Reclaimer Name Role Phone Raquel Gao MD Primary Care Provider [phone] Reason for Visit * Reason Comments Med Refill Encounter Details Date Type Department Care Team (Late st Contact Info) Description 07/22/2023 Refill [facility] [address] [place] [address] Raquel Gao MD [address] [place] [address] Post-traumatic stress disorder, chronic Social History Tobacco Use Types Packs/Day Years Used Date Smoking Tobacco: Former Cigarettes Q uit: 02/17/2023 Sex and Gender Information Value Date Recorded Sex Assigned at Male 09/27/2022 10:02 AM EST Legal Sex Male 8:40 PM EDT Gender Identity Male 09/27/2022 10:02 AM EST Sexual Orientation Don't know 09/27/2022 10 :02 AM EST documented as of this encounter Miscellaneous Notes * Telephone Encounter - Sabrina Mina - 07/25/2023 10:32 AM EDT No longer active phone number for patient on file. L/VM On secondary. documented in this encounter Plan of Treatment Not on file documented as of this encounter Visit Diagnoses Diagnosis Post-traumatic stress disorder, chronic documented in this encounter Care Teams Degreasing Solution Reclaimer Relationship Specialty Start Date End Date Raquel Gao MD [address] [place] [address] PCP - General Family Medicine 09/30/22 documented as of this encounter
--- OUTSIDE RECORDS SUMMARY | 2024-10-13 18:19 | XMS_ITS | Encounter Summary ---
Author Organization [email or web address] Address [address] [place] [address] [address] [place] [address] Care Team Providers Care Front Office Assistant Name Role Phone Raquel Gao MD Primary Care Provider [phone] Reason for Visit * Reason Onset Date Comments Med Refill 10/06/2024 Encounter Details Date Type Department Care Team (Late st Contact Info) Description 10/06/2024 Telephone [facility] [address] [place] [address] Raquel Gao MD [address] [place] [address] Med Refill Social History Tobacco Use Types Packs/Day Years [...] encounter Miscellaneous Notes * Telephone Encounter - Raquel Gao MD - 10/08/2024 1:49 PM EST This is not an appropriate request. I have no idea which medications this patient wants. * Telephone Encounter - Bria Gonzalez - 10/06/2024 3:59 PM EST To ZEN to determine what is appropriate and send. * Telephone Encounter - Zenaida oJrdan 10/06/2024 3:02 PM EST Patient called. Patient would like his medications send to the following pharmacy Friday [id number] - [place], [place] - [address] [place] [address] [facility] [[id number]] documented in this encounter Plan of Treatment Not on file documented as of this encounter Visit Diagnoses Not on filedocumented in this encounter Care Teams Front Office Assistant Relationship Specialty Start Date End Date Raquel Gao MD [address] [place] [address] PCP - General Family Medicine 09/30/22 documented as of this encounter
--- OUTSIDE RECORDS SUMMARY | 2024-10-13 18:19 | XMS_ITS | Encounter Summary ---
Author Organization [employer] Address [address] [facility] [address] [place] [address] Care Team Providers Care Veneer Grader Name Role Phone Raquel Gao MD Primary Care Provider [phone] Encounter Details Date Type Department Care Team (Late st Contact Info) Description 08/13/2023 Orders Only [facility] [address] [place] [address] Raquel Gao MD [address] [place] [address] Social History Tobacco Use Types Packs/Day Years Used Date Smoking Tobacco: Former Cigarettes Q uit: 02/17/2023 Sex and Gender Information Value Date Recorded Sex Assigned at Male 09/27/2022 10:02 AM EST Legal Sex Male 8:40 PM EDT Gender Identity Male 09/27/2022 10:02 AM EST Sexual Orientation Don't know 09/27/2022 10 :02 AM EST documented as of this encounter Plan of Treatment Not on file documented as of this encounter Procedures Procedure Name Priority Date/Time Associated Diagnosis Comments HEMOGLOBIN A1C Routine 08/13/2023 LIPID PANEL, STANDARD Routine 08/13/2023 documented in this encounter Results * Hemoglobin A1c (08/13/2023) Blood Venous blood specimen / Unknown Raquel Gao MD LAB BLOOD ORDERABLES Edited Re sult - Final * Lipid Panel, Standard (08/13/2023) Blood Venous blood specimen / Unknown Raquel Gao MD LAB BLOOD ORDERABLES Edited Re sult - Final documented in this encounter Visit Diagnoses Not on filedocumented in this encounter Care Teams Veneer Grader Relationship Specialty Start Date End Date Raquel Gao MD [address] [place] [address] PCP - General Family Medicine 09/30/22 documented as of this encounter
--- OUTSIDE RECORDS SUMMARY | 2024-10-13 18:19 | XMS_ITS | Encounter Summary ---
Author Organization [employer] Address [address] [place] [address] [address] [place] [address] Care Team Providers Care Shoe Dyer Name Role Phone Raquel Gao MD Primary Care Provider [phone] Encounter Details Date Type Department Care Team (Late st Contact Info) Description 10/11/2024 Telephone [facility] [facility] [address] [place], [place] [id number] Raquel Gao MD [address] [place] [address] Social History Tobacco Use Types Packs/Day Years [...] encounter Miscellaneous Notes * Telephone Encounter - Pamela Andrews LPN - 10/13/2024 8:11 AM EST Call placed to pt. The number you dialed could not be reached . * Telephone Encounter - Pamela Andrews LPN - 10/12/2024 8:17 AM EST Call placed to pt. The number you dialed could not be reached . * Telephone Encounter - Pamela Andrews LPN - 10/11/2024 11:48 AM EST Call placed to patient to discuss recent admission/hospitalization and offer office visit. Date of hospitalization: 10/09/24 Discharge date: Pt may have been admitted Hospital: [facility] Records on file: partial Discharge diagnosis: psych symptoms, SI, substance abuse Patient described events as: upset and hopeless, injected 10 bags of heroin, overdose Follow-up scheduled: attempted to call pt. The number you dialed could not be reached . * Telephone Encounter - Pamela Andrews LPN - 10/11/2024 11:42 AM EST Images from the original note were not included. Pamela Torres to [facility] 10/11/24 11:37 AM Pt was seen at [facility] 10/09, note attached. documented in this encounter Plan of Treatment Not on file documented as of this encounter Visit Diagnoses Not on filedocumented in this encounter Care Teams Shoe Dyer Relationship Specialty Start Date End Date Raquel Gao MD [address] [facility] [place] [address] PCP - General Family Medicine 09/30/22 documented as of this encounter
--- OUTSIDE RECORDS SUMMARY | 2024-10-13 18:19 | XMS_ITS | Clinical Summary ---
Author Organization [employer] Address [address] [place] [address] [address] [place] [address] Care Team Providers Care Diesel Maintenance Technician Name Role Phone Raquel Gao MD Primary Care Provider [phone] Allergies Active Allergy Reactions Criticality Noted Date Comments Haloperidol Other 01/20/2023 [place] Olanzapine Dizziness 01/20/2023 Feels like I'm on an acid trip Medications * This document contains information received from the source organization and may not represent a complete record from that organization. nicotine (Nicoderm, Step 1) 21 MG/24HR patch USE 1 PATCH ON THE SKIN EVERY DAY FOR 28 DAYS 30 patch 02/27/20 23 Active Ventolin HFA 108 (90 Base) MCG/ACT inhalerIndication s:Chronic bronchitis, unspecified chronic bronchitis type (CMS/HCC) Inhale 2 puffs every 4 (four) hours if needed for shortness of breath. 54 g 02/27/20 23 Active cloNIDine (Catapres) 0.1 MG tabletIndications :Post-traumatic stress disorder, chronic Take 1 tablet (0.1 mg) by mouth if needed at bedtime (sleep) for up to 28 days. 28 tablet 06/23/20 23 Active amphetamine-dextr oamphetamine (Adderall) 30 MG tabletIndications :ADHD, impulsive type Take 1 tablet (30 mg) by mouth with lunch. 30 tablet 10/07/19 24 Active amphetamine-dextr oamphetamine XR (Adderall XR) 30 MG 24 hr capsuleIndication s:ADHD, impulsive type Take 1 capsule (30 mg) by mouth in the morning. Do not crush or chew. 30 capsule 10/07/19 24 Active busPIRone (Buspar) 30 MG tabletIndications :Post-traumatic stress disorder, chronic Take 1 tablet (30 mg) by mouth 3 times daily. 90 tablet 10/07/19 24 Active gabapentin (Neurontin) 800 MG tabletIndications :Pyogenic arthritis of ankle, due to unspecified organism, unspecified laterality (CMS/HCC) Take 1 tablet (800 mg) by mouth 3 times daily. 90 tablet 10/07/19 24 Active nicotine polacrilex (Nicorette) 4 MG gumIndications:Ni cotine dependence, cigarettes, uncomplicated CHEW 1 PIECE OF GUM BY MOUTH FOR 30 MINUTES NEEDED EVERY 2 TO 4 HOURS NEEDED FOR CRAVINGS 100 each 1 10/07/19 24 Active QUEtiapine (SEROquel) 100 MG tablet TAKE 2 TABLETS (200 MG) BY MOUTH AT BEDTIME FOR 28 DAYS. 56 tablet 1 10/24/19 24 Active QUEtiapine (SEROquel) 300 MG tabletIndications :Bipolar disorder with depression (CMS/HCC) TAKE 1 TABLET BY MOUTH AT BEDTIME 30 tablet 10/28/19 24 Active buPROPion XL (Wellbutrin XL) 150 MG 24 hr tabletIndications :Post-traumatic stress disorder, chronic TAKE 1 TABLET (150 MG) BY MOUTH IN THE MORNING 30 tablet 10/28/19 24 Active amitriptyline (Elavil) 25 MG tabletIndications :Post-traumatic stress disorder, chronic TAKE 1 TABLET BY MOUTH AT BEDTIME 30 tablet 10/29/19 24 Active prazosin (Minipress) 2 MG capsuleIndication s:Post-traumatic stress disorder, chronic TAKE 1 CAPSULE BY MOUTH AT BEDTIME 90 capsule 01/06/20 24 Active zolpidem (Ambien) 10 MG tabletIndications :Acute stress reaction Take 1 tablet (10 mg) by mouth if needed at bedtime for sleep. 30 tablet 10/07/19 24 025 Discontinued omeprazole OTC (PriLOSEC OTC) 20 MG EC tabletIndications :Gastroesophageal reflux disease without esophagitis Take 1 tablet (20 mg) by mouth if needed in the morning and at bedtime (heartburn). Do not crush, chew, or split. 180 tablet 1 10/10/19 24 025 Discontinued Active Problems Problem Noted Date Diagnosed Date Gastroesophageal reflux disease without esophagi tis 10/07/2023 Drug induced constipation 10/07/2023 Acute stress reaction 04/02/2023 Chronic bronchitis 01/29/2023 Extreme poverty 01/29/2023 ADHD, impulsive type 01/22/2023 Bipolar disorder with depression 01/22/2023 Nicotine dependence, cigarettes, uncomplicated 0 01/22/2023 Opiate dependence, continuous 01/22/2023 Post-traumatic stress disorder, chronic 01/23/20 Pyogenic arthritis of ankle 01/22/2023 Sheltered homelessness 01/22/2023 Encounters Date Type Department Care Team Description 10/12/2024 Telephone [facility] MEDICAL [address] [place] [address] Raquel Gao MD Care Coordination 10/11/2024 Telephone [facility] [address] [place] [address] Raquel Gao MD 10/06/2024 Telephone [facility] MEDICAL [address] [place] [address] Raquel Gao MD Med Refill 10/05/2024 Telephone [facility] MEDICAL [address] [place] [address] Raquel Gao MD 09/09/2024 Telephone [facility] MEDICAL [address] [place] [address] Raquel Gao MD assistance after release from Last 3 Months Family History Relation Name Status Comments Father Mother Social History Tobacco Use Types Packs/Day Years Used Date Smoking Tobacco: Former Cigarettes Q uit: 02/17/2023 Tobacco Cessation:Counseling Given: Not Answered Sex and Gender Information Value Date Recorded Sex Assigned at Male 09/27/2022 10:02 AM EST Legal Sex Male 8:40 PM EDT Gender Identity Male 09/27/2022 10:02 AM EST Sexual Orientation Don't know 09/27/2022 10 :02 AM EST Last Filed Vital Signs Vital Sign Reading Time Taken Comments Blood Pressure 143/81 06/23/2023 12:53 PM EDT Pulse 76 06/23/2023 12:53 PM EDT Temperature 37.2 ??C (98.9 ??F) 06/23/2023 12:53 PM E DT Respiratory Rate 18 06/23/2023 12:53 PM EDT Oxygen Saturation 96% 03/26/2023 9:30 AM EDT Inhaled Oxygen Concentration - - Weight 95.3 kg (210 lb) 06/23/2023 12:53 PM EDT Height 170.2 cm (5' 7 ) 06/23/2023 12:53 PM EDT Body Mass Index 32.89 06/23/2023 12:53 PM EDT Plan of Treatment Health Maintenance Due Date Last Done Comments Depression Screening 1984 HIV Screening 1984 SDOH Screening 1984 Pneumococcal Vaccine: Pediat rics (0 to 5 Years) and At-Risk Patients (6 to 64 Years) (1 of 2 - PCV) 1990 Alcohol/Substance Use Screening 1996 Family Planning (PISQ) 12/09/1999 Hepatitis C Screening 2002 DTaP/Tdap/Td Vaccines (1 - Tdap) 12/09/2003 Hepatitis A Vaccines (1 of 2 - Risk 2-dose series) 12/09/2003 Hepatitis B Vaccines (1 of 3 - 19+ 3-dose series) 12/09/2003 Tobacco Screening 03/26/2024 03/26/2023 COVID-19 Vaccine (1 - 2023-2 5 season) 2024 Influenza Vaccine (#1) 2024 Lipid Panel 08/13/2028 08/13/2023 Zoster Vaccines (1 of 2) 2034 RSV Patients and Pa tients Aged 60 years or older (1 - 1-dose 75+ series) 12/09/2059 HIB Vaccines Aged Out No longer eligi ble based on patient's age to complete this topic HPV Vaccines Aged Out No longer eligi ble based on patient's age to complete this topic IPV Vaccines Aged Out No longer eligi ble based on patient's age to complete this topic Meningococcal Vaccine Aged Out No jyoti julianna eligible based on patient's age to complete this topic RSV under 20 months Aged Out No longe r eligible based on patient's age to complete this topic Rotavirus Vaccines Aged Out No longer eligible based on patient's age to complete this topic Procedures Procedure Name Priority Date/Time Associated Diagnosis Comments LIPID PANEL, STANDARD Routine 08/13/2023 from Last 3 Months or Most Recently Relevant to Health Maintenance Results * Lipid Panel, Standard (08/13/2023) Blood Venous blood specimen / Unknown Raquel Gao MD LAB BLOOD ORDERABLES Edited Re sult - Final from Last 3 Months or Most Recently Relevant to Health Maintenance Insurance [employer] C3 Care Teams Diesel Maintenance Technician Relationship Specialty Start Date End Date Raquel Gao MD [address] [place] [address] PCP - General Family Medicine 09/30/22
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
--- OUTSIDE RECORDS SUMMARY | 2024-10-13 18:19 | XMS_ITS | Encounter Summary ---
Author Organization [employer] Address [address] [place] [address] [address] [place] [address] Care Team Providers Care Mobile Nurse Name Role Phone Raquel Gao MD Primary Care Provider [phone] Reason for Visit * Reason Onset Date Comments Care Coordination 10/12/2024 Encounter Details Date Type Department Care Team (Late st Contact Info) Description 10/12/2024 Telephone [facility] [address] [place] [address] Raquel Gao MD [address] [place] [address] Care Coordination Social History Tobacco Use Types Packs/Day Years [...] Telephone Encounter - Raquel Gao MD - 10/12/2024 12:46 PM EST Called and spoke to clinician. Pt is inpatient at [facility] for [facility] and will be transferring up to [facility] when cleared. Discussed f/u plan. * Telephone Encounter - Ariella Mayers - 10/12/2024 9:12 AM EST Clinician from hospital called, would like to f/u with to discuss substance use after discharge [phone] Option 2 documented in this encounter Plan of Treatment Not on file documented as of this encounter Visit Diagnoses Not on filedocumented in this encounter Care Teams Mobile Nurse Relationship Specialty Start Date End Date Raquel Gao MD [address] [place] [address] PCP - General Family Medicine 09/30/22 documented as of this encounter
--- OUTSIDE RECORDS SUMMARY | 2024-10-13 18:19 | XMS_ITS | Encounter Summary ---
Author Organization [employer] Address [address] [place] [address] [address] [place] [address] Care Team Providers Care Orthotic Technician Name Role Phone Raquel Gao MD Primary Care Provider [phone] Encounter Details Date Type Department Care Team (Late st Contact Info) Description 10/05/2024 Telephone [facility] [address] [place] [address] Raquel Gao MD [address] [place] [address] Social History Tobacco Use Types Packs/Day Years [...] encounter Miscellaneous Notes * Telephone Encounter - Ariella Mayers - 10/05/2024 3:15 PM EST [facility] called requesting cb from [phone] Ext [phone], hung up before specifying why documented in this encounter Plan of Treatment Not on file documented as of this encounter Visit Diagnoses Not on filedocumented in this encounter Care Teams Orthotic Technician Relationship Specialty Start Date End Date Raquel Gao MD [address] [place] [address] PCP - General Family Medicine 09/30/22 documented as of this encounter
--- OUTSIDE RECORDS SUMMARY | 2024-10-13 18:19 | XMS_ITS | Encounter Summary ---
Author Organization [employer] Address [address] [facility] 7t [place] [address] Care Team Providers Care Rn Assessment Name Role Phone Raquel Gao MD Primary Care Provider [phone] Reason for Visit * Reason Onset Date Comments assistance after release 09/09/2024 Encounter Details Date Type Department Care Team (Late st Contact Info) Description 09/09/2024 Telephone [facility] [address] [place] [address] Raquel Gao MD [address] [place] [address] assistance after release Social History Tobacco Use Types Packs/Day Years [...] encounter Miscellaneous Notes * Telephone Encounter - Zenaida Tavarez - 09/09/2024 11:22 AM EST Patient called. Patient would like to know if he can get a bed at your location or just until he can get into a nursing home house. Patient is [facility] in [place] with a projected release date of next month. Patient does not want to go back to [facility] as he wants to stay clean. Please assist Phone number listed for patient to be called [facility] [phone] ext [phone]. documented in this encounter Plan of Treatment Not on file documented as of this encounter Visit Diagnoses Not on filedocumented in this encounter Care Teams Rn Assessment Relationship Specialty Start Date End Date Raquel Gao MD [address] [facility] [place] [address] PCP - General Family Medicine 09/30/22 documented as of this encounter
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
--- NOTE | 2024-10-13 19:34 | HE.PHANOTE ---
RE: METHADONE DOSING Patient was transferred from [facility], last dose of 175 mg was given on 10/13/24 @0749.
[2024-10-13 19:42] VITALS: BP 143/92; PULSE 69; TEMP 36.7; O2SAT 95
[2024-10-13 21:23] VITALS: BP 143/92
[2024-10-13] MEDS: Prazosin HCL 1 MG CAPSULE 4 MG PO (21:23)
[2024-10-13] MEDS: Gabapentin 400 MG CAPSULE 800 MG PO (21:24)
[2024-10-13] MEDS: busPIRone HCl 10 MG TABLET 30 MG PO (21:24)
[2024-10-13] MEDS: QUEtiapine Fumarate 200 MG TABLET PO (21:24)
[2024-10-13] MEDS: Famotidine 20 MG TABLET PO (21:24)
[2024-10-13] MEDS: Amitriptyline HCl 25 MG TABLET PO (21:24)
[2024-10-13] MEDS: Mineral Oil/Petrolatum,White 106 GM Tube 1 APPL TOPICAL (21:25)
[2024-10-13] MEDS: Zolpidem Tartrate 5 MG TABLET 10 MG PO (22:01)
[2024-10-14] MEDS: methADONE HCl 20 MG/2 ML ORAL.CONC 175 MG PO (07:39)
[2024-10-14 07:57] VITALS: BP 137/84; PULSE 100; RESP 18; TEMP 36.4; O2SAT 96
[2024-10-14] MEDS: busPIRone HCl 10 MG TABLET 30 MG PO ×3 (08:31→21:08)
[2024-10-14] MEDS: Famotidine 20 MG TABLET PO ×2 (08:31→21:08)
[2024-10-14] MEDS: Gabapentin 400 MG CAPSULE 800 MG PO ×3 (08:31→21:08)
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
[2024-10-14] MEDS: Nicotine Polacrilex 2 MG GUM 4 MG BUCCAL ×3 (14:30→20:19)
[2024-10-14] MEDS: Triamcinolone Acet 0.1 % Cream 15 GM TUBE 1 APPL TOPICAL ×2 (16:12→20:20)
[2024-10-14 20:00] VITALS: BP 134/68; PULSE 74; TEMP 36.6; O2SAT 98
[2024-10-14 21:07] VITALS: BP 134/68
[2024-10-14] MEDS: QUEtiapine Fumarate 200 MG TABLET PO (21:07)
[2024-10-14] MEDS: Prazosin HCL 1 MG CAPSULE 4 MG PO (21:07)
[2024-10-14] MEDS: Amitriptyline HCl 25 MG TABLET PO (21:08)
[2024-10-14] MEDS: Zolpidem Tartrate 5 MG TABLET 10 MG PO (21:56)
[2024-10-15] MEDS: methADONE HCl 20 MG/2 ML ORAL.CONC 175 MG PO (08:01)
[2024-10-15 08:26] VITALS: BP 131/60; PULSE 88; TEMP 37.1; O2SAT 94
[2024-10-15] MEDS: busPIRone HCl 10 MG TABLET 30 MG PO ×3 (11:00→20:55)
[2024-10-15] MEDS: Gabapentin 400 MG CAPSULE 800 MG PO ×3 (11:03→20:54)
[2024-10-15] MEDS: Dextroamphetamine/Amphetamine XR 10 MG CAP.ER.24H 30 MG PO (11:03)
[2024-10-15] MEDS: Mineral Oil/Petrolatum,White 106 GM Tube 1 APPL TOPICAL (11:05)
[2024-10-15] MEDS: Triamcinolone Acet 0.1 % Cream 15 GM TUBE 1 APPL TOPICAL (11:06)
[2024-10-15] MEDS: Famotidine 20 MG TABLET PO ×2 (11:13→20:55)
[2024-10-15] MEDS: Ondansetron ODT 4 MG TAB.RAPDIS TRANSLINGU (11:30)
[2024-10-15] MEDS: Amphetamine Mixed Salts 20 MG TABLET 30 MG PO (15:43)
[2024-10-15] MEDS: Nicotine Polacrilex 2 MG GUM 4 MG BUCCAL (15:45)
--- NOTE | 2024-10-15 16:12 | P.PNPSI_ITS ---
Subjective Subjective Date of Service: 10/15/24 Reason For Visit: Suicidal Subjective Notes: Conditional Voluntary Healthcare Proxy: No Guardianship: No Medical Problems Affecting Mental Status: No Interim History: Pt reports some nausea and vomiting today. He has been resting most of the day. Denies sx may be from med re-establishment. Medication Compliance: Yes Side effects from medications: No Attending Groups: No Review of Systems Acute medical concerns: No Review of Systems Review of Systems Reports some sx of nausea and vomiting Mental Status Exam Mental Status Exam Patient Appearance: Fatigued Patient Orientation: Person, Place, Time and Situation Level of Consciousness: Alert Patient Behavior: Appropriate, Talkative, Cooperative and Good Eye Contact Mood Description: Withdrawn and Depressed Affect Description: Flat Patient Cognition Impaired: No Ability to Follow Directions: Good Speech Pattern: Spontaneous Speech Memory Description: Episodic Impaired Hallucinations: None Delusions: Not Present Thought Process: Rumination Thought Content: positive for Circumstantial and positive for Perseveration Depressive Symptoms: Increased Anxiety, Increased Fatigue and Thoughts of /Suicide Judgement: Fair Diagnostics Vital Signs (24Hr): Vital Signs - 24 hr 10/14/24 20:00 10/14/24 21:07 10/15/24 08:26 Temperature 97.8 F 98.7 F Pulse Rate 74 88 Blood Pressure 134/68 134/68 131/60 Pulse Oximetry 98 94 Oxygen Delivery Method Room Air Room Air BMI result Body Mass Index 37.5 Imaging Radiology Impressions: ITS Impressions Ankle X-Ray 10/14/24 15:30 IMPRESSION: 1. No acute fracture or dislocation. 2. Asymmetric ankle mortise with medial widening and lateral narrowing, suggesting instability. This has progressed significantly. There is a possible osteochondral lesion versus focus of AVN involving the lateral talar dome. 3. Progressive moderate tibiotalar and fibulotalar joint degenerative arthropathy, with complete loss of the fibulotalar joint space as detailed. 4. Subchondral sclerosis abutting the posterior facet subtalar joint. 5. Diffuse soft tissue swelling with ankle joint effusion. Electronically signed by: Narinder Sarabia MD 10/14/2024 04:02 PM [facility] [place] Medications Medications Current Medications Acetaminophen (Acetaminophen 325 Mg Tablet) 325 mg PO Q6H PRN PRN Reason: Headache/Pain Mild Scale (1-3) Acetaminophen (Acetaminophen 325 Mg Tablet) 650 mg PO Q6H PRN PRN Reason: Pain, Moderate(Pain Scale 4-6) Al Hydroxide/Mg Hydroxide (Magnesium Hydrox/Alum Hydrox 30 Ml Oral.Susp) 30 ml PO Q6H PRN PRN Reason: Heartburn/Nausea Albuterol Sulfate (Albuterol Sulfate 90 Mcg 8 Gm Inhaler) 2 puff INHALE RQ4H NE N PRN Reason: Wheezing Amitriptyline HCl (Amitriptyline Hcl 25 Mg Tablet) 25 mg PO BEDTIME [facility] Last Admin: 10/14/24 21:08 Dose: 25 mg Amphetamine/Dextroamphetamine (Dextroamphetamine/Amphetamine Xr 10 Mg Cap.Er.24h) 30 mg PO DAILY [facility] Last Admin: 10/15/24 11:03 Dose: 30 mg Amphetamine/Dextroamphetamine (Amphetamine Mixed Salts 20 Mg Tablet) 30 mg PO 1400 [facility] Last Admin: 10/15/24 15:43 Dose: 30 mg Buspirone HCl (Buspirone Hcl 10 Mg Tablet) 30 mg PO TID [facility] Last Admin: 10/15/24 15:43 Dose: 30 mg Docusate Sodium (Docusate Sodium 100 Mg Capsule) 100 mg PO BID PRN PRN Reason: Constipation Famotidine (Famotidine 20 Mg Tablet) 20 mg PO BID [facility] Last Admin: 10/15/24 11:13 Dose: 20 mg Gabapentin (Gabapentin 400 Mg Capsule) 800 mg PO TID [facility] Last Admin: 10/15/24 15:43 Dose: 800 mg Hydroxyzine HCl (Hydroxyzine Hcl 25 Mg Tablet) 25 mg PO Q6H PRN PRN Reason: Anxiety Ibuprofen (Ibuprofen 600 Mg Tablet) 600 mg PO Q6H PRN PRN Reason: severe pain Magnesium Hydroxide (Milk Of Magnesia 30 Ml Oral.Susp) 30 ml PO DAILY PRN PRN Reason: Constipation,severe Methadone HCl (Methadone Hcl 20 Mg/2 Ml Oral.Conc) 175 mg PO DAILY@0800 [facility] Last Admin: 10/15/24 08:01 Dose: 175 mg Multi-Ingred Cream/Lotion/Oil/Oint (Mineral Oil/Petrolatum,White 106 Gm Tube) 1 appl TOPICAL BID [facility]; Protocol Last Admin: 10/15/24 11:05 Dose: 1 appl Nicotine (Nicotine 21 Mg Patch.Td24) 21 mg TRANSDERMA DAILY PRN PRN Reason: smoking cessation Nicotine Polacrilex (Nicotine Polacrilex 2 Mg Gum) 4 mg BUCCAL Q2H PRN PRN Reason: Nicotine Cravings Last Admin: 10/15/24 15:45 Dose: 4 mg Ondansetron HCl (Ondansetron Odt 4 Mg Tab.Rapdis) 4 mg TRANSLINGU Q6H PRN PRN Reason: Nausea and Vomiting Last Admin: 10/15/24 11:30 Dose: 4 mg Prazosin HCl (Prazosin Hcl 1 Mg Capsule) 4 mg PO BEDTIME [facility]; Protocol Last Admin: 10/14/24 21:07 Dose: 4 mg Quetiapine Fumarate (Quetiapine Fumarate 200 Mg Tablet) 200 mg PO BEDTIME [facility] Last Admin: 10/14/24 21:07 Dose: 200 mg Triamcinolone Acetonide (Triamcinolone Acet 0.1 % Cream 15 Gm Tube) 1 appl TOPICAL BID [facility]; Protocol Last Admin: 10/15/24 11:06 Dose: 1 appl Zolpidem Tartrate (Zolpidem Tartrate 5 Mg Tablet) 10 mg PO BEDTIME PRN PRN Reason: Insomnia Last Admin: 10/14/24 21:56 Dose: 10 mg Allergies Allergies Allergy/AdvReac Type Severity Reaction Status Date / Time haloperidol [From HALDOL] AdvReac Intermediate LOCK JAW Verified 10/09/24 15:16 olanzapine [From ZYPREXA] AdvReac Unknown PT REPORTS Verified 10/09/24 15:16 FEELS LIKE I AM ON AN ACID TRIP Assessment & Plan Assessment & Plan (1) MDD (major depressive disorder), recurrent episode, moderate: Status: Acute Code(s): F33.1 - Major depressive disorder, recurrent, moderate (2) ADHD (attention deficit hyperactivity disorder): Status: Acute Code(s): F90.9 - Attention-deficit hyperactivity disorder, unspecified type (3) Opioid use disorder, severe, dependence: Status: Acute Code(s): F11.20 - Opioid dependence, uncomplicated (4) Suicide attempt: Status: Acute Code(s): T14.91XA - Suicide attempt, initial encounter Plan Recurrent Major Depression, s/p suicide attempt, ADHD, Opiate Use Disorder. Plan: Admit, CV, 15 minute checks Diagnostics as needed Collateral contact Medication re-establishment and titration as needed Encourage full milieu Discharge/Out Pt planning 10/15/24 Continue tx Zofran prn Reason for continued inpatient stay Substantial Risk for: rapid decompensation Time Spent With Patient Time: Total time managing care of this patient today ____ minutes.
[2024-10-15 20:00] VITALS: BP 159/76; PULSE 102; RESP 16; TEMP 36.9; O2SAT 96
[2024-10-15 20:54] VITALS: BP 159/76
[2024-10-15] MEDS: Prazosin HCL 1 MG CAPSULE 4 MG PO (20:54)
[2024-10-15] MEDS: QUEtiapine Fumarate 200 MG TABLET PO (20:55)
[2024-10-15] MEDS: Zolpidem Tartrate 5 MG TABLET 10 MG PO (20:55)
[2024-10-15] MEDS: Amitriptyline HCl 25 MG TABLET PO (20:55)
--- NOTE | 2024-10-16 05:55 | HO.PSYCHPN ---
Subjective Subjective Date of Service: 10/16/24 Reason For Visit: Suicidal Subjective Notes: Conditional Voluntary Healthcare Proxy: No Guardianship: No Medical Problems Affecting Mental Status: No Interim History: Met with pt. Reviewed with the team. GI sx of nausea, vomiting. SARS/Flu/Covid/GI panel (norovirius) ordered. Later in the day, pt reports to team no BM x 12 days. KUB and Hospitalist consult are ordered. Pt has been reporting feeling ill and has been refusing some medications. Reports feeling depressed, with SI and I feel so bad I just want it to end. Medication Compliance: Intermittent Side effects from medications: Yes (nausea and vomiting) Attending Groups: No Review of Systems nausea and vomiting Medical Review of Systems: unchanged Review of Systems Review of Systems nausea, vomiting Mental Status Exam Mental Status Exam Patient Appearance: Fatigued Patient Orientation: Person, Place, Time and Situation Level of Consciousness: Alert Patient Behavior: Appropriate, Talkative, Cooperative and Good Eye Contact Mood Description: Withdrawn and Depressed Affect Description: Flat Patient Cognition Impaired: No Ability to Follow Directions: Good Speech Pattern: Spontaneous Speech Memory Description: Episodic Impaired Hallucinations: None Delusions: Not Present Thought Process: Rumination Thought Content: positive for Circumstantial and positive for Perseveration Depressive Symptoms: Increased Anxiety, Increased Fatigue and Thoughts of /Suicide Judgement: Fair Diagnostics Vital Signs (24Hr): Vital Signs - 24 hr 10/15/24 08:26 10/15/24 20:00 10/15/24 20:54 Temperature 98.7 F 98.5 F Pulse Rate 88 102 H Respiratory Rate 16 Blood Pressure 131/60 159/76 H 159/76 H Pulse Oximetry 94 96 Oxygen Delivery Method Room Air Room Air BMI result Body Mass Index 37.5 Imaging Radiology Impressions: ITS Impressions Ankle X-Ray 10/14/24 15:30 IMPRESSION: 1. No acute fracture or dislocation. 2. Asymmetric ankle mortise with medial widening and lateral narrowing, suggesting instability. This has progressed significantly. There is a possible osteochondral lesion versus focus of AVN involving the lateral talar dome. 3. Progressive moderate tibiotalar and fibulotalar joint degenerative arthropathy, with complete loss of the fibulotalar joint space as detailed. 4. Subchondral sclerosis abutting the posterior facet subtalar joint. 5. Diffuse soft tissue swelling with ankle joint effusion. Electronically signed by: Narinder Sarabia MD 10/14/2024 04:02 PM [facility] [place] Medications Current Medications Acetaminophen (Acetaminophen 325 Mg Tablet) 325 mg PO Q6H PRN PRN Reason: Headache/Pain Mild Scale (1-3) Acetaminophen (Acetaminophen 325 Mg Tablet) 650 mg PO Q6H PRN PRN Reason: Pain, Moderate(Pain Scale 4-6) Al Hydroxide/Mg Hydroxide (Magnesium Hydrox/Alum Hydrox 30 Ml Oral.Susp) 30 ml PO Q6H PRN PRN Reason: Heartburn/Nausea Albuterol Sulfate (Albuterol Sulfate 90 Mcg 8 Gm Inhaler) 2 puff INHALE RQ4H PRN PRN Reason: Wheezing Amitriptyline HCl (Amitriptyline Hcl 25 Mg Tablet) 25 mg PO BEDTIME [facility] Last Admin: 10/15/24 20:55 Dose: 25 mg Amphetamine/Dextroamphetamine (Dextroamphetamine/Amphetamine Xr 10 Mg Cap.Er.24h) 30 mg PO DAILY [facility] Last Admin: 10/15/24 11:03 Dose: 30 mg Amphetamine/Dextroamphetamine (Amphetamine Mixed Salts 20 Mg Tablet) 30 mg PO 1400 [facility] Last Admin: 10/15/24 15:43 Dose: 30 mg Buspirone HCl (Buspirone Hcl 10 Mg Tablet) 30 mg PO TID [facility] Last Admin: 10/15/24 20:55 Dose: 30 mg Docusate Sodium (Docusate Sodium 100 Mg Capsule) 100 mg PO BID PRN PRN Reason: Constipation Famotidine (Famotidine 20 Mg Tablet) 20 mg PO BID [facility] Last Admin: 10/15/24 20:55 Dose: 20 mg Gabapentin (Gabapentin 400 Mg Capsule) 800 mg PO TID [facility] Last Admin: 10/15/24 20:54 Dose: 800 mg Hydroxyzine HCl (Hydroxyzine Hcl 25 Mg Tablet) 25 mg PO Q6H PRN PRN Reason: Anxiety Ibuprofen (Ibuprofen 600 Mg Tablet) 600 mg PO Q6H PRN PRN Reason: severe pain Magnesium Hydroxide (Milk Of Magnesia 30 Ml Oral.Susp) 30 ml PO DAILY PRN PRN Reason: Constipation,severe Methadone HCl (Methadone Hcl 20 Mg/2 Ml Oral.Conc) 175 mg PO DAILY@0800 [facility] Last Admin: 10/15/24 08:01 Dose: 175 mg Multi-Ingred Cream/Lotion/Oil/Oint (Mineral Oil/Petrolatum,White 106 Gm Tube) 1 appl TOPICAL BID [facility]; Protocol Last Admin: 10/15/24 22:29 Dose: Not Given Nicotine (Nicotine 21 Mg Patch.Td24) 21 mg TRANSDERMA DAILY PRN PRN Reason: smoking cessation Nicotine Polacrilex (Nicotine Polacrilex 2 Mg Gum) 4 mg BUCCAL Q2H PRN PRN Reason: Nicotine Cravings Last Admin: 10/15/24 15:45 Dose: 4 mg Ondansetron HCl (Ondansetron Odt 4 Mg Tab.Rapdis) 4 mg TRANSLINGU Q6H PRN PRN Reason: Nausea and Vomiting Last Admin: 10/15/24 11:30 Dose: 4 mg Prazosin HCl (Prazosin Hcl 1 Mg Capsule) 4 mg PO BEDTIME [facility]; Protocol Last Admin: 10/15/24 20:54 Dose: 4 mg Quetiapine Fumarate (Quetiapine Fumarate 200 Mg Tablet) 200 mg PO BEDTIME [facility] Last Admin: 10/15/24 20:55 Dose: 200 mg Triamcinolone Acetonide (Triamcinolone Acet 0.1 % Cream 15 Gm Tube) 1 appl TOPICAL BID [facility]; Protocol Last Admin: 10/15/24 22:30 Dose: Not Given Zolpidem Tartrate (Zolpidem Tartrate 5 Mg Tablet) 10 mg PO BEDTIME PRN PRN Reason: Insomnia Last Admin: 10/15/24 20:55 Dose: 10 mg Allergies Allergies Allergy/AdvReac Type Severity Reaction Status Date / Time haloperidol [From HALDOL] AdvReac Intermediate LOCK JAW Verified 10/09/24 15:16 olanzapine [From ZYPREXA] AdvReac Unknown PT REPORTS Verified 10/09/24 15:16 FEELS LIKE I AM ON AN ACID TRIP Assessment & Plan Assessment & Plan (1) MDD (major depressive disorder), recurrent episode, moderate: Status: Acute Code(s): F33.1 - Major depressive disorder, recurrent, moderate (2) ADHD (attention deficit hyperactivity disorder): Status: Acute Code(s): F90.9 - Attention-deficit hyperactivity disorder, unspecified type (3) Opioid use disorder, severe, dependence: Status: Acute Code(s): F11.20 - Opioid dependence, uncomplicated (4) Suicide attempt: Status: Acute Code(s): T14.91XA - Suicide attempt, initial encounter Plan Recurrent Major Depression, s/p suicide attempt, ADHD, Opiate Use Disorder. Plan: Admit, CV, 15 minute checks Diagnostics as needed Collateral contact Medication re-establishment and titration as needed Encourage full milieu Discharge/Out Pt planning 10/15/24 Continue tx Zofran prn 10/16/24 Continue tx KUB Hospitalist consult- no BM x 12 days, nausea and vomiting Reason for continued inpatient stay Substantial Risk for: med/psych decompensation Time Spent With Patient Time: Total time managing care of this patient today ____ minutes.
[2024-10-16] MEDS: methADONE HCl 20 MG/2 ML ORAL.CONC 175 MG PO (07:46)
[2024-10-16] MEDS: Magnesium Hydrox/Alum Hydrox 30 ML ORAL.SUSP PO (09:16)
[2024-10-16] MEDS: Ondansetron ODT 4 MG TAB.RAPDIS TRANSLINGU (09:17)
[2024-10-16] MEDS: Famotidine 20 MG TABLET PO ×2 (09:18→21:16)
[2024-10-16] MEDS: busPIRone HCl 10 MG TABLET 30 MG PO ×3 (09:18→21:16)
[2024-10-16] MEDS: Gabapentin 400 MG CAPSULE 800 MG PO ×3 (09:18→21:16)
[2024-10-16] MEDS: Triamcinolone Acet 0.1 % Cream 15 GM TUBE 1 APPL TOPICAL (09:19)
[2024-10-16] MEDS: Mineral Oil/Petrolatum,White 106 GM Tube 1 APPL TOPICAL (09:19)
[2024-10-16] MEDS: Nicotine Polacrilex 2 MG GUM 4 MG BUCCAL ×3 (09:47→19:49)
[2024-10-16 10:26] VITALS: BP 146/79; PULSE 94; TEMP 37.8; O2SAT 96
[2024-10-16] MEDS: Amphetamine Mixed Salts 20 MG TABLET 30 MG PO (15:36)
[2024-10-16] MEDS: Milk of Magnesia 30 ML ORAL.SUSP PO (15:51)
[2024-10-16 16:59] LABS: Influenza A PCR NEGATIVE (Negative); Influenza B PCR NEGATIVE (Negative); Resp Syncy Virus RNA Qual PCR NEGATIVE (Negative); SARS COV2 PCR INHOUSE NEGATIVE (Negative)
[2024-10-16 17:46] VITALS: TEMP 37
[2024-10-16 20:00] VITALS: BP 129/73; PULSE 84; RESP 16; TEMP 36.7; O2SAT 96
[2024-10-16 21:16] VITALS: BP 129/73
[2024-10-16] MEDS: Zolpidem Tartrate 5 MG TABLET 10 MG PO (21:16)
[2024-10-16] MEDS: Prazosin HCL 1 MG CAPSULE 4 MG PO (21:16)
[2024-10-16] MEDS: Amitriptyline HCl 25 MG TABLET PO (21:16)
[2024-10-16] MEDS: Docusate Sodium 100 MG CAPSULE PO (21:16)
[2024-10-16] MEDS: QUEtiapine Fumarate 200 MG TABLET PO (21:16)
[2024-10-17] MEDS: methADONE HCl 20 MG/2 ML ORAL.CONC 175 MG PO (07:33)
[2024-10-17 07:51] VITALS: BP 116/69; PULSE 106; TEMP 36.4; O2SAT 95
[2024-10-17 08:20] LABS: Estimated Average Glucose 111 mg/dL; Hemoglobin A1C 135.3588 umol/L; Hemoglobin A1c % 5.5 % (<6.0)
[2024-10-17 08:22] LABS: Cholesterol 121 mg/dL (<200); HDL Cholesterol 32 mg/dL (>40); LDL Cholesterol Calculated 76 mg/dL (<100); Triglycerides 68 mg/dL (<150)
[2024-10-17 08:36] LABS: TSH reflex Free T4 3.36 uIU/mL (0.32-4.0)
--- NOTE | 2024-10-17 08:46 | HO.PSYCHPN ---
Subjective Subjective Date of Service: 10/17/24 Reason For Visit: Suicidal Subjective Notes: Conditional Voluntary Healthcare Proxy: No Guardianship: No Medical Problems Affecting Mental Status: No Interim History: Met with pt, reviewed with the team. Nausea, vomiting continue. KUB completed, not read yet. Hospitalist consult appreciated-Dulcolax ordered. Pt will try Ensure for nutrition. He has not eaten since Friday GI panel cancelled. SARS/COVID/Flu/RSV panels are negative Depressive sx are active, superimposed on current physical issues. Medication Compliance: Intermittent Side effects from medications: Yes (?constipation from methadone) Attending Groups: No Review of Systems Acute medical concerns: Yes as noted Medical Review of Systems: unchanged Review of Systems Review of Systems nausea, vomiting, constipation Mental Status Exam Mental Status Exam Patient Appearance: Fatigued Patient Orientation: Person, Place, Time and Situation Level of Consciousness: Alert Patient Behavior: Appropriate, Talkative, Cooperative and Good Eye Contact Mood Description: Withdrawn and Depressed Affect Description: Flat Patient Cognition Impaired: No Ability to Follow Directions: Good Speech Pattern: Spontaneous Speech Memory Description: Episodic Impaired Hallucinations: None Delusions: Not Present Thought Process: Rumination Thought Content: positive for Circumstantial and positive for Perseveration Depressive Symptoms: Increased Anxiety, Increased Fatigue and Thoughts of /Suicide Judgement: Fair Diagnostics Vital Signs (24Hr): Vital Signs - 24 hr 10/16/24 10:26 10/16/24 17:46 10/16/24 20:00 Temperature 100.1 F 98.6 F 98.1 F Pulse Rate 94 84 Respiratory Rate 16 Blood Pressure 146/79 H 129/73 Pulse Oximetry 96 96 Oxygen Delivery Method Room Air Room Air 10/16/24 21:16 10/17/24 07:51 Temperature 97.6 F Pulse Rate 106 H Respiratory Rate Blood Pressure 129/73 116/69 Pulse Oximetry 95 Oxygen Delivery Method Room Air BMI result Body Mass Index 37.5 Labs Labs: Laboratory Results - last 48 hr 10/16/24 10/17/24 15:55 07:54 Estimat Average Glucose 111 Hemoglobin A1c % 5.5 Triglycerides 68 Cholesterol 121 LDL Cholesterol, Calc 76 HDL Cholesterol 32 L TSH 3.36 Influenza Type A (PCR) NEGATIVE Influenza Type B (PCR) NEGATIVE RSV RNA Qual (PCR) NEGATIVE SARS-CoV-2 RNA (RT-PCR) NEGATIVE Imaging Radiology Impressions: ITS Impressions Ankle X-Ray 10/14/24 15:30 IMPRESSION: 1. No acute fracture or dislocation. 2. Asymmetric ankle mortise with medial widening and lateral narrowing, suggesting instability. This has progressed significantly. There is a possible osteochondral lesion versus focus of AVN involving the lateral talar dome. 3. Progressive moderate tibiotalar and fibulotalar joint degenerative arthropathy, with complete loss of the fibulotalar joint space as detailed. 4. Subchondral sclerosis abutting the posterior facet subtalar joint. 5. Diffuse soft tissue swelling with ankle joint effusion. Electronically signed by: Narinder Sarabia MD 10/14/2024 04:02 [place] [facility] [place] Medications Current Medications Acetaminophen (Acetaminophen 325 Mg Tablet) 325 mg PO Q6H PRN PRN Reason: Headache/Pain Mild Scale (1-3) Acetaminophen (Acetaminophen 325 Mg Tablet) 650 mg PO Q6H PRN PRN Reason: Pain, Moderate(Pain Scale 4-6) Al Hydroxide/Mg Hydroxide (Magnesium Hydrox/Alum Hydrox 30 Ml Oral.Susp) 30 ml PO Q6H PRN PRN Reason: Heartburn/Nausea Last Admin: 10/16/24 09:16 Dose: 30 ml Albuterol Sulfate (Albuterol Sulfate 90 Mcg 8 Gm Inhaler) 2 puff INHALE RQ4H PRN PRN Reason: Wheezing Amitriptyline HCl (Amitriptyline Hcl 25 Mg Tablet) 25 mg PO BEDTIME [facility] Last Admin: 10/16/24 21:16 Dose: 25 mg Amphetamine/Dextroamphetamine (Dextroamphetamine/Amphetamine Xr 10 Mg Cap.Er.24h) 30 mg PO DAILY [facility] Last Admin: 10/16/24 12:42 Dose: Not Given Amphetamine/Dextroamphetamine (Amphetamine Mixed Salts 20 Mg Tablet) 30 mg PO 1400 [facility] Last Admin: 10/16/24 15:36 Dose: 30 mg Buspirone HCl (Buspirone Hcl 10 Mg Tablet) 30 mg PO TID [facility] Last Admin: 10/16/24 21:16 Dose: 30 mg Docusate Sodium (Docusate Sodium 100 Mg Capsule) 100 mg PO BID PRN PRN Reason: Constipation Last Admin: 10/16/24 21:16 Dose: 100 mg Famotidine (Famotidine 20 Mg Tablet) 20 mg PO BID [facility] Last Admin: 01/25/25 21:16 Dose: 20 mg Gabapentin (Gabapentin 400 Mg Capsule) 800 mg PO TID [facility] Last Admin: 10/16/24 21:16 Dose: 800 mg Hydroxyzine HCl (Hydroxyzine Hcl 25 Mg Tablet) 25 mg PO Q6H PRN PRN Reason: Anxiety Ibuprofen (Ibuprofen 600 Mg Tablet) 600 mg PO Q6H PRN PRN Reason: severe pain Magnesium Hydroxide (Milk Of Magnesia 30 Ml Oral.Susp) 30 ml PO DAILY PRN PRN Reason: Constipation,severe Last Admin: 10/16/24 15:51 Dose: 30 ml Methadone HCl (Methadone Hcl 20 Mg/2 Ml Oral.Conc) 175 mg PO DAILY@0800 [facility] Last Admin: 10/17/24 07:33 Dose: 175 mg Multi-Ingred Cream/Lotion/Oil/Oint (Mineral Oil/Petrolatum,White 106 Gm Tube) 1 appl TOPICAL BID [facility]; Protocol Last Admin: 10/16/24 21:30 Dose: Not Given Nicotine (Nicotine 21 Mg Patch.Td24) 21 mg TRANSDERMA DAILY PRN PRN Reason: smoking cessation Nicotine Polacrilex (Nicotine Polacrilex 2 Mg Gum) 4 mg BUCCAL Q2H PRN PRN Reason: Nicotine Cravings Last Admin: 10/16/24 19:49 Dose: 4 mg Ondansetron HCl (Ondansetron Odt 4 Mg Tab.Rapdis) 4 mg TRANSLINGU Q6H PRN PRN Reason: Nausea and Vomiting Last Admin: 10/16/24 09:17 Dose: 4 mg Prazosin HCl (Prazosin Hcl 1 Mg Capsule) 4 mg PO BEDTIME [facility]; Protocol Last Admin: 10/16/24 21:16 Dose: 4 mg Quetiapine Fumarate (Quetiapine Fumarate 200 Mg Tablet) 200 mg PO BEDTIME [facility] Last Admin: 10/16/24 21:16 Dose: 200 mg Triamcinolone Acetonide (Triamcinolone Acet 0.1 % Cream 15 Gm Tube) 1 appl TOPICAL BID [facility]; Protocol Last Admin: 10/16/24 21:30 Dose: Not Given Zolpidem Tartrate (Zolpidem Tartrate 5 Mg Tablet) 10 mg PO BEDTIME PRN PRN Reason: Insomnia Last Admin: 10/16/24 21:16 Dose: 10 mg Allergies Allergies Allergy/AdvReac Type Severity Reaction Status Date / Time haloperidol [From HALDOL] AdvReac Intermediate LOCK JAW Verified 10/09/24 15:16 olanzapine [From ZYPREXA] AdvReac Unknown PT REPORTS Verified 10/09/24 15:16 FEELS LIKE I AM ON AN ACID TRIP Assessment & Plan Assessment & Plan (1) MDD (major depressive disorder), recurrent episode, moderate: Status: Acute Code(s): F33.1 - Major depressive disorder, recurrent, moderate (2) ADHD (attention deficit hyperactivity disorder): Status: Acute Code(s): F90.9 - Attention-deficit hyperactivity disorder, unspecified type (3) Opioid use disorder, severe, dependence: Status: Acute Code(s): F11.20 - Opioid dependence, uncomplicated (4) Suicide attempt: Status: Acute Code(s): T14.91XA - Suicide attempt, initial encounter Plan Recurrent Major Depression, s/p suicide attempt, ADHD, Opiate Use Disorder. Plan: Admit, CV, 15 minute checks Diagnostics as needed Collateral contact Medication re-establishment and titration as needed Encourage full milieu Discharge/Out Pt planning 10/15/24 Continue tx Zofran prn 10/17/24 KUB results are pending Dulcolax has been given-results are pending Continue current plan, regime Stronger laxative as needed Reason for continued inpatient stay Substantial Risk for: rapid decompensation and med/psych decompensation Time Spent With Patient Time: Total time managing care of this patient today ____ minutes.
[2024-10-17] MEDS: Gabapentin 400 MG CAPSULE 800 MG PO ×3 (09:13→21:43)
[2024-10-17] MEDS: Famotidine 20 MG TABLET PO ×2 (09:14→21:44)
[2024-10-17] MEDS: busPIRone HCl 10 MG TABLET 30 MG PO ×3 (09:14→21:42)
[2024-10-17] MEDS: Nicotine Polacrilex 2 MG GUM 4 MG BUCCAL ×4 (09:15→21:41)
[2024-10-17] MEDS: Triamcinolone Acet 0.1 % Cream 15 GM TUBE 1 APPL TOPICAL (09:16)
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
[2024-10-17] MEDS: bisacodyL 5 MG TABLET.DR 10 MG PO (11:54)
[2024-10-17] MEDS: Amphetamine Mixed Salts 20 MG TABLET 30 MG PO (14:06)
[2024-10-17] MEDS: Docusate Sodium 100 MG CAPSULE PO ×2 (14:07→22:42)
[2024-10-17] MEDS: Lactulose 20 GM/30 ML SOLUTION PO (18:34)
[2024-10-17 20:00] VITALS: BP 159/84; PULSE 80; TEMP 36.3; O2SAT 97
[2024-10-17] MEDS: polyethylene glycoL 3350 17 GM POWD.PACK PO (21:39)
[2024-10-17] MEDS: Zolpidem Tartrate 5 MG TABLET 10 MG PO (21:40)
[2024-10-17 21:41] VITALS: BP 159/94
[2024-10-17] MEDS: Prazosin HCL 1 MG CAPSULE 4 MG PO (21:41)
[2024-10-17] MEDS: QUEtiapine Fumarate 200 MG TABLET PO (21:43)
[2024-10-17] MEDS: Amitriptyline HCl 25 MG TABLET PO (21:44)
[2024-10-17 22:46] LABS: Influenza A PCR NEGATIVE (Negative); Influenza B PCR NEGATIVE (Negative); Resp Syncy Virus RNA Qual PCR NEGATIVE (Negative); SARS COV2 PCR INHOUSE NEGATIVE (Negative)
[2024-10-18] MEDS: methADONE HCl 20 MG/2 ML ORAL.CONC 175 MG PO (07:53)
[2024-10-18 08:34] VITALS: BP 154/69; PULSE 81; RESP 16; TEMP 36.8; O2SAT 96
[2024-10-18 08:55] VITALS: BP 128/70; PULSE 100; RESP 16; TEMP 37.2; O2SAT 96
[2024-10-18] MEDS: Gabapentin 400 MG CAPSULE 800 MG PO ×3 (09:14→21:53)
[2024-10-18] MEDS: Famotidine 20 MG TABLET PO ×2 (09:14→21:53)
[2024-10-18] MEDS: Dextroamphetamine/Amphetamine XR 10 MG CAP.ER.24H 30 MG PO (09:14)
[2024-10-18] MEDS: busPIRone HCl 10 MG TABLET 30 MG PO ×3 (09:14→21:53)
[2024-10-18] MEDS: Nicotine Polacrilex 2 MG GUM 4 MG BUCCAL ×5 (09:14→23:34)
[2024-10-18] MEDS: polyethylene glycoL 3350 17 GM POWD.PACK PO (09:14)
[2024-10-18] MEDS: Lactulose 20 GM/30 ML SOLUTION 30 GM PO (10:12)
--- NOTE | 2024-10-18 10:45 | HO.PSYCHPN ---
Subjective Subjective Date of Service: 10/18/24 Reason For Visit: Suicidal Subjective Notes: Conditional Voluntary Healthcare Proxy: No Guardianship: No Medical Problems Affecting Mental Status: No Interim History: Pt with severe constipation with KUB confirmation. Lactulose and Magnesium Citrate Ordered Declines fleet Wellbutrin XL restarted after discussion with pt regarding his depression tx. Medication Compliance: Yes Side effects from medications: Yes (constipation) Attending Groups: No Review of Systems Acute medical concerns: Yes acute constipation Medical Review of Systems: unchanged Review of Systems Review of Systems acute constipation Mental Status Exam Mental Status Exam Patient Appearance: Fatigued Patient Orientation: Person, Place, Time and Situation Level of Consciousness: Alert Patient Behavior: Appropriate, Talkative, Cooperative and Good Eye Contact Mood Description: Withdrawn and Depressed Affect Description: Flat Patient Cognition Impaired: No Ability to Follow Directions: Good Speech Pattern: Spontaneous Speech Memory Description: Episodic Impaired Hallucinations: None Delusions: Not Present Thought Process: Rumination Thought Content: positive for Circumstantial and positive for Perseveration Depressive Symptoms: Increased Anxiety, Increased Fatigue and Thoughts of /Suicide Judgement: Fair Diagnostics Vital Signs (24Hr): Vital Signs - 24 hr 10/17/24 20:00 10/17/24 21:41 10/18/24 08:34 Temperature 97.4 F 98.2 F Pulse Rate 80 81 Respiratory Rate 16 Blood Pressure 159/84 H 159/94 H 154/69 H Pulse Oximetry 97 96 Oxygen Delivery Method Room Air Room Air 10/18/24 08:55 Temperature 99.0 F Pulse Rate 100 Respiratory Rate 16 Blood Pressure 128/70 Pulse Oximetry 96 Oxygen Delivery Method Room Air BMI result Body Mass Index 37.5 Labs Labs: Laboratory Results - last 48 hr 10/16/24 10/17/24 10/17/24 15:55 07:54 21:50 Estimat Average Glucose 111 Hemoglobin A1c % 5.5 Triglycerides 68 Cholesterol 121 LDL Cholesterol, Calc 76 HDL Cholesterol 32 L TSH 3.36 Influenza Type A (PCR) NEGATIVE NEGATIVE Influenza Type B (PCR) NEGATIVE NEGATIVE RSV RNA Qual (PCR) NEGATIVE NEGATIVE SARS-CoV-2 RNA (RT-PCR) NEGATIVE NEGATIVE Imaging Radiology Impressions: ITS Impressions Ankle X-Ray 10/14/24 15:30 IMPRESSION: 1. No acute fracture or dislocation. 2. Asymmetric ankle mortise with medial widening and lateral narrowing, suggesting instability. This has progressed significantly. There is a possible osteochondral lesion versus focus of AVN involving the lateral talar dome. 3. Progressive moderate tibiotalar and fibulotalar joint degenerative arthropathy, with complete loss of the fibulotalar joint space as detailed. 4. Subchondral sclerosis abutting the posterior facet subtalar joint. 5. Diffuse soft tissue swelling with ankle joint effusion. Electronically signed by: Narinder Sarabia MD 10/14/2024 04:02 PM [facility] Medications Medications Current Medications Acetaminophen (Acetaminophen 325 Mg Tablet) 325 mg PO Q6H PRN PRN Reason: Headache/Pain Mild Scale (1-3) Acetaminophen (Acetaminophen 325 Mg Tablet) 650 mg PO Q6H PRN PRN Reason: Pain, Moderate(Pain Scale 4-6) Al Hydroxide/Mg Hydroxide (Magnesium Hydrox/Alum Hydrox 30 Ml Oral.Susp) 30 ml PO Q6H PRN PRN Reason: Heartburn/Nausea Last Admin: 10/16/24 09:16 Dose: 30 ml Albuterol Sulfate (Albuterol Sulfate 90 Mcg 8 Gm Inhaler) 2 puff INHALE RQ4H PRN PRN Reason: Wheezing Amitriptyline HCl (Amitriptyline Hcl 25 Mg Tablet) 25 mg PO BEDTIME COUNTS [facility]CLUDE 234 BEDS AT [facility] Last Admin: 10/17/24 21:44 Dose: 25 mg Amphetamine/Dextroamphetamine (Dextroamphetamine/Amphetamine Xr 10 Mg Cap.Er.24h) 30 mg PO DAILY COUNTS INCLUDE 234 BEDS AT THE [facility] Last Admin: 10/18/24 09:14 Dose: 30 mg Amphetamine/Dextroamphetamine (Amphetamine Mixed Salts 20 Mg Tablet) 30 mg PO 1400 COUNTS [facility]CLUDE 234 BEDS AT THE [facility] Last Admin: 10/17/24 14:06 Dose: 30 mg Buspirone HCl (Buspirone Hcl 10 Mg Tablet) 30 mg PO TID COUNTS INCLUDE 234 BEDS AT THE [facility] Last Admin: 10/18/24 09:14 Dose: 30 mg Docusate Sodium (Docusate Sodium 100 Mg Capsule) 100 mg PO BID PRN PRN Reason: Constipation Last Admin: 10/17/24 22:42 Dose: 100 mg Famotidine (Famotidine 20 Mg Tablet) 20 mg PO BID COUNTS INCLUDE 234 BEDS AT THE [facility] Last Admin: 10/18/24 09:14 Dose: 20 mg Gabapentin (Gabapentin 400 Mg Capsule) 800 mg PO TID COUNTS INCLUDE 234 BEDS AT THE [facility] Last Admin: 10/18/24 09:14 Dose: 800 mg Hydroxyzine HCl (Hydroxyzine Hcl 25 Mg Tablet) 25 mg PO Q6H PRN PRN Reason: Anxiety Ibuprofen (Ibuprofen 600 Mg Tablet) 600 mg PO Q6H PRN PRN Reason: severe pain Magnesium Hydroxide (Milk Of Magnesia 30 Ml Oral.Susp) 30 ml PO DAILY PRN PRN Reason: Constipation,severe Last Admin: 10/16/24 15:51 Dose: 30 ml Methadone HCl (Methadone Hcl 20 Mg/2 Ml Oral.Conc) 175 mg PO DAILY@0800 COUNTS [facility]CLUDE 234 BEDS AT [facility] Last Admin: 10/18/24 07:53 Dose: 175 mg Multi-Ingred Cream/Lotion/Oil/Oint (Mineral Oil/Petrolatum,White 106 Gm Tube) 1 appl TOPICAL BID [facility]; Protocol Last Admin: 10/18/24 10:10 Dose: Not Given Nicotine (Nicotine 21 Mg Patch.Td24) 21 mg TRANSDERMA DAILY PRN PRN Reason: smoking cessation Nicotine Polacrilex (Nicotine Polacrilex 2 Mg Gum) 4 mg BUCCAL Q2H PRN PRN Reason: Nicotine Cravings Last Admin: 10/18/24 09:14 Dose: 4 mg Ondansetron HCl (Ondansetron Odt 4 Mg Tab.Rapdis) 4 mg TRANSLINGU Q6H PRN PRN Reason: Nausea and Vomiting Last Admin: 10/16/24 09:17 Dose: 4 mg Polyethylene Glycol (Polyethylene Glycol 3350 17 Gm Powd.Pack) 17 gm PO BID [facility] Last Admin: 10/18/24 09:14 Dose: 17 gm Prazosin HCl (Prazosin Hcl 1 Mg Capsule) 4 mg PO BEDTIME [facility]; Protocol Last Admin: 10/17/24 21:41 Dose: 4 mg Quetiapine Fumarate (Quetiapine Fumarate 200 Mg Tablet) 200 mg PO BEDTIME [facility] Last Admin: 10/17/24 21:43 Dose: 200 mg Triamcinolone Acetonide (Triamcinolone Acet 0.1 % Cream 15 Gm Tube) 1 appl TOPICAL BID [facility]; Protocol Last Admin: 10/18/24 10:10 Dose: Not Given Zolpidem Tartrate (Zolpidem Tartrate 5 Mg Tablet) 10 mg PO BEDTIME PRN PRN Reason: Insomnia Last Admin: 10/17/24 21:40 Dose: 10 mg Allergies Allergies Allergy/AdvReac Type Severity Reaction Status Date / Time haloperidol [From HALDOL] AdvReac Intermediate LOCK JAW Verified 10/09/24 15:16 olanzapine [From ZYPREXA] AdvReac Unknown PT REPORTS Verified 10/09/24 15:16 FEELS LIKE I AM ON AN ACID TRIP Assessment & Plan Assessment & Plan (1) MDD (major depressive disorder), recurrent episode, moderate: Status: Acute Code(s): F33.1 - Major depressive disorder, recurrent, moderate (2) ADHD (attention deficit hyperactivity disorder): Status: Acute Code(s): F90.9 - Attention-deficit hyperactivity disorder, unspecified type (3) Opioid use disorder, severe, dependence: Status: Acute Code(s): F11.20 - Opioid dependence, uncomplicated (4) Suicide attempt: Status: Acute Code(s): T14.91XA - Suicide attempt, initial encounter Plan Recurrent Major Depression, s/p suicide attempt, ADHD, Opiate Use Disorder. Plan: Admit, CV, 15 minute checks Diagnostics as needed Collateral contact Medication re-establishment and titration as needed Encourage full milieu Discharge/Out Pt planning 10/15/24 Continue tx Zofran prn 10/17/24 KUB results are pending Dulcolax has been given-results are pending Continue current plan, regime Stronger laxative as needed 10/18/24- Lactulose, Magnesium Citrate given- no results at this time. Wellbutrin XL 150 mg daily Reason for continued inpatient stay Substantial Risk for: med/psych decompensation Time Spent With Patient Time: Total time managing care of this patient today ____ minutes.
[2024-10-18] MEDS: Amphetamine Mixed Salts 20 MG TABLET 30 MG PO (15:13)
[2024-10-18] MEDS: Magnesium Citrate 300 ML SOLUTION PO (15:26)
[2024-10-18 19:45] VITALS: BP 142/97; PULSE 90; RESP 16; TEMP 36.6; O2SAT 95
[2024-10-18] MEDS: QUEtiapine Fumarate 200 MG TABLET PO (21:53)
[2024-10-18] MEDS: Amitriptyline HCl 25 MG TABLET PO (21:53)
[2024-10-18] MEDS: Prazosin HCL 1 MG CAPSULE 4 MG PO (21:53)
[2024-10-18] MEDS: Zolpidem Tartrate 5 MG TABLET 10 MG PO (21:54)
[2024-10-19] MEDS: methADONE HCl 20 MG/2 ML ORAL.CONC 175 MG PO (08:01)
--- NOTE | 2024-10-19 08:46 | P.PNPSI_ITS ---
Subjective Subjective Date of Service: 10/19/24 Reason For Visit: Suicidal Subjective Notes: Conditional Voluntary Healthcare Proxy: No Guardianship: No Medical Problems Affecting Mental Status: No Interim History: Moderate relief from constipation. Continues, however with physical sx of illness. Tolerating Wellbutrin Resting, some visability in milieu and reporting some relief of abdominal discomfort later in the day. Medication Compliance: Yes Side effects from medications: Yes (constipation) Attending Groups: No Review of Systems Acute medical concerns: No Review of Systems Review of Systems constipation resolving Mental Status Exam Mental Status Exam Patient Appearance: Fatigued Patient Orientation: Person, Place, Time and Situation Level of Consciousness: Alert Patient Behavior: Appropriate, Talkative, Cooperative and Good Eye Contact Mood Description: Withdrawn and Depressed Affect Description: Flat Patient Cognition Impaired: No Ability to Follow Directions: Good Speech Pattern: Spontaneous Speech Memory Description: Episodic Impaired Hallucinations: None Delusions: Not Present Thought Process: Rumination Thought Content: positive for Circumstantial and positive for Perseveration Depressive Symptoms: Increased Anxiety, Increased Fatigue and Thoughts of /Suicide Judgement: Fair Diagnostics Vital Signs (24Hr): Vital Signs - 24 hr 10/18/24 08:55 10/18/24 19:45 Temperature 99.0 F 97.8 F Pulse Rate 100 90 Respiratory Rate 16 16 Blood Pressure 128/70 142/97 H Pulse Oximetry 96 95 Oxygen Delivery Method Room Air Room Air BMI result Body Mass Index 37.5 Labs Labs: Laboratory Results - last 48 hr 10/17/24 21:50 Influenza Type A (PCR) NEGATIVE Influenza Type B (PCR) NEGATIVE RSV RNA Qual (PCR) NEGATIVE SARS-CoV-2 RNA (RT-PCR) NEGATIVE Imaging Radiology Impressions: ITS Impressions Ankle X-Ray 10/14/24 15:30 IMPRESSION: 1. No acute fracture or dislocation. 2. Asymmetric ankle mortise with medial widening and lateral narrowing, suggesting instability. This has progressed significantly. There is a possible osteochondral lesion versus focus of AVN involving the lateral talar dome. 3. Progressive moderate tibiotalar and fibulotalar joint degenerative arthropathy, with complete loss of the fibulotalar joint space as detailed. 4. Subchondral sclerosis abutting the posterior facet subtalar joint. 5. Diffuse soft tissue swelling with ankle joint effusion. Electronically signed by: Narinder Sarabia MD 10/14/2024 04:02 PM [facility] Medications Medications Current Medications Acetaminophen (Acetaminophen 325 Mg Tablet) 325 mg PO Q6H PRN PRN Reason: Headache/Pain Mild Scale (1-3) Acetaminophen (Acetaminophen 325 Mg Tablet) 650 mg PO Q6H PRN PRN Reason: Pain, Moderate(Pain Scale 4-6) Al Hydroxide/Mg Hydroxide (Magnesium Hydrox/Alum Hydrox 30 Ml Oral.Susp) 30 ml PO Q6H PRN PRN Reason: Heartburn/Nausea Last Admin: 10/16/24 09:16 Dose: 30 ml Albuterol Sulfate (Albuterol Sulfate 90 Mcg 8 Gm Inhaler) 2 puff INHALE RQ4H PRN PRN Reason: Wheezing Amitriptyline HCl (Amitriptyline Hcl 25 Mg Tablet) 25 mg PO BEDTIME [facility] Last Admin: 10/18/24 21:53 Dose: 25 mg Amphetamine/Dextroamphetamine (Dextroamphetamine/Amphetamine Xr 10 Mg Cap.Er.24h) 30 mg PO DAILY [facility] Last Admin: 10/18/24 09:14 Dose: 30 mg Amphetamine/Dextroamphetamine (Amphetamine Mixed Salts 20 Mg Tablet) 30 mg PO 1400 [facility] Last Admin: 10/18/24 15:13 Dose: 30 mg Bupropion HCl (Bupropion Hcl Xl 150 Mg Tab.Er.24h) 150 mg PO DAILY [facility] Buspirone HCl (Buspirone Hcl 10 Mg Tablet) 30 mg PO TID [facility] Last Admin: 10/18/24 21:53 Dose: 30 mg Docusate Sodium (Docusate Sodium 100 Mg Capsule) 100 mg PO BID PRN PRN Reason: Constipation Last Admin: 10/17/24 22:42 Dose: 100 mg Famotidine (Famotidine 20 Mg Tablet) 20 mg PO BID [facility] Last Admin: 10/18/24 21:53 Dose: 20 mg Gabapentin (Gabapentin 400 Mg Capsule) 800 mg PO TID [facility] Last Admin: 10/18/24 21:53 Dose: 800 mg Hydroxyzine HCl (Hydroxyzine Hcl 25 Mg Tablet) 25 mg PO Q6H PRN PRN Reason: Anxiety Ibuprofen (Ibuprofen 600 Mg Tablet) 600 mg PO Q6H PRN PRN Reason: severe pain Lactulose (Lactulose 20 Gm/30 Ml Solution) 30 gm PO DAILY [facility] Magnesium Hydroxide (Milk Of Magnesia 30 Ml Oral.Susp) 30 ml PO DAILY PRN PRN Reason: Constipation,severe Last Admin: 10/16/24 15:51 Dose: 30 ml Methadone HCl (Methadone Hcl 20 Mg/2 Ml Oral.Conc) 175 mg PO DAILY@0800 [facility] Last Admin: 10/19/24 08:01 Dose: 175 mg Multi-Ingred Cream/Lotion/Oil/Oint (Mineral Oil/Petrolatum,White 106 Gm Tube) 1 appl TOPICAL BID [facility]; Protocol Last Admin: 10/18/24 22:31 Dose: Not Given Nicotine (Nicotine 21 Mg Patch.Td24) 21 mg TRANSDERMA DAILY PRN PRN Reason: smoking cessation Nicotine Polacrilex (Nicotine Polacrilex 2 Mg Gum) 4 mg BUCCAL Q2H PRN PRN Reason: Nicotine Cravings Last Admin: 10/18/24 23:34 Dose: 4 mg Ondansetron HCl (Ondansetron Odt 4 Mg Tab.Rapdis) 4 mg TRANSLINGU Q6H PRN PRN Reason: Nausea and Vomiting Last Admin: 10/16/24 09:17 Dose: 4 mg Polyethylene Glycol (Polyethylene Glycol 3350 17 Gm Powd.Pack) 17 gm PO BID [facility] Last Admin: 10/18/24 21:54 Dose: Not Given Prazosin HCl (Prazosin Hcl 1 Mg Capsule) 4 mg PO BEDTIME [facility]; Protocol Last Admin: 10/18/24 21:53 Dose: 4 mg Quetiapine Fumarate (Quetiapine Fumarate 200 Mg Tablet) 200 mg PO BEDTIME [facility] Last Admin: 10/18/24 21:53 Dose: 200 mg Triamcinolone Acetonide (Triamcinolone Acet 0.1 % Cream 15 Gm Tube) 1 appl TOPICAL BID [facility]; Protocol Last Admin: 10/18/24 21:54 Dose: Not Given Zolpidem Tartrate (Zolpidem Tartrate 5 Mg Tablet) 10 mg PO BEDTIME PRN PRN Reason: Insomnia Last Admin: 10/18/24 21:54 Dose: 10 mg Allergies Allergies Allergy/AdvReac Type Severity Reaction Status Date / Time haloperidol [From HALDOL] AdvReac Intermediate LOCK JAW Verified 10/09/24 15:16 olanzapine [From ZYPREXA] AdvReac Unknown PT REPORTS Verified 10/09/24 15:16 FEELS LIKE I AM ON AN ACID TRIP Assessment & Plan Assessment & Plan (1) MDD (major depressive disorder), recurrent episode, moderate: Status: Acute Code(s): F33.1 - Major depressive disorder, recurrent, moderate (2) ADHD (attention deficit hyperactivity disorder): Status: Acute Code(s): F90.9 - Attention-deficit hyperactivity disorder, unspecified type (3) Opioid use disorder, severe, dependence: Status: Acute Code(s): F11.20 - Opioid dependence, uncomplicated (4) Suicide attempt: Status: Acute Code(s): T14.91XA - Suicide attempt, initial encounter Plan Recurrent Major Depression, s/p suicide attempt, ADHD, Opiate Use Disorder. Plan: Admit, CV, 15 minute checks Diagnostics as needed Collateral contact Medication re-establishment and titration as needed Encourage full milieu Discharge/Out Pt planning 10/15/24 Continue tx Zofran prn 10/17/24 KUB results are pending Dulcolax has been given-results are pending Continue current plan, regime Stronger laxative as needed 10/19/24 continue tx Reason for continued inpatient stay Substantial Risk for: rapid decompensation Time Spent With Patient Time: Total time managing care of this patient today ____ minutes.
[2024-10-19] MEDS: buPROPion HCl XL 150 MG TAB.ER.24H PO (08:53)
[2024-10-19] MEDS: Gabapentin 400 MG CAPSULE 800 MG PO ×3 (08:54→20:20)
[2024-10-19] MEDS: Famotidine 20 MG TABLET PO ×2 (08:54→20:21)
[2024-10-19] MEDS: busPIRone HCl 10 MG TABLET 30 MG PO ×3 (08:54→20:20)
[2024-10-19] MEDS: Dextroamphetamine/Amphetamine XR 10 MG CAP.ER.24H 30 MG PO (08:54)
[2024-10-19] MEDS: polyethylene glycoL 3350 17 GM POWD.PACK PO (08:57)
[2024-10-19] MEDS: Nicotine Polacrilex 2 MG GUM 4 MG BUCCAL ×5 (09:00→20:21)
[2024-10-19 09:09] VITALS: BP 147/96; PULSE 108; RESP 16; TEMP 37.5; O2SAT 94
[2024-10-19] MEDS: Amphetamine Mixed Salts 20 MG TABLET 30 MG PO (14:13)
[2024-10-19 20:00] VITALS: BP 145/86; PULSE 79; RESP 16; TEMP 36.1; O2SAT 95
[2024-10-19] MEDS: Docusate Sodium 100 MG CAPSULE 200 MG PO (20:20)
[2024-10-19] MEDS: Prazosin HCL 1 MG CAPSULE 4 MG PO (20:20)
[2024-10-19] MEDS: Amitriptyline HCl 25 MG TABLET PO (20:20)
[2024-10-19] MEDS: Zolpidem Tartrate 5 MG TABLET 10 MG PO (20:20)
[2024-10-19] MEDS: QUEtiapine Fumarate 200 MG TABLET PO (20:21)
--- NOTE | 2024-10-20 | ECG_ITS ---
Test Reason : M5 Blood Pressure : */* mmHG Vent. Rate : 101 BPM Atrial Rate : 101 BPM P-R Int : 142 ms QRS Dur : 82 ms QT Int : 404 ms P-R-T Axes : 31 -10 1 degrees QTcB Int : 523 ms Sinus tachycardia Minimal voltage criteria for LVH, may be normal variant ( R in aVL ) Prolonged QT Abnormal ECG When compared with ECG of 10-Oct-2024 09:42, QT has lengthened Referred By: Kaylynn Crook Electronically Signed By: MIHIR PAGAN
[2024-10-20] MEDS: methADONE HCl 20 MG/2 ML ORAL.CONC 175 MG PO (07:56)
[2024-10-20 08:13] VITALS: BP 127/77; TEMP 37
[2024-10-20] MEDS: busPIRone HCl 10 MG TABLET 30 MG PO ×2 (08:48→14:11)
[2024-10-20] MEDS: Dextroamphetamine/Amphetamine XR 10 MG CAP.ER.24H 30 MG PO (08:50)
[2024-10-20] MEDS: Docusate Sodium 100 MG CAPSULE 200 MG PO (08:51)
[2024-10-20] MEDS: Gabapentin 400 MG CAPSULE 800 MG PO ×2 (08:51→14:11)
[2024-10-20] MEDS: Famotidine 20 MG TABLET PO (08:52)
[2024-10-20] MEDS: Lactulose 20 GM/30 ML SOLUTION 30 GM PO (08:52)
[2024-10-20] MEDS: buPROPion HCl XL 150 MG TAB.ER.24H PO (08:54)
[2024-10-20] MEDS: Albuterol Sulfate 90 MCG 8 GM INHALER 2 PUFF INHALE (08:56)
[2024-10-20] MEDS: Nicotine Polacrilex 2 MG GUM 4 MG BUCCAL ×3 (09:47→14:12)
[2024-10-20 09:52] VITALS: O2SAT 93
--- NOTE | 2024-10-20 10:18 | HO.PSYCHPN ---
Subjective Subjective Reason For Visit: Suicidal Diagnostics Vital Signs (24Hr): Vital Signs - 24 hr 10/19/24 20:00 10/20/24 08:13 10/20/24 09:52 Temperature 96.9 F 98.6 F Pulse Rate 79 Respiratory Rate 16 Blood Pressure 145/86 H 127/77 Pulse Oximetry 95 93 Oxygen Delivery Method Room Air Room Air BMI result Body Mass Index 37.5 Imaging Radiology Impressions: ITS Impressions Ankle X-Ray 10/14/24 15:30 IMPRESSION: 1. No acute fracture or dislocation. 2. Asymmetric ankle mortise with medial widening and lateral narrowing, suggesting instability. This has progressed significantly. There is a possible osteochondral lesion versus focus of AVN involving the lateral talar dome. 3. Progressive moderate tibiotalar and fibulotalar joint degenerative arthropathy, with complete loss of the fibulotalar joint space as detailed. 4. Subchondral sclerosis abutting the posterior facet subtalar joint. 5. Diffuse soft tissue swelling with ankle joint effusion. Electronically signed by: Narinder Sarabia MD 10/14/2024 04:02 PM EST RP Chest X-Ray 10/20/24 09:10 IMPRESSION: Pulmonary edema versus multifocal pneumonia versus pneumonitis versus pulmonary hemorrhage among other etiologies. Electronically signed by: Esa Anders MD 10/20/2024 09:54 AM EST RP Medications Medications Current Medications Acetaminophen (Acetaminophen 325 Mg Tablet) 650 mg PO Q6H PRN PRN Reason: Pain 1-10 Al Hydroxide/Mg Hydroxide (Magnesium Hydrox/Alum Hydrox 30 Ml Oral.Susp) 30 ml PO Q6H PRN PRN Reason: Heartburn/Nausea Last Admin: 10/16/24 09:16 Dose: 30 ml Albuterol Sulfate (Albuterol Sulfate 90 Mcg 8 Gm Inhaler) 2 puff INHALE RQ4H PRN PRN Reason: Wheezing Last Admin: 10/20/24 08:56 Dose: 2 puff Amitriptyline HCl (Amitriptyline Hcl 25 Mg Tablet) 25 mg PO BEDTIME [facility] Last Admin: 10/19/24 20:20 Dose: 25 mg Amphetamine/Dextroamphetamine (Dextroamphetamine/Amphetamine Xr 10 Mg Cap.Er.24h) 30 mg PO DAILY [facility] Last Admin: 10/20/24 08:50 Dose: 30 mg Amphetamine/Dextroamphetamine (Amphetamine Mixed Salts 20 Mg Tablet) 30 mg PO 1400 [facility] Last Admin: 10/19/24 14:13 Dose: 30 mg Bupropion HCl (Bupropion Hcl Xl 150 Mg Tab.Er.24h) 150 mg PO DAILY [facility] Last Admin: 10/20/24 08:54 Dose: 150 mg Buspirone HCl (Buspirone Hcl 10 Mg Tablet) 30 mg PO TID [facility] Last Admin: 10/20/24 08:48 Dose: 30 mg Docusate Sodium (Docusate Sodium 100 Mg Capsule) 200 mg PO BID [facility] Last Admin: 10/20/24 08:51 Dose: 200 mg Famotidine (Famotidine 20 Mg Tablet) 20 mg PO BID [facility] Last Admin: 10/20/24 08:52 Dose: 20 mg Gabapentin (Gabapentin 400 Mg Capsule) 800 mg PO TID [facility] Last Admin: 10/20/24 08:51 Dose: 800 mg Hydroxyzine HCl (Hydroxyzine Hcl 25 Mg Tablet) 25 mg PO Q6H PRN PRN Reason: Anxiety, mild Lactulose (Lactulose 20 Gm/30 Ml Solution) 30 gm PO DAILY [facility] Last Admin: 10/20/24 08:52 Dose: 30 gm Magnesium Hydroxide (Milk Of Magnesia 30 Ml Oral.Susp) 30 ml PO DAILY PRN PRN Reason: Constipation,severe Last Admin: 10/16/24 15:51 Dose: 30 ml Methadone HCl (Methadone Hcl 20 Mg/2 Ml Oral.Conc) 175 mg PO DAILY@0800 [facility] Last Admin: 10/20/24 07:56 Dose: 175 mg Multi-Ingred Cream/Lotion/Oil/Oint (Mineral Oil/Petrolatum,White 106 Gm Tube) 1 appl TOPICAL BID [facility]; Protocol Last Admin: 10/20/24 08:54 Dose: Not Given Nicotine (Nicotine 21 Mg Patch.Td24) 21 mg TRANSDERMA DAILY PRN PRN Reason: smoking cessation Nicotine Polacrilex (Nicotine Polacrilex 2 Mg Gum) 4 mg BUCCAL Q2H PRN PRN Reason: Nicotine Cravings Last Admin: 10/20/24 09:47 Dose: 4 mg Ondansetron HCl (Ondansetron Odt 4 Mg Tab.Rapdis) 4 mg TRANSLINGU Q6H PRN PRN Reason: Nausea and Vomiting Last Admin: 10/16/24 09:17 Dose: 4 mg Polyethylene Glycol (Polyethylene Glycol 3350 17 Gm Powd.Pack) 17 gm PO BID [facility] Last Admin: 10/20/24 08:54 Dose: Not Given Prazosin HCl (Prazosin Hcl 1 Mg Capsule) 4 mg PO BEDTIME [facility]; Protocol Last Admin: 10/19/24 20:20 Dose: 4 mg Quetiapine Fumarate (Quetiapine Fumarate 200 Mg Tablet) 200 mg PO BEDTIME [facility] Last Admin: 10/19/24 20:21 Dose: 200 mg Triamcinolone Acetonide (Triamcinolone Acet 0.1 % Cream 15 Gm Tube) 1 appl TOPICAL BID [facility]; Protocol Last Admin: 10/20/24 08:54 Dose: Not Given Zolpidem Tartrate (Zolpidem Tartrate 5 Mg Tablet) 10 mg PO BEDTIME PRN PRN Reason: Insomnia Last Admin: 10/19/24 20:20 Dose: 10 mg Allergies Allergies Allergy/AdvReac Type Severity Reaction Status Date / Time haloperidol [From HALDOL] AdvReac Intermediate LOCK JAW Verified 10/09/24 15:16 olanzapine [From ZYPREXA] AdvReac Unknown PT REPORTS Verified 10/09/24 15:16 FEELS LIKE I AM ON AN ACID TRIP Assessment & Plan Assessment & Plan (1) MDD (major depressive disorder), recurrent episode, moderate: Status: Acute Code(s): F33.1 - Major depressive disorder, recurrent, moderate (2) ADHD (attention deficit hyperactivity disorder): Status: Acute Code(s): F90.9 - Attention-deficit hyperactivity disorder, unspecified type (3) Opioid use disorder, severe, dependence: Status: Acute Code(s): F11.20 - Opioid dependence, uncomplicated (4) Suicide attempt: Status: Acute Code(s): T14.91XA - Suicide attempt, initial encounter Plan Recurrent Major Depression, s/p suicide attempt, ADHD, Opiate Use Disorder. Plan: Admit, CV, 15 minute checks Diagnostics as needed Collateral contact Medication re-establishment and titration as needed Encourage full milieu Discharge/Out Pt planning 10/15/24 Continue tx Zofran prn 10/17/24 KUB results are pending Dulcolax has been given-results are pending Continue current plan, regime Stronger laxative as needed 10/19/24 continue tx Time Spent With Patient Time: Total time managing care of this patient today ____ minutes.
[2024-10-20 10:20] LABS: MANUAL DIFF FLAG NO
[2024-10-20 10:25] LABS: Basophils Percent Auto 0.2 % (0-2); Eosinophils Absolute Auto 0.1 X10*3/uL (0.0-0.4); Eosinophils Percent Auto 0.4 % (0-4); Hematocrit 41.8 % (42.0-52.0); Hemoglobin 13.5 g/dl (14.0-18.0); Imm Gran Abs Auto 0.04 X10*3/uL (0.00-0.03); Imm Gran Pct Auto 0.3 % (0.0-0.4); Lymphocytes Absolute Auto 0.7 X10*3/uL (1.2-4.9); Lymphocytes Percent Auto 5.3 % (20-40); Mean Corpuscular HGB Conc 32.3 g/dl (31.0-36.0); Mean Corpuscular Hemoglobin 28.1 pg (27.0-33.0); Mean Corpuscular Volume 86.9 fL (80.0-98.0); Mean Platelet Volume 9.2 fL (9.4-12.4); Monocytes Absolute Auto 0.6 X10*3/uL (0.1-1.2); Monocytes Percent Auto 5.3 % (2-11); Neutrophils Absolute Auto 10.8 x10*3/uL (2.0-8.3); Neutrophils Percent Auto 88.5 % (45-73); Platelet Count 218 X10*3/uL (160-400); Red Blood Count 4.81 X10*6/uL (4.60-5.80); Red Cell Distribution Width 13.2 % (11.0-16.0); White Blood Count 12.2 X10*3/uL (4.8-10.8)
[2024-10-20 10:33] VITALS: BP 116/67; PULSE 103; O2SAT 91
[2024-10-20 10:47] LABS: Alanine Aminotransferase 81 U/L (0-40); Albumin Level 4.1 g/dL (3.5-5.0); Anion Gap 13 (12-20); Aspartate Amino Transferase 37 U/L (5-37); Bilirubin Total 0.4 mg/dL (0.0-1.0); Blood Urea Nitrogen 12 mg/dL (9-16); Calcium 9.5 mg/dL (8.4-10.2); Carbon Dioxide 22 mmol/L (22-29); Chloride 105 mmol/L (96-108); Creatinine Clr Calc Pharmacy 142.2; Estimated Glomerular Filt Rate > 60; Glucose Random 148 mg/dL (60-115); Potassium 3.8 mmol/L (3.3-5.1); Sodium 136 mmol/L (135-145); Total Protein 8.4 g/dL (6.5-8.0)
[2024-10-20 11:03] LABS: Alkaline Phosphatase 92 U/L (39-117)
--- NOTE | 2024-10-20 13:34 | PM.PSYDC ---
DS: Providers Provider Date of Service: 10/20/24 <Kaylynn Crook MARINE ENGINE MACHINIST APPRENTICE - Last Filed: 10/20/24 13:55> Date of admission: 10/13/24 15:57 <Kaylynn Crook MARINE ENGINE MACHINIST APPRENTICE - Last Filed: 10/20/24 13:55> Date of discharge: 10/20/24 <Kaylynn Crook MARINE ENGINE MACHINIST APPRENTICE - Last Filed: 10/20/24 13:55> Primary care physician: Unknown Physician <Kaylynn Crook MARINE ENGINE MACHINIST APPRENTICE - Last Filed: 10/20/24 13:55> Admitting clinician: Kaylynn Crook <Kaylynn Crook MARINE ENGINE MACHINIST APPRENTICE - Last Filed: 10/20/24 13:55> Attending physician on admission: Jeff Brewer <Kaylynn Crook, MARINE ENGINE MACHINIST APPRENTICE - Last Filed: 10/20/24 13:55> Consults: 10/16/24 20:03 Consult to Hospitalist Routine Comment: reports no BM x 12 days Consulting Provider: [facility] Reason For Exam: nausea,vomiting, kub ordered 10/20/24 08:55 Consult to Hospitalist Routine Comment: Consulting Provider: [facility] Reason For Exam: R rib pain, O2 sat 90. cxr,ekg, labs pending <Kaylynn Crook MARINE ENGINE MACHINIST APPRENTICE - Last Filed: 10/20/24 13:55> Attending physician on discharge: Jeff Brewer <Kaylynn Crook, MARINE ENGINE MACHINIST APPRENTICE - Last Filed: 10/20/24 13:55> Discharging clinician: Kaylynn Crook <Kaylynn Crook MARINE ENGINE MACHINIST APPRENTICE - Last Filed: 10/20/24 13:55> DS: Diagnosis Discharge Diagnosis (1) MDD (major depressive disorder), recurrent episode, moderate: Status: Acute <Kaylynn Corok MARINE ENGINE MACHINIST APPRENTICE - Last Filed: 10/20/24 13:55> (2) ADHD (attention deficit hyperactivity disorder): Status: Acute <Kaylynn Crook MARINE ENGINE MACHINIST APPRENTICE - Last Filed: 10/20/24 13:55> (3) Opioid use disorder, severe, dependence: Status: Acute <Kaylynn CrookONELIAN - Last Filed: 10/20/24 13:55> (4) Suicide attempt: Status: Acute <Kaylynn CrookONELIAN - Last Filed: 10/20/24 13:55> DS: Medications Discharge Medications Home Medications: Home Medications ?Medication ?Instructions ?Recorded ?Confirmed docusate sodium 100 mg capsule 100 mg PO BID PRN Constipation 10/25/23 10/13/24 methadone 10 mg/mL oral 175 mg PO DAILY 10/25/23 10/13/24 concentrate (Methadose) famotidine 20 mg tablet 20 mg PO BID 10/10/24 10/13/24 prazosin 2 mg capsule 4 mg PO BEDTIME 10/10/24 10/13/24 quetiapine 200 mg tablet (Seroquel) 200 mg PO BEDTIME 10/10/24 10/13/24 Previous Rx's ?Medication ?Instructions ?Recorded amitriptyline 25 mg tablet 25 mg PO BEDTIME 30 days #30 tabs 09/09/23 buspirone 30 mg tablet 30 mg PO TID 30 days #90 tabs 09/09/23 gabapentin 800 mg tablet 800 mg PO TID 30 days #90 tabs 09/09/23 <Kaylynn CrookONELIAN - Last Filed: 10/20/24 13:55> Mental Status Exam Mental Status Exam Patient Appearance: Fatigued <Kaylynn MorrisONELIA moralesN - Last Filed: 10/20/24 13:55> Patient Orientation: Person, Place, Time and Situation <Kaylynn MorrisONELIA moralesN - Last Filed: 10/20/24 13:55> Level of Consciousness: Alert <Kaylynn MorrisONELIA moralesN - Last Filed: 10/20/24 13:55> Patient Behavior: Appropriate, Talkative, Cooperative and Good Eye Contact <Kaylynn WolfJulianDamienONELIA moralesN - Last Filed: 10/20/24 13:55> Mood Description: Withdrawn and Depressed <Kaylynn Nishant VenturaramonDamienONELIA moralesN - Last Filed: 10/20/24 13:55> Affect Description: Flat <Kaylynn Crook APRN - Last Filed: 10/20/24 13:55> Patient Cognition Impaired: No <[facility] Last Filed: 10/20/24 13:55> Ability to Follow Directions: Good <[facility] Last Filed: 10/20/24 13:55> Speech Pattern: Spontaneous Speech <[facility] Last Filed: 10/20/24 13:55> Memory Description: Episodic Impaired <[facility] Last Filed: 10/20/24 13:55> Hallucinations: None <[facility] Last Filed: 10/20/24 13:55> Delusions: Not Present <[facility] Last Filed: 10/20/24 13:55> Thought Process: Rumination <[facility] Last Filed: 10/20/24 13:55> Thought Content: positive for Circumstantial and positive for Perseveration <[facility] Last Filed: 10/20/24 13:55> Depressive Symptoms: Increased Anxiety and Increased Fatigue <[facility] Last Filed: 10/20/24 13:55> Judgement: Fair <[facility] Last Filed: 10/20/24 13:55> Data Data Completed and Pending Completed studies during hospitalization [Text1]: 10/16/24 10/17/24 10/17/24 15:55 07:54 21:50 WBC RBC Hgb Hct MCV MCH MCHC RDW Plt Count MPV Immature Gran % (Auto) Neut % (Auto) Lymph % (Auto) [place] % (Auto) Eos % (Auto) Baso % (Auto) Lymph # (Auto) [place] # (Auto) Eos # (Auto) Baso # (Auto) Abs Immat Gran (auto) Absolute Neuts (auto) Absolute Nucleated RBC Nucleated RBC % (auto) Sodium Potassium Chloride Carbon Dioxide Anion Gap BUN Creatinine Estim Creat Clear Calc Estimated GFR Random Glucose Estimat Average Glucose 111 Hemoglobin A1c % 5.5 Calcium Total Bilirubin AST ALT Alkaline Phosphatase B-Natriuretic Peptide Total Protein Albumin Triglycerides 68 Cholesterol 121 LDL Cholesterol, Calc 76 HDL Cholesterol 32 L TSH 3.36 Influenza Type A (PCR) NEGATIVE NEGATIVE Influenza Type B (PCR) NEGATIVE NEGATIVE RSV RNA Qual (PCR) NEGATIVE NEGATIVE SARS-CoV-2 RNA (RT-PCR) NEGATIVE NEGATIVE 10/20/24 10/20/24 10:05 13:27 WBC 12.2 H RBC 4.81 Hgb 13.5 L Hct 41.8 L MCV 86.9 MCH 28.1 MCHC 32.3 RDW 13.2 Plt Count 218 D MPV 9.2 L Immature Gran % (Auto) 0.3 Neut % (Auto) 88.5 H Lymph % (Auto) 5.3 L [place] % (Auto) 5.3 Eos % (Auto) 0.4 Baso % (Auto) 0.2 Lymph # (Auto) 0.7 L [place] # (Auto) 0.6 Eos # (Auto) 0.1 Baso # (Auto) 0.0 Abs Immat Gran (auto) 0.04 H Absolute Neuts (auto) 10.8 H Absolute Nucleated RBC 0.000 Nucleated RBC % (auto) 0.0 Sodium 136 Potassium 3.8 Chloride 105 Carbon Dioxide 22 Anion Gap 13 BUN 12 Creatinine 0.82 Estim Creat Clear Calc 142.2 Estimated GFR > 60 Random Glucose 148 H Estimat Average Glucose Hemoglobin A1c % Calcium 9.5 Total Bilirubin 0.4 AST 37 ALT 81 H Alkaline Phosphatase 92 B-Natriuretic Peptide Pending Total Protein 8.4 H Albumin 4.1 Triglycerides Cholesterol LDL Cholesterol, Calc HDL Cholesterol TSH Influenza Type A (PCR) Influenza Type B (PCR) RSV RNA Qual (PCR) SARS-CoV-2 RNA (RT-PCR) <Kaylynn Crook, MARINE ENGINE MACHINIST APPRENTICE - Last Filed: 10/20/24 13:55> Imaging Diagnostic Imaging Impressions Ankle X-Ray 10/14/24 15:30 IMPRESSION: 1. No acute fracture or dislocation. 2. Asymmetric ankle mortise with medial widening and lateral narrowing, suggesting instability. This has progressed significantly. There is a possible osteochondral lesion versus focus of AVN involving the lateral talar dome. 3. Progressive moderate tibiotalar and fibulotalar joint degenerative arthropathy, with complete loss of the fibulotalar joint space as detailed. 4. Subchondral sclerosis abutting the posterior facet subtalar joint. 5. Diffuse soft tissue swelling with ankle joint effusion. Electronically signed by: Narinder Sarabia MD 10/14/2024 04:02 PM EST RP Chest X-Ray 10/20/24 09:10 IMPRESSION: Pulmonary edema versus multifocal pneumonia versus pneumonitis versus pulmonary hemorrhage among other etiologies. Electronically signed by: Esa Anders MD 10/20/2024 09:54 AM EST RP Chest CT 10/20/24 12:06 IMPRESSION: There is a interval significant abnormality involving the entire right lung. Differential diagnosis includes interstitial pneumonitis, edema, parenchymal infiltrates or combination. The left lung is clear. No abnormal mediastinal or axillary lymphadenopathy. Fleischner guidelines were followed. Electronically signed by: Rodriguez Rees MD 10/20/2024 01:21 PM EST RP <Kaylynn Crook APRN - Last Filed: 10/20/24 13:55> DS: Summary Hospital Course Hospital Course: Admission to adult psychiatry from medicine s/p overdose of IV heroin/fentanyl requiring Narcan. Medications were reviewed and restarted. Pt began to plan his next treatment intervention with team. Pt was seen by hospitalist services for severe constipation and interventions have started to be effective. Today pt reports R rib pain, O2 sat 90. Diagnostics indicate need for medical admission. lung ct shows significant r lung abnormalities pt with hypoxia. Pt may return to [facility] when medical treatment is completed. <Kaylynn Crook APRN - Last Filed: 10/20/24 13:55> Status at Discharge Functional status at discharge: independent ambulation <Kaylynn Crook APRN - Last Filed: 10/20/24 13:55> Overall status at discharge: patient is progressing back to baseline <Kaylynn Crook APRN - Last Filed: 10/20/24 13:55> other (medically unstable transfer to med floor for w/u and tx) <Jeff Brewer MD - Last Filed: 10/20/24 14:02> Time Spent with Patient Time attestation: Total time managing care of this patient today ____ minutes. <Kaylynn Nishant EULALIO Crook - Last Filed: 10/20/24 13:55> Time spent: Less than 30 minutes <Kaylynn Crook APRN - Last Filed: 10/20/24 13:55> Discharge Plan Discharge Anticipated Discharge Date/Time: 10/20/24 14:00 <Kaylynn Crook APRN - Last Filed: 10/20/24 13:55> Patient Disposition: [facility] <Kaylynn Crook APRN - Last Filed: 10/20/24 13:55> Discharge Diagnosis: Recurrent Major Depression Opiate Use Disorder Constipation <Kaylynn Crook APRN - Last Filed: 10/20/24 13:55> Recurrent Major Depression Opiate Use Disorder Constipation <Jeff Brewer MD - Last Filed: 10/20/24 14:02> Referrals: Physician,Unknown J [Primary Care Provider] - 1 Week <Kaylynn Crook APRN - Last Filed: 10/20/24 13:55> Discharge Medications: New acetaminophen 325 mg Tablet 650 mg PO Q6H PRN (Reason: Pain 1-10) Qty: 0 0RF nicotine (polacrilex) 2 mg Gum 4 mg buccal Q2H PRN (Reason: Nicotine Cravings) Qty: 0 0RF prazosin 1 mg Capsule 4 mg PO BEDTIME Qty: 0 0RF Protocol: Hold for SBP< HOLD for SBP < : 90 gabapentin 400 mg Capsule 800 mg PO TID Qty: 0 0RF quetiapine 200 mg Tablet 200 mg PO BEDTIME Qty: 0 0RF famotidine 20 mg Tablet 20 mg PO BID Qty: 0 0RF amitriptyline 25 mg Tablet 25 mg PO BEDTIME Qty: 0 0RF magnesium hydroxide [Milk of Magnesia] 400 mg/5 mL Suspension 30 ml PO DAILY PRN (Reason: Constipation,severe) Qty: 0 0RF buspirone 10 mg Tablet 30 mg PO TID Qty: 0 0RF dextroamphetamine-amphetamine 20 mg Tablet 30 mg PO 1400 Qty: 0 0RF Rx Instructions: Partial Fill upon patient request. docusate sodium 100 mg Capsule 200 mg PO BID Qty: 0 0RF dextroamphetamine-amphetamine [Adderall XR] 10 mg Capsule,Extended Release 24hr 30 mg PO DAILY Qty: 0 0RF Rx Instructions: Partial Fill upon patient request. zolpidem 5 mg Tablet 10 mg PO BEDTIME PRN (Reason: Insomnia) Qty: 0 0RF methadone [Methadose] 10 mg/mL Concentrate 175 mg PO DAILY@0800 Qty: 0 0RF Rx Instructions: Partial Fill upon patient request. albuterol sulfate [Ventolin HFA] 90 mcg/actuation Hfa Aerosol Inhaler 2 puff inhalation RQ4H PRN (Reason: Wheezing) Qty: 0 0RF bupropion HCl 150 mg Tablet Extended Release 24 Hr 150 mg PO DAILY Qty: 0 0RF MAG-AL 200-200 mg/5 mL Suspension 30 ml PO Q6H PRN (Reason: Heartburn/Nausea) Qty: 0 0RF lactulose 20 gram/30 mL Solution 30 g PO DAILY Qty: 0 0RF polyethylene glycol 3350 17 gram Powder In Packet 17 g PO BID Qty: 0 0RF triamcinolone acetonide 0.1 % Cream 1 appl topical BID Qty: 0 0RF Protocol: Apply to: Apply to: face ondansetron 4 mg Tablet,Disintegrating 4 mg translingual Q6H PRN (Reason: Nausea And Vomiting) Qty: 0 0RF Dermacerin Cream 1 appl topical BID Qty: 0 0RF Protocol: Apply to: Apply to: affected areas naloxone [Narcan] 4 mg/actuation spray,non-aerosol 4 mg intranasal Q2M PRN (Reason: opioid overdose) Qty: 2 0RF Rx Instructions: spray 1 dose into ONE nostril; alternate nostrils w each dose until help arrives Discontinued docusate sodium 100 mg capsule 100 mg PO BID PRN (Reason: Constipation) methadone [Methadose] 10 mg/mL concentrate 175 mg PO DAILY Rx Instructions: Partial Fill upon patient request. quetiapine [Seroquel] 200 mg Tablet 200 mg PO BEDTIME famotidine 20 mg Tablet 20 mg PO BID prazosin 2 mg Capsule 4 mg PO BEDTIME gabapentin 800 mg tablet 800 mg PO TID 30 Days Qty: 90 0RF buspirone 30 mg tablet 30 mg PO TID 30 Days Qty: 90 0RF amitriptyline 25 mg tablet 25 mg PO BEDTIME 30 Days Qty: 30 0RF <Kaylynn Crook APRN - Last Filed: 10/20/24 13:55> Discharge Orders: Discharge Order (Routine); Ordered 10/20/24 Ordered By: Kaylynn Crook <Kaylynn Crook APRN - Last Filed: 10/20/24 13:55> Diet: Advance to usual diet <Kaylynn Crook APRN - Last Filed: 10/20/24 13:55> Advance to usual diet <Jeff Brewer MD - Last Filed: 10/20/24 14:02> Activity on Discharge: As tolerated <Kaylynn Crook APRN - Last Filed: 10/20/24 13:55> As tolerated <Jeff Brewer MD - Last Filed: 10/20/24 14:02> Stand Alone Forms: Patient Portal Discharge page <Kaylynn Crook APRN - Last Filed: 10/20/24 13:55> Print Language: Azeri <Kaylynn Crook APRN - Last Filed: 10/20/24 13:55> Care Plan Goals: Medical Stabilization <Kaylynn Crook APRN - Last Filed: 10/20/24 13:55> Health Concerns: Medical Stabilization <Kaylynn Crook APRN - Last Filed: 10/20/24 13:55> Plan of Treatment: Transfer to medicine <Kaylynn Crook APRN - Last Filed: 10/20/24 13:55> Assessment: Alert, oriented, aware of need for transfer <Kaylynn Crook APRN - Last Filed: 10/20/24 13:55>
[2024-10-20] MEDS: Amphetamine Mixed Salts 20 MG TABLET 30 MG PO (13:54)
[2024-10-20 14:00] LABS: B Type Natriuretic Peptide 30 pg/mL (<100)
== END 2024-10-20 14:14 | disposition short-term general hospital (02) | DRG 751 ==
PROVIDERS: Nurse Practitioner Acute Care; Physician Assistant; Admitting Provider Psychiatry & Neurology Psychiatry; Visit Provider Clinical Nurse Specialist Psychiatric/Mental Health, Adult
DX: F33.1 Major depressive disorder, recurrent, moderate (principal); F11.20 Opioid dependence, uncomplicated; F90.9 Attention-deficit hyperactivity disorder, unspecified type; Z20.822 Contact with and (suspected) exposure to COVID-19; Z91.51 Personal history of suicidal behavior; Z79.899 Other long term (current) drug therapy
CPT/HCPCS: 0241U; 36415; 71046; 71250; 73610; 74018; 80053; 80061; 83036; 83880; 84443; 85025; 93005

== ENCOUNTER → 2024-10-13 15:57 | Outpatient (BNV) | payer MEDICAID, SELFPAY | PROVIDERS: Admitting Provider Psychiatry & Neurology Psychiatry; Visit Provider Physician Assistant | DX: K59.00 Constipation, unspecified (principal) | CPT/HCPCS: 99222 ==

== ENCOUNTER → 2024-10-13 15:57 | Outpatient (BNV) | payer OTHER, SELFPAY | PROVIDERS: Admitting Provider Psychiatry & Neurology Psychiatry; Visit Provider Clinical Nurse Specialist Psychiatric/Mental Health, Adult | DX: F33.1 Major depressive disorder, recurrent, moderate (principal); F90.9 Attention-deficit hyperactivity disorder, unspecified type; F11.20 Opioid dependence, uncomplicated; T14.91XA Suicide attempt, initial encounter | CPT/HCPCS: 99232; 99233 ==

== ENCOUNTER 2024-10-20 14:19 | Inpatient (IN) | payer MEDICAID, SELFPAY ==
[2024-10-20 14:46] VITALS: BMI 37.7
[2024-10-20 15:00] VITALS: BP 132/85; PULSE 103; RESP 18; TEMP 36.9; O2SAT 94
[2024-10-20 15:31] VITALS: BP 132/85; PULSE 103; RESP 18; TEMP 36.9; O2SAT 94
[2024-10-20] MEDS: vancomycin/NS 2,000 MG/500 ML PLAST..BAG 250 MG IV (15:52)
[2024-10-20] MEDS: 0.9 % Sodium Chloride Flush 3 ML SYRINGE IVFLUSH ×2 (15:53→23:53)
[2024-10-20 16:21] LABS: Creatinine Clr Calc Pharmacy 169.3; Estimated Glomerular Filt Rate > 60
--- NOTE | 2024-10-20 16:41 | PHA.PROG ---
Admission Date/Time: October 20, 2024 14:19 Indication: Respiratory Weight in k.1 kg Serum Creatinine - Last 168 Hours 10/20/24 15:14 Creatinine 0.69 Estimated CrCl and GFR - Last 168 Hours 10/20/24 15:14 Estim Creat Clear Calc 169.3 Estimated GFR > 60 Vancomycin Loading Dose: 2,000 mg Current Vancomycin Dosing Regimen: 1,000 mg q8h Vancomycin Monitoring using AUC goal of 400 - 600 range with trough as surrogate marker: 551, predicted trough 18.8 Date and Time for next Vancomycin Level to be drawn: 10/21 @ 1400 Pharmacist Comments on Vancomycin Plan: Vancomycin dosing will take advantage of [facility] as a clinical decision support tool that uses Bayesian modeling to calculate individual patient's pharmacokinetic parameters and forecast the patient's drug concentration time course with the target goal AUC 24 range of 400 - 600 mg/L/hr.
[2024-10-20] MEDS: Magnesium Citrate 300 ML SOLUTION PO (16:45)
--- OUTSIDE RECORDS SUMMARY | 2024-10-20 16:45 | XMS_ITS | Data Portability ---
Author Organization [facility], , [facility] Address [address] [place] [address] Assessment No assessment recorded. Plan of Treatment Reminders Order Date Submit Date Provider Last Modified By Organization Details Last Modified Time Details Appointments None recorded. Lab hepatitis C, RNA quant w/rfl genotype 2012 013 [facility], [address] [place] [address], [id number], 3 04:12:19 liver function test 2012 013 [facility], [address] [place] [address], [id number], 3 04:12:19 HIV 1 HIV 2 Ab (EIA w/ reflex) 2012 013 [facility], [address] [place] [address], [address], 3 04:12:19 Referral urgent care/ER referral - pt with history of IV heroin use. interested in suboxone treatment.- -per pt he is changing to [facility] insurance 2012 013 contreras Vicente ([facility]), [address] [place], [address], 3 07:32:47 ophthalmolo gist referral - pt [...] not yet have records. 2012 Brannon chairez [facility], [address] [place], [address], 3 07:44:39 gastroenter ologist referral - please see attached labs. pt believes he acquired hepatitis c from a shared needle with father. has never been treated. lfts within normal limits. referral to GI today. pt is tolerating suboxone. clean x 3 days. 2012 0618/2 013 [facility], [address] [place], [address], 3 04:15:25 Procedures None recorded. Surgeries None recorded. Imaging None recorded. Medication Orders None recorded. Patient TargetsNo targets recorded. Patient InstructionsNo instructions recorded. Reason for Referral pt with history of IV heroin use. interested in suboxone treatment.--per pt he is changing to [facility] insurance Referring Physician: Griselda Gomez [facility], Encounter Date: 02/26/2013 please see attached labs. pt believes he acquired hepatitis c from a shared needle with father. has never been treated. lfts within normal limits. referral to GI today. pt is tolerating suboxone. clean x 3 days. Referring Physician: Griselda Gomez [facility], Encounter Date: 03/05/2013 pt new to [...] yet have records. Referring Physician: Griselda Gomez [facility], Encounter Date: 03/05/2013 Results Created Date Observation Date Name Description Value Unit Range Abnormal Flag Note LastModifiedBy Organization Detail LastModifiedTime 02/27/20 13 02/26/2013 liver funct ion test total protein 7.8 g/dL 6.4-8. 2 Not Available [facility] [address], [place], [address], 02/26/2013 16:21:24 02/27/20 13 02/26/2013 liver funct ion test albumin 4.0 g/dL 3.4-5. 0 Not Available [address], [address], 02/26/2013 16:21:24 02/27/20 13 02/26/2013 liver funct ion test globulin 3.8 g/dL Not Available [address], [address], 02/26/2013 16:21:24 02/27/20 13 02/26/2013 liver funct ion test A/G 1.1 ratio 0.8-2. 0 Not Available [address], [address], 02/26/2013 16:21:24 02/27/20 13 02/26/2013 liver funct ion test total bilirubin 0.40 mg/dL 0.00-1 .00 Not Available [address], [address], 02/26/2013 16:21:24 02/27/20 13 02/26/2013 liver funct ion test direct bilirubin 0.10 mg/dL 0.00-0 .30 Not Available [address], [address], 02/26/2013 16:21:24 02/27/20 13 02/26/2013 liver funct ion test AST 26 U/L 15-37 Not Available [address], [address], 02/26/2013 16:21:24 02/27/20 13 02/26/2013 liver funct ion test ALT 57 U/L 30-65 Not Available [address], [address], 02/26/2013 16:21:24 02/27/20 13 02/26/2013 liver funct ion test alk. phos. 117 U/L 50-136 Not Available [address], [address], 02/26/2013 16:21:24 02/27/20 13 03/01/2013 HIV Ab [...] recom zackery d. Not Available [facility] [address], [address], 03/01/2013 12:41:49 02/27/20 13 03/02/2013 hepat itis C, RNA quant w/rfl genot ype HCV RNA, quantitative real time PCR [id number] IU/mL <43 high Not Available [facility] [address], [address], 03/02/2013 17:07:28 02/27/20 13 03/02/2013 hepat itis [...] taqma n(R) HCV test kit (roch e Tirendo ular [employer] for more infor omar n on this test, go to http: //yury pringle stdia gnost ics.c om/fa q/HCV -RNA- PCR the perfo rmanc e nereida cteri stics of this assay have been deter mined by [employer] ostic s lyudmila bibi insti ivane. perfo rmanc e nereida cteri stics refer to the lacy tical perfo rmanc e of the test. Not Available [facility] [address], [place], [address], 03/02/2013 17:07:28 02/27/20 13 03/02/2013 hepat itis C genot ype HCV genotype, lipa 1a these resul ts were revie wed by getachew nguyen , pH.D. , direc tor of Tirendo ulne [employer] ostic s. the accut ype(R ) il28b [...] whole blood sampl e for test code 96330 . the metho d used in this test IS RT-PC R and rever se hybri dizat ion (line probe ) of the 5' utr and core regio n of the HCV genom e. this test was devel oped and its perfo rmanc e nereida cteri stics have been deter mined by [employer] ostic s lyudmila bibi insti lori, tiana limon. IT has not been clear ed or appro germania by the U.S. food and drug admin [...] ics.c om/fa q/hcv genot yping Not Available [facility] [address], [place], [address], 03/02/2013 17:07:30 03/12/20 13 03/12/2013 drug scree n, urine canna., urine scr Positi ve abnormal cutof f: 50 NG/mL Not Available [facility] (Out[facility] [address] [place] [address], [address], 03/12/2013 13:31:36 03/12/20 13 03/12/2013 drug scree n, urine cocaine,urin escreen Positi ve abnormal cutof f: 300 NG/mL Not Available [facility] (Outpatient) [address] [place] [address], [address], 03/12/2013 13:31:36 03/12/20 13 03/12/2013 drug scree n, urine kimberli,urine None Detect ed cutof f: 200 NG/mL Not Available [facility] (Outpatient) [address] [place] [address], [address], 03/12/2013 13:31:36 03/12/20 13 03/12/2013 drug scree n, urine M-amphetamin es, urine screen None Detect ed cutof f: 1000 NG/mL Not Available [facility] (Outpatient) [address] [place] [address], [address], 03/12/2013 13:31:36 03/12/20 13 03/12/2013 drug scree n, urine methadone, urine screen None Detect ed cutof f: 300 NG/mL Not Available [facility] (Outpatient) [address] [place] [address], [address], 03/12/2013 13:31:36 03/12/20 13 03/12/2013 drug scree n, urine opiates, urine screen Positi ve abnormal cutof f: 300 NG/mL Not Available [facility] (Outpatient) [address] [place], [address], 03/12/2013 13:31:36 03/12/20 13 03/12/2013 drug scree n, urine phencyclidin e, urine SC None Detect ed cutof f: 25 NG/mL Not Available [facility] (Outpatient) [address] [place] [address], [address], 03/12/2013 13:31:36 03/12/20 13 03/12/2013 drug scree n, urine barbiturates , urine None Detect ed cutof f: 200 NG/mL inter preta tion for toxic ology panel : thes e resul ts are uncon firme d and shoul d BE used for medic al treat ment purpo ses only. Not Available [facility] (Outpatient) [address] [place], [address], 03/12/2013 13:31:36 03/12/20 13 03/12/2013 drug scree n, urine oxycodone, urine qualitative None Detect ed cutof f: 100 NG/mL Not Available [facility] (Outpatient) [address] [place] [address], [address], 03/12/2013 13:31:36 03/22/20 13 03/22/2013 CBC w/dif f WBC 4.5 K/uL 3.4-11 .2 Not Available [facility] ([facility]) [address] [place] [address], [address], 04/22/2013 10:24:57 03/22/20 13 03/22/2013 CBC w/dif f RBC 4.93 M/uL 4.50-5 .50 Not Available [facility] (Out[facility]) [address] [place], [address], 04/22/2013 10:24:57 03/22/20 13 03/22/2013 CBC w/dif f hemoglobin 13.7 g/dL 13.0-1 7.0 Not Available [facility] ([facility]) [address] [place] [address], [address], 04/22/2013 10:24:57 03/22/20 13 03/22/2013 CBC w/dif f hematocrit 41.7 % 40.0-5 1.0 Not Available [facility] ([facility]) [address] [place] [address], [address], 04/22/2013 10:24:57 03/22/20 13 03/22/2013 CBC w/dif f MCV 84.6 fL 79.0-9 8.0 Not Available [facility] ([facility]) [address] [place] [address], [address], 04/22/2013 10:24:57 03/22/20 13 03/22/2013 CBC w/dif f MCH 27.8 pg 27.0-3 4.8 Not Available [facility] ([facility]) [address] [place] [address], [address], 04/22/2013 10:24:57 03/22/20 13 03/22/2013 CBC w/dif f MCHC 32.9 g/dL 31.5-3 6.0 Not Available [facility] ([facility]) [address] [place] [address], [address], 04/22/2013 10:24:57 03/22/20 13 03/22/2013 CBC w/dif f RDW 14.9 % 10.8-1 4.6 high Not Available [facility]) [address] [place] [address], [address], 04/22/2013 10:24:57 03/22/20 13 03/22/2013 CBC w/dif f MPV 9.1 fL 7.2-10 .5 Not Available [facility]) [address] [place] [address], [address], 04/22/2013 10:24:57 03/22/20 13 03/22/2013 CBC w/dif f platelet count 334 K/uL 130-40 0 Not Available [facility] [address] [place] [address], [address], 04/22/2013 10:24:57 03/22/20 13 03/22/2013 CBC w/dif f neutrophils 57.8 % 45.3-7 7.7 Not Available [facility] [address] [place] [address], [address], 04/22/2013 10:24:57 03/22/20 13 03/22/2013 CBC w/dif f lymphocytes 31.2 % 12.3-3 9.7 Not Available [facility] ([facility]) [address] [place] [address], [address], 04/22/2013 10:24:57 03/22/20 13 03/22/2013 CBC w/dif f monocytes 9.2 % 4.1-12 .8 Not Available [facility] ([facility]) [address] [place] [address], [address], 04/22/2013 10:24:57 03/22/20 13 03/22/2013 CBC w/dif f eosinophils 0.90 % 0.00-7 .20 Not Available [facility] ([facility]) [address] [place] [address], [address], 04/22/2013 10:24:57 03/22/20 13 03/22/2013 CBC w/dif f basophils 0.70 % 0.00-2 .80 Not Available [facility] ([facility]) [address] [place] [address], [address], 04/22/2013 10:24:57 03/22/20 13 03/22/2013 CBC w/dif f absolute neutrophil 2.6 K/uL 1.4-7. 7 Not Available [facility] ([facility]) [address] [place] [address], [address], 04/22/2013 10:24:57 03/22/20 13 03/22/2013 CBC w/dif f absolute lymphocyte 1.4 K/uL 0.6-3. 2 Not Available [facility] ([facility]) [address] [place] [address], [address], 04/22/2013 10:24:57 03/22/20 13 03/22/2013 CBC w/dif f absolute monocytes 0.4 K/uL 0.1-0. 6 Not Available [facility] ([facility]) [address] [place] [address], [address], 04/22/2013 10:24:57 03/22/20 13 03/22/2013 CBC w/dif f absolute eosinophil 0.04 K/uL 0.01-0 .50 Not Available [facility] ([facility]) [address] [place] [address], [address], 04/22/2013 10:24:57 03/22/20 13 03/22/2013 CBC w/dif f absolute basophils 0.03 K/uL Not Available [facility] ([facility]) [address] [place] [address], [address], 04/22/2013 10:24:57 03/22/20 13 03/22/2013 CBC w/dif f immature granulocyte 0.20 % 0.00-0 .50 Not Available [facility]) [address] [place] [address], [address], 04/22/2013 10:24:57 03/22/20 13 03/22/2013 CBC w/dif f absolute immature granulocyte 0.01 K/uL 0.00-0 .03 Not Available [facility] [address] [place] [address], [address], 04/22/2013 10:24:57 03/22/20 13 03/22/2013 compr ehens elma metab olic panel glucose 118 mg/dL 70-99 high Not Available [facility] [address] [place], [address], 04/22/2013 10:24:57 03/22/20 13 03/22/2013 compr ehens elma metab olic panel BUN 9 mg/dL 6-19 Not Available [facility] ([facility]) [address] [place], [address], 04/22/2013 10:24:57 03/22/20 13 03/22/2013 compr ehens elma metab olic panel creatinine 0.8 mg/dL 0.5-1. 5 Not Available [facility] [address] [place] [address], [address], 04/22/2013 10:24:57 03/22/20 13 03/22/2013 compr ehens elma metab olic panel GFR >60 Not Available [facility] ([facility]) [address] [place], [address], 04/22/2013 10:24:57 03/22/20 13 03/22/2013 compr ehens elma metab olic panel sodium 138 mEq/L 133-14 5 Not Available [facility]) [address] [place], [address], 04/22/2013 10:24:57 03/22/20 13 03/22/2013 compr ehens elma metab olic panel potassium 3.9 mEq/L 3.3-5. 1 Not Available [facility] ([facility]) [address] [place], [address], 04/22/2013 10:24:57 03/22/20 13 03/22/2013 compr ehens elma metab olic panel chloride 98 mEq/L 96-108 Not Available [facility] ([facility]) [address] [place] [address], [address], 04/22/2013 10:24:57 03/22/20 13 03/22/2013 compr ehens elma metab olic panel CO2 28 mEq/L 21-35 Not Available [facility] ([facility]) [address] [place], [address], 04/22/2013 10:24:57 03/22/20 13 03/22/2013 compr ehens elma metab olic panel calcium 9.5 mg/dL 8.4-10 .3 Not Available [facility] ([facility]) [address] [place], [address], 04/22/2013 10:24:57 03/22/20 13 03/22/2013 compr ehens elma metab olic panel total bilirubin 0.2 mg/dL 0.0-1. 5 Not Available [facility] ([facility]) [address] [place], [address], 04/22/2013 10:24:57 03/22/20 13 03/22/2013 compr ehens elma metab olic panel alkaline phosphatase 84 U/L 39-117 Not Available [facility] ([facility]) [address] [place] [address], [address], 04/22/2013 10:24:57 03/22/20 13 03/22/2013 compr ehens elma metab olic panel AST (SGOT) 38 U/L 0-37 high Not Available [facility] ([facility]) [address] [place], [address], 04/22/2013 10:24:57 03/22/20 13 03/22/2013 compr ehens elma metab olic panel ALT (SGPT) 57 U/L 0-40 high Not Available [facility] ([facility]) [address] [place] [address], [address], 04/22/2013 10:24:57 03/22/20 13 03/22/2013 compr ehens elma metab olic panel total protein 7.5 g/dL 6.5-8. 0 Not Available [facility] ([facility]) [address] [place], [address], 04/22/2013 10:24:57 03/22/20 13 03/22/2013 compr ehens elma metab olic panel albumin 4.4 g/dL 3.9-4. 8 Not Available [facility] ([facility]) [address] [place], [address], 04/22/2013 10:24:57 03/22/20 13 03/22/2013 compr ehens elma metab olic panel globulin 3.1 gm/dL 1.0-4. 8 Not Available [facility] ([facility]) [address] [place] [address], [address], 04/22/2013 10:24:57 03/22/20 13 03/22/2013 compr ehens elma metab olic panel A/G ratio 1.4 gm/dL 1.0-4. 8 Not Available [facility] ([facility]) [address] [place] [address], [address], 04/22/2013 10:24:57 03/22/20 13 03/22/2013 compr ehens elma metab olic panel anion gap 16 mEq/L 10-20 Not Available [facility]) [address] [place] [address], [address], 04/22/2013 10:24:57 03/22/20 13 03/22/2013 justo tin ferritin 39 NG/mL 30-400 Not Available [facility] [address] [place], [address], 04/22/2013 10:24:58 03/22/20 13 03/22/2013 iron defic iency profi le iron 49 mcg/d L 45-160 Not Available [facility] [address] [place] [address], [address], 04/22/2013 10:25:00 03/22/20 13 03/22/2013 iron defic iency profi le UIBC 362 ug/dL 110-37 0 Not Available [facility]) [address] [place] [address], [address], 04/22/2013 10:25:00 03/22/20 13 03/22/2013 iron defic iency profi le total iron binding capacity 411 mL/dL 228-42 8 Not Available [facility] ([facility]) [address] [place] [address], [address], 04/22/2013 10:25:00 03/22/20 13 03/22/2013 iron defic iency profi le transferrin saturation 12 % 20-55 low Not Available [facility] ([facility]) [address] [place] [address], [address], 04/22/2013 10:25:00 03/22/20 13 03/23/2013 hepat itis B surfa ce Ag hep B surface Ag Negati ve negati ve Not Available [facility]) [address] [place] [address], [address], 04/22/2013 10:25:00 03/22/20 13 03/23/2013 hepat itis A Ab w/ igm refle x hepatitis A total Positi ve negati ve Not Available [facility] ([facility]) [address] [place] [address], [address], 04/22/2013 10:24:59 03/22/20 13 03/23/2013 hepat itis B surfa ce Ab hep B surface Ab Positi ve unvac cinat ed: negat elma vacci nated : posit elma Not Available [facility] ([facility]) [address] [place] [address], [address], 04/22/2013 10:24:59 03/22/20 13 03/23/2013 hepat itis A Ab (igm) hepatitis A IgM Negati ve negati ve Not Available [facility] ([facility]) [address] [place] [address], [address], 04/22/2013 10:25:01 03/22/20 13 03/24/2013 MUNA MUNA screen Positi ve negati ve abnormal an MUNA titer has been refle xed. the resul steven yao Not Available [facility] ([facility]) [address] [place] [address], [address], 04/22/2013 10:24:56 03/22/20 13 03/24/2013 MUNA titer homogenous pattern Negati ve <1:160 Not Available [facility] ([facility]) [address] [place] [address], [address], 04/22/2013 10:25:02 03/22/20 13 03/24/2013 MUNA titer peripheral pattern Negati ve <1:160 Not Available [facility] ([facility]) [address] [place] [address], [address], 04/22/2013 10:25:02 03/22/20 13 03/24/2013 MUNA titer speckled pattern 1:80 <1:160 Not Available [facility] ([facility]) [address] [place] [address], [address], 04/22/2013 10:25:02 03/22/20 13 03/24/2013 MUNA titer nucleolar pattern Negati ve <1:160 Not Available [facility] ([facility]) [address] [place] [address], [address], 04/22/2013 10:25:02 03/22/20 13 03/24/2013 MUNA titer centromere pattern Negati ve <1:160 Not Available [facility] ([facility]) [address] [place] [address], [address], 04/22/2013 10:25:02 03/22/20 13 03/26/2013 luis kelle oseguera se panel tiss. trans IgA <1.2 U/mL refer ence range : <4.0 (nega tive) test perfo rmed by: [facility] [place] [address] [facility], [place] [address] [facility]: ruth suh, pH.D. Not Available [facility] ([facility]) [address] [place] [address], [address], 06/14/2013 14:49:56 03/22/20 13 03/26/2013 luis c disea se panel gliadin IgG, S <10.0 U refer ence range : <20.0 (nega tive) test perfo rmed by: [facility] [place] [facility] [address] [place] [address] [facility] tor: kar oliveros III, M.D. Not Available [facility] ([facility]) [address] [place] [address], [address], 06/14/2013 14:49:56 03/22/20 13 03/26/2013 luis c disea se panel gliadin IgA, S 10.9 U refer ence range : <20.0 (nega tive) Not Available [facility] ([facility]) [address] [place] [address], [address], 06/14/2013 14:49:56 03/22/20 13 03/26/2013 cerul oplas min ceruloplasmi n, S 27.8 mg/dL refer ence range : 15.0 - 30.0 test perfo rmed by: [facility] [place] [address] [facility], [place] [address] [facility] tor: ruth suh, pH.D. Not Available [facility] (Outpatient) [address] [place] [address], [address], 06/14/2013 14:49:57 03/22/20 13 03/26/2013 hepat itis C, RNA quant itati ve by real time PCR HCV RNA detect/quant , S [id number] 0 IU/mL refer ence range : undet ected resul t in log IU/mL IS 6.58. the quant ifica tion range of this assay IS 43 IU/mL to 69,00 0,000 IU/mL (1.63 log IU/mL to 7.84 log IU/mL ). testi ng was perfo rmed by the laxmi ampli prep/ laxmi taqma n HCV test (susana carbajal [employer] . test perfo rmed by: [facility] [place] [address] [facility], [place] [address] labor atory direc tor: ruth suh, pH.D. Not Available [facility] ([facility]patient) [address] [place] [address], [address], 06/14/2013 14:49:57 03/22/20 13 03/26/2013 hepat itis C genot ype hepatitis C genotyping 1, No Subtyp e refer ence range : undet ected A speci fic subty pe (i.e. 1a, 1b) could not BE assig julio. testi ng was done using the abbot t HCV genot ype II assay . for resea [facility] use only. test perfo rmed by: [facility] [place] [address] [facility] [address] , [place] [address] [facility] atory dire tor: kar oliveros III, M.D. Not Available [facility] ([facility]) [address] [place] [address], [address], 06/14/2013 14:49:58 04/18/20 16 04/18/2016 CBC w/ auto diff WBC 6.6 K/uL 3.4-11 .2 Not Available [address], [address], 04/18/2016 01:43:28 04/18/20 16 04/18/2016 CBC w/ auto diff RBC 4.99 M/uL 4.50-5 .50 Not Available [address], [address], 04/18/2016 01:43:28 04/18/20 16 04/18/2016 CBC w/ auto diff hemoglobin 14.7 g/dL 13.0-1 7.0 Not Available [address], [address], 04/18/2016 01:43:28 04/18/20 16 04/18/2016 CBC w/ auto diff hematocrit 42.0 % 40.0-5 1.0 Not Available [address], [address], 04/18/2016 01:43:28 04/18/20 16 04/18/2016 CBC w/ auto diff MCV 84.2 fL 79.0-9 8.0 Not Available [address], [address], 04/18/2016 01:43:28 04/18/20 16 04/18/2016 CBC w/ auto diff MCH 29.5 pg 27.0-3 4.8 Not Available [address], [address], 04/18/2016 01:43:28 04/18/20 16 04/18/2016 CBC w/ auto diff MCHC 35.0 g/dL 31.5-3 6.0 Not Available [address], [address], 04/18/2016 01:43:28 04/18/20 16 04/18/2016 CBC w/ auto diff RDW 13.0 % 10.8-1 4.6 Not Available [address], [address], 04/18/2016 01:43:28 04/18/20 16 04/18/2016 CBC w/ auto diff MPV 9.4 fL 9.4-12 .4 Not Available [address], [address], 04/18/2016 01:43:28 04/18/20 16 04/18/2016 CBC w/ auto diff platelet count 255 K/uL 130-40 0 Not Available [address], [address], 04/18/2016 01:43:28 04/18/20 16 04/18/2016 CBC w/ auto diff neutrophils 61.6 % 45.3-7 7.7 Not Available [address], [address], 04/18/2016 01:43:28 04/18/20 16 04/18/2016 CBC w/ auto diff lymphocytes 26.0 % 12.3-3 9.7 Not Available [address], [address], 04/18/2016 01:43:28 04/18/20 16 04/18/2016 CBC w/ auto diff monocytes 10.7 % 4.1-12 .8 Not Available [address], [address], 04/18/2016 01:43:28 04/18/20 16 04/18/2016 CBC w/ auto diff eosinophils 1.20 % 0.00-7 .20 Not Available [address], [address], 04/18/2016 01:43:28 04/18/20 16 04/18/2016 CBC w/ auto diff basophils 0.30 % 0.00-2 .80 Not Available [address], [address], 04/18/2016 01:43:28 04/18/20 16 04/18/2016 CBC w/ auto diff absolute neutrophil 4.1 K/uL 1.4-7. 7 Not Available [address], [address], 04/18/2016 01:43:04/18/20 16 04/18/2016 CBC w/ auto diff absolute lymphocyte 1.7 K/uL 0.6-3. 2 Not Available [address], [address], 04/18/2016 01:43:04/18/20 16 04/18/2016 CBC w/ auto diff absolute monocytes 0.7 K/uL 0.1-0. 6 high Not Available [address], [address], 04/18/2016 01:43:28 04/18/20 16 04/18/2016 CBC w/ auto diff absolute eosinophil 0.08 K/uL 0.01-0 .50 Not Available [address], [address], 04/18/2016 01:43:28 04/18/20 16 04/18/2016 CBC w/ auto diff absolute basophils 0.02 K/uL Not Available [address], [address], 04/18/2016 01:43:28 04/18/20 16 04/18/2016 CBC w/ auto diff immature granulocyte 0.20 % 0.00-0 .50 Not Available [address] [address], [address], 04/18/2016 01:43:28 04/18/20 16 04/18/2016 CBC w/ auto diff absolute immature granulocyte 0.01 K/uL 0.00-0 .03 Not Available [address], [address], 04/18/2016 01:43:28 04/18/20 16 04/18/2016 urina lysis , dipst ick, refle x micro color Yellow Not Available [address], [address], 04/18/2016 01:53:43 04/18/20 16 04/18/2016 urina lysis , dipst ick, refle x micro appearance Clear Not Available [address], [address], 04/18/2016 01:53:43 04/18/20 16 04/18/2016 urina lysis , dipst ick, refle x micro specific gravity 1.015 1.005- 1.030 Not Available [address], [address], 04/18/2016 01:53:43 04/18/20 16 04/18/2016 urina lysis , dipst ick, refle x micro pH 6.0 5.0-7. 0 Not Available [address], [address], 04/18/2016 01:53:43 04/18/20 16 04/18/2016 urina lysis , dipst ick, refle x micro protein Negati ve negati ve Not Available [address], [address], 04/18/2016 01:53:43 04/18/20 16 04/18/2016 urina lysis , dipst ick, refle x micro glucose Negati ve negati ve Not Available [address], [address], 04/18/2016 01:53:43 04/18/20 16 04/18/2016 urina lysis , dipst ick, refle x micro ketones Negati ve negati ve Not Available [address], [address], 04/18/2016 01:53:43 04/18/20 16 04/18/2016 urina lysis , dipst ick, refle x micro bilirubin Negati ve negati ve Not Available [address], [address], 04/18/2016 01:53:43 04/18/20 16 04/18/2016 urina lysis , dipst ick, refle x micro blood Negati ve negati ve Not Available [address], [address], 04/18/2016 01:53:43 04/18/20 16 04/18/2016 urina lysis , dipst ick, refle x micro nitrite Negati ve negati ve Not Available [address], [address], 04/18/2016 01:53:43 04/18/20 16 04/18/2016 urina lysis , dipst ick, refle x micro leukocyte esterase Negati ve negati ve Not Available [address], [address], 04/18/2016 01:53:43 04/18/20 16 04/18/2016 ifeoma ol, quant itati ve, serum or plasm a alcohol,ser/ plas. <10 mg/dL <10 Not Available [address], [address], 04/18/2016 02:06:33 04/18/20 16 04/18/2016 salic ylate , quant itati ve, serum salicylate <0.3 mg/dL 2.8-20 .0 low Note: Resul ts less than 2.8 mg/dL are consi dered negat elma. Toxic : Great er than 30.0 mg/dL . Not Available [address], [address], 04/18/2016 02:06:36 04/18/20 16 04/18/2016 CMP, serum or plasm a glucose 106 mg/dL 70-99 high Not Available [address], [address], 04/18/2016 02:06:38 04/18/20 16 04/18/2016 CMP, serum or plasm a BUN 6 mg/dL 6-19 Not Available [address], [address], 04/18/2016 02:06:38 04/18/20 16 04/18/2016 CMP, serum or plasm a creatinine 0.7 mg/dL 0.5-1. 5 Not Available [address], [address], 04/18/2016 02:06:38 04/18/20 16 04/18/2016 CMP, serum [...] ages of 18 and 70. Not Available [address], [address], 04/18/2016 02:06:38 04/18/20 16 04/18/2016 CMP, serum or plasm a sodium 142 mEq/L 133-14 6 Not Available [address], [address], 04/18/2016 02:06:38 04/18/20 16 04/18/2016 CMP, serum or plasm a potassium 3.1 mEq/L 3.3-5. 1 low Not Available [address], [address], 04/18/2016 02:06:38 04/18/20 16 04/18/2016 CMP, serum or plasm a chloride 103 mEq/L 96-108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
--- OUTSIDE RECORDS SUMMARY | 2024-10-20 16:45 | XMS_ITS | Clinical Summary ---
Author Organization [employer] Address [address] [facility] [address] [place] [address] Care Team Providers Care Security Systems Integrator Name Role Phone Raquel Gao MD Primary Care Provider [phone] Allergies Active Allergy Reactions Criticality Noted Date [...] Encounters Date Type Department Care Team Description 10/20/2024 Telephone [facility] MEDICAL [address] [place] [address] Raquel Gao MD Care Coordination; medical update 10/15/2024 [facility] [address] [place] [address] Raquel Gao MD would like to speak with you 10/12/2024 [facility] MEDICAL [address] [place] [address] Raquel Gao MD Care Coordination 10/11/2024 [facility] Health Information Management [address] [place] [address] Raquel Gao MD 10/06/2024 [facility] [address] [place] [address] Raquel Gao MD Med Refill 10/05/2024 [facility] MEDICAL [address] [place] [address] Raquel Gao MD 09/09/2024 [facility] [address] [place] [address] Raquel Gao MD assistance after release from [...] 1984 HIV Screening 1984 SDOH Screening 1984 Alcohol/Substance Use Screening 1996 Family Planning (PISQ) 12/09/1999 Hepatitis C Screening 2002 DTaP/Tdap/Td Vaccines (1 - Tdap) 12/09/2003 Hepatitis A Vaccines (1 of 2 - Risk 2-dose series) 12/09/2003 Hepatitis B Vaccines (1 of 3 - 19+ 3-dose series) 12/09/2003 Pneumococcal Vaccine: Pediat rics (0 to 5 Years) and At-Risk Patients (6 to 49) Years) (1 of 2 - PCV) 12/09/2003 Tobacco Screening 03/26/2024 03/26/2023 COVID-19 Vaccine [...] (08/13/2023) Blood Venous blood specimen / Unknown us Raquel Gao MD LAB BLOOD ORDERABLES Edited Re sult - Final from Last 3 Months or Most Recently Relevant to Health Maintenance Insurance [address] [place], [place] [address] Care Teams Security Systems Integrator Relationship Specialty Start Date End Date Raquel Gao MD [address] [place] [id number] PCP - General Family Medicine 09/30/22
--- OUTSIDE RECORDS SUMMARY | 2024-10-20 16:45 | XMS_ITS | Clinical Summary ---
Author Organization [facility] it Address [address] [place] [address] Care Team Providers Care Post Tensioning Ironworker Helper Name Role Phone Unavailable Primary Care Provider [...]
--- OUTSIDE RECORDS SUMMARY | 2024-10-20 16:45 | XMS_ITS | Encounter Summary ---
Author Organization [email or web address] Address [address] [facility] [address] [place] [address] Care Team Providers Care Estimator Lumber Name Role Phone Raquel Gao MD Primary Care Provider [phone] Reason for Visit * Reason Onset Date Comments Med Refill 10/06/2024 Encounter Details Date Type Department Care Team (Late st Contact Info) Description 10/06/2024 Telephone [facility] MEDICAL [address] [place] [address] Raquel Gao MD [address] [place] [address] Med Refill Social History Tobacco Use Types [...] and send. * Telephone Encounter - Zenaida Tavarez - 10/06/2024 3:02 PM EST Patient called. Patient would like his medications send to the following pharmacy Friday [id number] [place], [place] - [address] [place] [address] AT [facility] [[id number]] documented in this encounter Plan of Treatment Not on file documented as of this encounter Visit Diagnoses Not on filedocumented in this encounter Care Teams Estimator Lumber Relationship Specialty Start Date End Date Raquel Gao MD [address] [place] [address] PCP - General Family Medicine 09/30/22 documented as of this encounter
--- OUTSIDE RECORDS SUMMARY | 2024-10-20 16:45 | XMS_ITS | Encounter Summary ---
Author Organization [employer] Address [address] [place] [address] [address] [place] [address] Care Team Providers Care Weather Strip Installer Name Role Phone Raquel Gao MD Primary Care Provider [phone] Encounter Details Date Type Department Care Team (Late st Contact Info) Description 10/11/2024 Telephone [facility] [address] [place] [address] Raquel Gao MD [address] [place] [address] Social History Tobacco Use Types Packs/Day Years [...] encounter Miscellaneous Notes * Telephone Encounter - Vangie Layne LPN - 10/15/2024 9:41 AM EST Unable to reach patient by phone. Letter mailed to patient. * Telephone Encounter - Nhung Mota LPN - 10/14/2024 8:54 AM EST Attempted to call. Received a message the number you dialed could not be reached. * Telephone Encounter - Pamela Andrews LPN [...] date: Pt may have been admitted Hospital: [facility] Records on file: partial Discharge diagnosis: psych symptoms, SI, substance abuse Patient described events as: upset and hopeless, injected 10 bags of heroin, overdose Follow-up scheduled: attempted to call pt. The number you dialed could not be reached . * Telephone Encounter - Pamela Andrews LPN - 10/11/2024 11:42 AM EST Images from the original note were not included. Pamela Torres to [facility] 10/11/24 11:37 AM Pt was seen at [facility] 10/09, note attached. documented in this encounter Plan of Treatment Not on file documented as of this encounter Visit Diagnoses Not on filedocumented in this encounter Care Teams Weather Strip Installer Relationship Specialty Start Date End Date Raquel Gao MD [address] [place] [address] PCP - General Family Medicine 09/30/22 documented as of this encounter
--- OUTSIDE RECORDS SUMMARY | 2024-10-20 16:45 | XMS_ITS | Encounter Summary ---
Author Organization [employer] Address [address] [facility] [address] [place] [address] Care Team Providers Care Applied Behavior Specialist Name Role Phone Raquel Gao MD Primary Care Provider [phone] Reason for Visit * Reason Onset Date Comments would like to speak with you 10/15/2024 Encounter Details Date Type Department Care Team (Late st Contact Info) Description 10/15/2024 Telephone [facility] MEDICAL [address] [place] [address] Raquel Gao MD [address] [place] [address] would like to speak with you Social History Tobacco Use Types Packs/Day Years [...] Telephone Encounter - Raquel Gao MD - 10/18/2024 3:03 PM EST Spoke to pt and made him an appt. * Telephone Encounter - Bria Gonzalez - 10/18/2024 11:26 AM EST To ZEN to consider calling * Telephone Encounter - Zenaida Tavarez - 10/15/2024 4:20 PM EST Patient called. Patient would like to speak to Dr Gao when she has a free moment. Please use the following number [phone] documented in this encounter Plan of Treatment Not on file documented as of this encounter Visit Diagnoses Not on filedocumented in this encounter Care Teams Applied Behavior Specialist Relationship Specialty Start Date End Date Raquel Gao MD [address] [place] [address] PCP - General Family Medicine 09/30/22 documented as of this encounter
--- OUTSIDE RECORDS SUMMARY | 2024-10-20 16:45 | XMS_ITS | Encounter Summary ---
Author Organization [employer] Address [address] [place] [address] [address] [place] [address] Care Team Providers Care Hepatology Physician Name Role Phone Raquel Gao MD Primary Care Provider [phone] Reason for Visit * Reason Comments Med Refill Encounter Details Date Type Department Care Team (Late st Contact Info) Description 07/22/2023 Refill [facility] MED[facility] [address] [place] [address] Raquel Gao MD [address] [place] [address] Post-traumatic stress disorder, chronic Social History Tobacco [...] chronic documented in this encounter Care Teams Hepatology Physician Relationship Specialty Start Date End Date Raquel Gao MD [address] [place] [id number] PCP - General Family Medicine 09/30/22 documented as of this encounter
--- OUTSIDE RECORDS SUMMARY | 2024-10-20 16:45 | XMS_ITS | Encounter Summary ---
Author Organization [employer] Address [address] [facility] 7[address] [place] [address] Care Team Providers Care Airport Maintenance Laborer Name Role Phone Raquel Gao MD Primary Care Provider [phone] Encounter Details Date Type Department Care Team (Late st Contact Info) Description 08/13/2023 Orders Only [facility] [address] [place] [address] Raquel Gao MD [address] [place] [address] Social History Tobacco Use Types Packs/Day Years [...] on filedocumented in this encounter Care Teams Airport Maintenance Laborer Relationship Specialty Start Date End Date Raquel Gao MD [address] [place] [address] PCP - General Family Medicine 09/30/22 documented as of this encounter
--- OUTSIDE RECORDS SUMMARY | 2024-10-20 16:45 | XMS_ITS | Encounter Summary ---
Author Organization [employer] Address [address] [facility] 7[address] [place] [address] Care Team Providers Care Systems Security Analyst Name Role Phone Raquel Gao MD Primary Care Provider [phone] Reason for Visit * Reason Onset Date Comments assistance after release 09/09/2024 Encounter Details Date Type Department Care Team (Late st Contact Info) Description 09/09/[address] [facility] MEDICAL [address] [place] [address] Raquel Gao MD [address] [place] [address] assistance after release Social History Tobacco Use [...] just until he can get into a long term house. Patient is currently at [facility] in [place] with a projected release date of next month. Patient does not want to go back to [place] or [place] as he wants to stay clean. Please assist Phone number listed for patient to be called back at [facility] [phone] ext [phone]. documented in this encounter Plan of Treatment Not on file documented as of this encounter Visit Diagnoses Not on filedocumented in this encounter Care Teams Systems Security Analyst Relationship Specialty Start Date End Date Raquel Gao MD [address] [place] [address] PCP - General Family Medicine 09/30/22 documented as of this encounter
--- OUTSIDE RECORDS SUMMARY | 2024-10-20 16:45 | XMS_ITS | Encounter Summary ---
Author Organization [employer] Address [address] [place] [address] [address]t [place] [address] Care Team Providers Care Grain Manager Name Role Phone Raquel Gao MD Primary Care Provider [phone] Encounter Details Date Type Department Care Team (Late st Contact Info) Description 10/05/2024 Telephone [facility] MED[facility] [address] [place] [address] Raquel Gao MD [address] [place] [address] Social History Tobacco Use Types Packs/Day Years [...] Ariella Mayers - 10/05/2024 3:15 PM EST [facility] called requesting cb from [phone] Ext [phone], hung up before specifying why documented in this encounter Plan of Treatment Not on file documented as of this encounter Visit Diagnoses Not on filedocumented in this encounter Care Teams Grain Manager Relationship Specialty Start Date End Date Raquel Gao MD [address] [place] [address] PCP - General Family Medicine 09/30/22 documented as of this encounter
--- OUTSIDE RECORDS SUMMARY | 2024-10-20 16:45 | XMS_ITS | Encounter Summary ---
Author Organization [employer] Address [address] [facility] [address] [place] [address] Care Team Providers Care Customer Care Agent Name Role Phone Raquel Gao MD Primary Care Provider [phone] Reason for Visit * Reason Onset Date Comments Care Coordination 10/12/2024 Encounter Details Date Type Department Care Team (Late st Contact Info) Description 10/12/2024 Telephone [place] [facility] MEDICAL [address] [place] [address] Raquel Gao MD [address] [place] [address] Care Coordination Social History Tobacco Use Types [...] spoke to clinician. Pt is inpatient at [facility] for medical and will be transferring [facility] when cleared. Discussed f/u plan. * Telephone Encounter - Ariella Mayers - 10/12/2024 9:12 AM EST Clinician from hospital called, would like to f/u with to discuss substance use after discharge [phone] Option 2 documented in this encounter Plan of Treatment Not on file documented as of this encounter Visit Diagnoses Not on filedocumented in this encounter Care Teams Customer Care Agent Relationship Specialty Start Date End Date Raquel Gao MD [address] [place] [address] PCP - General Family Medicine 09/30/22 documented as of this encounter
[2024-10-20] MEDS: Heparin Sodium,Porcine 5,000 UNIT/ML VIAL 5000 UNIT SUBCUT (16:53)
--- NOTE | 2024-10-20 17:02 | PHA.MEDREC ---
Addendum entered by Lala Oliva 10/20/24 17:06: Patient states he has been getting his Methadone 175 mg daily from here since he was [facility] from [facility], however when he gets discharge he will continue getting it from [facility] in [place]. Original Note: Pharmacy Consult ? Medication Reconciliation Pharmacy has completed the medication reconciliation. Spoke to patient to confirm med list. Patient states he has been here since 10/09/24, he was just discharged from the 4th floor to the third floor. prior to being admitted to [facility] where they were handling his medication *See note from 10/13/23 discharge. Utilized discharge packet to confirm med list.
--- NOTE | 2024-10-20 17:56 | PM.IMHP ---
History of Present Illness Date of Service: 10/20/24 Chief Complaint: Shortness of breaths 38-year-old man admitted to adult psych for mental health care status post overdose of IV heroin/fentanyl requiring Narcan. Today patient reported right rib pain and was noted to have oxygen saturation of 90%. Lung CT scan showed pneumonia and plan was to transfer patient from to medical floor for medical treatment. Patient was not noted to be hypoxic but oxygen saturation was 91% on room air. No fever but tachycardia noted. Mild leukocytosis. Patient will be transferred to medical floor for further treatment. Review of Systems Review of Systems: Denies any recent fever chills or decrease in appetite respiratory see HPI cardiovascular denied chest pain gastrointestinal denies any dysphagia abdominal pain nausea vomiting or diarrhea genitourinary denies any dysuria frequency or hematuria musculoskeletal denies any joint pain or swelling neuropsych denies any weakness or seizures all other systems reviewed are negative PMFSH Medical History Opioid use disorder, severe, dependence Septic arthritis of right ankle Delusional disorder ADHD (attention deficit hyperactivity disorder) MDD (major depressive disorder), recurrent episode, moderate Cellulitis Hepatitis C Opiate abuse, continuous Anterior T wave inversion Pulmonary emboli Multiple abrasions Head injury Suicide attempt Abrasion of face Heroin overdose Opiate abuse, continuous Mood disorder ADHD Major depression with psychotic features Endocarditis DVT (deep venous thrombosis) Severe sepsis Anemia Eye contusion Left upper extremity deep vein thrombosis Hepatitis C IV drug abuse Surgical History Hx of eye surgery S/P left knee arthroscopy History of left knee surgery Social History Household Members: Friend(s) Household Members Other:: aunt Housing: House Housing Other:: hotel everyday Do you presently have visiting nurse or other home services: No Unable to assess alcohol history related to: Unknown Alcohol intake: current Alcohol intake frequency: a few times a week Alcohol type: hard liquor Comment: Sitter 1:1 Patient Tobacco Use Status: Former Tobacco user Tobacco use type: Cigarette Cigarette Packs Per Day: 1.5 Cigarettes Per Day: 25 Years Smoked: 15 Smoked in Last 30 Days: Yes e-Cigarette/Vaping Use: Former Use Patient Interested in Nicotine Replacement: Yes Patient Given Instructions on How to Stop Smoking: No Second Hand Smoke Exposure: Yes Use of substances other than those prescribed or required for medical reasons: Yes Substance Use Type: Marijuana Substance Use Frequency: Occasionally Last Used Substance: Weeks (ago) Currently Displaying Signs/Symptoms of Drug Intoxication Withdrawal: No Any prior treatment program specific to substance use: Yes Have you been hit, kicked, punched, or otherwise hurt by someone within the past year? If so, by whom?: No Do you feel safe in your current relationship?: No Current Relationship Is there a partner from a previous relationship who is making you feel unsafe now?: No Are you made to feel afraid or neglected: No Advance Directives: No Advance Directives Information Provided: No (Not seen) Advance Directives on File: No Do you have a plan to hurt others: No Plan Recently lost weight without trying: No Eating poorly because of decreased appetite: No Nutrition Risks: No Nutritional Risk Poor oral hygiene: No service: No Current occupational status: unemployed Sexual orientation: Straight/Heterosexual Meds Allergies Allergy/AdvReac Type Severity Reaction Status Date / Time haloperidol [From HALDOL] AdvReac Intermediate LOCK JAW Verified 10/09/24 15:16 olanzapine [From ZYPREXA] AdvReac Unknown PT REPORTS Verified 10/09/24 15:16 FEELS LIKE I AM ON AN ACID TRIP Active Medications: Current Medications Acetaminophen (Acetaminophen 325 Mg Tablet) 650 mg PO Q6H PRN PRN Reason: Pain, Mild 1-3,fever,headache Calcium Carbonate (Calcium Carbonate 750 Mg Tab.Chew) 750 mg PO Q4H PRN PRN Reason: Heartburn Docusate Sodium (Docusate Sodium 100 Mg Capsule) 100 mg PO BID [facility] Heparin Sodium (Porcine) (Heparin Sodium,Porcine 5,000 Unit/Ml Vial) 5,000 unit SUBCUT Q12H [facility] Last Admin: 10/20/24 16:53 Dose: 5,000 unit Vancomycin HCl 1,000 mg/ (Sodium Chloride) 270 mls @ 270 mls/hr IV Q8H [facility] Piperacillin Sod/Tazobactam (Sod 3.375 gm/ Sodium Chloride) 50 mls @ 100 mls/hr IV Q6H [facility] Magnesium Hydroxide (Milk Of Magnesia 30 Ml Oral.Susp) 30 ml PO DAILY PRN PRN Reason: Constipation Melatonin (Melatonin 3 Mg Tablet) 6 mg PO BEDTIME PRN PRN Reason: Insomnia Nicotine Polacrilex (Nicotine Polacrilex 2 Mg Gum) 2 mg BUCCAL Q2H PRN PRN Reason: Nicotine Cravings Ondansetron HCl (Ondansetron Hcl 4 Mg/2 Ml Vial) 4 mg IVPUSH Q8H PRN PRN Reason: Nausea and Vomiting Pharmacy Consult (Consult Rx Vancomycin Dosing) 1 each MISCELLANE DAILY PRN PRN Reason: Consult order Senna (Sennosides 8.6 Mg Tablet) 17.2 mg PO DAILY [facility] Sodium Chloride (0.9 % Sodium Chloride Flush 3 Ml Syringe) 3 ml IVFLUSH QSHIFT [facility] Last Admin: 10/20/24 15:53 Dose: 3 ml Physical Exam Vital Signs and Narrative: Vital Signs: Last Vital Signs Temp 98.4 F 10/20/24 15:31 Pulse 103 H 10/20/24 15:31 Resp 18 10/20/24 15:31 BP 132/85 10/20/24 15:31 Pulse Ox 94 10/20/24 15:31 O2 Del Method Room Air 10/20/24 15:31 BMI result Body Mass Index 37.7 Appearing in no acute distress head is normocephalic atraumatic eyes pupils are PERRLA sclera is anicteric mouth throat mucous membranes are intact and moist neck is supple no lymphadenopathy, no JVD noted lung sounds are clear to auscultation heart regular rate rhythm, clear S1, S2 positive bowel sounds, abdomen is soft, nontender neuro patient is alert x3, no focal deficits Results Labs 10/20/24 15:14 Labs: Laboratory Results - last 24 hr 10/20/24 15:14 Estim Creat Clear Calc 169.3 Estimated GFR > 60 Assessment and Plan (1) Pneumonia: Status: Acute Plan 38-year-old man admitted with acute hypoxic respiratory failure secondary to pneumonia Acute hypoxic respiratory failure secondary to pneumonia Due to inpatient admission we will start with vancomycin and Zosyn Oxygen supplementation to keep oxygen saturation greater than 91% Pulmonary consultation Severe constipation no impaction on KUB has tried multiple medications mag citrate today continue colace, senna, lactulose ambulate will consult general surgery for ? Disimpaction versus flex sig Mental health Continue home medications Care team consult once medically clear GERD Continue Pepcid Polysubstance abuse Addiction team consultation DVT prophylaxis with Lovenox Full code Quality Stroke Does the patient have a stroke diagnosis?: No VTE Prior VTE?: No VTE Risk Level:: Medical - moderate - high VTE Device Contraindication: Treatment Not Indicated VTE Drug Contraindication: N/A - Med Ordered
[2024-10-20] MEDS: Piperacillin Sodium/Tazobactam 3.375 GM in 0.9 % Sodium Chloride 50 ML IV ×2 (18:23→23:52)
[2024-10-20 19:21] VITALS: BP 137/69; PULSE 90; RESP 20; TEMP 37; O2SAT 93
[2024-10-20] MEDS: busPIRone HCl 10 MG TABLET 30 MG PO (19:47)
[2024-10-20] MEDS: Gabapentin 400 MG CAPSULE 800 MG PO (19:47)
[2024-10-20] MEDS: Prazosin HCL 1 MG CAPSULE 4 MG PO (19:47)
[2024-10-20] MEDS: Amitriptyline HCl 25 MG TABLET PO (19:48)
[2024-10-20] MEDS: Docusate Sodium 100 MG CAPSULE PO (19:48)
[2024-10-20] MEDS: Famotidine 20 MG TABLET PO (19:48)
[2024-10-20] MEDS: Nicotine Polacrilex 2 MG GUM 4 MG BUCCAL (19:48)
[2024-10-20] MEDS: QUEtiapine Fumarate 200 MG TABLET PO (19:59)
[2024-10-21] MEDS: vancomycin HCL 1,000 MG in 0.9 % Sodium Chloride 250 ML 270 MG IV ×2 (00:32→08:02)
[2024-10-21 03:48] VITALS: BP 130/66; PULSE 85; RESP 18; TEMP 36.6; O2SAT 92
[2024-10-21] MEDS: Heparin Sodium,Porcine 5,000 UNIT/ML VIAL 5000 UNIT SUBCUT ×2 (05:08→15:58)
[2024-10-21] MEDS: Piperacillin Sodium/Tazobactam 3.375 GM in 0.9 % Sodium Chloride 50 ML IV ×4 (05:09→23:13)
[2024-10-21 06:42] LABS: Creatinine Clr Calc Pharmacy 166.9; Estimated Glomerular Filt Rate > 60
[2024-10-21 07:35] VITALS: BP 122/68; PULSE 83; RESP 18; TEMP 36.3; O2SAT 93
[2024-10-21] MEDS: Dextroamphetamine/Amphetamine XR 10 MG CAP.ER.24H 30 MG PO (08:02)
[2024-10-21] MEDS: 0.9 % Sodium Chloride Flush 3 ML SYRINGE IVFLUSH ×2 (08:02→15:58)
[2024-10-21] MEDS: Docusate Sodium 100 MG CAPSULE PO ×2 (08:03→20:00)
[2024-10-21] MEDS: Sennosides 8.6 MG TABLET 17.2 MG PO (08:03)
[2024-10-21] MEDS: busPIRone HCl 10 MG TABLET 30 MG PO ×3 (08:03→20:00)
[2024-10-21] MEDS: buPROPion HCl XL 150 MG TAB.ER.24H PO (08:03)
[2024-10-21] MEDS: Gabapentin 400 MG CAPSULE 800 MG PO ×3 (08:03→20:00)
[2024-10-21] MEDS: Famotidine 20 MG TABLET PO ×2 (08:03→20:00)
[2024-10-21] MEDS: polyethylene glycoL 3350 17 GM POWD.PACK PO ×2 (08:10→19:59)
[2024-10-21] MEDS: Lactulose 20 GM/30 ML SOLUTION 30 GM PO (08:10)
--- NOTE | 2024-10-21 09:52 | MHC.CM.PN ---
Addendum entered by Giselle Hurt 10/21/24 10:23: PCP is Raquel Gao. Original Note: Patient ransfered from Adult Psych r/t Spo2 low and PNA+. Patient reports intentional OD attempt. He states that he has recently [facility]. He has not been able to get himself set up with a program. He has been working with his PCP. Recovery Team has met with patient. CareTeam is planned to evaluate the pt for INPLOC. DP INPLOC vs AMINTA program. Patient will need assist with transport unless he admits to [facility] Psych unit
--- NOTE | 2024-10-21 10:19 | MHC.RECOVRN ---
Met with pt in 363 after receiving Addiction Medicine consult for current use. Pt initially presented to [facility] after intentional overdose, had been admitted to [facility] and transferred to M5. Pt has now been transferred to S3 for treatment of pneumonia and SOB. T/w met with pt on 10/12 on [facility]. Pt sitting in bed, awake, alert, easily engages in conversation. Pt frustrated with transition to S3, did not feel it was necessary. Pt reports his plan had been to dc on Friday, 10/25, to his PCP. PCP (Dr. Gao) is helping pt secure housing. Pt reports desire to return to and continue with plan. If pt were to dc from S3, unsure of where he would go or which OTP he would like to be connected to. Pt encouraged to think about this in the event he is discharged. Pt denies other questions or concerns at this time. Plan to follow up with pt after dispo is determined. Discussed with Daphney Mcgovern APRN.
--- NOTE | 2024-10-21 10:46 | HE.PHANOTE ---
RE: METHADONE DOSING Patient was transferred from M5 to S3. Patient was getting 175 mg from 10/14/24 to 10/20/24.
[2024-10-21] MEDS: methADONE HCl 20 MG/2 ML ORAL.CONC 175 MG PO (10:59)
[2024-10-21 11:48] VITALS: BP 159/84; PULSE 94; RESP 18; TEMP 36.2; O2SAT 93
[2024-10-21] MEDS: Milk of Magnesia 30 ML ORAL.SUSP PO (12:50)
--- NOTE | 2024-10-21 14:08 | P.PNIM_ITS ---
Subjective Subjective Date of Service: 10/21/24 Interval History: Feels better, denies fever, no chills, no shortness of breath, no bowel movement, tolerating diet no nausea, no vomiting. No acute events overnight Review of Systems All other system reviewed and are negative. Physical Exam 2 Vital Signs: Vital Signs: Last Vital Signs Temp 97.2 F 10/21/24 11:48 Pulse 94 10/21/24 11:48 Resp 18 10/21/24 11:48 BP 159/84 H 10/21/24 11:48 Pulse Ox 93 10/21/24 11:48 O2 Del Method Room Air 10/21/24 11:48 BMI result Body Mass Index 37.7 Const: Other: General resting comfortably in no acute distress. Neck no JVD. CVS regular rate rhythm, Respiratory lungs coarse breath sounds, no respiratory distress, no wheeze, no rhonchi. Gastrointestinal abdomen soft, non tender, bowel sounds audible, no guarding , no rigidity. Extremities no edema. Neuro non focal Skin no rash Objective Data Active Medications Acetaminophen (Acetaminophen 325 Mg Tablet) 650 mg PO Q6H PRN PRN Reason: Pain, Mild 1-3,fever,headache Amitriptyline HCl (Amitriptyline Hcl 25 Mg Tablet) 25 mg PO BEDTIME [facility] Last Admin: 10/20/24 19:48 Dose: 25 mg Documented By: BRIANNA Amphetamine/Dextroamphetamine (Dextroamphetamine/Amphetamine Xr 10 Mg Cap.Er.24h) 30 mg PO DAILY [facility] Last Admin: 10/21/24 08:02 Dose: 30 mg Documented By: TEMITOPE Amphetamine/Dextroamphetamine (Amphetamine Mixed Salts 10 Mg Tablet) 30 mg PO DAILY@1400 [facility] Bupropion HCl (Bupropion Hcl Xl 150 Mg Tab.Er.24h) 150 mg PO DAILY [facility] Last Admin: 10/21/24 08:03 Dose: 150 mg Documented By: TEMITOPE Buspirone HCl (Buspirone Hcl 10 Mg Tablet) 30 mg PO TID [facility] Last Admin: 10/21/24 08:03 Dose: 30 mg Documented By: TEMITOPE Calcium Carbonate (Calcium Carbonate 750 Mg Tab.Chew) 750 mg PO Q4H PRN PRN Reason: Heartburn Docusate Sodium (Docusate Sodium 100 Mg Capsule) 100 mg PO BID [facility] Last Admin: 10/21/24 08:03 Dose: 100 mg Documented By: TEMITOPE Famotidine (Famotidine 20 Mg Tablet) 20 mg PO BID [facility] Last Admin: 10/21/24 08:03 Dose: 20 mg Documented By: TEMITOPE Gabapentin (Gabapentin 400 Mg Capsule) 800 mg PO TID [facility] Last Admin: 10/21/24 08:03 Dose: 800 mg Documented By: TEMITOPE Heparin Sodium (Porcine) (Heparin Sodium,Porcine 5,000 Unit/Ml Vial) 5,000 unit SUBCUT Q12H [facility] Last Admin: 10/21/24 05:08 Dose: 5,000 unit Documented By: BRIANNA Vancomycin HCl 1,000 mg/ (Sodium Chloride) 270 mls @ 270 mls/hr IV Q8H [facility] Last Infusion: 10/21/24 09:05 Dose: Infused Documented By: TEMITOPE Piperacillin Sod/Tazobactam (Sod 3.375 gm/ Sodium Chloride) 50 mls @ 100 mls/hr IV Q6H [facility] Last Infusion: 10/21/24 11:34 Dose: Infused Documented By: TEMITOPE Lactulose (Lactulose 20 Gm/30 Ml Solution) 30 gm PO DAILY [facility] Last Admin: 10/21/24 08:10 Dose: 30 gm Documented By: TEMITOPE Magnesium Hydroxide (Milk Of Magnesia 30 Ml Oral.Susp) 30 ml PO DAILY PRN PRN Reason: Constipation,severe Last Admin: 10/21/24 12:50 Dose: 30 ml Documented By: TEMITOPE Melatonin (Melatonin 3 Mg Tablet) 6 mg PO BEDTIME PRN PRN Reason: Insomnia Methadone HCl (Methadone Hcl 20 Mg/2 Ml Oral.Conc) 175 mg PO DAILY@0800 [facility] Last Admin: 10/21/24 10:59 Dose: 175 mg Documented By: TEMITOPE Co-signed By: KRYSTINA Nicotine Polacrilex (Nicotine Polacrilex 2 Mg Gum) 2 mg BUCCAL Q2H PRN PRN Reason: Nicotine Cravings Nicotine Polacrilex (Nicotine Polacrilex 2 Mg Gum) 4 mg BUCCAL Q2H PRN PRN Reason: Nicotine Cravings Last Admin: 10/20/24 19:48 Dose: 4 mg Documented By: BRIANNA Ondansetron HCl (Ondansetron Hcl 4 Mg/2 Ml Vial) 4 mg IVPUSH Q8H PRN PRN Reason: Nausea and Vomiting Ondansetron HCl (Ondansetron Odt 4 Mg Tab.Rapdis) 4 mg TRANSLINGU Q6H PRN PRN Reason: Nausea And Vomiting Pharmacy Consult (Consult Rx Vancomycin Dosing) 1 each MISCELLANE DAILY PRN PRN Reason: Consult order Polyethylene Glycol (Polyethylene Glycol 3350 17 Gm Powd.Pack) 17 gm PO BID [facility] Last Admin: 10/21/24 08:10 Dose: 17 gm Documented By: TEMITOPE Prazosin HCl (Prazosin Hcl 1 Mg Capsule) 4 mg PO BEDTIME [facility]; Protocol Last Admin: 10/20/24 19:47 Dose: 4 mg Documented By: BRIANNA Quetiapine Fumarate (Quetiapine Fumarate 200 Mg Tablet) 200 mg PO BEDTIME [facility] Last Admin: 10/20/24 19:59 Dose: 200 mg Documented By: BRIANNA Senna (Sennosides 8.6 Mg Tablet) 17.2 mg PO DAILY [facility] Last Admin: 10/21/24 08:03 Dose: 17.2 mg Documented By: TEMITOPE Sodium Biphosphate/Sodium Phosphate (Sodium Phosphate,[place]-Dibasic 133 Ml Enema) 133 ml PA ONCE PRN PRN Reason: Constipation Sodium Chloride (0.9 % Sodium Chloride Flush 3 Ml Syringe) 3 ml IVFLUSH QSHIFT [facility] Last Admin: 10/21/24 08:02 Dose: 3 ml Documented By: TEMITOPE Zolpidem Tartrate (Zolpidem Tartrate 5 Mg Tablet) 10 mg PO BEDTIME PRN PRN Reason: Insomnia Labs 10/21/24 05:38 Labs: Laboratory Results - last 24 hr 10/20/24 10/21/24 15:14 05:38 Hold Purple Top SEE NOTE Estim Creat Clear Calc 169.3 166.9 Estimated GFR > 60 > 60 Assessment and Plan (1) Constipation: Status: Acute (2) Pneumonia: Status: Acute Plan 38-year-old man admitted with acute hypoxic respiratory failure secondary to pneumonia Acute hypoxic respiratory failure secondary to pneumonia CT chest showed reticulonodular and ill-defined opacities right right upper middle and lower lobe, relatively clear left lung, differential includes interstitial pneumonitis, edema, parenchymal infiltrates or combination on iv vancomycin and Zosyn started on 10/20, if remained hemodynamically stable will deescalate antibiotics Follow CBC, blood cultures not obtained Hypoxia resolved 93% on room air Severe constipation no impaction on KUB has tried multiple medications continue colace, senna, lactulose, add enema x1, if no result will add GoLYTELY ambulate general surgery consult pending Mental health Continue home medications Care team consult once medically clear GERD Continue Pepcid Polysubstance abuse Being followed by Addiction team , continue methadone DVT prophylaxis with Lovenox Full code Quality Stroke Does the patient have a stroke diagnosis?: No VTE Prior VTE?: No VTE Risk Level:: Medical - moderate - high VTE Device Contraindication: Treatment Not Indicated VTE Drug Contraindication: N/A - Med Ordered
[2024-10-21 14:23] LABS: Vancomycin Trough 11.7 mcg/mL (10.0-20.0)
--- NOTE | 2024-10-21 14:36 | HE.PHANOTE ---
RE: VANCO DOSING Trough came back as 11.7. Dose is increased to 1250 mg q8h, next trough is scheduled for 10/22/24 @1400.
[2024-10-21] MEDS: Amphetamine Mixed Salts 10 MG TABLET 30 MG PO (14:44)
[2024-10-21] MEDS: Nicotine Polacrilex 2 MG GUM 4 MG BUCCAL (14:46)
[2024-10-21 15:46] VITALS: BP 141/95; PULSE 95; RESP 20; TEMP 36.4; O2SAT 92
[2024-10-21] MEDS: vancomycin HCL 1,250 MG in 0.9 % Sodium Chloride 250 ML 166.67 MG IV ×2 (15:56→23:48)
[2024-10-21] MEDS: Nicotine Polacrilex 2 MG GUM BUCCAL (19:23)
[2024-10-21] MEDS: Albuterol Sulfate 90 MCG 8 GM INHALER 2 PUFF INHALE (19:27)
[2024-10-21] MEDS: Zolpidem Tartrate 5 MG TABLET 10 MG PO (19:59)
[2024-10-21 20:00] VITALS: BP 127/69; PULSE 99; RESP 16; TEMP 36.3; O2SAT 93
[2024-10-21] MEDS: QUEtiapine Fumarate 200 MG TABLET PO (20:00)
[2024-10-21] MEDS: Prazosin HCL 1 MG CAPSULE 4 MG PO (20:00)
[2024-10-21] MEDS: Amitriptyline HCl 25 MG TABLET PO (20:01)
[2024-10-21 23:21] VITALS: BP 122/86; PULSE 99; RESP 18; TEMP 36.2; O2SAT 93
[2024-10-22 04:00] VITALS: BP 113/66; PULSE 80; RESP 16; TEMP 36; O2SAT 94
[2024-10-22] MEDS: Piperacillin Sodium/Tazobactam 3.375 GM in 0.9 % Sodium Chloride 50 ML IV ×2 (04:20→11:03)
[2024-10-22] MEDS: Heparin Sodium,Porcine 5,000 UNIT/ML VIAL 5000 UNIT SUBCUT (04:20)
[2024-10-22] MEDS: Nicotine Polacrilex 2 MG GUM 4 MG BUCCAL ×2 (04:20→11:00)
[2024-10-22 06:39] LABS: Hematocrit 37.8 % (42.0-52.0); Mean Corpuscular HGB Conc 31.7 g/dl (31.0-36.0); Mean Corpuscular Volume 88.3 fL (80.0-98.0); Mean Platelet Volume 9.2 fL (9.4-12.4); Platelet Count 252 X10*3/uL (160-400); Red Blood Count 4.28 X10*6/uL (4.60-5.80); Red Cell Distribution Width 13.7 % (11.0-16.0); White Blood Count 6.6 X10*3/uL (4.8-10.8)
[2024-10-22 06:50] LABS: Creatinine Clr Calc Pharmacy 153.7; Estimated Glomerular Filt Rate > 60
[2024-10-22 07:23] VITALS: BP 131/79; PULSE 88; RESP 18; TEMP 36.4; O2SAT 92
[2024-10-22] MEDS: Lactulose 20 GM/30 ML SOLUTION 30 GM PO (08:37)
[2024-10-22] MEDS: Famotidine 20 MG TABLET PO (08:37)
[2024-10-22] MEDS: buPROPion HCl XL 150 MG TAB.ER.24H PO (08:37)
[2024-10-22] MEDS: Sennosides 8.6 MG TABLET 17.2 MG PO (08:37)
[2024-10-22] MEDS: Dextroamphetamine/Amphetamine XR 10 MG CAP.ER.24H 30 MG PO (08:37)
[2024-10-22] MEDS: Docusate Sodium 100 MG CAPSULE PO (08:38)
[2024-10-22] MEDS: Gabapentin 400 MG CAPSULE 800 MG PO ×2 (08:38→14:17)
[2024-10-22] MEDS: polyethylene glycoL 3350 17 GM POWD.PACK PO (08:38)
--- NOTE | 2024-10-22 08:39 | MHC.CARE ---
Pt meets the critera for IPLOC. Section 12a in chart. Provider in agreement.
[2024-10-22] MEDS: vancomycin HCL 1,250 MG in 0.9 % Sodium Chloride 250 ML 166.67 MG IV (08:42)
[2024-10-22] MEDS: 0.9 % Sodium Chloride Flush 3 ML SYRINGE IVFLUSH (08:42)
[2024-10-22] MEDS: methADONE HCl 20 MG/2 ML ORAL.CONC 175 MG PO (08:43)
[2024-10-22] MEDS: busPIRone HCl 10 MG TABLET 30 MG PO ×2 (08:58→14:17)
[2024-10-22 11:08] VITALS: BP 111/60; PULSE 95; RESP 18; TEMP 36.3; O2SAT 92
--- NOTE | 2024-10-22 11:43 | PM.DS ---
DS: Providers Provider Date of Service: 10/22/24 Date of admission: 10/20/24 14:19 Date of discharge: 10/22/24 Primary care physician: Blue Physician Consults: 10/20/24 17:09 Addiction Medicine Routine Consulting Provider: Addiction Covering Reason for consultation: current use 10/22/24 07:27 Inpt CARE Team Crisis Consult Routine Comment: Reason for consultation: medically cleared for psyche DS: Diagnosis Discharge Diagnosis (1) Constipation: Status: Acute (2) Pneumonia: Status: Acute DS: Summary Hospital Course Hospital Course: History of presenting illness: Date of Service: 10/20/24 Chief Complaint: Shortness of breaths 38-year-old man admitted to adult [facility] for [facility] health care status post overdose of IV heroin/fentanyl requiring Narcan. Today patient reported right rib pain and was noted to have oxygen saturation of 90%. Lung CT scan showed pneumonia and plan was to transfer patient from to medical floor for medical treatment. Patient was not noted to be hypoxic but oxygen saturation was 91% on room air. No fever but tachycardia noted. Mild leukocytosis. Patient will be transferred to medical floor for further treatment. Hospital course: 38-year-old man admitted with acute hypoxic respiratory failure secondary to pneumonia and severe constipation Acute hypoxic respiratory failure secondary to pneumonia ,CT chest showed reticulonodular and ill-defined opacities right right upper middle and lower lobe, relatively clear left lung, patient treated with broad-spectrum antibiotics iv vancomycin and Zosyn , during course of hospitalization patient remained hemodynamically stable, had no fevers, WBC normalized hypoxia resolved currently 93% on room air , therefore IV antibiotics discontinued patient placed on Augmentin and being discharged back to psychiatric facility. Severe constipation resolved was likely due to high dose of methadone, KUB showed no impaction, patient treated with colace, senna, lactulose, Senokot and enema x1, recommend to continue all stool softeners and give additional Senokot if noted to have no bowel movements in 48 hours. Mental health Continue all psych medications, and is being transferred back to psych facility. GERD Continue Pepcid Polysubstance abuse continue methadone. Time Attestation Discharge Coordination Time (in mins): 40 Quality: Safe Use of Opioids Does Pt have an Active Cancer Diagnosis on the Problem List?: No Quality: Stroke Does the patient have a stroke diagnosis?: No Physical Exam Vital Signs: Vital Signs: Last Vital Signs Temp 97.1 F 10/22/24 11:34 Pulse 65 10/22/24 11:34 Resp 16 10/22/24 11:34 BP 130/61 10/22/24 11:34 Pulse Ox 99 10/22/24 11:34 O2 Del Method Room Air 10/22/24 11:34 BMI result Body Mass Index 37.7 Const: Other: General resting comfortably in no acute distress. Neck no JVD. CVS regular rate rhythm, Respiratory lungs coarse breath sounds right lung, no respiratory distress, no wheeze, no rhonchi. Gastrointestinal abdomen soft, non tender, bowel sounds audible, no guarding , no rigidity. Extremities no edema. Neuro non focal Skin no rash DS: Data Data Completed and Pending Completed studies during hospitalization [Text1]: Procedures Detoxification Services for Substance Abuse Treatment (11/13/21) Drainage of Left Knee Joint, Percutaneous Approach (06/11/20) Drainage of Right Ankle Joint, Open Approach (07/10/22) Drainage of Right Ankle Joint, Percutaneous Approach (07/10/22) Excision of Right Ankle Joint, Open Approach (07/10/22) Insertion of Infusion Device into Superior Vena Cava, Percutaneous Approach (06/11/20) Irrigation of Joints using Irrigating Substance, Percutaneous Endoscopic Approach (06/11/20) Ultrasonography of Superior Vena Cava, Guidance (06/11/20) Labs on day of discharge: Laboratory Results - last 24 hr 10/21/24 10/22/24 13:54 06:15 WBC 6.6 RBC 4.28 L Hgb 12.0 L Hct 37.8 L MCV 88.3 MCH 28.0 MCHC 31.7 RDW 13.7 Plt Count 252 MPV 9.2 L Absolute Nucleated RBC 0.000 Nucleated RBC % (auto) 0.0 Creatinine 0.76 Estim Creat Clear Calc 153.7 Estimated GFR > 60 Vancomycin Trough 11.7 Discharge Plan Discharge Anticipated Discharge Date/Time: 10/22/24 11:34 Patient Disposition: Xfer Psychiatric Hosp Discharge Diagnosis: Acute hypoxic respiratory failure due to pneumonia Severe constipation Referrals: Physician,Unknown J [Primary Care Provider] - 1 Week Discharge Medications: New sennosides [Senna Lax] 8.6 mg Tablet 17.2 mg PO DAILY Qty: 60 0RF amoxicillin-pot clavulanate 875-125 mg Tablet 1 tab PO Q12H Qty: 10 0RF Continued acetaminophen 325 mg Tablet 650 mg PO Q6H PRN (Reason: Pain 1-10) Qty: 0 0RF nicotine (polacrilex) 2 mg Gum 4 mg buccal Q2H PRN (Reason: Nicotine Cravings) Qty: 0 0RF prazosin 1 mg Capsule 4 mg PO BEDTIME Qty: 0 0RF Protocol: Hold for SBP< HOLD for SBP < : 90 gabapentin 400 mg Capsule 800 mg PO TID Qty: 0 0RF quetiapine 200 mg Tablet 200 mg PO BEDTIME Qty: 0 0RF famotidine 20 mg Tablet 20 mg PO BID Qty: 0 0RF amitriptyline 25 mg Tablet 25 mg PO BEDTIME Qty: 0 0RF magnesium hydroxide [Milk of Magnesia] 400 mg/5 mL Suspension 30 ml PO DAILY PRN (Reason: Constipation,severe) Qty: 0 0RF buspirone 10 mg Tablet 30 mg PO TID Qty: 0 0RF dextroamphetamine-amphetamine 20 mg Tablet 30 mg PO 1400 Qty: 0 0RF Rx Instructions: Partial Fill upon patient request. docusate sodium 100 mg Capsule 200 mg PO BID Qty: 0 0RF dextroamphetamine-amphetamine [Adderall XR] 10 mg Capsule,Extended Release 24hr 30 mg PO DAILY Qty: 0 0RF Rx Instructions: Partial Fill upon patient request. zolpidem 5 mg Tablet 10 mg PO BEDTIME PRN (Reason: Insomnia) Qty: 0 0RF methadone [Methadose] 10 mg/mL Concentrate 175 mg PO DAILY@0800 Qty: 0 0RF Rx Instructions: Partial Fill upon patient request. albuterol sulfate [Ventolin HFA] 90 mcg/actuation Hfa Aerosol Inhaler 2 puff inhalation RQ4H PRN (Reason: Wheezing) Qty: 0 0RF bupropion HCl 150 mg Tablet Extended Release 24 Hr 150 mg PO DAILY Qty: 0 0RF MAG-AL 200-200 mg/5 mL Suspension 30 ml PO Q6H PRN (Reason: Heartburn/Nausea) Qty: 0 0RF lactulose 20 gram/30 mL Solution 30 g PO DAILY Qty: 0 0RF polyethylene glycol 3350 17 gram Powder In Packet 17 g PO BID Qty: 0 0RF triamcinolone acetonide 0.1 % Cream 1 appl topical BID Qty: 0 0RF Protocol: Apply to: Apply to: face ondansetron 4 mg Tablet,Disintegrating 4 mg translingual Q6H PRN (Reason: Nausea And Vomiting) Qty: 0 0RF Dermacerin Cream 1 appl topical BID Qty: 0 0RF Protocol: Apply to: Apply to: affected areas naloxone [Narcan] 4 mg/actuation spray,non-aerosol 4 mg intranasal Q2M PRN (Reason: opioid overdose) Qty: 2 0RF Rx Instructions: spray 1 dose into ONE nostril; alternate nostrils w each dose until help arrives Discharge Orders: Discharge Order (Routine); Ordered 10/22/24 Ordered By: Wilbert Fallon Diet: Advance to usual diet Activity on Discharge: As tolerated Stand Alone Forms: Patient Portal Discharge page Print Language: [place]ese Care Plan Goals: Take Augmentin 1 tablet twice daily for 5 more days Continue all stool softeners as before and take Senokot 1 tablet daily Drink plenty of fluids and take high-fiber diet to avoid constipation, take additional Senokot if noted to have no bowel movements in 48 hours Health Concerns: Take all medications as before Plan of Treatment: Outpatient follow-up with primary care physician and Psychiatry Assessment: As above
--- NOTE | 2024-10-22 11:58 | MHC.CM.PN ---
DP: PT HAS BEEN MEDICALLY CLEARED, TRANSFER TO I/P PSYCH UNIT
[2024-10-22] MEDS: Amphetamine Mixed Salts 10 MG TABLET 30 MG PO (12:58)
[2024-10-22] MEDS: Amoxicillin/Potassium Clav 875 MG TABLET PO (12:58)
[2024-10-22] MEDS: Sodium Phosphate,Mono-Dibasic 133 ML ENEMA PR (14:19)
[2024-10-22 14:25] LABS: Vancomycin Random 18.8 mcg/mL (15-20)
[2024-10-22 14:58] VITALS: BP 133/80; PULSE 96; RESP 18; TEMP 36.6; O2SAT 94
--- NOTE | 2024-10-22 15:14 | PC.NURSE ---
Pt. discharged to [facility], report received by receiving Nurse. Smooth discharge, no issues.
== END 2024-10-22 15:12 | DRG 139 ==
PROVIDERS: Nurse Practitioner Acute Care; Admitting Provider Student in an Organized Health Care Education/Training Program; PCP Family Medicine; Visit Provider Hospitalist
DX: J18.9 Pneumonia, unspecified organism (principal); F11.20 Opioid dependence, uncomplicated; F19.10 Other psychoactive substance abuse, uncomplicated; K59.03 Drug induced constipation; T40.3X5A Adverse effect of methadone, initial encounter; K21.9 Gastro-esophageal reflux disease without esophagitis; Z59.01 Sheltered homelessness; Z87.891 Personal history of nicotine dependence; Z79.899 Other long term (current) drug therapy
CPT/HCPCS: 36415; 80202; 82565; 85027; J1644; J2543; J3370; J3371; S9485

== ENCOUNTER → 2024-10-20 14:19 | Outpatient (BNV) | payer MEDICAID, SELFPAY | PROVIDERS: Admitting Provider Student in an Organized Health Care Education/Training Program; Visit Provider Hospitalist | DX: K59.00 Constipation, unspecified (principal); J18.9 Pneumonia, unspecified organism | CPT/HCPCS: 99223; 99233; 99239 ==

== ENCOUNTER 2024-10-22 12:50 | Inpatient (IN) | payer OTHER, SELFPAY ==
--- OUTSIDE RECORDS SUMMARY | 2024-10-22 15:25 | XMS_ITS | Encounter Summary ---
Author Organization [employer] Address [address] [facility] 7t [place] [address] Care Team Providers Care Electronics Mechanic Apprentice Name Role Phone Raquel Gao MD Primary Care Provider [phone] Encounter Details Date Type Department Care Team (Late st Contact Info) Description 08/13/2023 Orders Only [place] [facility] [address] [place] [address] Raquel Gao MD [address] [place] [address] Social History Tobacco Use Types Packs/Day Years [...] on filedocumented in this encounter Care Teams Electronics Mechanic Apprentice Relationship Specialty Start Date End Date Raquel Gao MD [address] [place] [address] PCP - General Family Medicine 09/30/22 documented as of this encounter
--- OUTSIDE RECORDS SUMMARY | 2024-10-22 15:25 | XMS_ITS | Encounter Summary ---
Author Organization [employer] Address [address] [facility] 7t [place] [address] Care Team Providers Care Harm Reduction Worker Name Role Phone Raquel Gao MD Primary Care Provider Reason for Visit * Reason Onset Date Comments Med Refill 10/06/2024 Encounter Details Date Type Department Care Team (Late st Contact Info) Description 10/06/2024 Telephone [facility] MEDICAL [address] [place] [address] Raquel Gao MD [address] [place] [address] Med Refill Social History Tobacco Use Types [...] send to the following pharmacy Friday [id number] [place], [place] - [address] [place] [address] [facility] [[id number]] documented in this encounter Plan of Treatment Not on file documented as of this encounter Visit Diagnoses Not on filedocumented in this encounter Care Teams Harm Reduction Worker Relationship Specialty Start Date End Date Raquel Gao MD [address] [place] [address] PCP - General Family Medicine 09/30/22 documented as of this encounter
--- OUTSIDE RECORDS SUMMARY | 2024-10-22 15:25 | XMS_ITS | Encounter Summary ---
Author Organization [employer] Address [address] [facility] 7t [place] [address] Care Team Providers Care Audio Engineer Name Role Phone Raquel Gao MD Primary Care Provider [phone] Reason for Visit * Reason Onset Date Comments assistance after release 09/09/2024 Encounter Details Date Type Department Care Team (Late st Contact Info) Description 09/09/2024 Telephone [facility] MEDICAL [address] [place] [address] Raquel Gao MD [address] [place] [address] assistance after release Social History Tobacco Use [...] just until he can get into a assisted house. Patient is currently at the [facility] in [place] with a projected release date of next month. Patient does not want to go back to [place] or [place] as he wants to stay clean. Please assist Phone number listed for patient to be called back at is to the [facility] that is in his unit [phone] ext [phone]. documented in this encounter Plan of Treatment Not on file documented as of this encounter Visit Diagnoses Not on filedocumented in this encounter Care Teams Audio Engineer Relationship Specialty Start Date End Date Raquel Gao MD [address] [place] [address] PCP - General Family Medicine 09/30/22 documented as of this encounter
--- OUTSIDE RECORDS SUMMARY | 2024-10-22 15:25 | XMS_ITS | Encounter Summary ---
Author Organization [employer] Address [address] [facility] 7t [place] [address] Care Team Providers Care Foreign Exchange Services Manager Name Role Phone Raquel Gao MD Primary Care Provider [phone] Reason for Visit * Reason Onset Date Comments Care Coordination 10/12/2024 Encounter Details Date Type Department Care Team (Late st Contact Info) Description 10/12/2024 Telephone [facility] MEDICAL [address] [place] [address] Raquel Gao MD [address] [place] [address] Care Coordination Social History Tobacco Use Types [...] spoke to clinician. Pt is inpatient at [facility] for medical and will be transferring up to [facility] when cleared. Discussed f/u plan. * Telephone Encounter - Ariella Mayers - 10/12/2024 9:12 AM EST Clinician from hospital called, would like to f/u with to discuss substance use after discharge [phone] Option 2 documented in this encounter Plan of Treatment Not on file documented as of this encounter Visit Diagnoses Not on filedocumented in this encounter Care Teams Foreign Exchange Services Manager Relationship Specialty Start Date End Date Raquel Gao MD [address] [place] [address] PCP - General Family Medicine 09/30/22 documented as of this encounter
--- OUTSIDE RECORDS SUMMARY | 2024-10-22 15:25 | XMS_ITS | Clinical Summary ---
Author Organization [employer] Address [address] [facility] 7t [place] [address] Care Team Providers Care Heavy Equipment Service Technician Name Role Phone Raquel Gao MD Primary Care Provider [phone] Allergies Active Allergy Reactions Criticality Noted Date [...] Type Department Care Team Description 10/20/2024 Telephone [facility] MEDICAL [address] [place] [address] Raquel Gao MD Care Coordination; medical update 10/15/2024 [facility] [address] [place] [address] Raquel Gao MD would like to speak with you 10/12/2024 [facility] MEDICAL [address] [place] [address] Raquel Gao MD Care Coordination 10/11/2024 [facility] Health Information Management [address] [place] [address] Raquel Gao MD 10/06/2024 [facility] [address] [place] [address] Raquel Gao MD Med Refill 10/05/2024 [facility] MEDICAL [address] [place] [address] Raquel Gao MD 09/09/2024 [facility] [address] [place] [address] Raquel Gao MD assistance after release from [...] Most Recently Relevant to Health Maintenance Insurance [address] [place], [place] [address] Care Teams Heavy Equipment Service Technician Relationship Specialty Start Date End Date Raquel Gao MD [address] [place] [id number] PCP - General Family Medicine 09/30/22
--- OUTSIDE RECORDS SUMMARY | 2024-10-22 15:25 | XMS_ITS | Encounter Summary ---
Author Organization [employer] Address [address] [place] [address] [address] [place] [address] Care Team Providers Care Street Car Inspector Name Role Phone Raquel Gao MD Primary Care Provider [phone] Reason for Visit * Reason Onset Date Comments would like to speak with you 10/15/2024 Encounter Details Date Type Department Care Team (Late st Contact Info) Description 10/15/[address] [facility] [place] [facility] [address] [place] [address] Raquel Gao MD [address] [place] [address] would like to speak with you Social [...] free moment. Please use the following number [phone] documented in this encounter Plan of Treatment Not on file documented as of this encounter Visit Diagnoses Not on filedocumented in this encounter Care Teams Street Car Inspector Relationship Specialty Start Date End Date Raquel Gao MD [address] [place] [address] PCP - General Family Medicine 09/30/22 documented as of this encounter
--- OUTSIDE RECORDS SUMMARY | 2024-10-22 15:25 | XMS_ITS | Encounter Summary ---
Author Organization [employer] Address [address] [place] [address] 7[address] [place] [address] Care Team Providers Care Director Dance Name Role Phone Raquel Gao MD Primary Care Provider [phone] Encounter Details Date Type Department Care Team (Late st Contact Info) Description 10/11/2024 Telephone [place] [facility] [address] [place] [address] Raquel Gao MD [address] [place] [address] Social History Tobacco Use Types Packs/Day Years [...] date: Pt may have been admitted Hospital: [facility] Records on file: partial Discharge diagnosis: psych symptoms, SI, substance abuse Patient described events as: upset and hopeless, injected 10 bags of heroin, overdose Follow-up scheduled: attempted to call pt. The number you dialed could not be reached . * Telephone Encounter - Pamela Andrews LPN - 10/11/2024 11:42 AM EST Images from the original note were not included. Pamela Torres to [place] Triage [facility] 10/11/24 11:37 AM Pt was seen at [facility] 10/09, note attached. documented in this encounter Plan of Treatment Not on file documented as of this encounter Visit Diagnoses Not on filedocumented in this encounter Care Teams Director Dance Relationship Specialty Start Date End Date Raquel Gao MD [address] [place] [address] PCP - General Family Medicine 09/30/22 documented as of this encounter
--- OUTSIDE RECORDS SUMMARY | 2024-10-22 15:25 | XMS_ITS | Encounter Summary ---
Author Organization [employer] Address [address] [place] [address] [address] [place] [address] Care Team Providers Care Organ Tuner Name Role Phone Raquel Gao MD Primary Care Provider [phone] Reason for Visit * Reason Comments Med Refill Encounter Details Date Type Department Care Team (Late st Contact Info) Description 07/22/2023 Refill [facility] MEDICAL [address] [place] [address] Raquel Gao MD [address] [place] [address] Post-traumatic stress disorder, chronic Social History Tobacco [...] chronic documented in this encounter Care Teams Organ Tuner Relationship Specialty Start Date End Date Raquel Gao MD [address] [place] [address] PCP - General Family Medicine 09/30/22 documented as of this encounter
--- OUTSIDE RECORDS SUMMARY | 2024-10-22 15:25 | XMS_ITS | Data Portability ---
Author Organization [facility], , [facility] Address [address] [place] [address] Assessment No assessment recorded. Plan of Treatment Reminders Order Date Submit Date Provider Last Modified By Organization Details Last Modified Time Details Appointments None recorded. Lab hepatitis C, RNA quant w/rfl genotype 2012 013 [facility], [address] [place] [address], [address], 3 04:12:19 liver function test 2012 013 [facility], [address] [place] [address], [address], 3 04:12:19 HIV 1 HIV 2 Ab (EIA w/ reflex) 2012 013 [facility], [address] [place] [address], [address], 3 04:12:19 Referral urgent care/ER referral - pt with history of IV heroin use. interested in suboxone treatment.- -per pt he is changing to [facility] [place] 2012 013 contreras Vicente ([facility] [address] [place], [address], 3 07:32:47 ophthalmolo gist referral - pt [...] not yet have records. 2012 Brannon chairez [facility], [address] [place], [address], 3 07:44:39 gastroenter ologist referral - please see attached labs. pt believes he acquired hepatitis c from a shared needle with father. has never been treated. lfts within normal limits. referral to GI today. pt is tolerating suboxone. clean x 3 days. 2012 0618/[address] [facility], [address] [place], [address], 3 04:15:25 Procedures None recorded. Surgeries None recorded. Imaging None recorded. Medication Orders None recorded. Patient TargetsNo targets recorded. Patient InstructionsNo instructions recorded. Reason for Referral pt with history of IV heroin use. interested in suboxone treatment.--per pt he is changing to [facility] insurance Referring Physician: Griselda Gomez [facility], Encounter Date: 02/26/2013 please see attached labs. pt believes he acquired hepatitis c from a shared needle with father. has never been treated. lfts within normal limits. referral to GI today. pt is tolerating suboxone. clean x 3 days. Referring Physician: Griselda Gomez [facility], Encounter Date: 03/05/2013 pt new [...] yet have records. Referring Physician: Griselda Gomez [facility], Encounter Date: 03/05/2013 Results Created Date Observation Date Name Description Value Unit Range Abnormal Flag Note LastModifiedBy Organization Detail LastModifiedTime 02/27/20 13 02/26/2013 liver funct ion test total protein 7.8 g/dL 6.4-8. 2 Not Available [facility] [address] [facility], [place], [address], 02/26/2013 16:21:24 02/27/20 13 02/26/2013 liver funct ion test albumin 4.0 g/dL 3.4-5. 0 Not Available [address], [address], 02/26/2013 16:21:24 02/27/20 13 02/26/2013 liver funct ion test globulin 3.8 g/dL Not Available [address], [address], 02/26/2013 16:21:24 02/27/20 13 02/26/2013 liver funct ion test A/G 1.1 ratio 0.8-2. 0 Not Available [address], [address], 02/26/2013 16:21:24 02/27/20 13 02/26/2013 liver funct ion test total bilirubin 0.40 mg/dL 0.00-1 .00 Not Available [address], [address], 02/26/2013 16:21:24 02/27/20 13 02/26/2013 liver funct ion test direct bilirubin 0.10 mg/dL 0.00-0 .30 Not Available [address], [address], 02/26/2013 16:21:24 02/27/20 13 02/26/2013 liver funct ion test AST 26 U/L 15-37 Not Available [address], [address], 02/26/2013 16:21:24 02/27/20 13 02/26/2013 liver funct ion test ALT 57 U/L 30-65 Not Available [address], [address], 02/26/2013 16:21:24 02/27/20 13 02/26/2013 liver funct ion test alk. phos. 117 U/L 50-136 Not Available [address], [address], 02/26/2013 16:21:24 02/27/20 13 03/01/2013 HIV Ab [...] recom zackery d. Not Available [facility] [address], [address], 03/01/2013 12:41:49 02/27/20 13 03/02/2013 hepat itis C, RNA quant w/rfl genot ype HCV RNA, quantitative real time PCR [id number] IU/mL <43 high Not Available [facility] [address], [address], 03/02/2013 17:07:28 02/27/20 13 03/02/2013 hepat itis [...] taqma n(R) HCV test kit (roch e [employer] ular [employer] for more infor omar n on this test, go to http: //yury pringle stdia gnost ics.c om/fa q/HCV -RNA- PCR the perfo rmanc e nereida cteri stics of this assay have been deter mined by [employer] ostic s lyudmila bibi insti ivane. perfo rmanc e nereida cteri stics refer to the lacy tical perfo rmanc e of the test. Not Available [facility] [address], [place], [address], 03/02/2013 17:07:28 02/27/20 13 03/02/2013 hepat itis C genot ype HCV genotype, lipa 1a these resul ts were revie wed by getachew nguyen , pH.D. , direc tor of [employer] ulde [employer] ostic s. the accut ype(R ) il28b [...] whole blood sampl e for test code 04209 . the metho d used in this test IS RT-PC R and rever se hybri dizat ion (line probe ) of the 5' utr and core regio n of the HCV genom e. this test was devel oped and its perfo rmanc e nereida cteri stics have been deter mined by [employer] ostic s lyudmila bibi insti lori, tiana [...] ics.c om/fa q/hcv genot yping Not Available [facility] [address], [place], [address], 03/02/2013 17:07:30 03/12/20 13 03/12/2013 drug scree n, urine canna., urine scr Positi ve abnormal cutof f: 50 NG/mL Not Available [facility] [address] [place] [address], [address], 03/12/2013 13:31:36 03/12/20 13 03/12/2013 drug scree n, urine cocaine,urin escreen Positi ve abnormal cutof f: 300 NG/mL Not Available [facility] [address] [place] [address], [address], 03/12/2013 13:31:36 03/12/20 13 03/12/2013 drug scree n, urine kimberli,urine None Detect ed cutof f: 200 NG/mL Not Available [facility] [address] [place] [address], [address], 03/12/2013 13:31:36 03/12/20 13 03/12/2013 drug scree n, urine M-amphetamin es, urine screen None Detect ed cutof f: 1000 NG/mL Not Available [facility] [address] [place] [address], [address], 03/12/2013 13:31:36 03/12/20 13 03/12/2013 drug scree n, urine methadone, urine screen None Detect ed cutof f: 300 NG/mL Not Available [facility] [address] [place] [address], [address], 03/12/2013 13:31:36 03/12/20 13 03/12/2013 drug scree n, urine opiates, urine screen Positi ve abnormal cutof f: 300 NG/mL Not Available [facility] [address] [place], [address], 03/12/2013 13:31:36 03/12/20 13 03/12/2013 drug scree n, urine phencyclidin e, urine SC None Detect ed cutof f: 25 NG/mL Not Available [facility] [address] [place] [address], [address], 03/12/2013 13:31:36 03/12/20 13 03/12/2013 drug scree n, urine barbiturates , urine None Detect ed cutof f: 200 NG/mL inter preta tion for toxic ology panel : thes e resul ts are uncon firme d and shoul d BE used for medic al treat ment purpo ses only. Not Available [facility] [address] [place], [address], 03/12/2013 13:31:36 03/12/20 13 03/12/2013 drug scree n, urine oxycodone, urine qualitative None Detect ed cutof f: 100 NG/mL Not Available [facility] [address] [place] [address], [address], 03/12/2013 13:31:36 03/22/20 13 03/22/2013 CBC w/dif f WBC 4.5 K/uL 3.4-11 .2 Not Available [facility] [address] [place] [address], [address], 04/22/2013 10:24:57 03/22/20 13 03/22/2013 CBC w/dif f RBC 4.93 M/uL 4.50-5 .50 Not Available [facility] [address] [place], [address], 04/22/2013 10:24:57 03/22/20 13 03/22/2013 CBC w/dif f hemoglobin 13.7 g/dL 13.0-1 7.0 Not Available [facility] [address] [place] [address], [address], 04/22/2013 10:24:57 03/22/20 13 03/22/2013 CBC w/dif f hematocrit 41.7 % 40.0-5 1.0 Not Available [facility] [address] [place] [address], [address], 04/22/2013 10:24:57 03/22/20 13 03/22/2013 CBC w/dif f MCV 84.6 fL 79.0-9 8.0 Not Available [facility] [address] [place] [address], [address], 04/22/2013 10:24:57 03/22/20 13 03/22/2013 CBC w/dif f MCH 27.8 pg 27.0-3 4.8 Not Available [facility] [address] [place] [address], [address], 04/22/2013 10:24:57 03/22/20 13 03/22/2013 CBC w/dif f MCHC 32.9 g/dL 31.5-3 6.0 Not Available [facility] [address] [place] [address], [address], 04/22/2013 10:24:57 03/22/20 13 03/22/2013 CBC w/dif f RDW 14.9 % 10.8-1 4.6 high Not Available [facility] [address] [place] [address], [address], 04/22/2013 10:24:57 03/22/20 13 03/22/2013 CBC w/dif f MPV 9.1 fL 7.2-10 .5 Not Available [facility] [address] [place] [address], [address], 04/22/2013 10:24:57 03/22/20 13 03/22/2013 CBC w/dif f platelet count 334 K/uL 130-40 0 Not Available [facility] [address] [place] [address], [address], 04/22/2013 10:24:57 03/22/20 13 03/22/2013 CBC w/dif f neutrophils 57.8 % 45.3-7 7.7 Not Available [facility] [address] [place] [address], [address], 04/22/2013 10:24:57 03/22/20 13 03/22/2013 CBC w/dif f lymphocytes 31.2 % 12.3-3 9.7 Not Available [facility] [address] [place] [address], [address], 04/22/2013 10:24:57 03/22/20 13 03/22/2013 CBC w/dif f monocytes 9.2 % 4.1-12 .8 Not Available [facility] [address] [place] [address], [address], 04/22/2013 10:24:57 03/22/20 13 03/22/2013 CBC w/dif f eosinophils 0.90 % 0.00-7 .20 Not Available [facility] [address] [place] [address], [address], 04/22/2013 10:24:57 03/22/20 13 03/22/2013 CBC w/dif f basophils 0.70 % 0.00-2 .80 Not Available [facility] [address] [place] [address], [address], 04/22/2013 10:24:57 03/22/20 13 03/22/2013 CBC w/dif f absolute neutrophil 2.6 K/uL 1.4-7. 7 Not Available [facility] [address] [place] [address], [address], 04/22/2013 10:24:57 03/22/20 13 03/22/2013 CBC w/dif f absolute lymphocyte 1.4 K/uL 0.6-3. 2 Not Available [facility] [address] [place] [address], [address], 04/22/2013 10:24:57 03/22/20 13 03/22/2013 CBC w/dif f absolute monocytes 0.4 K/uL 0.1-0. 6 Not Available [facility] [address] [place] [address], [address], 04/22/2013 10:24:57 03/22/20 13 03/22/2013 CBC w/dif f absolute eosinophil 0.04 K/uL 0.01-0 .50 Not Available [facility] [address] [place] [address], [address], 04/22/2013 10:24:57 03/22/20 13 03/22/2013 CBC w/dif f absolute basophils 0.03 K/uL Not Available [facility] [address] [place] [address], [address], 04/22/2013 10:24:57 03/22/20 13 03/22/2013 CBC w/dif f immature granulocyte 0.20 % 0.00-0 .50 Not Available [facility] [address] [place] [address], [address], 04/22/2013 10:24:57 03/22/20 13 03/22/2013 CBC w/dif f absolute immature granulocyte 0.01 K/uL 0.00-0 .03 Not Available [facility] [address] [place] [address], [address], 04/22/2013 10:24:57 03/22/20 13 03/22/2013 compr ehens elma metab olic panel glucose 118 mg/dL 70-99 high Not Available [facility] [address] [place], [address], 04/22/2013 10:24:57 03/22/20 13 03/22/2013 compr ehens elma metab olic panel BUN 9 mg/dL 6-19 Not Available [facility] [address] [place], [address], 04/22/2013 10:24:57 03/22/20 13 03/22/2013 compr ehens elma metab olic panel creatinine 0.8 mg/dL 0.5-1. 5 Not Available [facility] [address] [place] [address], [address], 04/22/2013 10:24:57 03/22/20 13 03/22/2013 compr ehens elma metab olic panel GFR >60 Not Available [facility] [address] [place], [address], 04/22/2013 10:24:57 03/22/20 13 03/22/2013 compr ehens elma metab olic panel sodium 138 mEq/L 133-14 5 Not Available [facility] [address] [place], [address], 04/22/2013 10:24:57 03/22/20 13 03/22/2013 compr ehens elma metab olic panel potassium 3.9 mEq/L 3.3-5. 1 Not Available [facility] [address] [place], [address], 04/22/2013 10:24:57 03/22/20 13 03/22/2013 compr ehens elma metab olic panel chloride 98 mEq/L 96-108 Not Available [facility] [address] [place] [address], [address], 04/22/2013 10:24:57 03/22/20 13 03/22/2013 compr ehens elma metab olic panel CO2 28 mEq/L 21-35 Not Available [facility] [address] [place], [address], 04/22/2013 10:24:57 03/22/20 13 03/22/2013 compr ehens elma metab olic panel calcium 9.5 mg/dL 8.4-10 .3 Not Available [facility] [address] [place], [address], 04/22/2013 10:24:57 03/22/20 13 03/22/2013 compr ehens elma metab olic panel total bilirubin 0.2 mg/dL 0.0-1. 5 Not Available [facility] [address] [place], [address], 04/22/2013 10:24:57 03/22/20 13 03/22/2013 compr ehens elma metab olic panel alkaline phosphatase 84 U/L 39-117 Not Available [facility] [address] [place] [address], [address], 04/22/2013 10:24:57 03/22/20 13 03/22/2013 compr ehens elma metab olic panel AST (SGOT) 38 U/L 0-37 high Not Available [facility] [address] [place], [address], 04/22/2013 10:24:57 03/22/20 13 03/22/2013 compr ehens elma metab olic panel ALT (SGPT) 57 U/L 0-40 high Not Available [facility]) [address] [place] [address], [address], 04/22/2013 10:24:57 03/22/20 13 03/22/2013 compr ehens elma metab olic panel total protein 7.5 g/dL 6.5-8. 0 Not Available [facility] [address] [place], [address], 04/22/2013 10:24:57 03/22/20 13 03/22/2013 compr ehens elma metab olic panel albumin 4.4 g/dL 3.9-4. 8 Not Available [facility] [address] [place], [address], 04/22/2013 10:24:57 03/22/20 13 03/22/2013 compr ehens elma metab olic panel globulin 3.1 gm/dL 1.0-4. 8 Not Available [facility]) [address] [place] [address], [address], 04/22/2013 10:24:57 03/22/20 13 03/22/2013 compr ehens elma metab olic panel A/G ratio 1.4 gm/dL 1.0-4. 8 Not Available [facility]) [address] [place] [address], [address], 04/22/2013 10:24:57 03/22/20 13 03/22/2013 compr ehens elma metab olic panel anion gap 16 mEq/L 10-20 Not Available [facility] [address] [place] [address], [address], 04/22/2013 10:24:57 03/22/20 13 03/22/2013 justo tin ferritin 39 NG/mL 30-400 Not Available [facility] [address] [place], [address], 04/22/2013 10:24:58 03/22/20 13 03/22/2013 iron defic iency profi le iron 49 mcg/d L 45-160 Not Available [facility] [address] [place] [address], [address], 04/22/2013 10:25:00 03/22/20 13 03/22/2013 iron defic iency profi le UIBC 362 ug/dL 110-37 0 Not Available [facility] [address] [place] [address], [address], 04/22/2013 10:25:00 03/22/20 13 03/22/2013 iron defic iency profi le total iron binding capacity 411 mL/dL 228-42 8 Not Available [facility] [address] [place] [address], [address], 04/22/2013 10:25:00 03/22/20 13 03/22/2013 iron defic iency profi le transferrin saturation 12 % 20-55 low Not Available [facility] [address] [place] [address], [address], 04/22/2013 10:25:00 03/22/20 13 03/23/2013 hepat itis B surfa ce Ag hep B surface Ag Negati ve negati ve Not Available [facility] [address] [place] [address], [address], 04/22/2013 10:25:00 03/22/20 13 03/23/2013 hepat itis A Ab w/ igm refle x hepatitis A total Positi ve negati ve Not Available [facility] [address] [place] [address], [address], 04/22/2013 10:24:59 03/22/20 13 03/23/2013 hepat itis B surfa ce Ab hep B surface Ab Positi ve unvac cinat ed: negat elma vacci nated : posit elma Not Available [facility] [address] [place] [address], [address], 04/22/2013 10:24:59 03/22/20 13 03/23/2013 hepat itis A Ab (igm) hepatitis A IgM Negati ve negati ve Not Available [facility] [address] [place] [address], 223[address], 04/22/2013 10:25:01 03/22/20 13 03/24/2013 MUNA MUNA screen Positi ve negati ve abnormal an MUNA titer has been refle xed. the resul steven yao Not Available [facility] [address] [place] [address], [address], 04/22/2013 10:24:56 03/22/20 13 03/24/2013 MUNA titer homogenous pattern Negati ve <1:160 Not Available [facility] [address] [place] [address], 968[address], 04/22/2013 10:25:02 03/22/20 13 03/24/2013 MUNA titer peripheral pattern Negati ve <1:160 Not Available [facility] [address] [place] [address], 82343, 04/22/2013 10:25:02 03/22/20 13 03/24/2013 MUNA titer speckled pattern 1:80 <1:160 Not Available [facility] [address] [place] [address], 236[address], 04/22/2013 10:25:02 03/22/20 13 03/24/2013 MUNA titer nucleolar pattern Negati ve <1:160 Not Available [facility] [address] [place] [address], 51941, 04/22/2013 10:25:02 03/22/20 13 03/24/2013 MUNA titer centromere pattern Negati ve <1:160 Not Available [facility] [address] [place] [address], [address], 04/22/2013 10:25:02 03/22/20 13 03/26/2013 luis kelle oseguera se panel tiss. trans IgA <1.2 U/mL refer ence range : <4.0 (nega tive) test perfo rmed by: [facility] [place] [address], [place] [address] [facility]: ruth suh, pH.D. Not Available [facility] [address] [place] [address], [address], 06/14/2013 14:49:56 03/22/20 13 03/26/2013 luis c disea se panel gliadin IgG, S <10.0 U refer ence range : <20.0 (nega tive) test perfo rmed by: [facility] [place] [facility] [address] [place] [address] [facility] tor: kar oliveros III, M.D. Not Available [facility]) [address] [place] [address], 99161, 06/14/2013 14:49:56 03/22/20 13 03/26/2013 luis c disea se panel gliadin IgA, S 10.9 U refer ence range : <20.0 (nega tive) Not Available [facility] [address] [place] [address], 74681, 06/14/2013 14:49:56 03/22/20 13 03/26/2013 cerul oplas min ceruloplasmi n, S 27.8 mg/dL refer ence range : 15.0 - 30.0 test perfo rmed by: [facility] [place] [address], [place] [address] [facility] tor: ruth suh, pH.D. Not Available [facility]) [address] [place] [address], 333[address], 06/14/2013 14:49:57 03/22/20 13 03/26/2013 hepat itis C, RNA quant itati ve by real time PCR HCV RNA detect/quant , S 103605 0 IU/mL refer ence range : undet ected resul t in log IU/mL IS 6.58. the quant ifica tion range of this assay IS 43 IU/mL to 69,00 0,000 IU/mL (1.63 log IU/mL to 7.84 log IU/mL ). testi ng was perfo rmed by the laxmi ampli prep/ laxmi taqma n HCV test (susana carbajal [employer] . test perfo rmed by: [facility] [place] [address], [place] [address] labor atory direc tor: ruth suh, pH.D. Not Available [facility] [address] [place] [address], 75054, 06/14/2013 14:49:57 03/22/20 13 03/26/2013 hepat itis C genot ype hepatitis C genotyping 1, No Subtyp e refer ence range : undet ected A speci fic subty pe (i.e. 1a, 1b) could not BE assig julio. testi ng was done using the abbot t HCV genot ype II assay . for resea [facility] use only. test perfo rmed by: [facility] [place] [address] [facility] [address] , [place] [address] [facility] atory dire tor: kar oliveros III, M.D. Not Available [facility] [address] [place] [address], 26[address], 06/14/2013 14:49:58 04/18/20 16 04/18/2016 CBC w/ auto diff WBC 6.6 K/uL 3.4-11 .2 Not Available [address], [address], 04/18/2016 01:43:28 04/18/20 16 04/18/2016 CBC w/ auto diff RBC 4.99 M/uL 4.50-5 .50 Not Available [address], [address], 04/18/2016 01:43:28 04/18/20 16 04/18/2016 CBC w/ auto diff hemoglobin 14.7 g/dL 13.0-1 7.0 Not Available [address], [address], 04/18/2016 01:43:28 04/18/20 16 04/18/2016 CBC w/ auto diff hematocrit 42.0 % 40.0-5 1.0 Not Available [address], [address], 04/18/2016 01:43:28 04/18/20 16 04/18/2016 CBC w/ auto diff MCV 84.2 fL 79.0-9 8.0 Not Available [address], [address], 04/18/2016 01:43:28 04/18/20 16 04/18/2016 CBC w/ auto diff MCH 29.5 pg 27.0-3 4.8 Not Available [address], [address], 04/18/2016 01:43:28 04/18/20 16 04/18/2016 CBC w/ auto diff MCHC 35.0 g/dL 31.5-3 6.0 Not Available [address], [address], 04/18/2016 01:43:28 04/18/20 16 04/18/2016 CBC w/ auto diff RDW 13.0 % 10.8-1 4.6 Not Available [address], 00259, 04/18/2016 01:43:28 04/18/20 16 04/18/2016 CBC w/ auto diff MPV 9.4 fL 9.4-12 .4 Not Available [address], [address], 04/18/2016 01:43:28 04/18/20 16 04/18/2016 CBC w/ auto diff platelet count 255 K/uL 130-40 0 Not Available [address], [address]160, 04/18/2016 01:43:28 04/18/20 16 04/18/2016 CBC w/ auto diff neutrophils 61.6 % 45.3-7 7.7 Not Available [address], [address]39[address], 04/18/2016 01:43:28 04/18/20 16 04/18/2016 CBC w/ auto diff lymphocytes 26.0 % 12.3-3 9.7 Not Available [address], 00156, 04/18/2016 01:43:28 04/18/20 16 04/18/2016 CBC w/ auto diff monocytes 10.7 % 4.1-12 .8 Not Available [address], 18[address], 04/18/2016 01:43:28 04/18/20 16 04/18/2016 CBC w/ auto diff eosinophils 1.20 % 0.00-7 .20 Not Available [address], [address], 04/18/2016 01:43:28 04/18/20 16 04/18/2016 CBC w/ auto diff basophils 0.30 % 0.00-2 .80 Not Available [address], [address], 04/18/2016 01:43:28 04/18/20 16 04/18/2016 CBC w/ auto diff absolute neutrophil 4.1 K/uL 1.4-7. 7 Not Available [address], [address]70, 04/18/2016 01:43:04/18/20 16 04/18/2016 CBC w/ auto diff absolute lymphocyte 1.7 K/uL 0.6-3. 2 Not Available [address], [address], 04/18/2016 01:43:04/18/20 16 04/18/2016 CBC w/ auto diff absolute monocytes 0.7 K/uL 0.1-0. 6 high Not Available [address], 65[address], 04/18/2016 01:43:28 04/18/20 16 04/18/2016 CBC w/ auto diff absolute eosinophil 0.08 K/uL 0.01-0 .50 Not Available [address], 17814, 04/18/2016 01:43:28 04/18/20 16 04/18/2016 CBC w/ auto diff absolute basophils 0.02 K/uL Not Available [address], [address], 04/18/2016 01:43:28 04/18/20 16 04/18/2016 CBC w/ auto diff immature granulocyte 0.20 % 0.00-0 .50 Not Available [address], [address], 04/18/2016 01:43:28 04/18/20 16 04/18/2016 CBC w/ auto diff absolute immature granulocyte 0.01 K/uL 0.00-0 .03 Not Available [address], [address], 04/18/2016 01:43:28 04/18/20 16 04/18/2016 urina lysis , dipst ick, refle x micro color Yellow Not Available [address], [address], 04/18/2016 01:53:43 04/18/20 16 04/18/2016 urina lysis , dipst ick, refle x micro appearance Clear Not Available [address], [address], 04/18/2016 01:53:43 04/18/20 16 04/18/2016 urina lysis , dipst ick, refle x micro specific gravity 1.015 1.005- 1.030 Not Available [address], [address], 04/18/2016 01:53:43 04/18/20 16 04/18/2016 urina lysis , dipst ick, refle x micro pH 6.0 5.0-7. 0 Not Available [address], [address], 04/18/2016 01:53:43 04/18/20 16 04/18/2016 urina lysis , dipst ick, refle x micro protein Negati ve negati ve Not Available [address], [address], 04/18/2016 01:53:43 04/18/20 16 04/18/2016 urina lysis , dipst ick, refle x micro glucose Negati ve negati ve Not Available [address], [address], 04/18/2016 01:53:43 04/18/20 16 04/18/2016 urina lysis , dipst ick, refle x micro ketones Negati ve negati ve Not Available [address], [address], 04/18/2016 01:53:43 04/18/20 16 04/18/2016 urina lysis , dipst ick, refle x micro bilirubin Negati ve negati ve Not Available [address], [address], 04/18/2016 01:53:43 04/18/20 16 04/18/2016 urina lysis , dipst ick, refle x micro blood Negati ve negati ve Not Available [address], [address], 04/18/2016 01:53:43 04/18/20 16 04/18/2016 urina lysis , dipst ick, refle x micro nitrite Negati ve negati ve Not Available [address], [address], 04/18/2016 01:53:43 04/18/20 16 04/18/2016 urina lysis , dipst ick, refle x micro leukocyte esterase Negati ve negati ve Not Available [address], [address], 04/18/2016 01:53:43 04/18/20 16 04/18/2016 ifeoma ol, quant itati ve, serum or plasm a alcohol,ser/ plas. <10 mg/dL <10 Not Available [address], [address], 04/18/2016 02:06:33 04/18/20 16 04/18/2016 salic ylate , quant itati ve, serum salicylate <0.3 mg/dL 2.8-20 .0 low Note: Resul ts less than 2.8 mg/dL are consi dered negat elma. Toxic : Great er than 30.0 mg/dL . Not Available [address], [address], 04/18/2016 02:06:36 04/18/20 16 04/18/2016 CMP, serum or plasm a glucose 106 mg/dL 70-99 high Not Available [address], [address], 04/18/2016 02:06:38 04/18/20 16 04/18/2016 CMP, serum or plasm a BUN 6 mg/dL 6-19 Not Available [address], [address], 04/18/2016 02:06:38 04/18/20 16 04/18/2016 CMP, serum or plasm a creatinine 0.7 mg/dL 0.5-1. 5 Not Available [address], [address], 04/18/2016 02:06:38 04/18/20 16 04/18/2016 CMP, serum [...] ages of 17 and 69. Not Available [address], [address], 04/18/2016 02:06:38 04/18/20 16 04/18/2016 CMP, serum or plasm a sodium 142 mEq/L 133-14 6 Not Available [address], [address], 04/18/2016 02:06:38 04/18/20 16 04/18/2016 CMP, serum or plasm a potassium 3.1 mEq/L 3.3-5. 1 low Not Available [address], [address], 04/18/2016 02:06:38 04/18/20 16 04/18/2016 CMP, serum or plasm a chloride 103 mEq/L 96-108 Not Available [address], [address], 04/18/2016 02:06:38 04/18/20 16 04/18/2016 CMP, serum or plasm a CO2 22 mEq/L 21-35 Not Available [address], [address], 04/18/2016 02:06:38 04/18/20 16 04/18/2016 CMP, serum or plasm a calcium 10.0 mg/dL 8.4-10 .3 Not Available [address], [address], 04/18/2016 02:06:38 04/18/20 16 04/18/2016 CMP, serum or plasm a total bilirubin 0.3 mg/dL 0.0-1. 2 Not Available [address], [address], 04/18/2016 02:06:38 04/18/20 16 04/18/2016 CMP, serum or plasm a alkaline phosphatase 74 U/L 39-117 Not Available [address], [address], 04/18/2016 02:06:38 04/18/20 16 04/18/2016 CMP, serum or plasm a AST (SGOT) 30 U/L 0-37 Not Available [address], [address], 04/18/2016 02:06:38 04/18/20 16 04/18/2016 CMP, serum or plasm a ALT (SGPT) 31 U/L 0-40 Not Available [address], [address], 04/18/2016 02:06:38 04/18/20 16 04/18/2016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
--- OUTSIDE RECORDS SUMMARY | 2024-10-22 15:26 | XMS_ITS | Encounter Summary ---
Author Organization [employer] Address [address] [place] [address] Care Team Providers Care Economic Research Analyst Name Role Phone Raquel Gao MD Primary Care Provider [phone] Reason for Visit * Reason Onset Date Comments Care Coordination 10/20/2024 medical update 10/20/2024 Encounter Details Date Type Department Care Team (Late st Contact Info) Description 10/20/2024 Telephone [facility] MEDICAL [address] [place] [address] Raquel Gao MD [address] [place] [address] Care Coordination; medical update Social History Tobacco Use Types Packs/Day Years [...] * Telephone Encounter - Zenaida Tavarez - 10/20/2024 3:27 PM EST Patient called. Patient got moved to the 3rd floor room number 363 in [facility] due to a finding with his lungs. Patient will update you when he is released. Possible pneumonia or collapsed right lung. Patient will call when he is released from the hospital Appointment for 2/3 was cancelled. Please obtain medical records documented in this encounter Plan of Treatment Not on file documented as of this encounter Visit Diagnoses Not on filedocumented in this encounter Care Teams Economic Research Analyst Relationship Specialty Start Date End Date Raquel Gao [facility] [address] [facility] [place] [address] PCP - General Family Medicine 09/30/22 documented as of this encounter
--- OUTSIDE RECORDS SUMMARY | 2024-10-22 15:26 | XMS_ITS | Clinical Summary ---
Author Organization [facility] it Address [address] [place] [address] Care Team Providers Care Chief Data Officer Name Role Phone Unavailable Primary Care Provider [...]
--- OUTSIDE RECORDS SUMMARY | 2024-10-22 15:26 | XMS_ITS | Encounter Summary ---
Author Organization [employer] Address [address] [place] [address] [address] [place] [address] Care Team Providers Care Gas Engine Operator Name Role Phone Raquel Gao MD Primary Care Provider [phone] Encounter Details Date Type Department Care Team (Late st Contact Info) Description 10/05/2024 Telephone [facility] MEDICAL [address] [place] [address] Raquel Gao MD [address] [place] [address] Social History Tobacco Use Types Packs/Day Years [...] Ariella Mayers - 10/05/2024 3:15 PM EST [facility] called requesting cb from [phone] Ext [phone], hung up before specifying why documented in this encounter Plan of Treatment Not on file documented as of this encounter Visit Diagnoses Not on filedocumented in this encounter Care Teams Gas Engine Operator Relationship Specialty Start Date End Date Raquel Gao MD [address] [place] [address] PCP - General Family Medicine 09/30/22 documented as of this encounter
[2024-10-22 15:30] VITALS: BMI 38.0
[2024-10-22] MEDS: Nicotine Polacrilex 2 MG GUM 4 MG BUCCAL ×3 (15:42→23:43)
--- NOTE | 2024-10-22 17:39 | PC.ADMIT ---
Moses was transferred from the medical floor today at 1500. He was on M5 previously for SI, was transferred to medicine for hypoxia. He is alert and oriented x4, pleasant, blunted affect and pressured speech. He was cooperative with skin/safety check, skin check only significant for petichiae on anterior aspects of both feet, thats not new . He signed a CV with Dr Dougherty. He plans on leaving friday, my pcp is great, she has a sober living house and has a few open beds. She is saving one for me . He denies urges to harm self or others and any auditory or visual hallucinations. He was placed on 15 minute safety checks.
[2024-10-22 19:30] VITALS: BP 111/60; PULSE 95; RESP 18; TEMP 36.3; O2SAT 94
[2024-10-22 20:00] VITALS: BP 136/72; PULSE 79; RESP 15; TEMP 36.8; O2SAT 94
[2024-10-22] MEDS: Gabapentin 400 MG CAPSULE 800 MG PO (20:06)
[2024-10-22] MEDS: Docusate Sodium 100 MG CAPSULE 200 MG PO (20:06)
[2024-10-22] MEDS: QUEtiapine Fumarate 200 MG TABLET PO (20:07)
[2024-10-22] MEDS: Amitriptyline HCl 25 MG TABLET PO (20:07)
[2024-10-22] MEDS: Zolpidem Tartrate 5 MG TABLET 10 MG PO (20:07)
[2024-10-22] MEDS: Prazosin HCL 1 MG CAPSULE 4 MG PO (20:07)
[2024-10-22] MEDS: Famotidine 20 MG TABLET PO (20:07)
[2024-10-22] MEDS: busPIRone HCl 10 MG TABLET 30 MG PO (20:08)
[2024-10-22] MEDS: Amoxicillin/Potassium Clav 875 MG TABLET PO (23:30)
[2024-10-23] MEDS: Albuterol Sulfate 90 MCG 8 GM INHALER 2 PUFF INHALE ×2 (00:16→19:07)
[2024-10-23] MEDS: methADONE HCl 20 MG/2 ML ORAL.CONC 175 MG PO (07:48)
[2024-10-23 08:00] VITALS: BP 136/84; PULSE 85; RESP 16; TEMP 36.6; O2SAT 93
[2024-10-23] MEDS: buPROPion HCl XL 150 MG TAB.ER.24H PO (08:39)
[2024-10-23] MEDS: Gabapentin 400 MG CAPSULE 800 MG PO ×3 (08:40→20:43)
[2024-10-23] MEDS: Docusate Sodium 100 MG CAPSULE 200 MG PO ×2 (08:40→20:44)
[2024-10-23] MEDS: Dextroamphetamine/Amphetamine XR 10 MG CAP.ER.24H 30 MG PO (08:40)
[2024-10-23] MEDS: Sennosides 8.6 MG TABLET 17.2 MG PO (08:41)
[2024-10-23] MEDS: busPIRone HCl 10 MG TABLET 30 MG PO ×3 (08:41→20:44)
[2024-10-23] MEDS: Famotidine 20 MG TABLET PO ×2 (08:42→20:44)
[2024-10-23] MEDS: Nicotine Polacrilex 2 MG GUM 4 MG BUCCAL ×5 (08:45→20:52)
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
[2024-10-23] MEDS: Amoxicillin/Potassium Clav 875 MG TABLET PO ×2 (12:11→23:15)
[2024-10-23] MEDS: Nicotine 21 MG PATCH.TD24 TRANSDERMA (12:16)
[2024-10-23] MEDS: Amphetamine Mixed Salts 20 MG TABLET 30 MG PO (14:42)
[2024-10-23 20:00] VITALS: BP 137/78; PULSE 91; RESP 15; TEMP 36.8; O2SAT 97
[2024-10-23] MEDS: Zolpidem Tartrate 5 MG TABLET 10 MG PO (20:43)
[2024-10-23] MEDS: Prazosin HCL 1 MG CAPSULE 4 MG PO (20:43)
[2024-10-23] MEDS: Amitriptyline HCl 25 MG TABLET PO (20:44)
[2024-10-23] MEDS: QUEtiapine Fumarate 200 MG TABLET PO (20:44)
[2024-10-24] MEDS: methADONE HCl 20 MG/2 ML ORAL.CONC 175 MG PO (07:34)
[2024-10-24] MEDS: Nicotine Polacrilex 2 MG GUM 4 MG BUCCAL ×5 (07:37→21:04)
[2024-10-24] MEDS: polyethylene glycoL 3350 17 GM POWD.PACK PO (09:01)
[2024-10-24] MEDS: buPROPion HCl XL 150 MG TAB.ER.24H PO (09:02)
[2024-10-24] MEDS: Sennosides 8.6 MG TABLET 17.2 MG PO (09:02)
[2024-10-24] MEDS: Famotidine 20 MG TABLET PO ×2 (09:02→20:04)
[2024-10-24] MEDS: Docusate Sodium 100 MG CAPSULE 200 MG PO ×2 (09:02→20:04)
[2024-10-24] MEDS: Dextroamphetamine/Amphetamine XR 10 MG CAP.ER.24H 30 MG PO (09:02)
[2024-10-24] MEDS: Gabapentin 400 MG CAPSULE 800 MG PO ×3 (09:02→20:04)
[2024-10-24] MEDS: busPIRone HCl 10 MG TABLET 30 MG PO ×3 (09:02→20:04)
[2024-10-24] MEDS: Nicotine 21 MG PATCH.TD24 TRANSDERMA (09:05)
[2024-10-24 09:13] VITALS: BP 135/78; PULSE 85; RESP 16; TEMP 36.9; O2SAT 93
--- NOTE | 2024-10-24 09:45 | P.PNPSI_ITS ---
Subjective Subjective Date of Service: 10/24/24 Reason For Visit: Decompensation Interim History: Met with pt. Discussed with nursing. Continues to report feeling well and hopeful for discharge tomorrow. Denies SI, HI, agitation, cravings, psychosis. Sleep and appetite OK. Medication Compliance: Yes Side effects from medications: No Attending Groups: Intermittent Review of Systems Acute medical concerns: No Review of Systems Review of Systems Yes all other systems are reviewed and are negative Mental Status Exam Mental Status Exam Patient Appearance: Appropriate Patient Orientation: Person, Place, Time and Situation Level of Consciousness: Awake, Appropriate and Follows Commands Patient Behavior: Appropriate Mood Description: Calm Affect Description: Calm Patient Cognition Impaired: No Ability to Follow Directions: Good Speech Pattern: Clear Memory Description: Intact Diagnostics Vital Signs (24Hr): Vital Signs - 24 hr 10/23/24 20:00 10/24/24 09:13 Temperature 98.2 F 98.4 F Pulse Rate 91 85 Respiratory Rate 15 16 Blood Pressure 137/78 135/78 Pulse Oximetry 97 93 Oxygen Delivery Method Room Air BMI result Body Mass Index 38.0 Medications Medications Current Medications Acetaminophen (Acetaminophen 325 Mg Tablet) 650 mg PO Q6H PRN PRN Reason: Headache/Pain Mild Scale (1-3) Al Hydroxide/Mg Hydroxide (Magnesium Hydrox/Alum Hydrox 30 Ml Oral.Susp) 30 ml PO Q6H PRN PRN Reason: Heartburn/Nausea Albuterol Sulfate (Albuterol Sulfate 90 Mcg 8 Gm Inhaler) 2 puff INHALE RQ4H PRN PRN Reason: Wheezing Last Admin: 10/23/24 19:07 Dose: 2 puff Amitriptyline HCl (Amitriptyline Hcl 25 Mg Tablet) 25 mg PO BEDTIME [facility] Last Admin: 10/23/24 20:44 Dose: 25 mg Amoxicillin/Clavulanate Potassium (Amoxicillin/Potassium Clav 875 Mg Tablet) 875 mg PO Q12H ERNA Stop: 10/27/24 11:01 Last Admin: 10/23/24 23:15 Dose: 875 mg Amphetamine/Dextroamphetamine (Dextroamphetamine/Amphetamine Xr 10 Mg Cap.Er.24h) 30 mg PO DAILY [facility] Last Admin: 10/24/24 09:02 Dose: 30 mg Amphetamine/Dextroamphetamine (Amphetamine Mixed Salts 20 Mg Tablet) 30 mg PO 1400 [facility] Last Admin: 10/23/24 14:42 Dose: 30 mg Bupropion HCl (Bupropion Hcl Xl 150 Mg Tab.Er.24h) 150 mg PO DAILY [facility] Last Admin: 10/24/24 09:02 Dose: 150 mg Buspirone HCl (Buspirone Hcl 10 Mg Tablet) 30 mg PO TID [facility] Last Admin: 10/24/24 09:02 Dose: 30 mg Docusate Sodium (Docusate Sodium 100 Mg Capsule) 200 mg PO BID [facility] Last Admin: 10/24/24 09:02 Dose: 200 mg Famotidine (Famotidine 20 Mg Tablet) 20 mg PO BID [facility] Last Admin: 10/24/24 09:02 Dose: 20 mg Gabapentin (Gabapentin 400 Mg Capsule) 800 mg PO TID [facility] Last Admin: 10/24/24 09:02 Dose: 800 mg Hydroxyzine HCl (Hydroxyzine Hcl 25 Mg Tablet) 25 mg PO Q6H PRN PRN Reason: Anxiety Lactulose (Lactulose 20 Gm/30 Ml Solution) 30 gm PO DAILY [facility] Last Admin: 10/24/24 09:13 Dose: Not Given Magnesium Hydroxide (Milk Of Magnesia 30 Ml Oral.Susp) 30 ml PO DAILY PRN PRN Reason: Constipation Methadone HCl (Methadone Hcl 20 Mg/2 Ml Oral.Conc) 175 mg PO DAILY@0800 [facility] Last Admin: 10/24/24 07:34 Dose: 175 mg Multi-Ingred Cream/Lotion/Oil/Oint (Mineral Oil/Petrolatum,White 106 Gm Tube) 1 appl TOPICAL BID PRN; Protocol PRN Reason: dry skin Nicotine (Nicotine 21 Mg Patch.Td24) 21 mg TRANSDERMA DAILY PRN PRN Reason: smoking cessation Last Admin: 10/24/24 09:05 Dose: 21 mg Nicotine Polacrilex (Nicotine Polacrilex 2 Mg Gum) 4 mg BUCCAL Q2H PRN PRN Reason: Nicotine Cravings Last Admin: 10/24/24 07:37 Dose: 4 mg Ondansetron HCl (Ondansetron Odt 4 Mg Tab.Rapdis) 4 mg TRANSLINGU Q6H PRN PRN Reason: Nausea And Vomiting Polyethylene Glycol (Polyethylene Glycol 3350 17 Gm Powd.Pack) 17 gm PO BID [facility] Last Admin: 10/24/24 09:01 Dose: 17 gm Prazosin HCl (Prazosin Hcl 1 Mg Capsule) 4 mg PO BEDTIME [facility]; Protocol Last Admin: 10/23/24 20:43 Dose: 4 mg Quetiapine Fumarate (Quetiapine Fumarate 200 Mg Tablet) 200 mg PO BEDTIME ERNA Last Admin: 10/23/24 20:44 Dose: 200 mg Senna (Sennosides 8.6 Mg Tablet) 17.2 mg PO DAILY ERNA Last Admin: 10/24/24 09:02 Dose: 17.2 mg Trazodone HCl (Trazodone Hcl 50 Mg Tablet) 50 mg PO BEDTIME MRX1 PRN PRN Reason: Insomnia Triamcinolone Acetonide (Triamcinolone Acet 0.1 % Cream 15 Gm Tube) 1 appl TOPICAL BID ERNA; Protocol Last Admin: 10/24/24 09:13 Dose: Not Given Zolpidem Tartrate (Zolpidem Tartrate 5 Mg Tablet) 10 mg PO BEDTIME PRN PRN Reason: Insomnia Last Admin: 10/23/24 20:43 Dose: 10 mg Allergies Allergies Allergy/AdvReac Type Severity Reaction Status Date / Time haloperidol [From HALDOL] AdvReac Intermediate LOCK JAW Verified 10/09/24 15:16 olanzapine [From ZYPREXA] AdvReac Unknown PT REPORTS Verified 10/09/24 15:16 FEELS LIKE I AM ON AN ACID TRIP Assessment & Plan Assessment & Plan (1) MDD (major depressive disorder), recurrent episode, moderate: Status: Acute Code(s): F33.1 - Major depressive disorder, recurrent, moderate (2) ADHD (attention deficit hyperactivity disorder): Status: Acute Code(s): F90.9 - Attention-deficit hyperactivity disorder, unspecified type (3) Opioid use disorder, severe, dependence: Status: Acute Code(s): F11.20 - Opioid dependence, uncomplicated (4) Pneumonia: Status: Acute Code(s): J18.9 - Pneumonia, unspecified organism Plan Pt currently doing well on current regimen. Recovering physically from pneumonia. Readmit with previous treatment plan in place and no changes. Dispo planning already initiated and eager for discharge Friday10/25/24. 10/24: no changes. Eager for discharge tomorrow Reason for continued inpatient stay Substantial Risk for: rapid decompensation Time Spent With Patient Time: Total time managing care of this patient today ____ minutes.
[2024-10-24] MEDS: Amoxicillin/Potassium Clav 875 MG TABLET PO ×2 (11:16→22:03)
[2024-10-24] MEDS: Amphetamine Mixed Salts 20 MG TABLET 30 MG PO (13:30)
[2024-10-24] MEDS: Acetaminophen 325 MG TABLET 650 MG PO (15:46)
[2024-10-24 19:52] VITALS: BP 161/96; PULSE 94; RESP 15; TEMP 36.9; O2SAT 94
[2024-10-24] MEDS: Prazosin HCL 1 MG CAPSULE 4 MG PO (20:03)
[2024-10-24] MEDS: QUEtiapine Fumarate 200 MG TABLET PO (20:04)
[2024-10-24] MEDS: Amitriptyline HCl 25 MG TABLET PO (20:04)
[2024-10-24] MEDS: Zolpidem Tartrate 5 MG TABLET 10 MG PO (20:04)
[2024-10-25] MEDS: methADONE HCl 20 MG/2 ML ORAL.CONC 175 MG PO (07:59)
[2024-10-25 08:10] VITALS: BP 149/68; PULSE 98; RESP 18; TEMP 2.7; TEMP 36.8; O2SAT 94
[2024-10-25] MEDS: busPIRone HCl 10 MG TABLET 30 MG PO ×3 (09:26→20:47)
[2024-10-25] MEDS: Gabapentin 400 MG CAPSULE 800 MG PO ×3 (09:26→20:48)
[2024-10-25] MEDS: Nicotine Polacrilex 2 MG GUM 4 MG BUCCAL ×5 (09:26→20:48)
[2024-10-25] MEDS: Famotidine 20 MG TABLET PO ×2 (09:26→20:47)
[2024-10-25] MEDS: Docusate Sodium 100 MG CAPSULE 200 MG PO ×2 (09:26→20:48)
[2024-10-25] MEDS: buPROPion HCl XL 150 MG TAB.ER.24H PO (09:26)
[2024-10-25] MEDS: Sennosides 8.6 MG TABLET 17.2 MG PO (09:27)
[2024-10-25] MEDS: Dextroamphetamine/Amphetamine XR 10 MG CAP.ER.24H 30 MG PO (09:27)
[2024-10-25] MEDS: Amoxicillin/Potassium Clav 875 MG TABLET PO ×2 (11:23→22:14)
[2024-10-25] MEDS: Nicotine 21 MG PATCH.TD24 TRANSDERMA (11:27)
[2024-10-25] MEDS: Amphetamine Mixed Salts 20 MG TABLET 30 MG PO (13:41)
--- NOTE | 2024-10-25 15:19 | HO.PSYCHPN ---
Subjective Subjective Date of Service: 10/25/24 Reason For Visit: Decompensation Subjective Notes: Conditional Voluntary Healthcare Proxy: No Guardianship: No Medical Problems Affecting Mental Status: No Interim History: Pt reports no constipation, some persisting congestion. Will finish antibiotic course in ~2.5 days. Today, he reports he was supposed to meet with Dr. Nguyen regarding housing but missed the appt due to not being discharged. Call/message left for Dr. Nguyen without return call. Pt working on DC planning. He has not agreed to referral to CSS as yet--he is hoping for admit to one of two programs of his choice, however, waiting lists are long. Medication Compliance: Yes Side effects from medications: No Attending Groups: Intermittent Review of Systems Acute medical concerns: No Review of Systems Review of Systems some congestion persists Mental Status Exam Mental Status Exam Patient Appearance: Appropriate Patient Orientation: Person, Place, Time and Situation Level of Consciousness: Awake, Appropriate and Follows Commands Patient Behavior: Appropriate Mood Description: Calm Affect Description: Calm Patient Cognition Impaired: No Ability to Follow Directions: Good Speech Pattern: Clear Memory Description: Intact Diagnostics Vital Signs (24Hr): Vital Signs - 24 hr 10/24/24 19:52 10/25/24 08:10 Temperature 98.4 F 36.8 F L Pulse Rate 94 98 Respiratory Rate 15 18 Blood Pressure 161/96 H 149/68 H Pulse Oximetry 94 94 Oxygen Delivery Method Room Air BMI result Body Mass Index 38.0 Medications Medications Current Medications Acetaminophen (Acetaminophen 325 Mg Tablet) 650 mg PO Q6H PRN PRN Reason: Headache/Pain Mild Scale (1-3) Last Admin: 10/24/24 15:46 Dose: 650 mg Al Hydroxide/Mg Hydroxide (Magnesium Hydrox/Alum Hydrox 30 Ml Oral.Susp) 30 ml PO Q6H PRN PRN Reason: Heartburn/Nausea Albuterol Sulfate (Albuterol Sulfate 90 Mcg 8 Gm Inhaler) 2 puff INHALE RQ4H PRN PRN Reason: Wheezing Last Admin: 10/23/24 19:07 Dose: 2 puff Amitriptyline HCl (Amitriptyline Hcl 25 Mg Tablet) 25 mg PO BEDTIME ERNA Last Admin: 10/24/24 20:04 Dose: 25 mg Amoxicillin/Clavulanate Potassium (Amoxicillin/Potassium Clav 875 Mg Tablet) 875 mg PO Q12H ERNA Stop: 10/27/24 11:01 Last Admin: 10/25/24 11:23 Dose: 875 mg Amphetamine/Dextroamphetamine (Dextroamphetamine/Amphetamine Xr 10 Mg Cap.Er.24h) 30 mg PO DAILY [facility] Last Admin: 10/25/24 09:27 Dose: 30 mg Amphetamine/Dextroamphetamine (Amphetamine Mixed Salts 20 Mg Tablet) 30 mg PO 1400 [facility] Last Admin: 10/25/24 13:41 Dose: 30 mg Bupropion HCl (Bupropion Hcl Xl 150 Mg Tab.Er.24h) 150 mg PO DAILY [facility] Last Admin: 10/25/24 09:26 Dose: 150 mg Buspirone HCl (Buspirone Hcl 10 Mg Tablet) 30 mg PO TID [facility] Last Admin: 10/25/24 13:49 Dose: 30 mg Docusate Sodium (Docusate Sodium 100 Mg Capsule) 200 mg PO BID [facility] Last Admin: 10/25/24 09:26 Dose: 200 mg Famotidine (Famotidine 20 Mg Tablet) 20 mg PO BID [facility] Last Admin: 10/25/24 09:26 Dose: 20 mg Gabapentin (Gabapentin 400 Mg Capsule) 800 mg PO TID [facility] Last Admin: 10/25/24 13:49 Dose: 800 mg Hydroxyzine HCl (Hydroxyzine Hcl 25 Mg Tablet) 25 mg PO Q6H PRN PRN Reason: Anxiety Lactulose (Lactulose 20 Gm/30 Ml Solution) 30 gm PO DAILY [facility] Last Admin: 10/25/24 09:31 Dose: Not Given Magnesium Hydroxide (Milk Of Magnesia 30 Ml Oral.Susp) 30 ml PO DAILY PRN PRN Reason: Constipation Methadone HCl (Methadone Hcl 20 Mg/2 Ml Oral.Conc) 175 mg PO DAILY@0800 [facility] Last Admin: 10/25/24 07:59 Dose: 175 mg Multi-Ingred Cream/Lotion/Oil/Oint (Mineral Oil/Petrolatum,White 106 Gm Tube) 1 appl TOPICAL BID PRN; Protocol PRN Reason: dry skin Nicotine (Nicotine 21 Mg Patch.Td24) 21 mg TRANSDERMA DAILY PRN PRN Reason: smoking cessation Last Admin: 10/25/24 11:27 Dose: 21 mg Nicotine Polacrilex (Nicotine Polacrilex 2 Mg Gum) 4 mg BUCCAL Q2H PRN PRN Reason: Nicotine Cravings Last Admin: 10/25/24 13:41 Dose: 4 mg Ondansetron HCl (Ondansetron Odt 4 Mg Tab.Rapdis) 4 mg TRANSLINGU Q6H PRN PRN Reason: Nausea And Vomiting Polyethylene Glycol (Polyethylene Glycol 3350 17 Gm Powd.Pack) 17 gm PO BID ERNA Last Admin: 10/25/24 09:31 Dose: Not Given Prazosin HCl (Prazosin Hcl 1 Mg Capsule) 4 mg PO BEDTIME ERNA; Protocol Last Admin: 10/24/24 20:03 Dose: 4 mg Quetiapine Fumarate (Quetiapine Fumarate 300 Mg Tablet) 300 mg PO BEDTIME [facility] Senna (Sennosides 8.6 Mg Tablet) 17.2 mg PO DAILY [facility] Last Admin: 10/25/24 09:27 Dose: 17.2 mg Trazodone HCl (Trazodone Hcl 50 Mg Tablet) 50 mg PO BEDTIME MRX1 PRN PRN Reason: Insomnia Triamcinolone Acetonide (Triamcinolone Acet 0.1 % Cream 15 Gm Tube) 1 appl TOPICAL BID ERNA; Protocol Last Admin: 10/25/24 09:32 Dose: Not Given Zolpidem Tartrate (Zolpidem Tartrate 5 Mg Tablet) 10 mg PO BEDTIME PRN PRN Reason: Insomnia Last Admin: 10/24/24 20:04 Dose: 10 mg Allergies Allergies Allergy/AdvReac Type Severity Reaction Status Date / Time haloperidol [From HALDOL] AdvReac Intermediate LOCK JAW Verified 10/09/24 15:16 olanzapine [From ZYPREXA] AdvReac Unknown PT REPORTS Verified 10/09/24 15:16 FEELS LIKE I AM ON AN ACID TRIP Assessment & Plan Assessment & Plan (1) MDD (major depressive disorder), recurrent episode, moderate: Status: Acute Code(s): F33.1 - Major depressive disorder, recurrent, moderate (2) ADHD (attention deficit hyperactivity disorder): Status: Acute Code(s): F90.9 - Attention-deficit hyperactivity disorder, unspecified type (3) Opioid use disorder, severe, dependence: Status: Acute Code(s): F11.20 - Opioid dependence, uncomplicated (4) Pneumonia: Status: Acute Code(s): J18.9 - Pneumonia, unspecified organism Plan Pt currently doing well on current regimen. Recovering physically from pneumonia. Readmit with previous treatment plan in place and no changes. Dispo planning already initiated and eager for discharge Yevgeniy 2/3/25. 10/24: no changes. Eager for discharge tomorrow 10/25: Discharge planning-attempting to help pt to find a program. Seroquel increase to 300 mg HS to assist with sleep interruption he is reporting. Reason for continued inpatient stay Substantial Risk for: rapid decompensation Time Spent With Patient Time: Total time managing care of this patient today ____ minutes.
[2024-10-25] MEDS: Albuterol Sulfate 90 MCG 8 GM INHALER 2 PUFF INHALE (19:18)
[2024-10-25 20:00] VITALS: BP 167/99; PULSE 84; RESP 16; TEMP 36.3; O2SAT 91
[2024-10-25] MEDS: Amitriptyline HCl 25 MG TABLET PO (20:47)
[2024-10-25] MEDS: QUEtiapine Fumarate 300 MG TABLET PO (20:47)
[2024-10-25] MEDS: Zolpidem Tartrate 5 MG TABLET 10 MG PO (20:47)
[2024-10-25] MEDS: Prazosin HCL 1 MG CAPSULE 4 MG PO (20:48)
[2024-10-26] MEDS: methADONE HCl 20 MG/2 ML ORAL.CONC 175 MG PO (07:39)
[2024-10-26 08:00] VITALS: BP 123/71; PULSE 88; RESP 18; TEMP 36.8; O2SAT 93
[2024-10-26] MEDS: Sennosides 8.6 MG TABLET 17.2 MG PO (08:32)
[2024-10-26] MEDS: buPROPion HCl XL 150 MG TAB.ER.24H PO (08:32)
[2024-10-26] MEDS: Dextroamphetamine/Amphetamine XR 10 MG CAP.ER.24H 30 MG PO (08:32)
[2024-10-26] MEDS: Famotidine 20 MG TABLET PO ×2 (08:32→20:26)
[2024-10-26] MEDS: Gabapentin 400 MG CAPSULE 800 MG PO ×3 (08:32→20:26)
[2024-10-26] MEDS: Docusate Sodium 100 MG CAPSULE 200 MG PO ×2 (08:32→20:26)
[2024-10-26] MEDS: busPIRone HCl 10 MG TABLET 30 MG PO ×3 (08:33→20:26)
[2024-10-26] MEDS: polyethylene glycoL 3350 17 GM POWD.PACK PO (08:33)
[2024-10-26] MEDS: Nicotine Polacrilex 2 MG GUM 4 MG BUCCAL ×5 (08:41→19:00)
--- NOTE | 2024-10-26 10:28 | HO.PSYCHPN ---
Subjective Subjective Date of Service: 10/26/24 Reason For Visit: Decompensation Subjective Notes: Conditional Voluntary Healthcare Proxy: No Guardianship: No Medical Problems Affecting Mental Status: No Interim History: Pt reportedly talking in group today about discharge and relapse. Messages left for his MD, Dr. Gao to discuss housing options he reports she has for him. Team reports poor interest in treatment with significant resistance. Long team discussion regarding his level of risk and lethality. Will begin Section 35 request for further care to present on 10/28. Medication Compliance: Yes Side effects from medications: No Attending Groups: Intermittent Review of Systems Acute medical concerns: No Medical Review of Systems: unchanged Review of Systems Review of Systems Denies Mental Status Exam Mental Status Exam Patient Appearance: Appropriate Patient Orientation: Person, Place, Time and Situation Level of Consciousness: Awake and Appropriate Patient Behavior: Appropriate, Talkative and Good Eye Contact Mood Description: Constricted Affect Description: Constricted Patient Cognition Impaired: No Ability to Follow Directions: Good Speech Pattern: Clear Memory Description: Intact Hallucinations: None Delusions: Not Present Thought Process: Distracted and Rumination Thought Content: positive for Circumstantial Depressive Symptoms: Increased Irritability Judgement: Fair Diagnostics Vital Signs (24Hr): Vital Signs - 24 hr 10/25/24 20:00 10/26/24 08:00 Temperature 97.4 F 98.2 F Pulse Rate 84 88 Respiratory Rate 16 18 Blood Pressure 167/99 H 123/71 Pulse Oximetry 91 L 93 Oxygen Delivery Method Room Air Room Air BMI result Body Mass Index 38.0 Medications Medications Current Medications Acetaminophen (Acetaminophen 325 Mg Tablet) 650 mg PO Q6H PRN PRN Reason: Headache/Pain Mild Scale (1-3) Last Admin: 10/24/24 15:46 Dose: 650 mg Al Hydroxide/Mg Hydroxide (Magnesium Hydrox/Alum Hydrox 30 Ml Oral.Susp) 30 ml PO Q6H PRN PRN Reason: Heartburn/Nausea Albuterol Sulfate (Albuterol Sulfate 90 Mcg 8 Gm Inhaler) 2 puff INHALE RQ4H PRN PRN Reason: Wheezing Last Admin: 10/25/24 19:18 Dose: 2 puff Amitriptyline HCl (Amitriptyline Hcl 25 Mg Tablet) 25 mg PO BEDTIME ERNA Last Admin: 10/25/24 20:47 Dose: 25 mg Amoxicillin/Clavulanate Potassium (Amoxicillin/Potassium Clav 875 Mg Tablet) 875 mg PO Q12H [facility] Stop: 10/27/24 11:01 Last Admin: 10/25/24 22:14 Dose: 875 mg Amphetamine/Dextroamphetamine (Dextroamphetamine/Amphetamine Xr 10 Mg Cap.Er.24h) 30 mg PO DAILY [facility] Last Admin: 10/26/24 08:32 Dose: 30 mg Amphetamine/Dextroamphetamine (Amphetamine Mixed Salts 20 Mg Tablet) 30 mg PO 1400 [facility] Last Admin: 10/25/24 13:41 Dose: 30 mg Bupropion HCl (Bupropion Hcl Xl 150 Mg Tab.Er.24h) 150 mg PO DAILY [facility] Last Admin: 10/26/24 08:32 Dose: 150 mg Buspirone HCl (Buspirone Hcl 10 Mg Tablet) 30 mg PO TID [facility] Last Admin: 10/26/24 08:33 Dose: 30 mg Docusate Sodium (Docusate Sodium 100 Mg Capsule) 200 mg PO BID [facility] Last Admin: 10/26/24 08:32 Dose: 200 mg Famotidine (Famotidine 20 Mg Tablet) 20 mg PO BID [facility] Last Admin: 10/26/24 08:32 Dose: 20 mg Gabapentin (Gabapentin 400 Mg Capsule) 800 mg PO TID [facility] Last Admin: 10/26/24 08:32 Dose: 800 mg Hydroxyzine HCl (Hydroxyzine Hcl 25 Mg Tablet) 25 mg PO Q6H PRN PRN Reason: Anxiety Lactulose (Lactulose 20 Gm/30 Ml Solution) 30 gm PO DAILY [facility] Last Admin: 10/26/24 08:34 Dose: Not Given Magnesium Hydroxide (Milk Of Magnesia 30 Ml Oral.Susp) 30 ml PO DAILY PRN PRN Reason: Constipation Methadone HCl (Methadone Hcl 20 Mg/2 Ml Oral.Conc) 175 mg PO DAILY@0800 [facility] Last Admin: 10/26/24 07:39 Dose: 175 mg Multi-Ingred Cream/Lotion/Oil/Oint (Mineral Oil/Petrolatum,White 106 Gm Tube) 1 appl TOPICAL BID PRN; Protocol PRN Reason: dry skin Nicotine (Nicotine 21 Mg Patch.Td24) 21 mg TRANSDERMA DAILY PRN PRN Reason: smoking cessation Last Admin: 10/25/24 11:27 Dose: 21 mg Nicotine Polacrilex (Nicotine Polacrilex 2 Mg Gum) 4 mg BUCCAL Q2H PRN PRN Reason: Nicotine Cravings Last Admin: 10/26/24 08:41 Dose: 4 mg Ondansetron HCl (Ondansetron Odt 4 Mg Tab.Rapdis) 4 mg TRANSLINGU Q6H PRN PRN Reason: Nausea And Vomiting Polyethylene Glycol (Polyethylene Glycol 3350 17 Gm Powd.Pack) 17 gm PO BID ERNA Last Admin: 10/26/24 08:33 Dose: 17 gm Prazosin HCl (Prazosin Hcl 1 Mg Capsule) 4 mg PO BEDTIME ERNA; Protocol Last Admin: 10/25/24 20:48 Dose: 4 mg Quetiapine Fumarate (Quetiapine Fumarate 300 Mg Tablet) 300 mg PO BEDTIME ERNA Last Admin: 10/25/24 20:47 Dose: 300 mg Senna (Sennosides 8.6 Mg Tablet) 17.2 mg PO DAILY ERNA Last Admin: 10/26/24 08:32 Dose: 17.2 mg Trazodone HCl (Trazodone Hcl 50 Mg Tablet) 50 mg PO BEDTIME MRX1 PRN PRN Reason: Insomnia Triamcinolone Acetonide (Triamcinolone Acet 0.1 % Cream 15 Gm Tube) 1 appl TOPICAL BID ERNA; Protocol Last Admin: 10/26/24 08:41 Dose: Not Given Zolpidem Tartrate (Zolpidem Tartrate 5 Mg Tablet) 10 mg PO BEDTIME PRN PRN Reason: Insomnia Last Admin: 10/25/24 20:47 Dose: 10 mg Allergies Allergies Allergy/AdvReac Type Severity Reaction Status Date / Time haloperidol [From HALDOL] AdvReac Intermediate LOCK JAW Verified 10/09/24 15:16 olanzapine [From ZYPREXA] AdvReac Unknown PT REPORTS Verified 10/09/24 15:16 FEELS LIKE I AM ON AN ACID TRIP Assessment & Plan Assessment & Plan (1) MDD (major depressive disorder), recurrent episode, moderate: Status: Acute Code(s): F33.1 - Major depressive disorder, recurrent, moderate (2) ADHD (attention deficit hyperactivity disorder): Status: Acute Code(s): F90.9 - Attention-deficit hyperactivity disorder, unspecified type (3) Opioid use disorder, severe, dependence: Status: Acute Code(s): F11.20 - Opioid dependence, uncomplicated (4) Pneumonia: Status: Acute Code(s): J18.9 - Pneumonia, unspecified organism Plan Pt currently doing well on current regimen. Recovering physically from pneumonia. Readmit with previous treatment plan in place and no changes. Dispo planning already initiated and eager for discharge Friday10/25/24. 10/24: no changes. Eager for discharge tomorrow 10/26: Will file Section 35 on 10/28. Reason for continued inpatient stay Substantial Risk for: rapid decompensation Time Spent With Patient Time: Total time managing care of this patient today ____ minutes.
[2024-10-26] MEDS: Amoxicillin/Potassium Clav 875 MG TABLET PO ×2 (10:32→23:56)
[2024-10-26] MEDS: Albuterol Sulfate 90 MCG 8 GM INHALER 2 PUFF INHALE ×2 (11:09→19:03)
[2024-10-26] MEDS: Amphetamine Mixed Salts 20 MG TABLET 30 MG PO (14:16)
[2024-10-26 20:00] VITALS: BP 151/88; PULSE 104; RESP 18; TEMP 36.8; O2SAT 95
[2024-10-26] MEDS: Prazosin HCL 1 MG CAPSULE 4 MG PO (20:26)
[2024-10-26] MEDS: Amitriptyline HCl 25 MG TABLET PO (20:26)
[2024-10-26] MEDS: QUEtiapine Fumarate 300 MG TABLET PO (20:26)
[2024-10-26] MEDS: Zolpidem Tartrate 5 MG TABLET 10 MG PO (20:27)
[2024-10-27] MEDS: methADONE HCl 20 MG/2 ML ORAL.CONC 175 MG PO (07:43)
[2024-10-27 08:00] VITALS: BP 134/70; PULSE 84; RESP 18; TEMP 36.6; O2SAT 90
[2024-10-27] MEDS: Docusate Sodium 100 MG CAPSULE 200 MG PO ×2 (08:10→20:14)
[2024-10-27] MEDS: Gabapentin 400 MG CAPSULE 800 MG PO ×3 (08:10→20:14)
[2024-10-27] MEDS: Dextroamphetamine/Amphetamine XR 10 MG CAP.ER.24H 30 MG PO (08:10)
[2024-10-27] MEDS: busPIRone HCl 10 MG TABLET 30 MG PO ×3 (08:10→20:14)
[2024-10-27] MEDS: Sennosides 8.6 MG TABLET 17.2 MG PO (08:10)
[2024-10-27] MEDS: buPROPion HCl XL 150 MG TAB.ER.24H PO (08:10)
[2024-10-27] MEDS: Famotidine 20 MG TABLET PO ×2 (08:11→20:13)
[2024-10-27] MEDS: Nicotine Polacrilex 2 MG GUM 4 MG BUCCAL ×5 (08:11→20:18)
[2024-10-27] MEDS: Amoxicillin/Potassium Clav 875 MG TABLET PO (11:20)
[2024-10-27] MEDS: Albuterol Sulfate 90 MCG 8 GM INHALER 2 PUFF INHALE ×2 (11:38→17:02)
[2024-10-27] MEDS: Amphetamine Mixed Salts 20 MG TABLET 30 MG PO (14:11)
--- NOTE | 2024-10-27 17:30 | P.PNPSI_ITS ---
Subjective Subjective Date of Service: 10/27/24 Reason For Visit: Decompensation Subjective Notes: Conditional Voluntary Healthcare Proxy: No Guardianship: No Medical Problems Affecting Mental Status: No Interim History: Care discussed with pt's MD, Dr. Gao who reports pt has been very hesitant to accept residential services offered and has specific demands for housing that are not realistic or currently possible. Pt is in the [facility] system and Dr. Gao sent tw the application and [employer] which pt completed, signed and was sent back to Dr. Gao today. They are applying to a home in [facility] for pt, as the supply is less there and pt has no connections. Pt when this program was discussed with him, expressed anger, discussed why this will not work, I can just take a bus or Uber to get drugs . Angry that he is not going to be in [place] as he reports several resources there and work opportunities. Pt is back and forth on use-states he will not use again, then talking about options to use should his requests not be met. Discussed team filing a Section [address] Gao. She agrees this will provide temporary safety and will allow her time to help pt with housing however, given his history of overdoses she identifies him as being high risk in the skilled nursing. Medication Compliance: Yes Side effects from medications: No Attending Groups: Intermittent Review of Systems Acute medical concerns: No Review of Systems Review of Systems Denies today Mental Status Exam Mental Status Exam Patient Appearance: Appropriate Patient Orientation: Person, Place, Time and Situation Level of Consciousness: Awake and Appropriate Patient Behavior: Appropriate, Talkative and Good Eye Contact Mood Description: Constricted Affect Description: Constricted Patient Cognition Impaired: No Ability to Follow Directions: Good Speech Pattern: Clear Memory Description: Intact Hallucinations: None Delusions: Not Present Thought Process: Distracted and Rumination Thought Content: positive for Circumstantial Depressive Symptoms: Increased Irritability Judgement: Fair Diagnostics Vital Signs (24Hr): Vital Signs - 24 hr 10/26/24 20:00 10/27/24 08:00 Temperature 98.2 F 98 F Pulse Rate 104 H 84 Respiratory Rate 18 18 Blood Pressure 151/88 H 134/70 Pulse Oximetry 95 90 L Oxygen Delivery Method Room Air Room Air BMI result Body Mass Index 38.0 Medications Medications Current Medications Acetaminophen (Acetaminophen 325 Mg Tablet) 650 mg PO Q6H PRN PRN Reason: Headache/Pain Mild Scale (1-3) Last Admin: 10/24/24 15:46 Dose: 650 mg Al Hydroxide/Mg Hydroxide (Magnesium Hydrox/Alum Hydrox 30 Ml Oral.Susp) 30 ml PO Q6H PRN PRN Reason: Heartburn/Nausea Albuterol Sulfate (Albuterol Sulfate 90 Mcg 8 Gm Inhaler) 2 puff INHALE RQ4H PRN PRN Reason: Wheezing Last Admin: 10/27/24 17:02 Dose: 2 puff Amitriptyline HCl (Amitriptyline Hcl 25 Mg Tablet) 25 mg PO BEDTIME [facility] Last Admin: 10/26/24 20:26 Dose: 25 mg Amphetamine/Dextroamphetamine (Dextroamphetamine/Amphetamine Xr 10 Mg Cap.Er.24h) 30 mg PO DAILY [facility] Last Admin: 10/27/24 08:10 Dose: 30 mg Amphetamine/Dextroamphetamine (Amphetamine Mixed Salts 20 Mg Tablet) 30 mg PO 1400 [facility] Last Admin: 10/27/24 14:11 Dose: 30 mg Bupropion HCl (Bupropion Hcl Xl 150 Mg Tab.Er.24h) 150 mg PO DAILY [facility] Last Admin: 10/27/24 08:10 Dose: 150 mg Buspirone HCl (Buspirone Hcl 10 Mg Tablet) 30 mg PO TID [facility] Last Admin: 10/27/24 14:11 Dose: 30 mg Docusate Sodium (Docusate Sodium 100 Mg Capsule) 200 mg PO BID [facility] Last Admin: 10/27/24 08:10 Dose: 200 mg Famotidine (Famotidine 20 Mg Tablet) 20 mg PO BID [facility] Last Admin: 10/27/24 08:11 Dose: 20 mg Gabapentin (Gabapentin 400 Mg Capsule) 800 mg PO TID [facility] Last Admin: 10/27/24 14:11 Dose: 800 mg Hydroxyzine HCl (Hydroxyzine Hcl 25 Mg Tablet) 25 mg PO Q6H PRN PRN Reason: Anxiety Lactulose (Lactulose 20 Gm/30 Ml Solution) 30 gm PO DAILY [facility] Last Admin: 10/27/24 08:13 Dose: Not Given Magnesium Hydroxide (Milk Of Magnesia 30 Ml Oral.Susp) 30 ml PO DAILY PRN PRN Reason: Constipation Methadone HCl (Methadone Hcl 20 Mg/2 Ml Oral.Conc) 175 mg PO DAILY@0800 [facility] Last Admin: 10/27/24 07:43 Dose: 175 mg Multi-Ingred Cream/Lotion/Oil/Oint (Mineral Oil/Petrolatum,White 106 Gm Tube) 1 appl TOPICAL BID PRN; Protocol PRN Reason: dry skin Nicotine (Nicotine 21 Mg Patch.Td24) 21 mg TRANSDERMA DAILY PRN PRN Reason: smoking cessation Last Admin: 10/25/24 11:27 Dose: 21 mg Nicotine Polacrilex (Nicotine Polacrilex 2 Mg Gum) 4 mg BUCCAL Q2H PRN PRN Reason: Nicotine Cravings Last Admin: 10/27/24 17:01 Dose: 4 mg Ondansetron HCl (Ondansetron Odt 4 Mg Tab.Rapdis) 4 mg TRANSLINGU Q6H PRN PRN Reason: Nausea And Vomiting Polyethylene Glycol (Polyethylene Glycol 3350 17 Gm Powd.Pack) 17 gm PO BID ERNA Last Admin: 10/27/24 08:13 Dose: Not Given Prazosin HCl (Prazosin Hcl 1 Mg Capsule) 4 mg PO BEDTIME ERNA; Protocol Last Admin: 10/26/24 20:26 Dose: 4 mg Quetiapine Fumarate (Quetiapine Fumarate 300 Mg Tablet) 300 mg PO BEDTIME ERNA Last Admin: 10/26/24 20:26 Dose: 300 mg Senna (Sennosides 8.6 Mg Tablet) 17.2 mg PO DAILY ERNA Last Admin: 10/27/24 08:10 Dose: 17.2 mg Trazodone HCl (Trazodone Hcl 50 Mg Tablet) 50 mg PO BEDTIME MRX1 PRN PRN Reason: Insomnia Triamcinolone Acetonide (Triamcinolone Acet 0.1 % Cream 15 Gm Tube) 1 appl TOPICAL BID ERNA; Protocol Last Admin: 10/27/24 08:13 Dose: Not Given Zolpidem Tartrate (Zolpidem Tartrate 5 Mg Tablet) 10 mg PO BEDTIME PRN PRN Reason: Insomnia Last Admin: 10/26/24 20:27 Dose: 10 mg Allergies Allergies Allergy/AdvReac Type Severity Reaction Status Date / Time haloperidol [From HALDOL] AdvReac Intermediate LOCK JAW Verified 10/09/24 15:16 olanzapine [From ZYPREXA] AdvReac Unknown PT REPORTS Verified 10/09/24 15:16 FEELS LIKE I AM ON AN ACID TRIP Assessment & Plan Assessment & Plan (1) MDD (major depressive disorder), recurrent episode, moderate: Status: Acute Code(s): F33.1 - Major depressive disorder, recurrent, moderate (2) ADHD (attention deficit hyperactivity disorder): Status: Acute Code(s): F90.9 - Attention-deficit hyperactivity disorder, unspecified type (3) Opioid use disorder, severe, dependence: Status: Acute Code(s): F11.20 - Opioid dependence, uncomplicated (4) Pneumonia: Status: Acute Code(s): J18.9 - Pneumonia, unspecified organism Plan Pt currently doing well on current regimen. Recovering physically from pneumonia. Readmit with previous treatment plan in place and no changes. Dispo planning already initiated and eager for discharge Friday10/25/24. 10/24: no changes. Eager for discharge tomorrow 10/26: Will file Section 35 on 10/28. 10/27: Continue regime. Continue plan with Section 35 Dr. Gao has application and [employer] for housing for pt. She will submit this today. Reason for continued inpatient stay Substantial Risk for: rapid decompensation Time Spent With Patient Time: Total time managing care of this patient today ____ minutes.
[2024-10-27 20:00] VITALS: BP 145/98; PULSE 93; RESP 18; TEMP 36.9; O2SAT 94
[2024-10-27] MEDS: Prazosin HCL 1 MG CAPSULE 4 MG PO (20:14)
[2024-10-27] MEDS: Amitriptyline HCl 25 MG TABLET PO (20:14)
[2024-10-27] MEDS: Zolpidem Tartrate 5 MG TABLET 10 MG PO (20:14)
[2024-10-27] MEDS: QUEtiapine Fumarate 300 MG TABLET PO (20:14)
[2024-10-28] MEDS: methADONE HCl 20 MG/2 ML ORAL.CONC 175 MG PO (07:45)
[2024-10-28 08:00] VITALS: BP 138/89; PULSE 91; RESP 16; TEMP 36.5; O2SAT 96
[2024-10-28] MEDS: Famotidine 20 MG TABLET PO (09:27)
[2024-10-28] MEDS: busPIRone HCl 10 MG TABLET 30 MG PO (09:27)
[2024-10-28] MEDS: buPROPion HCl XL 150 MG TAB.ER.24H PO (09:27)
[2024-10-28] MEDS: Docusate Sodium 100 MG CAPSULE 200 MG PO (09:27)
[2024-10-28] MEDS: Dextroamphetamine/Amphetamine XR 10 MG CAP.ER.24H 30 MG PO (09:27)
[2024-10-28] MEDS: Sennosides 8.6 MG TABLET 17.2 MG PO (09:27)
[2024-10-28] MEDS: Gabapentin 400 MG CAPSULE 800 MG PO (09:27)
[2024-10-28] MEDS: Nicotine Polacrilex 2 MG GUM 4 MG BUCCAL ×2 (10:01→12:13)
--- NOTE | 2024-11-30 11:34 | P.DS_ITS ---
DS: Providers Provider Date of Service: 10/28/24 Date of admission: 10/22/24 12:50 Date of discharge: 10/28/24 Primary care physician: Unknown Physician Admitting clinician: James Arguelles Attending physician on admission: James Arguelles Attending physician on discharge: Jeff Brewer Discharging clinician: Kaylynn Crook DS: Diagnosis Discharge Diagnosis (1) MDD (major depressive disorder), recurrent episode, moderate: Status: Acute (2) ADHD (attention deficit hyperactivity disorder): Status: Acute (3) Opioid use disorder, severe, dependence: Status: Acute (4) Pneumonia: Status: Resolved DS: Medications Discharge Medications Home Medications: Previous Rx's ?Medication ?Instructions ?Recorded acetaminophen 325 mg tablet 650 mg (2 x 325 mg) PO Q6H PRN 10/20/24 Pain 1-10 #0 tabs albuterol sulfate 90 mcg/actuation 2 puff inhalation RQ4H PRN 10/20/24 aerosol inhaler (Ventolin HFA) Wheezing #0 grams amitriptyline 25 mg tablet 25 mg PO BEDTIME #0 tabs 10/20/24 bupropion HCl 150 mg 24 hr tablet, 150 mg PO DAILY #0 tabs 10/20/24 extended release buspirone 10 mg tablet 30 mg (3 x 10 mg) PO TID #0 tabs 10/20/24 dextroamphetamine-amphetamine 20 30 mg (1.5 x 20 mg) PO 1400 #0 tabs 10/20/24 mg tablet dextroamphetamine-amphetamine ER 30 mg (3 x 10 mg) PO DAILY #0 caps 10/20/24 10 mg 24hr capsule,extend release (Adderall XR) docusate sodium 100 mg capsule 200 mg (2 x 100 mg) PO BID #0 caps 10/20/24 famotidine 20 mg tablet 20 mg PO BID #0 tabs 10/20/24 gabapentin 400 mg capsule 800 mg (2 x 400 mg) PO TID #0 caps 10/20/24 magnesium hydroxide 400 mg/5 mL 30 ml PO DAILY PRN 10/20/24 oral suspension (Milk of Magnesia) Constipation,severe #0 mL methadone 10 mg/mL oral 175 mg (17.5 mL) PO DAILY@0800 #0 10/20/24 concentrate (Methadose) mL naloxone 4 mg/actuation nasal 4 mg intranasal Q2M PRN opioid 10/20/24 spray (Narcan) overdose #2 ea nicotine (polacrilex) 2 mg gum 4 mg buccal Q2H PRN Nicotine 10/20/24 Cravings #0 ea ondansetron 4 mg disintegrating 4 mg translingual Q6H PRN Nausea 10/20/24 tablet And Vomiting #0 tabs polyethylene glycol 3350 17 gram 17 g PO BID #0 ea 10/20/24 oral powder packet prazosin 1 mg capsule 4 mg PO BEDTIME #0 caps 10/20/24 triamcinolone acetonide 0.1 % 1 appl topical BID #0 grams 10/20/24 topical cream white petrolatum-mineral oil 1 appl topical BID #0 grams 10/20/24 topical cream (Dermacerin topical cream) zolpidem 5 mg tablet 10 mg (2 x 5 mg) PO BEDTIME PRN 10/20/24 Insomnia #0 tabs sennosides 8.6 mg tablet (Senna 17.2 mg (2 x 8.6 mg) PO DAILY #60 10/22/24 Lax) tabs nicotine (polacrilex) 2 mg gum 4 mg buccal Q2H PRN Nicotine 10/28/24 Cravings #0 ea nicotine 21 mg/24 hr daily 21 mg transdermal DAILY PRN 10/28/24 transdermal patch smoking cessation #0 ea quetiapine 300 mg tablet 300 mg PO BEDTIME #0 tabs 10/28/24 Mental Status Exam Mental Status Exam Patient Appearance: Appropriate Patient Orientation: Person, Place, Time and Situation Level of Consciousness: Awake and Appropriate Patient Behavior: Appropriate, Talkative and Good Eye Contact Mood Description: Constricted Affect Description: Constricted Patient Cognition Impaired: No Ability to Follow Directions: Good Speech Pattern: Clear Memory Description: Intact Hallucinations: None Delusions: Not Present Thought Process: Distracted and Rumination Thought Content: positive for Circumstantial Depressive Symptoms: Increased Irritability Judgement: Fair DS: Summary Hospital Course Hospital Course: Admission to adult psychiatry s/p OD heroin/fentanyl requiring Narcan. Treatment initiated. Pt transferred to medicine 10/20-10/22 for treatment of pneumonia/ constipation. Pt returned to psychiatry, Section 35 filed which was approved by the court. Pt discharged to [facility] for further treatment. Status at Discharge Functional status at discharge: independent ambulation Overall status at discharge: patient is progressing back to baseline Time Spent with Patient Time attestation: Total time managing care of this patient today ____ minutes. Time spent: Less than 30 minutes Discharge Plan Discharge Anticipated Discharge Date/Time: 10/28/24 12:00 Patient Disposition: [facility] Discharge Diagnosis: MDD, recurrent, severe w/out psychosis, in partial remission Referrals: [facility] [Other] - 1 Week (Penitentiary resource ) [facility]: [facility] [Other] - 1 Week (Penitentiary resource Patient must self present by 5 pm to complete intake to determine if alf placement is available.) [facility] [Other] - 1 Week (Penitentiary Resources Patient must call daily at 8:00 am to determine if there is an available alf placement ) [facility] [Other] - 1 Week (Penitentiary resources ) [facility] [Other] - 1 Week (Patient may call or self-present to this agency to seek support in accessing alf services Hours 8:00 am-3:30 pm) Physician,Unknown J [Primary Care Provider] - 1 Week Discharge Medications: New quetiapine 300 mg Tablet 300 mg PO BEDTIME Qty: 0 0RF nicotine (polacrilex) 2 mg Gum 4 mg buccal Q2H PRN (Reason: Nicotine Cravings) Qty: 0 0RF nicotine 21 mg/24 hr Patch 24 Hour 21 mg transdermal DAILY PRN (Reason: smoking cessation) Qty: 0 0RF Continued acetaminophen 325 mg Tablet 650 mg PO Q6H PRN (Reason: Pain 1-10) Qty: 0 0RF nicotine (polacrilex) 2 mg Gum 4 mg buccal Q2H PRN (Reason: Nicotine Cravings) Qty: 0 0RF prazosin 1 mg Capsule 4 mg PO BEDTIME Qty: 0 0RF Protocol: Hold for SBP< HOLD for SBP < : 90 gabapentin 400 mg Capsule 800 mg PO TID Qty: 0 0RF famotidine 20 mg Tablet 20 mg PO BID Qty: 0 0RF amitriptyline 25 mg Tablet 25 mg PO BEDTIME Qty: 0 0RF magnesium hydroxide [Milk of Magnesia] 400 mg/5 mL Suspension 30 ml PO DAILY PRN (Reason: Constipation,severe) Qty: 0 0RF buspirone 10 mg Tablet 30 mg PO TID Qty: 0 0RF dextroamphetamine-amphetamine 20 mg Tablet 30 mg PO 1400 Qty: 0 0RF Rx Instructions: Partial Fill upon patient request. docusate sodium 100 mg Capsule 200 mg PO BID Qty: 0 0RF dextroamphetamine-amphetamine [Adderall XR] 10 mg Capsule,Extended Release 24hr 30 mg PO DAILY Qty: 0 0RF Rx Instructions: Partial Fill upon patient request. zolpidem 5 mg Tablet 10 mg PO BEDTIME PRN (Reason: Insomnia) Qty: 0 0RF methadone [Methadose] 10 mg/mL Concentrate 175 mg PO DAILY@0800 Qty: 0 0RF Rx Instructions: Partial Fill upon patient request. albuterol sulfate [Ventolin HFA] 90 mcg/actuation Hfa Aerosol Inhaler 2 puff inhalation RQ4H PRN (Reason: Wheezing) Qty: 0 0RF bupropion HCl 150 mg Tablet Extended Release 24 Hr 150 mg PO DAILY Qty: 0 0RF polyethylene glycol 3350 17 gram Powder In Packet 17 g PO BID Qty: 0 0RF triamcinolone acetonide 0.1 % Cream 1 appl topical BID Qty: 0 0RF Protocol: Apply to: Apply to: face ondansetron 4 mg Tablet,Disintegrating 4 mg translingual Q6H PRN (Reason: Nausea And Vomiting) Qty: 0 0RF Dermacerin Cream 1 appl topical BID Qty: 0 0RF Protocol: Apply to: Apply to: affected areas naloxone [Narcan] 4 mg/actuation spray,non-aerosol 4 mg intranasal Q2M PRN (Reason: opioid overdose) Qty: 2 0RF Rx Instructions: spray 1 dose into ONE nostril; alternate nostrils w each dose until help arrives sennosides [Senna Lax] 8.6 mg Tablet 17.2 mg PO DAILY Qty: 60 0RF Discontinued quetiapine 200 mg Tablet 200 mg PO BEDTIME Qty: 0 0RF MAG-AL 200-200 mg/5 mL Suspension 30 ml PO Q6H PRN (Reason: Heartburn/Nausea) Qty: 0 0RF lactulose 20 gram/30 mL Solution 30 g PO DAILY Qty: 0 0RF amoxicillin-pot clavulanate 875-125 mg Tablet 1 tab PO Q12H Qty: 10 0RF Discharge Orders: Discharge Order (Routine); Ordered 10/28/24 Ordered By: Phuc Dougherty Diet: Regular diet Activity on Discharge: As tolerated Stand Alone Forms: Patient Portal Discharge page, Community Support Print Language: [place] Care Plan Goals: Maintain mood and safe behaviors Take medications as prescribed Continue to pursue sobriety Practice coping skills Continue with outpatient providers and reach out to them as needed Health Concerns: Mood stability and behaviors Sobriety Plan of Treatment: Follow up with your PCP, psychiatric provider and other outpatient providers regarding above concerns Take medications as prescribed Dr. Gao has submitted your [employer] application for housing that you completed ton 10/27/24. Assessment: Risk assessment at time of discharge:? Patient was interviewed prior to discharge and found to be fully oriented; denies SI/HI. Discharge Date/Time: 10/28/24 12:15
== END 2024-10-28 12:15 | disposition home or self-care (01) | DRG 751 ==
PROVIDERS: Admitting Provider Psychiatry & Neurology Psychiatry; Visit Provider Clinical Nurse Specialist Psychiatric/Mental Health, Adult
DX: F33.1 Major depressive disorder, recurrent, moderate (principal); J18.9 Pneumonia, unspecified organism; F11.20 Opioid dependence, uncomplicated; F90.9 Attention-deficit hyperactivity disorder, unspecified type; Z59.01 Sheltered homelessness; Z87.891 Personal history of nicotine dependence; Z79.899 Other long term (current) drug therapy

== ENCOUNTER → 2024-10-22 12:50 | Outpatient (BNV) | payer OTHER, SELFPAY | PROVIDERS: Admitting Provider Psychiatry & Neurology Psychiatry; Visit Provider Psychiatry & Neurology Psychiatry | DX: F33.1 Major depressive disorder, recurrent, moderate (principal); F90.9 Attention-deficit hyperactivity disorder, unspecified type; F11.20 Opioid dependence, uncomplicated; J18.9 Pneumonia, unspecified organism | CPT/HCPCS: 99231; 99232 ==